=== PATIENT | female | born 1960 | race Caucasian/White ===

== ENCOUNTER → 2018-04-29 07:36 | Outpatient (CLI) | payer OTHER, SELFPAY ==
[2018-04-29 07:58] LABS: Absolute Lymphocyte Count 3.43 X10^3/ul (0.83-4.51); Basophil# 0.04 X10^3/uL; Basophil% 0.4 % (0-1); Eosinophil# 0.15 X10^3/uL; Eosinophils% 1.6 % (0-5); Hematocrit 39.5 % (37-47); Hemoglobin 12.9 g/dl (12.0-15.0); Lymphocyte # 3.43 X10^3/ul (4.0); Lymphocyte % 36.4 % (19-41); Mean Corp Hgb Conc 32.7 g/gl (32-36); Mean Corpuscular Hgb 30.3 pg (27.0-32.0); Mean Corpuscular Volume 92.7 fL (81-99); Mean Platelet Vol. 9.6 fl (6.2-12.0); Monocyte# 0.73 X10^3/uL; Monocyte% 7.7 % (0-10); Neutrophil # 5.04 X10^3/uL (2.7-7.7); Neutrophil % 53.6 % (47-70); Platelet Count 284 K/mm3 (150-450); RBC Distribution Width CV 12.3 % (11.6-14.6); RBC Distribution Width SD 40.8 fl (35.1-43.9); Red Blood Count 4.26 M/mm3 (4.2-5.4); White Blood Count 9.4 K/mm3 (4.4-11.0)
[2018-04-29 07:59] LABS: POSITIVE COUNT NO; POSITIVE DIFFERENTIAL NO; POSITIVE MORPHOLOGY NO
[2018-04-29 08:17] LABS: Hemoglobin A1c 7.4 % (4.2-6.3)
[2018-04-29 08:30] LABS: ALB/GLOB Ratio 0.8 RATIO (0.9-2.4); AST(SGOT) 18 U/L (15-37); Alanine Aminotransfer ALT/SGPT 39 U/L (13-56); Albumin, Serum 3.4 g/dL (3.2-5.0); Alkaline Phosphatase 90 U/L (45-117); Anion Gap 5 (5-15); BUN 17 mg/dL (7-18); BUN/Creat Ratio 14.9 RATIO (10-20); Calcium,Total 8.7 mg/dL (8.5-10.1); Chloride 106 mmol/L (98-107); Cholesterol 201 mg/dL (200); Creatinine, Serum 1.14 mg/dL (0.55-1.02); EST Glomerular Filtration Rate 52 mL/min (>60); Est Glom Filt Rate - Afr Amer 63 mL/min (>60); Estradiol 15.6 pg/mL; Globulin 4.1 g/dL (2.2-4.2); Glucose 159 mg/dL (74-106); High Density Lipoprotein 41 mg/dL; Potassium 4.5 mmol/L (3.5-5.1); Protein, Total 7.5 g/dL (6.4-8.2); Sodium Level 140 mmol/L (136-145); Triglycerides 283 mg/dL; Very Low Density Lipoprotein 57 mg/dL (5-40)
== END ==
PROVIDERS: Visit Provider Family Medicine
DX: I10 Essential (primary) hypertension (principal); E11.9 Type 2 diabetes mellitus without complications; R68.82 Decreased libido
CPT/HCPCS: 36415; 80053; 80061; 82670; 83036; 84443; 85025

== ENCOUNTER 2021-11-08 17:05 | Emergency (ER) | payer BC, SELFPAY ==
[2021-11-08 17:06] VITALS: BP 157/89; PULSE 93; RESP 16; TEMP 35.8; O2SAT 98; BMI 35.4
--- NOTE | 2021-11-08 18:06 | RAD_ITS ---
STUDY: X-RAY - LEFT FOOT CLINICAL: Female, 61 years old. Pain after trauma TECHNIQUE: 3 view(s) of the foot. COMPARISON: None. FINDINGS: Please see the impression. RAD/Foot min 3 Views IMPRESSION: No acute fracture or dislocation the left foot. Advanced osteoarthritis of the first MTP joint. Minimal distal Achilles enthesopathy. No radiopaque foreign body. Electronically Signed: Solo Burks MD at 19:10 EST ,
--- NOTE | 2021-11-08 18:35 | ED.VIS.LOWEX ---
HPI History of Present Illness Chief Complaint: Lower Extremity Injury Informant: patient Occured/Mechanism Mechanism/Context: Yes blunt trauma Onset/Context/Timing Onset: Today Context: Sudden Onset Quality of Pain: Sharp Current Severity: Mild Maximum Severity: Mild Associated Symptoms Associated Symptoms: Negative for Parasthesia, Weakness and Loss of Funtion Narrative Narrative: 61-year-old female was caring for her horse when it stepped on her left foot. Complaining of pain primarily the great toe. Has had prior surgeries to this foot and came in to have it evaluated. Prior similar symptoms: No Recent Illness/Hospitalization: No PFSH PFSH Medical History Depression Diabetes Hypertension Home Medications glimepiride 1 tab PO 0800 11/29/15 [History Last Taken Unknown] glimepiride [Amaryl] 1.5 tab PO DINNER 11/29/15 [History Last Taken Unknown] losartan 50 mg PO DAILY 11/29/15 [History Last Taken Unknown] metformin 1,000 mg PO BIDCM 11/29/15 [History Last Taken Unknown] metoprolol tartrate 25 mg PO BID #90 tablet 12/01/15 [Rx Last Taken Unknown] duloxetine 60 mg PO DAILY 11/08/21 [History Last Taken Unknown] Allergy/AdvReac Type Severity Reaction Status Date / Time levofloxacin [From Levaquin] Allergy Other Verified 11/08/21 17:06 ANTIBIOTICS AdvReac Other Uncoded 11/08/21 17:06 Social History Smoking Status: Never smoker ROS ROS ED ROS Narrative No recent illness. Review of Systems ROS Unobtainable: Denies due to encephalopathy Constitutional Constitutional ED: Denies fever(s) Eyes Eyes: Denies change in vision ENT ENT ED: Denies ear pain Cardiovascular Cardiovascular: Denies chest pain Respiratory/Chest Respiratory/Chest: Denies dyspnea Gastrointestinal Gastrointestinal: Denies abdominal pain Genitourinary Genitourinary ED: Denies dysuria Musculoskeletal Musculoskeletal: Denies myalgias Integumentary Denies rash Neurologic Neurologic: Denies headache(s) Psychiatric Psychiatric: Denies depression Endocrine Endocrinology: Denies polyuria Hematologic/Lymphatic Hematologic/Lymphatic: Denies easy bruising Allergic/Immunologic Allergic/Immunologic ED: Denies urticaria EXAM Physical Exam Narrative Exam Narrative: 61-year-old no acute distress vital signs stable afebrile. Exam normal except left foot is intact fusion to the left great toe. She is able to wiggle her toes. Normal touch sensation. Normal DP pulse. No gross bony deformity. Skins intact. No lacerations. Const Vital Signs: 11/08/21 17:06 Temperature 96.5 F L Temperature Source Temporal Pulse Rate 93 Respiratory Rate 16 Blood Pressure 157/89 H Blood Pressure Mean 111 Pulse Ox 98 Oxygen Delivery Method Room Air Positive well nourished and well developed; Negative for obese, cachectic, contractures or unkempt General Appearance ED: well developed and NAD; Negative for unkempt, cachectic or contractures Nutritional Appearance: Negative for cachectic or obese HEENT Reports moist mucous membranes normocephalic and atraumatic Eyes PERRL Neck full ROM and supple Thyroid: Negative for tender Chest Wall inspection of chest normal and palpation of chest normal Resp normal respiratory effort, no retractions and clear to auscultation bilaterally Auscultation: Negative for rales, rhonchi or wheezes Cardio regular rate, regular rhythm, S1 normal heart sound, S2 normal heart sound and no murmurs GI non-tender, non-distended and no masses Auscultation: normoactive bowel sounds Palpation: soft; Negative for tender or guarding Back/Spine no CVA tenderness General Back: Negative for CVA tenderness Cervical Spine: Negative for cervical spine tenderness Thoracic Spine / Upper Back: Negative for thoracic spinal tenderness Lumbar Spine / Lower Back: Negative for lumbar spinal tenderness or straight leg raise negative bilaterally Extremity normal to inspection and full ROM Extremity Narrative: Left foot tenderness great toe. Contusion. No gross bony deformity. Normal DP pulse. Skin intact. General Extremety ED: Negative for cyanosis or edema General Extremity: Negative for cyanosis or edema Neuro oriented x3 and moves all extremities Sensorium / Orientation: alert, oriented to person, oriented to place and oriented to time; Negative for orientation impaired, confused, lethargic or stuporous Motor Exam: strength 5/5 throughout Psych mental status grossly normal Appearance: Negative for unkempt Skin no wounds Lesions: no lesions Rashes: no rashes Trauma: Negative for laceration MDM MDM MDM Narrative Medical decision making narrative: Left foot versus worse. X-ray unremarkable. Discharged home. Ice and elevate. Radiography Diagnostic Testing: Left x-ray, 3 views, interpreted by myself shows no acute abnormality. No fracture or dislocation. Discussed and went over the films with the patient. Discharge Plan Triage Chief Complaint: Lower Extremity Injury ED Provider: Enrique Olivia Dx/Rx/DC Orders Clinical Impression: Contusion of foot, left, History of diabetes mellitus Instructions: ED Foot Contusion Prescriptions: No Action losartan 50 MG tablet 50 mg PO DAILY RF: 0 glimepiride 1 MG tablet 1 tab PO 0800 RF: 0 glimepiride [Amaryl] 1 MG tablet 1.5 tab PO DINNER RF: 0 metformin 1,000 MG tablet 1,000 mg PO BIDCM RF: 0 metoprolol tartrate 25 MG tablet 25 mg PO BID Qty: 90 RF: 0 duloxetine 60 mg capsule,delayed release(DR/EC) 60 mg PO DAILY RF: 0 Primary Care Provider: Emile Esposito Referrals: Emile Esposito MD [Primary Care Provider] - 1 Week if not improving Activity Restrictions/Additional Instructions: Ice and elevate left foot to decrease pain and swelling. Motrin for pain and swelling and Tylenol for pain. This should progressively improve if not getting better follow-up with your doctor to have her reevaluated. Disposition Disposition: Home, Self Care
--- NOTE | 2021-11-08 19:10 | ED.RN ---
GAVE SOCKS TO PT.
== END 2021-11-08 19:10 | disposition home or self-care (01) ==
PROVIDERS: Emergency Provider Emergency Medicine; PCP Family Medicine; Visit Provider Emergency Medicine
DX: S90.32XA Contusion of left foot, initial encounter (principal); E11.9 Type 2 diabetes mellitus without complications; I10 Essential (primary) hypertension; W55.12XA Struck by horse, initial encounter; Z79.899 Other long term (current) drug therapy; Z79.84 Long term (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 of oral hypoglycemic drugs
CPT/HCPCS: 73630; 99282

== ENCOUNTER 2022-05-17 17:09 | Inpatient (IN) | payer BC, SELFPAY ==
[2022-05-17] VITALS (17 sets, daily range): BP systolic 87–167; BP diastolic 51–140; PULSE 95–162; RESP 19–25; TEMP 36.5–36.9; O2SAT 96–99; BMI 37.2; BMI 35.9
--- NOTE | 2022-05-17 17:41 | EKG12_ITS ---
Test Reason : PALPITATIONS Blood Pressure : / mmHG Vent. Rate : 154 BPM Atrial Rate : 000 BPM P-R Int : 000 ms QRS Dur : 086 ms QT Int : 246 ms P-R-T Axes : 000 -37 087 degrees QTc Int : 394 ms Atrial fibrillation with rapid ventricular response Left axis deviation Moderate voltage criteria for LVH, may be normal variant ( R in aVL , Glouster product ) Possible Anterior infarct , age undetermined Abnormal ECG Confirmed by SANJU MEEHAN, ARIE ([id number]), make up editor GABRIEL DURHAM ([id number]) on 05/18/2022 9:51:07 AM Referred By: SHERRY Confirmed By:ARIE BILLS MD
--- NOTE | 2022-05-17 17:43 | EDS_ITS ---
HPI History of Present Illness Chief Complaint: Palpitations Informant: patient Narrative Narrative: 3-year-old female presenting to the emergency room with chief complaint of tachycardia. Patient states that for the past several days she has been dealing with her allergies. She has been using some Primatene mist. She states that she is noticed that she has had more fatigue and difficulty climbing stairs with shortness of breath. Tonight she checked her pulse and pulse oximeter and her heart rate was variable and very fast. She has no history of atrial fibrillation. She notes a history of hypertension and diabetes. No syncope. She states that she recently had blood work done as part of her physical and everything seemed fine. [facility] Medical History Depression Diabetes Hypertension Home Medications glimepiride 1 mg tablet 1 tab PO BID 11/29/15 [History Last Taken Unknown] losartan 50 mg tablet 100 mg PO DAILY 11/29/15 [History Last Taken Unknown] duloxetine 60 mg capsule,delayed release 120 mg PO DAILY 11/08/21 [History Last Taken Unknown] sitagliptin 50 mg-metformin ER 1,000 mg tablet,extended release 24h mp (Janumet XR) 1 tab PO DAILY 05/17/22 [History Last Taken Unknown] trazodone 100 mg tablet 100 mg PO DAILY 05/17/22 [History Last Taken Unknown] triamterene 37.5 mg-hydrochlorothiazide 25 mg tablet 1 tab PO DAILY 05/17/22 [History Last Taken Unknown] Allergy/AdvReac Type Severity Reaction Status Date / Time levofloxacin [From Levaquin] Allergy Other Verified 05/17/22 17:09 ANTIBIOTICS AdvReac Other Uncoded 05/17/22 17:09 Social History (Updated 05/17/22 @ 17:[address] Angel Melendrez DO) Smoking Status: Never smoker substance use type: does not use ROS ROS ED Constitutional Constitutional ED: Denies chills or weight loss Eyes Eyes: Denies change in vision or diplopia ENT ENT ED: Reports rhinorrhea; Denies ear pain or sore throat Cardiovascular Cardiovascular: Denies chest pain, orthopnea, palpitations or racing heartbeat Respiratory/Chest Respiratory/Chest: Reports cough, dyspnea and dyspnea on exertion; Denies orthopnea Gastrointestinal Gastrointestinal: Denies abdominal pain, diarrhea, nausea or vomiting Genitourinary Genitourinary ED: Denies dysuria, hematuria or urinary frequency Musculoskeletal Musculoskeletal: Denies arthralgias or myalgias Integumentary Denies abscess or rash Neurologic Neurologic: Denies headache(s) or weakness Psychiatric Psychiatric: Denies anxiety, depression, suicidal ideation or suicidal thoughts Endocrine Endocrinology: Denies polydipsia, polyphagia or polyuria Allergic/Immunologic Allergic/Immunologic ED: Denies mouth swelling, tongue swelling or urticaria EXAM Physical Exam Const Vital Signs: 05/17/22 17:09 05/17/22 17:23 05/17/22 18:04 Temperature 98.5 F Temperature Source Temporal Pulse Rate 162 H 114 H Respiratory Rate 25 H 21 H Respiratory Effort Short of Breath Blood Pressure 124/92 H 113/80 Blood Pressure Mean 102 91 Pulse Ox 99 97 Oxygen Delivery Method Room Air Room Air 05/17/22 18:15 Temperature 98.5 F Temperature Source Temporal Pulse Rate 114 H Respiratory Rate 21 H Respiratory Effort Blood Pressure 113/80 Blood Pressure Mean 91 Pulse Ox 97 Oxygen Delivery Method Room Air Positive well nourished, well developed and obese General Appearance ED: well developed Nutritional Appearance: obese HEENT Reports normocephalic, head/scalp atraumatic and moist mucous membranes Eyes PERRL and EOMs intact bilaterally Neck no lymphadenopathy, supple and no JVD Resp normal respiratory effort and clear to auscultation bilaterally Cardio no murmurs Rate: tachycardic Rhythm: abnormal rhythm irregularly irregular GI normal to inspection, nondistended, normoactive bowel sounds and non-tender Palpation: soft Back/Spine no CVA tenderness and normal ROM Extremity normal to inspection General Extremety ED: Negative for edema General Extremity: Negative for edema Neuro oriented x3 and CN's II-XII intact bilaterally Sensorium / Orientation: alert Motor Exam: strength 5/5 throughout Psych mental status grossly normal Mood & Affect: Negative for depressed or tearful Skin no rashes or lesions noted and no wounds MDM MDM MDM Narrative Medical decision making narrative: Patient was placed on Cardizem drip given aspirin and Lovenox. She has been responding well to the Cardizem. My impression of the chest x-ray is cardiomegaly. Otherwise no acute process. Hemoglobin 12.2. Normal coags. TSH 1.15. Troponin is 43. Glucose significantly elevated at 309 with creatinine of 1.6. Plan is admission into hospital for further management. Lab Data Attestation: I reviewed the patient's lab results. Labs: Laboratory Results - last 24 hr 05/17/22 05/17/22 05/17/22 17:22 17:22 17:22 WBC 10.7 RBC 3.94 L Hgb 12.2 Hct 38.1 MCV 96.7 MCH 31.0 MCHC 32.0 RDW Std Deviation 44.8 H RDW Coeff of Patricia 12.9 Plt Count 331 MPV 9.6 Immature Gran % (Auto) 0.200 Neut % (Auto) 67.8 Lymph % (Auto) 22.8 [place] % (Auto) 7.9 Eos % (Auto) 0.7 Baso % (Auto) 0.6 Absolute Neuts (auto) 7.3 Absolute Lymphs (auto) 2.44 Nucleated RBC % 0 PT 14.4 INR 1.2 APTT 34.5 Sodium 136 Potassium 4.4 Chloride 101 Carbon Dioxide 28.0 Anion Gap 7 BUN 25 H Creatinine 1.60 H Estim Creat Clear Calc 30.93 Est GFR (MDRD) Af Amer 42 L Est GFR (MDRD) Non-Af 35 L BUN/Creatinine Ratio 15.6 Glucose 309 H Calcium 8.9 Magnesium 1.8 Total Bilirubin 0.30 AST 21 ALT 40 Alkaline Phosphatase 87 Troponin I High Sens 43 Total Protein 7.3 Albumin 3.4 Globulin 3.9 Albumin/Globulin Ratio 0.9 TSH 1.15 Radiography Diagnostic Testing: Clinical Impression(s) from Imaging Studies Chest X-Ray 05/17/22 17:51 IMPRESSION: Cardiac enlargement. No focal infiltrate or edema. Electronically Signed: Gunner Harmon MD at 18:10 EDT , EKG Initial EKG: Attestation: I personally reviewed and interpreted this EKG as follows: Comments: Atrial fibrillation with rapid ventricular response at a rate of 154 bpm Discharge Plan Dx/Rx/DC Orders Clinical Impression: Hypertension, Type II diabetes mellitus, Atrial fibrillation, new onset Disposition Disposition: Acute Care [facility]
--- NOTE | 2022-05-17 17:51 | RAD_ITS ---
STUDY: X-RAY CHEST REASON FOR EXAM: Female, 61 years old. Chest pain TECHNIQUE: Single AP portable view of the chest. COMPARISON: November 29, 2015 FINDINGS: The lungs are clear and expanded. There is no demonstrated pleural abnormality. There is mild cardiac enlargement. Normal mediastinum and yoel. Normal visualized pulmonary arteries. Normal visualized aortic arch and descending thoracic aorta. Normal visualized thoracic spine. There is degenerative osteoarthritis of the bilateral shoulders. There is no demonstrated abnormality of the visualized soft tissue structures of the upper abdomen. RAD/Chest 1 View (Portable) IMPRESSION: Cardiac enlargement. No focal infiltrate or edema. Electronically Signed: Gunner Harmon MD at 18:10 EDT ,
[2022-05-17 17:52] LABS: Absolute Lymphocyte Count 2.44 X10^3/uL (0.83-4.51); Absolute Neutrophil Count 7.3 X10^3/uL (2.0-7.7); Basophil# 0.06 X10^3/uL; Basophil% 0.6 % (0-1); Eosinophil# 0.08 X10^3/uL; Eosinophils% 0.7 % (0-5); Hematocrit 38.1 % (37-47); Hemoglobin 12.2 g/dL (12.0-15.0); Lymphocyte # 2.44 X10^3/ul (0.83-4.51); Lymphocyte % 22.8 % (19-41); Mean Corpuscular Volume 96.7 fL (81-99); Mean Platelet Vol. 9.6 fl (6.2-12.0); Monocyte# 0.85 X10^3/uL; Monocyte% 7.9 % (0-10); NRBC Flagged by Analyzer 0 % (0-5); Neutrophil # 7.27 X10^3/uL (2.7-7.7); Neutrophil % 67.8 % (47-70); Platelet Count 331 K/mm3 (150-450); RBC Distribution Width CV 12.9 % (11.6-14.6); RBC Distribution Width SD 44.8 fl (35.1-43.9); Red Blood Count 3.94 M/mm3 (4.2-5.4); White Blood Count 10.7 K/mm3 (4.4-11.0)
[2022-05-17] MEDS: dilTIAZem 25 MG/5 ML Vial 10 MG IV BOLUS (17:58)
[2022-05-17] MEDS: Enoxaparin 100 MG/ML Syringe SC (17:58)
[2022-05-17] MEDS: Aspirin 325 MG Tablet PO (17:58)
[2022-05-17 17:59] LABS: International Normalized Ratio 1.2; Prothrombin Time (Protime)PT. 14.4 SECONDS (11.7-14.9)
[2022-05-17 18:00] LABS: Partial Thromboplast Time 34.5 Seconds (24.1-36.2)
--- NOTE | 2022-05-17 18:15 | PCM.HP.STD ---
HPI - General General Date of Admission: 05/17/22 Date of Service: 05/17/22 Chief Complaint: Racing heart/palpitations. HPI Narrative The patient is a 61 y/o F w/ PMHx: CKD stage III, Obesity, Depression and Anxiety, Diabetes mellitus type II, Migraine headaches, Prior episodes sinus tachycardia who presents to the [facility] ED on 05/17/22 with history of racing heart rates with palpitations reportedly over the last several days with significant allergies recently with utilization of Primatene Mist with increased fatigue as well as shortness of breath noted more so when she is trying to exert her self with self pulse ox and oximeter check prior to ED presentation with significantly variable and fast heart rate with prior history as noted above to sinus tachycardia but no prior atrial fibrillation with recent outpatient annual physical with reportedly normal labs and evaluation however given this was not improving and new prompted ED evaluation. Patient denies any dizziness/lightheadedness/presyncopal type symptoms port associated midsternal chest pressure without radiation, describing it as if something was sitting on her chest rated in severity 8 out of 10 when her heart was racing more aggressively, improved now down to 4 out of 10 with no associated diaphoresis, dyspnea, nausea or emesis. She denies any recent fever, chills, headaches, body aches/myalgias, nausea, emesis, diarrhea but does state recent congestion and sinus type issues with her allergies. Work-up in the ED included T98.5, heart rate 162, BP 124/92, respiratory rate 25, 99% on room air, CBC with WC 10.7, hemoglobin 12.2, platelet 331 without marked shift, coags unremarkable, CMP with BUN/creat 25/1.60, glucose 309 otherwise unremarkable, magnesium 1.8, troponin 43, TSH 1.15, chest x-ray with cardiac enlargement with no other acute cardiopulmonary finding, EKG atrial fibrillation with RVR. In the ED patient ministered aspirin 325 mg p.o. x1, Cardizem 10 mg IV bolus eventually followed by initiation of Cardizem drip as well as Lovenox 100 mg subcu x1. [facility] Medical History (Updated 05/17/22 @ 19:[address] Nathaly Muniz MD) Atrial fibrillation, new onset HLD (hyperlipidemia) Hypertension Migraine headache Obesity Type II diabetes mellitus Home Medications glimepiride 1 mg tablet 1 tab PO BID 03/19/16 [History Last Taken Unknown] losartan 50 mg tablet 100 mg PO DAILY 11/29/15 [History Last Taken Unknown] duloxetine 60 mg capsule,delayed release 120 mg PO DAILY 11/08/21 [History Last Taken Unknown] sitagliptin 50 mg-metformin ER 1,000 mg tablet,extended release 24h mp (Janumet XR) 1 tab PO DAILY 05/17/22 [History Last Taken Unknown] trazodone 100 mg tablet 100 mg PO DAILY 05/17/22 [History Last Taken Unknown] triamterene 37.5 mg-hydrochlorothiazide 25 mg tablet 1 tab PO DAILY 05/17/22 [History Last Taken Unknown] Allergy/AdvReac Type Severity Reaction Status Date / Time levofloxacin [From [facility]] Allergy Other Verified 05/17/22 17:09 ANTIBIOTICS AdvReac Other Uncoded 05/17/22 17:09 Family History (Updated 05/17/22 @ 19:[address] Nathaly Muniz MD) Mother Diabetes Psoriatic arthritis Rheumatoid arthritis Father COPD (chronic obstructive pulmonary disease) With concurrent tobacco use history. Myocardial infarction Heart disease Surgical History (Updated 05/17/22 @ 19:[address] Nathaly Muniz MD) History of foot surgery Social History (Updated 05/17/22 @ 19:[address] Nathaly Muniz MD) household members: spouse Smoking Status: Never smoker alcohol intake: never substance use type: does not use ROS ROS Narrative Admission Review of Systems: CONSTITUTIONAL: No weight loss, fever, chills, + weakness or fatigue. HEENT: + Congestion/sneezing/rhinitis issues Eyes: No visual loss, blurred vision, double vision or yellow sclerae. Ears, Nose, Throat: No hearing loss, sore throat. SKIN: No rash or itching, lesions, wounds. CARDIOVASCULAR: + Midsternal chest pressure, racing heart/palpitations, No edema, orthopnea, syncopal events. RESPIRATORY: No shortness of breath, cough or sputum, wheezing, hemoptysis. GASTROINTESTINAL: No anorexia, nausea, vomiting or diarrhea, abdominal pain, melena, BRBPR. GENITOURINARY: No dysuria, frequency, urgency or retention. NEUROLOGICAL: No headache, dizziness, syncope, paralysis, ataxia, numbness or tingling in the extremities, focal weakness, change in bowel or bladder control, seizure. MUSCULOSKELETAL: No muscle, back pain, joint pain or stiffness. HEMATOLOGIC: No anemia, bleeding or bruising. LYMPHATICS: No enlarged nodes. No history of splenectomy. PSYCHIATRIC: + history of depression or anxiety. ENDOCRINOLOGIC: No reports of sweating, cold or heat intolerance. No polyuria or polydipsia. ALLERGIES: No history of asthma, hives, eczema or rhinitis. Vital Signs Vital Signs Vital Signs: 05/17/22 17:09 05/17/22 17:23 05/17/22 18:04 Temperature 98.5 F Temperature Source Temporal Pulse Rate 162 H 114 H Respiratory Rate 25 H 21 H Respiratory Effort Short of Breath Blood Pressure 124/92 H 113/80 Blood Pressure Mean 102 91 Pulse Ox 99 97 Oxygen Delivery Method Room Air Room Air Weight Weight: 210 lb 5.136 oz Body Mass Index (BMI) 37.2 Physical Exam Narrative Physical Examination: General: Awake, alert, oriented x 3 and cooperative, seated upright in ED bed in no apparent distress, notes as heart rate has improved chest pressure has lessened. Skin: Normal color, normal turgor, no icterus, no cyanosis. HEENT: AT/NC, EOMI, PERRLA, MMM, no carotid bruits or JVD noted; however, thickened neck makes evaluation difficult. Lungs: CTA bilaterally, moderate effort, mild decrease BL bases, no rales, ronchi or wheezing. Heart: Irregular irregular; no gallop, rub audible. Abdomen: Soft, obese NTTP, ND, distant normal BS, no obvious HSM; however, habitus makes evaluation difficult. Extremities: No cyanosis, clubbing, or edema. Neurological: Patient awake, alert, oriented as noted, cognitive function intact; pupils equally reactive to light and accommodation, cranial nerves II-XII grossly normal, moving all 4 extremities, no focal deficits, strength mildly to moderately globally decreased secondary to acute presentation. Psychiatric: Affect appears fatigued otherwise normal, no acute evidence of depressive or anxiety feelings. Results Lab / Micro Data Result Diagrams: 05/17/22 17:22 05/17/22 17:22 Labs: Laboratory Results - last 24 hr 05/17/22 17:22: WBC 10.7, RBC 3.94 L, Hgb 12.2, Hct 38.1, MCV 96.7, MCH 31.0, MCHC 32.0, RDW Std Deviation 44.8 H, RDW Coeff of Patricia 12.9, Plt Count 331, MPV 9.6, Immature Gran % (Auto) 0.200, Neut % (Auto) 67.8, Lymph % (Auto) 22.8, [place] % (Auto) 7.9, Eos % (Auto) 0.7, Baso % (Auto) 0.6, Absolute Neuts (auto) 7.3, Absolute Lymphs (auto) 2.44, Nucleated RBC % 0 05/17/22 17:22: PT 14.4, INR 1.2, APTT 34.5 Radiology Impression Chest X-Ray 05/17/22 17:51 IMPRESSION: Cardiac enlargement. No focal infiltrate or edema. Electronically Signed: Gunnre Harmon MD at 18:10 EDT , Assessment & Plan Assessment/Plan (1) Atrial fibrillation with RVR: PLAN: Plan The patient is a 61 y/o F w/ PMHx: CKD stage III, Obesity, Depression and Anxiety, Diabetes mellitus type II, Migraine headaches, Prior episodes sinus tachycardia who presents to the [facility] ED on 05/17/22 with history of racing heart rates with palpitations and chest pressure reportedly over the last several days with significant allergies recently with utilization of Primatene Mist with increased fatigue as well as shortness of breath noted more so when she is trying to exert her self with self pulse ox and oximeter check prior to ED presentation with significantly variable and fast heart rate with prior history as noted above to sinus tachycardia but no prior atrial fibrillation with recent outpatient annual physical with reportedly normal labs and evaluation however given this was not improving and new prompted ED evaluation. #1. New onset, Paroxsymal atrial fibrillation w/ chest pressure: EKG in ED w/ atrial fibrillation w/ RVR. Patient administered Cardizem bolus as well as drip and therapeutic Lovenox in the ED. Will admit to PCU, maintain on telemetry, obtain cardiac enzyme serial set, magnesium level and TSH levels normal in the ED, obtain ECHO, CHADs scoring appropriate for anticoagulation start at this time with dosage already administered in the ED of Lovenox therapeutic regimen which will be continued with investigation in a.m. for oral transition cost with case management consultation, additionally we will continue Cardizem drip with oral transition over the next 24 hours. COVID testing also requested. Evaluation with overnight pulse oximeter/trending ordered in case of JAMAAL. Denies heavy caffeine usage. #2. Acute Renal Insufficiency on CKD stage III unclear subtype versus progressive renal disease: Admission BUN/Cr 25/1.60, prior GFR from previous records primarily in the upper 50s with prior baseline creatinine 1.14 however the most recent testing done was 04/29/2018 1.14 at that time but was similar to it also on the of the year prior, will judiciously hydrate and repeat level in AM. #3. Diabetes mellitus type II w/ Hyperglycemia: Hold oral home regimen, given BS upon presentation will obtain HgbA1c and request nutrition consultation, ADA diet, accu checks w/ ISS. #4. Hypertension: BP in the ED with systolic appropriate however diastolic is mildly elevated, recently initiated on Cardizem drip, continue to monitor and if appropriate will add back patient losartan and could consider overlap with patient's home metoprolol regimen which likely will need to be increased given acute presentation, PRN hydralazine. #5. Anxiety and depression: We will continue patient home duloxetine regimen. #6. Chronic migraines: From review of list patient is not on any chronic migraine regimen, is not on propranolol blood on as noted metoprolol which was started previously for hypertension and noted sinus tachycardia at that time. #7. Possible JAMAAL: Patient significant reports descriptions concerning for JAMAAL, patient denies, will place on trending pulse oximeter as certainly could contribute to #1 presentation. #8. DVT prophylaxis: SCDs, continue therapeutic Lovenox as noted. Charges/Coding Visit Charges Inpatient E&M: 58239 Init Hosp L3
[2022-05-17 18:18] LABS: ALB/GLOB Ratio 0.9 RATIO (0.9-2.4); AST(SGOT) 21 U/L (15-37); Alanine Aminotransfer ALT/SGPT 40 U/L (13-56); Albumin, Serum 3.4 g/dL (3.2-5.0); Alkaline Phosphatase 87 U/L (45-117); Anion Gap 7 (5-15); BUN 25 mg/dL (7-18); BUN/Creat Ratio 15.6 RATIO (10-20); Calcium,Total 8.9 mg/dL (8.5-10.1); Chloride 101 mmol/L (98-107); EST Glomerular Filtration Rate 35 mL/min (>60); Est Glom Filt Rate - Afr Amer 42 mL/min (>60); Estimated Creatinine Clearance 30.93 ml/min; Globulin 3.9 g/dL (2.2-4.2); Glucose 309 mg/dL (74-106); Magnesium 1.8 mg/dL (1.6-2.6); Potassium 4.4 mmol/L (3.5-5.1); Protein, Total 7.3 g/dL (6.4-8.2); Sodium Level 136 mmol/L (136-145); Thyroid Stim Hormone (TSH) 1.15 uIU/mL (0.358-3.74); Troponin-I HS 43 pg/mL (3.0-54.0)
--- NOTE | 2022-05-17 19:19 | ECHOCS_ITS ---
Reason For Study: PAF Procedure This was a 2D Doppler, Color Flow transthoracic echocardiogram. The study was technically difficult. Contrast injection was performed. Exam performed portable in patient room. Left Ventricle Normal LV size. The estimated ejection fraction is 30 %. There is moderate to severe global hypokinesis of the left ventricle. Right Ventricle Normal RV size. Normal systolic function. Atria Normal left atrium. Normal right atrium. Mitral Valve Normal mitral valve. Tricuspid Valve Normal tricuspid valve. Mild (1+) tricuspid valve insufficiency. Pulmonary artery systolic pressure is 34 mmHg. Aortic Valve Trisinus/trileaflet aortic valve. Pulmonic Valve The pulmonic valve is not well visualized. Great Vessels Normal aortic root. The pulmonary artery is normal size. Normal inferior vena cava. Pericardium/Pleural No pericardial effusion. Medication Diluted definity 1ml given slow IV push to enhance endocardial definition. MMode/2D Measurements & Calculations LVIDd: 4.9 cm IVSd: 1.0 cm Ao root diam: 3.4 cm LVIDs: 4.3 cm LVPWd: 1.6 cm RVDd: 3.5 cm FS: 10.5 % LAV(MOD-bp): 61.1 ml LVAd ap4: 36.9 cm2 SV(MOD-sp4): 32.6 ml LAV(MOD-bp) Indexed: 31.1 ml/m2 LVLd ap4: 8.1 cm LAV(MOD-sp2): 58.4 ml EDV(MOD-sp4): 137.8 ml LAV(MOD-sp4): 64.6 ml EDV(sp4-el): 142.9 ml LVAs ap4: 32.1 cm2 LVLs ap4: 8.2 cm ESV(MOD-sp4): 105.2 ml ESV(sp4-el): 106.8 ml EF(MOD-sp4): 23.7 % EF(sp4-el): 25.3 % SV(sp4-el): 36.1 ml LA A4 area: 22.1 cm2 LA dimension(2D): 4.4 cm RA A4 area: 18.8 cm2 Doppler Measurements & Calculations MV E max rayo: 118.4 cm/sec Ao V2 max: 132.5 cm/sec LV V1 max: 94.4 cm/sec Ao max P.1 mmHg LV V1 max P.7 mmHg Ao V2 mean: 99.0 cm/sec LV V1 mean P.1 mmHg Ao mean P.4 mmHg LV V1 mean: 66.8 cm/sec Ao V2 VTI: 23.4 cm LV V1 VTI: 13.8 cm PA V2 max: 89.8 cm/sec TR max rayo: 273.1 cm/sec TR max P.9 mmHg ECHO/Echo Complete W/ Contrast Interpretation Summary Normal LV size. The estimated ejection fraction is 30 %. There is moderate to severe global hypokinesis of the left ventricle. Contrast injection was performed. Ordering Physician: Nathaly Muniz Referring Physician: NANDO RODRIGUEZ Performed By: Beba Benjamin RCS
[2022-05-17 20:22] LABS: Troponin-I HS 40 pg/mL (3.0-54.0)
[2022-05-17] MEDS: 0.9% Normal Saline 1,000 ML 100 ML IV (20:58)
[2022-05-17] MEDS: traZODone 100 MG Tablet PO (20:58)
[2022-05-17] MEDS: DULoxetine Hcl 60 MG Capsule 120 MG PO (20:59)
[2022-05-17] MEDS: Insulin Lispro 100 UNIT/ML INSULN.PEN SC (22:44)
[2022-05-17 22:55] LABS: Bedside Glucose 233 mg/dL (74-106)
[2022-05-18] VITALS (39 sets, daily range): BP systolic 101–159; BP diastolic 62–112; PULSE 78–125; RESP 18–31; TEMP 36.6–37.2; O2SAT 86–100
[2022-05-18 06:10] LABS: Absolute Lymphocyte Count 2.74 X10^3/uL (0.83-4.51); Absolute Neutrophil Count 5.2 X10^3/uL (2.0-7.7); Basophil# 0.07 X10^3/uL; Basophil% 0.8 % (0-1); Eosinophil# 0.14 X10^3/uL; Eosinophils% 1.6 % (0-5); Hematocrit 36.4 % (37-47); Hemoglobin 11.4 g/dL (12.0-15.0); Lymphocyte # 2.74 X10^3/ul (0.83-4.51); Lymphocyte % 30.5 % (19-41); Mean Corp Hgb Conc 31.3 g/dL (32-36); Mean Corpuscular Hgb 29.9 pg (27.0-32.0); Mean Corpuscular Volume 95.5 fL (81-99); Mean Platelet Vol. 9.4 fl (6.2-12.0); Monocyte# 0.82 X10^3/uL; Monocyte% 9.1 % (0-10); NRBC Flagged by Analyzer 0 % (0-5); Neutrophil # 5.18 X10^3/uL (2.7-7.7); Neutrophil % 57.7 % (47-70); Platelet Count 301 K/mm3 (150-450); RBC Distribution Width CV 12.9 % (11.6-14.6); RBC Distribution Width SD 44.9 fl (35.1-43.9); Red Blood Count 3.81 M/mm3 (4.2-5.4)
[2022-05-18 06:48] LABS: ALB/GLOB Ratio 0.8 RATIO (0.9-2.4); AST(SGOT) 16 U/L (15-37); Alanine Aminotransfer ALT/SGPT 36 U/L (13-56); Albumin, Serum 2.9 g/dL (3.2-5.0); Alkaline Phosphatase 71 U/L (45-117); Anion Gap 9 (5-15); BUN 24 mg/dL (7-18); Calcium,Total 8.3 mg/dL (8.5-10.1); Chloride 104 mmol/L (98-107); Cholesterol 136 mg/dL (200); Creatinine, Serum 1.26 mg/dL (0.55-1.02); EST Glomerular Filtration Rate 46 mL/min (>60); Est Glom Filt Rate - Afr Amer 56 mL/min (>60); Globulin 3.6 g/dL (2.2-4.2); Glucose 195 mg/dL (74-106); High Density Lipoprotein 40 mg/dL; Potassium 4.3 mmol/L (3.5-5.1); Protein, Total 6.5 g/dL (6.4-8.2); Sodium Level 138 mmol/L (136-145); Triglycerides 118 mg/dL; Very Low Density Lipoprotein 24 mg/dL (5-40)
[2022-05-18] MEDS: Insulin Lispro 100 UNIT/ML INSULN.PEN SC ×4 (06:49→21:32)
[2022-05-18 07:10] LABS: Bedside Glucose 221 mg/dL (74-106)
[2022-05-18 07:18] LABS: Troponin-I HS 42 pg/mL (3.0-54.0)
--- NOTE | 2022-05-18 07:28 | PN.HOSP_ITS ---
Subjective Subjective Patient is a 61-year-old gentleman presented with shortness of breath fatigue and palpitations. EKG demonstrated new onset A. fib with RVR admitted to a monitored bed for subsequent management Objective Data Objective Data Vital Signs: Vital Signs Temp Pulse Resp BP Pulse Ox O2 Del Method O2 Flow Rate 97.8 F 92 21 H 139/78 H 91 Room Air 2 05/18/22 04:00 05/18/22 06:38 05/18/22 06:00 05/18/22 06:00 05/18/22 06:00 05/18/22 06:00 05/18/22 04:00 Oxygen Flow Rate (L/min) 2 Oxygen Delivery Method Room Air Weight: 94.8 kg Body Mass Index (BMI) 35.9 Intake & Output: Intake and Output for Last 24 Hours 05/16/22 05/17/22 05/18/22 23:59 23:59 23:59 Intake Total 74.67 / 477.17 662.50 / 662.50 Output Total 1000 / 1000 Balance 74.67 / -122.83 -337.50 / -337.50 Lab / Micro Data Result Diagrams: 05/18/22 05:53 05/18/22 05:53 Labs: Laboratory Results - last 24 hr 05/17/22 17:22: WBC 10.7, RBC 3.94 L, Hgb 12.2, Hct 38.1, MCV 96.7, MCH 31.0, MCHC 32.0, RDW Std Deviation 44.8 H, RDW Coeff of Patricia 12.9, Plt Count 331, MPV 9.6, Immature Gran % (Auto) 0.200, Neut % (Auto) 67.8, Lymph % (Auto) 22.8, [place] % (Auto) 7.9, Eos % (Auto) 0.7, Baso % (Auto) 0.6, Absolute Neuts (auto) 7.3, Absolute Lymphs (auto) 2.44, Nucleated RBC % 0 05/17/22 17:22: PT 14.4, INR 1.2, APTT 34.5 05/17/22 17:22: Sodium 136, Potassium 4.4, Chloride 101, Carbon Dioxide 28.0, Anion Gap 7, BUN 25 H, Creatinine 1.60 H, Estim Creat Clear Calc 30.93, Est GFR (MDRD) Af Amer 42 L, Est GFR (MDRD) Non-Af 35 L, BUN/Creatinine Ratio 15.6, Glucose 309 H, Calcium 8.9, Magnesium 1.8, Total Bilirubin 0.30, AST 21, ALT 40, Alkaline Phosphatase 87, Troponin I High Sens 43, Total Protein 7.3, Albumin 3.4, Globulin 3.9, Albumin/Globulin Ratio 0.9, TSH 1.15 05/17/22 19:56: Troponin I High Sens 40 05/17/22 22:30: POC Glucose 233 H 05/18/22 05:53: WBC 9.0, RBC 3.81 L, Hgb 11.4 L, Hct 36.4 L, MCV 95.5, MCH 29.9, MCHC 31.3 L, RDW Std Deviation 44.9 H, RDW Coeff of Patricia 12.9, Plt Count 301, MPV 9.4, Immature Gran % (Auto) 0.300, Neut % (Auto) 57.7, Lymph % (Auto) 30.5, [place] % (Auto) 9.1, Eos % (Auto) 1.6, Baso % (Auto) 0.8, Absolute Neuts (auto) 5.2, Absolute Lymphs (auto) 2.74, Nucleated RBC % 0 05/18/22 05:53: Sodium 138, Potassium 4.3, Chloride 104, Carbon Dioxide 25.0, An ion Gap 9, BUN 24 H, Creatinine 1.26 H, Estim Creat Clear Calc 41.00, Est GFR (MDRD) Af Amer 56 L, Est GFR (MDRD) Non-Af 46 L, BUN/Creatinine Ratio 19.0, Glucose 195 H, Calcium 8.3 L, Total Bilirubin 0.60, AST 16, ALT 36, Alkaline Phosphatase 71, Total Protein 6.5, Albumin 2.9 L, Globulin 3.6, Albumin/Globulin Ratio 0.8 L, Triglycerides 118, Cholesterol 136, LDL Cholesterol 72, VLDL Cholesterol 24, HDL Cholesterol 40 05/18/22 05:53: Troponin I High Sens 42 05/18/22 06:47: POC Glucose 221 H Micro: Microbiology 05/17/22 18:19 Nasal Secretion SARS-CoV-2 Antigen (Rapid) - Final Radiography Diagnostic Testing: Radiology Impression Chest X-Ray 05/17/22 17:51 IMPRESSION: Cardiac enlargement. No focal infiltrate or edema. Electronically Signed: Gunner Harmon MD at 18:10 EDT , Physical Exam Narrative GENERAL: cooperative HEENT: Atraumatic; EYES; Anicteric, Normal Conjunctiva NECK; supple, normal thyroid, RESPIRATORY: Diminished to auscultation CARDIOVASCULAR: Irregular S1-S2 GI: soft, normoactive bowel sounds, : No Renal angle tenderness; EXTREMITIES: No edema, no clubbing, MUSCULOSKELETAL: no muscle wasting NEURO: Awake; no lateralizing signs. SKIN: No Rash PSYCH; Flat affect Assessment & Plan Assessment/Plan (1) Atrial fibrillation with RVR: PLAN: Plan Patient is a 61-year-old gentleman presented with shortness of breath fatigue and palpitations. EKG demonstrated new onset A. fib with RVR admitted to a monitored bed for subsequent management 1. New onset A. fib with RVR ? Admitted to a monitored bed managed with Cardizem drip with plans to transition to oral Cardizem. As part of his management ordered serial cardiac enzymes 2D echo. Patient seen still remains in A. fib with RVR Cardizem drip had to be adjusted. 2. Chest pressure ? Patient to undergo nuclear stress test on 05/19/2022 3. Acute renal insufficiency ? Baseline creatinine 1.14 creatinine on admission was 1.6 managed with IV fluids creatinine down to 1.26 as of 05/18/2022 4. Hypertension - Blood pressure controlled, home medications continued with dose adjustment as needed 5. Diabetes mellitus type II -patient's oral hypoglycemics held. Placed on long acting insulin, Accu-Cheks a.c. and at bedtime and covered with sliding scale insulin 6. Depression with anxiety ? Patient is on duloxetine did continue 7. Chronic migraine ? Currently stable 8. Suspected obstructive sleep apnea ? Patient to undergo sleep study as outpatient 9. Class II obesity with BMI of 36 ? Weight loss advised 10. DVT prophylaxis -on systemic anticoagulation with Lovenox Charges/Coding Visit Charges Inpatient E&M: 62753 Subs Hosp L3
[2022-05-18 07:55] LABS: Hemoglobin A1c 8.7 % (3.8-5.6)
[2022-05-18] MEDS: Enoxaparin 100 MG/ML Syringe SC (09:19)
--- NOTE | 2022-05-18 09:50 | CASEMGMT ---
RN CM Face to Face with patient for initial transition planning/care coordination assessment. RN CM introduced self and role at [facility]. Patient lying in bed, alert and oriented, fiance at bedside. Patient willing to participate in assessment and is able to answer all questions appropriately. Care providers, pharmacy, and demographics verified. Patient wishes to discharge home, denies need for home health at this time. Patient states she has no further needs or concerns at this time. CM to follow for discharge planning needs that may arise. PCP: Francisca Specialists: none Preferred Pharmacy: [facility] Insurance: [employer] Prescription Benefit: yes Living Will/HPOA: yes, fiance Dominic GIOVANNI Gardiner LNOK: Fiance Living Arrangements: Patient lives with eliane in a 2 story home, patient is able to ambulate stairs but also has stair lift. Patient is independent at home. Transportation: self, fiance DME/HHC: Patient states she has walker and grab bars at home. Patient has portable concentrator that was her fathers. No previous HHC or SNF. Disposition Plan: Patient to discharge home with family support and follow-up plans in place. Radha DELACRUZ, RN, CM
[2022-05-18 11:41] LABS: Bedside Glucose 242 mg/dL (74-106)
--- NOTE | 2022-05-18 14:50 | CASEMGMT ---
According to the [place] website, the following are in-network tertiary facilities: [facility], [facility], [facility], [facility], [facility], [facility], [facility], and . Eleazar GUERRERO CM
[2022-05-18 17:01] LABS: Bedside Glucose 248 mg/dL (74-106)
--- NOTE | 2022-05-18 18:21 | PCM.CONS.C ---
Assessment & Plan Assessment/Plan (1) Atrial fibrillation with RVR: PLAN: She presents with atrial fibrillation with rapid ventricular response rate. At this particular time her [id number] score is at least 2 I would recommend anticoagulation and also rate control. She has been started on intravenous diltiazem. Would recommend the addition of carvedilol 6.25 mg twice a day in lieu of the fact that her left ventricular systolic function is low. (2) Hypertension: PLAN: Her blood pressure does not appear to be very well controlled. I would recommend that she continue the losartan Start a beta-kinjal and titrate upwards as appropriate She may need a low-dose diuretic (3) Cardiomyopathy: PLAN: She does have evidence of a cardiomyopathy with an estimated ejection fraction of approximately 30%. The etiology of the above is multifactorial. It could be related to hypertensive cardiomyopathy or atrial fibrillation with a rapid ventricular response rate. She has complained of some chest discomfort and coronary disease would need to be excluded. I would recommend on the basis of the above that we perform a left heart catheterization to assess her coronary anatomy and depending on the findings further recommendations will be made. HPI Consult Data Date of Consult: 05/19/22 HPI Narrative HPI Narrative: MARIA DAWKINS, is a 61 F who presents with palpitations and chest discomfort. She was noted to be in atrial fibrillation with rapid ventricular response rate she was started on intravenous diltiazem. She also has a history of hypertension and obesity. She denies any dizziness or diaphoresis near syncope or syncope she says that she had been compliant with her antihypertensive therapy. She had been doing well. She also complained of mild chest discomfort at rest. Her blood pressure was noted to be elevated and she had an echocardiogram which demonstrated globally reduced left ventricular systolic function. [facility] Medical History Atrial fibrillation, new onset HLD (hyperlipidemia) Hypertension Migraine headache Obesity Type II diabetes mellitus Home Medications glimepiride 1 mg tablet 1 tab PO BID 11/29/15 [History Last Taken Unknown] losartan 50 mg tablet 100 mg PO DAILY 11/29/15 [History Last Taken Unknown] duloxetine 60 mg capsule,delayed release 120 mg PO DAILY 11/08/21 [History Last Taken Unknown] sitagliptin 50 mg-metformin ER 1,000 mg tablet,extended release 24h mp (Janumet XR) 1 tab PO DAILY 05/17/22 [History Last Taken Unknown] trazodone 100 mg tablet 100 mg PO DAILY 05/17/22 [History Last Taken Unknown] triamterene 37.5 mg-hydrochlorothiazide 25 mg tablet 1 tab PO DAILY 05/17/22 [History Last Taken Unknown] Allergy/AdvReac Type Severity Reaction Status Date / Time levofloxacin [From Levaquin] Allergy Other Verified 05/17/22 17:09 ANTIBIOTICS AdvReac Other Uncoded 05/17/22 17:09 Family History Mother Diabetes Psoriatic arthritis Rheumatoid arthritis Father COPD (chronic obstructive pulmonary disease) With concurrent tobacco use history. Myocardial infarction Heart disease Surgical History History of foot surgery Social History adopted: No household members: spouse housing: house Smoking Status: Never smoker alcohol intake: never substance use type: does not use ROS Constitutional Constitutional: Denies fever(s) or weight loss Eyes Eyes: Reports systems reviewed and no addt'l complaints, except as documented ENT HEENT: Reports systems reviewed and no addt'l complaints, except as documented Cardiovascular Cardiovascular: Reports chest pain at rest and palpitations; Denies chest pain with activity, dyspnea at rest, dyspnea on exertion, edema or paroxysmal nocturnal dyspnea Respiratory/Chest Respiratory/Chest: Reports dyspnea on exertion; Denies productive cough, shortness of breath at rest or shortness of breath with exertion Gastrointestinal Gastrointestinal: Denies change in bowel habits, nausea, vomiting or weight changes Genitourinary Genitourinary: Denies difficulty urinating Musculoskeletal Musculoskeletal: Denies joint stiffness or muscle weakness Integumentary Integumentary: Denies lesions Neurologic Neurologic: Denies dizziness or syncope Psychiatric Psychiatric: Denies anxiety Endocrine Endocrinology: Denies excessive sweating or fatigue Hematologic/Lymphatic Hematologic/Lymphatic: Denies anemia Allergic/Immunologic Allergic/Immunologic: Denies seasonal rhinorrhea Physical Exam Const alert, oriented x3 and no apparent distress General Appearance: cooperative HEENT hearing grossly normal bilaterally Head and Scalp: atraumatic Eyes EOMs intact bilaterally Neck General: normal visual inspection Chest inspection of chest normal and palpation of chest normal Resp normal respiratory effort Auscultation: clear to auscultation bilaterally Cardio S1 normal heart sound and S2 normal heart sound Jugular Venous Distention: JVD Rhythm: abnormal rhythm GI normal to inspection, nondistended, normoactive bowel sounds Extremity normal capillary refill and no pedal edema Peripheral Pulses: Yes pulses 2+ throughout and femoral pulses present Skin no rashes or lesions noted Neuro oriented x3 and CN's II-XII intact bilaterally Psych Appearance: grossly normal and appropriate Risk Stratification Risk Stratification Applicable: No Objective Data Vital Signs: Vital Signs Temp Pulse Resp BP Pulse Ox O2 Del Method O2 Flow Rate 98.9 F 95 22 H 137/112 H 95 Room Air 2 05/18/22 17:00 05/18/22 17:00 05/18/22 17:00 05/18/22 17:00 05/18/22 17:00 05/18/22 17:00 05/18/22 04:00 Oxygen Flow Rate (L/min) 2 Oxygen Delivery Method Room Air Weight: 208 lb 15.971 oz Body Mass Index (BMI) 35.9 Intake & Output: Intake and Output for Last 24 Hours 05/16/22 05/17/22 05/18/22 23:59 23:59 23:59 Intake Total 74.67 / 477.17 2717.50 / 2717.50 Output Total 1000 / 1000 Balance 74.67 / -122.83 1717.50 / 1717.50 Lab / Micro Data Result Diagrams: 05/19/22 05:10 05/19/22 05:10 Labs: Laboratory Results - last 24 hr 05/17/22 19:56: Troponin I High Sens 40 05/17/22 22:30: POC Glucose 233 H 05/18/22 05:53: WBC 9.0, RBC 3.81 L, Hgb 11.4 L, Hct 36.4 L, MCV 95.5, MCH 29.9, MCHC 31.3 L, RDW Std Deviation 44.9 H, RDW Coeff of Patricia 12.9, Plt Count 301, MPV 9.4, Immature Gran % (Auto) 0.300, Neut % (Auto) 57.7, Lymph % (Auto) 30.5, [place] % (Auto) 9.1, Eos % (Auto) 1.6, Baso % (Auto) 0.8, Absolute Neuts (auto) 5.2, Absolute Lymphs (auto) 2.74, Nucleated RBC % 0 05/18/22 05:53: Sodium 138, Potassium 4.3, Chloride 104, Carbon Dioxide 25.0, Anion Gap 9, BUN 24 H, Creatinine 1.26 H, Estim Creat Clear Calc 41.00, Est GFR (MDRD) Af Amer 56 L, Est GFR (MDRD) Non-Af 46 L, BUN/Creatinine Ratio 19.0, Glucose 195 H, Calcium 8.3 L, Total Bilirubin 0.60, AST 16, ALT 36, Alkaline Phosphatase 71, Total Protein 6.5, Albumin 2.9 L, Globulin 3.6, Albumin/Globulin Ratio 0.8 L, Triglycerides 118, Cholesterol 136, LDL Cholesterol 72, VLDL Cholesterol 24, HDL Cholesterol 40 05/18/22 05:53: Hemoglobin A1c 8.7 H 05/18/22 05:53: Troponin I High Sens 42 05/18/22 06:47: POC Glucose 221 H 05/18/22 11:18: POC Glucose 242 H 05/18/22 16:39: POC Glucose 248 H Micro: Microbiology 05/17/22 18:19 Nasal Secretion SARS-CoV-2 Antigen (Rapid) - Final Cardiology Labs/Tests 05/18/22 05:53: WBC 9.0, RBC 3.81 L, Hgb 11.4 L, Hct 36.4 L, MCV 95.5, MCH 29.9, MCHC 31.3 L, Plt Count 301, MPV 9.4, Immature Gran % (Auto) 0.300, Neut % (Auto) 57.7, Lymph % (Auto) 30.5, [place] % (Auto) 9.1, Eos % (Auto) 1.6, Baso % (Auto) 0.8, Absolute Neuts (auto) 5.2, Nucleated RBC % 0 05/18/22 05:53: Sodium 138, Potassium 4.3, Chloride 104, Carbon Dioxide 25.0, Anion Gap 9, BUN 24 H, Creatinine 1.26 H, Est GFR (MDRD) Af Amer 56 L, Est GFR (MDRD) Non-Af 46 L, BUN/Creatinine Ratio 19.0, Glucose 195 H, Calcium 8.3 L, Total Bilirubin 0.60, Triglycerides 118, Cholesterol 136, LDL Cholesterol 72, VLDL Cholesterol 24, HDL Cholesterol 40 05/18/22 05:53: Hemoglobin A1c 8.7 H Rhythm: EKG: ECHO: Stress Test: Cardiac Cath: PCI: CT Surgery: Holter monitor: EPS: PPM: CXR: Chest CT Scan: Radiography Diagnostic Testing: Radiology Impression Echocardiogram 05/17/22 19:19 Interpretation Summary Normal LV size. The estimated ejection fraction is 30 %. There is moderate to severe global hypokinesis of the left ventricle. Contrast injection was performed. Ordering Physician: Nathaly Muniz Referring Physician: NANDO RODRIGUEZ Performed By: Beba Benjamin RCS
--- NOTE | 2022-05-18 19:10 | EKG12_ITS ---
Test Reason : rhythm change Blood Pressure : / mmHG Vent. Rate : 097 BPM Atrial Rate : 097 BPM P-R Int : 168 ms QRS Dur : 086 ms QT Int : 348 ms P-R-T Axes : 029 -27 078 degrees QTc Int : 441 ms Normal sinus rhythm Minimal voltage criteria for LVH, may be normal variant ( R in aVL ) Nonspecific T wave abnormality Abnormal ECG When compared with ECG of 17-MAY-2022 17:23, Sinus rhythm has replaced Atrial fibrillation Vent. rate has decreased BY 57 BPM Confirmed by SANJU MEEHAN, ARIE ([id number]), photography editor GABRIEL DURHAM ([id number]) on 05/20/2022 9:40:19 AM Referred By: Confirmed By:ARIE BILLS MD
[2022-05-18] MEDS: traZODone 100 MG Tablet PO (21:32)
[2022-05-18] MEDS: Carvedilol 6.25 MG Tablet PO (21:34)
[2022-05-18] MEDS: 0.9% Saline Lock 10 ML Syringe IV (21:36)
[2022-05-18] MEDS: DULoxetine Hcl 60 MG Capsule 120 MG PO (21:37)
[2022-05-18] MEDS: Albuterol 2.5 MG/3 ML VIAL.NEB. INHALATION (21:46)
[2022-05-18] MEDS: Furosemide 40 MG/4 ML Vial IV (22:37)
[2022-05-18 22:50] LABS: Bedside Glucose 275 mg/dL (74-106)
[2022-05-19] VITALS (21 sets, daily range): BP systolic 109–153; BP diastolic 61–98; PULSE 72–92; RESP 16–25; TEMP 36.6–37.1; O2SAT 91–100; BMI 35.5
[2022-05-19 06:12] LABS: Absolute Lymphocyte Count 1.97 X10^3/uL (0.83-4.51); Absolute Neutrophil Count 5.7 X10^3/uL (2.0-7.7); Basophil# 0.03 X10^3/uL; Basophil% 0.3 % (0-1); Eosinophil# 0.14 X10^3/uL; Eosinophils% 1.6 % (0-5); Hematocrit 35.8 % (37-47); Hemoglobin 11.5 g/dL (12.0-15.0); Lymphocyte # 1.97 X10^3/ul (0.83-4.51); Lymphocyte % 22.6 % (19-41); Mean Corp Hgb Conc 32.1 g/dL (32-36); Mean Corpuscular Hgb 30.4 pg (27.0-32.0); Mean Corpuscular Volume 94.7 fL (81-99); Mean Platelet Vol. 9.5 fl (6.2-12.0); Monocyte# 0.83 X10^3/uL; Monocyte% 9.5 % (0-10); NRBC Flagged by Analyzer 0 % (0-5); Neutrophil % 65.7 % (47-70); Platelet Count 300 K/mm3 (150-450); RBC Distribution Width CV 12.8 % (11.6-14.6); RBC Distribution Width SD 43.9 fl (35.1-43.9); Red Blood Count 3.78 M/mm3 (4.2-5.4); White Blood Count 8.7 K/mm3 (4.4-11.0)
[2022-05-19] MEDS: Carvedilol 6.25 MG Tablet PO (06:14)
[2022-05-19] MEDS: Insulin Lispro 100 UNIT/ML INSULN.PEN SC ×2 (06:14→10:56)
[2022-05-19 06:31] LABS: Bedside Glucose 278 mg/dL (74-106)
[2022-05-19 06:46] LABS: Anion Gap 8 (5-15); BUN 26 mg/dL (7-18); BUN/Creat Ratio 18.3 RATIO (10-20); Chloride 100 mmol/L (98-107); Creatinine, Serum 1.42 mg/dL (0.55-1.02); EST Glomerular Filtration Rate 40 mL/min (>60); Est Glom Filt Rate - Afr Amer 48 mL/min (>60); Estimated Creatinine Clearance 36.38 ml/min; Glucose 283 mg/dL (74-106); Magnesium 1.7 mg/dL (1.6-2.6); Potassium 3.7 mmol/L (3.5-5.1); Sodium Level 136 mmol/L (136-145)
--- NOTE | 2022-05-19 07:31 | NURSING ---
This RN called and gave report to YOLANDA Cavazos at [employer].
--- NOTE | 2022-05-19 07:46 | PCM.PN.HOSP ---
Subjective Subjective Patient underwent a 2D echo the day prior which demonstrated EF of 30%. Consult subsequently placed to cardiology Case discussed with Dr. Morrison plan is for patient to undergo left heart catheterization to evaluate her cardiomyopathy Objective Data Objective Data Vital Signs: Vital Signs Temp Pulse Resp BP Pulse Ox O2 Del Method O2 Flow Rate 97.9 F 89 20 H 153/98 H 96 Room Air 2 05/19/22 06:00 05/19/22 06:30 05/19/22 06:00 05/19/22 06:00 05/19/22 06:00 05/19/22 07:33 05/19/22 04:00 FiO2 21 05/18/22 21:35 Oxygen Flow Rate (L/min) 2 Oxygen Delivery Method Room Air Weight: 94.5 kg Body Mass Index (BMI) 35.5 Intake & Output: Intake and Output for Last 24 Hours 05/17/22 05/18/22 05/19/22 23:59 23:59 23:59 Intake Total 74.67 / 477.17 3058.75 / 3058.75 0 / 0 Output Total 1000 / 1000 Balance 74.67 / -122.83 2058.75 / 2058.75 0 / 0 Lab / Micro Data Result Diagrams: 05/19/22 05:10 05/19/22 05:10 Labs: Laboratory Results - last 24 hr 05/18/22 05:53: Hemoglobin A1c 8.7 H 05/18/22 11:18: POC Glucose 242 H 05/18/22 16:39: POC Glucose 248 H 05/18/22 21:18: POC Glucose 275 H 05/19/22 05:10: WBC 8.7, RBC 3.78 L, Hgb 11.5 L, Hct 35.8 L, MCV 94.7, MCH 30.4, MCHC 32.1, RDW Std Deviation 43.9, RDW Coeff of Patricia 12.8, Plt Count 300, MPV 9.5, Immature Gran % (Auto) 0.300, Neut % (Auto) 65.7, Lymph % (Auto) 22.6, [place] % (Auto) 9.5, Eos % (Auto) 1.6, Baso % (Auto) 0.3, Absolute Neuts (auto) 5.7, Absolute Lymphs (auto) 1.97, Nucleated RBC % 0 05/19/22 05:10: Sodium 136, Potassium 3.7, Chloride 100, Carbon Dioxide 28.0, Anion Gap 8, BUN 26 H, Creatinine 1.42 H, Estim Creat Clear Calc 36.38, Est GFR (MDRD) Af Amer 48 L, Est GFR (MDRD) Non-Af 40 L, BUN/Creatinine Ratio 18.3, Glucose 283 H, Calcium 9.0, Phosphorus 4.0, Magnesium 1.7 05/19/22 06:10: POC Glucose 278 H Micro: Microbiology 05/17/22 18:19 Nasal Secretion SARS-CoV-2 Antigen (Rapid) - Final Radiography Diagnostic Testing: Radiology Impression Echocardiogram 05/17/22 19:19 Interpretation Summary Normal LV size. The estimated ejection fraction is 30 %. There is moderate to severe global hypokinesis of the left ventricle. Contrast injection was performed. Ordering Physician: Nathaly Muniz Referring Physician: NANDO RODRIGUEZ Performed By: Beba Benjamin RCS Physical Exam Narrative GENERAL: cooperative HEENT: Atraumatic; EYES; Anicteric, Normal Conjunctiva NECK; supple, normal thyroid, RESPIRATORY: Diminished to auscultation CARDIOVASCULAR: Irregular S1-S2 GI: soft, normoactive bowel sounds, : No Renal angle tenderness; EXTREMITIES: No edema, no clubbing, MUSCULOSKELETAL: no muscle wasting NEURO: Awake; no lateralizing signs. SKIN: No Rash PSYCH; Flat affect Assessment & Plan Assessment/Plan (1) Atrial fibrillation with RVR: PLAN: Plan Patient is a 61-year-old gentleman presented with shortness of breath fatigue and palpitations. EKG demonstrated new onset A. fib with RVR admitted to a monitored bed for subsequent management 1. New onset A. fib with RVR ? Admitted to a monitored bed managed with Cardizem drip with plans to transition to oral Cardizem. As part of his management ordered serial cardiac enzymes 2D echo. Patient seen still remains in A. fib with RVR Cardizem drip had to be adjusted. -Patient heart rate controlled. Patient will be discharged home on systemic anticoagulation 2. Cardiomyopathy ?Patient underwent a 2D echo the day prior which demonstrated EF of 30%. Consult subsequently placed to cardiology Case discussed with Dr. Morrison plan is for patient to undergo left heart catheterization to evaluate her cardiomyopathy ? Patient left heart catheterization did not demonstrate any obstructive lesions 3. Acute renal insufficiency ? Baseline creatinine 1.14 creatinine on admission was 1.6 managed with IV fluids creatinine down to 1.26 as of 05/18/2022 4. Hypertension - Blood pressure controlled, home medications continued with dose adjustment as needed 5. Diabetes mellitus type II -patient's oral hypoglycemics held. Placed on long acting insulin, Accu-Cheks a.c. and at bedtime and covered with sliding scale insulin 6. Depression with anxiety ? Patient is on duloxetine did continue 7. Chronic migraine ? Currently stable 8. Suspected obstructive sleep apnea ? Patient to undergo sleep study as outpatient 9. Class II obesity with BMI of 36 ? Weight loss advised 10. DVT prophylaxis -on systemic anticoagulation with Lovenox Charges/Coding Visit Charges Inpatient E&M: 89285 Subs Hosp L2
--- NOTE | 2022-05-19 08:14 | PCM.PN.CARD ---
Subjective Subjective Seen and evaluated. Underwent heart catheterization today Objective Data Vital Signs: Vital Signs Temp Pulse Resp BP Pulse Ox O2 Del Method O2 Flow Rate 97.9 F 89 20 H 153/98 H 96 Room Air 2 05/19/22 06:00 05/19/22 06:30 05/19/22 06:00 05/19/22 06:00 05/19/22 06:00 05/19/22 07:33 05/19/22 04:00 FiO2 21 05/18/22 21:35 Oxygen Flow Rate (L/min) 2 Oxygen Delivery Method Room Air Weight: 208 lb 5.389 oz Body Mass Index (BMI) 35.5 Intake & Output: Intake and Output for Last 24 Hours 05/17/22 05/18/22 05/19/22 23:59 23:59 23:59 Intake Total 74.67 / 477.17 3058.75 / 3058.75 0 / 0 Output Total 1000 / 1000 Balance 74.67 / -122.83 2058.75 / 2058.75 0 / 0 Lab / Micro Data Result Diagrams: 05/19/22 05:10 05/19/22 05:10 Labs: Laboratory Results - last 24 hr 05/18/22 11:18: POC Glucose 242 H 05/18/22 16:39: POC Glucose 248 H 05/18/22 21:18: POC Glucose 275 H 05/19/22 05:10: WBC 8.7, RBC 3.78 L, Hgb 11.5 L, Hct 35.8 L, MCV 94.7, MCH 30.4, MCHC 32.1, RDW Std Deviation 43.9, RDW Coeff of Patricia 12.8, Plt Count 300, MPV 9.5, Immature Gran % (Auto) 0.300, Neut % (Auto) 65.7, Lymph % (Auto) 22.6, [place] % (Auto) 9.5, Eos % (Auto) 1.6, Baso % (Auto) 0.3, Absolute Neuts (auto) 5.7, Absolute Lymphs (auto) 1.97, Nucleated RBC % 0 05/19/22 05:10: Sodium 136, Potassium 3.7, Chloride 100, Carbon Dioxide 28.0, Anion Gap 8, BUN 26 H, Creatinine 1.42 H, Estim Creat Clear Calc 36.38, Est GFR (MDRD) Af Amer 48 L, Est GFR (MDRD) Non-Af 40 L, BUN/Creatinine Ratio 18.3, Glucose 283 H, Calcium 9.0, Phosphorus 4.0, Magnesium 1.7 05/19/22 06:10: POC Glucose 278 H Cardiology Labs/Tests 05/19/22 05:10: WBC 8.7, RBC 3.78 L, Hgb 11.5 L, Hct 35.8 L, MCV 94.7, MCH 30.4, MCHC 32.1, Plt Count 300, MPV 9.5, Immature Gran % (Auto) 0.300, Neut % (Auto) 65.7, Lymph % (Auto) 22.6, [place] % (Auto) 9.5, Eos % (Auto) 1.6, Baso % (Auto) 0.3, Absolute Neuts (auto) 5.7, Nucleated RBC % 0 05/19/22 05:10: Sodium 136, Potassium 3.7, Chloride 100, Carbon Dioxide 28.0, Anion Gap 8, BUN 26 H, Creatinine 1.42 H, Est GFR (MDRD) Af Amer 48 L, Est GFR (MDRD) Non-Af 40 L, BUN/Creatinine Ratio 18.3, Glucose 283 H, Calcium 9.0, Phosphorus 4.0, Magnesium 1.7 Rhythm: EKG: ECHO: Stress Test: Cardiac Cath: PCI: CT Surgery: Holter monitor: EPS: PPM: CXR: Chest CT Scan: Radiography Diagnostic Testing: Radiology Impression Echocardiogram 05/17/22 19:19 Interpretation Summary Normal LV size. The estimated ejection fraction is 30 %. There is moderate to severe global hypokinesis of the left ventricle. Contrast injection was performed. Ordering Physician: Nathaly Muniz Referring Physician: NANDO RODRIGUEZ Performed By: Beba Benjamin RCS Physical Exam Const alert, oriented x3 and no apparent distress General Appearance: cooperative HEENT hearing grossly normal bilaterally Head and Scalp: atraumatic Eyes EOMs intact bilaterally Neck General: normal visual inspection Chest inspection of chest normal and palpation of chest normal Resp normal respiratory effort Auscultation: clear to auscultation bilaterally Cardio regular rate, regular rhythm, S1 normal heart sound and S2 normal heart sound Jugular Venous Distention: JVD GI normal to inspection, nondistended, normoactive bowel sounds Extremity normal capillary refill and no pedal edema Peripheral Pulses: Yes pulses 2+ throughout and femoral pulses present Skin no rashes or lesions noted Neuro oriented x3 and CN's II-XII intact bilaterally Psych Appearance: grossly normal and appropriate Assessment & Plan Assessment/Plan (1) Atrial fibrillation with RVR: PLAN: She presents with atrial fibrillation with rapid ventricular response rate. At this particular time her [id number] score is at least 2 I would recommend anticoagulation and also rate control. She has been started on intravenous diltiazem. This was discontinued and oral carvedilol started. Would recommend the continuation of carvedilol 12.5 mg twice a day in lieu of the fact that her left ventricular systolic function is low. (2) Hypertension: PLAN: Her blood pressure does not appear to be very well controlled. I would recommend that she continue the losartan Continue beta-kinjal and titrate upwards as appropriate She may need a low-dose diuretic (3) Cardiomyopathy: PLAN: She does have evidence of a cardiomyopathy with an estimated ejection fraction of approximately 30%. The etiology of the above is multifactorial. She underwent a cardiac catheterization today which demonstrated essentially normal coronary arteries. I would therefore suggest that the above is either due to hypertensive cardiomyopathy or atrial fibrillation. Would recommend beta-kinjal at this time and now that she is in sinus rhythm consider repeating her echocardiogram in 3 months to reassess her ventricular function. Depending on the level further recommendations will be made. Due to her relative renal dysfunction I would hold off on the YOEL inhibitor at this time. I would recommend an SGLT2 inhibitor. She can be discharged for outpatient follow-up.
--- NOTE | 2022-05-19 08:23 | CL.D_ITS ---
Patient Name: MARIA DAWKINS Study Date: 05/19/2022 Performing: Calin Morrison MD Ht: 63 inches 160.02 cm : 1960 Wt: 208.6 lbs 94.5 kg Age: 61 Gender: female BSA: 1.97 PROCEDURE(S) PERFORMED [id number])[facility] CLINICAL PROFILE AND INDICATIONS Indications: Cardiac Arrythmia Heart Failure: NYHA Class: 2, Newly Diagnosed: Yes, Heart Failure Type: Systolic Stress/Imaging Stress/Image Study Performed: No CAD Presentations: Other: SOB CONCLUSIONS Normal coronary arteries Cardiomyopathy: Dilated RECOMMENDATIONS Medical therapy DESCRIPTION OF PROCEDURE The patient arrived to the procedure lab. The risks and benefits of the procedure as well as a full description of our services here and current unavailability of surgical backup were fully explained to the patient and/or their significant other prior to the catheterization. The Timeout was completed, verifying the correct patient and procedure. The patient's procedural site was prepped and draped in the usual fashion. Local anesthetic was given subcutaneously to right radial region with Lidocaine 2%. Using a modified Seldinger technique, arterial access was obtained via the right radial artery, a 6Fr sheath was inserted. Left Coronary Artery selective angiography was performed in multiple views using a 5 Fr. 4.0 [place] catheter. Right Coronary Artery selective angiography was then performed in multiple views using a 5 Fr. 4.0 [place] catheter.The arterial sheath was pulled and a TR Band was applied for hemostasis CORONARY ANGIOGRAPHY DOMINANCE: Right Dominant LEFT HEART ASSESSMENT Left Ventricular Ejection Fraction: by Echo 30 % Global Hypokinesis - Severe Depressed Left Ventricular systolic function LEFT MAIN: Angiographically normal LEFT ANTERIOR DESCENDING ARTERY: Angiographically normal CIRCUMFLEX ARTERY: Angiographically normal RIGHT CORONARY ARTERY: Angiographically normal COMPLICATIONS No Complications PROCEDURE MEDICATIONS Versed 1 mg IV Fentanyl 50 mcg IV Oxygen: 2 L/min via nasal cannula Aspirin (325mg) 1 Tabs PO @ 05/19/2022 07:55:01 Heparin given IA 05/19/2022 08:04:43 Verapamil 2.5mg, Ntg 100mcgs, 3000 units of Heparin given IA 05/19/2022 08:04:43 SUMMARY OF HEMODYNAMIC DATA Time AIR REST ECG 07:43:07 AO 140/90 (111) SA 08:05:57 Signed By aClin Morrison MD On 05/19/2022 08:22:56 Calin Morrison MD
[2022-05-19] MEDS: 0.9% Normal Saline 1,000 ML 40 ML IV (08:39)
--- NOTE | 2022-05-19 09:44 | PCM.DC.SUM ---
Providers Date of Admission: 05/17/22 Date of Discharge: 05/19/22 Primary Care Physician: Dr. Nando Rodriguez MD Consultations 05/18/22 12:53 Consult: Cardiology Routine Consulting Provider: Calin Morrison Reason for Consult: Cardiomyopathy EMERGENT Consult: No MD Notified: Yes Date Notified: 05/18/22 Time Notified: 12:54 Method of Notification: Text Method of Consult:: In-Person Reason For Visit: NEW ONSET AFIB Diagnosis Discharge Diagnosis (1) Atrial fibrillation with RVR: Status: Acute Code(s): I48.91 - Unspecified atrial fibrillation Plan Patient is a 61-year-old gentleman presented with shortness of breath fatigue and palpitations. EKG demonstrated new onset A. fib with RVR admitted to a monitored bed for subsequent management 1. New onset A. fib with RVR ? Admitted to a monitored bed managed with Cardizem drip with plans to transition to oral Cardizem. As part of his management ordered serial cardiac enzymes 2D echo. Patient seen still remains in A. fib with RVR Cardizem drip had to be adjusted. -Patient heart rate controlled. Patient will be discharged home on systemic anticoagulation 2. Cardiomyopathy ?Patient underwent a 2D echo the day prior which demonstrated EF of 30%. Consult subsequently placed to cardiology Case discussed with Dr. Morrison plan is for patient to undergo left heart catheterization to evaluate her cardiomyopathy ? Patient left heart catheterization did not demonstrate any obstructive lesions 3. Acute renal insufficiency ? Baseline creatinine 1.14 creatinine on admission was 1.6 managed with IV fluids creatinine down to 1.26 as of 05/18/2022 4. Hypertension - Blood pressure controlled, home medications continued with dose adjustment as needed 5. Diabetes mellitus type II -patient's oral hypoglycemics held. Placed on long acting insulin, Accu-Cheks a.c. and at bedtime and covered with sliding scale insulin -SGLT2 inhibitor was added to patient therapy given her concomitant cardiomyopathy 6. Depression with anxiety ? Patient is on duloxetine did continue 7. Chronic migraine ? Currently stable 8. Suspected obstructive sleep apnea ? Patient to undergo sleep study as outpatient 9. Class II obesity with BMI of 36 ? Weight loss advised 10. DVT prophylaxis -on systemic anticoagulation with Lovenox Medications at Discharge Home Medications glimepiride 1 mg tablet 1 tab PO BID 11/29/15 losartan 50 mg tablet 100 mg PO DAILY 11/29/15 duloxetine 60 mg capsule,delayed release 120 mg PO DAILY 11/08/21 sitagliptin 50 mg-metformin ER 1,000 mg tablet,extended release 24h mp (Janumet XR) 1 tab PO DAILY 05/17/22 trazodone 100 mg tablet 100 mg PO DAILY 05/17/22 apixaban 5 mg tablet (Eliquis) 5 mg PO BID #60 tabs 05/19/22 carvedilol 12.5 mg tablet 12.5 mg PO BID #120 tabs 05/19/22 dapagliflozin 5 mg tablet 5 mg PO DAILY #60 tabs 05/19/22 furosemide 20 mg tablet (Lasix) 20 mg PO DAILY #60 tabs 05/19/22 Hospital Course Summary of Care Provided Minutes Spent on Discharge: 35 Physical Exam Narrative GENERAL: cooperative HEENT: Atraumatic; EYES; Anicteric, Normal Conjunctiva NECK; supple, normal thyroid, RESPIRATORY: Diminished to auscultation CARDIOVASCULAR: Irregular S1-S2 GI: soft, normoactive bowel sounds, : No Renal angle tenderness; EXTREMITIES: No edema, no clubbing, MUSCULOSKELETAL: no muscle wasting NEURO: Awake; no lateralizing signs. SKIN: No Rash PSYCH; Flat affect Weight / BMI Weight Weight: 94.5 kg Body Mass Index (BMI) 35.5 ABG / Lab / Microbiology Data Result Diagrams: 05/19/22 05:10 05/19/22 05:10 Laboratory: Laboratory Results - last 24 hr 05/18/22 11:18: POC Glucose 242 H 05/18/22 16:39: POC Glucose 248 H 05/18/22 21:18: POC Glucose 275 H 05/19/22 05:10: WBC 8.7, RBC 3.78 L, Hgb 11.5 L, Hct 35.8 L, MCV 94.7, MCH 30.4, MCHC 32.1, RDW Std Deviation 43.9, RDW Coeff of Patricia 12.8, Plt Count 300, MPV 9.5, Immature Gran % (Auto) 0.300, Neut % (Auto) 65.7, Lymph % (Auto) 22.6, [place] % (Auto) 9.5, Eos % (Auto) 1.6, Baso % (Auto) 0.3, Absolute Neuts (auto) 5.7, Absolute Lymphs (auto) 1.97, Nucleated RBC % 0 05/19/22 05:10: Sodium 136, Potassium 3.7, Chloride 100, Carbon Dioxide 28.0, Anion Gap 8, BUN 26 H, Creatinine 1.42 H, Estim Creat Clear Calc 36.38, Est GFR (MDRD) Af Amer 48 L, Est GFR (MDRD) Non-Af 40 L, BUN/Creatinine Ratio 18.3, Glucose 283 H, Calcium 9.0, Phosphorus 4.0, Magnesium 1.7 05/19/22 06:10: POC Glucose 278 H Microbiology: Microbiology 05/17/22 18:19 Nasal Secretion SARS-CoV-2 Antigen (Rapid) - Final Radiography Diagnostic Testing: Radiology Impression Echocardiogram 05/17/22 19:19 Interpretation Summary Normal LV size. The estimated ejection fraction is 30 %. There is moderate to severe global hypokinesis of the left ventricle. Contrast injection was performed. Ordering Physician: Nathaly Muniz Referring Physician: NANDO RODRIGUEZ Performed By: Beba Benjamin RCS D/C Instructions Discharge Diet: 1800 Calorie Control Diet and 2000 mg Sodium Diet Discharge Activity: Return to Normal Activity Call your doctor if you observe: Fever of 101 or Higher, Shortness of breath, Fainting spells and Chest pain Meaningful Use Info Meaningful Use Diagnoses (Choose all that apply): None applicable Discharge Plan Admission Admit Date/Time: 05/17/22 18:59 Attending Provider: Alcon Panda Primary Care Provider: Nando Rodriguez Consulting Providers: Nathaly Muniz ; Calin Morrison Discharge Orders/Prescriptions Prescriptions: New carvedilol 12.5 mg Tablet 12.5 mg PO BID Qty: 120 0RF Eliquis 5 mg tablet 5 mg PO BID Qty: 60 0RF furosemide [Lasix] 20 mg tablet 20 mg PO DAILY Qty: 60 0RF dapagliflozin 5 mg tablet 5 mg PO DAILY Qty: 60 0RF Continued losartan 50 MG tablet 100 mg PO DAILY Label Comments: blood pressure glimepiride 1 MG tablet 1 tab PO BID Label Comments: diabetes duloxetine 60 mg capsule,delayed release(DR/EC) 120 mg PO DAILY trazodone 100 mg Tablet 100 mg PO DAILY Janumet XR 50-1,000 mg Tablet, Er Multiphase 24 Hr 1 tab PO DAILY Discontinued triamterene-hydrochlorothiazid 37.5-25 mg Tablet 1 tab PO DAILY Referrals / Follow Up: Nando Rodriguez MD [Primary Care Provider] - In 1 Week Disposition Disposition (needs filled in before D/C Order can be placed): Home, Self Care Charges/Coding Visit Charges Inpatient E&M: 94981 Disch Hosp
--- NOTE | 2022-05-19 10:12 | CASEMGMT ---
Pt to be sent home on Eliquis at discharge and med e-scribed to [facility] pharmacy. Call to [facility] and per tech, pt's co-pay/deductible is $540.72. Pt/sig other provided with Eliquis 30 day free trial card and co-pay card with instructions, voice understanding. Pt then states 'it's not $500, it's $1500 but then states nevermind that's the [employer].' Pt/sig other provided with info for [employer] website for coupon/assistance and that they will need to complete info, voices understanding. Dr. Panda updated on cost, voices understanding. Pt voices no further questions/concerns/needs. Eleazar GUERRERO CM
[2022-05-19] MEDS: Carvedilol 12.5 MG Tablet PO (10:17)
[2022-05-19] MEDS: Furosemide 40 MG Tablet PO (10:17)
[2022-05-19 11:16] LABS: Bedside Glucose 269 mg/dL (74-106)
--- NOTE | 2022-05-19 11:34 | PHA.DC.MC ---
Pharmacy Service has performed discharge medication reconciliation and counseling for this patient. 1. APIXABAN 5MG PO BID 2. CARVEDILOL 12.5MG PO BID 3. DAPAGLIFLOZIN 5MG PO DAILY 4. FUROSEMIDE 20MG PO DAILY The patient's discharge medication list was reviewed for discrepancies and discrepancies were resolved. Home Medications glimepiride 1 mg tablet 1 tab PO BID diabetes 11/29/15 losartan 50 mg tablet 100 mg PO DAILY blood pressure 11/29/15 duloxetine 60 mg capsule,delayed release 120 mg PO DAILY mental health 11/08/21 sitagliptin 50 mg-metformin ER 1,000 mg tablet,extended release 24h mp (Janumet XR) 1 tab PO DAILY diabetes 05/17/22 trazodone 100 mg tablet 100 mg PO DAILY sleep 05/17/22 apixaban 5 mg tablet (Eliquis) 5 mg PO BID #60 tabs 05/19/22 carvedilol 12.5 mg tablet 12.5 mg PO BID #120 tabs 05/19/22 dapagliflozin 5 mg tablet 5 mg PO DAILY #60 tabs 05/19/22 furosemide 20 mg tablet (Lasix) 20 mg PO DAILY #60 tabs 05/19/22 The patient was counseled on the following discharge medications and changes in medications for homegoing were reviewed. The Reason for Use, instructions for use, and potential side effects were reviewed for all new medications. The patient's questions regarding all of their medications were answered. The patient was able to verbally demonstrate an understanding of their discharge medications.
== END 2022-05-19 12:13 | disposition home or self-care (01) | DRG 287 ==
LOC: ED 17:51 → PCU 19:40
PROVIDERS: Admitting Provider Family Medicine; Emergency Provider Emergency Medicine; PCP Family Medicine; Visit Provider Internal Medicine
DX: I48.91 Unspecified atrial fibrillation (principal); I42.9 Cardiomyopathy, unspecified; E11.9 Type 2 diabetes mellitus without complications; I10 Essential (primary) hypertension; E78.5 Hyperlipidemia, unspecified; G43.709 Chronic migraine without aura, not intractable, without status migrainosus; F41.8 Other specified anxiety disorders; G47.33 Obstructive sleep apnea (adult) (pediatric); Z79.84 Long term (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 of oral hypoglycemic drugs; E66.9 Obesity, unspecified; Z68.36 Body mass index [BMI] 36.0-36.9, adult; N28.9 Disorder of kidney and ureter, unspecified
CPT/HCPCS: 36415; 71045; 80048; 80053; 80061; 82962; 83036; 83735; 84100; 84443; 84484; 85025; 85610; 85730; 87811; 93005; 93306; 93454; 94640; 94762; 97802; 99152; 99153; 99284; J7030; Q9957; Q9967; A4216; C1769; C1894; C8929; J1940

== ENCOUNTER 2022-07-05 19:17 | Inpatient (IN) | payer BC, SELFPAY ==
[2022-07-05 19:18] VITALS: BP 116/91; PULSE 139; RESP 20; TEMP 36.2; O2SAT 97; BMI 36.2
[2022-07-05 19:29] VITALS: PULSE 147; RESP 27; O2SAT 100
--- NOTE | 2022-07-05 19:53 | EKG12_ITS ---
Test Reason : Tachycardia Blood Pressure : / mmHG Vent. Rate : 133 BPM Atrial Rate : 000 BPM P-R Int : 000 ms QRS Dur : 088 ms QT Int : 308 ms P-R-T Axes : 000 -36 146 degrees QTc Int : 458 ms Atrial fibrillation with rapid ventricular response Left axis deviation Inferior infarct , age undetermined Possible Anterior infarct , age undetermined ST & T wave abnormality, consider lateral ischemia Abnormal ECG Confirmed by CASSIDY MEEHAN, NEHEMIAH ([id number]), editor house organ GABRIEL DURHAM ([id number]) on 07/07/2022 11:00:28 AM Referred By: PL Confirmed By:NEHEMIAH BENJAMIN MD
--- NOTE | 2022-07-05 19:54 | EX.ED.DYSGE1 ---
HPI History of Present Illness Chief Complaint: Shortness of Breath Informant: patient and spouse/S.O. Narrative Narrative: Patient presents with overall sense of tiredness, decreased energy, decreased appetite, dyspnea on exertion and tachycardia. It sounds like the symptoms have been going on for at least 2 or 3 weeks if not longer. She was diagnosed originally with A. fib in the beginning of May. She was on carvedilol. She then started feeling decreased hunger. She states she was never nauseated but just did not feel like eating or drinking. They thought this was due to the medicine. She was switched to an unknown dose of what sounds like metoprolol. They do not know for sure the medicine she was switched to or the dosage and do not have it with them. She is on Eliquis and is taking it. She states she is drinking fluids without any problems. She is urinating normally. She has a slight cough but that has been going on for some time. She is only short of breath with activity and that has been going on ever since she was diagnosed with A. fib. What prompted her to come in [facility] is that her just felt that she needs to get this evaluated bits because its been going on for at least a couple weeks and she is not getting better. [facility] Medical History Atrial fibrillation, new onset HLD (hyperlipidemia) Hypertension Migraine headache Obesity Type II diabetes mellitus Home Medications glimepiride 1 mg tablet 1 tab PO BID diabetes 11/29/15 [History Last Taken Unknown] losartan 50 mg tablet 100 mg PO DAILY blood pressure 11/29/15 [History Last Taken Unknown] duloxetine 60 mg capsule,delayed release 120 mg PO DAILY mental health 11/08/21 [History Last Taken Unknown] sitagliptin phos 50 mg-metformin ER 1,000 mg tablet,extend rel 24h mp (Janumet XR) 1 tab PO DAILY diabetes 05/17/22 [History Last Taken Unknown] trazodone 100 mg tablet 100 mg PO DAILY sleep 05/17/22 [History Last Taken Unknown] apixaban 5 mg tablet (Eliquis) 5 mg PO BID #60 tabs 05/19/22 [Rx Last Taken Unknown] carvedilol 12.5 mg tablet 12.5 mg PO BID #120 tabs 05/19/22 [Rx Last Taken Unknown] dapagliflozin 5 mg tablet 5 mg PO DAILY #60 tabs 05/19/22 [Rx Last Taken Unknown] furosemide 20 mg tablet (Lasix) 20 mg PO DAILY #60 tabs 05/19/22 [Rx Last Taken Unknown] Allergy/AdvReac Type Severity Reaction Status Date / Time levofloxacin [From Levaquin] Allergy Other Verified 07/05/22 19:20 ANTIBIOTICS AdvReac Other Uncoded 07/05/22 19:20 Family History Mother Diabetes Psoriatic arthritis Rheumatoid arthritis Father COPD (chronic obstructive pulmonary disease) With concurrent tobacco use history. Myocardial infarction Heart disease Surgical History History of foot surgery Social History adopted: No household members: spouse housing: house Smoking Status: Never smoker alcohol intake: never substance use type: does not use ROS ROS ED Constitutional Constitutional ED: Denies fever(s) or subjective Eyes Eyes: Denies change in vision ENT ENT ED: Denies rhinorrhea Cardiovascular Cardiovascular: Reports palpitations and racing heartbeat; Denies chest pain Respiratory/Chest Respiratory/Chest: Reports cough and dyspnea Gastrointestinal Gastrointestinal: Denies abdominal pain, nausea or vomiting Genitourinary Genitourinary ED: Denies dysuria Musculoskeletal Musculoskeletal: Denies myalgias Integumentary Denies rash Neurologic Neurologic: Denies headache(s) Endocrine Endocrinology: Denies polydipsia or polyuria Hematologic/Lymphatic Hematologic/Lymphatic: Reports easy bleeding and easy bruising Allergic/Immunologic Allergic/Immunologic ED: Denies urticaria EXAM Physical Exam Const Vital Signs: 07/05/22 19:18 07/05/22 19:29 07/05/22 19:29 Temperature 97.1 F L Temperature Source Temporal Pulse Rate 139 H 147 H Respiratory Rate 20 H 27 H Respiratory Effort Normal Respiratory Depth Normal Respiratory Pattern Normal Blood Pressure 116/91 H Blood Pressure Mean 99 Pulse Ox 97 Oxygen Delivery Method Room Air Room Air 07/05/22 20:19 07/05/22 21:50 Temperature Temperature Source Pulse Rate 121 H 148 H Respiratory Rate 20 H 21 H Respiratory Effort Respiratory Depth Respiratory Pattern Blood Pressure 93/69 Blood Pressure Mean 77 Pulse Ox 91 97 Oxygen Delivery Method Room Air Room Air Positive well nourished and well developed General Appearance ED: well developed and NAD HEENT Reports moist mucous membranes Eyes General Eye ED: Negative for pale conjunctiva or scleral icterus Neck no JVD Resp normal respiratory effort and clear to auscultation bilaterally Auscultation: Negative for rales Cardio Negative for regular rate or regular rhythm Rate: tachycardic Rhythm: abnormal rhythm GI normal to inspection, nondistended, normoactive bowel sounds and non-tender Back/Spine General Back: Negative for CVA tenderness Neuro oriented x3 Psych mental status grossly normal Skin no rashes or lesions noted MDM MDM MDM Narrative Medical decision making narrative: Patient's x-ray was clear. No sign of congestive heart failure. Her white count was slightly elevated. She is not anemic. Platelets are normal. Electrolytes show mildly low sodium. She did have acute kidney injury with creatinine at 2.34 when her baseline is closer to 1.2-1.4. There is a component of dehydration with a high BUN to creatinine ratio. Glucose was up a bit at 243. Patient was given metoprolol initially for her increased heart rate with A. fib. She appears to be on metoprolol at this time orally. We really have not gotten any great benefit. She is still running between 1 20-1 50 after 15 mg of metoprolol IV. We also have given her a liter of fluid and 500 cc aliquots. She does have an ejection fraction of 30% on a recent echo so we wanted to give small amounts of fluid recurrently. She is having no dyspnea. At this time I will start Cardizem to see if we get her rate under better control. Her COVID test also came back positive. I think with her continued tachycardia, dyspnea on exertion, acute kidney injury and difficult to manage heart rate, she does warrant to bring into the hospital. Although I think COVID is one of the causes of her not feeling well and may be a cause of her not drinking as much fluids, I do not think COVID is directly causing her symptoms. She had A. fib before COVID. She has no chest x-rays findings and she is not hypoxic. It sounds like she has been having symptoms of overall weakness and decreased appetite for 7 to 10 days. I have hospitalist on page. Lab Data Attestation: I reviewed the patient's lab results. Labs: Laboratory Results - last 24 hr 07/05/22 07/05/22 19:50 19:50 WBC 14.3 H RBC 5.21 Hgb 14.4 Hct 46.4 MCV 89.1 MCH 27.6 MCHC 31.0 L RDW Std Deviation 44.5 H RDW Coeff of Patricia 13.9 Plt Count 341 MPV 10.4 Immature Gran % (Auto) 0.600 Neut % (Auto) 64.0 Lymph % (Auto) 25.0 [place] % (Auto) 10.0 Eos % (Auto) 0.1 Baso % (Auto) 0.3 Absolute Neuts (auto) 9.1 H Absolute Lymphs (auto) 3.57 Nucleated RBC % 0.2 Sodium 128 L Potassium 5.1 Chloride 96 L Carbon Dioxide 21.0 Anion Gap 11 BUN 66 H Creatinine 2.34 H Estim Creat Clear Calc 21.80 Est GFR (MDRD) Af Amer 27 L Est GFR (MDRD) Non-Af 23 L BUN/Creatinine Ratio 28.2 H Glucose 243 H Calcium 9.1 Troponin I High Sens 35 Radiography Diagnostic Testing: Clinical Impression(s) from Imaging Studies Chest X-Ray 07/05/22 20:00 IMPRESSION: There are no acute findings. Electronically Signed: Marc Poon MD at 20:30 EDT , Chest x-ray showed no acute process. EKG Initial EKG: Comments: EKG done for tachycardia read by me shows atrial fibrillation overall ventricular response of 133. No acute ST elevation. QRS duration and QTc are normal. Discharge Plan Dx/Rx/DC Orders Clinical Impression: Atrial fibrillation with RVR, Acute kidney injury, COVID, Hyponatremia, Acute dehydration Disposition Disposition: [facility]
--- NOTE | 2022-07-05 20:00 | RAD_ITS ---
STUDY: X-RAY CHEST REASON FOR EXAM: Female, 62 years old. CHEST PAIN SOb TECHNIQUE: XR Chest 1 View COMPARISON: 05/17/2022 FINDINGS: There is no demonstrated pleural abnormality. There is borderline cardiomegaly. Normal mediastinum and yoel. Normal visualized pulmonary arteries. Normal visualized aortic arch and descending thoracic aorta. Normal visualized thoracic spine. Normal visualized ribs, clavicles, and shoulders. There is no demonstrated abnormality of the visualized soft tissue structures of the upper abdomen. RAD/Chest 1 View (Portable) IMPRESSION: There are no acute findings. Electronically Signed: Marc Poon MD at 20:30 EDT ,
[2022-07-05] MEDS: Metoprolol Tartrate 5 MG/5 ML Vial IV ×3 (20:16→22:46)
[2022-07-05 20:19] VITALS: PULSE 121; RESP 20; O2SAT 91
[2022-07-05 20:22] LABS: Absolute Lymphocyte Count 3.57 X10^3/uL (0.83-4.51); Absolute Neutrophil Count 9.1 X10^3/uL (2.0-7.7); Basophil# 0.05 X10^3/uL; Basophil% 0.3 % (0-1); Eosinophil# 0.02 X10^3/uL; Eosinophils% 0.1 % (0-5); Hematocrit 46.4 % (37-47); Hemoglobin 14.4 g/dL (12.0-15.0); Lymphocyte # 3.57 X10^3/ul (0.83-4.51); Mean Corpuscular Hgb 27.6 pg (27.0-32.0); Mean Corpuscular Volume 89.1 fL (81-99); Mean Platelet Vol. 10.4 fl (6.2-12.0); Monocyte# 1.43 X10^3/uL; NRBC Flagged by Analyzer 0.2 % (0-5); Neutrophil # 9.13 X10^3/uL (2.7-7.7); Platelet Count 341 K/mm3 (150-450); RBC Distribution Width CV 13.9 % (11.6-14.6); RBC Distribution Width SD 44.5 fl (35.1-43.9); Red Blood Count 5.21 M/mm3 (4.2-5.4); White Blood Count 14.3 K/mm3 (4.4-11.0)
[2022-07-05 20:41] LABS: Anion Gap 11 (5-15); BUN 66 mg/dL (7-18); BUN/Creat Ratio 28.2 RATIO (10-20); Calcium,Total 9.1 mg/dL (8.5-10.1); Chloride 96 mmol/L (98-107); Creatinine, Serum 2.34 mg/dL (0.55-1.02); EST Glomerular Filtration Rate 23 mL/min (>60); Est Glom Filt Rate - Afr Amer 27 mL/min (>60); Glucose 243 mg/dL (74-106); Potassium 5.1 mmol/L (3.5-5.1); Sodium Level 128 mmol/L (136-145); Troponin-I HS 35 pg/mL (3.0-54.0)
[2022-07-05 21:50] VITALS: BP 93/69; PULSE 148; RESP 21; O2SAT 97
[2022-07-05 22:50] VITALS: BP 112/87; PULSE 133; RESP 20; O2SAT 92
[2022-07-05 22:58] VITALS: BP 112/87; PULSE 127; RESP 21; O2SAT 92
--- NOTE | 2022-07-05 23:52 | HP.PCM.HOS_ITS ---
HPI - General General Date of Admission: 07/05/22 Date of Service: 07/05/22 Chief Complaint: malaise. HPI Narrative MARIA DAWKINS, is a 62 F who presents with generalized malaise. Patient has not been feeling well for the past 3 weeks. She has not been eating much though she is drinking water. Patient just has not been getting better though her cough, which began about 2 weeks ago, has improved. She was out in [place] for horse show was around others who are sick but no one was ever checked for COVID-19 whether out there. She presented here and was checked for COVID-19 and was positive. Patient was also noted to be in atrial fibrillation with RVR. Patient received metoprolol but heart rate still remained elevated and then has subsequent been ordered a diltiazem drip. Patient been taking carvedilol but was having adverse reaction to that and then was subsequent changed over to metoprolol tartrate. [facility] Medical History (Updated 07/05/22 @ 23:[address] Florencio Marti, DO) Atrial fibrillation, new onset Cardiomyopathy HLD (hyperlipidemia) Hypertension Menopausal and female climacteric states Migraine headache Obesity Type II diabetes mellitus Home Medications glimepiride 1 mg tablet 1 tab PO BID diabetes 11/29/15 [History Last Taken Unknown] losartan 50 mg tablet 100 mg PO DAILY blood pressure 11/29/15 [History Last Taken Unknown] duloxetine 60 mg capsule,delayed release 120 mg PO DAILY mental health 11/08/21 [History Last Taken Unknown] sitagliptin phos 50 mg-metformin ER 1,000 mg tablet,extend rel 24h mp (Janumet XR) 1 tab PO DAILY diabetes 05/17/22 [History Last Taken Unknown] trazodone 100 mg tablet 100 mg PO DAILY sleep 05/17/22 [History Last Taken Unknown] apixaban 5 mg tablet (Eliquis) 5 mg PO BID #60 tabs 05/19/22 [Rx Last Taken Unknown] carvedilol 12.5 mg tablet 12.5 mg PO BID #120 tabs 05/19/22 [Rx Last Taken Unknown] dapagliflozin 5 mg tablet 5 mg PO DAILY #60 tabs 05/19/22 [Rx Last Taken Un known] furosemide 20 mg tablet (Lasix) 20 mg PO DAILY #60 tabs 05/19/22 [Rx Last Taken Unknown] Allergy/AdvReac Type Severity Reaction Status Date / Time levofloxacin [From Levaquin] Allergy Other Verified 07/05/22 19:20 ANTIBIOTICS AdvReac Other Uncoded 07/05/22 19:20 Family History Mother Diabetes Psoriatic arthritis Rheumatoid arthritis Father COPD (chronic obstructive pulmonary disease) With concurrent tobacco use history. Myocardial infarction Heart disease Surgical History History of foot surgery Social History adopted: No household members: spouse housing: house Smoking Status: Never smoker alcohol intake: never substance use type: does not use ROS ROS Narrative No fever chills. No lower extremity edema. No shortness of breath. All review of systems were negative except as mentioned above in the history of present illness and the other review of systems. Vital Signs Vital Signs Vital Signs: 07/05/22 19:18 07/05/22 19:29 07/05/22 19:29 Temperature 36.2 C L Temperature Source Temporal Pulse Rate 139 H 147 H Respiratory Rate 20 H 27 H Respiratory Effort Normal Respiratory Depth Normal Respiratory Pattern Normal Blood Pressure 116/91 H Blood Pressure Mean 99 Pulse Ox 97 Oxygen Delivery Method Room Air Room Air 07/05/22 20:19 07/05/22 21:50 07/05/22 22:50 Temperature Temperature Source Pulse Rate 121 H 148 H 133 H Respiratory Rate 20 H 21 H 20 H Respiratory Effort Respiratory Depth Respiratory Pattern Blood Pressure 93/69 112/87 H Blood Pressure Mean 77 95 Pulse Ox 91 97 92 Oxygen Delivery Method Room Air Room Air Room Air 07/05/22 22:58 Temperature Temperature Source Pulse Rate 127 H Respiratory Rate 21 H Respiratory Effort Respiratory Depth Respiratory Pattern Blood Pressure 112/87 H Blood Pressure Mean 95 Pulse Ox 92 Oxygen Delivery Method Weight Weight: 95.708 kg Body Mass Index (BMI) 36.2 Physical Exam Const alert and no apparent distress HEENT normocephalic, head/scalp atraumatic, hearing grossly normal bilaterally and moist oral mucous membranes Resp normal respiratory effort, no retractions and no use of accessory muscles Cardio Cardio Narrative: Irregularly irregular GI normal to inspection, nondistended, normoactive bowel sounds, soft to palpation, non-tender, non-distended and hepatosplenomegaly Extremity normal to inspection, full ROM and no clubbing, cyanosis or edema Neuro moves all extremities and no focal motor deficits Results Lab / Micro Data Attestation: I reviewed the patient's lab results. Result Diagrams: 07/05/22 19:50 07/05/22 19:50 Labs: Laboratory Results - last 24 hr 07/05/22 19:50: WBC 14.3 H, RBC 5.21, Hgb 14.4, Hct 46.4, MCV 89.1, MCH 27.6, MCHC 31.0 L, RDW Std Deviation 44.5 H, RDW Coeff of Patricia 13.9, Plt Count 341, MPV 10.4, Immature Gran % (Auto) 0.600, Neut % (Auto) 64.0, Lymph % (Auto) 25.0, [place] % (Auto) 10.0, Eos % (Auto) 0.1, Baso % (Auto) 0.3, Absolute Neuts (auto) 9.1 H, Absolute Lymphs (auto) 3.57, Nucleated RBC % 0.2 07/05/22 19:50: Sodium 128 L, Potassium 5.1, Chloride 96 L, Carbon Dioxide 21.0, Anion Gap 11, BUN 66 H, Creatinine 2.34 H, Estim Creat Clear Calc 21.80, Est GFR (MDRD) Af Amer 27 L, Est GFR (MDRD) Non-Af 23 L, BUN/Creatinine Ratio 28.2 H, Glucose 243 H, Calcium 9.1, Troponin I High Sens 35 Micro: Microbiology 07/05/22 19:57 Nasal Secretion SARS-CoV-2 Antigen (Rapid) - Final SARS-CoV-2 (COVID 19) EKG Initial EKG: Attestation: I personally reviewed and interpreted this EKG as follows: Prior EKG tracings: available for review EKG Rhythm Intrepretation: Atrial Fibrillation (with RVR) Radiology Impression Chest X-Ray 07/05/22 20:00 IMPRESSION: There are no acute findings. Electronically Signed: Marc Poon MD at 20:30 EDT , Assessment & Plan Assessment/Plan (1) Atrial fibrillation with RVR: PLAN: Refractory to 15 mg of IV metoprolol in the emergency room. Started on diltiazem drip without bolus Consult cardiology Patient has a known history of nonischemic cardiomyopathy EF of 30% from echocardiogram on 05/18/2022 Patient had a cardiac catheterization on 05/19/2022 that showed nonobstructive coronary artery disease. Anticoagulated on apixaban (2) Acute kidney injury: PLAN: Unclear type at this time. Patient states that she has been drinking copious amounts of water but also does take furosemide, losartan. Patient received IV fluids in the emergency room and will hold off any additional given the patient's known history of cardiomyopathy. Continue to hold furosemide and losartan Check urinalysis and additional urine studies No need for renal replacement therapy at this time but if kidney function continues to worsen may be consideration for consulting nephrology (3) COVID: PLAN: Onset was roughly 2 weeks ago. Patient states that she has overall been improving since then. Do not feel that she warrants treatment nor does she require additional quarantine at this time. Patient asked how she would prevent getting COVID in the future. Told her to wear a mask when she is out and about. Patient seen and other became frustrated saying masks do not work. I told him with the COVID-19 we actually encourage people wearing believes that KN95 or an N95 mask. He did not have any further comments about masks afterwards. (4) Hyponatremia: PLAN: May be due to polydipsia. Monitor PLAN: Plan Chronic conditions * Diabetes mellitus type 2: Hold Janumet given DIVINA and glimepiride. Sliding scale insulin. Patient had an A1c of 8.7 from 05/18/2022. * Nonischemic cardiomyopathy: Currently stable. Previous did not tolerate carvedilol. Losartan and Lasix on hold given DIVINA. VTE prophylaxis: Not indicated as patient is already anticoagulated on apixaban. Charges/Coding Visit Charges Inpatient E&M: 71154 Init Hosp L3
[2022-07-06] VITALS (24 sets, daily range): BP systolic 90–127; BP diastolic 61–94; PULSE 65–124; RESP 18–25; TEMP 36.1–36.6; O2SAT 92–100; BMI 36.4
--- NOTE | 2022-07-06 00:13 | NURSING ---
DR JIMENEZ UPDATED PT WAS TRIGGER SEPSIS AND RECEIVED 1L OF NS. NO NEW ORDERS DUE TO AFIB RVR DIAGNOSIS
[2022-07-06 03:42] LABS: Color, Urine Yellow (Yellow); Glucose, Dipstick 250 mg/dl (Normal); Ketone-Dipstick 5 mg/dl (Negative); Leukocyte Esterase-Dipstick 500 /ul (Negative); Nitrite-Dipstick Negative (Negative); Occult Blood-Urine 10 /ul (Negative); Protein-Dipstick 30 mg/dl (Negative); Urine Bilirubin Dipstick Negative (Negative); Urine Clarity Clear (Clear); Urine Urobilinogen Normal (Normal)
[2022-07-06 03:45] LABS: Absolute Lymphocyte Count 3.72 X10^3/uL (0.83-4.51); Basophil# 0.05 X10^3/uL; Basophil% 0.3 % (0-1); Eosinophil# 0.05 X10^3/uL; Eosinophils% 0.3 % (0-5); Hematocrit 44.5 % (37-47); Lymphocyte # 3.72 X10^3/ul (0.83-4.51); Lymphocyte % 25.4 % (19-41); Mean Corp Hgb Conc 31.5 g/dL (32-36); Mean Corpuscular Hgb 27.8 pg (27.0-32.0); Mean Corpuscular Volume 88.5 fL (81-99); Monocyte# 1.69 X10^3/uL; Monocyte% 11.6 % (0-10); NRBC Flagged by Analyzer 0.3 % (0-5); Neutrophil # 9.02 X10^3/uL (2.7-7.7); Neutrophil % 61.7 % (47-70); POSITIVE DIFFERENTIAL YES; Platelet Count 306 K/mm3 (150-450); RBC Distribution Width CV 13.9 % (11.6-14.6); RBC Distribution Width SD 44.1 fl (35.1-43.9); Red Blood Count 5.03 M/mm3 (4.2-5.4); White Blood Count 14.6 K/mm3 (4.4-11.0)
[2022-07-06 03:52] LABS: Urea Nitrogen, Urine 1023 mg/dL (NO RANGE EST.)
[2022-07-06 03:54] LABS: Differential Indicated SCAN CRITERIA MET
[2022-07-06 03:59] LABS: Bacteria 1+ /hpf (None Seen); Hyaline Cast 0-5 SEEN /lpf (0-5); Red Blood Cells-Urine 0-5 SEEN /hpf (0-5); Squamous Epithelial Cells - UA 0-5 SEEN /hpf (5-10); White Blood Cells 10-25 SEEN /hpf (0-5)
[2022-07-06 04:06] LABS: Polychromasia RARE
[2022-07-06 04:15] LABS: Troponin-I HS 35 pg/mL (3.0-54.0)
[2022-07-06 06:54] LABS: Troponin-I HS 36 pg/mL (3.0-54.0)
[2022-07-06 06:59] LABS: Anion Gap 12 (5-15); BUN 67 mg/dL (7-18); BUN/Creat Ratio 31.6 RATIO (10-20); Calcium,Total 8.5 mg/dL (8.5-10.1); Chloride 98 mmol/L (98-107); Creatinine, Serum 2.12 mg/dL (0.55-1.02); EST Glomerular Filtration Rate 25 mL/min (>60); Est Glom Filt Rate - Afr Amer 31 mL/min (>60); Estimated Creatinine Clearance 24.06 ml/min; Glucose 221 mg/dL (74-106); Potassium 4.5 mmol/L (3.5-5.1); Sodium Level 131 mmol/L (136-145)
[2022-07-06 07:10] LABS: Bedside Glucose 227 mg/dL (74-106)
--- NOTE | 2022-07-06 07:34 | PCM.CONS.C ---
Assessment & Plan Assessment/Plan (1) Atrial fibrillation with RVR: PLAN: Patient presents with atrial fibrillation with a rapid ventricular response rate. This is not a new finding. Her ventricular response rate at this time is controlled. She had been on anticoagulation and I would recommend that we continue the above. With respect to her rate control I would suggest that we increase her metoprolol to 100 mg daily long-acting. We can discontinue the diltiazem at this particular time. She will be followed up as an outpatient. She appears to be stable from the cardiovascular standpoint we will sign off and please reconsult as necessary. (2) Cardiomyopathy: PLAN: She does have a history of nonischemic cardiomyopathy. It is possible that the above is tachycardia mediated. The plan is for her to continue with anticoagulation and rate control and at an interval of dates she will undergo DC cardioversion. She does have some kidney injury at this particular time and her YOEL inhibitor or ARB will be on temporary hold. A beta-kinjal would be continued. (3) COVID: PLAN: She does have the above COVID-19 and will continue with supportive measures as per the hospitalist team. HPI Consult Data Date of Consult: 07/06/22 HPI Narrative HPI Narrative: MARIA DAWKINS, is a 62 F who presents generalized malaise and weakness to the emergency room and was noted to be in atrial fibrillation with rapid ventricular response rate, acute kidney injury and also mild congestive heart failure. She had presented in May of this year with palpitations and was diagnosed with new onset atrial fibrillation. She also was noted to have a cardiomyopathy with an estimated ejection fraction of 30% by echocardiogram. She underwent a cardiac catheterization which demonstrated normal coronary arteries she was started on beta-kinjal, YOEL inhibitor, as well as anticoagulation. She apparently did not tolerate the carvedilol and was recently switched over to metoprolol. She has had a mild cough. She was started on intravenous diltiazem with adequate control of her heart rate. She also contracted COVID-19 prior to this admission. [facility] Medical History Atrial fibrillation, new onset Cardiomyopathy HLD (hyperlipidemia) Hypertension Menopausal and female climacteric states Migraine headache Obesity Type II diabetes mellitus Home Medications glimepiride 1 mg tablet 1 tab PO BID diabetes 11/29/15 [History Last Taken Unknown] duloxetine 60 mg capsule,delayed release 120 mg PO QHS mental health 11/08/21 [History Last Taken Unknown] sitagliptin phos 50 mg-metformin ER 1,000 mg tablet,extend rel 24h mp (Janumet XR) 1 tab PO QPM diabetes 05/17/22 [History Last Taken Unknown] trazodone 100 mg tablet 100 mg PO QHS sleep 05/17/22 [History Last Taken Unknown] apixaban 5 mg tablet (Eliquis) 5 mg PO BID #60 tabs 05/19/22 [Rx Last Taken Unknown] dapagliflozin 5 mg tablet 5 mg PO DAILY #60 tabs 05/19/22 [Rx Last Taken Unknown] furosemide 20 mg tablet (Lasix) 20 mg PO DAILY #60 tabs 05/19/22 [Rx Last Taken Unknown] losartan 100 mg tablet 100 mg PO DAILY Check with primary doctor 07/06/22 [History Last Taken Unknown] metoprolol succinate 50 mg tablet,extended release 24 hr 50 mg PO DAILY Check with primary doctor 07/06/22 [History Last Taken Unknown] Allergy/AdvReac Type Severity Reaction Status Date / Time levofloxacin [From Levaquin] Allergy Other Verified 07/05/22 19:20 ANTIBIOTICS AdvReac Other Uncoded 07/05/22 19:20 Family History Mother Diabetes Psoriatic arthritis Rheumatoid arthritis Father COPD (chronic obstructive pulmonary disease) With concurrent tobacco use history. Myocardial infarction Heart disease Surgical History History of foot surgery Social History adopted: No household members: spouse housing: house number of children: 0 current occupational status: employed current occupation: works at [employer] pets and animals: Yes (kittens, dogs, horses) Smoking Status: Never smoker alcohol intake: never substance use type: does not use ROS Constitutional Constitutional: Denies fever(s) or weight loss Eyes Eyes: Reports systems reviewed and no addt'l complaints, except as documented ENT HEENT: Reports systems reviewed and no addt'l complaints, except as documented Cardiovascular Cardiovascular: Reports dyspnea at rest, dyspnea on exertion and palpitations; Denies chest pain at rest, chest pain with activity, edema or paroxysmal nocturnal dyspnea Respiratory/Chest Respiratory/Chest: Denies dyspnea on exertion, productive cough, shortness of breath at rest or shortness of breath with exertion Gastrointestinal Gastrointestinal: Denies change in bowel habits, nausea, vomiting or weight changes Genitourinary Genitourinary: Denies difficulty urinating Musculoskeletal Musculoskeletal: Denies joint stiffness or muscle weakness Integumentary Integumentary: Denies lesions Neurologic Neurologic: Denies dizziness or syncope Psychiatric Psychiatric: Denies anxiety Endocrine Endocrinology: Denies excessive sweating or fatigue Hematologic/Lymphatic Hematologic/Lymphatic: Denies anemia Allergic/Immunologic Allergic/Immunologic: Denies seasonal rhinorrhea Physical Exam Const alert, oriented x3 and no apparent distress General Appearance: cooperative HEENT hearing grossly normal bilaterally Head and Scalp: atraumatic Eyes EOMs intact bilaterally Neck General: normal visual inspection Chest inspection of chest normal and palpation of chest normal Resp normal respiratory effort Auscultation: clear to auscultation bilaterally Cardio S1 normal heart sound and S2 normal heart sound Jugular Venous Distention: JVD Rhythm: abnormal rhythm GI normal to inspection, nondistended, normoactive bowel sounds Extremity normal capillary refill and no pedal edema Peripheral Pulses: Yes pulses 2+ throughout and femoral pulses present Skin no rashes or lesions noted Neuro oriented x3 and CN's II-XII intact bilaterally Psych Appearance: grossly normal and appropriate Risk Stratification Risk Stratification Applicable: No Objective Data Vital Signs: Vital Signs Temp Pulse Resp BP Pulse Ox O2 Del Method 97.5 F L 97 25 H 127/85 H 100 Room Air 07/06/22 02:34 07/06/22 03:01 07/06/22 03:01 07/06/22 03:01 07/06/22 02:34 07/06/22 02:34 Oxygen Delivery Method Room Air Weight: 212 lb 4.882 oz Body Mass Index (BMI) 36.4 Intake & Output: Intake and Output for Last 24 Hours 07/04/22 07/05/22 07/06/22 23:59 23:59 23:59 Intake Total 1000 / 1000 544.00 / 544.00 Balance 1000 / 1000 544.00 / 544.00 Lab / Micro Data Result Diagrams: 07/06/22 03:40 07/06/22 05:35 Labs: Laboratory Results - last 24 hr 07/05/22 19:50: WBC 14.3 H, RBC 5.21, Hgb 14.4, Hct 46.4, MCV 89.1, MCH 27.6, MCHC 31.0 L, RDW Std Deviation 44.5 H, RDW Coeff of Patricia 13.9, Plt Count 341, MPV 10.4, Immature Gran % (Auto) 0.600, Neut % (Auto) 64.0, Lymph % (Auto) 25.0, [place] % (Auto) 10.0, Eos % (Auto) 0.1, Baso % (Auto) 0.3, Absolute Neuts (auto) 9.1 H, Absolute Lymphs (auto) 3.57, Nucleated RBC % 0.2 07/05/22 19:50: Sodium 128 L, Potassium 5.1, Chloride 96 L, Carbon Dioxide 21.0, Anion Gap 11, BUN 66 H, Creatinine 2.34 H, Estim Creat Clear Calc 21.80, Est GFR (MDRD) Af Amer 27 L, Est GFR (MDRD) Non-Af 23 L, BUN/Creatinine Ratio 28.2 H, Glucose 243 H, Calcium 9.1, Troponin I High Sens 35 07/06/22 03:00: Urine Color Yellow, Urine Clarity Clear, Urine pH 5.0, Ur Specific [place] 1.020, Urine Protein 30 H, Urine Glucose (UA) 250 H, Urine Ketones 5 H, Urine Occult Blood 10 H, Urine Nitrite Negative, Urine Bilirubin Negative, Urine Urobilinogen Normal, Ur Leukocyte Esterase 500 H, Urine RBC 0-5 SEEN, Urine WBC 10-25 SEEN, Ur Squamous Epith Cells 0-5 SEEN, Urine Bacteria 1+, Hyaline Casts 0-5 SEEN, Urine Mucus Not Reportable 07/06/22 03:00: Urine Creatinine 108.00, Urine Urea Nitrogen 1023 07/06/22 03:40: WBC 14.6 H, RBC 5.03, Hgb 14.0, Hct 44.5, MCV 88.5, MCH 27.8, MCHC 31.5 L, RDW Std Deviation 44.1 H, RDW Coeff of Patricia 13.9, Plt Count 306, MPV 10.0, Immature Gran % (Auto) 0.700, Neut % (Auto) 61.7, Lymph % (Auto) 25.4, [place] % (Auto) 11.6 H, Eos % (Auto) 0.3, Baso % (Auto) 0.3, Absolute Neuts (auto) 9.0 H, Absolute Lymphs (auto) 3.72, Nucleated RBC % 0.3, Diff Path Review May foll, Polychromasia RARE 07/06/22 03:40: Troponin I High Sens 35 07/06/22 05:35: Sodium 131 L, Potassium 4.5, Chloride 98, Carbon Dioxide 21.0, Anion Gap 12, BUN 67 H, Creatinine 2.12 H, Estim Creat Clear Calc 24.06, Est GFR (MDRD) Af Amer 31 L, Est GFR (MDRD) Non-Af 25 L, BUN/Creatinine Ratio 31.6 H, Glucose 221 H, Calcium 8.5 07/06/22 05:35: Troponin I High Sens 36 07/06/22 06:46: POC Glucose 227 H Micro: Microbiology 07/05/22 19:57 Nasal Secretion SARS-CoV-2 Antigen (Rapid) - Final SARS-CoV-2 (COVID 19) Cardiology Labs/Tests 07/05/22 19:50: WBC 14.3 H, RBC 5.21, Hgb 14.4, Hct 46.4, MCV 89.1, MCH 27.6, MCHC 31.0 L, Plt Count 341, MPV 10.4, Immature Gran % (Auto) 0.600, Neut % (Auto) 64.0, Lymph % (Auto) 25.0, [place] % (Auto) 10.0, Eos % (Auto) 0.1, Baso % (Auto) 0.3, Absolute Neuts (auto) 9.1 H, Nucleated RBC % 0.2 07/05/22 19:50: Sodium 128 L, Potassium 5.1, Chloride 96 L, Carbon Dioxide 21.0, Anion Gap 11, BUN 66 H, Creatinine 2.34 H, Est GFR (MDRD) Af Amer 27 L, Est GFR (MDRD) Non-Af 23 L, BUN/Creatinine Ratio 28.2 H, Glucose 243 H, Calcium 9.1 07/06/22 03:00: Urine Color Yellow, Urine Clarity Clear, Urine pH 5.0, Ur Specific [place] 1.020, Urine Protein 30 H, Urine Glucose (UA) 250 H, Urine Ketones 5 H, Urine Occult Blood 10 H, Urine Nitrite Negative, Urine Bilirubin Negative, Urine Urobilinogen Normal, Ur Leukocyte Esterase 500 H, Urine RBC 0-5 SEEN, Urine WBC 10-25 SEEN 07/06/22 03:40: WBC 14.6 H, RBC 5.03, Hgb 14.0, Hct 44.5, MCV 88.5, MCH 27.8, MCHC 31.5 L, Plt Count 306, MPV 10.0, Immature Gran % (Auto) 0.700, Neut % (Auto) 61.7, Lymph % (Auto) 25.4, [place] % (Auto) 11.6 H, Eos % (Auto) 0.3, Baso % (Auto) 0.3, Absolute Neuts (auto) 9.0 H, Nucleated RBC % 0.3 07/06/22 05:35: Sodium 131 L, Potassium 4.5, Chloride 98, Carbon Dioxide 21.0, Anion Gap 12, BUN 67 H, Creatinine 2.12 H, Est GFR (MDRD) Af Amer 31 L, Est GFR (MDRD) Non-Af 25 L, BUN/Creatinine Ratio 31.6 H, Glucose 221 H, Calcium 8.5 Rhythm: EKG: ECHO: Stress Test: Cardiac Cath: PCI: CT Surgery: Holter monitor: EPS: PPM: CXR: Chest CT Scan: Radiography Diagnostic Testing: Radiology Impression Chest X-Ray 07/05/22 20:00 IMPRESSION: There are no acute findings. Electronically Signed: Marc Poon MD at 20:30 EDT Reading Location ID and State: [facility] / [place] , Service support ,
[2022-07-06] MEDS: DULoxetine Hcl 60 MG Capsule 120 MG PO (08:30)
[2022-07-06] MEDS: Metoprolol(XL)Succ 100 MG Tablet PO (08:30)
[2022-07-06] MEDS: Glucerna Shake 120 ML LIQUID PO (08:31)
[2022-07-06] MEDS: APIXABAN 5 MG TABLET PO (08:31)
[2022-07-06] MEDS: Insulin Lispro 100 UNIT/ML INSULN.PEN SC (08:49)
--- NOTE | 2022-07-06 10:05 | CASEMGMT ---
RN CM called patient in room for initial transition planning/care coordination assessment. RN CM introduced self and role at [facility]. Patient is alert and oriented. Patient willing to participate in assessment and is able to answer all questions appropriately. Care providers, pharmacy, and demographics verified. Patient wishes to discharge home, denies need for home health at this time. Patient states she has no further needs or concerns at this time. CM to follow for discharge planning needs that may arise. PCP: Vaibhav Specialists: none Preferred Pharmacy: [facility] Insurance: [employer] Prescription Benefit: yes Living Will/HPOA: yes, Dominic Gardiner LNOK: Living Arrangements: Patient lives with in a 2 story home. Patient states she is independent and has stair lift to 2nd level in home. Transportation: self, DME/HHC: Patient states she has shower chair, grab bars, cane, and walker at home. No previous HHC or SNF Disposition Plan: Patient to discharge home with family support and follow-up plans in place. Radha WILSONN, RN, CM
[2022-07-06 10:15] LABS: Troponin-I HS 24 pg/mL (3.0-54.0)
--- NOTE | 2022-07-06 10:26 | DS.PCM_ITS ---
Providers Date of Admission: 07/05/22 Date of Discharge: 07/06/22 Primary Care Physician: Dr. Emile Esposito MD Reason For Visit: AFIB RVR Diagnosis Discharge Diagnosis (1) Atrial fibrillation with RVR: Status: Acute Code(s): I48.91 - Unspecified atrial fibrillation (2) Cardiomyopathy: Status: Acute Code(s): I42.9 - Cardiomyopathy, unspecified (3) COVID: Status: Acute Code(s): U07.1 - COVID-19 Medications at Discharge Home Medications glimepiride 1 mg tablet 1 tab PO BID diabetes 11/29/15 duloxetine 60 mg capsule,delayed release 120 mg PO QHS mental health 11/08/21 sitagliptin phos 50 mg-metformin ER 1,000 mg tablet,extend rel 24h mp (Janumet XR) 1 tab PO QPM diabetes 05/17/22 trazodone 100 mg tablet 100 mg PO QHS sleep 05/17/22 apixaban 5 mg tablet (Eliquis) 5 mg PO BID #60 tabs 05/19/22 dapagliflozin 5 mg tablet 5 mg PO DAILY #60 tabs 05/19/22 furosemide 20 mg tablet (Lasix) 20 mg PO DAILY #60 tabs 05/19/22 losartan 100 mg tablet 100 mg PO DAILY Check with primary doctor 07/06/22 metoprolol succinate 100 mg tablet,extended release 24 hr 100 mg PO DAILY #30 tabs 07/06/22 Hospital Course Operations None Procedures EKG Summary of Care Provided Minutes Spent on Discharge: 33 Hospital Course: Mrs. Sorto is a 62-year-old white female presents the emergency department at [facility] on 07/05/2022 with a chief complaint of general malaise. The patient indicated she not been feeling well for approximately 3 we eks and indicated she not been eating much although she was drinking water. She indicated she was not getting better. She was out in [place] for horse show and was around others who are sick but was never checked for COVID-19 out there. She presented to the emergency department here with the above symptoms and was found to be in A. fib with RVR. COVID-19 test was positive at presentation. Fatimah rubin was given metoprolol in the emergency department but her heart rate remained elevated and she was subsequently placed on a Cardizem drip. She had been on carvedilol previously but had adverse reactions in the but subsequently changed to metoprolol. She had a recent admission here early in May when she was diagnosed with A. fib. An echocardiogram was performed and showed a depressed ejection fraction at which time they felt it was likely mediated from her tachyarrhythmia. Cardiac catheterization was performed and negative for any obstructive lesions contributing to the above. She indicates she is been compliant with her medications. We suspect that her A. fib was exacerbated by her COVID-19 infection she subsequently had episodes of RVR. She was evaluated by cardiology and she was maintained on oral anticoagulation with Eliquis. With respect to her rate control her metoprolol XL was increased from 50 mg to 100 mg daily. Her heart rate was controlled and in the 80s at the time of discharge however she did remain in atrial fibrillation. With respect to her COVID-19 she was on room air throughout her hospital course and was otherwise stable. She did have some acute kidney injury on presentation which was resolving at the time of discharge. I did encourage her to maintain her fluid intake with at least 1500 to 1750 cc of fluid daily and eat small frequent meals to maintain nutrition even if she is not all that hungry. She is to report back to the emergency department if she develops any further shortness of breath or hypoxia is noted. Of note, her did test positive for COVID-19 as well. He evidently took a rapid test while in her room in the hospital and was asked to leave and became irate. He demanded her discharge be done immediately. The p carmen was to likely discharge her anyway and given her above stability I do feel that she is safe to go home however if she develops any further symptoms with regards to her shortness of breath she does need to return to the emergency department and she voiced understanding. Packs of it is contraindicated with her being on Eliquis. She is to follow-up with her primary care physician within the next week. I have instructed her to follow-up with cardiology within the next 2 to 4 weeks if she is not already scheduled from previous admission. It was requested that she quarantine for 5 days from positive test on 07/05/2022 and then mask for 5 days following until 07/15/2022 if in a public setting. She was discharged home in stable condition on 07/06/2022. Discharge diagnoses: Atrial fibrillation with RVR-RVR resolved DIVINA-resolving Acute COVID-19 infection Hyponatremia-resolved DM-2 Nonischemic cardiomyopathy-tachycardia mediated Hypertension Insomnia Obesity Physical Exam Const alert, oriented x3, no apparent distress and well nourished Constitutional Narrative: Obese, upper middle-aged white female, appears older than stated age, lying in bed, appears comfortable, on room air, nontoxic General Appearance: cooperative, comfortable, well kempt and well developed Orientation / Consciousness: awake Exam Limitations: no limitations Nutritional Appearance: obese HEENT normocephalic, head/scalp atraumatic, hearing grossly normal bilaterally and moist oral mucous membranes HEENT Narrative: Mallampati is 3, no thrush Resp normal respiratory effort, no retractions, no use of accessory muscles and clear to auscultation bilaterally Auscultation: Negative for crackles, rales, rhonchi or wheezes Cardio regular rate, regular rhythm, S1 normal heart sound, S2 normal heart sound, no murmurs, no rub, no gallops and no clicks GI normal to inspection, nondistended, normoactive bowel sounds, soft to palpation, non-tender and non-distended Extremity no clubbing, cyanosis or edema Extremity Narrative: 2+ pedal pulses Neuro oriented x3, CN's II-XII intact bilaterally, moves all extremities and no focal motor deficits Neuro Narrative: Mild generalized weakness due to fatigue with COVID-19 infection Sensorium / Orientation: awake, alert, oriented to person, oriented to place and oriented to time Psych affect normal Weight / BMI Weight Weight: 96.3 kg Body Mass Index (BMI) 36.4 ABG / Lab / Microbiology Data Result Diagrams: 07/06/22 03:40 07/06/22 05:35 Laboratory: Laboratory Results - last 24 hr 07/05/22 19:50: WBC 14.3 H, RBC 5.21, Hgb 14.4, Hct 46.4, MCV 89.1, MCH 27.6, MCHC 31.0 L, RDW Std Deviation 44.5 H, RDW Coeff of Patricia 13.9, Plt Count 341, MPV 10.4, Immature Gran % (Auto) 0.600, Neut % (Auto) 64.0, Lymph % (Auto) 25.0, Yell % (Auto) 10.0, Eos % (Auto) 0.1, Baso % (Auto) 0.3, Absolute Neuts (auto) 9.1 H, Absolute Lymphs (auto) 3.57, Nucleated RBC % 0.2 07/05/22 19:50: Sodium 128 L, Potassium 5.1, Chloride 96 L, Carbon Dioxide 21.0, Anion Gap 11, BUN 66 H, Creatinine 2.34 H, Estim Creat Clear Calc 21.80, Est GFR (MDRD) Af Amer 27 L, Est GFR (MDRD) Non-Af 23 L, BUN/Creatinine Ratio 28.2 H, Glucose 243 H, Calcium 9.1, Troponin I High Sens 35 07/06/22 03:00: Urine Color Yellow, Urine Clarity Clear, Urine pH 5.0, Ur Specific [place] 1.020, Urine Protein 30 H, Urine Glucose (UA) 250 H, Urine Ketones 5 H, Urine Occult Blood 10 H, Urine Nitrite Negative, Urine Bilirubin Negative, Urine Urobilinogen Normal, Ur Leukocyte Esterase 500 H, Urine RBC 0-5 SEEN, Urine WBC 10-25 SEEN, Ur Squamous Epith Cells 0-5 SEEN, Urine Bacteria 1+, Hyaline Casts 0-5 SEEN, Urine Mucus Not Reportable 07/06/22 03:00: Urine Creatinine 108.00, Urine Urea Nitrogen 1023 07/06/22 03:40: WBC 14.6 H, RBC 5.03, Hgb 14.0, Hct 44.5, MCV 88.5, MCH 27.8, MCHC 31.5 L, RDW Std Deviation 44.1 H, RDW Coeff of Patricia 13.9, Plt Count 306, MPV 10.0, Immature Gran % (Auto) 0.700, Neut % (Auto) 61.7, Lymph % (Auto) 25.4, Yell % (Auto) 11.6 H, Eos % (Auto) 0.3, Baso % (Auto) 0.3, Absolute Neuts (auto) 9.0 H, Absolute Lymphs (auto) 3.72, Nucleated RBC % 0.3, Diff Path Review May foll, Polychromasia RARE 07/06/22 03:40: Troponin I High Sens 35 07/06/22 05:35: Sodium 131 L, Potassium 4.5, Chloride 98, Carbon Dioxide 21.0, Anion Gap 12, BUN 67 H, Creatinine 2.12 H, Estim Creat Clear Calc 24.06, Est GFR (MDRD) Af Amer 31 L, Est GFR (MDRD) Non-Af 25 L, BUN/Creatinine Ratio 31.6 H, Glucose 221 H, Calcium 8.5 07/06/22 05:35: Troponin I High Sens 36 07/06/22 06:46: POC Glucose 227 H 07/06/22 09:50: Troponin I High Sens 24 Microbiology: Microbiology 07/05/22 19:57 Nasal Secretion SARS-CoV-2 Antigen (Rapid) - Final SARS-CoV-2 (COVID 19) Radiography Diagnostic Testing: Radiology Impression Chest X-Ray 07/05/22 20:00 IMPRESSION: There are no acute findings. Electronically Signed: Marc Poon MD at 20:30 EDT Reading Location ID and State: [facility] / [place] , Service support , D/C Instructions Discharge Diet: Low fat / Low cholesterol and 1800 Calorie Control Diet Return to work on: 07/12/22 (Will need a mask until 07/15/2022) Meaningful Use Info Meaningful Use Diagnoses (Choose all that apply): None applicable Discharge Plan Admission Admit Date/Time: 07/05/22 23:43 Primary Reason for Your Visit: Malaise Attending Provider: Yajaira Bryan Primary Care Provider: Emile Esposito Consulting Providers: Florencio Marti Instructions Additional Instructions / Restrictions: 1. Please quarantine in your home for 5 days from 07/05/2022 then for 5 days following wear a mask in public environments and when around people 2. Please hydrate well and eat small frequent meals if appetite is suppressed--> fluid intake of 1500 to 1750 cc daily 3. Please return to the emergency department if you develop worsening shortness of breath or low oxygen saturations 4. Please have primary care physician get a basic metabolic profile within the next 3 to 5 days to follow-up on your renal function and electrolyte levels Discharge Orders/Prescriptions Prescriptions: New metoprolol succinate 100 mg Tablet Extended Release 24 Hr 100 mg PO DAILY Qty: 30 1RF Continued glimepiride 1 MG tablet 1 tab PO BID Label Comments: diabetes duloxetine 60 mg capsule,delayed release(DR/EC) 120 mg PO QHS trazodone 100 mg Tablet 100 mg PO QHS Janumet XR 50-1,000 mg Tablet, Er Multiphase 24 Hr 1 tab PO QPM Eliquis 5 mg tablet 5 mg PO BID Qty: 60 0RF furosemide [Lasix] 20 mg tablet 20 mg PO DAILY Qty: 60 0RF dapagliflozin 5 mg tablet 5 mg PO DAILY Qty: 60 0RF losartan 100 mg Tablet 100 mg PO DAILY Discontinued metoprolol succinate 50 mg Tablet Extended Release 24 Hr 50 mg PO DAILY Referrals / Follow Up: Emile Esposito MD [Primary Care Provider] - Within 1 Week Calin Morrison MD [Med Staff - Active Staff] - Within 2 Weeks Disposition Disposition (needs filled in before D/C Order can be placed): Home, Self Care Charges/Coding Visit Charges Inpatient E&M: [id number] Disch Hosp
[2022-07-06 15:17] LABS: Pathologist Review Reviewed
== END 2022-07-06 11:35 | disposition home or self-care (01) | DRG 308 ==
LOC: ED 22:54 → PCU 07-06 02:16
PROVIDERS: Emergency Provider Emergency Medicine; PCP Family Medicine; Visit Provider Internal Medicine
DX: I48.91 Unspecified atrial fibrillation (principal); U07.1 COVID-19; E87.1 Hypo-osmolality and hyponatremia; N17.9 Acute kidney failure, unspecified; I42.8 Other cardiomyopathies; E11.69 Type 2 diabetes mellitus with other specified complication; I10 Essential (primary) hypertension; E78.5 Hyperlipidemia, unspecified; E86.0 Dehydration; I25.10 Atherosclerotic heart disease of native coronary artery without angina pectoris; G47.00 Insomnia, unspecified; E66.9 Obesity, unspecified; Z68.36 Body mass index [BMI] 36.0-36.9, adult; Z79.01 Long term (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 of anticoagulants; Z79.84 Long term (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 of oral hypoglycemic drugs; Z79.899 Other long term (current) drug therapy
CPT/HCPCS: 36415; 71045; 80048; 81001; 82570; 82962; 84484; 84540; 85025; 87811; 93005; 99285; J7030; J7050; A4216

== ENCOUNTER 2022-08-09 03:01 | Emergency (ER) | payer BC, SELFPAY ==
[2022-08-09] VITALS (8 sets, daily range): BP systolic 94–135; BP diastolic 68–118; PULSE 99–110; RESP 18–26; TEMP 36.1–36.4; O2SAT 96–100; BMI 36.8
--- NOTE | 2022-08-09 03:06 | RAD_ITS ---
EXAM: XR CHEST, 1 VIEW CLINICAL INDICATION: Neuro deficit, acute, stroke suspected Neuro deficit, acute, stroke suspected TECHNIQUE: Frontal view of the chest. This report was created using [employer] report generation technology. COMPARISON: CTA head and neck done today. Chest x-ray 07/05/2022. FINDINGS: LUNGS AND PLEURAL SPACES: There is apparent elevation of the right hemidiaphragm. A moderately large right pleural effusion was demonstrated on CTA of the neck, and the apparent elevated right hemidiaphragm probably represents a subpulmonic pleural effusion. There is focal infiltration and/or atelectasis in the medial right lower lung field. No pneumothorax. HEART: The heart size is probably normal, taking into account limited depth of inspiration as well as AP portable technique. MEDIASTINUM: Central airways and mediastinal contour are unremarkable. BONES/JOINTS: Unremarkable. SOFT TISSUES: Unremarkable. RAD/Chest 1 View IMPRESSION: Suspect a moderately large subpulmonic right pleural effusion. There is overlying infiltration and/or atelectasis in the right lower lobe. Electronically Signed: Gabino Ruiz MD at 4:30 EST ,
--- NOTE | 2022-08-09 03:06 | CT_ITS ---
EXAM: CT ANGIOGRAPHY HEAD AND NECK WITH INTRAVENOUS CONTRAST CLINICAL INDICATION: Neuro deficit, acute, stroke suspected Neuro deficit, acute, stroke suspected TECHNIQUE: [place]/head and neck CT angiography protocol performed with intravenous contrast. This CT exam was performed using one or more of the following dose reduction techniques: automated exposure control, adjustment of the mA and/or kV according to patient size, and/or use of iterative reconstruction technique. This report was created using [employer] report generation technology. MIP reconstructed images were created and reviewed. CONTRAST: IV 100mL [id number] RADIATION DOSE: CTDIvol = 33.15 mGy, DLP = 757.17 mGy-cm COMPARISON: None. FINDINGS: LIMITATIONS: Evaluation of the neck arteries is limited by motion artifacts. HEAD: RIGHT ANTERIOR CEREBRAL ARTERY: Unremarkable. No significant stenosis at the visualized segments. Anterior communicating artery is present. No aneurysm. RIGHT MIDDLE CEREBRAL ARTERY: There is occlusion of a proximal right M2 branch of the right middle cerebral artery, probably acute.. No aneurysm. RIGHT POSTERIOR CEREBRAL ARTERY: Unremarkable. No occlusion or significant stenosis. No aneurysm. RIGHT INTRACRANIAL INTERNAL CAROTID ARTERY: Mild arthroscopic calcification of the cavernous carotid artery. No significant stenosis. No dissection or occlusion. RIGHT INTRACRANIAL VERTEBRAL ARTERY: Unremarkable. No significant stenosis. No dissection or occlusion. LEFT ANTERIOR CEREBRAL ARTERY: Unremarkable. No significant stenosis at the visualized segments. No aneurysm. LEFT MIDDLE CEREBRAL ARTERY: Unremarkable. No significant stenosis at the visualized segments. No aneurysm. LEFT POSTERIOR CEREBRAL ARTERY: Unremarkable. No occlusion or significant stenosis. No aneurysm. LEFT INTRACRANIAL INTERNAL CAROTID ARTERY: Mild atherosclerotic calcification of the cavernous carotid artery. No significant stenosis. No dissection or occlusion. LEFT INTRACRANIAL VERTEBRAL ARTERY: Unremarkable. No significant stenosis. No dissection or occlusion. BASILAR ARTERY: Unremarkable. No significant stenosis. No aneurysm. OTHER VASCULATURE: No vascular malformation. NECK: RIGHT COMMON CAROTID ARTERY: Unremarkable. No significant stenosis. No dissection or occlusion. RIGHT EXTRACRANIAL INTERNAL CAROTID ARTERY: Unremarkable. No significant stenosis. No dissection or occlusion. RIGHT EXTERNAL CAROTID ARTERY: Unremarkable. No occlusion. RIGHT EXTRACRANIAL VERTEBRAL ARTERY: Unremarkable. No significant stenosis. No dissection or occlusion. LEFT COMMON CAROTID ARTERY: Unremarkable. No significant stenosis. No dissection or occlusion. LEFT EXTRACRANIAL INTERNAL CAROTID ARTERY: Unremarkable. No significant stenosis. No dissection or occlusion. LEFT EXTERNAL CAROTID ARTERY: Unremarkable. No occlusion. LEFT EXTRACRANIAL VERTEBRAL ARTERY: Unremarkable. No significant stenosis. No dissection or occlusion. GREAT VESSELS OF AORTIC ARCH: Unremarkable as visualized. Normal anatomy, patent. LUNG APICES: Unremarkable as visualized. PLEURAL SPACE: There is a moderately large right pleural effusion. HEAD and NECK: BONES/JOINTS: Unremarkable. No discrete lytic or blastic abnormalities. SOFT TISSUES: Unremarkable. CAROTID STENOSIS REFERENCE USING NASCET CRITERIA: % ICA stenosis = (1 - narrowest ICA diameter/diameter of distal cervical ICA) x 100. Mild - <50% stenosis. Moderate - 50-69% stenosis. Severe - 70-94% stenosis. Near occlusion - 95-99% stenosis. Occluded - 100% stenosis. CT/STROKE CTA Head AND Neck W/Con IMPRESSION: 1. Occlusion of a proximal M2 branch of the right middle cerebral artery. 2. No other evidence for hemodynamically significant arterial stenosis or large vessel occlusion. Detailed visualization of neck arteries is limited by patient motion. 3. Incidental finding of a moderately large right pleural effusion. N.B. : The above Results were Read Back by Gabino Ruiz MD to Florencio Bean DO, and understanding confirmed on 08/09/2022 03:42:54 (ET). Electronically Signed: Gabino Ruiz MD at 3:49 EST ,
--- NOTE | 2022-08-09 03:06 | CT_ITS ---
EXAM: CT HEAD WITHOUT INTRAVENOUS CONTRAST CLINICAL INDICATION: Neuro deficit, acute, stroke suspected Neuro deficit, acute, stroke suspected TECHNIQUE: Multiple axial images were obtained of the head without intravenous contrast. This CT exam was performed using one or more of the following dose reduction techniques: automated exposure control, adjustment of the mA and/or kV according to patient size, and/or use of iterative reconstruction technique. This report was created using [employer] report generation technology. COMPARISON: None. FINDINGS: BRAIN AND EXTRA-AXIAL SPACES: Unremarkable. No intra- or extra-axial hemorrhage. No evidence of acute infarct. No intracranial mass or mass effect. There is preservation of the coburn/white matter interface. Posterior fossa structures are unremarkable. Ventricles are appropriate for age. No hydrocephalus. Basal cisterns are patent. BONES/JOINTS: Unremarkable. No discrete lytic or blastic abnormalities. VASCULATURE: There is atherosclerotic calcification of the cavernous carotid arteries. SINUSES: There is minimal mucoperiosteal thickening in the maxillary sinuses. There is no evidence for acute sinusitis. MASTOID AIR CELLS: Unremarkable. Clear. ORBITS: Visualized globes, extraocular muscles, optic nerves and retrobulbar fat appear unremarkable. ASPECTS score: 10. CT/STROKE Brain/Head without Cont IMPRESSION: No demonstrated acute intracranial process. N.B. : The above Results were Read Back by Gabino Ruiz MD to Florencio Bean DO, and understanding confirmed on 08/09/2022 03:18:43 (ET). Electronically Signed: Gabino Ruiz MD at 3:21 EST Reading Location ID and State: [facility] / [place] , Service support ,
--- NOTE | 2022-08-09 03:06 | EKG12_ITS ---
Test Reason : STROKE Blood Pressure : / mmHG Vent. Rate : 111 BPM Atrial Rate : 000 BPM P-R Int : 000 ms QRS Dur : 090 ms QT Int : 344 ms P-R-T Axes : 000 -42 130 degrees QTc Int : 467 ms Atrial fibrillation with rapid ventricular response Left axis deviation Possible Anterior infarct , age undetermined Abnormal ECG Confirmed by SANJU MEEHAN, ARIE ([id number]), online editor GABRIEL DURHAM ([id number]) on 08/09/2022 12:11:20 PM Referred By: Confirmed By:ARIE BILLS MD
--- NOTE | 2022-08-09 03:08 | EDS_ITS ---
HPI History of Present Illness Chief Complaint: Neuro S/Sx Informant: patient and EMS Onset/Context/Timing Onset: Today Context: Sudden Onset Timing: Continuous Quality and Location: Positive for Left Facial Droop, Left Arm Weakness and Left Leg Weakness Worsened by: Nothing Relieved by: Nothing Associated Symptoms Associated Symptoms: Negative for Headache, Nausea, Vomiting or Chest Pain Narrative Narrative: Patient presents with left facial weakness, left arm weakness, and left leg weakness that began when she woke up tonight. Patient states she went to bed around 8 PM last evening. Patient was feeling normal at that time. Patient st ates that when she woke up she had difficulty moving her left arm and left side of her face. Patient had difficulty speaking. Patient denies any headaches. Patient denies any chest pain. Patient denies any nausea or vomiting. Patient denies any visual changes. [facility] Medical History Atrial fibrillation, new onset Cardiomyopathy HLD (hyperlipidemia) Hypertension Menopausal and female climacteric states Migraine headache Obesity Type II diabetes mellitus Home Medications duloxetine 60 mg capsule,delayed release 120 mg PO QHS mental health 11/08/21 [History Last Taken Unknown] trazodone 100 mg tablet 100 mg PO QHS sleep 05/17/22 [History Last Taken Unknown] apixaban 5 mg tablet (Eliquis) 5 mg PO BID #60 tabs 05/19/22 [Rx Last Taken Unknown] furosemide 20 mg tablet (Lasix) 20 mg PO DAILY #60 tabs 05/19/22 [Rx Last Taken Unknown] losartan 100 mg tablet 100 mg PO DAILY Check with primary doctor 07/06/22 [History Last Taken Unknown] metoprolol succinate 100 mg tablet,extended release 24 hr 100 mg PO DAILY #30 tabs 07/06/22 [Rx Last Taken Unknown] atorvastatin 40 mg tablet 40 mg PO QHS 08/09/22 [History Last Taken Unknown] insulin glargine 100 unit/mL (3 mL) subcutaneous pen (Lantus Solostar U-100 Insulin) 20 unit subcut QHS 08/09/22 [History Last Taken Unknown] insulin lispro 100 unit/mL subcutaneous pen 4 unit subcut TID 08/09/22 [History Last Taken Unknown] Allergy/AdvReac Type Severity Reaction Status Date / Time levofloxacin [From Levaquin] Allergy Other Verified 07/05/22 19:20 ANTIBIOTICS AdvReac Other Uncoded 07/05/22 19:20 Family History Mother Diabetes Psoriatic arthritis Rheumatoid arthritis Father COPD (chronic obstructive pulmonary disease) With concurrent tobacco use history. Myocardial infarction Heart disease Surgical History History of foot surgery Social History adopted: No household members: spouse housing: house number of children: 0 current occupational status: employed current occupation: works at [employer] pets and animals: Yes (kittens, dogs, horses) Smoking Status: Never smoker alcohol intake: never substance use type: does not use ROS ROS ED Constitutional Constitutional ED: Denies chills or fever(s) Eyes Eyes: Denies blurry vision or change in vision ENT ENT ED: Denies rhinorrhea or sore throat Cardiovascular Cardiovascular: Denies chest pain or palpitations Respiratory/Chest Respiratory/Chest: Denies cough or dyspnea Gastrointestinal Gastrointestinal: Denies nausea or vomiting Genitourinary Genitourinary ED: Denies dysuria or hematuria Musculoskeletal Musculoskeletal: Denies back pain or neck pain Integumentary Denies abscess or rash Neurologic Neurologic: Reports weakness; Denies headache(s) Allergic/Immunologic Allergic/Immunologic ED: Denies mouth swelling or urticaria EXAM Physical Exam Const Vital Signs: 08/09/22 03:02 08/09/22 03:06 08/09/22 03:48 Temperature 96.9 F L Temperature Source Temporal Pulse Rate 108 H 105 H Respiratory Rate 26 H 24 H Blood Pressure 97/68 120/89 H Blood Pressure Mean 77 99 Pulse Ox 99 96 Oxygen Delivery Method Room Air Nasal Cannula Nasal Cannula Oxygen Flow Rate (L/min) 2 2 08/09/22 03:51 08/09/22 04:02 08/09/22 04:02 Temperature 97.3 F L Temperature Source Temporal Pulse Rate 101 H 105 H 108 H Respiratory Rate 18 22 H 18 Blood Pressure 120/89 H 94/74 94/74 Blood Pressure Mean 99 80 80 Pulse Ox 96 100 98 Oxygen Delivery Method Nasal Cannula Nasal Cannula Nasal Cannula Oxygen Flow Rate (L/min) 2 2 2 Positive well nourished and well developed General Appearance ED: well developed and NAD HEENT Reports moist mucous membranes Eyes EOMs intact bilaterally Neck supple and no JVD Resp normal respiratory effort and clear to auscultation bilaterally Cardio Rate: regular rate Rhythm: abnormal rhythm irregularly irregular GI soft to palpation and non-tender Neuro oriented x3 and no sensory deficits noted Gabby Coma Scale: document GCS findings Spontaneous Obeys Commands Oriented 15 Sensorium / Orientation: alert Motor Exam: strength abnormal other (Strength is 3 out of 5 in the left upper extremity and 4 out of 5 in the left lower extremity. There is a left facial weakness. The eyebrows elevate equally.) Psych mental status grossly normal NIHSS NIHSS Initial: 1a Level of Consciousness: 0 1b LOC Questions (Score 2 if aphasic/stupor): 0 1c LOC Commands (Only score 1st attempt): 0 2 Best Gaze (If aphasic, use reflexive mvmts.): 0 3 Visual: 0 4 Facial Palsy: 2 5 Motor Arm Right (UN = amputation/fusion): 0 5 Motor Arm Left: 3 6 Motor Leg Right: 0 6 Motor Leg Left: 1 7 Limb ataxia (Only + if out of proportion): 1 8 Sensory (Aphasia/stupor=0 or 1, coma=2): 0 9 Best Language: 1 10 Dysarthria (mute, coma=2, intubated=UN): 0 11 Extinction and Inattention (only scored if +): 0 Total Score: 8 MDM MDM MDM Narrative Medical decision making narrative: Prehospital stroke alert was called. CT scan of the brain was obtained. There is no acute intracranial abnormality. This was interpreted by the radiologist and reviewed by myself. CTA of the head neck was obtained. There is an occlusion of the proximal M2 branch of the right middle cerebral artery. This was interpreted by the radiologist and reviewed by myself. CBC shows a mild anemia with a hemoglobin of 11.1 and hematocrit 36.4. PT was 18.1. INR is 1.5. PTT was 33.8. Comprehensive metabolic profile showed a mild hyperkalemia 5.5. There is moderate hemolysis. BUN was 50 and creatinine was 1.73. These are consistent with prior results. High-sensitivity troponin was normal at 18. EKG was obtained. On my interpretation, it shows atrial fibrillation with a rate of 111. There is left axis deviation at -42. QRS interval and QTc intervals are essentially within normal limits. There are no acute ST or T wave changes. Portable 1 view chest x-ray was obtained. On my interpretation, there is a right pleural effusion. There is atelectasis versus infiltrate in the right lower lobe. There is normal cardiac silhouette. Bony thorax is normal. Radiologist also interpreted the x-ray and agrees. Case was discussed with Dr. Bryan, stroke neurologist at [facility]. Patient will be transferred there to the emergency department for an acute LVO stroke team evaluation. Patient and family understood and were agreeable with the plan. All questions were answered. Lab Data Attestation: I reviewed the patient's lab results. Labs: Laboratory Results - last 24 hr 08/09/22 08/09/22 08/09/22 02:50 02:50 02:50 WBC 8.6 RBC 4.10 L Hgb 11.1 L Hct 36.4 L MCV 88.8 MCH 27.1 MCHC 30.5 L RDW Std Deviation 57.3 H RDW Coeff of Patricia 18.0 H Plt Count 478 H MPV 10.0 Immature Gran % (Auto) 0.600 Neut % (Auto) 56.1 Lymph % (Auto) 25.7 [place] % (Auto) 15.4 H Eos % (Auto) 0.9 Baso % (Auto) 1.3 H Absolute Neuts (auto) 4.8 Absolute Lymphs (auto) 2.22 Nucleated RBC % 0 PT 18.1 H INR 1.5 APTT 33.8 Sodium 134 L Potassium 5.5 H Chloride 100 Carbon Dioxide 25.0 Anion Gap 9 BUN 50 H Creatinine 1.73 H Est GFR (MDRD) Af Amer 39 L Est GFR (MDRD) Non-Af 32 L BUN/Creatinine Ratio 28.9 H Glucose 87 Calcium 8.6 Troponin I High Sens 18 Radiography Diagnostic Testing: Clinical Impression(s) from Imaging Studies Brain CT 08/09/22 03:06 IMPRESSION: No demonstrated acute intracranial process. N.B. : The above Results were Read Back by Gabino Ruiz MD to Florencio Bean DO, and understanding confirmed on 08/09/2022 03:18:43 (ET). Electronically Signed: Gabino Ruiz MD at 3:21 EST , ADDENDUM: 08/09/22 0328 IMPRESSION: No demonstrated acute intracranial process. N.B. : The above Results were Read Back by Gabino Ruiz MD to Florencio Bean DO, and understanding confirmed on 08/09/2022 03:18:43 (ET). Electronically Signed: Gabino Ruiz MD at 3:21 EST , Chest X-Ray 08/09/22 03:06 IMPRESSION: Suspect a moderately large subpulmonic right pleural effusion. There is overlying infiltration and/or atelectasis in the right lower lobe. Electronically Signed: Gabino Ruiz MD at 4:30 EST , Head/Neck CTA 08/09/22 03:06 IMPRESSION: 1. Occlusion of a proximal M2 branch of the right middle cerebral artery. 2. No other evidence for hemodynamically significant arterial stenosis or large vessel occlusion. Detailed visualization of neck arteries is limited by patient motion. 3. Incidental finding of a moderately large right pleural effusion. N.B. : The above Results were Read Back by Gabino Ruiz MD to Florencio Bean DO, and understanding confirmed on 08/09/2022 03:42:54 (ET). Electronically Signed: Gabino Ruiz MD at 3:49 EST , ADDENDUM: 08/09/22 0355 IMPRESSION: 1. Occlusion of a proximal M2 branch of the right middle cerebral artery. 2. No other evidence for hemodynamically significant arterial stenosis or large vessel occlusion. Detailed visualization of neck arteries is limited by patient motion. 3. Incidental finding of a moderately large right pleural effusion. N.B. : The above Results were Read Back by Gabino Ruiz MD to Florencio Bean DO, and understanding confirmed on 08/09/2022 03:42:54 (ET). Electronically Signed: Gaibno Ruiz MD at 3:49 EST , EKG Initial EKG: Attestation: I personally reviewed and interpreted this EKG as follows: Interpretation: No Acute Injury Pattern and Atrial Fibrillation (111) Prior EKG tracings: available for review Prior: Unchanged (07/05/2022) Critical Care Time Critical Care Time: Yes Critical care time (excluding procedures): 30-74 minutes (40), Including time spent:, Discussing w/Patient &/or Family/Solution Strategist, Discussing w/Consultants, Arranging Admission or Transfer and Performing Direct Patient Care at Bedside Discharge Plan Triage Chief Complaint: Neuro S/Sx ED Provider: Florencio Bean Dx/Rx/DC Orders Clinical Impression: Stroke, Hypertension, Atrial fibrillation Prescriptions: No Action duloxetine 60 mg capsule,delayed release(DR/EC) 120 mg PO QHS trazodone 100 mg Tablet 100 mg PO QHS Eliquis 5 mg tablet 5 mg PO BID Qty: 60 0RF furosemide [Lasix] 20 mg tablet 20 mg PO DAILY Qty: 60 0RF losartan 100 mg Tablet 100 mg PO DAILY metoprolol succinate 100 mg Tablet Extended Release 24 Hr 100 mg PO DAILY Qty: 30 1RF atorvastatin 40 mg tablet 40 mg PO QHS insulin lispro 100 unit/mL insulin pen 4 unit SUBCUT TID insulin glargine [Lantus Solostar U-100 Insulin] 100 unit/mL (3 mL) insulin pen 20 unit SUBCUT QHS Primary Care Provider: Emile Esposito Referrals: Emile Esposito MD [Primary Care Provider] - Disposition Disposition: Acute Care Hospital Discharge Location: [facility]
[2022-08-09 03:21] LABS: Absolute Lymphocyte Count 2.22 X10^3/uL (0.83-4.51); Absolute Neutrophil Count 4.8 X10^3/uL (2.0-7.7); Basophil# 0.11 X10^3/uL; Basophil% 1.3 % (0-1); Eosinophil# 0.08 X10^3/uL; Eosinophils% 0.9 % (0-5); Hematocrit 36.4 % (37-47); Hemoglobin 11.1 g/dL (12.0-15.0); Lymphocyte # 2.22 X10^3/ul (0.83-4.51); Lymphocyte % 25.7 % (19-41); Mean Corp Hgb Conc 30.5 g/dL (32-36); Mean Corpuscular Hgb 27.1 pg (27.0-32.0); Mean Corpuscular Volume 88.8 fL (81-99); Monocyte# 1.33 X10^3/uL; Monocyte% 15.4 % (0-10); NRBC Flagged by Analyzer 0 % (0-5); Neutrophil # 4.84 X10^3/uL (2.7-7.7); Neutrophil % 56.1 % (47-70); Platelet Count 478 K/mm3 (150-450); RBC Distribution Width SD 57.3 fl (35.1-43.9); White Blood Count 8.6 K/mm3 (4.4-11.0)
[2022-08-09 03:30] LABS: International Normalized Ratio 1.5; Prothrombin Time (Protime)PT. 18.1 SECONDS (11.7-14.9)
[2022-08-09 03:32] LABS: Partial Thromboplast Time 33.8 Seconds (24.1-36.2)
[2022-08-09 03:44] LABS: Anion Gap 9 (5-15); BUN 50 mg/dL (7-18); BUN/Creat Ratio 28.9 RATIO (10-20); Calcium,Total 8.6 mg/dL (8.5-10.1); Chloride 100 mmol/L (98-107); Creatinine, Serum 1.73 mg/dL (0.55-1.02); EST Glomerular Filtration Rate 32 mL/min (>60); Est Glom Filt Rate - Afr Amer 39 mL/min (>60); Glucose 87 mg/dL (74-106); Potassium 5.5 mmol/L (3.5-5.1); Sodium Level 134 mmol/L (136-145); Troponin-I HS 18 pg/mL (3.0-54.0)
--- NOTE | 2022-08-09 04:21 | ED.RN ---
Patient needs transported emergently to [facility] for clot removal. [facility] and life flight are not flying due to weather, they do not have critical care ground available. [facility] called and their ETA would be 0800. [facility] called to see if they can arrange any transport quicker. l
--- NOTE | 2022-08-09 04:31 | ED.RN ---
[facility] [id number]
== END 2022-08-09 05:59 | disposition short-term general hospital (02) ==
PROVIDERS: Emergency Provider Emergency Medicine; PCP Family Medicine; Visit Provider Emergency Medicine
DX: I63.311 Cerebral infarction due to thrombosis of right middle cerebral artery (principal); I42.9 Cardiomyopathy, unspecified; I48.91 Unspecified atrial fibrillation; E11.9 Type 2 diabetes mellitus without complications; Z79.4 Long term (current) use of insulin; I10 Essential (primary) hypertension; E78.5 Hyperlipidemia, unspecified; Z79.899 Other long term (current) drug therapy
CPT/HCPCS: 70450; 70496; 70498; 71045; 80048; 84484; 85025; 85610; 85730; 93005; 99285; Q9967; A4216

== ENCOUNTER 2022-09-08 18:56 | Emergency (ER) | payer BC, SELFPAY ==
[2022-09-08 18:58] VITALS: BP 112/74; PULSE 100; RESP 16; TEMP 36.4; O2SAT 97; BMI 34.9
--- NOTE | 2022-09-08 22:13 | RAD_ITS ---
INDICATION: Left shoulder pain after fall EXAMINATION/TECHNIQUE: X-RAY - LEFT XR Shoulder Min 2 Views 2 VIEWS COMPARISON: None. FINDINGS: SOFT TISSUES: No soft tissue swelling or gas. No radiopaque foreign body. BONES/JOINTS: No acute fracture or subluxation.. Normal alignment. Acromioclavicular DJD. No sclerotic or destructive changes observed. RAD/Shoulder min 2 Views IMPRESSION: No acute abnormal finding in the left shoulder. Acromioclavicular DJD. Electronically Signed: Gera Lincoln MD at 22:40 EST ,
--- NOTE | 2022-09-08 22:20 | RAD_ITS ---
INDICATION: Right hand pain after fall EXAMINATION/TECHNIQUE: X-RAY - RIGHT XR Hand Min 3 Views 3 VIEWS COMPARISON: None. FINDINGS: SOFT TISSUES: No soft tissue swelling or gas. No radiopaque foreign body. BONES/JOINTS: No acute fracture or subluxation.. Normal alignment. Mild interphalangeal DJD. No sclerotic or destructive changes observed. IMPRESSION No acute abnormal finding. Electronically Signed: Gera Lincoln MD at 22:41 EST , RAD/Hand Min 3 Views IMPRESSION: undefined
[2022-09-08] MEDS: HYDROcodone Bitartrate/Apap 5/325 Tablet PO (22:27)
--- NOTE | 2022-09-08 23:49 | ED.VIS.FALL ---
HPI HPI - Fall History of Present Illness Chief Complaint: Fall Informant: patient Occured/Mechanism Occurred: Today Usually ambulates: Cane Pain/Injury Location: Left shoulder, right hand Quality of Pain: Dull and Aching Worsened by: Movement Relieved by: Nothing Associated Symptoms Associated Symptoms: Positive for Weakness (From prior stroke); Negative for Parasthesias, Loss of function, Inability to ambulate, Loss of consciousness or Amnesia Narrative Narrative: Patient presents after a fall that occurred today. Patient actually fell 3 times today. Patient states she slid out of her wheelchair and landed on the floor. Patient complains of pain in her left shoulder and right hand. Patient describes the pain as dull and aching. Patient states the pain is worse with movement. Patient states she has some left-sided weakness from a prior stroke but denies any new paresthesias or weakness. Patient denies any head injury or loss of consciousness. [facility] Medical History Atrial fibrillation, new onset Cardiomyopathy HLD (hyperlipidemia) Hypertension Menopausal and female climacteric states Migraine headache Obesity Type II diabetes mellitus Home Medications duloxetine 60 mg capsule,delayed release 120 mg PO QHS mental health 11/08/21 [History Last Taken Unknown] trazodone 100 mg tablet 100 mg PO QHS sleep 05/17/22 [History Last Taken Unknown] apixaban 5 mg tablet (Eliquis) 5 mg PO BID #60 tabs 05/19/22 [Rx Last Taken Unknown] furosemide 20 mg tablet (Lasix) 20 mg PO DAILY #60 tabs 05/19/22 [Rx Last Taken Unknown] losartan 100 mg tablet 100 mg PO DAILY Check with primary doctor 07/06/22 [History Last Taken Unknown] metoprolol succinate 100 mg tablet,extended release 24 hr 100 mg PO DAILY #30 tabs 07/06/22 [Rx Last Taken Unknown] atorvastatin 40 mg tablet 40 mg PO QHS 08/09/22 [History Last Taken Unknown] insulin glargine 100 unit/mL (3 mL) subcutaneous pen (Lantus Solostar U-100 Insulin) 20 unit subcut QHS 08/09/22 [History Last Taken Unknown] insulin lispro 100 unit/mL subcutaneous pen 4 unit subcut TID 08/09/22 [History Last Taken Unknown] glipizide 10 mg tablet 10 mg PO DAILY 09/08/22 [History Last Taken Unknown] Allergy/AdvReac Type Severity Reaction Status Date / Time levofloxacin [From Levaquin] Allergy Other Verified 09/08/22 19:02 ANTIBIOTICS AdvReac Other Uncoded 09/08/22 19:02 Family History Mother Diabetes Psoriatic arthritis Rheumatoid arthritis Father COPD (chronic obstructive pulmonary disease) With concurrent tobacco use history. Myocardial infarction Heart disease Surgical History History of foot surgery Social History adopted: No household members: spouse housing: house number of children: 0 current occupational status: employed current occupation: works at [employer] pets and animals: Yes (kittens, dogs, horses) Smoking Status: Never smoker alcohol intake: never substance use type: does not use ROS ROS ED Constitutional Constitutional ED: Denies chills or fever(s) Eyes Eyes: Denies blurry vision or change in vision ENT ENT ED: Denies rhinorrhea or sore throat Cardiovascular Cardiovascular: Denies chest pain or palpitations Respiratory/Chest Respiratory/Chest: Denies cough or dyspnea Gastrointestinal Gastrointestinal: Denies nausea or vomiting Genitourinary Genitourinary ED: Denies dysuria or hematuria Musculoskeletal Musculoskeletal: Reports neck pain; Denies back pain Integumentary Denies abscess or rash Neurologic Neurologic: Denies headache(s) or weakness Allergic/Immunologic Allergic/Immunologic ED: Denies mouth swelling or urticaria EXAM Physical Exam Const Vital Signs: 09/08/22 18:58 09/08/22 20:31 Temperature 97.6 F L Temperature Source Temporal Pulse Rate 100 Respiratory Rate 16 Respiratory Effort Normal Non-Labored Respiratory Depth Normal Respiratory Pattern Normal Blood Pressure 112/74 Blood Pressure Mean 86 Pulse Ox 97 Oxygen Delivery Method Room Air Room Air Positive well nourished and well developed General Appearance ED: well developed and NAD HEENT Reports normocephalic atraumatic Neck full ROM and supple Resp normal respiratory effort and clear to auscultation bilaterally Cardio regular rate and regular rhythm GI non-tender Neuro oriented x3, CN's II-XII intact bilaterally, moves all extremities and no sensory deficits noted Gabby Coma Scale: document GCS findings Spontaneous Obeys Commands Oriented 15 Sensorium / Orientation: alert Psych mental status grossly normal MDM MDM MDM Narrative Medical decision making narrative: X-rays of the right hand were obtained. There are 3 views. On my interpretation, there is no acute fracture. There is no dislocation. There is no soft tissue swelling. Radiologist also interpreted the x-rays and agrees. X-rays of the left shoulder were obtained. There are 2 views. On my interpretation, there is no acute fracture. There is no dislocation. There is no soft tissue swelling. Radiologist also interpreted the x-rays and agrees. Patient was given a sling. Patient was instructed to ice and elevate the left shoulder and right hand. Patient was instructed to take Tylenol or ibuprofen as needed for pain. Patient is instructed to follow-up with primary care physician in 5 to 7 days. Patient and spouse understood and were agreeable with the plan. All questions were answered. Radiography Diagnostic Testing: Clinical Impression(s) from Imaging Studies Shoulder X-Ray 09/08/22 22:13 IMPRESSION: No acute abnormal finding in the left shoulder. Acromioclavicular DJD. Electronically Signed: Gera Lincoln MD at 22:40 EST , Hand X-Ray 09/08/22 22:20 IMPRESSION: undefined Discharge Plan Triage Chief Complaint: Fall ED Provider: Florencio Bean Dx/Rx/DC Orders Clinical Impression: Contusion of left shoulder, initial encounter, Contusion of hand, right, Fall Instructions: ED Hand Contusion, ED Shoulder Contusion Prescriptions: No Action duloxetine 60 mg capsule,delayed release(DR/EC) 120 mg PO QHS trazodone 100 mg Tablet 100 mg PO QHS Eliquis 5 mg tablet 5 mg PO BID Qty: 60 0RF furosemide [Lasix] 20 mg tablet 20 mg PO DAILY Qty: 60 0RF losartan 100 mg Tablet 100 mg PO DAILY metoprolol succinate 100 mg Tablet Extended Release 24 Hr 100 mg PO DAILY Qty: 30 1RF atorvastatin 40 mg tablet 40 mg PO QHS insulin lispro 100 unit/mL insulin pen 4 unit SUBCUT TID insulin glargine [Lantus Solostar U-100 Insulin] 100 unit/mL (3 mL) insulin pen 20 unit SUBCUT QHS glipizide 10 mg tablet 10 mg PO DAILY Primary Care Provider: Emile Esposito Referrals: Emile Esposito MD [Primary Care Provider] - 5-7 Days Disposition Disposition: Home, Self Care
== END 2022-09-09 00:08 | disposition home or self-care (01) ==
PROVIDERS: Emergency Provider Emergency Medicine; PCP Family Medicine; Visit Provider Emergency Medicine
DX: S40.012A Contusion of left shoulder, initial encounter (principal); I69.354 Hemiplegia and hemiparesis following cerebral infarction affecting left non-dominant side; E11.9 Type 2 diabetes mellitus without complications; I10 Essential (primary) hypertension; E78.5 Hyperlipidemia, unspecified; S60.221A Contusion of right hand, initial encounter; W19.XXXA Unspecified fall, initial encounter
CPT/HCPCS: 73030; 73130; 99285

== ENCOUNTER 2022-09-09 22:48 | Inpatient (IN) | payer BC, SELFPAY ==
[2022-09-09 22:52] VITALS: BP 122/69; PULSE 126; RESP 22; TEMP 36.2; BMI 38.0
[2022-09-09 22:59] VITALS: O2SAT 95
--- NOTE | 2022-09-09 23:12 | RAD_ITS ---
INDICATION: Shortness of Breath EXAMINATION/TECHNIQUE: X-RAY - XR Chest 1 View AP portable. 11:36 PM COMPARISON: 08/09/2022. 07/05/2022. FINDINGS: LINES/DEVICES: None. LUNGS: Mildly elevated right hemidiaphragm unchanged. There is likely a small right pleural effusion. Minimal opacities in the lung bases. No consolidation. No pneumothorax. MEDIASTINUM: Unremarkable. CARDIAC SILHOUETTE: Not enlarged. BONES AND SOFT TISSUES: No acute abnormalities. RAD/Chest 1 View (Portable) IMPRESSION: Bibasilar atelectasis versus infiltrates. Small right pleural effusion.. Electronically Signed: Leonie Elias MD at 0:01 EST ,
--- NOTE | 2022-09-09 23:12 | EKG12_ITS ---
Test Reason : DYSRHYTHMIA Blood Pressure : / mmHG Vent. Rate : 120 BPM Atrial Rate : 141 BPM P-R Int : 000 ms QRS Dur : 088 ms QT Int : 324 ms P-R-T Axes : 000 -41 158 degrees QTc Int : 457 ms Atrial fibrillation Left axis deviation ST & T wave abnormality, consider lateral ischemia Abnormal ECG Confirmed by CASSIDY MEEHAN, NEHEMIAH ([id number]), features editor GABRIEL DURHAM ([id number]) on 09/15/2022 10:03:04 AM Referred By: NEYMAR Confirmed By:NEHEMIAH BENJAMIN MD
--- NOTE | 2022-09-09 23:14 | EDS_ITS ---
HPI History of Present Illness Chief Complaint: Palpitations Narrative Narrative: 62-year-old female past medical history of atrial fibrillation, CVA with residual left arm weakness, recently got out of rehabilitation at [facility] 2 days ago. She states that this evening as she was laying flat, she had shortness of breath. She also felt she had palpitations. She denies any chest pain or overt leg swelling. She states that she takes a blood thinner and was diagnosed with atrial fibrillation in April of this year. It was later on even though she was on a blood thinner that she had her stroke just before , approximately 1 month ago according to her . She also has past medical history of CHF and is on Lasix, and reportedly has 25% ejection fraction. EMS was called this evening because when she tried to lay flat, she experienced orthopnea and heart palpitations. She is unsure as to what she takes regarding rate control for her atrial fibrillation. [facility] Medical History Atrial fibrillation, new onset Cardiomyopathy HLD (hyperlipidemia) Hypertension Menopausal and female climacteric states Migraine headache Obesity Type II diabetes mellitus Home Medications duloxetine 60 mg capsule,delayed release 120 mg PO QHS mental health 11/08/21 [History Last Taken Unknown] trazodone 100 mg tablet 100 mg PO QHS sleep 05/17/22 [History Last Taken Unknown] apixaban 5 mg tablet (Eliquis) 5 mg PO BID #60 tabs 05/19/22 [Rx Last Taken Unknown] furosemide 20 mg tablet (Lasix) 20 mg PO DAILY #60 tabs 05/19/22 [Rx Last Taken Unknown] losartan 100 mg tablet 100 mg PO DAILY Check with primary doctor 07/06/22 [History Last Taken Unknown] metoprolol succinate 100 mg tablet,extended release 24 hr 100 mg PO DAILY #30 tabs 07/06/22 [Rx Last Taken Unknown] atorvastatin 40 mg tablet 40 mg PO QHS 08/09/22 [History Last Taken Unknown] insulin glargine 100 unit/mL (3 mL) subcutaneous pen (Lantus Solostar U-100 Insulin) 20 unit subcut QHS 08/09/22 [History Last Taken Unknown] insulin lispro 100 unit/mL subcutaneous pen 4 unit subcut TID 08/09/22 [History Last Taken Unknown] glipizide 10 mg tablet 10 mg PO DAILY 09/08/22 [History Last Taken Unknown] Allergy/AdvReac Type Severity Reaction Status Date / Time levofloxacin [From Levaquin] Allergy Other Verified 09/08/22 19:02 Penicillins Allergy Hives Verified 09/09/22 23:00 Family History Mother Diabetes Psoriatic arthritis Rheumatoid arthritis Father COPD (chronic obstructive pulmonary disease) With concurrent tobacco use history. Myocardial infarction Heart disease Surgical History History of foot surgery Social History adopted: No household members: spouse housing: house number of children: 0 current occupational status: employed current occupation: works at [employer] pets and animals: Yes (kittens, dogs, horses) Smoking Status: Never smoker alcohol intake: never substance use type: does not use ROS ROS ED ROS Narrative Constitutional: No fever, no chills. HEENT: No sore throat. No neck pain. No loss of vision. No rhinorrhea. Cardiovascular: No chest pain. Positive palpitations. Denies pedal edema. Respiratory: No cough, positive orthopnea and shortness of breath. Abdominal: No abdominal pain. No nausea. No vomiting. Genitourinary: No dysuria. No hematuria. Musculoskeletal: No myalgias. No arthralgias. Neurologic: No headaches. No dizziness. No lightheadedness. Skin: No rash. No change in color. Psychiatric: No depression. No anxiety. EXAM Physical Exam Narrative Exam Narrative: Afebrile. Vital signs noted. HEENT: Normocephalic. Atraumatic. PERRL, EOMI. Neck soft and supple. No point tenderness or step off. Cardiovascular: Regular. No murmurs, rubs, or gallops appreciated. Respiratory: No tachypnea. Bibasilar rales on occasion. Gastrointestinal: Abdomen soft, nontender, with normoactive bowel sounds. No rebound or guarding. Neurological: Awake. Alert. Left upper extremity weakness, baseline from stroke according to patient and . Skin: No rash. Normal color. No pallor. Musculoskeletal: Bilateral symmetric pedal edema. Left upper extremity weakness.. Const Vital Signs: 09/09/22 22:52 09/09/22 22:57 09/09/22 22:59 Temperature 97.2 F L Temperature Source Temporal Pulse Rate 126 H Respiratory Rate 22 H Respiratory Effort Short of Breath Blood Pressure 122/69 H Blood Pressure Mean 86 Pulse Ox 95 Oxygen Delivery Method Room Air Room Air 09/09/22 23:38 09/10/22 01:00 09/10/22 01:11 Temperature Temperature Source Pulse Rate 122 H 115 H 121 H Respiratory Rate 27 H 25 H 29 H Respiratory Effort Blood Pressure 133/92 H 119/64 129/89 H Blood Pressure Mean 105 82 102 Pulse Ox 95 98 97 Oxygen Delivery Method Room Air Room Air Room Air MDM MDM MDM Narrative Medical decision making narrative: HF work-up was pursued. Prehospital EKG demonstrates atrial fibrillation with rapid ventricular response at 122 bpm and was interpreted by myself. I will obtain an EKG here along with laboratory work and chest x-ray. She was administered Lopressor 5 mg intravenously as it appears that she takes metoprolol succinate 100 mg daily for rate control of her A. fib. EKG obtained in the emergency department interpreted by myself demonstrates atrial fibrillation with rapid ventricular response at [address] changes. No STEMI. CBC shows normal white count of 10.1, hemoglobin stable at 9.3 with hematocrit 32.6. Platelet count normal at 326. Electrolyte panel shows creatinine slightly elevated at 1.84 with a BUN of 42. Glucose elevated at 249 consistent with her diabetes, but she has a normal anion gap of 13. High-sensitivity troponin is 21. BNP is elevated at 1835. Chest x-ray interpreted by myself does show bilateral fluffy infiltrates at the bases consistent with CHF. She was administered Lasix 40 mg intravenously. I will ambulate her with a pulse ox, but her states that she is having her intermittent atypical chest pain again. Additionally, her heart rate is near the 120s so she will be given an additional dose of Lopressor 5 mg for her atrial fibrillation with rapid ventricular response. I will asked the patient with the hospitalist for observation. Patient was discussed with Dr. Muniz. She will be admitted to PCU. Patient is in stable condition. Lab Data Attestation: I reviewed the patient's lab results. Labs: Laboratory Results - last 24 hr 09/09/22 09/09/22 09/09/22 23:33 23:33 23:33 WBC 10.1 RBC 3.83 L Hgb 9.3 L Hct 32.6 L MCV 85.1 MCH 24.3 L MCHC 28.5 L RDW Std Deviation 60.6 H RDW Coeff of Patricia 19.6 H Plt Count 326 MPV 10.8 Immature Gran % (Auto) 0.400 Neut % (Auto) 65.5 Lymph % (Auto) 20.3 [place] % (Auto) 12.7 H Eos % (Auto) 0.4 Baso % (Auto) 0.7 Absolute Neuts (auto) 6.6 Absolute Lymphs (auto) 2.04 Nucleated RBC % 0 Sodium 136 Potassium 4.1 Chloride 100 Carbon Dioxide 23.0 Anion Gap 13 BUN 42 H Creatinine 1.84 H Estim Creat Clear Calc 26.56 Est GFR (MDRD) Af Amer 36 L Est GFR (MDRD) Non-Af 30 L BUN/Creatinine Ratio 22.8 H Glucose 249 H Calcium 9.0 Total Bilirubin 1.20 H AST 35 ALT 43 Alkaline Phosphatase 85 Troponin I High Sens 21 B-Natriuretic Peptide 1835.8 H Total Protein 6.7 Albumin 3.2 Globulin 3.5 Albumin/Globulin Ratio 0.9 Radiography Chest X-Ray - ED: Read by ED Physician Diagnostic Testing: Clinical Impression(s) from Imaging Studies Chest X-Ray 09/09/22 23:12 IMPRESSION: Bibasilar atelectasis versus infiltrates. Small right pleural effusion.. Electronically Signed: Leonie Elias MD at 0:01 EST , Discharge Plan Dx/Rx/DC Orders Clinical Impression: Atrial fibrillation with rapid ventricular response, CHF (congestive heart failure), Chest pain Disposition Disposition: Acute Care Hospital [facility]
[2022-09-09 23:38] VITALS: BP 133/92; PULSE 122; RESP 27; O2SAT 95
[2022-09-09] MEDS: Metoprolol Tartrate 5 MG/5 ML Vial IV (23:43)
[2022-09-09 23:44] LABS: Absolute Lymphocyte Count 2.04 X10^3/uL (0.83-4.51); Absolute Neutrophil Count 6.6 X10^3/uL (2.0-7.7); Basophil# 0.07 X10^3/uL; Basophil% 0.7 % (0-1); Eosinophil# 0.04 X10^3/uL; Eosinophils% 0.4 % (0-5); Hematocrit 32.6 % (37-47); Hemoglobin 9.3 g/dL (12.0-15.0); Lymphocyte # 2.04 X10^3/ul (0.83-4.51); Lymphocyte % 20.3 % (19-41); Mean Corp Hgb Conc 28.5 g/dL (32-36); Mean Corpuscular Hgb 24.3 pg (27.0-32.0); Mean Corpuscular Volume 85.1 fL (81-99); Mean Platelet Vol. 10.8 fl (6.2-12.0); Monocyte# 1.28 X10^3/uL; Monocyte% 12.7 % (0-10); NRBC Flagged by Analyzer 0 % (0-5); Neutrophil % 65.5 % (47-70); Platelet Count 326 K/mm3 (150-450); RBC Distribution Width CV 19.6 % (11.6-14.6); RBC Distribution Width SD 60.6 fl (35.1-43.9); Red Blood Count 3.83 M/mm3 (4.2-5.4); White Blood Count 10.1 K/mm3 (4.4-11.0)
[2022-09-10] VITALS (20 sets, daily range): BP systolic 94–132; BP diastolic 64–106; PULSE 99–126; RESP 20–29; TEMP 36.1–36.4; O2SAT 97–100; BMI 36.3
[2022-09-10 00:09] LABS: ALB/GLOB Ratio 0.9 RATIO (0.9-2.4); AST(SGOT) 35 U/L (15-37); Alanine Aminotransfer ALT/SGPT 43 U/L (13-56); Albumin, Serum 3.2 g/dL (3.2-5.0); Alkaline Phosphatase 85 U/L (45-117); Anion Gap 13 (5-15); BUN 42 mg/dL (7-18); BUN/Creat Ratio 22.8 RATIO (10-20); Chloride 100 mmol/L (98-107); Creatinine, Serum 1.84 mg/dL (0.55-1.02); EST Glomerular Filtration Rate 30 mL/min (>60); Est Glom Filt Rate - Afr Amer 36 mL/min (>60); Estimated Creatinine Clearance 26.56 ml/min; Globulin 3.5 g/dL (2.2-4.2); Glucose 249 mg/dL (74-106); Potassium 4.1 mmol/L (3.5-5.1); Protein, Total 6.7 g/dL (6.4-8.2); Sodium Level 136 mmol/L (136-145); Troponin-I HS 21 pg/mL (3.0-54.0)
[2022-09-10 00:11] LABS: BNP,B-Type NATRIURETIC PEPTIDE 1835.8 pg/mL (0-100)
[2022-09-10] MEDS: Metoprolol Tartrate 5 MG/5 ML Vial IV (01:12)
--- NOTE | 2022-09-10 01:14 | HP.PCM.HOS_ITS ---
HPI - General General Date of Admission: 09/10/22 Date of Service: 09/10/22 Chief Complaint: Dyspnea, orthopnea, palpitations. HPI Narrative The patient is a 61 y/o F w/ PMHx: Hx CVA with residual LUE weakness, CKD stage III, Obesity, Depression and Anxiety, Diabetes mellitus type II, Migraine headaches, admission 05/17/22 with PAF with RVR with Systolic CHF/Nonischemic Cardiomyopathy Tachycardia mediated per prior records who now re-presents to the [facility] ED on 09/10/22 with history of recent discharge from skilled/rehab facility following acute CVA with ongoing residual left upper extremity weakness and upon returning to home she reported laying flat with sudden onset dyspnea as well as palpitations with no specific chest pain or overt edema but given significant sensation of dyspnea prompted ED evaluation. She denies any recent fevers or chills or marked cough or productive sputum. Work-up in the ED included T97.6, heart rate 126, BP 122/69, respiratory rate 22, 95% on room air, CBC with WC 10.1, hemoglobin 9.3, MCV 85.1, platelet 326 without marked shift, CMP with BUN/creatinine 42/1.84, glucose 249, T bili 1.20 otherwise hepatic profile not marked appearing, BNP 1835.8, troponin 21, chest x-ray with bibasilar atelectasi s versus infiltrates with small right pleural effusion concerning for overload, EKG with atrial fibrillation with RVR with rate 120s without any acute evidence of ischemia. In the ED patient ministered Lopressor 5 mg IV x2 as well as Lasix 40 mg IV x1. In the ED patient is laying more flat following Lasix administration and does states she feels mildly improved. [facility] Medical History Atrial fibrillation, new onset Cardiomyopathy HLD (hyperlipidemia) Hypertension Menopausal and female climacteric states Migraine headache Obesity Type II diabetes mellitus Home Medications duloxetine 60 mg capsule,delayed release 120 mg PO QHS mental health 11/08/21 [History Last Taken Unknown] trazodone 100 mg tablet 100 mg PO QHS sleep 05/17/22 [History Last Taken Unknown] apixaban 5 mg tablet (Eliquis) 5 mg PO BID #60 tabs 05/19/22 [Rx Last Taken Unk nown] furosemide 20 mg tablet (Lasix) 20 mg PO DAILY #60 tabs 05/19/22 [Rx Last Taken Unknown] losartan 100 mg tablet 100 mg PO DAILY Check with primary doctor 07/06/22 [History Last Taken Unknown] metoprolol succinate 100 mg tablet,extended release 24 hr 100 mg PO DAILY #30 tabs 07/06/22 [Rx Last Taken Unknown] atorvastatin 40 mg tablet 40 mg PO QHS 08/09/22 [History Last Taken Unknown] insulin glargine 100 unit/mL (3 mL) subcutaneous pen (Lantus Solostar U-100 Insulin) 20 unit subcut QHS 08/09/22 [History Last Taken Unknown] insulin lispro 100 unit/mL subcutaneous pen 4 unit subcut TID 08/09/22 [History Last Taken Unknown] glipizide 10 mg tablet 10 mg PO DAILY 09/08/22 [History Last Taken Unknown] Allergy/AdvReac Type Severity Reaction Status Date / Time levofloxacin [From Levaquin] Allergy Other Verified 09/08/22 19:02 Penicillins Allergy Hives Verified 09/09/22 23:00 Family History Mother Diabetes Psoriatic arthritis Rheumatoid arthritis Father COPD (chronic obstructive pulmonary disease) With concurrent tobacco use history. Myocardial infarction Heart disease Surgical History History of foot surgery Social History adopted: No household members: spouse housing: house number of children: 0 current occupational status: employed current occupation: works at [employer] pets and animals: Yes (kittens, dogs, horses) Smoking Status: Never smoker alcohol intake: never substance use type: does not use ROS ROS Narrative Admission Review of Systems: CONSTITUTIONAL: No weight loss, fever, chills, + weakness or fatigue. HEENT: + Congestion/sneezing/rhinitis issues Eyes: No visual loss, blurred vision, double vision or yellow sclerae. Ears, Nose, Throat: No hearing loss, sore throat. SKIN: No rash or itching, lesions, wounds. CARDIOVASCULAR: + racing heart/palpitations, orthopnea, No chest pain, syncopal events. RESPIRATORY: No shortness of breath, cough or sputum, wheezing, hemoptysis. GASTROINTESTINAL: No anorexia, nausea, vomiting or diarrhea, abdominal pain, melena, BRBPR. GENITOURINARY: No dysuria, frequency, urgency or retention. NEUROLOGICAL: + Recent CVA w/ residual LUE weakness, No headache, dizziness, syncope, paralysis, ataxia, numbness or tingling in the extremities, change in bowel or bladder control, seizure. MUSCULOSKELETAL: + muscle, back pain, joint pain or stiffness. HEMATOLOGIC: No anemia, bleeding or bruising. LYMPHATICS: No enlarged nodes. No history of splenectomy. PSYCHIATRIC: + history of depression or anxiety. ENDOCRINOLOGIC: No reports of sweating, cold or heat intolerance. No polyuria or polydipsia. ALLERGIES: No history of asthma, hives, eczema or rhinitis. Vital Signs Vital Signs Vital Signs: 09/09/22 22:52 09/09/22 22:57 09/09/22 22:59 Temperature 97.2 F L Temperature Source Temporal Pulse Rate 126 H Respiratory Rate 22 H Respiratory Effort Short of Breath Blood Pressure 122/69 H Blood Pressure Mean 86 Pulse Ox 95 Oxygen Delivery Method Room Air Room Air 09/09/22 23:38 09/10/22 01:00 09/10/22 01:11 Temperature Temperature Source Pulse Rate 122 H 115 H 121 H Respiratory Rate 27 H 25 H 29 H Respiratory Effort Blood Pressure 133/92 H 119/64 129/89 H Blood Pressure Mean 105 82 102 Pulse Ox 95 98 97 Oxygen Delivery Method Room Air Room Air Room Air Weight Weight: 214 lb 11.684 oz Body Mass Index (BMI) 38.0 Physical Exam Narrative Physical Examination: General: Awake, alert, oriented x 3 and cooperative, currently laying flat in the ED bed, notes feeling mildly improved, rate still on monitor 110-120s. Skin: Normal color, normal turgor, no icterus, no cyanosis except for occasional staged ecchymoses, suspect likely from recent IV access with recent acute stroke. HEENT: AT/NC, EOMI, PERRLA, dry eye MM, no carotid bruits or JVD noted; however, thickened neck makes evaluation difficult. Lungs: CTA bilaterally, moderate effort, mild decrease BL bases, no rales, ronchi or wheezing. Heart: Irregular irregular; no gallop, rub audible. Abdomen: Soft, obese NTTP, ND, distant normal BS, no obvious HSM; however, habitus makes evaluation difficult. Extremities: No cyanosis, clubbing, or edema. Neurological: Patient awake, alert, oriented as noted, cognitive function intact; pupils equally reactive to light and accommodation, cranial nerves II- XII grossly normal, moving all 4 extremities except significant left upper extremity with 1 out of 5 strength given recent acute CVA, other than left upper extremity no focal deficits, given current presentation strength moderately globally decreased. Psychiatric: Affect appears fatigued otherwise normal, no acute evidence of depr essive or anxiety feelings. Results Lab / Micro Data Result Diagrams: 09/09/22 23:33 09/09/22 23:33 Labs: Laboratory Results - last 24 hr 09/09/22 23:33: WBC 10.1, RBC 3.83 L, Hgb 9.3 L, Hct 32.6 L, MCV 85.1, MCH 24.3 L, MCHC 28.5 L, RDW Std Deviation 60.6 H, RDW Coeff of Patricia 19.6 H, Plt Count 326, MPV 10.8, Immature Gran % (Auto) 0.400, Neut % (Auto) 65.5, Lymph % (Auto) 20.3, [place] % (Auto) 12.7 H, Eos % (Auto) 0.4, Baso % (Auto) 0.7, Absolute Neuts (auto) 6.6, Absolute Lymphs (auto) 2.04, Nucleated RBC % 0 09/09/22 23:33: Sodium 136, Potassium 4.1, Chloride 100, Carbon Dioxide 23.0, Anion Gap 13, BUN 42 H, Creatinine 1.84 H, Estim Creat Clear Calc 26.56, Est GFR (MDRD) Af Amer 36 L, Est GFR (MDRD) Non-Af 30 L, BUN/Creatinine Ratio 22.8 H, Glucose 249 H, Calcium 9.0, Total Bilirubin 1.20 H, AST 35, ALT 43, Alkaline Phosphatase 85, Troponin I High Sens 21, Total Protein 6.7, Albumin 3.2, Globulin 3.5, Albumin/Globulin Ratio 0.9 09/09/22 23:33: B-Natriuretic Peptide 1835.8 H Radiology Impression Chest X-Ray 09/09/22 23:12 IMPRESSION: Bibasilar atelectasis versus infiltrates. Small right pleural effusion.. Electronically Signed: Leonie Elias MD at 0:01 EST , Assessment & Plan Assessment/Plan (1) Atrial fibrillation with rapid ventricular response: (2) CHF (congestive heart failure): PLAN: Plan The patient is a 61 y/o F w/ PMHx: Hx CVA with residual LUE weakness, CKD stage III, Obesity, Depression and Anxiety, Diabetes mellitus type II, Migraine h eadaches, admission 05/17/22 with PAF with RVR with Systolic CHF/Nonischemic Cardiomyopathy Tachycardia mediated per prior records who now re-presents to the [facility] ED on 09/10/22 with history of recent discharge from skilled/rehab facility following acute CVA with ongoing residual left upper extremity weakness and upon returning to home she reported laying flat with sudden onset dyspnea as well as palpitations. #1. Paroxsymal atrial fibrillation w/ chest pressure: EKG in ED w/ atrial fibrillation w/ RVR. Patient administered Lopressor 5 mg IV x2 as well as Lasix 40 mg IV x1. Will admit to the PCU, will maintain on telemetry, obtain cardiac enzyme serial set, will obtain magnesium and TSH level to be cautious, recent echocardiogram obtained 05/17/2022 this point repeat, continue patient home El iquis regimen as well as high-dose metoprolol with dose now and if necessary may transition to Cardizem drip. If patient worsens or requires cardizem drip low threshold to involve Cardiology at that time. #2. Acute Decompensated Systolic CHF/nonischemic cardiomyopathy tachycardia mediated likely secondary to #1: Patient administered IV lasix in the ED, will maintain on cardiac telemetry, obtain cardiac enzyme series, obtain serial EKGs, continue IV lasix diuresis, monitor I/Os, maintain on intake restriction, continue medical, obtain TSH and magnesium level. 05/17/2022 echocardiogram with normal LV size, EF 30%, moderate to severe global hypokinesis LV. 05/19/2022 cardiac catheterization with EF 30% with severe global hypokinesis with depressed LV systolic function with angiographically normal vessels. #3. CKD stage III, unclear subtype: Admission BUN/Cr 42/1.84, baseline more recently over 2021 has primarily been 1.6-1.7, continue to trend. #4. Diabetes mellitus type II w/ Hyperglycemia: Hold oral home regimen, ADA diet, accu checks w/ ISS. #5. Hypertension: We will continue patient IV Lasix as noted #1 in addition to high-dose metoprolol with dose now in addition to losartan chronic regimen however low threshold to also transition to Cardizem drip if atrial fibrillation with RVR not controlled, PRN hydralazine. #6. Anxiety and depression: We will continue patient home duloxetine regimen. #7. Chronic migraines: Not on chronic regimen, if necessary may administer as needed agents. #8. Suspected JAMAAL: We will maintain on trending pulse oximeter. #9. History CVA: Patient status post CVA with residual left upper extremity weakness, recent DC from rehab, continue Eliquis, statin, hypertensive regimen, diabetic regimen with adjustments as noted. #10. Obesity: Weight loss and lifestyle changes encouraged. #11. DVT prophylaxis: SCDs, continue patient home Eliquis regimen. Charges/Coding Visit Charges Inpatient E&M: 56738 Init Hosp L3
[2022-09-10] MEDS: Furosemide 40 MG/4 ML Vial IV ×3 (01:57→17:31)
[2022-09-10 02:28] LABS: Magnesium 2.1 mg/dL (1.6-2.6)
[2022-09-10 06:13] LABS: Absolute Lymphocyte Count 2.99 X10^3/uL (0.83-4.51); Basophil# 0.07 X10^3/uL; Basophil% 0.7 % (0-1); Eosinophil# 0.06 X10^3/uL; Eosinophils% 0.6 % (0-5); Hematocrit 31.5 % (37-47); Hemoglobin 9.1 g/dL (12.0-15.0); Lymphocyte # 2.99 X10^3/ul (0.83-4.51); Lymphocyte % 31.8 % (19-41); Mean Corp Hgb Conc 28.9 g/dL (32-36); Mean Corpuscular Hgb 24.1 pg (27.0-32.0); Mean Corpuscular Volume 83.6 fL (81-99); Mean Platelet Vol. 10.4 fl (6.2-12.0); Monocyte% 12.8 % (0-10); NRBC Flagged by Analyzer 0 % (0-5); Neutrophil # 5.03 X10^3/uL (2.7-7.7); Neutrophil % 53.7 % (47-70); Platelet Count 311 K/mm3 (150-450); RBC Distribution Width CV 19.4 % (11.6-14.6); RBC Distribution Width SD 58.3 fl (35.1-43.9); Red Blood Count 3.77 M/mm3 (4.2-5.4); White Blood Count 9.4 K/mm3 (4.4-11.0)
[2022-09-10 06:36] LABS: ALB/GLOB Ratio 0.9 RATIO (0.9-2.4); AST(SGOT) 41 U/L (15-37); Alanine Aminotransfer ALT/SGPT 51 U/L (13-56); Albumin, Serum 3.1 g/dL (3.2-5.0); Alkaline Phosphatase 79 U/L (45-117); Anion Gap 7 (5-15); BUN 40 mg/dL (7-18); BUN/Creat Ratio 22.5 RATIO (10-20); Calcium,Total 8.7 mg/dL (8.5-10.1); Chloride 99 mmol/L (98-107); Creatinine, Serum 1.78 mg/dL (0.55-1.02); EST Glomerular Filtration Rate 31 mL/min (>60); Est Glom Filt Rate - Afr Amer 37 mL/min (>60); Estimated Creatinine Clearance 27.46 ml/min; Globulin 3.5 g/dL (2.2-4.2); Glucose 172 mg/dL (74-106); Potassium 3.3 mmol/L (3.5-5.1); Protein, Total 6.6 g/dL (6.4-8.2); Sodium Level 136 mmol/L (136-145); Thyroid Stim Hormone (TSH) 3.21 uIU/mL (0.358-3.74)
[2022-09-10] MEDS: Metoprolol(XL)Succ 100 MG Tablet PO ×2 (07:09→10:17)
[2022-09-10] MEDS: Insulin Lispro 100 UNIT/ML INSULN.PEN SC ×7 (07:14→21:27)
[2022-09-10 08:05] LABS: Troponin-I HS 20 pg/mL (3.0-54.0)
[2022-09-10] MEDS: Losartan Potassium 100 MG Tablet PO (10:17)
[2022-09-10] MEDS: Potassium Chloride Oral Tablet 20 MEQ 40 MEQ PO (10:17)
[2022-09-10] MEDS: APIXABAN 5 MG TABLET PO ×2 (10:18→21:21)
--- NOTE | 2022-09-10 12:00 | CHAPLAIN ---
Type of Pastoral Visit _x__ Initial Visit ___ Follow-up Visit ___ On-call Visit ___ General Patient Visit ___ Spiritual Assessment ___ Family Conference ___ Bereavement ___ Rapid Response ___ Code Blue ___ Other (describe below) Pastoral Care Referral From _x__ Patient ___ Family ___ Nurse ___ Physician ___ Picking Tech ___ Weaving Professor ___ Other (describe below) Sacrament/Intervention _x__ Active listening ___ Anointing ___ Sabianism ___ Bereavement ___ Communion ___ Kendra exploration ___ ___ Life review _x__ Prayer ___ Reconciliation ___ Sacrament of Sick _x__ Supportive presence ___ Wedding ___ Other (describe below) Pastoral Comments patient is welcoming; pt states that she has been in hospitals since Jun.12; review of her sources of support and pt identifies spouse and mother along with many people who are praying for her; pt says she has no other concerns at this time but would welcome a prayer
[2022-09-10 12:02] LABS: Troponin-I HS 20 pg/mL (3.0-54.0)
--- NOTE | 2022-09-10 12:29 | CASEMGMT ---
Addendum entered by Adelia Olivera 09/10/22 16:26: YOLANDA JEFFERS spoke colton/Caron @ [facility] earlier today re: possible referral, as pt states if therapy does not recommend for her to go somewhere, and if unable to go to [facility] RU or TCU, then she wants to go home w/[facility]. PT/OT evals have been completed and RU is recommended. Per Caron, she and Shana have reviewed therapy notes and state they are unable to accept pt d/t they feel she is not appropriate for [facility] level of care as she requiring 2 assist for some care needs. YOLANDA JEFFERS to room to speak w/pt and she was made aware. She states she still would like to go to [facility] RU or TCU (if a bed becomes available) and she would like to see if her insurance will approve for one or the other. YOLANDA JEFFERS spoke w/Emy for [facility] RU and TCU re: referral. She states she can submit for pre-cert @ beginning of next week for [facility] RU and then if they do not approve for RU, then she can submit for approval for TCU, if a bed would become available. Pt and sig other made aware. Addendum entered by Adelia Olivera 09/10/22 13:13: Pt made aware [facility] does not have beds and that her insurance most likely will not approve another RU stay. She states if she cannot stay @ [facility], either TCU or RU, that she does not wish to go to any other SNF, that she would go home. Discussed care options/available assistance for her @ home. She states her mother is 86 yrs old and unable to physically help her. She states her husbands sister is retired and she may be able to assist, but she has not talked w/her about it yet. Pt was also provided w/list of local private-duty agencies and medical alert button. She states they also just ordered iphone watches. PT/OT evals pending. YOLANDA JEFFERS to discuss further discharge planning w/pt once eval is done/recommendations received. Addendum entered by Adelia Olivera 09/10/22 13:04: YOLANDA JEFFERS informed [facility] TCU does not have beds available and insurance may not approve RU, since pt was just discharged from [facility]. A list of SNF providers including quality and resource use data and consistent with the patient?s preferred geographic region, medical needs, and insurance network were provided from the [employer] Guide. Original Note: YOLANDA JEFFERS Assessment: YOLANDA JEFFERS to pt's room for initial transition planning/care coordination assessment. YOLANDA JEFFERS introduced self and role at [facility]. Patient sitting up in recliner chair in room, alert and oriented. Patient willing to participate in assessment and is able to answer all questions appropriately. Care providers, pharmacy, and demographics verified. PCP: [facility] Specialists: none that she is established w/yet. She states she is supposed to start going to a supervisor coin machine and a commission clerk, but she has had to cancel appts w/them d/t admissions to hospitals. Preferred Pharmacy: [facility] Insurance: [place]. Pt states she currently has insurance under COBRA and short-term disability. She states has not applied for LIZZ, but that she would like information about it. Prescription Benefit: yes Living Will/HPOA: yes, Dominic Gardiner LNOK: Living Arrangements: Patient lives with and her mother in a 2 story home w/2 steps to enter. There is a stair lift to 2nd level in home. Pt states she just d/c'd from [facility] on Tue, but slid out of her recliner 5 x's since then. She states her works during the day M-F and she is home alone at times. Friends can come to assist/help as needed, but she would need to call them. Pt's mother does all the cooking. Pt manages her own medications. Pt states can sponge bath on days is @ work, and to assist w/showers on the weekend. Transportation: DME: Patient states she has shower chair, grab bars (need installed), cane, walker, W/C, 2 BSC's, chair lift to 2nd floor, and functioning Paulette glucose monitoring system. HHC/SNF: No hx HHC. Was just @ [facility] after CVA and discharged home 2 days ago, on Tue. Pt states she is not sure if she has any skilled days left for SNF, but if she does, and if therapy recommends SNF or RU, she would want to go to [facility] RU or TCU, if they are in network w/her insurance. She states, if she does not have skilled days remaining or if SNF or RU is not recommended, she would want to go home and have [facility] HHC. She declines wanting list of other SNF or HHC options at this time. Plan: TBD, RU/SNF vs HHC. PT/OT evals pending. Enoch DELACRUZ RN CM
--- NOTE | 2022-09-10 13:59 | PCM.HOSP.N ---
Hospitalist Note Breathing improving today, no chest pain. Did not voice any other complaints this morning. Heart rate is improved today, can still consider Cardizem drip if it worsens. Continue Eliquis, continue Lasix. She wants placement on discharge, will likely be here over the holiday weekend pending pre-CERT once medically cleared
[2022-09-10] MEDS: DULoxetine Hcl 60 MG Capsule 120 MG PO (21:21)
[2022-09-10] MEDS: traZODone 100 MG Tablet PO (21:21)
[2022-09-10] MEDS: Atorvastatin Calcium 40 MG Tablet PO (21:22)
[2022-09-10] MEDS: Insulin Glargine-YFGN 100 UNIT/ML Pen 20 UNIT SC (21:28)
[2022-09-11] VITALS (12 sets, daily range): BP systolic 89–125; BP diastolic 64–87; PULSE 68–120; RESP 17–20; TEMP 36.5–36.7; O2SAT 94–100
[2022-09-11 06:31] LABS: Absolute Lymphocyte Count 1.48 X10^3/uL (0.83-4.51); Absolute Neutrophil Count 6.5 X10^3/uL (2.0-7.7); Basophil# 0.07 X10^3/uL; Basophil% 0.8 % (0-1); Eosinophil# 0.11 X10^3/uL; Eosinophils% 1.2 % (0-5); Hematocrit 33.7 % (37-47); Hemoglobin 9.7 g/dL (12.0-15.0); Lymphocyte # 1.48 X10^3/ul (0.83-4.51); Lymphocyte % 16.7 % (19-41); Mean Corp Hgb Conc 28.8 g/dL (32-36); Mean Corpuscular Hgb 24.4 pg (27.0-32.0); Mean Corpuscular Volume 84.7 fL (81-99); Mean Platelet Vol. 9.8 fl (6.2-12.0); Monocyte# 0.64 X10^3/uL; Monocyte% 7.2 % (0-10); NRBC Flagged by Analyzer 0 % (0-5); Neutrophil # 6.53 X10^3/uL (2.7-7.7); Neutrophil % 73.8 % (47-70); Platelet Count 268 K/mm3 (150-450); RBC Distribution Width CV 19.4 % (11.6-14.6); RBC Distribution Width SD 59.5 fl (35.1-43.9); Red Blood Count 3.98 M/mm3 (4.2-5.4); White Blood Count 8.9 K/mm3 (4.4-11.0)
--- NOTE | 2022-09-11 06:41 | PN.HOSP_ITS ---
Subjective Subjective Breathing improving, heart rate also improving. Glucose was 80 this morning she reports symptomatic at that level, will scale back insulin Objective Data Objective Data Vital Signs: Vital Signs Temp Pulse Resp BP Pulse Ox O2 Del Method 97 F L 120 H 22 H 116/88 H 97 Room Air 09/10/22 23:00 09/11/22 03:20 09/10/22 23:00 09/10/22 23:00 09/10/22 23:00 09/11/22 02:00 Oxygen Delivery Method Room Air Weight: 94.2 kg Body Mass Index (BMI) 36.3 Intake & Output: Intake and Output for Last 24 Hours 09/09/22 09/10/22 09/11/22 23:59 23:59 23:59 Intake Total 850 / 850 Output Total 1800 / 2400 600 / 600 Balance -950 / -1550 -600 / -600 Lab / Micro Data Result Diagrams: 09/11/22 06:20 09/11/22 06:20 Labs: Laboratory Results - last 24 hr 09/10/22 06:08: Troponin I High Sens 20 09/10/22 11:35: Troponin I High Sens 20 09/11/22 06:20: WBC 8.9, RBC 3.98 L, Hgb 9.7 L, Hct 33.7 L, MCV 84.7, MCH 24.4 L , MCHC 28.8 L, RDW Std Deviation 59.5 H, RDW Coeff of Patricia 19.4 H, Plt Count 268, MPV 9.8, Immature Gran % (Auto) 0.300, Neut % (Auto) 73.8 H, Lymph % (Auto) 16.7 L, [place] % (Auto) 7.2, Eos % (Auto) 1.2, Baso % (Auto) 0.8, Absolute Neuts (auto) 6.5, Absolute Lymphs (auto) 1.48, Nucleated RBC % 0 Physical Exam Const alert and no apparent distress Constitutional Narrative: Oriented HEENT normocephalic and head/scalp atraumatic Eyes Eyes Narrative: EOM grossly intact, anicteric Neck supple Resp normal respiratory effort Cardio Cardio Narrative: Irregular, slightly tachycardic GI soft to palpation, non-tender and non-distended Extremity Extremity Narrative: 1+ bilateral lower extremity edema Neuro moves all extremities Neuro Narrative: No overt focal deficits appreciated Psych Psych Narrative: Cooperative Assessment & Plan Assessment/Plan (1) Atrial fibrillation with rapid ventricular response: (2) CHF (congestive heart failure): PLAN: Plan #A. fib with RVR Heart rate low 100s, will increase metoprolol dose. At this time does not require Cardizem drip Continue home Eliquis and monitoring on telemetry #AE CHF Likely due to her A. fib with RVR Continue with Lasix diuresis I's and O's #Type 2 diabetes mellitus Oral home regimen held Is on insulin but was symptomatic with a glucose of 80 this morning, will scale back regimen #History of CVA with residual left upper extremity weakness Continue Eliquis and statin Placement on discharge #Normocytic anemia has been stable since admission at 9.3-9.7 but last hemoglobin 11.1 in July Not a significant drop, will monitor. May be secondary to chronic disease/CKD Will obtain iron panel and B12 Has no overt bleeding we will continue Eliquis at this time #CKD stage III unclear subtype Avoid nephrotoxic agents, continue to monitor BMP #DVT ppx: On Eliquis Lashae Bearden MD Charges/Coding Visit Charges Inpatient E&M: 31157 Subs Hosp L2
[2022-09-11 06:49] LABS: Anion Gap 5 (5-15); BUN 42 mg/dL (7-18); BUN/Creat Ratio 27.5 RATIO (10-20); Calcium,Total 8.9 mg/dL (8.5-10.1); Chloride 103 mmol/L (98-107); Cholesterol 60 mg/dL (200); Creatinine, Serum 1.53 mg/dL (0.55-1.02); EST Glomerular Filtration Rate 37 mL/min (>60); Est Glom Filt Rate - Afr Amer 44 mL/min (>60); Estimated Creatinine Clearance 31.94 ml/min; Glucose 63 mg/dL (74-106); High Density Lipoprotein 32 mg/dL; Potassium 3.3 mmol/L (3.5-5.1); Sodium Level 139 mmol/L (136-145); Triglycerides 38 mg/dL; Very Low Density Lipoprotein 8 mg/dL (5-40)
[2022-09-11 07:01] LABS: Bedside Glucose 81 mg/dL (74-106)
[2022-09-11 07:46] LABS: Bedside Glucose 147 mg/dL (74-106)
--- NOTE | 2022-09-11 08:37 | NURSING ---
Patient had called out complaining that she felt like her blood sugar was low. Accucheck showed a BGT of 81. Patient was provided with OJ and crackers at her request. At 0715 she called out to nursing station stating that she felt like it was getting low again. Recheck showed BGT of 147, pt was assisted with ordering her breakfast and no further intervention given. Patient stated that she would not take any insulin this morning because she had just been too low.
[2022-09-11] MEDS: Potassium Chloride Oral Tablet 20 MEQ 40 MEQ PO (09:42)
[2022-09-11] MEDS: Metoprolol(XL)Succ 100 MG Tablet 150 MG PO (09:43)
[2022-09-11] MEDS: Furosemide 40 MG/4 ML Vial IV (09:44)
[2022-09-11] MEDS: APIXABAN 5 MG TABLET PO ×2 (09:44→22:30)
[2022-09-11] MEDS: Losartan Potassium 100 MG Tablet PO (09:44)
--- NOTE | 2022-09-11 12:05 | NURSING ---
Pt refused accu check with hospital glucometer d/t cracked fingers. Pt has home monitoring cindy that she used and glucose was 181.
[2022-09-11] MEDS: Insulin Lispro 100 UNIT/ML INSULN.PEN SC ×3 (12:52→22:31)
--- NOTE | 2022-09-11 22:22 | NURSING ---
pt refused finger tick glucose check, own glucose jose a machine used. BG 202
[2022-09-11] MEDS: DULoxetine Hcl 60 MG Capsule 120 MG PO (22:30)
[2022-09-11] MEDS: Atorvastatin Calcium 40 MG Tablet PO (22:30)
[2022-09-11] MEDS: Insulin Glargine-YFGN 100 UNIT/ML Pen 15 UNIT SC (22:31)
[2022-09-11] MEDS: traZODone 100 MG Tablet PO (22:38)
[2022-09-12] VITALS (13 sets, daily range): BP systolic 94–118; BP diastolic 53–89; PULSE 87–113; RESP 16–18; TEMP 36.5–36.8; O2SAT 96–100
[2022-09-12 06:11] LABS: Absolute Lymphocyte Count 2.76 X10^3/uL (0.83-4.51); Absolute Neutrophil Count 4.6 X10^3/uL (2.0-7.7); Basophil# 0.07 X10^3/uL; Basophil% 0.8 % (0-1); Eosinophil# 0.32 X10^3/uL; Eosinophils% 3.7 % (0-5); Hematocrit 32.1 % (37-47); Hemoglobin 9.2 g/dL (12.0-15.0); Lymphocyte # 2.76 X10^3/ul (0.83-4.51); Lymphocyte % 32.2 % (19-41); Mean Corp Hgb Conc 28.7 g/dL (32-36); Mean Corpuscular Hgb 24.2 pg (27.0-32.0); Mean Corpuscular Volume 84.5 fL (81-99); Mean Platelet Vol. 10.2 fl (6.2-12.0); Monocyte# 0.84 X10^3/uL; Monocyte% 9.8 % (0-10); NRBC Flagged by Analyzer 0 % (0-5); Neutrophil # 4.56 X10^3/uL (2.7-7.7); Neutrophil % 53.2 % (47-70); Platelet Count 277 K/mm3 (150-450); RBC Distribution Width CV 19.4 % (11.6-14.6); RBC Distribution Width SD 59.4 fl (35.1-43.9); White Blood Count 8.6 K/mm3 (4.4-11.0)
--- NOTE | 2022-09-12 06:32 | NURSING ---
BG 147 this AM per pt own jose a machine.
[2022-09-12 06:39] LABS: ALB/GLOB Ratio 0.8 RATIO (0.9-2.4); AST(SGOT) 36 U/L (15-37); Alanine Aminotransfer ALT/SGPT 46 U/L (13-56); Alkaline Phosphatase 87 U/L (45-117); Anion Gap 8 (5-15); BUN 42 mg/dL (7-18); BUN/Creat Ratio 25.5 RATIO (10-20); Calcium,Total 8.5 mg/dL (8.5-10.1); Chloride 99 mmol/L (98-107); Creatinine, Serum 1.65 mg/dL (0.55-1.02); EST Glomerular Filtration Rate 34 mL/min (>60); Est Glom Filt Rate - Afr Amer 41 mL/min (>60); Estimated Creatinine Clearance 29.62 ml/min; Ferritin 37 ng/mL (8-252); Globulin 3.6 g/dL (2.2-4.2); Glucose 144 mg/dL (74-106); Iron 20 ug/dL (50-170); Iron Binding Capacity,Total 506 ug/dL (250-450); Potassium 3.7 mmol/L (3.5-5.1); Protein, Total 6.6 g/dL (6.4-8.2); Sodium Level 135 mmol/L (136-145)
--- NOTE | 2022-09-12 10:16 | PN.HOSP_ITS ---
Subjective Subjective Continues to improve, breathing improving, heart variable but overall improved on current dose of metoprolol Objective Data Objective Data Vital Signs: Vital Signs Temp Pulse Resp BP Pulse Ox O2 Del Method O2 Flow Rate 98.3 F 96 18 105/84 H 98 Room Air 0 09/12/22 05:16 09/12/22 07:00 09/12/22 05:16 09/12/22 05:16 09/12/22 07:33 09/12/22 07:33 09/11/22 22:05 FiO2 21 09/11/22 22:05 Oxygen Flow Rate (L/min) 0 Oxygen Delivery Method Room Air Weight: 94.2 kg Body Mass Index (BMI) 36.3 Intake & Output: Intake and Output for Last 24 Hours 09/10/22 09/11/22 09/12/22 23:59 23:59 23:59 Intake Total 850 / 850 520 / 520 Output Total 1800 / 2400 1600 / 1600 400 / 400 Balance -950 / -1550 -1080 / -1080 -400 / -400 Lab / Micro Data Result Diagrams: 09/12/22 05:49 09/12/22 05:49 Labs: Laboratory Results - last 24 hr 09/12/22 05:49: WBC 8.6, RBC 3.80 L, Hgb 9.2 L, Hct 32.1 L, MCV 84.5, MCH 24.2 L , MCHC 28.7 L, RDW Std Deviation 59.4 H, RDW Coeff of Patricia 19.4 H, Plt Count 277, MPV 10.2, Immature Gran % (Auto) 0.300, Neut % (Auto) 53.2, Lymph % (Auto) 32.2, Harris % (Auto) 9.8, Eos % (Auto) 3.7, Baso % (Auto) 0.8, Absolute Neuts (auto) 4.6, Absolute Lymphs (auto) 2.76, Nucleated RBC % 0 09/12/22 05:49: Sodium 135 L, Potassium 3.7, Chloride 99, Carbon Dioxide 28.0, Anion Gap 8, BUN 42 H, Creatinine 1.65 H, Estim Creat Clear Calc 29.62, Est GFR (MDRD) Af Amer 41 L, Est GFR (MDRD) Non-Af 34 L, BUN/Creatinine Ratio 25.5 H, Glucose 144 H, Calcium 8.5, Iron 20 L, TIBC 506 H, Iron Saturation 4.0 L, Ferritin 37, Total Bilirubin 0.80, AST 36, ALT 46, Alkaline Phosphatase 87, Total Protein 6.6, Albumin 3.0 L, Globulin 3.6, Albumin/Globulin Ratio 0.8 L Physical Exam Const alert and no apparent distress Constitutional Narrative: Oriented HEENT normocephalic and head/scalp atraumatic Eyes Eyes Narrative: EOM grossly intact, anicteric Neck supple Resp normal respiratory effort Cardio Cardio Narrative: Irregular, slightly tachycardic GI soft to palpation, non-tender and non-distended Extremity Extremity Narrative: 1+ bilateral lower extremity edema Neuro moves all extremities Neuro Narrative: No overt focal deficits appreciated Psych Psych Narrative: Cooperative Assessment & Plan Assessment/Plan (1) Atrial fibrillation with rapid ventricular response: (2) CHF (congestive heart failure): PLAN: Plan #A. fib with RVR Heart rate low 100s, will increase metoprolol dose. At this time does not require Cardizem drip Continue home Eliquis and monitoring on telemetry 09/12: On Eliquis, metoprolol dose increased to 150 mg daily #AE CHF Likely due to her A. fib with RVR Continue with Lasix diuresis I's and O's 09/12: Lasix adjusted to p.o. 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 May be secondary to chronic disease/CKD Will obtain iron panel and B12 Has no overt bleeding we will continue Eliquis at this time #CKD stage III unclear subtype Avoid nephrotoxic agents, continue to monitor BMP #DVT ppx: On Eliquis Lashae Bearden MD Charges/Coding Visit Charges Inpatient E&M: 61532 Subs Hosp L2
[2022-09-12] MEDS: APIXABAN 5 MG TABLET PO ×2 (10:39→21:43)
[2022-09-12] MEDS: Insulin Lispro 100 UNIT/ML INSULN.PEN SC ×3 (12:17→21:43)
[2022-09-12] MEDS: Ferrous Sulfate 325 MG Tablet PO (12:17)
--- NOTE | 2022-09-12 12:53 | NURSING ---
Pt refused blood glucose check; pt used freestyle cindy due to cracked fingers. Pt's glucose 196, 2 units given per sliding scale.
[2022-09-12] MEDS: Losartan Potassium 50 MG Tablet PO (13:06)
[2022-09-12] MEDS: Furosemide 40 MG Tablet PO (13:07)
[2022-09-12] MEDS: Metoprolol(XL)Succ 100 MG Tablet 150 MG PO (13:07)
[2022-09-12] MEDS: Senna/Docusate Sodium 1 Tablet 2 TABLET PO (15:35)
[2022-09-12] MEDS: Atorvastatin Calcium 40 MG Tablet PO ×2 (21:42→21:43)
[2022-09-12] MEDS: traZODone 100 MG Tablet PO ×2 (21:42→21:43)
[2022-09-12] MEDS: DULoxetine Hcl 60 MG Capsule 120 MG PO (21:43)
[2022-09-12] MEDS: Insulin Glargine-YFGN 100 UNIT/ML Pen 15 UNIT SC (21:44)
[2022-09-12] MEDS: 0.9% Saline Lock 10 ML Syringe IV (21:49)
--- NOTE | 2022-09-12 22:48 | NURSING ---
Pt refusing blood glucose checks. Used Welocalize cindy on pt's phone to check blood sugar, was 181, given 1 unit of Humalog.
[2022-09-13] VITALS (11 sets, daily range): BP systolic 112–126; BP diastolic 56–94; PULSE 91–109; RESP 16–18; TEMP 36.4–36.9; O2SAT 94–100
--- NOTE | 2022-09-13 06:23 | NURSING ---
Pt refusing blood sugar checks. Used pt freestyle cindy to check, BG was 117. No insulin given per sliding scale.
[2022-09-13 08:35] LABS: Absolute Lymphocyte Count 2.35 X10^3/uL (0.83-4.51); Absolute Neutrophil Count 4.8 X10^3/uL (2.0-7.7); Basophil% 1.2 % (0-1); Eosinophil# 0.24 X10^3/uL; Eosinophils% 2.8 % (0-5); Hemoglobin 10.2 g/dL (12.0-15.0); Lymphocyte # 2.35 X10^3/ul (0.83-4.51); Lymphocyte % 27.1 % (19-41); Mean Corp Hgb Conc 28.3 g/dL (32-36); Mean Corpuscular Hgb 24.3 pg (27.0-32.0); Mean Corpuscular Volume 85.7 fL (81-99); Mean Platelet Vol. 10.3 fl (6.2-12.0); Monocyte# 1.11 X10^3/uL; Monocyte% 12.8 % (0-10); NRBC Flagged by Analyzer 0 % (0-5); Neutrophil # 4.84 X10^3/uL (2.7-7.7); Neutrophil % 55.6 % (47-70); Platelet Count 308 K/mm3 (150-450); RBC Distribution Width CV 19.6 % (11.6-14.6); RBC Distribution Width SD 60.5 fl (35.1-43.9); White Blood Count 8.7 K/mm3 (4.4-11.0)
[2022-09-13 09:06] LABS: ALB/GLOB Ratio 0.9 RATIO (0.9-2.4); AST(SGOT) 26 U/L (15-37); Alanine Aminotransfer ALT/SGPT 40 U/L (13-56); Albumin, Serum 3.4 g/dL (3.2-5.0); Alkaline Phosphatase 93 U/L (45-117); Anion Gap 7 (5-15); BUN 45 mg/dL (7-18); BUN/Creat Ratio 25.6 RATIO (10-20); Chloride 99 mmol/L (98-107); Creatinine, Serum 1.76 mg/dL (0.55-1.02); EST Glomerular Filtration Rate 31 mL/min (>60); Est Glom Filt Rate - Afr Amer 38 mL/min (>60); Estimated Creatinine Clearance 27.77 ml/min; Globulin 3.7 g/dL (2.2-4.2); Glucose 145 mg/dL (74-106); Potassium 3.7 mmol/L (3.5-5.1); Protein, Total 7.1 g/dL (6.4-8.2); Sodium Level 135 mmol/L (136-145)
[2022-09-13] MEDS: APIXABAN 5 MG TABLET PO (09:18)
[2022-09-13] MEDS: Losartan Potassium 50 MG Tablet PO (09:19)
[2022-09-13] MEDS: Metoprolol(XL)Succ 100 MG Tablet 150 MG PO (09:19)
[2022-09-13] MEDS: Furosemide 40 MG Tablet PO (09:19)
--- NOTE | 2022-09-13 09:27 | PCM.PN.HOSP ---
Subjective Subjective Breathing well. Complains of cracks on her fingertips though she does endorse that she does manipulate the cracks. Would like to have wound care see her while she is in the hospital for convenience sake. Objective Data Objective Data Vital Signs: Vital Signs Temp Pulse Resp BP Pulse Ox O2 Del Method O2 Flow Rate 36.7 C 100 17 126/56 H 98 Room Air 0 09/13/22 09:10 09/13/22 09:19 09/13/22 09:10 09/13/22 09:10 09/13/22 09:10 09/13/22 09:10 09/11/22 22:05 FiO2 21 09/11/22 22:05 Oxygen Flow Rate (L/min) 0 Oxygen Delivery Method Room Air Weight: 93.9 kg Body Mass Index (BMI) 36.3 Intake & Output: Intake and Output for Last 24 Hours 09/11/22 09/12/22 09/13/22 23:59 23:59 23:59 Intake Total 520 / 520 500 / 500 Output Total 1600 / 1600 400 / 400 Balance -1080 / -1080 100 / 100 Lab / Micro Data Result Diagrams: 09/13/22 07:53 09/13/22 07:53 Labs: Laboratory Results - last 24 hr 09/13/22 07:53: WBC 8.7, RBC 4.20, Hgb 10.2 L, Hct 36.0 L, MCV 85.7, MCH 24.3 L, MCHC 28.3 L, RDW Std Deviation 60.5 H, RDW Coeff of Patricia 19.6 H, Plt Count 308, MPV 10.3, Immature Gran % (Auto) 0.500, Neut % (Auto) 55.6, Lymph % (Auto) 27.1, [place] % (Auto) 12.8 H, Eos % (Auto) 2.8, Baso % (Auto) 1.2 H, Absolute Neuts (auto) 4.8, Absolute Lymphs (auto) 2.35, Nucleated RBC % 0 09/13/22 07:53: Sodium 135 L, Potassium 3.7, Chloride 99, Carbon Dioxide 29.0, Anion Gap 7, BUN 45 H, Creatinine 1.76 H, Estim Creat Clear Calc 27.77, Est GFR (MDRD) Af Amer 38 L, Est GFR (MDRD) Non-Af 31 L, BUN/Creatinine Ratio 25.6 H, Glucose 145 H, Calcium 9.0, Total Bilirubin 0.80, AST 26, ALT 40, Alkaline Phosphatase 93, Total Protein 7.1, Albumin 3.4, Globulin 3.7, Albumin/Globulin Ratio 0.9 Physical Exam Const alert and no apparent distress HEENT head/scalp atraumatic Resp normal respiratory effort, no retractions and no use of accessory muscles Cardio regular rate, regular rhythm, S1 normal heart sound and S2 normal heart sound GI normal to inspection, nondistended, normoactive bowel sounds, soft to palpation and non-tender Extremity normal to inspection Skin Skin Narrative: Cracks in her fingertips of her right index and middle finger. No open wounds nor any erythema. Does have cyanosis noted of her left fingers. Neuro Neuro Narrative: Left-sided hemiparesis Assessment & Plan Assessment/Plan (1) Atrial fibrillation with rapid ventricular response: PLAN: A. fib with RVR Heart rate low 100s, will increase metoprolol dose. At this time does not require Cardizem drip Continue home Eliquis and monitoring on telemetry 09/12: On Eliquis, metoprolol dose increased to 150 mg daily (2) CHF (congestive heart failure): PLAN: Heart failure with reduced ejection fraction. EF 30% from 2D echocardiogram from 05/17/2022 Likely due to her A. fib with RVR Continue with Lasix diuresis I's and O's 09/12: Lasix adjusted to p.o. to try to transition to being able to discharge to SNF this week, monitor respiratory status (3) Finger lesion: PLAN: Unclear etiology. No evidence of any infection at this time. Patient denies any discoloration when she goes on the cold, however the patient states that she does not really go out in the cold anyway. Cannot rule out component of Raynaud's. Would recommend follow-up with the wound care center. PLAN: Plan Chronic conditions Type 2 diabetes mellitus: Oral home regimen held. 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 Continue Eliquis and statin. Placement on discharge. Follow-up with neurology upon discharge Normocytic anemia: has been stable since admission at 9.3-9.7 but last hemoglobin 11.1 in July. Not a significant drop, will monitor. May be secondary to chronic disease/CKD. Will obtain iron panel and B12. Has no overt bleeding we will continue Eliquis at this time CKD stage III unclear subtype. Avoid nephrotoxic agents, continue to monitor BMP DVT ppx: On Eliquis Disposition: Pending insurance authorization for senior living facility. Charges/Coding Visit Charges Inpatient E&M: 28616 Subs Hosp L2
[2022-09-13] MEDS: Ferrous Sulfate 325 MG Tablet PO (12:58)
--- NOTE | 2022-09-13 16:36 | NURSING ---
Pt refusing glucose check with our glucometer. Pt using home freestyle librae with cellphone scanning. Pt's glucose 177.
[2022-09-13] MEDS: Insulin Lispro 100 UNIT/ML INSULN.PEN SC (17:01)
[2022-09-14] VITALS (11 sets, daily range): BP systolic 113–129; BP diastolic 86–99; PULSE 94–112; RESP 16–20; TEMP 36.4–36.9; O2SAT 93–97
[2022-09-14] MEDS: DULoxetine Hcl 60 MG Capsule 120 MG PO ×2 (00:40→21:32)
[2022-09-14] MEDS: APIXABAN 5 MG TABLET PO ×3 (00:40→21:32)
[2022-09-14] MEDS: Insulin Glargine-YFGN 100 UNIT/ML Pen 15 UNIT SC (00:42)
[2022-09-14] MEDS: Insulin Lispro 100 UNIT/ML INSULN.PEN SC ×4 (00:42→16:49)
--- NOTE | 2022-09-14 01:04 | NURSING ---
Pt refusing blood sugar checks, used freestyle cindy to check, was 188, given 1 unit per sliding scale.
--- NOTE | 2022-09-14 08:30 | CASEMGMT ---
ROLDAN spoke with Emy in Rehab/TCU unit they cannot take patient in TCU due to insurance, but will have Dr Herrera look at patient for the rehab unit. Dr Herrera wanted to find out which [facility] patient was at recently and which hospital she was in prior to that admission. ROLDAN spoke with patient and she went to [facility] and then [facility] in [place]. SW let patient know that TCU cannot take her as they are not taking her insurance right now, but SW is checking into our rehab unit. ROLDAN notified Emy with Rehab above information. Awaiting approval from Dr Herrera. Plan: Inpatient rehab pending physician's approval. Zena Torre [employer]
[2022-09-14] MEDS: Furosemide 40 MG Tablet PO (08:43)
[2022-09-14] MEDS: Metoprolol(XL)Succ 100 MG Tablet 150 MG PO (08:43)
[2022-09-14] MEDS: Losartan Potassium 50 MG Tablet PO (08:44)
[2022-09-14 09:03] LABS: Vitamin B12 303 pg/mL (211-911)
--- NOTE | 2022-09-14 09:05 | CASEMGMT ---
YOLANDA JEFFERS: Call received from Camille Valentin with [facility]. Pt was active with them for SN, PT/OT prior to this admission. Updated Camille Valentin that DC disposition is not yet determined as SNF was being considered. Will continue to monitor for DC LOC and communicate this as needed. Maritza Gardiner RN CM
--- NOTE | 2022-09-14 12:01 | NURSING ---
Pt refuses Accuchecks, uses her own device on her arm to check her BS on her phone
[2022-09-14] MEDS: Ferrous Sulfate 325 MG Tablet PO (12:02)
--- NOTE | 2022-09-14 16:19 | PN.HOSP_ITS ---
Subjective Subjective No new events. Objective Data Objective Data Vital Signs: Vital Signs Temp Pulse Resp BP Pulse Ox O2 Del Method O2 Flow Rate 36.4 C L 94 20 H 115/93 H 97 Room Air 0 09/14/22 15:44 09/14/22 15:44 09/14/22 15:44 09/14/22 15:44 09/14/22 15:44 09/14/22 15:44 09/11/22 22:05 FiO2 21 09/11/22 22:05 Oxygen Flow Rate (L/min) 0 Oxygen Delivery Method Room Air Weight: 93.9 kg Body Mass Index (BMI) 36.3 Intake & Output: Intake and Output for Last 24 Hours 09/12/22 09/13/22 09/14/22 23:59 23:59 23:59 Intake Total 500 / 500 750 / 750 Output Total 400 / 400 Balance 100 / 100 750 / 750 Lab / Micro Data Result Diagrams: 09/13/22 07:53 09/13/22 07:53 Labs: Laboratory Results - last 24 hr 09/12/22 05:49: Vitamin B12 303 Physical Exam Const alert and no apparent distress Constitutional Narrative: up in chair. Resp normal respiratory effort, no retractions, no use of accessory muscles and clear to auscultation bilaterally Cardio regular rate, regular rhythm, S1 normal heart sound and S2 normal heart sound GI normal to inspection, nondistended, normoactive bowel sounds, soft to palpation and non-tender Skin Skin Narrative: crackles on right index and middle finger w/o erythema. calloused. Assessment & Plan Assessment/Plan (1) Atrial fibrillation with rapid ventricular response: PLAN: A. fib with RVR Heart rate low 100s, will increase metoprolol dose. At this time does not require Cardizem drip Continue home Eliquis and monitoring on telemetry 09/12: On Eliquis, metoprolol dose increased to 150 mg daily (2) CHF (congestive heart failure): PLAN: Heart failure with reduced ejection fraction. EF 30% from 2D echocardiogram from 05/17/2022 Likely due to her A. fib with RVR Continue with Lasix diuresis I's and O's 09/12: Lasix adjusted to p.o. to try to transition to being able to discharge to SNF this week, monitor respiratory status (3) Finger lesion: PLAN: Unclear etiology. No evidence of any infection at this time. Patient denies any discoloration when she goes on the cold, however the patient states that she does not really go out in the cold anyway. Cannot rule out component of Raynaud's. Would recommend follow-up with the wound care center. PLAN: Plan Chronic conditions * Type 2 diabetes mellitus: Oral home regimen held. 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 Continue Eliquis and statin. Placement on discharge. Follow-up with neurology upon discharge * Normocytic anemia: has been stable since admission at 9.3-9.7 but last hemoglobin 11.1 in July. Not a significant drop, will monitor. May be secondary to chronic disease/CKD. Will obtain iron panel and B12. Has no overt bleeding we will continue Eliquis at this time * CKD stage III unclear subtype. Avoid nephrotoxic agents, continue to monitor BMP DVT ppx: On Eliquis Disposition: Pending insurance authorization for fdc facility. Charges/Coding Visit Charges Inpatient E&M: 06734 Subs Hosp L2
--- NOTE | 2022-09-14 21:29 | NURSING ---
Pt refuses Accuchecks, uses her own device on her arm to check her BG on her phone
[2022-09-14] MEDS: traZODone 100 MG Tablet PO (21:32)
[2022-09-14] MEDS: 0.9% Saline Lock 10 ML Syringe IV (21:32)
[2022-09-14] MEDS: Atorvastatin Calcium 40 MG Tablet PO (21:33)
[2022-09-15] VITALS (9 sets, daily range): BP systolic 97–121; BP diastolic 66–93; PULSE 59–99; RESP 17–18; TEMP 36.4–36.9; O2SAT 94–99
[2022-09-15 07:52] LABS: Anion Gap 7 (5-15); BUN 36 mg/dL (7-18); BUN/Creat Ratio 25.7 RATIO (10-20); Calcium,Total 8.9 mg/dL (8.5-10.1); Chloride 98 mmol/L (98-107); EST Glomerular Filtration Rate 41 mL/min (>60); Est Glom Filt Rate - Afr Amer 49 mL/min (>60); Estimated Creatinine Clearance 34.91 ml/min; Glucose 130 mg/dL (74-106); Potassium 3.3 mmol/L (3.5-5.1); Sodium Level 133 mmol/L (136-145)
--- NOTE | 2022-09-15 07:54 | CASEMGMT ---
ROLDAN was notified this am physician is declining patient for inpatient rehab due [facility]. ROLDAN will talk with patient about prison options. Zena ERICKSON
--- NOTE | 2022-09-15 09:02 | PN.HOSP_ITS ---
Subjective Subjective No new events. Patient was noted to be somnolent this morning but did wake up later. Objective Data Objective Data Vital Signs: Vital Signs Temp Pulse Resp BP Pulse Ox O2 Del Method O2 Flow Rate 36.4 C L 97 18 109/93 H 95 Room Air 0 09/15/22 03:30 09/15/22 06:40 09/15/22 03:30 09/15/22 03:30 09/15/22 03:30 09/15/22 07:44 09/11/22 22:05 FiO2 21 09/11/22 22:05 Oxygen Flow Rate (L/min) 0 Oxygen Delivery Method Room Air Weight: 94.1 kg Body Mass Index (BMI) 36.3 Intake & Output: Intake and Output for Last 24 Hours 09/13/22 09/14/22 09/15/22 23:59 23:59 23:59 Intake Total 750 / 750 Balance 750 / 750 Lab / Micro Data Result Diagrams: 09/13/22 07:53 09/15/22 06:45 Labs: Laboratory Results - last 24 hr 09/12/22 05:49: Vitamin B12 303 09/15/22 06:45: Sodium 133 L, Potassium 3.3 L, Chloride 98, Carbon Dioxide 28.0, Anion Gap 7, BUN 36 H, Creatinine 1.40 H, Estim Creat Clear Calc 34.91, Est GFR (MDRD) Af Amer 49 L, Est GFR (MDRD) Non-Af 41 L, BUN/Creatinine Ratio 25.7 H, Glucose 130 H, Calcium 8.9 Physical Exam Const alert and no apparent distress Resp normal respiratory effort, no retractions and no use of accessory muscles Cardio regular rate, regular rhythm, S1 normal heart sound and S2 normal heart sound GI normal to inspection, nondistended, normoactive bowel sounds, soft to palpation, non-tender and non-distended Extremity normal to inspection Assessment & Plan Assessment/Plan (1) Atrial fibrillation with rapid ventricular response: PLAN: A. fib with RVR Heart rate low 100s, will increase metoprolol dose. At this time does not require Cardizem drip Continue home Eliquis and monitoring on telemetry 09/12: On Eliquis, metoprolol dose increased to 150 mg daily (2) CHF (congestive heart failure): PLAN: Heart failure with reduced ejection fraction. EF 30% from 2D echocardiogram from 05/17/2022 Likely due to her A. fib with RVR Continue with Lasix diuresis I's and O's 09/12: Lasix adjusted to p.o. to try to transition to being able to discharge to SNF this week, monitor respiratory status (3) Finger lesion: PLAN: Unclear etiology. No evidence of any infection at this time. Patient denies any discoloration when she goes on the cold, however the patient states that she does not really go out in the cold anyway. Cannot rule out component o f Raynaud's. Would recommend follow-up with the wound care center. PLAN: Plan Chronic conditions * Type 2 diabetes mellitus: Oral home regimen held. 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 Continue Eliquis and statin. Placement on discharge. Follow-up with neurology upon discharge * Normocytic anemia: has been stable since admission at 9.3-9.7 but last hemoglobin 11.1 in July. Not a significant drop, will monitor. May be secondary to chronic disease/CKD. Will obtain iron panel and B12. Has no overt bleeding we will continue Eliquis at this time * CKD stage III unclear subtype. Avoid nephrotoxic agents, continue to monitor B MP DVT ppx: On Eliquis Disposition: Pending insurance authorization for correction facility. Charges/Coding Visit Charges Inpatient E&M: 80280 Subs Hosp L2
[2022-09-15 09:41] LABS: Bedside Glucose 200 mg/dL (74-106)
[2022-09-15] MEDS: APIXABAN 5 MG TABLET PO ×2 (10:21→22:55)
[2022-09-15] MEDS: Metoprolol(XL)Succ 100 MG Tablet 150 MG PO (10:21)
[2022-09-15] MEDS: Losartan Potassium 50 MG Tablet PO (10:22)
[2022-09-15] MEDS: Furosemide 40 MG Tablet PO (10:22)
--- NOTE | 2022-09-15 10:32 | CASEMGMT ---
ROLDAN went to patient's room to see what her next option would be. However, patient's nurse said patient is pretty sleepy this am. ROLDAN called patient's , Dominic. ROLDAN introduced self and role at [facility]. ROLDAN told Dominic that TCU and Rehab are not able to accept patient. Dominic was upset and asked why. ROLDAN let him know TCU is not taking patient's insurance. ROLDAN told him that it looks like patient left against medical advice from [facility]. Dominic became upset and said that is not true. [facility] told her she was good to go home. Dominic said he was going to call [facility]. Dominic asked if Rehab could talk with [facility] and then reconsider patient. ROLDAN told him SW can ask. ROLDAN did send Emy a message via [employer]. Zena ERICKSON
[2022-09-15] MEDS: Insulin Lispro 100 UNIT/ML INSULN.PEN SC ×3 (11:16→22:56)
[2022-09-15] MEDS: Ferrous Sulfate 325 MG Tablet PO (11:32)
[2022-09-15] MEDS: Nystatin Powder 15gm Bottle 1 APPLIC TOPICAL ×2 (11:32→22:58)
[2022-09-15 11:50] LABS: Bedside Glucose 189 mg/dL (74-106)
--- NOTE | 2022-09-15 13:30 | CASEMGMT ---
ROLDAN met with patient and her . ROLDAN let them both know [facility] Inpatient Rehab is not able to accept patient. Patient's was unhappy and continuously asked why. ROLDAN eventually let him know that her records from [facility] were reviewed and it appeared there were some issues while she was there. Patient's denied this. ROLDAN told them they will have to pick from the list of jail facilities that was provided to them prior. Patient's was still very unhappy with the answer and asked to talk with someone above ROLDAN. ROLDAN told him SW can have the patient advocate come speak with him. ROLDAN called patient advocate and he will come talk with patient and her . Zena Torre LINEN ROOM SUPERVISOR [place]
--- NOTE | 2022-09-15 16:27 | CASEMGMT ---
SW provided patient with a list of retirement facility providers including quality and resource use data and consistent with patient?s preferred geographic region, medical needs, and insurance network were provided from the [facility] Guide. SW asked that she pick 2 or 3 and SW will call the facilities. Zena ERICKSON
[2022-09-15 17:00] LABS: Bedside Glucose 264 mg/dL (74-106)
[2022-09-15] MEDS: Atorvastatin Calcium 40 MG Tablet PO (22:55)
[2022-09-15] MEDS: traZODone 100 MG Tablet PO (22:55)
[2022-09-15] MEDS: DULoxetine Hcl 60 MG Capsule 120 MG PO (22:55)
[2022-09-15] MEDS: Insulin Glargine-YFGN 100 UNIT/ML Pen 15 UNIT SC (22:57)
[2022-09-15 23:00] LABS: Bedside Glucose 206 mg/dL (74-106)
[2022-09-16] VITALS (10 sets, daily range): BP systolic 103–109; BP diastolic 62–86; PULSE 94–108; RESP 16–18; TEMP 36.6–37.3; O2SAT 94–97
[2022-09-16 07:00] LABS: Bedside Glucose 136 mg/dL (74-106)
[2022-09-16] MEDS: Metoprolol(XL)Succ 100 MG Tablet 150 MG PO (08:04)
[2022-09-16] MEDS: Furosemide 40 MG Tablet PO (08:04)
[2022-09-16] MEDS: 0.9% Saline Lock 10 ML Syringe IV (08:04)
[2022-09-16] MEDS: Losartan Potassium 50 MG Tablet PO (08:04)
[2022-09-16] MEDS: APIXABAN 5 MG TABLET PO (08:04)
[2022-09-16] MEDS: Nystatin Powder 15gm Bottle 1 APPLIC TOPICAL (08:05)
--- NOTE | 2022-09-16 09:14 | PN.HOSP_ITS ---
Subjective Subjective No events. Objective Data Objective Data Vital Signs: Vital Signs Temp Pulse Resp BP Pulse Ox O2 Del Method O2 Flow Rate 36.6 C 94 16 106/76 96 Room Air 0 09/16/22 07:49 09/16/22 08:04 09/16/22 07:49 09/16/22 08:04 09/16/22 07:49 09/16/22 07:55 09/11/22 22:05 FiO2 21 09/11/22 22:05 Oxygen Flow Rate (L/min) 0 Oxygen Delivery Method Room Air Weight: 92.7 kg Body Mass Index (BMI) 36.3 Intake & Output: Intake and Output for Last 24 Hours 09/14/22 09/15/22 09/16/22 23:59 23:59 23:59 Intake Total 480 / 480 Balance 480 / 480 Lab / Micro Data Result Diagrams: 09/13/22 07:53 09/15/22 06:45 Labs: Laboratory Results - last 24 hr 09/15/22 09:19: POC Glucose 200 H 09/15/22 11:15: POC Glucose 189 H 09/15/22 16:27: POC Glucose 264 H 09/15/22 22:38: POC Glucose 206 H 09/16/22 06:39: POC Glucose 136 H Physical Exam Const alert and no apparent distress Constitutional Narrative: Lying in bed. Nontoxic. HEENT head/scalp atraumatic Psych affect normal Assessment & Plan Assessment/Plan (1) Atrial fibrillation with rapid ventricular response: PLAN: A. fib with RVR Heart rate low 100s, will increase metoprolol dose. At this time does not require Cardizem drip Continue home Eliquis and monitoring on telemetry 09/12: On Eliquis, metoprolol dose increased to 150 mg daily (2) CHF (congestive heart failure): PLAN: Heart failure with reduced ejection fraction. EF 30% from 2D echocardiogram from 05/17/2022 Likely due to her A. fib with RVR Continue with Lasix diuresis I's and O's 09/12: Lasix adjusted to p.o. to try to transition to being able to discharge to SNF this week, monitor respiratory status (3) Finger lesion: PLAN: Unclear etiology. No evidence of any infection at this time. Patient denies any discoloration when she goes on the cold, however the patient states that she does not really go out in the cold anyway. Cannot rule out component of Raynaud's. Would recommend follow-up with the wound care center. PLAN: Plan Chronic conditions * Type 2 diabetes mellitus: Oral home regimen held. 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 Continue Eliquis and statin. Placement on discharge. Follow-up with neurology upon discharge * Normocytic anemia: has been stable since admission at 9.3-9.7 but last hemoglobin 11.1 in July. Not a significant drop, will monitor. May be secondary to chronic disease/CKD. Will obtain iron panel and B12. Has no overt bleeding we will continue Eliquis at this time * CKD stage III unclear subtype. Avoid nephrotoxic agents, continue to monitor BMP DVT ppx: On Eliquis Disposition: Pending insurance authorization for retirement facility. Charges/Coding Visit Charges Inpatient E&M: 73410 [facility] Hosp L1
[2022-09-16] MEDS: Insulin Lispro 100 UNIT/ML INSULN.PEN SC ×2 (11:11→17:07)
[2022-09-16] MEDS: Ferrous Sulfate 325 MG Tablet PO (11:11)
--- NOTE | 2022-09-16 11:13 | CASEMGMT ---
ROLDAN spoke with patient this am. Her 2 choices were [facility] and [facility] in [place]. ROLDAN did tell her to think of a 3rd choice in case the other 2 are not able to accept. SW let her know SW will get referrals sent. SW sent referrals to both facilities via [facility]. Await responses. Zena Torre MANAGER OF HOSPITAL [place]
[2022-09-16 11:55] LABS: Bedside Glucose 169 mg/dL (74-106)
--- NOTE | 2022-09-16 12:35 | CASEMGMT ---
ROLDAN received notification from [facility] that they will not have any beds until next week. ROLDAN noted on [facility] that [facility] has not opened referral. ROLDAN called [facility] and left a message for the admissions person. Zena ERICKSON
--- NOTE | 2022-09-16 14:20 | CASEMGMT ---
ROLDAN called [facility] again and let the receptionist doctor's office know SW has not been able to reach anyone in admissions and SW sent a referral at 11:15a. The receptionist doctor's office put SW through to the admissions person for [facility] which is connected to [facility]. ROLDAN received voice mail for Penny who is the admissions person for [facility]. ROLDAN called Penny's cell phone and told her that ROLDAN has not been able to reach admissions at [facility] and a referral was sent at 11:15. Penny said she will try and get a hold of her and tell her to call ROLDAN. Penny said if ROLDAN does not hear from her to call Penny back. Zena Torre SHOE MAKER HEADLINE WRITER
--- NOTE | 2022-09-16 15:15 | CASEMGMT ---
ROLDAN received a call from Penny with [facility]. She said she is having troubles printing off the information from [facility]. ROLDAN faxed referral information to Penny at [phone]. Zena Torre MSW [place]
--- NOTE | 2022-09-16 15:49 | CT_ITS ---
EXAM: CT HEAD WITHOUT INTRAVENOUS CONTRAST CLINICAL INDICATION: left facial droop TECHNIQUE: Multiple axial images were obtained of the head without intravenous contrast. This CT exam was performed using one or more of the following dose reduction techniques: automated exposure control, adjustment of the mA and/or kV according to patient size, and/or use of iterative reconstruction technique. This report was created using [employer] report generation technology. COMPARISON: 08/09/2022 FINDINGS: BRAIN AND EXTRA-AXIAL SPACES: Hypodensity in the superior right basal ganglia and colmenares radiata that was not present on the previous exam compatible with an infarct. This measures 2.0 x 1.7 x 1.6 cm. The ventricular system and cortical sulci appear upper limits of normal in size. No intra- or extra-axial hemorrhage. No intracranial mass or mass effect. Posterior fossa structures are unremarkable. Basal cisterns are patent. BONES/JOINTS: Unremarkable. No discrete lytic or blastic abnormalities. SINUSES: Unremarkable as visualized. Clear. MASTOID AIR CELLS: Unremarkable. Clear. ORBITS: Visualized globes, extraocular muscles, optic nerves and retrobulbar fat appear unremarkable. CT/Brain/Head without Contrast IMPRESSION: Hypodensity in the colmenares radiata of the right frontal lobe compatible with an infarct which is likely chronic. This was not present on the previous exam. No hemorrhage is identified. Electronically Signed: Omari Javier MD at 16:51 EST ,
[2022-09-16 17:05] LABS: Bedside Glucose 167 mg/dL (74-106)
[2022-09-16 17:30] LABS: Bedside Glucose 178 mg/dL (74-106)
[2022-09-17] VITALS (10 sets, daily range): BP systolic 99–127; BP diastolic 58–96; PULSE 93–113; RESP 16–18; TEMP 36.2–37.2; O2SAT 95–97
[2022-09-17] MEDS: Atorvastatin Calcium 40 MG Tablet PO (00:28)
[2022-09-17] MEDS: APIXABAN 5 MG TABLET PO ×2 (00:29→08:51)
[2022-09-17] MEDS: traZODone 100 MG Tablet PO (00:29)
[2022-09-17] MEDS: DULoxetine Hcl 60 MG Capsule 120 MG PO (00:29)
[2022-09-17] MEDS: Insulin Lispro 100 UNIT/ML INSULN.PEN SC ×2 (00:31→16:17)
[2022-09-17] MEDS: Insulin Glargine-YFGN 100 UNIT/ML Pen 15 UNIT SC (00:33)
[2022-09-17] MEDS: Nystatin Powder 15gm Bottle 1 APPLIC TOPICAL ×2 (00:36→08:50)
[2022-09-17 00:56] LABS: Bedside Glucose 175 mg/dL (74-106)
--- NOTE | 2022-09-17 03:47 | NURSING ---
Patient complaining of being SOB Oxygen when awake around 96% when sleeping drops to 87-89% placed on 2L
--- NOTE | 2022-09-17 08:47 | CASEMGMT ---
ROLDAN received a call from Usha at [facility]. They asked about the previous facility patient went to and why she was not returning there. ROLDAN let Usha know it was [facility] in [place] and patient does not want to return to [place]. Usha thanked ROLDAN and that was all of their questions. She is headed to morning meeting and will pass this along. Await response. Zena Torre TONNAGE COMPILATION CLERK [place]
[2022-09-17] MEDS: Furosemide 40 MG Tablet PO (08:51)
[2022-09-17] MEDS: Losartan Potassium 50 MG Tablet PO (08:51)
[2022-09-17] MEDS: Metoprolol(XL)Succ 100 MG Tablet 150 MG PO (08:51)
[2022-09-17] MEDS: 0.9% Saline Lock 10 ML Syringe IV (08:51)
--- NOTE | 2022-09-17 09:08 | PN.HOSP_ITS ---
Objective Data Objective Data Vital Signs: Vital Signs Temp Pulse Resp BP Pulse Ox O2 Del Method O2 Flow Rate 36.2 C L 93 16 105/84 H 95 Room Air 2 09/17/22 08:48 09/17/22 08:51 09/17/22 08:48 09/17/22 08:51 09/17/22 08:48 09/17/22 08:48 09/17/22 04:40 FiO2 21 09/11/22 22:05 Oxygen Flow Rate (L/min) 2 Oxygen Delivery Method Room Air Weight: 92.8 kg Body Mass Index (BMI) 36.3 Intake & Output: Intake and Output for Last 24 Hours 09/15/22 09/16/22 09/17/22 23:59 23:59 23:59 Intake Total 480 / 480 540 / 540 300 / 300 Balance 480 / 480 540 / 540 300 / 300 Lab / Micro Data Result Diagrams: 09/13/22 07:53 09/15/22 06:45 Labs: Laboratory Results - last 24 hr 09/16/22 11:10: POC Glucose 169 H 09/16/22 16:44: POC Glucose 167 H 09/16/22 17:06: POC Glucose 178 H 09/17/22 00:22: POC Glucose 175 H Radiography Diagnostic Testing: Radiology Impression Brain CT 09/16/22 15:49 IMPRESSION: Hypodensity in the colmenares radiata of the right frontal lobe compatible with an infarct which is likely chronic. This was not present on the previous exam. No hemorrhage is identified. Electronically Signed: Omari Javier MD at 16:51 EST , Assessment & Plan Assessment/Plan (1) Atrial fibrillation with rapid ventricular response: PLAN: A. fib with RVR Heart rate low 100s, will increase metoprolol dose. At this time does not require Cardizem drip Continue home Eliquis and monitoring on telemetry 09/12: On Eliquis, metoprolol dose increased to 150 mg daily (2) CHF (congestive heart failure): PLAN: Heart failure with reduced ejection fraction. EF 30% from 2D echocardiogram from 05/17/2022 Likely due to her A. fib with RVR Continue with Lasix diuresis I's and O's 09/12: Lasix adjusted to p.o. to try to transition to being able to discharge to SNF this week, monitor respiratory status (3) Finger lesion: PLAN: Unclear etiology. No evidence of any infection at this time. Patient denies any discoloration when she goes on the cold, however the patient states that she does not really go out in the cold anyway. Cannot rule out component of Raynaud's. Would recommend follow-up with the wound care center. (4) CVA (cerebral vascular accident): PLAN: Pt had a right MCA CVA Concern for worsening left facial droop yesterday by . Head CT showed hypodensity in the colmenares radiate of the right frontal lobe, likely chronic. No addition head imaging in our system from 08/09, when the CVA occurred and she was transferred to [facility], when she had a right MCA CVA. [facility] reports not available in [facility] to review. I could not appreciate any acute issues, nor did the patient acknowledge any changes. The CT images are likely chronic evolution of her CVA from 08/09/2022. Follow up with neurology as outp. Continue Eliquis and statin. PLAN: Plan Chronic conditions * Type 2 diabetes mellitus: Oral home regimen held. Is on insulin but was symptomatic with a glucose of 80 this morning, will scale back regimen * Normocytic anemia: has been stable since admission at 9.3-9.7 but last hemoglobin 11.1 in July. Not a significant drop, will monitor. May be secondary to chronic disease/CKD. Will obtain iron panel and B12. Has no overt bleeding we will continue Eliquis at this time * CKD stage III unclear subtype. Avoid nephrotoxic agents, continue to monitor BMP DVT ppx: On Eliquis Disposition: Pending insurance authorization for nursing home facility.
[2022-09-17 09:36] LABS: Bedside Glucose 120 mg/dL (74-106)
--- NOTE | 2022-09-17 09:50 | CASEMGMT ---
ROLDAN received notification from [facility] that they are checking patient's Medicare benefits and will get back to ROLDAN. Zena Torre BANANA HANDLER [place]
[2022-09-17] MEDS: Ferrous Sulfate 325 MG Tablet PO (11:19)
[2022-09-17 11:40] LABS: Bedside Glucose 133 mg/dL (74-106)
--- NOTE | 2022-09-17 13:25 | CASEMGMT ---
ROLDAN has not heard anything from [facility] so ROLDAN sent a message via [employer]. Zena Torre LANCE CREWMEMBER [place]
--- NOTE | 2022-09-17 14:05 | CASEMGMT ---
Usha from [facility] responded on [facility] stating she is checking with construction scheduler to see if they have a decision on patient. Await response. Zena Torre TRAVELERS' AID WORKER SUCTION OPERATOR
--- NOTE | 2022-09-17 15:03 | CASEMGMT ---
ROLDAN called Usha at [facility]. ROLDAN explained that it is getting late on a Tuesday and if they are not going to take patient ROLDAN needs to start working on making referrals elsewhere. Usha asked ROLDAN to give her 5 minutes. Zena Torre CITY COMPTROLLER [place]
--- NOTE | 2022-09-17 15:25 | CASEMGMT ---
ROLDAN received a call from Usha at [facility]. They can take patient. They are willing to take patient tonight. SW met with patient and let her know this information. Patient said her will transport her. SW will complete [address]. Zena ERICKSON
--- NOTE | 2022-09-17 15:33 | TREXTCAR_ITS ---
Diet Diet Order/Speech Therapy: 09/10/22 05:33 Diet: Cardiac: Calorie-Controlled Food consistency:: Regular Liquid Consistency:: Regular/Thin Fluid restriction:: 1500 mL How many daily calories?: 1800 calorie Wound(s) Right Heel: Wound Type: Open area right thumb: Wound Type: Abrasion fingers r hand: Wound Type: dry cracks left arm: Wound Type: scabbing Therapies Physical Therapy: Eval and Treat Occupational Therapy: Eval and Treat Problem/Diagnosis (1) Atrial fibrillation with rapid ventricular response: Status: Acute Code(s): I48.91 - Unspecified atrial fibrillation Plan: A. fib with RVR Heart rate low 100s, will increase metoprolol dose. At this time does not require Cardizem drip Continue home Eliquis and monitoring on telemetry 09/12: On Eliquis, metoprolol dose increased to 150 mg daily (2) CHF (congestive heart failure): Status: Acute Code(s): I50.9 - Heart failure, unspecified Plan: Heart failure with reduced ejection fraction. EF 30% from 2D echocardiogram from 05/17/2022 Likely due to her A. fib with RVR Continue with Lasix diuresis I's and O's 09/12: Lasix adjusted to p.o. to try to transition to being able to discharge to SNF this week, monitor respiratory status (3) Finger lesion: Status: Acute Code(s): L98.9 - Disorder of the skin and subcutaneous tissue, unspecified Plan: Unclear etiology. No evidence of any infection at this time. Patient denies any discoloration when she goes on the cold, however the patient states that she does not really go out in the cold anyway. Cannot rule out component of Raynaud's. Would recommend follow-up with the wound care center. (4) CVA (cerebral vascular accident): Status: Acute Code(s): I63.9 - Cerebral infarction, unspecified Plan: Pt had a right MCA CVA Concern for worsening left facial droop yesterday by . Head CT showed hypodensity in the colmenares radiate of the right frontal lobe, likely chronic. No addition head imaging in our system from 08/09, when the CVA occurred and she was transferred to [facility], when she had a right MCA CVA. [facility] reports not available in [facility] to review. I could not appreciate any acute issues, nor did the patient acknowledge any changes. The CT images are likely chronic evolution of her CVA from 08/09/2022. Follow up with neurology as outp. Continue Eliquis and statin. Plan Chronic conditions * Type 2 diabetes mellitus: Oral home regimen held. Is on insulin but was symptomatic with a glucose of 80 this morning, will scale back regimen * Normocytic anemia: has been stable since admission at 9.3-9.7 but last hemoglobin 11.1 in July. Not a significant drop, will monitor. May be secondary to chronic disease/CKD. Will obtain iron panel and B12. Has no overt bleeding we will continue Eliquis at this time * CKD stage III unclear subtype. Avoid nephrotoxic agents, continue to monitor BMP DVT ppx: On Eliquis Disposition: Pending insurance authorization for senior care facility. Allergies/Procedures Done in Hospital Allergies levofloxacin [From Levaquin] Allergy (Verified 09/08/22 19:02) Other Penicillins Allergy (Verified 09/09/22 23:00) Hives Procedures: None Type of Care/Length of Stay Estimated LOS: Convalescent Care Less Than 30 days Type of Care Needed: Skilled Rehab Potential: Fair Prognosis: Fair Additional Orders/Day of Discharge Day of Discharge: 09/17/22 Dietary and Speech Recommendations Dietitian Recommendations/Changes: continue cardiac, 1800 calorie controlled diet w/ fluid restriction as indicated. Discharge Plan Admission Admit Date/Time: 09/10/22 02:01 Primary Reason for Your Visit: CHF Attending Provider: Florencio Marti Primary Care Provider: Emile Esposito Consulting Providers: Nathaly Muniz ; Lashae Bearden Discharge Orders/Prescriptions Prescriptions: New acetaminophen [Tylenol] 325 mg Tablet 650 mg PO Q4H PRN PRN (Reason: Fever, pain 1-06/21) Qty: 0 0RF metoprolol succinate 100 mg Tablet Extended Release 24 Hr 150 mg PO DAILY Qty: 0 0RF ferrous sulfate [FeroSul] 325 mg (65 mg iron) Tablet 325 mg PO DAILY@1200 Qty: 0 0RF furosemide 40 mg Tablet 40 mg PO DAILY Qty: 0 0RF melatonin 3 mg Tablet 3 mg PO QHS PRN PRN (Reason: Insomnia) Qty: 0 0RF insulin lispro [Humalog KwikPen Insulin] 100 unit/mL Insulin Pen See Protocol subcut ACHS Qty: 0 0RF Protocol: 3. Sliding Scale Insulin Med Dosing Condition: 150-189 mg/dl = 1 unit Condition: 190-229 mg/dl = 2 units Condition: 230-269 mg/dl = 3 units Condition: 270-309 mg/dl = 4 units Condition: 310-349 mg/dl = 5 units Condition: 350-399 mg/dl = 6 units Condition: 400-449 mg/dl = 7 units Condition: Greater than 449 call physician Protocol Text: - Use for Total Daily Dose of Insulin 37-55 units - Obsese, infected, or steroid patients MEDIUM DOSING ALGORITHIM nystatin [Nyamyc] 100,000 unit/gram Powder 1 applic topical BID Qty: 0 0RF Protocol: *Topical Application Instructions APPLICATION INSTRUCTIONS: apply to affected areas potassium chloride 10 mEq capsule, extended release 10 meq PO DAILY Qty: 30 0RF Continued duloxetine 60 mg capsule,delayed release(DR/EC) 120 mg PO QHS trazodone 100 mg Tablet 100 mg PO QHS Eliquis 5 mg tablet 5 mg PO BID Qty: 60 0RF atorvastatin 40 mg tablet 40 mg PO QHS insulin lispro 100 unit/mL insulin pen 4 unit SUBCUT TID insulin glargine [Lantus Solostar U-100 Insulin] 100 unit/mL (3 mL) insulin pen 20 unit SUBCUT QHS Discontinued furosemide [Lasix] 20 mg tablet 20 mg PO DAILY Qty: 60 0RF losartan 100 mg Tablet 100 mg PO DAILY metoprolol succinate 100 mg Tablet Extended Release 24 Hr 100 mg PO DAILY Qty: 30 1RF glipizide 10 mg tablet 10 mg PO DAILY Referrals / Follow Up: [facility] [Provider Group] - Within 1 Month [facility] [Provider Group] - Within 1 Month Emile Esposito MD [Primary Care Provider] - Within 2 Weeks Disposition Disposition (needs filled in before D/C Order can be placed): [facility] Facility
--- NOTE | 2022-09-17 15:41 | DS.PCM_ITS ---
Providers Date of Admission: 09/10/22 Primary Care Physician: Dr. Emile Esposito MD Reason For Visit: CHF EXAC, PAF W/RVR Diagnosis Discharge Diagnosis (1) Atrial fibrillation with rapid ventricular response: Status: Acute Code(s): I48.91 - Unspecified atrial fibrillation Plan: A. fib with RVR Heart rate low 100s, will increase metoprolol dose. At this time does not require Cardizem drip Continue home Eliquis and monitoring on telemetry 09/12: On Eliquis, metoprolol dose increased to 150 mg daily (2) CHF (congestive heart failure): Status: Acute Code(s): I50.9 - Heart failure, unspecified Plan: Heart failure with reduced ejection fraction. EF 30% from 2D echocardiogram from 05/17/2022 Likely due to her A. fib with RVR Continue with Lasix diuresis I's and O's 09/12: Lasix adjusted to p.o. to try to transition to being able to discharge to SNF this week, monitor respiratory status (3) Finger lesion: Status: Acute Code(s): L98.9 - Disorder of the skin and subcutaneous tissue, unspecified Plan: Unclear etiology. No evidence of any infection at this time. Patient denies any discoloration when she goes on the cold, however the patient states that she does not really go out in the cold anyway. Cannot rule out component of Raynaud's. Would recommend follow-up with the wound care center. (4) CVA (cerebral vascular accident): Status: Acute Code(s): I63.9 - Cerebral infarction, unspecified Plan: Pt had a right MCA CVA Concern for worsening left facial droop yesterday by . Head CT showed hypodensity in the colmenares radiate of the right frontal lobe, likely chronic. No addition head imaging in our system from 08/09, when the CVA occurred and she was transferred to [facility], when she had a right MCA CVA. [facility] reports not available in [facility] to review. I could not appreciate any acute issues, nor did the patient acknowledge any changes. The CT images are likely chronic evolution of her CVA from 08/09/2022. Follow up with neurology as outp. Continue Eliquis and statin. Plan Chronic conditions * Type 2 diabetes mellitus: Oral home regimen held. Is on insulin but was symptomatic with a glucose of 80 this morning, will scale back regimen * Normocytic anemia: has been stable since admission at 9.3-9.7 but last hemoglobin 11.1 in July. Not a significant drop, will monitor. May be secondary to chronic disease/CKD. Will obtain iron panel and B12. Has no overt bleeding we will continue Eliquis at this time * CKD stage III unclear subtype. Avoid nephrotoxic agents, continue to monitor BMP DVT ppx: On Eliquis Disposition: Pending insurance authorization for prison facility. Medications at Discharge Home Medications duloxetine 60 mg capsule,delayed release 120 mg PO QHS mental health 11/08/21 trazodone 100 mg tablet 100 mg PO QHS sleep 05/17/22 apixaban 5 mg tablet (Eliquis) 5 mg PO BID #60 tabs 05/19/22 atorvastatin 40 mg tablet 40 mg PO QHS cholesterol 08/09/22 insulin glargine 100 unit/mL (3 mL) subcutaneous pen (Lantus Solostar U-100 Insulin) 20 unit subcut QHS diabetes 08/09/22 insulin lispro 100 unit/mL subcutaneous pen 4 unit subcut TID diabetes 08/09/22 acetaminophen 325 mg tablet (Tylenol) 650 mg PO Q4H PRN PRN Fever, pain -06/21 #0 tabs 09/17/22 ferrous sulfate 325 mg (65 mg iron) tablet (FeroSul) 325 mg PO DAILY@1200 #0 tabs 09/17/22 furosemide 40 mg tablet 40 mg PO DAILY #0 tabs 09/17/22 insulin lispro 100 unit/mL subcutaneous pen (Humalog KwikPen (U-100) Insulin) See Protocol subcut ACHS #0 mL 09/17/22 melatonin 3 mg tablet 3 mg PO QHS PRN PRN Insomnia #0 tabs 09/17/22 metoprolol succinate 100 mg tablet,extended release 24 hr 150 mg PO DAILY #0 tabs 09/17/22 nystatin 100,000 unit/gram topical powder (Nyamyc) 1 applic topical BID #0 grams 09/17/22 potassium chloride 10 mEq capsule,extended release 10 meq PO DAILY #30 caps 09/17/22 Weight / BMI Weight Weight: 92.8 kg Body Mass Index (BMI) 36.3 ABG / Lab / Microbiology Data Result Diagrams: 09/13/22 07:53 09/15/22 06:45 Laboratory: Laboratory Results - last 24 hr 09/16/22 16:44: POC Glucose 167 H 09/16/22 17:06: POC Glucose 178 H 09/17/22 00:22: POC Glucose 175 H 09/17/22 07:00: POC Glucose 120 H 09/17/22 11:16: POC Glucose 133 H Radiography Diagnostic Testing: Radiology Impression Brain CT 09/16/22 15:49 IMPRESSION: Hypodensity in the colmenares radiata of the right frontal lobe compatible with an infarct which is likely chronic. This was not present on the previous exam. No hemorrhage is identified. Electronically Signed: Omari Javier MD at 16:51 EST , Meaningful Use Info Meaningful Use Diagnoses (Choose all that apply): CHF CHF YOEL/ARB ordered at discharge?: No Reason YOEL/ARB not ordered?: Hypotension Documented LVEF (%): 30 Discharge Plan Admission Admit Date/Time: 09/10/22 02:01 Primary Reason for Your Visit: CHF Attending Provider: Florencio Marti Primary Care Provider: Emile Esposito Consulting Providers: Nathaly Muniz ; Lashae Bearden Discharge Orders/Prescriptions Prescriptions: New acetaminophen [Tylenol] 325 mg Tablet 650 mg PO Q4H PRN PRN (Reason: Fever, pain 1-06/21) Qty: 0 0RF metoprolol succinate 100 mg Tablet Extended Release 24 Hr 150 mg PO DAILY Qty: 0 0RF ferrous sulfate [FeroSul] 325 mg (65 mg iron) Tablet 325 mg PO DAILY@1200 Qty: 0 0RF furosemide 40 mg Tablet 40 mg PO DAILY Qty: 0 0RF melatonin 3 mg Tablet 3 mg PO QHS PRN PRN (Reason: Insomnia) Qty: 0 0RF insulin lispro [Humalog KwikPen Insulin] 100 unit/mL Insulin Pen See Protocol subcut ACHS Qty: 0 0RF Protocol: 3. Sliding Scale Insulin Med Dosing Condition: 150-189 mg/dl = 1 unit Condition: 190-229 mg/dl = 2 units Condition: 230-269 mg/dl = 3 units Condition: 270-309 mg/dl = 4 units Condition: 310-349 mg/dl = 5 units Condition: 350-399 mg/dl = 6 units Condition: 400-449 mg/dl = 7 units Condition: Greater than 449 call physician Protocol Text: - Use for Total Daily Dose of Insulin 37-55 units - Obsese, infected, or steroid patients MEDIUM DOSING ALGORITHIM nystatin [Nyamyc] 100,000 unit/gram Powder 1 applic topical BID Qty: 0 0RF Protocol: *Topical Application Instructions APPLICATION INSTRUCTIONS: apply to affected areas potassium chloride 10 mEq capsule, extended release 10 meq PO DAILY Qty: 30 0RF Continued duloxetine 60 mg capsule,delayed release(DR/EC) 120 mg PO QHS trazodone 100 mg Tablet 100 mg PO QHS Eliquis 5 mg tablet 5 mg PO BID Qty: 60 0RF atorvastatin 40 mg tablet 40 mg PO QHS insulin lispro 100 unit/mL insulin pen 4 unit SUBCUT TID insulin glargine [Lantus Solostar U-100 Insulin] 100 unit/mL (3 mL) insulin pen 20 unit SUBCUT QHS Discontinued furosemide [Lasix] 20 mg tablet 20 mg PO DAILY Qty: 60 0RF losartan 100 mg Tablet 100 mg PO DAILY metoprolol succinate 100 mg Tablet Extended Release 24 Hr 100 mg PO DAILY Qty: 30 1RF glipizide 10 mg tablet 10 mg PO DAILY Referrals / Follow Up: [facility] [Provider Group] - Within 1 Month [facility] [Provider Group] - Within 1 Month Emile Esposito MD [Primary Care Provider] - Within 2 Weeks Disposition Disposition (needs filled in before D/C Order can be placed): Long-Term Facility Charges/Coding Visit Charges Inpatient E&M: 35296 Disch Hosp
--- NOTE | 2022-09-17 16:09 | CASEMGMT ---
SW sent orders and 7000 to [facility] via [employer]. ROLDAN will send COVID test once done. Plan: d/c to [facility] under skilled level of care on a 7000. Patient's will transport via private vehicle. Zena ERICKSON
[2022-09-17] MEDS: Potassium Chloride Oral Tablet 20 MEQ 40 MEQ PO (16:16)
--- NOTE | 2022-09-17 16:38 | CASEMGMT ---
ROLDAN sent negative COVID test to [facility] via [facility]. Zena Torre [employer]
[2022-09-17 16:46] LABS: Bedside Glucose 165 mg/dL (74-106)
--- NOTE | 2022-09-17 17:14 | NURSING ---
This RN called and gave report to YOLANDA Do at [facility].
== END 2022-09-17 18:07 | disposition skilled nursing facility (03) | DRG 308 ==
LOC: ED 09-10 00:59 → ICU 09-10 02:34 → PCU 09-11 11:15
PROVIDERS: Internal Medicine; Admitting Provider Family Medicine; Emergency Provider Emergency Medicine; PCP Family Medicine
DX: I48.0 Paroxysmal atrial fibrillation (principal); I50.23 Acute on chronic systolic (congestive) heart failure; I13.0 Hypertensive heart and chronic kidney disease with heart failure and stage 1 through stage 4 chronic kidney disease, or unspecified chronic kidney disease; I42.8 Other cardiomyopathies; D63.1 Anemia in chronic kidney disease; E11.22 Type 2 diabetes mellitus with diabetic chronic kidney disease; I69.334 Monoplegia of upper limb following cerebral infarction affecting left non-dominant side; E11.65 Type 2 diabetes mellitus with hyperglycemia; N18.30 Chronic kidney disease, stage 3 unspecified; Z79.4 Long term (current) use of insulin; G47.33 Obstructive sleep apnea (adult) (pediatric); E78.5 Hyperlipidemia, unspecified; I73.00 Raynaud's syndrome without gangrene; L98.9 Disorder of the skin and subcutaneous tissue, unspecified; F41.9 Anxiety disorder, unspecified; I69.392 Facial weakness following cerebral infarction; F32.A Depression, unspecified; E66.9 Obesity, unspecified; Z68.38 Body mass index [BMI] 38.0-38.9, adult; Z79.01 Long term (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 of anticoagulants; Z79.899 Other long term (current) drug therapy
CPT/HCPCS: 36415; 70450; 71045; 80048; 80053; 80061; 82607; 82728; 82962; 83540; 83550; 83735; 83880; 84443; 84484; 85025; 87811; 93005; 94762; 97110; 97116; 97162; 97166; 97530; 97535; 97802; 97803; 99251; 99285; J7030; A4216; G0463; J1940

== ENCOUNTER → 2022-11-04 | Outpatient (CLI) | payer BC, SELFPAY ==
[2022-11-04 15:43] LABS: Absolute Lymphocyte Count 1.84 X10^3/uL (0.83-4.51); Basophil# 0.05 X10^3/uL; Basophil% 0.7 % (0-1); Eosinophils% 1.5 % (0-5); Hematocrit 41.9 % (37-47); Hemoglobin 12.5 g/dL (12.0-15.0); Lymphocyte # 1.84 X10^3/ul (0.83-4.51); Lymphocyte % 26.9 % (19-41); Mean Corp Hgb Conc 29.8 g/dL (32-36); Mean Corpuscular Hgb 27.1 pg (27.0-32.0); Mean Corpuscular Volume 90.9 fL (81-99); Mean Platelet Vol. 9.6 fl (6.2-12.0); Monocyte# 0.82 X10^3/uL; NRBC Flagged by Analyzer 0 % (0-5); Neutrophil # 4.03 X10^3/uL (2.7-7.7); Neutrophil % 58.8 % (47-70); POSITIVE MORPHOLOGY YES; Platelet Count 295 K/mm3 (150-450); RBC Distribution Width CV 21.6 % (11.6-14.6); RBC Distribution Width SD 71.6 fl (35.1-43.9); Red Blood Count 4.61 M/mm3 (4.2-5.4); White Blood Count 6.9 K/mm3 (4.4-11.0)
[2022-11-04 15:51] LABS: Differential Indicated SCAN CRITERIA MET
[2022-11-04 16:21] LABS: Anion Gap 5 (5-15); BUN 36 mg/dL (7-18); Calcium,Total 9.7 mg/dL (8.5-10.1); Chloride 97 mmol/L (98-107); EST Glomerular Filtration Rate 38 mL/min (>60); Est Glom Filt Rate - Afr Amer 45 mL/min (>60); Glucose 212 mg/dL (74-106); Potassium 4.2 mmol/L (3.5-5.1); Sodium Level 135 mmol/L (136-145)
[2022-11-04 16:43] LABS: Anisocytosis 1+; Differential Comment SCANNED
== END | disposition home or self-care (01) ==
PROVIDERS: PCP Family Medicine; Visit Provider Nurse Practitioner Gerontology
DX: R53.83 Other fatigue (principal)
CPT/HCPCS: 36415; 80048; 85025

== ENCOUNTER 2022-11-20 11:16 | Emergency (ER) | payer SELFPAY ==
[2022-11-20 11:16] VITALS: BP 123/71; PULSE 59; RESP 18; TEMP 36.8; O2SAT 100; BMI 30.1
--- NOTE | 2022-11-20 11:25 | ED.RN ---
assessed pt, stated would be with them as soon as possible. pt's states it does not look busy.
--- NOTE | 2022-11-20 11:36 | EDS_ITS ---
HPI History of Present Illness Chief Complaint: Nosebleed Informant: patient and spouse/S.O. Narrative Narrative: Presents recurrent nasal bleed an hour prior to arrival. Bleeding yesterday that is controlled. She is blowing her nose with symptoms occurred. She is on Eliquis for the past 6 months for paroxysmal A-fib. She had cardioversion back to sinus rhythm in the past. Prior to that no significant nosebleeds. Confirms has a perforated septum 20 years ago has seen ENT then however declined repair. Heat turned up in house with spouse stating his fireplace running. PFSH [facility] Medical History Atrial fibrillation, new onset Atypical chest pain Cardiomyopathy Chest pain CHF (congestive heart failure) CVA (cerebral vascular accident) Finger lesion HLD (hyperlipidemia) Hypertension Hypertension Hypertensive urgency Menopausal and female climacteric states Migraine headache Obesity Type II diabetes mellitus Home Medications duloxetine 60 mg capsule,delayed release 120 mg PO QHS mental health 11/08/21 [History Last Taken Unknown] trazodone 100 mg tablet 100 mg PO QHS sleep 05/17/22 [History Last Taken Unknown] insulin glargine 100 unit/mL (3 mL) subcutaneous pen (Lantus Solostar U-100 Insulin) 20 unit subcut QHS diabetes 08/09/22 [History Last Taken Unknown] insulin lispro 100 unit/mL subcutaneous pen 4 unit subcut TID diabetes 08/09/22 [History Last Taken Unknown] acetaminophen 325 mg tablet (Tylenol) 650 mg PO Q4H PRN PRN Fever, pain 1-06/21 #0 tabs 09/17/22 [Rx Last Taken Unknown] ferrous sulfate 325 mg (65 mg iron) tablet (FeroSul) 325 mg PO DAILY@1200 #0 tabs 09/17/22 [Rx Last Taken Unknown] insulin lispro 100 unit/mL subcutaneous pen (Humalog KwikPen (U-100) Insulin) See Protocol subcut ACHS #0 mL 09/17/22 [Rx Last Taken Unknown] nystatin 100,000 unit/gram topical powder (Nyamyc) 1 applic topical BID #0 grams 09/17/22 [Rx Last Taken Unknown] potassium chloride 10 mEq capsule,extended release 10 meq PO DAILY #30 caps 09/17/22 [Rx Last Taken Unknown] apixaban 5 mg tablet (Eliquis) 5 mg PO BID #180 tabs 11/04/22 [Rx Last Taken Unknown] atorvastatin 40 mg tablet 40 mg PO QHS cholesterol #90 tabs 11/04/22 [Rx Last Taken Unknown] furosemide 40 mg tablet 40 mg PO DAILY #90 tabs 11/04/22 [Rx Last Taken Unknown] metoprolol succinate 100 mg tablet,extended release 24 hr 100 mg PO DAILY #90 tabs 11/04/22 [Rx Last Taken Unknown] Allergy/AdvReac Type Severity Reaction Status Date / Time levofloxacin [From Levaquin] Allergy Other Verified 11/20/22 11:18 Penicillins Allergy Hives Verified 11/20/22 11:18 Family History Mother Diabetes Psoriatic arthritis Rheumatoid arthritis Father COPD (chronic obstructive pulmonary disease) With concurrent tobacco use history. Myocardial infarction Heart disease Surgical History History of foot surgery Social History adopted: No household members: spouse housing: house number of children: 0 current occupational status: employed current occupation: works at [employer] pets and animals: Yes (kittens, dogs, horses) Smoking Status: Never smoker alcohol intake: never substance use type: does not use caffeine: Yes (occasionally) Type: carbonated beverages and coffee ROS ROS ED Constitutional Constitutional ED: Denies chills, fever(s) or sweats Eyes Eyes: Denies change in vision ENT ENT ED: Reports other Details: Nosebleed ; Denies dysphagia or sore throat Cardiovascular Cardiovascular: Denies chest pain, leg edema, palpitations or racing heartbeat Respiratory/Chest Respiratory/Chest: Denies cough, dyspnea or dyspnea on exertion Gastrointestinal Gastrointestinal: Denies abdominal pain, diarrhea, nausea or vomiting Genitourinary Genitourinary ED: Denies dysuria, hematuria or urinary frequency Musculoskeletal Musculoskeletal: Denies back pain, extremity pain or neck pain Integumentary Denies rash or wounds Neurologic Neurologic: Denies headache(s), paresthesias or weakness EXAM Physical Exam Const Vital Signs: 11/20/22 11:16 11/20/22 12:57 Temperature 98.2 F Temperature Source Temporal Pulse Rate 59 L 54 L Respiratory Rate 18 18 Blood Pressure 123/71 H 130/61 H Blood Pressure Mean 88 84 Pulse Ox 100 Oxygen Delivery Method Room Air Positive well nourished and well developed General Appearance ED: well developed and NAD HEENT Reports moist mucous membranes HEENT Narrative: Nare exam bilateral with blood, appears left greater than right, there is perforated septum. Posterior pharyngeal blood however no active bleeding. normocephalic and atraumatic Eyes PERRL, EOMs intact bilaterally and conjunctivae normal General Eye ED: Yes normal appearance of both eyes Neck no lymphadenopathy and supple General: Negative for tenderness Chest Wall Chest: Negative for tenderness Resp normal respiratory effort and normal air movement Effort and Inspection: symmetric chest movement; Negative for respiratory distress Cardio regular rate, regular rhythm and no murmurs Peripheral Pulses: pulses 2+ throughout GI normal to inspection, nondistended, normoactive bowel sounds and non-tender Palpation: Negative for guarding or rebound tenderness present Back/Spine no CVA tenderness and no thoracic nor lumbar tenderness Extremity normal to inspection General Extremety ED: Negative for edema or tenderness General Extremity: Negative for edema Neuro oriented x3 and no sensory deficits noted Sensorium / Orientation: awake and alert Skin no rashes or lesions noted and no wounds MDM MDM MDM Narrative Medical decision making narrative: Interventions / MDM: Differential diagnosis: Epistaxis, perforated septum Diagnosis considered but do not suspect: N/A My EKG interpretation: N/A Imaging independently reviewed and interpreted by myself: N/A External documents reviewed: N/A Test considered but not ordered:N/A ED course: Patient bleeding bilaterally however perforated septum,. More on the left side. She has nasal clips on, she was monitored, return removed clots, there is rebleeding, Afrin on cotton was placed bilaterally, this will help slowed it down, however with removal there is additional clots more in the left side confirms more likely the area. Upon removal however she started bleeding again on the left side, clots were removed, I placed a 7.5 cm rapid Rhino packing on the left side, continued monitoring. Initial there is bleeding over to the right side briefly however is stopped, she had extensive monitoring in the ED, there is no rebleeding on the right side, I ambulated her myself in the hallway there was no rebleeding. Discussed with patient and spouse risk and benefits of taking her off Eliquis while she has this packing. They understand that she will hold this for 3 days as she will be given follow-up with ENT as an outpatient. Strict return precautions she may need a pack on the right side recently diagnosed due to a perforated septum. She understands this. All questions were answered. Re-evaluation: stable Disposition discussed with patient/family/significant other: Patient and significant other Case discussed with consulting clinician: N/A Discharge Plan Triage Chief Complaint: Nosebleed ED Provider: Idris Seymour Dx/Rx/DC Orders Clinical Impression: Left-sided epistaxis, Perforated nasal septum, Anticoagulant long-term use Instructions: ED Epistaxis (Adult) Prescriptions: No Action metoprolol succinate 100 mg tablet extended release 24 hr 100 mg PO DAILY Qty: 90 3RF Eliquis 5 mg tablet 5 mg PO BID Qty: 180 3RF atorvastatin 40 mg tablet 40 mg PO QHS Qty: 90 3RF furosemide 40 mg tablet 40 mg PO DAILY Qty: 90 3RF duloxetine 60 mg capsule,delayed release(DR/EC) 120 mg PO QHS trazodone 100 mg Tablet 100 mg PO QHS insulin lispro 100 unit/mL insulin pen 4 unit SUBCUT TID insulin glargine [Lantus Solostar U-100 Insulin] 100 unit/mL (3 mL) insulin pen 20 unit SUBCUT QHS acetaminophen [Tylenol] 325 mg Tablet 650 mg PO Q4H PRN PRN (Reason: Fever, pain 1-06/21) Qty: 0 0RF ferrous sulfate [FeroSul] 325 mg (65 mg iron) Tablet 325 mg PO DAILY@1200 Qty: 0 0RF insulin lispro [Humalog KwikPen Insulin] 100 unit/mL Insulin Pen See Protocol subcut ACHS Qty: 0 0RF Protocol: 3. Sliding Scale Insulin Med Dosing Condition: 150-189 mg/dl = 1 unit Condition: 190-229 mg/dl = 2 units Condition: 230-269 mg/dl = 3 units Condition: 270-309 mg/dl = 4 units Condition: 310-349 mg/dl = 5 units Condition: 350-399 mg/dl = 6 units Condition: 400-449 mg/dl = 7 units Condition: Greater than 449 call physician Protocol Text: - Use for Total Daily Dose of Insulin 37-55 units - Obsese, infected, or steroid patients MEDIUM DOSING ALGORITHIM nystatin [Nyamyc] 100,000 unit/gram Powder 1 applic topical BID Qty: 0 0RF Protocol: *Topical Application Instructions APPLICATION INSTRUCTIONS: apply to affected areas potassium chloride 10 mEq capsule, extended release 10 meq PO DAILY Qty: 30 0RF Primary Care Provider: Emile Esposito Referrals: Emile Esposito MD [Primary Care Provider] - Emile Tello MD [Med Staff - Courtesy Staff] - 3-5 Days Activity Restrictions/Additional Instructions: 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 7.5 cm Rhino placed in the left side. Hold your Eliquis for 3 days until you see ENT. Return if worsening symptoms. Disposition Disposition: Home, Self Care Discharge Date/Time: 11/20/22 15:29
[2022-11-20] MEDS: Oxymetazoline 0.05% 1 SPRAY SPRAY.BTL NASAL (12:53)
[2022-11-20 12:57] VITALS: BP 130/61; PULSE 54; RESP 18
== END 2022-11-20 15:29 | disposition home or self-care (01) ==
PROVIDERS: Emergency Provider Emergency Medicine; PCP Family Medicine; Visit Provider Emergency Medicine
DX: R04.0 Epistaxis (principal); I50.9 Heart failure, unspecified; I48.0 Paroxysmal atrial fibrillation; J34.89 Other specified disorders of nose and nasal sinuses; Z86.73 Personal history of transient ischemic attack (TIA), and cerebral infarction without residual deficits; Z79.01 Long term (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 of anticoagulants
CPT/HCPCS: 30901; 99282

== ENCOUNTER → 2023-01-31 | Outpatient (CLI) | payer MEDICAID, SELFPAY ==
--- NOTE | 2023-01-31 13:28 | ECHOLC_ITS ---
Reason For Study: Cardiomyopathy Procedure This was a limited 2D transthoracic echocardiogram. The study was technically difficult. Contrast injection was performed. Exam performed in department. Left Ventricle Normal LV size. The left ventricular ejection fraction is 40 %. Mid-Inferior: Severely Hypokinetic. Infero-Basal: Severely Hypokinetic. There is mild to moderate global hypokinesis of the left ventricle. Right Ventricle Normal RV size. Normal systolic function. Atria The left atrium is mildly enlarged. Normal right atrium. Bubble contrast study negative for right to left interatrial shunt. Mitral Valve Normal mitral valve. Tricuspid Valve Normal tricuspid valve. Mild to moderate (1-2+) tricuspid valve insufficiency. Pulmonary artery systolic pressure is 48 mmHg. Aortic Valve Trisinus/trileaflet aortic valve. Pulmonic Valve Normal pulmonic valve. Great Vessels Normal aortic root. The pulmonary artery is normal size. Normal inferior vena cava. Pericardium/Pleural No pericardial effusion. Medication 22 gauge I.V. with prn adaptor inserted into right arm. Diluted definity 1ml given slow IV push to enhance endocardial definition. Performed a rapid injection of agitated mix of 9 cc saline and 1cc air to assess for atrial septal defect. MMode/2D Measurements & Calculations LVIDd: 5.3 cm IVSd: 1.1 cm Ao root diam: 3.5 cm LVIDs: 3.9 cm LVPWd: 1.0 cm LA dimension: 4.4 cm FS: 26.5 % LAV(MOD-sp4): 65.1 ml LVAd ap4: 37.3 cm2 SV(MOD-sp4): 53.5 ml LVLd ap4: 8.9 cm EDV(MOD-sp4): 126.6 ml EDV(sp4-el): 132.3 ml LVAs ap4: 25.3 cm2 LVLs ap4: 7.3 cm ESV(MOD-sp4): 73.1 ml ESV(sp4-el): 74.5 ml EF(MOD-sp4): 42.3 % EF(sp4-el): 43.7 % SV(sp4-el): 57.8 ml LA A4 area: 21.8 cm2 RA A4 area: 18.4 cm2 Time Measurements MV dec time: 0.20 sec Doppler Measurements & Calculations MV E max lázaro: 91.2 cm/sec Lat Peak E' Lázaro: 11.8 cm/sec Med Peak E' Lázaro: 5.3 cm/sec MV A max lázaro: 34.6 cm/sec E/E' lat: 7.7 E/E' med: 17.1 MV E/A: 2.6 TR max lázaro: 332.5 cm/sec MV dec slope: 463.0 cm/sec2 TR max P.2 mmHg ECHO/Echo Limited w/Contrast Interpretation Summary Normal LV size. The left ventricular ejection fraction is 40 %. The left atrium is mildly enlarged. There is mild to moderate global hypokinesis of the left ventricle. Pulmonary artery systolic pressure is 48 mmHg. Contrast injection was performed. Ordering Physician: Macy Bradshaw Referring Physician: Macy Bradshaw Performed By: Shashank Glover RCS
== END | disposition home or self-care (01) ==
LOC: CVS 13:27
PROVIDERS: PCP Family Medicine; Referring Provider Nurse Practitioner Gerontology; Visit Provider Nurse Practitioner Gerontology
DX: I42.9 Cardiomyopathy, unspecified (principal); I07.1 Rheumatic tricuspid insufficiency
CPT/HCPCS: 93308; Q9957; A4216; C8924

== ENCOUNTER → 2023-06-07 | Outpatient (CLI) | payer MEDICAID, SELFPAY ==
[2023-06-07 15:01] LABS: Absolute Lymphocyte Count 1.91 X10^3/uL (0.83-4.51); Absolute Neutrophil Count 6.8 X10^3/uL (2.0-7.7); Basophil# 0.07 X10^3/uL; Basophil% 0.7 % (0-1); Eosinophil# 0.13 X10^3/uL; Eosinophils% 1.3 % (0-5); Hematocrit 45.6 % (37-47); Hemoglobin 13.8 g/dL (12.0-15.0); Lymphocyte # 1.91 X10^3/ul (0.83-4.51); Lymphocyte % 19.2 % (19-41); Mean Corp Hgb Conc 30.3 g/dL (32-36); Mean Corpuscular Volume 99.1 fL (81-99); Mean Platelet Vol. 9.3 fl (6.2-12.0); Monocyte# 1.07 X10^3/uL; Monocyte% 10.7 % (0-10); NRBC Flagged by Analyzer 0 % (0-5); Neutrophil # 6.75 X10^3/uL (2.7-7.7); Neutrophil % 67.8 % (47-70); Platelet Count 272 K/mm3 (150-450); RBC Distribution Width CV 12.9 % (11.6-14.6); RBC Distribution Width SD 47.7 fl (35.1-43.9)
[2023-06-07 16:37] LABS: ALB/GLOB Ratio 0.7 RATIO (0.9-2.4); AST(SGOT) 35 U/L (15-37); Alanine Aminotransfer ALT/SGPT 35 U/L (13-56); Albumin, Serum 3.5 g/dL (3.2-5.0); Alkaline Phosphatase 132 U/L (45-117); Anion Gap 3 (5-15); BUN 31 mg/dL (7-18); BUN/Creat Ratio 16.8 RATIO (10-20); Chloride 102 mmol/L (98-107); Creatinine, Serum 1.84 mg/dL (0.55-1.02); EST Glomerular Filtration Rate 30 mL/min (>60); Est Glom Filt Rate - Afr Amer 36 mL/min (>60); Free T3 2.2 pg/mL (2.18-3.98); Globulin 4.7 g/dL (2.2-4.2); Glucose 144 mg/dL (74-106); Potassium 4.7 mmol/L (3.5-5.1); Protein, Total 8.2 g/dL (6.4-8.2); Sodium Level 136 mmol/L (136-145); T4 Free Direct 1.03 ng/dL (0.76-1.46); Thyroid Stim Hormone (TSH) 1.05 uIU/mL (0.358-3.74)
== END | disposition home or self-care (01) ==
LOC: LAB 14:44
PROVIDERS: PCP Family Medicine; Referring Provider Physician Assistant Medical; Visit Provider Physician Assistant Medical
DX: I42.9 Cardiomyopathy, unspecified (principal); I48.91 Unspecified atrial fibrillation
CPT/HCPCS: 36415; 80053; 84439; 84443; 84481; 85025

== ENCOUNTER 2023-06-09 08:51 | Emergency (ER) | payer MEDICAID, SELFPAY ==
[2023-06-09 08:53] VITALS: BP 163/75; PULSE 65; RESP 14; TEMP 36.4; O2SAT 98; BMI 36.8
--- NOTE | 2023-06-09 09:04 | EDS_ITS ---
HPI History of Present Illness Chief Complaint: Lower Extremity Injury Informant: patient Onset/Context/Timing Onset: Days Current Severity: Moderate Maximum Severity: Moderate Narrative Narrative: Secondary to left knee pain. She states she was walking 2 days ago when she felt a sudden sharp shooting pain in her left knee. She did not roll her ankle or fall in any way. Since that time she had increasing pain in her knee with some mild swelling. Patient states that she is taking up to 15 tabs of ibuprofen a day to control her pain. [facility] Medical History (Updated 06/09/23 @ 10:[address] Melani Hamilton MD) Atrial fibrillation, new onset Atypical chest pain Cardiomyopathy Chest pain CHF (congestive heart failure) CVA (cerebral vascular accident) Finger lesion HLD (hyperlipidemia) Hypertension Hypertensive urgency Menopausal and female climacteric states Migraine headache Obesity Type II diabetes mellitus Home Medications duloxetine 60 mg capsule,delayed release 120 mg PO QHS mental health 11/08/21 [History Last Taken Unknown] acetaminophen 325 mg tablet (Tylenol) 650 mg (2 x 325 mg) PO Q4H PRN PRN Fever, pain 1-06/21 #0 tabs 09/17/22 [Rx Last Taken Unknown] ferrous sulfate 325 mg (65 mg iron) tablet (FeroSul) 325 mg PO DAILY@1200 #0 tabs 09/17/22 [Rx Last Taken Unknown] nystatin 100,000 unit/gram topical powder (Nyamyc) 1 applic topical BID #0 grams 09/17/22 [Rx Last Taken Unknown] potassium chloride 10 mEq capsule,extended release 10 meq PO DAILY #30 caps 09/17/22 [Rx Last Taken Unknown] apixaban 5 mg tablet (Eliquis) 5 mg PO BID #180 tabs 11/04/22 [Rx Last Taken Unknown] atorvastatin 40 mg tablet 40 mg PO QHS cholesterol #90 tabs 11/04/22 [Rx Last Taken Unknown] dapagliflozin propanediol 10 mg tablet (Farxiga) 10 mg PO DAILY #90 tabs 02/09/23 [Rx Last Taken Unknown] amiodarone 200 mg tablet 200 mg PO DAILY 05/09/23 [History Last Taken Unknown] furosemide 40 mg tablet 40 mg PO DAILY 05/09/23 [History Last Taken Unknown] insulin glargine 100 unit/mL (3 mL) subcutaneous pen (Lantus Solostar U-100 Insulin) 20 unit (0.2 mL) subcut QAM #18 mL 05/09/23 [Rx Last Taken Unknown] insulin lispro 100 unit/mL subcutaneous pen (Humalog KwikPen (U-100) Insulin) 20 unit (0.2 mL) subcut TID #54 mL 05/09/23 [Rx Last Taken Unknown] magnesium 250 mg tablet 500 mg PO DAILY 05/09/23 [History Last Taken Unknown] mecobalamin (vitamin B12) 5,000 mcg disintegrating tablet 5,000 mcg PO DAILY 05/09/23 [History Last Taken Unknown] trazodone 100 mg tablet 100 mg PO DAILY 05/09/23 [History Last Taken Unknown] dulaglutide 0.75 mg/0.5 mL subcutaneous pen injector (Trulicity) 0.75 mg (0.5 mL) subcut QWEEK #2 mL 05/18/23 [Rx Last Taken Unknown] metoprolol succinate 50 mg tablet,extended release 24 hr 50 mg PO DAILY #90 tabs 06/07/23 [Rx Last Taken Unknown] hydrocodone-acetaminophen 5-325mg 5mg-325mg 1 tab PO Q6H PRN PRN Pain 3 days #10 TABLETS 06/09/23 [Rx Last Taken Unknown] Allergy/AdvReac Type Severity Reaction Status Date / Time levofloxacin [From Levaquin] Allergy Other Verified 06/09/23 08:52 Penicillins Allergy Hives Verified 06/09/23 08:52 ampicillin Allergy Intermediate Hives Uncoded 06/07/23 14:05 Family History Mother Diabetes Psoriatic arthritis Rheumatoid arthritis Father COPD (chronic obstructive pulmonary disease) With concurrent tobacco use history. Myocardial infarction Heart disease Surgical History History of foot surgery Social History adopted: No household members: spouse housing: house number of children: 0 current occupational status: employed current occupation: works at [employer] pets and animals: Yes (kittens, dogs, horses) Smoking Status: Never smoker alcohol intake: never substance use type: does not use caffeine: Yes (occasionally) Type: carbonated beverages and coffee ROS ROS ED Constitutional Constitutional ED: Denies chills or fever(s) ENT ENT ED: Denies rhinorrhea Cardiovascular Cardiovascular: Denies chest pain Respiratory/Chest Respiratory/Chest: Denies cough or dyspnea Gastrointestinal Gastrointestinal: Denies abdominal pain, nausea or vomiting Musculoskeletal Musculoskeletal: Reports extremity pain; Denies back pain Integumentary Denies Abrasions or rash Neurologic Neurologic: Denies headache(s) or weakness Psychiatric Psychiatric: Denies anxiety or depression Endocrine Endocrinology: Denies polydipsia or polyuria Allergic/Immunologic Allergic/Immunologic ED: Denies lip swelling or urticaria EXAM Physical Exam Const Vital Signs: 06/09/23 08:53 Temperature 97.6 F L Temperature Source Temporal Pulse Rate 65 Respiratory Rate 14 Blood Pressure 163/75 H Blood Pressure Mean 104 Pulse Ox 98 Oxygen Delivery Method Room Air Positive well nourished and well developed General Appearance ED: well developed HEENT Reports normocephalic and head/scalp atraumatic Eyes PERRL and EOMs intact bilaterally Neck supple Chest Wall inspection of chest normal and palpation of chest normal Resp normal respiratory effort and clear to auscultation bilaterally Cardio regular rate and regular rhythm GI normal to inspection, nondistended, normoactive bowel sounds Palpation: soft Extremity normal to inspection Extremity Narrative: Mild tenderness outpatient over the anterior knee. No significant joint effusion appreciated on exam. Slow purposeful range of motion. Strong distal pulses. Ligaments are tight on testing. Neuro oriented x3 and no sensory deficits noted Sensorium / Orientation: alert Motor Exam: strength 5/5 throughout Psych mental status grossly normal Skin no rashes or lesions noted MDM MDM MDM Narrative Medical decision making narrative: Left knee x-rays obtained to evaluate for fracture or bony abnormality. Radiography Diagnostic Testing: Clinical Impression(s) from Imaging Studies Knee X-Ray 06/09/23 09:08 IMPRESSION: Normal x-ray examination of the knee. Electronically Signed: Willem Archer MD at 10:06 EDT , Treatment and Re-Evaluation Narrative: Left knee x-ray per my interpretation reveals mild medial joint space narrowing. No acute fracture or significant joint effusion. Radiology interpretation is reviewed. Test results discussed with the patient. We discussed not taking ibuprofen as she is on Eliquis and I do not want to give her gastritis or gastric ulcer. I will write her a short course of [place]. I will refer her to orthopedics for follow-up. Return instructions given. Discharge Plan Triage Chief Complaint: Lower Extremity Injury ED Provider: Melani Hamilton Dx/Rx/DC Orders Clinical Impression: Left knee sprain Instructions: ED Knee Sprain Prescriptions: New hydrocodone-acetaminophen 5-325 mg tablet 1 tab PO Q6H PRN PRN (Reason: Pain) 3 Days Qty: 10 0RF No Action Eliquis 5 mg tablet 5 mg PO BID Qty: 180 3RF atorvastatin 40 mg tablet 40 mg PO QHS Qty: 90 3RF Farxiga 10 mg tablet 10 mg PO DAILY Qty: 90 3RF metoprolol succinate 50 mg tablet extended release 24 hr 50 mg PO DAILY Qty: 90 3RF amiodarone 200 mg tablet 200 mg PO DAILY mecobalamin (vitamin B12) 5,000 mcg tablet,disintegrating 5,000 mcg PO DAILY magnesium 250 mg tablet 500 mg PO DAILY furosemide 40 mg tablet 40 mg PO DAILY trazodone 100 mg tablet 100 mg PO DAILY insulin glargine [Lantus Solostar U-100 Insulin] 100 unit/mL (3 mL) insulin pen 20 unit subcut QAM Qty: 18 1RF insulin lispro [Humalog KwikPen Insulin] 100 unit/mL insulin pen 20 unit subcut TID Qty: 54 1RF duloxetine 60 mg capsule,delayed release(DR/EC) 120 mg PO QHS acetaminophen [Tylenol] 325 mg Tablet 650 mg PO Q4H PRN PRN (Reason: Fever, pain 1-06/21) Qty: 0 0RF ferrous sulfate [FeroSul] 325 mg (65 mg iron) Tablet 325 mg PO DAILY@1200 Qty: 0 0RF nystatin [Nyamyc] 100,000 unit/gram Powder 1 applic topical BID Qty: 0 0RF Protocol: *Topical Application Instructions APPLICATION INSTRUCTIONS: apply to affected areas potassium chloride 10 mEq capsule, extended release 10 meq PO DAILY Qty: 30 0RF Trulicity 0.75 mg/0.5 mL pen injector 0.75 mg subcut QWEEK Qty: 2 2RF Primary Care Provider: Emile Esposito Referrals: Emile Esposito MD [Primary Care Provider] - Anatoliy Moreno MD [Med Staff - Active Staff] - 1 Week if not improving Wilton Hilliard PA-C [Med Staff - Adv Practice Prof] - 1 Week if not improving Disposition Disposition: Home, Self Care
--- NOTE | 2023-06-09 09:08 | RAD_ITS ---
STUDY: X-RAY - LEFT KNEE REASON FOR EXAM: Female, 62 years old. Knee pain following injury. TECHNIQUE: 4 view(s) of the knee. COMPARISON: None. FINDINGS: Normal visualized distal femur. Normal visualized proximal tibia and fibula. Normal proximal tibiofibular articulation. Normal medial femorotibial compartment. Normal lateral femorotibial compartment. Normal patellofemoral articulation. The soft tissue structures are unremarkable. RAD/Knee 4 or More Views IMPRESSION: Normal x-ray examination of the knee. Electronically Signed: Willem Archer MD at 10:06 EDT ,
== END 2023-06-09 10:40 | disposition home or self-care (01) ==
PROVIDERS: Emergency Provider Emergency Medicine; PCP Family Medicine; Visit Provider Emergency Medicine
DX: S83.92XA Sprain of unspecified site of left knee, initial encounter (principal); I50.9 Heart failure, unspecified; X58.XXXA Exposure to other specified factors, initial encounter
CPT/HCPCS: 73564; 99282

== ENCOUNTER → 2023-06-14 | Outpatient (CLI) | payer MEDICAID, SELFPAY ==
--- NOTE | 2023-06-14 12:29 | ECHOCS_ITS ---
Reason For Study: DCMP Procedure This was a 2D Doppler, Color Flow transthoracic echocardiogram. The study was technically difficult. Contrast injection was performed. Exam performed in department. Left Ventricle Normal LV size. Mild concentric left ventricular hypertrophy. Moderate global left ventricular systolic dysfunction. The left ventricular ejection fraction is 35 %. There is moderate global hypokinesis of the left ventricle. Right Ventricle Normal RV size. Normal systolic function. Atria The left atrium is mildly enlarged. Normal right atrium. Mitral Valve Normal mitral valve. Tricuspid Valve Normal tricuspid valve. Mild (1+) tricuspid valve insufficiency. Pulmonary artery systolic pressure is 32 mmHg. Aortic Valve The aortic valve is not well visualized. Pulmonic Valve The pulmonic valve is not well visualized. Great Vessels Normal aortic root. The pulmonary artery is normal size. Normal inferior vena cava. Pericardium/Pleural No pericardial effusion. Medication 22 gauge I.V. with prn adaptor inserted into right arm. Diluted definity 2ml given slow IV push to enhance endocardial definition. MMode/2D Measurements & Calculations LVIDd: 5.2 cm IVSd: 1.3 cm Ao root diam: 3.9 cm LVIDs: 4.1 cm LVPWd: 1.2 cm FS: 21.9 % LAV(MOD-bp): 66.9 ml LVAd ap4: 42.1 cm2 SV(MOD-sp4): 70.6 ml LAV(MOD-bp) Indexed: 34.6 ml/m2 LVLd ap4: 8.7 cm LAV(MOD-sp2): 66.0 ml EDV(MOD-sp4): 162.7 ml LAV(MOD-sp4): 61.1 ml EDV(sp4-el): 172.2 ml LVAs ap4: 29.8 cm2 LVLs ap4: 7.7 cm ESV(MOD-sp4): 92.1 ml ESV(sp4-el): 98.2 ml EF(MOD-sp4): 43.4 % EF(sp4-el): 43.0 % SV(sp4-el): 74.0 ml LA A4 area: 20.4 cm2 LA dimension(2D): 4.2 cm RA A4 area: 15.0 cm2 Time Measurements MV dec time: 0.25 sec Doppler Measurements & Calculations MV E max lázaro: 77.6 cm/sec Lat Peak E' Lázaro: 10.8 cm/sec Med Peak E' Lázaro: 5.7 cm/sec MV A max lázaro: 46.0 cm/sec E/E' lat: 7.2 E/E' med: 13.6 MV E/A: 1.7 MV V2 max: 84.2 cm/sec MV dec slope: 314.8 cm/sec2 Ao V2 max: 151.7 cm/sec MV max P.8 mmHg Ao max P.2 mmHg MV V2 mean: 47.5 cm/sec Ao V2 mean: 113.2 cm/sec MV mean P.0 mmHg Ao mean P.7 mmHg MV V2 VTI: 31.9 cm Ao V2 VTI: 37.8 cm AV (velocity ratio): 0.68 LV V1 max: 107.0 cm/sec PA V2 max: 101.1 cm/sec PI dec slope: 233.2 cm/sec2 LV V1 max P.6 mmHg PA V2 mean: 74.0 cm/sec LV V1 mean P.8 mmHg LV V1 mean: 78.3 cm/sec LV V1 VTI: 25.5 cm TR max lázaro: 264.6 cm/sec TR max P.0 mmHg ECHO/Echo Complete W/ Contrast Interpretation Summary Normal LV size. Moderate global left ventricular systolic dysfunction. The left ventricular ejection fraction is 37 %. There is moderate global hypokinesis of the left ventricle. The left atrium is mildly enlarged. Pulmonary artery systolic pressure is 32 mmHg. Mild concentric left ventricular hypertrophy. Ordering Physician: Ashley Dai Referring Physician: Ashley Dai Performed By: Beba Benjamin RCS
== END | disposition home or self-care (01) ==
LOC: CVS 12:28
PROVIDERS: PCP Family Medicine; Referring Provider Physician Assistant Medical; Visit Provider Physician Assistant Medical
DX: I42.9 Cardiomyopathy, unspecified (principal)
CPT/HCPCS: 93306; Q9957; A4216; C8929

== ENCOUNTER 2023-06-20 22:54 | Inpatient (IN) | payer MEDICAID, SELFPAY ==
[2023-06-20 22:55] VITALS: BP 167/90; PULSE 80; RESP 18; TEMP 36.7; O2SAT 99
[2023-06-20 22:57] VITALS: BMI 37.4
[2023-06-20 23:12] LABS: Mucous, Urine 0 SEEN /hpf (<or=2+); Red Blood Cells-Urine 0 SEEN /hpf (0-5)
[2023-06-20 23:17] LABS: Color, Urine Yellow (Yellow); Glucose, Dipstick 1000 mg/dl (Normal); Ketone-Dipstick 5 mg/dl (Negative); Leukocyte Esterase-Dipstick 500 /ul (Negative); Nitrite-Dipstick Negative (Negative); Occult Blood-Urine 25 /ul (Negative); Protein-Dipstick 500 mg/dl (Negative); Urine Bilirubin Dipstick Negative (Negative); Urine Clarity Clear (Clear); Urine Urobilinogen Normal (Normal)
[2023-06-20 23:37] LABS: Bacteria 1+ /hpf (None Seen); Squamous Epithelial Cells - UA 0-5 SEEN /hpf (5-10); White Blood Cells 25-50 SEEN /hpf (0-5)
--- NOTE | 2023-06-20 23:43 | EKG12_ITS ---
Test Reason : Lower extremity Blood Pressure : / mmHG Vent. Rate : 075 BPM Atrial Rate : 075 BPM P-R Int : 172 ms QRS Dur : 100 ms QT Int : 404 ms P-R-T Axes : 042 -46 026 degrees QTc Int : 451 ms Normal sinus rhythm Left axis deviation Left ventricular hypertrophy ( R in aVL , Adam product , Romhilt-Bell ) Abnormal ECG Confirmed by SANJU MEEHAN, ARIE ([id number]), electronic news gathering editor PASQUALE BARRIOS ([id number]) on 06/22/2023 10:55:19 AM Referred By: Tenzin Confirmed By:ARIE BILLS MD
[2023-06-21] VITALS (22 sets, daily range): BP systolic 113–212; BP diastolic 64–125; PULSE 80–97; RESP 12–20; TEMP 35–37.4; O2SAT 91–100; BMI 37.4
[2023-06-21] MEDS: Morphine 4 MG/ML Syringe 6 MG IV (00:07)
[2023-06-21 00:37] LABS: Absolute Lymphocyte Count 1.27 X10^3/uL (0.83-4.51); Absolute Neutrophil Count 15.5 X10^3/uL (2.0-7.7); Basophil# 0.05 X10^3/uL; Basophil% 0.3 % (0-1); Hematocrit 50.2 % (37-47); Hemoglobin 16.1 g/dL (12.0-15.0); Lymphocyte # 1.27 X10^3/ul (0.83-4.51); Lymphocyte % 6.6 % (19-41); Mean Corp Hgb Conc 32.1 g/dL (32-36); Mean Corpuscular Hgb 30.1 pg (27.0-32.0); Mean Corpuscular Volume 93.8 fL (81-99); Mean Platelet Vol. 9.3 fl (6.2-12.0); NRBC Flagged by Analyzer 0 % (0-5); Neutrophil # 15.52 X10^3/uL (2.7-7.7); Neutrophil % 81.3 % (47-70); POSITIVE DIFFERENTIAL YES; Platelet Count 361 K/mm3 (150-450); RBC Distribution Width CV 12.1 % (11.6-14.6); RBC Distribution Width SD 42.1 fl (35.1-43.9); Red Blood Count 5.35 M/mm3 (4.2-5.4); White Blood Count 19.1 K/mm3 (4.4-11.0)
[2023-06-21 00:44] LABS: Differential Indicated SCAN CRITERIA MET
--- NOTE | 2023-06-21 00:44 | RAD_ITS ---
EXAM: XR CHEST, 1 VIEW CLINICAL INDICATION: chest pain TECHNIQUE: Frontal view of the chest. COMPARISON: September 09, 2022. FINDINGS: LUNGS AND PLEURAL SPACES: Unremarkable. No consolidation or edema. No pneumothorax. No effusion. HEART: Unremarkable. Cardiac silhouette not enlarged. MEDIASTINUM: Central airways and mediastinal contour are unremarkable. BONES/JOINTS: Unremarkable. SOFT TISSUES: Unremarkable. RAD/Chest 1 View (Portable) IMPRESSION: No radiographic evidence of acute cardiopulmonary disease. Electronically Signed: Emy Gonsalez MD at 1:20 EDT ,
--- NOTE | 2023-06-21 00:44 | EKG12_ITS ---
Test Reason : CP repeat Blood Pressure : / mmHG Vent. Rate : 078 BPM Atrial Rate : 078 BPM P-R Int : 154 ms QRS Dur : 102 ms QT Int : 394 ms P-R-T Axes : 024 -44 038 degrees QTc Int : 449 ms Normal sinus rhythm Left axis deviation Left ventricular hypertrophy ( R in aVL , [employer]jacket product , Romhilt-Bell ) Nonspecific ST abnormality Abnormal ECG Confirmed by SANJU MEEHAN, ARIE ([id number]), subeditor PASQUALE BARRIOS ([id number]) on 06/22/2023 10:55:44 AM Referred By: Tenzin Confirmed By:ARIE BILLS MD
--- NOTE | 2023-06-21 00:45 | EX.ED.DYSGE1 ---
HPI History of Present Illness Chief Complaint: Lower Extremity Injury Informant: patient Narrative Narrative: 62-year-old female with history of CKD, type 2 diabetes mellitus, hypertension, hyperlipidemia, cardiomyopathy, atrial fibrillation with subsequent stroke about a year ago (currently on Eliquis) presenting for worsening left knee pain as well and has urinary frequency. Patient notes that she has been dealing with this knee discomfort and pain for the past few weeks. Initially seen in our ER on 06/09 and then followed up with orthopedics (Dr. Moreno) on 06/16. At that time she received intra-articular injection of the piperocaine and Kenalog. She followed up 06/20 (earlier today) because she is not having any improvement of her pain. She notes for the first few hours after injection she was feeling better but then afterwards the pain came back. She has had no falls. She has some nausea today which she attributes to the pain and also had an episode of flushing. She has been using K tape and a brace as well. She had increased swelling of her left lower extremity. She states the pain is worse behind her knee. She also states that she has been taking high doses of Tylenol (she states that she will take 5 x 500 mg at a time) with no improvement of her pain. She did take 1 [employer] that she had leftover from her first ER visit with no improvement. In addition she developed urinary frequency last night. She states she is on the toilet every hour. Denies any associated dysuria, hematuria or odor change. Denies any other systemic symptoms. No report of fever or chills. Denies any new trauma. No other complaints or concerns at this time. [facility] Medical History Atrial fibrillation, new onset Atypical chest pain Cardiomyopathy Chest pain CHF (congestive heart failure) CVA (cerebral vascular accident) Finger lesion HLD (hyperlipidemia) Hypertension Hypertensive urgency Menopausal and female climacteric states Migraine headache Obesity Osteoarthritis of left knee Type II diabetes mellitus Home Medications duloxetine 60 mg capsule,delayed release 120 mg PO QHS mental health 11/08/21 [History Last Taken Unknown] acetaminophen 325 mg tablet (Tylenol) 650 mg (2 x 325 mg) PO Q4H PRN PRN Fever, pain 1-06/21 #0 tabs 09/17/22 [Rx Last Taken Unknown] ferrous sulfate 325 mg (65 mg iron) tablet (FeroSul) 325 mg PO DAILY@1200 #0 tabs 09/17/22 [Rx Last Taken Unknown] nystatin 100,000 unit/gram topical powder (Nyamyc) 1 applic topical BID #0 grams 09/17/22 [Rx Last Taken Unknown] potassium chloride 10 mEq capsule,extended release 10 meq PO DAILY #30 caps 09/17/22 [Rx Last Taken Unknown] apixaban 5 mg tablet (Eliquis) 5 mg PO BID #180 tabs 11/04/22 [Rx Last Taken Unknown] atorvastatin 40 mg tablet 40 mg PO QHS cholesterol #90 tabs 11/04/22 [Rx Last Taken Unknown] dapagliflozin propanediol 10 mg tablet (Farxiga) 10 mg PO DAILY #90 tabs 02/09/23 [Rx Last Taken Unknown] amiodarone 200 mg tablet 200 mg PO DAILY 05/09/23 [History Last Taken Unknown] furosemide 40 mg tablet 40 mg PO DAILY 05/09/23 [History Last Taken Unknown] insulin glargine 100 unit/mL (3 mL) subcutaneous pen (Lantus Solostar U-100 Insulin) 20 unit (0.2 mL) subcut QAM #18 mL 05/09/23 [Rx Last Taken Unknown] insulin lispro 100 unit/mL subcutaneous pen (Humalog KwikPen (U-100) Insulin) 20 unit (0.2 mL) subcut TID #54 mL 05/09/23 [Rx Last Taken Unknown] magnesium 250 mg tablet 500 mg PO DAILY 05/09/23 [History Last Taken Unknown] mecobalamin (vitamin B12) 5,000 mcg disintegrating tablet 5,000 mcg PO DAILY 05/09/23 [History Last Taken Unknown] trazodone 100 mg tablet 100 mg PO DAILY 05/09/23 [History Last Taken Unknown] dulaglutide 0.75 mg/0.5 mL subcutaneous pen injector (Trulicity) 0.75 mg (0.5 mL) subcut QWEEK #2 mL 05/18/23 [Rx Last Taken Unknown] metoprolol succinate 50 mg tablet,extended release 24 hr 50 mg PO DAILY #90 tabs 06/07/23 [Rx Last Taken Unknown] hydrocodone-acetaminophen 5-325mg 5mg-325mg 1 tab PO Q6H PRN PRN Pain 3 days #10 TABLETS 06/09/23 [Rx Last Taken Unknown] methylprednisolone 4 mg tablets in a dose pack (Medrol (Bird)) See Rx Instructions PO PER PKG DIR #21 tabs 06/20/23 [Rx Last Taken Unknown] Allergy/AdvReac Type Severity Reaction Status Date / Time ampicillin Allergy Intermediate Hives Verified 06/21/23 04:52 levofloxacin [From Levaquin] Allergy Other Verified 06/20/23 22:57 Penicillins Allergy Hives Verified 06/20/23 22:57 ampicillin Allergy Intermediate Hives Uncoded 06/20/23 13:04 Family History Mother Diabetes Psoriatic arthritis Rheumatoid arthritis Father COPD (chronic obstructive pulmonary disease) With concurrent tobacco use history. Myocardial infarction Heart disease Surgical History History of foot surgery Social History adopted: No household members: spouse housing: house number of children: 0 current occupational status: employed current occupation: works at [employer] pets and animals: Yes (kittens, dogs, horses) Smoking Status: Never smoker alcohol intake: never substance use type: does not use caffeine: Yes (occasionally) Type: carbonated beverages and coffee ROS ROS ED Constitutional Constitutional ED: Reports sweats; Denies chills or fever(s) Cardiovascular Cardiovascular: Denies chest pain or palpitations Respiratory/Chest Respiratory/Chest: Denies cough or dyspnea Gastrointestinal Gastrointestinal: Reports nausea; Denies abdominal pain or vomiting Genitourinary Genitourinary ED: Reports urinary frequency; Denies dysuria or hematuria Musculoskeletal Musculoskeletal: Reports other Details: Left knee pain ; Denies back pain or myalgias Integumentary Denies rash Neurologic Neurologic: Denies headache(s), paresthesias or weakness Psychiatric Psychiatric: Denies anxiety Hematologic/Lymphatic Hematologic/Lymphatic: Reports easy bleeding and easy bruising EXAM Physical Exam Const Vital Signs: 06/20/23 22:55 06/21/23 01:00 06/21/23 01:37 Temperature 98.0 F Temperature Source Temporal Pulse Rate 80 80 84 Respiratory Rate 18 17 16 Blood Pressure 167/90 H 182/99 H 167/99 H Blood Pressure Mean 115 125 121 Pulse Ox 99 92 Oxygen Delivery Method Room Air Room Air 06/21/23 00:45 06/21/23 02:00 Temperature 98.2 F Temperature Source Oral Pulse Rate 80 Respiratory Rate 16 Blood Pressure 168/98 H Blood Pressure Mean 121 Pulse Ox 98 Oxygen Delivery Method Positive well nourished, well developed and obese General Appearance ED: well developed and NAD Nutritional Appearance: obese HEENT Reports moist mucous membranes Eyes PERRL and EOMs intact bilaterally Neck supple Chest Wall inspection of chest normal and palpation of chest normal Resp normal respiratory effort and clear to auscultation bilaterally Cardio regular rate, regular rhythm and no murmurs GI normal to inspection, nondistended, normoactive bowel sounds and non-tender Extremity Extremity Narrative: Left lower extremity?no deformity. No hip pain with range of motion. Slight joint effusion of the left knee. Extensor mechanisms intact however it is quite painful when she tries left upper leg. Not able to perform stress testing on the knee due to pain. No associated warmth or overlying erythema. No pinpoint area of tenderness. She does not have short arc range of motion pain but does have significant pain with any larger movements. Nonpitting edema of the distal calf and ankle however no pedal edema present. 2+ DP pulse. Neuro oriented x3 Sensorium / Orientation: alert Motor Exam: Negative for general weakness Psych mental status grossly normal Skin no rashes or lesions noted and no wounds MDM MDM MDM Narrative Medical decision making narrative: Is evaluated for worsening left knee pain as well as urinary frequency. Patient is given IV morphine for pain control with improvement of her symptoms. Given her recent steroids differential for the urinary frequency includes urinary tract infection, hyperglycemia, metabolic derangement or polydipsia. She is more tender than I would expect of her knee and differential includes knee inflammation, worsening effusion and septic joint. Discussed with patient that if we cannot get her pain under control or if she has mobility issues she might require admission to the hospital. We will start with checking labs. In addition I am concerned because patient is taking such high doses of Tylenol and will check liver labs as well as Tylenol over for that. Counseled that she should take no more than 3 g of Tylenol in 24 hours and that the maximum one-time dose is 1 g. Patient is reevaluated and has improvement of her pain however she is now suddenly complaining of central chest discomfort. She states it feels like a squeezing pressure. We will get a repeat EKG, add on troponins and check a chest x-ray. Low suspicion for pulmonary emboli or VTE given that she is chronically anticoagulated on Eliquis and has been compliant with this. She does not appear fluid overloaded. Patient has a significant leukocytosis of 19.1 however she is also likely hemoconcentrated with a hemoglobin of 16.1. Platelets are normal. Her MP is at baseline. She does not have an acute transaminitis and her Tylenol level is normal. Low suspicion for unintentional Tylenol overdose. She does have baseline CKD with a creatinine of 1.9 but again this is near her baseline. High since he troponin initially is 17. Does have significantly elevated inflammatory markers with a CRP of 126 and an ESR of greater than 130. Her urinalysis is consistent with infection with 25-50 white blood cells and 1+ bacteria however there is some slight contamination. Given her elevated inflammatory markers in the setting of worsening atraumatic knee pain I do not feel like I can adequately rule out a septic joint. She does not have report any history of gout. Patient will be admitted for orthopedic consult and rule out septic joint. In addition her leukocytosis is nonspecific given her recent steroids however suspect it could be more infectious. Since she does not have any systemic symptoms despite having 24 hours of UTI symptoms will defer antibiotics until orthopedic can see her in the morning as I suspect they will likely perform an arthrocentesis and send off sampling. She can start antibiotics after that point. This is discussed with hospitalist. Case is discussed with orthopedic PA who will relay this information to Dr. Moreno in the morning. Urine culture is sent and pending. Patient does have improvement of pain after receiving morphine and is more comfortable. Case is discussed with admitting physician and she is admitted to the PCU given her episode of chest pain as well. Patient's chest pain resolved spontaneously about 15 minutes after it started. She did not receive nitro even though it was ordered her resolution of pain. Lab Data Attestation: I reviewed the patient's lab results. Labs: Laboratory Results - last 24 hr 06/20/23 06/21/23 06/21/23 23:10 00:04 00:50 WBC 19.1 H RBC 5.35 Hgb 16.1 H Hct 50.2 H MCV 93.8 MCH 30.1 MCHC 32.1 RDW Std Deviation 42.1 RDW Coeff of Patricia 12.1 Plt Count 361 MPV 9.3 Immature Gran % (Auto) 0.800 Neut % (Auto) 81.3 H Lymph % (Auto) 6.6 L Gove % (Auto) 11.0 H Eos % (Auto) 0.0 Baso % (Auto) 0.3 Absolute Neuts (auto) 15.5 H Absolute Lymphs (auto) 1.27 Nucleated RBC % 0 Differential Comment SCANNED Diff Path Review May foll ESR > 130 H Sodium 130 L Potassium 4.8 Chloride 94 L Carbon Dioxide 28.0 Anion Gap 8 BUN 44 H Creatinine 1.90 H Est GFR (MDRD) Af Amer 34 L Est GFR (MDRD) Non-Af 29 L BUN/Creatinine Ratio 23.2 H Glucose 190 H Calcium 9.5 Total Bilirubin 0.70 Direct Bilirubin 0.24 AST 15 ALT 39 Alkaline Phosphatase 121 H Troponin I High Sens 17 C-React Prot Ext Range 126.00 H Total Protein 8.8 H Albumin 3.3 Globulin 5.5 H Urine Color Yellow Urine Clarity Clear Urine pH 7.0 Ur Specific [place] 1.010 Urine Protein 500 H Urine Glucose (UA) 1000 H Urine Ketones 5 H Urine Occult Blood 25 H Urine Nitrite Negative Urine Bilirubin Negative Urine Urobilinogen Normal Ur Leukocyte Esterase 500 H Urine RBC 0 SEEN Urine WBC 25-50 SEEN Ur Squamous Epith Cells 0-5 SEEN Urine Bacteria 1+ Urine Mucus 0 SEEN Acetaminophen < 2.0 L Radiography Chest X-Ray - ED: 1 View, Read by ED Physician, Read by Radiologist and No Acute Disease Diagnostic Testing: Clinical Impression(s) from Imaging Studies Chest X-Ray 06/21/23 00:44 IMPRESSION: No radiographic evidence of acute cardiopulmonary disease. Electronically Signed: Emy Gonsalez MD at 1:20 EDT , Rhythm Strip Rhythm Strip: Sinus Rhythm Rate: 75 Ectopy: None EKG Initial EKG: Attestation: I personally reviewed and interpreted this EKG as follows: Interpretation: Sinus Rhythm Comments: Sinus rhythm at a rate of 75 bpm Left axis deviation LVH by criteria Nonspecific T wave changes Compared to prior EKG on 06/07/2023 patient has sniffing and interval changes Prior EKG tracings: available for review Prior: Unchanged Follow-up EKG: Attestation: I personally reviewed and interpreted this EKG as follows: Interpretation: Sinus Rhythm Comments: Normal sinus rhythm rate of 78 bpm Left axis deviation LVH Nonspecific T wave changes No significant change compared to prior EKG Management Discussion w/another healthcare provider: Hospitalist and [employer] Additional Tests and Interventions Diagnositc testing considered but not performed: Arthrocentesis?patient is anticoagulated, will defer for orthopedics Discharge Plan Dx/Rx/DC Orders Clinical Impression: Abnormal urinalysis, Chronic kidney disease, Septic arthritis, Leukocytosis Disposition Disposition: Acute Care Hospital [facility] Discharge Date/Time: 06/21/23 03:03
[2023-06-21 00:51] LABS: AST(SGOT) 15 U/L (15-37); Alanine Aminotransfer ALT/SGPT 39 U/L (13-56); Albumin, Serum 3.3 g/dL (3.2-5.0); Alkaline Phosphatase 121 U/L (45-117); Anion Gap 8 (5-15); BUN 44 mg/dL (7-18); BUN/Creat Ratio 23.2 RATIO (10-20); Bilirubin, Direct 0.24 mg/dL (0.00-0.30); Calcium,Total 9.5 mg/dL (8.5-10.1); Chloride 94 mmol/L (98-107); EST Glomerular Filtration Rate 29 mL/min (>60); Est Glom Filt Rate - Afr Amer 34 mL/min (>60); Globulin 5.5 g/dL (2.2-4.2); Glucose 190 mg/dL (74-106); Potassium 4.8 mmol/L (3.5-5.1); Protein, Total 8.8 g/dL (6.4-8.2); Sodium Level 130 mmol/L (136-145)
[2023-06-21] MEDS: Aspirin 81 MG TAB.CHEW 324 MG PO (00:57)
[2023-06-21 01:00] LABS: Acetaminophen (Tylenol) Level < 2.0 ug/mL (10.0-30.0)
[2023-06-21 01:03] LABS: Erythrocyte Sedimentation Rate > 130 mm/hr (0-30)
[2023-06-21 01:15] LABS: Differential Comment SCANNED
[2023-06-21 01:20] LABS: Troponin-I HS (w/2H Reflex) 17 pg/mL (3.0-54.0)
--- NOTE | 2023-06-21 02:29 | PCM.HP.STD ---
HPI - General General Date of Admission: 06/21/23 Date of Service: 06/21/23 Chief Complaint: Left knee pain HPI Narrative MARIA OTT, is a 62 F with a significant history of CKD; obesity; hypertension; hyperlipidemia; atrial fibrillation cardioversion and heart failure with reduced ejection fraction who presents to the emergency department with progressive worsening left knee pain that started about a week before presentation. Patient went to see Orthopedic on the same day of presentation and she was given Medrol Dosepak which she took 1 dose of it. However, because her symptoms continued to worsen she came to the emergency department. Her left knee pain started about a week ago after she twisted her knee. At that time she came to emergency department. She was treated and discharged and referred to orthopedic surgeon. On 06/16/2023 patient received a Kenalog shot in her left knee at the orthopedics surgery office. On this presentation inflammation markers were high. Emergency department doctor discussed the case with orthopedic surgeon on-call who agreed that patient should stay at the hospital for further evaluation by orthopedic. Also while at the emergency department she complained of chest pain. She reports that her chest pain started after she was given morphine. Patient also complained of urinary frequency and urgency. [facility] Medical History (Updated 06/21/23 @ 07:[address] Hebert Ruiz MD) Atrial fibrillation, new onset Atypical chest pain Cardiomyopathy Chest pain CHF (congestive heart failure) CVA (cerebral vascular accident) Finger lesion HLD (hyperlipidemia) Hypertension Hypertensive urgency Menopausal and female climacteric states Migraine headache Obesity Osteoarthritis of left knee Type II diabetes mellitus Home Medications duloxetine 60 mg capsule,delayed release 120 mg PO QHS mental health 11/08/21 [History Last Taken Unknown] acetaminophen 325 mg tablet (Tylenol) 650 mg (2 x 325 mg) PO Q4H PRN PRN Fever, pain 1-06/21 #0 tabs 09/17/22 [Rx Last Taken Unknown] ferrous sulfate 325 mg (65 mg iron) tablet (FeroSul) 325 mg PO DAILY@1200 #0 tabs 09/17/22 [Rx Last Taken Unknown] potassium chloride 10 mEq capsule,extended release 10 meq PO DAILY supplement #30 caps 09/17/22 [Rx Last Taken Unknown] apixaban 5 mg tablet (Eliquis) 5 mg PO BID #180 tabs 11/04/22 [Rx Last Taken Unknown] atorvastatin 40 mg tablet 40 mg PO QHS cholesterol #90 tabs 11/04/22 [Rx Last Taken Unknown] dapagliflozin propanediol 10 mg tablet (Farxiga) 10 mg PO DAILY #90 tabs 02/09/23 [Rx Last Taken Unknown] amiodarone 200 mg tablet 200 mg PO DAILY 05/09/23 [History Last Taken Unknown] furosemide 40 mg tablet 40 mg PO DAILY 05/09/23 [History Last Taken Unknown] insulin lispro 100 unit/mL subcutaneous pen (Humalog KwikPen (U-100) Insulin) 20 unit (0.2 mL) subcut TID diabetes #54 mL 05/09/23 [Rx Last Taken Unknown] magnesium 250 mg tablet 500 mg PO DAILY supplement 05/09/23 [History Last Taken Unknown] mecobalamin (vitamin B12) 5,000 mcg disintegrating tablet 5,000 mcg PO DAILY supplement 05/09/23 [History Last Taken Unknown] trazodone 100 mg tablet 100 mg PO DAILY insomnia 05/09/23 [History Last Taken Unknown] dulaglutide 0.75 mg/0.5 mL subcutaneous pen injector (Trulicity) 0.75 mg (0.5 mL) subcut QWEEK #2 mL 05/18/23 [Rx Last Taken Unknown] metoprolol succinate 50 mg tablet,extended release 24 hr 50 mg PO DAILY #90 tabs 06/07/23 [Rx Last Taken Unknown] methylprednisolone 4 mg tablets in a dose pack (Medrol (Bird)) See Rx Instructions PO PER PKG DIR steroid for knee #21 tabs 06/20/23 [Rx Last Taken 06/20/23] insulin glargine 100 unit/mL (3 mL) subcutaneous pen (Lantus Solostar U-100 Insulin) 12 unit subcut QHS diabetes 06/21/23 [History Last Taken Unknown] nystatin 100,000 unit/gram topical powder (Nyamyc) 1 applic topical BID PRN redness 06/21/23 [History Last Taken Unknown] Allergy/AdvReac Type Severity Reaction Status Date / Time ampicillin Allergy Intermediate Hives Verified 06/21/23 04:52 levofloxacin [From Levaquin] Allergy Other Verified 06/20/23 22:57 Penicillins Allergy Hives Verified 06/20/23 22:57 ampicillin Allergy Intermediate Hives Uncoded 06/20/23 13:04 Family History Mother Diabetes Psoriatic arthritis Rheumatoid arthritis Father COPD (chronic obstructive pulmonary disease) With concurrent tobacco use history. Myocardial infarction Heart disease Surgical History History of foot surgery Social History adopted: No household members: spouse housing: house number of children: 0 current occupational status: employed current occupation: works at [employer] pets and animals: Yes (kittens, dogs, horses) Smoking Status: Never smoker alcohol intake: never substance use type: does not use caffeine: Yes (occasionally) Type: carbonated beverages and coffee ROS ROS Narrative Pertinent positives and pertinent negatives as noted in HPI. All other systems were reviewed and are negative Vital Signs Vital Signs Vital Signs: 06/20/23 22:55 06/21/23 01:00 06/21/23 01:37 Temperature 98.0 F Temperature Source Temporal Pulse Rate 80 80 84 Respiratory Rate 18 17 16 Blood Pressure 167/90 H 182/99 H 167/99 H Blood Pressure Mean 115 125 121 Pulse Ox 99 92 Oxygen Delivery Method Room Air Room Air 06/21/23 00:45 Temperature 98.2 F Temperature Source Oral Pulse Rate Respiratory Rate Blood Pressure Blood Pressure Mean Pulse Ox Oxygen Delivery Method Physical Exam Narrative Physical exam: General: Well-nourished, well-developed. Head: Normocephalic, atraumatic, no tenderness Eyes: Vision is grossly intact. EOMI ENT, no trauma, moist mucous membranes, no rhinorrhea Neck: Nontender, No thyromegaly. CVS: Irregularly regular rate and rhythm. S1-S2 present. No murmur, gallop or rub. Respiratory : clear to auscultation bilaterally, chest wall nontender Abdomen: Soft, nontender, nondistended, normal bowel sounds, no masses : Deferred Back: Nontender, no CVA tenderness Extremities: Tender left knee. Nontender right knee. Nontender full range of motion, no trauma Skin: Normal color, no trauma, abrasions Neuro: Alert, oriented, cranial nerves II through XII grossly intact. Psychiatry: Normal mood. Normal affect. Not depressed. Not anxious. Results Lab / Micro Data 06/21/23 03:51 06/21/23 03:51 Labs: Laboratory Results - last 24 hr 06/20/23 23:10: Urine Color Yellow, Urine Clarity Clear, Urine pH 7.0, Ur Specific [place] 1.010, Urine Protein 500 H, Urine Glucose (UA) 1000 H, Urine Ketones 5 H, Urine Occult Blood 25 H, Urine Nitrite Negative, Urine Bilirubin Negative, Urine Urobilinogen Normal, Ur Leukocyte Esterase 500 H, Urine RBC 0 SEEN, Urine WBC 25-50 SEEN, Ur Squamous Epith Cells 0-5 SEEN, Urine Bacteria 1+, Urine Mucus 0 SEEN 06/21/23 00:04: WBC 19.1 H, RBC 5.35, Hgb 16.1 H, Hct 50.2 H, MCV 93.8, MCH 30.1, MCHC 32.1, RDW Std Deviation 42.1, RDW Coeff of Patricia 12.1, Plt Count 361, MPV 9.3, Immature Gran % (Auto) 0.800, Neut % (Auto) 81.3 H, Lymph % (Auto) 6.6 L, [place] % (Auto) 11.0 H, Eos % (Auto) 0.0, Baso % (Auto) 0.3, Absolute Neuts (auto) 15.5 H, Absolute Lymphs (auto) 1.27, Nucleated RBC % 0, Differential Comment SCANNED, Diff Path Review January, ESR > 130 H, Sodium 130 L, Potassium 4.8, Chloride 94 L, Carbon Dioxide 28.0, Anion Gap 8, BUN 44 H, Creatinine 1.90 H, Est GFR (MDRD) Af Amer 34 L, Est GFR (MDRD) Non-Af 29 L, BUN/Creatinine Ratio 23.2 H, Glucose 190 H, Calcium 9.5, Total Bilirubin 0.70, Direct Bilirubin 0.24, AST 15, ALT 39, Alkaline Phosphatase 121 H, C-React Prot Ext Range 126.00 H, Total Protein 8.8 H, Albumin 3.3, Globulin 5.5 H, Acetaminophen < 2.0 L 06/21/23 00:50: Troponin I High Sens 17 Rhythm Strip Rhythm Strip: Sinus Rhythm Rate: 75 Ectopy: None Radiology Impression Chest X-Ray 06/21/23 00:44 IMPRESSION: No radiographic evidence of acute cardiopulmonary disease. Electronically Signed: Emy Gonsalez MD at 1:20 EDT , Assessment & Plan Assessment/Plan (1) Septic arthritis: QUALIFIERS: Laterality: left Septic arthritis location: knee Septic arthritis organism: due to other bacteria Qualified Code(s): M00.862 - Arthritis due to other bacteria, left knee (2) UTI (urinary tract infection): QUALIFIERS: Hematuria presence: without hematuria Urinary tract infection type: acute cystitis Qualified Code(s): N30.00 - Acute cystitis without hematuria (3) Type II diabetes mellitus: QUALIFIERS: Diabetes mellitus complication status: with hyperglycemia Diabetes mellitus terminal manager insulin use: with residential use Qualified Code(s): E11.65 - Type 2 diabetes mellitus with hyperglycemia; Z79.4 - terminal system operator (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 of insulin (4) CHF (congestive heart failure): QUALIFIERS: Heart failure type: systolic Heart failure chronicity: chronic Qualified Code(s): I50.22 - Chronic systolic (congestive) heart failure (5) Atrial fibrillation: QUALIFIERS: Atrial fibrillation type: permanent Qualified Code(s): I48.21 - Permanent atrial fibrillation (6) Chest pain: QUALIFIERS: Chest pain type: unspecified Qualified Code(s): R07.9 - Chest pain, unspecified PLAN: Plan Possible septic arthritis White count 19,100 with follow with neutrophilic predominance and lymphopenia as well as with monocytosis. CRP is markedly elevated at 126; ESR is markedly elevated at more than 130. ED doctor discussed case with orthopedic surgeon As needed Tylenol, as needed oxycodone; Dilaudid prn ordered for pain. Hold off patient's Eliquis since patient is a candidate of arthrocentesis. UTI Urinalysis reviewed, abnormal. ED doctor discussed case with orthopedic doctor [employer] fire chief who recommended not starting patient on any form of antibiotics until aspiration of left knee joint. Follow Urine culture. Chest pain Developed after receiving morphine at the ED Received aspirin at emergency department Resolved EKG is unchanged Clinical monitoring on telemetry Troponin negative, trend Type 2 diabetes Patient with high glucose likely secondary to recent Kenalog use and p.o. steroids. Accu-Chek with correction scale insulin ordered. Dapagliflozin ordered. High intensity statin ordered. Atrial fibrillation; rate controlled or mild RVR. Amiodarone continued. Eliquis been held secondary to possible thoracentesis. Patient's family is concerned that patient had a CVA a year ago and is on Eliquis to prevent same. Resume Eliquis or heparin as indicated. If thoracentesis will be delayed recommending starting heparin drip. Chronic Heart failure with reduced ejection fraction Echo on 06/14/23 showed EF of 35%. At 53% was 32 mmHg. Echocardiogram on 01/31/2023 showed EF of 40%. Cardiac cath in 05/19/2022 showed EF of 30%. On 05/18/2022 showed EF of 30%. Does not Look acutely decompensated. Lasix continued. Dapagliflozin continued. DVT prophylaxis SCD ordered. Time spent in the patient's overall evaluation,decision-making process, review of diagnostic data, adjustment of management, discussion with other providers, nursing nursing and ancillary staff involved in patient's care documentation, 70 minutes. Charges/Coding Visit Charges Inpatient E&M: 91452 Init Hosp L3
[2023-06-21 03:00] LABS: Reflex Troponin-HS? (from REC) Y
[2023-06-21 04:27] LABS: Troponin-I HS 19 pg/mL (3.0-54.0)
[2023-06-21 04:36] LABS: Absolute Lymphocyte Count 1.29 X10^3/uL (0.83-4.51); Absolute Neutrophil Count 12.8 X10^3/uL (2.0-7.7); Basophil# 0.03 X10^3/uL; Basophil% 0.2 % (0-1); Hematocrit 49.4 % (37-47); Hemoglobin 15.8 g/dL (12.0-15.0); Lymphocyte # 1.29 X10^3/ul (0.83-4.51); Mean Corpuscular Hgb 30.2 pg (27.0-32.0); Mean Corpuscular Volume 94.5 fL (81-99); Mean Platelet Vol. 9.4 fl (6.2-12.0); Monocyte# 1.91 X10^3/uL; Monocyte% 11.8 % (0-10); NRBC Flagged by Analyzer 0 % (0-5); Neutrophil # 12.83 X10^3/uL (2.7-7.7); Neutrophil % 79.4 % (47-70); POSITIVE DIFFERENTIAL YES; Platelet Count 347 K/mm3 (150-450); RBC Distribution Width CV 12.2 % (11.6-14.6); RBC Distribution Width SD 42.8 fl (35.1-43.9); Red Blood Count 5.23 M/mm3 (4.2-5.4); White Blood Count 16.2 K/mm3 (4.4-11.0)
[2023-06-21 04:44] LABS: Anion Gap 9 (5-15); BUN 44 mg/dL (7-18); BUN/Creat Ratio 25.9 RATIO (10-20); Calcium,Total 8.8 mg/dL (8.5-10.1); Chloride 96 mmol/L (98-107); EST Glomerular Filtration Rate 32 mL/min (>60); Est Glom Filt Rate - Afr Amer 39 mL/min (>60); Estimated Creatinine Clearance 28.75 ml/min; Glucose 232 mg/dL (74-106); Potassium 5.3 mmol/L (3.5-5.1); Sodium Level 132 mmol/L (136-145)
[2023-06-21 05:27] LABS: Differential Indicated SCAN CRITERIA MET
[2023-06-21 05:32] LABS: Differential Comment SCANNED
[2023-06-21] MEDS: Insulin Lispro 100 UNIT/ML INSULN.PEN SC ×3 (06:58→15:54)
[2023-06-21 07:25] LABS: Bedside Glucose 199 mg/dL (74-106)
--- NOTE | 2023-06-21 08:33 | CON.PCM.OR_ITS ---
HPI Consult Data Date of Consult: 06/21/23 HPI Narrative HPI Narrative: MARIA OTT, is a 62 F who presents with recent left knee pain. The patient was originally admitted to hospital over a week ago discharged home and then follow- up with me in clinic 4 days ago on of last week. At that point had some small trace effusion mild amount of warmth no redness drainage or other constitutional symptoms. I did a cortisone injection on they presented to clinic on Tuesday with some more pain. Low suspicion of an infection at that point more so in keeping with an acute flare reaction. Patient has experienced the only other constitutional symptom they are having as increased urinary frequency. As well as some more knee pain now. No fevers or chills or other constitutional symptoms. I was called this morning at 730am by Giovanni with the concern that the patient could have a septic knee so a rushed over to the hospital saw the patient quarter 8. [facility] Medical History (Updated 06/21/23 @ 08:36 by Anatoliy Moreno MD) Atrial fibrillation, new onset Atypical chest pain Cardiomyopathy Chest pain CHF (congestive heart failure) CVA (cerebral vascular accident) Effusion, left knee Finger lesion HLD (hyperlipidemia) Hypertension Hypertensive urgency Menopausal and female climacteric states Migraine headache Obesity Osteoarthritis of left knee Type II diabetes mellitus Home Medications duloxetine 60 mg capsule,delayed release 120 mg PO QHS mental health 11/08/21 [History Last Taken Unknown] acetaminophen 325 mg tablet (Tylenol) 650 mg (2 x 325 mg) PO Q4H PRN PRN Fever, pain 1-06/21 #0 tabs 09/17/22 [Rx Last Taken Unknown] ferrous sulfate 325 mg (65 mg iron) tablet (FeroSul) 325 mg PO DAILY@1200 #0 tabs 09/17/22 [Rx Last Taken Unknown] potassium chloride 10 mEq capsule,extended release 10 meq PO DAILY supplement #30 caps 09/17/22 [Rx Last Taken Unknown] apixaban 5 mg tablet (Eliquis) 5 mg PO BID #180 tabs 11/04/22 [Rx Last Taken Unknown] atorvastatin 40 mg tablet 40 mg PO QHS cholesterol #90 tabs 11/04/22 [Rx Last Ta ubaldo Unknown] dapagliflozin propanediol 10 mg tablet (Farxiga) 10 mg PO DAILY #90 tabs 02/09/23 [Rx Last Taken Unknown] amiodarone 200 mg tablet 200 mg PO DAILY 05/09/23 [History Last Taken Unknown] furosemide 40 mg tablet 40 mg PO DAILY 05/09/23 [History Last Taken Unknown] insulin lispro 100 unit/mL subcutaneous pen (Humalog KwikPen (U-100) Insulin) 20 unit (0.2 mL) subcut TID diabetes #54 mL 05/09/23 [Rx Last Taken Unknown] magnesium 250 mg tablet 500 mg PO DAILY supplement 05/09/23 [History Last Taken Unknown] mecobalamin (vitamin B12) 5,000 mcg disintegrating tablet 5,000 mcg PO DAILY sup plement 05/09/23 [History Last Taken Unknown] trazodone 100 mg tablet 100 mg PO DAILY insomnia 05/09/23 [History Last Taken Unknown] dulaglutide 0.75 mg/0.5 mL subcutaneous pen injector (Trulicity) 0.75 mg (0.5 mL) subcut QWEEK #2 mL 05/18/23 [Rx Last Taken Unknown] metoprolol succinate 50 mg tablet,extended release 24 hr 50 mg PO DAILY #90 tabs 06/07/23 [Rx Last Taken Unknown] methylprednisolone 4 mg tablets in a dose pack (Medrol (Bird)) See Rx Instructions PO PER PKG DIR steroid for knee #21 tabs 06/20/23 [Rx Last Taken 06/20/23] insulin glargine 100 unit/mL (3 mL) subcutaneous pen (Lantus Solostar U-100 Insulin) 12 unit subcut QHS diabetes 06/21/23 [History Last Taken Unknown] nystatin 100,000 unit/gram topical powder (Nyamyc) 1 applic topical BID PRN redness 06/21/23 [History Last Taken Unknown] Allergy/AdvReac Type Severity Reaction Status Date / Time ampicillin Allergy Intermediate Hives Verified 06/21/23 04:52 levofloxacin [From Levaquin] Allergy Other Verified 06/20/23 22:57 Penicillins Allergy Hives Verified 06/20/23 22:57 ampicillin Allergy Intermediate Hives Uncoded 06/20/23 13:04 Family History Mother Diabetes Psoriatic arthritis Rheumatoid arthritis Father COPD (chronic obstructive pulmonary disease) With concurrent tobacco use history. Myocardial infarction Heart disease Surgical History History of foot surgery Social History adopted: No household members: spouse housing: house number of children: 0 current occupational status: employed current occupation: works at [employer] pets and animals: Yes (kittens, dogs, horses) Smoking Status: Never smoker alcohol intake: never substance use type: does not use caffeine: Yes (occasionally) Type: carbonated beverages and coffee Vital Signs Vital Signs Vital Signs: 06/20/23 22:55 06/21/23 01:00 06/21/23 01:37 Temperature 98.0 F Temperature Source Temporal Pulse Rate 80 80 84 Respiratory Rate 18 17 16 Respiratory Effort Respiratory Depth Respiratory Pattern Blood Pressure 167/90 H 182/99 H 167/99 H Blood Pressure Mean 115 125 121 Blood Pressure Source Blood Pressure Position Blood Pressure Location Pulse Ox 99 92 Oxygen Delivery Method Room Air Room Air 06/21/23 00:45 06/21/23 02:00 06/21/23 02:32 Temperature 98.2 F 98.2 F Temperature Source Oral Oral Pulse Rate 80 80 Respiratory Rate 16 16 Respiratory Effort Respiratory Depth Respiratory Pattern Blood Pressure 168/98 H 168/98 H Blood Pressure Mean 121 121 Blood Pressure Source Blood Pressure Position Blood Pressure Location Pulse Ox 98 98 Oxygen Delivery Method Room Air 06/21/23 03:43 06/21/23 03:40 06/21/23 03:43 Temperature 99.4 F H 99.4 F H Temperature Source Oral Temporal Pulse Rate 80 80 Respiratory Rate 17 17 Respiratory Effort Normal Non-Labored Respiratory Depth Normal Respiratory Pattern Normal Blood Pressure 173/68 H 173/68 H Blood Pressure Mean 103 103 Blood Pressure Source Monitor Blood Pressure Position Semi-Fowlers Blood Pressure Location Left Arm Pulse Ox 97 97 Oxygen Delivery Method Room Air Room Air Room Air 06/21/23 07:26 Temperature Temperature Source Pulse Rate Respiratory Rate Respiratory Effort Respiratory Depth Respiratory Pattern Blood Pressure Blood Pressure Mean Blood Pressure Source Blood Pressure Position Blood Pressure Location Pulse Ox 96 Oxygen Delivery Method Room Air Weight Weight: 211 lb 3.245 oz Body Mass Index (BMI) 37.4 Physical Exam Const alert and oriented x3 Extremity Extremity Narrative: Left knee looks the same as it did on Tuesday yesterday. There is a trace effusion. There is no redness or drainage. The injection site looks normal. Range of motion is little bit less today 0 to 30 degrees more painful to move. Strong pedal pulses normal sensation throughout the foot. Medical Records Data Attestation: I reviewed the patient's medical records Lab / Micro Data Attestation: I reviewed the patient's lab results. 06/21/23 03:51 06/21/23 03:51 Labs: Laboratory Results - last 24 hr 06/20/23 23:10: Urine Color Yellow, Urine Clarity Clear, Urine pH 7.0, Ur Specific [place] 1.010, Urine Protein 500 H, Urine Glucose (UA) 1000 H, Urine Ketones 5 H, Urine Occult Blood 25 H, Urine Nitrite Negative, Urine Bilirubin Negative, Urine Urobilinogen Normal, Ur Leukocyte Esterase 500 H, Urine RBC 0 SEEN, Urine WBC 25-50 SEEN, Ur Squamous Epith Cells 0-5 SEEN, Urine Bacteria 1+, Urine Mucus 0 SEEN 06/21/23 00:04: WBC 19.1 H, RBC 5.35, Hgb 16.1 H, Hct 50.2 H, MCV 93.8, MCH 30.1, MCHC 32.1, RDW Std Deviation 42.1, RDW Coeff of [place] 12.1, Plt Count 361, MPV 9.3, Immature Gran % (Auto) 0.800, Neut % (Auto) 81.3 H, Lymph % (Auto) 6.6 L, [place] % (Auto) 11.0 H, Eos % (Auto) 0.0, Baso % (Auto) 0.3, Absolute Neuts (auto) 15.5 H, Absolute Lymphs (auto) 1.27, Nucleated RBC % 0, Differential Comment SCANNED, Diff Path Review January, ESR > 130 H, Sodium 130 L, Potassium 4.8, Chloride 94 L, Carbon Dioxide 28.0, Anion Gap 8, BUN 44 H, Creatinine 1.90 H, Est GFR (MDRD) Af Amer 34 L, Est GFR (MDRD) Non-Af 29 L, BUN/Creatinine Ratio 23.2 H, Glucose 190 H, Calcium 9.5, Total Bilirubin 0.70, Direct Bilirubin 0.24, AST 15, ALT 39, Alkaline Phosphatase 121 H, C-React Prot Ext Range 126.00 H, Total Protein 8.8 H, Albumin 3.3, Globulin 5.5 H, Acetaminophen < 2.0 L 06/21/23 00:50: Troponin I High Sens 17 06/21/23 03:51: WBC 16.2 H, RBC 5.23, Hgb 15.8 H, Hct 49.4 H, MCV 94.5, MCH 30.2, MCHC 32.0, RDW Std Deviation 42.8, RDW Coeff of [place] 12.2, Plt Count 347, MPV 9.4, Immature Gran % (Auto) 0.600, Neut % (Auto) 79.4 H, Lymph % (Auto) 8.0 L, [place] % (Auto) 11.8 H, Eos % (Auto) 0.0, Baso % (Auto) 0.2, Absolute Neuts (auto) 12.8 H, Absolute Lymphs (auto) 1.29, Nucleated RBC % 0, Differential Comment SCANNED, Diff Path Review January, Sodium 132 L, Potassium 5.3 H, Chloride 96 L, Carbon Dioxide 27.0, Anion Gap 9, BUN 44 H, Creatinine 1.70 H, Estim Creat Clear Calc 28.75, Est GFR (MDRD) Af Amer 39 L, Est GFR (MDRD) Non-Af 32 L, BUN/Creatinine Ratio 25.9 H, Glucose 232 H, Calcium 8.8, Troponin I High Sens 19 06/21/23 06:57: POC Glucose 199 H Rhythm Strip Rhythm Strip: Sinus Rhythm Rate: 75 Ectopy: None Radiology Impression Chest X-Ray 06/21/23 00:44 IMPRESSION: No radiographic evidence of acute cardiopulmonary disease. Electronically Signed: Emy Gonsalez MD at 1:20 EDT , Assessment & Plan Assessment/Plan (1) Osteoarthritis of left knee: PLAN: 62-year-old female with increasing left knee pain 5 days following an intra-articular cortisone injection. The concern here was raised for septic arthritis. The patient has an elevated white blood cell count with a neutrophil predominance and increased inflammatory markers. They have been diagnosed with a UTI with increased urinary frequency, I think that can explain the mild temp of 98 and WBC, but I do think it is important to rule out a septic joint here given the concerning features. The physical exam although relatively benign and trace effusion, mild warmth, the patient does have more pain with increased white blood cell count. We discussed the pros cons risk benefits go ahead with left knee aspiration and perform that for the patient this morning. This just showed trace joint fluid with red tinge. No obvious white purulent material no foul smell. We will send this off for culture and sensitivity hopefully cell count as well on a stat basis. At this point I think it is reasonable to start antibiotics even though my clinical suspicion is still quite low of a septic arthritis given the aspiration and progression as well as the clinical exam but we will rule this out nonetheless. Left knee aspiration We discussed the pros and cons risks and benefits of going ahead with left knee aspiration. The risks include but are not limited to infection, pain, acute flare reaction, stiffness, bleedin,g damage to surrounding structures, worsening arthritis or damage to the cartilage. Did a timeout with the RN taking care of the patient. Left knee marked. The patient wished to proceed. The superolateral aspect of the knee was prepped with chlorhexidine in the usual sterile fashion. Sterile no touch technique was employed. 5 cc 1% lidocaine was injected into the soft tissue. 5 mins later, used 18 g needle and 20cc syringe, aspirated trace joint fluid blood tinged about 1-2cc. The patient tolerated procedure well. Bandage placed and martha wrap. There is no complications. Standard post procedure care instructions were given. (2) Effusion, left knee:
[2023-06-21] MEDS: Metoprolol(XL)Succ 50 MG Tablet PO (08:38)
[2023-06-21] MEDS: Furosemide 40 MG Tablet PO (08:38)
[2023-06-21] MEDS: Amiodarone 200 MG Tablet PO (08:39)
[2023-06-21 09:12] LABS: Synovial Fld Mononuclear WBC # 0.824 10^3/ul; Synovial Fld Mononuclear WBC % 10.6 %; Synovial Fld Polynuclear WBC # 6.958 10^3/uL; Synovial Fld Polynuclear WBC % 89.4 %
--- NOTE | 2023-06-21 09:43 | PN.ORTHO_ITS ---
Subjective Subjective FU L knee pain and swelling Objective Data Objective Data Vital Signs: Vital Signs Temp Pulse Resp BP Pulse Ox O2 Del Method 99.0 F 80 15 164/91 H 98 Room Air 06/21/23 08:29 06/21/23 08:38 06/21/23 08:29 06/21/23 08:29 06/21/23 08:29 06/21/23 08:29 Oxygen Delivery Method Room Air Weight: 211 lb 3.245 oz Body Mass Index (BMI) 37.4 Intake & Output: Intake and Output for Last 24 Hours 06/19/23 06/20/23 06/21/23 23:59 23:59 23:59 Intake Total 150 / 150 Output Total 400 / 400 Balance -250 / -250 Lab / Micro Data 06/21/23 03:51 06/21/23 03:51 Labs: Laboratory Results - last 24 hr 06/20/23 23:10: Urine Color Yellow, Urine Clarity Clear, Urine pH 7.0, Ur Specific [place] 1.010, Urine Protein 500 H, Urine Glucose (UA) 1000 H, Urine Ketones 5 H, Urine Occult Blood 25 H, Urine Nitrite Negative, Urine Bilirubin Negative, Urine Urobilinogen Normal, Ur Leukocyte Esterase 500 H, Urine RBC 0 SEEN, Urine WBC 25-50 SEEN, Ur Squamous Epith Cells 0-5 SEEN, Urine Bacteria 1+, Urine Mucus 0 SEEN 06/21/23 00:04: WBC 19.1 H, RBC 5.35, Hgb 16.1 H, Hct 50.2 H, MCV 93.8, MCH 30.1, MCHC 32.1, RDW Std Deviation 42.1, RDW Coeff of Patricia 12.1, Plt Count 361, MPV 9.3, Immature Gran % (Auto) 0.800, Neut % (Auto) 81.3 H, Lymph % (Auto) 6.6 L, [place] % (Auto) 11.0 H, Eos % (Auto) 0.0, Baso % (Auto) 0.3, Absolute Neuts (auto) 15.5 H, Absolute Lymphs (auto) 1.27, Nucleated RBC % 0, Differential Comment SCANNED, Diff Path Review January, ESR > 130 H, Sodium 130 L, Potassium 4.8, Chloride 94 L, Carbon Dioxide 28.0, Anion Gap 8, BUN 44 H, Creatinine 1.90 H, Est GFR (MDRD) Af Amer 34 L, Est GFR (MDRD) Non-Af 29 L, BUN/Creatinine Ratio 23.2 H, Glucose 190 H, Calcium 9.5, Total Bilirubin 0.70, Direct Bilirubin 0.24, AST 15, ALT 39, Alkaline Phosphatase 121 H, C-React Prot Ext Range 126.00 H, Total Protein 8.8 H, Albumin 3.3, Globulin 5.5 H, Acetaminophen < 2.0 L 06/21/23 00:50: Troponin I High Sens 17 06/21/23 03:51: WBC 16.2 H, RBC 5.23, Hgb 15.8 H, Hct 49.4 H, MCV 94.5, MCH 30.2, MCHC 32.0, RDW Std Deviation 42.8, RDW Coeff of Patricia 12.2, Plt Count 347, MPV 9.4, Immature Gran % (Auto) 0.600, Neut % (Auto) 79.4 H, Lymph % (Auto) 8.0 L, [place] % (Auto) 11.8 H, Eos % (Auto) 0.0, Baso % (Auto) 0.2, Absolute Neuts (auto) 12.8 H, Absolute Lymphs (auto) 1.29, Nucleated RBC % 0, Differential Comment SCANNED, Diff Path Review January, Sodium 132 L, Potassium 5.3 H, Chloride 96 L, Carbon Dioxide 27.0, Anion Gap 9, BUN 44 H, Creatinine 1.70 H, Estim Creat Clear Calc 28.75, Est GFR (MDRD) Af Amer 39 L, Est GFR (MDRD) Non-Af 32 L, BUN/Creatinine Ratio 25.9 H, Glucose 232 H, Calcium 8.8, Troponin I High Sens 19 06/21/23 06:57: POC Glucose 199 H 06/21/23 08:20: Synovial WBC 77.8200 H, Synovial RBC 0.310 H, Synovial Tot Cell Ct 77.9100 H, Synov Polynuclear WBCs 6.958, Synov Mononuclear WBCs 0.824, Synovial Polynuclear % 89.4, Synovial Mononuclear % 10.6 Radiography Diagnostic Testing: Radiology Impression Chest X-Ray 06/21/23 00:44 IMPRESSION: No radiographic evidence of acute cardiopulmonary disease. Electronically Signed: Emy Gonsalez MD at 1:20 EDT , Rhythm Strip Rhythm Strip: Sinus Rhythm Rate: 75 Ectopy: None Assessment & Plan Assessment/Plan (1) Effusion, left knee: PLAN: 62 F left knee pain, following along, cell count 77k but not enough fluid to run a crystal so gout / pseudogout still in the differential here. Gram stain should be ready in 15 minutes per the lab. Spoke with hospitalist, will start broad spec antibiotics to cover MRSA in case septic joint. Holding eliquis. Traditionally over 50k would be diagnostic for septic joint but new literature puts that into question. Asked to make patient NPO. Will follow up on stat gram stain before making final decision on whether or not to take to the OR for I and D.
[2023-06-21 10:02] LABS: AUTO B FLUID DILUENT BKGD CT WBC <0.1 RBC <0.01 (W<.1,R<.01); Lymph 1 %; Neutrophil 98 % (0-25); Other Cell /Synovial Fluid 1 %
[2023-06-21 10:03] LABS: Appearance /Synovial Fluid Cloudy (CLEAR); Color / Synovial Fluid Red (Pale Yellow); Viscosity / Synovial Fluid Liquid (HIGH)
[2023-06-21 10:05] LABS: Body Fluid QC Type(s) BF1Q
--- NOTE | 2023-06-21 10:12 | PCM.PN.ORT ---
Objective Data Objective Data Vital Signs: Vital Signs Temp Pulse Resp BP Pulse Ox O2 Del Method 99.0 F 80 15 164/91 H 98 Room Air 06/21/23 08:29 06/21/23 08:38 06/21/23 08:29 06/21/23 08:29 06/21/23 08:29 06/21/23 08:29 Oxygen Delivery Method Room Air Weight: 211 lb 3.245 oz Body Mass Index (BMI) 37.4 Intake & Output: Intake and Output for Last 24 Hours 06/19/23 06/20/23 06/21/23 23:59 23:59 23:59 Intake Total 150 / 150 Output Total 400 / 400 Balance -250 / -250 Lab / Micro Data 06/21/23 03:51 06/21/23 03:51 Labs: Laboratory Results - last 24 hr 06/20/23 23:10: Urine Color Yellow, Urine Clarity Clear, Urine pH 7.0, Ur Specific [place] 1.010, Urine Protein 500 H, Urine Glucose (UA) 1000 H, Urine Ketones 5 H, Urine Occult Blood 25 H, Urine Nitrite Negative, Urine Bilirubin Negative, Urine Urobilinogen Normal, Ur Leukocyte Esterase 500 H, Urine RBC 0 SEEN, Urine WBC 25-50 SEEN, Ur Squamous Epith Cells 0-5 SEEN, Urine Bacteria 1+, Urine Mucus 0 SEEN 06/21/23 00:04: WBC 19.1 H, RBC 5.35, Hgb 16.1 H, Hct 50.2 H, MCV 93.8, MCH 30.1, MCHC 32.1, RDW Std Deviation 42.1, RDW Coeff of Patricia 12.1, Plt Count 361, MPV 9.3, Immature Gran % (Auto) 0.800, Neut % (Auto) 81.3 H, Lymph % (Auto) 6.6 L, [place] % (Auto) 11.0 H, Eos % (Auto) 0.0, Baso % (Auto) 0.3, Absolute Neuts (auto) 15.5 H, Absolute Lymphs (auto) 1.27, Nucleated RBC % 0, Differential Comment SCANNED, Diff Path Review January, ESR > 130 H, Sodium 130 L, Potassium 4.8, Chloride 94 L, Carbon Dioxide 28.0, Anion Gap 8, BUN 44 H, Creatinine 1.90 H, Est GFR (MDRD) Af Amer 34 L, Est GFR (MDRD) Non-Af 29 L, BUN/Creatinine Ratio 23.2 H, Glucose 190 H, Calcium 9.5, Total Bilirubin 0.70, Direct Bilirubin 0.24, AST 15, ALT 39, Alkaline Phosphatase 121 H, C-React Prot Ext Range 126.00 H, Total Protein 8.8 H, Albumin 3.3, Globulin 5.5 H, Acetaminophen < 2.0 L 06/21/23 00:50: Troponin I High Sens 17 06/21/23 03:51: WBC 16.2 H, RBC 5.23, Hgb 15.8 H, Hct 49.4 H, MCV 94.5, MCH 30.2, MCHC 32.0, RDW Std Deviation 42.8, RDW Coeff of Patricia 12.2, Plt Count 347, MPV 9.4, Immature Gran % (Auto) 0.600, Neut % (Auto) 79.4 H, Lymph % (Auto) 8.0 L, [place] % (Auto) 11.8 H, Eos % (Auto) 0.0, Baso % (Auto) 0.2, Absolute Neuts (auto) 12.8 H, Absolute Lymphs (auto) 1.29, Nucleated RBC % 0, Differential Comment SCANNED, Diff Path Review May foll, Sodium 132 L, Potassium 5.3 H, Chloride 96 L, Carbon Dioxide 27.0, Anion Gap 9, BUN 44 H, Creatinine 1.70 H, Estim Creat Clear Calc 28.75, Est GFR (MDRD) Af Amer 39 L, Est GFR (MDRD) Non-Af 32 L, BUN/Creatinine Ratio 25.9 H, Glucose 232 H, Calcium 8.8, Troponin I High Sens 19 06/21/23 06:57: POC Glucose 199 H 06/21/23 08:20: Synovial Source TNP, Synovial Color Red, Synovial Appearance Cloudy, Synovial Viscosity Liquid, Synovial WBC 77.8200 H, Synovial RBC 0.310 H, Synovial Tot Cell Ct 77.9100 H, Synov Polynuclear WBCs 6.958, Synov Mononuclear WBCs 0.824, Synovial Neutrophils 98 H, Synovial Lymphocytes 1, Synovial Other Cells 1, Synovial Polynuclear % 89.4, Synovial Mononuclear % 10.6, Synovial Path Comment May follow Micro: Microbiology 06/21/23 08:20 Fluid - Synovial (joint) Gram Stain - Final Radiography Diagnostic Testing: Radiology Impression Chest X-Ray 06/21/23 00:44 IMPRESSION: No radiographic evidence of acute cardiopulmonary disease. Electronically Signed: Emy Gonsalez MD at 1:20 EDT , Rhythm Strip Rhythm Strip: Sinus Rhythm Rate: 75 Ectopy: None Assessment & Plan Assessment/Plan (1) Effusion, left knee: PLAN: 62 F L knee pain increasing, swelling, warmth, cell count 77k unable to test for crystals,crp over 100 and rare gram positive cocci in clusters on stat gram stain, at this point it would be indicated for emergent I and D. I have let the nurse know to keep the patient NPO, made the OR aware. Next available time is today at noon and I will come over to book the patient for L knee scope I and D, take additional cultures then.
--- NOTE | 2023-06-21 10:31 | CASEMGMT ---
Insurance review for hospitals In-network with?[facility] insurance if transfer is recommended is as follows:. [facility], [place], [facility], [facility], [facility], [facility], [facility]), [facility] and . Delores Villafuerte, Discharge Planning Asst.
--- NOTE | 2023-06-21 10:50 | CASEMGMT ---
RN CM Face to Face with patient for initial transition planning/care coordination assessment. RN CM introduced self and role at [facility]. Patient lying in bed, alert and oriented, at bedside. Patient willing to participate in assessment and is able to answer all questions appropriately. Care providers, pharmacy, and demographics verified. Patient wishes to discharge home. Discussed possibility of IV ATBs and HHC at discharge. CM to provide list to patient for HHC and infusion companies. Patient states she has no further needs or concerns at this time. CM to follow for discharge planning needs that may arise. PCP: Vaibhav Specialists: SCOTTIE, softlines supervisor; , coil finisher Preferred Pharmacy: [facility] Insurance: [employer] Prescription Benefit: yes Living Will/HPOA: yes, Dominic Gardiner LNOK: Living Arrangements: Patient lives with in a 2 story home with stair lift to second floor. Patient states she is independent at home. Transportation: self, DME/HHC: Patient has shower chair, BSC, cane, grab bars, walker, rollator, wheelchair, glucometer. Patient has been to [facility] in the past. Patient has had HHC in the past but could not recall agency. Disposition Plan: Patient to discharge home with family support and follow-up plans in place. Will monitor for HHC and IV ATBs pending course of treatment. Radha DELACRUZ, RN, CM
--- NOTE | 2023-06-21 11:03 | CASEMGMT ---
Discharge Planning A list of HH providers including quality and resource use data and consistent with the patient's preferred geographic region, medical needs, and insurance network was created in [facility] Guide. This list was provided to the RN CM. Delores Villafuerte, Discharge Planning Asst.
[2023-06-21] MEDS: Lactated Ringers 1,000 ML 15 ML IV ×2 (11:15→14:02)
--- NOTE | 2023-06-21 11:48 | HP.PCM_ITS ---
HPI - General General Date of Admission: 06/21/23 Chief Complaint: Left knee pain HPI Narrative MARIA OTT, is a 62 F who presents for possible left septic knee. [facility] Medical History (Updated 06/21/23 @ 08:36 by Anatoliy Moreno MD) Atrial fibrillation, new onset Atypical chest pain Cardiomyopathy Chest pain CHF (congestive heart failure) CVA (cerebral vascular accident) Effusion, left knee Finger lesion HLD (hyperlipidemia) Hypertension Hypertensive urgency Menopausal and female climacteric states Migraine headache Obesity Osteoarthritis of left knee Type II diabetes mellitus Home Medications duloxetine 60 mg capsule,delayed release 120 mg PO QHS mental health 11/08/21 [History Last Taken Unknown] acetaminophen 325 mg tablet (Tylenol) 650 mg (2 x 325 mg) PO Q4H PRN PRN Fever, pain 1-06/21 #0 tabs 09/17/22 [Rx Last Taken Unknown] ferrous sulfate 325 mg (65 mg iron) tablet (FeroSul) 325 mg PO DAILY@1200 #0 tabs 09/17/22 [Rx Last Taken Unknown] potassium chloride 10 mEq capsule,extended release 10 meq PO DAILY supplement #30 caps 09/17/22 [Rx Last Taken Unknown] apixaban 5 mg tablet (Eliquis) 5 mg PO BID #180 tabs 11/04/22 [Rx Last Taken Unknown] atorvastatin 40 mg tablet 40 mg PO QHS cholesterol #90 tabs 11/04/22 [Rx Last Taken Unknown] dapagliflozin propanediol 10 mg tablet (Farxiga) 10 mg PO DAILY #90 tabs 02/09/23 [Rx Last Taken Unknown] amiodarone 200 mg tablet 200 mg PO DAILY 05/09/23 [History Last Taken Unknown] furosemide 40 mg tablet 40 mg PO DAILY 05/09/23 [History Last Taken Unknown] insulin lispro 100 unit/mL subcutaneous pen (Humalog KwikPen (U-100) Insulin) 20 unit (0.2 mL) subcut TID diabetes #54 mL 05/09/23 [Rx Last Taken Unknown] magnesium 250 mg tablet 500 mg PO DAILY supplement 05/09/23 [History Last Taken Unknown] mecobalamin (vitamin B12) 5,000 mcg disintegrating tablet 5,000 mcg PO DAILY supplement 05/09/23 [History Last Taken Unknown] trazodone 100 mg tablet 100 mg PO DAILY insomnia 05/09/23 [History Last Taken Unknown] dulaglutide 0.75 mg/0.5 mL subcutaneous pen injector (Trulicity) 0.75 mg (0.5 mL) subcut QWEEK #2 mL 05/18/23 [Rx Last Taken Unknown] metoprolol succinate 50 mg tablet,extended release 24 hr 50 mg PO DAILY #90 tabs 06/07/23 [Rx Last Taken Unknown] methylprednisolone 4 mg tablets in a dose pack (Medrol (Bird)) See Rx Instructions PO PER PKG DIR steroid for knee #21 tabs 06/20/23 [Rx Last Taken 06/20/23] insulin glargine 100 unit/mL (3 mL) subcutaneous pen (Lantus Solostar U-100 In sulin) 12 unit subcut QHS diabetes 06/21/23 [History Last Taken Unknown] nystatin 100,000 unit/gram topical powder (Nyamyc) 1 applic topical BID PRN redness 06/21/23 [History Last Taken Unknown] Allergy/AdvReac Type Severity Reaction Status Date / Time ampicillin Allergy Intermediate Hives Verified 06/21/23 04:52 levofloxacin [From Levaquin] Allergy Other Verified 06/20/23 22:57 Penicillins Allergy Hives Verified 06/20/23 22:57 ampicillin Allergy Intermediate Hives Uncoded 06/20/23 13:04 Family History Mother Diabetes Psoriatic arthritis Rheumatoid arthritis Father COPD (chronic obstructive pulmonary disease) With concurrent tobacco use history. Myocardial infarction Heart disease Surgical History History of foot surgery Social History adopted: No household members: spouse housing: house number of children: 0 current occupational status: employed current occupation: works at [employer] pets and animals: Yes (kittens, dogs, horses) Smoking Status: Never smoker alcohol intake: never substance use type: does not use caffeine: Yes (occasionally) Type: carbonated beverages and coffee Vital Signs Vital Signs Vital Signs: 06/20/23 22:55 06/21/23 01:00 06/21/23 01:37 Temperature 98.0 F Temperature Source Temporal Pulse Rate 80 80 84 Pulse Strength Respiratory Rate 18 17 16 Respiratory Effort Respiratory Depth Respiratory Pattern Blood Pressure 167/90 H 182/99 H 167/99 H Blood Pressure Mean 115 125 121 Blood Pressure Source Blood Pressure Position Blood Pressure Location Pulse Ox 99 92 Oxygen Delivery Method Room Air Room Air 06/21/23 00:45 06/21/23 02:00 06/21/23 02:32 Temperature 98.2 F 98.2 F Temperature Source Oral Oral Pulse Rate 80 80 Pulse Strength Respiratory Rate 16 16 Respiratory Effort Respiratory Depth Respiratory Pattern Blood Pressure 168/98 H 168/98 H Blood Pressure Mean 121 121 Blood Pressure Source Blood Pressure Position Blood Pressure Location Pulse Ox 98 98 Oxygen Delivery Method Room Air 06/21/23 03:43 06/21/23 03:40 06/21/23 03:43 Temperature 99.4 F H 99.4 F H Temperature Source Oral Temporal Pulse Rate 80 80 Pulse Strength Respiratory Rate 17 17 Respiratory Effort Normal Non-Labored Respiratory Depth Normal Respiratory Pattern Normal Blood Pressure 173/68 H 173/68 H Blood Pressure Mean 103 103 Blood Pressure Source Monitor Blood Pressure Position Semi-Fowlers Blood Pressure Location Left Arm Pulse Ox 97 97 Oxygen Delivery Method Room Air Room Air Room Air 06/21/23 07:26 06/21/23 08:29 06/21/23 08:38 Temperature 99.0 F Temperature Source Oral Pulse Rate 80 80 Pulse Strength Respiratory Rate 15 Respiratory Effort Respiratory Depth Respiratory Pattern Blood Pressure 164/91 H Blood Pressure Mean 115 Blood Pressure Source Blood Pressure Position Blood Pressure Location Pulse Ox 96 98 Oxygen Delivery Method Room Air Room Air 06/21/23 10:00 06/21/23 10:00 Temperature Temperature Source Pulse Rate Pulse Strength Normal (2+) Respiratory Rate Respiratory Effort Normal Respiratory Depth Respiratory Pattern Blood Pressure Blood Pressure Mean Blood Pressure Source Blood Pressure Position Blood Pressure Location Pulse Ox Oxygen Delivery Method Room Air Weight Weight: 211 lb 3.245 oz Body Mass Index (BMI) 37.4 Results Lab / Micro Data 06/21/23 03:51 06/21/23 03:51 Labs: Laboratory Results - last 24 hr 06/20/23 23:10: Urine Color Yellow, Urine Clarity Clear, Urine pH 7.0, Ur Specific [place] 1.010, Urine Protein 500 H, Urine Glucose (UA) 1000 H, Urine Ketones 5 H, Urine Occult Blood 25 H, Urine Nitrite Negative, Urine Bilirubin Negative, Urine Urobilinogen Normal, Ur Leukocyte Esterase 500 H, Urine RBC 0 SEEN, Urine WBC 25-50 SEEN, Ur Squamous Epith Cells 0-5 SEEN, Urine Bacteria 1+, Urine Mucus 0 SEEN 06/21/23 00:04: WBC 19.1 H, RBC 5.35, Hgb 16.1 H, Hct 50.2 H, MCV 93.8, MCH 30.1, MCHC 32.1, RDW Std Deviation 42.1, RDW Coeff of Patricia 12.1, Plt Count 361, MPV 9.3, Immature Gran % (Auto) 0.800, Neut % (Auto) 81.3 H, Lymph % (Auto) 6.6 L, [place] % (Auto) 11.0 H, Eos % (Auto) 0.0, Baso % (Auto) 0.3, Absolute Neuts (auto) 15.5 H, Absolute Lymphs (auto) 1.27, Nucleated RBC % 0, Differential Comment SCANNED, Diff Path Review January, ESR > 130 H, Sodium 130 L, Potassium 4.8, Chloride 94 L, Carbon Dioxide 28.0, Anion Gap 8, BUN 44 H, Creatinine 1.90 H, Est GFR (MDRD) Af Amer 34 L, Est GFR (MDRD) Non-Af 29 L, BUN/Creatinine Ratio 23.2 H, Glucose 190 H, Calcium 9.5, Total Bilirubin 0.70, Direct Bilirubin 0.24, AST 15, ALT 39, Alkaline Phosphatase 121 H, C-React Prot Ext Range 126.00 H, Total Protein 8.8 H, Albumin 3.3, Globulin 5.5 H, Acetaminophen < 2.0 L 06/21/23 00:50: Troponin I High Sens 17 06/21/23 03:51: WBC 16.2 H, RBC 5.23, Hgb 15.8 H, Hct 49.4 H, MCV 94.5, MCH 30.2, MCHC 32.0, RDW Std Deviation 42.8, RDW Coeff of Patricia 12.2, Plt Count 347, MPV 9.4, Immature Gran % (Auto) 0.600, Neut % (Auto) 79.4 H, Lymph % (Auto) 8.0 L, [place] % (Auto) 11.8 H, Eos % (Auto) 0.0, Baso % (Auto) 0.2, Absolute Neuts (auto) 12.8 H, Absolute Lymphs (auto) 1.29, Nucleated RBC % 0, Differential Comment SCANNED, Diff Path Review May foll, Sodium 132 L, Potassium 5.3 H, Chloride 96 L, Carbon Dioxide 27.0, Anion Gap 9, BUN 44 H, Creatinine 1.70 H, Estim Creat Clear Calc 28.75, Est GFR (MDRD) Af Amer 39 L, Est GFR (MDRD) Non-Af 32 L, BUN/Creatinine Ratio 25.9 H, Glucose 232 H, Calcium 8.8, Troponin I High Sens 19 06/21/23 06:57: POC Glucose 199 H 06/21/23 08:20: Synovial Source TNP, Synovial Color Red, Synovial Appearance Cloudy, Synovial Viscosity Liquid, Synovial WBC 77.8200 H, Synovial RBC 0.310 H, Synovial Tot Cell Ct 77.9100 H, Synov Polynuclear WBCs 6.958, Synov Mononuclear WBCs 0.824, Synovial Neutrophils 98 H, Synovial Lymphocytes 1, Synovial Other Cells 1, Synovial Polynuclear % 89.4, Synovial Mononuclear % 10.6, Synovial Path Comment May follow Micro: Microbiology 06/21/23 08:20 Fluid - Synovial (joint) Gram Stain - Final Rhythm Strip Rhythm Strip: Sinus Rhythm Rate: 75 Ectopy: None Radiology Impression Chest X-Ray 06/21/23 00:44 IMPRESSION: No radiographic evidence of acute cardiopulmonary disease. Electronically Signed: Emy Gonsalez MD at 1:20 EDT Reading Location ID and State: [address] [place] [address] Tel , Service support , Assessment & Plan Assessment/Plan (1) Effusion, left knee: PLAN: 62-year-old female with left knee swelling and more pain recently increased plus cell count >50k and positive Gram stain I have gone ahead and discussed with the patient and nursing staff about going ahead with emergent left knee irrigation and debridement arthroscopically. I think given the evidence here that would be the safest course of action to prevent cartilage damage, although surgery does have its own set of unique risks. I have marked the left knee no changes to history and physical exam. Patient wants to go ahead with surgery understands the risks and we will proceed with the case anesthesia also aware of the patient to be at this morning that the case is emergent. I switched the antibiotics to linezolid and discontinue the other anti biotics which were not yet given and asked the nurse to send the back to the pharmacy. Linezolid should offer good broad-spectrum coverage immediate therapeutic levels (plan to give after intra op cultures) and I also spoke with the hospitalist Dr. Olson on the phone and asked them to get infectious disease involved today on the case. They understood no further questions or concerns. Pros and cons risks and benefits were discussed with the patient including but not limited to infection, pain, stiffness, bleeding, damage to surrounding structures, neurovascular injury, recurrence or retear, failure or wear of hardware or fixation, instability, fracture, deep vein thrombosis and pulmonary embolism, anesthetic risks, , patient dissatisfaction, need for further surgery and other risks. Patient understood and wished to proceed with surgery, and signed the informed consent documentation.
--- NOTE | 2023-06-21 11:54 | PN.HOSP_ITS ---
Reason for Visit Reason for Visit: Left knee pain/swelling Subjective Subjective Ms. Gardiner is a 62-year-old female who sustained a knee injury about a week ago af ter she twisted it and she came to the emergency department she was treated and discharged with a referral to orthopedic surgery. She saw orthopedic surgery on 06/16/2023 and received a Kenalog shot in her left knee at the orthopedic surgeons office. She followed up with Dr. Moreno yesterday on the day of presentation due to increased pain reporting she could hardly walk or move her left knee. She was evaluated and denied any fevers, chills, sweats or flulike symptoms and had been using ice. She is on Eliquis at baseline. At that time they felt it was an acute flare reaction and placed her on a methylprednisolone pack. She unfortunately had ongoing pain and came to the emergency department last evening. At presentation she was found to have a significant leukocytosis with a white count of 19.1 and a left shift showing a 81.3% neutrophilia. Her ESR was greater than 130. Her chemistry showed mild hyponatremia with a sodium of 130 and her serum creatinine was mildly elevated from her baseline at 1.90 (baseline 1.4-1.75). Her glucose was 190 and her CRP was 126. She also comp lained of some chest pain after she received a dose of morphine the emergency department and her troponins were cycled and negative and her EKG was unremarkable. Her chest pain has since resolved and she has had no further episodes. She was seen by orthopedic surgery this morning and an arthrocentesis was performed. We started broad-spectrum antibiotics with cefepime due to penicillin allergy and vancomycin after the arthrocentesis was performed. Patient is having ongoing pain in that knee and we are awaiting studies to see if she needs to proceed with surgical intervention or not. Surgery has asked me to make her n.p.o. Objective Data Objective Data Vital Signs: Vital Signs Temp Pulse Resp BP Pulse Ox O2 Del Method 99.0 F 80 15 164/91 H 98 Room Air 06/21/23 08:29 06/21/23 08:38 06/21/23 08:29 06/21/23 08:29 06/21/23 08:29 06/21/23 10:00 Oxygen Delivery Method Room Air Weight: 95.8 kg Body Mass Index (BMI) 37.4 Intake & Output: Intake and Output for Last 24 Hours 06/19/23 06/20/23 06/21/23 23:59 23:59 23:59 Intake Total 150 / 150 Output Total 400 / 400 Balance -250 / -250 Lab / Micro Data 06/21/23 03:51 06/21/23 03:51 Labs: Laboratory Results - last 24 hr 06/20/23 23:10: Urine Color Yellow, Urine Clarity Clear, Urine pH 7.0, Ur Specific [place] 1.010, Urine Protein 500 H, Urine Glucose (UA) 1000 H, Urine Ketones 5 H, Urine Occult Blood 25 H, Urine Nitrite Negative, Urine Bilirubin Negative, Urine Urobilinogen Normal, Ur Leukocyte Esterase 500 H, Urine RBC 0 SEEN, Urine WBC 25-50 SEEN, Ur Squamous Epith Cells 0-5 SEEN, Urine Bacteria 1+, Urine Mucus 0 SEEN 06/21/23 00:04: WBC 19.1 H, RBC 5.35, Hgb 16.1 H, Hct 50.2 H, MCV 93.8, MCH 30.1, MCHC 32.1, RDW Std Deviation 42.1, RDW Coeff of Patricia 12.1, Plt Count 361, MPV 9.3, Immature Gran % (Auto) 0.800, Neut % (Auto) 81.3 H, Lymph % (Auto) 6.6 L, [place] % (Auto) 11.0 H, Eos % (Auto) 0.0, Baso % (Auto) 0.3, Absolute Neuts (auto) 15.5 H, Absolute Lymphs (auto) 1.27, Nucleated RBC % 0, Differential Comment SCANNED, Diff Path Review January, ESR > 130 H, Sodium 130 L, Potassium 4.8, Chloride 94 L, Carbon Dioxide 28.0, Anion Gap 8, BUN 44 H, Creatinine 1.90 H, Est GFR (MDRD) Af Amer 34 L, Est GFR (MDRD) Non-Af 29 L, BUN/Creatinine Ratio 23.2 H, Glucose 190 H, Calcium 9.5, Total Bilirubin 0.70, Direct Bilirubin 0.24, AST 15, ALT 39, Alkaline Phosphatase 121 H, C-React Prot Ext Range 126.00 H, Total Protein 8.8 H, Albumin 3.3, Globulin 5.5 H, Acetaminophen < 2.0 L 06/21/23 00:50: Troponin I High Sens 17 06/21/23 03:51: WBC 16.2 H, RBC 5.23, Hgb 15.8 H, Hct 49.4 H, MCV 94.5, MCH 30.2, MCHC 32.0, RDW Std Deviation 42.8, RDW Coeff of Patricia 12.2, Plt Count 347, MPV 9.4, Immature Gran % (Auto) 0.600, Neut % (Auto) 79.4 H, Lymph % (Auto) 8.0 L, [place] % (Auto) 11.8 H, Eos % (Auto) 0.0, Baso % (Auto) 0.2, Absolute Neuts (auto) 12.8 H, Absolute Lymphs (auto) 1.29, Nucleated RBC % 0, Differential Comment SCANNED, Diff Path Review January foll, Sodium 132 L, Potassium 5.3 H, Chloride 96 L, Carbon Dioxide 27.0, Anion Gap 9, BUN 44 H, Creatinine 1.70 H, Estim Creat Clear Calc 28.75, Est GFR (MDRD) Af Amer 39 L, Est GFR (MDRD) Non-Af 32 L, BUN/Creatinine Ratio 25.9 H, Glucose 232 H, Calcium 8.8, Troponin I High Sens 19 06/21/23 06:57: POC Glucose 199 H 06/21/23 08:20: Synovial Source TNP, Synovial Color Red, Synovial Appearance Alivia udy, Synovial Viscosity Liquid, Synovial WBC 77.8200 H, Synovial RBC 0.310 H, Synovial Tot Cell Ct 77.9100 H, Synov Polynuclear WBCs 6.958, Synov Mononuclear WBCs 0.824, Synovial Neutrophils 98 H, Synovial Lymphocytes 1, Synovial Other Cells 1, Synovial Polynuclear % 89.4, Synovial Mononuclear % 10.6, Synovial Path Comment May follow Micro: Microbiology 06/21/23 08:20 Fluid - Synovial (joint) Gram Stain - Final Radiography Diagnostic Testing: Radiology Impression Chest X-Ray 06/21/23 00:44 IMPRESSION: No radiographic evidence of acute cardiopulmonary disease. Electronically Signed: Emy Gonsalez MD at 1:20 EDT Reading Location ID and State: [facility] / [place] Tel , Service support , Rhythm Strip Rhythm Strip: Sinus Rhythm Rate: 75 Ectopy: None Physical Exam Const alert, oriented x3, no apparent distress and well nourished Constitutional Narrative: Obese, upper middle-aged, white female, sitting up in bed, at bedside, patient appears comfortable currently and nontoxic HEENT head/scalp atraumatic and moist oral mucous membranes HEENT Narrative: Mallampati 3, no thrush Head and Scalp: normocephalic Resp normal respiratory effort, no retractions and no use of accessory muscles Cardio S1 normal heart sound, S2 normal heart sound, no murmurs, no rub, no gallops and no clicks Cardio Narrative: Rate controlled irregular irregular rhythm GI normal to inspection, nondistended, normoactive bowel sounds, soft to palpation and non-tender Extremity Negative for full ROM Extremity Narrative: Left knee with Kishan bandage in place but effusion appears to be present. Tender with active and passive range of motion, no significant increase tissue temperature, no significant edema in lower extremities, no cyanosis or clubbing Neuro oriented x3, moves all extremities and no focal motor deficits Neuro Narrative: Decreased ability to move left knee due to pain Speech: speech normal Psych affect normal Psych Narrative: Very pleasant, interacts appropriately Assessment & Plan Assessment/Plan (1) Septic joint of left knee joint: (2) Chest pain: QUALIFIERS: Chest pain type: unspecified Qualified Code(s): R07.9 - Chest pain, unspecified (3) UTI (urinary tract infection): QUALIFIERS: Urinary tract infection type: acute cystitis Hematuria presence: without hematuria Qualified Code(s): N30.00 - Acute cystitis without hematuria (4) Leukocytosis: (5) Hyperkalemia: PLAN: Plan Septic joint left knee -Arthrocentesis done this morning -Significantly elevated cell count and Gram stain is showing gram-positive cocci in clusters -Continue cefepime and add vancomycin per discussion with infectious disease -Continue to hold Eliquis until okay to restart per orthopedic surgery -Continue as needed pain medication -As needed medication for bowel regimen -Weightbearing and therapy per orthopedic surgery recommendations -Infectious disease consultation pending--> discussed with Dr. Oliveros and he would like her on vancomycin to cover possible Staph aureus as well as Cefepime for now -Blood cultures are pending Leukocytosis -Likely related the above -Antibiotics as no -Await cultures Urinary tract infection -Patient with urinary frequency that was atypical for her but no dysuria -UA is consistent with infection -Cultures pending -Continue IV antibiotics as noted above and await cultures and sensitivities Hyperkalemia -Patient is not on any potassium supplementation currently as her home medication was held and there is no documentation that this is hemolyzed -Renal function is at her baseline -Repeat BMP today at 1300 DM-2 -Patient is on Farxiga at baseline we will substitute Jardiance while hospitalized -Continue home insulin 12 units nightly -Once on p.o. diet after surgery restart home log with meals 20 units -SSI -Accu-Cheks as ordered -Check hemoglobin A1c Persistent atrial fibrillation -Continue home amiodarone -Restart home apixaban when okay per orthopedic surgery -Continue home metoprolol CKD stage IIIb -Baseline serum creatinine appears to be between 1.4 and 1.65 -Current serum creatinine 1.7 -We will continue home diuresis but monitor closely -Suspect baseline renal dysfunction is related to diabetic nephropathy Hyponatremia -Mild and appears to be somewhat chronic -Continue home Lasix -Trending up -Continue to monitor Hyperlipidemia -Continue home atorvastatin Insomnia -Continue home trazodone Obesity -BMI 37.4 -Would benefit from weight loss -Complicates treatment, prognosis, outcomes DVT prophylaxis -SCDs for now -We will restart Eliquis when okay with orthopedic surgery CODE STATUS -Full code
[2023-06-21] MEDS: Linezolid 600 MG 600 MG/300 ML BAG 200 MG IV (12:25)
[2023-06-21] MEDS: Bupivacaine 0.25% 30 ML Vial (12:30)
[2023-06-21] MEDS: Epinephrine (1 mg/ml) 1 MG/ML VIAL (12:30)
--- NOTE | 2023-06-21 12:47 | PCM.OPRPT ---
Problems Associated Problem List Diagnoses (1) Effusion, left knee: (2) Septic joint of left knee joint: Report of Operation Date of Procedure: 06/21/23 Pre-Operative Diagnosis: L knee effusion, possible septic joint Post-Operative Diagnosis: same Surgery/Procedure Performed:: L knee arthroscopic I and D, cultures Surgeon: Anatoliy Moreno Type of Anesthesia: General and Local Anesthesiologist: Rashard Jimenez Estimated Blood Loss (mL): 100 Description of Procedure: Patient brought to the operating room theater. Placed supine on the table. Tourniquet applied to the left thigh appropriately padded. Stress positioner to the patient's left side. General anesthesia induced. All bony prominences padded. SCD on the nonoperative leg. Antibiotics held until after the cultures. Limb prepped and draped in the usual sterile fashion with chlorhexidine-based prep solution allowing over 3 minutes drying time prior to draping. Preoperative timeout performed to confirm the site the patient and the surgery. Limb elevated tourniquet inflated to 250 mmHg. I used a standard anterolateral approach with an 18-gauge needle to do an aspiration of the knee again. I had to move this around multiple times and really milk the knee to get any sort of fluid eventually I did get 15 cc of medium light red-colored fluid with some white small amount of flecks. Sent this for culture and sensitivity Gram stain crystals cell count and glucose in 2 separate tubes as well as sending samples and swabs. I then did a full diagnostic arthroscopy using anterolateral and anteromedial portals. Patellofemoral joint appeared normal there is extensive synovitis especially anteriorly that I debrided to remove that. I thoroughly irrigated the knee with 6 L of normal saline. Remove the ligamentum mucosum. To use the ablator instrument to try to achieve hemostasis patient did have some bleeding from the anterolateral portal though patient is on blood thinners. Again I did quite a bit of synovectomy from the anterior intra articular aspect of the knee as well as the inside the medial and lateral compartments and underneath the meniscus... both meniscus were intact there was inner free age fraying on both sides debrided, as well as grade 1 changes on the medial and lateral side of the tibiofemoral compartments. ACL and PCL appeared normal and intact. PF joint normal, mild type 1 changes though. Gutters entered and irrigated, no loose bodies. Arthroscopy pictures taken and saved in the system throughout the case. Case terminated tourniquet let down. Portals closed with 3-0 Monocryl sutures. Steri-Strips Adaptic 4 x 4 gauze ABD dressings and Kishan wrapped firmly wrapped as there was some bleeding from the anterolateral portal try to cauterize this but was likely from the synovectomy. In addition I used 15 cc of quarter percent plain local anesthetic around the portals. Patient woken up from the general anesthetic transferred off the operating table and taken to postanesthetic care unit in stable condition. All sponge needle instrument counts were correct no complications. Patient was given the linezolid IV dose after the cultures were sent and I also asked the hospitalist to consult infectious disease today for full determination of length and type. cpt [id number] Complications none Admit VTE Documentation VTE Present on Admission: No VTE Mechan Device Prophylaxis: SCD's VTE Pharm Prophylaxis ordered?: No Reason prophylaxis not ordered:: Treatment Not Indicated Procedures Musculoskeletal [id number]: Other Procedure See Report
[2023-06-21 13:21] LABS: Hemoglobin A1c 7.4 % (3.8-5.6)
--- NOTE | 2023-06-21 13:45 | CASEMGMT ---
Discharge Planning A list of HH and Infusion?providers including quality and resource use data and consistent with the patient's preferred geographic region, medical needs, and insurance network were printed and provided from the [employer] Guide. Delores Villafuerte, Discharge Planning Asst.
[2023-06-21 13:50] LABS: Bedside Glucose 310 mg/dL (74-106)
[2023-06-21 14:01] LABS: Pathologist Comment May follow
[2023-06-21 14:02] LABS: AUTO B FLUID DILUENT BKGD CT WBC <0.1 RBC <0.01 (W<.1,R<.01); Appearance /Synovial Fluid Purulent (CLEAR); CRYSTALS, BODY FLUID NO CRYSTALS SEEN; Color / Synovial Fluid Red (Pale Yellow); RBC /Synovial Fluid 0.133 10^6/uL (0); Source- Body Fluid SYNOVIAL; Viscosity / Synovial Fluid Mod. Viscous (HIGH)
[2023-06-21 14:03] LABS: Synovial Fld Mononuclear WBC # 5.037 10^3/ul; Synovial Fld Mononuclear WBC % 8.2 %; Synovial Fld Polynuclear WBC # 5.037 10^3/uL; Synovial Fld Polynuclear WBC % 91.8 %
[2023-06-21 14:07] LABS: CRYSTALS, BODY FLUID NO CRYSTALS SEEN; Source- Body Fluid SYNOVIAL
[2023-06-21 14:08] LABS: Body Fluid QC Type(s) BF2Q
--- NOTE | 2023-06-21 14:19 | PN.HOSP_ITS ---
Reason for Visit Reason for Visit: Diagnoses Elevated white blood cell count, unspecified (06/21/23) Type 2 diabetes mellitus with hyperglycemia (06/21/23) Hyperkalemia (06/21/23) Permanent atrial fibrillation (06/21/23) Chronic systolic (congestive) heart failure (06/21/23) Arthritis due to other bacteria, left knee (06/21/23) Pyogenic arthritis, unspecified (06/21/23) Unilateral primary osteoarthritis, left knee (06/21/23) Effusion, left knee (06/21/23) Acute cystitis without hematuria (06/21/23) Chest pain, unspecified (06/21/23) penitentiary (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 of insulin (06/21/23) Objective Data Objective Data Vital Signs: Vital Signs Temp Pulse Resp BP Pulse Ox O2 Del Method O2 Flow Rate 97.3 F L 97 18 140/81 H 97 Nasal Cannula 2 06/21/23 13:04 06/21/23 14:00 06/21/23 14:00 06/21/23 14:00 06/21/23 14:00 06/21/23 14:00 06/21/23 14:00 Oxygen Flow Rate (L/min) 2 Oxygen Delivery Method Nasal Cannula Weight: 95.8 kg Body Mass Index (BMI) 37.4 Intake & Output: Intake and Output for Last 24 Hours 06/19/23 06/20/23 06/21/23 23:59 23:59 23:59 Intake Total 1450 / 1450 Output Total 400 / 400 Balance 1050 / 1050 Lab / Micro Data 06/21/23 03:51 06/21/23 03:51 Labs: Laboratory Results - last 24 hr 06/20/23 23:10: Urine Color Yellow, Urine Clarity Clear, Urine pH 7.0, Ur Specific [place] 1.010, Urine Protein 500 H, Urine Glucose (UA) 1000 H, Urine Ketones 5 H, Urine Occult Blood 25 H, Urine Nitrite Negative, Urine Bilirubin Negative, Urine Urobilinogen Normal, Ur Leukocyte Esterase 500 H, Urine RBC 0 SEEN, Urine WBC 25-50 SEEN, Ur Squamous Epith Cells 0-5 SEEN, Urine Bacteria 1+, Urine Mucus 0 SEEN 06/21/23 00:04: WBC 19.1 H, RBC 5.35, Hgb 16.1 H, Hct 50.2 H, MCV 93.8, MCH 30.1, MCHC 32.1, RDW Std Deviation 42.1, RDW Coeff of Patricia 12.1, Plt Count 361, MPV 9.3, Immature Gran % (Auto) 0.800, Neut % (Auto) 81.3 H, Lymph % (Auto) 6.6 L, [place] % (Auto) 11.0 H, Eos % (Auto) 0.0, Baso % (Auto) 0.3, Absolute Neuts (auto) 15.5 H, Absolute Lymphs (auto) 1.27, Nucleated RBC % 0, Differential Comment SCANNED, Diff Path Review January foll, ESR > 130 H, Sodium 130 L, Potassium 4.8, Chloride 94 L, Carbon Dioxide 28.0, Anion Gap 8, BUN 44 H, Creatinine 1.90 H, Est GFR (MDRD) Af Amer 34 L, Est GFR (MDRD) Non-Af 29 L, BUN/Creatinine Ratio 23.2 H, Glucose 190 H, Calcium 9.5, Total Bilirubin 0.70, Direct Bilirubin 0.24, AST 15, ALT 39, Alkaline Phosphatase 121 H, C-React Prot Ext Range 126.00 H, Total Protein 8.8 H, Albumin 3.3, Globulin 5.5 H, Acetaminophen < 2.0 L 06/21/23 00:50: Troponin I High Sens 17 06/21/23 03:51: WBC 16.2 H, RBC 5.23, Hgb 15.8 H, Hct 49.4 H, MCV 94.5, MCH 30.2, MCHC 32.0, RDW Std Deviation 42.8, RDW Coeff of Patricia 12.2, Plt Count 347, MPV 9.4, Immature Gran % (Auto) 0.600, Neut % (Auto) 79.4 H, Lymph % (Auto) 8.0 L, [place] % (Auto) 11.8 H, Eos % (Auto) 0.0, Baso % (Auto) 0.2, Absolute Neuts (auto) 12.8 H, Absolute Lymphs (auto) 1.29, Nucleated RBC % 0, Differential Comment SCANNED, Diff Path Review January foll, Sodium 132 L, Potassium 5.3 H, Chloride 96 L, Carbon Dioxide 27.0, Anion Gap 9, BUN 44 H, Creatinine 1.70 H, Estim Creat Clear Calc 28.75, Est GFR (MDRD) Af Amer 39 L, Est GFR (MDRD) Non-Af 32 L, BUN/Creatinine Ratio 25.9 H, Glucose 232 H, Hemoglobin A1c 7.4 H, Calcium 8.8, Troponin I High Sens 19 06/21/23 06:57: POC Glucose 199 H 06/21/23 08:20: Fluid Crystals Cancelled, Fluid Crystal Source Cancelled, Fl Crystal Path Review Cancelled, Synovial Source TNP, Synovial Color Red, Synovial Appearance Cloudy, Synovial Viscosity Liquid, Synovial WBC 77.8200 H, Synovial RBC 0.310 H, Synovial Tot Cell Ct 77.9100 H, Synov Polynuclear WBCs 6.958, Synov Mononuclear WBCs 0.824, Synovial Neutrophils 98 H, Synovial Lymphocytes 1, Synovial Other Cells 1, Synovial Polynuclear % 89.4, Synovial Mononuclear % 10.6, Synovial Path Comment May follow 06/21/23 13:18: Fluid Source Cancelled, Fluid Color Cancelled, Fluid Appearance Cancelled, Fluid WBC Cancelled, Fluid RBC Cancelled, Fluid Tot Cell Count Cancelled, Fld Polynuclear WBCs # Cancelled, Fld Polynuclear WBCs % Cancelled, Fluid Mononuclear WBCs Cancelled, Fld Mononuclear WBCs % Cancelled, Fluid Neutrophils Cancelled, Fluid Lymphocytes Cancelled, Fluid Monocytes Cancelled, Fluid Plasma Cells Cancelled, Fluid Macrophages Cancelled, Fld Mesothelial Cells Cancelled, Fluid Other Cells Cancelled, Fluid Crystals NO CRYSTALS SEEN 06/21/23 13:18: Fluid Crystals NO CRYSTALS SEEN, Fluid Crystal Source SYNOVIAL 06/21/23 13:18: Fluid Crystal Source SYNOVIAL, Fl Crystal Path Review Will follow, Fl Pathologist Comment Cancelled, Fluid Comment 2 Cancelled, Synovial Color Red, Synovial Appearance Purulent, Synovial Viscosity Mod. Viscous, Synovial WBC 219.5600 H, Synovial RBC 0.133 H, Synovial Tot Cell Ct 219.7600 H, Synov Polynuclear WBCs 5.037, Synov Mononuclear WBCs 5.037, Synovial Polynuclear % 91.8, Synovial Mononuclear % 8.2, Synovial Path Comment May follow 06/21/23 13:32: POC Glucose 310 H Micro: Microbiology 06/21/23 08:20 Fluid - Synovial (joint) Gram Stain - Final Radiography Diagnostic Testing: Radiology Impression Chest X-Ray 06/21/23 00:44 IMPRESSION: No radiographic evidence of acute cardiopulmonary disease. Electronically Signed: Emy Gonsalez MD at 1:20 EDT , Rhythm Strip Rhythm Strip: Sinus Rhythm Rate: 75 Ectopy: None Charges/Coding Visit Charges Inpatient E&M: 76349 Subs Hosp L3
[2023-06-21 14:34] LABS: Lymph 2 %; Monocyte /Synovial Fluid 6 %; Neutrophil 92 % (0-25)
[2023-06-21 14:35] LABS: Body Fluid QC Type(s) BF1Q,BF2Q
[2023-06-21] MEDS: oxyCODONE 5 MG Tablet PO ×2 (15:22→21:27)
[2023-06-21] MEDS: Ferrous Sulfate 325 MG Tablet PO (15:53)
[2023-06-21 15:59] LABS: Anion Gap 8 (5-15); BUN 48 mg/dL (7-18); BUN/Creat Ratio 29.6 RATIO (10-20); Calcium,Total 8.9 mg/dL (8.5-10.1); Chloride 99 mmol/L (98-107); Creatinine, Serum 1.62 mg/dL (0.55-1.02); EST Glomerular Filtration Rate 34 mL/min (>60); Est Glom Filt Rate - Afr Amer 41 mL/min (>60); Estimated Creatinine Clearance 30.17 ml/min; Glucose 316 mg/dL (74-106); Potassium 4.5 mmol/L (3.5-5.1); Sodium Level 130 mmol/L (136-145)
[2023-06-21] MEDS: HYDROmorphone 0.5 MG/0.5 ML SYRINGE IV (16:14)
[2023-06-21 17:48] LABS: Bedside Glucose 283 mg/dL (74-106)
[2023-06-21] MEDS: DULoxetine Hcl 60 MG Capsule 120 MG PO (21:26)
[2023-06-21] MEDS: Insulin Glargine-YFGN 100 UNIT/ML Pen 6 UNIT SC (21:26)
[2023-06-21] MEDS: traZODone 100 MG Tablet PO (21:26)
[2023-06-21] MEDS: Atorvastatin Calcium 40 MG Tablet PO (21:27)
[2023-06-21 21:38] LABS: Bedside Glucose 328 mg/dL (74-106)
[2023-06-21] MEDS: Vancomycin HCl 1,500 MG in 0.9% Normal Saline (500mL Bag) 500 ML 250 MG IV (23:30)
[2023-06-22] VITALS (11 sets, daily range): BP systolic 122–148; BP diastolic 53–82; PULSE 74–92; RESP 14–18; TEMP 36.5–37.1; O2SAT 94–99
--- NOTE | 2023-06-22 01:37 | PCM.RX.CS ---
Consult Antibiotic Management Pharmacy has been consulted to manage selected antiobiotic: Vancomycin Type of Intervention Type of Consult: New start Labs Labs: Sodium 130 mmol/L (136-145) L 06/21/23 15:20 Potassium 4.5 mmol/L (3.5-5.1) 06/21/23 15:20 Chloride 99 mmol/L (98-107) 06/21/23 15:20 Carbon Dioxide 23.0 mmol/L (21.0-32.0) 06/21/23 15:20 Anion Gap 8 (5-15) 06/21/23 15:20 BUN 48 mg/dL (7-18) H 06/21/23 15:20 Creatinine 1.62 mg/dL (0.55-1.02) H 06/21/23 15:20 Est GFR (MDRD) Af Amer 41 mL/min (>60) L 06/21/23 15:20 Est GFR (MDRD) Non-Af 34 mL/min (>60) L 06/21/23 15:20 BUN/Creatinine Ratio 29.6 RATIO (10-20) H 06/21/23 15:20 Glucose 316 mg/dL (74-106) H 06/21/23 15:20 Microbiology Microbiology: Microbiology 06/21/23 08:20 Fluid - Synovial (joint) Gram Stain - Final Dosing Weight Weight used for dosin.8 kg Estimated Creatinine Clearance Estimated Creatinine Clearance: 52.7 Pharmacy Plan for Drug Dosing Pharmacy Plan for Drug Dosing: Pharmacy Service will continue to monitor and adjust dosing as required. Follow-Up Labs Follow-Up Labs: [place]: Vancomycin Date/Time Labs Ordered Labs to be done on [date and time ordered]: 06/23 @ 1100
[2023-06-22] MEDS: oxyCODONE 5 MG Tablet PO ×3 (05:21→21:18)
[2023-06-22] MEDS: Insulin Lispro 100 UNIT/ML INSULN.PEN SC ×3 (06:01→16:04)
[2023-06-22 06:38] LABS: Absolute Lymphocyte Count 1.42 X10^3/uL (0.83-4.51); Absolute Neutrophil Count 11.2 X10^3/uL (2.0-7.7); Basophil# 0.02 X10^3/uL; Basophil% 0.1 % (0-1); Eosinophil# 0.01 X10^3/uL; Eosinophils% 0.1 % (0-5); Hematocrit 45.6 % (37-47); Lymphocyte # 1.42 X10^3/ul (0.83-4.51); Lymphocyte % 9.7 % (19-41); Mean Corp Hgb Conc 30.7 g/dL (32-36); Mean Corpuscular Volume 97.6 fL (81-99); Mean Platelet Vol. 9.4 fl (6.2-12.0); NRBC Flagged by Analyzer 0 % (0-5); Neutrophil # 11.22 X10^3/uL (2.7-7.7); Neutrophil % 76.6 % (47-70); POSITIVE DIFFERENTIAL YES; Platelet Count 315 K/mm3 (150-450); RBC Distribution Width CV 12.6 % (11.6-14.6); RBC Distribution Width SD 45.7 fl (35.1-43.9); Red Blood Count 4.67 M/mm3 (4.2-5.4); White Blood Count 14.7 K/mm3 (4.4-11.0)
[2023-06-22 06:42] LABS: Differential Indicated SCAN CRITERIA MET
[2023-06-22 07:09] LABS: Anion Gap 7 (5-15); BUN 49 mg/dL (7-18); BUN/Creat Ratio 26.6 RATIO (10-20); Calcium,Total 9.1 mg/dL (8.5-10.1); Chloride 99 mmol/L (98-107); Creatinine, Serum 1.84 mg/dL (0.55-1.02); EST Glomerular Filtration Rate 30 mL/min (>60); Est Glom Filt Rate - Afr Amer 36 mL/min (>60); Estimated Creatinine Clearance 26.56 ml/min; Glucose 341 mg/dL (74-106); Potassium 4.6 mmol/L (3.5-5.1); Sodium Level 133 mmol/L (136-145)
[2023-06-22 07:14] LABS: Differential Comment SCANNED
[2023-06-22] MEDS: Insulin Lispro 100 UNIT/ML INSULN.PEN 20 UNIT SC ×3 (08:04→16:04)
[2023-06-22] MEDS: Insulin Glargine-YFGN 100 UNIT/ML Pen 6 UNIT SC (08:04)
--- NOTE | 2023-06-22 08:27 | PN.ORTHO_ITS ---
Subjective Subjective POD 1 L knee scope I and D for septic joint. Doing well. Still having some knee pain but just recently had pain medications. Objective Data Objective Data Vital Signs: Vital Signs Temp Pulse Resp BP Pulse Ox O2 Del Method O2 Flow Rate 98.5 F 84 18 148/79 H 98 Room Air 2 06/22/23 06:00 06/22/23 06:00 06/22/23 06:00 06/22/23 06:00 06/22/23 07:12 06/22/23 07:12 06/21/23 14:00 Oxygen Flow Rate (L/min) 2 Oxygen Delivery Method Room Air Weight: 211 lb 3.245 oz Body Mass Index (BMI) 37.4 Intake & Output: Intake and Output for Last 24 Hours 06/20/23 06/21/23 06/22/23 23:59 23:59 23:59 Intake Total 1450 / 1950 1230 / 1230 Output Total 900 / 1700 1800 / 1800 Balance 550 / 250 -570 / -570 Lab / Micro Data Attestation: I reviewed the patient's lab results. 06/22/23 06:04 06/22/23 06:04 Labs: Laboratory Results - last 24 hr 06/21/23 03:51: Hemoglobin A1c 7.4 H 06/21/23 08:20: Fluid Crystals Cancelled, Fluid Crystal Source Cancelled, Fl Crystal Path Review Cancelled, Synovial Source TNP, Synovial Color Red, Synovial Appearance Cloudy, Synovial Viscosity Liquid, Synovial WBC 77.8200 H, Synovial RBC 0.310 H, Synovial Tot Cell Ct 77.9100 H, Synov Polynuclear WBCs 6.958, Synov Mononuclear WBCs 0.824, Synovial Neutrophils 98 H, Synovial Lymphocytes 1, Synovial Other Cells 1, Synovial Polynuclear % 89.4, Synovial Mononuclear % 10.6, Synovial Path Comment May follow 06/21/23 13:18: Fluid Source Cancelled, Fluid Color Cancelled, Fluid Appearance Cancelled, Fluid WBC Cancelled, Fluid RBC Cancelled, Fluid Tot Cell Count Cancelled, Fld Polynuclear WBCs # Cancelled, Fld Polynuclear WBCs % Cancelled, Fluid Mononuclear WBCs Cancelled, Fld Mononuclear WBCs % Cancelled, Fluid Neutrophils Cancelled, Fluid Lymphocytes Cancelled, Fluid Monocytes Cancelled, Fluid Plasma Cells Cancelled, Fluid Macrophages Cancelled, Fld Mesothelial Cells Cancelled, Fluid Other Cells Cancelled, Fluid Crystals NO CRYSTALS SEEN 06/21/23 13:18: Fluid Crystals NO CRYSTALS SEEN, Fluid Crystal Source SYNOVIAL 06/21/23 13:18: Fluid Crystal Source SYNOVIAL, Fl Crystal Path Review Will follow 06/21/23 13:18: Fl Crystal Path Review Will follow, Fl Pathologist Comment Cancelled, Fluid Comment 2 Cancelled, Synovial Source Not Reportable, Synovial Color Red, Synovial Appearance Purulent, Synovial Viscosity Mod. Viscous, Synovial WBC 219.5600 H, Synovial RBC 0.133 H, Synovial Tot Cell Ct 219.7600 H, Synov Polynuclear WBCs 5.037, Synov Mononuclear WBCs 5.037, Synovial Neutrophils 92 H, Synovial Lymphocytes 2, Synovial Monocytes 6, Synovial Polynuclear % 91.8, Synovial Mononuclear % 8.2, Synovial Path Comment May follow 06/21/23 13:32: POC Glucose 310 H 06/21/23 15:19: POC Glucose 283 H 06/21/23 15:20: Sodium 130 L, Potassium 4.5, Chloride 99, Carbon Dioxide 23.0, Anion Gap 8, BUN 48 H, Creatinine 1.62 H, Estim Creat Clear Calc 30.17, Est GFR (MDRD) Af Amer 41 L, Est GFR (MDRD) Non-Af 34 L, BUN/Creatinine Ratio 29.6 H, Glucose 316 H, Calcium 8.9 06/21/23 21:17: POC Glucose 328 H 06/22/23 06:04: WBC 14.7 H, RBC 4.67, Hgb 14.0, Hct 45.6, MCV 97.6, MCH 30.0, MCHC 30.7 L, RDW Std Deviation 45.7 H, RDW Coeff of Patricia 12.6, Plt Count 315, MPV 9.4, Immature Gran % (Auto) 0.500, Neut % (Auto) 76.6 H, Lymph % (Auto) 9.7 L, [place] % (Auto) 13.0 H, Eos % (Auto) 0.1, Baso % (Auto) 0.1, Absolute Neuts (auto) 11.2 H, Absolute Lymphs (auto) 1.42, Nucleated RBC % 0, Differential Comment SCANNED, Diff Path Review May foll, Sodium 133 L, Potassium 4.6, Chloride 99, Carbon Dioxide 27.0, Anion Gap 7, BUN 49 H, Creatinine 1.84 H, Estim Creat Clear Calc 26.56, Est GFR (MDRD) Af Amer 36 L, Est GFR (MDRD) Non-Af 30 L, BUN/Creatinine Ratio 26.6 H, Glucose 341 H, Calcium 9.1 Micro: Microbiology 06/21/23 08:20 Fluid - Synovial (joint) Gram Stain - Final new cultures pending from intra op but cell count over 200k and negative prelim crystals Rhythm Strip Rhythm Strip: Sinus Rhythm Rate: 75 Ectopy: None Physical Exam Const alert, oriented x3 and no apparent distress Resp Effort and Inspection: able to speak in complete sentences Extremity normal capillary refill and no calf tenderness Extremity Narrative: knee a bit more swollen, portals normal, steris in place, NVI normal pulses and sensation to the foot, ok to wiggle toes and df /pf the ankle. ROM 0-45. mild bruising anterior knee Assessment & Plan Assessment/Plan (1) Septic joint of left knee joint: PLAN: 62 F POD 1 L knee I and D, for septic joint, negative crystals. On vancomycin but also received a dose of linezolid. Pending ID consult and culture sensitivities for abx regime. Medicine following - thank you. Will trend WBC and inflammatory markers. OK for WBAT and knee ROM - patient aware - but may need a walker and/or crutches. Asked nurses to ice the knee and change bandage this morning. Can use YOEL wrap for gentle compression. Will follow.
[2023-06-22] MEDS: Metoprolol(XL)Succ 50 MG Tablet PO (08:59)
[2023-06-22] MEDS: Magnesium Chloride 64 MG Delay Rel.Tablet 128 MG PO (08:59)
[2023-06-22] MEDS: Furosemide 40 MG Tablet PO (09:00)
[2023-06-22] MEDS: Empagliflozin 25 MG Tablet PO (09:00)
[2023-06-22] MEDS: Amiodarone 200 MG Tablet PO (09:00)
[2023-06-22] MEDS: HYDROmorphone 0.5 MG/0.5 ML SYRINGE IV (09:06)
[2023-06-22] MEDS: 0.9% Saline Lock 10 ML Syringe IV (09:08)
[2023-06-22 10:50] LABS: M R Staph aureus DNA By PCR Negative (Negative); Probe Check PASS; Specimen Processing Control PASS
--- NOTE | 2023-06-22 11:06 | PN.HOSP_ITS ---
Reason for Visit Reason for Visit: Left knee pain/swelling Subjective Subjective Patient reports she is having some pain in the left knee postoperatively but it is fairly well controlled and managed with the current pain regimen. No significant issues overnight other than pain in her knee. She stated that she was able to sleep a little bit better. Objective Data Objective Data Vital Signs: Vital Signs Temp Pulse Resp BP Pulse Ox O2 Del Method O2 Flow Rate 98.5 F 88 18 136/66 H 98 Room Air 2 06/22/23 06:00 06/22/23 08:59 06/22/23 06:00 06/22/23 08:59 06/22/23 07:12 06/22/23 07:12 06/21/23 14:00 Oxygen Flow Rate (L/min) 2 Oxygen Delivery Method Room Air Weight: 95.8 kg Body Mass Index (BMI) 37.4 Intake & Output: Intake and Output for Last 24 Hours 06/20/23 06/21/23 06/22/23 23:59 23:59 23:59 Intake Total 1450 / 1950 1230 / 1230 Output Total 900 / 1700 1800 / 1800 Balance 550 / 250 -570 / -570 Lab / Micro Data 06/22/23 06:04 06/22/23 06:04 Labs: Laboratory Results - last 24 hr 06/21/23 03:51: Hemoglobin A1c 7.4 H 06/21/23 08:20: Fluid Crystals Cancelled, Fluid Crystal Source Cancelled, Fl Crystal Path Review Cancelled 06/21/23 13:18: Fluid Source Cancelled, Fluid Color Cancelled, Fluid Appearance Cancelled, Fluid WBC Cancelled, Fluid RBC Cancelled, Fluid Tot Cell Count Cancelled, Fld Polynuclear WBCs # Cancelled, Fld Polynuclear WBCs % Cancelled, Fluid Mononuclear WBCs Cancelled, Fld Mononuclear WBCs % Cancelled, Fluid Neutrophils Cancelled, Fluid Lymphocytes Cancelled, Fluid Monocytes Cancelled, Fluid Plasma Cells Cancelled, Fluid Macrophages Cancelled, Fld Mesothelial Cells Cancelled, Fluid Other Cells Cancelled, Fluid Crystals NO CRYSTALS SEEN 06/21/23 13:18: Fluid Crystals NO CRYSTALS SEEN, Fluid Crystal Source SYNOVIAL 06/21/23 13:18: Fluid Crystal Source SYNOVIAL, Fl Crystal Path Review Will f ollow 06/21/23 13:18: Fl Crystal Path Review Will follow, Fl Pathologist Comment Cancelled, Fluid Comment 2 Cancelled, Synovial Source Not Reportable, Synovial Color Red, Synovial Appearance Purulent, Synovial Viscosity Mod. Viscous, Synovial WBC 219.5600 H, Synovial RBC 0.133 H, Synovial Tot Cell Ct 219.7600 H, Synov Polynuclear WBCs 5.037, Synov Mononuclear WBCs 5.037, Synovial Neutrophils 92 H, Synovial Lymphocytes 2, Synovial Monocytes 6, Synovial Polynuclear % 91.8, Synovial Mononuclear % 8.2, Synovial Path Comment May follow 06/21/23 13:32: POC Glucose 310 H 06/21/23 15:19: POC Glucose 283 H 06/21/23 15:20: Sodium 130 L, Potassium 4.5, Chloride 99, Carbon Dioxide 23.0, Anion Gap 8, BUN 48 H, Creatinine 1.62 H, Estim Creat Clear Calc 30.17, Est GFR (MDRD) Af Amer 41 L, Est GFR (MDRD) Non-Af 34 L, BUN/Creatinine Ratio 29.6 H, Glucose 316 H, Calcium 8.9 06/21/23 21:17: POC Glucose 328 H 06/22/23 06:04: WBC 14.7 H, RBC 4.67, Hgb 14.0, Hct 45.6, MCV 97.6, MCH 30.0, MCHC 30.7 L, RDW Std Deviation 45.7 H, RDW Coeff of Patricia 12.6, Plt Count 315, MPV 9.4, Immature Gran % (Auto) 0.500, Neut % (Auto) 76.6 H, Lymph % (Auto) 9.7 L, [place] % (Auto) 13.0 H, Eos % (Auto) 0.1, Baso % (Auto) 0.1, Absolute Neuts (auto) 11.2 H, Absolute Lymphs (auto) 1.42, Nucleated RBC % 0, Differential Comment SCANNED, Diff Path Review January foll, Sodium 133 L, Potassium 4.6, Chloride 99, Carbon Dioxide 27.0, Anion Gap 7, BUN 49 H, Creatinine 1.84 H, Estim Creat Clear Calc 26.56, Est GFR (MDRD) Af Amer 36 L, Est GFR (MDRD) Non-Af 30 L, BUN/Creatinine Ratio 26.6 H, Glucose 341 H, Calcium 9.1 06/22/23 09:20: MRSA (PCR) Negative Micro: Microbiology 06/21/23 08:20 Fluid - Synovial (joint) Gram Stain - Final 06/21/23 08:20 Fluid - Synovial (joint) Body Fluid Culture - Preliminary Gram positive organism 06/20/23 23:10 Urine, Clean Catch Urine Culture - Final Mixed Gram Pos & Gram Neg Org Rhythm Strip Rhythm Strip: Sinus Rhythm Rate: 75 Ectopy: None Physical Exam Const alert, oriented x3, no apparent distress and well nourished Constitutional Narrative: Obese, upper middle-aged, white female, lying in bed resting comfortably, patient appears comfortable currently and nontoxic HEENT head/scalp atraumatic and moist oral mucous membranes HEENT Narrative: Mallampati 2-3, no thrush Head and Scalp: normocephalic Resp normal respiratory effort, no retractions and no use of accessory muscles Cardio S1 normal heart sound, S2 normal heart sound, no murmurs, no rub, no gallops and no clicks Cardio Narrative: Rate controlled irregular irregular rhythm GI normal to inspection, nondistended, normoactive bowel sounds, soft to palpation and non-tender Extremity Negative for full ROM Extremity Narrative: Left knee with postoperative bandages in place and dried blood underneath but no active bleeding, effusion noted due to recent surgery and washout, trace left lower extremity edema likely related to surgical intervention but no cyanosis or clubbing, no significant abnormalities right lower extremity, pedal pulses bilaterally are 2+ Neuro oriented x3, moves all extremities and no focal motor deficits Neuro Narrative: Decreased ability to move left knee due to pain Speech: speech normal Psych affect normal Psych Narrative: Very pleasant, interacts appropriately Assessment & Plan Assessment/Plan (1) Septic joint of left knee joint: (2) Chest pain: QUALIFIERS: Chest pain type: unspecified Qualified Code(s): R07.9 - Chest pain, unspecified (3) UTI (urinary tract infection): QUALIFIERS: Urinary tract infection type: acute cystitis Hematuria presence: without hematuria Qualified Code(s): N30.00 - Acute cystitis without hematuria (4) Leukocytosis: (5) Hyperkalemia: PLAN: Plan Septic joint left knee -Postop day 1 I&D of septic joint left knee -ID consult is pending but they did recommend with my conversation yesterday to continue cefepime and vancomycin -Continue as needed pain medication -We will schedule Tylenol -As needed medication for bowel regimen -Weightbearing as tolerated in knee range of motion -PT/OT consultation is pending -Blood cultures and finalized cultures of the joint are pending Leukocytosis -Likely related the above -Trending down -Antibiotics as ordered -Await cultures Urinary tract infection -This was ruled out -Culture with mixed gram-positive and gram-negative organisms a 80-100,000 indicative of contaminant Hyperkalemia -Resolved DM-2 -Blood sugars are elevated this morning this may be stress response along with infection -Hold on making any aggressive changes with her insulin regimen at this time and monitor closely with possible changes tomorrow depending on trend over time -At baseline patient appears to be well controlled as hemoglobin A1c was 7.4 on 06/21/2023 -Patient is on Farxiga at baseline we will substitute Jardiance while hospitalized -Continue home insulin 12 units nightly -Humalog 20 units with meals was reinitiated -SSI -Accu-Cheks as ordered Persistent atrial fibrillation -Continue home amiodarone -Okay to start apixaban 24 hours postoperatively per discussion with orthopedic surgery so we will therefore start dose tonight -Continue home metoprolol CKD stage IIIb -Baseline serum creatinine appears to be between 1.4 and 1.65 -Current serum creatinine serum creatinine at this time is 1.84 which appears to be slightly above her baseline -We will continue home diuresis but monitor closely and if trends up further tomorrow we will hold -Suspect baseline renal dysfunction is related to diabetic nephropathy Hyponatremia -Mild and appears to be somewhat chronic -Is trending up and 133 this morning -Continue home Lasix -Trending up -Continue to monitor Hyperlipidemia -Continue home atorvastatin Insomnia -Continue home trazodone Obesity -BMI 37.4 -Would benefit from weight loss -Complicates treatment, prognosis, outcomes DVT prophylaxis -SCDs for now -Okay to restart Eliquis tonight CODE STATUS -Full code
[2023-06-22] MEDS: Vancomycin IV 1,000 MG/200 ML BAG 200 MG IV ×2 (11:32→23:59)
[2023-06-22 11:50] LABS: Bedside Glucose 316 mg/dL (74-106)
--- NOTE | 2023-06-22 12:49 | PCM.CONS.GEN ---
Assessment & Plan Assessment/Plan (1) Septic joint of left knee joint: PLAN: Aspiration and then OR 06/21/[address] Moreno. From OR sample, no crystals seen, wbc 219k, 92% neutrophils, cx showing gram pos. Spoke with micro lab, suspected staph aureus. Cont iv vanc. Will follow, thank you HPI Consult Data Date of Consult: 06/22/23 HPI Narrative Reason for Consultation: septic arthritis HPI Narrative: MARIA OTT, is a 62 F with h/o CKD, obesity, CHF, presented with one week progressive L knee pain after twisting her knee. Given kenalog shot 06/16. Some warmth, no redness or drainage. No fever or chills, no recent abx. Admitted 06/21/23, aspiration done by Dr. Moreno. Started on iv vanc, did get dose of linezolid. Feeling better today, knee pain improved. Full ROS performed and neg except as noted above. [facility] Medical History Atrial fibrillation, new onset Atypical chest pain Cardiomyopathy Chest pain CHF (congestive heart failure) CVA (cerebral vascular accident) Effusion, left knee Finger lesion HLD (hyperlipidemia) Hypertension Hypertensive urgency Menopausal and female climacteric states Migraine headache Obesity Osteoarthritis of left knee Stage 3b chronic kidney disease (CKD) Type II diabetes mellitus Home Medications duloxetine 60 mg capsule,delayed release 120 mg PO QHS mental health 11/08/21 [History Last Taken Unknown] acetaminophen 325 mg tablet (Tylenol) 650 mg (2 x 325 mg) PO Q4H PRN PRN Fever, pain 1-06/21 #0 tabs 09/17/22 [Rx Last Taken Unknown] ferrous sulfate 325 mg (65 mg iron) tablet (FeroSul) 325 mg PO DAILY@1200 #0 tabs 09/17/22 [Rx Last Taken Unknown] potassium chloride 10 mEq capsule,extended release 10 meq PO DAILY supplement #30 caps 09/17/22 [Rx Last Taken Unknown] apixaban 5 mg tablet (Eliquis) 5 mg PO BID #180 tabs 11/04/22 [Rx Last Taken Unknown] atorvastatin 40 mg tablet 40 mg PO QHS cholesterol #90 tabs 11/04/22 [Rx Last Taken Unknown] dapagliflozin propanediol 10 mg tablet (Farxiga) 10 mg PO DAILY #90 tabs 02/09/23 [Rx Last Taken Unknown] amiodarone 200 mg tablet 200 mg PO DAILY 05/09/23 [History Last Taken Unknown] furosemide 40 mg tablet 40 mg PO DAILY 05/09/23 [History Last Taken Unknown] insulin lispro 100 unit/mL subcutaneous pen (Humalog KwikPen (U-100) Insulin) 20 unit (0.2 mL) subcut TID diabetes #54 mL 05/09/23 [Rx Last Taken Unknown] magnesium 250 mg tablet 500 mg PO DAILY supplement 05/09/23 [History Last Taken Unknown] mecobalamin (vitamin B12) 5,000 mcg disintegrating tablet 5,000 mcg PO DAILY supplement 05/09/23 [History Last Taken Unknown] trazodone 100 mg tablet 100 mg PO DAILY insomnia 05/09/23 [History Last Taken Unknown] dulaglutide 0.75 mg/0.5 mL subcutaneous pen injector (Trulicity) 0.75 mg (0.5 mL) subcut QWEEK #2 mL 05/18/23 [Rx Last Taken Unknown] metoprolol succinate 50 mg tablet,extended release 24 hr 50 mg PO DAILY #90 tabs 06/07/23 [Rx Last Taken Unknown] methylprednisolone 4 mg tablets in a dose pack (Medrol (Bird)) See Rx Instructions PO PER PKG DIR steroid for knee #21 tabs 06/20/23 [Rx Last Taken 06/20/23] insulin glargine 100 unit/mL (3 mL) subcutaneous pen (Lantus Solostar U-100 Insulin) 12 unit subcut QHS diabetes 06/21/23 [History Last Taken Unknown] nystatin 100,000 unit/gram topical powder (Nyamyc) 1 applic topical BID PRN redness 06/21/23 [History Last Taken Unknown] Allergy/AdvReac Type Severity Reaction Status Date / Time ampicillin Allergy Intermediate Hives Verified 06/21/23 04:52 levofloxacin [From Levaquin] Allergy Other Verified 06/20/23 22:57 Penicillins Allergy Hives Verified 06/20/23 22:57 ampicillin Allergy Intermediate Hives Uncoded 06/20/23 13:04 Family History Mother Diabetes Psoriatic arthritis Rheumatoid arthritis Father COPD (chronic obstructive pulmonary disease) With concurrent tobacco use history. Myocardial infarction Heart disease Surgical History History of foot surgery Social History adopted: No household members: spouse housing: house number of children: 0 current occupational status: employed current occupation: works at [employer] pets and animals: Yes (kittens, dogs, horses) Smoking Status: Never smoker alcohol intake: never substance use type: does not use caffeine: Yes (occasionally) Type: carbonated beverages and coffee Physical Exam Const alert, oriented x3 and no apparent distress General Appearance: cooperative and well developed HEENT normocephalic and head/scalp atraumatic Eyes PERRL and EOMs intact bilaterally Neck supple and No nodes Resp normal air movement and clear to auscultation bilaterally Cardio regular rate and regular rhythm GI soft to palpation, non-tender and non-distended Extremity Extremity Narrative: mild L knee swelling Skin no rashes or lesions noted Neuro CN's II-XII intact bilaterally Lab / Micro Data Attestation: I reviewed the patient's lab results. 06/22/23 06:04 06/22/23 06:04 Labs: Laboratory Results - last 24 hr 06/21/23 03:51: Hemoglobin A1c 7.4 H 06/21/23 13:18: Fluid Source Cancelled, Fluid Color Cancelled, Fluid Appearance Cancelled, Fluid WBC Cancelled, Fluid RBC Cancelled, Fluid Tot Cell Count Cancelled, Fld Polynuclear WBCs # Cancelled, Fld Polynuclear WBCs % Cancelled, Fluid Mononuclear WBCs Cancelled, Fld Mononuclear WBCs % Cancelled, Fluid Neutrophils Cancelled, Fluid Lymphocytes Cancelled, Fluid Monocytes Cancelled, Fluid Plasma Cells Cancelled, Fluid Macrophages Cancelled, Fld Mesothelial Cells Cancelled, Fluid Other Cells Cancelled, Fluid Crystals NO CRYSTALS SEEN 06/21/23 13:18: Fluid Crystals NO CRYSTALS SEEN, Fluid Crystal Source SYNOVIAL 06/21/23 13:18: Fluid Crystal Source SYNOVIAL, Fl Crystal Path Review Will follow 06/21/23 13:18: Fl Crystal Path Review Will follow, Fl Pathologist Comment Cancelled, Fluid Comment 2 Cancelled, Synovial Source Not Reportable, Synovial Color Red, Synovial Appearance Purulent, Synovial Viscosity Mod. Viscous, Synovial WBC 219.5600 H, Synovial RBC 0.133 H, Synovial Tot Cell Ct 219.7600 H, Synov Polynuclear WBCs 5.037, Synov Mononuclear WBCs 5.037, Synovial Neutrophils 92 H, Synovial Lymphocytes 2, Synovial Monocytes 6, Synovial Polynuclear % 91.8, Synovial Mononuclear % 8.2, Synovial Path Comment May follow 06/21/23 13:32: POC Glucose 310 H 06/21/23 15:19: POC Glucose 283 H 06/21/23 15:20: Sodium 130 L, Potassium 4.5, Chloride 99, Carbon Dioxide 23.0, Anion Gap 8, BUN 48 H, Creatinine 1.62 H, Estim Creat Clear Calc 30.17, Est GFR (MDRD) Af Amer 41 L, Est GFR (MDRD) Non-Af 34 L, BUN/Creatinine Ratio 29.6 H, Glucose 316 H, Calcium 8.9 06/21/23 21:17: POC Glucose 328 H 06/22/23 06:04: WBC 14.7 H, RBC 4.67, Hgb 14.0, Hct 45.6, MCV 97.6, MCH 30.0, MCHC 30.7 L, RDW Std Deviation 45.7 H, RDW Coeff of Patricia 12.6, Plt Count 315, MPV 9.4, Immature Gran % (Auto) 0.500, Neut % (Auto) 76.6 H, Lymph % (Auto) 9.7 L, [place] % (Auto) 13.0 H, Eos % (Auto) 0.1, Baso % (Auto) 0.1, Absolute Neuts (auto) 11.2 H, Absolute Lymphs (auto) 1.42, Nucleated RBC % 0, Differential Comment SCANNED, Diff Path Review January, Sodium 133 L, Potassium 4.6, Chloride 99, Carbon Dioxide 27.0, Anion Gap 7, BUN 49 H, Creatinine 1.84 H, Estim Creat Clear Calc 26.56, Est GFR (MDRD) Af Amer 36 L, Est GFR (MDRD) Non-Af 30 L, BUN/Creatinine Ratio 26.6 H, Glucose 341 H, Calcium 9.1 06/22/23 09:20: MRSA (PCR) Negative 06/22/23 11:19: POC Glucose 316 H Micro: Microbiology 06/21/23 13:18 Wound Drainage - Aerobic & Anaerobic Swabs Wound Culture - Preliminary Gram positive organism 06/21/23 08:20 Fluid - Synovial (joint) Gram Stain - Final 06/21/23 08:20 Fluid - Synovial (joint) Body Fluid Culture - Preliminary Gram positive organism 06/20/23 23:10 Urine, Clean Catch Urine Culture - Final Mixed Gram Pos & Gram Neg Org Rhythm Strip Rhythm Strip: Sinus Rhythm Rate: 75 Ectopy: None
[2023-06-22 13:08] LABS: Pathologist Review Reviewed
[2023-06-22 13:29] LABS: Pathologist Review Reviewed
[2023-06-22 13:29] LABS: Pathologist Comment Reviewed
[2023-06-22 13:30] LABS: Pathologist Review Reviewed
[2023-06-22] MEDS: Ferrous Sulfate 325 MG Tablet PO (13:31)
[2023-06-22] MEDS: Acetaminophen 500 MG Tablet 1000 MG PO ×2 (13:31→21:42)
[2023-06-22 13:32] LABS: Pathologist Review Reviewed
[2023-06-22 13:32] LABS: Pathologist Review Reviewed
[2023-06-22 16:26] LABS: Bedside Glucose 222 mg/dL (74-106)
[2023-06-22] MEDS: DULoxetine Hcl 60 MG Capsule 120 MG PO (21:39)
[2023-06-22] MEDS: traZODone 100 MG Tablet PO (21:41)
[2023-06-22] MEDS: APIXABAN 5 MG TABLET PO (21:41)
[2023-06-22] MEDS: Atorvastatin Calcium 40 MG Tablet PO (21:41)
[2023-06-22] MEDS: Insulin Glargine-YFGN 100 UNIT/ML Pen 12 UNIT SC (23:06)
[2023-06-23] VITALS (10 sets, daily range): BP systolic 124–153; BP diastolic 61–88; PULSE 75–100; RESP 14–18; TEMP 36.4–37.2; O2SAT 98–100
[2023-06-23] MEDS: oxyCODONE 5 MG Tablet PO ×4 (03:37→18:15)
[2023-06-23 06:15] LABS: Absolute Lymphocyte Count 1.84 X10^3/uL (0.83-4.51); Absolute Neutrophil Count 9.3 X10^3/uL (2.0-7.7); Basophil# 0.01 X10^3/uL; Basophil% 0.1 % (0-1); Eosinophil# 0.13 X10^3/uL; Hematocrit 38.6 % (37-47); Hemoglobin 12.4 g/dL (12.0-15.0); Lymphocyte # 1.84 X10^3/ul (0.83-4.51); Lymphocyte % 14.3 % (19-41); Mean Corp Hgb Conc 32.1 g/dL (32-36); Mean Corpuscular Hgb 30.7 pg (27.0-32.0); Mean Corpuscular Volume 95.5 fL (81-99); Mean Platelet Vol. 9.4 fl (6.2-12.0); Monocyte# 1.51 X10^3/uL; Monocyte% 11.7 % (0-10); NRBC Flagged by Analyzer 0 % (0-5); Neutrophil # 9.28 X10^3/uL (2.7-7.7); Neutrophil % 72.1 % (47-70); POSITIVE DIFFERENTIAL YES; Platelet Count 275 K/mm3 (150-450); RBC Distribution Width CV 12.5 % (11.6-14.6); Red Blood Count 4.04 M/mm3 (4.2-5.4); White Blood Count 12.9 K/mm3 (4.4-11.0)
[2023-06-23] MEDS: Acetaminophen 500 MG Tablet 1000 MG PO ×3 (06:27→19:39)
[2023-06-23 06:29] LABS: Differential Indicated SCAN CRITERIA MET
[2023-06-23 06:53] LABS: Anion Gap 7 (5-15); BUN 44 mg/dL (7-18); BUN/Creat Ratio 29.5 RATIO (10-20); Calcium,Total 8.8 mg/dL (8.5-10.1); Chloride 101 mmol/L (98-107); Creatinine, Serum 1.49 mg/dL (0.55-1.02); EST Glomerular Filtration Rate 38 mL/min (>60); Est Glom Filt Rate - Afr Amer 46 mL/min (>60); Glucose 174 mg/dL (74-106); Potassium 3.9 mmol/L (3.5-5.1); Sodium Level 133 mmol/L (136-145)
[2023-06-23 07:14] LABS: Differential Comment SCANNED
--- NOTE | 2023-06-23 07:25 | ECHOL_ITS ---
Reason For Study: STAPH AUREUS BACTEREMIA Procedure This was a limited 2D transthoracic echocardiogram. Exam performed portable in patient room. Left Ventricle Normal LV size. Left ventricular systolic function is normal. The estimated ejection fraction is 55 %. No regional wall motion abnormalities noted. Right Ventricle Normal RV size. Normal systolic function. Atria Normal left atrium. Normal right atrium. Aortic Valve Trisinus/trileaflet aortic valve. Mild focal aortic valve calcification. Pulmonic Valve The pulmonic valve is not well visualized. Great Vessels Normal aortic root. The pulmonary artery is normal size. Normal inferior vena cava. Pericardium/Pleural No pericardial effusion. MMode/2D Measurements & Calculations LVIDd: 5.0 cm IVSd: 1.3 cm Ao root diam: 3.2 cm LVIDs: 3.6 cm LVPWd: 1.1 cm FS: 27.5 % LAV(MOD-sp4): 51.5 ml LA dimension(2D): 3.3 cm LA A4 area: 19.5 cm2 RA A4 area: 11.0 cm2 ECHO/Echo, Limited Study Interpretation Summary Normal LV size. Left ventricular systolic function is normal. The estimated ejection fraction is 55 %. Ordering Physician: Yajaira Bryan Referring Physician: NANDO RODRIGUEZ Performed By: Beba Benjamin RCS
[2023-06-23] MEDS: Insulin Lispro 100 UNIT/ML INSULN.PEN 20 UNIT SC ×2 (07:59→11:19)
[2023-06-23] MEDS: Insulin Lispro 100 UNIT/ML INSULN.PEN SC ×2 (08:00→11:20)
[2023-06-23] MEDS: Metoprolol(XL)Succ 50 MG Tablet PO (10:42)
[2023-06-23] MEDS: Empagliflozin 25 MG Tablet PO (10:42)
[2023-06-23] MEDS: Furosemide 40 MG Tablet PO (10:42)
[2023-06-23] MEDS: APIXABAN 5 MG TABLET PO ×2 (10:42→19:40)
[2023-06-23] MEDS: Ferrous Sulfate 325 MG Tablet PO (10:43)
[2023-06-23] MEDS: Magnesium Chloride 64 MG Delay Rel.Tablet 128 MG PO (10:43)
[2023-06-23] MEDS: Amiodarone 200 MG Tablet PO (10:43)
--- NOTE | 2023-06-23 11:02 | PCM.PN.ID ---
Physical Exam Narrative Feeling ok, no new joint pain, knee about the same, no fever Const alert and no apparent distress General Appearance: cooperative Resp normal air movement and clear to auscultation bilaterally Cardio regular rate and regular rhythm GI soft to palpation, non-tender and non-distended Extremity Extremity Narrative: no spine tenderness Skin no rashes or lesions noted ID ID: Route of nutrition/ use of supplements: [] Nutritional Intake: [] IV Site: [] Castaneda Catheter: [] Assessment & Plan Assessment/Plan (1) Septic joint of left knee joint: PLAN: Aspiration and then OR 06/21/[address] Moreno. From OR sample, no crystals seen, wbc 219k, 92% neutrophils, cx showing gram pos. Cx with MSSA, now bcx also with mssa per pcr. Will narrow vanc to cefazolin. TTE and repeat bcx pending. Will follow, d/w Dr. Bryan (2) MSSA bacteremia:
--- NOTE | 2023-06-23 11:06 | CASEMGMT ---
Therapy spoke with SW yesterday regarding the amount of assistance patient needs. At this time they are recommending patient go somewhere for therapy. SW met with patient introduced self and role at [facility]. SW explained therapy recommendations and also that she will now need IV antibiotics at discharge. Patient agreed to take a list of SNF's and consider this option. SW provided patient with a list of nursing home facility providers including quality and resource use data and consistent with patient?s preferred geographic region, medical needs, and insurance network were provided from the [facility] Guide. SW did let patient know that per physician she will likely be here until the beginning of next week. SW told patient she will continue to get therapy that whole time. SW encouraged patient to stay active and she may not need a long-term. ROLDAN and RN CM will continue to follow for appropriate d/c plan. Zena ERICKSON
[2023-06-23 11:09] LABS: GLUCOSE, SYNOVIAL FLUID 119 mg/dL (.)
--- NOTE | 2023-06-23 12:21 | PN.HOSP_ITS ---
Reason for Visit Reason for Visit: Left knee pain and swelling Subjective Subjective No issues overnight. Knee is feeling somewhat better however still painful. Clinically stable. White count is improving. Unfortunately her blood cultures resulted positive this morning for Staph aureus. This is MSSA and consistent with joint cultures. I did discuss the case at the nature of her bacteremia and the fact that she would need IV antibiotics and negative cultures at 48 hours prior to PICC placement that she would likely be here until Tuesday. Patient is frustrated that this is likely result of the joint injection and I did voice with her that is understandable. Objective Data Objective Data Vital Signs: Vital Signs Temp Pulse Resp BP Pulse Ox O2 Del Method O2 Flow Rate 98.2 F 84 16 153/81 H 98 Room Air 2 06/23/23 10:54 06/23/23 10:54 06/23/23 10:54 06/23/23 10:54 06/23/23 10:54 06/23/23 10:54 06/21/23 14:00 Oxygen Flow Rate (L/min) 2 Oxygen Delivery Method Room Air Weight: 95.8 kg Body Mass Index (BMI) 37.4 Intake & Output: Intake and Output for Last 24 Hours 06/21/23 06/22/23 06/23/23 23:59 23:59 23:59 Intake Total 1450 / 1950 2030 / 2030 200 / 200 Output Total 900 / 1700 3400 / 3400 450 / 450 Balance 550 / 250 -1370 / -1370 -250 / -250 Lab / Micro Data 06/23/23 05:30 06/23/23 05:30 Labs: Laboratory Results - last 24 hr 06/21/23 00:04: Diff Path Review Reviewed 06/21/23 03:51: Diff Path Review Reviewed 06/21/23 08:20: Synovial Path Comment Reviewed, Synovial Glucose 119 06/21/23 13:18: Fl Crystal Path Review Reviewed 06/21/23 13:18: Fl Crystal Path Review Reviewed 06/22/23 06:04: Diff Path Review Reviewed 06/22/23 16:03: POC Glucose 222 H 06/23/23 05:30: WBC 12.9 H, RBC 4.04 L, Hgb 12.4, Hct 38.6, MCV 95.5, MCH 30.7, MCHC 32.1, RDW Std Deviation 44.0 H, RDW Coeff of Patricia 12.5, Plt Count 275, MPV 9.4, Immature Gran % (Auto) 0.800, Neut % (Auto) 72.1 H, Lymph % (Auto) 14.3 L, [place] % (Auto) 11.7 H, Eos % (Auto) 1.0, Baso % (Auto) 0.1, Absolute Neuts (auto) 9.3 H, Absolute Lymphs (auto) 1.84, Nucleated RBC % 0, Differential Comment SCANNED, Diff Path Review January, Sodium 133 L, Potassium 3.9, Chloride 101, Carbon Dioxide 25.0, Anion Gap 7, BUN 44 H, Creatinine 1.49 H, Estim Creat Clear Calc 32.80, Est GFR (MDRD) Af Amer 46 L, Est GFR (MDRD) Non-Af 38 L, BUN/Creatinine Ratio 29.5 H, Glucose 174 H, Calcium 8.8 Micro: Microbiology 06/21/23 08:20 Fluid - Synovial (joint) Gram Stain - Final 06/21/23 08:20 Fluid - Synovial (joint) Body Fluid Culture - Preliminary Staphylococcus aureus Alpha hemolytic organism 06/21/23 08:20 Fluid - Synovial (joint) Anaerobic Culture - Preliminary Checking for anaerobes, further studies to follow. 06/21/23 16:30 Blood Culture (Wb) - Right Hand Bacteria Detection (PCR) - Final Staphylococcus aureus 06/21/23 16:30 Blood Culture (Wb) - Right Hand Blood Culture - Preliminary Staphylococcus aureus 06/21/23 13:18 Wound Drainage - Aerobic & Anaerobic Swabs Gram Stain - Final 06/21/23 13:18 Wound Drainage - Aerobic & Anaerobic Swabs Wound Culture - Final Staphylococcus aureus 06/20/23 23:10 Urine, Clean Catch Urine Culture - Final Mixed Gram Pos & Gram Neg Org Radiography Diagnostic Testing: Radiology Impression Echocardiogram 06/23/23 07:25 Interpretation Summary Normal LV size. Left ventricular systolic function is normal. The estimated ejection fraction is 55 %. Ordering Physician: Yajaira Bryan Referring Physician: NANDO RODRIGUEZ Performed By: Beba Benjamin RCS Rhythm Strip Rhythm Strip: Sinus Rhythm Rate: 75 Ectopy: None Physical Exam Const alert, oriented x3, no apparent distress and well nourished Constitutional Narrative: Obese, upper middle-aged, white female, sitting up in a chair at the bedside, patient appears comfortable currently and nontoxic HEENT head/scalp atraumatic and moist oral mucous membranes HEENT Narrative: Mallampati 2-3, no thrush Head and Scalp: normocephalic Resp normal respiratory effort, no retractions, no use of accessory muscles and clear to auscultation bilaterally Auscultation: Negative for rales, rhonchi or wheezes Cardio S1 normal heart sound, S2 normal heart sound, no murmurs, no rub, no gallops and no clicks Cardio Narrative: Rate controlled irregular irregular rhythm GI normal to inspection, nondistended, normoactive bowel sounds, soft to palpation and non-tender Extremity Negative for full ROM Extremity Narrative: Left knee with postoperative bandages in place and dried blood underneath but no active bleeding, effusion noted due to recent surgery and washout, trace left lower extremity edema likely related to surgical intervention but no cyanosis or clubbing, no significant abnormalities right lower extremity, pedal pulses bilaterally are 2+ Neuro oriented x3, moves all extremities and no focal motor deficits Neuro Narrative: Decreased ability to move left knee due to pain Speech: speech normal Psych affect normal Psych Narrative: Very pleasant, interacts appropriately Assessment & Plan Assessment/Plan (1) Septic joint of left knee joint: (2) Chest pain: QUALIFIERS: Chest pain type: unspecified Qualified Code(s): R07.9 - Chest pain, unspecified (3) UTI (urinary tract infection): QUALIFIERS: Urinary tract infection type: acute cystitis Hematuria presence: without hematuria Qualified Code(s): N30.00 - Acute cysti tis without hematuria (4) Leukocytosis: (5) Hyperkalemia: PLAN: Plan Septic joint left knee secondary to MSSA -Postop day 2 I&D of septic joint left knee -Continue as needed pain medication -Continue scheduled Tylenol -As needed medication for bowel regimen -Weightbearing as tolerated in knee range of motion -PT/OT consultation following -Patient may need placement or at least home therapy at discharge we will continue to monitor progress with PT and OT -Blood cultures are positive for Staph aureus as well MSSA bacteremia -Check echocardiogram -Repeat blood cultures for clearance--> once negative for 48 hours and okay with ID will place PICC -Patient does not clear will need ROBERTO -Will need IV antibiotics at discharge Leukocytosis -Continues to trend down -Continue antibiotics DM-2 -Blood sugars are elevated this morning this may be stress response along with infection -Hold on making any aggressive changes with her insulin regimen at this time and monitor closely with possible changes tomorrow depending on trend over time -At baseline patient appears to be well controlled as hemoglobin A1c was 7.4 on 06/21/2023 -Patient is on Farxiga at baseline we will substitute Jardiance while hospitalized -Continue home insulin 12 units nightly -Humalog 20 units with meals was reinitiated -SSI -Accu-Cheks as ordered Persistent atrial fibrillation -Continue home amiodarone -Okay to start apixaban 24 hours postoperatively per discussion with orthopedic surgery so we will therefore start dose tonight -Continue home metoprolol CKD stage IIIb -Baseline serum creatinine appears to be between 1.4 and 1.65 -Current serum creatinine serum creatinine at this time is 1.84 which appears to be slightly above her baseline -We will continue home diuresis but monitor closely and if trends up further tomorrow we will hold -Suspect baseline renal dysfunction is related to diabetic nephropathy Hyponatremia -Mild and appears to be somewhat chronic -Is trending up and 133 this morning -Continue home Lasix -Trending up -Continue to monitor Hyperlipidemia -Continue home atorvastatin Insomnia -Continue home trazodone Obesity -BMI 37.4 -Would benefit from weight loss -Complicates treatment, prognosis, outcomes DVT prophylaxis -SCDs for now -Okay to restart Eliquis tondarrell CODE STATUS -Full code
[2023-06-23] MEDS: Cefazolin 2 GM in 0.9% Normal Saline (100mL Bag) 100 ML IV ×2 (13:41→19:44)
[2023-06-23] MEDS: HYDROmorphone 0.5 MG/0.5 ML SYRINGE IV (19:30)
[2023-06-23] MEDS: traZODone 100 MG Tablet PO (19:38)
[2023-06-23] MEDS: Atorvastatin Calcium 40 MG Tablet PO (19:39)
[2023-06-23] MEDS: DULoxetine Hcl 60 MG Capsule 120 MG PO (19:40)
[2023-06-23] MEDS: Insulin Glargine-YFGN 100 UNIT/ML Pen 12 UNIT SC (19:45)
[2023-06-24] VITALS (8 sets, daily range): BP systolic 129–154; BP diastolic 54–74; PULSE 72–78; RESP 16–18; TEMP 36.5–36.6; O2SAT 97–100
[2023-06-24] MEDS: oxyCODONE 5 MG Tablet PO ×3 (01:27→10:08)
[2023-06-24] MEDS: Cefazolin 2 GM in 0.9% Normal Saline (100mL Bag) 100 ML IV ×3 (05:39→22:05)
[2023-06-24] MEDS: Acetaminophen 500 MG Tablet 1000 MG PO ×3 (05:40→21:52)
[2023-06-24] MEDS: 0.9% Saline Lock 10 ML Syringe IV (05:42)
[2023-06-24 06:52] LABS: Absolute Lymphocyte Count 1.99 X10^3/uL (0.83-4.51); Basophil# 0.02 X10^3/uL; Basophil% 0.2 % (0-1); Eosinophil# 0.17 X10^3/uL; Eosinophils% 1.4 % (0-5); Hematocrit 36.9 % (37-47); Hemoglobin 11.6 g/dL (12.0-15.0); Lymphocyte # 1.99 X10^3/ul (0.83-4.51); Lymphocyte % 16.9 % (19-41); Mean Corp Hgb Conc 31.4 g/dL (32-36); Mean Corpuscular Hgb 30.3 pg (27.0-32.0); Mean Corpuscular Volume 96.3 fL (81-99); Mean Platelet Vol. 9.2 fl (6.2-12.0); Monocyte# 1.53 X10^3/uL; NRBC Flagged by Analyzer 0 % (0-5); Neutrophil # 7.99 X10^3/uL (2.7-7.7); Neutrophil % 67.7 % (47-70); POSITIVE DIFFERENTIAL YES; Platelet Count 290 K/mm3 (150-450); RBC Distribution Width CV 12.4 % (11.6-14.6); RBC Distribution Width SD 44.2 fl (35.1-43.9); Red Blood Count 3.83 M/mm3 (4.2-5.4); White Blood Count 11.8 K/mm3 (4.4-11.0)
[2023-06-24 07:05] LABS: Differential Indicated SCAN CRITERIA MET
[2023-06-24 07:08] LABS: Differential Comment SCANNED
[2023-06-24 07:23] LABS: Anion Gap 9 (5-15); BUN 43 mg/dL (7-18); BUN/Creat Ratio 28.3 RATIO (10-20); Calcium,Total 8.4 mg/dL (8.5-10.1); Chloride 102 mmol/L (98-107); Creatinine, Serum 1.52 mg/dL (0.55-1.02); EST Glomerular Filtration Rate 37 mL/min (>60); Est Glom Filt Rate - Afr Amer 45 mL/min (>60); Estimated Creatinine Clearance 31.74 ml/min; Glucose 199 mg/dL (74-106); Potassium 3.9 mmol/L (3.5-5.1); Sodium Level 138 mmol/L (136-145)
[2023-06-24] MEDS: Insulin Lispro 100 UNIT/ML INSULN.PEN 20 UNIT SC ×3 (08:18→17:28)
[2023-06-24] MEDS: Insulin Lispro 100 UNIT/ML INSULN.PEN SC ×3 (08:18→17:28)
[2023-06-24 09:18] LABS: Pathologist Review Reviewed
[2023-06-24] MEDS: Empagliflozin 25 MG Tablet PO (10:08)
[2023-06-24] MEDS: Magnesium Chloride 64 MG Delay Rel.Tablet 128 MG PO (10:08)
[2023-06-24] MEDS: Amiodarone 200 MG Tablet PO (10:08)
[2023-06-24] MEDS: Furosemide 40 MG Tablet PO (10:08)
[2023-06-24] MEDS: APIXABAN 5 MG TABLET PO ×2 (10:08→21:56)
[2023-06-24] MEDS: Metoprolol(XL)Succ 50 MG Tablet PO (10:09)
[2023-06-24] MEDS: Ferrous Sulfate 325 MG Tablet PO (10:09)
--- NOTE | 2023-06-24 12:06 | PCM.PN.ID ---
Physical Exam Narrative Feeling better, knee still sore, no n/v/d, no fever Const alert and no apparent distress Resp normal air movement and clear to auscultation bilaterally Cardio regular rate and regular rhythm GI soft to palpation, non-tender and non-distended Skin no rashes or lesions noted ID ID: Route of nutrition/ use of supplements: [] Nutritional Intake: [] IV Site: [] Castaneda Catheter: [] Assessment & Plan Assessment/Plan (1) Septic joint of left knee joint: PLAN: Aspiration and then OR 06/21/[address] Moreno. From OR sample, no crystals seen, wbc 219k, 92% neutrophils, cx showing gram pos. Cx with MSSA, now bcx also with mssa per pcr. Cont cefazolin. TTE showed no veg and repeat bcx pending. Will follow (2) MSSA bacteremia:
--- NOTE | 2023-06-24 12:09 | PCM.PN.HOSP ---
Reason for Visit Reason for Visit: Left knee pain and swelling/inability ambulate Subjective Subjective Patient states she is slowly feeling better. Left knee pain is overall improving slowly. We discussed that her echo did not show any valvular abnormalities and that if her blood cultures on repeat are negative no further work-up for endocarditis will need to be performed. I did reiterate that we will need negative blood cultures for 48 hours and then a PICC line can be placed and we can work on discharge planning. She is hopeful to go home and possibly have home health versus outpatient therapy however she does realize that she may need to go to a nursing facility or rehab for physical therapy prior to discharge home. I also discussed with her that her blood sugars are little bit high probably related to infection and acute stress from being hospitalized and they increased her Lantus to help her glycemic control. She voiced understanding. Patient does ask if she can talk to Coco from nursing and I informed the charge nurse for the floor that she wanted to talk to her further. She stated she would pass on the message Objective Data Objective Data Vital Signs: Vital Signs Temp Pulse Resp BP Pulse Ox O2 Del Method O2 Flow Rate 97.7 F L 72 18 130/54 H 98 Room Air 2 06/24/23 10:13 06/24/23 10:13 06/24/23 10:13 06/24/23 10:13 06/24/23 10:13 06/24/23 10:13 06/21/23 14:00 Oxygen Flow Rate (L/min) 2 Oxygen Delivery Method Room Air Weight: 95.8 kg Body Mass Index (BMI) 37.4 Intake & Output: Intake and Output for Last 24 Hours 06/22/23 06/23/23 06/24/23 23:59 23:59 23:59 Intake Total 2029 / 2029 1520 / 1520 1040.75 / 1040.75 Output Total 3400 / 3400 1250 / 2550 1300 / 1300 Balance -1370 / -1370 270 / -1030 -259.25 / -259.25 Lab / Micro Data 06/24/23 06:26 06/24/23 06:26 Labs: Laboratory Results - last 24 hr 06/23/23 05:30: Diff Path Review Reviewed 06/24/23 06:26: WBC 11.8 H, RBC 3.83 L, Hgb 11.6 L, Hct 36.9 L, MCV 96.3, MCH 30.3, MCHC 31.4 L, RDW Std Deviation 44.2 H, RDW Coeff of Patricia 12.4, Plt Count 290, MPV 9.2, Immature Gran % (Auto) 0.800, Neut % (Auto) 67.7, Lymph % (Auto) 16.9 L, [place] % (Auto) 13.0 H, Eos % (Auto) 1.4, Baso % (Auto) 0.2, Absolute Neuts (auto) 8.0 H, Absolute Lymphs (auto) 1.99, Nucleated RBC % 0, Differential Comment SCANNED, Diff Path Review January foll, Sodium 138, Potassium 3.9, Chloride 102, Carbon Dioxide 27.0, Anion Gap 9, BUN 43 H, Creatinine 1.52 H, Estim Creat Clear Calc 31.74, Est GFR (MDRD) Af Amer 45 L, Est GFR (MDRD) Non-Af 37 L, BUN/Creatinine Ratio 28.3 H, Glucose 199 H, Calcium 8.4 L Micro: Microbiology 06/21/23 08:20 Fluid - Synovial (joint) Gram Stain - Final 06/21/23 08:20 Fluid - Synovial (joint) Body Fluid Culture - Preliminary Staphylococcus aureus Alpha hemolytic organism 06/21/23 08:20 Fluid - Synovial (joint) Anaerobic Culture - Final No anaerobic bacteria isolated. 06/21/23 16:30 Blood Culture (Wb) - Right Hand Bacteria Detection (PCR) - Final Staphylococcus aureus 06/21/23 16:30 Blood Culture (Wb) - Right Hand Blood Culture - Final Staphylococcus aureus 06/21/23 15:20 Blood Culture (Wb) - Left Wrist Blood Culture - Preliminary No growth in 48 hours. 06/21/23 13:18 Wound Drainage - Aerobic & Anaerobic Swabs Gram Stain - Final 06/21/23 13:18 Wound Drainage - Aerobic & Anaerobic Swabs Wound Culture - Final Staphylococcus aureus 06/20/23 23:10 Urine, Clean Catch Urine Culture - Final Mixed Gram Pos & Gram Neg Org Rhythm Strip Rhythm Strip: Sinus Rhythm Rate: 75 Ectopy: None Physical Exam Const alert, oriented x3, no apparent distress and well nourished Constitutional Narrative: Obese, upper middle-aged, white female, sitting up in bed watching television patient appears comfortable currently and nontoxic HEENT head/scalp atraumatic and moist oral mucous membranes HEENT Narrative: Mallampati 2-3, no thrush Head and Scalp: normocephalic Resp normal respiratory effort, no retractions, no use of accessory muscles and clear to auscultation bilaterally Auscultation: Negative for rales, rhonchi or wheezes Cardio S1 normal heart sound, S2 normal heart sound, no murmurs, no rub, no gallops and no clicks Cardio Narrative: Rate controlled irregular irregular rhythm GI normal to inspection, nondistended, normoactive bowel sounds, soft to palpation and non-tender Extremity Negative for full ROM Extremity Narrative: Left knee with postoperative Steri-Strips in place, bruising is improving, mild swelling but no erythema or significant pain with palpation Neuro oriented x3, moves all extremities and no focal motor deficits Neuro Narrative: Decreased ability to move left knee due to pain Speech: speech normal Psych affect normal Psych Narrative: Very pleasant, interacts appropriately Assessment & Plan Assessment/Plan (1) Septic joint of left knee joint: (2) Chest pain: QUALIFIERS: Chest pain type: unspecified Qualified Code(s): R07.9 - Chest pain, unspecified (3) Leukocytosis: (4) Hyperkalemia: PLAN: Plan Septic joint left knee secondary to MSSA -Postop day 3 I&D of septic joint left knee -Cefazolin every 8 hours per ID -Continue as needed pain medication -Continue scheduled Tylenol -As needed medication for bowel regimen -Weightbearing as tolerated in knee range of motion -PT/OT following -Patient may need placement or at least home therapy at discharge we will continue to monitor progress with PT and OT if patient needs placed would highly recommend rehab facility as she is highly functional at baseline and also has history of stroke -Blood cultures are positive for Staph aureus as well MSSA bacteremia -Echocardiogram was unremarkable for any valvular vegetations -Repeat blood cultures were drawn yesterday 06/23/2023 and are pending -Once I have negative cultures at 48 hours I will have PICC placed for outpatient antibiotics -If patient does not clear will need ROBERTO -Will need IV antibiotics at discharge Leukocytosis -Continues to trend down--> 11.8 -Continue antibiotics DM-2 -Blood sugars appear to be trending down with improved infection control and now the acute stress from surgery is over -Fasting is 1199 this morning -We will continue to monitor -At baseline patient appears to be well controlled as hemoglobin A1c was 7.4 on 06/21/2023 -Patient is on Farxiga at baseline we will substitute Jardiance while hospitalized -We will continue home insulin but increase from 12 units to 18 units for now with elevated fasting sugars to help improve glycemic control -Humalog 20 units with meals was reinitiated -SSI high-dose -Accu-Cheks as ordered Persistent atrial fibrillation -Continue home amiodarone -Continue home apixaban -Continue home metoprolol CKD stage IIIb -Baseline serum creatinine appears to be between 1.4 and 1.65 -Renal function is stable and at her baseline range and currently 1.5 to -Suspect baseline renal dysfunction is related to diabetic nephropathy Hyponatremia -Resolved Hyperlipidemia -Continue home atorvastatin Insomnia -Continue home trazodone Obesity -BMI 37.4 -Would benefit from weight loss -Complicates treatment, prognosis, outcomes DVT prophylaxis -Continue home Eliquis CODE STATUS -Full code Charges/Coding Visit Charges Inpatient E&M: 89336 Subs Hosp L2
[2023-06-24 13:27] LABS: Pathologist Review Reviewed
--- NOTE | 2023-06-24 21:00 | PCM.PN.ORT ---
Subjective Subjective Doing well, post op left knee I and D for septic joint after cortisone injection. Feeling a bit better. Saw the patient yesterday and today. Objective Data Objective Data Vital Signs: Vital Signs Temp Pulse Resp BP Pulse Ox O2 Del Method O2 Flow Rate 97.8 F 77 16 129/64 H 98 Room Air 2 06/24/23 17:34 06/24/23 17:34 06/24/23 17:34 06/24/23 17:34 06/24/23 17:34 06/24/23 17:34 06/21/23 14:00 Oxygen Flow Rate (L/min) 2 Oxygen Delivery Method Room Air Weight: 211 lb 3.245 oz Body Mass Index (BMI) 37.4 Intake & Output: Intake and Output for Last 24 Hours 06/22/23 06/23/23 06/24/23 23:59 23:59 23:59 Intake Total 2029 / 2029 1520 / 1520 1950.75 / 1950.75 Output Total 3400 / 3400 1250 / 2550 3150 / 3150 Balance -1370 / -1370 270 / -1030 -1199.25 / -1199.25 Lab / Micro Data Attestation: I reviewed the patient's lab results. 06/24/23 06:26 06/24/23 06:26 Labs: Laboratory Results - last 24 hr 06/23/23 05:30: Diff Path Review Reviewed 06/24/23 06:26: WBC 11.8 H, RBC 3.83 L, Hgb 11.6 L, Hct 36.9 L, MCV 96.3, MCH 30.3, MCHC 31.4 L, RDW Std Deviation 44.2 H, RDW Coeff of Patricia 12.4, Plt Count 290, MPV 9.2, Immature Gran % (Auto) 0.800, Neut % (Auto) 67.7, Lymph % (Auto) 16.9 L, [place] % (Auto) 13.0 H, Eos % (Auto) 1.4, Baso % (Auto) 0.2, Absolute Neuts (auto) 8.0 H, Absolute Lymphs (auto) 1.99, Nucleated RBC % 0, Differential Comment SCANNED, Diff Path Review Reviewed, Sodium 138, Potassium 3.9, Chloride 102, Carbon Dioxide 27.0, Anion Gap 9, BUN 43 H, Creatinine 1.52 H, Estim Creat Clear Calc 31.74, Est GFR (MDRD) Af Amer 45 L, Est GFR (MDRD) Non-Af 37 L, BUN/Creatinine Ratio 28.3 H, Glucose 199 H, Calcium 8.4 L Micro: Microbiology 06/21/23 08:20 Fluid - Synovial (joint) Gram Stain - Final 06/21/23 08:20 Fluid - Synovial (joint) Body Fluid Culture - Preliminary Staphylococcus aureus Alpha Hemolytic Streptococcus 06/21/23 08:20 Fluid - Synovial (joint) Anaerobic Culture - Final No anaerobic bacteria isolated. 06/21/23 16:30 Blood Culture (Wb) - Right Hand Bacteria Detection (PCR) - Final Staphylococcus aureus 06/21/23 16:30 Blood Culture (Wb) - Right Hand Blood Culture - Final Staphylococcus aureus 06/21/23 15:20 Blood Culture (Wb) - Left Wrist Blood Culture - Preliminary No growth in 48 hours. 06/21/23 13:18 Wound Drainage - Aerobic & Anaerobic Swabs Gram Stain - Final 06/21/23 13:18 Wound Drainage - Aerobic & Anaerobic Swabs Wound Culture - Final Staphylococcus aureus 06/20/23 23:10 Urine, Clean Catch Urine Culture - Final Mixed Gram Pos & Gram Neg Org Rhythm Strip Rhythm Strip: Sinus Rhythm Rate: 75 Ectopy: None Physical Exam Extremity Extremity Narrative: no change to physical exam, portals ok, NVI, ROM 10-80. Assessment & Plan Assessment/Plan (1) Septic joint of left knee joint: PLAN: 63 F L septic knee, will continue to follow. Agree with ancef given MSSA. (2) MSSA bacteremia:
[2023-06-24] MEDS: traZODone 100 MG Tablet PO (21:55)
[2023-06-24] MEDS: DULoxetine Hcl 60 MG Capsule 120 MG PO (21:55)
[2023-06-24] MEDS: Atorvastatin Calcium 40 MG Tablet PO (21:55)
[2023-06-24] MEDS: Insulin Glargine-YFGN 100 UNIT/ML Pen 18 UNIT SC (22:02)
[2023-06-25 02:59] VITALS: BP 141/60; PULSE 70; RESP 18; TEMP 36.6; O2SAT 100
[2023-06-25] MEDS: Acetaminophen 500 MG Tablet 1000 MG PO ×3 (05:16→21:24)
[2023-06-25] MEDS: Senna/Docusate Sodium 1 Tablet 2 TABLET PO ×2 (05:17→14:32)
[2023-06-25] MEDS: Cefazolin 2 GM in 0.9% Normal Saline (100mL Bag) 100 ML IV ×3 (05:18→21:21)
[2023-06-25] MEDS: Insulin Lispro 100 UNIT/ML INSULN.PEN SC ×3 (08:13→17:01)
[2023-06-25 08:38] LABS: Absolute Lymphocyte Count 1.96 X10^3/uL (0.83-4.51); Absolute Neutrophil Count 7.4 X10^3/uL (2.0-7.7); Basophil# 0.03 X10^3/uL; Basophil% 0.3 % (0-1); Eosinophil# 0.25 X10^3/uL; Eosinophils% 2.3 % (0-5); Hematocrit 37.4 % (37-47); Hemoglobin 11.4 g/dL (12.0-15.0); Lymphocyte # 1.96 X10^3/ul (0.83-4.51); Lymphocyte % 17.7 % (19-41); Mean Corp Hgb Conc 30.5 g/dL (32-36); Mean Corpuscular Hgb 29.8 pg (27.0-32.0); Mean Corpuscular Volume 97.9 fL (81-99); Mean Platelet Vol. 9.3 fl (6.2-12.0); Monocyte# 1.35 X10^3/uL; Monocyte% 12.2 % (0-10); NRBC Flagged by Analyzer 0 % (0-5); Neutrophil % 66.6 % (47-70); Platelet Count 314 K/mm3 (150-450); RBC Distribution Width CV 12.4 % (11.6-14.6); RBC Distribution Width SD 44.3 fl (35.1-43.9); Red Blood Count 3.82 M/mm3 (4.2-5.4); White Blood Count 11.1 K/mm3 (4.4-11.0)
[2023-06-25 08:58] LABS: Anion Gap 6 (5-15); BUN 35 mg/dL (7-18); BUN/Creat Ratio 27.1 RATIO (10-20); Calcium,Total 8.6 mg/dL (8.5-10.1); Chloride 103 mmol/L (98-107); Creatinine, Serum 1.29 mg/dL (0.55-1.02); EST Glomerular Filtration Rate 45 mL/min (>60); Est Glom Filt Rate - Afr Amer 54 mL/min (>60); Glucose 153 mg/dL (74-106); Potassium 3.7 mmol/L (3.5-5.1); Sodium Level 137 mmol/L (136-145)
[2023-06-25 10:30] VITALS: BP 155/68; PULSE 74; RESP 16; TEMP 36.5; O2SAT 98
[2023-06-25] MEDS: oxyCODONE 5 MG Tablet PO ×2 (10:35→14:33)
[2023-06-25] MEDS: APIXABAN 5 MG TABLET PO ×2 (10:38→21:23)
[2023-06-25] MEDS: Magnesium Chloride 64 MG Delay Rel.Tablet 128 MG PO (10:38)
[2023-06-25] MEDS: Amiodarone 200 MG Tablet PO (10:38)
[2023-06-25] MEDS: Furosemide 40 MG Tablet PO (10:38)
[2023-06-25] MEDS: Empagliflozin 25 MG Tablet PO (10:38)
[2023-06-25 10:39] VITALS: BP 155/68; PULSE 74
[2023-06-25] MEDS: Metoprolol(XL)Succ 50 MG Tablet PO (10:39)
--- NOTE | 2023-06-25 11:15 | PCM.PN.HOSP ---
Reason for Visit Reason for Visit: Left knee pain, swelling, inability ambulate Subjective Subjective Patient reports she had a good night overall. States that she feels like she is slowly doing more with therapy. No significant issues or complaints. Objective Data Objective Data Vital Signs: Vital Signs Temp Pulse Resp BP Pulse Ox O2 Del Method O2 Flow Rate 97.7 F L 74 16 155/68 H 98 Room Air 2 06/25/23 10:30 06/25/23 10:39 06/25/23 10:30 06/25/23 10:39 06/25/23 10:30 06/25/23 10:30 06/21/23 14:00 Oxygen Flow Rate (L/min) 2 Oxygen Delivery Method Room Air Weight: 95.8 kg Body Mass Index (BMI) 37.4 Intake & Output: Intake and Output for Last 24 Hours 06/23/23 06/24/23 06/25/23 23:59 23:59 23:59 Intake Total 1520 / 1520 2060.75 / 2060.75 110 / 110 Output Total 1250 / 2550 3850 / 3850 1100 / 1100 Balance 270 / -1030 -1789.25 / -1789.25 -990 / -990 Lab / Micro Data 06/25/23 08:28 06/25/23 08:28 Labs: Laboratory Results - last 24 hr 06/24/23 06:26: Diff Path Review Reviewed 06/25/23 08:28: WBC 11.1 H, RBC 3.82 L, Hgb 11.4 L, Hct 37.4, MCV 97.9, MCH 29.8, MCHC 30.5 L, RDW Std Deviation 44.3 H, RDW Coeff of Patricia 12.4, Plt Count 314, MPV 9.3, Immature Gran % (Auto) 0.900, Neut % (Auto) 66.6, Lymph % (Auto) 17.7 L, Mcdowell % (Auto) 12.2 H, Eos % (Auto) 2.3, Baso % (Auto) 0.3, Absolute Neuts (auto) 7.4, Absolute Lymphs (auto) 1.96, Nucleated RBC % 0, Sodium 137, Potassium 3.7, Chloride 103, Carbon Dioxide 28.0, Anion Gap 6, BUN 35 H, Creatinine 1.29 H, Estim Creat Clear Calc 37.40, Est GFR (MDRD) Af Amer 54 L, Est GFR (MDRD) Non-Af 45 L, BUN/Creatinine Ratio 27.1 H, Glucose 153 H, Calcium 8.6 Micro: Microbiology 06/21/23 13:18 Wound Drainage - Aerobic & Anaerobic Swabs Gram Stain - Final 06/21/23 13:18 Wound Drainage - Aerobic & Anaerobic Swabs Wound Culture - Final Staphylococcus aureus 06/21/23 13:18 Wound Drainage - Aerobic & Anaerobic Swabs Anaerobic Culture - Preliminary 06/21/23 08:20 Fluid - Synovial (joint) Gram Stain - Final 06/21/23 08:20 Fluid - Synovial (joint) Body Fluid Culture - Preliminary Staphylococcus aureus Alpha Hemolytic Streptococcus 06/21/23 08:20 Fluid - Synovial (joint) Anaerobic Culture - Final No anaerobic bacteria isolated. 06/21/23 16:30 Blood Culture (Wb) - Right Hand Bacteria Detection (PCR) - Final Staphylococcus aureus 06/21/23 16:30 Blood Culture (Wb) - Right Hand Blood Culture - Final Staphylococcus aureus 06/21/23 15:20 Blood Culture (Wb) - Left Wrist Blood Culture - Preliminary No growth in 48 hours. 06/20/23 23:10 Urine, Clean Catch Urine Culture - Final Mixed Gram Pos & Gram Neg Org Rhythm Strip Rhythm Strip: Sinus Rhythm Rate: 75 Ectopy: None Physical Exam Const alert, oriented x3, no apparent distress and well nourished Constitutional Narrative: Obese, upper middle-aged, white female, sitting up in bed watching television patient, appears comfortable currently and nontoxic HEENT head/scalp atraumatic and moist oral mucous membranes HEENT Narrative: Mallampati 2-3, no thrush Head and Scalp: normocephalic Resp normal respiratory effort, no retractions, no use of accessory muscles and clear to auscultation bilaterally Auscultation: Negative for rales, rhonchi or wheezes Cardio S1 normal heart sound, S2 normal heart sound, no murmurs, no rub, no gallops and no clicks Cardio Narrative: Rate controlled irregular irregular rhythm GI normal to inspection, nondistended, normoactive bowel sounds, soft to palpation and non-tender Extremity no clubbing, cyanosis or edema; Negative for full ROM Extremity Narrative: Left knee with mild swelling, movement seems to be better but still painful Neuro oriented x3, moves all extremities and no focal motor deficits Speech: speech normal Psych affect normal Psych Narrative: Very pleasant, interacts appropriately Assessment & Plan Assessment/Plan (1) Septic joint of left knee joint: (2) Chest pain: QUALIFIERS: Chest pain type: unspecified Qualified Code(s): R07.9 - Chest pain, unspecified (3) Leukocytosis: (4) Hyperkalemia: PLAN: Plan Septic joint left knee secondary to MSSA -Postop day 4 I&D of septic joint left knee -Cefazolin every 8 hours per ID -Continue as needed pain medication -Continue scheduled Tylenol -As needed medication for bowel regimen -Weightbearing as tolerated in knee range of motion -PT/OT following -Patient may need placement or at least home therapy at discharge we will continue to monitor progress with PT and OT if patient needs placed would highly recommend rehab facility as she is highly functional at baseline and also has history of stroke MSSA bacteremia -Echocardiogram was unremarkable for any valvular vegetations -Repeat blood cultures were drawn 06/23/2023 and are pending -Once I have negative cultures at 48 hours I will have PICC placed for outpatient antibiotics -If patient does not clear will need ROBERTO -Will need IV antibiotics at discharge Leukocytosis -Continues to trend down--> 11.1 -Continue antibiotics DM-2 -Blood sugars appear to be trending down with improved infection control and now the acute stress from surgery is over -Fasting is 153 this morning -We will continue to monitor -At baseline patient appears to be well controlled as hemoglobin A1c was 7.4 on 06/21/2023 -Patient is on Farxiga at baseline we will substitute Jardiance while hospitalized -Continue Lantus 18 units -Humalog 20 units with meals was reinitiated -SSI high-dose -Accu-Cheks as ordered Persistent atrial fibrillation -Continue home amiodarone -Continue home apixaban -Continue home metoprolol CKD stage IIIb -Baseline serum creatinine appears to be between 1.4 and 1.65 -Renal function is stable and at her baseline range and currently 1.29 -Suspect baseline renal dysfunction is related to diabetic nephropathy Hypertension -Can toe wall -Blood pressures have consistently been elevated and patient is not on an YOEL inhibitor at baseline -We will add low-dose lisinopril 10 mg and continue to monitor -Lisinopril will be beneficial for her for blood pressure as well as for renal protection with her diabetes history -No documented allergy Hyperlipidemia -Continue home atorvastatin Insomnia -Continue home trazodone Obesity -BMI 37.4 -Would benefit from weight loss -Complicates treatment, prognosis, outcomes DVT prophylaxis -Continue home Eliquis CODE STATUS -Full code Charges/Coding Visit Charges Inpatient E&M: 58085 Subs Hosp L2
[2023-06-25] MEDS: Insulin Lispro 100 UNIT/ML INSULN.PEN 20 UNIT SC ×2 (11:33→17:02)
[2023-06-25 14:23] VITALS: BP 169/87; PULSE 88; RESP 16; TEMP 37.4; O2SAT 100
[2023-06-25] MEDS: Ferrous Sulfate 325 MG Tablet PO (14:32)
[2023-06-25] MEDS: 0.9% Saline Lock 10 ML Syringe IV ×3 (14:39→21:22)
[2023-06-25] MEDS: Ondansetron 4 MG/2 ML Vial IV (15:20)
[2023-06-25 21:09] VITALS: BP 135/74; PULSE 80; RESP 16; TEMP 36.4; O2SAT 98
[2023-06-25] MEDS: DULoxetine Hcl 60 MG Capsule 120 MG PO (21:22)
[2023-06-25] MEDS: Insulin Glargine-YFGN 100 UNIT/ML Pen 18 UNIT SC (21:23)
[2023-06-25] MEDS: traZODone 100 MG Tablet PO (21:23)
[2023-06-25] MEDS: Atorvastatin Calcium 40 MG Tablet PO (21:24)
[2023-06-25 21:34] VITALS: BP 135/74; PULSE 80; RESP 16; TEMP 36.4; O2SAT 98
[2023-06-26 04:29] VITALS: BP 130/69; PULSE 75; PULSE 79; RESP 16; TEMP 36.7; O2SAT 98
[2023-06-26] MEDS: Cefazolin 2 GM in 0.9% Normal Saline (100mL Bag) 100 ML IV ×3 (06:06→22:06)
[2023-06-26] MEDS: Acetaminophen 500 MG Tablet 1000 MG PO ×3 (06:07→22:07)
[2023-06-26 06:22] LABS: Absolute Lymphocyte Count 2.05 X10^3/uL (0.83-4.51); Absolute Neutrophil Count 8.7 X10^3/uL (2.0-7.7); Basophil# 0.03 X10^3/uL; Basophil% 0.2 % (0-1); Eosinophils% 1.6 % (0-5); Hematocrit 38.3 % (37-47); Hemoglobin 12.2 g/dL (12.0-15.0); Lymphocyte # 2.05 X10^3/ul (0.83-4.51); Mean Corp Hgb Conc 31.9 g/dL (32-36); Mean Corpuscular Hgb 30.8 pg (27.0-32.0); Mean Corpuscular Volume 96.7 fL (81-99); Mean Platelet Vol. 9.1 fl (6.2-12.0); Monocyte# 1.73 X10^3/uL; Monocyte% 13.5 % (0-10); NRBC Flagged by Analyzer 0 % (0-5); Neutrophil # 8.68 X10^3/uL (2.7-7.7); Neutrophil % 67.6 % (47-70); POSITIVE DIFFERENTIAL YES; Platelet Count 318 K/mm3 (150-450); RBC Distribution Width CV 12.2 % (11.6-14.6); RBC Distribution Width SD 43.5 fl (35.1-43.9); Red Blood Count 3.96 M/mm3 (4.2-5.4); White Blood Count 12.8 K/mm3 (4.4-11.0)
[2023-06-26 06:24] LABS: Differential Indicated SCAN CRITERIA MET
[2023-06-26 07:11] LABS: Anion Gap 9 (5-15); BUN 32 mg/dL (7-18); BUN/Creat Ratio 24.6 RATIO (10-20); Chloride 102 mmol/L (98-107); EST Glomerular Filtration Rate 44 mL/min (>60); Est Glom Filt Rate - Afr Amer 53 mL/min (>60); Estimated Creatinine Clearance 37.12 ml/min; Glucose 200 mg/dL (74-106); Sodium Level 137 mmol/L (136-145)
[2023-06-26] MEDS: Insulin Lispro 100 UNIT/ML INSULN.PEN SC ×2 (08:09→11:37)
[2023-06-26] MEDS: oxyCODONE 5 MG Tablet PO ×2 (08:10→14:05)
[2023-06-26] MEDS: Insulin Lispro 100 UNIT/ML INSULN.PEN 20 UNIT SC ×2 (08:10→11:37)
[2023-06-26 09:59] LABS: Differential Comment SCANNED
[2023-06-26 10:06] VITALS: BP 139/63; PULSE 82; RESP 16; TEMP 36.3; O2SAT 99
[2023-06-26] MEDS: Amiodarone 200 MG Tablet PO (10:15)
[2023-06-26] MEDS: Empagliflozin 25 MG Tablet PO (10:15)
[2023-06-26] MEDS: Losartan Potassium 25 MG Tablet PO (10:15)
[2023-06-26] MEDS: APIXABAN 5 MG TABLET PO ×2 (10:15→22:07)
[2023-06-26] MEDS: Furosemide 40 MG Tablet PO (10:15)
[2023-06-26 10:16] VITALS: BP 139/63; PULSE 82
[2023-06-26] MEDS: Metoprolol(XL)Succ 50 MG Tablet PO (10:16)
[2023-06-26] MEDS: Magnesium Chloride 64 MG Delay Rel.Tablet 128 MG PO (10:16)
--- NOTE | 2023-06-26 11:21 | PN.HOSP_ITS ---
Reason for Visit Reason for Visit: Left knee pain and swelling/inability to ambulate Subjective Subjective Patient states no issues overnight. She did stated she try to push herself a little yesterday and was sore. The ice seems to help considerably. She feels she will probably need to go for some rehab prior to going home. I did discuss the case management would be in tomorrow and we can start that process if that needs to happen. Blood cultures are negative at 48 hours so I did discuss with her also that we will have her PICC line placed either today or tomorrow. She voiced understanding. Objective Data Objective Data Vital Signs: Vital Signs Temp Pulse Resp BP Pulse Ox O2 Del Method O2 Flow Rate 97.4 F L 82 16 139/63 H 99 Room Air 2 06/26/23 10:06 06/26/23 10:16 06/26/23 10:06 06/26/23 10:16 06/26/23 10:06 06/26/23 10:06 06/21/23 14:00 Oxygen Flow Rate (L/min) 2 Oxygen Delivery Method Room Air Weight: 95.8 kg Body Mass Index (BMI) 37.4 Intake & Output: Intake and Output for Last 24 Hours 06/24/23 06/25/23 06/26/23 23:59 23:59 23:59 Intake Total 2060.75 / 2060.75 810 / 810 110 / 110 Output Total 3850 / 3850 4500 / 4500 1200 / 1200 Balance -1789.25 / -1789.25 -3690 / -3690 -1090 / -1090 Lab / Micro Data 06/26/23 05:54 06/26/23 05:54 Labs: Laboratory Results - last 24 hr 06/26/23 05:54: WBC 12.8 H, RBC 3.96 L, Hgb 12.2, Hct 38.3, MCV 96.7, MCH 30.8, MCHC 31.9 L, RDW Std Deviation 43.5, RDW Coeff of Patricia 12.2, Plt Count 318, MPV 9.1, Immature Gran % (Auto) 1.100 H, Neut % (Auto) 67.6, Lymph % (Auto) 16.0 L, Medina % (Auto) 13.5 H, Eos % (Auto) 1.6, Baso % (Auto) 0.2, Absolute Neuts (auto) 8.7 H, Absolute Lymphs (auto) 2.05, Nucleated RBC % 0, Differential Comment SCANNED, Sodium 137, Potassium 4.0, Chloride 102, Carbon Dioxide 26.0, Anion Gap 9, BUN 32 H, Creatinine 1.30 H, Estim Creat Clear Calc 37.12, Est GFR (MDRD) Af Amer 53 L, Est GFR (MDRD) Non-Af 44 L, BUN/Creatinine Ratio 24.6 H, Glucose 200 H, Calcium 9.0 Micro: Microbiology 06/24/23 12:15 Blood Culture (Wb) - Anticubital Left Blood Culture - Preliminary No growth in 48 hours. 06/21/23 13:18 Wound Drainage - Aerobic & Anaerobic Swabs Gram Stain - Final 06/21/23 13:18 Wound Drainage - Aerobic & Anaerobic Swabs Wound Culture - Final Staphylococcus aureus 06/21/23 13:18 Wound Drainage - Aerobic & Anaerobic Swabs Anaerobic Culture - Final No anaerobic bacteria isolated. 06/21/23 08:20 Fluid - Synovial (joint) Gram Stain - Final 06/21/23 08:20 Fluid - Synovial (joint) Body Fluid Culture - Final Staphylococcus aureus Streptococcus mitis 06/21/23 08:20 Fluid - Synovial (joint) Anaerobic Culture - Final No anaerobic bacteria isolated. 06/23/23 08:35 Blood Culture (Wb) - Anticubital Left Blood Culture - Preliminary No growth in 48 hours. 06/23/23 07:57 Blood Culture (Wb) - Anticubital Left Blood Culture - Preliminary No growth in 48 hours. 06/21/23 16:30 Blood Culture (Wb) - Right Hand Bacteria Detection (PCR) - Fi nal Staphylococcus aureus 06/21/23 16:30 Blood Culture (Wb) - Right Hand Blood Culture - Final Staphylococcus aureus 06/21/23 15:20 Blood Culture (Wb) - Left Wrist Blood Culture - Preliminary No growth in 48 hours. 06/20/23 23:10 Urine, Clean Catch Urine Culture - Final Mixed Gram Pos & Gram Neg Org Rhythm Strip Rhythm Strip: Sinus Rhythm Rate: 75 Ectopy: None Physical Exam Const alert, oriented x3, no apparent distress and well nourished Constitutional Narrative: Obese, upper middle-aged, white female, working with physical therapy, appears comfortable currently and nontoxic, ambulates gingerly with a walker HEENT head/scalp atraumatic and moist oral mucous membranes HEENT Narrative: Mallampati 2-3, no thrush Head and Scalp: normocephalic Resp normal respiratory effort, no retractions, no use of accessory muscles and clear to auscultation bilaterally Auscultation: Negative for rales, rhonchi or wheezes Cardio S1 normal heart sound, S2 normal heart sound, no murmurs, no rub, no gallops and no clicks Cardio Narrative: Rate controlled irregular irregular rhythm GI normal to inspection, nondistended, normoactive bowel sounds, soft to palpation and non-tender Extremity no clubbing, cyanosis or edema; Negative for full ROM Extremity Narrative: Left knee with mild swelling, movement seems to be better but still painful- patient tends to guard, ambulates with min assist to contact-guard assist with [employer] today Neuro oriented x3, moves all extremities and no focal motor deficits Neuro Narrative: Decreased ability to move left knee due to pain Speech: speech normal Psych affect normal Psych Narrative: Very pleasant, interacts appropriately Assessment & Plan Assessment/Plan (1) Septic joint of left knee joint: (2) Chest pain: QUALIFIERS: Chest pain type: unspecified Qualified Code(s): R07.9 - Chest pain, unspecified (3) Leukocytosis: (4) Hyperkalemia: PLAN: Plan Septic joint left knee secondary to MSSA -Postop day 5 I&D of septic joint left knee -Cefazolin every 8 hours per ID -Continue as needed pain medication -Continue scheduled Tylenol -As needed medication for bowel regimen -Weightbearing as tolerated in knee range of motion -PT/OT following -After observing therapy services today with the patient I do anticipate the patient would benefit from a rehab stay after discharge to push range of motion and to help her with mobility/ADLs/IADLs MSSA bacteremia -Echocardiogram was unremarkable for any valvular vegetations -Repeat blood cultures were drawn 06/23/2023 and are negative at 48 hours -PICC line ordered -Will need IV antibiotics at discharge Leukocytosis -Continues to trend down--> still slightly elevated but overall stable -Continue antibiotics DM-2 -Blood sugars appear to be trending down with improved infection control and now the acute stress from surgery is over -Fasting is 200 this morning -We will continue to monitor -At baseline patient appears to be well controlled as hemoglobin A1c was 7.4 on 06/21/2023 -Patient is on Farxiga at baseline we will substitute Jardiance while hospitalized -Continue Lantus but will increase to 22 units a day for improved glycemic control -Humalog 20 units with meals -SSI high-dose -Accu-Cheks as ordered Persistent atrial fibrillation -Continue home amiodarone -Continue home apixaban -Continue home metoprolol CKD stage IIIb -Baseline serum creatinine appears to be between 1.4 and 1.65 -Renal function is stable and at her baseline range and currently 1.30 -Suspect baseline renal dysfunction is related to diabetic nephropathy Hypertension -Continue home metoprolol -I added lisinopril yesterday as it was not documented as an allergy however when we went to give it to the patient she reported this was discontinued previo usly for cough -Start losartan 25 mg daily yesterday and blood pressures do appear to be improved -Continue to trend Hyperlipidemia -Continue home atorvastatin Insomnia -Continue home trazodone Obesity -BMI 37.4 -Would benefit from weight loss -Complicates treatment, prognosis, outcomes DVT prophylaxis -Continue home Eliquis CODE STATUS -Full code Charges/Coding Visit Charges Inpatient E&M: 47294 Subs Hosp L2
[2023-06-26] MEDS: Ferrous Sulfate 325 MG Tablet PO (11:37)
[2023-06-26] MEDS: 0.9% Saline Lock 10 ML Syringe IV (14:05)
[2023-06-26 16:03] VITALS: BP 143/74; PULSE 83; RESP 16; TEMP 36.6; O2SAT 100
[2023-06-26 22:03] VITALS: BP 141/72; PULSE 79; RESP 16; TEMP 36.6; O2SAT 100
[2023-06-26] MEDS: traZODone 100 MG Tablet PO (22:06)
[2023-06-26] MEDS: DULoxetine Hcl 60 MG Capsule 120 MG PO (22:06)
[2023-06-26] MEDS: Atorvastatin Calcium 40 MG Tablet PO (22:07)
[2023-06-26] MEDS: Insulin Glargine-YFGN 100 UNIT/ML Pen 22 UNIT SC (22:07)
[2023-06-27] VITALS: BP 151/74; PULSE 79; RESP 16; TEMP 36.5; O2SAT 99
[2023-06-27 06:00] VITALS: BP 104/56; PULSE 79; RESP 16; TEMP 37.1; O2SAT 100
[2023-06-27 06:00] LABS: Absolute Neutrophil Count 10.8 X10^3/uL (2.0-7.7); Basophil# 0.04 X10^3/uL; Basophil% 0.3 % (0-1); Eosinophil# 0.12 X10^3/uL; Eosinophils% 0.8 % (0-5); Hematocrit 36.9 % (37-47); Hemoglobin 11.5 g/dL (12.0-15.0); Lymphocyte % 14.7 % (19-41); Mean Corp Hgb Conc 31.2 g/dL (32-36); Mean Corpuscular Hgb 30.2 pg (27.0-32.0); Mean Corpuscular Volume 96.9 fL (81-99); Monocyte# 1.64 X10^3/uL; NRBC Flagged by Analyzer 0 % (0-5); Neutrophil # 10.76 X10^3/uL (2.7-7.7); Neutrophil % 72.1 % (47-70); POSITIVE DIFFERENTIAL YES; Platelet Count 337 K/mm3 (150-450); RBC Distribution Width CV 12.4 % (11.6-14.6); RBC Distribution Width SD 44.2 fl (35.1-43.9); Red Blood Count 3.81 M/mm3 (4.2-5.4); White Blood Count 14.9 K/mm3 (4.4-11.0)
[2023-06-27 06:04] LABS: Differential Indicated SCAN CRITERIA MET
[2023-06-27] MEDS: Cefazolin 2 GM in 0.9% Normal Saline (100mL Bag) 100 ML IV ×3 (06:08→22:00)
[2023-06-27] MEDS: Acetaminophen 500 MG Tablet 1000 MG PO ×3 (06:11→22:02)
[2023-06-27 06:30] LABS: Anion Gap 7 (5-15); BUN 32 mg/dL (7-18); BUN/Creat Ratio 25.4 RATIO (10-20); Calcium,Total 8.8 mg/dL (8.5-10.1); Chloride 101 mmol/L (98-107); Creatinine, Serum 1.26 mg/dL (0.55-1.02); EST Glomerular Filtration Rate 46 mL/min (>60); Est Glom Filt Rate - Afr Amer 55 mL/min (>60); Estimated Creatinine Clearance 38.29 ml/min; Glucose 195 mg/dL (74-106); Potassium 3.7 mmol/L (3.5-5.1); Sodium Level 135 mmol/L (136-145)
[2023-06-27 08:01] VITALS: BP 127/61; PULSE 76; RESP 18; TEMP 36.3; O2SAT 98
[2023-06-27] MEDS: Insulin Lispro 100 UNIT/ML INSULN.PEN SC ×3 (08:04→16:19)
[2023-06-27] MEDS: Insulin Lispro 100 UNIT/ML INSULN.PEN 20 UNIT SC ×3 (08:04→16:18)
[2023-06-27] MEDS: APIXABAN 5 MG TABLET PO ×2 (08:05→22:01)
[2023-06-27] MEDS: Amiodarone 200 MG Tablet PO (08:05)
[2023-06-27] MEDS: Magnesium Chloride 64 MG Delay Rel.Tablet 128 MG PO (08:05)
[2023-06-27] MEDS: Furosemide 40 MG Tablet PO (08:05)
[2023-06-27] MEDS: Losartan Potassium 25 MG Tablet PO (08:05)
[2023-06-27 08:06] VITALS: BP 127/61; PULSE 76
[2023-06-27] MEDS: Metoprolol(XL)Succ 50 MG Tablet PO (08:06)
[2023-06-27] MEDS: Ferrous Sulfate 325 MG Tablet PO (08:06)
[2023-06-27] MEDS: Empagliflozin 25 MG Tablet PO (08:06)
[2023-06-27] MEDS: oxyCODONE 5 MG Tablet PO ×2 (08:09→12:11)
--- NOTE | 2023-06-27 09:29 | CASEMGMT ---
SW reviewed patient's therapy notes. Patient told therapy she does not feel she can do 3 hours of therapy. SW met with patient. SW explained to patient that [facility] has 2 units. TCU does not take Medicaid. The other unit is [facility] Rehab Unit and she would have to do 3 hrs of therapy per day. Patient said she cannot do that right away. SW told patient she would need to pick a different facility on the list SW provided to her. Patient was not sure so she was going to try and call her at work. SW will check back with patient. Zena Torre [employer] [place]ORGINA
--- NOTE | 2023-06-27 10:05 | CASEMGMT ---
SW went back to patient's room and patient's first choice for SNF is [facility] and second would be [place]. ROLDAN asked Delores hand/c business continuity planning director to please send referrals. Zena ERICKSON
--- NOTE | 2023-06-27 10:20 | CASEMGMT ---
Discharge Planning Referral sent to [facility]. Delores Villafuerte, Discharge Planning Asst.
--- NOTE | 2023-06-27 11:24 | CASEMGMT ---
Discharge Planning Patient has been accepted by [facility]. Asked that precert be started. SW updated. Delores Villafuerte, Discharge Planning Asst.
--- NOTE | 2023-06-27 11:25 | CASEMGMT ---
SW spoke w/pt, she confirmed her is POA, SW asked her to have him bring in the documents as able. Pt states understanding. HAILEY Erazo
--- NOTE | 2023-06-27 11:42 | CASEMGMT ---
ROLDAN let patient know that [facility] is able to take her at discharge. ROLDAN explained to patient that she will stay at [facility] until her insurance approves her. Zena ERICKSON
[2023-06-27] MEDS: Polyethylene Glycol 3350 17 GM PACKET PO (12:01)
[2023-06-27] MEDS: Senna/Docusate Sodium 1 Tablet 2 TABLET PO (12:01)
[2023-06-27 15:23] VITALS: BP 135/59; PULSE 74; RESP 16; TEMP 36.7; O2SAT 100
--- NOTE | 2023-06-27 15:24 | CASEMGMT ---
Discharge Planning IV order sent to [facility] via [facility]. Delores Villafuerte, Discharge Planning Asst.
--- NOTE | 2023-06-27 15:32 | PN_ITS ---
Subjective Subjective Patient seen and examined. She had no active complaints. Pain in her knee was fairly well controlled. Review of systems was otherwise negative. She is awaiting placement Objective Data Objective Data Vital Signs: Vital Signs Temp Pulse Resp BP Pulse Ox O2 Del Method O2 Flow Rate 98.1 F 74 16 135/59 H 100 Room Air 2 06/27/23 15:23 06/27/23 15:23 06/27/23 15:23 06/27/23 15:23 06/27/23 15:23 06/27/23 15:23 06/21/23 14:00 Oxygen Flow Rate (L/min) 2 Oxygen Delivery Method Room Air Weight: 211 lb 3.245 oz Body Mass Index (BMI) 37.4 Intake & Output: Intake and Output for Last 24 Hours 06/25/23 06/26/23 06/27/23 23:59 23:59 23:59 Intake Total 810 / 810 330 / 330 350 / 350 Output Total 4500 / 4500 2800 / 2800 800 / 800 Balance -3690 / -3690 -2470 / -2470 -450 / -450 Lab / Micro Data 06/27/23 05:15 06/27/23 05:15 Labs: Laboratory Results - last 24 hr 06/26/23 05:54: Diff Path Review January foll 06/27/23 05:15: WBC 14.9 H, RBC 3.81 L, Hgb 11.5 L, Hct 36.9 L, MCV 96.9, MCH 30.2, MCHC 31.2 L, RDW Std Deviation 44.2 H, RDW Coeff of Patricia 12.4, Plt Count 337, MPV 9.0, Immature Gran % (Auto) 1.100 H, Neut % (Auto) 72.1 H, Lymph % (Auto) 14.7 L, Baxter % (Auto) 11.0 H, Eos % (Auto) 0.8, Baso % (Auto) 0.3, Absolute Neuts (auto) 10.8 H, Absolute Lymphs (auto) 2.20, Nucleated RBC % 0, Diff Path Review January, Sodium 135 L, Potassium 3.7, Chloride 101, Carbon Dioxide 27.0, Anion Gap 7, BUN 32 H, Creatinine 1.26 H, Estim Creat Clear Calc 38.29, Est GFR (MDRD) Af Amer 55 L, Est GFR (MDRD) Non-Af 46 L, BUN/Creatinine Ratio 25.4 H, Glucose 195 H, Calcium 8.8 Micro: Microbiology 06/21/23 15:20 Blood Culture (Wb) - Left Wrist Blood Culture - Final No growth in 5 days. 06/24/23 12:15 Blood Culture (Wb) - Anticubital Left Blood Culture - Preliminary No growth in 48 hours. 06/21/23 13:18 Wound Drainage - Aerobic & Anaerobic Swabs Gram Stain - Final 06/21/23 13:18 Wound Drainage - Aerobic & Anaerobic Swabs Wound Culture - Final Staphylococcus aureus 06/21/23 13:18 Wound Drainage - Aerobic & Anaerobic Swabs Anaerobic Culture - Final No anaerobic bacteria isolated. 06/21/23 08:20 Fluid - Synovial (joint) Gram Stain - Final 06/21/23 08:20 Fluid - Synovial (joint) Body Fluid Culture - Final Staphylococcus aureus Streptococcus mitis 06/21/23 08:20 Fluid - Synovial (joint) Anaerobic Culture - Final No anaerobic bacteria isolated. 06/23/23 08:35 Blood Culture (Wb) - Anticubital Left Blood Culture - Preliminary No growth in 48 hours. 06/23/23 07:57 Blood Culture (Wb) - Anticubital Left Blood Culture - Preliminary No growth in 48 hours. 06/21/23 16:30 Blood Culture (Wb) - Right Hand Bacteria Detection (PCR) - Final Staphylococcus aureus 06/21/23 16:30 Blood Culture (Wb) - Right Hand Blood Culture - Final Staphylococcus aureus 06/20/23 23:10 Urine, Clean Catch Urine Culture - Final Mixed Gram Pos & Gram Neg Org Rhythm Strip Rhythm Strip: Sinus Rhythm Rate: 75 Ectopy: None Physical Exam Const alert, oriented x3 and no apparent distress General Appearance: cooperative HEENT normocephalic, head/scalp atraumatic, moist oral mucous membranes and oropharynx normal Eyes PERRL and EOMs intact bilaterally Neck no lymphadenopathy and supple Lymph Lymphatic: no lymphadenopathy noted Resp normal respiratory effort, normal air movement and clear to auscultation bilaterally Cardio regular rate, regular rhythm, S1 normal heart sound, S2 normal heart sound and no murmurs GI normal to inspection, nondistended, normoactive bowel sounds, soft to palpation, non-tender and non-distended Extremity normal capillary refill and no clubbing, cyanosis or edema Extremity Narrative: intact dressing over the left knee at I&D site General Extremity: no tenderness to palpation of joints or extremities Skin General Skin Exam: no breakdown Neuro CN's II-XII intact bilaterally, no focal motor deficits and no sensory deficits noted Motor Exam: strength 5/5 throughout and general weakness Psych thought process normal, cooperative and affect normal Appearance: appropriate Assessment & Plan Assessment/Plan (1) MSSA bacteremia: (2) Septic joint of left knee joint: PLAN: Plan #Septic arthritis of left knee due to MSSA * today is POD 5 of I7D * on IV cefazolin * ID and orthopedics on board * PT/OT on board * fall precautions * on PO tylenol and PO oxycodone prn * #MSSA bacteremia * blood cultures grew MSSA * repeat blood cultures negative * on IV cefazolin * ID on board. 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 Last A1c on 06/21/2023 was 7.4. Insulin sliding scale. Accu- Cheks ACHS. * On Lantus 18 units daily. * #Persistent A-fib: On amiodarone and metoprolol. On Eliquis. #CKD stage IIIb: Creatinine at baseline. Will monitor. #Hypertension: On lisinopril. IV hydralazine as needed. #Hyperlipidemia: On statin #DVT prophylaxis: On Eliquis. Disposition: Awaiting placement. Charges/Coding Visit Charges Inpatient E&M: 60185 Subs Hosp L2
--- NOTE | 2023-06-27 17:00 | PCM.PN.ID ---
Physical Exam Narrative Feeling ok, leg sore, no fever, no n/v/d. Const alert and no apparent distress General Appearance: cooperative Resp normal air movement and clear to auscultation bilaterally Cardio regular rate and regular rhythm GI soft to palpation, non-tender and non-distended Skin Skin Narrative: LLE wrapped ID ID: Route of nutrition/ use of supplements: [] Nutritional Intake: [] IV Site: [] Castaneda Catheter: [] Assessment & Plan Assessment/Plan (1) Septic joint of left knee joint: PLAN: Aspiration and then OR 06/21/[address] Moreno. From OR sample, no crystals seen, wbc 219k, 92% neutrophils, cx showing gram pos. Cx with MSSA, now bcx also with mssa per pcr. Cont cefazolin. TTE showed no veg and repeat bcx cleared 06/23/23. Will order picc, 4 weeks iv cefazolin, stop date 07/21/23 with weekly labs, ID followup in 2 weeks. Will follow (2) MSSA bacteremia:
[2023-06-27] MEDS: 0.9% Saline Lock 10 ML Syringe IV (22:00)
[2023-06-27] MEDS: Insulin Glargine-YFGN 100 UNIT/ML Pen 22 UNIT SC (22:01)
[2023-06-27] MEDS: DULoxetine Hcl 60 MG Capsule 120 MG PO (22:01)
[2023-06-27] MEDS: traZODone 100 MG Tablet PO (22:01)
[2023-06-27] MEDS: Atorvastatin Calcium 40 MG Tablet PO (22:02)
[2023-06-27 22:07] VITALS: BP 123/57; PULSE 74; RESP 16; TEMP 36.9; O2SAT 100
[2023-06-28 04:09] VITALS: BP 133/68; PULSE 66; RESP 16; TEMP 36.6; O2SAT 96
[2023-06-28 05:55] LABS: Absolute Lymphocyte Count 2.67 X10^3/uL (0.83-4.51); Absolute Neutrophil Count 8.2 X10^3/uL (2.0-7.7); Basophil# 0.07 X10^3/uL; Basophil% 0.5 % (0-1); Eosinophils% 2.3 % (0-5); Hematocrit 36.5 % (37-47); Hemoglobin 11.3 g/dL (12.0-15.0); Lymphocyte # 2.67 X10^3/ul (0.83-4.51); Lymphocyte % 20.4 % (19-41); Mean Corpuscular Hgb 30.1 pg (27.0-32.0); Mean Corpuscular Volume 97.3 fL (81-99); Monocyte# 1.61 X10^3/uL; Monocyte% 12.3 % (0-10); NRBC Flagged by Analyzer 0 % (0-5); Neutrophil # 8.22 X10^3/uL (2.7-7.7); POSITIVE DIFFERENTIAL YES; Platelet Count 345 K/mm3 (150-450); RBC Distribution Width CV 12.2 % (11.6-14.6); RBC Distribution Width SD 43.3 fl (35.1-43.9); Red Blood Count 3.75 M/mm3 (4.2-5.4); White Blood Count 13.1 K/mm3 (4.4-11.0)
[2023-06-28] MEDS: Acetaminophen 500 MG Tablet 1000 MG PO ×3 (05:55→21:52)
[2023-06-28] MEDS: Cefazolin 2 GM in 0.9% Normal Saline (100mL Bag) 100 ML IV ×3 (05:55→21:44)
[2023-06-28 05:57] LABS: Differential Indicated SCAN CRITERIA MET
[2023-06-28] MEDS: 0.9% Saline Lock 10 ML Syringe IV ×2 (05:57→21:45)
[2023-06-28 06:20] LABS: Anion Gap 6 (5-15); BUN 38 mg/dL (7-18); BUN/Creat Ratio 27.3 RATIO (10-20); Calcium,Total 8.8 mg/dL (8.5-10.1); Chloride 103 mmol/L (98-107); Creatinine, Serum 1.39 mg/dL (0.55-1.02); EST Glomerular Filtration Rate 41 mL/min (>60); Est Glom Filt Rate - Afr Amer 49 mL/min (>60); Estimated Creatinine Clearance 34.71 ml/min; Glucose 150 mg/dL (74-106); Potassium 3.8 mmol/L (3.5-5.1); Sodium Level 136 mmol/L (136-145)
--- NOTE | 2023-06-28 08:04 | PN.ORTHO_ITS ---
Subjective Subjective POD many L knee I and D for septic joint. Doing a bit better, but feels like will need rehab services. (seen yesterday) Objective Data Objective Data Vital Signs: Vital Signs Temp Pulse Resp BP Pulse Ox O2 Del Method O2 Flow Rate 97.8 F 66 16 133/68 H 96 Room Air 2 06/28/23 04:09 06/28/23 04:09 06/28/23 04:09 06/28/23 04:09 06/28/23 04:09 06/28/23 04:10 06/21/23 14:00 Oxygen Flow Rate (L/min) 2 Oxygen Delivery Method Room Air Weight: 211 lb 3.245 oz Body Mass Index (BMI) 37.4 Intake & Output: Intake and Output for Last 24 Hours 06/26/23 06/27/23 06/28/23 23:59 23:59 23:59 Intake Total 330 / 330 570 / 870 610 / 610 Output Total 2800 / 2800 1150 / 1650 1200 / 1200 Balance -2470 / -2470 -580 / -780 -590 / -590 Lab / Micro Data Attestation: I reviewed the patient's lab results. 06/28/23 05:47 06/28/23 05:47 Labs: Laboratory Results - last 24 hr 06/28/23 05:47: WBC 13.1 H, RBC 3.75 L, Hgb 11.3 L, Hct 36.5 L, MCV 97.3, MCH 30.1, MCHC 31.0 L, RDW Std Deviation 43.3, RDW Coeff of Patricia 12.2, Plt Count 345, MPV 9.0, Immature Gran % (Auto) 1.500 H, Neut % (Auto) 63.0, Lymph % (Auto) 20.4, [place] % (Auto) 12.3 H, Eos % (Auto) 2.3, Baso % (Auto) 0.5, Absolute Neuts (auto) 8.2 H, Absolute Lymphs (auto) 2.67, Nucleated RBC % 0, Diff Path Review May , Sodium 136, Potassium 3.8, Chloride 103, Carbon Dioxide 27.0, Anion Gap 6, BUN 38 H, Creatinine 1.39 H, Estim Creat Clear Calc 34.71, Est GFR (MDRD) Af Amer 49 L, Est GFR (MDRD) Non-Af 41 L, BUN/Creatinine Ratio 27.3 H, Glucose 150 H, Calcium 8.8 Micro: Microbiology 06/21/23 15:20 Blood Culture (Wb) - Left Wrist Blood Culture - Final No growth in 5 days. 06/24/23 12:15 Blood Culture (Wb) - Anticubital Left Blood Culture - Preliminary No growth in 48 hours. 06/21/23 13:18 Wound Drainage - Aerobic & Anaerobic Swabs Gram Stain - Final 06/21/23 13:18 Wound Drainage - Aerobic & Anaerobic Swabs Wound Culture - Final Staphylococcus aureus 06/21/23 13:18 Wound Drainage - Aerobic & Anaerobic Swabs Anaerobic Culture - Final No anaerobic bacteria isolated. 06/21/23 08:20 Fluid - Synovial (joint) Gram Stain - Final 06/21/23 08:20 Fluid - Synovial (joint) Body Fluid Culture - Final Staphylococcus aureus Streptococcus mitis 06/21/23 08:20 Fluid - Synovial (joint) Anaerobic Culture - Final No anaerobic bacteria isolated. 06/23/23 08:35 Blood Culture (Wb) - Anticubital Left Blood Culture - Preliminary No growth in 48 hours. 06/23/23 07:57 Blood Culture (Wb) - Anticubital Left Blood Culture - Preliminary No growth in 48 hours. 06/21/23 16:30 Blood Culture (Wb) - Right Hand Bacteria Detection (PCR) - Final Staphylococcus aureus 06/21/23 16:30 Blood Culture (Wb) - Right Hand Blood Culture - Final Staphylococcus aureus 06/20/23 23:10 Urine, Clean Catch Urine Culture - Final Mixed Gram Pos & Gram Neg Org Rhythm Strip Rhythm Strip: Sinus Rhythm Rate: 75 Ectopy: None Physical Exam Const alert and no apparent distress General Appearance: cooperative and well developed Extremity normal capillary refill Extremity Narrative: knee appears less swollen, portals normal, rom 0-90, nvi General Extremity: Negative for atrophy or calf tenderness Assessment & Plan Assessment/Plan (1) Septic joint of left knee joint: PLAN: CCM, will follow, abx per ID (pending PICC line).
[2023-06-28 08:34] VITALS: BP 123/66; PULSE 77; RESP 16; TEMP 36.8; O2SAT 98
[2023-06-28] MEDS: Insulin Lispro 100 UNIT/ML INSULN.PEN 20 UNIT SC ×3 (08:47→16:32)
[2023-06-28] MEDS: Insulin Lispro 100 UNIT/ML INSULN.PEN SC ×2 (08:48→11:14)
[2023-06-28] MEDS: Losartan Potassium 25 MG Tablet PO (08:49)
[2023-06-28] MEDS: Amiodarone 200 MG Tablet PO (08:49)
[2023-06-28] MEDS: Empagliflozin 25 MG Tablet PO (08:49)
[2023-06-28] MEDS: Furosemide 40 MG Tablet PO (08:49)
[2023-06-28] MEDS: APIXABAN 5 MG TABLET PO ×2 (08:49→21:52)
[2023-06-28 08:50] VITALS: BP 123/66; PULSE 77
[2023-06-28] MEDS: Magnesium Chloride 64 MG Delay Rel.Tablet 128 MG PO (08:50)
[2023-06-28] MEDS: Metoprolol(XL)Succ 50 MG Tablet PO (08:50)
[2023-06-28] MEDS: Polyethylene Glycol 3350 17 GM PACKET PO (08:50)
[2023-06-28 09:54] LABS: Pathologist Review Reviewed
[2023-06-28 09:57] LABS: Pathologist Review Reviewed
[2023-06-28] MEDS: Ferrous Sulfate 325 MG Tablet PO (11:13)
[2023-06-28] MEDS: Senna/Docusate Sodium 1 Tablet 2 TABLET PO (11:14)
--- NOTE | 2023-06-28 12:49 | CHAPLAIN ---
Type of Pastoral Visit _x__ Initial Visit ___ Follow-up Visit ___ On-call Visit ___ General Patient Visit ___ Spiritual Assessment ___ Family Conference ___ Bereavement ___ Rapid Response ___ Code Blue ___ Other (describe below) Pastoral Care Referral From _x__ Patient ___ Family ___ Nurse ___ Physician ___ Scow Derrick Operator ___ Machine Setter Supervisor ___ Other (describe below) Sacrament/Intervention _x__ Active listening ___ Anointing ___ Latter-Day ___ Bereavement ___ Communion ___ Kendra exploration ___ ___ Life review _x__ Prayer ___ Reconciliation ___ Sacrament of Sick _x__ Supportive presence ___ Wedding ___ Other (describe below) Pastoral Comments patient gives review of her current health concern and then explains that in the previous year she spent six months in the hospital recovering from a stroke; pt recounts the trauma that she felt after that long of a stay in hospital/rehab and how difficult it was to endure that emotionally at the end; pt admits to some anxiety or fears about staying in the hospital and her recovery time; pt states that her animals are her therapy and she wants to go back to her [place]; pt also is able to identify another source of strength which comes knowing that people are praying for me; pt is offered support and more prayer
[2023-06-28 14:30] VITALS: BP 133/71; PULSE 80; RESP 16; TEMP 36.3; O2SAT 100
--- NOTE | 2023-06-28 14:50 | PCM.PN.ORT ---
Subjective Subjective Up to washroom today more independent Objective Data Objective Data Vital Signs: Vital Signs Temp Pulse Resp BP Pulse Ox O2 Del Method O2 Flow Rate 98.2 F 77 16 123/66 H 98 Room Air 2 06/28/23 08:34 06/28/23 08:50 06/28/23 08:34 06/28/23 08:50 06/28/23 08:34 06/28/23 08:37 06/21/23 14:00 Oxygen Flow Rate (L/min) 2 Oxygen Delivery Method Room Air Weight: 211 lb 3.245 oz Body Mass Index (BMI) 37.4 Intake & Output: Intake and Output for Last 24 Hours 06/26/23 06/27/23 06/28/23 23:59 23:59 23:59 Intake Total 330 / 330 570 / 870 1090 / 1090 Output Total 2800 / 2800 1150 / 1650 1500 / 1500 Balance -2470 / -2470 -580 / -780 -410 / -410 Lab / Micro Data Attestation: I reviewed the patient's lab results. 06/28/23 05:47 06/28/23 05:47 Labs: Laboratory Results - last 24 hr 06/26/23 05:54: Diff Path Review Reviewed 06/27/23 05:15: Diff Path Review Reviewed 06/28/23 05:47: WBC 13.1 H, RBC 3.75 L, Hgb 11.3 L, Hct 36.5 L, MCV 97.3, MCH 30.1, MCHC 31.0 L, RDW Std Deviation 43.3, RDW Coeff of Patricia 12.2, Plt Count 345, MPV 9.0, Immature Gran % (Auto) 1.500 H, Neut % (Auto) 63.0, Lymph % (Auto) 20.4, [place] % (Auto) 12.3 H, Eos % (Auto) 2.3, Baso % (Auto) 0.5, Absolute Neuts (auto) 8.2 H, Absolute Lymphs (auto) 2.67, Nucleated RBC % 0, Diff Path Review May , Sodium 136, Potassium 3.8, Chloride 103, Carbon Dioxide 27.0, Anion Gap 6, BUN 38 H, Creatinine 1.39 H, Estim Creat Clear Calc 34.71, Est GFR (MDRD) Af Amer 49 L, Est GFR (MDRD) Non-Af 41 L, BUN/Creatinine Ratio 27.3 H, Glucose 150 H, Calcium 8.8 Micro: Microbiology 06/23/23 08:35 Blood Culture (Wb) - Anticubital Left Blood Culture - Final No growth in 5 days. 06/23/23 07:57 Blood Culture (Wb) - Anticubital Left Blood Culture - Final No growth in 5 days. 06/21/23 15:20 Blood Culture (Wb) - Left Wrist Blood Culture - Final No growth in 5 days. 06/24/23 12:15 Blood Culture (Wb) - Anticubital Left Blood Culture - Preliminary No growth in 48 hours. 06/21/23 13:18 Wound Drainage - Aerobic & Anaerobic Swabs Gram Stain - Final 06/21/23 13:18 Wound Drainage - Aerobic & Anaerobic Swabs Wound Culture - Final Staphylococcus aureus 06/21/23 13:18 Wound Drainage - Aerobic & Anaerobic Swabs Anaerobic Culture - Final No anaerobic bacteria isolated. 06/21/23 08:20 Fluid - Synovial (joint) Gram Stain - Final 06/21/23 08:20 Fluid - Synovial (joint) Body Fluid Culture - Final Staphylococcus aureus Streptococcus mitis 06/21/23 08:20 Fluid - Synovial (joint) Anaerobic Culture - Final No anaerobic bacteria isolated. 06/21/23 16:30 Blood Culture (Wb) - Right Hand Bacteria Detection (PCR) - Final Staphylococcus aureus 06/21/23 16:30 Blood Culture (Wb) - Right Hand Blood Culture - Final Staphylococcus aureus 06/20/23 23:10 Urine, Clean Catch Urine Culture - Final Mixed Gram Pos & Gram Neg Org Rhythm Strip Rhythm Strip: Sinus Rhythm Rate: 75 Ectopy: None Physical Exam Extremity Extremity Narrative: no change to exam Assessment & Plan Assessment/Plan (1) MSSA bacteremia: PLAN: CCM. Pending picc line. FU 2 weeks in office. (2) Septic joint of left knee joint:
--- NOTE | 2023-06-28 15:09 | PN_ITS ---
Subjective Subjective Patient seen and examined. She complains of constipation but otherwise had no other complaints. Review of systems otherwise negative. He has remained hemodynamically stable. Objective Data Objective Data Vital Signs: Vital Signs Temp Pulse Resp BP Pulse Ox O2 Del Method O2 Flow Rate 98.2 F 77 16 123/66 H 98 Room Air 2 06/28/23 08:34 06/28/23 08:50 06/28/23 08:34 06/28/23 08:50 06/28/23 08:34 06/28/23 08:37 06/21/23 14:00 Oxygen Flow Rate (L/min) 2 Oxygen Delivery Method Room Air Weight: 211 lb 3.245 oz Body Mass Index (BMI) 37.4 Intake & Output: Intake and Output for Last 24 Hours 06/26/23 06/27/23 06/28/23 23:59 23:59 23:59 Intake Total 330 / 330 570 / 870 1200 / 1200 Output Total 2800 / 2800 1150 / 1650 1500 / 1500 Balance -2470 / -2470 -580 / -780 -300 / -300 Lab / Micro Data 06/28/23 05:47 06/28/23 05:47 Labs: Laboratory Results - last 24 hr 06/26/23 05:54: Diff Path Review Reviewed 06/27/23 05:15: Diff Path Review Reviewed 06/28/23 05:47: WBC 13.1 H, RBC 3.75 L, Hgb 11.3 L, Hct 36.5 L, MCV 97.3, MCH 30.1, MCHC 31.0 L, RDW Std Deviation 43.3, RDW Coeff of Patricia 12.2, Plt Count 345, MPV 9.0, Immature Gran % (Auto) 1.500 H, Neut % (Auto) 63.0, Lymph % (Auto) 20.4, [place] % (Auto) 12.3 H, Eos % (Auto) 2.3, Baso % (Auto) 0.5, Absolute Neuts (auto) 8.2 H, Absolute Lymphs (auto) 2.67, Nucleated RBC % 0, Diff Path Review May foll, Sodium 136, Potassium 3.8, Chloride 103, Carbon Dioxide 27.0, Anion Gap 6, BUN 38 H, Creatinine 1.39 H, Estim Creat Clear Calc 34.71, Est GFR (MDRD) Af Amer 49 L, Est GFR (MDRD) Non-Af 41 L, BUN/Creatinine Ratio 27.3 H, Glucose 150 H, Calcium 8.8 Micro: Microbiology 06/23/23 08:35 Blood Culture (Wb) - Anticubital Left Blood Culture - Final No growth in 5 days. 06/23/23 07:57 Blood Culture (Wb) - Anticubital Left Blood Culture - Final No growth in 5 days. 06/21/23 15:20 Blood Culture (Wb) - Left Wrist Blood Culture - Final No growth in 5 days. 06/24/23 12:15 Blood Culture (Wb) - Anticubital Left Blood Culture - Preliminary No growth in 48 hours. 06/21/23 13:18 Wound Drainage - Aerobic & Anaerobic Swabs Gram Stain - Final 06/21/23 13:18 Wound Drainage - Aerobic & Anaerobic Swabs Wound Culture - Final Staphylococcus aureus 06/21/23 13:18 Wound Drainage - Aerobic & Anaerobic Swabs Anaerobic Culture - Final No anaerobic bacteria isolated. 06/21/23 08:20 Fluid - Synovial (joint) Gram Stain - Final 06/21/23 08:20 Fluid - Synovial (joint) Body Fluid Culture - Final Staphylococcus aureus Streptococcus mitis 06/21/23 08:20 Fluid - Synovial (joint) Anaerobic Culture - Final No anaerobic bacteria isolated. 06/21/23 16:30 Blood Culture (Wb) - Right Hand Bacteria Detection (PCR) - Final Staphylococcus aureus 06/21/23 16:30 Blood Culture (Wb) - Right Hand Blood Culture - Final Staphylococcus aureus 06/20/23 23:10 Urine, Clean Catch Urine Culture - Final Mixed Gram Pos & Gram Neg Org Rhythm Strip Rhythm Strip: Sinus Rhythm Rate: 75 Ectopy: None Physical Exam Const alert, oriented x3, no apparent distress and well nourished General Appearance: cooperative HEENT normocephalic, head/scalp atraumatic, moist oral mucous membranes and oropharynx normal Eyes PERRL and EOMs intact bilaterally Neck no lymphadenopathy and supple Lymph Lymphatic: no lymphadenopathy noted Resp normal respiratory effort, normal air movement, no retractions, no use of accessory muscles and clear to auscultation bilaterally Auscultation: Negative for rales, rhonchi or wheezes Cardio regular rate, regular rhythm, S1 normal heart sound, S2 normal heart sound, no murmurs, no rub, no gallops and no clicks GI normal to inspection, nondistended, normoactive bowel sounds, soft to palpation, non-tender and non-distended Extremity normal capillary refill and no clubbing, cyanosis or edema; Negative for full ROM Extremity Narrative: intact dressing over the left knee at I&D site General Extremity: no tenderness to palpation of joints or extremities Skin General Skin Exam: no breakdown Neuro oriented x3, CN's II-XII intact bilaterally, moves all extremities, no focal m otor deficits and no sensory deficits noted Neuro Narrative: Decreased ability to move left knee due to pain Speech: speech normal Motor Exam: general weakness Psych thought process normal, cooperative and affect normal Appearance: appropriate Assessment & Plan Assessment/Plan (1) MSSA bacteremia: (2) Septic joint of left knee joint: PLAN: Plan #Septic arthritis of left knee due to MSSA * today is POD 6 of I&D * on IV cefazolin * ID and orthopedics on board * PT/OT on board * fall precautions * on PO tylenol and PO oxycodone prn * #MSSA bacteremia * blood cultures grew MSSA * repeat blood cultures negative * on IV cefazolin * ID on board. * needs PICC line for halfway IV antibiotics * #Type 2 diabetes mellitus: * On Farxiga. Last A1c on 06/21/2023 was 7.4. Insulin sliding scale. Accu- Cheks ACHS. * On Lantus 18 units daily. * #Persistent A-fib: On amiodarone and metoprolol. On Eliquis. #CKD stage IIIb: Creatinine at baseline. Will monitor. #Hypertension: On lisinopril. IV hydralazine as needed. #Hyperlipidemia: On statin #DVT prophylaxis: On Eliquis. Disposition: Awaiting placement. Charges/Coding Visit Charges Inpatient E&M: 43909 Subs Hosp L2
[2023-06-28] MEDS: Fleet Enema 1 ML RC (16:30)
[2023-06-28 20:09] VITALS: BP 140/73; PULSE 77; RESP 16; TEMP 36.9
[2023-06-28] MEDS: DULoxetine Hcl 60 MG Capsule 120 MG PO (21:51)
[2023-06-28] MEDS: traZODone 100 MG Tablet PO (21:52)
[2023-06-28] MEDS: Atorvastatin Calcium 40 MG Tablet PO (21:52)
[2023-06-28] MEDS: Insulin Glargine-YFGN 100 UNIT/ML Pen 22 UNIT SC (21:54)
[2023-06-28 22:40] LABS: Bedside Glucose 154 mg/dL (74-106)
[2023-06-29 04:22] VITALS: BP 144/65; PULSE 72; RESP 18; TEMP 36.5
[2023-06-29] MEDS: Cefazolin 2 GM in 0.9% Normal Saline (100mL Bag) 100 ML IV ×3 (06:23→20:39)
[2023-06-29] MEDS: Acetaminophen 500 MG Tablet 1000 MG PO ×3 (06:23→20:45)
[2023-06-29] MEDS: 0.9% Saline Lock 10 ML Syringe IV ×3 (06:28→20:40)
[2023-06-29 06:42] LABS: Absolute Lymphocyte Count 1.99 X10^3/uL (0.83-4.51); Absolute Neutrophil Count 12.1 X10^3/uL (2.0-7.7); Basophil# 0.07 X10^3/uL; Basophil% 0.4 % (0-1); Eosinophils% 1.2 % (0-5); Hematocrit 34.5 % (37-47); Hemoglobin 10.7 g/dL (12.0-15.0); Lymphocyte # 1.99 X10^3/ul (0.83-4.51); Lymphocyte % 12.3 % (19-41); Mean Corpuscular Hgb 30.4 pg (27.0-32.0); Monocyte# 1.57 X10^3/uL; Monocyte% 9.7 % (0-10); NRBC Flagged by Analyzer 0 % (0-5); Neutrophil # 12.14 X10^3/uL (2.7-7.7); Neutrophil % 75.4 % (47-70); POSITIVE DIFFERENTIAL YES; Platelet Count 348 K/mm3 (150-450); RBC Distribution Width CV 12.4 % (11.6-14.6); RBC Distribution Width SD 43.8 fl (35.1-43.9); Red Blood Count 3.52 M/mm3 (4.2-5.4); White Blood Count 16.1 K/mm3 (4.4-11.0)
[2023-06-29 06:44] LABS: Differential Indicated SCAN CRITERIA MET
[2023-06-29 07:10] LABS: Anion Gap 6 (5-15); BUN 34 mg/dL (7-18); BUN/Creat Ratio 25.6 RATIO (10-20); Calcium,Total 8.9 mg/dL (8.5-10.1); Chloride 104 mmol/L (98-107); Creatinine, Serum 1.33 mg/dL (0.55-1.02); EST Glomerular Filtration Rate 43 mL/min (>60); Est Glom Filt Rate - Afr Amer 52 mL/min (>60); Estimated Creatinine Clearance 36.28 ml/min; Glucose 175 mg/dL (74-106); Potassium 4.1 mmol/L (3.5-5.1); Sodium Level 137 mmol/L (136-145)
[2023-06-29] MEDS: Insulin Lispro 100 UNIT/ML INSULN.PEN 20 UNIT SC ×2 (07:57→11:49)
[2023-06-29 08:18] LABS: Bedside Glucose 166 mg/dL (74-106)
[2023-06-29 09:20] VITALS: BP 123/54; PULSE 82; RESP 18; TEMP 36.5; O2SAT 97
[2023-06-29 09:29] VITALS: PULSE 82
[2023-06-29] MEDS: Amiodarone 200 MG Tablet PO (09:29)
[2023-06-29] MEDS: Furosemide 40 MG Tablet PO (09:29)
[2023-06-29] MEDS: Metoprolol(XL)Succ 50 MG Tablet PO (09:29)
[2023-06-29] MEDS: APIXABAN 5 MG TABLET PO ×2 (09:29→20:43)
[2023-06-29] MEDS: Magnesium Chloride 64 MG Delay Rel.Tablet 128 MG PO (09:29)
[2023-06-29] MEDS: Empagliflozin 25 MG Tablet PO (09:29)
[2023-06-29] MEDS: Polyethylene Glycol 3350 17 GM PACKET PO (09:30)
[2023-06-29] MEDS: Losartan Potassium 25 MG Tablet PO (09:30)
--- NOTE | 2023-06-29 11:48 | NURSING ---
pt jose a continuous glucose 169
[2023-06-29] MEDS: Ferrous Sulfate 325 MG Tablet PO (11:49)
[2023-06-29] MEDS: Insulin Lispro 100 UNIT/ML INSULN.PEN SC (11:49)
[2023-06-29 12:59] LABS: Pathologist Review Reviewed
--- NOTE | 2023-06-29 14:21 | PN_ITS ---
Subjective Subjective Patient seen and examined. She had no active complaints and had an uneventful night. She did have constipation yesterday and says she still feels constipated. Review of systems otherwise negative. Objective Data Objective Data Vital Signs: Vital Signs Temp Pulse Resp BP Pulse Ox O2 Del Method O2 Flow Rate 97.7 F L 82 18 123/54 H 97 Room Air 2 06/29/23 09:20 06/29/23 09:29 06/29/23 09:20 06/29/23 09:20 06/29/23 09:20 06/29/23 09:20 06/21/23 14:00 Oxygen Flow Rate (L/min) 2 Oxygen Delivery Method Room Air Weight: 211 lb 3.245 oz Body Mass Index (BMI) 37.4 Intake & Output: Intake and Output for Last 24 Hours 06/27/23 06/28/23 06/29/23 23:59 23:59 23:59 Intake Total 570 / 870 1900 / 1900 830 / 830 Output Total 1150 / 1650 2150 / 2150 350 / 350 Balance -580 / -780 -250 / -250 480 / 480 Lab / Micro Data 06/29/23 06:30 06/29/23 06:30 Labs: Laboratory Results - last 24 hr 06/28/23 05:47: Diff Path Review Reviewed 06/28/23 21:44: POC Glucose 154 H 06/29/23 06:30: WBC 16.1 H, RBC 3.52 L, Hgb 10.7 L, Hct 34.5 L, MCV 98.0, MCH 30.4, MCHC 31.0 L, RDW Std Deviation 43.8, RDW Coeff of Patricia 12.4, Plt Count 348, MPV 9.0, Immature Gran % (Auto) 1.000 H, Neut % (Auto) 75.4 H, Lymph % (Auto) 12.3 L, [place] % (Auto) 9.7, Eos % (Auto) 1.2, Baso % (Auto) 0.4, Absolute Neuts (auto) 12.1 H, Absolute Lymphs (auto) 1.99, Nucleated RBC % 0, Diff Path Review May , Sodium 137, Potassium 4.1, Chloride 104, Carbon Dioxide 27.0, Anion Gap 6, BUN 34 H, Creatinine 1.33 H, Estim Creat Clear Calc 36.28, Est GFR (MDRD) Af Amer 52 L, Est GFR (MDRD) Non-Af 43 L, BUN/Creatinine Ratio 25.6 H, Glucose 175 H, Calcium 8.9 06/29/23 07:54: POC Glucose 166 H Micro: Microbiology 06/24/23 12:15 Blood Culture (Wb) - Anticubital Left Blood Culture - Final No growth in 5 days. 06/23/23 08:35 Blood Culture (Wb) - Anticubital Left Blood Culture - Final No growth in 5 days. 06/23/23 07:57 Blood Culture (Wb) - Anticubital Left Blood Culture - Final No growth in 5 days. 06/21/23 15:20 Blood Culture (Wb) - Left Wrist Blood Culture - Final No growth in 5 days. 06/21/23 13:18 Wound Drainage - Aerobic & Anaerobic Swabs Gram Stain - Final 06/21/23 13:18 Wound Drainage - Aerobic & Anaerobic Swabs Wound Culture - Final Staphylococcus aureus 06/21/23 13:18 Wound Drainage - Aerobic & Anaerobic Swabs Anaerobic Culture - Final No anaerobic bacteria isolated. 06/21/23 08:20 Fluid - Synovial (joint) Gram Stain - Final 06/21/23 08:20 Fluid - Synovial (joint) Body Fluid Culture - Final Staphylococcus aureus Streptococcus mitis 06/21/23 08:20 Fluid - Synovial (joint) Anaerobic Culture - Final No anaerobic bacteria isolated. 06/21/23 16:30 Blood Culture (Wb) - Right Hand Bacteria Detection (PCR) - Final Staphylococcus aureus 06/21/23 16:30 Blood Culture (Wb) - Right Hand Blood Culture - Final Staphylococcus aureus 06/20/23 23:10 Urine, Clean Catch Urine Culture - Final Mixed Gram Pos & Gram Neg Org Rhythm Strip Rhythm Strip: Sinus Rhythm Rate: 75 Ectopy: None Physical Exam Const alert, oriented x3, no apparent distress and well nourished General Appearance: cooperative HEENT normocephalic, head/scalp atraumatic, moist oral mucous membranes and oropharynx normal Eyes PERRL and EOMs intact bilaterally Neck no lymphadenopathy and supple Lymph Lymphatic: no lymphadenopathy noted Resp normal respiratory effort, normal air movement, no retractions, no use of accessory muscles and clear to auscultation bilaterally Auscultation: Negative for rales, rhonchi or wheezes Cardio regular rate, regular rhythm, S1 normal heart sound, S2 normal heart sound, no murmurs, no rub, no gallops and no clicks GI normal to inspection, nondistended, normoactive bowel sounds, soft to palpation, non-tender and non-distended Extremity normal capillary refill and no clubbing, cyanosis or edema; Negative for full ROM Extremity Narrative: intact dressing over the left knee at I&D site General Extremity: no tenderness to palpation of joints or extremities Skin General Skin Exam: no breakdown Neuro oriented x3, CN's II-XII intact bilaterally, moves all extremities, no focal motor deficits and no sensory deficits noted Neuro Narrative: Decreased ability to move left knee due to pain Speech: speech normal Motor Exam: general weakness Psych thought process normal, cooperative and affect normal Appearance: appropriate Assessment & Plan Assessment/Plan (1) MSSA bacteremia: (2) Septic joint of left knee joint: PLAN: Plan #Septic arthritis of left knee due to MSSA * today is POD 7 of I&D * on IV cefazolin * ID and orthopedics on board * PT/OT on board * fall precautions * on PO tylenol and PO oxycodone prn * #MSSA bacteremia * blood cultures grew MSSA * repeat blood cultures negative * on IV cefazolin * ID on board. 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 Last A1c on 06/21/2023 was 7.4. Insulin sliding scale. Accu- Cheks ACHS. * On Lantus 18 units daily. * #Persistent A-fib: On amiodarone and metoprolol. On Eliquis. #CKD stage IIIb: Creatinine at baseline. Will monitor. #Hypertension: On lisinopril. IV hydralazine as needed. #Hyperlipidemia: On statin #DVT prophylaxis: On Eliquis. Disposition: Awaiting placement. Charges/Coding Visit Charges Inpatient E&M: 82442 Subs Hosp L2
[2023-06-29 15:21] LABS: Pathologist Review Reviewed
[2023-06-29 15:35] VITALS: BP 142/68; PULSE 71; RESP 18; TEMP 36.8; O2SAT 100
[2023-06-29 20:34] VITALS: BP 136/69; PULSE 77; RESP 16; TEMP 36.1; O2SAT 98
[2023-06-29] MEDS: DULoxetine Hcl 60 MG Capsule 120 MG PO (20:44)
[2023-06-29] MEDS: traZODone 100 MG Tablet PO (20:44)
[2023-06-29] MEDS: Atorvastatin Calcium 40 MG Tablet PO (20:45)
[2023-06-29] MEDS: Insulin Glargine-YFGN 100 UNIT/ML Pen 22 UNIT SC (20:46)
[2023-06-30 04:00] VITALS: BP 130/64; PULSE 70; RESP 18; TEMP 36.2; O2SAT 97
[2023-06-30] MEDS: Cefazolin 2 GM in 0.9% Normal Saline (100mL Bag) 100 ML IV ×3 (05:03→21:43)
[2023-06-30] MEDS: Acetaminophen 500 MG Tablet 1000 MG PO ×3 (05:03→21:42)
[2023-06-30] MEDS: 0.9% Saline Lock 10 ML Syringe IV ×3 (05:05→14:23)
[2023-06-30 06:08] LABS: Absolute Lymphocyte Count 1.98 X10^3/uL (0.83-4.51); Absolute Neutrophil Count 9.3 X10^3/uL (2.0-7.7); Basophil# 0.06 X10^3/uL; Basophil% 0.5 % (0-1); Eosinophil# 0.15 X10^3/uL; Eosinophils% 1.2 % (0-5); Hematocrit 36.7 % (37-47); Hemoglobin 11.6 g/dL (12.0-15.0); Lymphocyte # 1.98 X10^3/ul (0.83-4.51); Lymphocyte % 15.6 % (19-41); Mean Corp Hgb Conc 31.6 g/dL (32-36); Mean Corpuscular Hgb 30.7 pg (27.0-32.0); Mean Corpuscular Volume 97.1 fL (81-99); Mean Platelet Vol. 9.1 fl (6.2-12.0); Monocyte# 1.07 X10^3/uL; Monocyte% 8.4 % (0-10); NRBC Flagged by Analyzer 0 % (0-5); Neutrophil # 9.32 X10^3/uL (2.7-7.7); Neutrophil % 73.2 % (47-70); Platelet Count 353 K/mm3 (150-450); RBC Distribution Width CV 12.4 % (11.6-14.6); RBC Distribution Width SD 44.2 fl (35.1-43.9); Red Blood Count 3.78 M/mm3 (4.2-5.4); White Blood Count 12.7 K/mm3 (4.4-11.0)
[2023-06-30 06:43] LABS: Anion Gap 7 (5-15); BUN 34 mg/dL (7-18); Calcium,Total 9.1 mg/dL (8.5-10.1); Chloride 105 mmol/L (98-107); Creatinine, Serum 1.48 mg/dL (0.55-1.02); EST Glomerular Filtration Rate 38 mL/min (>60); Est Glom Filt Rate - Afr Amer 46 mL/min (>60); Glucose 201 mg/dL (74-106); Potassium 4.3 mmol/L (3.5-5.1); Sodium Level 137 mmol/L (136-145)
--- NOTE | 2023-06-30 07:35 | NURSING ---
pt jose a continuous monitor glucose level 236
[2023-06-30] MEDS: Insulin Lispro 100 UNIT/ML INSULN.PEN 20 UNIT SC ×2 (07:36→11:30)
[2023-06-30] MEDS: Insulin Lispro 100 UNIT/ML INSULN.PEN SC ×2 (07:36→11:30)
[2023-06-30 09:38] VITALS: BP 131/72; PULSE 82; RESP 18; TEMP 36.4; O2SAT 100
[2023-06-30] MEDS: APIXABAN 5 MG TABLET PO ×2 (09:40→21:41)
[2023-06-30] MEDS: Magnesium Chloride 64 MG Delay Rel.Tablet 128 MG PO (09:40)
[2023-06-30] MEDS: Losartan Potassium 25 MG Tablet PO (09:40)
[2023-06-30 09:41] VITALS: PULSE 82
[2023-06-30] MEDS: Furosemide 40 MG Tablet PO (09:41)
[2023-06-30] MEDS: Metoprolol(XL)Succ 50 MG Tablet PO (09:41)
[2023-06-30] MEDS: Polyethylene Glycol 3350 17 GM PACKET PO (09:41)
[2023-06-30] MEDS: Amiodarone 200 MG Tablet PO (09:41)
[2023-06-30] MEDS: Empagliflozin 25 MG Tablet PO (09:41)
--- NOTE | 2023-06-30 11:05 | CASEMGMT ---
Discharge Planning Updates sent to [facility] via [employer]. Delores Villafuerte, Discharge Planning Asst.
[2023-06-30] MEDS: Ferrous Sulfate 325 MG Tablet PO (11:31)
--- NOTE | 2023-06-30 11:34 | NURSING ---
pt continuous glucose monitor 309
--- NOTE | 2023-06-30 11:45 | PN_ITS ---
Subjective Subjective Patient seen and examined. Still complains of constipation. She has no other complaints today on review of systems otherwise negative. Objective Data Objective Data Vital Signs: Vital Signs Temp Pulse Resp BP Pulse Ox O2 Del Method O2 Flow Rate 97.6 F L 82 18 131/72 H 100 Room Air 2 06/30/23 09:38 06/30/23 09:41 06/30/23 09:38 06/30/23 09:38 06/30/23 09:38 06/30/23 09:38 06/21/23 14:00 Oxygen Flow Rate (L/min) 2 Oxygen Delivery Method Room Air Weight: 211 lb 3.245 oz Body Mass Index (BMI) 37.4 Intake & Output: Intake and Output for Last 24 Hours 06/28/23 06/29/23 06/30/23 23:59 23:59 23:59 Intake Total 1900 / 1900 2270 / 2270 230 / 230 Output Total 2150 / 2150 2200 / 2200 1000 / 1000 Balance -250 / -250 70 / 70 -770 / -770 Lab / Micro Data 06/30/23 05:35 06/30/23 05:35 Labs: Laboratory Results - last 24 hr 06/28/23 05:47: Diff Path Review Reviewed 06/29/23 06:30: Diff Path Review Reviewed 06/30/23 05:35: WBC 12.7 H, RBC 3.78 L, Hgb 11.6 L, Hct 36.7 L, MCV 97.1, MCH 30.7, MCHC 31.6 L, RDW Std Deviation 44.2 H, RDW Coeff of Patricia 12.4, Plt Count 353, MPV 9.1, Immature Gran % (Auto) 1.100 H, Neut % (Auto) 73.2 H, Lymph % (Auto) 15.6 L, [place] % (Auto) 8.4, Eos % (Auto) 1.2, Baso % (Auto) 0.5, Absolute Neuts (auto) 9.3 H, Absolute Lymphs (auto) 1.98, Nucleated RBC % 0, Sodium 137, Potassium 4.3, Chloride 105, Carbon Dioxide 25.0, Anion Gap 7, BUN 34 H, Creatinine 1.48 H, Estim Creat Clear Calc 32.60, Est GFR (MDRD) Af Amer 46 L, Est GFR (MDRD) Non-Af 38 L, BUN/Creatinine Ratio 23.0 H, Glucose 201 H, Calcium 9.1 Micro: Microbiology 06/24/23 12:15 Blood Culture (Wb) - Anticubital Left Blood Culture - Final No growth in 5 days. 06/23/23 08:35 Blood Culture (Wb) - Anticubital Left Blood Culture - Final No growth in 5 days. 06/23/23 07:57 Blood Culture (Wb) - Anticubital Left Blood Culture - Final No growth in 5 days. 06/21/23 15:20 Blood Culture (Wb) - Left Wrist Blood Culture - Final No growth in 5 days. 06/21/23 13:18 Wound Drainage - Aerobic & Anaerobic Swabs Gram Stain - Final 06/21/23 13:18 Wound Drainage - Aerobic & Anaerobic Swabs Wound Culture - Final Staphylococcus aureus 06/21/23 13:18 Wound Drainage - Aerobic & Anaerobic Swabs Anaerobic Culture - Final No anaerobic bacteria isolated. 06/21/23 08:20 Fluid - Synovial (joint) Gram Stain - Final 06/21/23 08:20 Fluid - Synovial (joint) Body Fluid Culture - Final Staphylococcus aureus Streptococcus mitis 06/21/23 08:20 Fluid - Synovial (joint) Anaerobic Culture - Final No anaerobic bacteria isolated. 06/21/23 16:30 Blood Culture (Wb) - Right Hand Bacteria Detection (PCR) - Final Staphylococcus aureus 06/21/23 16:30 Blood Culture (Wb) - Right Hand Blood Culture - Final Staphylococcus aureus 06/20/23 23:10 Urine, Clean Catch Urine Culture - Final Mixed Gram Pos & Gram Neg Org Rhythm Strip Rhythm Strip: Sinus Rhythm Rate: 75 Ectopy: None Physical Exam Const alert, oriented x3, no apparent distress and well nourished General Appearance: cooperative HEENT normocephalic, head/scalp atraumatic, moist oral mucous membranes and oropharynx normal Eyes PERRL and EOMs intact bilaterally Neck no lymphadenopathy and supple Lymph Lymphatic: no lymphadenopathy noted Resp normal respiratory effort, normal air movement, no retractions, no use of accessory muscles and clear to auscultation bilaterally Auscultation: Negative for rales, rhonchi or wheezes Cardio regular rate, regular rhythm, S1 normal heart sound, S2 normal heart sound, no murmurs, no rub, no gallops and no clicks GI normal to inspection, nondistended, normoactive bowel sounds, soft to palpation, non-tender and non-distended Extremity normal capillary refill and no clubbing, cyanosis or edema; Negative for full ROM Extremity Narrative: site of I&D well healed General Extremity: no tenderness to palpation of joints or extremities Skin General Skin Exam: no breakdown Neuro oriented x3, CN's II-XII intact bilaterally, moves all extremities, no focal motor deficits and no sensory deficits noted Speech: speech normal Motor Exam: strength 5/5 throughout and general weakness Psych thought process normal, cooperative and affect normal Appearance: appropriate Assessment & Plan Assessment/Plan (1) MSSA bacteremia: (2) Septic joint of left knee joint: PLAN: Plan #Septic arthritis of left knee due to MSSA * today is POD 8 of I&D * on IV cefazolin * ID and orthopedics on board * PT/OT on board * fall precautions * on PO tylenol and PO oxycodone prn * #MSSA bacteremia * blood cultures grew MSSA * repeat blood cultures negative * on IV cefazolin * ID on board. * PICC line inserted for meterman IV antibiotics * #Constipation: Patient given an enema yesterday which did not help. We will give another enema today and start on lactulose to help with constipation. DC lactulose once constipation is resolved. #Type 2 diabetes mellitus: * On Farxiga. Last A1c on 06/21/2023 was 7.4. Insulin sliding scale. Accu- Cheks ACHS. * On Lantus 18 units daily. * #Persistent A-fib: On amiodarone and metoprolol. On Eliquis. #CKD stage IIIb: Creatinine at baseline. Will monitor. #Hypertension: On lisinopril. IV hydralazine as needed. #Hyperlipidemia: On statin #DVT prophylaxis: On Eliquis. Disposition: Awaiting placement. Charges/Coding Visit Charges Inpatient E&M: 37563 Subs Hosp L2
--- NOTE | 2023-06-30 12:13 | CASEMGMT ---
SW spoke with patient per her request. SW let her know that we are still waiting on insurance. SW did tell patient that [facility] called insurance to ask about the status. Insurance told CC that they have up to a week to make a decision. Plan: d/c to [facility] pending insurance approval. Zena ERICKSON
[2023-06-30] MEDS: Lactulose 20 GM/30 ML UDC PO ×2 (12:53→21:42)
[2023-06-30 16:15] VITALS: BP 135/64; PULSE 69; RESP 18; TEMP 36.5; O2SAT 100
--- NOTE | 2023-06-30 18:25 | CT_ITS ---
STUDY: CT ABDOMEN AND PELVIS WITH CONTRAST REASON FOR EXAM: Female, 63 years old. abdominal pain, rectal bleeding RADIATION DOSAGE (If Supplied By Facility): CTDIvol = ( 16.88 ) mGy, DLP = ( 1393.22 ) mGycm TECHNIQUE: Transaxial images were obtained from the dome of the diaphragm to the symphysis pubis without oral contrast. Oral and amp; IV Gastrografin and amp; 100mL Isovue-300 was administered. Sagittal and coronal images were reconstructed. Individualized dose optimization techniques were used for this CT. COMPARISON: None. FINDINGS: The visualized lung bases are unremarkable. The visualized portions of the heart are within normal limits. Normal liver. Contracted thick-walled gallbladder without calcified stones or pericholecystic edema.. Normal spleen. Normal pancreas. Normal bilateral adrenal glands. Normal right kidney. Normal left kidney. Normal visualized stomach. Normal small intestine. Diffusely distended fecal filled colon with mild rectal impaction. No evidence for acute appendicitis Normal abdominal aorta. Normal inferior vena cava. Normal retroperitoneum. Normal urinary bladder. Uterus not visualized consistent with hysterectomy Tiny bilateral subcentimeter inguinal nodes likely benign. Lumbar spine demonstrates degenerative changes CT/Abdomen/Pelvis WITH Contrast IMPRESSION: Mildly diffusely distended fecal filled colon with rectal impaction.. No evidence for small bowel obstruction or other acute abnormality Electronically Signed: Beck Franco MD at 18:58 EDT ,
[2023-06-30] MEDS: DULoxetine Hcl 60 MG Capsule 120 MG PO (21:41)
[2023-06-30] MEDS: Atorvastatin Calcium 40 MG Tablet PO (21:42)
[2023-06-30] MEDS: traZODone 100 MG Tablet PO (21:42)
[2023-06-30] MEDS: Insulin Glargine-YFGN 100 UNIT/ML Pen 22 UNIT SC (21:43)
[2023-06-30 21:45] VITALS: BP 169/99; PULSE 76; RESP 14; TEMP 36.8; O2SAT 100
[2023-07-01 03:45] VITALS: BP 121/67; PULSE 80; RESP 16; TEMP 36.6; O2SAT 100
[2023-07-01] MEDS: Cefazolin 2 GM in 0.9% Normal Saline (100mL Bag) 100 ML IV ×3 (05:12→23:12)
[2023-07-01] MEDS: Acetaminophen 500 MG Tablet 1000 MG PO ×3 (05:12→23:03)
[2023-07-01] MEDS: Senna/Docusate Sodium 1 Tablet 2 TABLET PO (05:18)
[2023-07-01 05:20] LABS: Absolute Neutrophil Count 9.4 X10^3/uL (2.0-7.7); Basophil% 0.8 % (0-1); Eosinophil# 0.12 X10^3/uL; Eosinophils% 0.9 % (0-5); Hematocrit 36.4 % (37-47); Hemoglobin 11.4 g/dL (12.0-15.0); Lymphocyte % 16.3 % (19-41); Mean Corp Hgb Conc 31.3 g/dL (32-36); Mean Corpuscular Hgb 30.1 pg (27.0-32.0); Monocyte# 1.01 X10^3/uL; Monocyte% 7.8 % (0-10); NRBC Flagged by Analyzer 0 % (0-5); Neutrophil # 9.38 X10^3/uL (2.7-7.7); Platelet Count 367 K/mm3 (150-450); RBC Distribution Width CV 12.5 % (11.6-14.6); RBC Distribution Width SD 43.3 fl (35.1-43.9); Red Blood Count 3.79 M/mm3 (4.2-5.4); White Blood Count 12.9 K/mm3 (4.4-11.0)
[2023-07-01 05:43] LABS: Anion Gap 5 (5-15); BUN 26 mg/dL (7-18); BUN/Creat Ratio 20.3 RATIO (10-20); Calcium,Total 9.2 mg/dL (8.5-10.1); Chloride 103 mmol/L (98-107); Creatinine, Serum 1.28 mg/dL (0.55-1.02); EST Glomerular Filtration Rate 45 mL/min (>60); Est Glom Filt Rate - Afr Amer 54 mL/min (>60); Glucose 196 mg/dL (74-106); Potassium 4.1 mmol/L (3.5-5.1); Sodium Level 137 mmol/L (136-145)
[2023-07-01] MEDS: Insulin Lispro 100 UNIT/ML INSULN.PEN SC ×2 (08:11→11:56)
[2023-07-01] MEDS: Insulin Lispro 100 UNIT/ML INSULN.PEN 20 UNIT SC ×2 (08:12→11:56)
[2023-07-01] MEDS: Amiodarone 200 MG Tablet PO (08:16)
[2023-07-01 08:17] VITALS: BP 162/63; PULSE 82; RESP 18; TEMP 36.5; O2SAT 100
[2023-07-01] MEDS: Losartan Potassium 25 MG Tablet PO (08:20)
[2023-07-01] MEDS: Magnesium Chloride 64 MG Delay Rel.Tablet 128 MG PO (08:21)
[2023-07-01] MEDS: APIXABAN 5 MG TABLET PO ×2 (08:21→23:02)
[2023-07-01] MEDS: Furosemide 40 MG Tablet PO (08:21)
[2023-07-01] MEDS: Empagliflozin 25 MG Tablet PO (08:21)
[2023-07-01 08:22] VITALS: BP 162/63; PULSE 82
[2023-07-01] MEDS: Metoprolol(XL)Succ 50 MG Tablet PO (08:22)
--- NOTE | 2023-07-01 10:17 | CASEMGMT ---
ROLDAN received a voice mail from [facility] ([facility]) regarding medication. SW called back and left a voice mail requesting a return call. Zena ERICKSON
--- NOTE | 2023-07-01 10:35 | NURSING ---
rectum disempacted for lg amt hard stool following instillation urojet. dulcolax then inserted. pt to BR w/1 assist and walker.
[2023-07-01] MEDS: Bisacodyl 10 MG Suppository RC (10:39)
[2023-07-01] MEDS: Lidocaine Jelly 2% 20 ML Syringe (URO-JET) 1 APPLIC TOPICAL (10:39)
--- NOTE | 2023-07-01 11:00 | PCM.PROGNOTE ---
Subjective Subjective Patient seen and examined. She still complains of constipation. She had no other complaints. She had CT abdomen and pelvis which confirmed significant stool retention. Objective Data Objective Data Vital Signs: Vital Signs Temp Pulse Resp BP Pulse Ox O2 Del Method O2 Flow Rate 97.7 F L 82 18 162/63 H 100 Room Air 2 07/01/23 08:17 07/01/23 08:22 07/01/23 08:17 07/01/23 08:22 07/01/23 08:17 07/01/23 08:17 06/21/23 14:00 Oxygen Flow Rate (L/min) 2 Oxygen Delivery Method Room Air Weight: 211 lb 3.245 oz Body Mass Index (BMI) 37.4 Intake & Output: Intake and Output for Last 24 Hours 06/29/23 06/30/23 07/01/23 23:59 23:59 23:59 Intake Total 2270 / 2270 3850 / 3850 110 / 110 Output Total 2200 / 2200 2950 / 3600 1550 / 1550 Balance 70 / 70 900 / 250 -1440 / -1440 Lab / Micro Data 07/01/23 05:05 07/01/23 05:05 Labs: Laboratory Results - last 24 hr 07/01/23 05:05: WBC 12.9 H, RBC 3.79 L, Hgb 11.4 L, Hct 36.4 L, MCV 96.0, MCH 30.1, MCHC 31.3 L, RDW Std Deviation 43.3, RDW Coeff of Patricia 12.5, Plt Count 367, MPV 9.0, Immature Gran % (Auto) 1.200 H, Neut % (Auto) 73.0 H, Lymph % (Auto) 16.3 L, [place] % (Auto) 7.8, Eos % (Auto) 0.9, Baso % (Auto) 0.8, Absolute Neuts (auto) 9.4 H, Absolute Lymphs (auto) 2.10, Nucleated RBC % 0, Sodium 137, Potassium 4.1, Chloride 103, Carbon Dioxide 29.0, Anion Gap 5, BUN 26 H, Creatinine 1.28 H, Estim Creat Clear Calc 37.70, Est GFR (MDRD) Af Amer 54 L, Est GFR (MDRD) Non-Af 45 L, BUN/Creatinine Ratio 20.3 H, Glucose 196 H, Calcium 9.2 Micro: Microbiology 06/24/23 12:15 Blood Culture (Wb) - Anticubital Left Blood Culture - Final No growth in 5 days. 06/23/23 08:35 Blood Culture (Wb) - Anticubital Left Blood Culture - Final No growth in 5 days. 06/23/23 07:57 Blood Culture (Wb) - Anticubital Left Blood Culture - Final No growth in 5 days. 06/21/23 15:20 Blood Culture (Wb) - Left Wrist Blood Culture - Final No growth in 5 days. 06/21/23 13:18 Wound Drainage - Aerobic & Anaerobic Swabs Gram Stain - Final 06/21/23 13:18 Wound Drainage - Aerobic & Anaerobic Swabs Wound Culture - Final Staphylococcus aureus 06/21/23 13:18 Wound Drainage - Aerobic & Anaerobic Swabs Anaerobic Culture - Final No anaerobic bacteria isolated. 06/21/23 08:20 Fluid - Synovial (joint) Gram Stain - Final 06/21/23 08:20 Fluid - Synovial (joint) Body Fluid Culture - Final Staphylococcus aureus Streptococcus mitis 06/21/23 08:20 Fluid - Synovial (joint) Anaerobic Culture - Final No anaerobic bacteria isolated. 06/21/23 16:30 Blood Culture (Wb) - Right Hand Bacteria Detection (PCR) - Final Staphylococcus aureus 06/21/23 16:30 Blood Culture (Wb) - Right Hand Blood Culture - Final Staphylococcus aureus 06/20/23 23:10 Urine, Clean Catch Urine Culture - Final Mixed Gram Pos & Gram Neg Org Radiography Diagnostic Testing: Radiology Impression Abdomen/Pelvis CT 06/30/23 18:25 IMPRESSION: Mildly diffusely distended fecal filled colon with rectal impaction.. No evidence for small bowel obstruction or other acute abnormality Electronically Signed: Beck Franco MD at 18:58 EDT , Rhythm Strip Rhythm Strip: Sinus Rhythm Rate: 75 Ectopy: None Physical Exam Const alert, oriented x3, no apparent distress and well nourished General Appearance: cooperative HEENT normocephalic, head/scalp atraumatic, moist oral mucous membranes and oropharynx normal Eyes PERRL and EOMs intact bilaterally Neck no lymphadenopathy and supple Lymph Lymphatic: no lymphadenopathy noted Resp normal respiratory effort, normal air movement, no retractions, no use of accessory muscles and clear to auscultation bilaterally Auscultation: Negative for rales, rhonchi or wheezes Cardio regular rate, regular rhythm, S1 normal heart sound, S2 normal heart sound, no murmurs, no rub, no gallops and no clicks GI normal to inspection, nondistended, normoactive bowel sounds, soft to palpation, non-tender and non-distended Extremity normal capillary refill and no clubbing, cyanosis or edema; Negative for full ROM Extremity Narrative: site of I&D well healed General Extremity: no tenderness to palpation of joints or extremities Skin General Skin Exam: no breakdown Neuro oriented x3, CN's II-XII intact bilaterally, moves all extremities, no focal motor deficits and no sensory deficits noted Speech: speech normal Motor Exam: strength 5/5 throughout and general weakness Psych thought process normal, cooperative and affect normal Appearance: appropriate Assessment & Plan Assessment/Plan (1) MSSA bacteremia: (2) Septic joint of left knee joint: PLAN: Plan #Septic arthritis of left knee due to MSSA today is POD 8 of I&D on IV cefazolin ID and orthopedics on board PT/OT on board fall precautions on PO tylenol and PO oxycodone prn #MSSA bacteremia blood cultures grew MSSA repeat blood cultures negative on IV cefazolin ID on board. PICC line inserted for penitentiary IV antibiotics #Constipation: Has had multiple enemas and is on lactulose as well as Senokot. She still has not had a bowel movement. CT of the abdomen and pelvis done yesterday showed mildly diffusely distended fecal filled colon with rectal impaction. Discussed with her nurse today. To give suppository Dulcolax with rectal stimulation to hopefully stimulate a bowel movement. If this is unsuccessful, will consult general surgery for manual disimpaction. #Type 2 diabetes mellitus: On Farxiga. Last A1c on 06/21/2023 was 7.4. Insulin sliding scale. Accu-Cheks ACHS. On Lantus 18 units daily. #Persistent A-fib: On amiodarone and metoprolol. On Eliquis. #CKD stage IIIb: Creatinine at baseline. Will monitor. #Hypertension: On lisinopril. IV hydralazine as needed. #Hyperlipidemia: On statin #DVT prophylaxis: On Eliquis. Disposition: still awaiting placement Charges/Coding Visit Charges Inpatient E&M: 51512 Subs Hosp L2
[2023-07-01] MEDS: Polyethylene Glycol 3350 17 GM PACKET PO (11:55)
[2023-07-01] MEDS: Lactulose 20 GM/30 ML UDC PO (11:55)
[2023-07-01] MEDS: Ferrous Sulfate 325 MG Tablet PO (11:57)
--- NOTE | 2023-07-01 12:43 | CASEMGMT ---
SW called [facility] and they are not willing to take patient now due to the cost of the IV antibiotic. SW will have to talk with patient and another referral will be sent out to another facility. Zena ERICKSON
--- NOTE | 2023-07-01 13:16 | CASEMGMT ---
SW met with patient and let her know [facility] is now not willing to take her due to cost of IV medication. SW told patient that SW can send a referral to [facility] as this was her second choice. SW also talked about [facility] with patient. Patient is open to either of those facilities. ROLDAN asked Delores d/c planning manager to please send a referral to [facility]. SW then made a referral to [facility]. Zena ERICKSON
--- NOTE | 2023-07-01 13:33 | CASEMGMT ---
Discharge Planning Referral sent to [facility] via [facility]. Delores Villafuerte, Discharge Planning Asst.
[2023-07-01 14:00] VITALS: BP 147/40; PULSE 81; RESP 18; TEMP 36.8; O2SAT 100
[2023-07-01] MEDS: 0.9% Saline Lock 10 ML Syringe IV ×2 (14:18→23:14)
--- NOTE | 2023-07-01 16:24 | CASEMGMT ---
Discharge Planning [facility] has accepted patient. SW updated. Delores Villafuerte, Discharge Planning Asst.
--- NOTE | 2023-07-01 17:11 | CASEMGMT ---
SW spoke with patient and her . SW let them know [facility] accepted patient. SW also explained SW is still waiting to see if [facility] can accept her. After much discussion patient would like to wait and see if [facility] can take her. Patient will need insurance authorization. Plan: [facility] vs [facility] vs home. Zena Torre MSW [place]
[2023-07-01 19:55] VITALS: BP 122/57; PULSE 84; RESP 15; TEMP 36.8; O2SAT 100
[2023-07-01 22:52] VITALS: BP 142/56; PULSE 75; RESP 15; TEMP 36.9; O2SAT 96
[2023-07-01] MEDS: DULoxetine Hcl 60 MG Capsule 120 MG PO (23:01)
[2023-07-01] MEDS: traZODone 100 MG Tablet PO (23:02)
[2023-07-01] MEDS: Atorvastatin Calcium 40 MG Tablet PO (23:03)
[2023-07-01] MEDS: Insulin Glargine-YFGN 100 UNIT/ML Pen 22 UNIT SC (23:09)
[2023-07-02 04:52] VITALS: BP 150/71; PULSE 72; RESP 15; TEMP 36.6; O2SAT 96
[2023-07-02] MEDS: Acetaminophen 500 MG Tablet 1000 MG PO ×3 (05:00→21:06)
[2023-07-02] MEDS: 0.9% Saline Lock 10 ML Syringe IV (05:01)
[2023-07-02] MEDS: Cefazolin 2 GM in 0.9% Normal Saline (100mL Bag) 100 ML IV ×3 (05:01→21:35)
[2023-07-02 08:10] LABS: Absolute Lymphocyte Count 1.92 X10^3/uL (0.83-4.51); Absolute Neutrophil Count 6.9 X10^3/uL (2.0-7.7); Basophil# 0.09 X10^3/uL; Basophil% 0.9 % (0-1); Eosinophil# 0.15 X10^3/uL; Eosinophils% 1.4 % (0-5); Hematocrit 34.6 % (37-47); Hemoglobin 10.9 g/dL (12.0-15.0); Lymphocyte # 1.92 X10^3/ul (0.83-4.51); Lymphocyte % 18.5 % (19-41); Mean Corp Hgb Conc 31.5 g/dL (32-36); Mean Corpuscular Hgb 30.4 pg (27.0-32.0); Mean Corpuscular Volume 96.6 fL (81-99); Mean Platelet Vol. 9.3 fl (6.2-12.0); Monocyte% 11.5 % (0-10); NRBC Flagged by Analyzer 0 % (0-5); Neutrophil # 6.92 X10^3/uL (2.7-7.7); Neutrophil % 66.6 % (47-70); Platelet Count 329 K/mm3 (150-450); RBC Distribution Width CV 12.5 % (11.6-14.6); RBC Distribution Width SD 43.9 fl (35.1-43.9); Red Blood Count 3.58 M/mm3 (4.2-5.4); White Blood Count 10.4 K/mm3 (4.4-11.0)
[2023-07-02 08:18] LABS: Anion Gap 7 (5-15); BUN 26 mg/dL (7-18); BUN/Creat Ratio 18.6 RATIO (10-20); Chloride 104 mmol/L (98-107); EST Glomerular Filtration Rate 41 mL/min (>60); Est Glom Filt Rate - Afr Amer 49 mL/min (>60); Estimated Creatinine Clearance 34.47 ml/min; Glucose 219 mg/dL (74-106); Potassium 3.9 mmol/L (3.5-5.1); Sodium Level 137 mmol/L (136-145)
[2023-07-02] MEDS: Insulin Lispro 100 UNIT/ML INSULN.PEN 20 UNIT SC ×2 (09:10→12:13)
[2023-07-02] MEDS: Insulin Lispro 100 UNIT/ML INSULN.PEN SC ×2 (09:10→12:13)
[2023-07-02 09:31] VITALS: BP 142/68; PULSE 81; RESP 16; TEMP 36.7; O2SAT 100
[2023-07-02] MEDS: Polyethylene Glycol 3350 17 GM PACKET PO (09:43)
[2023-07-02] MEDS: Lactulose 20 GM/30 ML UDC PO (09:43)
[2023-07-02 09:44] VITALS: BP 142/68; PULSE 81
[2023-07-02] MEDS: Metoprolol(XL)Succ 50 MG Tablet PO (09:44)
[2023-07-02] MEDS: Amiodarone 200 MG Tablet PO (09:44)
[2023-07-02] MEDS: APIXABAN 5 MG TABLET PO ×2 (09:44→21:06)
[2023-07-02] MEDS: Losartan Potassium 25 MG Tablet PO (09:44)
[2023-07-02] MEDS: Furosemide 40 MG Tablet PO (09:44)
[2023-07-02] MEDS: Magnesium Chloride 64 MG Delay Rel.Tablet 128 MG PO (09:44)
[2023-07-02] MEDS: Empagliflozin 25 MG Tablet PO (09:46)
[2023-07-02] MEDS: Ferrous Sulfate 325 MG Tablet PO (12:12)
--- NOTE | 2023-07-02 12:50 | CASEMGMT ---
Spoke with therapist who states pt could tolerate inpatient rehab.
--- NOTE | 2023-07-02 13:32 | PN_ITS ---
Subjective Subjective Patient seen and examined. She had 3 bowel movements yesterday. She had no other complaints today. Review of systems is otherwise negative. She has remained hemodynamically stable. Objective Data Objective Data Vital Signs: Vital Signs Temp Pulse Resp BP Pulse Ox O2 Del Method O2 Flow Rate 98.1 F 81 16 142/68 H 100 Room Air 2 07/02/23 09:31 07/02/23 09:44 07/02/23 09:31 07/02/23 09:44 07/02/23 09:31 07/02/23 09:31 06/21/23 14:00 Oxygen Flow Rate (L/min) 2 Oxygen Delivery Method Room Air Weight: 211 lb 3.245 oz Body Mass Index (BMI) 37.4 Intake & Output: Intake and Output for Last 24 Hours 06/30/23 07/01/23 07/02/23 23:59 23:59 23:59 Intake Total 3850 / 3850 630 / 1030 560 / 560 Output Total 2950 / 3600 2050 / 2050 500 / 500 Balance 900 / 250 -1420 / -1020 60 / 60 Lab / Micro Data 07/02/23 07:35 07/02/23 07:35 Labs: Laboratory Results - last 24 hr 07/02/23 07:35: WBC 10.4, RBC 3.58 L, Hgb 10.9 L, Hct 34.6 L, MCV 96.6, MCH 30.4, MCHC 31.5 L, RDW Std Deviation 43.9, RDW Coeff of Patricia 12.5, Plt Count 329, MPV 9.3, Immature Gran % (Auto) 1.100 H, Neut % (Auto) 66.6, Lymph % (Auto) 18.5 L, [place] % (Auto) 11.5 H, Eos % (Auto) 1.4, Baso % (Auto) 0.9, Absolute Neuts (auto) 6.9, Absolute Lymphs (auto) 1.92, Nucleated RBC % 0, Sodium 137, Po tassium 3.9, Chloride 104, Carbon Dioxide 26.0, Anion Gap 7, BUN 26 H, Creatinine 1.40 H, Estim Creat Clear Calc 34.47, Est GFR (MDRD) Af Amer 49 L, Est GFR (MDRD) Non-Af 41 L, BUN/Creatinine Ratio 18.6, Glucose 219 H, Calcium 9.0 Micro: Microbiology 06/24/23 12:15 Blood Culture (Wb) - Anticubital Left Blood Culture - Final No growth in 5 days. 06/23/23 08:35 Blood Culture (Wb) - Anticubital Left Blood Culture - Final No growth in 5 days. 06/23/23 07:57 Blood Culture (Wb) - Anticubital Left Blood Culture - Final No growth in 5 days. 06/21/23 15:20 Blood Culture (Wb) - Left Wrist Blood Culture - Final No growth in 5 days. 06/21/23 13:18 Wound Drainage - Aerobic & Anaerobic Swabs Gram Stain - Final 06/21/23 13:18 Wound Drainage - Aerobic & Anaerobic Swabs Wound Culture - Final Staphylococcus aureus 06/21/23 13:18 Wound Drainage - Aerobic & Anaerobic Swabs Anaerobic Culture - Final No anaerobic bacteria isolated. 06/21/23 08:20 Fluid - Synovial (joint) Gram Stain - Final 06/21/23 08:20 Fluid - Synovial (joint) Body Fluid Culture - Final Staphylococcus aureus Streptococcus mitis 06/21/23 08:20 Fluid - Synovial (joint) Anaerobic Culture - Final No anaerobic bacteria isolated. 06/21/23 16:30 Blood Culture (Wb) - Right Hand Bacteria Detection (PCR) - Final Staphylococcus aureus 06/21/23 16:30 Blood Culture (Wb) - Right Hand Blood Culture - Final Staphylococcus aureus 06/20/23 23:10 Urine, Clean Catch Urine Culture - Final Mixed Gram Pos & Gram Neg Org Rhythm Strip Rhythm Strip: Sinus Rhythm Rate: 75 Ectopy: None Physical Exam Const alert, oriented x3, no apparent distress and well nourished General Appearance: cooperative HEENT normocephalic, head/scalp atraumatic, moist oral mucous membranes and oropharynx normal Eyes PERRL and EOMs intact bilaterally Neck no lymphadenopathy and supple Lymph Lymphatic: no lymphadenopathy noted Resp normal respiratory effort, normal air movement, no retractions, no use of accessory muscles and clear to auscultation bilaterally Auscultation: Negative for rales, rhonchi or wheezes Cardio regular rate, regular rhythm, S1 normal heart sound, S2 normal heart sound, no murmurs, no rub, no gallops and no clicks GI normal to inspection, nondistended, normoactive bowel sounds, soft to palpation, non-tender and non-distended Extremity normal capillary refill and no clubbing, cyanosis or edema; Negative for full ROM Extremity Narrative: site of I&D well healed General Extremity: no tenderness to palpation of joints or extremities Skin General Skin Exam: no breakdown Neuro oriented x3, CN's II-XII intact bilaterally, moves all extremities, no focal motor deficits and no sensory deficits noted Speech: speech normal Motor Exam: strength 5/5 throughout and general weakness Psych thought process normal, cooperative and affect normal Appearance: appropriate Assessment & Plan Assessment/Plan (1) MSSA bacteremia: (2) Septic joint of left knee joint: PLAN: Plan #Septic arthritis of left knee due to MSSA * today is POD 8 of I&D * on IV cefazolin * ID and orthopedics on board * PT/OT on board * fall precautions * on PO tylenol and PO oxycodone prn * #MSSA bacteremia * blood cultures grew MSSA * repeat blood cultures negative * on IV cefazolin * ID on board. * PICC line inserted for extermination inspector IV antibiotics * #Constipation: * resolved. Had 3 bowel movements yesterday and feels much better. #Type 2 diabetes mellitus: * On Farxiga. Last A1c on 06/21/2023 was 7.4. Insulin sliding scale. Accu- Cheks ACHS. * On Lantus 18 units daily. * #Persistent A-fib: On amiodarone and metoprolol. On Eliquis. #CKD stage IIIb: Creatinine at baseline. Will monitor. #Hypertension: On lisinopril. IV hydralazine as needed. #Hyperlipidemia: On statin #DVT prophylaxis: On Eliquis. Disposition: still awaiting placement Charges/Coding Visit Charges Inpatient E&M: 39457 Subs Hosp L2
[2023-07-02 15:06] VITALS: BP 131/58; PULSE 78; RESP 16; TEMP 36.8; O2SAT 98
[2023-07-02 20:59] VITALS: BP 133/62; PULSE 75; RESP 15; TEMP 37.3; O2SAT 95
[2023-07-02] MEDS: DULoxetine Hcl 60 MG Capsule 120 MG PO (21:05)
[2023-07-02] MEDS: Atorvastatin Calcium 40 MG Tablet PO (21:06)
[2023-07-02] MEDS: traZODone 100 MG Tablet PO (21:06)
[2023-07-02] MEDS: Insulin Glargine-YFGN 100 UNIT/ML Pen 22 UNIT SC (21:11)
[2023-07-03 02:51] VITALS: BP 146/65; PULSE 67; RESP 16; TEMP 37.1; O2SAT 100
[2023-07-03] MEDS: Acetaminophen 500 MG Tablet 1000 MG PO ×3 (05:16→22:09)
[2023-07-03] MEDS: 0.9% Saline Lock 10 ML Syringe IV ×2 (05:19→22:15)
[2023-07-03] MEDS: Cefazolin 2 GM in 0.9% Normal Saline (100mL Bag) 100 ML IV ×3 (05:22→22:14)
[2023-07-03 07:44] LABS: Absolute Lymphocyte Count 1.95 X10^3/uL (0.83-4.51); Absolute Neutrophil Count 8.1 X10^3/uL (2.0-7.7); Basophil# 0.12 X10^3/uL; Eosinophil# 0.17 X10^3/uL; Eosinophils% 1.5 % (0-5); Hematocrit 33.7 % (37-47); Hemoglobin 10.6 g/dL (12.0-15.0); Lymphocyte # 1.95 X10^3/ul (0.83-4.51); Lymphocyte % 16.8 % (19-41); Mean Corp Hgb Conc 31.5 g/dL (32-36); Mean Corpuscular Hgb 30.3 pg (27.0-32.0); Mean Corpuscular Volume 96.3 fL (81-99); Mean Platelet Vol. 9.2 fl (6.2-12.0); Monocyte# 1.22 X10^3/uL; Monocyte% 10.5 % (0-10); NRBC Flagged by Analyzer 0 % (0-5); Neutrophil # 8.05 X10^3/uL (2.7-7.7); Neutrophil % 69.1 % (47-70); Platelet Count 323 K/mm3 (150-450); RBC Distribution Width CV 12.5 % (11.6-14.6); RBC Distribution Width SD 44.1 fl (35.1-43.9); White Blood Count 11.6 K/mm3 (4.4-11.0)
[2023-07-03 08:02] LABS: Anion Gap 8 (5-15); BUN 25 mg/dL (7-18); Calcium,Total 8.9 mg/dL (8.5-10.1); Chloride 103 mmol/L (98-107); Creatinine, Serum 1.39 mg/dL (0.55-1.02); EST Glomerular Filtration Rate 41 mL/min (>60); Est Glom Filt Rate - Afr Amer 49 mL/min (>60); Estimated Creatinine Clearance 34.71 ml/min; Glucose 191 mg/dL (74-106); Potassium 3.6 mmol/L (3.5-5.1); Sodium Level 135 mmol/L (136-145)
[2023-07-03 08:27] VITALS: BP 145/73; PULSE 82; RESP 16; TEMP 36.6; O2SAT 98
[2023-07-03] MEDS: Insulin Lispro 100 UNIT/ML INSULN.PEN 20 UNIT SC ×3 (08:28→16:41)
[2023-07-03] MEDS: Insulin Lispro 100 UNIT/ML INSULN.PEN SC ×3 (08:28→16:42)
[2023-07-03] MEDS: Amiodarone 200 MG Tablet PO (08:30)
[2023-07-03] MEDS: Magnesium Chloride 64 MG Delay Rel.Tablet 128 MG PO (08:30)
[2023-07-03] MEDS: APIXABAN 5 MG TABLET PO ×2 (08:30→22:09)
[2023-07-03 08:31] VITALS: PULSE 82
[2023-07-03] MEDS: Metoprolol(XL)Succ 50 MG Tablet PO (08:31)
[2023-07-03] MEDS: Losartan Potassium 25 MG Tablet PO (08:32)
[2023-07-03] MEDS: Furosemide 40 MG Tablet PO (08:32)
[2023-07-03] MEDS: Empagliflozin 25 MG Tablet PO (08:33)
--- NOTE | 2023-07-03 10:26 | PN_ITS ---
Subjective Subjective Patient seen and examined. She has no complaints today. States she had bowel movements yesterday and is now watery. Review of systems otherwise negative. Objective Data Objective Data Vital Signs: Vital Signs Temp Pulse Resp BP Pulse Ox O2 Del Method O2 Flow Rate 97.9 F 82 16 145/73 H 98 Room Air 2 07/03/23 08:27 07/03/23 08:31 07/03/23 08:27 07/03/23 08:27 07/03/23 08:27 07/03/23 08:27 06/21/23 14:00 Oxygen Flow Rate (L/min) 2 Oxygen Delivery Method Room Air Weight: 211 lb 3.245 oz Body Mass Index (BMI) 37.4 Intake & Output: Intake and Output for Last 24 Hours 07/01/23 07/02/23 07/03/23 23:59 23:59 23:59 Intake Total 630 / 1030 1880 / 2680 1280 / 1280 Output Total 0 / 2050 500 / 1007 1007 / 1007 Balance -1420 / -1020 1380 / 1673 273 / 273 Lab / Micro Data 07/03/23 07:08 07/03/23 07:08 Labs: Laboratory Results - last 24 hr 07/03/23 07:08: WBC 11.6 H, RBC 3.50 L, Hgb 10.6 L, Hct 33.7 L, MCV 96.3, MCH 30.3, MCHC 31.5 L, RDW Std Deviation 44.1 H, RDW Coeff of Patricia 12.5, Plt Count 323, MPV 9.2, Immature Gran % (Auto) 1.100 H, Neut % (Auto) 69.1, Lymph % (Auto) 16.8 L, [place] % (Auto) 10.5 H, Eos % (Auto) 1.5, Baso % (Auto) 1.0, Absolute Neuts (auto) 8.1 H, Absolute Lymphs (auto) 1.95, Nucleated RBC % 0, Sodium 135 L , Potassium 3.6, Chloride 103, Carbon Dioxide 24.0, Anion Gap 8, BUN 25 H, Creatinine 1.39 H, Estim Creat Clear Calc 34.71, Est GFR (MDRD) Af Amer 49 L, Est GFR (MDRD) Non-Af 41 L, BUN/Creatinine Ratio 18.0, Glucose 191 H, Calcium 8.9 Micro: Microbiology 06/24/23 12:15 Blood Culture (Wb) - Anticubital Left Blood Culture - Final No growth in 5 days. 06/23/23 08:35 Blood Culture (Wb) - Anticubital Left Blood Culture - Final No growth in 5 days. 06/23/23 07:57 Blood Culture (Wb) - Anticubital Left Blood Culture - Final No growth in 5 days. 06/21/23 15:20 Blood Culture (Wb) - Left Wrist Blood Culture - Final No growth in 5 days. 06/21/23 13:18 Wound Drainage - Aerobic & Anaerobic Swabs Gram Stain - Final 06/21/23 13:18 Wound Drainage - Aerobic & Anaerobic Swabs Wound Culture - Final Staphylococcus aureus 06/21/23 13:18 Wound Drainage - Aerobic & Anaerobic Swabs Anaerobic Culture - Final No anaerobic bacteria isolated. 06/21/23 08:20 Fluid - Synovial (joint) Gram Stain - Final 06/21/23 08:20 Fluid - Synovial (joint) Body Fluid Culture - Final Staphylococcus aureus Streptococcus mitis 06/21/23 08:20 Fluid - Synovial (joint) Anaerobic Culture - Final No anaerobic bacteria isolated. 06/21/23 16:30 Blood Culture (Wb) - Right Hand Bacteria Detection (PCR) - Final Staphylococcus aureus 06/21/23 16:30 Blood Culture (Wb) - Right Hand Blood Culture - Final Staphylococcus aureus 06/20/23 23:10 Urine, Clean Catch Urine Culture - Final Mixed Gram Pos & Gram Neg Org Rhythm Strip Rhythm Strip: Sinus Rhythm Rate: 75 Ectopy: None Physical Exam Const alert, oriented x3, no apparent distress and well nourished General Appearance: cooperative HEENT normocephalic, head/scalp atraumatic, moist oral mucous membranes and oropharynx normal Eyes PERRL and EOMs intact bilaterally Neck no lymphadenopathy and supple Lymph Lymphatic: no lymphadenopathy noted Resp normal respiratory effort, normal air movement, no retractions, no use of accessory muscles and clear to auscultation bilaterally Auscultation: Negative for rales, rhonchi or wheezes Cardio regular rate, regular rhythm, S1 normal heart sound, S2 normal heart sound, no murmurs, no rub, no gallops and no clicks GI normal to inspection, nondistended, normoactive bowel sounds, soft to palpation, non-tender and non-distended Extremity normal capillary refill and no clubbing, cyanosis or edema; Negative for full ROM Extremity Narrative: site of I&D well healed General Extremity: no tenderness to palpation of joints or extremities Skin General Skin Exam: no breakdown Neuro oriented x3, CN's II-XII intact bilaterally, moves all extremities, no focal motor deficits and no sensory deficits noted Speech: speech normal Motor Exam: strength 5/5 throughout and general weakness Psych thought process normal, cooperative and affect normal Appearance: appropriate Assessment & Plan Assessment/Plan (1) MSSA bacteremia: (2) Septic joint of left knee joint: PLAN: Plan #Septic arthritis of left knee due to MSSA * s/p I&D * on IV cefazolin * ID and orthopedics on board * PT/OT on board * fall precautions * on PO tylenol and PO oxycodone prn * #MSSA bacteremia * blood cultures grew MSSA * repeat blood cultures negative * on IV cefazolin * ID on board. * PICC line inserted for terminal worker IV antibiotics * #Constipation: * resolved. now having bowel movements #Type 2 diabetes mellitus: * On Farxiga. Last A1c on 06/21/2023 was 7.4. Insulin sliding scale. Accu- Cheks ACHS. * On Lantus 18 units daily. * #Persistent A-fib: On amiodarone and metoprolol. On Eliquis. #CKD stage IIIb: Creatinine at baseline. Will monitor. #Hypertension: On lisinopril. IV hydralazine as needed. #Hyperlipidemia: On statin #DVT prophylaxis: On Eliquis. Disposition: still awaiting placement Charges/Coding Visit Charges Inpatient E&M: 50761 Subs Hosp L2
[2023-07-03] MEDS: Ferrous Sulfate 325 MG Tablet PO (11:20)
[2023-07-03 15:10] VITALS: BP 152/70; PULSE 80; RESP 18; TEMP 36.6; O2SAT 97
[2023-07-03 21:59] VITALS: BP 183/67; PULSE 75; RESP 15; TEMP 36.9; O2SAT 98
[2023-07-03] MEDS: DULoxetine Hcl 60 MG Capsule 120 MG PO (22:07)
[2023-07-03] MEDS: traZODone 100 MG Tablet PO (22:08)
[2023-07-03] MEDS: Atorvastatin Calcium 40 MG Tablet PO (22:09)
[2023-07-03] MEDS: Insulin Glargine-YFGN 100 UNIT/ML Pen 22 UNIT SC (22:11)
[2023-07-03] MEDS: Polyethylene Glycol 3350 17 GM PACKET PO (22:29)
[2023-07-04 03:22] VITALS: BP 150/66; PULSE 65; RESP 15; TEMP 36.5; O2SAT 96
[2023-07-04] MEDS: 0.9% Saline Lock 10 ML Syringe IV ×2 (05:26→12:25)
[2023-07-04] MEDS: Cefazolin 2 GM in 0.9% Normal Saline (100mL Bag) 100 ML IV ×3 (05:27→21:12)
[2023-07-04] MEDS: Acetaminophen 500 MG Tablet 1000 MG PO ×3 (05:32→21:06)
[2023-07-04 07:03] LABS: Absolute Lymphocyte Count 2.01 X10^3/uL (0.83-4.51); Absolute Neutrophil Count 5.5 X10^3/uL (2.0-7.7); Basophil# 0.12 X10^3/uL; Basophil% 1.4 % (0-1); Eosinophil# 0.17 X10^3/uL; Eosinophils% 1.9 % (0-5); Hematocrit 35.1 % (37-47); Hemoglobin 10.7 g/dL (12.0-15.0); Lymphocyte # 2.01 X10^3/ul (0.83-4.51); Lymphocyte % 22.6 % (19-41); Mean Corp Hgb Conc 30.5 g/dL (32-36); Mean Corpuscular Hgb 29.9 pg (27.0-32.0); Mean Platelet Vol. 9.1 fl (6.2-12.0); Monocyte# 0.97 X10^3/uL; Monocyte% 10.9 % (0-10); NRBC Flagged by Analyzer 0 % (0-5); Neutrophil # 5.53 X10^3/uL (2.7-7.7); Neutrophil % 62.3 % (47-70); Platelet Count 329 K/mm3 (150-450); RBC Distribution Width CV 12.4 % (11.6-14.6); RBC Distribution Width SD 44.5 fl (35.1-43.9); Red Blood Count 3.58 M/mm3 (4.2-5.4); White Blood Count 8.9 K/mm3 (4.4-11.0)
[2023-07-04 07:27] LABS: Anion Gap 6 (5-15); BUN 28 mg/dL (7-18); BUN/Creat Ratio 19.9 RATIO (10-20); Chloride 106 mmol/L (98-107); Creatinine, Serum 1.41 mg/dL (0.55-1.02); EST Glomerular Filtration Rate 40 mL/min (>60); Est Glom Filt Rate - Afr Amer 49 mL/min (>60); Estimated Creatinine Clearance 34.22 ml/min; Glucose 190 mg/dL (74-106); Sodium Level 137 mmol/L (136-145)
[2023-07-04 08:50] VITALS: BP 138/67; PULSE 73; RESP 16; TEMP 36.4; O2SAT 98
[2023-07-04] MEDS: Insulin Lispro 100 UNIT/ML INSULN.PEN 20 UNIT SC ×2 (08:56→12:26)
[2023-07-04] MEDS: Polyethylene Glycol 3350 17 GM PACKET PO (08:56)
[2023-07-04] MEDS: Insulin Lispro 100 UNIT/ML INSULN.PEN SC ×2 (08:57→12:26)
[2023-07-04] MEDS: Amiodarone 200 MG Tablet PO (08:58)
[2023-07-04] MEDS: Empagliflozin 25 MG Tablet PO (08:58)
[2023-07-04] MEDS: Losartan Potassium 25 MG Tablet PO (08:58)
[2023-07-04] MEDS: APIXABAN 5 MG TABLET PO ×2 (08:58→21:06)
[2023-07-04] MEDS: Magnesium Chloride 64 MG Delay Rel.Tablet 128 MG PO (08:58)
[2023-07-04 08:59] VITALS: BP 138/67; PULSE 73
[2023-07-04] MEDS: Furosemide 40 MG Tablet PO (08:59)
[2023-07-04] MEDS: Metoprolol(XL)Succ 50 MG Tablet PO (08:59)
--- NOTE | 2023-07-04 09:51 | CASEMGMT ---
SW spoke with patient and she said she would like to go to [facility] Acute Rehab. A referral has been made, just waiting to see if Acute Rehab physician will take patient. Patient will then need insurance authorization. Zena ERICKSON
--- NOTE | 2023-07-04 12:00 | CASEMGMT ---
Addendum entered by Zena Torre 07/04/23 12:06: ROLDAN notified patient and her that Acute Rehab can take patient. ROLDAN explained we will need to wait on insurance to approve. Zena ERICKSON Original Note: Acute Rehab accepted patient. Emy will start the process to obtain insurance authorization. Zena ERICKSON
[2023-07-04] MEDS: Ferrous Sulfate 325 MG Tablet PO (12:24)
[2023-07-04 13:36] VITALS: BP 118/53; PULSE 71; RESP 16; TEMP 36.3; O2SAT 100
--- NOTE | 2023-07-04 15:53 | PCM.PN.HOSP ---
Reason for Visit Reason for Visit: Diagnoses Methicillin susceptible Staphylococcus aureus infection as the cause of diseases classified elsewhere (06/21/23) Elevated white blood cell count, unspecified (06/21/23) Type 2 diabetes mellitus with hyperglycemia (06/21/23) Hyperkalemia (06/21/23) Permanent atrial fibrillation (06/21/23) Chronic systolic (congestive) heart failure (06/21/23) Arthritis due to other bacteria, left knee (06/21/23) Pyogenic arthritis, unspecified (06/21/23) Unilateral primary osteoarthritis, left knee (06/21/23) Effusion, left knee (06/21/23) Acute cystitis without hematuria (06/21/23) Chest pain, unspecified (06/21/23) Bacteremia (06/21/23) FDC (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 of insulin (06/21/23) Subjective Subjective Some soreness in patient's leg still, is having bowel movements now. Working with therapy. Awaiting placement Objective Data Objective Data Vital Signs: Vital Signs Temp Pulse Resp BP Pulse Ox O2 Del Method O2 Flow Rate 97.4 F L 71 16 118/53 L 100 Room Air 2 07/04/23 13:36 07/04/23 13:36 07/04/23 13:36 07/04/23 13:36 07/04/23 13:36 07/04/23 13:36 06/21/23 14:00 Oxygen Flow Rate (L/min) 2 Oxygen Delivery Method Room Air Weight: 95.8 kg Body Mass Index (BMI) 37.4 Intake & Output: Intake and Output for Last 24 Hours 07/02/23 07/03/23 07/04/23 23:59 23:59 23:59 Intake Total 1880 / 2680 2300 / 2772 1882 / 1882 Output Total 500 / 1007 1007 / 1667 1710 / 1710 Balance 1380 / 1673 1293 / 1105 172 / 172 Lab / Micro Data 07/04/23 06:30 07/04/23 06:30 Labs: Laboratory Results - last 24 hr 07/04/23 06:30: WBC 8.9, RBC 3.58 L, Hgb 10.7 L, Hct 35.1 L, MCV 98.0, MCH 29.9, MCHC 30.5 L, RDW Std Deviation 44.5 H, RDW Coeff of Patricia 12.4, Plt Count 329, MPV 9.1, Immature Gran % (Auto) 0.900, Neut % (Auto) 62.3, Lymph % (Auto) 22.6, [place] % (Auto) 10.9 H, Eos % (Auto) 1.9, Baso % (Auto) 1.4 H, Absolute Neuts (auto) 5.5, Absolute Lymphs (auto) 2.01, Nucleated RBC % 0, Sodium 137, Potassium 4.0, Chloride 106, Carbon Dioxide 25.0, Anion Gap 6, BUN 28 H, Creatinine 1.41 H, Estim Creat Clear Calc 34.22, Est GFR (MDRD) Af Amer 49 L, Est GFR (MDRD) Non-Af 40 L, BUN/Creatinine Ratio 19.9, Glucose 190 H, Calcium 9.0 Micro: Microbiology 06/24/23 12:15 Blood Culture (Wb) - Anticubital Left Blood Culture - Final No growth in 5 days. 06/23/23 08:35 Blood Culture (Wb) - Anticubital Left Blood Culture - Final No growth in 5 days. 06/23/23 07:57 Blood Culture (Wb) - Anticubital Left Blood Culture - Final No growth in 5 days. 06/21/23 15:20 Blood Culture (Wb) - Left Wrist Blood Culture - Final No growth in 5 days. 06/21/23 13:18 Wound Drainage - Aerobic & Anaerobic Swabs Gram Stain - Final 06/21/23 13:18 Wound Drainage - Aerobic & Anaerobic Swabs Wound Culture - Final Staphylococcus aureus 06/21/23 13:18 Wound Drainage - Aerobic & Anaerobic Swabs Anaerobic Culture - Final No anaerobic bacteria isolated. 06/21/23 08:20 Fluid - Synovial (joint) Gram Stain - Final 06/21/23 08:20 Fluid - Synovial (joint) Body Fluid Culture - Final Staphylococcus aureus Streptococcus mitis 06/21/23 08:20 Fluid - Synovial (joint) Anaerobic Culture - Final No anaerobic bacteria isolated. 06/21/23 16:30 Blood Culture (Wb) - Right Hand Bacteria Detection (PCR) - Final Staphylococcus aureus 06/21/23 16:30 Blood Culture (Wb) - Right Hand Blood Culture - Final Staphylococcus aureus 06/20/23 23:10 Urine, Clean Catch Urine Culture - Final Mixed Gram Pos & Gram Neg Org Rhythm Strip Rhythm Strip: Sinus Rhythm Rate: 75 Ectopy: None Physical Exam Narrative General: Alert, oriented, no apparent distress HEENT: Atraumatic, normocephalic Eyes: extraocular movements grossly intact Neck: Supple Respiratory: normal respiratory effort Cardiovascular: no edema appreciated GI: nondistended Extremities: Moving all extremities Neuro: No overt focal neurological deficits Psych: Cooperative Assessment & Plan Assessment/Plan (1) MSSA bacteremia: (2) Septic joint of left knee joint: PLAN: Plan #Septic arthritis of left knee due to MSSA s/p I&D on IV cefazolin ID and orthopedics on board PT/OT on board fall precautions on PO tylenol and PO oxycodone prn -07/04: PICC line placed, patient to be on cefazolin IV for 4 weeks with stop date 07/21/2023 and weekly labs and ID follow-up in 2 weeks. Accepted to [facility] rehab and now awaiting insurance approval. PT/OT #MSSA bacteremia blood cultures grew MSSA repeat blood cultures negative on IV cefazolin ID on board. PICC line inserted for custodial IV antibiotics -07/04: Repeat cultures cleared, antibiotic plan as above #Constipation: resolved. now having bowel movements #Type 2 diabetes mellitus: On Farxiga. Last A1c on 06/21/2023 was 7.4. Insulin sliding scale. Accu-Cheks ACHS. On Lantus 18 units daily. -07/04: On glargine 22 units nightly #Persistent A-fib: On amiodarone and metoprolol. On Eliquis. #CKD stage IIIb: Creatinine at baseline. Will monitor. #Hypertension: On lisinopril. IV hydralazine as needed. #Hyperlipidemia: On statin #DVT prophylaxis: On Eliquis. Disposition: still awaiting placement Charges/Coding Visit Charges Inpatient E&M: 70150 [facility] Hosp L1
[2023-07-04 18:30] VITALS: BP 120/83; PULSE 70; RESP 16; TEMP 36.8; O2SAT 99
[2023-07-04] MEDS: Insulin Glargine-YFGN 100 UNIT/ML Pen 22 UNIT SC (21:07)
[2023-07-04] MEDS: traZODone 100 MG Tablet PO (21:08)
[2023-07-04] MEDS: DULoxetine Hcl 60 MG Capsule 120 MG PO (21:08)
[2023-07-04] MEDS: Atorvastatin Calcium 40 MG Tablet PO (21:09)
[2023-07-05 00:30] VITALS: BP 127/71; PULSE 75; RESP 16; TEMP 36.8; O2SAT 98
[2023-07-05] MEDS: Cefazolin 2 GM in 0.9% Normal Saline (100mL Bag) 100 ML IV ×2 (05:23→13:35)
[2023-07-05] MEDS: Acetaminophen 500 MG Tablet 1000 MG PO ×2 (05:23→13:36)
[2023-07-05 06:00] VITALS: BP 119/59; PULSE 76; RESP 16; TEMP 36.7; O2SAT 97
[2023-07-05] MEDS: Insulin Lispro 100 UNIT/ML INSULN.PEN SC ×2 (06:48→11:28)
[2023-07-05 07:01] LABS: Absolute Lymphocyte Count 1.84 X10^3/uL (0.83-4.51); Absolute Neutrophil Count 6.1 X10^3/uL (2.0-7.7); Basophil# 0.11 X10^3/uL; Basophil% 1.2 % (0-1); Eosinophil# 0.18 X10^3/uL; Hematocrit 33.5 % (37-47); Hemoglobin 10.3 g/dL (12.0-15.0); Lymphocyte # 1.84 X10^3/ul (0.83-4.51); Mean Corp Hgb Conc 30.7 g/dL (32-36); Mean Corpuscular Hgb 30.1 pg (27.0-32.0); Mean Platelet Vol. 9.2 fl (6.2-12.0); Monocyte# 0.94 X10^3/uL; Monocyte% 10.2 % (0-10); NRBC Flagged by Analyzer 0 % (0-5); Neutrophil # 6.08 X10^3/uL (2.7-7.7); Neutrophil % 65.8 % (47-70); Platelet Count 340 K/mm3 (150-450); RBC Distribution Width CV 12.4 % (11.6-14.6); RBC Distribution Width SD 44.5 fl (35.1-43.9); Red Blood Count 3.42 M/mm3 (4.2-5.4); White Blood Count 9.2 K/mm3 (4.4-11.0)
[2023-07-05 07:29] LABS: Anion Gap 6 (5-15); BUN 29 mg/dL (7-18); BUN/Creat Ratio 21.5 RATIO (10-20); Chloride 105 mmol/L (98-107); Creatinine, Serum 1.35 mg/dL (0.55-1.02); EST Glomerular Filtration Rate 42 mL/min (>60); Est Glom Filt Rate - Afr Amer 51 mL/min (>60); Estimated Creatinine Clearance 35.74 ml/min; Glucose 196 mg/dL (74-106); Potassium 3.9 mmol/L (3.5-5.1); Sodium Level 137 mmol/L (136-145)
[2023-07-05] MEDS: Insulin Lispro 100 UNIT/ML INSULN.PEN 20 UNIT SC ×2 (08:16→11:28)
[2023-07-05] MEDS: Amiodarone 200 MG Tablet PO (09:17)
[2023-07-05] MEDS: Magnesium Chloride 64 MG Delay Rel.Tablet 128 MG PO (09:17)
[2023-07-05] MEDS: Furosemide 40 MG Tablet PO (09:17)
[2023-07-05] MEDS: Losartan Potassium 25 MG Tablet PO (09:17)
[2023-07-05 09:18] VITALS: BP 119/59; PULSE 76
[2023-07-05] MEDS: Polyethylene Glycol 3350 17 GM PACKET PO (09:18)
[2023-07-05] MEDS: Empagliflozin 25 MG Tablet PO (09:18)
[2023-07-05] MEDS: Metoprolol(XL)Succ 50 MG Tablet PO (09:18)
[2023-07-05] MEDS: APIXABAN 5 MG TABLET PO (09:18)
[2023-07-05] MEDS: Senna/Docusate Sodium 1 Tablet 2 TABLET PO (09:22)
[2023-07-05] MEDS: Ferrous Sulfate 325 MG Tablet PO (11:57)
[2023-07-05 12:00] VITALS: BP 146/78; PULSE 77; RESP 16; TEMP 36.7; O2SAT 100
--- NOTE | 2023-07-05 12:58 | CASEMGMT ---
Addendum entered by Zena Torre 07/05/23 13:41: SW notified patient her insurance approved her for the Acute Rehab Unit. Patient said she will notify her . Plan: d/c to [facility] Acute Rehab Unit. Zena ERICKSON Original Note: Patient was approved for [facility] Acute Rehab Unit. ROLDAN notified physician. ROLDAN will notify patient. Zena ERICKSON
--- NOTE | 2023-07-05 13:18 | DCINST_ITS ---
Discharge Instructions Diet Discharge Diet: Carb Control Diet Activity Discharge Activity: - (Admitting to med rehab) Follow Up Care Test Results: Test results from this visit will be discussed in further detail at your follow- up appointment, if applicable. Discharge Plan Admission Admit Date/Time: 06/21/23 02:07 Primary Reason for Your Visit: Knee pain Attending Provider: Lashae Bearden Primary Care Provider: Emile Esposito Consulting Providers: Hebert Ruiz; Anatoliy Moreno; Jaya Cheung; Yajaira Bryan; Shayla Kennedy Instructions Patient Instructions: ED Fall Prevention Additional Instructions / Restrictions: DISCHARGE INSTRUCTIONS PLEASE READ *Please take this with you to your next doctors appointment* -You will need to remain on IV cefazolin with a stop date of 07/21/2023 and weekly BMP, CBC, and ESR will need to be drawn and faxed to [phone] -Please follow-up with infectious disease in 2 weeks upon discharge. Please call their office to schedule hospital follow-up appointment upon discharge. -Please follow-up with orthopedic in 1 week upon discharge. Please call their office to schedule hospital follow-up appointment upon discharge. -Please call your primary care provider's office upon discharge to schedule a hospital follow up within 1 week. -For any concerning signs or symptoms please call 911 or proceed to the nearest emergency department Discharge Orders/Prescriptions Prescriptions: New cefazolin 2 gram recon soln 2 g IV Q8H 24 Days Rx Instructions: dx: MSSA bacteremia stop date 07/21/23 weekly bmp, cbc, and esr; fax to [phone] polyethylene glycol 3350 17 gram Powder In Packet 17 g PO DAILY Qty: 0 0RF losartan 25 mg Tablet 25 mg PO DAILY Qty: 0 0RF acetaminophen 500 mg Tablet 1,000 mg PO Q8 Qty: 0 0RF Continued Eliquis 5 mg tablet 5 mg PO BID Qty: 180 3RF atorvastatin 40 mg tablet 40 mg PO QHS Qty: 90 3RF Farxiga 10 mg tablet 10 mg PO DAILY Qty: 90 3RF metoprolol succinate 50 mg tablet extended release 24 hr 50 mg PO DAILY Qty: 90 3RF amiodarone 200 mg tablet 200 mg PO DAILY mecobalamin (vitamin B12) 5,000 mcg tablet,disintegrating 5,000 mcg PO DAILY magnesium 250 mg tablet 500 mg PO DAILY furosemide 40 mg tablet 40 mg PO DAILY trazodone 100 mg tablet 100 mg PO DAILY insulin lispro [Humalog KwikPen Insulin] 100 unit/mL insulin pen 20 unit subcut TID Qty: 54 1RF duloxetine 60 mg capsule,delayed release(DR/EC) 120 mg PO QHS ferrous sulfate [FeroSul] 325 mg (65 mg iron) Tablet 325 mg PO DAILY@1200 Qty: 0 0RF nystatin [Nyamyc] 100,000 unit/gram Powder 1 applic topical BID PRN (Reason: redness) Protocol: *Topical Application Instructions APPLICATION INSTRUCTIONS: apply to affected areas Trulicity 0.75 mg/0.5 mL pen injector 0.75 mg subcut QWEEK Qty: 2 2RF Changed insulin glargine [Lantus Solostar U-100 Insulin] 100 unit/mL (3 mL) insulin pen 12 unit subcut QHS Qty: 15 0RF Discontinued methylprednisolone [Medrol (Bird)] 4 mg tablets,dose pack See Rx Instructions PO PER PKG DIR Qty: 21 0RF Rx Instructions: PO PER PKG DIR acetaminophen [Tylenol] 325 mg Tablet 650 mg PO Q4H PRN PRN (Reason: Fever, pain 1-06/21) Qty: 0 0RF potassium chloride 10 mEq capsule, extended release 10 meq PO DAILY Qty: 30 0RF Referrals / Follow Up: Emile Esposito MD [Primary Care Provider] - Within 1 Week Jaya Cheung MD [Med Staff - Active Staff] - Within 2 Weeks Anatoliy Moreno MD [Med Staff - Active Staff] - Within 1 Week Disposition Discharge Orders: Discharge Patient (Routine); Ordered 07/05/23 Ordered By: Dr. Lashae Bearden
--- NOTE | 2023-07-05 13:21 | DS.PCM_ITS ---
Providers Date of Admission: 06/21/23 Date of Discharge: 07/05/23 Primary Care Physician: Dr. Emile Esposito MD Consultations 06/21/23 07:13 Consult: Orthopedics Routine Consulting Provider: Anatoliy Moreno Reason for Consult: L Knee Pain EMERGENT Consult: No Notified: Yes Date Notified: 06/21/23 Time Notified: 07:13 Method of Notification: ED Physician Initiated 06/21/23 11:47 Consult: Infectious Disease Routine Consulting Provider: Jaya Cheung Reason for Consult: Septic L Knee EMERGENT Consult: No Notified: Yes Date Notified: 06/21/23 Time Notified: 11:47 Method of Notification: Text Reason For Visit: SEPTIC ARTHRITIS Diagnosis Discharge Diagnosis (1) MSSA bacteremia: Status: Acute Code(s): R78.81 - Bacteremia; B95.61 - Methicillin susceptible Staphylococcus aureus infection as the cause of diseases classified elsewhere (2) Septic joint of left knee joint: Status: Acute Code(s): M00.9 - Pyogenic arthritis, unspecified Plan #Septic arthritis of left knee due to MSSA #MSSA bacteremia- resolved #Constipation: #Type 2 diabetes mellitus: #Persistent A-fib #CKD stage IIIb: #Hypertension: #Hyperlipidemia: Medications at Discharge Home Medications duloxetine 60 mg capsule,delayed release 120 mg PO QHS mental health 11/08/21 ferrous sulfate 325 mg (65 mg iron) tablet (FeroSul) 325 mg PO DAILY@1200 #0 tabs 09/17/22 apixaban 5 mg tablet (Eliquis) 5 mg PO BID #180 tabs 11/04/22 atorvastatin 40 mg tablet 40 mg PO QHS cholesterol #90 tabs 11/04/22 dapagliflozin propanediol 10 mg tablet (Farxiga) 10 mg PO DAILY #90 tabs 02/09/23 amiodarone 200 mg tablet 200 mg PO DAILY 05/09/23 furosemide 40 mg tablet 40 mg PO DAILY 05/09/23 insulin lispro 100 unit/mL subcutaneous pen (Humalog KwikPen (U-100) Insulin) 20 unit (0.2 mL) subcut TID diabetes #54 mL 05/09/23 magnesium 250 mg tablet 500 mg PO DAILY supplement 05/09/23 mecobalamin (vitamin B12) 5,000 mcg disintegrating tablet 5,000 mcg PO DAILY supplement 05/09/23 trazodone 100 mg tablet 100 mg PO DAILY insomnia 05/09/23 dulaglutide 0.75 mg/0.5 mL subcutaneous pen injector (Trulicity) 0.75 mg (0.5 mL) subcut QWEEK #2 mL 05/18/23 metoprolol succinate 50 mg tablet,extended release 24 hr 50 mg PO DAILY #90 tabs 06/07/23 nystatin 100,000 unit/gram topical powder (Nyamyc) 1 applic topical BID PRN red ness 06/21/23 cefazolin 2 gram intravenous solution 2 g IV Q8H 24 days 06/27/23 acetaminophen 500 mg tablet 1,000 mg (2 x 500 mg) PO Q8 #0 tabs 07/05/23 insulin glargine 100 unit/mL (3 mL) subcutaneous pen (Lantus Solostar U-100 Insulin) 12 unit (0.12 mL) subcut QHS diabetes #15 mL 07/05/23 losartan 25 mg tablet 25 mg PO DAILY #0 tabs 07/05/23 polyethylene glycol 3350 17 gram oral powder packet 17 g PO DAILY #0 ea 07/05/23 Hospital Course Procedures - (Arthrocentesis of knee and washout) Summary of Care Provided Minutes Spent on Discharge: 40 Hospital Course: MARIA OTT, is a 62 F with a significant history of CKD; obesity; hypertension; hyperlipidemia; atrial fibrillation cardioversion and heart failure with reduced ejection fraction who presented to the emergency department 06/21 with progressive worsening left knee pain that started about a week before presentation. Patient went to see Orthopedic on the same day of presentation and she was given Medrol Dosepak which she took 1 dose of and had a cortisone injection the previous . When she Re-presented there was concern for septic joint given some swelling and effusion and orthopedic surgery saw and performed arthrocentesis and she was placed on broad-spectrum antibiotics and infectious disease was consulted. Patient grew MSSA inknee joint and in blood, blood cultures subsequently cleared on repeat with antibiotics and ID recommended cefazolin for 6 weeks, PICC placed and patient worked with therapy. Initially patient was going to go to SNF however after insurance approval obtained SNF no longer able to take patient so plan was med rehab. Patient did well and was approved for med rehab. Discharge to med rehab in stable condition. Physical Exam Narrative General: Alert, oriented, no apparent distress HEENT: Atraumatic, normocephalic Eyes: Anicteric, normal conjunctiva, extraocular movements grossly intact Neck: Supple Respiratory: Clear to auscultation bilaterally, normal respiratory effort Cardiovascular: Regular rate and rhythm GI: Soft, nontender, nondistended Extremities: No significant pitting edema Musculoskeletal: Moving all extremities Neuro: No overt focal neurological deficits Skin: No rashes appreciated Psych: Cooperative Weight / BMI Weight Weight: 95.8 kg Body Mass Index (BMI) 37.4 ABG / Lab / Microbiology Data 07/05/23 06:00 07/05/23 06:00 Laboratory: Laboratory Results - last 24 hr 07/05/23 06:00: WBC 9.2, RBC 3.42 L, Hgb 10.3 L, Hct 33.5 L, MCV 98.0, MCH 30.1, MCHC 30.7 L, RDW Std Deviation 44.5 H, RDW Coeff of Patricia 12.4, Plt Count 340, MPV 9.2, Immature Gran % (Auto) 0.800, Neut % (Auto) 65.8, Lymph % (Auto) 20.0, [place] % (Auto) 10.2 H, Eos % (Auto) 2.0, Baso % (Auto) 1.2 H, Absolute Neuts (auto) 6.1, Absolute Lymphs (auto) 1.84, Nucleated RBC % 0, Sodium 137, Potassium 3.9, Chloride 105, Carbon Dioxide 26.0, Anion Gap 6, BUN 29 H, Creatinine 1.35 H, Estim Creat Clear Calc 35.74, Est GFR (MDRD) Af Amer 51 L, Est GFR (MDRD) Non-Af 42 L, BUN/Creatinine Ratio 21.5 H, Glucose 196 H, Calcium 9.0 Microbiology: Microbiology 06/24/23 12:15 Blood Culture (Wb) - Anticubital Left Blood Culture - Final No growth in 5 days. 06/23/23 08:35 Blood Culture (Wb) - Anticubital Left Blood Culture - Final No growth in 5 days. 06/23/23 07:57 Blood Culture (Wb) - Anticubital Left Blood Culture - Final No growth in 5 days. 06/21/23 15:20 Blood Culture (Wb) - Left Wrist Blood Culture - Final No growth in 5 days. 06/21/23 13:18 Wound Drainage - Aerobic & Anaerobic Swabs Gram Stain - Final 06/21/23 13:18 Wound Drainage - Aerobic & Anaerobic Swabs Wound Culture - Final Staphylococcus aureus 06/21/23 13:18 Wound Drainage - Aerobic & Anaerobic Swabs Anaerobic Culture - Final No anaerobic bacteria isolated. 06/21/23 08:20 Fluid - Synovial (joint) Gram Stain - Final 06/21/23 08:20 Fluid - Synovial (joint) Body Fluid Culture - Final Staphylococcus aureus Streptococcus mitis 06/21/23 08:20 Fluid - Synovial (joint) Anaerobic Culture - Final No anaerobic bacteria isolated. 06/21/23 16:30 Blood Culture (Wb) - Right Hand Bacteria Detection (PCR) - Final Staphylococcus aureus 06/21/23 16:30 Blood Culture (Wb) - Right Hand Blood Culture - Final Staphylococcus aureus 06/20/23 23:10 Urine, Clean Catch Urine Culture - Final Mixed Gram Pos & Gram Neg Org D/C Instructions Discharge Diet: Carb Control Diet Meaningful Use Info Meaningful Use Diagnoses (Choose all that apply): None applicable Discharge Plan Admission Admit Date/Time: 06/21/23 02:07 Primary Reason for Your Visit: Knee pain Attending Provider: Lashae Bearden Primary Care Provider: Emile Esposito Consulting Providers: Hebert Ruiz; Anatoliy Moreno; Jaya Cheung; Sarina Bryan; Shayla Kennedy Instructions Patient Instructions: ED Fall Prevention Additional Instructions / Restrictions: DISCHARGE INSTRUCTIONS PLEASE READ *Please take this with you to your next doctors appointment* -You will need to remain on IV cefazolin with a stop date of 07/21/2023 and weekly BMP, CBC, and ESR will need to be drawn and faxed to [phone] -Please follow-up with infectious disease in 2 weeks upon discharge. Please call their office to schedule hospital follow-up appointment upon discharge. -Please follow-up with orthopedic in 1 week upon discharge. Please call their office to schedule hospital follow-up appointment upon discharge. -Please call your primary care provider's office upon discharge to schedule a hospital follow up within 1 week. -For any concerning signs or symptoms please call 911 or proceed to the nearest emergency department Discharge Orders/Prescriptions Prescriptions: New cefazolin 2 gram recon soln 2 g IV Q8H 24 Days Rx Instructions: dx: MSSA bacteremia stop date 07/21/23 weekly bmp, cbc, and esr; fax to [phone] polyethylene glycol 3350 17 gram Powder In Packet 17 g PO DAILY Qty: 0 0RF losartan 25 mg Tablet 25 mg PO DAILY Qty: 0 0RF acetaminophen 500 mg Tablet 1,000 mg PO Q8 Qty: 0 0RF Continued Eliquis 5 mg tablet 5 mg PO BID Qty: 180 3RF atorvastatin 40 mg tablet 40 mg PO QHS Qty: 90 3RF Farxiga 10 mg tablet 10 mg PO DAILY Qty: 90 3RF metoprolol succinate 50 mg tablet extended release 24 hr 50 mg PO DAILY Qty: 90 3RF amiodarone 200 mg tablet 200 mg PO DAILY mecobalamin (vitamin B12) 5,000 mcg tablet,disintegrating 5,000 mcg PO DAILY magnesium 250 mg tablet 500 mg PO DAILY furosemide 40 mg tablet 40 mg PO DAILY trazodone 100 mg tablet 100 mg PO DAILY insulin lispro [Humalog KwikPen Insulin] 100 unit/mL insulin pen 20 unit subcut TID Qty: 54 1RF duloxetine 60 mg capsule,delayed release(DR/EC) 120 mg PO QHS ferrous sulfate [FeroSul] 325 mg (65 mg iron) Tablet 325 mg PO DAILY@1200 Qty: 0 0RF nystatin [Nyamyc] 100,000 unit/gram Powder 1 applic topical BID PRN (Reason: redness) Protocol: *Topical Application Instructions APPLICATION INSTRUCTIONS: apply to affected areas Trulicity 0.75 mg/0.5 mL pen injector 0.75 mg subcut QWEEK Qty: 2 2RF Changed insulin glargine [Lantus Solostar U-100 Insulin] 100 unit/mL (3 mL) insulin pen 12 unit subcut QHS Qty: 15 0RF Discontinued methylprednisolone [Medrol (Bird)] 4 mg tablets,dose pack See Rx Instructions PO PER PKG DIR Qty: 21 0RF Rx Instructions: PO PER PKG DIR acetaminophen [Tylenol] 325 mg Tablet 650 mg PO Q4H PRN PRN (Reason: Fever, pain 1-06/21) Qty: 0 0RF potassium chloride 10 mEq capsule, extended release 10 meq PO DAILY Qty: 30 0RF Referrals / Follow Up: Emile Esposito MD [Primary Care Provider] - Within 1 Week Jaya Cheung MD [Med Staff - Active Staff] - Within 2 Weeks Anatoliy Moreno MD [Med Staff - Active Staff] - Within 1 Week Disposition Disposition (needs filled in before D/C Order can be placed): Inpatient Rehab Unit/Facility Charges/Coding Visit Charges Inpatient E&M: 59684 Disch Hosp >30min
[2023-07-05] MEDS: 0.9% Saline Lock 10 ML Syringe IV (13:36)
--- NOTE | 2023-07-05 13:46 | PHA.DC.MC.R ---
Pharmacy [facility] has performed discharge medication reconciliation and counseling for this patient. The patient's discharge medication list was reviewed for discrepancies and discrepancies were resolved. The patient was counseled on the following discharge medications and changes in medications for homegoing were reviewed. The Reason for Use, instructions for use, and potential side effects were reviewed for all new medications. The patient's questions regarding all of their medications were answered. 1. Cefazolin 2 grams Q8H 2. Losartan 25 mg daily 3. Acetaminophen 1000 mg PO Q8H 4. Polyethylene glycol 17 grams PO daily The patient was able to verbally demonstrate an understanding of their discharge medications. Medications at Discharge Home Medications duloxetine 60 mg capsule,delayed release 120 mg PO QHS mental health 11/08/21 ferrous sulfate 325 mg (65 mg iron) tablet (FeroSul) 325 mg PO DAILY@1200 #0 tabs 09/17/22 apixaban 5 mg tablet (Eliquis) 5 mg PO BID #180 tabs 11/04/22 atorvastatin 40 mg tablet 40 mg PO QHS cholesterol #90 tabs 11/04/22 dapagliflozin propanediol 10 mg tablet (Farxiga) 10 mg PO DAILY #90 tabs 02/09/23 amiodarone 200 mg tablet 200 mg PO DAILY 05/09/23 furosemide 40 mg tablet 40 mg PO DAILY 05/09/23 insulin lispro 100 unit/mL subcutaneous pen (Humalog KwikPen (U-100) Insulin) 20 unit (0.2 mL) subcut TID diabetes #54 mL 05/09/23 magnesium 250 mg tablet 500 mg PO DAILY supplement 05/09/23 mecobalamin (vitamin B12) 5,000 mcg disintegrating tablet 5,000 mcg PO DAILY supplement 05/09/23 trazodone 100 mg tablet 100 mg PO DAILY insomnia 05/09/23 dulaglutide 0.75 mg/0.5 mL subcutaneous pen injector (Trulicity) 0.75 mg (0.5 mL) subcut QWEEK #2 mL 05/18/23 metoprolol succinate 50 mg tablet,extended release 24 hr 50 mg PO DAILY #90 tabs 06/07/23 nystatin 100,000 unit/gram topical powder (Nyamyc) 1 applic topical BID PRN redness 06/21/23 cefazolin 2 gram intravenous solution 2 g IV Q8H 24 days 06/27/23 acetaminophen 500 mg tablet 1,000 mg (2 x 500 mg) PO Q8 #0 tabs 07/05/23 insulin glargine 100 unit/mL (3 mL) subcutaneous pen (Lantus Solostar U-100 Insulin) 12 unit (0.12 mL) subcut QHS diabetes #15 mL 07/05/23 losartan 25 mg tablet 25 mg PO DAILY #0 tabs 07/05/23 polyethylene glycol 3350 17 gram oral powder packet 17 g PO DAILY #0 ea 07/05/23
--- NOTE | 2023-07-05 14:31 | NURSING ---
ptcalled out and wanting a snack for bs of 69 per jose a device. peanut butter given and crawler dragline operator to go get orange juice for pt. will monitor in 15min for recheck
--- NOTE | 2023-07-05 14:57 | NURSING ---
crackers and pb with juice given. dr. quesada on floor and notified and will adjust insulin orders accordingly
--- NOTE | 2023-07-05 15:46 | NURSING ---
pt bs now up to [address] quesada aware. ok for dc to rehab. report called to karley with no questions voiced
== END 2023-07-05 16:11 | DRG 313 ==
LOC: ED 23:29 → PCU 06-21 02:38
PROVIDERS: Internal Medicine; Orthopaedic Surgery Sports Medicine; Student in an Organized Health Care Education/Training Program; Admitting Provider Hospitalist; Emergency Provider Emergency Medicine; PCP Family Medicine; Visit Provider Internal Medicine
PROC: 0S9D3ZX Drainage of Left Knee Joint, Percutaneous Approach, Diagnostic (ICD-10-PCS; CPT 29870; principal; 2023-06-21 11:40)
DX: M00.062 Staphylococcal arthritis, left knee (principal); R78.81 Bacteremia; E87.0 Hyperosmolality and hypernatremia; I13.0 Hypertensive heart and chronic kidney disease with heart failure and stage 1 through stage 4 chronic kidney disease, or unspecified chronic kidney disease; I48.19 Other persistent atrial fibrillation; K56.49 Other impaction of intestine; E11.21 Type 2 diabetes mellitus with diabetic nephropathy; I50.22 Chronic systolic (congestive) heart failure; N18.32 Chronic kidney disease, stage 3b; E11.22 Type 2 diabetes mellitus with diabetic chronic kidney disease; E11.65 Type 2 diabetes mellitus with hyperglycemia; Z79.4 Long term (current) use of insulin; E78.5 Hyperlipidemia, unspecified; E87.5 Hyperkalemia; E66.9 Obesity, unspecified; B95.61 Methicillin susceptible Staphylococcus aureus infection as the cause of diseases classified elsewhere; N30.00 Acute cystitis without hematuria; G47.00 Insomnia, unspecified; Z68.37 Body mass index [BMI] 37.0-37.9, adult; Z79.01 Long term (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 of anticoagulants; Z79.52 Long term (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 of systemic steroids; Z79.899 Other long term (current) drug therapy; Z86.73 Personal history of transient ischemic attack (TIA), and cerebral infarction without residual deficits
CPT/HCPCS: 36415; 36569; 71045; 74177; 80048; 80076; 80329; 81001; 82945; 82962; 83036; 84484; 85025; 85652; 86140; 87015; 87040; 87070; 87075; 87077; 87086; 87088; 87102; 87116; 87149; 87186; 87205; 87206; 87641; 89050; 89051; 89060; 93005; 93308; 97110; 97116; 97162; 97166; 97530; 97535; 99284; J2020; J7040; J7120; Q9967; A4216; G0480; J2405

== ENCOUNTER 2023-07-05 16:25 | Inpatient (IN) | payer MEDICAID, SELFPAY ==
[2023-07-05 17:05] VITALS: BP 132/54; PULSE 75; RESP 18; TEMP 36.5; O2SAT 98; BMI 36.7
[2023-07-05] MEDS: Insulin Lispro 100 UNIT/ML INSULN.PEN 12 UNIT SC (17:45)
[2023-07-05] MEDS: CLARIFY ORDER NOTE (17:45)
[2023-07-05 17:55] LABS: Bedside Glucose 117 mg/dL (74-106)
[2023-07-05] MEDS: Cefazolin 2 GM in 0.9% Normal Saline (100mL Bag) 100 ML IV (21:17)
[2023-07-05] MEDS: 0.9% Saline Lock 10 ML Syringe IV (21:20)
[2023-07-05] MEDS: APIXABAN 5 MG TABLET PO (21:26)
[2023-07-05] MEDS: Acetaminophen 500 MG Tablet 1000 MG PO (21:26)
[2023-07-05] MEDS: DULoxetine Hcl 60 MG Capsule 120 MG PO (21:27)
[2023-07-05] MEDS: Atorvastatin Calcium 40 MG Tablet PO (21:28)
[2023-07-05] MEDS: traZODone 100 MG Tablet PO (21:28)
[2023-07-05] MEDS: Insulin Glargine-YFGN 100 UNIT/ML Pen 10 UNIT SC (21:33)
[2023-07-05 22:45] LABS: Bedside Glucose 144 mg/dL (74-106)
[2023-07-05 23:45] VITALS: BP 155/78; PULSE 72; RESP 17; TEMP 36.4; O2SAT 97
[2023-07-06] MEDS: Cefazolin 2 GM in 0.9% Normal Saline (100mL Bag) 100 ML IV ×3 (05:11→22:09)
[2023-07-06] MEDS: Acetaminophen 500 MG Tablet 1000 MG PO ×3 (05:11→21:56)
[2023-07-06] MEDS: 0.9% Saline Lock 10 ML Syringe IV ×3 (05:13→22:09)
[2023-07-06 05:42] LABS: Bedside Glucose 191 mg/dL (74-106)
[2023-07-06 06:28] LABS: ALB/GLOB Ratio 0.4 RATIO (0.9-2.4); AST(SGOT) 18 U/L (15-37); Alanine Aminotransfer ALT/SGPT 10 U/L (13-56); Albumin, Serum 2.4 g/dL (3.2-5.0); Alkaline Phosphatase 141 U/L (45-117); Anion Gap 6 (5-15); BUN 34 mg/dL (7-18); BUN/Creat Ratio 22.1 RATIO (10-20); Calcium,Total 9.5 mg/dL (8.5-10.1); Chloride 103 mmol/L (98-107); Creatinine, Serum 1.54 mg/dL (0.55-1.02); EST Glomerular Filtration Rate 36 mL/min (>60); Est Glom Filt Rate - Afr Amer 44 mL/min (>60); Estimated Creatinine Clearance 29.96 ml/min; Globulin 5.7 g/dL (2.2-4.2); Glucose 207 mg/dL (74-106); Magnesium 2.4 mg/dL (1.6-2.6); Phosphorus 4.2 mg/dL (2.5-4.9); Potassium 4.3 mmol/L (3.5-5.1); Protein, Total 8.1 g/dL (6.4-8.2); Sodium Level 134 mmol/L (136-145)
[2023-07-06 07:29] VITALS: O2SAT 99
[2023-07-06 07:35] VITALS: BP 139/80; PULSE 73; RESP 16; TEMP 36.3; O2SAT 97
[2023-07-06] MEDS: Insulin Lispro 100 UNIT/ML INSULN.PEN 12 UNIT SC ×3 (08:13→17:09)
[2023-07-06 08:16] VITALS: BP 139/80; PULSE 73
[2023-07-06] MEDS: Amiodarone 200 MG Tablet PO (08:16)
[2023-07-06] MEDS: Furosemide 40 MG Tablet PO (08:16)
[2023-07-06] MEDS: Metoprolol(XL)Succ 50 MG Tablet PO (08:16)
[2023-07-06] MEDS: Empagliflozin 25 MG Tablet PO (08:17)
[2023-07-06] MEDS: Magnesium Chloride 64 MG Delay Rel.Tablet 128 MG PO (08:17)
[2023-07-06] MEDS: APIXABAN 5 MG TABLET PO ×2 (08:17→21:56)
[2023-07-06] MEDS: Polyethylene Glycol 3350 17 GM PACKET PO (08:17)
[2023-07-06] MEDS: Losartan Potassium 25 MG Tablet PO (08:17)
[2023-07-06 11:56] LABS: Bedside Glucose 143 mg/dL (74-106)
[2023-07-06] MEDS: Ferrous Sulfate 325 MG Tablet PO (12:34)
[2023-07-06] MEDS: 0.9% Normal Saline (250mL Bag) 250 ML 15 ML IV (14:20)
[2023-07-06 14:22] LABS: Hematocrit 38.3 % (37-47); Hemoglobin 11.6 g/dL (12.0-15.0); Mean Corp Hgb Conc 30.3 g/dL (32-36); Mean Platelet Vol. 9.6 fl (6.2-12.0); Platelet Count 439 K/mm3 (150-450); RBC Distribution Width CV 12.5 % (11.6-14.6); RBC Distribution Width SD 44.7 fl (35.1-43.9); Red Blood Count 3.87 M/mm3 (4.2-5.4); White Blood Count 11.6 K/mm3 (4.4-11.0)
[2023-07-06 17:24] LABS: Bedside Glucose 144 mg/dL (74-106)
--- NOTE | 2023-07-06 19:08 | PCM.PN.ID ---
Physical Exam Narrative Feeling better, leg improving. No fever, no n/v/d. Const alert and no apparent distress General Appearance: cooperative Resp normal air movement and clear to auscultation bilaterally Cardio regular rate and regular rhythm GI soft to palpation, non-tender and non-distended Skin no rashes or lesions noted ID ID: Route of nutrition/ use of supplements: [] Nutritional Intake: [] IV Site: [] Castaneda Catheter: [] Assessment & Plan Assessment/Plan (1) MSSA bacteremia: PLAN: MSSA bacteremia with L knee septic arthritis. Aspiration and then OR 06/21/[address] Moreno. From OR sample, no crystals seen, wbc 219k, 92% neutrophils, cx showing gram pos. Cx with MSSA, now bcx also with mssa per pcr. Cont cefazolin. TTE showed no veg and repeat bcx cleared 06/23/23. Will order picc, 4 weeks iv cefazolin, stop date 07/21/23 with weekly labs. Improving. Will follow (2) Septic joint of left knee joint:
[2023-07-06 20:30] VITALS: BP 165/82; PULSE 66; RESP 17; TEMP 36.6; O2SAT 98; BMI 36.7
[2023-07-06] MEDS: DULoxetine Hcl 60 MG Capsule 120 MG PO (21:55)
[2023-07-06] MEDS: Atorvastatin Calcium 40 MG Tablet PO (21:56)
[2023-07-06] MEDS: traZODone 100 MG Tablet PO (21:56)
[2023-07-06 22:00] VITALS: PULSE 69; RESP 17; O2SAT 98
[2023-07-06] MEDS: Insulin Glargine-YFGN 100 UNIT/ML Pen 10 UNIT SC (22:04)
[2023-07-06 22:39] LABS: Bedside Glucose 219 mg/dL (74-106)
[2023-07-07] MEDS: Acetaminophen 500 MG Tablet 1000 MG PO ×3 (06:32→21:38)
[2023-07-07] MEDS: Cefazolin 2 GM in 0.9% Normal Saline (100mL Bag) 100 ML IV ×3 (06:35→21:45)
[2023-07-07] MEDS: 0.9% Saline Lock 10 ML Syringe IV ×4 (06:35→21:41)
[2023-07-07 07:14] LABS: Bedside Glucose 186 mg/dL (74-106)
[2023-07-07 07:30] VITALS: BP 131/56; PULSE 75; RESP 14; TEMP 37.1; O2SAT 99
--- NOTE | 2023-07-07 08:55 | HP.PCM_ITS ---
[facility] - General General Date of Admission: 07/05/23 Date of Service: 07/07/23 Chief Complaint: L knee septic arthritis and bacteremia. HPI Narrative CAMILLE OTT, is a 63 YO F with a PMH of DM II, morbid obesity, hyperlipidemia, hypertension, migraine cephalgia, osteoarthritis, anxiety/depression, atrial fibrillation, cardiomyopathy, cerebrovascular disease, chronic anticoagulation with apixaban, stage III chronic renal failure and ischemic CVA in 2021 who presented to the ED at [facility] on 06/20/23 with a complaint of increasing L knee pain. She was seen by orthopedics on 06/16/23 for L knee pain following a twisting injury and received a Kenalog injection in her L knee. She returned to Dr. Moreno's office on 06/21/23 complaining her Left knee was more painful and she could hardly ambulate secondary to the pain. Dr. Moreno felt she had a acute flare reaction and prescribed a Medrol Dosepak. The pain became unbearable and she presented to the ED just after [place] on the . Labs showed an increased white blood cell count of 19.1 with a left shift. The ESR was greater than 130 and the CRP was 126. Sodium was low at 130 and the creatinine was mildly elevated at 1.9 with her baseline ranging from 1.4-1.75. She was admitted to the hospitalist service and seen by Dr. Moreno in the AM . An arthrocentesis was done and she was started on Cefepime and Vancomycin however, the antibiotic administration was held until after I&D and cultures were done that day. The synovial fluid had a white blood cell count of 77,820 with 310 RBCs. There were 98% synovial neutrophils. Eliquis was placed on hold at admission. She was taken to the OR on 06/21/23 for I&D/arthroscopy/irrigation. Synovial fluid culture was + for MSSA and Streptococcus Mitis. BC was + for MSSA. She was seen in consult by Dr. Cheung from [place] on 06/22/23 and Vancomycin was continued until the sensitivities were available and then she was transitioned to Cefazolin. Because of the bacteremia a transthoracic ECHO was obtained and it showed a normal EF of 55% with no vegetations. Camille was transferred to the acute inpt rehab unit at [facility] on 07/05/23 for 3 hours of therapy daily to restore function/independence at or near her level prior to the knee injury. Prior to transfer a PICC line was placed for 6 weeks of IV Cefazolin. Afebrile since arrival on rehab. VSS-blood pressure since arrival on rehab have ranged from 132/54 to 165/82. Heart rate is within normal limits. Maintaining appropriate oxygen saturation on RA-97 to 98% on room air Oral intake is good PVR's 0 X 3. The blood sugar record was reviewed. Blood sugar ranged from 143-21 since she arrived on rehab. Hemoglobin A1c on 06/21/2023 was 7.4. Discussed with nursing - no problems that need addressed Reviewed the PT/OT/ST notes Medication list reviewed. Not currently taking anything for pain except scheduled Tylenol. All lab from yesterday was personally reviewed. Hemoglobin is stable at 11.6. White blood cell count is 11.6 which is up from 9.2 on 07/05/2023. Platelets are normal. Sodium is 134 and the potassium is 4.3. The BUN is 34 with a creatinine of 1.54 which is within her baseline. Fasting glucose yesterday was 207. Mag and Phos are normal. Camille is requesting that we use her Paulette for BS checks and not finger sticks. She is also requesting to have lab work drawn from the PICC. She asked about something stronger for breakthrough pain. She refused to take any more narcotics because she got severely constipated. We discussed trying Tramadol and we are going to add a second stool softener to the MiraLax. [facility] Medical History (Updated 07/11/23 @ 15:[address] Lisbet Herrera DO) Atrial fibrillation, new onset Atypical chest pain Cardiomyopathy Chest pain CHF (congestive heart failure) Chronic renal failure, stage 3b CVA (cerebral vascular accident) Diabetes mellitus type 2 in obese Effusion, left knee Finger lesion HLD (hyperlipidemia) Hypertension Hypertensive urgency Menopausal and female climacteric states Migraine headache Obesity Osteoarthritis of left knee Stage 3b chronic kidney disease (CKD) Type II diabetes mellitus Home Medications duloxetine 60 mg capsule,delayed release 120 mg PO [facility] mental health 11/08/21 [History Last Taken Unknown] ferrous sulfate 325 mg (65 mg iron) tablet (FeroSul) 325 mg PO DAILY@1200 Supplement #0 tabs 09/17/22 [Rx Last Taken Unknown] apixaban 5 mg tablet (Eliquis) 5 mg PO BID Blood thinner #180 tabs 11/04/22 [Rx Last Taken Unknown] atorvastatin 40 mg tablet 40 mg PO QHS cholesterol #90 tabs 11/04/22 [Rx Last Taken Unknown] dapagliflozin propanediol 10 mg tablet (Farxiga) 10 mg PO DAILY Diabetes #90 tabs 02/09/23 [Rx Last Taken Unknown] amiodarone 200 mg tablet 200 mg PO DAILY BP 05/09/23 [History Last Taken Unknown] furosemide 40 mg tablet 40 mg PO DAILY Fluid retention 05/09/23 [History Last Taken Unknown] magnesium 250 mg tablet 500 mg PO DAILY supplement 05/09/23 [History Last Taken Unknown] mecobalamin (vitamin B12) 5,000 mcg disintegrating tablet 5,000 mcg PO DAILY supplement 05/09/23 [History Last Taken Unknown] trazodone 100 mg tablet 100 mg PO DAILY insomnia 05/09/23 [History Last Taken Unknown] dulaglutide 0.75 mg/0.5 mL subcutaneous pen injector (GalleonulicFanBoom) 0.75 mg (0.5 mL) subcut QWEEK Diabetes #2 mL 05/18/23 [Rx Last Taken Unknown] metoprolol succinate 50 mg tablet,extended release 24 hr 50 mg PO DAILY BP #90 tabs 06/07/23 [Rx Last Taken Unknown] nystatin 100,000 unit/gram topical powder (Nyamyc) 1 applic topical BID PRN redness 06/21/23 [History Last Taken Unknown] cefazolin 2 gram intravenous solution 2 g IV Q8H Antibiotic 24 days 06/27/23 [Rx Last Taken Unknown] acetaminophen 500 mg tablet 1,000 mg (2 x 500 mg) PO Q8 Pain #0 tabs 07/05/23 [Rx Last Taken Unknown] insulin glargine 100 unit/mL (3 mL) subcutaneous pen (Lantus Solostar U-100 Insulin) 10 unit subcut QHS diabetes 07/05/23 [History Last Taken Unknown] insulin lispro 100 unit/mL subcutaneous pen (Humalog KwikPen (U-100) Insulin) 12 unit (0.12 mL) subcut TID diabetes #54 mL 07/05/23 [Rx Last Taken Unknown] losartan 25 mg tablet 25 mg PO DAILY BP #0 tabs 07/05/23 [Rx Last Taken Unknown] polyethylene glycol 3350 17 gram oral powder packet 17 g PO DAILY Stool softner #0 ea 07/05/23 [Rx Last Taken Unknown] Allergy/AdvReac Type Severity Reaction Status Date / Time ampicillin Allergy Intermediate Hives Verified 06/21/23 04:52 levofloxacin [From Levaquin] Allergy Other Verified 06/20/23 22:57 Penicillins Allergy Hives Verified 06/20/23 22:57 lisinopril AdvReac Unknown Cough Verified 06/25/23 17:57 Family History Mother Diabetes Psoriatic arthritis Rheumatoid arthritis Father COPD (chronic obstructive pulmonary disease) With concurrent tobacco use history. Myocardial infarction Heart disease Surgical History History of foot surgery Social History adopted: No household members: spouse housing: house number of children: 0 current occupational status: employed current occupation: works at [employer] pets and animals: Yes (kittens, dogs, horses) Smoking Status: Never smoker alcohol intake: never substance use type: does not use caffeine: Yes (occasionally) Type: carbonated beverages and coffee ROS Constitutional Constitutional: Reports fatigue and weakness; Denies anorexia, change in weight, chills, fever(s) or night sweats Eyes Eyes: Denies blurry vision, change in vision, eye pain or loss of vision ENT HEENT: Denies abnormal hearing, dysphagia, headache(s), hearing loss, nasal congestion or sore throat Cardiovascular Cardiovascular: Denies chest pain, dyspnea on exertion, edema, lightheadedness, orthopnea, palpitations, paroxysmal nocturnal dyspnea or syncope Respiratory/Chest Respiratory/Chest: Denies cough, dyspnea, shortness of breath at rest, shortness of breath with exertion or wheezing Gastrointestinal Gastrointestinal: Reports constipation; Denies abdominal pain, diarrhea, dyspepsia, hematemesis, hematochezia, nausea or vomiting Genitourinary Genitourinary: Denies dysuria, hematuria, nocturia, urinary frequency, urinary hesitancy, urinary incontinence or urinary urgency Musculoskeletal Musculoskeletal: Reports back pain and joint pain; Denies joint swelling or neck pain Neurologic Neurologic: Denies confusion, disequilibrium, dizziness, focal weakness, headache(s), paresthesias, seizures or tremor(s) Psychiatric Psychiatric: Denies anxiety, depression, homicidal ideation or suicidal ideation Endocrine Endocrinology: Denies change in body appearance, polydipsia or polyuria Hematologic/Lymphatic Hematologic/Lymphatic: Denies easy bleeding, easy bruising or lymphadenopathy Allergic/Immunologic Allergic/Immunologic: Denies rhinitis, eczemia or asthma Vital Signs Vital Signs Vital Signs: 07/06/23 20:30 07/06/23 22:00 Temperature 97.8 F Temperature Source Temporal Pulse Rate 66 69 Respiratory Rate 17 17 Respiratory Effort Normal Non-Labored Respiratory Depth Normal Respiratory Pattern Normal Blood Pressure 165/82 H Blood Pressure Mean 109 Blood Pressure Source Monitor Blood Pressure Position Semi-Fowlers Blood Pressure Location Right Arm Pulse Ox 98 98 Oxygen Delivery Method Room Air Room Air Weight Weight: 207 lb 7 oz Body Mass Index (BMI) 36.7 Physical Exam Const alert, oriented x3 and no apparent distress Constitutional Narrative: Making good eye contact, appropriate General Appearance: cooperative and comfortable HEENT moist oral mucous membranes HEENT Narrative: No evidence of thrush. Head and Scalp: normocephalic and atraumatic Face and Sinus: face symmetric; Negative for sinus tenderness Nose: external nose normal External Ear: external ears normal Eyes PERRL, EOMs intact bilaterally, conjunctivae normal, no scleral icterus and normal visual rankin by confrontation General Eye: normal appearance of both eyes Neck no lymphadenopathy, supple, no JVD and no carotid bruits Chest Chest: symmetrical chest wall rise Resp normal respiratory effort, no use of accessory muscles and clear to auscultation bilaterally Resp Narrative: Not tachypneic and no conversational dyspnea. Effort and Inspection: able to speak in complete sentences Cardio regular rate, regular rhythm, S1 normal heart sound, S2 normal heart sound, no murmurs, no rub and no gallops Cardio Narrative: Heart sounds are somewhat distant and this is likely secondary to body habitus. No ectopy. GI normal to inspection, nondistended, normoactive bowel sounds and non-tender GI Narrative: No guarding with palpation. Obese. Extremity normal capillary refill and no clubbing, cyanosis or edema Extremity Narrative: Negative Tone's and Tonja's signs Peripheral Pulses: Yes pulses 2+ throughout Skin Skin Narrative: No rashes, no skin breakdown. She has large areas of depigmentation over several areas of her body. Has never seen a brim blocker. Neuro oriented x3, CN's II-XII intact bilaterally and no focal motor deficits Neuro Narrative: She has defects in attention and cognition. She is not as sharp as she was prior to the stroke. Motor Exam: strength 5/5 throughout Psych affect normal Psych Narrative: Appropriate, making good eye contact. Able to stay on topic and focus. No flight of ideas. Does not appear anxious or depressed. Conversant and relating well to staff. Appearance: grossly normal Attitude: calm Activity / Motor Behavior: appropriate eye contact Speech: normal speech Mood & Affect: euthymic mood Thought Process: normal thought process Attention / Concentration: attention grossly intact Insight: insight good Results Lab / Micro Data 07/06/23 05:13 07/06/23 05:13 Labs: Laboratory Results - last 24 hr 07/06/23 05:13: WBC 11.6 H, RBC 3.87 L, Hgb 11.6 L, Hct 38.3, MCV 99.0, MCH 30.0, MCHC 30.3 L, RDW Std Deviation 44.7 H, RDW Coeff of Patricia 12.5, Plt Count 439, MPV 9.6 07/06/23 11:37: POC Glucose 143 H 07/06/23 17:06: POC Glucose 144 H 07/06/23 22:03: POC Glucose 219 H 07/07/23 06:51: POC Glucose 186 H Assessment & Plan Assessment/Plan (1) Debility: (2) Septic joint of left knee joint: QUALIFIERS: Septic arthritis organism: staphylococcal Qualified Code(s): M00.062 - Staphylococcal arthritis, left knee (3) MSSA bacteremia: (4) Effusion, left knee: (5) Diabetes mellitus type 2 in obese: (6) Chronic renal failure, stage 3b: (7) Type II diabetes mellitus: QUALIFIERS: Diabetes mellitus complication status: with hyperglycemia Diabetes mellitus mcfp insulin use: with termite control representative use Qualified Code(s): E11.65 - Type 2 diabetes mellitus with hyperglycemia; Z79.4 - shelter (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 of insulin (8) Obesity: QUALIFIERS: Obesity type: due to excess calories Obesity classification: adult class 2 (BMI 35 - 39.9) Serious obesity comorbidity presence: with serious comorbidity Body mass index: BMI 39.0-39.9 Qualified Code(s): E66.01 - Morbid (severe) obesity due to excess calories; Z68.39 - Body mass index [BMI] 39.0-39.9, adult (9) Osteoarthritis of left knee: QUALIFIERS: Osteoarthritis type: primary Qualified Code(s): M17.12 - Unilateral primary osteoarthritis, left knee (10) Hypertension: QUALIFIERS: Hypertension type: primary hypertension Qualified Code(s): I10 - Essential (primary) hypertension (11) HLD (hyperlipidemia): QUALIFIERS: Hyperlipidemia type: unspecified Qualified Code(s): E78.5 - Hyperlipidemia, unspecified (12) Cardiomyopathy: QUALIFIERS: Cardiomyopathy type: other Qualified Code(s): I42.8 - Other cardiomyopathies PLAN: More likely than not due to AF with RVR (13) Atrial fibrillation: QUALIFIERS: Atrial fibrillation type: permanent Qualified Code(s): I48.21 - Permanent atrial fibrillation (14) CVA (cerebral vascular accident): QUALIFIERS: CVA mechanism: embolism Precerebral and cerebral artery: unspecified cerebral artery Qualified Code(s): I63.40 - Cerebral infarction due to embolism of unspecified cerebral artery PLAN: Plan PLAN PT for gait stability OT for ADL's ST for evaluation Analgesics as needed Bowel protocol Fall precautions Assess for Anxiety/Depression GI prophylaxis - not necessary at this time. SHe denies epigastric pain and also denies nausea and reflux DVT prophylaxis - She is on Apixaban Follow up with PCP, Dr. Cheung and Dr. Moreno following DC from IP Rehab AM lab including CMP, CBC, Mag and Phos Tramadol and scheduled Tylenol for pain. Accucheks AC and HS Charges/Coding Visit Charges Inpatient E&M: 44530 Init Hosp L2
[2023-07-07] MEDS: Losartan Potassium 25 MG Tablet PO (09:39)
[2023-07-07] MEDS: Insulin Lispro 100 UNIT/ML INSULN.PEN 12 UNIT SC ×3 (09:39→17:17)
[2023-07-07] MEDS: Amiodarone 200 MG Tablet PO (09:39)
[2023-07-07] MEDS: Furosemide 40 MG Tablet PO (09:40)
[2023-07-07] MEDS: Magnesium Chloride 64 MG Delay Rel.Tablet 128 MG PO (09:40)
[2023-07-07] MEDS: Empagliflozin 25 MG Tablet PO (09:40)
[2023-07-07] MEDS: APIXABAN 5 MG TABLET PO ×2 (09:40→21:37)
[2023-07-07] MEDS: Polyethylene Glycol 3350 17 GM PACKET PO (09:41)
[2023-07-07 09:44] VITALS: BP 165/88; PULSE 78
[2023-07-07] MEDS: Metoprolol(XL)Succ 50 MG Tablet PO (09:44)
--- NOTE | 2023-07-07 10:21 | PCM.RU.PYE ---
Admission Information Primary Diagnosis:: Debility to to septic L knee joint. Status Changes from Prescreening?: No changes Identified Actual Problem List:: Infection, Skin Intergrity, Pain, ALteration in Cmfrt, Depression, Bowel, Constipation, Alteration in Sleep, Mobility Impaired, Self Care Deficit, Diabetes, Hyperglycemia, BP, Hypertension and Alteration-Leisure Activ. Potential Problem List:: DVT, Bleeding, Infection, UTI, Aspiration, Falls, Skin Integrity and Depression Risk of Complications DVT: RICHI Hose and - (Apixaban) Bleeding: Monitor Lab Values, Nursing to Teach Precautions for anti-coagulation therapy., Wound, if applicable, to be assessed every shift. and Stroke patients assessed for lethargy or change in status. Infection: Clinical Staff to Monitor for S/S of infection: and S/S of infection include fever, redness, warmth, etc. Urinary Tract Infection: Monitor for frequency, burning, discomfort, or incontinence. and Nursing will obtain urine sample for urinalysis and C&S when ordered. Aspiration: Clinical staff will monitor for coughing, drooling, congestion., Speech will evaluate swallowing and dsyphasia. and Nursing will monitor patient swallowing during meals. Falls: Patient will be evaluated for Fall Precautions and Patient will be placed on Fall Precautions as indicated per protocol. Skin Breakdown: Nursing will assess skin daily using assessment tool. and Nursing will place on Skin Breakdown Precautions as indicated. Pain: Clinical staff will assess patient's pain level per protocol., Medications will be given, if needed, and the pain level reassessed. and Other methods: Massage, distraction, decrease stimulus, etc. used PRN. Plan of Care Patient requires physician specializing in physical medicine and rehab oversight to provide close medical supervision of rehab issues including: Pain Management, Sleep Problems, Bowel and Bladder, Medical and co-morbidity Management, DVT prophylaxis, Rehabilitation Leadership and Coordination of treatment team Patient needs Physical Therapy: For a minimum of 1 hour and At least 5 out of 7 days Patient needs Physical Therapy to improve:: Mobility, Strengthening, Transfers, Stretching, ROM, Endurance, Stairs, Gait and Balance Patient needs Occupational Therapy: For a minimum of 1 hour and At least 5 out of 7 days Patient needs Occupational Therapy to improve ADL's incl.: Eating, Grooming, Bathing, Dressing, Toileting, Toilet transfers, Community Reintegration, Higher functioning activities, Household tasks, Adaptive Equipment, Splinting and Other activities as determined Patient requires speech therapy: For a minimum of 1 hour and At least 5 out of 7 days Patient requires speech therapy for: Swallowing, Cognition, Language Skills and Compensatory Strategies Patient requires 24/7 Rehabilitation Nursing for: Pain Issues, Identifying and preventing risk factors, Monitoring and reporting current medical conditions, Assisting with ambulation, transfer, and all ADL's, Teaching patients about disease process and medications, Family teaching, Providing safe environment, Bowel and Bladder Issues, Skin integrity and Medication Management Patient needs Device Test Engineer/ Case Management for: Discharge Planning, Arranging Home Equipment or Services and Family Interventions Patient needs Dietary and Nutrition Services for: Adequate Nutrition, Nutritional Supplements and Nutritional Education Goals Patient will remain: free from falls Patient will perform bed mobility at: MOD I level of assist. Patient will complete transfers from bed to chair at: MOD I level of assist. Patient will ambulate: - (250 feet with least restrictive device at mod I on various surfaces to allow patient to return to home/community) Patient will complete upper body dressing at: MOD I level of assist. Patient will complete lower body dressing at: MOD I level of assist. (with AE as needed) Patient will complete toileting at: MOD I level of assist. Patient will perform bathing at: MOD I level of assist. Patient will complete grooming at: MOD I level of assist. Patient will complete home management skills at: MOD I level of assist. Patient will achieve: - (2 steps with 2 handrails at contact-guard assist to allow access to home entrance) Patient will have pain level of: of 3 or less Patient's skin will: remain intact Patient will receive: adequate nutrition. Discharge Planning Pt Prognosis for Sig. Practical Improv. w/in Reasonable Time: Good Estimated Length of stay (days): 28 Anticipated D/C Destination: Home with Outpt Therapy Was Preadmission Assessment Accurate?: Yes
[2023-07-07] MEDS: traMADol 50 MG Tablet PO ×2 (10:49→19:11)
[2023-07-07] MEDS: Ferrous Sulfate 325 MG Tablet PO (12:02)
[2023-07-07 12:47] VITALS: BMI 36.7
--- NOTE | 2023-07-07 13:04 | CASEMGMT ---
Social Work IDT met with patient for Team meeting. Discussed patient's progress in PT/OT/ST/SN. Educated to [employer] with [employer] 07/11 and continued stay is not guaranteed with each review. Pt is on IV ATB through 07/21. Pt's goal is to return to PLOF prior to returning home. Pt mentioned needing a new sleep study and nurse to schedule with [facility] in coordination with pt's DC. SW will continue to follow to assist with DC planning. Will ReTeam next week. Josee Bermudez MSW BOOTH OPERATOR
--- NOTE | 2023-07-07 13:14 | NURSING ---
Pt's jose a monitor results 181 used for insulin dose
[2023-07-07 19:16] VITALS: BP 151/60; PULSE 65; RESP 17; TEMP 36.8; O2SAT 98
[2023-07-07] MEDS: traZODone 100 MG Tablet PO (21:37)
[2023-07-07] MEDS: DULoxetine Hcl 60 MG Capsule 120 MG PO (21:37)
[2023-07-07] MEDS: Atorvastatin Calcium 40 MG Tablet PO (21:38)
[2023-07-07] MEDS: Arthritis Pain Compound 60 CLICK TUBE TOPICAL (21:38)
[2023-07-07] MEDS: Senna/Docusate Sodium 1 Tablet 2 TABLET PO (21:38)
[2023-07-07] MEDS: Insulin Glargine-YFGN 100 UNIT/ML Pen 10 UNIT SC (21:43)
--- NOTE | 2023-07-07 21:52 | NURSING ---
VELIA monitor used for BS reading this hs in lieu of using glucometer and per Dr. Herrera's approval. VELIA monitor was 257 this hs.
[2023-07-07 21:57] VITALS: BMI 36.7
[2023-07-07 22:00] VITALS: PULSE 72; RESP 16; O2SAT 96
[2023-07-08] MEDS: Acetaminophen 500 MG Tablet 1000 MG PO ×3 (06:38→21:55)
[2023-07-08] MEDS: Arthritis Pain Compound 60 CLICK TUBE TOPICAL ×2 (06:38→21:55)
[2023-07-08] MEDS: Cefazolin 2 GM in 0.9% Normal Saline (100mL Bag) 100 ML IV ×3 (06:44→21:52)
[2023-07-08] MEDS: 0.9% Saline Lock 10 ML Syringe IV ×3 (06:44→21:51)
[2023-07-08 08:55] VITALS: BP 151/78; PULSE 75
[2023-07-08] MEDS: Magnesium Chloride 64 MG Delay Rel.Tablet 128 MG PO (08:55)
[2023-07-08] MEDS: Amiodarone 200 MG Tablet PO (08:55)
[2023-07-08] MEDS: Furosemide 40 MG Tablet PO (08:55)
[2023-07-08] MEDS: Metoprolol(XL)Succ 50 MG Tablet PO (08:55)
[2023-07-08] MEDS: Empagliflozin 25 MG Tablet PO (08:55)
[2023-07-08] MEDS: Senna/Docusate Sodium 1 Tablet 2 TABLET PO ×2 (08:56→21:55)
[2023-07-08] MEDS: Losartan Potassium 25 MG Tablet PO (08:56)
[2023-07-08] MEDS: Polyethylene Glycol 3350 17 GM PACKET PO (08:56)
[2023-07-08] MEDS: APIXABAN 5 MG TABLET PO ×2 (08:56→21:55)
[2023-07-08] MEDS: Insulin Lispro 100 UNIT/ML INSULN.PEN 12 UNIT SC ×3 (08:56→17:25)
[2023-07-08] MEDS: 0.9 % NaCl (Sterile) Posiflush 10 mL IV (08:57)
[2023-07-08] MEDS: traMADol 50 MG Tablet PO ×2 (09:04→17:24)
[2023-07-08 09:25] VITALS: BP 151/78; PULSE 75; RESP 16; TEMP 36.4; O2SAT 98
[2023-07-08 09:32] VITALS: BMI 36.7
[2023-07-08] MEDS: Ferrous Sulfate 325 MG Tablet PO (12:31)
--- NOTE | 2023-07-08 18:32 | NURSING ---
1530-pt made aware by phone saying bs low and bs only 69. pt given juice and will recheck in 15min per protocol. resting in bed with no other symptoms
--- NOTE | 2023-07-08 18:33 | NURSING ---
1520-pt bs still only 65 despite juice. crackers and peanut butter given. pt had been 126 at lunch but had eaten everything on tray and thought that would be enough will monitor again in 15min
--- NOTE | 2023-07-08 18:34 | NURSING ---
1540-bs up to [address] beltran aware and new order to only give 10units sched now. pt aware
[2023-07-08 21:00] VITALS: BMI 36.7
[2023-07-08] MEDS: traZODone 100 MG Tablet PO (21:55)
[2023-07-08] MEDS: Atorvastatin Calcium 40 MG Tablet PO (21:55)
[2023-07-08] MEDS: DULoxetine Hcl 60 MG Capsule 120 MG PO (21:55)
[2023-07-08] MEDS: Insulin Glargine-YFGN 100 UNIT/ML Pen 10 UNIT SC (21:56)
[2023-07-08 22:00] VITALS: BP 121/58; PULSE 70; RESP 15; RESP 16; TEMP 36.5; O2SAT 94; O2SAT 95
[2023-07-09] MEDS: traMADol 50 MG Tablet PO ×2 (00:15→11:59)
--- NOTE | 2023-07-09 00:32 | NURSING ---
Pt BS dropped to 65 @ 2004. VELIA monitor alerted pt of low BS level. Pt denied symptoms, which pt stated was unusual when low BS levels happen. Intervention of peanut butter and deya doon provided as 1st intervention and BS elevated upon recheck to 152. BS check for Glargine admin was 153 1 hour later.
[2023-07-09] MEDS: Arthritis Pain Compound 60 CLICK TUBE TOPICAL ×2 (05:22→21:56)
[2023-07-09] MEDS: Acetaminophen 500 MG Tablet 1000 MG PO ×3 (05:22→21:56)
[2023-07-09] MEDS: Cefazolin 2 GM in 0.9% Normal Saline (100mL Bag) 100 ML IV ×3 (05:35→22:03)
[2023-07-09] MEDS: 0.9% Saline Lock 10 ML Syringe IV ×3 (05:38→22:03)
[2023-07-09 08:00] VITALS: BP 141/69; PULSE 67; RESP 15; TEMP 36.5; O2SAT 96
[2023-07-09] MEDS: APIXABAN 5 MG TABLET PO ×2 (08:45→21:57)
[2023-07-09] MEDS: Losartan Potassium 25 MG Tablet PO (08:45)
[2023-07-09 08:46] VITALS: BP 141/69; PULSE 67
[2023-07-09] MEDS: Senna/Docusate Sodium 1 Tablet 2 TABLET PO ×2 (08:46→21:57)
[2023-07-09] MEDS: Metoprolol(XL)Succ 50 MG Tablet PO (08:46)
[2023-07-09] MEDS: Empagliflozin 25 MG Tablet PO (08:47)
[2023-07-09] MEDS: Furosemide 40 MG Tablet PO (08:47)
[2023-07-09] MEDS: Polyethylene Glycol 3350 17 GM PACKET PO (08:47)
[2023-07-09] MEDS: Magnesium Chloride 64 MG Delay Rel.Tablet 128 MG PO (08:47)
[2023-07-09] MEDS: Amiodarone 200 MG Tablet PO (08:48)
[2023-07-09] MEDS: Insulin Lispro 100 UNIT/ML INSULN.PEN 10 UNIT SC ×3 (08:49→18:10)
[2023-07-09] MEDS: Ferrous Sulfate 325 MG Tablet PO (11:53)
--- NOTE | 2023-07-09 14:30 | NURSING ---
Blood sugar per patient's Paulette monitor reported BS 77. Patient currently eating a snack.
[2023-07-09 17:00] VITALS: BMI 36.7
[2023-07-09 20:18] VITALS: BP 141/63; PULSE 70; RESP 16; TEMP 36.6; O2SAT 97
[2023-07-09] MEDS: DULoxetine Hcl 60 MG Capsule 120 MG PO (21:56)
[2023-07-09] MEDS: Atorvastatin Calcium 40 MG Tablet PO (21:57)
[2023-07-09] MEDS: Insulin Glargine-YFGN 100 UNIT/ML Pen 10 UNIT SC (21:57)
[2023-07-09] MEDS: traZODone 100 MG Tablet PO (21:57)
[2023-07-09 22:34] VITALS: BMI 36.7
[2023-07-10] MEDS: Acetaminophen 500 MG Tablet 1000 MG PO ×3 (05:33→21:15)
[2023-07-10] MEDS: Arthritis Pain Compound 60 CLICK TUBE TOPICAL ×2 (05:33→21:15)
[2023-07-10] MEDS: 0.9% Saline Lock 10 ML Syringe IV ×3 (05:34→21:14)
[2023-07-10] MEDS: Cefazolin 2 GM in 0.9% Normal Saline (100mL Bag) 100 ML IV ×3 (05:34→21:14)
[2023-07-10 07:19] VITALS: BP 118/50; PULSE 66; RESP 16; TEMP 36.3; O2SAT 97
[2023-07-10] MEDS: Magnesium Chloride 64 MG Delay Rel.Tablet 128 MG PO (08:31)
[2023-07-10] MEDS: Furosemide 40 MG Tablet PO (08:31)
[2023-07-10] MEDS: Insulin Lispro 100 UNIT/ML INSULN.PEN 10 UNIT SC ×3 (08:31→17:13)
[2023-07-10] MEDS: Amiodarone 200 MG Tablet PO (08:31)
[2023-07-10 08:32] VITALS: PULSE 66
[2023-07-10] MEDS: APIXABAN 5 MG TABLET PO ×2 (08:32→21:15)
[2023-07-10] MEDS: Losartan Potassium 25 MG Tablet PO (08:32)
[2023-07-10] MEDS: Senna/Docusate Sodium 1 Tablet 2 TABLET PO ×2 (08:32→21:15)
[2023-07-10] MEDS: Metoprolol(XL)Succ 50 MG Tablet PO (08:32)
[2023-07-10] MEDS: Empagliflozin 25 MG Tablet PO (08:33)
[2023-07-10] MEDS: Polyethylene Glycol 3350 17 GM PACKET PO (08:37)
[2023-07-10] MEDS: traMADol 50 MG Tablet PO (08:37)
[2023-07-10] MEDS: Ferrous Sulfate 325 MG Tablet PO (11:34)
[2023-07-10 17:00] VITALS: BMI 36.7
[2023-07-10] MEDS: Insulin Glargine-YFGN 100 UNIT/ML Pen 10 UNIT SC (21:14)
[2023-07-10] MEDS: Atorvastatin Calcium 40 MG Tablet PO (21:15)
[2023-07-10] MEDS: DULoxetine Hcl 60 MG Capsule 120 MG PO (21:15)
[2023-07-10] MEDS: traZODone 100 MG Tablet PO (21:15)
[2023-07-10 22:00] VITALS: BP 141/72; PULSE 68; RESP 16; TEMP 36.4; O2SAT 97
[2023-07-11 01:30] VITALS: BMI 36.7
[2023-07-11] MEDS: Arthritis Pain Compound 60 CLICK TUBE TOPICAL ×2 (06:21→22:54)
[2023-07-11] MEDS: 0.9% Saline Lock 10 ML Syringe IV ×4 (06:21→22:52)
[2023-07-11] MEDS: Cefazolin 2 GM in 0.9% Normal Saline (100mL Bag) 100 ML IV ×3 (06:21→22:09)
[2023-07-11] MEDS: Acetaminophen 500 MG Tablet 1000 MG PO ×3 (06:22→22:04)
[2023-07-11 08:01] VITALS: BP 125/49; PULSE 69; RESP 16; TEMP 36.8; O2SAT 96
[2023-07-11] MEDS: Insulin Lispro 100 UNIT/ML INSULN.PEN 10 UNIT SC ×3 (08:15→17:25)
[2023-07-11] MEDS: traMADol 50 MG Tablet PO ×3 (10:14→22:32)
[2023-07-11] MEDS: Empagliflozin 25 MG Tablet PO (11:18)
[2023-07-11] MEDS: Furosemide 40 MG Tablet PO (11:18)
[2023-07-11] MEDS: Amiodarone 200 MG Tablet PO (11:18)
[2023-07-11] MEDS: Losartan Potassium 25 MG Tablet PO (11:18)
[2023-07-11] MEDS: Senna/Docusate Sodium 1 Tablet 2 TABLET PO ×2 (11:18→22:03)
[2023-07-11] MEDS: APIXABAN 5 MG TABLET PO ×2 (11:18→22:03)
[2023-07-11] MEDS: Magnesium Chloride 64 MG Delay Rel.Tablet 128 MG PO (11:18)
[2023-07-11 11:19] VITALS: PULSE 69
[2023-07-11] MEDS: Ferrous Sulfate 325 MG Tablet PO (11:19)
[2023-07-11] MEDS: Polyethylene Glycol 3350 17 GM PACKET PO (11:19)
[2023-07-11] MEDS: Metoprolol(XL)Succ 50 MG Tablet PO (11:19)
--- NOTE | 2023-07-11 12:17 | PCM.PROGNOTE ---
Subjective Subjective Afebrile VSS Maintaining appropriate oxygen saturation on RA Oral intake is good The blood sugar record was reviewed. BS on Tuesday was low and the Lantus was decreased to 10 units. The last few FBS's have been in the 200's. I suspect she is getting low while sleeping and this is why the AM sugars are high. Discussed with nursing - no problems that need addressed Reviewed the PT/OT notes Medication list reviewed. Camille denies lightheadedness, vertigo, CP, SOB at rest, SOB with exertion, cough, nausea, vomiting, abd pain, diarrhea, constipation, dysuria, calf pain and ankle swelling. She also denies painful mouth and painful swallowing. Denies Vaginal DC or itching. She tells me that the pain is getting less and less every day. She is happy with the pain regimen. She only takes 1-2 Tramadol daily. Objective Data Objective Data Vital Signs: Vital Signs Temp Pulse Resp BP Pulse Ox O2 Del Method 98.2 F 69 16 125/49 H 96 Room Air 07/11/23 08:01 07/11/23 11:19 07/11/23 08:01 07/11/23 08:01 07/11/23 08:01 07/11/23 08:01 Oxygen Delivery Method Room Air Weight: 207 lb 4.105 oz Body Mass Index (BMI) 36.7 Intake & Output: Intake and Output for Last 24 Hours 07/09/23 07/10/23 07/11/23 23:59 23:59 23:59 Intake Total 910 / 910 330 / 330 110 / 110 Output Total 350 / 350 Balance 560 / 560 330 / 330 110 / 110 Lab / Micro Data 07/06/23 05:13 07/06/23 05:13 Physical Exam Const alert, oriented x3 and no apparent distress Constitutional Narrative: Making good eye contact, appropriate General Appearance: cooperative HEENT moist oral mucous membranes HEENT Narrative: No evidence thrush Resp normal respiratory effort, no use of accessory muscles and clear to auscultation bilaterally Resp Narrative: Not tachypneic and no conversational dyspnea. Effort and Inspection: able to speak in complete sentences Cardio regular rate, regular rhythm, no murmurs, no rub and no gallops Cardio Narrative: Heart sounds are somewhat distant and this is likely secondary to body habitus. No ectopy. GI normal to inspection, nondistended, normoactive bowel sounds and non-tender GI Narrative: No guarding with palpation. Obese. Skin Skin Narrative: No rashes, no skin breakdown. She has large areas of depigmentation over several areas of her body. Has never seen a wire coiner. Psych affect normal Psych Narrative: Appropriate, making good eye contact. Able to stay on topic and focus. No flight of ideas. Does not appear anxious or depressed. Conversant and relating well to staff. Assessment & Plan Assessment/Plan (1) Debility: (2) Septic joint of left knee joint: QUALIFIERS: Septic arthritis organism: staphylococcal Qualified Code(s): M00.062 - Staphylococcal arthritis, left knee (3) MSSA bacteremia: (4) Effusion, left knee: (5) Diabetes mellitus type 2 in obese: (6) Chronic renal failure, stage 3b: (7) Type II diabetes mellitus: QUALIFIERS: Diabetes mellitus complication status: with hyperglycemia Diabetes mellitus alf insulin use: with truck terminal manager use Qualified Code(s): E11.65 - Type 2 diabetes mellitus with hyperglycemia; Z79.4 - senior living (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 of insulin (8) Obesity: QUALIFIERS: Obesity type: due to excess calories Obesity classification: adult class 2 (BMI 35 - 39.9) Serious obesity comorbidity presence: with serious comorbidity Body mass index: BMI 39.0-39.9 Qualified Code(s): E66.01 - Morbid (severe) obesity due to excess calories; Z68.39 - Body mass index [BMI] 39.0-39.9, adult (9) Osteoarthritis of left knee: QUALIFIERS: Osteoarthritis type: primary Qualified Code(s): M17.12 - Unilateral primary osteoarthritis, left knee (10) Hypertension: QUALIFIERS: Hypertension type: primary hypertension Qualified Code(s): I10 - Essential (primary) hypertension (11) HLD (hyperlipidemia): QUALIFIERS: Hyperlipidemia type: unspecified Qualified Code(s): E78.5 - Hyperlipidemia, unspecified (12) Cardiomyopathy: QUALIFIERS: Cardiomyopathy type: other Qualified Code(s): I42.8 - Other cardiomyopathies PLAN: More likely than not due to AF with RVR (13) Atrial fibrillation: QUALIFIERS: Atrial fibrillation type: permanent Qualified Code(s): I48.21 - Permanent atrial fibrillation (14) CVA (cerebral vascular accident): QUALIFIERS: CVA mechanism: embolism Precerebral and cerebral artery: unspecified cerebral artery Qualified Code(s): I63.40 - Cerebral infarction due to embolism of unspecified cerebral artery (15) Hypoglycemia: PLAN: Plan 1. Continue therapy 2. Add a 3 AM blood sugar to the current Accu-Chek regimen 3. Asked nursing to keep a record of the blood sugars from the Paulette at the bedside so all the BS's are in the same place 4. Add a SSI regimen with meals 5. Recheck Lab on Tuesday/weekly while in rehab. Charges/Coding Visit Charges Inpatient E&M: 56163 Subs Hosp L2
[2023-07-11 16:30] VITALS: BMI 36.7
[2023-07-11 19:03] VITALS: BP 141/68; PULSE 66; RESP 17; TEMP 36.1; O2SAT 96
[2023-07-11] MEDS: traZODone 100 MG Tablet PO (22:02)
[2023-07-11] MEDS: DULoxetine Hcl 60 MG Capsule 120 MG PO (22:02)
[2023-07-11] MEDS: Atorvastatin Calcium 40 MG Tablet PO (22:04)
[2023-07-11] MEDS: Insulin Glargine-YFGN 100 UNIT/ML Pen 10 UNIT SC (22:18)
[2023-07-11 23:28] VITALS: BMI 36.7
--- NOTE | 2023-07-12 02:08 | NURSING ---
Using the [employer] monitor, BS check was 179 @ 02:08.
[2023-07-12] MEDS: Cefazolin 2 GM in 0.9% Normal Saline (100mL Bag) 100 ML IV ×3 (06:25→22:50)
[2023-07-12] MEDS: Acetaminophen 500 MG Tablet 1000 MG PO ×3 (06:25→21:50)
[2023-07-12] MEDS: traMADol 50 MG Tablet PO (06:25)
[2023-07-12] MEDS: Arthritis Pain Compound 60 CLICK TUBE TOPICAL ×2 (06:26→21:47)
[2023-07-12 07:32] VITALS: O2SAT 93
[2023-07-12 07:51] VITALS: BP 171/63; PULSE 69; RESP 16; TEMP 36.2; O2SAT 97
[2023-07-12] MEDS: Insulin Lispro 100 UNIT/ML INSULN.PEN SC ×2 (08:13→11:57)
[2023-07-12] MEDS: Insulin Lispro 100 UNIT/ML INSULN.PEN 10 UNIT SC ×2 (08:13→11:56)
[2023-07-12 08:14] VITALS: PULSE 69
[2023-07-12] MEDS: Furosemide 40 MG Tablet PO (08:14)
[2023-07-12] MEDS: Senna/Docusate Sodium 1 Tablet 2 TABLET PO ×2 (08:14→21:50)
[2023-07-12] MEDS: Metoprolol(XL)Succ 50 MG Tablet PO (08:14)
[2023-07-12] MEDS: Magnesium Chloride 64 MG Delay Rel.Tablet 128 MG PO (08:15)
[2023-07-12] MEDS: APIXABAN 5 MG TABLET PO ×2 (08:15→21:48)
[2023-07-12] MEDS: Losartan Potassium 25 MG Tablet PO (08:15)
[2023-07-12] MEDS: Polyethylene Glycol 3350 17 GM PACKET PO (08:16)
[2023-07-12] MEDS: Amiodarone 200 MG Tablet PO (08:16)
[2023-07-12 09:50] VITALS: BMI 36.7
[2023-07-12] MEDS: Empagliflozin 25 MG Tablet PO (10:30)
[2023-07-12 11:55] LABS: Bedside Glucose 207 mg/dL (74-106)
[2023-07-12] MEDS: Ferrous Sulfate 325 MG Tablet PO (11:58)
[2023-07-12] MEDS: 0.9% Saline Lock 10 ML Syringe IV ×2 (12:12→22:51)
[2023-07-12] MEDS: 0.9% Normal Saline (250mL Bag) 250 ML 15 ML IV (14:12)
--- NOTE | 2023-07-12 16:27 | PN_ITS ---
Subjective Subjective Afebrile VSS-blood pressures are erratic, more often than not the systolic is greater than 130. Maintaining appropriate oxygen saturation on RA Oral intake is good The blood sugar record was reviewed. She was 142 at HS, 176 at 0219 and 210 this AM. At5 lunch she was 207 and at 4:30 she was 78. She did not skip any meals today. She is getting a bedtime snack. She got 2 units of SSI at lunch + the scheduled Humalog. At home she is on 7 units short acting with each meal and a sliding scale. She does not take any Lantus. Discussed with nursing - no problems that need addressed Reviewed the PT/OT/ST notes Medication list reviewed. She is c/o muscle spasms in the left thigh and calf. Camille denies lightheadedness, vertigo, CP, SOB at rest, SOB with exertion, cough, nausea, vomiting, abd pain, diarrhea, constipation, dysuria and ankle swelling. Objective Data Objective Data Vital Signs: Vital Signs Temp Pulse Resp BP Pulse Ox O2 Del Method 97.2 F L 69 16 171/63 H 97 Room Air 07/12/23 07:51 07/12/23 08:14 07/12/23 07:51 07/12/23 07:51 07/12/23 07:51 07/12/23 07:51 Oxygen Delivery Method Room Air Weight: 207 lb 4.105 oz Body Mass Index (BMI) 36.7 Intake & Output: Intake and Output for Last 24 Hours 07/10/23 07/11/23 07/12/23 23:59 23:59 23:59 Intake Total 330 / 330 570 / 570 310 / 310 Output Total 350 / 350 400 / 400 Balance 330 / 330 220 / 220 -90 / -90 Lab / Micro Data 07/06/23 05:13 07/06/23 05:13 Labs: Laboratory Results - last 24 hr 07/12/23 11:37: POC Glucose 207 H Physical Exam Const alert, oriented x3 and no apparent distress Constitutional Narrative: Making good eye contact, appropriate General Appearance: cooperative HEENT moist oral mucous membranes HEENT Narrative: No evidence thrush Resp normal respiratory effort, no use of accessory muscles and clear to auscultation bilaterally Resp Narrative: Not tachypneic and no conversational dyspnea. Effort and Inspection: able to speak in complete sentences Cardio regular rate, regular rhythm, no murmurs, no rub and no gallops Cardio Narrative: Heart sounds are somewhat distant and this is likely secondary to body habitus. No ectopy. GI normal to inspection, nondistended, normoactive bowel sounds and non-tender GI Narrative: No guarding with palpation. Obese. Skin Skin Narrative: No rashes, no skin breakdown. She has large areas of depigmentation over several areas of her body. Has never seen a hand silvering supervisor. Psych affect normal Psych Narrative: Appropriate, making good eye contact. Able to stay on topic and focus. No flight of ideas. Does not appear anxious or depressed. Conversant and relating well to staff. Assessment & Plan Assessment/Plan (1) Debility: (2) Septic joint of left knee joint: QUALIFIERS: Septic arthritis organism: staphylococcal Qualified Code(s): M00.062 - Staphylococcal arthritis, left knee (3) MSSA bacteremia: (4) Effusion, left knee: (5) Diabetes mellitus type 2 in obese: (6) Chronic renal failure, stage 3b: (7) Type II diabetes mellitus: QUALIFIERS: Diabetes mellitus complication status: with hyperglycemia Diabetes mellitus care home insulin use: with lobsterman use Qualified Code(s): E11.65 - Type 2 diabetes mellitus with hyperglycemia; Z79.4 - senior care (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 of insulin (8) Obesity: QUALIFIERS: Obesity type: due to excess calories Obesity classification: adult class 2 (BMI 35 - 39.9) Serious obesity comorbidity presence: with serious comorbidity Body mass index: BMI 39.0-39.9 Qualified Code(s): E66.01 - Morbid (severe) obesity due to excess calories; Z68.39 - Body mass index [BMI] 39.0-39.9, adult (9) Osteoarthritis of left knee: QUALIFIERS: Osteoarthritis type: primary Qualified Code(s): M17.12 - Unilateral primary osteoarthritis, left knee (10) Hypertension: QUALIFIERS: Hypertension type: primary hypertension Qualified Code(s): I10 - Essential (primary) hypertension (11) HLD (hyperlipidemia): QUALIFIERS: Hyperlipidemia type: unspecified Qualified Code(s): E78.5 - Hyperlipidemia, unspecified (12) Cardiomyopathy: QUALIFIERS: Cardiomyopathy type: other Qualified Code(s): I42.8 - Other cardiomyopathies (13) Atrial fibrillation: QUALIFIERS: Atrial fibrillation type: permanent Qualified Code(s): I48.21 - Permanent atrial fibrillation (14) CVA (cerebral vascular accident): QUALIFIERS: CVA mechanism: embolism Precerebral and cerebral artery: unspecified cerebral artery Qualified Code(s): I63.40 - Cerebral infarction due to embolism of unspecified cerebral artery (15) Hypoglycemia: PLAN: Plan 1. Continue therapy 2. CBC and BMP are ordered for the a.m. 3. Start baclofen 5 mg p.o. 3 times daily as needed muscle spasms 4. Discontinue Lantus 5. Decrease the mealtime Lispro to 7 units (what she takes at home) and continue SSI with meals. Charges/Coding Visit Charges Inpatient E&M: 04710 Subs Hosp L2
[2023-07-12 16:52] LABS: Bedside Glucose 78 mg/dL (74-106)
[2023-07-12] MEDS: Insulin Lispro 100 UNIT/ML INSULN.PEN 7 UNIT SC (17:18)
[2023-07-12 19:36] VITALS: BP 116/56; PULSE 64; RESP 18; TEMP 36.4; O2SAT 97
--- NOTE | 2023-07-12 20:54 | NURSING ---
Spouse brought in TRULICITY and pharmacy picked up TRULICITY for [facility] mad verification and labeling. Broderick, from PHARMACY, called with concern that name and address did not match name and address on record. PHARMACIST attempted to call [facility] for verification but no answer. PHARMACIST brought med back and med was returned to pt. Pt claims that the name on packaging is pt's maiden name and pt didn't understand why old info was listed. PHARMACIST called and informed. PHARMACIST asked if pt could return med and get clarification before med could be labeled correctly. SULMAULICITY was placed in med room fridge and pt aware.
--- NOTE | 2023-07-12 21:00 | NURSING ---
Spouse brought in trulicity and RN alerted PHARMACY. PHARMACIST, Broderick, called RN to state wrong name and address was on med. PHARMACIST called [facility] for clarification but got no answer. PHARMACIST RETURNED med to floor and asked if pt could return med to [facility] and get matter striaghtened out. When nurse returned med, pt stated that the label had her maiden name, MARIZA not OTT and the address was her previous address. Med was placed in med room fridge and pt is aware that PHARMACY needs corrected information on TRULICITY in order to provide and label for admin while here.
--- NOTE | 2023-07-12 21:45 | NURSING ---
Checked Pt's blood glucose via Paulette' device at this time, reading 214. Documented on paper in room
[2023-07-12] MEDS: DULoxetine Hcl 60 MG Capsule 120 MG PO (21:49)
[2023-07-12] MEDS: traZODone 100 MG Tablet PO (21:50)
[2023-07-12] MEDS: Atorvastatin Calcium 40 MG Tablet PO (21:51)
[2023-07-13] MEDS: traMADol 50 MG Tablet PO ×2 (01:06→11:18)
--- NOTE | 2023-07-13 01:21 | NURSING ---
Discussion with pt regarding insulin regiment at this time, she report getting long acting insulin at night. Reviewed blood sugars with pt at this time, and reviewed ordered insulins-needs reinforcement with teaching.
--- NOTE | 2023-07-13 03:25 | NURSING ---
Pt awakens easily at this time, blood glucose check via Paulette' 127, documented on paper in room. Assisted Pt up to BR to void and back to bed and positioned for comfort. No other needs voiced with call light in reach.
[2023-07-13] MEDS: Acetaminophen 500 MG Tablet 1000 MG PO ×3 (05:19→21:10)
[2023-07-13] MEDS: Arthritis Pain Compound 60 CLICK TUBE TOPICAL ×2 (05:19→21:07)
[2023-07-13] MEDS: 0.9% Saline Lock 10 ML Syringe IV ×3 (05:22→21:10)
[2023-07-13] MEDS: Cefazolin 2 GM in 0.9% Normal Saline (100mL Bag) 100 ML IV ×3 (05:30→21:10)
[2023-07-13 05:44] LABS: Absolute Lymphocyte Count 1.64 X10^3/uL (0.83-4.51); Absolute Neutrophil Count 6.3 X10^3/uL (2.0-7.7); Basophil# 0.06 X10^3/uL; Basophil% 0.6 % (0-1); Eosinophil# 0.19 X10^3/uL; Hematocrit 31.3 % (37-47); Hemoglobin 9.8 g/dL (12.0-15.0); Lymphocyte # 1.64 X10^3/ul (0.83-4.51); Lymphocyte % 17.5 % (19-41); Mean Corp Hgb Conc 31.3 g/dL (32-36); Mean Corpuscular Hgb 30.1 pg (27.0-32.0); Mean Platelet Vol. 8.9 fl (6.2-12.0); Monocyte# 1.16 X10^3/uL; Monocyte% 12.4 % (0-10); NRBC Flagged by Analyzer 0 % (0-5); Neutrophil # 6.25 X10^3/uL (2.7-7.7); Platelet Count 384 K/mm3 (150-450); RBC Distribution Width CV 12.3 % (11.6-14.6); RBC Distribution Width SD 42.9 fl (35.1-43.9); Red Blood Count 3.26 M/mm3 (4.2-5.4); White Blood Count 9.4 K/mm3 (4.4-11.0)
[2023-07-13 06:01] LABS: Erythrocyte Sedimentation Rate 58 mm/hr (0-30)
--- NOTE | 2023-07-13 06:15 | NURSING ---
Bloods glucose obtained via Paulette this morning.
[2023-07-13 06:19] LABS: Anion Gap 6 (5-15); BUN 31 mg/dL (7-18); BUN/Creat Ratio 24.2 RATIO (10-20); Calcium,Total 9.1 mg/dL (8.5-10.1); Chloride 103 mmol/L (98-107); Creatinine, Serum 1.28 mg/dL (0.55-1.02); EST Glomerular Filtration Rate 45 mL/min (>60); Est Glom Filt Rate - Afr Amer 54 mL/min (>60); Estimated Creatinine Clearance 36.04 ml/min; Glucose 195 mg/dL (74-106); Potassium 4.1 mmol/L (3.5-5.1); Sodium Level 136 mmol/L (136-145)
--- NOTE | 2023-07-13 06:41 | NURSING ---
06:40 VELIA reading was 193.
[2023-07-13 06:44] VITALS: O2SAT 94
[2023-07-13] MEDS: Insulin Lispro 100 UNIT/ML INSULN.PEN 7 UNIT SC ×3 (08:35→17:49)
[2023-07-13] MEDS: Insulin Lispro 100 UNIT/ML INSULN.PEN SC ×2 (08:36→17:50)
[2023-07-13 09:15] VITALS: BP 150/53; PULSE 68; RESP 16; TEMP 36.2; O2SAT 96
[2023-07-13 10:40] VITALS: BMI 36.7
[2023-07-13] MEDS: APIXABAN 5 MG TABLET PO ×2 (10:57→21:11)
[2023-07-13] MEDS: Empagliflozin 25 MG Tablet PO (10:57)
[2023-07-13] MEDS: Polyethylene Glycol 3350 17 GM PACKET PO (10:57)
[2023-07-13] MEDS: Furosemide 40 MG Tablet PO (10:57)
[2023-07-13] MEDS: Magnesium Chloride 64 MG Delay Rel.Tablet 128 MG PO (10:57)
[2023-07-13] MEDS: Amiodarone 200 MG Tablet PO (10:57)
[2023-07-13] MEDS: Losartan Potassium 25 MG Tablet PO (10:57)
[2023-07-13 10:58] VITALS: PULSE 70
[2023-07-13] MEDS: DULAGLUTIDE 0.75 MG/0.5 ML PEN.INJCTR SC (10:58)
[2023-07-13] MEDS: Senna/Docusate Sodium 1 Tablet 2 TABLET PO ×2 (10:58→21:11)
[2023-07-13] MEDS: Metoprolol(XL)Succ 50 MG Tablet PO (10:58)
[2023-07-13] MEDS: Ferrous Sulfate 325 MG Tablet PO (12:06)
[2023-07-13] MEDS: Baclofen 10 MG Tablet 5 MG PO ×2 (16:00→22:33)
[2023-07-13 19:11] VITALS: BP 164/80; PULSE 77; RESP 16; TEMP 36.8; O2SAT 100
[2023-07-13] MEDS: DULoxetine Hcl 60 MG Capsule 120 MG PO (21:10)
[2023-07-13] MEDS: traZODone 100 MG Tablet PO (21:11)
[2023-07-13] MEDS: Atorvastatin Calcium 40 MG Tablet PO (21:11)
[2023-07-13 23:07] VITALS: BMI 36.7
--- NOTE | 2023-07-14 03:00 | NURSING ---
pt blood sugar 111
[2023-07-14] MEDS: 0.9% Saline Lock 10 ML Syringe IV ×3 (06:09→21:00)
[2023-07-14] MEDS: Cefazolin 2 GM in 0.9% Normal Saline (100mL Bag) 100 ML IV ×3 (06:09→21:00)
[2023-07-14] MEDS: Acetaminophen 500 MG Tablet 1000 MG PO ×3 (06:09→21:23)
[2023-07-14] MEDS: Arthritis Pain Compound 60 CLICK TUBE TOPICAL ×2 (06:10→21:26)
[2023-07-14 07:27] VITALS: BP 124/80; PULSE 68; RESP 16; TEMP 36.6; O2SAT 92
[2023-07-14] MEDS: Polyethylene Glycol 3350 17 GM PACKET PO (07:50)
[2023-07-14 07:51] VITALS: BP 124/80; PULSE 68
[2023-07-14] MEDS: APIXABAN 5 MG TABLET PO ×2 (07:51→21:24)
[2023-07-14] MEDS: Magnesium Chloride 64 MG Delay Rel.Tablet 128 MG PO (07:51)
[2023-07-14] MEDS: Insulin Lispro 100 UNIT/ML INSULN.PEN 7 UNIT SC ×3 (07:51→17:52)
[2023-07-14] MEDS: Empagliflozin 25 MG Tablet PO (07:51)
[2023-07-14] MEDS: Amiodarone 200 MG Tablet PO (07:51)
[2023-07-14] MEDS: Losartan Potassium 25 MG Tablet PO (07:51)
[2023-07-14] MEDS: Metoprolol(XL)Succ 50 MG Tablet PO (07:51)
[2023-07-14] MEDS: Furosemide 40 MG Tablet PO (07:51)
[2023-07-14] MEDS: Senna/Docusate Sodium 1 Tablet 2 TABLET PO ×2 (07:52→21:24)
[2023-07-14] MEDS: Baclofen 10 MG Tablet 5 MG PO ×3 (07:58→21:44)
[2023-07-14 10:36] VITALS: BMI 36.7
--- NOTE | 2023-07-14 11:48 | PCM.PROGNOTE ---
Subjective Subjective Camille was seen on team rounds today. No family was available to participate by phone. Afebrile VSS Maintaining appropriate oxygen saturation on RA Oral intake is good She has lost about 8 lbs since admission to the hospital The BS record was reviewed. The BS's are fairly well controlled. Occasional BS>200. No hypoglycemia in the past 36 hours. She tells me that she was taking Lantus at home but, she was taking only 7 units. Since we have had hypoglycemia in the AM a few times I am going to continue to hold the Lantus since the BS control looks better. Discussed with nursing - no problems that need addressed Reviewed the PT/OT/ST notes - she did not do as well on the weekly testing this week. SIT to stand and TUG scores both higher than last week. she attributes this to pain. Medication list reviewed. Camille tells me that the Baclofen worked very well for the pain in the Left thigh. She c/o her knee feeling warm to the touch. She denies fevers/chills, night sweats, CP, SOB, N/V/abd pain, vaginitis, painful mouth and painful swallowing, dysuria and calf pain. all lab drawn yesterday was personally reviewed. The white blood cell count is normal at 9.4 with 67% neutrophils. The ESR is 58, down from greater than 130 at admission to the hospital. Sodium is now normal at 136 and the potassium is 4.1. BUN is 31 and the creatinine is 1.28 which is down from 1.54 on 07/06/2023. Objective Data Objective Data Vital Signs: Vital Signs Temp Pulse Resp BP Pulse Ox O2 Del Method 97.8 F 68 16 124/80 H 92 Room Air 07/14/23 07:27 07/14/23 07:51 07/14/23 07:27 07/14/23 07:51 07/14/23 07:27 07/14/23 07:27 Oxygen Delivery Method Room Air Weight: 207 lb 4.105 oz Body Mass Index (BMI) 36.7 Intake & Output: Intake and Output for Last 24 Hours 07/12/23 07/13/23 07/14/23 23:59 23:59 23:59 Intake Total 1030 / 1030 780 / 780 110 / 110 Output Total 850 / 850 350 / 350 Balance 180 / 180 430 / 430 110 / 110 Lab / Micro Data 07/13/23 05:33 07/13/23 05:33 Physical Exam Const alert, oriented x3 and no apparent distress Constitutional Narrative: Making good eye contact, appropriate General Appearance: cooperative HEENT moist oral mucous membranes HEENT Narrative: No evidence thrush Resp normal respiratory effort, no use of accessory muscles and clear to auscultation bilaterally Resp Narrative: Not tachypneic and no conversational dyspnea. Effort and Inspection: able to speak in complete sentences Cardio regular rate, regular rhythm, no murmurs, no rub and no gallops Cardio Narrative: Heart sounds are somewhat distant and this is likely secondary to body habitus. No ectopy. GI normal to inspection, nondistended, normoactive bowel sounds and non-tender GI Narrative: No guarding with palpation. Obese. Skin Skin Narrative: No rashes, no skin breakdown. She has large areas of depigmentation over several areas of her body. Has never seen a certified massage therapist. Psych affect normal Psych Narrative: Appropriate, making good eye contact. Able to stay on topic and focus. No flight of ideas. Does not appear anxious or depressed. Conversant and relating well to staff. Assessment & Plan Assessment/Plan (1) Debility: (2) Septic joint of left knee joint: QUALIFIERS: Septic arthritis organism: staphylococcal Qualified Code(s): M00.062 - Staphylococcal arthritis, left knee (3) MSSA bacteremia: (4) Effusion, left knee: (5) Diabetes mellitus type 2 in obese: (6) Chronic renal failure, stage 3b: (7) Type II diabetes mellitus: QUALIFIERS: Diabetes mellitus complication status: with hyperglycemia Diabetes mellitus skilled nursing insulin use: with skilled nursing use Qualified Code(s): E11.65 - Type 2 diabetes mellitus with hyperglycemia; Z79.4 - superintendent terminal (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 of insulin (8) Obesity: QUALIFIERS: Obesity type: due to excess calories Obesity classification: adult class 2 (BMI 35 - 39.9) Serious obesity comorbidity presence: with serious comorbidity Body mass index: BMI 39.0-39.9 Qualified Code(s): E66.01 - Morbid (severe) obesity due to excess calories; Z68.39 - Body mass index [BMI] 39.0-39.9, adult (9) Osteoarthritis of left knee: QUALIFIERS: Osteoarthritis type: primary Qualified Code(s): M17.12 - Unilateral primary osteoarthritis, left knee (10) Hypertension: QUALIFIERS: Hypertension type: primary hypertension Qualified Code(s): I10 - Essential (primary) hypertension (11) HLD (hyperlipidemia): QUALIFIERS: Hyperlipidemia type: unspecified Qualified Code(s): E78.5 - Hyperlipidemia, unspecified (12) Cardiomyopathy: QUALIFIERS: Cardiomyopathy type: other Qualified Code(s): I42.8 - Other cardiomyopathies (13) Atrial fibrillation: QUALIFIERS: Atrial fibrillation type: permanent Qualified Code(s): I48.21 - Permanent atrial fibrillation (14) CVA (cerebral vascular accident): QUALIFIERS: CVA mechanism: embolism Precerebral and cerebral artery: unspecified cerebral artery Qualified Code(s): I63.40 - Cerebral infarction due to embolism of unspecified cerebral artery (15) Hypoglycemia: (16) JAMAAL (obstructive sleep apnea): PLAN: Plan 1. Continue therapy 2. Continue the current insulin regimen as the blood sugars are well controlled with no hypoglycemia. 3. Schedule her for an overnight sleep study, split study, on the night of discharge. Discussed with the sleep lab. 4. Continue scheduled insulin 7 units with each meal and sliding scale insulin before meals and at bedtime. Continue to hold Lantus. Stop bang score is positive for snoring, age greater than 50, BMI greater than 35, history of hypertension and daytime fatigue. She has been scheduled in the past for a sleep study by her primary care doctor for daytime somnolence but unfortunately had to cancel 2 appointments. She can fall asleep reading and watching TV. She has a history of congestive heart failure and atrial fibrillation. She had an ischemic stroke in 2021 and has problems with memory. She has daytime sleepiness and has restless legs. She gets up to use the restroom at night a few times. Charges/Coding Visit Charges Inpatient E&M: 69725 Subs Hosp L2
[2023-07-14] MEDS: Ferrous Sulfate 325 MG Tablet PO (11:57)
--- NOTE | 2023-07-14 13:34 | CASEMGMT ---
Social Work IDT met with patient for Team meeting. Discussed patient's progress in PT/OT/ST/SN. Educated to [employer] with NRD 07/18 and continued stay is not guaranteed with each review. Pt is scheduled for a sleep study on 07/25 (no sooner appointments were available). Pt and IDT requesting pt remain in [facility] for continued care, with DC 07/25 to sleep study and DC home 07/26. Pt has IV ATB through 07/21. SW discussed DC needs. No DME needs. IDT recommending OP therapy. Pt agreeable to OP therapy but will need transport until cleared to drive. SW offered [facility] for therapy and to utilize [facility]. Pt agreeable. Pt requesting transport home from sleep study. SW to contact [facility] for that date as well. Pt appreciative. SW phoned marketing for [facility] and confirmed pt can utilize for OP appts with ample notice. Also scheduled transport home from sleep study at 0600 on 07/26. ROLDAN updated pt and Ana M, Creative Manager of Sleep Lab. Faxed referral to [facility] for PT/OT. Plan: pending insurance approval, DC home from sleep study 07/26 ALTAF Nino EMT/DISPATCHER
[2023-07-14 19:36] VITALS: BP 146/66; PULSE 98; RESP 17; TEMP 36.4; O2SAT 98
[2023-07-14] MEDS: traZODone 100 MG Tablet PO (21:23)
[2023-07-14] MEDS: Atorvastatin Calcium 40 MG Tablet PO (21:23)
[2023-07-14] MEDS: DULoxetine Hcl 60 MG Capsule 120 MG PO (21:24)
[2023-07-15] MEDS: 0.9% Saline Lock 10 ML Syringe IV (05:09)
[2023-07-15] MEDS: Cefazolin 2 GM in 0.9% Normal Saline (100mL Bag) 100 ML IV ×3 (05:09→21:43)
[2023-07-15] MEDS: Acetaminophen 500 MG Tablet 1000 MG PO ×3 (05:19→21:46)
[2023-07-15] MEDS: Baclofen 10 MG Tablet 5 MG PO ×3 (07:54→21:50)
[2023-07-15] MEDS: Furosemide 40 MG Tablet PO (07:56)
[2023-07-15] MEDS: Magnesium Chloride 64 MG Delay Rel.Tablet 128 MG PO (07:56)
[2023-07-15] MEDS: Losartan Potassium 25 MG Tablet PO (07:56)
[2023-07-15 07:57] VITALS: PULSE 78
[2023-07-15] MEDS: Empagliflozin 25 MG Tablet PO (07:57)
[2023-07-15] MEDS: Metoprolol(XL)Succ 50 MG Tablet PO (07:57)
[2023-07-15] MEDS: Polyethylene Glycol 3350 17 GM PACKET PO (07:57)
[2023-07-15] MEDS: Amiodarone 200 MG Tablet PO (07:57)
[2023-07-15] MEDS: Senna/Docusate Sodium 1 Tablet 2 TABLET PO ×2 (07:58→21:44)
[2023-07-15] MEDS: APIXABAN 5 MG TABLET PO ×2 (07:58→21:46)
[2023-07-15] MEDS: Insulin Lispro 100 UNIT/ML INSULN.PEN SC (08:04)
[2023-07-15] MEDS: Insulin Lispro 100 UNIT/ML INSULN.PEN 7 UNIT SC ×3 (08:04→17:35)
[2023-07-15] MEDS: Arthritis Pain Compound 60 CLICK TUBE TOPICAL ×2 (08:05→21:59)
[2023-07-15 08:32] VITALS: BP 142/67; PULSE 78; RESP 16; TEMP 36.3; O2SAT 98
[2023-07-15 09:00] VITALS: BMI 36.5
[2023-07-15 10:00] VITALS: PULSE 78
[2023-07-15] MEDS: Ferrous Sulfate 325 MG Tablet PO (12:00)
--- NOTE | 2023-07-15 12:36 | NURSING ---
Patient blood sugar this lunch was 123. Sliding scale held but 7 units of Humalog given.
--- NOTE | 2023-07-15 14:07 | PCM.PROGNOTE ---
Subjective Subjective Afebrile VSS Maintaining appropriate oxygen saturation on RA Oral intake is good Blood sugars are under good control at the present time with no hypoglycemia. Discussed with nursing - no problems that need addressed Reviewed the PT/OT/ST notes Medication list reviewed. Paddy was on the phone when I entered the room and she is quite upset and tearful. There is a problem with her Medicaid/disability and she tells me her income is to be cut. She requested to talk to the social service worker and I relayed the message to Dana. She will be seen this afternoon. Pain is adequately controlled. She denies chest pain, shortness of breath at rest, palpitations, lightheadedness, dysuria and calf pain. Objective Data Objective Data Vital Signs: Vital Signs Temp Pulse Resp BP Pulse Ox O2 Del Method 97.4 F L 78 16 142/67 H 98 Room Air 07/15/23 08:32 07/15/23 10:00 07/15/23 08:32 07/15/23 08:32 07/15/23 08:32 07/15/23 08:32 Oxygen Delivery Method Room Air Weight: 206 lb 2.115 oz Body Mass Index (BMI) 36.5 Intake & Output: Intake and Output for Last 24 Hours 07/13/23 07/14/23 07/15/23 23:59 23:59 23:59 Intake Total 780 / 780 690 / 690 2049 Output Total 350 / 350 450 / 450 Balance 430 / 430 690 / 690 1600 / 1600 Lab / Micro Data 07/13/23 05:33 07/13/23 05:33 Physical Exam Const alert Constitutional Narrative: Tearful and upset today Resp clear to auscultation bilaterally Effort and Inspection: Negative for tachypneic Cardio regular rate, regular rhythm and no gallops GI normal to inspection, nondistended, normoactive bowel sounds, soft to palpation and non-tender Skin General Skin Exam: no breakdown Rashes: no rashes Psych Mood & Affect: anxious Assessment & Plan Assessment/Plan (1) Debility: (2) Septic joint of left knee joint: QUALIFIERS: Septic arthritis organism: staphylococcal Qualified Code(s): M00.062 - Staphylococcal arthritis, left knee (3) MSSA bacteremia: (4) Effusion, left knee: (5) Diabetes mellitus type 2 in obese: (6) Chronic renal failure, stage 3b: (7) Type II diabetes mellitus: QUALIFIERS: Diabetes mellitus complication status: with hyperglycemia Diabetes mellitus shelter insulin use: with requirements analyst use Qualified Code(s): E11.65 - Type 2 diabetes mellitus with hyperglycemia; Z79.4 - residential (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 of insulin (8) Obesity: QUALIFIERS: Obesity type: due to excess calories Obesity classification: adult class 2 (BMI 35 - 39.9) Serious obesity comorbidity presence: with serious comorbidity Body mass index: BMI 39.0-39.9 Qualified Code(s): E66.01 - Morbid (severe) obesity due to excess calories; Z68.39 - Body mass index [BMI] 39.0-39.9, adult (9) Osteoarthritis of left knee: QUALIFIERS: Osteoarthritis type: primary Qualified Code(s): M17.12 - Unilateral primary osteoarthritis, left knee (10) Hypertension: QUALIFIERS: Hypertension type: primary hypertension Qualified Code(s): I10 - Essential (primary) hypertension (11) HLD (hyperlipidemia): QUALIFIERS: Hyperlipidemia type: unspecified Qualified Code(s): E78.5 - Hyperlipidemia, unspecified (12) Cardiomyopathy: QUALIFIERS: Cardiomyopathy type: other Qualified Code(s): I42.8 - Other cardiomyopathies (13) Atrial fibrillation: QUALIFIERS: Atrial fibrillation type: permanent Qualified Code(s): I48.21 - Permanent atrial fibrillation (14) CVA (cerebral vascular accident): QUALIFIERS: CVA mechanism: embolism Precerebral and cerebral artery: unspecified cerebral artery Qualified Code(s): I63.40 - Cerebral infarction due to embolism of unspecified cerebral artery (15) Hypoglycemia: (16) JAMAAL (obstructive sleep apnea): PLAN: Plan 1. Continue therapy 2. I spoke to Ophelia MONTILLA and she will meet with the patient to discuss difficulties with Medicaid/disability. 3. Recheck lab next Tuesday 4. Antibiotics will complete after the last dose on 07/21/2023 and she will discharge on 07/22. I spoke to the sleep lab and they are trying to get her scheduled for the night of the for her sleep study. Charges/Coding Visit Charges Inpatient E&M: 24459 Subs Hosp L2
[2023-07-15] MEDS: 0.9% Normal Saline (250mL Bag) 250 ML 15 ML IV (15:29)
--- NOTE | 2023-07-15 16:48 | CASEMGMT ---
Social Work SW spoke with pt to update on [facility] Van transport for sleept study and OP appts. Pt also shared that she spoke with the social security office and unsure when pt will receive SSI checks, and unsure they will be back dated to approval date of Oct 2022. Pt explained she was promising the back dated checks to her landlord and now she unsure if those will be given. Pt is concerned about losing house d/t to being behind 6 months rent waiting for SSI check. SW educated and provided resources to several programs that will assist with providing temporary funding to keep housing until checks start. SW also provided resources for transportation for appts, etc. Pt appreciative. Josee Bermudez, [employer] AND PROMOTIONS MANAGER
[2023-07-15 17:00] VITALS: BMI 36.5
--- NOTE | 2023-07-15 18:08 | NURSING ---
patient blood sugar was 113 at dinner, withheld the sliding scale. Scheduled 7 units of Humalog administered.
[2023-07-15] MEDS: Atorvastatin Calcium 40 MG Tablet PO (21:44)
[2023-07-15] MEDS: traZODone 100 MG Tablet PO (21:45)
[2023-07-15] MEDS: DULoxetine Hcl 60 MG Capsule 120 MG PO (21:47)
[2023-07-15 22:00] VITALS: BP 127/58; PULSE 65; RESP 14; TEMP 36.3; O2SAT 100
[2023-07-16 05:00] VITALS: BMI 36.5
[2023-07-16] MEDS: Cefazolin 2 GM in 0.9% Normal Saline (100mL Bag) 100 ML IV ×3 (05:37→21:41)
[2023-07-16] MEDS: Arthritis Pain Compound 60 CLICK TUBE TOPICAL ×2 (05:38→21:41)
[2023-07-16] MEDS: Acetaminophen 500 MG Tablet 1000 MG PO ×3 (05:40→21:24)
[2023-07-16] MEDS: Insulin Lispro 100 UNIT/ML INSULN.PEN 7 UNIT SC ×3 (08:24→17:20)
[2023-07-16] MEDS: Insulin Lispro 100 UNIT/ML INSULN.PEN SC (08:24)
[2023-07-16 08:27] VITALS: BP 164/64; PULSE 74; RESP 19; TEMP 36.4; O2SAT 96
[2023-07-16] MEDS: Furosemide 40 MG Tablet PO (08:29)
[2023-07-16] MEDS: Polyethylene Glycol 3350 17 GM PACKET PO (08:29)
[2023-07-16] MEDS: Amiodarone 200 MG Tablet PO (08:29)
[2023-07-16] MEDS: Senna/Docusate Sodium 1 Tablet 2 TABLET PO ×2 (08:29→21:26)
[2023-07-16] MEDS: Empagliflozin 25 MG Tablet PO (08:29)
[2023-07-16 08:30] VITALS: BP 164/64; PULSE 74
[2023-07-16] MEDS: APIXABAN 5 MG TABLET PO ×2 (08:30→21:26)
[2023-07-16] MEDS: Losartan Potassium 25 MG Tablet PO (08:30)
[2023-07-16] MEDS: Magnesium Chloride 64 MG Delay Rel.Tablet 128 MG PO (08:30)
[2023-07-16] MEDS: Metoprolol(XL)Succ 50 MG Tablet PO (08:30)
[2023-07-16] MEDS: Baclofen 10 MG Tablet 5 MG PO ×2 (08:54→21:35)
[2023-07-16] MEDS: Ferrous Sulfate 325 MG Tablet PO (12:01)
--- NOTE | 2023-07-16 12:50 | PN_ITS ---
Subjective Subjective SetAfebrile VSS- Systolic BP is more often than not > 130 and sometimes into the 160's. She has a hx of CVA in the past. Maintaining appropriate oxygen saturation on RA Oral intake is good I reviewed the blood sugar record and the blood sugars are under excellent control with no hypoglycemia with the current regimen. Discussed with nursing - no problems that need addressed Reviewed the PT/OT/ST notes Medication list reviewed. She has not taken any tramadol since 13 July. She took the baclofen 3 times yesterday and has had it 1 time so far today. Camille tells me that she is feeling better today. She is less anxious and less upset. She has decided to go home on 07/22/2023 and the sleep lab is trying to get her sleep study scheduled for that night rather than 07/25/2023. I think she will be less anxious and more in control when she gets home. She is quite worried about her horses and her financial affairs. She tells me her pain is adequately controlled. She denies any mouth pain, painful swallowing and vaginal itching or discharge. She has no diarrhea. She denies chest pain, shortness of breath at rest, palpitations, nausea/vomiting, dysuria and calf pain. Objective Data Objective Data Vital Signs: Vital Signs Temp Pulse Resp BP Pulse Ox O2 Del Method 97.6 F L 74 19 H 164/64 H 96 Room Air 07/16/23 08:27 07/16/23 08:30 07/16/23 08:27 07/16/23 08:30 07/16/23 08:27 07/16/23 08:27 Oxygen Delivery Method Room Air Weight: 206 lb 2.115 oz Body Mass Index (BMI) 36.5 Intake & Output: Intake and Output for Last 24 Hours 07/14/23 07/15/23 07/16/23 23:59 23:59 23:59 Intake Total 690 / 690 2789.5 / 2789.5 610 / 610 Output Total 450 / 450 Balance 690 / 690 2339.5 / 2339.5 610 / 610 Lab / Micro Data 07/13/23 05:33 07/13/23 05:33 Physical Exam Const alert, oriented x3 and no apparent distress Constitutional Narrative: Making good eye contact, appropriate General Appearance: cooperative HEENT moist oral mucous membranes HEENT Narrative: No evidence thrush Resp normal respiratory effort, no use of accessory muscles and clear to auscultation bilaterally Resp Narrative: Not tachypneic and no conversational dyspnea. Effort and Inspection: able to speak in complete sentences Cardio regular rate, regular rhythm, no murmurs, no rub and no gallops Cardio Narrative: Heart sounds are somewhat distant and this is likely secondary to body habitus. No ectopy. GI normal to inspection, nondistended, normoactive bowel sounds and non-tender GI Narrative: No guarding with palpation. Obese. Skin Skin Narrative: No rashes, no skin breakdown. She has large areas of depigmentation over several areas of her body. Has never seen a hand folder. Psych affect normal Psych Narrative: Appropriate, making good eye contact. Able to stay on topic and focus. No flight of ideas. Does not appear anxious or depressed. Conversant and relating well to staff. Assessment & Plan Assessment/Plan (1) Debility: (2) Septic joint of left knee joint: QUALIFIERS: Septic arthritis organism: staphylococcal Qualified Code(s): M00.062 - Staphylococcal arthritis, left knee (3) MSSA bacteremia: (4) Effusion, left knee: (5) Diabetes mellitus type 2 in obese: (6) Chronic renal failure, stage 3b: (7) Type II diabetes mellitus: QUALIFIERS: Diabetes mellitus complication status: with hyperglycemia Diabetes mellitus care home insulin use: with care home use Qualified Code(s): E11.65 - Type 2 diabetes mellitus with hyperglycemia; Z79.4 - prison (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 of insulin (8) Obesity: QUALIFIERS: Obesity type: due to excess calories Obesity classification: adult class 2 (BMI 35 - 39.9) Serious obesity comorbidity presence: with serious comorbidity Body mass index: BMI 39.0-39.9 Qualified Code(s): E66.01 - Morbid (severe) obesity due to excess calories; Z68.39 - Body mass index [BMI] 39.0-39.9, adult (9) Osteoarthritis of left knee: QUALIFIERS: Osteoarthritis type: primary Qualified Code(s): M17.12 - Unilateral primary osteoarthritis, left knee (10) Hypertension: QUALIFIERS: Hypertension type: primary hypertension Qualified Code(s): I10 - Essential (primary) hypertension (11) HLD (hyperlipidemia): QUALIFIERS: Hyperlipidemia type: unspecified Qualified Code(s): E78.5 - Hyperlipidemia, unspecified (12) Cardiomyopathy: QUALIFIERS: Cardiomyopathy type: other Qualified Code(s): I42.8 - Other cardiomyopathies (13) Atrial fibrillation: QUALIFIERS: Atrial fibrillation type: permanent Qualified Code(s): I48.21 - Permanent atrial fibrillation (14) CVA (cerebral vascular accident): QUALIFIERS: CVA mechanism: embolism Precerebral and cerebral artery: unspecified cerebral artery Qualified Code(s): I63.40 - Cerebral infarction due to embolism of unspecified cerebral artery (15) Hypoglycemia: (16) JAMAAL (obstructive sleep apnea): PLAN: Plan 1. Continue therapy 2. Plan discharge for 07/22/2023. She will conclude her antibiotic treatment on 07/21/2023. 3. We will let Dr. Cadet and Kait GUERRERO know about the high blood sugars in the morning that resolved with discontinuing Lantus and using sliding scale insulin at bedtime. 4. Blood pressures are on the high side frequently and I think this is related to pain and agitation. We will add a as needed antihypertensive for blood pressure greater than 150/85. She can follow-up with her primary care physician postdischarge and hopefully her blood pressure will decrease when she is out of the hospital and at home taking care of her horses. Charges/Coding Visit Charges Inpatient E&M: 69545 Subs Hosp L2
[2023-07-16 13:06] VITALS: BMI 36.5
[2023-07-16] MEDS: 0.9% Saline Lock 10 ML Syringe IV ×3 (13:51→21:32)
[2023-07-16 20:22] VITALS: BP 145/59; PULSE 69; RESP 18; TEMP 36.8; O2SAT 97
[2023-07-16] MEDS: DULoxetine Hcl 60 MG Capsule 120 MG PO (21:24)
[2023-07-16 21:25] VITALS: PULSE 86
[2023-07-16] MEDS: Metoprolol(XL)Succ 25 MG Tablet PO (21:25)
[2023-07-16] MEDS: traZODone 100 MG Tablet PO (21:26)
[2023-07-16] MEDS: Atorvastatin Calcium 40 MG Tablet PO (21:26)
--- NOTE | 2023-07-16 21:40 | NURSING ---
hs VELIA reading was 134 this hs for blood sugar level.
[2023-07-16 22:00] VITALS: PULSE 69; RESP 17; O2SAT 97
[2023-07-16 22:28] VITALS: BMI 36.5
[2023-07-17] VITALS (7 sets, daily range): BP systolic 104–168; BP diastolic 47–86; PULSE 77–96; RESP 18–24; TEMP 36.2–37.3; O2SAT 95–100; BMI 36.5
[2023-07-17] MEDS: traMADol 50 MG Tablet PO (03:19)
[2023-07-17] MEDS: Baclofen 10 MG Tablet 5 MG PO ×4 (03:27→20:56)
--- NOTE | 2023-07-17 04:18 | NURSING ---
Pt awakened in pain and called for pain meds. Pt claims her POLAR care fell off while sleeping at some point and she felt the pain escalating. Pt leg repositioned, per pt request, but pt tearful and crying out loudly.
--- NOTE | 2023-07-17 05:22 | NURSING ---
Ultram prn and baclofen prn given. Polar care refreshed. Pt yelled out with repositioning that pt requested. Pain meds provided were uneventful for pt and pt rates pain out of control. Pt can be heard crying. Hospitalist, Dr Marixa Muniz, called re: elevated pain as pt stated she needs something else for pain. This RN asked hospitalist to consider x1 dose of Oxyir which pt had refused up to now but pt willing to try. Dr stated she would put in the order. put in PRN instead of x1 dose. RN will address will bring to S attention in the a.m. in order to d/c order once this dose is given.
[2023-07-17] MEDS: oxyCODONE 5 MG Tablet PO (05:35)
[2023-07-17] MEDS: Cefazolin 2 GM in 0.9% Normal Saline (100mL Bag) 100 ML IV ×3 (05:37→20:55)
[2023-07-17] MEDS: 0.9% Saline Lock 10 ML Syringe IV ×2 (05:37→11:17)
[2023-07-17] MEDS: Arthritis Pain Compound 60 CLICK TUBE TOPICAL ×2 (05:46→20:59)
[2023-07-17] MEDS: Acetaminophen 500 MG Tablet 1000 MG PO ×3 (05:47→20:58)
[2023-07-17] MEDS: Labetalol 100 MG Tablet PO (06:11)
--- NOTE | 2023-07-17 06:45 | NURSING ---
Paulette reading for a.m. was 184.
--- NOTE | 2023-07-17 08:00 | NURSING ---
Patient had been screaming, crying, yelling out due to increased pain to left knee. Patient reported when her polar care was removed, her knee hyperextended and extreme pain shot up to her left buttock. ELYSIA Fields did assessment and this nurse assessed her knee. Cidra skin tone noted around left knee with some swelling but this is per her normal assessment. Dr. Herrera provided new orders and patient aware. Patient agreed she was anxious and she would take her Ativan as ordered x 1. Patient reported she would call her and tell him she was ok. had called this nurse to inquire about what happened to his . This nurse reported she had increased pain but no fall noted and we would provide pain management today and monitoring.
[2023-07-17] MEDS: LORazepam 1 MG Tablet PO (08:07)
[2023-07-17 10:08] LABS: Anion Gap 10 (5-15); BUN 28 mg/dL (7-18); BUN/Creat Ratio 18.2 RATIO (10-20); Calcium,Total 9.5 mg/dL (8.5-10.1); Chloride 101 mmol/L (98-107); Creatinine, Serum 1.54 mg/dL (0.55-1.02); EST Glomerular Filtration Rate 36 mL/min (>60); Est Glom Filt Rate - Afr Amer 44 mL/min (>60); Estimated Creatinine Clearance 29.96 ml/min; Glucose 212 mg/dL (74-106); Potassium 3.6 mmol/L (3.5-5.1); Sodium Level 136 mmol/L (136-145)
[2023-07-17 10:28] LABS: Erythrocyte Sedimentation Rate 62 mm/hr (0-30)
[2023-07-17 10:31] LABS: Absolute Lymphocyte Count 1.85 X10^3/uL (0.83-4.51); Absolute Neutrophil Count 8.6 X10^3/uL (2.0-7.7); Basophil# 0.06 X10^3/uL; Basophil% 0.5 % (0-1); Eosinophil# 0.02 X10^3/uL; Eosinophils% 0.2 % (0-5); Hemoglobin 11.3 g/dL (12.0-15.0); Lymphocyte # 1.85 X10^3/ul (0.83-4.51); Lymphocyte % 15.4 % (19-41); Mean Corp Hgb Conc 31.4 g/dL (32-36); Mean Corpuscular Hgb 30.1 pg (27.0-32.0); Mean Platelet Vol. 9.3 fl (6.2-12.0); Monocyte# 1.36 X10^3/uL; Monocyte% 11.4 % (0-10); NRBC Flagged by Analyzer 0 % (0-5); Neutrophil # 8.61 X10^3/uL (2.7-7.7); Neutrophil % 71.8 % (47-70); Platelet Count 398 K/mm3 (150-450); RBC Distribution Width CV 12.2 % (11.6-14.6); RBC Distribution Width SD 42.6 fl (35.1-43.9); Red Blood Count 3.75 M/mm3 (4.2-5.4)
[2023-07-17] MEDS: Amiodarone 200 MG Tablet PO (11:16)
[2023-07-17] MEDS: Losartan Potassium 25 MG Tablet PO (11:16)
[2023-07-17] MEDS: APIXABAN 5 MG TABLET PO ×2 (11:17→20:58)
[2023-07-17] MEDS: Empagliflozin 25 MG Tablet PO (11:18)
[2023-07-17] MEDS: Metoprolol(XL)Succ 50 MG Tablet PO (11:19)
[2023-07-17] MEDS: Senna/Docusate Sodium 1 Tablet 2 TABLET PO ×2 (11:19→20:57)
[2023-07-17] MEDS: Magnesium Chloride 64 MG Delay Rel.Tablet 128 MG PO (11:20)
[2023-07-17] MEDS: Furosemide 40 MG Tablet PO (11:21)
[2023-07-17] MEDS: Insulin Lispro 100 UNIT/ML INSULN.PEN 7 UNIT SC ×2 (11:24→17:18)
[2023-07-17] MEDS: Insulin Lispro 100 UNIT/ML INSULN.PEN SC ×2 (11:24→17:18)
[2023-07-17] MEDS: Polyethylene Glycol 3350 17 GM PACKET PO (11:25)
[2023-07-17] MEDS: Ferrous Sulfate 325 MG Tablet PO (11:26)
--- NOTE | 2023-07-17 20:28 | NURSING ---
Blood sugar 105 per pt's Paulette 2.
[2023-07-17] MEDS: DULoxetine Hcl 60 MG Capsule 120 MG PO (20:56)
[2023-07-17] MEDS: Metoprolol(XL)Succ 25 MG Tablet PO (20:57)
[2023-07-17] MEDS: Atorvastatin Calcium 40 MG Tablet PO (20:58)
[2023-07-17] MEDS: traZODone 100 MG Tablet PO ×2 (20:58)
[2023-07-18] MEDS: Baclofen 10 MG Tablet 5 MG PO ×3 (05:32→21:33)
[2023-07-18] MEDS: Arthritis Pain Compound 60 CLICK TUBE TOPICAL ×2 (05:32→21:29)
[2023-07-18] MEDS: Acetaminophen 500 MG Tablet 1000 MG PO ×3 (05:32→21:36)
[2023-07-18] MEDS: Polyethylene Glycol 3350 17 GM PACKET PO (05:34)
[2023-07-18] MEDS: Senna/Docusate Sodium 1 Tablet 2 TABLET PO ×2 (05:34→21:35)
[2023-07-18] MEDS: Cefazolin 2 GM in 0.9% Normal Saline (100mL Bag) 100 ML IV ×3 (05:39→21:29)
[2023-07-18 05:44] VITALS: BMI 36.5
[2023-07-18] MEDS: Amiodarone 200 MG Tablet PO (08:07)
[2023-07-18] MEDS: Magnesium Chloride 64 MG Delay Rel.Tablet 128 MG PO (08:10)
[2023-07-18 08:11] VITALS: PULSE 70
[2023-07-18] MEDS: Furosemide 40 MG Tablet PO (08:11)
[2023-07-18] MEDS: Losartan Potassium 25 MG Tablet PO (08:11)
[2023-07-18] MEDS: Metoprolol(XL)Succ 50 MG Tablet PO (08:11)
[2023-07-18] MEDS: APIXABAN 5 MG TABLET PO ×2 (08:11→21:34)
[2023-07-18] MEDS: Insulin Lispro 100 UNIT/ML INSULN.PEN SC (08:11)
[2023-07-18] MEDS: Empagliflozin 25 MG Tablet PO (08:11)
[2023-07-18] MEDS: Insulin Lispro 100 UNIT/ML INSULN.PEN 7 UNIT SC ×3 (08:12→17:26)
[2023-07-18 09:50] VITALS: BP 100/47; PULSE 70; RESP 18; TEMP 35.9; O2SAT 98
[2023-07-18 09:51] VITALS: BMI 36.5
[2023-07-18] MEDS: Magnesium Hydroxide 30 ML UDC PO (11:33)
--- NOTE | 2023-07-18 11:40 | NURSING ---
B.S. check at 0535 was 173 and at 1138 130
--- NOTE | 2023-07-18 11:53 | PN_ITS ---
Subjective Subjective Afebrile VSS Maintaining appropriate oxygen saturation on RA Oral intake is good Discussed with nursing - no problems that need addressed Reviewed the PT/OT/ST notes Medication list reviewed. There was a lot of hysteria with screaming and crying and elevated BP yesterday morning because of L knee and hip pain. She did not have a fall. She says that nursing hyperextended her LLE when trying to assist her. She has been afebrile. Lab done yesterday showed a white blood cell count of 12 with 71.8% neutrophils and normal immature granulocytes. The ESR was 62 which is stable and certainly down from admission to the hospital when it was over the 130. The CRP was 65.6 which is down from 126 at admission to the hospital. BMP showed a sodium of 136, potassium of 3.6, bicarb of 25 and a BUN of 28 with a creatinine of 1.54 which is up from 1.28 on 07/13/2023. We did not order an XRAY because she did not fall. She has been emotionally labile during her stay on rehab and she has had outbursts more than once with crying and c/o pain. She is prescribed Tramadol 50 mg Q 6H but she had not taken any Tramadol since 07/13 until yesterday and she only took 1 dose yesterday. She refuses to take pain medicat ion because it makes me constipated. Dr. Muniz ordered Oxycodone PRN. According to the nurses notes from Tuesday night she awake around 3 AM c/o severe pain in the left knee. She stated that her polar care pads fell off while she was sleeping and the pain got worse. She was calling out loudly. This morning she told me that nursing dropped her........she did not have a fall and there is nothing in the nurses notes saying she was dropped The pain and hysteria was not relieved with the pain medication or Baclofen but, the pain resolved after 1 mg of Ativan PO. This evening she is telling me that she has numbness in both legs and pain radiating into her legs, L>R. She tells me that the L hip is painful and that she has a hx of back problems. I observed her walking and she has an antalgic gait today. The Left leg is externally rotated when she is ambulating. She has a lip. She wanted to use a bedside commode but, she was encouraged to ambulate to the BR with the FWW and she did OK although she c.o pain. She has not had any W/U for back pain at this institution. She initially made progress with therapy but, for the past 4-5 days or more she has been regressing and not performing as well on testing. I think there is a great deal of emotional overlay with this patient. She has a hx of anxiety/depression and she gets herself so worked up about many different things that she has tachycardia, elevated BP, increased pain and screaming. The pain finally resolved Tuesday after 1 mg of Ativan. She is much calmer today and we have had no drama. She was not dropped and she did not have a fall. She denies chest pain, shortness of breath, lightheadedness, palpitations, nausea/vomiting/abdominal pain, dysuria and calf pain. She has not taken any Oxycodone or any Tramadol today. She has had Tylenol and Baclofen (for muscle spasms in the L thigh anteriorly Objective Data Objective Data Vital Signs: Vital Signs Temp Pulse Resp BP Pulse Ox O2 Del Method 96.7 F L 70 18 100/47 L 98 Room Air 07/18/23 09:50 07/18/23 09:50 07/18/23 09:50 07/18/23 09:50 07/18/23 09:50 07/18/23 09:50 Oxygen Delivery Method Room Air Weight: 206 lb 2.115 oz Body Mass Index (BMI) 36.5 Intake & Output: Intake and Output for Last 24 Hours 07/17/23 07/17/23 07/18/23 00:59 23:59 23:59 Intake Total 930 / 930 Output Total 120 / 120 Balance 810 / 810 Lab / Micro Data 07/17/23 09:20 07/17/23 09:20 Physical Exam Const alert, oriented x3 and no apparent distress Constitutional Narrative: Making good eye contact, appropriate General Appearance: cooperative HEENT moist oral mucous membranes HEENT Narrative: No evidence thrush Resp normal respiratory effort, no use of accessory muscles and clear to auscultation bilaterally Resp Narrative: Not tachypneic and no conversational dyspnea. Effort and Inspection: able to speak in complete sentences Cardio regular rate, regular rhythm, no murmurs, no rub and no gallops Cardio Narrative: Heart sounds are somewhat distant and this is likely secondary to body habitus. No ectopy. GI normal to inspection, nondistended, normoactive bowel sounds and non-tender GI Narrative: No guarding with palpation. Obese. Extremity no calf tenderness Extremity Narrative: The L knee is not erythematous. There is no significant increase in warmth to touch when compared to the R. The swelling has gone down since admission to [facility] and the thigh anteriorly is soft with no cramping. She has subjective numbness in both legs. General Extremity: Negative for cyanosis Skin Skin Narrative: No rashes, no skin breakdown. She has large areas of depigmentation over several areas of her body. Has never seen a plate furnace operator. Psych affect normal Psych Narrative: Appropriate, making good eye contact. Able to stay on topic and focus. No flight of ideas. Does not appear anxious or depressed. Conversant and relating well to staff. Assessment & Plan Assessment/Plan (1) Debility: (2) Septic joint of left knee joint: QUALIFIERS: Septic arthritis organism: staphylococcal Qualified Code(s): M00.062 - Staphylococcal arthritis, left knee (3) MSSA bacteremia: (4) Effusion, left knee: (5) Diabetes mellitus type 2 in obese: (6) Chronic renal failure, stage 3b: (7) Type II diabetes mellitus: QUALIFIERS: Diabetes mellitus complication status: with hyperglycemia Diabetes mellitus intermediate project manager insulin use: with correction use Qualified Code(s): E11.65 - Type 2 diabetes mellitus with hyperglycemia; Z79.4 - tank terminal gauger (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 of insulin (8) Obesity: QUALIFIERS: Obesity type: due to excess calories Obesity classification: adult class 2 (BMI 35 - 39.9) Serious obesity comorbidity presence: with serious comorbidity Body mass index: BMI 39.0-39.9 Qualified Code(s): E66.01 - Morbid (severe) obesity due to excess calories; Z68.39 - Body mass index [BMI] 39.0-39.9, adult (9) Osteoarthritis of left knee: QUALIFIERS: Osteoarthritis type: primary Qualified Code(s): M17.12 - Unilateral primary osteoarthritis, left knee (10) Hypertension: QUALIFIERS: Hypertension type: primary hypertension Qualified Code(s): I10 - Essential (primary) hypertension (11) HLD (hyperlipidemia): QUALIFIERS: Hyperlipidemia type: unspecified Qualified Code(s): E78.5 - Hyperlipidemia, unspecified (12) Cardiomyopathy: QUALIFIERS: Cardiomyopathy type: other Qualified Code(s): I42.8 - Other cardiomyopathies (13) Atrial fibrillation: QUALIFIERS: Atrial fibrillation type: permanent Qualified Code(s): I48.21 - Permanent atrial fibrillation (14) CVA (cerebral vascular accident): QUALIFIERS: CVA mechanism: embolism Precerebral and cerebral artery: unspecified cerebral artery Qualified Code(s): I63.40 - Cerebral infarction due to embolism of unspecified cerebral artery (15) Hypoglycemia: (16) JAMAAL (obstructive sleep apnea): PLAN: Plan 1. Continue therapy 2. I tend to think there is less participation as we progress in therapy and more complaints. She is c/o terrible pain but, she has not taken any PRN pain medication today? She changes the story about why she has increased pain early Tuesday morning and now says she was dropped. This is not true. She is very upset about her horses and not being able to see them and about possibly having a decrease in her Medicaid/disability because she has also been receiving her ex-'s benefit in addition to disability and she now says she can not live on this and will have to go back to work. We will finish the prescribed course of antibiotics and DC on July 22 to home with her current . 3. Will have her follow up with pain management at [facility] and she requested a new PCP so I recommended Dr. Marie Henning or Dr. Pace to her. 4. I think she needs psychotherapy after leaving here. Charges/Coding Visit Charges Inpatient E&M: 50131 Subs Hosp L2
[2023-07-18] MEDS: Ferrous Sulfate 325 MG Tablet PO (13:38)
[2023-07-18] MEDS: 0.9% Saline Lock 10 ML Syringe IV ×2 (14:19→21:30)
[2023-07-18] MEDS: 0.9% Normal Saline (250mL Bag) 250 ML 15 ML IV (14:20)
[2023-07-18 19:35] VITALS: BP 113/50; PULSE 71; RESP 18; TEMP 36.3; O2SAT 94
--- NOTE | 2023-07-18 21:30 | NURSING ---
HS Blood sugar 130
[2023-07-18 21:35] VITALS: BP 131/57; PULSE 65
[2023-07-18] MEDS: Metoprolol(XL)Succ 25 MG Tablet PO (21:35)
[2023-07-18] MEDS: Atorvastatin Calcium 40 MG Tablet PO (21:35)
[2023-07-18] MEDS: DULoxetine Hcl 60 MG Capsule 120 MG PO (21:36)
[2023-07-18 21:59] VITALS: BMI 36.5
--- NOTE | 2023-07-19 06:00 | NURSING ---
AM blood sugar 154
[2023-07-19] MEDS: Cefazolin 2 GM in 0.9% Normal Saline (100mL Bag) 100 ML IV ×3 (06:09→21:40)
[2023-07-19] MEDS: Arthritis Pain Compound 60 CLICK TUBE TOPICAL ×2 (06:09→21:39)
[2023-07-19] MEDS: 0.9% Saline Lock 10 ML Syringe IV ×2 (06:10→12:51)
[2023-07-19] MEDS: Baclofen 10 MG Tablet 5 MG PO ×3 (06:10→21:40)
[2023-07-19] MEDS: Acetaminophen 500 MG Tablet 1000 MG PO ×3 (06:10→21:41)
[2023-07-19 07:46] VITALS: BP 120/72; PULSE 65; RESP 16; TEMP 37.2; O2SAT 99
[2023-07-19] MEDS: Insulin Lispro 100 UNIT/ML INSULN.PEN SC (08:20)
[2023-07-19] MEDS: Insulin Lispro 100 UNIT/ML INSULN.PEN 7 UNIT SC ×3 (08:20→18:25)
[2023-07-19] MEDS: APIXABAN 5 MG TABLET PO ×2 (08:20→21:40)
[2023-07-19 08:21] VITALS: BP 120/72; PULSE 65
[2023-07-19] MEDS: Metoprolol(XL)Succ 50 MG Tablet PO (08:21)
[2023-07-19] MEDS: Furosemide 40 MG Tablet PO (08:21)
[2023-07-19] MEDS: Amiodarone 200 MG Tablet PO (08:21)
[2023-07-19] MEDS: Losartan Potassium 25 MG Tablet PO (08:21)
[2023-07-19] MEDS: Magnesium Chloride 64 MG Delay Rel.Tablet 128 MG PO (08:21)
[2023-07-19] MEDS: Empagliflozin 25 MG Tablet PO (08:21)
[2023-07-19] MEDS: Senna/Docusate Sodium 1 Tablet 2 TABLET PO ×2 (08:22→21:41)
[2023-07-19] MEDS: Polyethylene Glycol 3350 17 GM PACKET PO (08:23)
--- NOTE | 2023-07-19 10:53 | NURSING ---
AM blood Sugar check done this AM w/ Paulette Continuous Glucose monitoring system- Glucose value of 194
--- NOTE | 2023-07-19 11:20 | NURSING ---
PICC line dressing change completed w/ Filter replacement. Patient tolerated well. PICC Flushing well.
--- NOTE | 2023-07-19 11:22 | NURSING ---
PICC line dressing change complete w/ Needless adapter changes and Curos Tips. Patient tolerated well. Returned to normal position and denies any needs.
--- NOTE | 2023-07-19 11:22 | NURSING ---
Lunch BS Check completed via [place] monitor; BS was 113
[2023-07-19] MEDS: Ferrous Sulfate 325 MG Tablet PO (12:50)
[2023-07-19] MEDS: Magnesium Hydroxide 30 ML UDC PO (13:07)
--- NOTE | 2023-07-19 13:45 | PN_ITS ---
Subjective Subjective Patient seen, examined. She has no new problems, concerns, issues, complaints. Objective Data Objective Data Vital Signs: Vital Signs Temp Pulse Resp BP Pulse Ox O2 Del Method 98.9 F 65 16 120/72 99 Room Air 07/19/23 07:46 07/19/23 08:21 07/19/23 07:46 07/19/23 08:21 07/19/23 07:46 07/19/23 07:46 Oxygen Delivery Method Room Air Weight: 93.5 kg Body Mass Index (BMI) 36.5 Intake & Output: Intake and Output for Last 24 Hours 07/17/23 07/18/23 07/19/23 23:59 23:59 23:59 Intake Total 1740 / 1740 2060 / 2060 Output Total 420 / 870 800 / 800 Balance 1320 / 870 1260 / 1260 Lab / Micro Data Attestation: I reviewed the patient's lab results. 07/17/23 09:20 07/17/23 09:20 Physical Exam Const alert General Appearance: cooperative HEENT normocephalic Eyes PERRL and EOMs intact bilaterally Neck supple, no JVD and no carotid bruits Resp normal respiratory effort, normal air movement and clear to auscultation bilaterally Cardio regular rate and regular rhythm GI normal to inspection, nondistended, normoactive bowel sounds, non-tender and non-distended Extremity normal capillary refill General Extremity: Negative for edema Skin no rashes or lesions noted General Skin Exam: no breakdown Psych affect normal Appearance: appropriate Assessment & Plan Assessment/Plan (1) Debility: (2) Septic joint of left knee joint: (3) JMAAAL (obstructive sleep apnea): (4) CVA (cerebral vascular accident): QUALIFIERS: CVA mechanism: embolism Precerebral and cerebral artery: unspecified cerebral artery Qualified Code(s): I63.40 - Cerebral inf arction due to embolism of unspecified cerebral artery (5) Diabetes mellitus type 2 in obese: (6) Type II diabetes mellitus: QUALIFIERS: Diabetes mellitus complication status: with hyperglycemia Diabetes mellitus jail insulin use: with jail use Qualified Code(s): E11.65 - Type 2 diabetes mellitus with hyperglycemia; Z79.4 - jail (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 of insulin (7) Hypertension: QUALIFIERS: Hypertension type: primary hypertension Qualified Code(s): I10 - Essential (primary) hypertension (8) HLD (hyperlipidemia): QUALIFIERS: Hyperlipidemia type: unspecified Qualified Code(s): E78.5 - Hyperlipidemia, unspecified (9) Atrial fibrillation: QUALIFIERS: Atrial fibrillation type: permanent Qualified Code(s): I48.21 - Permanent atrial fibrillation (10) CHF (congestive heart failure): QUALIFIERS: Heart failure type: systolic Heart failure chronicity: chronic Qualified Code(s): I50.22 - Chronic systolic (congestive) heart failure PLAN: Plan 63 year old female with below past medical history hospitalized for left septic knee, S. Aureus bacteremia, admitted to for 3 hours daily rehabilitation, strengthening, intravenous antibiotics, prior to discharge home with . * Debility - PT/OT/ST. * Pain - Tylenol 1000mg q8, Tramadol 50mg q6h prn, 100mg qhs, Oxycodone 5mg q4h prn, Arthritis compound 2 clicks topical bid. * Bowel - Miralax 17gm daily, senna/colace 2 tablets bid, Dulcolax 10mg pr x 1 prn, MOM 30ml po x 1 prn. * DVT prophylaxis - on Eliquis. * Atrial fibrillation - Metoprolol succinate 50mg qam, 25mg qhs, Amiodarone 200mg daily, Eliquis 5mg bid. * Hyperlipidemia - Atorvastatin 40mg qhs. * Muscle spasm - Baclofen 5mg tid. * Left septic knee/Staph bacteremia - Cefazolin 2gm iv q8 thru 07/21/2023. * Diabetes Mellitus II - Trulicity 0.75mg per week, Jardiance 25mg daily, Humalog 7 units tidcm, SSI. * Depression - Duloxetine 120mg qhs. * Iron deficiency anemia - Ferrous sulfate 325mg daily. * Heart failure preserved ejection fraction - Metoprolol succinate 50mg qam, 25mg qhs, Losartan 25mg daily, Lasix 40mg daily. * Hypertension - Metoprolol succinate 50mg qam, 25mg qhs, Losartan 25mg daily, Labetalol 100mg q6h prn HTN. * Hypomagnesemia - Magnesium Chloride 128mg daily. * Tinea Corporis - Miconazole topical bid. Capacity Capacity Assessment Tool Can the patient make a choice & communicate that choice?: Yes Can the patient understand benefits, risks and alternatives?: Yes Can the patient make a logical, rational choice?: Yes Is the choice the patient makes consistent w/ their values?: Yes Is there an impending, emergent risk to the patient?: No Does the patient have an Advance Directive?: No Is there a Surrogate Available?: Yes i.e. HCPOA: Yes i.e. close relative (spouse, child, parent, sibling)?: Yes
[2023-07-19 14:27] VITALS: BMI 36.5
--- NOTE | 2023-07-19 18:15 | NURSING ---
Patient noted to have a blood glucose reading of 97 this evening around dinner time. Pt requested orange juice- OJ given. Will recheck bs Before giving insulin administration d/t patient receiving late lunch.
--- NOTE | 2023-07-19 18:27 | NURSING ---
Recheck of blood glucose monitor- reading 158 after OJ and Dinner. Patient requested only scheduled 7 units to be given vs 7 units and sliding scale.
[2023-07-19] MEDS: traZODone 100 MG Tablet PO (21:40)
[2023-07-19] MEDS: DULoxetine Hcl 60 MG Capsule 120 MG PO (21:40)
[2023-07-19] MEDS: Atorvastatin Calcium 40 MG Tablet PO (21:41)
[2023-07-19 21:46] VITALS: BP 142/60; PULSE 63
[2023-07-19] MEDS: Metoprolol(XL)Succ 25 MG Tablet PO (21:46)
[2023-07-19 22:00] VITALS: BP 142/60; PULSE 63; RESP 14; TEMP 36.8; O2SAT 99
[2023-07-20 00:19] VITALS: BMI 36.5
[2023-07-20] MEDS: Cefazolin 2 GM in 0.9% Normal Saline (100mL Bag) 100 ML IV ×3 (06:21→22:13)
[2023-07-20] MEDS: Arthritis Pain Compound 60 CLICK TUBE TOPICAL ×2 (06:23→22:17)
[2023-07-20] MEDS: Baclofen 10 MG Tablet 5 MG PO ×2 (06:25→14:25)
[2023-07-20] MEDS: Acetaminophen 500 MG Tablet 1000 MG PO ×3 (06:27→22:04)
[2023-07-20 07:22] LABS: Absolute Lymphocyte Count 1.42 X10^3/uL (0.83-4.51); Basophil# 0.05 X10^3/uL; Basophil% 0.6 % (0-1); Eosinophil# 0.13 X10^3/uL; Eosinophils% 1.5 % (0-5); Lymphocyte # 1.42 X10^3/ul (0.83-4.51); Lymphocyte % 16.8 % (19-41); Mean Corp Hgb Conc 31.4 g/dL (32-36); Mean Corpuscular Hgb 30.6 pg (27.0-32.0); Mean Corpuscular Volume 97.2 fL (81-99); Mean Platelet Vol. 9.4 fl (6.2-12.0); Monocyte# 0.76 X10^3/uL; NRBC Flagged by Analyzer 0 % (0-5); Neutrophil # 6.04 X10^3/uL (2.7-7.7); Neutrophil % 71.6 % (47-70); Platelet Count 331 K/mm3 (150-450); RBC Distribution Width CV 12.3 % (11.6-14.6); RBC Distribution Width SD 44.3 fl (35.1-43.9); White Blood Count 8.4 K/mm3 (4.4-11.0)
[2023-07-20 07:39] LABS: Anion Gap 4 (5-15); BUN 28 mg/dL (7-18); BUN/Creat Ratio 20.4 RATIO (10-20); Calcium,Total 9.1 mg/dL (8.5-10.1); Chloride 102 mmol/L (98-107); Creatinine, Serum 1.37 mg/dL (0.55-1.02); EST Glomerular Filtration Rate 42 mL/min (>60); Est Glom Filt Rate - Afr Amer 50 mL/min (>60); Estimated Creatinine Clearance 33.67 ml/min; Glucose 211 mg/dL (74-106); Potassium 4.3 mmol/L (3.5-5.1); Sodium Level 134 mmol/L (136-145)
[2023-07-20 07:48] LABS: Erythrocyte Sedimentation Rate 79 mm/hr (0-30)
[2023-07-20 08:11] VITALS: BP 143/53; PULSE 64; RESP 18; TEMP 36.9; O2SAT 98
[2023-07-20] MEDS: Insulin Lispro 100 UNIT/ML INSULN.PEN SC ×2 (09:12→17:23)
[2023-07-20] MEDS: Furosemide 40 MG Tablet PO (09:12)
[2023-07-20] MEDS: Insulin Lispro 100 UNIT/ML INSULN.PEN 7 UNIT SC ×3 (09:12→17:23)
[2023-07-20 09:14] VITALS: PULSE 64
[2023-07-20] MEDS: Magnesium Chloride 64 MG Delay Rel.Tablet 128 MG PO (09:14)
[2023-07-20] MEDS: Amiodarone 200 MG Tablet PO (09:14)
[2023-07-20] MEDS: Senna/Docusate Sodium 1 Tablet 2 TABLET PO (09:14)
[2023-07-20] MEDS: Losartan Potassium 25 MG Tablet PO (09:14)
[2023-07-20] MEDS: APIXABAN 5 MG TABLET PO ×2 (09:14→22:15)
[2023-07-20] MEDS: Metoprolol(XL)Succ 50 MG Tablet PO (09:14)
[2023-07-20] MEDS: Empagliflozin 25 MG Tablet PO (09:15)
[2023-07-20 10:39] VITALS: BMI 36.5
[2023-07-20] MEDS: DULAGLUTIDE 0.75 MG/0.5 ML PEN.INJCTR SC (11:17)
[2023-07-20] MEDS: Ferrous Sulfate 325 MG Tablet PO (11:17)
--- NOTE | 2023-07-20 12:14 | NURSING ---
Pt's blood sugar at 1116 was 122 according to her own blood glucose monitor. This RN administered pt's scheduled 7 units of insulin. No sliding scale insulin coverage needed
--- NOTE | 2023-07-20 12:18 | CASEMGMT ---
Social Work SW updated pt that insurance approved stay until [place] 07/25 to sleep study. Pt appreciative. Josee Bermudez, VB NET PROGRAMMER HEAVY LINE TECHNICIAN
[2023-07-20] MEDS: 0.9% Saline Lock 10 ML Syringe IV (14:26)
--- NOTE | 2023-07-20 20:05 | PN_ITS ---
Subjective Subjective Patient seen, examined. Sitting up in chair, eating breakfast. She is looking forward to going home to care for her horses. Objective Data Objective Data Vital Signs: Vital Signs Temp Pulse Resp BP Pulse Ox O2 Del Method 98.4 F 64 18 143/53 H 98 Room Air 07/20/23 08:11 07/20/23 09:14 07/20/23 08:11 07/20/23 08:11 07/20/23 08:11 07/20/23 09:23 Oxygen Delivery Method Room Air Weight: 93.5 kg Body Mass Index (BMI) 36.5 Intake & Output: Intake and Output for Last 24 Hours 07/18/23 07/19/23 07/20/23 23:59 23:59 23:59 Intake Total 1740 / 1740 2872 / 2872 1410 / 1410 Output Total 420 / 870 801 / 801 500 / 500 Balance 1320 / 870 2071 / 2071 910 / 910 Lab / Micro Data Attestation: I reviewed the patient's lab results. 07/20/23 07:00 07/20/23 07:00 Labs: Laboratory Results - last 24 hr 07/20/23 07:00: WBC 8.4, RBC 3.60 L, Hgb 11.0 L, Hct 35.0 L, MCV 97.2, MCH 30.6, MCHC 31.4 L, RDW Std Deviation 44.3 H, RDW Coeff of Patricia 12.3, Plt Count 331, MPV 9.4, Immature Gran % (Auto) 0.500, Neut % (Auto) 71.6 H, Lymph % (Auto) 16.8 L, [place] % (Auto) 9.0, Eos % (Auto) 1.5, Baso % (Auto) 0.6, Absolute Neuts (auto) 6.0, Absolute Lymphs (auto) 1.42, Nucleated RBC % 0, ESR 79 H, Sodium 134 L, Potassium 4.3, Chloride 102, Carbon Dioxide 28.0, Anion Gap 4 L, BUN 28 H, Creatinine 1.37 H, Estim Creat Clear Calc 33.67, Est GFR (MDRD) Af Amer 50 L, Est GFR (MDRD) Non-Af 42 L, BUN/Creatinine Ratio 20.4 H, Glucose 211 H, Calcium 9.1 Physical Exam Const alert General Appearance: cooperative HEENT normocephalic Eyes PERRL and EOMs intact bilaterally Neck supple, no JVD and no carotid bruits Resp normal respiratory effort, normal air movement and clear to auscultation bilaterally Cardio regular rate and regular rhythm GI normal to inspection, nondistended, normoactive bowel sounds, non-tender and non-distended Extremity normal capillary refill Extremity Narrative: Left upper extremity PICC line. General Extremity: Negative for edema Skin no rashes or lesions noted General Skin Exam: no breakdown Psych affect normal Appearance: appropriate Assessment & Plan Assessment/Plan (1) Debility: (2) Septic joint of left knee joint: (3) JAMAAL (obstructive sleep apnea): (4) CVA (cerebral vascular accident): QUALIFIERS: CVA mechanism: embolism Precerebral and cerebral artery: unspecified cerebral artery Qualified Code(s): I63.40 - Cerebral infarction due to embolism of unspecified cerebral artery (5) Diabetes mellitus type 2 in obese: (6) Type II diabetes mellitus: QUALIFIERS: Diabetes mellitus complication status: with hyperglycemia 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 use Qualified Code(s): E11.65 - Type 2 diabetes mellitus with hyperglycemia; Z79.4 - manager intermediate (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 of insulin (7) Hypertension: QUALIFIERS: Hypertension type: primary hypertension Qualified Code(s): I10 - Essential (primary) hypertension (8) HLD (hyperlipidemia): QUALIFIERS: Hyperlipidemia type: unspecified Qualified Code(s): E78.5 - Hyperlipidemia, unspecified (9) Atrial fibrillation: QUALIFIERS: Atrial fibrillation type: permanent Qualified Code(s): I48.21 - Permanent atrial fibrillation (10) CHF (congestive heart failure): QUALIFIERS: Heart failure type: systolic Heart failure chronicity: chronic Qualified Code(s): I50.22 - Chronic systolic (congestive) heart failure PLAN: Plan 63 year old female with below past medical history hospitalized for left septic knee, S. Aureus bacteremia, admitted to for 3 hours daily rehabilitation, strengthening, intravenous antibiotics, prior to discharge home with . * Debility - PT/OT/ST. * Pain - Tylenol 1000mg q8, Tramadol 50mg q6h prn, 100mg qhs, Oxycodone 5mg q4h prn, Arthritis compound 2 clicks topical bid. * Bowel - Miralax 17gm daily, senna/colace 2 tablets bid, Dulcolax 10mg pr x 1 prn, MOM 30ml po x 1 prn. * DVT prophylaxis - on Eliquis. * Atrial fibrillation - Metoprolol succinate 50mg qam, 25mg qhs, Amiodarone 200mg daily, Eliquis 5mg bid. * Hyperlipidemia - Atorvastatin 40mg qhs. * Muscle spasm - Baclofen 5mg tid. * Left septic knee/Staph bacteremia - Cefazolin 2gm iv q8 thru 07/21/2023. * Diabetes Mellitus II - Trulicity 0.75mg per week, Jardiance 25mg daily, Humalog 7 units tidcm, SSI. * Depression - Duloxetine 120mg qhs. * Iron deficiency anemia - Ferrous sulfate 325mg daily. * Heart failure preserved ejection fraction - Metoprolol succinate 50mg qam, 25mg qhs, Losartan 25mg daily, Lasix 40mg daily. * Hypertension - Metoprolol succinate 50mg qam, 25mg qhs, Losartan 25mg daily, Labetalol 100mg q6h prn HTN. * Hypomagnesemia - Magnesium Chloride 128mg daily. * Tinea Corporis - Miconazole topical bid. Capacity Capacity Assessment Tool Can the patient make a choice & communicate that choice?: Yes Can the patient understand benefits, risks and alternatives?: Yes Can the patient make a logical, rational choice?: Yes Is the choice the patient makes consistent w/ their values?: Yes Is there an impending, emergent risk to the patient?: No Does the patient have an Advance Directive?: No Is there a Surrogate Available?: Yes i.e. HCPOA: Yes i.e. close relative (spouse, child, parent, sibling)?: Yes
[2023-07-20 22:00] VITALS: BP 110/41; PULSE 70; RESP 16; TEMP 36.2; O2SAT 98
[2023-07-20 22:13] VITALS: BP 110/41; PULSE 70
[2023-07-20] MEDS: DULoxetine Hcl 60 MG Capsule 120 MG PO (22:13)
[2023-07-20] MEDS: Metoprolol(XL)Succ 25 MG Tablet PO (22:13)
[2023-07-20] MEDS: Atorvastatin Calcium 40 MG Tablet PO (22:15)
[2023-07-20] MEDS: traZODone 100 MG Tablet PO (22:16)
[2023-07-21 02:35] VITALS: BMI 36.5
[2023-07-21] MEDS: Arthritis Pain Compound 60 CLICK TUBE TOPICAL ×2 (05:52→21:26)
[2023-07-21] MEDS: Baclofen 10 MG Tablet 5 MG PO ×3 (05:53→21:23)
[2023-07-21] MEDS: Acetaminophen 500 MG Tablet 1000 MG PO ×3 (05:54→21:22)
[2023-07-21] MEDS: traMADol 50 MG Tablet PO (06:01)
[2023-07-21] MEDS: Cefazolin 2 GM in 0.9% Normal Saline (100mL Bag) 100 ML IV ×3 (06:01→21:22)
[2023-07-21 07:43] VITALS: BP 125/55; PULSE 65; RESP 16; TEMP 36.6; O2SAT 98
[2023-07-21] MEDS: Insulin Lispro 100 UNIT/ML INSULN.PEN 7 UNIT SC ×2 (08:18→17:27)
[2023-07-21] MEDS: Insulin Lispro 100 UNIT/ML INSULN.PEN SC (08:19)
[2023-07-21 08:23] VITALS: PULSE 65
[2023-07-21] MEDS: Empagliflozin 25 MG Tablet PO (08:23)
[2023-07-21] MEDS: Metoprolol(XL)Succ 50 MG Tablet PO (08:23)
[2023-07-21] MEDS: Losartan Potassium 25 MG Tablet PO (08:24)
[2023-07-21] MEDS: Amiodarone 200 MG Tablet PO (08:24)
[2023-07-21] MEDS: Furosemide 40 MG Tablet PO (08:24)
[2023-07-21] MEDS: APIXABAN 5 MG TABLET PO ×2 (08:24→21:21)
[2023-07-21] MEDS: Magnesium Chloride 64 MG Delay Rel.Tablet 128 MG PO (08:24)
[2023-07-21] MEDS: Senna/Docusate Sodium 1 Tablet 2 TABLET PO ×2 (08:24→21:22)
--- NOTE | 2023-07-21 08:27 | CASEMGMT ---
Social Work IDT met with patient for Team meeting. Discussed patient's progress in PT/OT/ST/SN. Confirmed [facility] Medicaid approved with DC 07/25 to sleep study then home 07/26. SW coordinated [facility] PT/OT. No DME needs. [facility] Van to transport home. No other needs noted. Josee Bermudez, TIRE MOLD TESTER GROUNDS MAINTENANCE SUPERVISOR
[2023-07-21] MEDS: 0.9% Saline Lock 10 ML Syringe IV ×4 (08:31→21:21)
[2023-07-21] MEDS: Gabapentin 100 MG Capsule PO ×2 (11:57→17:27)
[2023-07-21] MEDS: Ferrous Sulfate 325 MG Tablet PO (11:57)
[2023-07-21 12:06] VITALS: BMI 36.5
[2023-07-21] MEDS: 0.9% Normal Saline (250mL Bag) 250 ML 15 ML IV (14:35)
[2023-07-21 20:23] VITALS: BP 122/50; PULSE 64; RESP 14; TEMP 36.1; O2SAT 96
[2023-07-21] MEDS: DULoxetine Hcl 60 MG Capsule 120 MG PO (21:21)
[2023-07-21] MEDS: traZODone 100 MG Tablet PO (21:21)
[2023-07-21] MEDS: Atorvastatin Calcium 40 MG Tablet PO (21:22)
[2023-07-21 21:25] VITALS: BP 111/45; PULSE 62
[2023-07-21] MEDS: Metoprolol(XL)Succ 25 MG Tablet PO (21:25)
--- NOTE | 2023-07-21 21:52 | NURSING ---
pt HS blood sugar 97
[2023-07-21 23:05] VITALS: BMI 36.5
[2023-07-22] MEDS: Baclofen 10 MG Tablet 5 MG PO ×3 (06:01→20:03)
[2023-07-22] MEDS: Acetaminophen 500 MG Tablet 1000 MG PO ×3 (06:01→20:03)
[2023-07-22] MEDS: Arthritis Pain Compound 60 CLICK TUBE TOPICAL ×2 (06:03→20:08)
[2023-07-22] MEDS: Gabapentin 100 MG Capsule PO ×3 (08:21→17:29)
[2023-07-22] MEDS: Insulin Lispro 100 UNIT/ML INSULN.PEN SC (08:21)
[2023-07-22] MEDS: Insulin Lispro 100 UNIT/ML INSULN.PEN 7 UNIT SC ×3 (08:21→20:15)
[2023-07-22] MEDS: APIXABAN 5 MG TABLET PO ×2 (08:22→20:04)
[2023-07-22] MEDS: Empagliflozin 25 MG Tablet PO (08:22)
[2023-07-22] MEDS: Losartan Potassium 25 MG Tablet PO (08:22)
[2023-07-22] MEDS: Amiodarone 200 MG Tablet PO (08:22)
[2023-07-22] MEDS: Senna/Docusate Sodium 1 Tablet 2 TABLET PO ×2 (08:23→20:08)
[2023-07-22] MEDS: Furosemide 20 MG Tablet PO (08:23)
[2023-07-22] MEDS: Magnesium Chloride 64 MG Delay Rel.Tablet 128 MG PO (08:23)
[2023-07-22 08:24] VITALS: PULSE 64
[2023-07-22] MEDS: Metoprolol(XL)Succ 50 MG Tablet PO (08:24)
[2023-07-22 08:39] VITALS: BP 133/55; PULSE 64; RESP 18; TEMP 36.6; O2SAT 93
[2023-07-22 09:00] VITALS: BMI 36.1
[2023-07-22 10:31] VITALS: BMI 36.1
[2023-07-22] MEDS: Ferrous Sulfate 325 MG Tablet PO (11:59)
--- NOTE | 2023-07-22 14:11 | DS.PCM_ITS ---
Providers Date of Admission: 07/05/23 Primary Care Physician: Dr. Emile Esposito MD Consultations 07/05/23 17:16 Consult: Infectious Disease Routine Consulting Provider: Jaya Cheung Reason for Consult: Septic knee EMERGENT Consult: No MD Notified: Yes Date Notified: 07/05/23 Time Notified: 17:16 Method of Notification: Verbal Reason For Visit: L SEPTIC KNEE Diagnosis Discharge Diagnosis (1) Debility: Status: Acute Code(s): R53.81 - Other malaise (2) Septic joint of left knee joint: Status: Acute Code(s): M00.9 - Pyogenic arthritis, unspecified (3) JAMAAL (obstructive sleep apnea): Status: Suspected Code(s): G47.33 - Obstructive sleep apnea (adult) (pediatric) (4) CVA (cerebral vascular accident): Status: Acute Code(s): I63.9 - Cerebral infarction, unspecified Qualifiers: CVA mechanism: embolism Precerebral and cerebral artery: unspecified cerebral artery Qualified Code(s): I63.40 - Cerebral infarction due to embolism of unspecified cerebral artery (5) Diabetes mellitus type 2 in obese: Status: Acute Code(s): E11.69 - Type 2 diabetes mellitus with other specified complication; E66.9 - Obesity, unspecified (6) Type II diabetes mellitus: Status: Chronic Code(s): E11.9 - Type 2 diabetes mellitus without complications Qualifiers: Diabetes mellitus complication status: with hyperglycemia 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 insulin 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: with group home use Qualified Code(s): E11.65 - Type 2 diabetes mellitus with hyperglycemia; Z79.4 - ferry terminal 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 of insulin (7) Hypertension: Status: Chronic Code(s): I10 - Essential (primary) hypertension Qualifiers: Hypertension type: primary hypertension Qualified Code(s): I10 - Essential (primary) hypertension (8) HLD (hyperlipidemia): Status: Acute Code(s): E78.5 - Hyperlipidemia, unspecified Qualifiers: Hyperlipidemia type: unspecified Qualified Code(s): E78.5 - Hyperlipidemia, unspecified (9) Atrial fibrillation: Status: Acute Code(s): I48.91 - Unspecified atrial fibrillation Qualifiers: Atrial fibrillation type: permanent Qualified Code(s): I48.21 - Permanent atrial fibrillation (10) CHF (congestive heart failure): Status: Acute Code(s): I50.9 - Heart failure, unspecified Qualifiers: Heart failure type: systolic Heart failure chronicity: chronic Qualified Code(s): I50.22 - Chronic systolic (congestive) heart failure Plan 63 year old female with below past medical history hospitalized for left septic knee, S. Aureus bacteremia, admitted to for 3 hours daily rehabilitation, strengthening, intravenous antibiotics, prior to discharge home with . * Debility - PT/OT/ST. * Pain - Tylenol 1000mg q8, Tramadol 50mg q6h prn, 100mg qhs, Oxycodone 5mg q4h prn, Arthritis compound 2 clicks topical bid. * Bowel - Miralax 17gm daily, senna/colace 2 tablets bid, Dulcolax 10mg pr x 1 prn, MOM 30ml po x 1 prn. * DVT prophylaxis - on Eliquis. * Atrial fibrillation - Metoprolol succinate 50mg qam, 25mg qhs, Amiodarone 200mg daily, Eliquis 5mg bid. * Hyperlipidemia - Atorvastatin 40mg qhs. * Muscle spasm - Baclofen 5mg tid. * Left septic knee/Staph bacteremia - Cefazolin 2gm iv q8 thru 07/21/2023. * Diabetes Mellitus II - Trulicity 0.75mg per week, Jardiance 25mg daily, Hum alog 7 units tidcm, SSI. * Depression - Duloxetine 120mg qhs. * Iron deficiency anemia - Ferrous sulfate 325mg daily. * Heart failure preserved ejection fraction - Metoprolol succinate 50mg qam, 25mg qhs, Losartan 25mg daily, Lasix 40mg daily. * Hypertension - Metoprolol succinate 50mg qam, 25mg qhs, Losartan 25mg daily, Labetalol 100mg q6h prn HTN. * Hypomagnesemia - Magnesium Chloride 128mg daily. * Tinea Corporis - Miconazole topical bid. Medications at Discharge Home Medications duloxetine 60 mg capsule,delayed release 120 mg PO QHS mental health 11/08/21 ferrous sulfate 325 mg (65 mg iron) tablet (FeroSul) 325 mg PO DAILY@1200 Supplement #0 tabs 09/17/22 apixaban 5 mg tablet (Eliquis) 5 mg PO BID Blood thinner #180 tabs 11/04/22 atorvastatin 40 mg tablet 40 mg PO QHS cholesterol #90 tabs 11/04/22 dapagliflozin propanediol 10 mg tablet (Farxiga) 10 mg PO DAILY Diabetes #90 tabs 02/09/23 amiodarone 200 mg tablet 200 mg PO DAILY BP 05/09/23 furosemide 40 mg tablet 40 mg PO DAILY Fluid retention 05/09/23 magnesium 250 mg tablet 500 mg PO DAILY supplement 05/09/23 trazodone 100 mg tablet 100 mg PO DAILY insomnia 05/09/23 dulaglutide 0.75 mg/0.5 mL subcutaneous pen injector (Trulicity) 0.75 mg (0.5 mL) subcut QWEEK Diabetes #2 mL 05/18/23 acetaminophen 500 mg tablet 1,000 mg (2 x 500 mg) PO Q8 Pain #0 tabs 07/05/23 insulin glargine 100 unit/mL (3 mL) subcutaneous pen (Lantus Solostar U-100 Insulin) 10 unit subcut QHS diabetes 07/05/23 insulin lispro 100 unit/mL subcutaneous pen (Humalog KwikPen (U-100) Insulin) 12 unit (0.12 mL) subcut TID diabetes #54 mL 07/05/23 baclofen 10 mg tablet 5 mg (1/2 x 10 mg) PO TID 30 days #45 tabs 07/22/23 gabapentin 100 mg capsule 100 mg PO TIDCM 30 days #90 caps 07/22/23 losartan 25 mg tablet 25 mg PO DAILY BP 30 days #30 tabs 07/22/23 metoprolol succinate 25 mg tablet,extended release 24 hr 25 mg PO QHS 30 days #30 tabs 07/22/23 tramadol 50 mg tablet 50 mg PO Q6H PRN Pain Score 1-10 7 days #28 tabs 07/22/23 Hospital Course Operations None Procedures None Summary of Care Provided Minutes Spent on Discharge: 35 Hospital Course: 63 year old female with below past medical history hospitalized for left septic knee, S. Aureus bacteremia, admitted to for 3 hours daily rehabilitation, [facility], intravenous antibiotics, prior to discharge home with . Discharge to sleep study 07/25/2023, the home with 07/16/2023, [facility] PT/OT, no DME. Physical Exam Const alert General Appearance: cooperative HEENT normocephalic Eyes PERRL and EOMs intact bilaterally Neck supple, no JVD and no carotid bruits Resp normal respiratory effort, normal air movement and clear to auscultation bi laterally Cardio regular rate and regular rhythm GI normal to inspection, nondistended, normoactive bowel sounds, non-tender and non-distended Extremity normal capillary refill General Extremity: Negative for edema Skin no rashes or lesions noted General Skin Exam: no breakdown Psych affect normal Appearance: appropriate Weight / BMI Weight Weight: 92.4 kg Body Mass Index (BMI) 36.1 ABG / Lab / Microbiology Data 07/20/23 07:00 07/20/23 07:00 Indicators for Scoring Admitted with or Primary Diagnosis of CVA/Stroke: No Hx of CVA/Stroke: Yes Modified Esteban Score MRS Score at time of Evaluation: 2-Slight disability D/C Instructions Discharge Diet: No restrictions Discharge Activity: Return to Normal Activity, May Shower and Use Walker Weight Bearing Status: Weight bearing as tolerated Call your doctor if you observe: Fever of 101 or Higher, Inability to urinate, Inability to have a bowel movement, Shortness of breath, Dizziness, Fainting spells, Swelling in the ankles, Chest pain and Uncontrolled pain Additional Instructions: Discharge to sleep study 07/25/2023, the home with 07/16/2023, [facility] PT/OT, no DME. Meaningful Use Info Meaningful Use Diagnoses (Choose all that apply): None applicable Discharge Plan Admission Admit Date/Time: 07/05/23 16:25 Primary Reason for Your Visit: Debility. Attending Provider: Lisbet Herrera Primary Care Provider: Emile Esposito Consulting Providers: Jaya Cheung Instructions Additional Instructions / Restrictions: Discharge to sleep study 07/25/2023, the home with 07/16/2023, [facility] PT/OT, no DME. Discharge Orders/Prescriptions Prescriptions: New tramadol 50 mg Tablet 50 mg PO Q6H PRN (Reason: Pain Score 1-10) 7 Days Qty: 28 0RF baclofen 10 mg Tablet 5 mg PO TID 30 Days Qty: 45 0RF gabapentin 100 mg Capsule 100 mg PO TIDCM 30 Days Qty: 90 0RF metoprolol succinate 25 mg Tablet Extended Release 24 Hr 25 mg PO QHS 30 Days Qty: 30 0RF Continued Eliquis 5 mg tablet 5 mg PO BID Qty: 180 3RF atorvastatin 40 mg tablet 40 mg PO QHS Qty: 90 3RF Farxiga 10 mg tablet 10 mg PO DAILY Qty: 90 3RF amiodarone 200 mg tablet 200 mg PO DAILY magnesium 250 mg tablet 500 mg PO DAILY furosemide 40 mg tablet 40 mg PO DAILY trazodone 100 mg tablet 100 mg PO DAILY duloxetine 60 mg capsule,delayed release(DR/EC) 120 mg PO QHS ferrous sulfate [FeroSul] 325 mg (65 mg iron) Tablet 325 mg PO DAILY@1200 Qty: 0 0RF insulin glargine [Lantus Solostar U-100 Insulin] 100 unit/mL (3 mL) insulin pen 10 unit subcut QHS losartan 25 mg Tablet 25 mg PO DAILY 30 Days Qty: 30 0RF acetaminophen 500 mg Tablet 1,000 mg PO Q8 Qty: 0 0RF insulin lispro [Humalog KwikPen Insulin] 100 unit/mL insulin pen 12 unit subcut TID Qty: 54 1RF Trulicity 0.75 mg/0.5 mL pen injector 0.75 mg subcut QWEEK Qty: 2 2RF Discontinued metoprolol succinate 50 mg tablet extended release 24 hr 50 mg PO DAILY Qty: 90 3RF mecobalamin (vitamin B12) 5,000 mcg tablet,disintegrating 5,000 mcg PO DAILY nystatin [Nyamyc] 100,000 unit/gram Powder 1 applic topical BID PRN (Reason: redness) Protocol: *Topical Application Instructions APPLICATION INSTRUCTIONS: apply to affected areas cefazolin 2 gram recon soln 2 g IV Q8H 24 Days Rx Instructions: dx: MSSA bacteremia stop date 07/21/23 weekly bmp, cbc, and esr; fax to [phone] polyethylene glycol 3350 17 gram Powder In Packet 17 g PO DAILY Qty: 0 0RF Referrals / Follow Up: Sleep, Study [Other] - 07/25/23 8:00 pm Samara Clinton MD [Med Staff - Active Staff] - Jaya Cheung MD [Med Staff - Active Staff] - Anatoliy Moreno MD [Med Staff - Active Staff] - 07/28/23 11:30 am Carlos Pace Chi, MD [Med Staff - Active Staff] - Within 1 Week (New PCP appointment.) Disposition Disposition (needs filled in before D/C Order can be placed): Home, Self Care
[2023-07-22 19:20] VITALS: BP 121/45; PULSE 64; RESP 16; TEMP 36.6; O2SAT 96
[2023-07-22] MEDS: DULoxetine Hcl 60 MG Capsule 120 MG PO (20:02)
[2023-07-22] MEDS: traZODone 100 MG Tablet PO (20:03)
[2023-07-22 20:04] VITALS: PULSE 64
[2023-07-22] MEDS: Atorvastatin Calcium 40 MG Tablet PO (20:04)
[2023-07-22] MEDS: Metoprolol(XL)Succ 25 MG Tablet PO (20:04)
[2023-07-22 22:01] VITALS: BMI 36.1
[2023-07-23] MEDS: Arthritis Pain Compound 60 CLICK TUBE TOPICAL ×2 (06:16→20:48)
[2023-07-23] MEDS: Acetaminophen 500 MG Tablet 1000 MG PO ×3 (06:16→20:46)
[2023-07-23] MEDS: Baclofen 10 MG Tablet 5 MG PO ×3 (06:17→20:50)
[2023-07-23 07:45] VITALS: BP 125/55; PULSE 65; RESP 16; TEMP 36.7; O2SAT 98
[2023-07-23] MEDS: Insulin Lispro 100 UNIT/ML INSULN.PEN 7 UNIT SC ×3 (08:36→17:24)
[2023-07-23] MEDS: Insulin Lispro 100 UNIT/ML INSULN.PEN SC ×3 (08:36→20:57)
[2023-07-23] MEDS: Empagliflozin 25 MG Tablet PO (08:37)
[2023-07-23] MEDS: Senna/Docusate Sodium 1 Tablet 2 TABLET PO ×2 (08:37→20:49)
[2023-07-23] MEDS: Amiodarone 200 MG Tablet PO (08:38)
[2023-07-23] MEDS: Furosemide 20 MG Tablet PO (08:39)
[2023-07-23] MEDS: Magnesium Chloride 64 MG Delay Rel.Tablet 128 MG PO (08:39)
[2023-07-23] MEDS: APIXABAN 5 MG TABLET PO ×2 (08:39→20:50)
[2023-07-23 08:40] VITALS: PULSE 65
[2023-07-23] MEDS: Losartan Potassium 25 MG Tablet PO (08:40)
[2023-07-23] MEDS: Metoprolol(XL)Succ 50 MG Tablet PO (08:40)
[2023-07-23] MEDS: Gabapentin 100 MG Capsule PO ×3 (08:44→17:24)
--- NOTE | 2023-07-23 09:55 | NURSING ---
Patient noted that AM glucose check via jose a was 191, Patient given scheduled 7 units w/ 1 unit (Sliding Scale).
[2023-07-23] MEDS: Ferrous Sulfate 325 MG Tablet PO (12:23)
[2023-07-23 14:41] VITALS: BMI 36.1
--- NOTE | 2023-07-23 17:45 | NURSING ---
Patient lunch bs was 115 via jose a- scheduled 7 units given.
--- NOTE | 2023-07-23 17:45 | NURSING ---
Patient blood sugar reported to be 86 at 1330- patient requested snack/juice. Given both
--- NOTE | 2023-07-23 17:46 | NURSING ---
Blood sugar reported to be 190 at dinner time. 7 units scheduled given and 1 additional unit per sliding scale given.
[2023-07-23 20:47] VITALS: BP 128/40; PULSE 61
[2023-07-23] MEDS: Metoprolol(XL)Succ 25 MG Tablet PO (20:47)
[2023-07-23] MEDS: Atorvastatin Calcium 40 MG Tablet PO (20:50)
[2023-07-23] MEDS: traZODone 100 MG Tablet PO (20:51)
[2023-07-23] MEDS: DULoxetine Hcl 60 MG Capsule 120 MG PO (20:51)
[2023-07-23 22:00] VITALS: BP 124/52; PULSE 60; RESP 16; TEMP 36.6; O2SAT 98
--- NOTE | 2023-07-23 22:00 | NURSING ---
Blood sugar 174 this night. Coverage given and pt eating cerial.
[2023-07-24 05:00] VITALS: BMI 36.1
[2023-07-24] MEDS: Arthritis Pain Compound 60 CLICK TUBE TOPICAL ×2 (06:31→22:13)
[2023-07-24] MEDS: Acetaminophen 500 MG Tablet 1000 MG PO ×3 (06:31→22:11)
[2023-07-24] MEDS: Baclofen 10 MG Tablet 5 MG PO ×3 (06:32→22:13)
[2023-07-24] MEDS: Insulin Lispro 100 UNIT/ML INSULN.PEN 7 UNIT SC ×3 (06:40→17:38)
--- NOTE | 2023-07-24 06:49 | NURSING ---
Blood sugar 195 this am patient asking for 7units am humalog to be given now.
[2023-07-24 07:59] VITALS: BP 135/60; PULSE 62; RESP 18; TEMP 36.2; O2SAT 96
[2023-07-24] MEDS: Senna/Docusate Sodium 1 Tablet 2 TABLET PO ×2 (08:53→22:11)
[2023-07-24] MEDS: Magnesium Chloride 64 MG Delay Rel.Tablet 128 MG PO (08:54)
[2023-07-24] MEDS: Furosemide 20 MG Tablet PO (08:55)
[2023-07-24 08:56] VITALS: PULSE 62
[2023-07-24] MEDS: Gabapentin 100 MG Capsule PO ×3 (08:56→17:38)
[2023-07-24] MEDS: Losartan Potassium 25 MG Tablet PO (08:56)
[2023-07-24] MEDS: Amiodarone 200 MG Tablet PO (08:56)
[2023-07-24] MEDS: Metoprolol(XL)Succ 50 MG Tablet PO ×2 (08:56→22:10)
[2023-07-24] MEDS: APIXABAN 5 MG TABLET PO ×2 (08:57→22:12)
[2023-07-24] MEDS: Empagliflozin 25 MG Tablet PO (08:57)
[2023-07-24 09:46] VITALS: BMI 36.1
[2023-07-24] MEDS: Ferrous Sulfate 325 MG Tablet PO (13:18)
[2023-07-24] MEDS: Insulin Lispro 100 UNIT/ML INSULN.PEN SC (17:38)
[2023-07-24 22:00] VITALS: BP 117/51; PULSE 70; RESP 15; TEMP 36.2; O2SAT 98; BMI 36.1
[2023-07-24] MEDS: DULoxetine Hcl 60 MG Capsule 120 MG PO (22:09)
[2023-07-24 22:10] VITALS: BP 117/51; PULSE 70
[2023-07-24] MEDS: traMADol 50 MG Tablet PO (22:11)
[2023-07-24] MEDS: traZODone 100 MG Tablet PO (22:12)
[2023-07-24] MEDS: Atorvastatin Calcium 40 MG Tablet PO (22:13)
[2023-07-24 22:14] VITALS: BP 117/51; PULSE 70
[2023-07-24] MEDS: Metoprolol(XL)Succ 25 MG Tablet PO (22:14)
[2023-07-25] MEDS: Acetaminophen 500 MG Tablet 1000 MG PO ×3 (06:32→20:00)
[2023-07-25] MEDS: Arthritis Pain Compound 60 CLICK TUBE TOPICAL ×2 (06:33→19:57)
[2023-07-25] MEDS: Baclofen 10 MG Tablet 5 MG PO ×3 (06:33→19:59)
[2023-07-25 07:23] VITALS: BP 114/61; PULSE 61; RESP 16; TEMP 36.4; O2SAT 96
[2023-07-25] MEDS: Empagliflozin 25 MG Tablet PO (08:40)
[2023-07-25] MEDS: Furosemide 20 MG Tablet PO (08:40)
[2023-07-25] MEDS: Losartan Potassium 25 MG Tablet PO (08:40)
[2023-07-25] MEDS: Senna/Docusate Sodium 1 Tablet 2 TABLET PO ×2 (08:41→19:59)
[2023-07-25] MEDS: Amiodarone 200 MG Tablet PO (08:41)
[2023-07-25] MEDS: APIXABAN 5 MG TABLET PO ×2 (08:41→19:58)
[2023-07-25] MEDS: Magnesium Chloride 64 MG Delay Rel.Tablet 128 MG PO (08:41)
[2023-07-25] MEDS: Insulin Lispro 100 UNIT/ML INSULN.PEN 7 UNIT SC ×3 (08:42→16:27)
[2023-07-25] MEDS: Gabapentin 100 MG Capsule PO ×3 (08:51→16:27)
[2023-07-25 11:30] VITALS: BMI 36.1
[2023-07-25] MEDS: Ferrous Sulfate 325 MG Tablet PO (11:36)
--- NOTE | 2023-07-25 11:59 | NURSING ---
Pt blood sugar 167 refused sliding scale insulin this am
[2023-07-25] MEDS: Insulin Lispro 100 UNIT/ML INSULN.PEN SC (16:33)
[2023-07-25 19:39] VITALS: BP 121/55; PULSE 59; RESP 18; TEMP 36.4; O2SAT 100
[2023-07-25 19:41] VITALS: BMI 36.1
[2023-07-25 19:50] VITALS: PULSE 74; RESP 16
[2023-07-25] MEDS: traZODone 100 MG Tablet PO (19:58)
[2023-07-25] MEDS: DULoxetine Hcl 60 MG Capsule 120 MG PO (19:58)
[2023-07-25] MEDS: Atorvastatin Calcium 40 MG Tablet PO (19:58)
[2023-07-25] MEDS: traMADol 50 MG Tablet PO (20:00)
[2023-07-25 20:01] VITALS: PULSE 77
[2023-07-25] MEDS: Metoprolol(XL)Succ 25 MG Tablet PO (20:01)
== END 2023-07-25 20:23 | disposition home or self-care (01) | DRG 344 ==
PROVIDERS: Admitting Provider Internal Medicine; PCP Family Medicine; Visit Provider Internal Medicine
DX: M00.062 Staphylococcal arthritis, left knee (principal); R78.81 Bacteremia; I42.9 Cardiomyopathy, unspecified; I13.0 Hypertensive heart and chronic kidney disease with heart failure and stage 1 through stage 4 chronic kidney disease, or unspecified chronic kidney disease; I48.21 Permanent atrial fibrillation; E11.649 Type 2 diabetes mellitus with hypoglycemia without coma; E11.22 Type 2 diabetes mellitus with diabetic chronic kidney disease; B95.61 Methicillin susceptible Staphylococcus aureus infection as the cause of diseases classified elsewhere; I50.42 Chronic combined systolic (congestive) and diastolic (congestive) heart failure; N18.32 Chronic kidney disease, stage 3b; E66.01 Morbid (severe) obesity due to excess calories; E11.65 Type 2 diabetes mellitus with hyperglycemia; Z79.4 Long term (current) use of insulin; D50.9 Iron deficiency anemia, unspecified; E78.5 Hyperlipidemia, unspecified; M17.12 Unilateral primary osteoarthritis, left knee; G47.33 Obstructive sleep apnea (adult) (pediatric); Z79.01 Long term (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 of anticoagulants; Z79.899 Other long term (current) drug therapy; Z86.73 Personal history of transient ischemic attack (TIA), and cerebral infarction without residual deficits
CPT/HCPCS: 36415; 80048; 80053; 82962; 83735; 84100; 85025; 85027; 85652; 86140; 92507; 96125; 97110; 97112; 97116; 97129; 97130; 97162; 97166; 97530; 97535; 97803; J7050; A4216

== ENCOUNTER → 2023-07-25 | Outpatient (CLI) | payer MEDICAID, SELFPAY | END | disposition home or self-care (01) | LOC: SL 20:33 | PROVIDERS: PCP Family Medicine; Visit Provider Family Medicine Geriatric Medicine | DX: G47.10 Hypersomnia, unspecified (principal) | CPT/HCPCS: 95811 ==

== ENCOUNTER 2023-08-01 02:19 | Emergency (ER) | payer MEDICAID, SELFPAY ==
[2023-08-01 02:20] VITALS: BP 165/83; PULSE 66; RESP 16; TEMP 36.2; O2SAT 96; BMI 36.9
--- NOTE | 2023-08-01 02:33 | CT_ITS ---
EXAM: CT HEAD WITHOUT INTRAVENOUS CONTRAST CLINICAL INDICATION: headache, confusion TECHNIQUE: Multiple axial images were obtained of the head without intravenous contrast. This CT exam was performed using one or more of the following dose reduction techniques: automated exposure control, adjustment of the mA and/or kV according to patient size, and/or use of iterative reconstruction technique. RADIATION DOSE: CTDIvol = 44.99 mGy, DLP = 796.11 mGy-cm COMPARISON: 09/16/2022. FINDINGS: BRAIN AND EXTRA-AXIAL SPACES: Small old right capsuloganglionic infarct. No intra- or extra-axial hemorrhage. No intracranial mass or mass effect. Posterior fossa structures are unremarkable. Ventricles are appropriate for age. No hydrocephalus. Basal cisterns are patent. BONES/JOINTS: Unremarkable. No discrete lytic or blastic abnormalities. SINUSES: Unremarkable as visualized. Clear. MASTOID AIR CELLS: Unremarkable. Clear. ORBITS: Visualized globes, extraocular muscles, optic nerves and retrobulbar fat appear unremarkable. 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 No acute intracranial abnormality. Electronically Signed: Benson Mejia MD at 4:25 EST ,
--- NOTE | 2023-08-01 02:34 | EKG12_ITS ---
Test Reason : DYSRHYTHMIA Blood Pressure : / mmHG Vent. Rate : 062 BPM Atrial Rate : 062 BPM P-R Int : 194 ms QRS Dur : 096 ms QT Int : 438 ms P-R-T Axes : 039 -40 005 degrees QTc Int : 444 ms Normal sinus rhythm Left axis deviation Left ventricular hypertrophy ( R in aVL , [place] product , Romhilt-Bell ) Abnormal ECG Confirmed by SANJU MEEHAN, ARIE ([id number]), proposal editor GABRIEL DURHAM ([id number]) on 08/03/2023 12:42:48 PM Referred By: Confirmed By:ARIE BILLS MD
--- NOTE | 2023-08-01 02:35 | EX.ED.DYSGE1 ---
HPI History of Present Illness Chief Complaint: Anxiety Detail of Chief Complaint: Shaky and confusion Informant: patient and spouse/S.O. Narrative Narrative: Patient presents to the emergency department via EMS from home. Patient states that she woke up from a sleep around 1:30 AM and kept telling her she was okay and Repeating herself. She had a similar episode last evening at the exact same time. She feels shaky currently. Patient has history of prior stroke and is on Eliquis. She does describe a headache. She denies chest pain or abdominal pain. She had no fever or recent illness. She was admitted recently to the hospital for an infection in her left knee which was treated. [facility] Medical History Atrial fibrillation, new onset Atypical chest pain Cardiomyopathy Chest pain CHF (congestive heart failure) Chronic renal failure, stage 3b CVA (cerebral vascular accident) Diabetes mellitus type 2 in obese Effusion, left knee Finger lesion HLD (hyperlipidemia) Hypertension Hypertensive urgency Menopausal and female climacteric states Migraine headache Obesity Osteoarthritis of left knee Stage 3b chronic kidney disease (CKD) Type II diabetes mellitus Home Medications duloxetine 60 mg capsule,delayed release 120 mg PO QHS mental health 11/08/21 [History Last Taken Unknown] ferrous sulfate 325 mg (65 mg iron) tablet (FeroSul) 325 mg PO DAILY@1200 Supplement #0 tabs 09/17/22 [Rx Last Taken Unknown] apixaban 5 mg tablet (Eliquis) 5 mg PO BID Blood thinner #180 tabs 11/04/22 [Rx Last Taken Unknown] atorvastatin 40 mg tablet 40 mg PO QHS cholesterol #90 tabs 11/04/22 [Rx Last Taken Unknown] dapagliflozin propanediol 10 mg tablet (Farxiga) 10 mg PO DAILY Diabetes #90 tabs 02/09/23 [Rx Last Taken Unknown] amiodarone 200 mg tablet 200 mg PO DAILY BP 05/09/23 [History Last Taken Unknown] furosemide 40 mg tablet 40 mg PO DAILY Fluid retention 05/09/23 [History Last Taken Unknown] magnesium 250 mg tablet 500 mg PO DAILY supplement 05/09/23 [History Last Taken Unknown] trazodone 100 mg tablet 100 mg PO DAILY insomnia 05/09/23 [History Last Taken Unknown] dulaglutide 0.75 mg/0.5 mL subcutaneous pen injector (Trulicity) 0.75 mg (0.5 mL) subcut QWEEK Diabetes #2 mL 05/18/23 [Rx Last Taken Unknown] acetaminophen 500 mg tablet 1,000 mg (2 x 500 mg) PO Q8 Pain #0 tabs 07/05/23 [Rx Last Taken Unknown] insulin glargine 100 unit/mL (3 mL) subcutaneous pen (Lantus Solostar U-100 Insulin) 10 unit subcut QHS diabetes 07/05/23 [History Last Taken Unknown] insulin lispro 100 unit/mL subcutaneous pen (Humalog KwikPen (U-100) Insulin) 12 unit (0.12 mL) subcut TID diabetes #54 mL 07/05/23 [Rx Last Taken Unknown] baclofen 10 mg tablet 5 mg (1/2 x 10 mg) PO TID 30 days #45 tabs 07/22/23 [Rx Last Taken Unknown] gabapentin 100 mg capsule 100 mg PO TIDCM 30 days #90 caps 07/22/23 [Rx Last Taken Unknown] losartan 25 mg tablet 25 mg PO DAILY BP 30 days #30 tabs 07/22/23 [Rx Last Taken Unknown] metoprolol succinate 25 mg tablet,extended release 24 hr 25 mg PO QHS 30 days #30 tabs 07/22/23 [Rx Last Taken Unknown] tramadol 50 mg tablet 50 mg PO Q6H PRN Pain Score 1-10 7 days #28 tabs 07/22/23 [Rx Last Taken Unknown] Allergy/AdvReac Type Severity Reaction Status Date / Time ampicillin Allergy Intermediate Hives Verified 08/01/23 02:25 levofloxacin [From Levaquin] Allergy Other Verified 08/01/23 02:25 Penicillins Allergy Hives Verified 08/01/23 02:25 lisinopril AdvReac Unknown Cough Verified 08/01/23 02:25 Family History Mother Diabetes Psoriatic arthritis Rheumatoid arthritis Father COPD (chronic obstructive pulmonary disease) With concurrent tobacco use history. Myocardial infarction Heart disease Surgical History History of foot surgery Social History adopted: No household members: spouse housing: house number of children: 0 current occupational status: employed current occupation: works at [employer] pets and animals: Yes (kittens, dogs, horses) Smoking Status: Never smoker alcohol intake: never substance use type: does not use caffeine: Yes (occasionally) Type: carbonated beverages and coffee ROS ROS ED Review of Systems ROS Unobtainable: other Constitutional Constitutional ED: Reports lethargy; Denies chills, fever(s), sweats or weight loss Eyes Eyes: Denies blurry vision, change in vision or diplopia ENT ENT ED: Denies rhinorrhea or sore throat Cardiovascular Cardiovascular: Denies chest pain, orthopnea or racing heartbeat Respiratory/Chest Respiratory/Chest: Denies cough, dyspnea, dyspnea on exertion, orthopnea or sputum Gastrointestinal Gastrointestinal: Denies abdominal pain, diarrhea, nausea or vomiting Genitourinary Genitourinary ED: Denies dysuria, hematuria or urinary frequency Musculoskeletal Musculoskeletal: Denies arthralgias, back pain, myalgias or neck pain Integumentary Denies abscess, Abrasions or rash Neurologic Neurologic: Reports headache(s) and other Details: Confusion, shaky ; Denies weakness Psychiatric Psychiatric: Denies anxiety, depression or suicidal thoughts Endocrine Endocrinology: Denies polydipsia, polyphagia or polyuria Hematologic/Lymphatic Hematologic/Lymphatic: Denies easy bleeding, easy bruising or lymphadenopathy Allergic/Immunologic Allergic/Immunologic ED: Denies mouth swelling, tongue swelling or urticaria EXAM Physical Exam Const Vital Signs: 08/01/23 02:20 08/01/23 04:46 08/01/23 06:56 Temperature 97.2 F L Temperature Source Temporal Pulse Rate 66 66 62 Respiratory Rate 16 18 16 Blood Pressure 165/83 H 161/72 H 150/72 H Blood Pressure Mean 110 101 98 Pulse Ox 96 94 92 Oxygen Delivery Method Room Air Room Air Positive well nourished and well developed General Appearance ED: well developed and NAD HEENT Reports TM's clear and moist mucous membranes normocephalic and atraumatic; Negative for trauma or tenderness Tympanic Membrane ED: Yes TM's clear Eyes PERRL and EOMs intact bilaterally General Eye ED: Negative for pale conjunctiva or scleral icterus Neck no lymphadenopathy, supple and no JVD General: Negative for tenderness Chest Wall inspection of chest normal and palpation of chest normal Chest: Negative for tenderness Resp normal respiratory effort and clear to auscultation bilaterally Effort and Inspection: Negative for respiratory distress or pain with movement Auscultation: Negative for rhonchi, wheezes or diminished lung sounds Cardio regular rate, regular rhythm, S1 normal heart sound, S2 normal heart sound and no murmurs Peripheral Pulses: pulses 2+ throughout GI normal to inspection, nondistended, normoactive bowel sounds, soft to palpation, non-tender, non-distended and no masses Back/Spine no CVA tenderness and no thoracic nor lumbar tenderness Extremity normal to inspection General Extremety ED: Negative for edema General Extremity: Negative for edema Neuro oriented x3, CN's II-XII intact bilaterally, no sensory deficits noted and gait normal Neuro Narrative: NIH stroke scale is 0. No focal deficits, no slurred speech Sensorium / Orientation: awake, alert, oriented to person, oriented to place and oriented to time Motor Exam: strength 5/5 throughout and strength abnormal Psych mental status grossly normal Skin no rashes or lesions noted and no wounds MDM MDM MDM Narrative Medical decision making narrative: Patient presents to the emergency department with complaint of some confusion and feeling shaky and having a dry mouth and feeling like her tongue swollen. On exam there is no tongue edema however her mouth is quite dry. No focal deficits and no evidence for stroke. IV line established. CBC with differential white count 10.2 with hemoglobin of 11.3 and platelet count of 334. Chemistries unremarkable other than potassium of 5.4 however there was noted moderate hemolysis and therefore I feel this is artificially inflated. BUN was 31 and creatinine 1.59. Troponin normal at 11. EKG obtained arrival showed a sinus rhythm with a rate of 62 bpm with LVH. Urinalysis was unremarkable. CT scan of the brain without contrast was unremarkable. Patient did receive a milligram of Ativan. She intermittently complains of a dry mouth. At this point I feel she can be safely discharged home. She has an appointment with her primary care physician today. Etiology of symptoms to over the last 2 nights unclear but I suspect possibility for some anxiety. Some of her symptoms were related to dry mouth and etiology for this unclear if possibly medication related. Lab Data Attestation: I reviewed the patient's lab results. Labs: Laboratory Results - last 24 hr 08/01/23 08/01/23 02:55 05:45 WBC 10.2 RBC 3.82 L Hgb 11.3 L Hct 37.2 MCV 97.4 MCH 29.6 MCHC 30.4 L RDW Std Deviation 45.0 H RDW Coeff of Patricia 12.7 Plt Count 334 MPV 9.8 Immature Gran % (Auto) 0.500 Neut % (Auto) 67.2 Lymph % (Auto) 19.2 [place] % (Auto) 10.3 H Eos % (Auto) 2.0 Baso % (Auto) 0.8 Absolute Neuts (auto) 6.9 Absolute Lymphs (auto) 1.96 Nucleated RBC % 0 Sodium 137 Potassium 5.4 H Chloride 100 Carbon Dioxide 30.0 Anion Gap 7 BUN 31 H Creatinine 1.59 H Estim Creat Clear Calc 30.35 Est GFR (MDRD) Af Amer 42 L Est GFR (MDRD) Non-Af 35 L BUN/Creatinine Ratio 19.5 Glucose 203 H Calcium 9.0 Troponin I High Sens 11 Urine Color Yellow Urine Clarity Clear Urine pH 7.0 Ur Specific [place] 1.010 Urine Protein 30 H Urine Glucose (UA) 1000 H Urine Ketones Negative Urine Occult Blood 25 H Urine Nitrite Negative Urine Bilirubin Negative Urine Urobilinogen Normal Ur Leukocyte Esterase 100 H Urine RBC 0 SEEN Urine WBC 0-5 SEEN Ur Squamous Epith Cells 0 SEEN Urine Bacteria 0 SEEN Urine Mucus 0 SEEN Radiography Diagnostic Testing: Clinical Impression(s) from Imaging Studies Brain CT 08/01/23 02:33 IMPRESSION: Small old right capsuloganglionic infarct. No acute intracranial abnormality. Electronically Signed: Benson Mejia MD at 4:25 EST , EKG Initial EKG: Comments: Sinus rhythm with a rate of 62 bpm with LVH Discharge Plan Triage Chief Complaint: Anxiety ED Provider: Nicolasa Izquierdo Dx/Rx/DC Orders Clinical Impression: Anxiety, Dry mouth Instructions: ED Anxiety Reaction Prescriptions: No Action Eliquis 5 mg tablet 5 mg PO BID Qty: 180 3RF atorvastatin 40 mg tablet 40 mg PO QHS Qty: 90 3RF Farxiga 10 mg tablet 10 mg PO DAILY Qty: 90 3RF amiodarone 200 mg tablet 200 mg PO DAILY magnesium 250 mg tablet 500 mg PO DAILY furosemide 40 mg tablet 40 mg PO DAILY trazodone 100 mg tablet 100 mg PO DAILY duloxetine 60 mg capsule,delayed release(DR/EC) 120 mg PO QHS ferrous sulfate [FeroSul] 325 mg (65 mg iron) Tablet 325 mg PO DAILY@1200 Qty: 0 0RF insulin glargine [Lantus Solostar U-100 Insulin] 100 unit/mL (3 mL) insulin pen 10 unit subcut QHS tramadol 50 mg Tablet 50 mg PO Q6H PRN (Reason: Pain Score 1-10) 7 Days Qty: 28 0RF baclofen 10 mg Tablet 5 mg PO TID 30 Days Qty: 45 0RF gabapentin 100 mg Capsule 100 mg PO TIDCM 30 Days Qty: 90 0RF metoprolol succinate 25 mg Tablet Extended Release 24 Hr 25 mg PO QHS 30 Days Qty: 30 0RF losartan 25 mg Tablet 25 mg PO DAILY 30 Days Qty: 30 0RF acetaminophen 500 mg Tablet 1,000 mg PO Q8 Qty: 0 0RF insulin lispro [Humalog KwikPen Insulin] 100 unit/mL insulin pen 12 unit subcut TID Qty: 54 1RF Trulicity 0.75 mg/0.5 mL pen injector 0.75 mg subcut QWEEK Qty: 2 2RF Primary Care Provider: Carlos Pace Chi Referrals: Emile Esposito MD [Non-Staff] - Activity Restrictions/Additional Instructions: Keep your appointment with your family doctor today. Reason for your dry mouth unclear. Disposition Disposition: Home, Self Care
[2023-08-01 03:03] LABS: Absolute Lymphocyte Count 1.96 X10^3/uL (0.83-4.51); Absolute Neutrophil Count 6.9 X10^3/uL (2.0-7.7); Basophil# 0.08 X10^3/uL; Basophil% 0.8 % (0-1); Hematocrit 37.2 % (37-47); Hemoglobin 11.3 g/dL (12.0-15.0); Lymphocyte # 1.96 X10^3/ul (0.83-4.51); Lymphocyte % 19.2 % (19-41); Mean Corp Hgb Conc 30.4 g/dL (32-36); Mean Corpuscular Hgb 29.6 pg (27.0-32.0); Mean Corpuscular Volume 97.4 fL (81-99); Mean Platelet Vol. 9.8 fl (6.2-12.0); Monocyte# 1.05 X10^3/uL; Monocyte% 10.3 % (0-10); NRBC Flagged by Analyzer 0 % (0-5); Neutrophil # 6.89 X10^3/uL (2.7-7.7); Neutrophil % 67.2 % (47-70); Platelet Count 334 K/mm3 (150-450); RBC Distribution Width CV 12.7 % (11.6-14.6); Red Blood Count 3.82 M/mm3 (4.2-5.4); White Blood Count 10.2 K/mm3 (4.4-11.0)
[2023-08-01 04:28] LABS: Anion Gap 7 (5-15); BUN 31 mg/dL (7-18); BUN/Creat Ratio 19.5 RATIO (10-20); Chloride 100 mmol/L (98-107); Creatinine, Serum 1.59 mg/dL (0.55-1.02); EST Glomerular Filtration Rate 35 mL/min (>60); Est Glom Filt Rate - Afr Amer 42 mL/min (>60); Estimated Creatinine Clearance 30.35 ml/min; Glucose 203 mg/dL (74-106); Potassium 5.4 mmol/L (3.5-5.1); Sodium Level 137 mmol/L (136-145); Troponin-I HS 11 pg/mL (3.0-54.0)
[2023-08-01] MEDS: LORazepam 2 MG/ML Syringe 1 MG IV (04:42)
[2023-08-01] MEDS: 0.9% Normal Saline (1000mL) 1,000 ML 150 ML IV (04:42)
[2023-08-01 04:46] VITALS: BP 161/72; PULSE 66; RESP 18; O2SAT 94
[2023-08-01 05:52] LABS: Bacteria 0 SEEN /hpf (None Seen); Mucous, Urine 0 SEEN /hpf (<or=2+); Red Blood Cells-Urine 0 SEEN /hpf (0-5); Squamous Epithelial Cells - UA 0 SEEN /hpf (5-10)
[2023-08-01 05:53] LABS: Color, Urine Yellow (Yellow); Glucose, Dipstick 1000 mg/dl (Normal); Ketone-Dipstick Negative (Negative); Leukocyte Esterase-Dipstick 100 /ul (Negative); Nitrite-Dipstick Negative (Negative); Occult Blood-Urine 25 /ul (Negative); Protein-Dipstick 30 mg/dl (Negative); Urine Bilirubin Dipstick Negative (Negative); Urine Clarity Clear (Clear); Urine Urobilinogen Normal (Normal)
[2023-08-01 06:56] VITALS: BP 150/72; PULSE 62; RESP 16; O2SAT 92
[2023-08-01 06:58] LABS: White Blood Cells 0-5 SEEN /hpf (0-5)
[2023-08-01 07:07] VITALS: BP 151/73; PULSE 61; RESP 15; O2SAT 97
[2023-08-01 07:19] VITALS: BP 136/66; PULSE 63; RESP 14; O2SAT 99
== END 2023-08-01 07:20 | disposition home or self-care (01) ==
PROVIDERS: Emergency Provider Emergency Medicine; PCP Family Medicine Geriatric Medicine; Visit Provider Emergency Medicine
DX: F41.9 Anxiety disorder, unspecified (principal); I50.9 Heart failure, unspecified; I42.9 Cardiomyopathy, unspecified; E11.22 Type 2 diabetes mellitus with diabetic chronic kidney disease; N18.32 Chronic kidney disease, stage 3b; R68.2 Dry mouth, unspecified; Z79.01 Long term (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 of anticoagulants; Z86.73 Personal history of transient ischemic attack (TIA), and cerebral infarction without residual deficits
CPT/HCPCS: 70450; 80048; 81001; 84484; 85025; 93005; 96374; 99285; J7030; A4216

== ENCOUNTER → 2023-09-02 | Outpatient (CLI) | payer MEDICAID, SELFPAY | END | disposition home or self-care (01) | LOC: SL 13:04 | PROVIDERS: PCP Family Medicine Geriatric Medicine; Visit Provider Nurse Practitioner Acute Care | DX: Z46.89 Encounter for fitting and adjustment of other specified devices (principal) ==

== ENCOUNTER → 2023-09-13 | Outpatient (CLI) | payer MEDICAID, SELFPAY ==
--- NOTE | 2023-09-13 13:43 | ART_ITS ---
Reason For Study: PVD Procedure A bilateral lower extremity continuous wave Doppler with analog waveform analysis,segmental pressures,and ankle brachial indexes with exercise. Left Segmental Pressures Left brachial= 154mmHg. Left posterior tibial artery = 185mmHg. Left dorsalis pedis artery = 178mmHg. Left digit = 121 mmHg. The left dorsalis pedis waveforms are triphasic. The left posterior tibial artery waveforms are triphasic. Right Segmental Pressures Right brachial= 148mmHg. Right posterior tibial artery = 186mmHg. Right dorsalis pedis artery = 171mmHg. Right digit = 137 mmHg. The right dorsalis pedis waveforms are triphasic. The right posterior tibial artery waveforms are triphasic. Indices The right ankle brachial index by the dorsalis pedis is 1.11. The right ankle brachial index by the posterior tibial artery is 1.21. The right digital-brachial index is .89. The right post exercise ankle brachial index is 1.35. The left ankle brachial index by the posterior tibial artery is 1.2. The left ankle brachial index by the dorsalis pedis is 1.16. The left digital-brachial index is .79. The left post exercise ankle brachial index is 1.17. VL/Lower Ext Art Exam w/ Exercise Interpretation Summary Triphasic Doppler waveforms are noted at ankle level bilaterally. Pulse-volume recordings appear satisfactory at all levels bilaterally. Resting ankle-brachial indices are norm al bilaterally. Digital-brachial indices are normal bilaterally. The patient was ambulated on a treadmill for 2 minutes at 0.6 MPH and a 5% grade (limited by low back pain), following which a nkle pressures augmented bilaterally, a normal physiological response. There is no evidence of significant arterial occlusive disease in the lower ext remities bilaterally. Ordering Physician: Angel Jimenez Performed By: Ceasar Whitaker [id number]
== END | disposition home or self-care (01) ==
LOC: CVS 13:30
PROVIDERS: Referring Provider Podiatrist; Visit Provider Podiatrist
DX: I73.9 Peripheral vascular disease, unspecified (principal)
CPT/HCPCS: 93924

== ENCOUNTER 2023-10-20 12:00 | Outpatient (RCR) | payer MEDICAID, SELFPAY ==
--- NOTE | 2023-08-02 16:05 | HP.PTEVAL_ITS ---
Patient's Visit Information Visit Information Visit Information: MARIA OTT is a 63 year old F referred to Physical Therapy by Dr. Lisbet Herrera DO with a diagnosis of L knee pain. Date of Evaluation: 08/02/23 Physical Therapist: Marc Walters, PT, ATC Visit Plan Frequency: 2-3x /Week Duration: 4-6 Weeks Plan: Focus on L knee stretching and strengthening. Incorporate balance and proprio, core stab ex's, nustep, and HEP Subjective Subjective: Pt reports she received a cortisone injection one month ago. Pt reports she got a staff infection from the injection. Pt reports she was hospitalized for the last month on the rehab unit at the hospital as a result. Pt notes she had therapy for 3 hours per day which was very helpful for her. Pt notes she had a CVA one year ago and notes she didn't have good therapy afterwards and still feels weak as a result of that. Pt reports she continues to have difficulty with stair negotiation and with ambulation at this time secondary to weakness. Pt reports her toes on both feet are numb, but notes no other b Le tingling or numbness. 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 Pt reports her L knee is still sore even after getting her injection. Pt reports her L knee pain is a constant 8/10 Pain L knee: Pain Intensity (Out of 10): 8 Pain Intensity Range: 8 Objective Objective: Neuro: B LE sensation is WNL to light touch. Girth at joint line: L knee 40 cm, R knee 34 cm ROM: R knee 0-130 ;L knee 0-20-70 degrees MMT: R knee flex= 37, ext= 52 #F; L knee flex= 17, ext= 17 #F Gait: Pt is able to ambulate approximately 120 feet until needing to rest secondary to L knee pain Balance/Special Test Scores Lower Extremity Functional Score: 28 Goals Goal 1:: Decrease L knee pain x 50% to aid with sleep Goal Time Frame: 4-6 Weeks Goal 2:: Increase L knee strength x 10#F to aid with stair negotiation Goal Time Frame: 4-6 Weeks Goal 3:: Increase L knee ROM x 30 degrees to aid with restoring a more normalized gait pattern Goal Time Frame: 4-6 Weeks Goal 4:: Pt will be able to ambulate greater than 300 feet to aid with community ambulation Goal Time Frame: 4-6 Weeks Goal 5:: I with HEP Goal Time Frame: 4-6 Weeks Rehabilitation Potential Physical Therapy Diagnosis: Pt has L knee pain, weakness, and limited ROM secondary to L knee sepsis Rehabilitation Potential: Good Anticipated Interventions Patient/Client Instruction: Educate patient on: Condition and Plan of Care For the Purpose of:: To improve self management Therapeutic Exercise to Include: Strength training, Balance training, Flexibilty training, Gait and locomotor training, Active ROM and Dynamic Lumbar Stabilization For the Purpose of:: To decrease pain, To increase ROM and To improve muscle performance and motor function Cryotherapy (ice pack, ice massage): Yes For the Purpose of:: To decrease pain Text: Thank you for the opportunity to evaluate your patient. For Medicare and Medicare HMO plans, please review the plan of care and approve it. It will need to be FAXED BACK to us at [phone] for Medicare purposes. For Medicare only, by signing this I certify the plan of care. Please let me know if there are questions or concerns regarding this plan of care. Physician Signature: Dat e:
--- NOTE | 2023-10-20 13:06 | HP.PTDCSUM ---
Discharge Summary D/C summary: It has been my pleasure to treat MARIA OTT referred by Dr. Lisbet Herrera DO, with the diagnosis of L knee pain for a total of 19 visit(s). Discharge Date: Please see the following information for a summary of their discharge status. Subjective Subjective: I could use more PT, but I also think I can do it on my own Pain L knee: Pain Intensity (Out of 10): 1 R hip: Pain Intensity (Out of 10): 1 Overall Improvement % Improvement: 95 Objective Objective/Function: L knee pain ranges from 1-5/10 Pt is I with HEP L knee MMT: flex= 27, ext= 44 #F L knee ROM: 0-3-115 degrees Pt is able to ambulate greater than 340 feet I without difficulty Rx goals achieved Goals Goal 1:: Decrease L knee pain x 50% to aid with sleep Goal Progress: Goal Met Goal 2:: Increase L knee strength x 10#F to aid with stair negotiation Goal Progress: Goal Met Goal 3:: Increase L knee ROM x 30 degrees to aid with restoring a more normalized gait pattern Goal Progress: Goal Met Goal 4:: Pt will be able to ambulate greater than 300 feet to aid with community ambulation Goal Progress: Goal Met Goal 5:: I with HEP Goal Progress: Goal Met Plan Plan: Discharge to [facility] D/C Information d/c sentence: If there are questions or concerns regarding this patient's physical therapy, please feel free to call me at [phone]. Thank you for the referral of this patient. Sincerely, Marc Walters, PT, ATC Balance/Gait/Functional tests Balance/Special Test Scores Lower Extremity Functional Score: 76 Improvement % Improvement: 95
== END 2023-10-20 19:00 | disposition home or self-care (01) ==
LOC: PT 12:00
PROVIDERS: PCP Family Medicine Geriatric Medicine; Referring Provider Internal Medicine; Visit Provider Internal Medicine
DX: M00.9 Pyogenic arthritis, unspecified (principal); M17.12 Unilateral primary osteoarthritis, left knee; R53.81 Other malaise
CPT/HCPCS: 97110; 97161; 97164

== ENCOUNTER → 2023-10-21 | Outpatient (CLI) | payer MEDICAID, SELFPAY ==
[2023-10-21 17:15] LABS: Absolute Lymphocyte Count 1.93 X10^3/uL (0.83-4.51); Absolute Neutrophil Count 4.9 X10^3/uL (2.0-7.7); Basophil# 0.05 X10^3/uL; Basophil% 0.6 % (0-1); Eosinophil# 0.34 X10^3/uL; Eosinophils% 4.2 % (0-5); Hematocrit 42.4 % (37-47); Hemoglobin 13.1 g/dL (12.0-15.0); Lymphocyte # 1.93 X10^3/ul (0.83-4.51); Lymphocyte % 23.7 % (19-41); Mean Corp Hgb Conc 30.9 g/dL (32-36); Mean Corpuscular Hgb 30.1 pg (27.0-32.0); Mean Corpuscular Volume 97.5 fL (81-99); Mean Platelet Vol. 10.3 fl (6.2-12.0); Monocyte% 11.1 % (0-10); NRBC Flagged by Analyzer 0 % (0-5); Neutrophil % 60.2 % (47-70); Platelet Count 236 K/mm3 (150-450); RBC Distribution Width CV 12.9 % (11.6-14.6); RBC Distribution Width SD 45.9 fl (35.1-43.9); Red Blood Count 4.35 M/mm3 (4.2-5.4); White Blood Count 8.1 K/mm3 (4.4-11.0)
[2023-10-21 17:40] LABS: Hemoglobin A1c 7.6 % (3.8-5.6)
[2023-10-21 17:47] LABS: ALB/GLOB Ratio 0.9 RATIO (0.9-2.4); AST(SGOT) 21 U/L (15-37); Alanine Aminotransfer ALT/SGPT 28 U/L (13-56); Albumin, Serum 3.5 g/dL (3.2-5.0); Alkaline Phosphatase 135 U/L (45-117); Anion Gap 6 (5-15); BUN 28 mg/dL (7-18); Chloride 101 mmol/L (98-107); Cholesterol 157 mg/dL (200); Creatinine, Serum 1.47 mg/dL (0.55-1.02); EST Glomerular Filtration Rate 38 mL/min (>60); Est Glom Filt Rate - Afr Amer 46 mL/min (>60); Globulin 3.9 g/dL (2.2-4.2); Glucose 162 mg/dL (74-106); High Density Lipoprotein 62 mg/dL; Potassium 4.5 mmol/L (3.5-5.1); Protein, Total 7.4 g/dL (6.4-8.2); Sodium Level 136 mmol/L (136-145); T4 Free Direct 0.96 ng/dL (0.76-1.46); Thyroid Stim Hormone (TSH) 1.67 uIU/mL (0.358-3.74); Triglycerides 190 mg/dL; Very Low Density Lipoprotein 38 mg/dL (5-40)
== END | disposition home or self-care (01) ==
LOC: BIMLAB 14:43
PROVIDERS: PCP Internal Medicine; Visit Provider Internal Medicine
DX: G47.33 Obstructive sleep apnea (adult) (pediatric) (principal); E11.9 Type 2 diabetes mellitus without complications; I10 Essential (primary) hypertension
CPT/HCPCS: 36415; 80053; 80061; 83036; 84439; 84443; 85025

== ENCOUNTER → 2024-02-23 | Outpatient (CLI) | payer MEDICAID, SELFPAY ==
[2024-02-23 15:20] LABS: Anion Gap 7 (5-15); BUN 29 mg/dL (7-18); Calcium,Total 9.8 mg/dL (8.5-10.1); Chloride 99 mmol/L (98-107); Creatinine, Serum 1.93 mg/dL (0.55-1.02); EST Glomerular Filtration Rate 28 mL/min (>60); Est Glom Filt Rate - Afr Amer 34 mL/min (>60); Glucose 194 mg/dL (74-106); Potassium 5.1 mmol/L (3.5-5.1); Sodium Level 138 mmol/L (136-145)
== END | disposition home or self-care (01) ==
LOC: BIMLAB 13:54
PROVIDERS: PCP Internal Medicine; Visit Provider Internal Medicine
DX: I12.9 Hypertensive chronic kidney disease with stage 1 through stage 4 chronic kidney disease, or unspecified chronic kidney disease (principal); N18.32 Chronic kidney disease, stage 3b
CPT/HCPCS: 36415; 80048

== ENCOUNTER → 2024-08-03 | Outpatient (CLI) | payer MEDICAID, SELFPAY ==
[2024-08-03 12:34] LABS: AST(SGOT) 16 U/L (15-37); Alanine Aminotransfer ALT/SGPT 22 U/L (13-56); Albumin, Serum 3.5 g/dL (3.2-5.0); Alkaline Phosphatase 114 U/L (45-117); Anion Gap 3 (5-15); BUN 28 mg/dL (7-18); Calcium,Total 8.8 mg/dL (8.5-10.1); Chloride 103 mmol/L (98-107); Creatinine, Serum 1.65 mg/dL (0.55-1.02); EST Glomerular Filtration Rate 33 mL/min (>60); Est Glom Filt Rate - Afr Amer 40 mL/min (>60); Globulin 3.5 g/dL (2.2-4.2); Glucose 245 mg/dL (74-106); Potassium 4.8 mmol/L (3.5-5.1); Sodium Level 137 mmol/L (136-145)
== END | disposition home or self-care (01) ==
LOC: BIMLAB 09:44
PROVIDERS: PCP Internal Medicine; Referring Provider Nurse Practitioner Family; Visit Provider Nurse Practitioner Family
DX: E11.69 Type 2 diabetes mellitus with other specified complication (principal); E66.9 Obesity, unspecified
CPT/HCPCS: 36415; 80053

== ENCOUNTER → 2024-10-24 | Outpatient (CLI) | payer MEDICAID, SELFPAY ==
[2024-10-24 12:39] LABS: Absolute Neutrophil Count 5.2 X10^3/uL (2.0-7.7); Basophil# 0.05 X10^3/uL; Basophil% 0.6 % (0-1); Eosinophil# 0.14 X10^3/uL; Eosinophils% 1.8 % (0-5); Hematocrit 42.2 % (37-47); Hemoglobin 13.1 g/dL (12.0-15.0); Lymphocyte % 22.8 % (19-41); Mean Corpuscular Hgb 29.8 pg (27.0-32.0); Mean Corpuscular Volume 96.1 fL (81-99); Mean Platelet Vol. 10.1 fl (6.2-12.0); Monocyte# 0.68 X10^3/uL; Monocyte% 8.6 % (0-10); NRBC Flagged by Analyzer 0 % (0-5); Neutrophil # 5.17 X10^3/uL (2.7-7.7); Neutrophil % 65.7 % (47-70); Platelet Count 249 K/mm3 (150-450); RBC Distribution Width CV 12.5 % (11.6-14.6); RBC Distribution Width SD 44.2 fl (35.1-43.9); Red Blood Count 4.39 M/mm3 (4.2-5.4); White Blood Count 7.9 K/mm3 (4.4-11.0)
[2024-10-24 13:34] LABS: ALB/GLOB Ratio 0.9 RATIO (0.9-2.4); AST(SGOT) 22 U/L (15-37); Alanine Aminotransfer ALT/SGPT 29 U/L (13-56); Albumin, Serum 3.5 g/dL (3.2-5.0); Alkaline Phosphatase 111 U/L (45-117); Anion Gap 7 (5-15); BUN 28 mg/dL (7-18); BUN/Creat Ratio 17.4 RATIO (10-20); Calcium,Total 9.2 mg/dL (8.5-10.1); Chloride 102 mmol/L (98-107); Cholesterol 153 mg/dL (200); Creatinine, Serum 1.61 mg/dL (0.55-1.02); EST Glomerular Filtration Rate 34 mL/min (>60); Est Glom Filt Rate - Afr Amer 42 mL/min (>60); Globulin 4.1 g/dL (2.2-4.2); Glucose 202 mg/dL (74-106); High Density Lipoprotein 72 mg/dL; Potassium 4.6 mmol/L (3.5-5.1); Protein, Total 7.6 g/dL (6.4-8.2); Sodium Level 136 mmol/L (136-145); Triglycerides 102 mg/dL; Very Low Density Lipoprotein 20 mg/dL (5-40)
[2024-10-24 14:29] LABS: Microalbumin:Creatinine Ratio 1040.3 mg/g CRE (<30 mg/g CRE)
== END | disposition home or self-care (01) ==
PROVIDERS: PCP Internal Medicine; Referring Provider Internal Medicine; Visit Provider Internal Medicine
DX: E11.65 Type 2 diabetes mellitus with hyperglycemia (principal); Z79.4 Long term (current) use of insulin; I10 Essential (primary) hypertension
CPT/HCPCS: 36415; 80053; 80061; 82043; 82570; 85025

== ENCOUNTER 2025-03-02 13:46 | Emergency (ER) | payer MEDICARE, SELFPAY ==
[2025-03-02] VITALS (8 sets, daily range): BP systolic 143–179; BP diastolic 50–99; PULSE 56–92; RESP 16–18; TEMP 36.9–37.1; O2SAT 95–100; BMI 39.7
--- NOTE | 2025-03-02 13:56 | CT_ITS ---
PROCEDURE: STROKE BRAIN/HEAD WITHOUT CONT 03/02/2025 REASON FOR EXAM: NEURO DEFICIT, ACUTE, STROKE SUSPECTED TECHNIQUE: STROKE BRAIN/HEAD WITHOUT CONT Coronal and Sagittal reconstruction series were provided. One or more dose reduction techniques were used (e.g., Automated exposure control, adjustment of the mA and/or kV according to patient size, use of iterative reconstruction technique. RADIATION DOSE SUMMARY: DLP: 796 mGycm COMPARISON: 08/01/23 FINDINGS: There is no acute infarct, intracranial hemorrhage, or mass effect. There is no hydrocephalus or significant midline shift. Redemonstrated chronic right capsuloganglionic infarct. No acute, depressed calvarial fractures. No large scalp hematomas. CT/STROKE Brain/Head without Cont IMPRESSION: No acute large territorial infarction. Dr. Seymour was notified by Onel Roth at 2:29pm EST on 03/02/25 Reading Location: [id number]
--- NOTE | 2025-03-02 13:56 | EKG12_ITS ---
Test Reason : poss stroke Blood Pressure : */* mmHG Vent. Rate : 55 BPM Atrial Rate : 55 BPM P-R Int : 216 ms QRS Dur : 104 ms QT Int : 454 ms P-R-T Axes : 62 -38 19 degrees QTcB Int : 434 ms Sinus bradycardia with 1st degree A-V block Left axis deviation Left ventricular hypertrophy ( R in aVL , Galvin product , Romhilt-Bell ) Abnormal ECG Confirmed by Benson Keys ([id number]), editor at large GABRIEL DURHAM ([id number]) on 03/05/2025 11:45:55 AM Referred By: Confirmed By: Benson Keys
--- NOTE | 2025-03-02 13:57 | CT_ITS ---
PROCEDURE: STROKE CTA HEAD AND NECK W/CON 03/02/2025 REASON FOR EXAM: NEURO DEFICIT, ACUTE, STROKE SUSPECTED TECHNIQUE: STROKE CTA HEAD AND NECK W/CON Multiplanar Sagittal and Coronal images were obtained. CONTRAST: 100 mL of Isovue 370 One or more dose reduction techniques were used (e.g., Automated exposure control, adjustment of the mA and/or kV according to patient size, use of iterative reconstruction technique). RADIATION DOSE SUMMARY: DLP: 823 mGycm COMPARISON: None FINDINGS: The aortic arch demonstrates a type I configuration. The ostia of the great vessels are patent. There is conventional branching. The right CCA is tortuous but patent. There is no significant stenosis of the right carotid bifurcation by NASCET criteria. The cervical right ICA is tortuous but patent. The right MCA and right EMERY appear patent. There is no large vessel occlusion. The left CCA is tortuous but patent. There is no significant stenoses at the left carotid bifurcation by NASCET criteria. The cervical left ICA is tortuous but patent. The left MCA and left EMERY appear patent. There is no large vessel occlusion. The right vertebral artery arises from the right subclavian artery. The left vertebral artery arises from the left subclavian artery. Both vertebral arteries are tortuous but patent. Both vertebral arteries join to form the patent basilar artery. Both posterior cerebral arteries arise from the tip of the basilar. Both proximal SIGN LETTERER segments are patent. There is no large vessel occlusion. There is no enhancing intracranial mass. Shotty cervical lymph nodes are identified. 1.7 x 1.4 cm hypodense lesion within the right thyroid. 0.5 x 0.3 cm lesion within the left thyroid gland. Bilateral thyromegaly. The lung apices demonstrate no pneumothorax. Pneumatocele within the right apex. Moderate multilevel degenerative changes of the cervical spine. No acute fractures or dislocations. CT/STROKE CTA Head AND Neck W/Con IMPRESSION: No acute large vessel occlusion or high-grade stenosis. Dr. Seymour was notified by Onel Roth at 2:29pm EST on 03/02/25 1.7 x 1.4 cm hypodense lesion within the right thyroid. 0.5 x 0.3 cm lesion wi thin the left thyroid gland. Bilateral thyromegaly. Consider dedicated follow-up thyroid ultrasound under nonemergent outpatient basis. Reading Location: [id number]
--- NOTE | 2025-03-02 13:57 | EDS_ITS ---
HPI History of Present Illness Chief Complaint: Neuro S/Sx Informant: patient and spouse/S.O. Narrative Narrative: Presented neurosymptoms by EMS. History of CVA 2 years ago with similar presentation. States went to bed at 10:30 PM was normal waking at 6 AM felt fatigue. She did her morning activities for her spouse feeding the horses. She went to take a nap she waking 11 AM less than 3 hours ago her then noted left lip droop. There was none noted earlier this morning. No headache. No cough. No vomiting or diarrhea. She diabetic blood glucose was 230s by EMS. Similar presentation and 2 years ago with her fatigue leading to a stroke with f indings of A-fib for which she is currently on Eliquis took it this morning. She had incidental COVID at that time and findings of cardiomyopathy also. No chest pains. Prior similar symptoms: Yes [facility] Medical History Insomnia Right forearm pain Right wrist pain Health care maintenance Cellulitis of groin, left Intertriginous dermatitis associated with moisture Anxiety and depression Tremor Chronic renal failure, stage 3b Diabetes mellitus type 2 in obese Stage 3b chronic kidney disease (CKD) Effusion, left knee Osteoarthritis of left knee CVA (cerebral vascular accident) Finger lesion Chest pain CHF (congestive heart failure) Cardiomyopathy Obesity HLD (hyperlipidemia) Atrial fibrillation, new onset Menopausal and female climacteric states Migraine headache Atypical chest pain Hypertensive urgency Hypertension Type II diabetes mellitus Home Medications ?Medication ?Instructions ?Recorded ?Last Taken ?Type magnesium 250 mg tablet 250 mg PO BID supplement Unknown History Handicap Placard #1 ea 10/21/23 Unknown Rx Oral Appliance #1 ea 11/21/23 Unknown Rx atorvastatin 40 mg tablet 40 mg PO QHS cholesterol #90 tabs 12/09/23 Unknown Rx pen needle, diabetic 32 gauge x #100 ea 06/04/24 Unkno wn Rx (BD Ultra-Fine Tanja Pen Needle) acetaminophen 500 mg tablet 1,000 mg PO Q8 PRN Pain Unknown History metoprolol succinate 50 mg 50 mg PO DAILY #90 TABLETS 06/11/24 Unknown Rx tablet,extended release 24 hr duloxetine 60 mg capsule,delayed 60 mg PO QHS mental h ealt #90 caps 09/10/24 Unknown Rx release losartan 50 mg tablet 50 mg PO QDAY #90 tabs 10/24 Unknown Rx apixaban 5 mg tablet (Eliquis) 5 mg PO .COMPLEX Blood thinner 11/27/24 Unknown Rx #180 tabs flash glucose sensor (FreeStyle #6 ea 11/29/24 Unknown Rx Paulette 2 Sensor kit) cholecalciferol (vitamin D3) 50 50 mcg PO DAILY #90 ca ps 12/07/24 Unknown Rx mcg (2,000 unit) capsule amiodarone 200 mg tablet 200 mg PO DAILY #40 tabs 02/03 Unknown Rx insulin glargine 100 unit/mL (3 20 unit (0.2 mL) subcu t QAM #6 mL 01/31/25 Unknown Rx mL) subcutaneous pen (Basaglar KwikPen U-100 Insulin) insulin lispro 100 unit/mL 12 unit (0.12 mL) subcut TI D 01/31/25 Unknown Rx subcutaneous pen (Humalog KwikPen diabetes #15 mL (U-100) Insulin) trazodone 50 mg tablet 50 mg PO QHS PRN insomnia #6 0 tabs 01/31/25 Unknown Rx ferrous sulfate 325 mg (65 mg 325 mg PO DAILY@1200 Sup plement 02/18/25 Unknown Rx iron) tablet (FeroSul) #90 tabs tirzepatide 2.5 mg/0.5 mL 2.5 mg subcut DAILY 03/02/25 Unknown History subcutaneous pen injector (Mounjaro) Allergy/AdvReac Type Severity Reaction Status Date / Time ampicillin Allergy Intermediate Hives Verified 03/02/25 13:47 levofloxacin (From Levaquin) Allergy Other Verified 03/02/25 13:47 Penicillins Allergy Hives Verified 03/02/25 13:47 lisinopril AdvReac Unknown Cough Verified 03/02/25 13:47 Family History Mother Diabetes Psoriatic arthritis Rheumatoid arthritis Father COPD (chronic obstructive pulmonary disease) With concurrent tobacco use history. Myocardial infarction Heart disease Hypertension Surgical History History of knee surgery History of foot surgery Social History adopted: No household members: spouse housing: house number of children: 0 current occupational status: employed current occupation: works at [employer] pets and animals: Yes (kittens, dogs, horses) Smoking Status: Never smoker alcohol intake: never substance use type: does not use caffeine: Yes (occasionally) Type: carbonated beverages and coffee ROS ROS ED Constitutional Constitutional ED: Reports other Details: Fatigue ; Denies chills, fever(s) or sweats ENT ENT ED: Denies sore throat Cardiovascular Cardiovascular: Denies chest pain, leg edema, palpitations or racing heartbeat Respiratory/Chest Respiratory/Chest: Denies cough, dyspnea or dyspnea on exertion Gastrointestinal Gastrointestinal: Denies abdominal pain, diarrhea, nausea or vomiting Genitourinary Genitourinary ED: Denies dysuria, hematuria or urinary frequency Musculoskeletal Musculoskeletal: Denies back pain, extremity pain or neck pain Integumentary Denies rash or wounds Neurologic Neurologic: Reports other Details: Dysarthria, left facial droop ; Denies headache(s), paresthesias or weakness EXAM Physical Exam Const Vital Signs: 03/02/25 13:52 03/02/25 13:55 03/02/25 13:56 Temperature 98.7 F Temperature Source Oral Pulse Rate 58 L 92 61 Respiratory Rate 18 18 16 Blood Pressure 161/76 H 161/76 H 160/69 H Blood Pressure Mean 104 104 99 Pulse Ox 95 96 98 Oxygen Delivery Method Room Air Room Air Room Air 03/02/25 14:01 03/02/25 14:26 03/02/25 14:30 Temperature Temperature Source Pulse Rate 59 L 59 L Respiratory Rate 18 17 Blood Pressure 155/64 H 143/50 H Blood Pressure Mean 94 81 Pulse Ox 96 100 Oxygen Delivery Method Room Air Room Air Room Air 03/02/25 15:00 03/02/25 15:17 03/02/25 15:30 Temperature 98.5 F 98.5 F Temperature Source Oral Pulse Rate 56 L 64 59 L Respiratory Rate 17 18 18 Blood Pressure 179/75 H 144/99 H 175/78 H Blood Pressure Mean 109 114 110 Pulse Ox 95 100 99 Oxygen Delivery Method Room Air Room Air Positive well nourished and well developed General Appearance ED: well developed and NAD HEENT Reports moist mucous membranes normocephalic and atraumatic Nose: other Eyes General Eye ED: Yes normal appearance of both eyes Neck full ROM Chest Wall Chest: Negative for tenderness Resp normal respiratory effort and normal air movement Effort and Inspection: symmetric chest movement; Negative for respiratory distress Cardio regular rate, regular rhythm and no murmurs Peripheral Pulses: pulses 2+ throughout GI normal to inspection, nondistended, normoactive bowel sounds and non-tender Palpation: Negative for guarding or rebound tenderness present Extremity normal to inspection General Extremety ED: Negative for edema or tenderness General Extremity: Negative for edema Neuro oriented x3 and no sensory deficits noted Neuro Narrative: NIH of 2 for slight left lip droop and slight dysarthria. Sensorium / Orientation: awake and alert Skin no rashes or lesions noted and no wounds MDM MDM MDM Narrative Medical decision making narrative: Interventions / MDM: Differential diagnosis: CVA, left lip droop, dysarthria Diagnosis considered but do not suspect: Intracranial hemorrhage however CT negative. My EKG interpretation: Sinus rate of 55, no ST changes. T wave version leads III nonspecific. Imaging independently reviewed and interpreted by myself: CT brain: No acute process. CT angiogram head and neck: No LVO in discussion with radiology. External documents reviewed: N/A Test considered but not ordered:N/A ED course: Patient NIH of 2 for slight left lip droop slight dysarthria per patient.she is on Eliquis therefore not a TNK candidate. She went to bed normal at 1030 she awakened at 6 AM with just fatigue her did not note any droop of lip when they are doing activities. She awakened at 11 AM with symptoms. Symptoms within 24 hours therefore stroke protocol initiated with CT angiogram of head and neck. 1437: I spoke with stroke neurologist Dr. Carr, with her being on Eliquis not a TNK candidate. He is unable to review the images at this time however reports if radiology concerns for any bleeds or LVO to call him back. 1438: Discussed with radiologist Dr. Mcclain, negative intra hemorrhage no LVO. 1445: Patient updated on image findings. NIH still 2. Labs stable creatinine 1.54 similar to previous. Will discuss with hospitalist service for admission. I spoke with Dr. Cole for plan admission to PCU. 1540: Patient evaluated by hospitalist Dr. Cole, came out discussed with me, patient on optimal medications at this time along with Eliquis along with statin medication. He still offered admission for MRI however treatment would be the same there for patient spouse would prefer to go home and follow-up with her PCP. We discussed strict return precautions. All questions were answered. Re-evaluation: stable Disposition discussed with patient/family/significant other: Patient and family Case discussed with consulting clinician: Radiology, telemetry neurology, hospitalist This note was generated with [employer] dictation software. It may contain incorrect words, spelling, and punctuation that were not noted in checking the note before signing. Lab Data Attestation: I reviewed the patient's lab results. Labs: Laboratory Results - last 24 hr 03/02/25 14:07 WBC 8.4 RBC 4.38 Hgb 13.9 Hct 42.0 MCV 95.9 MCH 31.7 MCHC 33.1 RDW Std Deviation 44.8 H RDW Coeff of Patricia 12.7 Plt Count 248 MPV 9.8 Immature Gran % (Auto) 0.400 Neut % (Auto) 66.2 Lymph % (Auto) 21.4 [place] % (Auto) 10.0 Eos % (Auto) 1.5 Baso % (Auto) 0.5 Absolute Neuts (auto) 5.6 Absolute Lymphs (auto) 1.80 Nucleated RBC % 0 PT 13.8 INR 1.0 APTT 33.0 Sodium 139 Potassium 4.5 Chloride 101 Carbon Dioxide 26.9 Anion Gap 11 BUN 26 H Creatinine 1.54 H Estim Creat Clear Calc 42.59 L Est GFR (MDRD) Non-Af 38 L BUN/Creatinine Ratio 16.9 Glucose 149 H Hemoglobin A1c 6.9 H Calcium 9.1 Troponin T High Sens 12 TSH 0.992 Radiography Diagnostic Testing: Clinical Impression(s) from Imaging Studies Brain CT 03/02/25 13:56 IMPRESSION: No acute large territorial infarction. Dr. Seymour was notified by Onel Roth at 2:29pm EST on 03/02/25 Reading Location: [facility] Head/Neck CTA 03/02/25 13:57 IMPRESSION: No acute large vessel occlusion or high-grade stenosis. Dr. Seymour was notified by Onel Roth at 2:29pm EST on 03/02/25 1.7 x 1.4 cm hypodense lesion within the right thyroid. 0.5 x 0.3 cm lesion within the left thyroid gland. Bilateral thyromegaly. Consider dedicated follow-up thyroid ultrasound under nonemergent outpatient basis. Reading Location: [facility] Discharge Plan Triage Chief Complaint: Neuro S/Sx ED Provider: Idris Seymour Dx/Rx/DC Orders Clinical Impression: Chronic anticoagulation, Facial droop, Dysarthria, Brain TIA Instructions: ED TIA: Transient Ischemic Attack Prescriptions: No Action magnesium 250 mg tablet 250 mg PO BID (DME) Oral Appliance See Rx Instructions .ROUTE .MEDSUPPLY Qty: 1 0RF Rx Instructions: As directed (DME) Handicap Placard See Rx Instructions .ROUTE .MEDSUPPLY Qty: 1 0RF Rx Instructions: As directed, length of time 3 years acetaminophen 500 mg tablet 1,000 mg PO Q8 PRN (Reason: Pain) trazodone 50 mg tablet 50 mg PO QHS PRN (Reason: insomnia) Qty: 60 4RF Mounjaro 2.5 mg/0.5 mL pen injector 2.5 mg subcut DAILY Rx Instructions: for 4 weeks atorvastatin 40 mg tablet 40 mg PO QHS Qty: 90 3RF (DME) pen needle, diabetic [BD Ultra-Fine Tanja Pen Needle] 32 gauge x 5/32 needle See Rx Instructions .Route Qty: 100 5RF Rx Instructions: 4x/day metoprolol succinate 50 mg tablet extended release 24 hr 50 mg PO DAILY Qty: 90 3RF duloxetine 60 mg capsule,delayed release(DR/EC) 60 mg PO QHS Qty: 90 1RF losartan 50 mg tablet 50 mg PO QDAY Qty: 90 1RF Eliquis 5 mg tablet 5 mg PO .COMPLEX Qty: 180 3RF Rx Instructions: 5 mg orally twice daily: Fax to [facility] @ ; (DME) FreeStyle Paulette 2 Sensor Kit See Rx Instructions .Route Qty: 6 1RF Rx Instructions: 1 sensor q 14 days cholecalciferol (vitamin D3) 50 mcg (2,000 unit) capsule 50 mcg PO DAILY Qty: 90 1RF amiodarone 200 mg tablet 200 mg PO DAILY Qty: 40 0RF insulin glargine [Basaglar KwikPen U-100 Insulin] 100 unit/mL (3 mL) insulin pen 20 unit subcut QAM Qty: 6 0RF insulin lispro [Humalog KwikPen Insulin] 100 unit/mL insulin pen 12 unit subcut TID Qty: 15 1RF ferrous sulfate [FeroSul] 325 mg (65 mg iron) tablet 325 mg PO DAILY@1200 Qty: 90 1RF Primary Care Provider: Tiara Jaimes Referrals: Tiara Jaimes MD [Primary Care Provider] - 3-5 Days Activity Restrictions/Additional Instructions: Your CT head CT angiogram head and neck were negative. He is in sinus rhythm on EKG. You are currently on a statin and on Eliquis. You had strokelike symptoms stable at this time. You were evaluated by hospitalist service in the ED, you prefer to follow-up with your PCP for further workup. If you develop any worsening symptoms, return to the ED for reevaluation. Print Language: Uzbek Disposition Disposition: Home, Self Care Discharge Date/Time: 03/02/25 15:55 NIHSS NIHSS 1a. Level of Consciousness: 0 - Alert; keenly responsive 1b. LOC Questions: 0 - Answers BOTH questions correctly 1c. LOC Commands: 0 - Performs BOTH tasks correctly 2. Best Gaze: 0 - Normal 3. Visual: 0 - No visual loss 4. Facial Palsy: 1 - Minor paralysis (flattened nasolabial fold, asymmetry on smiling) 5a. Left Arm: 0 - No drift; arm holds 90 (or 45) degrees for full 10 seconds 5b. Right Arm: 0 - No drift; arm holds 90 (or 45) degrees for full 10 seconds 6a. Left Le - No drift; leg holds 30-degree position for full 5 seconds 6b. Right Le - No drift; leg holds 30-degree position for full 5 seconds 7. Limb Ataxia: 0 - Absent 8. Sensory: 0 - Normal; no sensory loss 9. Best Language: 0 - No aphasia; normal 10. Dysarthria: 1 = [id number] dysarthria; 11. Extinction and Inattention: 0 - No abnormality Total: 2 Stroke Questions Stroke Team Activated: Yes Reviewed Inclusion/Exclusion criteria: Yes
--- NOTE | 2025-03-02 14:00 | CM.ED ---
Social Work Date of referral: 03/02/25 Reason for referral: Stroke Alert Sales Apprentice responded to a stroke alert. Patient in the process of being taken out of her room for medical treatment. Patient's immediately declined Social Work visit upon entry, stating he and his do not need a manager social responsibility. Melani Wilkins, TITLE EXAMINER, DAYCARE DIRECTOR
--- OUTSIDE RECORDS SUMMARY | 2025-03-02 14:06 | XMS RPT_ITS | CCD ---
Author Organization [facility] Care Team Providers Care Correctional Therapy Teacher Name Role Phone Vore, Wilian W Unavailable Unavailable Vore, Wilian W Unavailable Unavailable Tourlas, Jimi Unavailable Unavailabl e Tourlas, Jimi Unavailable Unavailabl e Tourlas, Jimi Unavailable Unavailabl e Tourlas, Jimi Unavailable Unavailabl e Tourlas, Jimi Unavailable Unavailabl e Mallapareddi, Nando Nag Unavailable Unavailab le Tourlas, Jimi Unavailable Unavailabl e Vore, Wilian W Unavailable Unavailable Mallapareddi, Nando Nag S Unavailable Unavail able Tourlas, Jimi Unavailable Unavailabl e Mallapareddi, Nando Nag S Unavailable [phone] Nando Esposito Primary Care Provider Dr. Angel Melendrez Emergency Provider Dr. Nathaly Muniz Admit Provider Dr. Nathaly Muniz Attending Provider Dr. Nathaly Muniz Other Provider Dr. Alcon Panda Attending Provider Unavailable Dr. Alcon Panda Other Provider Unavailable Dr. Calin Morrison Attending Provider Dr. Calin Morrison Other Provider Dr. Calin Morrison Attending Provider Dr. Alcon Panda Referring Provider Unavailable Dr. Iker Grey Emergency Provider Dr. Florencio Marti Admit Provider Dr. Florencio Marti Attending Provider Dr. Florencio Marti Other Provider Dr. Yajaira Bryan Other Provider Dr. Yajaira Bryan Attending Provider Nando Esposito Unavailable Unavail able Adi Leone Unavailable Hamad, Derrick Unavailable Unavailable Weston, Mitchell Unavailable Unavailable Lalito Mendezfiz Unavailable Unavailable Psych Consult Unavailable Unavailable Augie Delgado Unavailable Tracy Nur, Revital Unavailable Unavai lable Omoregie, Dana Unavailable Unavailable ALYCE MARQUEZ Attending Unavailable ALYCE MARQUEZ Admitting Unavailable Nando Esposito MD [facility] Primary Care Provider Dr. Nando Esposito Primary Care Provider Dr. Angel Melendrez Emergency Provider Dr. Nathaly Muniz Admit Provider Dr. Nathaly Muniz Attending Provider Dr. Nathaly Muniz Other Provider Dr. Calin Morrison Attending Provider Dr. Alcon Panda Referring Provider Unavailable Dr. Alcon Panda Attending Provider Unavailable Dr. Alcon Panda Other Provider Unavailable Dr. Calin Morrison Other Provider Dr. Iker Grey Emergency Provider Dr. Florencio Marti Admit Provider Dr. Florencio Marti Attending Provider Dr. Florencio Marti Other Provider Dr. Yajaira Bryan Other Provider Dr. Yajaira Bryan Attending Provider Pcp, No Primary Care Provider UnavailDr. Nando Kerr Primary Care Provider [phone] Dr. Calin Morrison Attending Provider MD Juan Lujan Emergency Provider Dr. Nathaly Muniz Admit Provider Dr. Nathaly Muniz Other Provider Dr. Lashae Bearden Attending Provider Dr. Lashae Bearden Other Provider PHYSICIAN, NOT RECORDED Primary Care Unavaila atilio ESPOSITO MD, NANDO ESPINOZA Attending MARKELL Marie MD Consulting Unavailable LATOUF, MARKELL MEEHAN Admitting Unavailable LATOUF, MARKELL MEEHAN Attending Unavailable LATOUF, MARKELL MEEHNA Primary Care Unavailable VIVIAN BEE MD Referring Unavailabl e PROVIDER, UNKNOWN Consulting Unavailable PROVIDER, UNKNOWN Consulting Unavailable PROVIDER, UNKNOWN Consulting Unavailable LATOUValeria, MARKELL MEEHAN Admitting Unavailable LATOUF, MARKELL MEEHAN Attending Unavailable LATOUF, MARKELL MEEHAN Primary Care Unavailable LATOUF, MARKELL MEEHAN Consulting Unavailable PROVIDER, UNKNOWN Consulting Unavailable PROVIDER, UNKNOWN Consulting Unavailable PROVIDER, UNKNOWN Consulting Unavailable MALLAPAREDDI, NANDO NAG ELIZABETH Primary Care Unavailable Omoregie, Ms. Dana Sanders Referring Un available Omoregie, Ms. Dana Sanders Attending Un available MALLAPAREDDI, NANDO NAG ELIZABETH Referring Unavailable MALLAPAREDDI, NANDO PÉREZHOSH Attending Unavailable MALLAPAREDDI, NANDO NAG ELIZABETH Primary Care Unavailable MALLAPAREDDI, NANDO NAG ELIZABETH Referring Unavailable MALLAPAREDDI, NANDO NAG ELIZABETH Primary Care Unavailable MALLAPAREDDI, NANDO ESPINOZA ELIZABETH Attending Unavailable MALLAPAREDDI, NANDO NAG ELIZABETH Referring Unavailable MALLAPAREDDI, NANDO NAG ELIZABETH Attending Unavailable MALLAPAREDDI, NANDO NAG ELIZABETH Primary Care Unavailable MALLAPAREDDI, NANDO NAG ELIZABETH Referring Unavailable MALLAPAREDDI, NANDO NAG ELIZABETH Attending Unavailable MALLAPAREDDI, NANDO NAG ELIZABETH Primary Care Unavailable MALLAPAREDDI, NANDO NAG ELIZABETH Primary Care Unavailable MALLAPAREDDI, NANDO NAG ELIZABETH Referring Unavailable MALLAPAREDDI, NANDO NAG ELIZABETH Attending Unavailable MALLAPAREDDI, NANDO NAG ELIZABETH Primary Care Unavailable MALLAPAREDDI, NANDO NAG ELIZABETH Referring Unavailable MALLAPAREDDI, NANDO NAG ELIZABETH Attending Unavailable MALLEZEQUIEL, NANDO [facility] Referring Unavailable MALLAPAREDJEAN CARLOS, [facility] Attending Unavailable MALLRUDYREDJEAN CARLOS, NANDO [facility] Primary Care Unavailable Mitchell Ontiveros Attending Unavailable MALLAPAREDJEAN CARLOS, NANDO [facility] Primary Care Unavailable Al-Patricio Phillipseer Referring Unavailable MALLEZEQUIEL, NANDO [facility] Primary Care Unavailable Dr. Jeffy Brown Referring Unavailable Dr. Jeffy Brown Admitting Unavailable Patricio Delgadoeer Attending Unavailable Dr. Nando Esposito Primary Care Provider Dr. Florencio Marti Attending Provider Dr. Florencio Marti Other Provider Dr. Nanod Esposito Referring Provider Augustine MARKETING PROGRAM COORDINATOR, YOLANDA-C Macy Attending Provider FLORENCIO ERNST Referring Unavailable MALLEZEQUIEL, NANDO [facility] Primary Care Unavailable CONSULT, SURGERY - NEURO Consulting Unavail able SERA SALDIVAR Admitting Unavailable AWA DA SILVA Attending Unavailable Dr. Nando Esposito Primary Care Provider Dr. Nando Esposito Referring Provider Augustine MARKETING PROGRAM COORDINATOR, MARKETING PROGRAM COORDINATOR-C Macy Attending Provider Dr. Calin Morrison Attending Provider Suhas ROSS, CODY Salmeron Attending Provider Vaibhav MEEHAN MPH, Nando Louis Primary Care Pro vider Vaibhav MEEHAN MPH, Nando Louis Unavailable Unavailable Primary Care Provider Unavailabl e VAIBHAV, NANDO ESPINOZA S Attending Unavail able VAIBHAV, NANDO ESPINOZA S Primary Care Unavail able VAIBHAV, NANDO ESPINOZA S Attending Unavail able VAIBHAV, NANDO ESPINOZA S Primary Care Unavail able NANDO ESPOSITO Primary Care Unavail able Dr. Nando Esposito Primary Care Provider [phone] Dr. Nando Esposito Referring Provider VIRA Finn Attending Provider CODY Jean Baptiste Attending Provider NASIR MENDEZ Referring Unavailable Mallezequiel, Dr. Nando Mcgregor Primary Care Unavailable NASIR MENDEZ Admitting Unavailable NASIR MENDEZ Attending Unavailable Mallezequiel, Dr. Nando Mcgregor Primary Care Unavailable Mallapareddi, Dr. Nando Mcgregor Attending Unavailable Mallezequiel, Dr. Nando Mcgregor Referring Unavailable Dr. Calin Morrison Attending Provider CODY Jean Baptiste Referring Provider MD Anatoliy Moreno Attending Provider Dr. Bree Dave Emergency Provider Dr. Hebert Ruiz Admit Provider Dr. Hebert Ruiz Attending Provider Dr. Hebert Ruiz Other Provider Dr. Yajaira Bryan Other Provider MD Anatoliy Moreno Other Provider Dr. Comfort Cheung Other Provider Dr. Yajaira Bryan Attending Provider Dr. Shayla Kennedy Attending Provider [phone] Shayla Kennedy Other Provider Dr. Lashae Bearden Attending Provider Dr. Lashae Bearden Other Provider Dr. Nando Esposito Primary Care Provider [phone] Dr. Nando Esposito Referring Provider VIRA Finn Attending Provider CODY Jean Baptiste Attending Provider Dr. Calin Morrison Attending Provider Suhas ROSS, PA Ashley Salmeron Referring Provider MD Anatoliy Moreno Attending Provider Dr. Bree Dave Emergency Provider Dr. Hebert Ruiz Admit Provider Dr. Hebert Ruiz Attending Provider Dr. Hebert Ruiz Other Provider Dr. Yajaira Bryan Other Provider MD Anatoliy Moreno Other Provider Dr. Comfort Cheung Other Provider Dr. Yajaira Bryan Attending Provider Dr. Calin Morrison Referring Provider Dr. Shayla Kennedy Attending Provider Dr. Shayla Kennedy Other Provider Dr. Lashae Bearden Attending Provider Dr. Lashae Bearden Other Provider Semen[place], Dr. Lisbet Rodriguez Admit Provider Semenjack, Dr. Lisbet Rodriguez Attending Provider Semen[place], Dr. Lisbet Rodriguez Other Provider Dr. Nando Esposito Primary Care Provider [phone] Dr. Nando Esposito Referring Provider Bull MARKETING PROGRAM COORDINATOR, MARKETING PROGRAM COORDINATOR-C Gabi Attending Provider Dr. Carlos Pace Chi Primary Care Provider VIRA Finn Attending Provider Dr. Nando Esposito Primary Care Provider [phone] Dr. Bree Dave Emergency Provider Dr. Hebert Ruiz Admit Provider Dr. Hebert Ruiz Other Provider Dr. Yajaira Bryan Attending Provider Dr. Yajaira Bryan Other Provider MD Anatoliy Moreno Other Provider Dr. Comfort Cheung Other Provider MD Anatoliy Moreno Attending Provider Dr. Nando Esposito Referring Provider Dr. Carlos Pace Chi Referring Provider [phone] Dr. Tiara Jaimes Attending Provider [phone] Care Physician, No Primary Primary Care Provider Unavailable Dr. Nando Esposito Primary Care Provider Dr. Bree Dave Emergency Provider [phone] Dr. Hebert Ruiz Admit Provider Dr. Hebert Ruiz Other Provider MD Anatoliy Moreno Other Provider Dr. Comfort Cheung Other Provider Dr. Shayla Kennedy Other Provider Dr. Yajaira Bryan Other Provider Dr. Shayla Kennedy Attending Provider Unavailable Primary Care Provider Unavailabl e MARAH BAPTISTE Attending Unavailable MARAH BAPTISTE Attending Unavailable MARAH BAPTISTE Attending Unavailable MARAH BAPTISTE Attending Unavailable Oleghe, Efewongbe Primary Care Unavailable Oleghe, Efewongbe Referring Unavailable Oleghe, Efewongbe Attending Unavailable Kait Finn Attending Unavailable Oleghe, Efewongbe Primary Care Unavailable Oleghe, Efewongbe Referring Unavailable Kait Finn Attending Unavailable Oleghe, Efewongbe Referring Unavailable Oleghe, Efewongbe Primary Care Unavailable Oleghe, Efewongbe Primary Care Unavailable Oleghe, Efewongbe Attending Unavailable Oleghe, Efewongbe Primary Care Unavailable Kait Finn Referring Unavailable Kait Finn Attending Unavailable Oleghe, Efewongbe Primary Care Unavailable Oleghe, Efewongbe Referring Unavailable Oleghe, Efewongbe Attending Unavailable Kait Finn Attending Unavailable Oleghe, Efewongbe Primary Care Unavailable Oleghe, Efewongbe Referring Unavailable Kait Finn Attending Unavailable Oleghe, Efewongbe Primary Care Unavailable Oleghe, Efewongbe Primary Care Unavailable Oleghe, Efewongbe Referring Unavailable Oleghe, Efewongbe Attending Unavailable Oleghe, Efewongbe Primary Care Unavailable Oleghe, Efewongbe Referring Unavailable Oleghe, Efewongbe Attending Unavailable Kait Finn Attending Unavailable Oleghe, Efewongbe Referring Unavailable Oleghe, Efewongbe Primary Care Unavailable Oleghe, Efewongbe Primary Care Unavailable Oleghe, Efewongbe Referring Unavailable Oleghe, Efewongbe Attending Unavailable Kait Finn Attending Unavailable Oleghe, Efewongbe Referring Unavailable Oleghe, Efewongbe Primary Care Unavailable Oleghe, Efewongbe Referring Unavailable Oleghe, Efewongbe Primary Care Unavailable Oleghe, Efewongbe Attending Unavailable Oleghe, Efewongbe Primary Care Unavailable Oleghe, Efewongbe Referring Unavailable Kait Finn Attending Unavailable Allergies Allergy Classification Reported Allergen(s) Allergy Type Date of Onset Reaction(s) Facility Adrenergic Agonists (1 source) Pseudoephedrine; Translations: [PSEUDOEPHEDRINE] Drug Allergy 03-17-20 [facility] Repository Angiotensin Converting Enzyme (YOEL) Inhibitors (1 source) Lisinopril; Translations: [LISINOPRIL] Drug Allergy 02-15-20 [facility] Repository Cromolyn (1 source) Cromolyn; Translations: [CROMOLYN] Drug Allergy 02-15-20 [facility] Repository Macrolides (antibiotic) (1 source) Erythromycin; Translations: [ERYTHROMYCIN] Drug Allergy 02-15-20 [facility] Repository Opioid Agonists (1 source) oxyCODONE; Translations: [OXYCODONE] Drug Allergy 02-15-20 [facility] Repository Penicillins (antibiotic) (2 sources) Ampicillin; Translations: [AMPICILLIN] Drug Allergy 08-09-20 [facility] Repository Quinolones (antibiotic) (1 source) levoFLOXacin; Translations: [LEVOFLOXACIN] Drug Allergy 08-09-20 [facility] Repository Sulfamethoxazole / Trimethoprim (1 source) Sulfamethoxazole / Trimethoprim; Translations: [SULFAMETHOXAZOLE-T RIMETHOPRIM] Drug Allergy 02-15-20 [facility] Repository Tetracyclines (antibiotic) (1 source) Tetracyclines; Translations: [TETRACYCLINES] Drug Allergy 08-09-20 [facility] Repository Unclassified (1 source) OTHER; Translations: [OTHER] Propensity to adverse reactions (disorder) 08-09-20 [facility] Repository (20 sources) ampicillin; Translations: [ampicillin] Drug Allergy 08-09-20 Hives [facility] Repository (20 sources) cromolyn; Translations: [Opticrom] Drug Allergy [facility] Repository (20 sources) erythromycin; Translations: [erythromycin] Drug Allergy 02-15-20 Other, Other: See Comments [facility] Repository (20 sources) levoFLOXacin; Translations: [Levaquin] Drug Allergy [facility], Unknown [facility] Repository (20 sources) lisinopril; Translations: [lisinopril] Drug Allergy 02-15-20 Cough [facility] Repository (20 sources) oxyCODONE; Translations: [oxyCODONE] Drug Allergy 02-15-20 Other, Unknown, Other: See Comments [facility] Repository (20 sources) Penicillins; Translations: [penicillins] Propensity to adverse reactions to drug (disorder) 08-09-20 Diarrhea, Hives, Itching, Rash [facility] Repository Comment on above: any cillins (1 source) pseudoephedrine; Translations: [Entex LA] Drug Allergy [facility] Repository (20 sources) sulfamethoxazole / trimethoprim; Translations: [Bactrim] Drug Allergy [facility] Rep[facility] (20 sources) levoFLOXacin; Translations: [LEVOFLOXACIN] Drug Allergy 08-09-20 08 Other [facility] Work Phone: (5 sources) ANTIBIOTICS Propensity to adverse reactions 05-17-20 Other [facility] Work Phone: (6 sources) Tetracycline (class of antibiotic) Propensity to adverse reactions 08-09-20 [facility] Work Phone: (6 sources) diomax [Other] Propensity to adverse reactions 08-09-20 [facility] Work Phone: (1 source) levoFLOXacin Drug Allergy [facility] Repository (1 source) Penicillin Drug Allergy [facility] Repository (8 sources) Cromolyn; Translations: [CROMOLYN] Drug Allergy 02-15-20 23 Other, Unknown, Other: See Comments [facility] (8 sources) Sulfamethoxazole / Trimethoprim; Translations: [SULFAMETHOXAZOLE-T RIMETHOPRIM] Drug Allergy 02-15-20 23 Other, Other: See Comments [facility] Work Phone: (4 sources) Pseudoephedrine Drug Allergy 03-17-20 23 Unknown [facility] (1 source) levoFLOXacin Drug Allergy 02-01-20 25 [facility] Repository Medications Current Medications Medication Drug Class(es) Dates Sig (Normalized) Sig (Original) acetaminophen 500 mg oral tablet (20 sources) Start: 07-05-2023 take 1000 mg by mouth every eight hours Acetaminophen Active 1000 MG PO EVERY 8 HOURS 0 July 04, 2023 11:00pm Start: 09-17-2022 End: 07-05-2023 take 2 tablets by mouth every four hours as needed Acetaminophen (Tylenol) 325 mg Tablet Discontinued 650 MG PO EVERY 4 HOURS NEEDED 0 September 17, 2022 12:00am July 05, 2023 7:48am Start: 08-03-2022 take 2 tablets by mo uth every four hours as needed acetaminophen 325 mg oral tablet ; 2 tab(s) orally every 4 hours, As needed, Pain - Mild (1-3) Quantity: 0 Refills: 0 Ordered: 03-Aug-2022 Natividad Martini Start: 03-Aug-2022 Generic Substitution Allowed Acetaminophen 32 5 MG Oral Tablet Quantity: 0 Refills: 0 Ordered: 20-Oct-2022 DO Active alcohol prep pads (1 source) Start: 08-03-2022 End: 09-01-2022 alcohol prep pads ; Apply topically to affected area 8 times a day to clearn skin before injection and fingersitck ADOD 08/03/22 M2B [id number] Quantity: 250 Refills: 0 Ordered: 03-Aug-2022 Dana Alexander Start: 03-Aug-2022 End: 01-Sep-2022 Generic Substitution Allowed amiodarone hydrochloride 200 mg oral tablet (20 sources) Antiarrhythmic Start: 11-01-2022 take 1 tablet by mouth once daily amiodarone (PACERONE) 200 mg tablet Take 200 mg by mouth once daily. 0 03/06/2023 Active Amiodarone HCl - 200 MG Oral Tablet Quantity: 0 Refills: 0 Ordered: 20-Oct-2022 DO Active Comment on above: Take 200 mg by mouth once daily. apixaban 5 mg oral tablet (20 sources) Factor Xa Inhibitor Start: 03-14-2023 take 1 tablet by mouth twice daily ELIQUIS 5 mg tab(s) Take 5 mg by mouth twice daily. 0 03/14/2023 Active Start: 08-14-2022 End: 08-20-2022 take 5 mg by mouth every twelve hours 5 mg, Oral, EVERY 12 HOURS, First dose on 08/14/22 at 2100, Until Discontinued Due to the rapid onset of action of apixaban, no overlap is needed with other anticoagulants (e.g. enoxaparin, heparin). Indications: Atrial Fibrillation Start: 05-19-2022 End: 11-04-2022 take 1 tablet by mouth twice daily Apixaban (Eliquis) 5 mg tablet Active 5 MG PO TWICE A DAY 180 November 04, 2022 2:47pm Comment on above: Take 5 mg by mouth t wice daily. atorvastatin 40 mg oral tablet (20 sources) HMG-CoA Reductase Inhibitor Start: take 1 tablet by mouth once daily at bedtime atorvastatin (LIPITOR) 40 mg tablet Take 40 mg by mouth daily at bedtime. 0 03/14/2023 Active Start: 08-03-2022 End: 01-29-2023 take 40 mg by mouth at bedtime Atorvastatin Discontinu ed 40 MG PO AT BEDTIME August 09, 2022 12:00am November 04, 2022 2:49pm Comment on above: Take 40 mg by mouth daily at bedtime. baclofen 10 mg oral tablet (11 sources) gamma-Aminobutyric Acid-ergic Agonist Start: 07-22-20 End: 09-07-20 take 5 mg by mouth three times daily Baclofen Active 5 MG PO THREE TIMES A DAY 45 September 07, 2023 7:10am benoxinate hydrochloride 4 mg/ml / fluorescein sodium 2.5 mg/ml ophthalmic solution (1 source) Diagnostic Dye Start: 04-28-20 End: 04-29-20 fluorescein-benoxinat e 0.25-0.4 % 1 Drop (FLURESS) bisacodyl 10 mg rectal suppository (2 sources) Stimulant Laxative Start: 09-07-20 take 10 mg rectal route every twenty-four hours as needed bisacodyl (Dulcolax) 10 mg suppository Insert 1 suppository (10 mg) into the rectum once daily as needed for constipation. 0 09/07/2022 Active Ca carb-Ca gluc-Mg ox-Mg gluco (CALCIUM MAGNESIUM) 500 mg calcium -250 mg tab (4 sources) Ca carb-Ca gluc- Mg ox-Mg gluco (CALCIUM MAGNESIUM) 500 mg calcium -250 mg tab Take by mouth. 0 Active Comment on above: Take by mouth. camphor 5 mg/ml / menthol 5 mg/ml topical lotion (1 source) Start: 08-03-20 Sarna 0.5%-0.5% topical lotion ; 1 application topically 4 times a day, As needed, Dry Skin - to Arm Quantity: 0 Refills: 0 Ordered: 03-Aug-2022 Natividad Martini Start: 03-Aug-2022 Generic Substitution Allowed carvedilol 12.5 mg oral tablet (7 sources) alpha-Adrenergic Kinjal, beta-Adrenergic Kinjal Start: 05-19-20 End: 08-11-20 take 12.5 mg by mouth twice daily Carvedilol Active 12.5 MG PO TWICE A DAY May 19, 2022 12:00am cobamamide 0.1 mg / vitamin b12 5 mg sublingual tablet (4 sources) Vitamin B12 Cyanocobalamin-C obama mide (B12) 5,000-100 mcg lozg Take 5,000 mcg by mouth. 0 Active Comment on above: Take 5,000 mcg by [place]. dapagliflozin 10 mg oral tablet (20 sources) Sodium-Glucose Cotransporter 2 Inhibitor Start: 02-10-20 take 1 tablet by mouth once daily Dapagliflozin Propanediol (Farxiga) 10 mg tablet Active 10 MG PO DAILY February 08, 2023 11:00pm Start: 08-03-2022 End: 01-29-2023 take 10 mg by mouth once daily 10 mg, Oral, DAILY, [facility]ir [facility] dose on Tue08/18/22 at 1300, Until Discontinued Do not administer if NPO Start: 05-19-2022 take 5 mg by mouth once daily Dapagliflozin Active 5 MG PO DAILY 60 May 19, 2022 12:00am Comment on above: Take 10 mg by mouth. docusate sodium 50 mg / sennosides, long-term 8.6 mg oral capsule (2 sources) Start: 10-21-2023 take 1 tablet by mouth twice daily Sennosides-Docusate Sodium (Senna Plus) 8.6-50 mg capsule Active 1 TAB-CAP PO TWICE A DAY October 21, 2023 12:00am Dulaglutide (19 sources) GLP-1 Receptor Agonist Start: 10-24-2023 Dulaglutide (Trulicity) 3 mg/0.5 mL pen injector Active 3 MG SC EVERY WEEK 2 October 24, 2023 12:00am Start: 09-01-2023 End: 10-24-2023 inject 1.5 mg by subcutaneous injection every week TRULICITY 1.5 mg/0.5 mL pen injector INJECT 1.5MG (0.5ML) UNDER THE SKIN EVERY WEEK 0 09/19/2023 Active Start: 07-28-2023 inject 0.5 mL by sub cutaneous injection every week TRULICITY 0.75 mg/0.5 mL pen injector INJECT 0.5 ML UNDER THE SKIN EVERY WEEK 0 07/28/2023 Active Start: 05-18-2023 inject 0.5 mL by sub cutaneous injection every week Trulicity 0.75 mg/0.5 mL pen injector INJECT 0.5 ML UNDER THE SKIN EVERY WEEK 0 05/18/2023 Active Start: 05-18-2023 End: 09-01-2023 Dulaglutide (Trulicity) 0.75 mg/0.5 mL pen injector Discontinued 0.75 MG SC EVERY WEEK 2 May 17, 2023 11:00pm September 01, 2023 4:28pm Comment on above: INJECT 0.5 ML UNDER THE SKIN EVERY WEEK INJECT 1.5MG (0.5ML) UNDER THE SKIN EVERY WEEK DULoxetine 60 mg delayed release oral capsule (20 sources) Serotonin and Norepinephrine Reuptake Inhibitor Start: 08-12-20 End: 08-20-20 take 1 capsule by mouth once daily at bedtime 30 mg, Oral, DAILY AT BEDTIME, First dose (after last modification) on Judy 08/19/22 at 2100, Until Discontinued Swallow capsule whole; do not crush or chew. May add contents of capsule to apple juice or applesauce (but NOT chocolate) taking care not to crush the pellets and damage the enteric coating. Start: 08-03-2022 End: 11-30-2022 take 1 capsule by mouth once at bedtime Cymbalta 30 mg oral delayed release capsule ; 1 cap(s) orally once (at bedtime) -.Meds to Beds Quantity: 30 Refills: 3 Ordered: 03-Aug-2022 Natividad Martini Start: 03-Aug-2022 End: 30-Nov-2022 Generic Substitution Allowed Start: 11-08-2021 End: 10-21-2023 take 120 mg by mouth at bedtime Duloxetine Discontinue d 120 MG PO AT BEDTIME November 08, 2021 12:00am October 21, 2023 2:27pm Start: 09-02-2020 End: 02-14-2024 take 1 capsule by mouth twice daily DULoxetine (CYMBALTA) 60 mg capsule Take 60 mg by mouth twice daily. 0 03/14/2023 Active Start: 09-02-2020 take 2 capsules by m outh at bedtime DULoxetine HCl - 60 MG Oral Capsule Delayed Release Particles TAKE 2 CAPSULES AT BEDTIME. Quantity: 180 Refills: 3 Ordered: 29-Jun-2022 Vaibhav MEEHAN, MPH, Nando Espinoza Start : 02-Sep-2020 Active Comment on above: Take 60 mg by mouth twice daily. ferrous sulfate 325 mg oral tablet (20 sources) Start: 11-01-2022 take 1 tablet by mouth once daily FEROSUL 325 mg (65 mg iron) tablet Take 1 tablet by mouth once daily. 0 03/14/2023 Active Start: 09-17-2022 take 1 tablet by lu once daily Ferrous Sulfate (Ferosul) 325 mg (65 mg iron) Tablet Active 325 MG PO DAILY@1200 0 September 17, 2022 12:00am take 1 tablet by lu th once daily Ferrous Sulfate 324 (65 Fe) MG Oral Tablet Delayed Release Take 1 tablet daily Quantity: 0 Refills: 11 Ordered: 22-Oct-2022 DO Active Comment on above: Take 1 tablet by lu th once daily. Flash Glucose Sensor (Freestyle Paulette 2 Sensor) kit (4 sources) Start: 3 Flash Glucose Sensor (Freestyle Paulette 2 Sensor) kit Active 0 .Route August 19, 2023 12:00am As directed freestyle paulette 2 sensor (1 source) Start: 2 End: 2 freestyle paueltte 2 sensor ; 1 each transdermally every 2 weeks ADOD 08/03/22 M2B [id number] Quantity: 2 Refills: 0 Ordered: 03-Aug-2022 Dana Alexander Start: 03-Aug-2022 End: 01-Sep-2022 Generic Substitution Allowed FREESTYLE PAULETTE 2 SENSOR kit (3 sources) Start: 3 FREESTYLE PAULETTE 2 SENSOR kit APPLY 1 PATCH TO UPPER ARM EVERY 2 WEEKS. ALTERNATE APPLICATION SITE AND REMOVE OLD SENSOR. CHECK BLOOD SUGAR UP TO 4 TIMES A DAY 0 04/03/2023 Active Comment on above: APPLY 1 PATCH TO UPP ER ARM EVERY 2 WEEKS. ALTERNATE APPLICATION SITE AND REMOVE OLD SENSOR. CHECK BLOOD SUGAR UP TO 4 TIMES A DAY furosemide 40 mg oral tablet (20 sources) Loop Diuretic Start: 3 take 40 mg by mouth every other day Furosemide Active 40 MG PO every other day August 18, 2023 1:30pm Start: 03-06-2023 End: 08-18-2023 take 1 tablet by mouth once daily furosemide (LASIX) 40 mg tablet Take 40 mg by mouth once daily. 0 03/06/2023 Active Start: 02-09-2023 End: 05-09-2023 take 20 mg by mouth once daily Furosemide Discontinued 20 MG PO DAILY February 09, 2023 12:37pm May 09, 2023 9:22am Start: 09-17-2022 End: 02-09-2023 take 40 mg by mouth once daily Furosemide Discontinued 40 MG PO DAILY November 04, 2022 2:47pm February 09, 2023 12:38pm Start: 08-20-2022 End: 08-20-2022 take 40 mg by mouth once daily 40 mg, Oral, DAILY, Fir st dose on Tue08/20/22 at 0900, Until Discontinued Start: 08-19-2022 End: 08-19-2022 40 mg, Intravenous, ONCE, 1 dose, On Judy 08/19/22 at 0715 Administer by slow IV push at a rate not exceeding 40mg/min Start: 08-18-2022 End: 08-18-2022 40 mg, Intravenous, ONCE, 1 dose, On Tue08/18/22 at 1345 Administer by slow IV push at a rate not exceeding 40mg/min Start: 05-19-2022 End: 01-29-2023 take 1 tablet by mouth once daily Furosemide (Lasix) 20 mg tablet Discontinued 20 MG PO DAILY 60 May 18, 2022 11:00pm September 17, 2022 3:34pm Comment on above: Take 40 mg by mouth once daily. gabapentin 100 mg oral capsule (11 sources) Anti-epileptic Agent Start: 07-22-2023 End: 09-07-2023 take 100 mg by mouth three times daily at mealtime Gabapentin Active 100 MG PO 3 TIMES DAILY WITH MEALS September 07, 2023 7:10am glucometer (1 source) Start: 08-03-2022 End: 08-02-2023 glucometer ; 1 each transdermally 4 times a day to measure glucose ADOD 08/03/22 M2B [id number] Quantity: 1 Refills: 0 Ordered: 03-Aug-2022 OmDana stanford Start: 03-Aug-2022 End: 02-Aug-2023 Generic Substitution Allowed Handicap Placard (4 sources) Start: 10-21-2023 Handicap Placard Active 0 .ROUTE .MEDSUPPLY October 21, 2023 2:35pm As directed, length of time 3 years Start: 10-21-2023 End: 10-21-2023 Handicap Placard Discontinue d 0 .ROUTE .MEDSUPPLY October 21, 2023 12:00am October 21, 2023 2:36pm As directed, length of time 3 years 3 ml insulin isophane, human 100 unt/ml pen injector (6 sources) Start: 09-16-2023 HUMULIN N NPH INSULIN KWIKPEN 100 unit/mL (3 mL) injection pen INJECT 20 UNITS UNDER THE SKIN EVERY MORNING 0 09/16/2023 Active Start: 09-01-2023 End: 10-21-2023 Insulin Nph Isoph U-100 Peyton n (Humulin N Nph Insulin Kwikpen) 100 unit/mL (3 mL) insulin pen Discontinued 20 UNIT SC EVERY MORNING 6 September 01, 2023 12:00am October 21, 2023 1:56pm Comment on above: INJECT 20 UNITS UNDE R THE SKIN EVERY MORNING 3 ml insulin lispro 100 unt/ml pen injector (20 sources) Insulin Analog Start: 10-21-2023 Insulin Lispro (Humalog Kwikpen Insulin) 100 unit/mL insulin pen Active 12 UNIT SC DAILY October 21, 2023 1:56pm Start: 07-05-2023 End: 10-21-2023 Insulin Lispro (Humalog Kwik pen Insulin) 100 unit/mL insulin pen Discontinued 12 UNIT SC THREE TIMES A DAY 54 July 05, 2023 2:59pm October 21, 2023 1:56pm Start: 05-09-2023 End: 07-05-2023 Insulin Lispro (Humalog Kwik pen Insulin) 100 unit/mL insulin pen Discontinued 20 UNIT SC THREE TIMES A DAY 54 May 08, 2023 11:00pm July 05, 2023 2:59pm Start: 03-14-2023 HUMALOG KWIKPE N INSULIN 100 unit/mL INJECT 2 UNITS SUBCUTANEOUSLY WITH EACH MEAL. ADD 1 UNIT FOR EVERY 50 UNITS GREATER THAN 150 MG/DL. CALL PCP IF BLOOD GLUCOSE IS GREATER CHAMP 0 03/14/2023 Active Start: 11-02-2022 inject 1 [IU] by sub cutaneous injection once Insulin Lispro (1 Unit Dial) 100 UNIT/ML Subcutaneous Solution Pen-injector Inj 2 units sq with each meal; add 1 units for every 50 units >150 mgdl; call PCP if BG>449 Quantity: 3 Refills: 3 Ordered: 02-Nov-2022 Vaibhav MEEAHN, MPH, Nando Espinoza Start : 02-Nov-2022 Active Start: 09-17-2022 End: 05-09-2023 Insulin Lispro (Humalog Kwik pen Insulin) 100 unit/mL Insulin Pen Discontinued 0 UNIT SC BEFORE MEALS AND AT BEDTIME 0 September 17, 2022 12:00am May 09, 2023 9:21am Start: 08-09-2022 End: 05-09-2023 Insulin Lispro Discontinued 4 UNIT SC THREE TIMES A DAY August 09, 2022 12:00am May 09, 2023 9:21am Start: 08-03-2022 End: 01-29-2023 Insulin Lispro KwikPen 100 units/mL injectable solution ; 4 unit(s) injectable 3 times a day -.Meds to Beds Quantity: 1 Refills: 1 Ordered: 03-Aug-2022 Natividad Martini Start: 03-Aug-2022 End: 29-Jan-2023 Generic Substitution Allowed HumaLOG KwikPen Insulin 100 unit/mL injection INJECT 20 UNITS UNDER THE SKIN THREE TIMES DAILY 0 Active Comment on above: INJECT 2 UNITS SUBCU TANEOUSLY WITH EACH MEAL. ADD 1 UNIT FOR EVERY 50 UNITS GREATER THAN 150 MG/DL. CALL PCP IF BLOOD GLUCOSE IS GREATER CHAMP 3 ml liraglutide 6 mg/ml pen injector (10 sources) GLP-1 Receptor Agonist Start: liraglutide (VICTOZA) 0.6 mg/ 0.1 ml subcutaneous pen injector Inject subcutaneously. 0 06/15/2021 Active Comment on above: Inject subcutaneousl y. Magnesium (9 sources) Start: take 500 mg by mouth once daily Magnesium Active 500 MG PO DAILY May 08, 2023 11:00pm Start: 05-09-2023 take 500 mg by mouth once rona y Magnesium Active 500 MG PO DAILY May 09, 2023 12:00am 24 hr metoprolol succinate 50 mg extended release oral tablet (20 sources) beta-Adrenergic Kinjal Start: 10-21-2023 take 50 mg by mouth once daily Metoprolol Succinate Active 50 MG PO DAILY October 21, 2023 12:00am Start: 07-22-2023 End: 10-21-2023 take 25 mg by mouth at bedtime Metoprolol Succinate Di scontinued 25 MG PO AT BEDTIME July 22, 2023 12:00am October 21, 2023 1:48pm Start: 06-07-2023 End: 07-22-2023 take 50 mg by mouth once daily Metoprolol Succinate Di scontinued 50 MG PO DAILY June 07, 2023 1:23pm July 22, 2023 2:16pm Start: 03-14-2023 take 50 mg by mouth once daily metoprolol succinate ER (TOPROL XL) 100 mg Take 50 mg by mouth once daily. 0 03/14/2023 Active Start: 10-22-2022 take 1.5 tablets by mouth twice daily Metoprolol Succinate ER 50 MG Oral Tablet Extended Release 24 Hour TAKE 1.5 TABLET Twice daily Quantity: 270 Refills: 0 Ordered: 22-Oct-2022 Trenton Devine MD Start : 22-Oct-2022 Active Start: 09-17-2022 End: 11-04-2022 take 150 mg by mouth once daily Metoprolol Succinate Discontinued 150 MG PO DAILY September 17, 2022 12:00am November 04, 2022 2:49pm Start: 08-20-2022 End: 11-18-2022 Start: 08-17-2022 End: 08-20-2022 100 mg, Oral, DAILY, First d ose on Tue08/17/22 at 1300, Until Discontinued Slow release product. Do not crush. Extended release can be cut in half. Start: 08-11-2022 End: 08-12-2022 5 mg, Intravenous, ONCE, 1 d ose, On Tue08/12/22 at 0345 Start: 08-11-2022 End: 08-11-2022 take 50 mg by mouth every twelve hours 50 mg, Oral, EVERY 12 HOURS, First dose (after last modification) on Tue08/11/22 at 2100, Until Discontinued Start: 08-11-2022 End: 08-12-2022 25 mg, Per NG tube, ONCE, 1 dose, On Tue08/12/22 at 0545 Start: 08-11-2022 End: 08-11-2022 25 mg, Per NG tube, EVERY 12 HOURS, First dose on Tue08/11/22 at 0800, Until Discontinued Start: 07-06-2022 End: 06-07-2023 take 100 mg by mouth once daily Metoprolol Succinate Discontinued 100 MG PO DAILY November 04, 2022 2:46pm June 07, 2023 1:25pm Start: 06-29-2022 End: 07-06-2022 take 50 mg by mouth once daily Metoprolol Succinate Di scontinued 50 MG PO DAILY July 05, 2022 11:00pm July 06, 2022 9:30am take 1 tablet by lu th twice daily metoprolol tartrate, short acting, (LOPRESSOR) 25 mg tablet Take 25 mg by mouth twice daily. 0 Active Comment on above: Take 25 mg by mouth twice daily. Take 50 mg by mouth once daily. nystatin 100 unt/mg topical powder (20 sources) Polyene Antifungal Start: 10-16-2022 nystatin (Mycostatin) 100,000 unit/gram powder Start: 09-17-2022 End: 07-22-2023 nystatin (MYCOSTATIN) powder APPLY POWDER TOPICALLY 2 TIMES A DAY TO AFFECTED AREA 0 04/06/2023 Active Start: 08-03-2022 nystatin ; Felice ly topically to affected area 3 times a day, As Needed - to Groin Quantity: 0 Refills: 0 Ordered: 03-Aug-2022 Natividad Martini Start: 03-Aug-2022 Generic Substitution Allowed Comment on above: APPLY POWDER TOPICAL LY 2 TIMES A DAY TO AFFECTED AREA pantoprazole 40 mg delayed release oral tablet (2 sources) Proton Pump Inhibitor Start: 08-03-20 End: 09-01-20 take 1 tablet by mouth twice daily Protonix 40 mg oral delayed release tablet ; 1 tab(s) orally 2 times a day -.Meds to Beds Quantity: 60 Refills: 0 Ordered: 03-Aug-2022 Natividad Martini Start: 03-Aug-2022 End: 01-Sep-2022 Generic Substitution Allowed phenylephrine hydrochloride 25 mg/ml ophthalmic solution (1 source) alpha-1 Adrenergic Agonist Start: 03-17-20 End: 03-18-20 PHENYLephrine 2.5 % 1 Drop (AK-DILATE, JAMILA-SYNEPHRINE) proparacaine hydrochloride 5 mg/ml ophthalmic solution (1 source) Local Anesthetic Start: 03-17-20 End: 03-18-20 proparacaine 0.5 % 1 Drop (ALCAINE) spironolactone 25 mg oral tablet (2 sources) Aldosterone Antagonist Start: 08-03-20 End: 01-30-20 take 0.5 tablet by mouth once daily Aldactone 25 mg oral tablet ; 0.5 tab(s) orally once a day -.Meds to Beds Quantity: 45 Refills: 1 Ordered: 03-Aug-2022 Natividad Martini Start: 03-Aug-2022 End: 29-Jan-2023 Generic Substitution Allowed tetracycline hydrochloride 500 mg oral capsule (2 sources) Tetracycline-class Antimicrobial Start: 08-03-20 End: 08-16-20 take 1 capsule by mouth every six hours tetracycline 500 mg oral capsule ; 1 cap(s) orally every 6 hours -.Meds to Beds Quantity: 32 Refills: 0 Ordered: 03-Aug-2022 Natividad Martini Start: 03-Aug-2022 End: 10-Aug-2022 Generic Substitution Allowed torsemide 20 mg oral tablet (10 sources) Loop Diuretic Start: 03-14-20 take 1 tablet by mouth once daily torsemide (DEMADEX) 20 mg tablet Take 20 mg by mouth once daily. 0 03/14/2023 Active Torsemide 20 MG Oral Tablet Quantity: 0 Refills: 0 Ordered: 20-Oct-2022 DO Active Comment on above: Take 20 mg by mouth once daily. traMADol hydrochloride 50 mg oral tablet (9 sources) Opioid Agonist Start: 08-08-2023 take 1 tablet by mouth every twelve hours traMADol (ULTRAM) 50 mg tablet Take 1 tablet by mouth every 12 hours. 0 08/08/2023 Active Start: 07-22-2023 take 50 mg by mouth every six hours Tramadol Active 50 MG PO EVERY 6 HOURS 28 July 22, 2023 12:00am Comment on above: Take 1 tablet by lu th every 12 hours. traZODone hydrochloride 100 mg oral tablet (20 sources) Serotonin Reuptake Inhibitor Start: 09-19-2023 take 1 tablet by mouth every twenty-four hours as needed traZODone (DESYREL) 100 mg tablet Take 100 mg by mouth at bedtime as needed. 0 09/19/2023 Active Start: 05-30-2023 traZODone (Anand yrel) 100 mg tablet Indications: Insomnia, unspecified type Take 1 tablet (100 mg) by mouth as needed at bedtime for sleep. 30 tablet 0 05/30/2023 Active Start: 02-14-2023 End: 02-14-2024 take 100 mg by mouth once daily Trazodone Active 100 M G PO DAILY May 08, 2023 11:00pm Start: 08-13-2022 End: 08-20-2022 take 50 mg by mouth once daily at bedtime as needed for sleep 50 mg, Oral, DAILY AT BEDTIME NEEDED, Starting on Tue08/13/22 at 0000, Until Tue08/20/22 at 1544, Sleep Start: 08-15-2020 End: 02-09-2023 take 100 mg by mouth at bedtime Trazodone Discontinued 100 MG PO AT BEDTIME May 16, 2022 11:00pm February 09, 2023 12:25pm Comment on above: Take 100 mg by mouth at bedtime as needed. tropicamide 10 mg/ml ophthalmic solution (2 sources) Anticholinergic Start: 04-28-2023 End: 04-29-2023 tropicamide 1 % 1 Drop (MYDRIACYL) Start: 03-17-2023 End: 03-18-2023 tropicamide 1 % 1 Drop (MYDR IACYL) vitamin b12 1 mg oral capsule (2 sources) Vitamin B12 Start: 10-21-2023 take 1000 ug by mouth once daily Cyanocobalamin (Vitamin B-12) Active 1000 MCG PO DAILY October 21, 2023 12:00am Completed/Discontinued Medications Medication Drug Class(es) Dates Sig (Normalized) Sig (Original) acetaminophen 325 mg / HYDROcodone bitartrate 5 mg oral tablet (9 sources) Opioid Agonist Start: 06-09-2023 End: 06-21-2023 take 1 tablet by mouth every six hours as needed Hydrocodone-Acetam inophen Discontinued 1 TABLET PO EVERY 6 HOURS NEEDED 06 14June 09, 2023 June 21, 2023 5:14am albuterol 0.83 mg/ml inhalation solution (2 sources) beta2-Adrenergic Agonist Start: 08-09-2022 End: 08-20-2022 take 2.5 mg by inhalation every six hours as needed 2.5 mg, Nebulization, EVERY 6 HOURS NEEDED, Starting on Tue08/18/22 at 1300, Until Tue08/20/22 at 1544, Wheezing, Shortness of Breath alogliptin 6.25 mg oral tablet (5 sources) Start: 04-05-2022 take 1 tablet by mouth once daily Alogliptin Benzoate 6.25 MG Oral Tablet TAKE 1 TABLET BY MOUTH ONCE DAILY Quantity: 1 Refills: 2 Ordered: 05-Apr-2022 Vaibhav MEEHAN, MPH, Nando Espinoza Start : 05-Apr-2022 Active bismuth subsalicylate 17.5 mg/ml oral suspension (4 sources) Bismuth Start: 08-10-2022 End: 08-10-2022 30 mL, Per NG tube, 4 TIMES DAILY, 2 doses, First dose (after last modification) on Tue08/10/22 at 1700, Last dose on Tue08/10/22 at 2100 Start: 08-09-2022 End: 08-11-2022 take 15 mL by mouth every six hours as needed 15 mL, Oral, EVERY 6 HOURS NEEDED, Starting on Tue08/09/22 at 1037, Until Tue08/11/22 at 1036, Other, pylori tx Start: 08-03-2022 End: 08-10-2022 take 2 tablets by mouth four times daily Pepto-Bismol 262 mg oral tablet ; 2 tab(s) orally 4 times a day -.Meds to Beds Quantity: 64 Refills: 0 Ordered: 03-Aug-2022 Natividad Martini Start: 03-Aug-2022 End: 10-Aug-2022 Generic Substitution Allowed Start: 08-03-2022 End: 08-16-2022 Blood Glucose Monitor System w/Device Kit (2 sources) Start: 07-18-2019 Blood Glucose Monitor System w/Device Kit check blood sugar once a day Quantity: 1 Refills: 0 Vaibhav MEEHAN, MPH, Nando Espinoza Start : 18-Jul-2019 Active ceFAZolin (8 sources) Cephalosporin Antibacterial Start: 06-27-2023 End: 07-22-2023 Cefazolin Discontinued 2 GM IV Q8H June 26, 2023 11:00pm July 22, 2023 2:14pm dx: MSSA bacteremia stop date 07/21/23 weekly bmp, cbc, and esr; fax to [phone] Start: 06-27-2023 Cefazolin Acti ve 2 GM IV Q8H June 27, 2023 12:00am dx: MSSA bacteremia stop date 07/21/23 weekly bmp, cbc, and esr; fax to [phone] codeine phosphate 2 mg/ml / guaiFENesin 20 mg/ml oral solution (3 sources) Opioid Agonist Start: 10-18-2015 End: 03-17-2023 take 5-10 mL by mouth every six hours as needed codeine-guaiFENesin (ROBITUSSIN AC) 10-100 mg/5 mL syrup Take 5-10 mL by mouth four times daily as needed for Cough. May cause drowsiness. 120 mL 0 10/18/2015 03/17/2023 Discontinued (Other) Comment on above: Take 5-10 mL by mout h four times daily as needed for Cough. May cause drowsiness. cyclobenzaprine hydrochloride 10 mg oral tablet (1 source) Muscle Relaxant Start: 08-20-2022 End: 08-20-2022 take 5 mg by mouth three times daily as needed for pain 5 mg, Oral, 3 TIMES DAILY NEEDED, Starting on Tue08/20/22 at 0820, Until Tue08/20/22 at 1544, Muscle spasms, Moderate Pain 5 ml dilTIAZem hydrochloride 5 mg/ml injection (1 source) Calcium Channel Kinjal Start: 08-12-2022 End: 08-12-2022 23 mg (rounded from 23.025 mg = 0.25 mg/kg 92.1 kg), Intravenous, Administer over 2 Minutes, ONCE, 1 dose, On Judy 08/12/22 at 0945 doxycycline monohydrate 5 mg/ml oral suspension (3 sources) Tetracycline-c lass Drug Start: 08-10-2022 End: 08-11-2022 100 mg, Per NG tube, EVERY 12 HOURS, 2 doses, First dose (after last modification) on Tue08/10/22 at 2100, Last dose on Tue08/11/22 at 0900 Avoid antacid, iron, and sucralfate administration for 1 hour before and 2 hours after dose. Shake well. Start: 08-09-2022 End: 08-10-2022 100 mg, Oral, EVERY 12 HOURS , 4 doses, First dose on Tue08/09/22 at 1045, Last dose on Tue08/10/22 at 2100 Avoid antacid, iron, and sucralfate administration for 1 hour before and 2 hours after dose Start: 07-16-2022 doxycycline ; 100 milligram(s) every 12 hours - to Quantity: 0 Refills: 0 Ordered: 16-Jul-2022 Nasir Mendez Start: 16-Jul-2022 Generic Substitution Allowed esomeprazole 40 mg granules for oral suspension (2 sources) Proton Pump Inhibitor Start: 08-11-2022 End: 08-20-2022 40 mg, Oral, EVERY 12 HOURS, First dose (after last modification) on Tue08/11/22 at 2100, Until Discontinued Mix packet contents with at least 15 mL of water to completely dissolve the powder. Let stand 2 min to thicken. Stir or mix again, then administer within 30 min. For oral use, have patient drink entire contents of mixed packet. For enteral tubes: draw mixture into catheter-tipped (Emilio) syringe and administer through enteral tube (size Fr 6 or larger); refill syringe with 15 mL of water and flush. Indications: Continuation of Home Therapy Start: 08-10-2022 End: 08-11-2022 40 mg, Per NG tube, EVERY 12 HOURS, First dose on Tue08/10/22 at 2100, Until Discontinued Mix packet contents with at least 15 mL of water to completely dissolve the powder. Let stand 2 min to thicken. Stir or mix again, then administer within 30 min. For oral use, have patient drink entire contents of mixed packet. For enteral tubes: draw mixture into catheter-tipped (Emilio) syringe and administer through enteral tube (size Fr 6 or larger); refill syringe with 15 mL of water and flush. Indications: Continuation of Home Therapy Ethinyl Estradiol / Levonorgestrel (3 sources) Progestin, Estrogen, Progestin-containing Intrauterine Device Start: 07-01-2014 End: 03-17-2023 Levonorgestrel-Ethinyl Estrad (LEVORA-28) 0.15-30 mg-mcg per tablet Daily as instructed,Continuous Active pills new pack needed every 3 weeks 4 Package 3 07/01/2014 03/17/2023 Discontinued (Other) Start: 07-01-2014 Levonorgestrel -Ethinyl Estrad (LEVORA-28) 0.15-30 mg-mcg per tablet Daily as instructed,Continuous Active pills new pack needed every 3 weeks 4 Package 3 07/01/2014 Active Comment on above: Daily as instructed, Continuous Active pills new pack needed every 3 weeks glimepiride 4 mg oral tablet (20 sources) Sulfonylurea Start: 020 take 1 tablet by mouth twice daily at dinner Glimepiride 4 MG Oral Tablet Take 1 tablet twice daily with breakfast and dinner. Quantity: 180 Refills: 3 Ordered: 29-Jun-2022 Vaibhav MEEHAN, MPH, Nando Espinoza Start : 03-Sep-2020 Active Start: 07-18-2019 take 1 tablet by lu th twice daily at mealtime Glimepiride 2 MG Oral Tablet Take 1 tablet twice daily with meals Quantity: 180 Refills: 3 Vaibhav MEEHAN, MPH, Nando Espinoza Start : 18-Jul-2019 Active Start: 11-29-2015 take 1 tablet by lu th twice daily Glimepiride Active 1 TABLET PO TWICE A DAY November 29, 2015 12:00am glipiZIDE 10 mg oral tablet (15 sources) Sulfonylurea Start: 09-08-2022 End: 09-17-2022 take 10 mg by mouth once daily Glipizide Discontinued 10 MG PO DAILY September 08, 2022 12:00am September 17, 2022 3:34pm 1000 ml glucose 500 mg/ml injection (1 source) Start: 08-09-2022 End: 08-09-2022 1 dose, Starting on Tue08/09/22 at 0934, Until Tue08/09/22 at 0945 Created by cabinet override ++ If additional dextrose 50% needed, contact pharmacy or obtain from [facility] ++ glyBURIDE 2.5 mg oral tablet (3 sources) Sulfonylurea Start: 03-29-2011 End: 03-17-2023 take 1 tablet by mouth once daily at breakfast glyBURIDE 2.5 mg ORAL tablet Take 1 tablet by mouth daily with breakfast. 0 03/29/2011 03/17/2023 Discontinued (Other) Comment on above: Take 1 tablet by lu th daily with breakfast. hydroCHLOROthiazide 25 mg / triamterene 37.5 mg oral tablet (20 sources) Potassium-sparing Diuretic, Thiazide Diuretic Start: 05-17-2022 End: 05-19-2022 take 1 tablet by mouth once daily Triamterene-Hydr ochlorothiazid Discontinued 1 TABLET PO DAILY May 16, 2022 11:00pm May 19, 2022 8:48am Start: 07-18-2019 take 1 tablet by lu th once daily Triamterene-HCTZ 37.5-25 MG Oral Tablet Take 1 tablet daily Quantity: 90 Refills: 0 Ordered: 02-Apr-2022 Vaibhav MEEHAN, MPH, Nando Espinoza Start : 18-Jul-2019 Active Start: 08-18-2009 TRIAMTERENE-HY DROCHLOROTHIAZIDE 37.5 MG-25 MG CAP Takes 1/2 tablet daily 0 08/18/2009 Active Comment on above: Takes 1/2 tablet milagros ly 3 ml insulin glargine 100 unt/ml pen injector (20 sources) Insulin Analog Start: 07-05-2023 End: 07-05-2023 Insulin Glargine (Lantus Solostar U-100 Insulin) 100 unit/mL (3 mL) insulin pen Discontinued 22 UNIT SC AT BEDTIME July 05, 2023 7:46am July 05, 2023 7:49am Start: 07-05-2023 Insulin Glargi ne (Lantus Solostar U-100 Insulin) 100 unit/mL (3 mL) insulin pen Active 10 UNIT SC AT BEDTIME July 04, 2023 11:00pm Start: 06-21-2023 End: 07-05-2023 Insulin Glargine (Lantus Nichole ostar U-100 Insulin) 100 unit/mL (3 mL) insulin pen Discontinued 12 UNIT SC AT BEDTIME July 05, 2023 7:49am July 05, 2023 3:56pm Start: 05-09-2023 End: 06-21-2023 Insulin Glargine (Lantus Nichole ostar U-100 Insulin) 100 unit/mL (3 mL) insulin pen Discontinued 20 UNIT SC EVERY MORNING May 08, 2023 11:00pm June 21, 2023 5:19am Start: 10-16-2022 Lantus Solosta r U-100 Insulin 100 unit/mL (3 mL) pen Start: 09-07-2022 insulin glargi ne (LANTUS) 100 unit/mL injection 5 Units by SUBDERMAL route. 0 09/07/2022 Active Start: 09-07-2022 inject 5 [IU] by sub cutaneous injection once daily insulin glargine (Lantus) 100 unit/mL injection Inject 5 Units under the skin once daily. 0 09/07/2022 Active Start: 08-09-2022 End: 05-09-2023 Insulin Glargine (Lantus Nichole ostar U-100 Insulin) 100 unit/mL (3 mL) insulin pen Discontinued 20 UNIT SC AT BEDTIME August 09, 2022 12:00am May 09, 2023 9:21am Start: 08-03-2022 End: 01-29-2023 Lantus Solostar Pen 100 unit s/mL subcutaneous solution ; 20 unit(s) subcutaneous once a day -.Meds to Beds - Daily Before First Meal Quantity: 1 Refills: 1 Ordered: 03-Aug-2022 Natividad Martini Start: 03-Aug-2022 End: 29-Jan-2023 Generic Substitution Allowed Start: 07-16-2022 inject 15 [IU] by díaz bcutaneous injection every twenty-four hours insulin glargine 100 units/mL subcutaneous solution ; 15 unit(s) subcutaneous every 24 hours Quantity: 0 Refills: 0 Ordered: 16-Jul-2022 Nsair Mendez Start: 16-Jul-2022 Generic Substitution Allowed inject 10 [IU] by díaz bcutaneous injection once daily Lantus SoloStar 100 UNIT/ML Subcutaneous Solution Pen-injector INJECT 10 UNIT Daily Quantity: 3 Refills: 3 Ordered: 02-Nov-2022 Vaibhav MEEHAN, MPH, Nando Espinoza Active Comment on above: 5 Units by SUBDERMAL route. isopropyl alcohol 0.7 ml/ml medicated pad (2 sources) Start: Alcohol Pads 70 % Pad Use prior to checking blood sugar daily Quantity: 100 Refills: 3 Vaibhav MEEHAN, MPH, Nando Espinoza Start : 18-Jul-2019 Active labetalol hydrochloride 5 mg/ml injectable solution (1 source) beta-Adrenergic Kinjal Start: End: take 10 mg intravenously every six hours as needed 10 mg, Intravenous, EVERY 6 HOURS NEEDED, Starting on Tue08/09/22 at 0925, Until Tue08/20/22 at 1544, SBP > 160 mmHg with HR >60 bpm For vials: labetalol should be treated as a SINGLE USE VIAL. Discard remaining contents after one use. Post-op/Post-Proc lidocaine 0.04 mg/mg medicated patch (1 source) Antiarrhythmic, Amide Local Anesthetic Start: End: apply 1 dose transdermal route every twenty-four hours 1 patch, Transdermal, Administer over 12 Hours, EVERY 24 HOURS, First dose on Tue08/20/22 at 0900, Until Discontinued Apply to LINDEN . losartan potassium 25 mg oral tablet (20 sources) Angiotensin 2 Receptor Kinjal Start: End: take 25 mg by mouth once daily Losartan Discontinued 25 MG PO DAILY 30 July 22, 2023 2:17pm August 15, 2023 8:04am Start: 08-18-2022 End: 08-20-2022 take 12.5 mg by mouth once daily 12.5 mg, Oral, DAILY, First dose on Tue08/18/22 at 1130, Until Discontinued Start: 08-03-2022 End: 01-29-2023 Start: 07-18-2019 End: 09-17-2022 take 100 mg by mouth once daily Losartan Discontinued 100 MG PO DAILY July 05, 2022 11:00pm September 17, 2022 3:34pm Start: 11-29-2015 take 100 mg by mouth once daily Losartan Active 100 MG PO DAILY November 29, 2015 12:00am LOSARTAN POTASSI UM (LOSARTAN ORAL) Take by mouth. 0 Active Comment on above: Take by mouth. magnesium oxide 400 mg oral tablet (9 sources) Start: 08-20-2022 End: 08-20-2022 take 1 dose by mouth once 800 mg, Oral, ONCE, 1 dose, On Tue08/20/22 at 0800 Start: 08-19-2022 End: 08-19-2022 take 1 dose by mouth once 800 mg, Oral, ONCE, 1 dose, On Judy 08/19/22 at 0715 Start: 08-16-2022 End: 08-16-2022 take 1 dose by mouth once 800 mg, Oral, ONCE, 1 dose, On 08/16/22 at 1215 take 2 tablets by mo uth twice daily Magnesium Oxide 400 MG Oral Tablet TAKE 2 TABLET TWICE DAILY. Quantity: 60 Refills: 11 Ordered: 22-Oct-2022 Trenton Devine MD Active 50 ml magnesium sulfate 80 mg/ml injection (2 sources) Start: 08-19-2022 End: 08-19-2022 1 g, Intravenous, Administer over 60 Minutes, ONCE, 1 dose, On Judy 08/19/22 at 1645 Start: 08-09-2022 End: 08-10-2022 4 g, Intravenous, Administer over 4 Hours, ADMINISTER DIRECTED, Starting on 08/09/22 at 0936, Until Tu08/10/22 at 1702, Other, ICU Magnesium Replacement Parameters Administer 4 grams once if magnesium level is less than or equal to 2.0 mg/dL. If replacing potassium also, replete magnesium prior to KCl administration. EXCLUDE less than 45 kg, SCr greater than or equal to 2 mg/dL, CrCl less than 30 ml/min, ESRD, and renal replacement therapy mecobalamin 5 mg disintegrating oral tablet (9 sources) Start: 05-09-2023 End: 07-22-2023 take 5000 ug by mouth once daily Mecobalamin (Vitamin B12) Discontinued 5000 MCG PO DAILY May 08, 2023 11:00pm July 22, 2023 2:15pm melatonin 3 mg oral tablet (13 sources) Start: 09-17-2022 End: 11-04-2022 take 3 mg by mouth at bedtime as needed Melatonin Discontinued 3 MG PO AT BEDTIME NEEDED 0 September 17, 2022 12:00am November 04, 2022 2:15pm metFORMIN hydrochloride 1000 mg oral tablet (18 sources) Biguanide Start: 07-18-2019 take 1 tablet by mouth twice daily metFORMIN HCl - 1000 MG Oral Tablet TAKE 1 TABLET TWICE DAILY. Quantity: 180 Refills: 0 Ordered: 02-Apr-2022 Vaibhav MEEHAN, MPH, Nando Espinoza Start : 18-Jul-2019 Active Start: 08-18-2009 End: 03-17-2023 metformin hcl(GLUCOPHAGE 500 MG TAB) Take one(1) tablet twice daily. 0 08/18/2009 03/17/2023 Discontinued (Changing Therapy/Dosage Form) Comment on above: Take one(1) tablet t wice daily. 24 hr metFORMIN hydrochloride 1000 mg / SITagliptin 50 mg extended release oral tablet (12 sources) Biguanide, Dipeptidyl Peptidase 4 Inhibitor Start: 2021 take 1 tablet by mouth once daily at dinner Janumet XR 50-1000 MG Oral Tablet Extended Release 24 Hour TAKE 1 TABLET BY MOUTH ONCE DAILY WITH DINNER Quantity: 90 Refills: 3 Ordered: 29-Jun-2022 Vaibhav MEEHAN, MPH, Nando Espinoza Start : 23-Apr-2022 Active methylPREDNISolone 4 mg oral tablet (8 sources) Corticosteroid Start: 2022 End: 2022 take 1 tablet by mouth once Methylprednisolone (Medrol (Bird)) 4 mg tablets,dose pack Discontinued 0 PO per package directions June 19, 2023 11:00pm July 05, 2023 7:44am PO PER PKG DIR metroNIDAZOLE 500 mg oral tablet (4 sources) Nitroimidazole Antimicrobial Start: 2021 End: 2021 500 mg, Per NG tube, EVERY 8 HOURS, 2 doses, First dose (after last modification) on Tue08/10/22 at 2200, Last dose on Tue08/11/22 at 0600 Start: 08-03-2022 End: 08-16-2022 500 mg, Oral, EVERY 8 HOURS, 6 doses, First dose on Tue08/09/22 at 1400, Last dose on Tue08/11/22 at 0600 mirtazapine 15 mg oral tablet (3 sources) Start: 08-03-2022 End: 11-30-2022 take 15 mg by mouth once daily at bedtime 15 mg, Oral, DAILY AT BEDTIME, First dose on Tue08/16/22 at 2100, Until Discontinued polyethylene glycol 3350 85483 mg powder for oral solution (8 sources) Osmotic Laxative Start: 07-05-2023 End: 07-22-2023 take 17 g by mouth once daily Polyethylene Glycol 3350 Discontinued 17 GM PO DAILY 0 July 04, 2023 11:00pm July 22, 2023 2:15pm microencapsulated potassium chloride 10 meq extended release oral tablet (20 sources) Start: 05-09-2023 take 1 tablet by mouth once daily potassium chloride CR 10 mEq ER tablet Indications: Routine general medical examination at a health care facility Take 1 tablet (10 mEq) by mouth once daily. 90 tablet 2 05/09/2023 Active Start: 04-18-2023 End: 08-18-2023 take 1 tablet by mouth once daily potassium chloride ER (KLOR-CON M10) 10 mEq tablet Take 1 tablet by mouth once daily. 0 04/18/2023 Active Start: 09-17-2022 End: 07-05-2023 take 10 mEq by mouth once daily Potassium Chloride Discontinued 10 MEQ PO DAILY September 17, 2022 12:00am July 05, 2023 7:44am Start: 08-20-2022 End: 08-20-2022 20 mEq, Oral, ONCE, 1 dose, On 08/20/22 at 0800 Swallow tablets whole; do not crush, chew, or suck on tablet. Tablet may also be broken in half and each half swallowed separately. Start: 08-19-2022 End: 08-19-2022 20 mEq, Oral, ONCE, 1 dose, On Judy 08/19/22 at 0715 Swallow tablets whole; do not crush, chew, or suck on tablet. Tablet may also be broken in half and each half swallowed separately. potassium chlori de in water 10 mEq/100 mL Inject 10 mEq intravenously one time only. 0 Active take 1 tablet by lu th once daily Klor-Con M10 10 MEQ Oral Tablet Extended Release TAKE 1 TABLET DAILY. Quantity: 90 Refills: 1 Ordered: 01-Nov-2022 Vaibhav MEEHAN, MPH, Nando Espinoza Active Comment on above: Inject 10 mEq intrav enously one time only. Take 1 tablet by lu th once daily. Semaglutide (9 sources) Start: 05-09-2023 End: 05-18-2023 Semaglutide (Ozempic) 0.25 mg or 0.5 mg (2 mg/3 mL) pen injector Discontinued 0.5 MG SC EVERY WEEK May 08, 2023 11:00pm May 18, 2023 12:12pm Start: 05-09-2023 End: 05-18-2023 Semaglutide (Ozempic) 0.25 m g or 0.5 mg (2 mg/3 mL) pen injector Discontinued 0.5 MG SC EVERY WEEK May 09, 2023 12:00am May 18, 2023 1:12pm sennosides, long-term 8.6 mg oral tablet (3 sources) Start: 08-09-2022 End: 08-20-2022 take 8.6 mg by mouth once daily in the morning 8.6 mg, Oral, DAILY EVERY MORNING, First dose (after last modification) on Judy 08/12/22 at 0900, Until Discontinued Hold if BM in last 2 hours. sildenafil 50 mg oral tablet (7 sources) Phosphodiesterase 5 Inhibitor Start: 05-03-2022 take 1 tablet by mouth once daily Sildenafil Citrate 50 MG Oral Tablet TAKE 1 TABLET DAILY 1 HOUR BEFORE NEEDED Quantity: 30 Refills: 2 Ordered: 03-May-2022 Vaibhav MEEHAN, MPH, Nando Espinoza Start : 03-May-2022 Active SITagliptin 50 mg oral tablet (8 sources) Dipeptidyl Peptidase 4 Inhibitor Start: 05-11-2021 take 1 tablet by mouth once daily Januvia 50 MG Oral Tablet TAKE 1 TABLET DAILY. Quantity: 30 Refills: 2 Ordered: 02-Apr-2022 Vaibhav MEEHAN, MPH, Nando Espinoza Start : 11-May-2021 Active 250 ml sodium chloride 9 mg/ml injection (3 sources) Start: 08-14-2022 End: 08-14-2022 250 mL, Intravenous, ONCE, 1 dose, On 08/14/22 at 0300 Fluid Bolus Start: 08-10-2022 End: 08-10-2022 500 mL, Intravenous, ONCE, 1 dose, On 08/10/22 at 1600 Fluid Bolus Start: 08-09-2022 End: 08-09-2022 1-100 mL, Intravenous, ONCE NEEDED, 1 dose, Starting on Tue08/09/22 at 0828, Until Tue08/09/22 at 0828, Flush, CT Procedure SUMAtriptan 50 mg oral tablet (20 sources) Serotonin-1b and Serotonin-1d Receptor Agonist Start: 08-15-2020 take 1 tablet by mouth every two hours SUMAtriptan Succinate 50 MG Oral Tablet TAKE 1 TABLET FOR MIGRAINE RELIEF. MAY REPEAT EVERY 2 HOURS. MAX 200MG/DAY. Quantity: 30 Refills: 0 Ordered: 02-Apr-2022 Vaibhav MEEHAN, MPH, Nando Espinoza Start : 15-Aug-2020 Active Start: 11-29-2015 End: 12-01-2015 Sumatriptan Succinate Discon tinued 50 MG PO NEEDED November 28, 2015 11:00pm December 01, 2015 10:18am terbinafine hydrochloride 10 mg/ml topical cream (10 sources) Allylamine Antifungal Start: 04-05-2022 LamISIL AT [place] 1 % External Cream APPLY 2-3 TIMES DAILY TO AFFECTED AREA UNTIL THE LESION RESOLVES Quantity: 1 Refills: 4 Ordered: 05-Apr-2022 Vaibhav MEEHAN, MPH, Nando Espinoza Start : 05-Apr-2022 Active LamISIL AT [employer] 1% topical cream ; Apply topically to affected area 2-3 times a day Quantity: 0 Refills: 0 Ordered: 09-Jul-2022 Pramod Araceli Generic Substitution Allowed (8 sources) Start: 08-20-2022 End: 08-20-2022 75 mg, Oral, EVERY 12 HOURS, First dose (after last modification) on Tue08/20/22 at 0900, Until Discontinued Slow release product. Do not crush. Extended release can be cut in half. Start: 08-17-2022 End: 08-17-2022 10 mL, Intravenous, ONCE, 1 dose, On Tue08/17/22 at 1430 FOR ECHO PROCEDURE ONLY Dilute 1.5 mL of Definity with 8.5 mL of 0.9% sodium chloride and draw up in a 10 mL syringe. Administration during procedure as directed by physician. Recorded MAR dose is cumulative amount given during procedure. Echo Procedure Start: 08-14-2022 End: 08-20-2022 inject 5 [IU] by subcutaneous injection every twenty-four hours [Order 1 Start] Name: insulin glargine-yfgn (SEMGLEE) injection 5 Units Signed Summary: 5 Units, Subcutaneous, EVERY 24 HOURS, First dose (after last modification) on 08/14/22 at 2100, Until Discontinued Do not mix in syringe with other insulins. [Order 1 End] [Order 2 Start] Name: NOTIFY PHYSICIAN, OTHER Signed Summary: Routine, CONTINUOUS, Starting on 08/14/22 at 0901, Until Specified Who to Notify: Pattern Gater Call Pattern Gater if a.m. Glucose is less than 80 and dose reduction not already ordered. [Order 2 End] [Order 3 Start] Name: BLOOD GLUCOSE (POC DEVICE) Signed Summary: Routine, 4 TIMES DAILY BEFORE MEALS & AT BEDTIME, First occurrence on 08/14/22 at 1030 If any blood glucose is greater than 300mg/dl, then repeat BLOOD GLUCOSE (POC DEVICE) in 2 hours. If the initial blood glucose was greater than 300mg/dl and if second blood glucose is greater than 200mg/dl, then notify warehouse analyst. [Order 3 End] [Order 4 Start] Name: BLOOD GLUCOSE (POC DEVICE) Signed Summary: Routine, DIRECTED, Starting on 08/14/22 at 0900, Until Specified Symptoms of Hypoglycemia: sweating, shaking, fatigue, rapid pulse, slow thinking & dizziness. Notify physician w/results. Symptoms of Hyperglycemia: excessive thirst, blurred vision, excessive urination & tiredness. Notify physician w/results. If patient NPO, obtain Blood Glucose (POC) prior to administration of all insulin products. [Order 4 End] Start: 08-13-2022 End: 08-14-2022 inject 10 [IU] by subcutaneous injection every twenty-four hours Start: 08-12-2022 End: 08-13-2022 0-15 mg/hr (0-15 mL/hr), Int ravenous, CONTINUOUS, Starting on Judy 08/12/22 at 0930, Until Tue08/13/22 at 1034 Initiate at 5 mg/hr. Titrate by 2.5 mg/hr every 15 minutes to maintain HR between 80 and 110 BPM. Titrate to the lowest rate to achieve target goal. Notify prescriber for inability to achieve goals at maximum dose of ordered range, SBP<100mmHg or MAP<65mmHg, or change in clinical condition. Start: 08-12-2022 End: 08-17-2022 take 75 mg by mouth every eight hours 75 mg, Oral, EVERY 8 HOURS, First dose (after last modification) on Judy 08/12/22 at 0730, Until Discontinued Start: 08-09-2022 End: 08-20-2022 take 325 mg by mouth every four hours as needed [Order 1 Start] Name: acetaminophen (TYLENOL) tablet 325 mg Signed Summary: 325 mg, Oral, EVERY 4 HOURS NEEDED, Starting on Tue08/09/22 at 0925, Until Tue08/20/22 at 1544, Mild Pain, Moderate Pain Maximum dose of acetaminophen is 4000 mg from all sources in 24 hours. [Order 1 End] [Order 2 Start] Name: acetaminophen (TYLENOL) tablet 325 mg Signed Summary: 325 mg, Per NG tube, EVERY 4 HOURS NEEDED, Starting on Tue08/09/22 at 0925, Until Tue08/20/22 at 1544, Mild Pain, Moderate Pain Maximum dose of acetaminophen is 4000 mg from all sources in 24 hours. [Order 2 End] [Order 3 Start] Name: acetaminophen (TYLENOL) tablet 650 mg Signed Summary: 650 mg, Oral, EVERY 4 HOURS NEEDED, Starting on Tue08/09/22 at 0925, Until Tue08/20/22 at 1544, Severe Pain, Oral temp > 99.5 Maximum dose of acetaminophen is 4000 mg from all sources in 24 hours. [Order 3 End] [Order 4 Start] Name: acetaminophen (TYLENOL) tablet 650 mg Signed Summary: 650 mg, Per NG tube, EVERY 4 HOURS NEEDED, Starting on Tue08/09/22 at 0925, Until Tue08/20/22 at 1544, Severe Pain, Oral temp > 99.5 Maximum dose of acetaminophen is 4000 mg from all sources in 24 hours. [Order 4 End] Start: 08-09-2022 End: 08-20-2022 [Order 1 Start] Name: polyet hylene glycol (MIRALAX) packet 17 g Signed Summary: 17 g, Oral, DAILY NEEDED, Starting on Tue08/09/22 at 0925, Until Tue08/20/22 at 1544, Constipation If No Bowel Movement in 48 Hours [Order 1 End] [Order 2 Start] Name: polyethylene glycol (MIRALAX) packet 17 g Signed Summary: 17 g, Per NG tube, DAILY NEEDED, Starting on Tue08/09/22 at 0925, Until Tue08/20/22 at 1544, Constipation If No Bowel Movement in 48 Hours [Order 2 End] (1 source) Start: 08-17-2022 End: 08-17-2022 take 1 dose by mouth once 50 mL, Oral, ONCE, 1 dose, On Tue08/17/22 at 1015, Radiology Procedure (1 source) Start: 08-09-2022 End: 08-09-2022 1-171 mL, Intravenous, ONCE, 1 dose, On 08/09/22 [address] Procedure Problems Active Problems Problem Classification Problem Date Documented Da te Episodic/Chronic Acute and unspecified renal failure (20 sources) Injury of kidney; Translations: [Acute kidney failure, unspecified] Onset: 2 Episodic Acute cerebrovascular disease (20 sources) Cerebrovascular accident; Translations: [Cerebral infarction, unspecified] Onset: 2 Chronic Acute posthemorrhagic anemia (1 source) Acute posthemorrhagic anemia; Translations: [Acute posthemorrhagic anemia] Onset: 2 Episodic Anxiety disorders (17 sources) Anxiety; Translations: [Anxiety state, unspecified] Onset: 2 07-14-2022 Chronic Bacterial infection; unspecified site (20 sources) Bacteremia due to Staphylococcus aureus; Translations: [Bacteremia] 06-23-2023 Episodic Blindness and vision defects (2 sources) Bilateral myopia of eyes; Translations: [Myopia, bilateral] 11-10-2023 Episodic Cardiac dysrhythmias (20 sources) Atrial fibrillation; Translations: [Unspecified atrial fibrillation] Onset: 2 Chronic Cardiac dysrhythmias (2 sources) Cardiac dysrhythmias 07-05-2022 Comment on above: [facility]/ [facility] F/U- HEART FAILURE, AFIB Chronic kidney disease (20 sources) Chronic kidney disease stage 3A ; Translations: [Chronic kidney disease, Stage III (moderate)] Onset: 2 05-30-2023 Chronic Chronic kidney disease (2 sources) Chronic kidney disease; Translations: [Chronic kidney disease, stage 3a] Onset: 3 Coagulation and hemorrhagic disorders (3 sources) Hematopoietic system finding; 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] Onset: 2 07-17-2022 Chronic Congestive heart failure; nonhypertensive (20 sources) Congestive heart failure; Translations: [Congestive heart failure, unspecified] Onset: 2 07-09-2022 Chronic Comment on above: CHF Congestive heart failure; nonhypertensive (3 sources) Congestive heart failure; nonhypertensive 07-17-2022 Coronary atherosclerosis and other heart disease (1 source) Atherosclerotic heart disease of [place] coronary artery without angina pectoris; Translations: [Atherosclerotic heart disease of [place] coronary artery without angina pectoris] Onset: 3 Chronic Deficiency and other anemia (2 sources) Anemia in chronic kidney disease; Translations: [Anemia in chronic kidney disease] Onset: 2 Chronic Deficiency and other anemia (3 sources) Deficiency and other anemia 07-21-2022 Diabetes mellitus with complications (20 sources) Diabetes mellitus; Translations: [Type 2 diabetes mellitus with hyperglycemia] Onset: 2 Chronic Diabetes mellitus with complications (1 source) Diabetes mellitus with complications 07-19-2022 Diabetes mellitus without complication (20 sources) Type 2 diabetes mellitus; Translations: [Diabetes mellitus without mention of complication, type II or unspecified type, not stated as uncontrolled] Onset: 3 Chronic Diabetes mellitus without complication (1 source) Diabetes mellitus without complication 07-21-2022 Diseases of mouth; excluding dental (5 sources) Xerostomia; Translations: [Dry mouth, unspecified] 08-01-2023 Episodic Diseases of white blood cells (20 sources) Leukocytosis; Translations: [Leukocytosis, unspecified] Onset: 3 05-30-2023 Chronic Disorders of lipid metabolism (20 sources) Hyperlipidemia, unspecified; Translations: [Hyperlipidemia] Onset: 3 11-04-2022 Chronic E Codes: Fall (15 sources) Fall; Translations: [Unspecified fall, initial encounter] 09-17-2022 Episodic Essential hypertension (20 sources) Hypertensive disorder; Translations: [Unspecified essential hypertension] Onset: 3 Chronic Fluid and electrolyte disorders (20 sources) Dehydration; Translations: [Dehydration] Onset: 2 Episodic Gastritis and duodenitis (10 sources) Helicobacter pylori-associated gastritis; Translations: [Atrophic gastritis, without mention of hemorrhage] Onset: 2 05-30-2023 Episodic Gastrointestinal hemorrhage (4 sources) Gastrointestinal hemorrhage; Translations: [Hemorrhage of gastrointestinal tract, unspecified] 07-23-2022 Episodic Genitourinary symptoms and ill-defined conditions (16 sources) Abnormal urinalysis; Translations: [Unspecified abnormal findings in urine] 06-21-2023 Episodic Gout and other crystal arthropathies (6 sources) Podagra; Translations: [Gout, unspecified] Onset: 3 02-14-2023 Chronic Headache; including migraine (20 sources) Migraine; Translations: [Migraine, unspecified, without mention of intractable migraine without mention of status migrainosus] Onset: 2 05-17-2022 Chronic Heart valve disorders (1 source) Nonrheumatic aortic (valve) stenosis; Translations: [Nonrheumatic aortic (valve) stenosis] Onset: 3 Chronic Hypertension with complications and secondary hypertension (20 sources) Hypertensive urgency ; Translations: [Hypertensive urgency] Onset: 2 07-17-2022 Chronic Infective arthritis and osteomyelitis (except that caused by tuberculosis or sexually transmitted disease) (20 sources) Infective arthritis; Translations: [Pyogenic arthritis, unspecified] 06-21-2023 Episodic Intestinal infection (1 source) Other specified bacterial intestinal infections; Translations: [Other specified bacterial intestinal infections] Onset: 2 Episodic Malaise and fatigue (20 sources) Fatigue; Translations: [Other fatigue] 11-04-2022 Episodic Menopausal disorders (20 sources) Menopausal symptom; Translations: [Symptomatic menopausal or female climacteric states] Onset: 2 06-02-2012 Chronic Mood disorders (20 sources) Mood disorder; 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] Onset: 3 02-14-2023 Chronic Mood disorders (3 sources) Mood disorders; Translations: [Depression, unspecified] Onset: 2 Mycoses (20 sources) Pityriasis versicolor; Translations: [Pityriasis versicolor] Onset: 2 07-18-2022 Episodic Nonspecific chest pain (20 sources) Atypical chest pain; Translations: [Other chest pain] 07-14-2022 Episodic Osteoarthritis (20 sources) Osteoarthritis of left knee joint; Translations: [Unilateral primary osteoarthritis, left knee] 06-16-2023 Chronic Other aftercare (1 source) Long-term current use of insulin; Translations: [Long-term (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 of insulin] 07-25-2022 Episodic Other aftercare (5 sources) USP (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 of insulin; Translations: [USP (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 of insulin] Onset: 3 Episodic Other aftercare (11 sources) Long-term current use of anticoagulant; Translations: [USP (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 of anticoagulants] 11-20-2022 Episodic Other and ill-defined heart disease (1 source) Combined systolic and diastolic dysfunction; Translations: [Other ill-defined heart diseases] Chronic Other and ill-defined heart disease (2 sources) Other ill-defined heart diseases; Translations: [Other ill-defined heart diseases] Onset: 2 Chronic Other and unspecified benign neoplasm (1 source) Polyp of colon; Translations: [Polyp of colon] Onset: 2 Episodic Other circulatory disease (1 source) Personal history of transient ischemic attack (TIA), and cerebral infarction without residual deficits; Translations: [Personal history of transient ischemic attack (TIA), and cerebral infarction without residual deficits] Onset: 3 Episodic Other disorders of stomach and duodenum (1 source) Disease of stomach and duodenum, unspecified; Translations: [Disease of stomach and duodenum, unspecified] Onset: 2 Episodic Other ear and sense organ disorders (20 sources) Bilateral tinnitus; Translations: [Tinnitus, unspecified] Onset: 3 05-30-2023 Episodic Other endocrine disorders (7 sources) Hypoglycemia; Translations: [Hypoglycemia, unspecified] 07-11-2023 Chronic Other endocrine disorders (7 sources) Hypoglycemia, unspecified; Translations: [Hypoglycemia, unspecified] 07-25-2023 Chronic Other eye disorders (2 sources) Vitreous floaters of left eye; Translations: [Other vitreous opacities, left eye] Chronic Other eye disorders (1 source) Other vitreous opacities, unspecified eye; Translations: [Floaters in visual field, unspecified laterality] Onset: 3 Chronic Other eye disorders (2 sources) Vortex keratopathy of bilateral eyes; Translations: [Unspecified corneal deposit, bilateral] Episodic Other eye disorders (1 source) Ptosis of eyelid; Translations: [Unspecified ptosis of bilateral eyelids] 04-28-2023 Episodic Other lower respiratory disease (10 sources) Snoring; Translations: [Other respiratory abnormalities] Episodic Other lower respiratory disease (2 sources) Shortness of breath; Translations: [Shortness of breath] Onset: 3 Episodic Other lower respiratory disease (1 source) Cough; Translations: [Acute cough] 05-30-2023 Episodic Other nervous system disorders (2 sources) Metabolic encephalopathy; Translations: [Metabolic encephalopathy] Onset: 2 Chronic Other nervous system disorders (2 sources) Other chronic pain; Translations: [Other chronic pain] Onset: 3 Chronic Other nervous system disorders (4 sources) Neuropathy; Translations: [Polyneuropathy, unspecified] 08-18-2023 Chronic Other nervous system disorders (4 sources) Polyneuropathy, unspecified; Translations: [Mononeuritis of unspecified site] 08-18-2023 Chronic Other nervous system disorders (4 sources) Impairment of balance; Translations: [Other abnormalities of gait and mobility] 08-18-2023 Episodic Other nervous system disorders (4 sources) Other abnormalities of gait and mobility; Translations: [Other symptoms involving nervous and musculoskeletal systems] 08-18-2023 Episodic Other nervous system disorders (2 sources) Tremor; Translations: [Tremor, unspecified] 10-21-2023 Episodic Other nervous system disorders (2 sources) Tremor, unspecified; Translations: [Abnormal involuntary movements] 10-21-2023 Episodic Other non-traumatic joint disorders (16 sources) Shoulder pain; Translations: [Pain in joint, shoulder region] Onset: 3 02-14-2023 Episodic Other non-traumatic joint disorders (8 sources) Effusion of joint of left knee; Translations: [Effusion, left knee] 06-21-2023 Episodic Other non-traumatic joint disorders (15 sources) Effusion, left knee; Translations: [Effusion of joint, lower leg] 07-05-2023 Episodic Other nutritional; endocrine; and metabolic disorders (20 sources) Body mass index 30+ - obesity; Translations: [Obesity, unspecified] Onset: 3 05-30-2023 Chronic Other nutritional; endocrine; and metabolic disorders (1 source) Hypomagnesemia; Translations: [Hypomagnesemia] Onset: 3 Chronic Other nutritional; endocrine; and metabolic disorders (1 source) Other disorders of plasma-protein metabolism, not elsewhere classified; Translations: [Other disorders of plasma-protein metabolism, not elsewhere classified] Onset: 3 Chronic Other nutritional; endocrine; and metabolic disorders (20 sources) Obesity, unspecified; Translations: [Obesity, unspecified] Onset: 2 05-09-2023 Chronic Other nutritional; endocrine; and metabolic disorders (2 sources) Body mass index (BMI) 35.0-35.9, adult; Translations: [Body mass index [BMI] 35.0-35.9, adult] Onset: 2 Chronic Other nutritional; endocrine; and metabolic disorders (6 sources) Hypomagnesemia; Translations: [Disorders of magnesium metabolism] Chronic Other nutritional; endocrine; and metabolic disorders (9 sources) Obesity; Translations: [Obesity, unspecified] 05-09-2023 Chronic Other nutritional; endocrine; and metabolic disorders (1 source) Body mass index (BMI) 37.0-37.9, adult; Translations: [Body mass index [BMI] 37.0-37.9, adult] Onset: 2 Chronic Other nutritional; endocrine; and metabolic disorders (19 sources) H/O: diabetes mellitus; Translations: [Personal history of other endocrine, nutritional and metabolic disease] 11-16-2021 Episodic Other screening for suspected conditions (not mental disorders or infectious disease) (20 sources) Patient encounter status; Translations: [Other screening mammogram] Onset: 3 07-25-2022 Episodic Other skin disorders (13 sources) Finding of finger; Translations: [Disorder of the skin and subcutaneous tissue, unspecified] 09-25-2022 Episodic Other skin disorders (1 source) Disorder of the skin and subcutaneous tissue, unspecified; Translations: [Unspecified disorder of skin and subcutaneous tissue] Episodic Other skin disorders (1 source) Skin hypopigmented; Translations: [Disorder of pigmentation, unspecified] 05-30-2023 Episodic Other skin disorders (2 sources) Disorder of pigmentation, unspecified; Translations: [Disorder of pigmentation, unspecified] Onset: 3 Episodic Other upper respiratory disease (11 sources) Bleeding from nose; Translations: [Epistaxis] 11-20-2022 Episodic Other upper respiratory disease (11 sources) Perforation of nasal septum; Translations: [Other specified disorders of nose and nasal sinuses] 11-20-2022 Episodic Shelia-; endo-; and myocarditis; cardiomyopathy (except that caused by tuberculosis or sexually transmitted disease) (20 sources) Cardiomyopathy; Translations: [Cardiomyopathy, unspecified] Onset: 2 Chronic Phlebitis; thrombophlebitis and thromboembolism (1 source) Personal history of other venous thrombosis and embolism; Translations: [Personal history of other venous thrombosis and embolism] Onset: 3 Episodic Pneumonia (except that caused by tuberculosis or sexually transmitted disease) (4 sources) Pneumonia (except that caused by tuberculosis or sexually transmitted disease); Translations: [Pneumonia due to coronavirus disease 2018] Onset: 2 07-09-2022 Comment on above: HEALTHCARE-ASSOCIATE D PNEUMONIA J18.9 Residual codes; unclassified (11 sources) Sleep apnea; Translations: [Unspecified sleep apnea] 02-14-2023 Chronic Residual codes; unclassified (1 source) Hypersomnia, unspecified; Translations: [Hypersomnia, unspecified] Onset: 3 Chronic Residual codes; unclassified (12 sources) Obstructive sleep apnea (adult) (pediatric); Translations: [Obstructive sleep apnea (adult)(pediatric)] Onset: 2 07-25-2023 Chronic Residual codes; unclassified (5 sources) Obstructive sleep apnea syndrome; Translations: [Obstructive sleep apnea (adult) (pediatric)] Onset: 3 05-30-2023 Chronic Residual codes; unclassified (4 sources) Sleep apnea, unspecified; Translations: [Sleep apnea, unspecified] Onset: 3 Chronic Residual codes; unclassified (20 sources) Insomnia; Translations: [Insomnia, unspecified] Onset: 3 02-14-2023 Episodic Residual codes; unclassified (16 sources) Reduced libido; Translations: [Decreased libido] Onset: 3 05-30-2023 Episodic Residual codes; unclassified (2 sources) Insomnia, unspecified; Translations: [Insomnia, unspecified] Onset: 3 Episodic Respiratory failure; insufficiency; arrest (adult) (1 source) Respiratory failure; insufficiency; arrest (adult) 07-17-2022 Septicemia (except in labor) (2 sources) Sepsis, unspecified organism; Translations: [Sepsis, unspecified organism] Onset: 2 Episodic Sprains and strains (9 sources) Sprain of knee; Translations: [Sprain of unspecified site of left knee, initial encounter] 06-09-2023 Episodic Superficial injury; contusion (20 sources) Contusion of foot; Translations: [Contusion of left foot, initial encounter] 11-16-2021 Episodic Unclassified (2 sources) Primary hypertension 07-10-2022 Unclassified (2 sources) Type 2 myocardial infarction 07-16-2022 Unclassified (2 sources) 3 MONTHS 05-03-2022 Comment on above: 3 MONTHS Unclassified (1 source) Other back symptoms 07-09-2022 Unclassified (2 sources) DIVINA (acute kidney injury) 07-09-2022 Unclassified (1 source) Chest pressure 07-14-2022 Unclassified (2 sources) Body mass index (BMI) of 35.0 to 35.9 in adult 07-29-2022 Unclassified (2 sources) Body mass index [BMI] 36.0-36.9, adult 07-30-2022 Unclassified (2 sources) Body mass index (BMI) of 38.0 to 38.9 in adult 08-01-2022 Unclassified (1 source) [facility] 08-02-2022 Comment on above: [facility] Unclassified (1 source) Coagulation disorder 07-17-2022 Unclassified (1 source) Yeast infection 07-18-2022 Unclassified (1 source) PNA (pneumonia) 07-22-2022 Unclassified (1 source) GI bleeding 07-23-2022 Unclassified (1 source) USP current use of insulin 07-25-2022 Unclassified (1 source) Antiplatelet or antithrombotic long-term use 07-25-2022 Unclassified (1 source) PERSONAL HISTORY OF COVID-19; Translations: [PERSONAL HISTORY OF COVID-19] Onset: 3 Unclassified (2 sources) Acidosis, unspecified; Translations: [Acidosis, unspecified] Onset: 2 Unclassified (2 sources) Elevation of levels of liver transaminase levels; Translations: [Elevation of levels of liver transaminase levels] Onset: 2 Unclassified (1 source) Acute cough; Translations: [Acute cough] Onset: 3 Unclassified (1 source) Non-ischemic myocardial injury (non-traumatic); Translations: [Non-ischemic myocardial injury (non-traumatic)] Onset: 2 Urinary tract infections (14 sources) Urinary tract infectious disease; Translations: [Urinary tract infection, site not specified] 07-13-2023 Episodic Viral infection (20 sources) Disease caused by 2019-nCoV; Translations: [COVID-19] Episodic Viral infection (4 sources) Disease caused by 2019-nCoV; Translations: [COVID-19] Onset: 2 07-17-2022 Past or Other Problems Problem Classification Problem Date Documented Da te Episodic/Chronic Allergic reactions (3 sources) Allergy status to penicillin; Translations: [Allergy status to other antibiotic agents status] Onset: 2 Episodic Deficiency and other anemia (10 sources) Anemia; Translations: [Anemia, unspecified] Onset: 2 07-25-2022 Episodic Diabetes mellitus without complication (6 sources) Impaired glucose tolerance; Translations: [Impaired glucose tolerance (oral)] Onset: 2 06-02-2012 Episodic E Codes: Unspecified (2 sources) Nosocomial condition; Translations: [Nosocomial condition] Onset: 2 Episodic Other aftercare (3 sources) 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; Translations: [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] Onset: 2 Episodic Other aftercare (1 source) termite treater (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 of oral hypoglycemic drugs; Translations: [termite treater (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 of oral hypoglycemic drugs] Onset: 2 Episodic Other connective tissue disease (2 sources) Rhabdomyolysis; Translations: [Rhabdomyolysis] Onset: 2 Episodic Other connective tissue disease (1 source) Pain in right forearm; Translations: [Pain in right forearm] Onset: 5 Episodic Other diseases of kidney and ureters (3 sources) Kidney disease; Translations: [Disorder of kidney and ureter, unspecified] Onset: 2 Episodic Other gastrointestinal disorders (1 source) Constipation, unspecified; Translations: [Constipation, unspecified] Onset: 2 Episodic Other injuries and conditions due to external causes (1 source) History of falling; Translations: [History of falling] Onset: 2 Episodic Other non-traumatic joint disorders (3 sources) Pain in right shoulder; Translations: [Right shoulder pain] Onset: 3 Episodic Other non-traumatic joint disorders (2 sources) Pain in left shoulder; Translations: [Pain in left shoulder] Onset: 3 Episodic Other non-traumatic joint disorders (1 source) Pain in right wrist; Translations: [Pain in right wrist] Onset: 5 Episodic Pneumonia (except that caused by tuberculosis or sexually transmitted disease) (2 sources) Infective pneumonia; Translations: [Pneumonia, organism unspecified] Onset: 2 07-09-2022 Episodic Residual codes; unclassified (1 source) Hypothermia, not associated with low environmental temperature; Translations: [Hypothermia, not associated w low environmental temperature] Onset: 2 Episodic Residual codes; unclassified (2 sources) Asymptomatic menopausal state; Translations: [Asymptomatic menopausal state] Onset: 4 Episodic Sexually transmitted infections (not HIV or hepatitis) (7 sources) Human papillomavirus deoxyribonucleic acid test positive, high risk on cervical specimen; Translations: [Cervical high risk human papillomavirus (HPV) DNA test positive] Onset: 2 06-28-2012 Episodic Shock (2 sources) Cardiogenic shock; Translations: [Cardiogenic shock] Onset: 2 Episodic Unclassified (2 sources) Patient encounter status; Translations: [Breast cancer screening by mammogram] Unclassified (1 source) SOB, CHEST PAIN 07-09-2022 Comment on above: SOB, CHEST PAIN Unclassified (15 sources) Contusion of left shoulder, initial encounter 09-17-2022 Unclassified (2 sources) Onset: 3 02-14-2023 Unclassified (1 source) Acute cough; Translations: [Acute cough] Onset: 3 NEGATED: Highlighted row has not occurred!Residual codes; unclassified (5 sources) Disease Episodic Results Test Name Value Interpretation Reference Range Facility Internal Medicine Office Vis [facility] 01-31-2025 Internal Medicine Office Visit [facility] [address] [place] [address] [place] [address] OFFICE VISIT Date of Service: 01/31/25 MR#: [id number] Acct: [id number] Name: CAMILLE GARDINER Rep #: [id number] : 1960 Provider: Dr. 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 Accompanied by: Self Is patient in pain?: No Allergies ampicillin Allergy (Intermediate, Verified 01/31/25 15:20) Hives levofloxacin (From Levaquin) Allergy (Verified 01/31/25 15:20) Other Penicillins Allergy (Verified 01/31/25 15:20) Hives lisinopril Adverse Reaction (Unknown, Verified 01/31/25 15:20) Cough Medications ???Medication ???Instructions ???Recorded ???Confirmed ???Type magnesium 250 mg tablet 500 mg PO DAILY supplement 3 01/31/25 History Handicap Placard #1 ea 10/21/23 01/31/25 Rx cyanocobalamin (vitamin B-12) 1,000 mcg PO DAILY 10/21/23 History 1,000 mcg capsule Oral Appliance #1 ea 11/21/23 01/31/25 Rx atorvastatin 40 mg tablet 40 mg PO QHS cholesterol #90 tabs 12/09/23 01/31/25 Rx bupropion HCl 150 mg 24 hr tablet, 150 mg PO QAM #30 tabs 05/18/24 01/31/25 Rx extended release ferrous sulfate 325 mg (65 mg 325 mg PO DAILY@1200 Supplement 01/31/25 Rx iron) tablet (FeroSul) #90 tabs pen needle, diabetic 32 gauge x #100 ea 06/04/24 01/31/25 Rx /32 (BD Ultra-Fine Tanja Pen Needle) acetaminophen 500 mg tablet 1,000 mg PO Q8 PRN Pain 06/11/24 0 01/31/25 History metoprolol succinate 50 mg 50 mg PO DAILY #90 TABLETS 4 01/31/25 Rx tablet,extended release 24 hr nystatin 100,000 unit/gram topical 1 applic topical TID #60 grams 1 10/03/23 01/31/25 Rx powder duloxetine 60 mg capsule,delayed 60 mg PO QHS mental health #90 cap s 09/10/24 01/31/25 Rx release losartan 50 mg tablet 50 mg PO QDAY #90 tabs 10/24/24 Rx apixaban 5 mg tablet (Eliquis) 5 mg PO .COMPLEX Blood thinner 01/31/25 Rx #180 tabs flash glucose sensor (FreeStyle #6 ea 11/29/24 01/31/25 Rx Paulette 2 Sensor kit) cholecalciferol (vitamin D3) 50 50 mcg PO DAILY #90 caps 12/07/24 01/31/25 Rx mcg (2,000 unit) capsule liraglutide 0.6 mg/0.1 mL (18 mg/3 0.6 mg (0.1 mL) subcut QDAY #6 m L 12/11/24 01/31/25 Rx mL) subcutaneous pen injector (Victoza 2-Bird) amiodarone 200 mg tablet 200 mg PO DAILY #40 tabs 01/14/25 01/31/25 Rx insulin glargine 100 unit/mL (3 20 unit (0.2 mL) subcut QAM #6 mL 01/31/25 Rx mL) subcutaneous pen (Basaglar KwikPen U-100 Insulin) insulin lispro 100 unit/mL 12 unit (0.12 mL) subcut TID 01/31 Rx subcutaneous pen (Humalog KwikPen diabetes #15 mL (U-100) Insulin) trazodone 50 mg tablet 50 mg PO QHS PRN insomnia #60 tabs 01/31/25 01/31/25 Rx Have you fallen in the past year?: No [facility] Medical History (Updated 01/31/25 @ 21:[address] Tiara Jaimes MD) Insomnia Right forearm pain Right wrist pain Health care maintenance Cellulitis of groin, left Intertriginous dermatitis associated with moisture Anxiety and depression Tremor Chronic renal failure, stage 3b Diabetes mellitus type 2 in obese Stage 3b chronic kidney disease (CKD) Effusion, left knee Osteoarthritis of left knee CVA (cerebral vascular accident) Finger lesion Chest pain CHF (congestive heart failure) Cardiomyopathy Obesity HLD (hyperlipidemia) Atrial fibrillation, new onset Menopausal and female climacteric states Migraine headache Atypical chest pain Hypertensive urgency Hypertension Type II diabetes mellitus Surgical History History of knee surgery History of foot surgery Family History Mother Diabetes Psoriatic arthritis Rheumatoid arthritis Father COPD (chronic obstructive pulmonary disease) With concurrent tobacco use history. Myocardial infarction Heart disease Hypertension Social History adopted: No household members: spouse housing: house number of children: 0 current occupational status: employed current occupation: works at [employer] pets and animals: Yes (kittens, dogs, horses) Smoking Status: Never smoker alcohol intake: never substance use type: does not use caffeine: Yes (occasionally) Type: carbonated beverages and coffee HPI HPI Chief Complaint: f/u chronic conditions Details: CAMILLE GARDINER, is a 64 F who presents to the office today for follow-up of her chronic medical conditions. No acute concerns at this time. History of hypertension, blood pressure today at (more content not included)... Normal [facility] Endocrinology Visit Reporton 11-19-2024 Endocrinology Visit Report [facility] [address] [place] [address] OFFICE VISIT Date of Service: 11/19/24 MR#: [id number] Acct: [id number] Name: CAMILLE GARDINER Rep #: [id number] : 1960 Provider: VIRA wisdom Age/Sex: 64/F [place] [facility] [place]: Signed Intake Vital Signs 08/03/24 09:26 10/24/24 09:33 11/19/24 10:24 Height 5 ft 3 in 5 ft 3 in 5 ft 3 in Weight: 229 lb 231 lb BMI 40.5 40.9 BP 166/84 H 193/83 H Blood Pressure Location Rt brachial Rt brachial Position Sitting Sitting Respiration 16 Pulse 55 L 56 L Pulse Source Monitor Monitor Temp 96.3 F L Temp Source Temporal Pulse Oximetry (%) 97 96 Oxygen Delivery Method room air room air Intake Visit Reasons: 6 M FU R/S 10/25 Chief Complaint: f/u diabetes Is patient in pain?: Yes (Right Arm Pain from fall) Pain scale (1-10): 6 Allergies ampicillin Allergy (Intermediate, Verified 11/19/24 10:27) Hives levofloxacin (From Levaquin) Allergy (Verified 11/19/24 10:27) Other Penicillins Allergy (Verified 11/19/24 10:27) Hives lisinopril Adverse Reaction (Unknown, Verified 11/19/24 10:27) Cough Medications ???Medication ???Instructions ???Recorded ???Confirmed ???Type magnesium 250 mg tablet 500 mg PO DAILY supplement 3 11/19/24 History Handicap Placard #1 ea 10/21/23 10/24/24 Rx cyanocobalamin (vitamin B-12) 1,000 mcg PO DAILY 10/21/23 History 1,000 mcg capsule Oral Appliance #1 ea 11/21/23 10/24/24 Rx atorvastatin 40 mg tablet 40 mg PO QHS cholesterol #90 tabs 12/09/23 11/19/24 Rx cholecalciferol (vitamin D3) 50 50 mcg PO DAILY #90 caps 05/17/24 11/19/24 Rx mcg (2,000 unit) capsule bupropion HCl 150 mg 24 hr tablet, 150 mg PO QAM #30 tabs 05/18/24 11/19/24 Rx extended release ferrous sulfate 325 mg (65 mg 325 mg PO DAILY@1200 Supplement 11/19/24 Rx iron) tablet (FeroSul) #90 tabs flash glucose sensor (FreeStyle #6 ea 06/04/24 10/24/24 Rx Paulette 2 Sensor kit) pen needle, diabetic 32 gauge x #100 ea 06/04/24 10/24/24 Rx 5/32 (BD Ultra-Fine Tanja Pen Needle) acetaminophen 500 mg tablet 1,000 mg PO Q8 PRN Pain 06/11/24 0 11/19/24 History metoprolol succinate 50 mg 50 mg PO DAILY #90 TABLETS 4 11/19/24 Rx tablet,extended release 24 hr nystatin 100,000 unit/gram topical 1 applic topical TID #60 grams 1 10/03/23 11/19/24 Rx powder duloxetine 60 mg capsule,delayed 60 mg PO QHS mental health #90 cap s 09/10/24 11/19/24 Rx release losartan 50 mg tablet 50 mg PO QDAY #90 tabs 10/24/24 Rx insulin lispro 100 unit/mL 12 unit (0.12 mL) subcut TID 10/3011/19/24 Rx subcutaneous pen (Humalog KwikPen diabetes #15 mL (U-100) Insulin) insulin glargine 100 unit/mL (3 20 unit (0.2 mL) subcut QAM #6 mL 10/31/24 11/19/24 Rx mL) subcutaneous pen (Basaglar KwikPen U-100 Insulin) amiodarone 200 mg tablet 200 mg PO DAILY BP #40 tabs 11/19/24 Rx apixaban 5 mg tablet (Eliquis) 5 mg PO BID Blood thinner #180 tab s 11/13/24 11/19/24 Rx tirzepatide 2.5 mg/0.5 mL 2.5 mg (0.5 mL) subcut QWEEK #2 mL 11/19/24 11/19/24 Rx subcutaneous pen injector (Mounjaro) Have you fallen in the past year?: Yes [facility] Medical History (Updated 11/19/24 @ 14:47 by Kait Finn, YOLANDA-C) Right forearm pain Right wrist pain Health care maintenance Cellulitis of groin, left Intertriginous dermatitis associated with moisture Anxiety and depression Tremor Chronic renal failure, stage 3b Diabetes mellitus type 2 in obese Stage 3b chronic kidney disease (CKD) Effusion, left knee Osteoarthritis of left knee CVA (cerebral vascular accident) Finger lesion Chest pain CHF (congestive heart failure) Cardiomyopathy Obesity HLD (hyperlipidemia) Atrial fibrillation, new onset Menopausal and female climacteric states Migraine headache Atypical chest pain Hypertensive urgency Hypertension Type II diabetes mellitus Surgical History History of knee surgery History of foot surgery Family History Mother Diabetes Psoriatic arthritis Rheumatoid arthritis Father COPD (chronic obstructive pulmonary disease) With concurrent tobacco use history. Myocardial infarction Heart disease Hypertension Social History adopted: No household members: spouse housing: house number of children: 0 current occupational status: employed current occupation: works at [employer] pets and animals: Yes (kittens, dogs, horses) Smoking Status: Never smoker alcohol intake: never substance use type: does not use caffeine: Yes (occasionally) Type: ca (more content not included)... Normal [facility] CBC W/Diff, Automatedon 10-13-2024 Absolute Lymph 1.80 X10 3/uL Normal 0.83-4.51 [facility] Comment on above: Performed By: #### L 100.0100, L500.4050, L500.4100, L502.0250 #### [facility] [address] [place], [address] Absolute Neut 5.2 X10 3/uL Normal 2.0-7.7 [facility] Comment on above: Performed By: #### L 100.0100, L500.4050, L500.4100, L502.0250 #### [facility] [address] [place], [address] Basophils/100 WBC (Bld) 0.6 % Normal 0-1 [facility] Comment on above: Performed By: #### L 100.0100, L500.4050, L500.4100, L502.0250 #### [facility] [address] [place], [address] Eosinophils/100 WBC (Bld) 1.8 % Normal 0-5 [facility] Comment on above: Performed By: #### L 100.0100, L500.4050, L500.4100, L502.0250 #### [facility] [address] [place], [address] Erythrocyte distribution width (RBC) [Ratio] 12.5 % Normal 11.6-14.6 [facility] Comment on above: Performed By: #### L 100.0100, L500.4050, L500.4100, L502.0250 #### [facility] [address] [place], [address] Hematocrit (Bld) [Volume fraction] 42.2 % Normal 37-47 [facility] Comment on above: Performed By: #### L 100.0100, L500.4050, L500.4100, L502.0250 #### [facility] [address] [place], [address] Hemoglobin (Bld) [Mass/Vol] 13.1 g/dL Normal 12.0-15.0 [facility] Comment on above: Performed By: #### L 100.0100, L500.4050, L500.4100, L502.0250 #### [facility] [address] [place], [address] IG% 0.500 Normal 0.0-0.9 [facility] Comment on above: Result Comment: IG% - Immature Granulocytes (promyelocytes, myelocytes and metamyelocytes) > 1% indicates that a LEFT SHIFT is Present. Performed By: #### L 100.0100, L500.4050, L500.4100, L502.0250 #### [facility] [address] [place], [address] Lymphocytes/100 WBC (Bld) 22.8 % Normal 19-41 [facility] Comment on above: Performed By: #### L 100.0100, L500.4050, L500.4100, L502.0250 #### [facility] [address] [place], [address] MCH (RBC) [Entitic mass] 29.8 pg Normal 27.0-32.0 [facility] Comment on above: Performed By: #### L 100.0100, L500.4050, L500.4100, L502.0250 #### [facility] [address] [place], [address] MCHC (RBC) [Mass/Vol] 31.0 g/dL Low 32-36 [facility] Comment on above: Performed By: #### L 100.0100, L500.4050, L500.4100, L502.0250 #### [facility] [address] [place], [address] MCV (RBC) [Entitic vol] 96.1 fL Normal 81-99 [facility] Comment on above: Performed By: #### L 100.0100, L500.4050, L500.4100, L502.0250 #### [facility] [address] [place], [address] Monocytes/100 WBC (Bld) 8.6 % Normal 0-10 [facility] Comment on above: Performed By: #### L 100.0100, L500.4050, L500.4100, L502.0250 #### [facility] [address] [place], [address] Neutrophils/100 WBC (Bld) 65.7 % Normal 47-70 [facility] Comment on above: Performed By: #### L 100.0100, L500.4050, L500.4100, L502.0250 #### [facility] [address] [place], [address] Nucleated RBC (Bld) [#/Vol] 0 10*3/uL Normal 0-5 [facility] Comment on above: Performed By: #### L 100.0100, L500.4050, L500.4100, L502.0250 #### [facility] [address] [place], [address] Platelet mean volume (Bld) [Entitic vol] 10.1 fL Normal 6.2-12.0 [facility] Comment on above: Performed By: #### L 100.0100, L500.4050, L500.4100, L502.0250 #### [facility] [address] [place], [address] Platelets (Bld) [#/Vol] 249 10*3/uL Normal 150-450 [facility] Comment on above: Performed By: #### L 100.0100, L500.4050, L500.4100, L502.0250 #### [facility] [address] [place], [address] RBC (Bld) [#/Vol] 4.39 10*6/uL Normal 4.2-5.4 [facility] Comment on above: Performed By: #### L 100.0100, L500.4050, L500.4100, L502.0250 #### [facility] [address] [place], [address] RDW SD 44.2 fl High 35.1-43.9 [facility] Comment on above: Performed By: #### L 100.0100, L500.4050, L500.4100, L502.0250 #### [facility] [address] [place], [address] WBC (Bld) [#/Vol] 7.9 10*3/uL Normal 4.4-11.0 [facility] Comment on above: Performed By: #### L 100.0100, L500.4050, L500.4100, L502.0250 #### [facility] [address] [place], [address] Comprehensive Metabolic Prof [facility] 10-24-2024 Albumin [Mass/Vol] 3.5 g/dL Normal 3.2-5.0 [facility] Comment on above: Performed By: #### L 100.0100, L500.4050, L500.4100, L502.0250 #### [facility] [address] [place], [address] Albumin/Globulin [Mass ratio] 0.9 {ratio} Normal 0.9-2.4 [facility] Comment on above: Performed By: #### L 100.0100, L500.4050, L500.4100, L502.0250 #### [facility] [address] [place], [address] ALK P 111 U/L Normal 45-117 [facility] Comment on above: Performed By: #### L 100.0100, L500.4050, L500.4100, L502.0250 #### [facility] [address] [place], [address] ALT [Catalytic activity/Vol] 29 U/L Normal 13-56 [facility] Comment on above: Performed By: #### L 100.0100, L500.4050, L500.4100, L502.0250 #### [facility] [address] [place], [address] AST [Catalytic activity/Vol] 22 U/L Normal 15-37 [facility] Comment on above: Performed By: #### L 100.0100, L500.4050, L500.4100, L502.0250 #### [facility] [address] [place], [address] Bilirubin [Mass/Vol] 0.50 mg/dL Normal 0.20-1.00 [facility] Comment on above: Result Comment: For patients on eltrombopag therapy, use of Dimension [place] TBIL is not recommended. Performed By: #### L 100.0100, L500.4050, L500.4100, L502.0250 #### [facility] [address] [place], [address] BUN/CRE 17.4 RATIO Normal 10-20 [facility] Comment on above: Performed By: #### L 100.0100, L500.4050, L500.4100, L502.0250 #### [facility] [address] [place], [address] CA,Total 9.2 mg/dL Normal 8.5-10.1 [facility] Comment on above: Performed By: #### L 100.0100, L500.4050, L500.4100, L502.0250 #### [facility] [address] [place], [address] Chloride [Moles/Vol] 102 mmol/L Normal 98-107 [facility] Comment on above: Performed By: #### L 100.0100, L500.4050, L500.4100, L502.0250 #### [facility] [address] [place], [address] CO2 [Moles/Vol] 27.0 mmol/L Normal 21.0-32.0 [facility] Comment on above: Performed By: #### L 100.0100, L500.4050, L500.4100, L502.0250 #### [facility] [address] [place], [address] Creatinine [Mass/Vol] 1.61 mg/dL High 0.55-1.02 [facility] Comment on above: Result Comment: The validity of the calculated GFR GFRAA in patients over 70 years has not been determined. Clinical correlation is essential. Performed By: #### L 100.0100, L500.4050, L500.4100, L502.0250 #### [facility] [address] [place], [address] EST GFR - AA 42 mL/min Low >60 [facility] Comment on above: Result Comment: Afri can Haitian GFR Calc Performed By: #### L 100.0100, L500.4050, L500.4100, L502.0250 #### [facility] [address] [place], [address] GAP 7 Normal 5-15 [facility] Comment on above: Performed By: #### L 100.0100, L500.4050, L500.4100, L502.0250 #### [facility] [address] [place], [address] GFR/1.73 sq M.predicted among non-blacks MDRD (S/P/Bld) [Vol rate/Area] 34 mL/min/{1.73_m2} Low >60 [facility] Comment on above: Result Comment: Non- GFR Calc Performed By: #### L 100.0100, L500.4050, L500.4100, L502.0250 #### [facility] [address] [place], [address] Globulin (S) [Mass/Vol] 4.1 g/dL Normal 2.2-4.2 [facility] Comment on above: Performed By: #### L 100.0100, L500.4050, L500.4100, L502.0250 #### [facility] [address] [place], [address] Glucose [Mass/Vol] 202 mg/dL High 74-106 [facility] Comment on above: Result Comment: Gluc ose result greater than or equal to 200 mg/dL suggests DIABETES MELLITUS per A.D.A. criteria. Performed By: #### L 100.0100, L500.4050, L500.4100, L502.0250 #### [facility] [address] [place], [address] Potassium [Moles/Vol] 4.6 mmol/L Normal 3.5-5.1 [facility] Comment on above: Performed By: #### L 100.0100, L500.4050, L500.4100, L502.0250 #### [facility] [address] [place], [address] Sodium [Moles/Vol] 136 mmol/L Normal 136-145 [facility] Comment on above: Performed By: #### L 100.0100, L500.4050, L500.4100, L502.0250 #### [facility] [address] [place], [address] T PROT 7.6 g/dL Normal 6.4-8.2 [facility] Comment on above: Performed By: #### L 100.0100, L500.4050, L500.4100, L502.0250 #### [facility] [address] [place], [address] Urea nitrogen [Mass/Vol] 28 mg/dL High 7-18 [facility] Comment on above: Performed By: #### L 100.0100, L500.4050, L500.4100, L502.0250 #### [facility] [address] [place], [address] Internal Medicine Office Vis itofunmi 10-24-2024 Internal Medicine Office Visit [facility] [address] [place], [place] [address] OFFICE VISIT Date of Service: 10/24/24 MR#: [id number] Acct: [id number] Name: CAMILLE GARDINER Rep #: [id number] : 1960 Provider: Dr. Tiara thomas MD Age/Sex: 64/F Location: [facility] [facility] Status: Signed Intake Vital Signs 08/03/24 09:26 10/24/24 09:33 Height 5 ft 3 in 5 ft 3 in Weight: 229 lb BMI 40.5 BP 166/84 H Blood Pressure Location Rt brachial Position Sitting Respiration 16 Pulse 55 L Pulse Source Monitor Temp 96.3 F L Temp Source Temporal Pulse Oximetry (%) 97 Oxygen Delivery Method room air Intake Visit Reasons: MED FU Chief Complaint: Follow-up chronic conditions Is patient in pain?: Yes (RIGHT WRIST; FALL ON TUESDAY) Pain scale (1-10): 7 Allergies ampicillin Allergy (Intermediate, Verified 10/24/24 09:29) Hives levofloxacin (From Levaquin) Allergy (Verified 10/24/24 09:29) Other Penicillins Allergy (Verified 10/24/24 09:29) Hives lisinopril Adverse Reaction (Unknown, Verified 10/24/24 09:29) Cough Medications ???Medication ???Instructions ???Recorded ???Confirmed ???Type amiodarone 200 mg tablet 200 mg PO DAILY BP 05/09/23 History magnesium 250 mg tablet 500 mg PO DAILY supplement 3 10/24/24 History Handicap Placard #1 ea 10/21/23 10/24/24 Rx cyanocobalamin (vitamin B-12) 1,000 mcg PO DAILY 10/21/23 History 1,000 mcg capsule Oral Appliance #1 ea 11/21/23 10/24/24 Rx apixaban 5 mg tablet (Eliquis) 5 mg PO BID Blood thinner #180 tab s 11/21/23 10/24/24 Rx atorvastatin 40 mg tablet 40 mg PO QHS cholesterol #90 tabs 12/09/23 10/24/24 Rx cholecalciferol (vitamin D3) 50 50 mcg PO DAILY #90 caps 05/17/24 10/24/24 Rx mcg (2,000 unit) capsule bupropion HCl 150 mg 24 hr tablet, 150 mg PO QAM #30 tabs 05/18/24 10/24/24 Rx extended release ferrous sulfate 325 mg (65 mg 325 mg PO DAILY@1200 Supplement 10/24/24 Rx iron) tablet (FeroSul) #90 tabs flash glucose sensor (FreeStyle #6 ea 06/04/24 10/24/24 Rx Paulette 2 Sensor kit) pen needle, diabetic 32 gauge x #100 ea 06/04/24 10/24/24 Rx 5/32 (BD Ultra-Fine Tanja Pen Needle) trazodone 50 mg tablet 50 mg PO QHS PRN insomnia #60 tabs 06/05/24 10/24/24 Rx acetaminophen 500 mg tablet 1,000 mg PO Q8 PRN Pain 06/11/24 0 10/24/24 History metoprolol succinate 50 mg 50 mg PO DAILY #90 TABLETS 4 10/24/24 Rx tablet,extended release 24 hr nystatin 100,000 unit/gram topical 1 applic topical TID #60 grams 1 10/03/23 10/24/24 Rx powder duloxetine 60 mg capsule,delayed 60 mg PO QHS mental health #90 cap s 09/10/24 10/24/24 Rx release insulin lispro 100 unit/mL 12 unit (0.12 mL) subcut TID 09/2010/24/24 Rx subcutaneous pen (Humalog [employer] diabetes #10.8 mL (U-100) Insulin) losartan 25 mg tablet 25 mg PO QDAY #90 tabs 10/24/24 Rx Have you fallen in the past year?: Yes (FELL LAST SUN ON ICE; R WRIST PAIN) [facility] Medical History (Updated 10/24/24 @ 12:[address] Tiara Jaimes MD) Right forearm pain Right wrist pain Health care maintenance Cellulitis of groin, left Intertriginous dermatitis associated with moisture Anxiety and depression Tremor Chronic renal failure, stage 3b Diabetes mellitus type 2 in obese Stage 3b chronic kidney disease (CKD) Effusion, left knee Osteoarthritis of left knee CVA (cerebral vascular accident) Finger lesion Chest pain CHF (congestive heart failure) Cardiomyopathy Obesity HLD (hyperlipidemia) Atrial fibrillation, new onset Menopausal and female climacteric states Migraine headache Atypical chest pain Hypertensive urgency Hypertension Type II diabetes mellitus Surgical History History of knee surgery History of foot surgery Family History Mother Diabetes Psoriatic arthritis Rheumatoid arthritis Father COPD (chronic obstructive pulmonary disease) With concurrent tobacco use history. Myocardial infarction Heart disease Hypertension Social History adopted: No household members: spouse housing: house number of children: 0 current occupational status: employed current occupation: works at [employer] pets and animals: Yes (kittens, dogs, horses) Smoking Status: Never smoker alcohol intake: never substance use type: does not use caffeine: Yes (occasionally) Type: carbonated beverages and coffee HPI HPI Chief Complaint: Follow-up chronic conditions Details: CAMILLE GARDINER, is a 64 F who presents to the office today for follow-up of her chronic conditions. Also has some concerns. She reports right upper extremity pain. Fell, slipped on i (more content not included)... Normal [facility] Lipid Profileon 10-24-2024 Cholesterol [Mass/Vol] 153 mg/dL Normal 200 [facility] Comment on above: Result Comment: <200 mg/dL Desirable 200-240 mg/dL Borderline >240 mg/dL High Risk Performed By: #### L 100.0100, L500.4050, L500.4100, L502.0250 #### [facility] [address] [place], [address] Cholesterol in HDL [Mass/Vol] 72 mg/dL Normal [facility] Comment on above: Result Comment: The drugs N-Acetylcysteine and Metamizole may falsely depress this assay. Reference Range HDL <40 mg/dL Low HDL Cholesterol HDL >or= 60 mg/dL High HDL Cholesterol Performed By: #### L 100.0100, L500.4050, L500.4100, L502.0250 #### [facility] [address] [place], [address] Cholesterol in LDL [Mass/Vol] 61 mg/dL Normal 0-130 [facility] Comment on above: Performed By: #### L 100.0100, L500.4050, L500.4100, L502.0250 #### [facility] [address] [place], [address] Cholesterol in VLDL [Mass/Vol] 20 mg/dL Normal 5-40 [facility] Comment on above: Performed By: #### L 100.0100, L500.4050, L500.4100, L502.0250 #### [facility] [address] [place], [address] Triglyceride [Mass/Vol] 102 mg/dL Normal [facility] Comment on above: Result Comment: The drugs N-Acetylcysteine and Metamizole may falsely depress this assay. Serum Triglycerides Reference Interval Normal <150 mg/dL Borderline high 150 - 199 mg/dL High 200 - 499 mg/dL Very High > or = 500 mg/dL Performed By: #### L 100.0100, L500.4050, L500.4100, L502.0250 #### [facility] [address] [place], [address] Microalb:Creat Ratio,Random URon 10-24-2024 Creatinine [Mass/Vol] 77.00 mg/dL Normal NO RAN GE EST. [facility] Comment on above: Performed By: #### L 100.0100, L500.4050, L500.4100, L502.0250 #### [facility] [address] [place], [address] MALB:CRE 1040.3 mg/g CRE High <30 mg/g CRE [facility] Comment on above: Performed By: #### L 100.0100, L500.4050, L500.4100, L502.0250 #### [facility] [address] [place], [address] MICROALBUMIN,UR 801.0 mg/L Normal NO RANGE EST. [facility] Comment on above: Performed By: #### L 100.0100, L500.4050, L500.4100, L502.0250 #### [facility] [address] [place], [address] Comprehensive Metabolic Prof ilon 08-03-2024 Albumin [Mass/Vol] 3.5 g/dL Normal 3.2-5.0 [facility] Comment on above: Performed By: #### L 500.4050 #### [facility] [address] [place], [address] Albumin/Globulin [Mass ratio] 1.0 {ratio} Normal 0.9-2.4 [facility] Comment on above: Performed By: #### L 500.4050 #### [facility] [address] [place], [address] ALK P 114 U/L Normal 45-117 [facility] Comment on above: Performed By: #### L 500.4050 #### [facility] [address] [place], [address] ALT [Catalytic activity/Vol] 22 U/L Normal 13-56 [facility] Comment on above: Performed By: #### L 500.4050 #### [facility] [address] [place], [address] AST [Catalytic activity/Vol] 16 U/L Normal 15-37 [facility] Comment on above: Performed By: #### L 500.4050 #### [facility] [address] [place], [address] Bilirubin [Mass/Vol] 0.50 mg/dL Normal 0.20-1.00 [facility] Comment on above: Result Comment: For patients on eltrombopag therapy, use of Dimension [place] TBIL is not recommended. Performed By: #### L 500.4050 #### [facility] [address] [place], [address] BUN/CRE 17.0 RATIO Normal 10-20 [facility] Comment on above: Performed By: #### L 500.4050 #### [facility] [address] [place], [address] CA,Total 8.8 mg/dL Normal 8.5-10.1 [facility] Comment on above: Performed By: #### L 500.4050 #### [facility] [address] [place], [address] Chloride [Moles/Vol] 103 mmol/L Normal 98-107 [facility] Comment on above: Performed By: #### L 500.4050 #### [facility] [address] [place], [address] CO2 [Moles/Vol] 31.0 mmol/L Normal 21.0-32.0 [facility] Comment on above: Performed By: #### L 500.4050 #### [facility] [address] [place], [address] Creatinine [Mass/Vol] 1.65 mg/dL High 0.55-1.02 [facility] Comment on above: Result Comment: The validity of the calculated GFR GFRAA in patients over 70 years has not been determined. Clinical correlation is essential. Performed By: #### L 500.4050 #### [facility] [address] [place], [address] EST GFR - AA 40 mL/min Low >60 [facility] Comment on above: Result Comment: Afri can Haitian GFR Calc Performed By: #### L 500.4050 #### [facility] [address] [place], [address] GAP 3 Low 5-15 [facility] Comment on above: Performed By: #### L 500.4050 #### [facility] [address] [place], [address] GFR/1.73 sq M.predicted among non-blacks MDRD (S/P/Bld) [Vol rate/Area] 33 mL/min/{1.73_m2} Low >60 [facility] Comment on above: Result Comment: Non- GFR Calc Performed By: #### L 500.4050 #### [facility] [address] [place], [address] Globulin (S) [Mass/Vol] 3.5 g/dL Normal 2.2-4.2 [facility] Comment on above: Performed By: #### L 500.4050 #### [facility] [address] [place], [address] Glucose [Mass/Vol] 245 mg/dL High 74-106 [facility] Comment on above: Result Comment: Gluc ose result greater than or equal to 200 mg/dL suggests DIABETES MELLITUS per A.D.A. criteria. Performed By: #### L 500.4050 #### [facility] [address] [place], [address] Potassium [Moles/Vol] 4.8 mmol/L Normal 3.5-5.1 [facility] Comment on above: Performed By: #### L 500.4050 #### [facility] [address] [place], [address] Sodium [Moles/Vol] 137 mmol/L Normal 136-145 [facility] Comment on above: Performed By: #### L 500.4050 #### [facility] [address] [place], [place], [address] T PROT 7.0 g/dL Normal 6.4-8.2 [facility] Comment on above: Performed By: #### L 500.4050 #### [facility] [address] [place], [place], [address] Urea nitrogen [Mass/Vol] 28 mg/dL High 7-18 [facility] Comment on above: Performed By: #### L 500.4050 #### [facility] [address] [place], [address] Internal Medicine Office Vis itofunmi 08-03-2024 Internal Medicine Office Visit [facility] [address] [place] [address] [place] [address] OFFICE VISIT Date of Service: 08/03/24 MR#: [id number] Acct: [id number] Name: CAMILLE GARDINER Rep #: [id number] : 1960 Provider: Dr. 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 Accompanied by: Self Is patient in pain?: No Allergies ampicillin Allergy (Intermediate, Verified 08/03/24 09:22) Hives levofloxacin (From Levaquin) Allergy (Verified 08/03/24 09:22) Other Penicillins Allergy (Verified 08/03/24 09:22) Hives lisinopril Adverse Reaction (Unknown, Verified 08/03/24 09:22) Cough Medications ???Medication ???Instructions ???Recorded ???Confirmed ???Type amiodarone 200 mg tablet 200 mg PO DAILY BP 05/09/23 08/03/24 History magnesium 250 mg tablet 500 mg PO DAILY supplement 05/09/23 08/03/24 History baclofen 10 mg tablet 5 mg (1/2 x 10 mg) PO TID 30 days 09/07/23 08/03/24 Rx #45 tabs Handicap Placard #1 ea 10/21/23 08/03/24 Rx cyanocobalamin (vitamin B-12) 1,000 mcg PO DAILY 10/21/23 08/03/24 History 1,000 mcg capsule duloxetine 60 mg capsule,delayed 60 mg PO QHS mental health #90 caps 10/21/23 08/03/24 Rx release insulin lispro 100 unit/mL 12 unit subcut DAILY diabetes 10/21/23 08/03/24 History subcutaneous pen (Humalog KwikPen (U-100) Insulin) Oral Appliance #1 ea 11/21/23 08/03/24 Rx apixaban 5 mg tablet (Eliquis) 5 mg PO BID Blood thinner #180 tabs 11/21/23 08/03/24 Rx atorvastatin 40 mg tablet 40 mg PO QHS cholesterol #90 tabs 12/09/23 08/03/24 Rx cephalexin 500 mg tablet 500 mg PO TID #21 tabs 02/23/24 08/03/24 Rx cholecalciferol (vitamin D3) 50 50 mcg PO DAILY #90 caps 05/17/24 08/03/24 Rx mcg (2,000 unit) capsule bupropion HCl 150 mg 24 hr tablet, 150 mg PO QAM #30 tabs 05/18/24 08/03/24 Rx extended release ferrous sulfate 325 mg (65 mg 325 mg PO DAILY@1200 Supplement 05/18/24 08/03/24 Rx iron) tablet (FeroSul) #90 tabs insulin glargine 100 unit/mL (3 20 unit (0.2 mL) subcut QAM #18 mL 05/29/24 08/03/24 Rx mL) subcutaneous pen (Basaglar KwikPen U-100 Insulin) dapagliflozin propanediol 10 mg 10 mg PO DAILY #90 TABLETS 06/04/24 08/03/24 Rx tablet (Farxiga) flash glucose sensor (FreeStyle #6 ea 06/04/24 08/03/24 Rx Paulette 2 Sensor kit) pen needle, diabetic 32 gauge x #100 ea 06/04/24 08/03/24 Rx 5/32 (BD Ultra-Fine Tanja Pen Needle) trazodone 50 mg tablet 50 mg PO QHS PRN insomnia #60 tabs 06/05/24 08/03/24 Rx acetaminophen 500 mg tablet 1,000 mg PO Q8 PRN Pain 06/11/24 08/03/24 History losartan 25 mg tablet 25 mg PO QDAY #30 tabs 06/11/24 08/03/24 Rx metoprolol succinate 50 mg 50 mg PO DAILY #90 TABLETS 06/11/24 08/03/24 Rx tablet,extended release 24 hr semaglutide 0.25 mg or 0.5 mg (2 0.5 mg (0.736 mL) subcut QWEEK #3 06/11/24 08/03/24 Rx mg/3 mL) subcutaneous pen injector mL (Ozempic) nystatin 100,000 unit/gram topical 1 applic topical TID #60 grams 08/03/24 08/03/24 Rx powder [facility] Medical History (Updated 08/03/24 @ 09:[address] Tiara Jaimes MD) Health care maintenance Cellulitis of groin, left Intertriginous dermatitis associated with moisture Anxiety and depression Tremor Chronic renal failure, stage 3b Diabetes mellitus type 2 in obese Stage 3b chronic kidney disease (CKD) Effusion, left knee Osteoarthritis of left knee CVA (cerebral vascular accident) Finger lesion Chest pain CHF (congestive heart failure) Cardiomyopathy Obesity HLD (hyperlipidemia) Atrial fibrillation, new onset Menopausal and female climacteric states Migraine headache Atypical chest pain Hypertensive urgency Hypertension Type II diabetes mellitus Surgical History History of knee surgery History of foot surgery Family History Mother Diabetes Psoriatic arthritis Rheumatoid arthritis Father COPD (chronic obstructive pulmonary disease) With concurrent tobacco use history. 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 Normal [facility] Endocrinology Visit Reporton 06-11-2024 Endocrinology Visit Report [facility] [address] [place] [address] OFFICE VISIT Date of Service: 06/11/24 MR#: [id number] Acct: [id number] Name: CAMILLE GARDINER Rep #: [id number] : 1960 Provider: VIRA wisdom Age/Sex: 63/F [facility] Status: Signed Intake Vital Signs 02/20/24 13:07 02/23/24 13:17 06/11/24 14:09 Height 5 ft 3 in 5 ft 3 in 5 ft 3 in Weight: 218 lb 212 lb 213 lb 6 oz BMI 38.6 37.5 37.8 BP 145/84 H 124/84 H 135/61 H Blood Pressure Location Rt brachial Lt brachial Lt brachial Position Sitting Sitting Sitting Respiration 14 Pulse 55 L 66 57 L Pulse Source Monitor Monitor Temp 96.3 F L 98.4 F Temp Source Temporal Temporal Pulse Oximetry (%) 98 97 94 Oxygen Delivery Method room air room air Intake Visit Reasons: 3 M FU Chief Complaint: f/u diabetes Is patient in pain?: Yes (lower back) Pain scale (1-10): 8 Allergies ampicillin Allergy (Intermediate, Verified 02/23/24 13:11) Hives levofloxacin (From Levaquin) Allergy (Verified 02/23/24 13:11) Other Penicillins Allergy (Verified 02/23/24 13:11) Hives lisinopril Adverse Reaction (Unknown, Verified 02/23/24 13:11) Cough Medications ???Medication ???Instructions ???Recorded ???Confirmed ???Type amiodarone 200 mg tablet 200 mg PO DAILY BP 05/09/23 06/11/24 History magnesium 250 mg tablet 500 mg PO DAILY supplement 05/09/23 06/11/24 History baclofen 10 mg tablet 5 mg (1/2 x 10 mg) PO TID 30 days 09/07/23 06/11/24 Rx #45 tabs Handicap Placard #1 ea 10/21/23 02/23/24 Rx cyanocobalamin (vitamin B-12) 1,000 mcg PO DAILY 10/21/23 06/11/24 History 1,000 mcg capsule duloxetine 60 mg capsule,delayed 60 mg PO QHS mental health #90 caps 10/21/23 06/11/24 Rx release insulin lispro 100 unit/mL 12 unit subcut DAILY diabetes 10/21/23 02/23/24 History subcutaneous pen (Humalog KwikPen (U-100) Insulin) Oral Appliance #1 ea 11/21/23 02/23/24 Rx apixaban 5 mg tablet (Eliquis) 5 mg PO BID Blood thinner #180 tabs 11/21/23 06/11/24 Rx atorvastatin 40 mg tablet 40 mg PO QHS cholesterol #90 tabs 12/09/23 06/11/24 Rx cephalexin 500 mg tablet 500 mg PO TID #21 tabs 02/23/24 06/11/24 Rx fluconazole 150 mg tablet 150 mg PO DAILY #5 tabs 02/23/24 02/23/24 Rx cholecalciferol (vitamin D3) 50 50 mcg PO DAILY #90 caps 05/17/24 06/11/24 Rx mcg (2,000 unit) capsule bupropion HCl 150 mg 24 hr tablet, 150 mg PO QAM #30 tabs 05/18/24 06/11/24 Rx extended release ferrous sulfate 325 mg (65 mg 325 mg PO DAILY@1200 Supplement 05/18/24 06/11/24 Rx iron) tablet (FeroSul) #90 tabs insulin glargine 100 unit/mL (3 20 unit (0.2 mL) subcut QAM #18 mL 05/29/24 06/11/24 Rx mL) subcutaneous pen (Basaglar KwikPen U-100 Insulin) dapagliflozin propanediol 10 mg 10 mg PO DAILY #90 TABLETS 06/04/24 06/11/24 Rx tablet (Farxiga) flash glucose sensor (FreeStyle #6 ea 06/04/24 06/11/24 Rx Paulette 2 Sensor kit) pen needle, diabetic 32 gauge x #100 ea 06/04/24 Rx 5/32 (BD Ultra-Fine Tanja Pen Needle) trazodone 50 mg tablet 50 mg PO QHS PRN insomnia #60 tabs 06/05/24 06/11/24 Rx acetaminophen 500 mg tablet 1,000 mg PO Q8 PRN Pain 06/11/24 History losartan 25 mg tablet 25 mg PO QDAY #30 tabs 06/11/24 06/11/24 Rx metoprolol succinate 50 mg 50 mg PO DAILY #90 TABLETS 06/11/24 06/11/24 Rx tablet,extended release 24 hr semaglutide 0.25 mg or 0.5 mg (2 0.5 mg (0.736 mL) subcut QWEEK #3 06/11/24 06/11/24 Rx mg/3 mL) subcutaneous pen injector mL (Ozempic) [facility] Medical History (Updated 06/11/24 @ 16:05 by Kait Finn, YOLANDA-C) Cellulitis of groin, left Intertriginous dermatitis associated with moisture Anxiety and depression Tremor Chronic renal failure, stage 3b Diabetes mellitus type 2 in obese Stage 3b chronic kidney disease (CKD) Effusion, left knee Osteoarthritis of left knee CVA (cerebral vascular accident) Finger lesion Chest pain CHF (congestive heart failure) Cardiomyopathy Obesity HLD (hyperlipidemia) Atrial fibrillation, new onset Menopausal and female climacteric states Migraine headache Atypical chest pain Hypertensive urgency Hypertension Type II diabetes mellitus Surgical History History of knee surgery History of foot surgery Family History Mother Diabetes Psoriatic arthritis Rheumatoid arthritis Father COPD (chronic obstructive pulmonary disease) With concurrent tobacco use history. Myocardial infarction Heart disease Hypertension Social History adopted: No household members: spouse housing: house number of children: 0 current o (more content not included)... Normal [facility] Basic Metabolic Profile (BMP )on 02-23-2024 BUN/CRE 15.0 RATIO Normal 10-20 [facility] Comment on above: Performed By: #### L 500.2500 #### [facility] [address] [place], [address] CA,Total 9.8 mg/dL Normal 8.5-10.1 [facility] Comment on above: Performed By: #### L 500.2500 #### [facility] [address] [place], [address] Chloride [Moles/Vol] 99 mmol/L Normal 98-107 [facility] Comment on above: Performed By: #### L 500.2500 #### [facility] [address] [place], [address] CO2 [Moles/Vol] 32.0 mmol/L Normal 21.0-32.0 [facility] Comment on above: Performed By: #### L 500.2500 #### [facility] [address] [place], [address] Creatinine [Mass/Vol] 1.93 mg/dL High 0.55-1.02 [facility] Comment on above: Result Comment: The validity of the calculated GFR GFRAA in patients over 70 years has not been determined. Clinical correlation is essential. Performed By: #### L 500.2500 #### [facility] [address] [place], [address] EST GFR - AA 34 mL/min Low >60 [facility] Comment on above: Result Comment: Afri can Haitian GFR Calc Performed By: #### L 500.2500 #### [facility] [address] [place], [address] GAP 7 Normal 5-15 [facility] Comment on above: Performed By: #### L 500.2500 #### [facility] [address] [place], [address] GFR/1.73 sq M.predicted among non-blacks MDRD (S/P/Bld) [Vol rate/Area] 28 mL/min/{1.73_m2} Low >60 [facility] Comment on above: Result Comment: Non- GFR Calc Performed By: #### L 500.2500 #### [facility] [address] [place], [address] Glucose [Mass/Vol] 194 mg/dL High 74-106 [facility] Comment on above: Result Comment: Fast ing Glucose result greater than or equal to 126 mg/dL suggests DIABETES MELLITUS per A.D.A. criteria. Performed By: #### L 500.2500 #### [facility] [address] [place], [address] Potassium [Moles/Vol] 5.1 mmol/L Normal 3.5-5.1 [facility] Comment on above: Performed By: #### L 500.2500 #### [facility] [address] [place], [address] Sodium [Moles/Vol] 138 mmol/L Normal 136-145 [facility] Comment on above: Performed By: #### L 500.2500 #### [facility] [address] [place], [address] Urea nitrogen [Mass/Vol] 29 mg/dL High 7-18 [facility] Comment on above: Performed By: #### L 500.2500 #### [facility] [address] [place], [address] Internal Medicine Office Vis iton 02-23-2024 Internal Medicine Office Visit [facility] [address] [place], [place] [address] OFFICE VISIT Date of Service: 02/23/24 MR#: [id number] Acct: [id number] Name: CAMILLE GARDINER Rep #: [id number] : 1960 Provider: Dr. Tiara thomas MD Age/Sex: 63/F Location: [facility] [place] Status: Signed Intake Vital Signs 01/19/24 12:44 06/10/24 13:07 02/23/24 13:17 Height 5 ft 3 in 5 ft 3 in 5 ft 3 in Weight: 218 lb 212 lb BMI 38.6 37.5 BP 145/84 H 124/84 H Blood Pressure Location Rt brachial Lt brachial Position Sitting Sitting Respiration 14 Pulse 55 L 66 Pulse Source Monitor Monitor Temp 96.3 F L 98.4 F Temp Source Temporal Temporal Pulse Oximetry (%) 98 97 Oxygen Delivery Method room air room air Intake Visit Reasons: 3 MONTH FOLLOW UP Chief Complaint: Follow-up chronic conditions. 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 Is patient in pain?: No Allergies ampicillin Allergy (Intermediate, Verified 02/23/24 13:11) Hives levofloxacin (From Levaquin) Allergy (Verified 02/23/24 13:11) Other Penicillins Allergy (Verified 02/23/24 13:11) Hives lisinopril Adverse Reaction (Unknown, Verified 02/23/24 13:11) Cough Medications ???Medication ???Instructions ???Recorded ???Confirmed ???Type dapagliflozin propanediol 10 mg 10 mg PO DAILY Diabetes #90 tabs 02/09/23 02/23/24 Rx tablet (Farxiga) amiodarone 200 mg tablet 200 mg PO DAILY BP 05/09/23 02/23/24 History magnesium 250 mg tablet 500 mg PO DAILY supplement 05/09/23 02/23/24 History acetaminophen 500 mg tablet 1,000 mg (2 x 500 mg) PO Q8 Pain 07/05/23 02/23/24 Rx #0 tabs tramadol 50 mg tablet 50 mg PO Q6H PRN Pain Score 1-10 7 07/22/23 02/23/24 Rx days #28 tabs furosemide 40 mg tablet 40 mg PO Q OTHER DAY Fluid 08/18/23 02/23/24 History retention FreeStyle Paulette 2 Sensor (flash #6 ea 08/19/23 02/23/24 Rx glucose sensor) baclofen 10 mg tablet 5 mg (1/2 x 10 mg) PO TID 30 days 09/07/23 02/23/24 Rx #45 tabs gabapentin 100 mg capsule 100 mg PO TIDCM 30 days #90 caps 09/07/23 02/23/24 Rx Handicap Placard #1 ea 10/21/23 02/23/24 Rx cyanocobalamin (vitamin B-12) 1,000 mcg PO DAILY 10/21/23 02/23/24 History 1,000 mcg capsule duloxetine 60 mg capsule,delayed 60 mg PO QHS mental health #90 caps 10/21/23 02/23/24 Rx release insulin lispro 100 unit/mL 12 unit subcut DAILY diabetes 10/21/23 02/23/24 History subcutaneous pen (Humalog KwikPen (U-100) Insulin) metoprolol succinate 50 mg 50 mg PO DAILY 10/21/23 02/23/24 History tablet,extended release 24 hr sennosides 8.6 mg-docusate sodium 1 tab-cap PO BID PRN 10/21/23 02/23/24 History 50 mg capsule (Senna Plus) dulaglutide 3 mg/0.5 mL 3 mg (0.5 mL) subcut QWEEK #2 mL 10/24/23 02/23/24 Rx subcutaneous pen injector (Trulicity) cholecalciferol (vitamin D3) 50 50 mcg PO DAILY #90 caps 11/14/23 02/23/24 Rx mcg (2,000 unit) capsule Oral Appliance #1 ea 11/21/23 02/23/24 Rx apixaban 5 mg tablet (Eliquis) 5 mg PO BID Blood thinner #180 tabs 11/21/23 02/23/24 Rx atorvastatin 40 mg tablet 40 mg PO QHS cholesterol #90 tabs 12/09/23 02/23/24 Rx trazodone 50 mg tablet 50 mg PO QHS PRN insomnia #60 tabs 12/26/23 02/23/24 Rx ferrous sulfate 325 mg (65 mg 325 mg PO DAILY@1200 Supplement 01/23/24 02/23/24 Rx iron) tablet (FeroSul) #90 tabs insulin glargine 100 unit/mL (3 20 unit (0.2 mL) subcut QHS 01/30/24 02/23/24 Rx mL) subcutaneous pen (Lantus diabetes #18 mL Solostar U-100 Insulin) pen needle, diabetic 32 gauge x #100 ea 02/20/24 02/23/24 Rx 5/32 (BD Ultra-Fine Tanja Pen Needle) bupropion HCl 150 mg 24 hr tablet, 150 mg PO QAM #30 tabs 02/23/24 02/23/24 Rx extended release cephalexin 500 mg tablet 500 mg PO TID #21 tabs 02/23/24 02/23/24 Rx doxycycline monohydrate 100 mg 100 mg PO BID #14 tabs 02/23/24 02/23/24 Rx tablet fluconazole 150 mg tablet 150 mg PO DAILY #5 tabs 02/23/24 02/23/24 Rx PFSH Medical History (Updated 02/23/24 @ 14:[address] Tiara Jaimes MD) Cellulitis of groin, left Intertriginous dermatitis associated with moisture Anxiety and depression Tremor Chronic renal failure, stage 3b Diabetes mellitus type 2 in obese Stage 3b chronic kidney disease (CKD) Effusion, left knee Osteoarthritis of left knee CVA (cerebral vascular accident) Finger lesion Chest pain CHF (congestive heart failure) Cardiomyopathy Obesity HLD (hyperlipidemia) Atrial fibrillation, new onset Menopausal and female climacteric states Migraine headache Atypical chest pain Hypertensive urgency Hypertension Type II diabetes mellitus Surgical History History of knee surgery History of foot surgery Family History (more content not included)... Normal [facility] Endocrinology Visit Reporton 02-20-2024 Endocrinology Visit Report [facility] 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 Accompanied by: Self Is patient in pain?: No Allergies ampicillin Allergy (Intermediate, Verified 02/20/24 13:11) Hives levofloxacin (From Levaquin) Allergy (Verified 02/20/24 13:11) Other Penicillins Allergy (Verified 02/20/24 13:11) Hives lisinopril Adverse Reaction (Unknown, Verified 02/20/24 13:11) Cough PFSH Medical History Anxiety and depression Tremor Chronic renal failure, stage 3b Diabetes mellitus type 2 in obese Stage 3b chronic kidney disease (CKD) Effusion, left knee Osteoarthritis of left knee CVA (cerebral vascular accident) Finger lesion Chest pain CHF (congestive heart failure) Cardiomyopathy Obesity HLD (hyperlipidemia) Atrial fibrillation, new onset Menopausal and female climacteric states Migraine headache Atypical chest pain Hypertensive urgency Hypertension Type II diabetes mellitus Surgical History History of knee surgery History of foot surgery Family History Mother Diabetes Psoriatic arthritis Rheumatoid arthritis Father COPD (chronic obstructive pulmonary disease) With concurrent tobacco use history. Myocardial infarction Heart disease Hypertension Social History adopted: No household members: spouse housing: house number of children: 0 current occupational status: employed current occupation: works at [employer] pets and animals: Yes (kittens, dogs, horses) Smoking Status: Never smoker alcohol intake: never substance use type: does not use caffeine: Yes (occasionally) Type: carbonated beverages and coffee HPI HPI Chief Complaint: f/u diabetes Details: CAMILLE GARDINER, is a 63 F who presents to the office today for evaluation and management of diabetes. A1C today is 7.8%, increased from 11/14/23 at 7.6%. GMI is 9.2%. She has gained 7 lbs. She admits that she is off track with her diet. Currently taking Trulicity 3 mg qweek- tolerating well, Farxiga 10 mg once daily, Lantus 14 u once daily, N 10 u at bedtime, and Novolog prn. Historically, she has taken her insulins incorrectly. CGM tracings reviewed- she is having significant elevation nearly every morning at 10 AM, she denies eating/drinking at this time. She is having post meal elevations. She is interested in insulin pump therapy. Labs are up to date and unremarkable. Discussed at previous appointment that she should have screening bone density test. She has not had so yet. Denies any acute concerns. Exam Const General: cooperative, healthy appearing, comfortable and no acute distress Nutritional Appearance: obese Orientation: alert, awake and oriented x3 HENMT Head: normal to inspection Ears: hearing grossly normal bilaterally Nose: external nose normal Face and sinus: normal facial exam Eyes General: appearance normal, both eyes and all related structures Alignment and Position: alignment normal Sclera: sclerae normal Neck Neck: normal visual inspection Carotids: normal carotid upstroke Chest Chest palpation inspection: normal inspection of the chest Resp Effort Inspection: normal respiratory effort, able to speak in complete sentences, symmetric chest movement, normal respiratory pattern, no audible wheezes and no cough Auscultation: Bilateral: Clear to Auscultation Cardio Rate: regular rate Rhythm: regular rhythm Heart Sounds: S1 normal and S2 normal Bruits: no carotid bruits GI Inspection: normal to inspection and obesity Musc Cervical Spine: normal cervical lordosis Thoracic/Lumbar Spine: thoracic and lumbar spine normal to inspection Skin General: no rashes or lesions noted Lesions: no lesions Rashes: no rashes Trauma: no lacerations or abrasions Wounds: no wounds Neuro General: patient alert, patient awake and patient oriented x3 Cognition: normal cognition Speech: speech normal Gait: normal gait Extrem General: (more content not included)... Normal [facility] 10-31-2023 [facility] Telephone (OPHWOO) ----- CAMILLE GARDINER ([id number]) 1960 F [facility] Date Time Provider Department 10/31/23 MARAH BAPTISTE OPHWOO During your visit today, we recorded the following information about you: Allergies As of Date: 10/31/2023 Noted Allergy Reaction AMPICILLIN 08/09/2008 CROMOLYN 02/14/2023 16 - Unknown 14 - Other: See Comments diomax [Other] 08/09/2008 ERYTHROMYCIN 02/14/2023 14 - Other: See Comments LEVAQUIN (LEVOFLOXACIN) 08/09/2008 LISINOPRIL 02/14/2023 3 - Cough OXYCODONE 02/14/2023 16 - Unknown 14 - Other: See Comments PENICILLINS 08/09/2008 PSEUDOEPHEDRINE 03/17/2023 16 - Unknown SULFAMETHOXAZOLE-TRIMETHO PRIM 02/14/2023 14 - Other: See Comments TCN (TETRACYCLINES) 08/09/2008 Date Reviewed: 10/07/2023 Reviewed by: Marah Baptiste OD - Fully Assessed Prescriptions as of 03/02/2024 - TRULICITY 0.75 mg/0.5 mL pen injector INJECT 0.5 ML UNDER THE SKIN EVERY WEEK - TRULICITY 1.5 mg/0.5 mL pen injector INJECT 1.5MG (0.5ML) UNDER THE SKIN EVERY WEEK - insulin glargine (LANTUS) 100 unit/mL injection 5 Units by SUBDERMAL route. - HUMULIN N NPH INSULIN KWIKPEN 100 unit/mL (3 mL) injection pen INJECT 20 UNITS UNDER THE SKIN EVERY MORNING - traMADol (ULTRAM) 50 mg tablet Take 1 tablet by mouth every 12 hours. - traZODone (DESYREL) 100 mg tablet Take 100 mg by mouth at bedtime as needed. - potassium chloride ER (KLOR-CON M10) 10 mEq tablet Take 1 tablet by mouth once daily. - BD INSULIN PEN NEEDLE UF 31 gauge x 5/16 use to inject 1-4 times a day as directed - nystatin (MYCOSTATIN) powder APPLY POWDER TOPICALLY 2 TIMES A DAY TO AFFECTED AREA - FREESTYLE PAULETTE 2 SENSOR kit APPLY 1 PATCH TO UPPER ARM EVERY 2 WEEKS. ALTERNATE APPLICATION SITE AND REMOVE OLD SENSOR. CHECK BLOOD SUGAR UP TO 4 TIMES A DAY - metoprolol succinate ER (TOPROL XL) 100 mg Take 50 mg by mouth once daily. - DULoxetine (CYMBALTA) 60 mg capsule Take 60 mg by mouth twice daily. - dapagliflozin propanediol (FARXIGA) 10 mg tablet Take 10 mg by mouth. - furosemide (LASIX) 40 mg tablet Take 40 mg by mouth once daily. - amiodarone (PACERONE) 200 mg tablet Take 200 mg by mouth once daily. - FEROSUL 325 mg (65 mg iron) tablet Take 1 tablet by mouth once daily. - atorvastatin (LIPITOR) 40 mg tablet Take 40 mg by mouth daily at bedtime. - HUMALOG KWIKPEN INSULIN 100 unit/mL INJECT 2 UNITS SUBCUTANEOUSLY WITH EACH MEAL. ADD 1 UNIT FOR EVERY 50 UNITS GREATER THAN 150 MG/DL. CALL PCP IF BLOOD GLUCOSE IS GREATER CHAMP - liraglutide (VICTOZA) 0.6 mg/ 0.1 ml subcutaneous pen injector Inject subcutaneously. - ELIQUIS 5 mg tab(s) Take 5 mg by mouth twice daily. - torsemide (DEMADEX) 20 mg tablet Take 20 mg by mouth once daily. - potassium chloride in water 10 mEq/100 mL Inject 10 mEq intravenously one time only. - Ca carb-Ca gluc-Mg ox-Mg gluco (CALCIUM MAGNESIUM) 500 mg calcium -250 mg tab Take by mouth. - Cyanocobalamin-Cobamamide (B12) 5,000-100 mcg lozg Take 5,000 mcg by mouth. - metoprolol tartrate, short acting, (LOPRESSOR) 25 mg tablet Take 25 mg by mouth twice daily. - LOSARTAN POTASSIUM (LOSARTAN ORAL) Take by mouth. - TRIAMTERENE-HYDROCHLOROTH IAZIDE 37.5 MG-25 MG CAP Takes 1/2 tablet daily Problem List As Of Date 10/31/2023 Noted Resolved Glucose intolerance (impaired glucose tolerance*06/02/2012 Premenopausal menorrhagia [N92.4] 06/02/2012 Cervical high risk human papillomavirus (HPV) D*06/28/2012 Unspecified essential hypertension [I10] 06/13/2013 Encounter Status:Closed by PATRICIA HAM on 03/02/24 Normal [facility] Absolute lymphocyte countOrd ered By: Tiara Jaimes on 10-21-2023 Lymphocytes Auto (Unsp spec) [#/Vol] 1.93 10*3/uL 0.83-4.51 [facility] Automated lymphocyte count a s percentage of total leukocytesOrdered By: Tiara Jaimes on 10-21-2023 Lymphocytes/100 WBC Auto (Unsp spec) 23.7 % 19-41 [facility] Basophil percentageOrdered B y: Tiara Jaimes on 10-21-2023 Basophils/100 WBC (Bld) 0.6 % 0-1 [facility] Bilirubin [Mass/Vol] 0.30 mg/dL 0.20-1.00 [facility] Comment on above: For patients on eltr ombopag therapy, use of Dimension [place] TBIL is not recommended. Chloride [Moles/Vol] 101 mmol/L 98-107 [facility] Cholesterol [Mass/Vol] 157 mg/dL <200 [facility] Comment on above: <200 mg/dL Desirable 200-240 mg/dL Borderline >240 mg/dL High Risk Eosinophils/100 WBC (Bld) 4.2 % 0-5 [facility] Glucose [Mass/Vol] 162 mg/dL 74-106 [facility] Comment on above: Fasting Glucose resu lt greater than or equal to 126 mg/dL suggests DIABETES MELLITUS per A.D.A. criteria. Hemoglobin (Bld) [Mass/Vol] 13.1 g/dL 12.0-15.0 [facility] Monocytes/100 WBC (Bld) 11.1 % 0-10 [facility] Neutrophils (Bld) [#/Vol] 4.9 10*3/uL 2.0-7.7 [facility] Neutrophils/100 WBC (Bld) 60.2 % 47-70 [facility] Potassium [Moles/Vol] 4.5 mmol/L 3.5-5.1 [facility] Protein [Mass/Vol] 7.4 g/dL 6.4-8.2 [facility] Sodium [Moles/Vol] 136 mmol/L 136-145 [facility] Triglyceride [Mass/Vol] 190 mg/dL <199 [facility] Comment on above: The drugs N-Acetylcy steine and Metamizole may falsely depress this assay.Serum Triglycerides Reference Interval Normal <150 mg/dL Borderline high 150 - 199 mg/dL High 200 - 499 mg/dL Very High > or = 500 mg/dL WBC (Bld) [#/Vol] 8.1 10*3/uL 4.4-11.0 [facility] Determination of erythrocyte mean corpuscular volume (MCV)Ordered By: miroslava Jaimes on 10-21-2023 MCV (RBC) [Entitic vol] 97.5 fL 81-99 [facility] Erythrocyte distribution wid th ratioOrdered By: [facility] on 10-21-2023 Erythrocyte distribution width (RBC) [Ratio] 12.9 % 11.6-14.6 [facility] Erythrocyte distribution wid th standard deviationOrdered By: [facility] on 10-21-2023 Erythrocyte distribution width (RBC) [Entitic vol] 45.9 fL 35.1-43.9 [facility] Hematocrit Auto (Bld) [Volum e fraction]Ordered By: [facility] [place] on 10-21-2023 Hematocrit (Bld) [Volume fraction] 42.4 % 37-47 [facility] Immature granulocytes/100 WB C Auto (Bld)Ordered By: [facility] on 10-21-2023 Immature granulocytes/100 WBC (Bld) 0.200 % 0.0-0.9 [facility] Comment on above: IG% - Immature Granu locytes (promyelocytes, myelocytes and metamyelocytes) > 1% indicates that a LEFT SHIFT is Present. Laboratory - Chemistry and C hemistry - challengeOrdered By: [facility] on 10-21-2023 Albumin/Globulin [Mass ratio] 0.9 {ratio} 0.9-2.4 [facility] ALP [Catalytic activity/Vol] 135 U/L 45-117 [facility] ALT [Catalytic activity/Vol] 28 U/L 13-56 [facility] Cholesterol in HDL [Mass/Vol] 62 mg/dL >40 [facility] Comment on above: The drugs N-Acetylcy steine and Metamizole may falsely depress this assay. Reference Range HDL <40 mg/dL Low HDL Cholesterol HDL >or= 60 mg/dL High HDL Cholesterol Cholesterol in LDL [Mass/Vol] 57 mg/dL 0-130 [facility] CO2 [Moles/Vol] 29.0 mmol/L 21.0-32.0 [facility] Globulin (S) [Mass/Vol] 3.9 g/dL 2.2-4.2 [facility] Urea nitrogen/Creatinine [Mass ratio] 19.0 mg/mg 10-20 [facility] - Hematology and Cell countsOrdered By: Tiara Jaimes on 10-21-2023 MCH (RBC) [Entitic mass] 30.1 pg 27.0-32.0 [facility] MCHC (RBC) [Mass/Vol] 30.9 g/dL 32-36 [facility] Nucleated RBC/100 WBC (Bld) [Ratio] 0 % 0-5 [facility] Platelet mean volume (Bld) [Entitic vol] 10.3 fL 6.2-12.0 [facility] Platelets (Bld) [#/Vol] 236 10*3/uL 150-450 [facility] No Panel InformationOrdered By: Tiara Jaimes on 10-21-2023 Estimated GFR (MDRD) Amer 46 mL/min >60 [facility] Comment on above: GFR Calc Estimated GFR (MDRD) Non-Af Amer 38 mL/min >60 [facility] Comment on above: Non- GFR Calc VLDL Cholesterol 38 mg/dL 5-40 [facility] RBC Auto (Bld) [#/Vol]Ordere d By: Tiara Jaimes on 10-21-2023 RBC (Bld) [#/Vol] 4.35 10*6/uL 4.2-5.4 [facility] Serum or plasma calcium paul urement (mass/volume)Ordered By: Tiara Jaimes on 10-21-2023 Calcium [Mass/Vol] 9.0 mg/dL 8.5-10.1 [facility] Serum or plasma creatinine m easurement (mass/volume)Ordered By: Tiara Jaimes on 10-21-2023 Creatinine [Mass/Vol] 1.47 mg/dL 0.55-1.02 [facility] Comment on above: The validity of the calculated GFR & GFRAA in patients over 70 years has not been determined. Clinical correlation is essential. Serum or plasma thyroid stim ulating hormone (TSH) measurement (units/volume)Ordered By: Tiara Jaimes on 02-09-2024 TSH Qn 1.67 uIU/mL 0.358-3.74 [facility] Serum or plasma urea nitroge n measurement (mass/volume)Ordered By: Tiara Jaimes on 10-21-2023 Urea nitrogen [Mass/Vol] 28 mg/dL 7-18 [facility] Thin prep Papanicolaou smear with manual screeningOrdered By: Tiara Jaimes on 10-21-2023 Thin prep Papanicolaou smear with manual screening 3.5 g/dL 3.2-5.0 [facility] Thin prep Papanicolaou smear with manual screening 21 U/L 15-37 [facility] Thin prep Papanicolaou smear with manual screening 6 5-15 [facility] Thin prep Papanicolaou smear with manual screening 0.96 ng/dL 0.76-1.46 [facility] Whole blood hemoglobin A1c/t otal hemoglobin ratio (mass fraction)Ordered By: Tiara Jaimes on 10-21-2023 HbA1c (Bld) [Mass fraction] 7.6 % 3.8-5.6 [facility] Comment on above: Normal < 5.7 % Predi abetic 5.7 - 6.4 % Diabetic >or= 6.5 % Please note range changes. Absolute lymphocyte countOrd ered By: Nicolasa Izquierdo on 08-01-2023 Lymphocytes Auto (Unsp spec) [#/Vol] 1.96 10*3/uL 0.83-4.51 [facility] Basophil percentageOrdered B y: Nicolasa Izquierdo on 08-01-2023 Basophil percentage 0-5 SEEN /hpf 0-[address] [facility] Basophils/100 WBC (Bld) 0.8 % 0-1 [facility] Chloride [Moles/Vol] 100 mmol/L 98-107 [facility] Eosinophils/100 WBC (Bld) 2.0 % 0-5 [facility] Glucose [Mass/Vol] 203 mg/dL 74-106 [facility] Comment on above: Glucose result great er than or equal to 200 mg/dLsuggests DIABETES MELLITUS per A.D.A. criteria. Neutrophils (Bld) [#/Vol] 6.9 10*3/uL 2.0-7.7 [facility] Neutrophils/100 WBC (Bld) 67.2 % 47-70 [facility] Potassium [Moles/Vol] 5.4 mmol/L 3.5-5.1 [facility] Comment on above: Moderate Hemolysis, Result may be falsely increased. Sodium [Moles/Vol] 137 mmol/L 136-145 [facility] WBC (Bld) [#/Vol] 10.2 10*3/uL 4.4-11.0 [facility] Bilirubin Test strip Ql (U)O rdered By: Nicolasa Izquierdo on 08-01-2023 Bilirubin Ql (U) Negative Negative [facility] Blood erythrocytes count (nu mber/volume)Ordered By: Nicolasa Izquierdo on 08-01-2023 RBC (Bld) [#/Vol] 3.82 10*6/uL 4.2-5.4 [facility] Blood hemoglobin measurement (mass/volume)Ordered By: Nicolasa Izquierdo on 08-01-2023 Hemoglobin (Bld) [Mass/Vol] 11.3 g/dL 12.0-15.0 [facility] Blood lymphocytes/100 leukoc ytesOrdered By: Nicolasa Izquierdo on 08-01-2023 Lymphocytes/100 WBC (Bld) 19.2 % 19-41 [facility] Blood monocytes/100 leukocyt esOrdered By: Nicolasa Izquierdo on 08-01-2023 Monocytes/100 WBC (Bld) 10.3 % 0-10 [facility] Blood platelet mean volumeOr dered By: Nicolasa Izquierdo on 08-01-2023 Platelet mean volume (Bld) [Entitic vol] 9.8 fL 6.2-12.0 [facility] Determination of erythrocyte mean corpuscular volume (MCV)Ordered By: Nicolasa Izquierdo on 08-01-2023 MCV (RBC) [Entitic vol] 97.4 fL 81-99 [facility] Hematocrit Auto (Bld) [Volum e fraction]Ordered By: Nicolasa Izquierdo on 08-01-2023 Hematocrit (Bld) [Volume fraction] 37.2 % 37-47 [facility] Ketones Test strip Ql (U)Ord ered By: Nicolasa Izquierdo on 08-01-2023 Ketones Ql (U) Negative Negative [facility] - Chemistry and C hemistry - challengeOrdered By: Nicolasa Izquierdo on 08-01-2023 CO2 [Moles/Vol] 30.0 mmol/L 21.0-32.0 [facility] Urea nitrogen/Creatinine [Mass ratio] 19.5 mg/mg 10- [facility] - Hematology and Cell countsOrdered By: Nicolasa Izquierdo on 08-01-2023 Erythrocyte distribution width (RBC) [Entitic vol] 45.0 fL 35.1-43.9 [facility] Erythrocyte distribution width (RBC) [Ratio] 12.7 % 11.6-14.6 [facility] Immature granulocytes/100 WBC (Bld) 0.500 % 0.0-0.9 [facility] Comment on above: IG% - Immature Granu locytes (promyelocytes, myelocytes and metamyelocytes) > 1% indicates that a LEFT SHIFT is Present. MCH (RBC) [Entitic mass] 29.6 pg 27.0-32.0 [facility] Nucleated RBC/100 WBC (Bld) [Ratio] 0 % 0-5 [facility] MCHC Auto (RBC) [Mass/Vol]Or dered By: Nicolasa Izquierdo on 08-01-2023 MCHC (RBC) [Mass/Vol] 30.4 g/dL 32-36 [facility] Mucus LM Ql (Urine sed)Order ed By: Nicolasa Izquierdo on 08-01-2023 Mucus Ql (Urine sed) 0 SEEN /hpf [facility] Nitrite Test strip Ql (U)Ord ered By: Nicolasa Izquierdo on 08-01-2023 Nitrite Ql (U) Negative Negative [facility] No Panel InformationOrdered By: Nicolasa Izquierdo on 08-01-2023 Estimated Creatinine Clearance Calc 30.35 ml/min [facility] Estimated GFR (MDRD) Amer 42 mL/min >60 [facility] Comment on above: GFR Calc Estimated GFR (MDRD) Non-Af Amer 35 mL/min >60 [facility] Comment on above: Non- GFR Calc Troponin I High Sensitivity 11 pg/mL 3.0-54.0 [facility] Comment on above: Please Note: New Riya t Units and Gender Specific Reference Ranges. For more information see Policy Stat Procedure [place] High Sensitivity Troponin (TNIH) and attachments. Platelets bldOrdered By: Rem us Felecia on 08-01-2023 Platelets (Bld) [#/Vol] 334 10*3/uL 150-450 [facility] Protein Test strip Ql (U)Ord ered By: Remus Ungsamia on 08-01-2023 Protein Ql (U) 30 mg/dl Negative [facility] Serum or plasma calcium paul urement (mass/volume)Ordered By: Remus Ungsamia on 08-01-2023 Calcium [Mass/Vol] 9.0 mg/dL 8.5-10.1 [facility] Serum or plasma creatinine m easurement (mass/volume)Ordered By: Remus Ungsamia on 08-01-2023 Creatinine [Mass/Vol] 1.59 mg/dL 0.55-1.02 [facility] Comment on above: The validity of the calculated GFR & GFRAA in patients over 70 years has not been determined. Clinical correlation is essential. Serum or plasma urea nitroge n measurement (mass/volume)Ordered By: Remus Felecia on 08-01-2023 Urea nitrogen [Mass/Vol] 31 mg/dL 7-18 [facility] Squamous epithelial cells de tection in urine sediment by light microscopyOrdered By: Remus Ungsamia on 08-01-2023 Epithelial cells.squamous LM Ql (Urine sed) 0 SEEN /hpf 5-10 [facility] Thin prep Papanicolaou smear with manual screeningOrdered By: Remus Felecia on 08-01-2023 Thin prep Papanicolaou smear with manual screening 7 5-15 [facility] Urine blood detectionOrdered By: Remus Ungsamia on 08-01-2023 RBC Ql (U) 25 /ul Negative [facility] RBC Ql (U) 0 SEEN /hpf 0-5 [facility] Urine clarityOrdered By: Rem us Ungsamia on 08-01-2023 Clarity (U) Clear Clear [facility] Urine color determinationOrd ered By: Remus Ungsamia on 08-01-2023 Color (U) Yellow Yellow [facility] Urine glucose detectionOrder ed By: Remus Felecia on 08-01-2023 Glucose Ql (U) 1000 mg/dl Normal [facility] Urine leukocyte esterase det ection by dipstickOrdered By: Remus Ungsamia on 08-01-2023 Leukocyte esterase Test strip Ql (U) 100 /ul Negative [facility] Urine pHOrdered By: Ellenus Benavidez gur on 08-01-2023 pH (U) 7.0 [pH] 5.0 - 8.0 [facility] Urine sediment bacteria coun t by microscopy (number/high power field)Ordered By: Nicolasa Izquierdo on 08-01-2023 Bacteria LM.HPF (Urine sed) [#/Area] 0 /[HPF] None Seen [facility] Urine specific gravity measu rementOrdered By: [facility]23 Specific gravity (U) [Rel density] 1.010 1.002-1.03 0 [facility] Urobilinogen Auto test strip Ql (U)Ordered By: Nicolasa Izquierdo on 08-01-2023 Urobilinogen Ql (U) Normal mg/dl Normal [facility] Absolute lymphocyte countOrd ered By: Lisbet Herrera on 07-20-2023 Lymphocytes Auto (Unsp spec) [#/Vol] 1.42 10*3/uL 0.83-4.51 [facility] Basophil percentageOrdered B y: Lisbet Herrera on 07-20-2023 Basophils/100 WBC (Bld) 0.6 % 0-1 [facility] Chloride [Moles/Vol] 102 mmol/L 98-107 [facility] Eosinophils/100 WBC (Bld) 1.5 % 0-5 [facility] Glucose [Mass/Vol] 211 mg/dL 74-106 [facility] Comment on above: Glucose result great er than or equal to 200 mg/dLsuggests DIABETES MELLITUS per A.D.A. criteria. Neutrophils (Bld) [#/Vol] 6.0 10*3/uL 2.0-7.7 [facility] Neutrophils/100 WBC (Bld) 71.6 % 47-70 [facility] Potassium [Moles/Vol] 4.3 mmol/L 3.5-5.1 [facility] Sodium [Moles/Vol] 134 mmol/L 136-145 [facility] WBC (Bld) [#/Vol] 8.4 10*3/uL 4.4-11.0 [facility] Blood erythrocytes count (nu mber/volume)Ordered By: Lisbet Herrera on 07-20-2023 RBC (Bld) [#/Vol] 3.60 10*6/uL 4.2-5.4 [facility] Blood hemoglobin measurement (mass/volume)Ordered By: Lisbet Herrera on 07-20-2023 Hemoglobin (Bld) [Mass/Vol] 11.0 g/dL 12.0-15.0 [facility] Blood lymphocytes/100 leukoc ytesOrdered By: Lisbet Herrera on 07-20-2023 Lymphocytes/100 WBC (Bld) 16.8 % 19-41 [facility] Blood monocytes/100 leukocyt esOrdered By: Lisbet Herrera on 07-20-2023 Monocytes/100 WBC (Bld) 9.0 % 0-10 [facility] Blood platelet mean volumeOr dered By: Lisbet Herrera on 07-20-2023 Platelet mean volume (Bld) [Entitic vol] 9.4 fL 6.2-12.0 [facility] Determination of erythrocyte mean corpuscular volume (MCV)Ordered By: Lisbet Herrera on 07-20-2023 MCV (RBC) [Entitic vol] 97.2 fL 81-99 [facility] Erythrocyte sedimentation ra teOrdered By: Lisbet Herrera on 07-20-2023 ESR (Bld) [Velocity] 79 mm/h 0-30 [facility] Hematocrit Auto (Bld) [Volum e fraction]Ordered By: Lisbet Herrera on 07-20-2023 Hematocrit (Bld) [Volume fraction] 35.0 % 37-47 [facility] - Chemistry and C hemistry - challengeOrdered By: Lisbet Herrera on 07-20-2023 CO2 [Moles/Vol] 28.0 mmol/L 21.0-32.0 [facility] Urea nitrogen/Creatinine [Mass ratio] 20.4 mg/mg 10-20 [facility] - Hematology and Cell countsOrdered By: Lisbet Herrera on 07-20-2023 Erythrocyte distribution width (RBC) [Entitic vol] 44.3 fL 35.1-43.9 [facility] Erythrocyte distribution width (RBC) [Ratio] 12.3 % 11.6-14.6 [facility] Immature granulocytes/100 WBC (Bld) 0.500 % 0.0-0.9 [facility] Comment on above: IG% - Immature Granu locytes (promyelocytes, myelocytes and metamyelocytes) > 1% indicates that a LEFT SHIFT is Present. MCH (RBC) [Entitic mass] 30.6 pg 27.0-32.0 [facility] Nucleated RBC/100 WBC (Bld) [Ratio] 0 % 0-5 [facility] MCHC Auto (RBC) [Mass/Vol]Or dered By: Lisbet Herrera on 07-20-2023 MCHC (RBC) [Mass/Vol] 31.4 g/dL 32-36 [facility] No Panel InformationOrdered By: Lisbet Herrera on 07-20-2023 Estimated Creatinine Clearance Calc 33.67 ml/min [facility] Estimated GFR (MDRD) Amer 50 mL/min >60 [facility] Comment on above: GFR Calc Estimated GFR (MDRD) Non-Af Amer 42 mL/min >60 [facility] Comment on above: Non- GFR Calc Platelets bldOrdered By: Cori Herrera on 07-20-2023 Platelets (Bld) [#/Vol] 331 10*3/uL 150-450 [facility] Serum or plasma calcium paul urement (mass/volume)Ordered By: Lisbet Herrera on 07-20-2023 Calcium [Mass/Vol] 9.1 mg/dL 8.5-10.1 [facility] Serum or plasma creatinine m easurement (mass/volume)Ordered By: Lisbet Herrera on 07-20-2023 Creatinine [Mass/Vol] 1.37 mg/dL 0.55-1.02 [facility] Comment on above: The validity of the calculated GFR & GFRAA in patients over 70 years has not been determined. Clinical correlation is essential. Serum or plasma urea nitroge n measurement (mass/volume)Ordered By: Lisbet Herrera on 07-20-2023 Urea nitrogen [Mass/Vol] 28 mg/dL 7-18 [facility] Thin prep Papanicolaou smear with manual screeningOrdered By: Lisbet Herrera on 07-20-2023 Thin prep Papanicolaou smear with manual screening 4 5-15 [facility] Serum or plasma C reactive p rotein measurement (mass/volume)Ordered By: Lisbet Sharon on 07-17-2023 CRP [Mass/Vol] 65.60 mg/L 0.0-3.0 [facility] Comment on above: C-Reactive Protein ( CRP) provides useful information for thediagnosis, therapy and monitoring of inflammatory processesand associated diseases. For the evaluation of Relative Riskfor Cardiovascular Disease, a High Sensitivity CRP (HSCRP)should be ordered. Glucose Glucometer (BldC) [M ass/Vol]Ordered By: Lisbet Sharon on 07-12-2023 Glucose [Mass/Vol] 78 mg/dL 74-106 [facility] Comment on above: MANAGEMENT OF PATIEN T CARE PER NURSING PROTOCOL Basophil percentageOrdered B y: Lisbet Sharon on 07-06-2023 Basophil percentage 4.2 mg/dL 2.5-4.9 [facility] Bilirubin [Mass/Vol] 0.30 mg/dL 0.20-1.00 [facility] Comment on above: For patients on eltr ombopag therapy, use of Dimension [place] TBIL is not recommended. Protein [Mass/Vol] 8.1 g/dL 6.4-8.2 [facility] - Chemistry and C hemistry - challengeOrdered By: Lisbet Sharon on 07-06-2023 ALP [Catalytic activity/Vol] 141 U/L 45-117 [facility] ALT [Catalytic activity/Vol] 10 U/L 13-56 [facility] Globulin (S) [Mass/Vol] 5.7 g/dL 2.2-4.2 [facility] Magnesium [Mass/Vol] 2.4 mg/dL 1.6-2.6 [facility] Serum or plasma albumin paul urement (mass/volume)Ordered By: Lisbet Herrera on 07-06-2023 Albumin [Mass/Vol] 2.4 g/dL 3.2-5.0 [facility] Serum or plasma albumin/glob ulin mass ratioOrdered By: Lisbet Herrera on 07-06-2023 Albumin/Globulin [Mass ratio] 0.4 {ratio} 0.9-2.4 [facility] Thin prep Papanicolaou smear with manual screeningOrdered By: Lisbet Herrera on 07-06-2023 Thin prep Papanicolaou smear with manual screening 18 U/L 15-37 [facility] Absolute lymphocyte countOrd ered By: Shayla Kennedy on 07-05-2023 Lymphocytes Auto (Unsp spec) [#/Vol] 1.84 10*3/uL 0.83-4.51 [facility] Basophil percentageOrdered B y: Shayla Kennedy on 07-05-2023 Basophils/100 WBC (Bld) 1.2 % 0-1 [facility] Chloride [Moles/Vol] 105 mmol/L 98-107 [facility] Eosinophils/100 WBC (Bld) 2.0 % 0-5 [facility] Glucose [Mass/Vol] 196 mg/dL 74-106 [facility] Comment on above: Fasting Glucose resu lt greater than or equal to 126 mg/dL suggests DIABETES MELLITUS per A.D.A. criteria. Neutrophils (Bld) [#/Vol] 6.1 10*3/uL 2.0-7.7 [facility] Neutrophils/100 WBC (Bld) 65.8 % 47-70 [facility] Potassium [Moles/Vol] 3.9 mmol/L 3.5-5.1 [facility] Sodium [Moles/Vol] 137 mmol/L 136-145 [facility] WBC (Bld) [#/Vol] 9.2 10*3/uL 4.4-11.0 [facility] Blood erythrocytes count (nu mber/volume)Ordered By: Shayla Kennedy on 07-05-2023 RBC (Bld) [#/Vol] 3.42 10*6/uL 4.2-5.4 [facility] Blood hemoglobin measurement (mass/volume)Ordered By: Shayla Kennedy on 07-05-2023 Hemoglobin (Bld) [Mass/Vol] 10.3 g/dL 12.0-15.0 [facility] Blood lymphocytes/100 leukoc ytesOrdered By: Shayla Kennedy on 07-05-2023 Lymphocytes/100 WBC (Bld) 20.0 % 19-41 [facility] Blood monocytes/100 leukocyt esOrdered By: Shayla Kennedy on 07-05-2023 Monocytes/100 WBC (Bld) 10.2 % 0-10 [facility] Blood platelet mean volumeOr dered By: Shayla Kennedy on 07-05-2023 Platelet mean volume (Bld) [Entitic vol] 9.2 fL 6.2-12.0 [facility] Determination of erythrocyte mean corpuscular volume (MCV)Ordered By: Shayla Kennedy on 07-05-2023 MCV (RBC) [Entitic vol] 98.0 fL 81-99 [facility] Hematocrit Auto (Bld) [Volum e fraction]Ordered By: Shayla Kennedy on 07-05-2023 Hematocrit (Bld) [Volume fraction] 33.5 % 37-47 [facility] - Chemistry and C hemistry - challengeOrdered By: Shayla Kennedy on 07-05-2023 CO2 [Moles/Vol] 26.0 mmol/L 21.0-32.0 [facility] Urea nitrogen/Creatinine [Mass ratio] 21.5 mg/mg 10-20 [facility] - Hematology and Cell countsOrdered By: Shayla Kennedy on 07-05-2023 Erythrocyte distribution width (RBC) [Entitic vol] 44.5 fL 35.1-43.9 [facility] Erythrocyte distribution width (RBC) [Ratio] 12.4 % 11.6-14.6 [facility] Immature granulocytes/100 WBC (Bld) 0.800 % 0.0-0.9 [facility] Comment on above: IG% - Immature Granu locytes (promyelocytes, myelocytes and metamyelocytes) > 1% indicates that a LEFT SHIFT is Present. MCH (RBC) [Entitic mass] 30.1 pg 27.0-32.0 [facility] Nucleated RBC/100 WBC (Bld) [Ratio] 0 % 0-5 [facility] MCHC Auto (RBC) [Mass/Vol]Or dered By: Shayla Kennedy on 07-05-2023 MCHC (RBC) [Mass/Vol] 30.7 g/dL 32-36 [facility] No Panel InformationOrdered By: Shayla Kennedy on 07-05-2023 Estimated Creatinine Clearance Calc 35.74 ml/min [facility] Estimated GFR (MDRD) Amer 51 mL/min >60 [facility] Comment on above: GFR Calc Estimated GFR (MDRD) Non-Af Amer 42 mL/min >60 [facility] Comment on above: Non- GFR Calc Platelets bldOrdered By: Julienne owen Brent on 07-05-2023 Platelets (Bld) [#/Vol] 340 10*3/uL 150-450 [facility] Serum or plasma calcium paul urement (mass/volume)Ordered By: Shayla Kennedy on 07-05-2023 Calcium [Mass/Vol] 9.0 mg/dL 8.5-10.1 [facility] Serum or plasma creatinine m easurement (mass/volume)Ordered By: Shayla Kennedy on 07-05-2023 Creatinine [Mass/Vol] 1.35 mg/dL 0.55-1.02 [facility] Comment on above: The validity of the calculated GFR & GFRAA in patients over 70 years has not been determined. Clinical correlation is essential. Serum or plasma urea nitroge n measurement (mass/volume)Ordered By: Shayla Kennedy on 07-05-2023 Urea nitrogen [Mass/Vol] 29 mg/dL 7-18 [facility] Thin prep Papanicolaou smear with manual screeningOrdered By: Shayla Kennedy on 07-05-2023 Thin prep Papanicolaou smear with manual screening 6 5-15 [facility] Glucose Glucometer (BldC) [M ass/Vol]Ordered By: Shayla Kennedy on 06-29-2023 Glucose [Mass/Vol] 166 mg/dL 74-106 [facility] Comment on above: MANAGEMENT OF PATIEN T CARE PER NURSING PROTOCOL Review by pathologistOrdered By: Shayla Kennedy on 06-29-2023 Pathologist review Temo (Unsp spec) [Interp] Reviewed [facility] Comment on above: Previous reported re sult: Breanna arizmendi Edited by: RGOOD on 06/29/23:1521Neutrophilic leukocytosis.Normocytic anemia.Clinical correlation necessary.Favio Cohen M.D. 06/29/23 AMENDED REPORT 06/29/23 1521 PATH REV previously reported as: Breanna arizmendi Blood manual differential co mment interpretation (narrative result)Ordered By: Yajaira Bryan on 06-26-2023 Manual differential comment Temo (Bld) [Interp] SCANNED [facility] - Microbiology an d Antimicrobial susceptibilityOrdered By: Comfort Cheung on 2023 Bacteria identified Cx Nom (Bld) No growth in 5 days. [facility] Bacteria identified Cx Nom (Bld) No growth in 5 days. [facility] No Panel InformationOrdered By: Yajaira Bryan on 06-22-2023 Methicillin-Resist S.aureus DNA PCR Negative Negative [facility] * Body fluid crystals type b y light microscopyOrdered By: Anatoliy Moreno on 06-21-2023 Crystals LM Nom (Body fld) NO CRYSTALS SEEN [facility] Comment on above: CRYSTAL RESULT IS PRELIMINARY. SEE PATH REVIEW FOR FINAL REPORT. Acetaminophen level (mass/vo lume)Ordered By: Bree Dave on 06-21-2023 Acetaminophen (Unsp spec) [Mass/Vol] < 2.0 ug/mL 10.0-30.0 [facility] Acid fast bacilli (AFB) cult ureOrdered By: Anatoliy Moreno on 06-21-2023 Mycobacterium sp identified Org specific cx Nom (Unsp spec) [facility] Anaerobic cultureOrdered By: Anatoliy Moreno on 06-21-2023 Bacteria identified Anaer cx Nom (Unsp spec) No anaerobic bacteria isolated. [facility] Bacteria identified Anaer cx Nom (Unsp spec) No anaerobic bacteria isolated. [facility] Bacteria identified Anaer cx Nom (Unsp spec) No anaerobic bacteria isolated. [facility] Bacteria identified Anaer cx Nom (Unsp spec) No anaerobic bacteria isolated. [facility] Bacteria identified Cx Nom ( Body fld)Ordered By: Anatoliy Moreno on 06-21-2023 Body Fluid Culture Staphylococcus aureus [facility] Body Fluid Culture Streptococcus mitis [facility] Body Fluid Culture Staphylococcus aureus [facility] Body Fluid Culture [facility] Bacteria identified Cx Nom ( Wound)Ordered By: Anatoliy Moreno on 06-21-2023 Wound Culture Staphylococcus aureus [facility] Wound Culture Staphylococcus aureus [facility] Basophil percentageOrdered B y: Bree Dave on 06-21-2023 Bilirubin [Mass/Vol] 0.70 mg/dL 0.20-1.00 [facility] Comment on above: For patients on eltr ombopag therapy, use of Dimension [place] TBIL is not recommended. Protein [Mass/Vol] 8.8 g/dL 6.4-8.2 [facility] Blood lymphocytes/100 leukoc ytesOrdered By: Anatoliy Moreno on 06-21-2023 Lymphocytes/100 WBC (Bld) 2 % [facility] Color of Synovial fluidOrder ed By: Anatoliy Moreno on 06-21-2023 Color (Syn fld) Red Pale Yellow [facility] Culture, urineOrdered By: Jose Dave on 06-21-2023 Bacteria identified Cx Nom (U) Mixed Gram Pos & Gram Neg Org [facility] Determination of appearance of synovial fluidOrdered By: Anatoliy Moreno on 06-21-2023 Appearance (Syn fld) Purulent CLEAR [facility] Direct bilirubinOrdered By: Bree Dave on 06-21-2023 Bilirubin.direct [Mass/Vol] 0.24 mg/dL 0.00-0.30 [facility] Erythrocyte sedimentation ra teOrdered By: Bree Dave on 06-21-2023 ESR (Bld) [Velocity] mm/h 0-30 [facility] Fungus cultureOrdered By: Shyam Moreno on 06-21-2023 Fungus identified Cx Nom (Unsp spec) [facility] Fungus stainOrdered By: Wilmer Moreno on 06-21-2023 Fungus identified Fungus stain Nom (Unsp spec) [facility] Gram stain for investigation of transfusion reactionOrdered By: Anatoliy Moreno on 06-21-2023 Microscopic observation Gram stain Nom (Unsp spec) [facility] Microscopic observation Gram stain Nom (Unsp spec) [facility] Microscopic observation Gram stain Nom (Unsp spec) [facility] Microscopic observation Gram stain Nom (Unsp spec) [facility] - Chemistry and C hemistry - challengeOrdered By: Bree Dave on 06-21-2023 ALP [Catalytic activity/Vol] 121 U/L 45-117 [facility] ALT [Catalytic activity/Vol] 39 U/L 13-56 [facility] Globulin (S) [Mass/Vol] 5.5 g/dL 2.2-4.2 [facility] No Panel InformationOrdered By: Anatoliy Moreno on 06-21-2023 Synovial Fluid Mononuclear WBCs 5.037 10^3/ul [facility] Synovial Fluid Mononuclear WBCs % 8.2 % [facility] Synovial Fluid Polynuclear WBCs 5.037 10^3/uL [facility] Synovial Fluid Polynuclear WBCs % 91.8 % [facility] Synovial Fluid Total Cells Counted 219.7600 10^3/uL 0.000-0.00 0 [facility] Comment on above: This is the Total Nu mber of Nucleated Cell Types in the Body Fluid. No Panel InformationOrdered By: Bree Dave on 06-21-2023 Troponin I High Sensitivity 19 pg/mL 3.0-54.0 [facility] Comment on above: Please Note: New Riya t Units and Gender Specific Reference Ranges. For more information see Policy Stat Procedure [place] High Sensitivity Troponin (TNIH) and attachments. Qualitative synovial fluid v iscosityOrdered By: Anatoliy Moreno on 06-21-2023 Viscosity Ql (Syn fld) Mod. Viscous HIGH [facility] Review by pathologistOrdered By: Anatoliy Moreno on 06-21-2023 Pathologist review Temo (Unsp spec) [Interp] May follow [facility] Pathologist review Temo (Unsp spec) [Interp] Reviewed [facility] Comment on above: Previous reported re sult: Will follow Edited by: RGOOD on 06/22/23:1330No crystals identified.Nando Gerardo D.O. 06/22/23 AMENDED REPORT 06/22/23 1330 PATH REV previously reported as: Will follow Serum or plasma C reactive p rotein measurement (mass/volume)Ordered By: Bree Dave on 06-21-2023 CRP [Mass/Vol] 126.00 mg/L 0.0-3.0 [facility] Comment on above: C-Reactive Protein ( CRP) provides useful information for thediagnosis, therapy and monitoring of inflammatory processesand associated diseases. For the evaluation of Relative Riskfor Cardiovascular Disease, a High Sensitivity CRP (HSCRP)should be ordered. Serum or plasma albumin paul urement (mass/volume)Ordered By: Bree Dave on 06-21-2023 Albumin [Mass/Vol] 3.3 g/dL 3.2-5.0 [facility] Specimen source identificati on of body fluidOrdered By: Anatoliy Moreno on 06-21-2023 Specimen source Nom (Body fld) SYNOVIAL [facility] Specimen source Nom (Body fld) Not Reportable [facility] Synovial fluid erythrocytes count (number/volume)Ordered By: Anatoliy Moreno on 06-21-2023 RBC (Syn fld) [#/Vol] 0.133 10^6/uL 0-0 [facility] Synovial fluid glucose measu rement (mass/volume)Ordered By: Anatoliy Moreno on 06-21-2023 Glucose (Syn fld) [Mass/Vol] 119 mg/dL . [facility] Comment on above: : BODY FLUID TYPE : GLUCOSE : : : : : Amniotic Fluid : 45 - 76 : : : : : Bile, Clear : < 5 : : : : : Bile, Yellow : < 8 : : : : : Lymph : 48 - 200 : : : : : Nasal Secretion : < 10 : : : : : Pleural Fluid : 65 - 99 : : : : : Saliva : < 2 : : (Mixed Glands) : : : : : : Sweat : < 7 : : : : : Synovial Fluid : 65 - 99 : : : : : Tears : 76 - 288 : : : : Cody Pelaez V. Reference Intervals for Adults and Children 2008. Ninth edition (V9.1) [employer], [facility]; [place]: March 2009.Performed at: [place] [id number] Director: Gustavo Lim PhD, Phone: [phone] Synovial fluid leukocytes co unt (number/volume)Ordered By: Anatoliy Moreno on 06-21-2023 WBC (Syn fld) [#/Vol] 219.5600 10^3/uL 0. 000-0.00 2 [facility] Synovial fluid monocyte perc entageOrdered By: Anatoliy Moreno on 06-21-2023 Monocytes/100 WBC (Syn fld) 6 % [facility] Synovial fluid neutrophil pe rcentageOrdered By: Anatoliy Moreno on 06-21-2023 Neutrophils/100 WBC (Syn fld) 92 % 0-25 [facility] Synovial fluid other cells/1 00 leukocytes identificationOrdered By: Anatoliy Moreno on 06-21-2023 Other cells/100 WBC Nom (Syn fld) 1 % [facility] Thin prep Papanicolaou smear with manual screeningOrdered By: Anatoliy Moreno on 06-21-2023 Thin prep Papanicolaou smear with manual screening [facility] Thin prep Papanicolaou smear with manual screeningOrdered By: Bree Dave on 06-21-2023 Thin prep Papanicolaou smear with manual screening 15 U/L 15-37 [facility] Whole blood hemoglobin A1c/t otal hemoglobin ratio (mass fraction)Ordered By: Yajaira Bryan on 06-21-2023 HbA1c (Bld) [Mass fraction] 7.4 % 3.8-5.6 [facility] Comment on above: Normal < 5.7 % Predi abetic 5.7 - 6.4 % Diabetic >or= 6.5 % Please note range changes. Basophil percentageOrdered B y: Bree Dave on 06-20-2023 Basophil percentage 25-50 SEEN /hpf 0-5 [facility] Bilirubin Test strip Ql (U)O rdered By: Bree Dave on 06-20-2023 Bilirubin Ql (U) Negative Negative [facility] Culture, urineOrdered By: Jose Dave on 06-20-2023 Bacteria identified Cx Nom (U) Mixed Gram Pos & Gram Neg Org [facility] Ketones Test strip Ql (U)Ord ered By: Bree Dave on 06-20-2023 Ketones Ql (U) 5 mg/dl Negative [facility] Mucus LM Ql (Urine sed)Order ed By: Bree Dave on 06-20-2023 Mucus Ql (Urine sed) 0 SEEN /hpf [facility] Nitrite Test strip Ql (U)Ord ered By: Bree Dave on 06-20-2023 Nitrite Ql (U) Negative Negative [facility] Protein Test strip Ql (U)Ord ered By: Bree Dave on 06-20-2023 Protein Ql (U) 500 mg/dl Negative [facility] Squamous epithelial cells de tection in urine sediment by light microscopyOrdered By: Bree Dave on 06-20-2023 Epithelial cells.squamous LM Ql (Urine sed) 0-5 SEEN /hpf 5-10 [facility] Urine blood detectionOrdered By: Bree Dave on 06-20-2023 RBC Ql (U) 25 /ul Negative [facility] RBC Ql (U) 0 SEEN /hpf 0-5 [facility] Urine clarityOrdered By: Ritu Dave on 06-20-2023 Clarity (U) Clear Clear [facility] Urine color determinationOrd ered By: Bree Dave on 06-20-2023 Color (U) Yellow Yellow [facility] Urine glucose detectionOrder ed By: Bree Dave on 06-20-2023 Glucose Ql (U) 1000 mg/dl Normal [facility] Urine leukocyte esterase det ection by dipstickOrdered By: Bree Dave on 06-20-2023 Leukocyte esterase Test strip Ql (U) 500 /ul Negative [facility] Urine pHOrdered By: Bree soliz on 06-20-2023 pH (U) 7.0 [pH] 5.0 - 8.0 [facility] Urine sediment bacteria coun t by microscopy (number/high power field)Ordered By: Bree Dave on 06-20-2023 Bacteria LM.HPF (Urine sed) [#/Area] 1 /[HPF] None Seen [facility] Urine specific gravity measu rementOrdered By: Bree Dave on 06-20-2023 Specific gravity (U) [Rel density] 1.010 1.002-1.03 0 [facility] Urobilinogen Auto test strip Ql (U)Ordered By: Bree Dave on 06-20-2023 Urobilinogen Ql (U) Normal mg/dl Normal [facility] Absolute lymphocyte countOrd ered By: Ashley Dai on 06-07-2023 Lymphocytes Auto (Unsp spec) [#/Vol] 1.91 10*3/uL 0.83-4.51 [facility] Basophil percentageOrdered B y: Ashley Dai on 06-07-2023 Basophils/100 WBC (Bld) 0.7 % 0-1 [facility] Bilirubin [Mass/Vol] 0.40 mg/dL 0.20-1.00 [facility] Comment on above: For patients on eltr ombopag therapy, use of Dimension [place] TBIL is not recommended. Chloride [Moles/Vol] 102 mmol/L 98-107 [facility] Eosinophils/100 WBC (Bld) 1.3 % 0-5 [facility] Glucose [Mass/Vol] 144 mg/dL 74-106 [facility] Comment on above: Fasting Glucose resu lt greater than or equal to 126 mg/dL suggests DIABETES MELLITUS per A.D.A. criteria. Neutrophils (Bld) [#/Vol] 6.8 10*3/uL 2.0-7.7 [facility] Neutrophils/100 WBC (Bld) 67.8 % 47-70 [facility] Potassium [Moles/Vol] 4.7 mmol/L 3.5-5.1 [facility] Comment on above: Moderate Hemolysis, Result may be falsely increased. Protein [Mass/Vol] 8.2 g/dL 6.4-8.2 [facility] Sodium [Moles/Vol] 136 mmol/L 136-145 [facility] WBC (Bld) [#/Vol] 10.0 10*3/uL 4.4-11.0 [facility] Blood erythrocytes count (nu mber/volume)Ordered By: Ashley Dai on 06-07-2023 RBC (Bld) [#/Vol] 4.60 10*6/uL 4.2-5.4 [facility] Blood hemoglobin measurement (mass/volume)Ordered By: Ashley Dai on 06-07-2023 Hemoglobin (Bld) [Mass/Vol] 13.8 g/dL 12.0-15.0 [facility] Blood lymphocytes/100 leukoc ytesOrdered By: Ashley Dai on 06-07-2023 Lymphocytes/100 WBC (Bld) 19.2 % 19-41 [facility] Blood monocytes/100 leukocyt esOrdered By: Ashley Dai on 06-07-2023 Monocytes/100 WBC (Bld) 10.7 % 0-10 [facility] Blood platelet mean volumeOr dered By: Ashley Dai on 06-07-2023 Platelet mean volume (Bld) [Entitic vol] 9.3 fL 6.2-12.0 [facility] Determination of erythrocyte mean corpuscular volume (MCV)Ordered By: Ashley Dai on 06-07-2023 MCV (RBC) [Entitic vol] 99.1 fL 81-99 [facility] Hematocrit Auto (Bld) [Volum e fraction]Ordered By: Ashley Dai on 06-07-2023 Hematocrit (Bld) [Volume fraction] 45.6 % 37-47 [facility] Laboratory - Chemistry and C hemistry - challengeOrdered By: Ashley Dai on 06-07-2023 ALP [Catalytic activity/Vol] 132 U/L 45-117 [facility] ALT [Catalytic activity/Vol] 35 U/L 13-56 [facility] CO2 [Moles/Vol] 31.0 mmol/L 21.0-32.0 [facility] Free T4 [Mass/Vol] 1.03 ng/dL 0.76-1.46 [facility] Globulin (S) [Mass/Vol] 4.7 g/dL 2.2-4.2 [facility] Urea nitrogen/Creatinine [Mass ratio] 16.8 mg/mg 10-20 [facility] Laboratory - Hematology and Cell countsOrdered By: Ashley Dai on 06-07-2023 Erythrocyte distribution width (RBC) [Entitic vol] 47.7 fL 35.1-43.9 [facility] Erythrocyte distribution width (RBC) [Ratio] 12.9 % 11.6-14.6 [facility] Immature granulocytes/100 WBC (Bld) 0.300 % 0.0-0.9 [facility] Comment on above: IG% - Immature Granu locytes (promyelocytes, myelocytes and metamyelocytes) > 1% indicates that a LEFT SHIFT is Present. MCH (RBC) [Entitic mass] 30.0 pg 27.0-32.0 [facility] Nucleated RBC/100 WBC (Bld) [Ratio] 0 % 0-5 [facility] MCHC Auto (RBC) [Mass/Vol]Or dered By: Ashley Dai on 06-07-2023 MCHC (RBC) [Mass/Vol] 30.3 g/dL 32-36 [facility] No Panel InformationOrdered By: Ashley Dai on 06-07-2023 Estimated GFR (MDRD) Amer 36 mL/min >60 [facility] Comment on above: GFR Calc Estimated GFR (MDRD) Non-Af Amer 30 mL/min >60 [facility] Comment on above: Non- GFR Calc Free Triiodothyronine (T3) pg/dL 2.2 pg/mL 2.18-3.98 [facility] Thyroid Stimulating Hormone (TSH) 1.05 uIU/mL 0.358-3.74 [facility] Platelets bldOrdered By: Juanito adelsosrini Dai on 06-07-2023 Platelets (Bld) [#/Vol] 272 10*3/uL 150-450 [facility] Serum or plasma albumin paul urement (mass/volume)Ordered By: Ashley Dai on 06-07-2023 Albumin [Mass/Vol] 3.5 g/dL 3.2-5.0 [facility] Serum or plasma albumin/glob ulin mass ratioOrdered By: Ashley Dai on 06-07-2023 Albumin/Globulin [Mass ratio] 0.7 {ratio} 0.9-2.4 [facility] Serum or plasma calcium paul urement (mass/volume)Ordered By: Ashley Dai on 06-07-2023 Calcium [Mass/Vol] 9.0 mg/dL 8.5-10.1 [facility] Serum or plasma creatinine m easurement (mass/volume)Ordered By: Ashley Dai on 06-07-2023 Creatinine [Mass/Vol] 1.84 mg/dL 0.55-1.02 [facility] Comment on above: The validity of the calculated GFR & GFRAA in patients over 70 years has not been determined. Clinical correlation is essential. Serum or plasma urea nitroge n measurement (mass/volume)Ordered By: Ashley Dai on 06-07-2023 Urea nitrogen [Mass/Vol] 31 mg/dL -18 [facility] Thin prep Papanicolaou smear with manual screeningOrdered By: Ashley Dai on 06-07-2023 Thin prep Papanicolaou smear with manual screening 35 U/L 15-37 [facility] Comment on above: Moderate Hemolysis, Result may be falsely increased. Thin prep Papanicolaou smear with manual screening 3 5-15 [facility] URIC ACIDon 05-30-2023 Urate [Mass/Vol] 4.6 mg/dL Normal 2.3 - 6.7 [facility] Comment on above: Result Comment: Susan puncture immediately after or during the administration of Metamizole may lead to falsely low results. Testing should be performed immediately prior to Metamizole dosing. Performed By: #### T [facility] #### [address] [address] Lab Specimen Source [facility] Comment on above: Performed By: #### T [facility] #### [address] [address] Laboratory - Hematology and Cell countson 05-09-2023 HbA1c (Bld) [Mass fraction] 9.4 % 4.2-6.3 [facility] 03-16-2023 CNPN Telephone (OPHWOO) ----- CAMILLE DAWKINS ([id number]) 1960 F Date Time Provider Department 03/16/23 SUE BAPTISTE OPHEUSEBIO During your visit today, we recorded the following information about you: Shasha Dennyomega [facility] 03/16/2023 12:00 PM Signed Patient called and was having flashing lights in left eye and she had a stroke on that side bake in July. I tried to get her into [facility] they had no openings and she did not want to go to [facility] and did not want to wait until to see Dr Baptiste.Shasha Palacios [facility] Shasha Palacios [facility] 03/17/2023 10:07 AM Signed Left VM to call back to schedule appointment for today 03/17/2023.Shasha Starks Allergies As of Date: 03/16/2023 Noted Allergy Reaction AMPICILLIN 08/09/2008 diomax [Other] 08/09/2008 LEVAQUIN (LEVOFLOXACIN) 08/09/2008 PENICILLINS 08/09/2008 TCN (TETRACYCLINES) 08/09/2008 Date Reviewed: 12/11/2015 Reviewed by: Yasmin Martini Ma - Fully Assessed Reason for Visit: appointment sched [Other] Cmt: Appointment scheduled Prescriptions as of 03/17/2023 - metoprolol succinate ER (TOPROL XL) 100 mg Take 50 mg by mouth once daily. - DULoxetine (CYMBALTA) 60 mg capsule Take 60 mg by mouth twice daily. - dapagliflozin propanediol (FARXIGA) 10 mg tablet Take 10 mg by mouth. - furosemide (LASIX) 40 mg tablet Take 40 mg by mouth once daily. - amiodarone (PACERONE) 200 mg tablet Take 200 mg by mouth once daily. - FEROSUL 325 mg (65 mg iron) tablet Take 1 tablet by mouth once daily. - atorvastatin (LIPITOR) 40 mg tablet Take 40 mg by mouth daily at bedtime. - HUMALOG KWIKPEN INSULIN 100 unit/mL INJECT 2 UNITS SUBCUTANEOUSLY WITH EACH MEAL. ADD 1 UNIT FOR EVERY 50 UNITS GREATER THAN 150 MG/DL. CALL PCP IF BLOOD GLUCOSE IS GREATER CHAMP - liraglutide (VICTOZA) 0.6 mg/ 0.1 ml subcutaneous pen injector Inject subcutaneously. - ELIQUIS 5 mg tab(s) Take 5 mg by mouth twice daily. - torsemide (DEMADEX) 20 mg tablet Take 20 mg by mouth once daily. - potassium chloride in water 10 mEq/100 mL Inject 10 mEq intravenously one time only. - Ca carb-Ca gluc-Mg ox-Mg gluco (CALCIUM MAGNESIUM) 500 mg calcium -250 mg tab Take by mouth. - Cyanocobalamin-Cobamamide (B12) 5,000-100 mcg lozg Take 5,000 mcg by mouth. - metoprolol tartrate, short acting, (LOPRESSOR) 25 mg tablet Take 25 mg by mouth twice daily. - LOSARTAN POTASSIUM (LOSARTAN ORAL) Take by mouth. - TRIAMTERENE-HYDROCHLOROTH IAZIDE 37.5 MG-25 MG CAP Takes 1/2 tablet daily Facility-Administered Medications as of 03/17/2023 - tropicamide 1 % 1 Drop (MYDRIACYL) - PHENYLephrine 2.5 % 1 Drop (AK-DILATE, JAMILA-SYNEPHRINE) - proparacaine 0.5 % 1 Drop (ALCAINE) Problem List As Of Date 03/16/2023 Noted Resolved Glucose intolerance (impaired glucose tolerance*06/02/2012 Premenopausal menorrhagia [N92.4] 06/02/2012 Cervical high risk human papillomavirus (HPV) D*06/28/2012 Unspecified essential hypertension [I10] 06/13/2013 Encounter Status:Closed by SHASHA JOHNSON on 03/17/23 Normal [facility] Absolute lymphocyte countOrd ered By: Macy Bradshaw on 11-04-2022 Lymphocytes Auto (Unsp spec) [#/Vol] 1.84 10*3/uL 0.83-4.51 [facility] Basophil percentageOrdered B y: Macy Bradshaw on 11-04-2022 Basophils/100 WBC (Bld) 0.7 % 0-1 [facility] Chloride [Moles/Vol] 97 mmol/L 98-107 [facility] Eosinophils/100 WBC (Bld) 1.5 % 0-5 [facility] Glucose [Mass/Vol] 212 mg/dL 74-106 [facility] Comment on above: Glucose result great er than or equal to 200 mg/dLsuggests DIABETES MELLITUS per A.D.A. criteria. Neutrophils (Bld) [#/Vol] 4.0 10*3/uL 2.0-7.7 [facility] Neutrophils/100 WBC (Bld) 58.8 % 47-70 [facility] Potassium [Moles/Vol] 4.2 mmol/L 3.5-5.1 [facility] Sodium [Moles/Vol] 135 mmol/L 136-145 [facility] WBC (Bld) [#/Vol] 6.9 10*3/uL 4.4-11.0 [facility] Blood erythrocytes count (nu mber/volume)Ordered By: Macy Bradshaw on 11-04-2022 RBC (Bld) [#/Vol] 4.61 10*6/uL 4.2-5.4 [facility] Blood hemoglobin measurement (mass/volume)Ordered By: Macy Bradshaw on 11-04-2022 Hemoglobin (Bld) [Mass/Vol] 12.5 g/dL 12.0-15.0 [facility] Blood lymphocytes/100 leukoc ytesOrdered By: Macy Bradshaw on 11-04-2022 Lymphocytes/100 WBC (Bld) 26.9 % 19-41 [facility] Blood manual differential co mment interpretation (narrative result)Ordered By: Macy Bradshaw on 11-04-2022 Manual differential comment Temo (Bld) [Interp] SCANNED [facility] Blood monocytes/100 leukocyt esOrdered By: Macy Bradshaw on 11-04-2022 Monocytes/100 WBC (Bld) 12.0 % 0-10 [facility] Blood platelet mean volumeOr dered By: Macy Bradshaw on 11-04-2022 Platelet mean volume (Bld) [Entitic vol] 9.6 fL 6.2-12.0 [facility] Determination of erythrocyte mean corpuscular volume (MCV)Ordered By: Macy Bradshaw on 11-04-2022 MCV (RBC) [Entitic vol] 90.9 fL 81-99 [facility] Hematocrit Auto (Bld) [Volum e fraction]Ordered By: Macy Bradshaw on 11-04-2022 Hematocrit (Bld) [Volume fraction] 41.9 % 37-47 [facility] Laboratory - Chemistry and C hemistry - challengeOrdered By: Macy Bradshaw on 11-04-2022 CO2 [Moles/Vol] 33.0 mmol/L 21.0-32.0 [facility] Urea nitrogen/Creatinine [Mass ratio] 24.0 mg/mg 10-20 [facility] Laboratory - Hematology and Cell countsOrdered By: Macy Bradshaw on 11-04-2022 Anisocytosis Ql (Bld) 1+ [facility] Erythrocyte distribution width (RBC) [Entitic vol] 71.6 fL 35.1-43.9 [facility] Erythrocyte distribution width (RBC) [Ratio] 21.6 % 11.6-14.6 [facility] Immature granulocytes/100 WBC (Bld) 0.100 % 0.0-0.9 [facility] Comment on above: IG% - Immature Granu locytes (promyelocytes, myelocytes and metamyelocytes) > 1% indicates that a LEFT SHIFT is Present. MCH (RBC) [Entitic mass] 27.1 pg 27.0-32.0 [facility] Nucleated RBC/100 WBC (Bld) [Ratio] 0 % 0-5 [facility] MCHC Auto (RBC) [Mass/Vol]Or dered By: Macy Bradshaw on 11-04-2022 MCHC (RBC) [Mass/Vol] 29.8 g/dL 32-36 [facility] No Panel InformationOrdered By: Macy Bradshaw on 11-04-2022 Estimated GFR (MDRD) Amer 45 mL/min >60 [facility] Comment on above: GFR Calc Estimated GFR (MDRD) Non-Af Amer 38 mL/min >60 [facility] Comment on above: Non- GFR Calc Platelets bldOrdered By: Servando Bradshaw on 11-04-2022 Platelets (Bld) [#/Vol] 295 10*3/uL 150-450 [facility] Serum or plasma calcium paul urement (mass/volume)Ordered By: Macy Bradshaw on 11-04-2022 Calcium [Mass/Vol] 9.7 mg/dL 8.5-10.1 [facility] Serum or plasma creatinine m easurement (mass/volume)Ordered By: Macy Bradshaw on 11-04-2022 Creatinine [Mass/Vol] 1.50 mg/dL 0.55-1.02 [facility] Comment on above: The validity of the calculated GFR & GFRAA in patients over 70 years has not been determined. Clinical correlation is essential. Serum or plasma urea nitroge n measurement (mass/volume)Ordered By: Macy Bradshaw on 11-04-2022 Urea nitrogen [Mass/Vol] 36 mg/dL 7-18 [facility] Thin prep Papanicolaou smear with manual screeningOrdered By: Macy Bradshaw on 11-04-2022 Thin prep Papanicolaou smear with manual screening 5 5-15 [facility] CBCon 10-29-2022 Erythrocyte distribution width (RBC) [Ratio] 22.4 % High 11.5 - 14.5 [facility] Comment on above: Performed By: #### C [facility] ####[address] [address] Hematocrit (Bld) [Volume fraction] 37.4 % Normal 36.0 - 46.0 [facility] Comment on above: Performed By: #### C [facility] ####[address] [address] Hemoglobin (Bld) [Mass/Vol] 11.2 g/dL Low 12.0 - 16.0 [facility] Comment on above: Performed By: #### C [facility] ####[address] [address] MCHC (RBC) [Mass/Vol] 29.9 g/dL Low 32.0 - 36.0 [facility] Comment on above: Performed By: #### C [facility] ####[address] [address] MCV (RBC) [Entitic vol] 90 fL Normal 80 - 100 U [facility] Comment on above: Performed By: #### C [facility] ####[address] [address] Platelets (Bld) [#/Vol] 296 10*3/uL Normal 150 - 450 [facility] Comment on above: Performed By: #### C [facility] ####[address] [address] RBC 4.14 x10E12/L Normal 4.00 - 5.20 [facility] Comment on above: Performed By: #### C [facility] ####[address] [address] WBC (Bld) [#/Vol] 6.7 10*3/uL Normal 4.4 - 11.3 [facility] Comment on above: Performed By: #### C [facility] ####[place] [id number] COMPREHENSIVE PANELon 2022 Albumin [Mass/Vol] 3.8 g/dL Normal 3.4 - 5.0 [facility] Comment on above: Performed By: #### C MP ####[address] [address] ALP [Catalytic activity/Vol] 99 U/L Normal 33 - 136 [facility] Comment on above: Performed By: #### C [facility] ####[address] [address] ALT [Catalytic activity/Vol] 14 U/L Normal 7 - 45 [facility] Comment on above: Result Comment: Radha ents treated with Sulfasalazine may generate falsely decreased results for ALT. Performed By: #### C [facility] ####[address] [address] Anion gap [Moles/Vol] 11 mmol/L Normal 10 - 20 [facility] Comment on above: Performed By: #### C [facility] ####[address] [address] AST [Catalytic activity/Vol] 23 U/L Normal 9 - 39 [facility] Comment on above: Performed By: #### C MP ####[address] [address] Bilirubin [Mass/Vol] 1.1 mg/dL Normal 0.0 - 1.2 [facility] Comment on above: Performed By: #### C MP ####[address] [address] Calcium [Mass/Vol] 9.6 mg/dL Normal 8.6 - 10.3 [facility] Comment on above: Performed By: #### C MP ####[address] [address] Chloride [Moles/Vol] 94 mmol/L Low 98 - 107 [facility] Comment on above: Performed By: #### C MP ####[address] [address] Creatinine [Mass/Vol] 1.37 mg/dL High 0.50 - 1.05 [facility] Comment on above: Performed By: #### C MP ####[address] [address] GFR/1.73 sq M.predicted among non-blacks MDRD (S/P/Bld) [Vol rate/Area] 44 mL/min/{1.73_m2} Abnormal >90 [facility] Comment on above: Result Comment: CALC ULATIONS OF ESTIMATED GFR ARE PERFORMED USING THE 2020 CKD-EPI STUDY REFIT EQUATION WITHOUT THE RACE VARIABLE FOR THE IDMS-TRACEABLE CREATININE METHODS.https://jasn.asnjournals.org/content// ASN.5010995239 Performed By: #### C MP ####[address] [address] Glucose [Mass/Vol] 160 mg/dL High 74 - 99 [facility] Comment on above: Performed By: #### C MP ####[address] [address] HCO3 (Bld) [Moles/Vol] 34 mmol/L High 21 - 32 [facility] Comment on above: Performed By: #### C MP ####[address] [address] Potassium [Moles/Vol] 4.0 mmol/L Normal 3.5 - 5.3 [facility] Comment on above: Performed By: #### C MP ####[address] [address] Protein [Mass/Vol] 7.0 g/dL Normal 6.4 - 8.2 [facility] Comment on above: Performed By: #### C MP ####[address] [address] Sodium [Moles/Vol] 135 mmol/L Low 136 - 145 [facility] Comment on above: Performed By: #### C MP ####[address] [address] Urea nitrogen [Mass/Vol] 28 mg/dL High 6 - 23 [facility] Comment on above: Performed By: #### C MP ####[address] [address] HEMOGLOBIN A1Con 10-29-2022 Glucose [Mass/Vol] 154 mg/dL Normal [facility] Comment on above: Performed By: #### H BA1E ####[address] [address] HbA1c (Bld) [Mass fraction] 7.0 % Abnormal [facility] Comment on above: Result Comment: Diag nosis of Diabetes-Adults Non-Diabetic: < or = 5.6% Increased risk for developing diabetes: 5.7-6.4% Diagnostic of diabetes: > or = 6.5%. Monitoring of Diabetes Age (y) Therapeutic Goal (%) Adults: >18 <7.0 Pediatrics: 13-18 <7.5 7-12 <8.0 0- 6 7.5-8.5 [employer]. Diabetes Care 33(S1), Sep 2009. Performed By: #### H BA1E ####[facility] [place] [address] Hemoglobin A1Con 10-29-2022 Glucose [Mass/Vol] 154 mg/dL [facility] Work Phone: HbA1c (Bld) [Mass fraction] 7.0 % Abnormal [facility] Work Phone: Comment on above: Diagnosis of Diabete s-Adults Non-Diabetic: < or = 5.6% Increased risk for developing diabetes: 5.7-6.4% Diagnostic of diabetes: > or = 6.5%. Monitoring of Diabetes Age (y) Therapeutic Goal (%) Adults: >18 <7.0 Pediatrics: 13-18 <7.5 7-12 <8.0 0- 6 7.5-8.5 [employer]. Diabetes Care 33(S1), Sep 2009. Laboratory - Chemistry and C hemistry - challengeon 10-29-2022 Albumin BCP dye [Mass/Vol] 3.8 g/dL 3.4 - 5.0 [facility] Work Phone: ALP [Catalytic activity/Vol] 99 U/L 33 - 136 [facility] Work Phone: ALT With P-5'-P [Catalytic activity/Vol] 14 U/L 7 - 45 [facility] Work Phone: Comment on above: Patients treated wit h Sulfasalazine may generate falsely decreased results for ALT. Anion gap [Moles/Vol] 11 mmol/L 10 - 20 [facility] Work Phone: AST With P-5'-P [Catalytic activity/Vol] 23 U/L 9 - 39 [facility] Work Phone: Bilirubin [Mass/Vol] 1.1 mg/dL 0.0 - 1.2 [facility] Work Phone: Calcium [Mass/Vol] 9.6 mg/dL 8.6 - 10.3 [facility] Work Phone: Chloride [Moles/Vol] 94 mmol/L below low threshold 98 - 107 [facility] Work Phone: CO2 [Moles/Vol] 34 mmol/L above high threshold 21 - 32 [facility] Work Phone: Creatinine [Mass/Vol] 1.37 mg/dL above high threshold See Below [facility] Work Phone: Comment on above: Reference Range: 0.5 0 - 1.05 Glucose [Mass/Vol] 160 mg/dL above high threshold 74 - 99 [facility] Work Phone: [phone] Potassium [Moles/Vol] 4.0 mmol/L 3.5 - 5.3 [facility] Work Phone: [phone] Protein [Mass/Vol] 7.0 g/dL 6.4 - 8.2 [facility] Work Phone: [phone] Sodium [Moles/Vol] 135 mmol/L below low threshold 136 - 145 [facility] Work Phone: [phone] Urea nitrogen [Mass/Vol] 28 mg/dL above high threshold 6 - 23 [facility] Work Phone: Laboratory - Hematology and Cell countson 10-29-2022 Erythrocyte distribution width (RBC) [Ratio] 22.4 % above high threshold See Below [facility] Work Phone: Comment on above: Reference Range: 11. 5 - 14.5 Hematocrit (Bld) [Volume fraction] 37.4 % See Below [facility] Work Phone: Comment on above: Reference Range: 36. 0 - 46.0 Hemoglobin (Bld) [Mass/Vol] 11.2 g/dL below low threshold See Below [facility] Work Phone: [phone] Comment on above: Reference Range: 12. 0 - 16.0 MCHC (RBC) [Mass/Vol] 29.9 g/dL below low threshold See Below [facility] Work Phone: [phone] Comment on above: Reference Range: 32. 0 - 36.0 MCV (RBC) [Entitic vol] 90 fL 80 - 100 [facility] Work Phone: [phone] Platelets (Bld) [#/Vol] 296 10*3/uL 150 - 450 [facility] Work Phone: [phone] RBC (Bld) [#/Vol] 4.14 {x10E12/L} See Below [place] [facility] Work Phone: [phone] Comment on above: Reference Range: 4.0 0 - 5.20 WBC (Bld) [#/Vol] 6.7 10*3/uL 4.4 - 11.3 [facility] Work Phone: [phone] MAGNESIUMon 10-29-2022 Magnesium [Mass/Vol] 1.98 mg/dL Normal 1.60 - 2.40 [facility] Comment on above: Performed By: #### M G ####[address] [address] Magnesium, Serumon 3 Magnesium [Mass/Vol] 1.98 mg/dL See Below -[facility] Work Phone: [phone] Comment on above: Reference Range: 1.6 0 - 2.40 No Panel Informationon 10-29 44 {mL/min/1.73m2} Abnormal >90 [facility] Work Phone: Comment on above: CALCULATIONS OF LASHAWN MATED GFR ARE PERFORMED USING THE 2020 CKD-EPI STUDY REFIT EQUATION WITHOUT THE RACE VARIABLE FOR THE IDMS-TRACEABLE CREATININE METHODS.https://jasn.asnjournals.org/content/early// ASN.6166611703 VITAMIN B12on 10-29-2022 Cobalamin (Vitamin B12) [Mass/Vol] 201 pg/mL Low 211 - 911 [facility] Comment on above: Performed By: #### V TB12 ####[address] [address] Vitamin B12, Serumon 023 Cobalamin (Vitamin B12) [Mass/Vol] 201 pg/mL below low threshold 211 - 911 [facility] Work Phone: [phone] PHQ-2 VITALSon 10-22-2022 Adult depression screening assessment No [facility] Work Phone: Fall risk assessment b) One or more fall s in the last year [facility] Work Phone: Tobacco use status [facility]PH[facility] b) No [facility] Work Phone: MAGNESIUMon 10-12-2022 Magnesium [Mass/Vol] 1.8 mg/dL Normal 1.8 - 2.4 [facility] Comment on above: Performed By: #### 2 38098 #### [facility],[address] [place] [address] CBC (NO DIFF)on 09-28-2022 CBC panel Auto (Bld) Normal [facility] Comment on above: Result Comment: CBC( WITHOUT DIFFERENTIAL) Performed By: #### 2 01133 #### [facility],[address] [place] [address] Erythrocyte distribution width (RBC) [Ratio] 24.9 % High 12.0 - 15.6 [facility] Comment on above: Performed By: #### 2 35943 #### [facility],[address] [place] [address] Hematocrit (Bld) [Volume fraction] 33.7 % Low 34.0 - 46.0 [facility] Comment on above: Performed By: #### 2 78668 #### [facility],[address] [place] [address] Hemoglobin (Bld) [Mass/Vol] 10.2 g/dL Low 12.0 - 16.0 [facility] Comment on above: Performed By: #### 2 75084 #### [facility],[address] [place], [place] [address] MCH (RBC) [Entitic mass] 25 pg Low 27 - 33 [facility] Comment on above: Performed By: #### 2 01899 #### [facility],[address] [place], [place] [address] MCHC 30 X10 3 Low 32 - 36 [facility] Comment on above: Performed By: #### 2 51122 #### [facility],[address] [place] [address] MCV (RBC) [Entitic vol] 82 fL Normal 80 - 99 [facility] Comment on above: Performed By: #### 2 10105 #### [facility],[address] [place] [address] PLATELET 367 x10EE3/UL Normal 150 - 450 [facility] Comment on above: Performed By: #### 2 53960 #### [facility],[address] [place] [address] Platelet mean volume (Bld) [Entitic vol] 7.9 fL Normal 6.6 - 10.5 [facility] Comment on above: Result Comment: {CB] Performed By: #### 2 26090 #### [facility],[address] [place] [address] RBC 4.13 x 10EE6/UL Normal 4.10 - 5.30 [facility] Comment on above: Performed By: #### 2 82658 #### [facility],[address] [place] [address] WBC 7.1 x 10EE3/UL Normal 4.5 - 10.8 [facility] Comment on above: Performed By: #### 2 49364 #### [facility],[address] [place] [address] CMP with eGFRon 09-28-2022 AGE 62 years Normal [facility] Comment on above: Performed By: #### 2 91278 #### [facility],[address] [place] [address] Albumin [Mass/Vol] 3.3 g/dL Low 3.4 - 5.0 [facility] Comment on above: Performed By: #### 2 35812 #### [facility],[address] [place], [place] [phone] Albumin/Globulin [Mass ratio] 1.0 {ratio} Normal 0.9 - 1.6 [facility] Comment on above: Performed By: #### 2 54367 #### [facility],[address] [place] [address] ALK PHOS 84 U/L Normal 46 - 116 [facility] Comment on above: Performed By: #### 2 85203 #### [facility],[address] [place] [address] ALT [Catalytic activity/Vol] 18 U/L Normal 14 - 59 [facility] Comment on above: Performed By: #### 2 53350 #### [facility],[address] [place] [address] Anion gap [Moles/Vol] 15 mmol/L Normal 10 - 20 [facility] Comment on above: Performed By: #### 2 89572 #### [facility],[address] [place] [address] AST [Catalytic activity/Vol] 23 U/L Normal 13 - 39 [facility] Comment on above: Performed By: #### 2 65353 #### [facility],[address] [place] [address] B/C RATIO 17 ratio Normal 0 - 30 [facility] Comment on above: Performed By: #### 2 59099 #### [facility],[address] [place], [place] [phone] Bilirubin [Mass/Vol] 1.1 mg/dL High 0.2 - 1.0 [facility] Comment on above: Performed By: #### 2 21718 #### [facility],[address] [place] [address] Calcium [Mass/Vol] 8.8 mg/dL Normal 8.5 - 10.1 [facility] Comment on above: Performed By: #### 2 16882 #### [facility],[address] [place], [place] [phone] Chloride [Moles/Vol] 97 mmol/L Low 98 - 107 [facility] Comment on above: Performed By: #### 2 58753 #### [facility],[address] [place] [address] CMP with eGFR Normal [facility] Comment on above: Result Comment: COMP REHENSIVE METABOLIC PANEL Performed By: #### 2 90589 #### [facility],[address] [place] [address] CO2 [Moles/Vol] 30.1 mmol/L Normal 21.0 - 32.0 [facility] Comment on above: Performed By: #### 2 82394 #### [facility],[address] [place] [address] Creatinine [Mass/Vol] 1.82 mg/dL High 0.55 - 1.02 [facility] Comment on above: Performed By: #### 2 90215 #### [facility],[address] [place] [address] eGFR 28 ML/MINUTE Low 60 - 999 [facility] Comment on above: Performed By: #### 2 23937 #### [facility],[address] [place] [address] eGFR(AA) 34 ML/MINUTE Low 60 - 999 [facility] Comment on above: Result Comment: ACCO RDING TO THE NATIONAL KIDNEY DISEASE EDUCATION PROGRAM(NKDE), A NORMAL eGFR IS A VALUE GREATER THAN OR EQUAL TO 60 ML/MIN/1.73 SQ METERS. CHRONIC KIDNEY DISEASE: <60mL/MIN/1.73 SQ METERS KIDNEY FAILURE: <15mL/MIN/1.73 SQ METERS THIS TEST SHOULD ONLY BE USED FOR PATIENTS 18 YEARS OF AGE AND OLDER. Performed By: #### 2 00053 #### [facility],[address] [place] [address] Globulin (S) [Mass/Vol] 3.3 g/dL Normal 1.5 - 3.8 [facility] Comment on above: Performed By: #### 2 16828 #### [facility],[address] [place] [address] Glucose [Mass/Vol] 108 mg/dL High 74 - 106 [facility] Comment on above: Performed By: #### 2 74948 #### [facility],[address] [place] [address] Potassium [Moles/Vol] 3.6 mmol/L Normal 3.5 - 5.1 [facility] Comment on above: Performed By: #### 2 15514 #### [facility],[address] [place] [address] Protein [Mass/Vol] 6.6 g/dL Normal 6.4 - 8.2 [facility] Comment on above: Performed By: #### 2 39856 #### [facility],[address] [place] [address] Sodium [Moles/Vol] 138 mmol/L Normal 136 - 145 [facility] Comment on above: Performed By: #### 2 80579 #### [facility],[address] [place] [address] Urea nitrogen [Mass/Vol] 31 mg/dL High 7 - 18 [facility] Comment on above: Performed By: #### 2 63960 #### [facility],[address] [place] [address] MAGNESIUMon 09-28-2022 Magnesium [Mass/Vol] 1.7 mg/dL Low 1.8 - 2.4 [facility] Comment on above: Performed By: #### 2 79893 #### [facility],[address] [place] [address] TSHon 09-28-2022 TSH Qn 3.15 m[IU]/L Normal 0.35 - 3.74 [facility] Comment on above: Performed By: #### 2 59665 #### [facility],[address] [place] [address] CBC + DIFFon 09-24-2022 Baso # 0.10 x10EE3/UL Normal 0.00 - 0.10 [facility] Comment on above: Performed By: #### 2 22185 #### [facility],[address] [place] [address] Basophils/100 WBC (Bld) 1.0 % Normal 0.0 - 2.0 [facility] Comment on above: Performed By: #### 2 48724 #### [facility],[address] [place] [address] CBC + DIFF Normal [facility] Comment on above: Result Comment: CBC- COMPLETE BLOOD COUNT Performed By: #### 2 97382 #### [facility],[address] [place] [address] EO # 0.10 x10EE3/UL Normal 0.00 - 0.50 [facility] Comment on above: Performed By: #### 2 69780 #### [facility],[address] [place], [place] [phone] Eosinophils/100 WBC (Bld) 2.3 % Normal 0.0 - 7.0 [facility] Comment on above: Performed By: #### 2 53689 #### [facility],[address] [place] [address] Erythrocyte distribution width (RBC) [Ratio] 24.9 % High 12.0 - 15.6 [facility] Comment on above: Performed By: #### 2 03362 #### [facility],[address] [place] [address] Hematocrit (Bld) [Volume fraction] 30.9 % Low 34.0 - 46.0 [facility] Comment on above: Performed By: #### 2 33837 #### [facility],[address] [place] [address] Hemoglobin (Bld) [Mass/Vol] 9.3 g/dL Low 12.0 - 16.0 [facility] Comment on above: Performed By: #### 2 91834 #### [facility],[address] [place] [address] Lymph # 1.30 x10EE3/UL Normal 0.80 - 2.80 [facility] Comment on above: Performed By: #### 2 54289 #### [facility],[address] [place] [address] Lymphocytes/100 WBC (Bld) 24.3 % Normal 20.0 - 45.0 [facility] Comment on above: Performed By: #### 2 15895 #### [facility],[address] [place] [address] MANUAL DIFF N/A Normal [facility] Comment on above: Performed By: #### 2 34929 #### [facility],[address] [place] [address] MCH (RBC) [Entitic mass] 24 pg Low 27 - 33 [facility] Comment on above: Performed By: #### 2 46132 #### [facility],[address] [place] [address] MCHC 30 X10 3 Low 32 - 36 [facility] Comment on above: Performed By: #### 2 11681 #### [facility],[address] [place] [address] MCV (RBC) [Entitic vol] 81 fL Normal 80 - 99 [facility] Comment on above: Performed By: #### 2 79314 #### [facility],[address] [place] [address] [place] # 0.90 x10EE3/UL Normal 0.20 - 1.00 [facility] Comment on above: Performed By: #### 2 66763 #### [facility],[address] [place] [address] MONOS % 15.9 % High 0.0 - 10.0 [facility] Comment on above: Performed By: #### 2 48828 #### [facility],[address] [place] [address] Morphology Temo (Bld) [Interp] N/A Normal [facility] Comment on above: Result Comment: {CD] Performed By: #### 2 41584 #### [facility],[address] [place] [address]693 Neut # 3.10 x10EE3/UL Normal 1.50 - 7.10 [facility] Comment on above: Performed By: #### 2 38210 #### [facility],[address] [place] [address] 23754 Neutrophils/100 WBC (Bld) 56.5 % Normal 46.0 - 76.0 [facility] Comment on above: Performed By: #### 2 13679 #### [facility],[address] [place] [address] PLATELET 308 x10EE3/UL Normal 150 - 450 [facility] Comment on above: Performed By: #### 2 85934 #### [facility],[address] [place] [address] 12842 Platelet mean volume (Bld) [Entitic vol] 8.0 fL Normal 6.6 - 10.5 [facility] Comment on above: Result Comment: AUTO MATED DIFFERENTIAL Performed By: #### 2 26495 #### [facility],[address] [place] [address]377 RBC 3.82 x 10EE6/UL Low 4.10 - 5.30 [facility] Comment on above: Performed By: #### 2 14011 #### [facility],[address] [place] [address]164 WBC 5.5 x 10EE3/UL Normal 4.5 - 10.8 [facility] Comment on above: Performed By: #### 2 63872 #### [facility],[address] [place] [address] CMP with eGFRon 09-24-2022 AGE 62 years Normal [facility] Comment on above: Performed By: #### 2 64563 #### [facility],[address] [place] [address]19 Albumin [Mass/Vol] 3.1 g/dL Low 3.4 - 5.0 [facility] Comment on above: Performed By: #### 2 23685 #### [facility],[address] [place] [address] Albumin/Globulin [Mass ratio] 0.9 {ratio} Normal 0.9 - 1.6 [facility] Comment on above: Performed By: #### 2 12282 #### [facility],[address] [place], [place] [phone] ALK PHOS 87 U/L Normal 46 - 116 [facility] Comment on above: Performed By: #### 2 42252 #### [facility],[address] [place], [place] [phone] ALT [Catalytic activity/Vol] 17 U/L Normal 14 - 59 [facility] Comment on above: Performed By: #### 2 52530 #### [facility],[address] [place] [address]483 Anion gap [Moles/Vol] 14 mmol/L Normal 10 - 20 [facility] Comment on above: Performed By: #### 2 60911 #### [facility],[address] [place] [address] 28707 AST [Catalytic activity/Vol] 25 U/L Normal 13 - 39 [facility] Comment on above: Performed By: #### 2 40145 #### [address] [address] B/C RATIO 20 ratio Normal 0 - 30 [facility] Comment on above: Performed By: #### 2 47389 #### [facility],[address] [place] [address]20 Bilirubin [Mass/Vol] 1.2 mg/dL High 0.2 - 1.0 [facility] Comment on above: Performed By: #### 2 21855 #### [facility],[address] [place] [address] Calcium [Mass/Vol] 9.0 mg/dL Normal 8.5 - 10.1 [facility] Comment on above: Performed By: #### 2 37313 #### [facility],[address] [place] [address] Chloride [Moles/Vol] 100 mmol/L Normal 98 - 107 [facility] Comment on above: Performed By: #### 2 71897 #### [facility],[address] [place] [address] CMP with eGFR Normal [facility] Comment on above: Result Comment: COMP REHENSIVE METABOLIC PANEL Performed By: #### 2 29275 #### [facility],[address] [place] [address] CO2 [Moles/Vol] 28.9 mmol/L Normal 21.0 - 32.0 [facility] Comment on above: Performed By: #### 2 48152 #### [facility],[address] [place], [place] [address] Creatinine [Mass/Vol] 1.79 mg/dL High 0.55 - 1.02 [facility] Comment on above: Performed By: #### 2 71272 #### [facility],[address] [place], [place] [phone] eGFR 29 ML/MINUTE Low 60 - 999 [facility] Comment on above: Performed By: #### 2 01192 #### [facility],[address] [place] [address]386 eGFR(AA) 35 ML/MINUTE Low 60 - 999 [facility] Comment on above: Result Comment: ACCO RDING TO THE NATIONAL KIDNEY DISEASE EDUCATION PROGRAM(NKDE), A NORMAL eGFR IS A VALUE GREATER THAN OR EQUAL TO 60 ML/MIN/1.73 SQ METERS. CHRONIC KIDNEY DISEASE: <60mL/MIN/1.73 SQ METERS KIDNEY FAILURE: <15mL/MIN/1.73 SQ METERS THIS TEST SHOULD ONLY BE USED FOR PATIENTS 18 YEARS OF AGE AND OLDER. Performed By: #### 2 29592 #### [facility],[address] [place] [address]201 Globulin (S) [Mass/Vol] 3.5 g/dL Normal 1.5 - 3.8 [facility] Comment on above: Performed By: #### 2 65736 #### [facility],[address] [place] [address] 97857 Glucose [Mass/Vol] 122 mg/dL High 74 - 106 [facility] Comment on above: Performed By: #### 2 04987 #### [facility],[address] [place] [address]3957 Potassium [Moles/Vol] 3.4 mmol/L Low 3.5 - 5.1 [facility] Comment on above: Performed By: #### 2 72630 #### [facility],[address] [place] [address] 25451 Protein [Mass/Vol] 6.6 g/dL Normal 6.4 - 8.2 [facility] Comment on above: Performed By: #### 2 22978 #### [facility],[address] [place] [address] 82873 Sodium [Moles/Vol] 139 mmol/L Normal 136 - 145 [facility] Comment on above: Performed By: #### 2 30074 #### [facility],[address] [place] [address] 52149 Urea nitrogen [Mass/Vol] 36 mg/dL High 7 - 18 [facility] Comment on above: Performed By: #### 2 13765 #### [facility],[address] [place] [address] 31588 CORONAVIRUS (SARS) ANTIGEN T ESTon 09-24-2022 EXTERNAL QC DONE? YES Normal [facility] Comment on above: Performed By: #### 2 73924 #### [facility],[address] [place] [address] 37867 INTERNAL CONTROL PASS Normal [facility] Comment on above: Performed By: #### 2 07768 #### [facility],[address] [place] [address],[facility] [address] SARS ANTIGEN Negative Normal NORMAL: NEGATIVE [facility] Comment on above: Performed By: #### 2 14343 #### [facility],[address] [place] [address],[facility] [address] SEND TO ? YES Normal [facility] Comment on above: Result Comment: SARS -CoV-2 THIS TEST IS BEING USED UNDER THE FDA EUA PROCEDURE. THIS ASSAY HAS BEEN VALIDATED AT [facility] FOR USE WITH NASAL AND NASOPHARYNGEAL SWAB SPECIMENS. INTERPRETIVE DATA TEST RESULTS SHOULD ALWAYS BE CONSIDERED IN THE CONTEXT OF CLINICAL OBSERVATIONS AND EPIDEMIOLOGICAL DATA IN MAKING FINAL DIAGNOSIS AND PATIENT MANAGEMENT DECISIONS. PATIENT MANAGEMENT SHOULD FOLLOW CURRENT CDC GUIDELINES. THE CHRIST SARS ANTIGEN GARY DOES NOT DIFFERENTIATE BETWEEN SARS-CoV & SARS-CoV-2. A POSITIVE TEST RESULT INDICATES THE PRESENCE OF SARS-CoV-2 NUCLEOCAPSID PROTEIN ANTIGEN, AND THE PATIENT IS INFECTED WITH THE VIRUS AND PRESUMED TO BE CONTAGIOUS. A NEGATIVE TEST RESULT FOR THIS TEST MEANS THAT SARS-CoV-2 NUCLEOCAPSID PROTEIN ANTIGEN WAS NOT PRESENT IN THE SPECIMEN ABOVE THE LIMIT OF DETECTION. HOWEVER, A NEGATIVE RESULT DOES NOT RULE OUT COVID-19 AND SHOULD NOT BE USED THE SOLE BASIS FOR TREATMENT OR PATIENT MANAGEMENT DECISIONS. A NEGATIVE RESULT DOES NOT EXCLUDE THE POSSIBILITY OF COVID-19. NEGATIVE RESULTS, FROM PATIENTS WITH SYMPTOM ONSET BEYOND FIVE DAYS, SHOULD BE TREATED PRESUMPTIVE AND CONFIRMATION WITH A MOLECULAR ASSAY, IF NECESSARY, FOR PATIENT MANAGEMENT, MAY BE PERFORMED. WHEN DIAGNOSTIC TESTING IS NEGATIVE, THE POSSIBLILTY OF A FALSE NEGATIVE RESULT SHOULD BE CONSIDERED IN THE CONTEXT OF A PATIENT'S RECENT EXPOSURES AND THE PRESENCE OF CLINICAL SIGNS AND SYMPTOMS CONSISTENT WITH COVID-19. THE POSSIBILITY OF A FALSE NEGATIVE RESULT SHOULD ESPECIALLY BE CONSIDERED IF THE PATIENT'S RECENT EXPOSURES OR CLINICAL PRESENTATION INDICATE THAT COVID-19 IS LIKELY, AND DIAGNOSTIC TESTS FOR OTHER CAUSES OF ILLNESS (e.g., OTHER RESPIRATORY ILLNESS) ARE NEGATIVE. IF COVID-19 IS STILL SUSPECTED BASED ON EXPOSURE HISTORY TOGETHER WITH OTHER CLINICAL FINDINGS, RE-TESTING SHOULD BE CONSIDERED BY HEALTHCARE PROVIDERS IN CONSULTATION WITH PUBLIC HEALTH AUTHORITIES. Performed By: #### 2 88072 #### [facility],[address] [place], [place] [id number] CV ECHO TEEon 09-24-2022 CV ECHO ROBERTO [address] [address] Patient: CAMILLE DAWKINS Phone#: : 1960 Age: 62 Gender: F Pt. Type: In Account: [id number] Location: [facility] [place] Ordering: VIVIAN BEE Exam Date: 09/24/2022/9:49 Family Phys: MARKELL FLAVIA Charge Code: 838163 Physician: [place] Order #: [id number] Dose#: PROCEDURE: TRANSESOPHAGEAL ECHOCARDIOGRAM COMPARISON: None. INDICATIONS: At. Fib. TECHNIQUE: A 2-D ultrasound and color spectral Doppler evaluation of the heart and great vessels utilizing transesophageal echocardiography. PATIENT MEASUREMENTS: Height (in.): 63 BSA: 1.94 Weight (lbs.): 201 BP: 105/58 Hoop Cutter: ROBERTO Probe passed: without difficulty. CONCLUSION: 1. Transesophageal echocardiogram study is limited but adequate 2. There is no left atrium or left atrial appendage thrombus seen. Left atrial appendage contractility is low normal. 3. Agitated saline did not show any [id number] shunt at rest 4. There is mild atherosclerosis seen Dictated by: VIVIAN BEE MD on 09/24/2022 at 11:47 Approved by: VIVIAN BEE MD on 09/24/2022 at 11:51 Normal [facility] MAGNESIUMon 09-24-2022 Magnesium [Mass/Vol] 1.8 mg/dL Normal 1.8 - 2.4 [facility] Comment on above: Performed By: #### 2 99298 #### [facility],[address] [place] [address] 67308 NT-proBNPon 09-24-2022 Natriuretic peptide B (Bld) [Mass/Vol] 7717 pg/mL High 0 - 125 [facility] Comment on above: Performed By: #### 2 87129 #### [facility],[address] [place], [place] [id number] ARTERIAL BLOOD GAS ANALYSISo n 09-23-2022 ALLENS TEST + Normal [facility] Comment on above: Result Comment: { TI ME CALLED 1128 Performed By: #### 2 17285 #### [facility],[address] [place] [address] ARTERIAL BLOOD GAS ANALYSIS Normal [facility] Comment on above: Result Comment: JESÚS RIAL BLOOD GAS Performed By: #### 2 76946 #### [facility],[address] [place] [address] BE 4 High -2 - 3 [facility] Comment on above: Performed By: #### 2 71891 #### [facility],[address] [place], [place] [phone] HCO3 (Bld) [Moles/Vol] 28 mmol/L High 20 - 24 [facility] Comment on above: Performed By: #### 2 75386 #### [facility],[address] [place] [address] 93503 Heart rate 90 /min Normal [facility] Comment on above: Performed By: #### 2 27821 #### [facility],[address] [place] [address] 30737 MODALITY RA Normal [facility] Comment on above: Performed By: #### 2 40599 #### [facility],[address] [place] [address] 49234 PCO2 41 mm Hg Normal 35 - 45 [facility] Comment on above: Performed By: #### 2 07132 #### [facility],[address] [place] [address] 71806 pH (Bld) 7.44 [pH] Normal 7.35 - 7.45 [facility] Comment on above: Performed By: #### 2 35056 #### [facility],[address] [place] [address] 73021 PO2 73 mm Hg Low 80 - 105 [facility] Comment on above: Performed By: #### 2 50718 #### [facility],[address] [place], [place] [id number] SAMPLE SITE R Radial Normal [facility] Comment on above: Performed By: #### 2 43502 #### [facility],[address] [place], [place] [id number] SaO2 95 Normal 95 - 98 [facility] Comment on above: Result Comment: TIME RESULT CALLED _1128 09/23/22.1127.ZSK. { FIO2/LPM RA Performed By: #### 2 31302 #### [facility],[address] [place] [address] SPO2 Normal [facility] Comment on above: Performed By: #### 2 26710 #### [facility],[address] [place], [place] [phone] TOTAL RR 18 Normal [facility] Comment on above: Performed By: #### 2 96704 #### [facility],[address] [place], [place] [phone] VENT N/A Normal [facility] Comment on above: Performed By: #### 2 07912 #### [facility],[address] [place], [place] [phone] BMP with eGFRon 09-23-2022 AGE 62 years Normal [facility] Comment on above: Performed By: #### 2 61464 #### [facility],[address] [place], [place] [phone] Anion gap [Moles/Vol] 17 mmol/L Normal - [facility] Comment on above: Performed By: #### 2 21620 #### [facility],[address] [place], [place] [phone] BMP with eGFR Normal [facility] Comment on above: Result Comment: BASI C METABOLIC PANEL Performed By: #### 2 83525 #### [facility],[address] [place] [address] Calcium [Mass/Vol] 9.1 mg/dL Normal 8.5 - 10.1 [facility] Comment on above: Performed By: #### 2 63663 #### [facility],[address] [place] [address] Chloride [Moles/Vol] 101 mmol/L Normal 98 - 107 [facility] Comment on above: Performed By: #### 2 77485 #### [facility],[address] [place] [address] CO2 [Moles/Vol] 25.9 mmol/L Normal 21.0 - 32.0 [facility] Comment on above: Performed By: #### 2 08290 #### [facility],[address] [place] [address] Creatinine [Mass/Vol] 1.81 mg/dL High 0.55 - 1.02 [facility] Comment on above: Performed By: #### 2 07905 #### [place] [address] eGFR 28 ML/MINUTE Low 60 - 999 [facility] Comment on above: Performed By: #### 2 07640 #### [place] [address] eGFR(AA) 34 ML/MINUTE Low 60 - 999 [facility] Comment on above: Result Comment: ACCO RDING TO THE NATIONAL KIDNEY DISEASE EDUCATION PROGRAM(NKDE), A NORMAL eGFR IS A VALUE GREATER THAN OR EQUAL TO 60 ML/MIN/1.73 SQ METERS. CHRONIC KIDNEY DISEASE: <60mL/MIN/1.73 SQ METERS KIDNEY FAILURE: <15mL/MIN/1.73 SQ METERS THIS TEST SHOULD ONLY BE USED FOR PATIENTS 18 YEARS OF AGE AND OLDER. Performed By: #### 2 63910 #### [facility],[address] [place], [place] [address] Glucose [Mass/Vol] 67 mg/dL Low 74 - 106 [facility] Comment on above: Performed By: #### 2 87689 #### [facility],[address] [place] [address] 59201 Potassium [Moles/Vol] 3.6 mmol/L Normal 3.5 - 5.1 [facility] Comment on above: Performed By: #### 2 60380 #### [facility],[address] [place] [address] 73793 Sodium [Moles/Vol] 140 mmol/L Normal 136 - 145 [facility] Comment on above: Performed By: #### 2 59998 #### [facility],[address] [place] [address] 20068 Urea nitrogen [Mass/Vol] 37 mg/dL High 7 - 18 [facility] Comment on above: Performed By: #### 2 64332 #### [facility],[address] [place] [address] 66196 CBC + DIFFon 09-23-2022 Baso # 0.10 x10EE3/UL Normal 0.00 - 0.10 [facility] Comment on above: Performed By: #### 2 92870 #### [facility],[address] [place] [address] 48485 Basophils/100 WBC (Bld) 1.2 % Normal 0.0 - 2.0 [facility] Comment on above: Performed By: #### 2 49534 #### [facility],[address] [place] [address] 36000 CBC + DIFF Normal [facility] Comment on above: Result Comment: CBC- COMPLETE BLOOD COUNT Performed By: #### 2 23292 #### [facility],[address] [place] [address] 47074 EO # 0.10 x10EE3/UL Normal 0.00 - 0.50 [facility] Comment on above: Performed By: #### 2 66369 #### [facility],[address] [place] [address] 34865 Eosinophils/100 WBC (Bld) 1.7 % Normal 0.0 - 7.0 [facility] Comment on above: Performed By: #### 2 27228 #### [facility],[address] [place], [place] [phone] Erythrocyte distribution width (RBC) [Ratio] 24.7 % High 12.0 - 15.6 [facility] Comment on above: Performed By: #### 2 38755 #### [facility],[address] [place] [address] Hematocrit (Bld) [Volume fraction] 31.4 % Low 34.0 - 46.0 [facility] Comment on above: Performed By: #### 2 52348 #### [facility],[address] [place] [address] Hemoglobin (Bld) [Mass/Vol] 9.7 g/dL Low 12.0 - 16.0 [facility] Comment on above: Performed By: #### 2 27011 #### [facility],[address] [place], [place] [phone] Lymph # 1.80 x10EE3/UL Normal 0.80 - 2.80 [facility] Comment on above: Performed By: #### 2 74795 #### [facility],[address] [place], [place] [phone] Lymphocytes/100 WBC (Bld) 29.5 % Normal 20.0 - 45.0 [facility] Comment on above: Performed By: #### 2 10869 #### [address] [address] MANUAL DIFF N/A Normal [facility] Comment on above: Performed By: #### 2 52486 #### [facility],[address] [place], [place] [phone] MCH (RBC) [Entitic mass] 25 pg Low 27 - 33 [facility] Comment on above: Performed By: #### 2 11085 #### [facility],[address] [place] [address] MCHC 31 X10 3 Low 32 - 36 [facility] Comment on above: Performed By: #### 2 02289 #### [facility],[address] [place], [place] [phone] MCV (RBC) [Entitic vol] 81 fL Normal 80 - 99 [facility] Comment on above: Performed By: #### 2 27730 #### [facility],[address] [place] [address] Maui # 0.70 x10EE3/UL Normal 0.20 - 1.00 [facility] Comment on above: Performed By: #### 2 51554 #### [facility],[address] [place] [address] MONOS % 11.5 % High 0.0 - 10.0 [facility] Comment on above: Performed By: #### 2 97859 #### [facility],[address] [place], [place] [phone] Morphology Temo (Bld) [Interp] N/A Normal [facility] Comment on above: Result Comment: {CD] Performed By: #### 2 83115 #### [facility],[address] [place] [address] Neut # 3.50 x10EE3/UL Normal 1.50 - 7.10 [facility] Comment on above: Performed By: #### 2 81599 #### [facility],[address] [place] [address] 06626 Neutrophils/100 WBC (Bld) 56.1 % Normal 46.0 - 76.0 [facility] Comment on above: Performed By: #### 2 92652 #### [facility],[address] [place] [address] PLATELET 308 x10EE3/UL Normal 150 - 450 [facility] Comment on above: Performed By: #### 2 05580 #### [facility],[address] [place] [address] Platelet mean volume (Bld) [Entitic vol] 8.1 fL Normal 6.6 - 10.5 [facility] Comment on above: Result Comment: AUTO MATED DIFFERENTIAL Performed By: #### 2 70651 #### [facility],[address] [place] [address] RBC 3.88 x 10EE6/UL Low 4.10 - 5.30 [facility] Comment on above: Performed By: #### 2 75000 #### [facility],[address] [place] [address] WBC 6.3 x 10EE3/UL Normal 4.5 - 10.8 [facility] Comment on above: Performed By: #### 2 09753 #### [facility],[address] [place] [address] NT-proBNPon 09-23-2022 Natriuretic peptide B (Bld) [Mass/Vol] 82177 pg/mL High 0 - 125 [facility] Comment on above: Performed By: #### 2 93392 #### [facility],[address] [place] [address] BMP with eGFRon 09-22-2022 AGE 62 years Normal [facility] Comment on above: Performed By: #### 2 92250 #### [facility],[address] [place] [address] Anion gap [Moles/Vol] 15 mmol/L Normal 10 - 20 [facility] Comment on above: Performed By: #### 2 55423 #### [facility],[address] [place], [place] [phone] BMP with eGFR Normal [facility] Comment on above: Result Comment: BASI C METABOLIC PANEL Performed By: #### 2 73397 #### [facility],[address] [place], [place] [phone] Calcium [Mass/Vol] 9.2 mg/dL Normal 8.5 - 10.1 [facility] Comment on above: Performed By: #### 2 30962 #### [facility],[address] [place], [place] [phone] Chloride [Moles/Vol] 100 mmol/L Normal 98 - 107 [facility] Comment on above: Performed By: #### 2 25275 #### [facility],[address] [place] [address] 20566 CO2 [Moles/Vol] 28.2 mmol/L Normal 21.0 - 32.0 [facility] Comment on above: Performed By: #### 2 56515 #### [facility],[address] [place] [address] 89967 Creatinine [Mass/Vol] 1.67 mg/dL High 0.55 - 1.02 [facility] Comment on above: Performed By: #### 2 80846 #### [facility],[address] [place] [address] 08292 eGFR 31 ML/MINUTE Low 60 - 999 [facility] Comment on above: Performed By: #### 2 98460 #### [facility],[address] [place] [address] 59748 eGFR(AA) 38 ML/MINUTE Low 60 - 999 [facility] Comment on above: Result Comment: ACCO RDING TO THE NATIONAL KIDNEY DISEASE EDUCATION PROGRAM(NKDE), A NORMAL eGFR IS A VALUE GREATER THAN OR EQUAL TO 60 ML/MIN/1.73 SQ METERS. CHRONIC KIDNEY DISEASE: <60mL/MIN/1.73 SQ METERS KIDNEY FAILURE: <15mL/MIN/1.73 SQ METERS THIS TEST SHOULD ONLY BE USED FOR PATIENTS 18 YEARS OF AGE AND OLDER. Performed By: #### 2 37492 #### [facility],[address] [place] [address] 25808 Glucose [Mass/Vol] 68 mg/dL Low 74 - 106 [facility] Comment on above: Performed By: #### 2 17639 #### [facility],[address] [place] [address] 50152 Potassium [Moles/Vol] 3.9 mmol/L Normal 3.5 - 5.1 [facility] Comment on above: Performed By: #### 2 35527 #### [facility],[address] [place] [address] 51442 Sodium [Moles/Vol] 139 mmol/L Normal 136 - 145 [facility] Comment on above: Performed By: #### 2 62709 #### [facility],[address] [place] [address] Urea nitrogen [Mass/Vol] 33 mg/dL High 7 - 18 [facility] Comment on above: Performed By: #### 2 82232 #### [facility],[address] [place] [address] CBC + DIFFon 09-22-2022 Baso # 0.10 x10EE3/UL Normal 0.00 - 0.10 [facility] Comment on above: Performed By: #### 2 76091 #### [facility],[address] [place] [address] 92683 Basophils/100 WBC (Bld) 1.5 % Normal 0.0 - 2.0 [facility] Comment on above: Performed By: #### 2 29911 #### [facility],[address] [place] [address] 34677 CBC + DIFF Normal [facility] Comment on above: Result Comment: CBC- COMPLETE BLOOD COUNT Performed By: #### 2 15489 #### [facility],[address] [place] [address] 13587 EO # 0.00 x10EE3/UL Normal 0.00 - 0.50 [facility] Comment on above: Performed By: #### 2 72661 #### [facility],[address] [place] [address] 41122 Eosinophils/100 WBC (Bld) 0.6 % Normal 0.0 - 7.0 [facility] Comment on above: Performed By: #### 2 40721 #### [facility],[address] [place] [address] Erythrocyte distribution width (RBC) [Ratio] 24.6 % High 12.0 - 15.6 [facility] Comment on above: Performed By: #### 2 88890 #### [facility],[address] [place] [address] Hematocrit (Bld) [Volume fraction] 33.6 % Low 34.0 - 46.0 [facility] Comment on above: Performed By: #### 2 58340 #### [facility],[address] [place] [address] Hemoglobin (Bld) [Mass/Vol] 10.3 g/dL Low 12.0 - 16.0 [facility] Comment on above: Performed By: #### 2 25109 #### [facility],[address] [place] [address] Lymph # 2.10 x10EE3/UL Normal 0.80 - 2.80 [facility] Comment on above: Performed By: #### 2 11822 #### [facility],[address] [place] [address] Lymphocytes/100 WBC (Bld) 27.8 % Normal 20.0 - 45.0 [facility] Comment on above: Performed By: #### 2 08361 #### [facility],[address] [place] [address] MANUAL DIFF N/A Normal [facility] Comment on above: Performed By: #### 2 21757 #### [facility],[address] [place] [address] MCH (RBC) [Entitic mass] 25 pg Low 27 - 33 [facility] Comment on above: Performed By: #### 2 14968 #### [facility],[address] [place] [address] MCHC 31 X10 3 Low 32 - 36 [facility] Comment on above: Performed By: #### 2 16757 #### [facility],[address] [place] [address] MCV (RBC) [Entitic vol] 81 fL Normal 80 - 99 [facility] Comment on above: Performed By: #### 2 07071 #### [facility],[address] [place] [address] Maui # 0.80 x10EE3/UL Normal 0.20 - 1.00 [facility] Comment on above: Performed By: #### 2 85707 #### [facility],[address] [place] [address] MONOS % 10.6 % High 0.0 - 10.0 [facility] Comment on above: Performed By: #### 2 39738 #### [facility],[address] [place] [address] Morphology Temo (Bld) [Interp] N/A Normal [facility] Comment on above: Result Comment: {CD] Performed By: #### 2 68421 #### [facility],[address] [place] [address] Neut # 4.50 x10EE3/UL Normal 1.50 - 7.10 [facility] Comment on above: Performed By: #### 2 56912 #### [facility],[address] [place] [address] Neutrophils/100 WBC (Bld) 59.5 % Normal 46.0 - 76.0 [facility] Comment on above: Performed By: #### 2 45269 #### [facility],[address] [place] [address] PLATELET 326 x10EE3/UL Normal 150 - 450 [facility] Comment on above: Performed By: #### 2 27404 #### [facility],[address] [place] [address] Platelet mean volume (Bld) [Entitic vol] 8.2 fL Normal 6.6 - 10.5 [facility] Comment on above: Result Comment: AUTO MATED DIFFERENTIAL Performed By: #### 2 02743 #### [facility],[address] [place] [address] RBC 4.15 x 10EE6/UL Normal 4.10 - 5.30 [facility] Comment on above: Performed By: #### 2 98192 #### [facility],[address] [place] [address] WBC 7.6 x 10EE3/UL Normal 4.5 - 10.8 [facility] Comment on above: Performed By: #### 2 43499 #### [place] [address] MAGNESIUMon 09-22-2022 Magnesium [Mass/Vol] 1.8 mg/dL Normal 1.8 - 2.4 [facility] Comment on above: Performed By: #### 2 76174 #### [facility],[address] [place] [address] NT-proBNPon 09-22-2022 Natriuretic peptide B (Bld) [Mass/Vol] 02035 pg/mL High 0 - 125 [facility] Comment on above: Performed By: #### 2 35376 #### [facility],[address] [place] [address] EMERGENCY REPORTon 3 EMERGENCY REPORT [facility] EMERGENCY ROOM REPORT NAME ACCOUNT SEX AGE ADMIT DISCHARGE PT MED. RECORD# NUMBER DATE DATE TYPE CAMILLE DAWKINS [id number] F 62 09/18/22 1 [id number] ROOM: 303MO DATE OF : 1960 DICTATING PHYSICIAN: Irma Che HISTORY OF PRESENT ILLNESS: The patient came in complaining of shortness of breath. She has had a lot of medical issues. The past couple of months she has had a stroke, which left her with left-sided weakness. She just went to the [facility] yesterday. She came to the emergency department on July 05 with atrial fibrillation with generalized malaise. She then was found to be in atrial fibrillation with RVR. Plus her COVID-19 test was positive. She has had a heart catheterization, which was unremarkable. She has been compliant with her medications. She was admitted to [facility] on September 10 with atelectasis versus infiltrates. She had a small right effusion. She had atrial fibrillation with RVR and congestive heart failure. Today, the patient was tired. She got short of breath. She denies any chest pain. No nausea or vomiting. She just felt very tired and short of breath. She presented to the emergency department by EMS. Also, her heart was going faster than normal. It was 120, but the [facility]. However, here it has been in about the 100 range. PAST MEDICAL HISTORY: She has a history of atrial fibrillation with RVR, which she is on anticoagulation. She has cardiomyopathy. She has had COVID-19. She also has a history of diabetes, normocytic anemia, and stage III kidney disease. She has had DVT's and is on Eliquis. 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 She has kidney disease, diabetes, and hypertension. She also has anxiety and depression, chronic migraines, and I suspect she has sleep apnea. PHYSICAL EXAMINATION: HEENT: Head is normocephalic and atraumatic. Eyes: Pupils are equal, round, and reactive to light. Nares are patent. She has what looks like dry oral mucosa. She has dry skin. HEART: Heart is regular rate and rhythm without murmur. She does have wheezing. She was tachypneic when she came in, tachycardic. ABDOMEN: Abdomen is soft, nontender, and nondistended. SKIN: Skin is warm and dry. NEUROLOGIC: She has left-sided weakness because of her stroke. She also has bruising on her extremities. She is on blood thinners. She is awake, alert, oriented, and in no acute distress. DIAGNOSTIC DATA: Her EKG shows a rate of 106, left axis deviation, irregularly irregular consistent with atrial fibrillation. I see no obvious ST elevation or depression. Her white count is 6000, H&H 9.7 and 31, and platelet count 266,000. Chemistries show a BUN of 30, creatinine 1.6. Glucose is 121. Her BNP is 21,266, which is elevated compared to previous. Her influenza was negative. Her COVID-19 test was negative. Page 1 of 2 [facility] Emergency Room Report CAMILLE DAWKINS : 1960 [address] a PCR COVID-19 test in. Her chest x-ray is consistent with CHF. EMERGENCY DEPARTMENT COURSE AND TREATMENT: She was given 40 mg of Lasix. She was also given a breathing treatment when she came in. DIAGNOSES: 1. Shortness of breath, suspect congestive heart failure, as well as recent cerebrovascular accident. 2. Atrial fibrillation with rapid ventricular response and anticoagulated. 3. Generalized weakness. PLAN/DISPOSITION: Critical Care time was 35 minutes excluding billable procedures. Dictated By: Irma Che DO 09/18/22 19:27 JOB #: [id number] Transcribed By: rainer 09/20/22 11:37 Electronically signed by: NANCY Che DO 09/21/22 07:14 Page 2 of 2 CAMILLE DAWKINS Emergency Room Report Normal [facility] HGB A1C [CCL]on 09-21-2022 HbA1c (Bld) [Mass fraction] 7.6 % High 4.3-5.6 [facility] Comment on above: Result Comment: Amer ican Diabetes Association guidelines indicate that patients with HgbA1c in the range 5.7-6.4% are at increased risk for development of diabetes, and intervention by lifestyle modification may be beneficial. HgbA1c greater or equal to 6.5% is considered diagnostic of diabetes. Performed By: #### 2 91291 #### [facility],[address] [place] [address] Hemoglobin A0 171 mg/dL Normal [facility] Comment on above: Result Comment: eAG: (Estimated average glucose) is a calculated value from HgbA1c and is petroleum products sales representative of the average blood glucose level in the last 2-3 month period. [facility] [employer] [facility] [place] [address] Ryan Matson III, M.D. [id number] Performed By: #### 2 82449 #### [facility],[address] [place] [address] 21643 CBC + DIFFon 09-20-2022 Baso # 0.10 x10EE3/UL Normal 0.00 - 0.10 [facility] Comment on above: Performed By: #### 2 60872 #### [facility],[address] [place] [address] 04253 Basophils/100 WBC (Bld) 0.9 % Normal 0.0 - 2.0 [facility] Comment on above: Performed By: #### 2 98842 #### [facility],[address] [place] [address] 85257 CBC + DIFF Normal [facility] Comment on above: Result Comment: CBC- COMPLETE BLOOD COUNT Performed By: #### 2 29520 #### [facility],[address] [place] [address] 07325 EO # 0.10 x10EE3/UL Normal 0.00 - 0.50 [facility] Comment on above: Performed By: #### 2 55529 #### [facility],[address] [place] [address] 57135 Eosinophils/100 WBC (Bld) 2.0 % Normal 0.0 - 7.0 [facility] Comment on above: Performed By: #### 2 05865 #### [facility],[address] [place] [address] 86072 Erythrocyte distribution width (RBC) [Ratio] 23.1 % High 12.0 - 15.6 [facility] Comment on above: Performed By: #### 2 82353 #### [facility],[address] [place] [address] 49051 Hematocrit (Bld) [Volume fraction] 29.8 % Low 34.0 - 46.0 [facility] Comment on above: Performed By: #### 2 80944 #### [facility],[address] [place] [address] 99071 Hemoglobin (Bld) [Mass/Vol] 9.3 g/dL Low 12.0 - 16.0 [facility] Comment on above: Performed By: #### 2 99314 #### [facility],[address] [place] [address] Lymph # 1.90 x10EE3/UL Normal 0.80 - 2.80 [facility] Comment on above: Performed By: #### 2 67304 #### [facility],[address] [place] [address] Lymphocytes/100 WBC (Bld) 26.9 % Normal 20.0 - 45.0 [facility] Comment on above: Performed By: #### 2 76478 #### [facility],[address] [place] [address] MANUAL DIFF N/A Normal [facility] Comment on above: Performed By: #### 2 48294 #### [facility],[address] [place] [address] MCH (RBC) [Entitic mass] 25 pg Low 27 - 33 [facility] Comment on above: Performed By: #### 2 47746 #### [place] [address] MCHC 31 X10 3 Low 32 - 36 [facility] Comment on above: Performed By: #### 2 85030 #### [facility],[address] [place] [address] MCV (RBC) [Entitic vol] 80 fL Normal 80 - 99 [facility] Comment on above: Performed By: #### 2 22912 #### [place] [address] [place] # 0.80 x10EE3/UL Normal 0.20 - 1.00 [facility] Comment on above: Performed By: #### 2 52537 #### [facility],[address] [place] [address] MONOS % 11.8 % High 0.0 - 10.0 [facility] Comment on above: Performed By: #### 2 05941 #### [facility],[address] [place] [address] 51452 Morphology Temo (Bld) [Interp] N/A Normal [facility] Comment on above: Result Comment: {CD] Performed By: #### 2 68992 #### [facility],[address] [place], [place] [phone] Neut # 4.10 x10EE3/UL Normal 1.50 - 7.10 [facility] Comment on above: Performed By: #### 2 49095 #### [address] [address] Neutrophils/100 WBC (Bld) 58.4 % Normal 46.0 - 76.0 [facility] Comment on above: Performed By: #### 2 88678 #### [facility],[address] [place], [place] [phone] PLATELET 260 x10EE3/UL Normal 150 - 450 [facility] Comment on above: Performed By: #### 2 24902 #### [place] [id number] Platelet mean volume (Bld) [Entitic vol] 8.1 fL Normal 6.6 - 10.5 [facility] Comment on above: Result Comment: AUTO MATED DIFFERENTIAL Performed By: #### 2 26696 #### [address] [address] RBC 3.72 x 10EE6/UL Low 4.10 - 5.30 [facility] Comment on above: Performed By: #### 2 65915 #### [facility],[address] [place] [address] 97271 WBC 7.1 x 10EE3/UL Normal 4.5 - 10.8 [facility] Comment on above: Performed By: #### 2 80511 #### [facility] [place] [address] 12608 CMP with eGFRon 09-20-2022 AGE 62 years Normal [facility] Comment on above: Performed By: #### 2 81586 #### [facility],[address] [place] [address] 60112 Albumin [Mass/Vol] 3.1 g/dL Low 3.4 - 5.0 [facility] Comment on above: Performed By: #### 2 79625 #### [facility],[address] [place] [address] 67526 Albumin/Globulin [Mass ratio] 0.9 {ratio} Normal 0.9 - 1.6 [facility] Comment on above: Performed By: #### 2 74853 #### [facility],[address] [place] [address] 44330 ALK PHOS 91 U/L Normal 46 - 116 [facility] Comment on above: Performed By: #### 2 40396 #### [facility],[address] [place] [address] 33148 ALT [Catalytic activity/Vol] 21 U/L Normal 14 - 59 [facility] Comment on above: Performed By: #### 2 29345 #### [facility],[address] [place] [address] 99275 Anion gap [Moles/Vol] 13 mmol/L Normal 10 - 20 [facility] Comment on above: Performed By: #### 2 19407 #### [facility],[address] [place] [address] 59487 AST [Catalytic activity/Vol] 20 U/L Normal 13 - 39 [facility] Comment on above: Performed By: #### 2 97779 #### [facility],[address] [place] [address] 79809 B/C RATIO 18 ratio Normal 0 - 30 [facility] Comment on above: Performed By: #### 2 65783 #### [facility],[address] [place] [address] 62706 Bilirubin [Mass/Vol] 0.9 mg/dL Normal 0.2 - 1.0 [facility] Comment on above: Performed By: #### 2 21916 #### [facility],[address] [place] [address] 64873 Calcium [Mass/Vol] 8.6 mg/dL Normal 8.5 - 10.1 [facility] Comment on above: Performed By: #### 2 33655 #### [facility],[address] [place] [address] 05274 Chloride [Moles/Vol] 101 mmol/L Normal 98 - 107 [facility] Comment on above: Performed By: #### 2 37449 #### [facility],[address] [place] [address] 02194 CMP with eGFR Normal [facility] Comment on above: Result Comment: COMP REHENSIVE METABOLIC PANEL Performed By: #### 2 43315 #### [facility],[address] [place] [address] 46759 CO2 [Moles/Vol] 27.9 mmol/L Normal 21.0 - 32.0 [facility] Comment on above: Performed By: #### 2 02846 #### [facility],[address] [place] [address] 81173 Creatinine [Mass/Vol] 1.73 mg/dL High 0.55 - 1.02 [facility] Comment on above: Performed By: #### 2 68451 #### [facility],[address] [place] [address] 96917 eGFR 30 ML/MINUTE Low 60 - 999 [facility] Comment on above: Performed By: #### 2 38107 #### [facility],[address] [place] [address] 86666 eGFR(AA) 36 ML/MINUTE Low 60 - 999 [facility] Comment on above: Result Comment: ACCO RDING TO THE NATIONAL KIDNEY DISEASE EDUCATION PROGRAM(NKDE), A NORMAL eGFR IS A VALUE GREATER THAN OR EQUAL TO 60 ML/MIN/1.73 SQ METERS. CHRONIC KIDNEY DISEASE: <60mL/MIN/1.73 SQ METERS KIDNEY FAILURE: <15mL/MIN/1.73 SQ METERS THIS TEST SHOULD ONLY BE USED FOR PATIENTS 18 YEARS OF AGE AND OLDER. Performed By: #### 2 12589 #### [address] [address] Globulin (S) [Mass/Vol] 3.4 g/dL Normal 1.5 - 3.8 [facility] Comment on above: Performed By: #### 2 07933 #### [address] [address] Glucose [Mass/Vol] 118 mg/dL High 74 - 106 [facility] Comment on above: Performed By: #### 2 46116 #### [address] [address] Potassium [Moles/Vol] 3.6 mmol/L Normal 3.5 - 5.1 [facility] Comment on above: Performed By: #### 2 41099 #### [address] [address] Protein [Mass/Vol] 6.5 g/dL Normal 6.4 - 8.2 [facility] Comment on above: Performed By: #### 2 70325 #### [address] [address] Sodium [Moles/Vol] 138 mmol/L Normal 136 - 145 [facility] Comment on above: Performed By: #### 2 50253 #### [address] [address] Urea nitrogen [Mass/Vol] 31 mg/dL High 7 - 18 [facility] Comment on above: Performed By: #### 2 86631 #### [address] [address] CV ECHO COMPLETEon 3 CV ECHO COMPLETE [address] [address] Patient: CAMILLE DAWKINS Phone#: : 1960 Age: 62 Gender: F Pt. Type: Out Account: [id number] Location: 010 [facility] Ex[facility] Date: 09/20/20227:31 Family Phys: Charge Code: [id number] Physician: [place] Order #: [id number] Dose#: PROCEDURE: ECHOCARDIOGRAM WITH DOPPLER AND COLOR FLOW HISTORY: Patient is a 62-year-old female with CHF INDICATIONS: CHF COMPARISON: None. TECHNIQUE: A 2-D ultrasound, color spectral Doppler and M-mode evaluation of the heart and great vessels. PATIENT MEASUREMENTS: Height (in.): 63 BSA: 2.03 Weight (lbs.): 204 BP: 88/69 Hoop Cutter: M MODE 2D MEASUREMENTS AND CALCULATIONS: LVIDd: 5.06 cm LVIDs: 4.62 cm IVSd: 0.9 cm LVPWd: 1.0 cm LVOT diam: 2.02 cm FS: 8.70 % Ao Root diam: 3.41 cm LA diam: 4.1 cm LA Volume Index: 38 mL LA A4 Area: 22.36 cm2 RA A4 Area: 18 cm2 RVDd: 4.50 cm TAPSE: DOPPLER MEASUREMENTS AND CALCULATIONS MITRAL MV E MAX rayo: 0.78 m/s MVA VTI 1.10 cm2 MV V2 max: 0.99 m/s MV max P.91 mm[Hg] MV V2 mean: 0.58 m/s MV mean P.61 mm[Hg] MV V2 VTI: 23.23 cm Continued Report - Page 2 of 3 Patient: CAMILLE DAWKINS Phone#: : 1960 Age: 62 Gender: F Pt. Type: Out Account: [id number] Location: 010 Ordering: [facility] Exam Date: 09/20/2022/7:31 Family Phys: Charge Code: [id number] Physician: [place] Order #: [id number] Dose#: MV PHT: 59.72 ms MVA PHT 3.68 cm2 ERO: 0.06 cm2 Reg Vol 6.76 ml Lat Peak E' Rayo 8 cm/sec Septal Peak E' RAYO 4 cm/sec E/E' lateral 10 E/E' medial 19 AORTIC Ao V2 max: 1.16 m/s Ao max P.48 mm[Hg] Ao V2 mean: 0.85 m/s Ao mean P.32 mm[Hg] Ao V2 VTI: 19.21 cm SAMI (V Max): 1.41 cm2 SAMI (VTI): 1.33 cm2 LV V1 Max 0.51 m/s LV V1 Max PG 1.04 mm[Hg] LV V1 Mean PG 0.62 mm[Hg] LV V1 mean 0.37 m/s LV V1 VTI 7.97 cm PULMONIC PA V2 Max 0.51 m/s PA Max PG 1.05 mm[Hg] TRICUSPID TR Max Rayo 2.41 m/s TR max PG 23.46 mm[Hg] RVSP 38 mm Hg 2D/M-MODE AND COLOR FLOW LEFT VENTRICLE: Left ventricle is normal in size and thickness. Systolic ejection fraction is 25-30% with diffuse hypokinesis the left ventricle. WALL MOTION: 1 - Basal anterior: Hypokinetic. 7 - Mid anterior: Hypokinetic. 13 - Apical anterior: Hypokinetic. 2 - Basal anteroseptal: Hypokinetic. 8 - Mid anteroseptal: Hypokinetic. 14 - Apical septal: Hypokinetic. 3 - Basal inferoseptal: Hypokinetic. 9 - Mid inferoseptal: Hypokinetic. 15 - Apical inferior: Hypokinetic. 4 - Basal inferior: Hypokinetic. 10-Mid inferior: Hypokinetic. 16 - Apical lateral: Hypokinetic. 5 - Basal inferolateral: Hypokinetic. 11-Mid inferolateral: Hypokinetic. 6 - Basal anterolateral: Hypokinetic. 12-Mid anterolateral: Hypokinetic. RIGHT VENTRICLE: Right ventricle is normal in size with mildly reduced systolic function Continued Report - Page 3 of 3 Patient: CAMILLE DAWKINS Phone#: : 1960 Age: 62 Gender: F Pt. Type: Out Account: [id number] Location: [facility] [place]ing: MARKELL FRANKLIN Exam Date: 09/20/2022/7:31 Family Phys: Charge Code: [id number] Physician: [place] Order #: [id number] Dose#: LEFT ATRIUM: Left atrium is mildly enlarged RIGHT ATRIUM: Right atrium is normal in size ATRIAL SEPTUM: No large interatrial shunt seen. PFO was not assessed. MITRAL VALVE: Mitral valve appears normal in structure. There is mild to moderate regurgitation and no stenosis. TRICUSPID VALVE: Tricuspid appears normal in structure. Moderate valve regurgitation no stenosis seen AORTIC VALVE: Aortic valve is trileaflet mild sclerosis. There is no regurgitation or stenosis seen PULMONIC VALVE: Pulmonic valve appears normal in structure. There is trivial regurgitation no stenosis seen AORTIC ROOT: Aortic root is normal in size AORTIC ARCH: Aortic arch is normal in size DESC THORACIC AORTA: Inadequately visualized IVC/SVC: IVC is dilated with less than 50% collapse of inspiration. Estimated right atrial pressures is 15 mm Hg. PERICARDIUM: There is no pericardial effusion seen CONCLUSION: 1. Left ventricle is normal in size and thickness. Systolic ejection fraction is 25-30% with diffuse hypokinesis of the left ventricle. 2. There is mild to moderate mitral valve regurgitation seen 3. There is moderate tricuspid valve regurgitation 4. Aortic valve is trileaflet with mild sclerosis without stenosis 5. Right ventricle is normal in size with mildly reduced systolic function. 6. Estimated right ventricular systolic pressure is 38 mm Hg. Dictated by: VIVIAN BEE MD on 09/20/2022 at 9:10 Approved by: VIVIAN BEE MD on 09/20/2022 at 9:56 Normal [facility] MAGNESIUMon 09-20-2022 Magnesium [Mass/Vol] 2.0 mg/dL Normal 1.8 - 2.4 [facility] Comment on above: Performed By: #### 2 20252 #### [place] [address] NT-proBNPon 09-20-2022 Natriuretic peptide B (Bld) [Mass/Vol] 98690 pg/mL High 0 - 125 [facility] Comment on above: Performed By: #### 2 45710 #### [facility],[address] [place] [address] BMP with eGFRon 09-19-2022 AGE 62 years Normal [facility] Comment on above: Performed By: #### 2 72774 #### [facility],[address] [place] [address] Anion gap [Moles/Vol] 16 mmol/L Normal 10 - 20 [facility] Comment on above: Performed By: #### 2 74150 #### [facility],[address] [place] [address] BMP with eGFR Normal [facility] Comment on above: Result Comment: BASI C METABOLIC PANEL Performed By: #### 2 19139 #### [facility],[address] [place] [address] Calcium [Mass/Vol] 8.8 mg/dL Normal 8.5 - 10.1 [facility] Comment on above: Performed By: #### 2 78941 #### [facility],[address] [place] [address] Chloride [Moles/Vol] 100 mmol/L Normal 98 - 107 [facility] Comment on above: Performed By: #### 2 55467 #### [facility],[address] [place] [address] CO2 [Moles/Vol] 26.5 mmol/L Normal 21.0 - 32.0 [facility] Comment on above: Performed By: #### 2 86981 #### [facility],[address] [place] [address] Creatinine [Mass/Vol] 1.70 mg/dL High 0.55 - 1.02 [facility] Comment on above: Performed By: #### 2 60477 #### [facility],[address] [place] [address] eGFR 31 ML/MINUTE Low 60 - 999 [facility] Comment on above: Performed By: #### 2 62986 #### [facility],[address],[place] [address] eGFR(AA) 37 ML/MINUTE Low 60 - 999 [facility] Comment on above: Result Comment: ACCO RDING TO THE NATIONAL KIDNEY DISEASE EDUCATION PROGRAM(NKDE), A NORMAL eGFR IS A VALUE GREATER THAN OR EQUAL TO 60 ML/MIN/1.73 SQ METERS. CHRONIC KIDNEY DISEASE: <60mL/MIN/1.73 SQ METERS KIDNEY FAILURE: <15mL/MIN/1.73 SQ METERS THIS TEST SHOULD ONLY BE USED FOR PATIENTS 18 YEARS OF AGE AND OLDER. Performed By: #### 2 10395 #### [facility],[address] [place] [address]1362 Glucose [Mass/Vol] 127 mg/dL High 74 - 106 [facility] Comment on above: Performed By: #### 2 80222 #### [facility],[address] [place] [address] 49068 Potassium [Moles/Vol] 3.8 mmol/L Normal 3.5 - 5.1 [facility] Comment on above: Performed By: #### 2 91040 #### [facility],[address] [place] [address] 96690 Sodium [Moles/Vol] 139 mmol/L Normal 136 - 145 [facility] Comment on above: Performed By: #### 2 19371 #### [facility],[address] [place] [address] 55442 Urea nitrogen [Mass/Vol] 30 mg/dL High 7 - 18 [facility] Comment on above: Performed By: #### 2 19433 #### [facility],[address] [place] [address] 30558 CBC + DIFFon 09-19-2022 Baso # 0.10 x10EE3/UL Normal 0.00 - 0.10 [facility] Comment on above: Performed By: #### 2 72255 #### [facility],[address] [place] [address] Basophils/100 WBC (Bld) 1.4 % Normal 0.0 - 2.0 [facility] Comment on above: Performed By: #### 2 47480 #### [facility],[address] [place], [place] [phone] CBC + DIFF Normal [facility] Comment on above: Result Comment: CBC- COMPLETE BLOOD COUNT Performed By: #### 2 92365 #### [facility],[address] [place] [address] 33906 EO # 0.10 x10EE3/UL Normal 0.00 - 0.50 [facility] Comment on above: Performed By: #### 2 69807 #### [facility],[address] [place] [address] Eosinophils/100 WBC (Bld) 1.1 % Normal 0.0 - 7.0 [facility] Comment on above: Performed By: #### 2 90272 #### [facility],[address] [place] [address] Erythrocyte distribution width (RBC) [Ratio] 23.0 % High 12.0 - 15.6 [facility] Comment on above: Performed By: #### 2 81406 #### [facility],[address] [place] [address] Hematocrit (Bld) [Volume fraction] 30.2 % Low 34.0 - 46.0 [facility] Comment on above: Performed By: #### 2 75511 #### [facility],[address] [place], [place] [phone] Hemoglobin (Bld) [Mass/Vol] 9.2 g/dL Low 12.0 - 16.0 [facility] Comment on above: Performed By: #### 2 15389 #### [facility],[address] [place], [place] [phone] Lymph # 2.10 x10EE3/UL Normal 0.80 - 2.80 [facility] Comment on above: Performed By: #### 2 50942 #### [facility],[address] [place], [place] [address] Lymphocytes/100 WBC (Bld) 23.4 % Normal 20.0 - 45.0 [facility] Comment on above: Performed By: #### 2 23720 #### [facility],[address] [place] [address] MANUAL DIFF N/A Normal [facility] Comment on above: Performed By: #### 2 00738 #### [facility],[address] [place] [address] MCH (RBC) [Entitic mass] 25 pg Low 27 - 33 [facility] Comment on above: Performed By: #### 2 51906 #### [facility],[address] [place] [address] MCHC 31 X10 3 Low 32 - 36 [facility] Comment on above: Performed By: #### 2 31688 #### [place] [address] MCV (RBC) [Entitic vol] 80 fL Normal 80 - 99 [facility] Comment on above: Performed By: #### 2 61575 #### [place] [address] [place] # 0.90 x10EE3/UL Normal 0.20 - 1.00 [facility] Comment on above: Performed By: #### 2 61456 #### [facility],[address] [place] [address] MONOS % 10.5 % High 0.0 - 10.0 [facility] Comment on above: Performed By: #### 2 06108 #### [place] [id number] Morphology Temo (Bld) [Interp] N/A Normal [facility] Comment on above: Result Comment: {CD] Performed By: #### 2 73371 #### [place] [address] Neut # 5.60 x10EE3/UL Normal 1.50 - 7.10 [facility] Comment on above: Performed By: #### 2 80083 #### [facility],[address] [place], [place] [id number] Neutrophils/100 WBC (Bld) 63.6 % Normal 46.0 - 76.0 [facility] Comment on above: Performed By: #### 2 79442 #### [facility],[address] [place] [address] PLATELET 248 x10EE3/UL Normal 150 - 450 [facility] Comment on above: Performed By: #### 2 44837 #### [place] [address] Platelet mean volume (Bld) [Entitic vol] 8.3 fL Normal 6.6 - 10.5 [facility] Comment on above: Result Comment: AUTO MATED DIFFERENTIAL Performed By: #### 2 06740 #### [place] [id number] RBC 3.78 x 10EE6/UL Low 4.10 - 5.30 [facility] Comment on above: Performed By: #### 2 44541 #### [place] [id number] WBC 8.9 x 10EE3/UL Normal 4.5 - 10.8 [facility] Comment on above: Performed By: #### 2 20349 #### [place] [id number] LIPID PROFILEon 09-19-2022 Cholesterol [Mass/Vol] 73 mg/dL Normal 0 - 240 [facility] Comment on above: Performed By: #### 2 95398 #### [place] [id number] Cholesterol in HDL [Mass/Vol] 26 mg/dL Low 40 - 60 [facility] Comment on above: Performed By: #### 2 19641 #### [address] [address] Cholesterol in LDL [Mass/Vol] 35 mg/dL Normal 0 - 129 [facility] Comment on above: Performed By: #### 2 07074 #### [facility],[address] [place] [address]384 Cholesterol.total/Era sterol in HDL [Mass ratio] 2.8 {ratio} Normal 0.0 - 5.0 [facility] Comment on above: Performed By: #### 2 43595 #### [facility],[address] [place] [address] 23827 Lipid 1996 panel Normal [facility] Comment on above: Result Comment: LIPI D PROFILE Performed By: #### 2 54372 #### [facility],[address] [place] [address] 41622 Triglyceride [Mass/Vol] 58 mg/dL Normal 0 - 150 [facility] Comment on above: Performed By: #### 2 77644 #### [facility],[address] [place] [address] 15996 MAGNESIUMon 09-19-2022 Magnesium [Mass/Vol] 2.3 mg/dL Normal 1.8 - 2.4 [facility] Comment on above: Performed By: #### 2 12306 #### [facility],[address] [place] [address] 07277 NT-proBNPon 09-19-2022 Natriuretic peptide B (Bld) [Mass/Vol] 12050 pg/mL High 0 - 125 [facility] Comment on above: Performed By: #### 2 85722 #### [facility],[address] [place] [address] 90625 TROPONIN I, HIGH SENSITIVITY on 09-19-2022 HS TROPONIN 11.6 pg/mL Normal 0.0 - 51.4 [facility] Comment on above: Performed By: #### 2 23591 #### [facility],[address] [place] [address] 07231 CBC + DIFFon 09-18-2022 Baso # 0.10 x10EE3/UL Normal 0.00 - 0.10 [facility] Comment on above: Performed By: #### 2 91121 #### [facility],[address] [place] [address] 48268 Basophils/100 WBC (Bld) 1.0 % Normal 0.0 - 2.0 [facility] Comment on above: Performed By: #### 2 30433 #### [facility],[address] [place] [address] CBC + DIFF Normal [facility] Comment on above: Result Comment: CBC- COMPLETE BLOOD COUNT Performed By: #### 2 92275 #### [facility],[address] [place] [address] EO # 0.10 x10EE3/UL Normal 0.00 - 0.50 [facility] Comment on above: Performed By: #### 2 71872 #### [facility],[address] [place] [address] 28633 Eosinophils/100 WBC (Bld) 1.0 % Normal 0.0 - 7.0 [facility] Comment on above: Performed By: #### 2 86224 #### [facility],[address] [place] [address] Erythrocyte distribution width (RBC) [Ratio] 22.8 % High 12.0 - 15.6 [facility] Comment on above: Performed By: #### 2 74274 #### [facility],[address] [place] [address] Hematocrit (Bld) [Volume fraction] 31.4 % Low 34.0 - 46.0 [facility] Comment on above: Performed By: #### 2 97993 #### [facility],[address] [place] [address] 09410 Hemoglobin (Bld) [Mass/Vol] 9.7 g/dL Low 12.0 - 16.0 [facility] Comment on above: Performed By: #### 2 52322 #### [facility],[address] [place] [address] 85844 Lymph # 1.70 x10EE3/UL Normal 0.80 - 2.80 [facility] Comment on above: Performed By: #### 2 19624 #### [facility],[address] [place] [address] 91685 Lymphocytes/100 WBC (Bld) 24.5 % Normal 20.0 - 45.0 [facility] Comment on above: Performed By: #### 2 70002 #### [facility],[address] [place] [address] 66358 MANUAL DIFF N/A Normal [facility] Comment on above: Performed By: #### 2 41733 #### [facility],[address] [place] [address] 21865 MCH (RBC) [Entitic mass] 25 pg Low 27 - 33 [facility] Comment on above: Performed By: #### 2 48005 #### [facility],[address] [place] [address] 85455 MCHC 31 X10 3 Low 32 - 36 [facility] Comment on above: Performed By: #### 2 44783 #### [facility],[address] [place] [address] 13605 MCV (RBC) [Entitic vol] 81 fL Normal 80 - 99 [facility] Comment on above: Performed By: #### 2 26230 #### [facility],[address] [place] [address]20 Maui # 0.80 x10EE3/UL Normal 0.20 - 1.00 [facility] Comment on above: Performed By: #### 2 27922 #### [facility],[address] [place] [address] 97111 MONOS % 11.7 % High 0.0 - 10.0 [facility] Comment on above: Performed By: #### 2 24034 #### [facility],[address] [place] [address] 20998 Morphology Temo (Bld) [Interp] N/A Normal [facility] Comment on above: Result Comment: {CD] Performed By: #### 2 22423 #### [facility],[address] [place] [address] 03719 Neut # 4.30 x10EE3/UL Normal 1.50 - 7.10 [facility] Comment on above: Performed By: #### 2 52647 #### [address] [address] Neutrophils/100 WBC (Bld) 61.8 % Normal 46.0 - 76.0 [facility] Comment on above: Performed By: #### 2 91367 #### [address] [address] PLATELET 266 x10EE3/UL Normal 150 - 450 [facility] Comment on above: Performed By: #### 2 60251 #### [address] [address] Platelet mean volume (Bld) [Entitic vol] 8.1 fL Normal 6.6 - 10.5 [facility] Comment on above: Result Comment: AUTO MATED DIFFERENTIAL Performed By: #### 2 00560 #### [address] [address] RBC 3.89 x 10EE6/UL Low 4.10 - 5.30 [facility] Comment on above: Performed By: #### 2 55700 #### [address] [address] WBC 6.9 x 10EE3/UL Normal 4.5 - 10.8 [facility] Comment on above: Performed By: #### 2 42048 #### [address] [address] CHEST 1 VIEWon 09-18-2022 CHEST 1 VIEW [place] [id number] Patient: CAMILLE DAWKINS Phone#: : 1960 Age: 62 Gender: F Pt. Type: ER Account: [id number] Location: [facility] Ordering: IRMA CHE Exam Date: 09/18/2022/14:14 Family Phys: Charge Code: [id number] Physician: [place] Order #: [id number] Dose#: PROCEDURE: X-RAY CHEST 1 VIEW COMPARISON: None. INDICATIONS: Dyspnea. FINDINGS: LUNGS: Hazy opacity throughout the lung rankin, most pronounced at the lung bases. VASCULATURE: Mildly increased CARDIAC: Cardiomegaly. MEDIASTINUM: Normal. No visible mass or adenopathy. PLEURA: Veiling opacity at the right lung bases obscuring the right hemidiaphragm and blunting the costophrenic angle consistent with pleural effusion. BONES: Normal. No fracture or visible bony lesion. OTHER: Monitoring leads project across the thorax CONCLUSION: Cardiomegaly, small pleural effusion and increased vascularity, consistent with CHF. Dictated by: Shayna Smith MD on 09/18/2022 at 15:19 Approved by: Shayna Smith MD on 09/18/2022 at 15:23 Normal [facility] CMP with eGFRon 09-18-2022 AGE 62 years Normal [facility] Comment on above: Performed By: #### 2 81954 #### [facility],[address] [place] [address]35 Albumin [Mass/Vol] 3.2 g/dL Low 3.4 - 5.0 [facility] Comment on above: Performed By: #### 2 31883 #### [facility],[address] [place] [address] 61643 Albumin/Globulin [Mass ratio] 0.9 {ratio} Normal 0.9 - 1.6 [facility] Comment on above: Performed By: #### 2 62064 #### [facility] [place] [address] 62898 ALK PHOS 87 U/L Normal 46 - 116 [facility] Comment on above: Performed By: #### 2 80117 #### [facility],[address] [place] [address] 40527 ALT [Catalytic activity/Vol] 26 U/L Normal 14 - 59 [facility] Comment on above: Performed By: #### 2 19486 #### [facility],[address] [place] [address] 20148 Anion gap [Moles/Vol] 13 mmol/L Normal 10 - 20 [facility] Comment on above: Performed By: #### 2 00735 #### [facility],[address] [place] [address] 80550 AST [Catalytic activity/Vol] 24 U/L Normal 13 - 39 [facility] Comment on above: Performed By: #### 2 58100 #### [facility],[address] [place] [address] 08633 B/C RATIO 19 ratio Normal 0 - 30 [facility] Comment on above: Performed By: #### 2 44710 #### [facility],[address] [place] [address] 52714 Bilirubin [Mass/Vol] 1.1 mg/dL High 0.2 - 1.0 [facility] Comment on above: Performed By: #### 2 00010 #### [facility],[address] [place] [address] 43398 Calcium [Mass/Vol] 9.0 mg/dL Normal 8.5 - 10.1 [facility] Comment on above: Performed By: #### 2 58319 #### [facility],[address] [place] [address] 01241 Chloride [Moles/Vol] 99 mmol/L Normal 98 - 107 [facility] Comment on above: Performed By: #### 2 11360 #### [facility],[address] [place] [address] 12592 CMP with eGFR Normal [facility] Comment on above: Result Comment: COMP REHENSIVE METABOLIC PANEL Performed By: #### 2 10151 #### [facility],[address] [place] [address] 98066 CO2 [Moles/Vol] 29.0 mmol/L Normal 21.0 - 32.0 [facility] Comment on above: Performed By: #### 2 74230 #### [facility],[address] [place] [address] 91469 Creatinine [Mass/Vol] 1.61 mg/dL High 0.55 - 1.02 [facility] Comment on above: Performed By: #### 2 31626 #### [facility],[address] [place] [address] 30053 eGFR 33 ML/MINUTE Low 60 - 999 [facility] Comment on above: Performed By: #### 2 49157 #### [facility],[address] [place] [address] 18929 eGFR(AA) 39 ML/MINUTE Low 60 - 999 [facility] Comment on above: Result Comment: ACCO RDING TO THE NATIONAL KIDNEY DISEASE EDUCATION PROGRAM(NKDE), A NORMAL eGFR IS A VALUE GREATER THAN OR EQUAL TO 60 ML/MIN/1.73 SQ METERS. CHRONIC KIDNEY DISEASE: <60mL/MIN/1.73 SQ METERS KIDNEY FAILURE: <15mL/MIN/1.73 SQ METERS THIS TEST SHOULD ONLY BE USED FOR PATIENTS 18 YEARS OF AGE AND OLDER. Performed By: #### 2 96795 #### [facility],[address] [place] [address] 81806 Globulin (S) [Mass/Vol] 3.7 g/dL Normal 1.5 - 3.8 [facility] Comment on above: Performed By: #### 2 24065 #### [facility],[address] [place] [address] 03558 Glucose [Mass/Vol] 121 mg/dL High 74 - 106 [facility] Comment on above: Performed By: #### 2 71329 #### [facility],[address] [place] [address] 57826 Potassium [Moles/Vol] 3.9 mmol/L Normal 3.5 - 5.1 [facility] Comment on above: Performed By: #### 2 83108 #### [facility],[address] [place] [address] 46172 Protein [Mass/Vol] 6.9 g/dL Normal 6.4 - 8.2 [facility] Comment on above: Performed By: #### 2 71091 #### [facility],[address] [place] [address] Sodium [Moles/Vol] 137 mmol/L Normal 136 - 145 [facility] Comment on above: Performed By: #### 2 52140 #### [facility],[address] [place] [address] Urea nitrogen [Mass/Vol] 30 mg/dL High 7 - 18 [facility] Comment on above: Performed By: #### 2 87274 #### [facility],[address] [place] [address] CORONAVIRUS (SARS) ANTIGEN T ESTon 09-18-2022 EXTERNAL QC DONE? YES Normal [facility] Comment on above: Performed By: #### 2 73353 #### [facility],[address] [place] [address] INTERNAL CONTROL PASS Normal [facility] Comment on above: Performed By: #### 2 93876 #### [facility],[address] [place] [address] SARS ANTIGEN Negative Normal NORMAL: NEGATIVE [facility] Comment on above: Performed By: #### 2 76412 #### [facility],[address] [place], [place] [id number] SEND TO ? YES Normal [facility] Comment on above: Result Comment: SARS -CoV-2 THIS TEST IS BEING USED UNDER THE FDA EUA PROCEDURE. THIS ASSAY HAS BEEN VALIDATED AT [facility] FOR USE WITH NASAL AND NASOPHARYNGEAL SWAB SPECIMENS. INTERPRETIVE DATA TEST RESULTS SHOULD ALWAYS BE CONSIDERED IN THE CONTEXT OF CLINICAL OBSERVATIONS AND EPIDEMIOLOGICAL DATA IN MAKING FINAL DIAGNOSIS AND PATIENT MANAGEMENT DECISIONS. PATIENT MANAGEMENT SHOULD FOLLOW CURRENT CDC GUIDELINES. THE CHRIST SARS ANTIGEN GARY DOES NOT DIFFERENTIATE BETWEEN SARS-CoV & SARS-CoV-2. A POSITIVE TEST RESULT INDICATES THE PRESENCE OF SARS-CoV-2 NUCLEOCAPSID PROTEIN ANTIGEN, AND THE PATIENT IS INFECTED WITH THE VIRUS AND PRESUMED TO BE CONTAGIOUS. A NEGATIVE TEST RESULT FOR THIS TEST MEANS THAT SARS-CoV-2 NUCLEOCAPSID PROTEIN ANTIGEN WAS NOT PRESENT IN THE SPECIMEN ABOVE THE LIMIT OF DETECTION. HOWEVER, A NEGATIVE RESULT DOES NOT RULE OUT COVID-19 AND SHOULD NOT BE USED THE SOLE BASIS FOR TREATMENT OR PATIENT MANAGEMENT DECISIONS. A NEGATIVE RESULT DOES NOT EXCLUDE THE POSSIBILITY OF COVID-19. NEGATIVE RESULTS, FROM PATIENTS WITH SYMPTOM ONSET BEYOND FIVE DAYS, SHOULD BE TREATED PRESUMPTIVE AND CONFIRMATION WITH A MOLECULAR ASSAY, IF NECESSARY, FOR PATIENT MANAGEMENT, MAY BE PERFORMED. WHEN DIAGNOSTIC TESTING IS NEGATIVE, THE POSSIBLILTY OF A FALSE NEGATIVE RESULT SHOULD BE CONSIDERED IN THE CONTEXT OF A PATIENT'S RECENT EXPOSURES AND THE PRESENCE OF CLINICAL SIGNS AND SYMPTOMS CONSISTENT WITH COVID-19. THE POSSIBILITY OF A FALSE NEGATIVE RESULT SHOULD ESPECIALLY BE CONSIDERED IF THE PATIENT'S RECENT EXPOSURES OR CLINICAL PRESENTATION INDICATE THAT COVID-19 IS LIKELY, AND DIAGNOSTIC TESTS FOR OTHER CAUSES OF ILLNESS (e.g., OTHER RESPIRATORY ILLNESS) ARE NEGATIVE. IF COVID-19 IS STILL SUSPECTED BASED ON EXPOSURE HISTORY TOGETHER WITH OTHER CLINICAL FINDINGS, RE-TESTING SHOULD BE CONSIDERED BY HEALTHCARE PROVIDERS IN CONSULTATION WITH PUBLIC HEALTH AUTHORITIES. Performed By: #### 2 38452 #### [place] [address] CORONAVIRUS PCR - [facility] 09-18-2022 SARS-CoV-2 (COVID-19) RNA SRINIVAS+probe Ql (Unsp spec) Negative Normal NORMAL: NEGATIVE [facility] Comment on above: Performed By: #### 2 93517 #### [place] [id number] SEND TO ? YES Normal [facility] Comment on above: Result Comment: RESU LTS FAXED TO INFECTION CONTROL. SARS-CoV-2 THIS TEST IS BEING USED UNDER THE FDA EUA PROCEDURE. THIS ASSAY HAS BEEN VALIDATED IN THE [facility] FOR USE WITH NASOPHARYNGEAL SPECIMENS IN [facility]. INTERPRETIVE DATA LABORATORY TEST RESULTS SHOULD ALWAYS BE CONSIDERED IN THE CONTEXT OF CLINICAL OBSERVATIONS AND EPIDEMIOLOGICAL DATA IN MAKING FINAL DIAGNOSIS AND PATIENT MANAGEMENT DECISIONS. PATIENT MANAGEMENT SHOULD FOLLOW CURRENT CDC GUIDELINES. A POSITIVE TEST RESULT FOR COVID-19 INDICATES THAT RNA FROM SARS-CoV-2 WAS DETECTED, AND THE PATIENT IS INFECTED WITH THE VIRUS AND PRESUMED TO BE CONTAGIOUS. A NEGATIVE TEST RESULT FOR THIS TEST MEANS THAT SARS-CoV-2 RNA WAS NOT PRESENT IN THE SPECIMEN ABOVE THE LIMIT OF DETECTION. HOWEVER, A NEGATVIE RESULT DOES NOT RULE OUT COVID-19 AND SHOULD NOT BE USED THE SOLE BASIS FOR TREATMENT OR PATIENT MANAGEMENT DECISIONS. A NEGATIVE RESULT DOES NOT EXCLUDE THE POSSIBILITY OF COVID-19. WHEN DIAGNOSTIC TESTING IS NEGATIVE, THE POSSIBLILTY OF A FALSE NEGATIVE RESULT SHOULD BE CONSIDERED IN THE CONTEXT OF A PATIENT'S RECENT EXPOSURES AND THE PRESENCE OF CLINICAL SIGNS AND SYMPTOMS CONSISTENT WITH COVID-19. THE POSSIBILITY OF A FALSE NEGATIVE RESULT SHOULD ESPECIALLY BE CONSIDERED IF THE PATIENT'S RECENT EXPOSURES OR CLINICAL PRESENTATION INDICATE THAT COVID-19 IS LIKELY, AND DIAGNOSTIC TESTS FOR OTHER CAUSES OF ILLNESS (e.g., OTHER RESPIRATORY ILLNESS) ARE NEGATIVE. IF COVID-19 IS STILL SUSPECTED BASED ON EXPOSURE HISTORY TOGETHER WITH OTHER CLINICAL FINDINGS, RE-TESTED SHOULD BE CONSIDERED BY HEALTHCARE PROVIDERS IN CONSULTATION WITH PUBLIC HEALTH AUTHORITIES. Performed By: #### 2 75698 #### [facility],[address] [place] [address] CULTURE BLOOD [PAPI]on Microscopic examination of blood, culture CULTURE BLOOD [PAPI] _[facility] CULTURE_ [facility] FOR SCANNED REPORT 09/27/22.1314.DNP.COMPLET E Normal [facility] Comment on above: Performed By: #### 2 65227 #### [facility],[address] [place] [address] Microscopic examination of blood, culture CULTURE BLOOD [PAPI] _BLOOD CULTURE_ [facility]ACH[facility] FOR SCANNED REPORT 09/27/22.1313.DNP.COMPLET E Normal [facility] Comment on above: Performed By: #### 2 91080 #### [place] [address] FERRITINon 09-18-2022 Ferritin [Mass/Vol] 52 ng/mL Normal 8 - 388 [facility] Comment on above: Performed By: #### 2 85406 #### [place] [id number] FOLATESon 09-18-2022 FOLATES 22.3 ng/ml Normal 8.6 - 58.9 [facility] Comment on above: Performed By: #### 2 66185 #### [place] [address] INFLUENZA VIRUS RAPID A/Bon 09-18-2022 INFLUENZA VIRUS RAPID A/B INFLUENZA A NEGATIVE INFLUENZA B NEGATIVE INTERNAL NEG QC PASS INTERNAL POS QC PASS EXTERNAL QC DONE? YES SEND TO IC? YES A NEGATIVE TEST RESULT DOES NOT EXCLUDE INFECTION WITH INFLUENZA A OR B. THEREFORE, THE RESULTS OBTAINED FROM THIS FLU TEST SHOULD BE USED IN CONJUCTION WITH CLINICAL FINDINGS TO MAKE AN ACCURATE DIAGNOSIS. A POSITIVE RESULT DOES NOT RULE OUT CO-INFECTIONS WITH OTHER PATHOGENS OR IDENTIFY ANY SPECIFIC INFLUENZA A VIRUS SUBTYPE.CO-INFECTION WITH INFLUENZA A AND B IS RARE. IT IS RECOMMENDED THAT DUAL POSITIVE RESULTS BE CONFIRMED BY VIRAL CULTURE OR AN FDA-CLEARED INFLUENZA A AND B MOLECULAR ASSAY. INDIVIDUALS WHO HAVE RECEIVED NASALLY ADMINISTERED INFLUENZA A VACCINE MAY TEST POSITIVE IN COMMERCIALLY AVAILABLE INFLUENZA RAPID DIAGNOSTIC TESTS FOR UP TO THREE DAYS. RESULT CRITICAL? NO { CALLED TO { READ BACK BY [facility] Comment on above: Performed By: #### 2 57748 #### [place] [id number] IRON AND UIBCon 09-18-2022 Iron [Mass/Vol] 19 ug/dL Low 50 - 170 [facility] Comment on above: Performed By: #### 2 08089 #### [place] [address] Sat% 4 % Low 20 - 50 [facility] Comment on above: Performed By: #### 2 63205 #### [facility],[address] [place] [address] 18816 TIBC 465 ug/dl High 250 - 450 [facility] Comment on above: Performed By: #### 2 39534 #### [facility],[address] [place] [address] 76457 UIBC 446 ug/dL High 155 - 355 [facility] Comment on above: Performed By: #### 2 56537 #### [facility],[address] [place] [address] 64799 LACTATEon 09-18-2022 Lactate [Moles/Vol] 1.5 mmol/L Normal 0.4 - 2.0 [facility] Comment on above: Performed By: #### 2 64651 #### [facility],[address] [place] [address] 73509 MAGNESIUMon 09-18-2022 Magnesium [Mass/Vol] 1.5 mg/dL Low 1.8 - 2.4 [facility] Comment on above: Performed By: #### 2 31250 #### [facility],[address] [place] [address] 34617 NT-proBNPon 09-18-2022 Natriuretic peptide B (Bld) [Mass/Vol] 21142 pg/mL High 0 - 125 [facility] Comment on above: Performed By: #### 2 20440 #### [facility],[address] [place] [address] 55411 RETICULOCYTE COUNTon 023 IRF 0.57 IRF High 0.20 - 0.46 [facility] Comment on above: Performed By: #### 2 20616 #### [facility],[address] [place] [address] 18014 RETIC COUNT 4.0 % High 0.0 - 2.3 [facility] Comment on above: Performed By: #### 2 31927 #### [facility],[address] [place], [place] [id number] TROPONIN I, HIGH SENSITIVITY on 09-18-2022 HS TROPONIN 10.9 pg/mL Normal 0.0 - 51.4 [facility] Comment on above: Performed By: #### 2 97677 #### [facility],[address] [place] [address] HS TROPONIN 10.5 pg/mL Normal 0.0 - 51.4 [facility] Comment on above: Performed By: #### 2 97293 #### [facility],[address] [place] [address] HS TROPONIN 10.6 pg/mL Normal 0.0 - 51.4 [facility] Comment on above: Performed By: #### [id number] #### [facility],[address] [place] [address] TSHon 09-18-2022 TSH Qn 4.55 m[IU]/L High 0.35 - 3.74 [facility] Comment on above: Performed By: #### [id number] #### [facility],[address] [place], [place] [address] VITAMIN B-12on 09-18-2022 Cobalamin (Vitamin B12) [Mass/Vol] 403 pg/mL Normal 193 - 986 [facility] Comment on above: Performed By: #### [id number] #### [facility],[address] [place] [address] COVID-19 virus antigen assay Ordered By: Dr. Marti on 09-17-2022 SARS-CoV-2 (COVID-19) Ag IA.rapid Ql (Resp) [facility] Glucose Glucometer (BldC) [M ass/Vol]Ordered By: Dr. Marti on 09-17-2022 Glucose [Mass/Vol] 165 mg/dL 74-106 [facility] Comment on above: MANAGEMENT OF PATIEN T CARE PER NURSING PROTOCOL Basophil percentageOrdered B y: Dr. Marti on 09-15-2022 Chloride [Moles/Vol] 98 mmol/L 98-107 [facility] Glucose [Mass/Vol] 130 mg/dL 74-106 [facility] Comment on above: Fasting Glucose resu lt greater than or equal to 126 mg/dL suggests DIABETES MELLITUS per A.D.A. criteria. Potassium [Moles/Vol] 3.3 mmol/L 3.5-5.1 [facility] Sodium [Moles/Vol] 133 mmol/L 136-145 [facility] Laboratory - Chemistry and C hemistry - challengeOrdered By: Dr. Marti on 09-15-2022 CO2 [Moles/Vol] 28.0 mmol/L 21.0-32.0 [facility] Urea nitrogen/Creatinine [Mass ratio] 25.7 mg/mg 10-20 [facility] No Panel InformationOrdered By: Dr. Marti on 09-15-2022 Estimated Creatinine Clearance Calc 34.91 ml/min [facility] Estimated GFR (MDRD) Amer 49 mL/min >60 [facility] Comment on above: GFR Calc Estimated GFR (MDRD) Non-Af Amer 41 mL/min >60 [facility] Comment on above: Non- GFR Calc Serum or plasma calcium paul urement (mass/volume)Ordered By: Dr. Marti on 09-15-2022 Calcium [Mass/Vol] 8.9 mg/dL 8.5-10.1 [facility] Serum or plasma creatinine m easurement (mass/volume)Ordered By: Dr. Marti on 09-15-2022 Creatinine [Mass/Vol] 1.40 mg/dL 0.55-1.02 [facility] Comment on above: The validity of the calculated GFR & GFRAA in patients over 70 years has not been determined. Clinical correlation is essential. Serum or plasma urea nitroge n measurement (mass/volume)Ordered By: Dr. Marti on 09-15-2022 Urea nitrogen [Mass/Vol] 36 mg/dL 7-18 [facility] Thin prep Papanicolaou smear with manual screeningOrdered By: Dr. Marti on 09-15-2022 Thin prep Papanicolaou smear with manual screening 7 5-15 [facility] Absolute lymphocyte countOrd ered By: Dr. Bearden on 09-13-2022 Lymphocytes Auto (Unsp spec) [#/Vol] 2.35 10*3/uL 0.83-4.51 [facility] Basophil percentageOrdered B y: Dr. Bearden on 09-13-2022 Basophils/100 WBC (Bld) 1.2 % 0-1 [facility] Bilirubin [Mass/Vol] 0.80 mg/dL 0.20-1.00 [facility] Comment on above: For patients on eltr ombopag therapy, use of Dimension [place] TBIL is not recommended. Eosinophils/100 WBC (Bld) 2.8 % 0-5 [facility] Neutrophils (Bld) [#/Vol] 4.8 10*3/uL 2.0-7.7 [facility] Neutrophils/100 WBC (Bld) 55.6 % 47-70 [facility] Protein [Mass/Vol] 7.1 g/dL 6.4-8.2 [facility] WBC (Bld) [#/Vol] 8.7 10*3/uL 4.4-11.0 [facility] Blood erythrocytes count (nu mber/volume)Ordered By: Dr. Bearden on 09-13-2022 RBC (Bld) [#/Vol] 4.20 10*6/uL 4.2-5.4 [facility] Blood hemoglobin measurement (mass/volume)Ordered By: Dr. Bearden on 09-13-2022 Hemoglobin (Bld) [Mass/Vol] 10.2 g/dL 12.0-15.0 [facility] Blood lymphocytes/100 leukoc ytesOrdered By: Dr. Bearden on 09-13-2022 Lymphocytes/100 WBC (Bld) 27.1 % 19-41 [facility] Blood monocytes/100 leukocyt esOrdered By: Dr. Bearden on 09-13-2022 Monocytes/100 WBC (Bld) 12.8 % 0-10 [facility] Blood platelet mean volumeOr dered By: Dr. Bearden on 09-13-2022 Platelet mean volume (Bld) [Entitic vol] 10.3 fL 6.2-12.0 [facility] Determination of erythrocyte mean corpuscular volume (MCV)Ordered By: Dr. Bearden on 09-13-2022 MCV (RBC) [Entitic vol] 85.7 fL 81-99 [facility] Hematocrit Auto (Bld) [Volum e fraction]Ordered By: Dr. Bearden on 09-13-2022 Hematocrit (Bld) [Volume fraction] 36.0 % 37-47 [facility] Laboratory - Chemistry and C hemistry - challengeOrdered By: Dr. Bearden on 09-13-2022 ALP [Catalytic activity/Vol] 93 U/L 45-117 [facility] ALT [Catalytic activity/Vol] 40 U/L 13-56 [facility] Globulin (S) [Mass/Vol] 3.7 g/dL 2.2-4.2 [facility] Laboratory - Hematology and Cell countsOrdered By: Dr. Bearden on 09-13-2022 Erythrocyte distribution width (RBC) [Entitic vol] 60.5 fL 35.1-43.9 [facility] Erythrocyte distribution width (RBC) [Ratio] 19.6 % 11.6-14.6 [facility] Immature granulocytes/100 WBC (Bld) 0.500 % 0.0-0.9 [facility] Comment on above: IG% - Immature Granu locytes (promyelocytes, myelocytes and metamyelocytes) > 1% indicates that a LEFT SHIFT is Present. MCH (RBC) [Entitic mass] 24.3 pg 27.0-32.0 [facility] Nucleated RBC/100 WBC (Bld) [Ratio] 0 % 0-5 [facility] MCHC Auto (RBC) [Mass/Vol]Or dered By: Dr. Bearden on 09-13-2022 MCHC (RBC) [Mass/Vol] 28.3 g/dL 32-36 [facility] Platelets bldOrdered By: Dr. Bearden on 09-13-2022 Platelets (Bld) [#/Vol] 308 10*3/uL 150-450 [facility] Serum or plasma albumin paul urement (mass/volume)Ordered By: Dr. Bearden on 09-13-2022 Albumin [Mass/Vol] 3.4 g/dL 3.2-5.0 [facility] Serum or plasma albumin/glob ulin mass ratioOrdered By: Dr. Bearden on 09-13-2022 Albumin/Globulin [Mass ratio] 0.9 {ratio} 0.9-2.4 [facility] Thin prep Papanicolaou smear with manual screeningOrdered By: Dr. Bearden on 09-13-2022 Thin prep Papanicolaou smear with manual screening 26 U/L 15-37 [facility] Iron measurement (mass/mass) Ordered By: Dr. Bearden on 09-12-2022 Iron (Unsp spec) [Mass/Mass] 20 ug/dL 50-170 [facility] Laboratory - Chemistry and C hemistry - challengeOrdered By: Dr. Bearden on 09-12-2022 Cobalamin (Vitamin B12) [Mass/Vol] 303 pg/mL 211-911 [facility] No Panel InformationOrdered By: Dr. Bearden on 09-12-2022 Total Iron Binding Capacity 506 ug/dL 250-450 [facility] Serum or plasma ferritin berenice surement (mass/volume)Ordered By: Dr. Bearden on 09-12-2022 Ferritin [Mass/Vol] 37 ng/mL 8-252 [facility] Serum or plasma iron saturat ion measurement (mass fraction)Ordered By: Dr. Bearden on 09-12-2022 Iron saturation [Mass fraction] 4.0 % 15.0-55.0 [facility] Basophil percentageOrdered B y: Dr. Muniz on 09-11-2022 Cholesterol [Mass/Vol] 60 mg/dL <200 [facility] Comment on above: <200 mg/dL Desirable 200-240 mg/dL Borderline >240 mg/dL High Risk Triglyceride [Mass/Vol] 38 mg/dL <199 [facility] Comment on above: The drugs N-Acetylcy steine and Metamizole may falsely depress this assay.Serum Triglycerides Reference Interval Normal <150 mg/dL Borderline high 150 - 199 mg/dL High 200 - 499 mg/dL Very High > or = 500 mg/dL Serum or plasma cholesterol in HDL measurement (mass/volume)Ordered By: Dr. Muniz on 09-11-2022 Cholesterol in HDL [Mass/Vol] 32 mg/dL >40 [facility] Comment on above: The drugs N-Acetylcy steine and Metamizole may falsely depress this assay. Reference Range HDL <40 mg/dL Low HDL Cholesterol HDL >or= 60 mg/dL High HDL Cholesterol Serum or plasma cholesterol in VLDL measurement (mass/volume)Ordered By: Dr. Muniz on 09-11-2022 Cholesterol in VLDL [Mass/Vol] 8 mg/dL 5-40 [facility] Serum or plasma low density lipoprotein (LDL) cholesterol measurement (mass/volume)Ordered By: Dr. Muniz on 09-11-2022 Cholesterol in LDL [Mass/Vol] 20 mg/dL 0-130 [facility] ECG COMPLETEon 09-10-2022 Atrial Rate 80 BPM [facility] Calculated R [place] -33 degrees [facility] Calculated T [place] 159 degrees [facility] QRS Duration 92 ms [facility] QT Interval 374 ms [facility] QTC Calculation (Bazett) 487 ms [facility] Ventricular Rate 102 BPM [facility] No Panel InformationOrdered By: Dr. Muniz on 09-10-2022 Troponin I High Sensitivity 20 pg/mL 3.0-54.0 [facility] Comment on above: Please Note: New Riya t Units and Gender Specific Reference Ranges. For more information see Policy Stat Procedure [place] High Sensitivity Troponin (TNIH) and attachments. Thyroid Stimulating Hormone (TSH) 3.21 uIU/mL 0.358-3.74 [facility] Absolute lymphocyte counton 09-09-2022 Lymphocytes Auto (Unsp spec) [#/Vol] 2.04 10*3/uL 0.83-4.51 [facility] Work Phone: Basophil percentageon 2021 Basophils/100 WBC (Bld) 0.7 % 0-1 [facility] Work Phone: Bilirubin [Mass/Vol] 1.20 mg/dL 0.20-1.00 [facility] Work Phone: Comment on above: For patients on eltr ombopag therapy, use of Dimension [place] TBIL is not recommended. Chloride [Moles/Vol] 100 mmol/L 98-107 [facility] Work Phone: Eosinophils/100 WBC (Bld) 0.4 % 0-5 [facility] Work Phone: Glucose [Mass/Vol] 249 mg/dL 74-106 [facility] Work Phone: Comment on above: Glucose result great er than or equal to 200 mg/dLsuggests DIABETES MELLITUS per A.D.A. criteria. Neutrophils (Bld) [#/Vol] 6.6 10*3/uL 2.0-7.7 [facility] Work Phone: [phone] Neutrophils/100 WBC (Bld) 65.5 % 47-70 [facility] Work Phone: Potassium [Moles/Vol] 4.1 mmol/L 3.5-5.1 [facility] Work [facility]: Protein [Mass/Vol] 6.7 g/dL 6.4-8.2 [facility] Work Phone: Sodium [Moles/Vol] 136 mmol/L 136-145 [facility] Work Phone: WBC (Bld) [#/Vol] 10.1 10*3/uL 4.4-11.0 [facility] Work Phone: Blood erythrocytes count (nu mber/volume)on 09-09-2022 RBC (Bld) [#/Vol] 3.83 10*6/uL 4.2-5.4 [facility] Work Phone: Blood hemoglobin measurement (mass/volume)on 09-09-2022 Hemoglobin (Bld) [Mass/Vol] 9.3 g/dL 12.0-15.0 [facility] Work Phone: Blood lymphocytes/100 leukoc yteson 09-09-2022 Lymphocytes/100 WBC (Bld) 20.3 % 19-41 [facility] Work Phone: [phone] Blood monocytes/100 leukocyt eson 09-09-2022 Monocytes/100 WBC (Bld) 12.7 % 0-10 [facility] Work Phone: Blood platelet mean volumeon 09-09-2022 Platelet mean volume (Bld) [Entitic vol] 10.8 fL 6.2-12.0 [facility] Work Phone: Determination of erythrocyte mean corpuscular volume (MCV)on 09-09-2022 MCV (RBC) [Entitic vol] 85.1 fL 81-99 [facility] Work Phone: Hematocrit Auto (Bld) [Volum e fraction]on 09-09-2022 Hematocrit (Bld) [Volume fraction] 32.6 % 37-47 [facility] Work Phone: Laboratory - Chemistry and C hemistry - challengeon 09-09-2022 ALP [Catalytic activity/Vol] 85 U/L 45-117 [facility] Work Phone: ALT [Catalytic activity/Vol] 43 U/L 13-56 [facility] Work Phone: CO2 [Moles/Vol] 23.0 mmol/L 21.0-32.0 [facility] Work Phone: Globulin (S) [Mass/Vol] 3.5 g/dL 2.2-4.2 [facility] Work Phone: Urea nitrogen/Creatinine [Mass ratio] 22.8 mg/mg 10-20 [facility] Work Phone: Laboratory - Chemistry and C hemistry - challengeOrdered By: Dr. Muniz on 09-09-2022 Magnesium [Mass/Vol] 2.1 mg/dL 1.6-2.6 [facility] Laboratory - Chemistry and C hemistry - challengeOrdered By: Dr. Lujan on 09-09-2022 Natriuretic peptide B (Bld) [Mass/Vol] 1835.8 pg/mL 0-100 [facility] Laboratory - Hematology and Cell countson 09-09-2022 Erythrocyte distribution width (RBC) [Entitic vol] 60.6 fL 35.1-43.9 [facility] Work Phone: Erythrocyte distribution width (RBC) [Ratio] 19.6 % 11.6-14.6 [facility] Work Phone: Immature granulocytes/100 WBC (Bld) 0.400 % 0.0-0.9 [facility] Work Phone: Comment on above: IG% - Immature Granu locytes (promyelocytes, myelocytes and metamyelocytes) > 1% indicates that a LEFT SHIFT is Present. MCH (RBC) [Entitic mass] 24.3 pg 27.0-32.0 [facility] Work Phone: Nucleated RBC/100 WBC (Bld) [Ratio] 0 % 0-5 [facility] Work Phone: MCHC Auto (RBC) [Mass/Vol]on 09-09-2022 MCHC (RBC) [Mass/Vol] 28.5 g/dL 32-36 [facility] Work Phone: No Panel Informationon 09-09 Estimated Creatinine Clearance Calc 26.56 ml/min [facility] Work Phone: Estimated GFR (MDRD) Amer 36 mL/min >60 [facility] Work Phone: Comment on above: GFR Calc Estimated GFR (MDRD) Non-Af Amer 30 mL/min >60 [facility] Work Phone: Comment on above: Non- GFR Calc Troponin I High Sensitivity 21 pg/mL 3.0-54.0 [facility] Work Phone: Comment on above: Please Note: New Riya t Units and Gender Specific Reference Ranges. For more information see Policy Stat Procedure [place] High Sensitivity Troponin (TNIH) and attachments. Platelets bldon 09-09-2022 Platelets (Bld) [#/Vol] 326 10*3/uL 150-450 [facility] Work Phone: Serum or plasma albumin paul urement (mass/volume)on 09-09-2022 Albumin [Mass/Vol] 3.2 g/dL 3.2-5.0 [facility] Work Phone: Serum or plasma albumin/glob ulin mass ratioon 09-09-2022 Albumin/Globulin [Mass ratio] 0.9 {ratio} 0.9-2.4 [facility] Work Phone: Serum or plasma calcium paul urement (mass/volume)on 09-09-2022 Calcium [Mass/Vol] 9.0 mg/dL 8.5-10.1 [facility] Work Phone: Serum or plasma creatinine m easurement (mass/volume)on 09-09-2022 Creatinine [Mass/Vol] 1.84 mg/dL 0.55-1.02 [facility] Work Phone: Comment on above: The validity of the calculated GFR & GFRAA in patients over 70 years has not been determined. Clinical correlation is essential. Serum or plasma urea nitroge n measurement (mass/volume)on 09-09-2022 Urea nitrogen [Mass/Vol] 42 mg/dL 7-18 [facility] Work Phone: Thin prep Papanicolaou smear with manual screeningon 09-09-2022 Thin prep Papanicolaou smear with manual screening 35 U/L 15-37 [facility] Work Phone: Thin prep Papanicolaou smear with manual screening 13 5-15 [facility] Work Phone: Basic metabolic 2000 panelon 09-06-2022 Anion gap [Moles/Vol] 13 mmol/L 9 - 18 mmol/L [facility] Calcium [Mass/Vol] 8.9 mg/dL 8.5 - 10. 2 mg/dL [facility] Chloride [Moles/Vol] 94 mmol/L Low 97 - 10 5 mmol/L [facility] CO2 [Moles/Vol] 27 mmol/L 22 - 30 mmol/L [facility] Creatinine [Mass/Vol] 1.59 mg/dL High 0.58 - 0.96 mg/dL [facility] Estimated Glomerular Filtration Rate 37 mL/min/1.73m Low >=60 mL/min/1.7 3m [facility] Glucose [Mass/Vol] 184 mg/dL High 74 - 99 mg/dL [facility] Potassium [Moles/Vol] 4.0 mmol/L 3.7 - 5.1 mmol/L [facility] Sodium [Moles/Vol] 134 mmol/L Low 136 - 144 mmol/L [facility] Urea nitrogen [Mass/Vol] 47 mg/dL High 7 - 21 mg/dL [facility] CBC panel Auto (Bld)on 09-06 Erythrocyte distribution width (RBC) [Ratio] 19.0 % High 11.5 - 15.0 % [facility] Hematocrit (Bld) [Volume fraction] 32.6 % Low 36.0 - 46.0 % [facility] Hemoglobin (Bld) [Mass/Vol] 10.1 g/dL Low 11.5 - 15.5 g/dL [facility] MCH (RBC) [Entitic mass] 25.9 pg Low 26.0 - 34.0 pg [facility] MCHC (RBC) [Mass/Vol] 31.0 g/dL 30.5 - 36.0 g/dL [facility] MCV (RBC) [Entitic vol] 83.6 fL 80.0 - 100.0 fL [facility] Nucleated RBC (Bld) [#/Vol] 0.02 10*3/uL High <0.01 k/uL [facility] Platelet mean volume (Bld) [Entitic vol] 10.5 fL 9.0 - 12.7 fL [facility] Platelets (Bld) [#/Vol] 362 10*3/uL 150 - 400 k/uL [facility] RBC (Bld) [#/Vol] 3.90 10*6/uL 3.90 - 5.20 m/uL [facility] WBC (Bld) [#/Vol] 11.99 10*3/uL High 3.70 - 11.00 k/uL [facility] MAGNESIUM BLDon 09-06-2022 Magnesium [Mass/Vol] 1.7 mg/dL 1.7 - 2 .3 mg/dL [facility] Basic metabolic 2000 panelon 09-04-2022 Anion gap [Moles/Vol] 15 mmol/L 9 - 18 mmol/L [facility] Calcium [Mass/Vol] 8.9 mg/dL 8.5 - 10. 2 mg/dL [facility] Chloride [Moles/Vol] 97 mmol/L 97 - 10 5 mmol/L [facility] CO2 [Moles/Vol] 22 mmol/L 22 - 30 mmol/L [facility] Creatinine [Mass/Vol] 1.71 mg/dL High 0.58 - 0.96 mg/dL [facility] Estimated Glomerular Filtration Rate 34 mL/min/1.73m Low >=60 mL/min/1.7 3m [facility] Glucose [Mass/Vol] 105 mg/dL High 74 - 99 mg/dL [facility] Potassium [Moles/Vol] 4.3 mmol/L 3.7 - 5.1 mmol/L [facility] Sodium [Moles/Vol] 134 mmol/L Low 136 - 144 mmol/L [facility] Urea nitrogen [Mass/Vol] 58 mg/dL High 7 - 21 mg/dL [facility] MAGNESIUM BLDon 09-04-2022 Magnesium [Mass/Vol] 1.9 mg/dL 1.7 - 2 .3 mg/dL [facility] Basic metabolic 2000 panelon 09-02-2022 Anion gap [Moles/Vol] 14 mmol/L 9 - 18 mmol/L [facility] Calcium [Mass/Vol] 9.2 mg/dL 8.5 - 10. 2 mg/dL [facility] Chloride [Moles/Vol] 94 mmol/L Low 97 - 10 5 mmol/L [facility] CO2 [Moles/Vol] 26 mmol/L 22 - 30 mmol/L [facility] Creatinine [Mass/Vol] 1.90 mg/dL High 0.58 - 0.96 mg/dL [facility] Estimated Glomerular Filtration Rate 30 mL/min/1.73m Low >=60 mL/min/1.7 3m [facility] Glucose [Mass/Vol] 124 mg/dL High 74 - 99 mg/dL [facility] Potassium [Moles/Vol] 4.4 mmol/L 3.7 - 5.1 mmol/L [facility] Sodium [Moles/Vol] 134 mmol/L Low 136 - 144 mmol/L [facility] Urea nitrogen [Mass/Vol] 47 mg/dL High 7 - 21 mg/dL [facility] CBC panel Auto (Bld)on 09-02 Erythrocyte distribution width (RBC) [Ratio] 18.9 % High 11.5 - 15.0 % [facility] Hematocrit (Bld) [Volume fraction] 32.2 % Low 36.0 - 46.0 % [facility] Hemoglobin (Bld) [Mass/Vol] 9.7 g/dL Low 11.5 - 15.5 g/dL [facility] MCH (RBC) [Entitic mass] 25.7 pg Low 26.0 - 34.0 pg [facility] MCHC (RBC) [Mass/Vol] 30.1 g/dL Low 30.5 - 36.0 g/dL [facility] MCV (RBC) [Entitic vol] 85.4 fL 80.0 - 100.0 fL [facility] Nucleated RBC (Bld) [#/Vol] <0.01 k/uL [facility] Platelet mean volume (Bld) [Entitic vol] 10.5 fL 9.0 - 12.7 fL [facility] Platelets (Bld) [#/Vol] 370 10*3/uL 150 - 400 k/uL [facility] RBC (Bld) [#/Vol] 3.77 10*6/uL Low 3.90 - 5.20 m/uL [facility] WBC (Bld) [#/Vol] 8.62 10*3/uL 3.70 - 11.00 k/uL [facility] Basic metabolic 2000 panelon 08-31-2022 Anion gap [Moles/Vol] 13 mmol/L 9 - 18 mmol/L [facility] Calcium [Mass/Vol] 9.5 mg/dL 8.5 - 10. 2 mg/dL [facility] Chloride [Moles/Vol] 96 mmol/L Low 97 - 10 5 mmol/L [facility] CO2 [Moles/Vol] 25 mmol/L 22 - 30 mmol/L [facility] Creatinine [Mass/Vol] 1.89 mg/dL High 0.58 - 0.96 mg/dL [facility] Estimated Glomerular Filtration Rate 30 mL/min/1.73m Low >=60 mL/min/1.7 3m [facility] Glucose [Mass/Vol] 113 mg/dL High 74 - 99 mg/dL [facility] Potassium [Moles/Vol] 4.5 mmol/L 3.7 - 5.1 mmol/L [facility] Sodium [Moles/Vol] 134 mmol/L Low 136 - 144 mmol/L [facility] Urea nitrogen [Mass/Vol] 42 mg/dL High 7 - 21 mg/dL [facility] Basic metabolic 2000 panelon 08-30-2022 Anion gap [Moles/Vol] 19 mmol/L High 9 - 18 mmol/L [facility] Calcium [Mass/Vol] 9.1 mg/dL 8.5 - 10. 2 mg/dL [facility] Chloride [Moles/Vol] 96 mmol/L Low 97 - 10 5 mmol/L [facility] CO2 [Moles/Vol] 20 mmol/L Low 22 - 30 mmol/L [facility] Creatinine [Mass/Vol] 1.72 mg/dL High 0.58 - 0.96 mg/dL [facility] Estimated Glomerular Filtration Rate 34 mL/min/1.73m Low >=60 mL/min/1.7 3m [facility] Glucose [Mass/Vol] 135 mg/dL High 74 - 99 mg/dL [facility] Potassium [Moles/Vol] 4.1 mmol/L 3.7 - 5.1 mmol/L [facility] Sodium [Moles/Vol] 135 mmol/L Low 136 - 144 mmol/L [facility] Urea nitrogen [Mass/Vol] 38 mg/dL High 7 - 21 mg/dL [facility] CBC panel Auto (Bld)on 08-30 Erythrocyte distribution width (RBC) [Ratio] 19.0 % High 11.5 - 15.0 % [facility] Hematocrit (Bld) [Volume fraction] 32.8 % Low 36.0 - 46.0 % [facility] Hemoglobin (Bld) [Mass/Vol] 9.7 g/dL Low 11.5 - 15.5 g/dL [facility] MCH (RBC) [Entitic mass] 25.4 pg Low 26.0 - 34.0 pg [facility] MCHC (RBC) [Mass/Vol] 29.6 g/dL Low 30.5 - 36.0 g/dL [facility] MCV (RBC) [Entitic vol] 85.9 fL 80.0 - 100.0 fL [facility] Nucleated RBC (Bld) [#/Vol] <0.01 k/uL [facility] Platelet mean volume (Bld) [Entitic vol] 10.5 fL 9.0 - 12.7 fL [facility] Platelets (Bld) [#/Vol] 397 10*3/uL 150 - 400 k/uL [facility] RBC (Bld) [#/Vol] 3.82 10*6/uL Low 3.90 - 5.20 m/uL [facility] WBC (Bld) [#/Vol] 9.44 10*3/uL 3.70 - 11.00 k/uL [facility] MAGNESIUM BLDon 08-30-2022 Magnesium [Mass/Vol] 1.7 mg/dL 1.7 - 2 .3 mg/dL [facility] Basic metabolic 2000 panelon 08-27-2022 Anion gap [Moles/Vol] 12 mmol/L 9 - 18 mmol/L [facility] Calcium [Mass/Vol] 9.4 mg/dL 8.5 - 10. 2 mg/dL [facility] Chloride [Moles/Vol] 98 mmol/L 97 - 10 5 mmol/L [facility] CO2 [Moles/Vol] 27 mmol/L 22 - 30 mmol/L [facility] Creatinine [Mass/Vol] 1.62 mg/dL High 0.58 - 0.96 mg/dL [facility] Estimated Glomerular Filtration Rate 36 mL/min/1.73m Low >=60 mL/min/1.7 3m [facility] Glucose [Mass/Vol] 84 mg/dL 74 - 99 mg/dL [facility] Potassium [Moles/Vol] 4.2 mmol/L 3.7 - 5.1 mmol/L [facility] Sodium [Moles/Vol] 137 mmol/L 136 - 144 mmol/L [facility] Urea nitrogen [Mass/Vol] 42 mg/dL High 7 - 21 mg/dL [facility] Basic metabolic 2000 panelon 08-26-2022 Anion gap [Moles/Vol] 15 mmol/L 9 - 18 mmol/L [facility] Calcium [Mass/Vol] 9.2 mg/dL 8.5 - 10. 2 mg/dL [facility] Chloride [Moles/Vol] 97 mmol/L 97 - 10 5 mmol/L [facility] CO2 [Moles/Vol] 23 mmol/L 22 - 30 mmol/L [facility] Creatinine [Mass/Vol] 1.65 mg/dL High 0.58 - 0.96 mg/dL [facility] Estimated Glomerular Filtration Rate 35 mL/min/1.73m Low >=60 mL/min/1.7 3m [facility] Glucose [Mass/Vol] 104 mg/dL High 74 - 99 mg/dL [facility] Potassium [Moles/Vol] 4.2 mmol/L 3.7 - 5.1 mmol/L [facility] Sodium [Moles/Vol] 135 mmol/L Low 136 - 144 mmol/L [facility] Urea nitrogen [Mass/Vol] 41 mg/dL High 7 - 21 mg/dL [facility] CBC panel Auto (Bld)on 08-26 Erythrocyte distribution width (RBC) [Ratio] 18.7 % High 11.5 - 15.0 % [facility] Hematocrit (Bld) [Volume fraction] 33.8 % Low 36.0 - 46.0 % [facility] Hemoglobin (Bld) [Mass/Vol] 10.0 g/dL Low 11.5 - 15.5 g/dL [facility] MCH (RBC) [Entitic mass] 26.0 pg 26.0 - 34.0 pg [facility] MCHC (RBC) [Mass/Vol] 29.6 g/dL Low 30.5 - 36.0 g/dL [facility] MCV (RBC) [Entitic vol] 87.8 fL 80.0 - 100.0 fL [facility] Nucleated RBC (Bld) [#/Vol] <0.01 k/uL [facility] Platelet mean volume (Bld) [Entitic vol] 11.6 fL 9.0 - 12.7 fL [facility] Platelets (Bld) [#/Vol] 340 10*3/uL 150 - 400 k/uL [facility] RBC (Bld) [#/Vol] 3.85 10*6/uL Low 3.90 - 5.20 m/uL [facility] WBC (Bld) [#/Vol] 8.77 10*3/uL 3.70 - 11.00 k/uL [facility] HbA1c (Bld)on 08-24-2022 Average glucose Estimated from glycated hemoglobin (Bld) [Mass/Vol] 177 mg/dL [facility] HbA1c (Bld) [Mass fraction] 7.8 % High 4.3 - 5.6 % [facility] CBC panel Auto (Bld)on 08-23 Erythrocyte distribution width (RBC) [Ratio] 18.8 % High 11.5 - 15.0 % [facility] Hematocrit (Bld) [Volume fraction] 36.0 % 36.0 - 46.0 % [facility] Hemoglobin (Bld) [Mass/Vol] 10.7 g/dL Low 11.5 - 15.5 g/dL [facility] MCH (RBC) [Entitic mass] 26.5 pg 26.0 - 34.0 pg [facility] MCHC (RBC) [Mass/Vol] 29.7 g/dL Low 30.5 - 36.0 g/dL [facility] MCV (RBC) [Entitic vol] 89.1 fL 80.0 - 100.0 fL [facility] Nucleated RBC (Bld) [#/Vol] <0.01 k/uL [facility] Platelet mean volume (Bld) [Entitic vol] 12.0 fL 9.0 - 12.7 fL [facility] Platelets (Bld) [#/Vol] 273 10*3/uL 150 - 400 k/uL [facility] RBC (Bld) [#/Vol] 4.04 10*6/uL 3.90 - 5.20 m/uL [facility] WBC (Bld) [#/Vol] 8.10 10*3/uL 3.70 - 11.00 k/uL [facility] MAGNESIUM BLDon 08-23-2022 Magnesium [Mass/Vol] 1.7 mg/dL 1.7 - 2 .3 mg/dL [facility] CHEM 6 (LYTES, BUN CREA)on 1 10-21-2021 Anion gap [Moles/Vol] 11 mmol/L Normal 7-17 [facility] Comment on above: Performed By: #### C HM6, MGO #### [facility] (DEFAULT) [address] [address] Chloride [Moles/Vol] 100 mmol/L Normal 98-108 [facility] Comment on above: Performed By: #### Anju HM6, MGO #### [facility] (DEFAULT) [address] [place] [address] CO2 [Moles/Vol] 30 mmol/L Normal 21-31 [facility] Comment on above: Performed By: #### Anju HM6, MGO #### [facility] (DEFAULT) [address] [place] [address] Creatinine [Mass/Vol] 1.32 mg/dL High 0.50-1.20 [facility] Comment on above: Performed By: #### Anju HM6, MGO #### [facility] (DEFAULT) [address] [address] GFR/1.73 sq M.predicted among non-blacks MDRD (S/P/Bld) [Vol rate/Area] 46 mL/min/{1.73_m2} Low >=60 [facility] Comment on above: Result Comment: Repo rted eGFR is based on the CKD-EPI 2020 equation using creatinine, age, and sex. Performed By: #### C CHELA6, MGO #### [facility] (DEFAULT) [address] [place] [address] Potassium [Moles/Vol] 3.6 mmol/L Normal 3.5-5.0 [facility] Comment on above: Performed By: #### C HM6, MGO #### [facility] (DEFAULT) [address] [place] [address] Sodium [Moles/Vol] 137 mmol/L Normal 135-145 [facility] Comment on above: Performed By: #### C HM6, MGO #### [facility] (DEFAULT) [address] [place] [address] Urea nitrogen [Mass/Vol] 27 mg/dL High 7-25 [facility] Comment on above: Performed By: #### Anju HM6, MGO #### [facility] (DEFAULT) [address] [place] [address] Urea nitrogen/Creatinine [Mass ratio] 20 mg/mg Normal [facility] Comment on above: Performed By: #### C HM6, MGO #### [facility] (DEFAULT) [address] [place] [address] Anion gap [Moles/Vol] 11 mmol/L 7 - 17 mmol/L [facility] Chloride [Moles/Vol] 100 mmol/L 98 - 10 8 mmol/L [facility] CO2 [Moles/Vol] 30 mmol/L 21 - 31 mmol/L [facility] Creatinine [Mass/Vol] 1.32 mg/dL High 0.50 - 1.20 mg/dL [facility] GFR/1.73 sq M.predicted CKD-EPI (S/P/Bld) [Vol rate/Area] 46 Low - PINF [facility] Interpretation and review of laboratory results Abnormal [facility] Potassium [Moles/Vol] 3.6 mmol/L 3.5 - 5.0 mmol/L [facility] Sodium [Moles/Vol] 137 mmol/L 135 - 145 mmol/L [facility] Urea nitrogen [Mass/Vol] 27 mg/dL High 7 - 25 mg/dL [facility] Urea nitrogen/Creatinine [Mass ratio] 20 mg/mg [facility] GLUCOSE POCon 08-20-2022 Glucose [Mass/Vol] 210 mg/dL High 70 - 99 mg/dL [facility] Interpretation and review of laboratory results Abnormal [facility] POC Sample Type CAPBL [facility] Glucose [Mass/Vol] 170 mg/dL High 70 - 99 mg/dL [facility] Interpretation and review of laboratory results Abnormal [facility] POC Sample Type CAP[facility] MAGNESIUMon 08-20-2022 Magnesium [Mass/Vol] 1.6 mg/dL Normal 1.6-2.6 [facility] Comment on above: Performed By: #### C HM6, MGO #### [facility] (DEFAULT) [address] [place] [address] Interpretation and review of laboratory results Normal [facility] Magnesium [Mass/Vol] 1.6 mg/dL 1.6 - 2 .6 mg/dL [facility] No Panel Informationon 08-20 [facility] SARS-COV-2 RAPIDon 2 SARS-CoV-2 (COVID-19) RNA SRINIVAS+probe Ql (Unsp spec) Not detected Normal NOT DETECTED [facility] Comment on above: Order Comment: Use r polina, foam, polyester or flocked swabs to collect a nasopharyngeal specimen. After collection, fold over the open end of the collection sleeve and seal with patient lab label, double bag in biohazard bag, and transport to the lab [facility], no later than 60 minutes from collection. Collection must be done while wearing N-95 mask, eye protection, gown and gloves. Result Comment: [facility] Negative results do not preclude SARS-CoV-2 infection and should not be used as the sole basis for treatment or other patient management decisions. Optimum specimen types and timing for peak viral levels during infections caused by SARS-CoV-2 has not been determined. The possibility of a false negative result should especially be considered if the patient's recent exposures or clinical presentation suggest that SARS-CoV-2 infection is probable, and diagnostic tests for other causes of illness (e.g., other respiratory illness) are negative. Collection of a new specimen and re-testing may be necessary if the patient is critically ill or clinically deteriorating. This test was performed using isothermal nucleic acid amplification technology for the qualitative detection of SARS-CoV-2 nucleic acid. The test has been authorized by the FDA under an emergency use authorization for use by authorized laboratories. Performed By: #### L [email or web address] #### [facility] (DEFAULT) [address] [address] SARS-CoV-2 (COVID-19) RNA NA A+probe Ql (Unsp spec)Ordered By: Carolin Ro on 08-20-2022 Interpretation and review of laboratory results Normal [facility] SARS-CoV-2 (COVID-19) RdRp gene SRINIVAS+probe Ql (Resp) Not detected NOT DETECTED [facility] CBC AND ELECTRONIC DIFFon Basophils (Bld) [#/Vol] 0.04 10*3/uL Normal 0.00-0.15 [facility] Comment on above: Performed By: #### M RILEY MONIQUE7 #### [facility] (DEFAULT) [address] [address] Basophils/100 WBC (Bld) 0.4 % Normal [facility] Comment on above: Performed By: #### M RILEY MONIQUE7 #### [facility] (DEFAULT) [address] [address] DIFF STATUS Electronic Differential Normal [facility] Comment on above: Performed By: #### RILEY ESCOBAR7 #### [facility] (DEFAULT) [address] [place] [address] Eosinophils (Bld) [#/Vol] 0.16 10*3/uL Normal 0.00-0.42 [facility] Comment on above: Performed By: #### RILEY ESCOBAR7 #### [facility] (DEFAULT) [address] [place] [address] Eosinophils/100 WBC (Bld) 1.8 % Normal [facility] Comment on above: Performed By: #### RILEY ESOCBAR7 #### [facility] (DEFAULT) [address] [address] Hematocrit (Bld) [Volume fraction] 34.4 % Low 34.9-44.3 [facility] Comment on above: Result Comment: This is an appended report. These results have been appended to a previously preliminary verified report. Performed By: #### SURAJ ESCOBAR #### [facility] (DEFAULT) [address] [place] [address] Hemoglobin (Bld) [Mass/Vol] 10.4 g/dL Low 11.4-15.2 [facility] Comment on above: Result Comment: This is an appended report. These results have been appended to a previously preliminary verified report. Performed By: #### RILEY ESCOBAR7 #### [facility] (DEFAULT) [address] [place] [address] Immature Grans % 0.4 % Normal [facility] Comment on above: Performed By: #### RILEY ESCOBAR7 #### [facility] (DEFAULT) [address] [address] Immature Grans Absolute 0.04 K/uL Normal <=0.08 [facility] Comment on above: Performed By: #### RILEY ESCOBAR7 #### [facility] (DEFAULT) [address] [place] [address] Lymphocytes (Bld) [#/Vol] 3.20 10*3/uL Normal 1.16-3.51 [facility] Comment on above: Performed By: #### RILEY ESCOBAR7 #### [facility] (DEFAULT) [address] [address] Lymphocytes/100 WBC (Bld) 35.4 % Normal [facility] Comment on above: Performed By: #### RILEY ESCOBAR7 #### [facility] (DEFAULT) [address] [address] MCV (RBC) [Entitic vol] 87.8 fL Normal 79.6-97.7 [facility] Comment on above: Result Comment: This is an appended report. These results have been appended to a previously preliminary verified report. Performed By: #### RILEY ESCOBAR7 #### [facility] (DEFAULT) [address] [address] Mean Cell Hgb 26.5 pg Normal 25.9-33.9 [facility] Comment on above: Result Comment: This is an appended report. These results have been appended to a previously preliminary verified report. Performed By: #### SURAJ ESCOBAR #### [facility] (DEFAULT) [address] [address] Mean Cell Hgb Conc 30.2 g/dL Low 31.4-35.9 [facility] Comment on above: Result Comment: This is an appended report. These results have been appended to a previously preliminary verified report. Performed By: #### SURAJ ESCOBAR #### [facility] (DEFAULT) [address] [address] Mean Platelet Volume Normal [facility] Comment on above: Result Comment: Not measured Performed By: #### RILEY ESCOBAR7 #### [facility] (DEFAULT) [address] [address] Monocytes (Bld) [#/Vol] 0.96 10*3/uL High 0.22-0.87 [facility] Comment on above: Performed By: #### RILEY ESCOBAR7 #### [facility] (DEFAULT) [address] [address] Monocytes/100 WBC (Bld) 10.6 % Normal [facility] Comment on above: Performed By: #### RILEY ESCOBAR7 #### [facility] (DEFAULT) [address] [address] Nucleated RBC 0.0 /100 WBC Normal <=0.2 [facility] Comment on above: Result Comment: This is an appended report. These results have been appended to a previously preliminary verified report. Performed By: #### RILEY ESCOBAR7 #### [facility] (DEFAULT) [address] [address] Platelets (Bld) [#/Vol] 195 10*3/uL Normal 150-393 [facility] Comment on above: Result Comment: This is an appended report. These results have been appended to a previously preliminary verified report. Performed By: #### RILEY ESCOBAR7 #### [facility] (DEFAULT) [address] [address] RBC (Bld) [#/Vol] 3.92 10*6/uL Normal 3.91-5.04 [facility] Comment on above: Result Comment: This is an appended report. These results have been appended to a previously preliminary verified report. Performed By: #### SURAJ ESCOBAR #### [facility] (DEFAULT) [address] [place] [address] RBC Distribution 19.8 % High 10.8-14.9 [facility] Comment on above: Result Comment: This is an appended report. These results have been appended to a previously preliminary verified report. Performed By: #### RILEY ESCOBAR7 #### [facility] (DEFAULT) [address] [place] [address] Segs + Bands Auto 51.4 % Normal [facility] Comment on above: Performed By: #### SURAJ ESCOBAR #### [facility] (DEFAULT) [address] [place] [address] Segs + Bands,Absolute Auto 4.63 K/uL Normal 1.64-7.28 [facility] Comment on above: Performed By: #### RILEY ESCOBAR7 #### [facility] (DEFAULT) [address] [place] [address] WBC (Bld) [#/Vol] 9.03 10*3/uL Normal 3.99-11.19 [facility] Comment on above: Result Comment: This is an appended report. These results have been appended to a previously preliminary verified report. Performed By: #### SURAJ ESCOBAR #### [facility] (DEFAULT) [address] [place] [address] Basophils (Bld) [#/Vol] 0.04 10*3/uL 0.00 - 0.15 K/uL [facility] Basophils/100 WBC (Bld) 0.4 % [facility] Differential cell count method Nom (Bld) Electronic Differential [facility] Eosinophils (Bld) [#/Vol] 0.16 10*3/uL 0.00 - 0.42 K/uL [facility] Eosinophils/100 WBC (Bld) 1.8 % [facility] Erythrocyte distribution width (RBC) [Ratio] 19.8 % High 10.8 - 14.9 % [facility] Hematocrit (Bld) [Volume fraction] 34.4 % Low 34.9 - 44.3 % [facility] Hemoglobin (Bld) [Mass/Vol] 10.4 g/dL Low 11.4 - 15.2 g/dL [facility] Immature granulocytes (Bld) [#/Vol] 0.04 10*3/uL NINF - 0.08 K/uL [facility] Immature granulocytes/100 WBC (Bld) 0.4 % [facility] Interpretation and review of laboratory results Abnormal [facility] Lymphocytes (Bld) [#/Vol] 3.20 10*3/uL 1.16 - 3.51 K/uL [facility] Lymphocytes/100 WBC (Bld) 35.4 % [facility] MCH (RBC) [Entitic mass] 26.5 pg 25.9 - 33.9 pg [facility] MCHC (RBC) [Mass/Vol] 30.2 g/dL Low 31.4 - 35.9 g/dL [facility] MCV (RBC) [Entitic vol] 87.8 fL 79.6 - 97.7 fL [facility] Monocytes (Bld) [#/Vol] 0.96 10*3/uL High 0.22 - 0.87 K/uL [facility] Monocytes/100 WBC (Bld) 10.6 % [facility] Neutrophils (Bld) [#/Vol] 4.63 10*3/uL 1.64 - 7.28 K/uL [facility] Nucleated RBC/100 WBC (Bld) [Ratio] 0.0 % [facility] Platelet mean volume (Bld) [Entitic vol] [facility] Platelets (Bld) [#/Vol] 195 10*3/uL 150 - 393 K/uL [facility] RBC (Bld) [#/Vol] 3.92 10*6/uL [facility] Segmented neutrophils/100 WBC (Bld) 51.4 % [facility] WBC (Bld) [#/Vol] 9.03 10*3/uL 3.99 - 11.19 K/uL [facility] CHEM 7 (LYTES,BUN,CREA,GLUC) on 08-19-2022 Anion gap [Moles/Vol] 11 mmol/L Normal 7-17 [facility] Comment on above: Performed By: #### SURAJ ESCOBAR #### [facility] (DEFAULT) [address] [place] [address] Chloride [Moles/Vol] 103 mmol/L Normal 98-108 [facility] Comment on above: Performed By: #### SURAJ ESCOBAR #### [facility] (DEFAULT) [address] [place] [address] CO2 [Moles/Vol] 28 mmol/L Normal 21-31 [facility] Comment on above: Performed By: #### Jaron MONIQUE CHM7 #### [facility] (DEFAULT) [address] [place] [address] Creatinine [Mass/Vol] 1.38 mg/dL High 0.50-1.20 [facility] Comment on above: Performed By: #### Jaron MONIQUE CHM7 #### [facility] (DEFAULT) [address] [place] [address] GFR/1.73 sq M.predicted among non-blacks MDRD (S/P/Bld) [Vol rate/Area] 44 mL/min/{1.73_m2} Low >=60 [facility] Comment on above: Result Comment: Repo rted eGFR is based on the CKD-EPI 2020 equation using creatinine, age, and sex. Performed By: #### RILEY ESCOBAR7 #### [facility] (DEFAULT) [address] [place] [address] Glucose [Mass/Vol] 145 mg/dL High 70-99 [facility] Comment on above: Performed By: #### Jaron MONIQUE CHM7 #### [facility] (DEFAULT) [address] [place] [address] Osmolality [Osmolality] 298 mosm/kg Normal 278-305 [facility] Comment on above: Performed By: #### Jaron MONIQUE CHM7 #### [facility] (DEFAULT) [address] [place] [address] Potassium [Moles/Vol] 3.5 mmol/L Normal 3.5-5.0 [facility] Comment on above: Performed By: #### Jaron MONIQUE CHM7 #### [facility] (DEFAULT) [address] [place] [address] Sodium [Moles/Vol] 138 mmol/L Normal 135-145 [facility] Comment on above: Performed By: #### Jaron MONIQUE CHM7 #### [facility] (DEFAULT) [address] [place] [address] Urea nitrogen [Mass/Vol] 32 mg/dL High 7-25 [facility] Comment on above: Performed By: #### Jarno MONIQUE CHM7 #### [facility] (DEFAULT) [address] [place] [address] Urea nitrogen/Creatinine [Mass ratio] 23 mg/mg Normal [facility] Comment on above: Performed By: #### Jaron MONIQUE CHM7 #### [facility] (DEFAULT) [address] [place] [address] CHEM 7 (LYTES,BUN,CREA,GLUC) Ordered By: John Meyers on 08-19-2022 Anion gap [Moles/Vol] 11 mmol/L 7 - 17 mmol/L [facility] Chloride [Moles/Vol] 103 mmol/L 98 - 10 8 mmol/L [facility] CO2 [Moles/Vol] 28 mmol/L 21 - 31 mmol/L [facility] Creatinine [Mass/Vol] 1.38 mg/dL High 0.50 - 1.20 mg/dL [facility] GFR/1.73 sq M.predicted CKD-EPI (S/P/Bld) [Vol rate/Area] 44 Low - PINF [facility] Glucose [Mass/Vol] 145 mg/dL High 70 - 99 mg/dL [facility] Interpretation and review of laboratory results Abnormal [facility] Osmolality Calc [Osmolality] 298 [facility] Potassium [Moles/Vol] 3.5 mmol/L 3.5 - 5.0 mmol/L [facility] Sodium [Moles/Vol] 138 mmol/L 135 - 145 mmol/L [facility] Urea nitrogen [Mass/Vol] 32 mg/dL High 7 - 25 mg/dL [facility] Urea nitrogen/Creatinine [Mass ratio] 23 mg[facility]ITORIN G STRIPon 08-19-2022 [facility] GLUCOSE POCon 08-19-2022 Glucose [Mass/Vol] 229 mg/dL High 70 - 99 mg/dL [facility] Interpretation and review of laboratory results Abnormal [facility] POC Sample Type CAPBL [facility] Glucose [Mass/Vol] 155 mg/dL High 70 - 99 mg/dL [facility] Interpretation and review of laboratory results Abnormal [facility] POC Sample Type CAP[facility] Glucose [Mass/Vol] 173 mg/dL High 70 - 99 mg/dL [facility] Interpretation and review of laboratory results Abnormal [facility] POC Sample Type [facility] Glucose [Mass/Vol] 156 mg/dL High 70 - 99 mg/dL [facility] Interpretation and review of laboratory results Abnormal [facility] POC Sample [facility] MAGNESIUMon 08-19-2022 Magnesium [Mass/Vol] 1.5 mg/dL Low 1.6-2.6 [facility] Comment on above: Performed By: #### M [facility] #### [facility] (DEFAULT) [address] [place] [address] Interpretation and review of laboratory results Abnormal [facility] Magnesium [Mass/Vol] 1.5 mg/dL Low 1.6 - 2 .6 mg/dL [facility] XR WRIST LEFT 3 VIEWSon XR WRIST LEFT 3 VIEWS EXAM: XR WRIST LEF T 3 VIEWS, 08/19/2022 15:15 PM COMPARISON: No prior studies available for comparison. CLINICAL INDICATIONS: s/p fall at home, r/o fx RELEVANT CLINICAL HISTORY: FINDINGS: 3 images obtained. Soft Tissue: Soft tissue swelling is present. Bone: No acute osseous abnormality is identified. Carpal Joints: Carpal alignment is anatomic. Mild degenerative changes are present. Ulnar length: There is ulnar neutral variance. DRUJ: The distal radioulnar joint is anatomically aligned. IMPRESSION: No acute fracture or dislocation. Soft tissue swelling. Normal [facility] XR Wrist - left 3 [facility] RADIOLOGY RADIOLOGY [facility] Radiology Study observation (narrative) [facility] XR Wrist - left 3 ViewsOrder ed By: Anatoliy Cavanaugh on 08-19-2022 [facility] Work Phone: B-TYPE NATRIURETIC PEPTIDE ( BRAIN)on 08-18-2022 Interpretation and review of laboratory results Abnormal [facility] Natriuretic peptide B (Bld) [Mass/Vol] 1109 pg/mL High 0 - 100 pg/mL [facility] Natriuretic peptide B (Bld) [Mass/Vol] 1109 pg/mL High 0-100 [facility] Comment on above: Performed By: #### A 1CB #### [facility] (DEFAULT) [address] [place] [address] CONTINUOUS CARDIAC MONITORIN G STRIPon 08-18-2022 [facility] GLUCOSE POCon 08-18-2022 Glucose [Mass/Vol] 227 mg/dL High 70 - 99 mg/dL [facility] Interpretation and review of laboratory results Abnormal [facility] POC Sample Type CAPBL [facility] Glucose [Mass/Vol] 246 mg/dL High 70 - 99 mg/dL [facility] Interpretation and review of laboratory results Abnormal [facility] POC Sample Type CAPBL [facility] Glucose [Mass/Vol] 224 mg/dL High 70 - 99 mg/dL [facility] Interpretation and review of laboratory results Abnormal [facility] POC Sample Type [facility] Glucose [Mass/Vol] 151 mg/dL High 70 - 99 mg/dL [facility] Interpretation and review of laboratory results Abnormal [facility] POC Sample Type CAPBL [facility] PLATELET COUNTon 08-18-2022 Platelet mean volume (Bld) [Entitic vol] 12.1 fL Normal 8.5-12.2 [facility] Comment on above: Performed By: #### A 1CB #### [facility] (DEFAULT) [address] [place] [address] Platelets (Bld) [#/Vol] 180 10*3/uL Normal 150-393 [facility] Comment on above: Performed By: #### A 1CB #### [facility] (DEFAULT) [address] [place] [address] Interpretation and review of laboratory results Normal [facility] Platelet mean volume (Bld) [Entitic vol] 12.1 fL 8.5 - 12.2 fL [facility] Platelets (Bld) [#/Vol] 180 10*3/uL 150 - 393 K/uL [facility] Portable XR Chest Viewson RADIOLOGY RADIOLOGY [facility] Radiology Study observation (narrative) [facility] Portable XR Chest ViewsOrder ed By: William Null on 08-18-2022 [facility] Work Phone: VENOUS BLOOD GASon 2 Base Excess -1.5 mmol/L Normal -3.0-3.0 [facility] Comment on above: Performed By: #### G [id number] #### [facility] (DEFAULT) [address] [place] [address] HCO3 (Bld) [Moles/Vol] 24 mmol/L Normal 22-29 [facility] Comment on above: Performed By: #### G [id number] #### [facility] (DEFAULT) [address] [place] [address]60 PCO2 45 mm Hg Normal 36-52 [facility] Comment on above: Performed By: #### G [id number] #### [facility] (DEFAULT) [address] [place] [address] pH (Bld) 7.34 [pH] Normal 7.32-7.43 [facility] Comment on above: Performed By: #### G [id number] #### [facility] (DEFAULT) [address] [place] [address] 768[address] PO2 < Normal [facility] Comment on above: Result Comment: Veno us pO2 is not recommended for the evaluation of oxygen status, clinical correlation is recommended. Performed By: #### G [id number] #### [facility] (DEFAULT) [address] [place] [address] sO2 41 % Low 70-80 [facility] Comment on above: Performed By: #### G [id number] #### [facility] (DEFAULT) [address] [place] [address] Specimen type Nom (Spec) Venous Normal [facility] Comment on above: Performed By: #### G [id number] #### [facility] (DEFAULT) [address] [place] [address] Base excess Calc (Bld) [Moles/Vol] -1.5000 mmol/L -3.0 - 3.0 mmol/L [facility] CO2 (Bld) [Partial pressure] 45 mm[Hg] [facility] HCO3 (Bld) [Moles/Vol] 24 mmol/L 22 - 29 mmol/L [facility] Interpretation and review of laboratory results Abnormal [facility] Oxygen (Bld) [Partial pressure] mm Hg [facility] Oxygen saturation in Blood 41 % Low 70 - 80 % [facility] pH (Bld) 7.34 [pH] 7.32 - 7.43 [facility] Specimen source Nom (Unsp spec) Venous [facility] XR CHEST PORTABLEon 08-18-20 XR CHEST PORTABLE EXAM: XR CHEST MICHELE SHAH, 08/18/2022 08:19 AM COMPARISON: August 12, 2022 CLINICAL INDICATIONS: evaluate for pulmonary edema RELEVANT CLINICAL HISTORY: Please wet read; FINDINGS: (Adequate technique) Implanted Devices: None Thorax: Heart size is enlarged. A moderate right pleural effusion appears slightly increased in size. Small pleural effusion on the left. No overt pulmonary edema. IMPRESSION: Slightly increased size of right pleural effusion. No overt pulmonary edema. Normal [facility] CONTINUOUS CARDIAC MONITORIN G STRIPon 08-17-2022 [facility] Cardiac echo study Procedure Ordered By: Chantelle Del Real on 08-17-2022 Ao peak rayo 1.04 m/s [facility] Work Phone: Ao VTI 16.95 cm [facility] Work Phone: Ascending aorta 4.11 cm [facility] Work Phone: AV LVOT peak gradient 1 mmHg [facility] Work Phone: AV mean gradient 3 mmHg [facility] Work Phone: AV peak gradient 4 mmHG [facility] Work Phone: AV valve area 1.41 cm2 [facility] Work Phone: AV Velocity Ratio 0.49 [facility] Work Phone: SAMI (continuity Vmax) 1.54 cm2 [facility] Work Phone: SAMI (continuity VTI) 1.41 cm2 [facility] Work Phone: SAMI index (continuity Vmax) 0.78 m/s [facility] Work Phone: SAMI index (continuity VTI) 0.72 cm2/m2 [facility] Work Phone: Avg e' pk rayo 0.07 m/s [facility] Work Phone: Avg E/e' ratio 9.45 [facility] Work Phone: Body surface area Derived from formula 1.97 m2 [facility] Work Phone: BP EF 19 % [facility] Work Phone: DI (Vmax) 0.49 [facility] Work Phone: DI (VTI) 0.45 m/2 [facility] Work Phone: E wave decelartion time 172.78 msec [facility] Work Phone: e' lateral pk rayo 0.0984 m/s [facility] Work Phone: e' lateral pk rayo 0.10 m/s [facility] Work Phone: e' septal pk rayo 0.0504 m/s [facility] Work Phone: e' septal pk rayo 0.05 m/s [facility] Work Phone: E/e' lateral ratio 6.40 [facility] Work Phone: E/e' septal ratio 12.50 [facility] Work Phone: EF SP 2CH 33 [facility] Work Phone: EF SP 4CH 6 [facility] Work Phone: EST RAP 15.00 mmHg [facility] Work Phone: EST RVSP 49 mmHg [facility] Work Phone: FS 11 % 28 - 44 % [facility] Work Phone: IVC ostium 2.30 cm [facility] Work Phone: IVS 0.97 cm [facility] Work Phone: LA AREA 2CH 26.57 cm2 [facility] Work Phone: LA area 4CH 22.93 cm2 [facility] Work Phone: LA ESV BP (MOD) 79 [facility]: LA ESV BP (MOD) index 40 mL/m2 [facility] Work Phone: LA ESV SP 2CH (MOD) 89 mL [facility] Work Phone: LA ESV SP 4CH (MOD) 68 mL [facility] Work Phone: LV EDV BP 170 mL [facility] Work Phone: LV EDV SP 2CH 192 mL [facility] Work Phone: LV EDV SP 4CH 151 mL [facility] Work Phone: LV ESV BP 137 mL [facility] Work Phone: LV ESV SP 2CH 129 mL [facility] Work Phone: LV ESV SP 4CH 142 mL [facility] Work Phone: LV mass 164.45 g [facility] Work Phone: LV Mass Index 83.5 g/m2 [facility] Work Phone: LV RWT 0.40 [facility] Work Phone: LV stroke volume BP (ml) 33 mL [facility] Work Phone: LV stroke volume index BP 16.75 mL/m2 [facility] Work Phone: LVIDD 4.82 cm [facility] Work Phone: LVIDS 4.29 cm [facility] Work Phone: LVOT area 3.14 cm2 [facility] Work Phone: LVOT diameter 2.00 cm [facility] Work Phone: LVOT peak rayo 0.51 m/s [facility] Work Phone: LVOT peak VTI 7.61 cm [facility] Work Phone: LVOT stroke volume 24 cm3 [facility] Work Phone: LVOT stroke volume index 12.13 ml/m2 [facility] Work Phone: Mr max rayo 4.41 m/s [facility] Work Phone: MR VTI 130.00 cm [facility] Work Phone: MV pk E rayo 0.63 m/s [facility] Work Phone: MV stenosis pressure 1/2 time 50.11 ms [facility] Work Phone: MV valve area p 1/2 method 4.39 cm2 [facility] Work Phone: [facility]SU AV VTI RATIO PRE STRESS 0.45 [facility] Work Phone: OSU ECHO LV BIPLANE SYSTOLIC VOLUME INDEX 69.54 mL/m2 [facility] Work Phone: [facility]SU ECHO LV BP DIASTOLIC VOLUME INDEX 86.29 mL/m2 [facility] Work Phone: [facility] ECHO MR PEAK GRADIENT 77.87 mmHg [facility] Work Phone: OSU RVOT VTI RATIO 0.45 [facility] Work Phone: PV mean gradient 1 mmHg [facility] Work Phone: PV peak gradient 2 mmHg [facility] Work Phone: PV PK RAYO 0.64 m/s [facility] Work Phone: PV VTI 13.18 cm [facility] Work Phone: PW 0.97 cm [facility] Work Phone: RA vol index 4CH (MOD) 38.07 mL/m2 [facility] Work Phone: Right atrium volume 4 chamber method of disks 75 mL [facility] Work Phone: RV Area diastolic 29.10 cm2 [facility] Work Phone: RV Area systolic 24.10 cm2 [facility] Work [facility]: RV basal diam 4.00 cm [facility] Work Phone: RV Fractional area change 17.2 % [facility] Work Phone: RV long diam 9.00 cm [facility] Work Phone: RV mid diam 2.30 cm [facility] Work Phone: RV S' 4.44 cm/s [facility] Work Phone: RVOT peak gradient 0 mmHg [facility] Work Phone: RVOT peak rayo 0.33 m/s [facility] Work Phone: RVOT peak VTI 5.91 cm [facility] Work Phone: Sinus 3.05 cm [facility] Work Phone: STJ 2.95 cm [facility] Work Phone: Stroke Volume 24 cm/mL [facility] Work Phone: Stroke volume index 12 [facility] Work Phone: TAPSE 1.10 cm [facility] Work Phone: TR pk grad 34 mmHg [facility] Work Phone: TR pk rayo 2.90 m/s [facility] Work Phone: [facility] Work Phone: Cardiac echo study Procedure on 08-17-2022 [facility] ECHOCARDIOGRAMon 08-17-2022 Echocardiography ? Dilated LV with se gaudencio global systolic dysfunction. EF < 20%. ? Abnormal diastolic function, at least grade II. ? Normal RV size with moderate to severe systolic dysfunction. ? Mild biatrial enlargement. ? Mild mitral regurgitation. ? Moderate tricuspid regurgitation. ? Estimated RVSP 49mmHg. Using CO jet, estimated mPAP is 38mmHg, estimated PADP 25mmHg. ? No prior echo available for comparison. Table formatting from the original result was not included. Images from the original result were not included. Facility [facility] Patient Information Patient Name Camille Dawkins Legal Sex Female Indication for Exam Priority: Routine Dx: Cerebrovascular accident (CVA), unspecified mechanism [I63.9 (ICD-10-CM)] Order Question Reason for Exam Stroke Interpretation Summary ? Dilated LV with severe global systolic dysfunction. EF < 20%. ? Abnormal diastolic function, at least grade II. ? Normal RV size with moderate to severe systolic dysfunction. ? Mild biatrial enlargement. ? Mild mitral regurgitation. ? Moderate tricuspid regurgitation. ? Estimated RVSP 49mmHg. Using CO jet, estimated mPAP is 38mmHg, estimated PADP 25mmHg. ? No prior echo available for comparison. Findings Left Ventricle Chamber size is enlarged. Normal wall thickness. Normal global wall motion. Regional wall motion is normal. The ejection fraction is 19%. Ejection fraction is normal. Diastolic function is abnormal. Right Ventricle Chamber size is normal. Normal wall thickness. Segmental wall motion is normal. Systolic function is moderately reduced. Right ventricular S' is 4.44 cm/s. Tricuspid annular plane systolic excursion is 1.10 cm. Fractional area change equals 17.2%. Left Atrium Chamber size is mildly enlarged. Right Atrium Chamber size is mildly enlarged. Septum The atrial septum is normal. Mitral Valve Non-specific leaflet thickening. Leaflet mobility is normal. Mild regurgitation. No valve stenosis. Aortic Valve Trileaflet valve. Leaflet sclerosis visualized. Leaflet mobility is normal. No regurgitation. No stenosis. Tricuspid Valve Normal leaflets. Leaflet mobility is normal. Moderate regurgitation. No stenosis. Estimated right ventricular systolic pressure is 49 mmHg. Pulmonic Valve Normal structure. Trace regurgitation. No stenosis. Aorta No dilation to extent seen. Pericardium Appears normal. No pericardial effusion. IVC/SVC The inferior vena cava is enlarged. The inferior vena cava structure is abnormal. The diameter is >21 mm and decreases <50% during inspiration. Reading Providers Reading Role Read Date Chantelle Del Real MD Test Electronic Console Display Operator, Echo [place] 08/17/2022 Wall Scoring Score Index: 2.00 The left ventricular wall motion is globally hypokinetic. Left Heart Measurements LV - Systole LVIDD 4.82 cm IVS 0.97 cm LVIDS 4.29 cm PW 0.97 cm LV RWT 0.4 LV Mass Index 83.5 g/m2 LV EDV BP 170 mL LV ESV BP 137 mL BP EF 19 % LV stroke volume BP (ml) 33 mL LV stroke volume index BP 16.75 mL/m2 LV - Diastole MV pk E rayo 0.63 m/s e' septal pk rayo 0.05 m/s e' lateral pk rayo 0.1 m/s Avg e' pk rayo 0.07 m/s E/e' septal ratio 12.5 E/e' lateral ratio 6.4 Avg E/e' ratio 9.45 LV - HCM AV LVOT peak gradient 1 mmHg Left Atrium LA ESV SP 4CH (MOD) 68 mL LA ESV SP 2CH (MOD) 89 mL LA ESV BP (MOD) index 40 mL/m2 Right Heart Measurements RV - 2D RV basal diam 4 cm RV mid diam 2.3 cm RV long diam 9 cm RV Area diastolic 29.1 cm2 RV Area systolic 24.1 cm2 RV Fractional area change 17.2 % RV - Doppler TAPSE 1.1 cm RV S' 4.44 cm/s Right Atrium RA vol index 4CH (MOD) 38.07 mL/m2 EST RAP 15 mmHg Great Vessels Aortic Root - End Diastolic Sinus 3.05 cm STJ 2.95 cm Ascending aorta 4.11 cm Inferior Vena Cava IVC ostium 2.3 cm Doppler Measurements - Aortic Valve Stenosis LVOT diameter 2 cm LVOT area 3.14 cm2 LVOT peak rayo 0.51 m/s LVOT peak VTI 7.61 cm Stroke Volume 24 cm/mL Stroke volume index 12 Ao peak rayo 1.04 m/s Ao VTI 16.95 cm AV peak gradient 4 mmHG AV mean gradient 3 mmHg DI (VTI) 0.45 m/2 DI (Vmax) 0.49 SAMI (continuity Vmax) 1.54 cm2 SAMI index (continuity Vmax) 0.78 m/s SAMI (continuity VTI) 1.41 cm2 SAMI index (continuity VTI) 0.72 cm2/m2 LVOT stroke volume 24 cm3 LVOT stroke volume index 12.13 ml/m2 Doppler Measurements - Mitral Valve Stenosis MV pk E rayo 0.63 m/s MV stenosis pressure 1/2 time 50.11 ms MV valve area p 1/2 method 4.39 cm2 PISA-MS MV pk E rayo 0.63 m/s PISA-MR Mr max rayo 4.41 m/s MR VTI 130 cm Doppler Measurements - Tricuspid Valve Stenosis IVC ostium 2.3 cm (more content not included)... Normal [facility] GLUCOSE POCon 08-17-2022 Glucose [Mass/Vol] 221 mg/dL High 70 - 99 mg/dL [facility] Interpretation and review of laboratory results Abnormal [facility] POC Sample Type CAPBL [facility] Glucose [Mass/Vol] 189 mg/dL High 70 - 99 mg/dL [facility] Interpretation and review of laboratory results Abnormal [facility] POC Sample Type CAPBL [facility] Glucose [Mass/Vol] 111 mg/dL High 70 - 99 mg/dL [facility] Glucose [Mass/Vol] 168 mg/dL High 70 - 99 mg/dL [facility] No Panel Informationon 08-17 Interpretation and review of laboratory results Abnormal [facility] POC Sample Type CAPBL [facility] RF videography Hypopharynx a nd Esophagus Views W liquid and paste contrast PO during swallowingon 08-17-2022 RADIOLOGY RADIOLOGY [facility] Radiology Study observation (narrative) [facility] RF videography Hypopharynx a nd Esophagus Views W liquid and paste contrast PO during swallowingOrdered By: Maged Chacon on 08-17-2022 [facility] Work Phone: XR FLUORO MODIFIED BARIUM SW ALLOW WITH SPEECHon 08-17-2022 XR FLUORO MODIFIED BARIUM SWALLOW WITH SPEECH EXAM: XR FLUORO MODIFIED BARIUM SWALLOW WITH SPEECH, 08/17/2022 10:04 AM COMPARISON: No prior MBS studies available for comparison. CLINICAL INDICATIONS: dysphagia TECHNIQUE: Multiple barium consistencies (thin, puree and solid) were administered to evaluate the swallow. Lateral videofluoroscopy was performed in conjunction with Speech Pathology. TOTAL FLUORO TIME: 1.1 min FINDINGS: Oral Phase: Oral transit and bolus formation are delayed, most notably with food textures. Bolus control is reduced resulting in persistent premature spillage of liquids into the pharynx. Multiple dental fillings are present. Pharyngeal Phase: Transient laryngeal penetration, without aspiration, intermittently occurs with thin liquid. No laryngeal penetration or aspiration occur with puree or solid. Hyoid excursion and laryngeal elevation are mildly reduced. The pharyngeal phase is otherwise functional. Very mild residue solid texture residue remains in the vallecula and resolves with a liquid wash. There is no other significant residue. Cervical Phase: Some trace stasis is inconsistently observed in the lower cervical esophagus. The cervical phase is otherwise functional. There are degenerative changes of the cervical spine. The prevertebral soft tissues appear unremarkable. IMPRESSION: 1. Transient laryngeal penetration of thin liquid. No aspiration. 2. Functional impairment in the oral and pharyngeal phases as described above. 3. Trace stasis inconsistently observed in the lower cervical esophagus. Refer to the Speech and Language Pathologist's report for diet and therapy recommendations. Procedure performed by DAIN Banks under the direct supervision of Dr. Maged Chacon. I personally viewed and interpreted these images and I have reviewed and approved this report. Normal [facility] CBC AND ELECTRONIC DIFFon Basophils (Bld) [#/Vol] 0.05 10*3/uL Normal 0.00-0.15 [facility] Comment on above: Performed By: #### L [id number] #### [facility] (DEFAULT) [address] [address] Basophils/100 WBC (Bld) 0.5 % Normal [facility] Comment on above: Performed By: #### L [id number] #### [facility] (DEFAULT) [address] [address] DIFF STATUS Electronic Differential Normal [facility] Comment on above: Performed By: #### L [id number] #### [facility] (DEFAULT) [address] [address] Eosinophils (Bld) [#/Vol] 0.16 10*3/uL Normal 0.00-0.42 [facility] Comment on above: Performed By: #### L [id number] #### [facility] (DEFAULT) [address] [place] [address] Eosinophils/100 WBC (Bld) 1.6 % Normal [facility] Comment on above: Performed By: #### L [id number] #### [facility] (DEFAULT) [address] [place] [address]16 Hematocrit (Bld) [Volume fraction] 35.4 % Normal 34.9-44.3 [facility] Comment on above: Performed By: #### L [id number] #### [facility] (DEFAULT) [address] [place] [address] 10179 Hemoglobin (Bld) [Mass/Vol] 10.9 g/dL Low 11.4-15.2 [facility] Comment on above: Performed By: #### L [id number] #### [facility] (DEFAULT) [address] [address] Immature Grans % 0.3 % Normal [facility] Comment on above: Performed By: #### L [id number] #### [facility] (DEFAULT) [address] [place] [address] Immature Grans Absolute < Normal <=0.08 [facility] Comment on above: Performed By: #### L [id number] #### [facility] (DEFAULT) [address] [place] [address] Lymphocytes (Bld) [#/Vol] 3.74 10*3/uL High 1.16-3.51 [facility] Comment on above: Performed By: #### L [id number] #### [facility] (DEFAULT) [address] [address] Lymphocytes/100 WBC (Bld) 38.4 % Normal [facility] Comment on above: Performed By: #### L [id number] #### [facility] (DEFAULT) [address] [place] [address] MCV (RBC) [Entitic vol] 86.3 fL Normal 79.6-97.7 [facility] Comment on above: Performed By: #### L [id number] #### [facility] (DEFAULT) [address] [place] [address] 86294 Mean Cell Hgb 26.6 pg Normal 25.9-33.9 [facility] Comment on above: Performed By: #### L [id number] #### [facility] (DEFAULT) [address] [place] [address] 57811 Mean Cell Hgb Conc 30.8 g/dL Low 31.4-35.9 [facility] Comment on above: Performed By: #### L [id number] #### [facility] (DEFAULT) [address] [place] [address] 99843 Monocytes (Bld) [#/Vol] 0.91 10*3/uL High 0.22-0.87 [facility] Comment on above: Performed By: #### L [id number] #### [facility] (DEFAULT) [address] [place] [address]31 Monocytes/100 WBC (Bld) 9.3 % Normal [facility] Comment on above: Performed By: #### L [id number] #### [facility] (DEFAULT) [address] [place] [address] 54935 Nucleated RBC 0.0 /100 WBC Normal <=0.2 [facility] Comment on above: Performed By: #### L [id number] #### [facility] (DEFAULT) [address] [place] [address] Platelet mean volume (Bld) [Entitic vol] 11.1 fL Normal 8.5-12.2 [facility] Comment on above: Performed By: #### L [id number] #### [facility] (DEFAULT) [address] [place] [address] Platelets (Bld) [#/Vol] 200 10*3/uL Normal 150-393 [facility] Comment on above: Performed By: #### L [id number] #### [facility] (DEFAULT) [address] [place] [address] 95868 RBC (Bld) [#/Vol] 4.10 10*6/uL Normal 3.91-5.04 [facility] Comment on above: Performed By: #### L [id number] #### [facility] (DEFAULT) [address] [place] [address] 84702 RBC Distribution 18.9 % High 10.8-14.9 [facility] Comment on above: Performed By: #### L [id number] #### [facility] (DEFAULT) [address] [place] [address] Segs + Bands Auto 49.9 % Normal [facility] Comment on above: Performed By: #### L [id number] #### [facility] (DEFAULT) [address] [place] [address] Segs + Bands,Absolute Auto 4.85 K/uL Normal 1.64-7.28 [facility] Comment on above: Performed By: #### L [id number] #### [facility] (DEFAULT) [address] [place] [address]14 WBC (Bld) [#/Vol] 9.74 10*3/uL Normal 3.99-11.19 [facility] Comment on above: Performed By: #### L [id number] #### [facility] (DEFAULT) [address] [place] [address] Basophils (Bld) [#/Vol] 0.05 10*3/uL 0.00 - 0.15 K/uL [facility] Basophils/100 WBC (Bld) 0.5 % [facility] Differential cell count method Nom (Bld) Electronic Differential [facility] Eosinophils (Bld) [#/Vol] 0.16 10*3/uL 0.00 - 0.42 K/uL [facility] Eosinophils/100 WBC (Bld) 1.6 % [facility] Erythrocyte distribution width (RBC) [Ratio] 18.9 % High 10.8 - 14.9 % [facility] Hematocrit (Bld) [Volume fraction] 35.4 % 34.9 - 44.3 % [facility] Hemoglobin (Bld) [Mass/Vol] 10.9 g/dL Low 11.4 - 15.2 g/dL [facility] Immature granulocytes (Bld) [#/Vol] K/uL NINF - 0.08 K/uL [facility] Immature granulocytes/100 WBC (Bld) 0.3 % [facility] Interpretation and review of laboratory results Abnormal [facility] Lymphocytes (Bld) [#/Vol] 3.74 10*3/uL High 1.16 - 3.51 K/uL [facility] Lymphocytes/100 WBC (Bld) 38.4 % [facility] MCH (RBC) [Entitic mass] 26.6 pg 25.9 - 33.9 pg [facility] MCHC (RBC) [Mass/Vol] 30.8 g/dL Low 31.4 - 35.9 g/dL [facility] MCV (RBC) [Entitic vol] 86.3 fL 79.6 - 97.7 fL [facility] Monocytes (Bld) [#/Vol] 0.91 10*3/uL High 0.22 - 0.87 K/uL [facility] Monocytes/100 WBC (Bld) 9.3 % [facility] Neutrophils (Bld) [#/Vol] 4.85 10*3/uL 1.64 - 7.28 K/uL [facility] Nucleated RBC/100 WBC (Bld) [Ratio] 0.0 % [facility] Platelet mean volume (Bld) [Entitic vol] 11.1 fL 8.5 - 12.2 fL [facility] Platelets (Bld) [#/Vol] 200 10*3/uL 150 - 393 K/uL [facility] RBC (Bld) [#/Vol] 4.10 10*6/uL [facility] Segmented neutrophils/100 WBC (Bld) 49.9 % [facility] WBC (Bld) [#/Vol] 9.74 10*3/uL 3.99 - 11.19 K/uL [facility] CHEM 7 (LYTES,BUN,CREA,GLUC) on 08-16-2022 Anion gap [Moles/Vol] 14 mmol/L Normal 7-17 [facility] Comment on above: Performed By: #### Jaron MONIQUE CHM7 #### [facility] (DEFAULT) [address] [place] [address] 84466 Chloride [Moles/Vol] 100 mmol/L Normal 98-108 [facility] Comment on above: Performed By: #### RILEY ESCOBAR7 #### [facility] (DEFAULT) [address] [place] [address] 14303 CO2 [Moles/Vol] 24 mmol/L Normal 21-31 [facility] Comment on above: Performed By: #### RILEY ESCOBAR7 #### [facility] (DEFAULT) [address] [place] [address] 24665 Creatinine [Mass/Vol] 1.49 mg/dL High 0.50-1.20 [facility] Comment on above: Performed By: #### RILEY ESCOBAR7 #### [facility] (DEFAULT) [address] [place] [address] 78979 GFR/1.73 sq M.predicted among non-blacks MDRD (S/P/Bld) [Vol rate/Area] 40 mL/min/{1.73_m2} Low >=60 [facility] Comment on above: Result Comment: Repo rted eGFR is based on the CKD-EPI 2020 equation using creatinine, age, and sex. Performed By: #### Jaron MONIQUE CHM7 #### [facility] (DEFAULT) [address] [place] [address] 65043 Glucose [Mass/Vol] 140 mg/dL High 70-99 [facility] Comment on above: Performed By: #### Jaron OMNIQUE CHM7 #### [facility] (DEFAULT) [address] [place] [address] 81650 Osmolality [Osmolality] 294 mosm/kg Normal 278-305 [facility] Comment on above: Performed By: #### RILEY ESCOBAR7 #### [facility] (DEFAULT) [address] [place] [address] Potassium [Moles/Vol] 5.0 mmol/L Normal 3.5-5.0 [facility] Comment on above: Performed By: #### RILEY ESCOBAR7 #### [facility] (DEFAULT) [address] [place] [address] Sodium [Moles/Vol] 133 mmol/L Low 135-145 [facility] Comment on above: Performed By: #### SURAJ ESCOBAR #### [facility] (DEFAULT) [address] [place] [address] 77625 Urea nitrogen [Mass/Vol] 41 mg/dL High 7-25 [facility] Comment on above: Performed By: #### RILEY ESCOBAR7 #### [facility] (DEFAULT) [address] [place] [address] 08699 Urea nitrogen/Creatinine [Mass ratio] 28 mg/mg Normal [facility] Comment on above: Performed By: #### RILEY ESCOBAR7 #### [facility] (DEFAULT) [address] [place] [address] 62942 Anion gap [Moles/Vol] 14 mmol/L 7 - 17 mmol/L [facility] Chloride [Moles/Vol] 100 mmol/L 98 - 10 8 mmol/L [facility] CO2 [Moles/Vol] 24 mmol/L 21 - 31 mmol/L [facility] Creatinine [Mass/Vol] 1.49 mg/dL High 0.50 - 1.20 mg/dL [facility] GFR/1.73 sq M.predicted CKD-EPI (S/P/Bld) [Vol rate/Area] 40 Low - PINF [facility] Glucose [Mass/Vol] 140 mg/dL High 70 - 99 mg/dL [facility] Interpretation and review of laboratory results Abnormal [facility] Osmolality Calc [Osmolality] 294 [facility] Potassium [Moles/Vol] 5.0 mmol/L 3.5 - 5.0 mmol/L [facility] Sodium [Moles/Vol] 133 mmol/L Low 135 - 145 mmol/L [facility] Urea nitrogen [Mass/Vol] 41 mg/dL High 7 - 25 mg/dL [facility] Urea nitrogen/Creatinine [Mass ratio] 28 mg/mg [facility] GLUCOSE POCon 08-16-2022 Glucose [Mass/Vol] 189 mg/dL High 70 - 99 mg/dL [facility] Interpretation and review of laboratory results Abnormal [facility] POC Sample Type [facility] Glucose [Mass/Vol] 196 mg/dL High 70 - 99 mg/dL [facility] Interpretation and review of laboratory results Abnormal [facility] POC Sample Type [facility] Glucose [Mass/Vol] 170 mg/dL High 70 - 99 mg/dL [facility] Interpretation and review of laboratory results Abnormal [facility] POC Sample Type CAPBL [facility] Glucose [Mass/Vol] 151 mg/dL High 70 - 99 mg/dL [facility] Interpretation and review of laboratory results Abnormal [facility] POC Sample Type [facility] Glucose [Mass/Vol] 114 mg/dL High 70 - 99 mg/dL [facility] Interpretation and review of laboratory results Abnormal [facility] POC Sample Type CAPBL [facility] MAGNESIUMon 08-16-2022 Magnesium [Mass/Vol] 1.6 mg/dL Normal 1.6-2.6 [facility] Comment on above: Performed By: #### M GO, CHM7 #### [facility] (DEFAULT) [address] [place] [address] Interpretation and review of laboratory results Normal [facility] Magnesium [Mass/Vol] 1.6 mg/dL 1.6 - 2 .6 mg/dL [facility] No Panel Informationon 08-16 [facility] CONTINUOUS CARDIAC MONITORIN G STRIPon 08-15-2022 [facility] GLUCOSE POCon 08-15-2022 Glucose [Mass/Vol] 179 mg/dL High 70 - 99 mg/dL [facility] Interpretation and review of laboratory results Abnormal [facility] POC Sample Type CAPBL [facility] Glucose [Mass/Vol] 128 mg/dL High 70 - 99 mg/dL [facility] Interpretation and review of laboratory results Abnormal [facility] POC Sample Type CAP[facility] Glucose [Mass/Vol] 148 mg/dL High 70 - 99 mg/dL [facility] Interpretation and review of laboratory results Abnormal [facility] POC Sample Type CAPBL [facility] Glucose [Mass/Vol] 138 mg/dL High 70 - 99 mg/dL [facility] Interpretation and review of laboratory results Abnormal [facility] POC Sample Type CAPBL [facility] CBC,PLATELETSon 08-14-2022 Hematocrit (Bld) [Volume fraction] 36.1 % Normal 34.9-44.3 [facility] Comment on above: Performed By: #### RILEY ESCOBAR7 #### [facility] (DEFAULT) [address] [place] [address] Hemoglobin (Bld) [Mass/Vol] 10.8 g/dL Low 11.4-15.2 [facility] Comment on above: Performed By: #### Jaron MONIQUE CHM7 #### [facility] (DEFAULT) [address] [place] [address]740 MCV (RBC) [Entitic vol] 87.8 fL Normal 79.6-97.7 [facility] Comment on above: Performed By: #### Jaron MONIQUE CHM7 #### [facility] (DEFAULT) [address] [place] [address] 11514 Mean Cell Hgb 26.3 pg Normal 25.9-33.9 [facility] Comment on above: Performed By: #### RILEY ESCOBAR7 #### [facility] (DEFAULT) [address] [address] Mean Cell Hgb Conc 29.9 g/dL Low 31.4-35.9 [facility] Comment on above: Performed By: #### RILEY ESCOBAR7 #### [facility] (DEFAULT) [address] [place] [address] 61714 Platelet mean volume (Bld) [Entitic vol] 10.3 fL Normal 8.5-12.2 [facility] Comment on above: Performed By: #### RILEY ESCOBAR7 #### [facility] (DEFAULT) [address] [address] Platelets (Bld) [#/Vol] 217 10*3/uL Normal 150-393 [facility] Comment on above: Performed By: #### Jaron MONIQUE CHM7 #### [facility] (DEFAULT) [address] [address] RBC (Bld) [#/Vol] 4.11 10*6/uL Normal 3.91-5.04 [facility] Comment on above: Performed By: #### Jaron MONIQUE CHM7 #### [facility] (DEFAULT) [address] [place] [address] 15178 RBC Distribution 18.7 % High 10.8-14.9 [facility] Comment on above: Performed By: #### Jaron MONIQUE CHM7 #### [facility] (DEFAULT) [address] [place] [address] WBC (Bld) [#/Vol] 9.17 10*3/uL Normal 3.99-11.19 [facility] Comment on above: Performed By: #### Jaron MONIQUE CHM7 #### [facility] (DEFAULT) [address] [place] [address] Erythrocyte distribution width (RBC) [Ratio] 18.7 % High 10.8 - 14.9 % [facility] Hematocrit (Bld) [Volume fraction] 36.1 % 34.9 - 44.3 % [facility] Hemoglobin (Bld) [Mass/Vol] 10.8 g/dL Low 11.4 - 15.2 g/dL [facility] Interpretation and review of laboratory results Abnormal [facility] MCH (RBC) [Entitic mass] 26.3 pg 25.9 - 33.9 pg [facility] MCHC (RBC) [Mass/Vol] 29.9 g/dL Low 31.4 - 35.9 g/dL [facility] MCV (RBC) [Entitic vol] 87.8 fL 79.6 - 97.7 fL [facility] Platelet mean volume (Bld) [Entitic vol] 10.3 fL 8.5 - 12.2 fL [facility] Platelets (Bld) [#/Vol] 217 10*3/uL 150 - 393 K/uL [facility] RBC (Bld) [#/Vol] 4.11 10*6/uL [facility] WBC (Bld) [#/Vol] 9.17 10*3/uL 3.99 - 11.19 K/uL [facility] CHEM 7 (LYTES,BUN,CREA,GLUC) on 08-14-2022 Anion gap [Moles/Vol] 13 mmol/L Normal 7-17 [facility] Comment on above: Performed By: #### C HM7 #### [facility] (DEFAULT) [address] [place] [address] 20468 Chloride [Moles/Vol] 103 mmol/L Normal 98-108 [facility] Comment on above: Performed By: #### C HM7 #### [facility] (DEFAULT) [address] [place] [address] 99603 CO2 [Moles/Vol] 24 mmol/L Normal 21-31 [facility] Comment on above: Performed By: #### C HM7 #### [facility] (DEFAULT) [address] [place] [address] 11850 Creatinine [Mass/Vol] 1.49 mg/dL High 0.50-1.20 [facility] Comment on above: Performed By: #### C HM7 #### [facility] (DEFAULT) [address] [place] [address] 05324 GFR/1.73 sq M.predicted among non-blacks MDRD (S/P/Bld) [Vol rate/Area] 40 mL/min/{1.73_m2} Low >=60 [facility] Comment on above: Result Comment: Repo rted eGFR is based on the CKD-EPI 2020 equation using creatinine, age, and sex. Performed By: #### C HM7 #### [facility] (DEFAULT) [address] [place] [address] 45223 Glucose [Mass/Vol] 89 mg/dL Normal 70-99 [facility] Comment on above: Performed By: #### C HM7 #### [facility] (DEFAULT) [address] [place] [address] 34679 Osmolality [Osmolality] 294 mosm/kg Normal 278-305 [facility] Comment on above: Performed By: #### C HM7 #### [facility] (DEFAULT) [address] [place] [address] 06668 Potassium [Moles/Vol] 4.2 mmol/L Normal 3.5-5.0 [facility] Comment on above: Performed By: #### C HM7 #### [facility] (DEFAULT) [address] [place] [address] Sodium [Moles/Vol] 136 mmol/L Normal 135-145 [facility] Comment on above: Performed By: #### C HM7 #### [facility] (DEFAULT) [address] [place] [address] Urea nitrogen [Mass/Vol] 39 mg/dL High 7-25 [facility] Comment on above: Performed By: #### C HM7 #### [facility] (DEFAULT) [address] [place] [address] Urea nitrogen/Creatinine [Mass ratio] 26 mg/mg Normal [facility] Comment on above: Performed By: #### C HM7 #### [facility] (DEFAULT) [address] [place] [address] Anion gap [Moles/Vol] 13 mmol/L 7 - 17 mmol/L [facility] Chloride [Moles/Vol] 103 mmol/L 98 - 10 8 mmol/L [facility] CO2 [Moles/Vol] 24 mmol/L 21 - 31 mmol/L [facility] Creatinine [Mass/Vol] 1.49 mg/dL High 0.50 - 1.20 mg/dL [facility] GFR/1.73 sq M.predicted CKD-EPI (S/P/Bld) [Vol rate/Area] 40 Low - PINF [facility] Glucose [Mass/Vol] 89 mg/dL 70 - 99 mg/dL [facility] Interpretation and review of laboratory results Abnormal [facility] Osmolality Calc [Osmolality] 294 [facility] Potassium [Moles/Vol] 4.2 mmol/L 3.5 - 5.0 mmol/L [facility] Sodium [Moles/Vol] 136 mmol/L 135 - 145 mmol/L [facility] Urea nitrogen [Mass/Vol] 39 mg/dL High 7 - 25 mg/dL [facility] Urea nitrogen/Creatinine [Mass ratio] 26 mg/[facility] MONITORIN G STRIPon 08-14-2022 [facility] GLUCOSE POCon 08-14-2022 Glucose [Mass/Vol] 148 mg/dL High 70 - 99 mg/dL [facility] Interpretation and review of laboratory results Abnormal [facility] POC Sample Type [facility] Glucose [Mass/Vol] 145 mg/dL High 70 - 99 mg/dL [facility] Glucose [Mass/Vol] 157 mg/dL High 70 - 99 mg/dL [facility] Glucose [Mass/Vol] 78 mg/dL 70 - 99 mg/dL [facility] Glucose [Mass/Vol] 49 mg/dL Critically low 70 - 99 mg/dL [facility] Glucose [Mass/Vol] 79 mg/dL 70 - 99 mg/dL [facility] Glucose [Mass/Vol] 130 mg/dL High 70 - 99 mg/dL [facility] No Panel Informationon 08-14 Interpretation and review of laboratory results Abnormal [facility] POC Sample Type [facility] Interpretation and review of laboratory results Abnormal [facility] POC Sample Type [facility] Cardiac [facility] Procedure on 08-13-2022 Radiology Study observation (narrative) [facility] GLUCOSE POCon 08-13-2022 Glucose [Mass/Vol] 163 mg/dL High 70 - 99 mg/dL [facility] Interpretation and review of laboratory results Abnormal [facility] POC Sample Type CAPBL [facility] Glucose [Mass/Vol] 228 mg/dL High 70 - 99 mg/dL [facility] Interpretation and review of laboratory results Abnormal [facility] POC Sample Type [facility] Glucose [Mass/Vol] 196 mg/dL High 70 - 99 mg/dL [facility] Interpretation and review of laboratory results Abnormal [facility] POC Sample Type [facility] Glucose [Mass/Vol] 146 mg/dL High 70 - 99 mg/dL [facility] Interpretation and review of laboratory results Abnormal [facility] POC Sample Type [facility] B-TYPE NATRIURETIC PEPTIDE ( BRAIN)on 08-12-2022 Interpretation and review of laboratory results Abnormal [facility] Natriuretic peptide B (Bld) [Mass/Vol] 1524 pg/mL High 0 - 100 pg/mL [facility] Natriuretic peptide B (Bld) [Mass/Vol] 1524 pg/mL High 0-100 [facility] Comment on above: Performed By: #### RILEY ESCOBAR7 #### [facility] (DEFAULT) [address] [place] [address] 76560 CBC,PLATELETSon 08-12-2022 Hematocrit (Bld) [Volume fraction] 31.7 % Low 34.9-44.3 [facility] Comment on above: Performed By: #### RILEY ESCOBAR7 #### [facility] (DEFAULT) [address] [place] [address] 26458 Hemoglobin (Bld) [Mass/Vol] 9.5 g/dL Low 11.4-15.2 [facility] Comment on above: Performed By: #### Jaron MONIQUE CHM7 #### [facility] (DEFAULT) [address] [place] [address] 78844 MCV (RBC) [Entitic vol] 90.1 fL Normal 79.6-97.7 [facility] Comment on above: Performed By: #### Jaron MONIQUE CHM7 #### [facility] (DEFAULT) [address] [place] [address] 45289 Mean Cell Hgb 27.0 pg Normal 25.9-33.9 [facility] Comment on above: Performed By: #### RILEY ESCOBAR7 #### [facility] (DEFAULT) [address] [place] [address] 37066 Mean Cell Hgb Conc 30.0 g/dL Low 31.4-35.9 [facility] Comment on above: Performed By: #### Jaron MONIQUE CHM7 #### [facility] (DEFAULT) [address] [place] [address] 86066 Platelet mean volume (Bld) [Entitic vol] 10.0 fL Normal 8.5-12.2 [facility] Comment on above: Performed By: #### RILEY ESCOBAR7 #### [facility] (DEFAULT) [address] [place] [address] 25685 Platelets (Bld) [#/Vol] 222 10*3/uL Normal 150-393 [facility] Comment on above: Performed By: #### Jaron MONIQUE CHM7 #### [facility] (DEFAULT) [address] [place] [address] 94512 RBC (Bld) [#/Vol] 3.52 10*6/uL Low 3.91-5.04 [facility] Comment on above: Performed By: #### Jaron MONIQUE CHM7 #### [facility] (DEFAULT) [address] [place] [address] 37682 RBC Distribution 18.6 % High 10.8-14.9 [facility] Comment on above: Performed By: #### Jaron MONIQUE CHM7 #### [facility] (DEFAULT) [address] [place] [address] 56957 WBC (Bld) [#/Vol] 6.47 10*3/uL Normal 3.99-11.19 [facility] Comment on above: Performed By: #### Jaron MONIQUE CHM7 #### [facility] (DEFAULT) [address] [place] [address] 65600 Erythrocyte distribution width (RBC) [Ratio] 18.6 % High 10.8 - 14.9 % [facility] Hematocrit (Bld) [Volume fraction] 31.7 % Low 34.9 - 44.3 % [facility] Hemoglobin (Bld) [Mass/Vol] 9.5 g/dL Low 11.4 - 15.2 g/dL [facility] Interpretation and review of laboratory results Abnormal [facility] MCH (RBC) [Entitic mass] 27.0 pg 25.9 - 33.9 pg [facility] MCHC (RBC) [Mass/Vol] 30.0 g/dL Low 31.4 - 35.9 g/dL [facility] MCV (RBC) [Entitic vol] 90.1 fL 79.6 - 97.7 fL [facility] Platelet mean volume (Bld) [Entitic vol] 10.0 fL 8.5 - 12.2 fL [facility] Platelets (Bld) [#/Vol] 222 10*3/uL 150 - 393 K/uL [facility] RBC (Bld) [#/Vol] 3.52 10*6/uL Low [facility] WBC (Bld) [#/Vol] 6.47 10*3/uL 3.99 - 11.19 K/uL [facility] CHEM 7 (LYTES,BUN,CREA,GLUC) on 08-12-2022 Anion gap [Moles/Vol] 16 mmol/L Normal 7-17 [facility] Comment on above: Performed By: #### RILEY ESCOBAR7 #### [facility] (DEFAULT) [address] [place] [address] 85685 Chloride [Moles/Vol] 106 mmol/L Normal 98-108 [facility] Comment on above: Performed By: ###RILEY CARRILLO7 #### [facility] (DEFAULT) [address] [place] [address] CO2 [Moles/Vol] 20 mmol/L Low 21-31 [facility] Comment on above: Performed By: ###Ann MONQIUE, CHM7 #### [facility] (DEFAULT) [address] [place] [address] [address] Creatinine [Mass/Vol] 1.35 mg/dL High 0.50-1.20 [facility] Comment on above: Performed By: #### Jraon MONIQUE CHM7 #### [facility] (DEFAULT) [address] [place] [address] 30886 GFR/1.73 sq M.predicted among non-blacks MDRD (S/P/Bld) [Vol rate/Area] 45 mL/min/{1.73_m2} Low >=60 [facility] Comment on above: Result Comment: Repo rted eGFR is based on the CKD-EPI 2020 equation using creatinine, age, and sex. Performed By: #### Jaron MONIQUE CHM7 #### [facility] (DEFAULT) [address] [place] [address] 63358 Glucose [Mass/Vol] 181 mg/dL High 70-99 [facility] Comment on above: Performed By: #### Jaron MONIQUE CHM7 #### [facility] (DEFAULT) [address] [place] [address] 46154 Osmolality [Osmolality] 301 mosm/kg Normal 278-305 [facility] Comment on above: Performed By: #### Jaron MONIQUE CHM7 #### [facility] (DEFAULT) [address] [place] [address] 07230 Potassium [Moles/Vol] 4.3 mmol/L Normal 3.5-5.0 [facility] Comment on above: Performed By: #### Jaron MONIQUE CHM7 #### [facility] (DEFAULT) [address] [place] [address] 79210 Sodium [Moles/Vol] 138 mmol/L Normal 135-145 [facility] Comment on above: Performed By: #### Jaron MONIQUE CHM7 #### [facility] (DEFAULT) [address] [place] [address] 62348 Urea nitrogen [Mass/Vol] 31 mg/dL High 7-25 [facility] Comment on above: Performed By: #### Jaron MONIQUE CHM7 #### [facility] (DEFAULT) [address] [place] [address] Urea nitrogen/Creatinine [Mass ratio] 23 mg/mg Normal [facility] Comment on above: Performed By: #### Jaron MONIQUE CHM7 #### [facility] (DEFAULT) [address] [place] [address] Anion gap [Moles/Vol] 16 mmol/L 7 - 17 mmol/L [facility] Chloride [Moles/Vol] 106 mmol/L 98 - 10 8 mmol/L [facility] CO2 [Moles/Vol] 20 mmol/L Low 21 - 31 mmol/L [facility] Creatinine [Mass/Vol] 1.35 mg/dL High 0.50 - 1.20 mg/dL [facility] GFR/1.73 sq M.predicted CKD-EPI (S/P/Bld) [Vol rate/Area] 45 Low - PINF [facility] Glucose [Mass/Vol] 181 mg/dL High 70 - 99 mg/dL [facility] Interpretation and review of laboratory results Abnormal [facility] Osmolality Calc [Osmolality] 301 [facility] Potassium [Moles/Vol] 4.3 mmol/L 3.5 - 5.0 mmol/L [facility] Sodium [Moles/Vol] 138 mmol/L 135 - 145 mmol/L [facility] Urea nitrogen [Mass/Vol] 31 mg/dL High 7 - 25 mg/dL [facility] Urea nitrogen/Creatinine [Mass ratio] 23 mg/mg [facility] CONTINUOUS CARDIAC MONITORIN G STRIPon 08-12-2022 [facility] CONTINUOUS CARDIAC MONITORIN G STRIPOrdered By: Unassigned Pacs on 08-12-2022 [facility] Work Phone: GLUCOSE POCon 08-12-2022 Glucose [Mass/Vol] 225 mg/dL High 70 - 99 mg/dL [facility] Interpretation and review of laboratory results Abnormal [facility] POC Sample Type CAPBL [facility] Glucose [Mass/Vol] 205 mg/dL High 70 - 99 mg/dL [facility] Interpretation and review of laboratory results Abnormal [facility] POC Sample Type CAPBL [facility] Glucose [Mass/Vol] 212 mg/dL High 70 - 99 mg/dL [facility] Interpretation and review of laboratory results Abnormal [facility] POC Sample Type CAPBL [facility] Glucose [Mass/Vol] 203 mg/dL High 70 - 99 mg/dL [facility] Interpretation and review of laboratory results Abnormal [facility] POC Sample Type CAPBL [facility] Portable XR Chest Viewson RADIOLOGY RADIOLOGY [facility] Radiology Study observation (narrative) [facility] Portable XR Chest ViewsOrder ed By: Hebert Savage on 08-12-2022 [facility] Work Phone: XR CHEST PORTABLEon 08-12-20 XR CHEST PORTABLE EXAM: XR CHEST MICHELE BLE, 08/12/2022 11:07 AM COMPARISON: August 09, 2022 CLINICAL INDICATIONS: eval for edema RELEVANT CLINICAL HISTORY: FINDINGS: (Adequate technique) Implanted Devices: A feeding tube is visualized. Thorax: Lung volumes are diminished with groundglass opacities in both lung bases. Small right pleural effusion noted. No pneumothorax. Stable heart size. Stable osseous structures. IMPRESSION: Low lung volumes with bilateral basilar groundglass opacities. Pulmonary edema is a consideration in the appropriate clinical setting. Normal [facility] CBC,PLATELETSon 08-11-2022 Hematocrit (Bld) [Volume fraction] 31.1 % Low 34.9-44.3 [facility] Comment on above: Performed By: #### RILEY ESCOBAR7 #### [facility] (DEFAULT) [address] [place] [address] 84957 Hemoglobin (Bld) [Mass/Vol] 9.4 g/dL Low 11.4-15.2 [facility] Comment on above: Performed By: #### Jaron MONIQUE CHM7 #### [facility] (DEFAULT) [address] [place] [address] 34410 MCV (RBC) [Entitic vol] 88.9 fL Normal 79.6-97.[address] [facility] Comment on above: Performed By: #### RILEY ESCOBAR7 #### [facility] (DEFAULT) [address] [place] [address] 25772 Mean Cell Hgb 26.9 pg Normal 25.9-33.9 [facility] Comment on above: Performed By: #### RILEY ESCOBAR7 #### [facility] (DEFAULT) [address] [place] [address] 25296 Mean Cell Hgb Conc 30.2 g/dL Low 31.4-35.9 [facility] Comment on above: Performed By: #### Jaron MONIQUE CHM7 #### [facility] (DEFAULT) [address] [place] [address] 09419 Platelet mean volume (Bld) [Entitic vol] 9.9 fL Normal 8.5-12.2 [facility] Comment on above: Performed By: #### Jaron OMNIQUE CHM7 #### [facility] (DEFAULT) [address] [place] [address] 24461 Platelets (Bld) [#/Vol] 248 10*3/uL Normal 150-393 [facility] Comment on above: Performed By: #### Jaron MONIQUE CHM7 #### [facility] (DEFAULT) [address] [place] [address] 22710 RBC (Bld) [#/Vol] 3.50 10*6/uL Low 3.91-5.04 [facility] Comment on above: Performed By: #### SURAJ ESCOBAR #### [facility] (DEFAULT) [address] [address] RBC Distribution 18.5 % High 10.8-14.9 [facility] Comment on above: Performed By: #### SURAJ ESCOBAR #### [facility] (DEFAULT) [address] [address] WBC (Bld) [#/Vol] 5.61 10*3/uL Normal 3.99-11.19 [facility] Comment on above: Performed By: #### SURAJ ESCOBAR #### [facility] (DEFAULT) [address] [address] Erythrocyte distribution width (RBC) [Ratio] 18.5 % High 10.8 - 14.9 % [facility] MCH (RBC) [Entitic mass] 26.9 pg 25.9 - 33.9 pg [facility] MCHC (RBC) [Mass/Vol] 30.2 g/dL Low 31.4 - 35.9 g/dL [facility] CHEM 7 (LYTES,BUN,CREA,GLUC) on 08-11-2022 Anion gap [Moles/Vol] 15 mmol/L Normal 7-17 [facility] Comment on above: Performed By: #### SURAJ ESCOBAR #### [facility] (DEFAULT) [address] [place] [address] 73881 Chloride [Moles/Vol] 104 mmol/L Normal 98-108 [facility] Comment on above: Performed By: #### SURAJ ESCOBAR #### [facility] (DEFAULT) [address] [place] [address] 53713 CO2 [Moles/Vol] 24 mmol/L Normal 21-31 [facility] Comment on above: Performed By: #### SURAJ ESCOBAR #### [facility] (DEFAULT) [address] [place] [address] 89310 Creatinine [Mass/Vol] 1.47 mg/dL High 0.50-1.20 [facility] Comment on above: Performed By: #### RILEY ESCOBAR7 #### [facility] (DEFAULT) [address] [place] [address] 28372 GFR/1.73 sq M.predicted among non-blacks MDRD (S/P/Bld) [Vol rate/Area] 40 mL/min/{1.73_m2} Low >=60 [facility] Comment on above: Result Comment: Repo rted eGFR is based on the CKD-EPI 2020 equation using creatinine, age, and sex. Performed By: #### SURAJ ESCOBAR #### [facility] (DEFAULT) [address] [place] [address] 81358 Glucose [Mass/Vol] 139 mg/dL High 70-99 [facility] Comment on above: Performed By: #### RILEY ESCOBAR7 #### [facility] (DEFAULT) [address] [place] [address] 48162 Osmolality [Osmolality] 302 mosm/kg Normal 278-305 [facility] Comment on above: Performed By: #### SURAJ ESCOBAR #### [facility] (DEFAULT) [address] [place] [address] 43645 Potassium [Moles/Vol] 3.9 mmol/L Normal 3.5-5.0 [facility] Comment on above: Performed By: #### RILEY ESCOBAR7 #### [facility] (DEFAULT) [address] [place] [address] 99876 Sodium [Moles/Vol] 139 mmol/L Normal 135-145 [facility] Comment on above: Performed By: #### RILEY ESCOBAR7 #### [facility] (DEFAULT) [address] [place] [address] 01413 Urea nitrogen [Mass/Vol] 36 mg/dL High 7-25 [facility] Comment on above: Performed By: #### Jaron MONIQUE, CHM7 #### [facility] (DEFAULT) [address] [place] [address] Urea nitrogen/Creatinine [Mass ratio] 24 mg/mg Normal [facility] Comment on above: Performed By: #### M KAYDEN CHM7 #### [facility] (DEFAULT) [address] [place] [address] CHEM 7 (LYTES,BUN,CREA,GLUC) Ordered By: Panda Dobsb on 08-11-2022 Anion gap [Moles/Vol] 15 mmol/L 7 - 17 mmol/L [facility] Chloride [Moles/Vol] 104 mmol/L 98 - 10 8 mmol/L [facility] CO2 [Moles/Vol] 24 mmol/L 21 - 31 mmol/L [facility] Creatinine [Mass/Vol] 1.47 mg/dL High 0.50 - 1.20 mg/dL [facility] GFR/1.73 sq M.predicted CKD-EPI (S/P/Bld) [Vol rate/Area] 40 Low - PINF [facility] Glucose [Mass/Vol] 139 mg/dL High 70 - 99 mg/dL [facility] Osmolality Calc [Osmolality] 302 [facility] Potassium [Moles/Vol] 3.9 mmol/L 3.5 - 5.0 mmol/L [facility] Sodium [Moles/Vol] 139 mmol/L 135 - 145 mmol/L [facility] Urea nitrogen [Mass/Vol] 36 mg/dL High 7 - 25 mg/dL [facility] Urea nitrogen/Creatinine [Mass ratio] 24 mg/mg [facility] GLUCOSE POCon 08-11-2022 Glucose [Mass/Vol] 179 mg/dL High 70 - 99 mg/dL [facility] Interpretation and review of laboratory results Abnormal [facility] POC Sample Type CAPBL [facility] Glucose [Mass/Vol] 203 mg/dL High 70 - 99 mg/dL [facility] Interpretation and review of laboratory results Abnormal [facility] POC Sample Type CAPBL [facility] Glucose [Mass/Vol] 144 mg/dL High 70 - 99 mg/dL [facility] Interpretation and review of laboratory results Abnormal [facility] POC Sample Type CAPBL [facility] Glucose [Mass/Vol] 136 mg/dL High 70 - 99 mg/dL [facility] Interpretation and review of laboratory results Abnormal [facility] POC Sample Type CAPBL [facility] Glucose [Mass/Vol] 137 mg/dL High 70 - 99 mg/dL [facility] Interpretation and review of laboratory results Abnormal [facility] POC Sample Type CAPBL [facility] MR Brain WO contraston 08-11 RADIOLOGY RADIOLOGY [facility] Radiology Study observation (narrative) [facility] MR Brain WO contrastOrdered By: King Escamilla on 08-11-2022 [facility] Work Phone: MRI BRAIN WITHOUT CONTRASTon 08-11-2022 MRI BRAIN WITHOUT CONTRAST EXAM: MRI BRAIN WITHOUT CONTRAST, 08/11/2022 00:40 AM COMPARISON: CT head August 10, and August 09, 2022 CLINICAL INDICATIONS: 62 years Female Stroke Workup; TECHNIQUE: A series of multisequence, multiplanar images of the brain are obtained without intravenous contrast. Study was performed at 1[address]. FINDINGS: Evaluation is moderately degraded motion artifact. Small acute right MCA territory infarct involving the right insula, right basal ganglia and extending into the right colmenares radiata as well as small foci within the right frontal and parietal lobes. No definite evidence of hemorrhagic transformation. No significant mass effect. There is susceptibility T2/FLAIR hyperintensity. No extracerebral collection. Sellar and parasellar structures are unremarkable. Posterior fossa is unremarkable. Ventricles and sulci are within normal limits. No definite air-fluid levels in the visualized paranasal sinuses. IMPRESSION: Moderate motion artifact. Small acute right MCA territory infarct involving the right insula, basal ganglia, right colmenares radiata, right frontal and parietal lobes. No definite evidence of hemorrhagic transformation or significant mass effect. Normal [facility] No Panel InformationOrdered By: Panda Dobbs on 08-11-2022 Interpretation and review of laboratory results Abnormal [facility] ANTI XA DOAC (APIXABAN)on Anti Xa DOAC (Apixaban) <23 Normal [facility] Comment on above: Result Comment: Routine monitoring of Anti Xa levels for patients on Apixaban is not recommended. Therapeutic reference ranges have not been established. At steady state - median (5th-95th percentile) peak and trough levels have been observed in clinical trials: Peak Conc., Trough Conc., ng/mL (a) ng/mL (b) VTE prevention after total hip replacement 2.5 mg twice daily 77 (41-146) 51 (23-109) Stroke and systemic embolism prevention in patients with AF 2.5 mg twice daily 123 (69-221) 79 (34-162) 5 mg twice daily 171 (91-321) 103 (41-230) Prevention and treatment of DVT and PE 2.5 mg twice daily 67 (30-153) 32 (11-90) 5 mg twice daily 132 (59-302) 63 (22-77) 10 mg twice daily 251 (111-572) 120 (41-335) (a) Defined as samples collected 2-4 hours after dosing (b) Defined as samples collected 10-12 hours after dosing AF-atrial fibrillation, WN-OT-plkwtsyuvj clearance, DVT-deep vein thrombosis, VTE-venous thromboembolism Clinical References: 1. Package insert: Apixaban: [employer]. Revised September 2014 2. Tylor KV, ODenzel BOWLES, Torres A: Quick reference guide to apixaban. Vasc Health Risk Manag 2017; 13:263-267 3. Kate CB, Lewis JH, Anne Marie JJ, et al: Apixaban versus warfarin in patient with atrial fibrillation. N Engl J Med 2011;365:981-992 4. Gamaliel C, Diann S, Chris J, et al: Safety, pharmacokinetics and pharmacodynamics of multiple oral doses of apixaban, a factor Xa inhibitor, in healthy subjects. Br. J. Clin. Pharmocol 2013;76 :(5):776-786 5. Mat G, Giulia HR, Chente A, et al: Oral apixaban for the treatment of acute venous thromboembolism. N Engl J Med 2013;369:799-808 6. Hayde DHILLON, Kong ManuelT, Compa SJ, et al: Andexanet curt for reversal of factor Xa inhibitor activity. N Engl J Med 2015;373:0147-1973 7. Mike K, Yaa J, Rakesh BL, et al: Use of the direct oral anticoagulants in obese patients: guidance from the SSC of the ISTH. J Thromb Haemost 2016;14:4286-2018 This test has been modified from the marketing program manager's instructions. Its performance characteristics were determined by [facility] in a manner consistent with CLIA requirements. This test has not been cleared or approved by the U.S. Food and Drug Administration. Performed By: #### M GO, CHM7 #### [facility] (DEFAULT) [address] [place] [address] ANTI XA DOAC (APIXABAN)Order ed By: Adebayo Laura on 08-10-2022 Anti Xa DOAC (Apixaban) ng/mL ng/mL O DÍAZ [facility] CBC,PLATELETSon 08-10-2022 Hematocrit (Bld) [Volume fraction] 32.8 % Low 34.9-44.3 [facility] Comment on above: Performed By: #### C HM6, MGO #### [facility] (DEFAULT) [address] [place] [address] 92145 Hemoglobin (Bld) [Mass/Vol] 9.8 g/dL Low 11.4-15.2 [facility] Comment on above: Performed By: #### C HM6, MGO #### [facility] (DEFAULT) [address] [place] [address] 33234 MCV (RBC) [Entitic vol] 89.1 fL Normal 79.6-97.7 [facility] Comment on above: Performed By: #### C HM6, MGO #### [facility] (DEFAULT) [address] [place] [address] 78043 Mean Cell Hgb 26.6 pg Normal 25.9-33.9 [facility] Comment on above: Performed By: #### C HM6, MGO #### [facility] (DEFAULT) [address] [address] Mean Cell Hgb Conc 29.9 g/dL Low 31.4-35.9 [facility] Comment on above: Performed By: #### C HM6, MGO #### [facility] (DEFAULT) [address] [place] [address] 83830 Platelet mean volume (Bld) [Entitic vol] 10.0 fL Normal 8.5-12.2 [facility] Comment on above: Performed By: #### C HM6, MGO #### [facility] (DEFAULT) [address] [place] [address] 60494 Platelets (Bld) [#/Vol] 316 10*3/uL Normal 150-393 [facility] Comment on above: Performed By: #### C HM6, MGO #### [facility] (DEFAULT) [address] [place] [address] 12227 RBC (Bld) [#/Vol] 3.68 10*6/uL Low 3.91-5.04 [facility] Comment on above: Performed By: #### C HM6, MGO #### [facility] (DEFAULT) [address] [place] [address] 00670 RBC Distribution 18.2 % High 10.8-14.9 [facility] Comment on above: Performed By: #### C HM6, MGO #### [facility] (DEFAULT) [address] [place] [address] 25085 WBC (Bld) [#/Vol] 8.80 10*3/uL Normal 3.99-11.19 [facility] Comment on above: Performed By: #### C HM6, MGO #### [facility] (DEFAULT) [address] [place] [address] Erythrocyte distribution width (RBC) [Ratio] 18.2 % High 10.8 - 14.9 % [facility] Hematocrit (Bld) [Volume fraction] 32.8 % Low 34.9 - 44.3 % [facility] Hemoglobin (Bld) [Mass/Vol] 9.8 g/dL Low 11.4 - 15.2 g/dL [facility] Interpretation and review of laboratory results Abnormal [facility] MCH (RBC) [Entitic mass] 26.6 pg 25.9 - 33.9 pg [facility] MCHC (RBC) [Mass/Vol] 29.9 g/dL Low 31.4 - 35.9 g/dL [facility] MCV (RBC) [Entitic vol] 89.1 fL 79.6 - 97.7 fL [facility] Platelet mean volume (Bld) [Entitic vol] 10.0 fL 8.5 - 12.2 fL [facility] Platelets (Bld) [#/Vol] 316 10*3/uL 150 - 393 K/uL [facility] RBC (Bld) [#/Vol] 3.68 10*6/uL Low [facility] WBC (Bld) [#/Vol] 8.80 10*3/uL 3.99 - 11.19 K/uL [facility] CHEM 7 (LYTES,BUN,CREA,GLUC) on 08-10-2022 Anion gap [Moles/Vol] 18 mmol/L High 7-17 [facility] Comment on above: Performed By: #### M GO, CHM7 #### [facility] (DEFAULT) [address] [place] [address] 17753 Chloride [Moles/Vol] 105 mmol/L Normal 98-108 [facility] Comment on above: Performed By: #### Jaron MONIQUE CHM7 #### [facility] (DEFAULT) [address] [place] [address] 66564 CO2 [Moles/Vol] 19 mmol/L Low 21-31 [facility] Comment on above: Performed By: #### RILEY ESCOBAR7 #### [facility] (DEFAULT) [address] [place] [address] 08171 Creatinine [Mass/Vol] 1.61 mg/dL High 0.50-1.20 [facility] Comment on above: Performed By: #### RILEY ESCOBAR7 #### [facility] (DEFAULT) [address] [place] [address] 56040 GFR/1.73 sq M.predicted among non-blacks MDRD (S/P/Bld) [Vol rate/Area] 36 mL/min/{1.73_m2} Low >=60 [facility] Comment on above: Result Comment: Repo rted eGFR is based on the CKD-EPI 2020 equation using creatinine, age, and sex. Performed By: #### Jaron MONIQUE CHJaron7 #### [facility] (DEFAULT) [address] [place] [address] 62246 Glucose [Mass/Vol] 122 mg/dL High 70-99 [facility] Comment on above: Performed By: #### RILEY ESCOBAR7 #### [facility] (DEFAULT) [address] [place] [address] 89836 Osmolality [Osmolality] 302 mosm/kg Normal 278-305 [facility] Comment on above: Performed By: #### Jaron MONIQUE CHM7 #### [facility] (DEFAULT) [address] [place] [address] 89231 Potassium [Moles/Vol] 4.9 mmol/L Normal 3.5-5.0 [facility] Comment on above: Performed By: #### RILEY ESCOBAR7 #### [facility] (DEFAULT) [address] [place] [address] Sodium [Moles/Vol] 137 mmol/L Normal 135-145 [facility] Comment on above: Performed By: #### Jaron MONIQUE CHM7 #### [facility] (DEFAULT) [address] [place] [address] Urea nitrogen [Mass/Vol] 46 mg/dL High 7-25 [facility] Comment on above: Performed By: #### RILEY ESCOBAR7 #### [facility] (DEFAULT) [address] [place] [address] 90381 Urea nitrogen/Creatinine [Mass ratio] 29 mg/mg Normal [facility] Comment on above: Performed By: #### RILEY ESCOBAR7 #### [facility] [facility] (DEFAULT) [address] [place] [id number] CHEM 7 (LYTES,BUN,CREA,GLUC) Ordered By: Patience Ponce on 08-10-2022 Anion gap [Moles/Vol] 18 mmol/L High 7 - 17 mmol/L [facility] Chloride [Moles/Vol] 105 mmol/L 98 - 10 8 mmol/L [facility] CO2 [Moles/Vol] 19 mmol/L Low 21 - 31 mmol/L [facility] Creatinine [Mass/Vol] 1.61 mg/dL High 0.50 - 1.20 mg/dL [facility] GFR/1.73 sq M.predicted CKD-EPI (S/P/Bld) [Vol rate/Area] 36 Low - PINF [facility] Glucose [Mass/Vol] 122 mg/dL High 70 - 99 mg/dL [facility] Interpretation and review of laboratory results Abnormal [facility] Osmolality Calc [Osmolality] 302 [facility] Potassium [Moles/Vol] 4.9 mmol/L 3.5 - 5.0 mmol/L [facility] Sodium [Moles/Vol] 137 mmol/L 135 - 145 mmol/L [facility] Urea nitrogen [Mass/Vol] 46 mg/dL High 7 - 25 mg/dL [facility] Urea nitrogen/Creatinine [Mass ratio] 29 mg/mg [facility] CT HEAD WITHOUT CONTRASTon 1 10-10-2021 CT HEAD WITHOUT CONTRAST EXAM: CT HEAD WITHOUT CONTRAST, 08/10/2022 1:03 PM COMPARISON: August 01, 2022 at 1610 hours CLINICAL INDICATIONS: 62 years Female worsening exam, not moving L side as well; TECHNIQUE: A series of transaxial computerized tomographic images are obtained from base of skull to vertex without intravenous contrast. Axial whole-head and thin section posterior fossa slices are provided. Reformats: Sagittal and coronal. FINDINGS: Subtle low-attenuation in the right insula is unchanged from prior exam, corresponding to the recent infarct. Subtle low attenuation in the right colmenares radiata corresponding to the area of perfusion abnormality. No acute intracranial hemorrhage. There is no extracerebral collection. Ventricles are normal in size and configuration for patient's stated age. Atherosclerotic calcifications of the major arteries at the skull base are present. Calvarium and skull base appear intact. Visualized sinuses show no air fluid levels. Visualized orbits are unremarkable. IMPRESSION: The subtle area of low-attenuation in the right insula is unchanged. There is also additional subtle area of low-attenuation in the right frontal colmenares radiata corresponding to the perfusion abnormality from prior CTP. These are compatible with recent infarcts. No evidence of acute hemorrhage. Normal [facility] CT Head WO contraston 2021 [facility]narrative) [facility] FLEXIBLE ENDOSCOPIC EVALUATI ON OF SWALLOWINGon 08-10-2022 RADIOLOGY [facility] GLUCOSE POCon 08-10-2022 Glucose [Mass/Vol] 127 mg/dL High 70 - 99 mg/dL [facility] Glucose [Mass/Vol] 150 mg/dL High 70 - 99 mg/dL [facility] Glucose [Mass/Vol] 161 mg/dL High 70 - 99 mg/dL [facility] Glucose [Mass/Vol] 103 mg/dL High 70 - 99 mg/dL [facility] Glucose [Mass/Vol] 75 mg/dL 70 - 99 mg/dL [facility] Interpretation and review of laboratory results Abnormal [facility] Glucose [Mass/Vol] 112 mg/dL High 70 - 99 mg/dL [facility] Glucose [Mass/Vol] 115 mg/dL High 70 - 99 mg/dL [facility] Glucose [Mass/Vol] 76 mg/dL 70 - 99 mg/dL [facility] Glucose [Mass/Vol] 72 mg/dL 70 - 99 mg/dL [facility] HEMOGLOBIN [id number] By: Sa kelechi Hayes on 08-10-2022 Average glucose Estimated from glycated hemoglobin (Bld) [Mass/Vol] 169 mg/dL [facility] HbA1c (Bld) [Mass fraction] 7.5 % High 4.7 - 5.6 % [facility] Interpretation and review of laboratory results Abnormal [facility] HEMOGLOBIN A1Con 08-10-2022 Glucose [Mass/Vol] 169 mg/dL Normal [facility] Comment on above: Performed By: #### A 1CB #### [facility] (DEFAULT) [address] [place] [address] HbA1c (Bld) [Mass fraction] 7.5 % High 4.7-5.6 [facility] Comment on above: Performed By: #### A 1CB #### [facility] (DEFAULT) [address] [place] [address] HEPATIC FUNCTION PANELon Albumin [Mass/Vol] 3.3 g/dL Low 3.5-5.0 [facility] Comment on above: Performed By: #### M KAYDEN, CHM7 #### [facility] (DEFAULT) [address] [place] [address] ALP [Catalytic activity/Vol] 52 U/L Normal 32-126 [facility] Comment on above: Performed By: #### Jaron MONIQUE CHM7 #### [facility] (DEFAULT) [address] [place] [address] 16368 ALT [Catalytic activity/Vol] 9 U/L Normal 9-48 [facility] Comment on above: Performed By: #### Jaron MONIQUE CHM7 #### [facility] (DEFAULT) [address] [place] [address] 44948 AST [Catalytic activity/Vol] 23 U/L Normal 10-39 [facility] Comment on above: Performed By: #### Jaron MONIQUE CHM7 #### [facility] (DEFAULT) [address] [place] [address]6538 Bilirubin [Mass/Vol] 1.0 mg/dL Normal <1.5 [facility] Comment on above: Performed By: #### Jaron MONIQUE CHM7 #### [facility] (DEFAULT) [address] [place] [address]247 Bilirubin.indirect [Mass/Vol] 0.3 mg/dL High <0.3 [facility] Comment on above: Performed By: #### Jaron MONIQUE CHM7 #### [facility] (DEFAULT) [address] [place] [address] 21581 Protein [Mass/Vol] 6.0 g/dL Low 6.4-8.3 [facility] Comment on above: Performed By: #### Jaron MONIQUE CHM7 #### [facility] (DEFAULT) [address] [place] [address] 94476 Albumin [Mass/Vol] 3.3 g/dL Low 3.5 - 5.0 g/dL [facility] ALP [Catalytic activity/Vol] 52 U/L 32 - 126 U/L [facility] ALT [Catalytic activity/Vol] 9 U/L 9 - 48 U/L [facility] AST [Catalytic activity/Vol] 23 U/L 10 - 39 U/L [facility] Bilirubin [Mass/Vol] 1.0 mg/dL [facility] - 1.5 mg/dL [facility] Bilirubin.direct [Mass/Vol] 0.3 mg/dL High NINF - 0.3 mg/dL [facility] Protein [Mass/Vol] 6.0 g/dL Low 6.4 - 8.3 g/dL [facility] IONIZED CALCIUM, WHOLE BLOOD on 08-10-2022 ICA 3.56 mg/dL Low 4.60-5.30 [facility] Comment on above: Performed By: #### RILEY ESCOBAR7 #### [facility] (DEFAULT) [address] [place] [address] IONIZED CALCIUM, WHOLE BLOOD Ordered By: Keven Fortune on 08-10-2022 Calcium.ionized (Bld) [Moles/Vol] 3.56 mg/dL Low 4.60 - 5.30 mg/dL [facility] Interpretation and review of laboratory results Abnormal [facility] LIPID PANEL WITH REFLEX TO Jaron SOW LDLon 08-10-2022 Calculated LDL Cholesterol 31 mg/dL Normal 0-99 [facility] Comment on above: Result Comment: [<10 0 mg/dL: Optimal] [100-129 mg/dL: Near Optimal] [130-159 mg/dL: Borderline High] [160-189 mg/dL: High] [>189 mg/dL: Very High] Performed By: #### RILEY ESCOBAR7 #### [facility] (DEFAULT) [address] [place] [address]11 Cholesterol [Mass/Vol] 67 mg/dL Normal <200 [facility] Comment on above: Result Comment: [<20 0 mg/dL: Desirable] [200-239 mg/dL: Borderline High] [>239 mg/dL: High] Performed By: #### RILEY ESCOBAR7 #### [facility] (DEFAULT) [address] [place] [address] Cholesterol in HDL [Mass/Vol] 25 mg/dL Low >=40 [facility] Comment on above: Result Comment: [<40 mg/dL: Low (High Risk)] [>59 mg/dL: High (Low Risk)] Performed By: #### Jaron MONIQUE CHM7 #### [facility] (DEFAULT) [address] [place] [address] 85201 Non HDL Cholesterol 42 mg/dL Normal <130 [facility] Comment on above: Performed By: #### Jaron MONIQUE CHM7 #### [facility] (DEFAULT) [address] [place] [address] 14574 Total Cholesterol/HDL Ratio 2.7 Normal <4.5 [facility] Comment on above: Performed By: #### RILEY ESCOBAR7 #### [facility] (DEFAULT) [address] [place] [address] 18499 Triglyceride [Mass/Vol] 54 mg/dL Normal <150 [facility] Comment on above: Result Comment: [<15 0 mg/dL: Desirable] [150-199 mg/dL: Borderline] [200-499 mg/dL: High] [>500 mg/dL: Very High] Performed By: #### RILEY ESCOBAR7 #### [facility] (DEFAULT) [address] [place] [address]40 Cholesterol [Mass/Vol] 67 mg/dL NINF - 200 mg/dL [facility] Cholesterol in HDL [Mass/Vol] 25 mg/dL Low 40 - PINF mg/dL [facility] Cholesterol in HDL [Mass/Vol] 42 mg/dL NINF - 130 mg/dL [facility] Cholesterol in LDL [Mass/Vol] 31 mg/dL 0 - 99 mg/dL [facility] Cholesterol.total/Era sterol in HDL [Mass ratio] 2.7 {ratio} NINF - 4.5 [facility] Triglyceride [Mass/Vol] 54 mg/dL NINF - 150 mg/dL [facility] MAGNESIUMon 08-10-2022 Interpretation and review of laboratory results Normal [facility] Magnesium [Mass/Vol] 1.7 mg/dL 1.6 - 2 .6 mg/dL [facility] Magnesium [Mass/Vol] 1.7 mg/dL Normal 1.6-2.6 [facility] Comment on above: Performed By: #### Anju TERAN, MGO #### [facility] (DEFAULT) [address] [place] [address] 34873 No Panel Informationon 08-10 Interpretation and review of laboratory results Abnormal [facility] POC Sample Type CAPBL [facility] POC Sample Type CAPBL [facility] Interpretation and review of laboratory results Abnormal [facility] POC Sample Type CAPBL [facility] Interpretation and review of laboratory results Abnormal [facility] PHOSPHATE, INORGANICon 08-10 Interpretation and review of laboratory results Abnormal [facility] Phosphate [Mass/Vol] 6.0 mg/dL High 2.2 - 4 .6 mg/dL [facility] Phosphorous 6.0 mg/dL High 2.2-4.6 [facility] Comment on above: Performed By: #### Anju TERNA, O #### [facility] (DEFAULT) [address] [place] [address] 77992 PT,INR,PTTon 08-10-2022 aPTT Coag (Bld) [Time] 35.3 s High 24.0-34.3 [facility] Comment on above: Performed By: #### SURAJ ESCOBAR #### [facility] (DEFAULT) [address] [place] [address] 65884 INR Coag (PPP) [Relative time] 1.5 {INR} High 0.9-1.1 [facility] Comment on above: Performed By: #### SURAJ ESCOBAR #### [facility] (DEFAULT) [address] [place] [address] 64036 PT Coag (PPP) [Time] 18.1 s High 11.9-14.2 [facility] Comment on above: Performed By: #### M KAYDEN [facility] #### [facility] (DEFAULT) [address] [address] aPTT Coag (PPP) [Time] 35.3 s High [facility] INR Coag (Bld) [Relative time] 1.5 {INR} High 0.9 - 1.1 [facility] Interpretation and review of laboratory results Abnormal [facility] PT Coag (PPP) [Time] 18.1 s High [facility] XR ABDOMEN 1 VIEWon 08-10-20 XR ABDOMEN 1 VIEW EXAM: XR ABDOMEN 1 V IEW, 08/10/2022 15:13 PM COMPARISON: No prior abdominal radiographs available for comparison. CLINICAL INDICATIONS: Dobhoff placement FINDINGS: The distal tip of the Dobbhoff tube is noted in the proximal jejunum. No gross free air is identified. The bowel gas pattern is nonobstructive. Most of the pelvis was excluded and portions of the right lower quadrant. There are small clips or devices the right upper pelvis and the right upper quadrant medially. Degenerative changes are visualized in the spine. Chest findings are similar to the chest radiograph of August 09, 2022. IMPRESSION: Distal tip of the Dobbhoff tube in the proximal jejunum. Normal [facility] XR Abdomen Single viewon RADIOLOGY RADIOLOGY [facility] Radiology Study observation (narrative) [facility] XR Abdomen Single viewOrdere d By: Shawanda Mcginnis on 08-10-2022 [facility] Work Phone: Absolute lymphocyte countOrd ered By: Dr. Ernst on 08-09-2022 Lymphocytes Auto (Unsp spec) [#/Vol] 2.22 10*3/uL 0.83-4.51 [facility] Basophil percentageOrdered B y: Dr. Ernst on 08-09-2022 Basophils/100 WBC (Bld) 1.3 % 0-1 [facility] Chloride [Moles/Vol] 100 mmol/L 98-107 [facility] Eosinophils/100 WBC (Bld) 0.9 % 0-5 [facility] Glucose [Mass/Vol] 87 mg/dL 74-106 [facility] Neutrophils (Bld) [#/Vol] 4.8 10*3/uL 2.0-7.7 [facility] Neutrophils/100 WBC (Bld) 56.1 % 47-70 [facility] Potassium [Moles/Vol] 5.5 mmol/L 3.5-5.1 [facility] Comment on above: Moderate Hemolysis, Result may be falsely increased. Sodium [Moles/Vol] 134 mmol/L 136-145 [facility] WBC (Bld) [#/Vol] 8.6 10*3/uL 4.4-11.0 [facility] Blood erythrocytes count (nu mber/volume)Ordered By: Dr. Ernst on 08-09-2022 RBC (Bld) [#/Vol] 4.10 10*6/uL 4.2-5.4 [facility] Blood hemoglobin measurement (mass/volume)Ordered By: Dr. Ernst on 08-09-2022 Hemoglobin (Bld) [Mass/Vol] 11.1 g/dL 12.0-15.0 [facility] Blood lymphocytes/100 leukoc ytesOrdered By: Dr. Ernst on 08-09-2022 Lymphocytes/100 WBC (Bld) 25.7 % 19-41 [facility] Blood monocytes/100 leukocyt esOrdered By: Dr. Ernst on 08-09-2022 Monocytes/100 WBC (Bld) 15.4 % 0-10 [facility] Blood platelet mean volumeOr dered By: Dr. Ernst on 08-09-2022 Platelet mean volume (Bld) [Entitic vol] 10.0 fL 6.2-12.0 [facility] CHEM 7 (LYTES,BUN,CREA,GLUC) on 08-09-2022 Anion gap [Moles/Vol] 16 mmol/L Normal 7-17 [facility] Comment on above: Performed By: #### M KAYDEN, CHM7 #### [facility] (DEFAULT) [address] [place] [address] 71299 Chloride [Moles/Vol] 101 mmol/L Normal 98-108 [facility] Comment on above: Performed By: #### Jaron MONIQUE CHM7 #### [facility] (DEFAULT) [address] [place] [address] 75223 CO2 [Moles/Vol] 19 mmol/L Low 21-31 [facility] Comment on above: Performed By: #### RILEY ESCOBAR7 #### [facility] (DEFAULT) [address] [place] [address] 84213 Creatinine [Mass/Vol] 1.64 mg/dL High 0.50-1.20 [facility] Comment on above: Performed By: #### RILEY ESCOBAR7 #### [facility] (DEFAULT) [address] [place] [address] 79155 GFR/1.73 sq M.predicted among non-blacks MDRD (S/P/Bld) [Vol rate/Area] 35 mL/min/{1.73_m2} Low >=60 [facility] Comment on above: Result Comment: Repo rted eGFR is based on the CKD-EPI 2020 equation using creatinine, age, and sex. Performed By: #### RILEY ESCOBAR7 #### [facility] (DEFAULT) [address] [place] [address]00 Glucose [Mass/Vol] 152 mg/dL High 70-99 [facility] Comment on above: Performed By: #### RILEY ESCOBAR7 #### [facility] (DEFAULT) [address] [place] [address] 25947 Osmolality [Osmolality] 294 mosm/kg Normal 278-305 [facility] Comment on above: Performed By: #### Jaron MONIQUE CHM7 #### [facility] (DEFAULT) [address] [place] [address] 02567 Potassium [Moles/Vol] 5.0 mmol/L Normal 3.5-5.0 [facility] Comment on above: Performed By: #### Jaron MONIQUE CHM7 #### [facility] (DEFAULT) [address] [place] [address] Sodium [Moles/Vol] 131 mmol/L Low 135-145 [facility] Comment on above: Performed By: #### Jaron MONIQUE CHM7 #### [facility] (DEFAULT) [address] [place] [address] Urea nitrogen [Mass/Vol] 49 mg/dL High 7-25 [facility] Comment on above: Performed By: #### Jaron MONIQUE CHM7 #### [facility] (DEFAULT) [address] [place] [address] Urea nitrogen/Creatinine [Mass ratio] 30 mg/mg Normal [facility] Comment on above: Performed By: #### RILEY ESCOBAR7 #### [facility] (DEFAULT) [address] [place] [address] 19739 Anion gap [Moles/Vol] 16 mmol/L 7 - 17 mmol/L [facility] Chloride [Moles/Vol] 101 mmol/L 98 - 10 8 mmol/L [facility] CO2 [Moles/Vol] 19 mmol/L Low 21 - 31 mmol/L [facility] Creatinine [Mass/Vol] 1.64 mg/dL High 0.50 - 1.20 mg/dL [facility] GFR/1.73 sq M.predicted CKD-EPI (S/P/Bld) [Vol rate/Area] 35 Low - PINF [facility] Glucose [Mass/Vol] 152 mg/dL High 70 - 99 mg/dL [facility] Osmolality Calc [Osmolality] 294 [facility] Potassium [Moles/Vol] 5.0 mmol/L 3.5 - 5.0 mmol/L [facility] Sodium [Moles/Vol] 131 mmol/L Low 135 - 145 mmol/L [facility] Urea nitrogen [Mass/Vol] 49 mg/dL High 7 - 25 mg/dL [facility] Urea nitrogen/Creatinine [Mass ratio] 30 mg/mg [facility] CT CEREBRAL PERFUSION ANALYS Donna 08-09-2022 CT CEREBRAL PERFUSION ANALYSIS EXAM: CT CEREBRAL PERFUSION ANALYSIS, 08/09/2022 08:27 AM COMPARISON: CT head on 08/01/2022 CLINICAL INDICATIONS: 62 years Female Suspected Stroke; TECHNIQUE: A series of axial multislice computerized tomographic images of the brain are obtained following rapid bolus administration of contrast. FINDINGS: Examination is technically adequate. [employer] automated software assessment:There is a small core infarct with diminished CBF involving the deep white matter of the right frontal lobe. This does not correspond directly to the area of low-attenuation on the concurrent noncontrast CT in the right insula. There is large penumbra in the right MCA territory, involving the right frontal and parietal and temporal lobes, and the insular region. Estimated infarct core (CBF<30%): 2 mL. Estimated penumbra (perfusion mismatch): 86 mL. Tmax >6s: 88 mL. Additional, notable findings on the syngo.via perfusion maps: None. IMPRESSION: Large perfusion mismatch in the right MCA territory, with mismatch volume of 86 cc. Small core infarct in the deep white matter, although this does not correspond to the evolving infarct noted on the noncontrast CT. Normal [facility] RADIOLOGY RADIOLOGY [facility] CT HEAD WITHOUT CONTRASTon 1 10-09-2021 CT HEAD WITHOUT CONTRAST EXAM: CT HEAD WITHOUT CONTRAST, 08/09/2022 4:17 PM COMPARISON: CT of the head on 08/22/2022 at 0744 hours CLINICAL INDICATIONS: 62 years Female Stroke, follow up; TECHNIQUE: A series of transaxial computerized tomographic images are obtained from base of skull to vertex without intravenous contrast. Axial whole-head and thin section posterior fossa slices are provided. Reformats: Sagittal and coronal. FINDINGS: The previously noted area of low-attenuation in the right insula is less conspicuous than on prior likely due to a degree of contrast staining. There is no new loss of coburn-white matter differentiation. No evidence of parenchymal hemorrhage. There is no extracerebral collection. Ventricles are normal in size and configuration for patient's stated age. Atherosclerotic calcifications of the major arteries at the skull base are present. Calvarium and skull base appear intact. Visualized sinuses show no air fluid levels. Visualized orbits are unremarkable. IMPRESSION: The area of low-attenuation in the right insula was present on prior, likely due to small amount of contrast staining. No evidence of acute intracranial hemorrhage. Normal [facility] CT Head WO contraston 2021 [facility] [facility] Head limitedon 08-09-2022 RADIOLOGY RADIOLOGY [facility] CT Head limitedOrdered By: Mar Garrett on 08-09-2022 [facility] Work Phone: CT STROKE HEAD-STROKE ALERT ONLYon 08-09-2022 CT STROKE HEAD-STROKE ALERT ONLY EXAM: CT STROKE HEAD-STROKE ALERT ONLY, 08/09/2022 7:45 AM COMPARISON: None. CLINICAL INDICATIONS: 62 years Female Suspected Stroke; TECHNIQUE: A series of transaxial computerized tomographic images are obtained from base of skull to vertex without intravenous contrast. Axial whole-head and thin section posterior fossa slices are provided. Reformats: Sagittal and coronal. FINDINGS: Loss of coburn-white differentiation in the right insula. No evidence of acute intracranial hemorrhage. There is no abnormal extracerebral collection. No significant ventriculomegaly. There is no mass effect or midline shift. Calvaria and skull base appear intact. Minimal mucosal thickening in the visualized paranasal sinuses with no air-fluid levels. Visualized orbits are unremarkable. IMPRESSION: 1. 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 2. No acute intracranial hemorrhage. Findings were discussed with Mariposa Han NP at 7:52 AM on August 09, 2022. I personally viewed and interpreted these images and I have reviewed and approved this report. Normal [facility] Determination of erythrocyte mean corpuscular volume (MCV)Ordered By: Dr. Ernst on 08-09-2022 MCV (RBC) [Entitic vol] 88.8 fL 81-99 [facility] Hematocrit Auto (Bld) [Volum e fraction]Ordered By: Dr. Ernst on 08-09-2022 Hematocrit (Bld) [Volume fraction] 36.4 % 37-47 [facility] INR in Blood by Coagulation assayOrdered By: Dr. Ernst on 08-09-2022 INR Coag (Bld) [Relative time] 1.5 {INR} [facility] IONIZED CALCIUM, WHOLE BLOOD on 08-09-2022 ICA 4.32 mg/dL Low 4.60-5.30 [facility] Comment on above: Performed By: #### M KAYDEN M7 #### [facility] (DEFAULT) [address] [place] [address] IONIZED CALCIUM, WHOLE BLOOD Ordered By: Myriam Cuello on 08-09-2022 Calcium.ionized (Bld) [Moles/Vol] 4.32 mg/dL Low 4.60 - 5.30 mg/dL [facility] Interpretation and review of laboratory results Abnormal [facility] Laboratory - Chemistry and C hemistry - challengeOrdered By: Dr. Ernst on 08-09-2022 CO2 [Moles/Vol] 25.0 mmol/L 21.0-32.0 [facility] Urea nitrogen/Creatinine [Mass ratio] 28.9 mg/mg 10-20 [facility] Laboratory - CoagulationOrde red By: Dr. Ernst on 08-09-2022 aPTT Coag (Bld) [Time] 33.8 s 24.1-36.2 [facility] PT Coag (PPP) [Time] 18.1 s 11.7-14.9 [facility] Laboratory - Hematology and Cell countsOrdered By: Dr. Ernst on 08-09-2022 Erythrocyte distribution width (RBC) [Entitic vol] 57.3 fL 35.1-43.9 [facility] Erythrocyte distribution width (RBC) [Ratio] 18.0 % 11.6-14.6 [facility] Immature granulocytes/100 WBC (Bld) 0.600 % 0.0-0.9 [facility] Comment on above: IG% - Immature Granu locytes (promyelocytes, myelocytes and metamyelocytes) > 1% indicates that a LEFT SHIFT is Present. MCH (RBC) [Entitic mass] 27.1 pg 27.0-32.0 [facility] Nucleated RBC/100 WBC (Bld) [Ratio] 0 % 0-5 [facility] MAGNESIUMon 08-09-2022 Magnesium [Mass/Vol] 1.7 mg/dL Normal 1.6-2.6 [facility] Comment on above: Performed By: #### M DUSTY MONIQUEM7 #### [facility] (DEFAULT) [address] [place] [address] Interpretation and review of laboratory results Normal [facility] Magnesium [Mass/Vol] 1.7 mg/dL 1.6 - 2 .6 mg/dL [facility] MCHC Auto (RBC) [Mass/Vol]Or dered By: Dr. Ernst on 08-09-2022 MCHC (RBC) [Mass/Vol] 30.5 g/dL 32-36 [facility] No Panel Informationon 08-09 [facility] Interpretation and review of laboratory results Abnormal [facility] Radiology Study observation (narrative) [facility] No Panel InformationOrdered By: Dr. Ernst on 08-09-2022 Estimated GFR (MDRD) Amer 39 mL/min >60 [facility] Comment on above: GFR Calc Estimated GFR (MDRD) Non-Af Amer 32 mL/min >60 [facility] Comment on above: Non- GFR Calc Troponin I High Sensitivity 18 pg/mL 3.0-54.0 [facility] Comment on above: Please Note: New Riya t Units and Gender Specific Reference Ranges. For more information see Policy Stat Procedure [place] High Sensitivity Troponin (TNIH) and attachments. PHOSPHATE, INORGANICon 08-09 Phosphorous 6.7 mg/dL High 2.2-4.6 [facility] Comment on above: Performed By: #### RILEY ESCOBAR7 #### [facility] (DEFAULT) [address] [place] [address] Phosphate [Mass/Vol] 6.7 mg/dL High 2.2 - 4 .6 mg/dL [facility] Platelets bldOrdered By: Dr. Ernst on 08-09-2022 Platelets (Bld) [#/Vol] 478 10*3/uL 150-450 [facility] Portable XR Chest Viewson RADIOLOGY RADIOLOGY [facility] Portable XR Chest ViewsOrder ed By: Kia Cadet on 08-09-2022 [facility] Work Phone: Serum or plasma calcium paul urement (mass/volume)Ordered By: Dr. Ernst on 08-09-2022 Calcium [Mass/Vol] 8.6 mg/dL 8.5-10.1 [facility] Serum or plasma creatinine m easurement (mass/volume)Ordered By: Dr. Ernst on 08-09-2022 Creatinine [Mass/Vol] 1.73 mg/dL 0.55-1.02 [facility] Comment on above: The validity of the calculated GFR & GFRAA in patients over 70 years has not been determined. Clinical correlation is essential. Serum or plasma urea nitroge n measurement (mass/volume)Ordered By: Dr. Ernst on 08-09-2022 Urea nitrogen [Mass/Vol] 50 mg/dL 7-18 [facility] Thin prep Papanicolaou smear with manual screeningOrdered By: Dr. Ernst on 08-09-2022 Thin prep Papanicolaou smear with manual screening 9 5-15 [facility] VON WILLEBRAND FACTOR AGon 1 10-09-2021 Von Willebrand Factor Antigen >400 High 50-180 [facility] Comment on above: Performed By: #### M [facility]7 #### [facility] (DEFAULT) [address] [place] [address] VON WILLEBRAND FACTOR AGOrde red By: Benson Contreras on 08-09-2022 Interpretation and review of laboratory results Abnormal [facility] vWf Ag actual/normal IA (PPP) [Relative mass conc] % High 50 - 180 % [facility] XR CHEST PORTABLEon 08-09-20 XR CHEST PORTABLE EXAM: XR CHEST MICHELE BLE, 08/09/2022 11:52 AM COMPARISON: August 09, 2022 CLINICAL INDICATIONS: evaluate for pulmonary edema RELEVANT CLINICAL HISTORY: FINDINGS: (Adequate technique) Implanted Devices: None Thorax: Linear atelectasis in the right perihilar region, probably in the anterior segment of the right upper lobe. Lungs otherwise clear. Heart mildly enlarged. IMPRESSION: Mild cardiomegaly. Linear atelectatic changes. Normal [facility] CBCon 08-04-2022 HCT Canceled Normal [facility] Comment on above: Order Comment: TEST CBC WAS CANCELLED, 08/04/2022 06:36 Performed By: #### C BC ####[id number] [place] [address] HGB Canceled Normal [facility] Comment on above: Order Comment: TEST CBC WAS CANCELLED, 08/04/2022 06:36 Performed By: #### C BC ####[id number] [place] [address] MCHC Canceled Normal [facility] Comment on above: Order Comment: TEST CBC WAS CANCELLED, 08/04/2022 06:36 Performed By: #### C BC ####[id number] [place] [address] MCV Canceled Normal [facility] Comment on above: Order Comment: TEST CBC WAS CANCELLED, 08/04/2022 06:36 Performed By: #### C BC ####[id number] [place] [address] NUCLEATED RBC Canceled Normal [facility] Comment on above: Order Comment: TEST CBC WAS CANCELLED, 08/04/2022 06:36 Performed By: #### C BC ####[id number] [place] [address] PLT Canceled Normal [facility] Comment on above: Order Comment: TEST CBC WAS CANCELLED, 08/04/2022 06:36 Performed By: #### C BC ####[id number] [place] [address] RBC Canceled Normal [facility] Comment on above: Order Comment: TEST CBC WAS CANCELLED, 08/04/2022 06:36 Performed By: #### C BC ####[id number] [place] [address] RDW-CV Canceled Normal [facility] Comment on above: Order Comment: TEST CBC WAS CANCELLED, 08/04/2022 06:36 Performed By: #### C BC ####[id number] [place] [address] WBC Canceled Normal [facility] Comment on above: Order Comment: TEST CBC WAS CANCELLED, 08/04/2022 06:36 Performed By: #### C BC ####[id number] [place] [address] RENAL FUNCTION PANELon 08-04 ALBUMIN Canceled Normal [facility] Comment on above: Order Comment: TEST RENAL FUNCTION PANEL WAS CANCELLED, 08/04/2022 06:36 Performed By: #### R ENAL ####[id number] [place] [address] ANION GAP Canceled Normal [facility] Comment on above: Order Comment: TEST RENAL FUNCTION PANEL WAS CANCELLED, 08/04/2022 06:36 Performed By: #### R ENAL ####[id number] [place] [address] BICARBONATE Canceled Normal [facility] Comment on above: Order Comment: TEST RENAL FUNCTION PANEL WAS CANCELLED, 08/04/2022 06:36 Performed By: #### R ENAL ####[id number] [place] [address] CALCIUM Canceled Normal [facility] Comment on above: Order Comment: TEST RENAL FUNCTION PANEL WAS CANCELLED, 08/04/2022 06:36 Performed By: #### R ENAL ####[id number] [place] [address] CHLORIDE Canceled Normal [facility] Comment on above: Order Comment: TEST RENAL FUNCTION PANEL WAS CANCELLED, 08/04/2022 06:36 Performed By: #### R ENAL ####[id number] [place] [address] CREATININE Canceled Normal [facility] Comment on above: Order Comment: TEST RENAL FUNCTION PANEL WAS CANCELLED, 08/04/2022 06:36 Performed By: #### R ENAL ####[id number] [place] [address] eGFR FEMALE Canceled Normal [facility] Comment on above: Order Comment: TEST RENAL FUNCTION PANEL WAS CANCELLED, 08/04/2022 06:36 Result Comment: CALC ULATIONS OF ESTIMATED GFR ARE PERFORMED USING THE 2020 CKD-EPI STUDY REFIT EQUATION WITHOUT THE RACE VARIABLE FOR THE IDMS-TRACEABLE CREATININE METHODS.https://jasn.asnjournals.org/content/early/ ASN.0289528813 Performed By: #### R ENAL ####[id number] [place] [address] eGFR MALE Canceled Normal [facility] Comment on above: Order Comment: TEST RENAL FUNCTION PANEL WAS CANCELLED, 08/04/2022 06:36 Result Comment: CALC ULATIONS OF ESTIMATED GFR ARE PERFORMED USING THE 2020 CKD-EPI STUDY REFIT EQUATION WITHOUT THE RACE VARIABLE FOR THE IDMS-TRACEABLE CREATININE METHODS.https://jasn.asnjournals.org/content/early/ ASN.7299545724 Performed By: #### R ENAL ####[id number] [place] [address] GLUCOSE Canceled Normal [facility] Comment on above: Order Comment: TEST RENAL FUNCTION PANEL WAS CANCELLED, 08/04/2022 06:36 Performed By: #### R ENAL ####[id number] [place] [address] PHOSPHORUS Canceled Normal [facility] Comment on above: Order Comment: TEST RENAL FUNCTION PANEL WAS CANCELLED, 08/04/2022 06:36 Result Comment: The performance characteristics of phosphorus testing in heparinized plasma have been validated by the individual laboratory site where testing is performed. Testing on heparinized plasma is not approved by the FDA; however, such approval is not necessary. Performed By: #### R ENAL ####[id number] [place] [address] POTASSIUM Canceled Normal [facility] Comment on above: Order Comment: TEST RENAL FUNCTION PANEL WAS CANCELLED, 08/04/2022 06:36 Performed By: #### R ENAL ####[id number] [place] [address] SODIUM Canceled Normal [facility] Comment on above: Order Comment: TEST RENAL FUNCTION PANEL WAS CANCELLED, 08/04/2022 06:36 Performed By: #### R ENAL ####[id number] [place] [address] UREA NITROGEN Canceled Normal [facility] Comment on above: Order Comment: TEST RENAL FUNCTION PANEL WAS CANCELLED, 08/04/2022 06:36 Performed By: #### R ENAL ####[id number] [place] [address] Clinical Event Note-endocrin ology recs - no insulin changeson 08-03-2022 Clinical Event Note-endocrinology recs - no insulin changes Normal [facility] Clinical Note - Pharmacy v2- Discharge Med Counselingon 08-03-2022 Clinical Note - Pharmacy v2-Discharge Med Counseling Normal [facility] Daily Progress Note - Psychi atryon 08-03-2022 Daily Progress Note - Psychiatry Normal [facility] GLUCOSE-POCTon 08-03-2022 Glucose [Mass/Vol] 152 mg/dL High 74 - 99 [facility] Comment on above: Performed By: #### G MANJULA ####[id number] [place] [address] Glucose [Mass/Vol] 191 mg/dL High 74 - 99 [facility] Comment on above: Performed By: #### G MANJULA ####[id number] [place] [address] Glucose [Mass/Vol] 152 mg/dL High 74 - 99 [facility] Comment on above: Performed By: #### G MANJULA ####[id number] [place] [address] No Panel Informationon 08-03 152 mg/dL above high threshold 74 - 99 [facility] Work Phone: 191 mg/dL above high threshold 74 - 99 [facility] 6 [facility] Work Phone: 152 mg/dL above high threshold 74 - 99 [facility]astroen terology-[facility] lwell 6 I Work Phone: Order Reconciliationon 08-03 Order Reconciliation Normal [facility] 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 [address] MCHC (RBC) [Mass/Vol] 30.7 g/dL Low 32.0 - 36.0 [facility] Comment on above: Performed By: #### C BC ####[id number] [place] [address] MCV (RBC) [Entitic vol] 95 fL Normal 80 - 100 [facility] Comment on above: Performed By: #### C BC ####[id number] [place] [address] NUCLEATED RBC 0.0 /100 WBC Normal 0.0-0.0 [facility] Comment on above: Performed By: #### C BC ####[id number] [place] [address] Platelets (Bld) [#/Vol] 541 10*3/uL High 150 - 450 [facility] Comment on above: Performed By: #### C BC ####[id number] [place] [address] RBC 3.72 x10E12/L Low 4.00 - 5.20 [facility] Comment on above: Performed By: #### C BC ####[id number] [place] [address] WBC (Bld) [#/Vol] 7.8 10*3/uL Normal 4.4 - 11.3 [facility] Comment on above: Performed By: #### C BC ####[id number] [place] [address] HCT Canceled Normal [facility] Comment on above: Order Comment: TEST CBC WAS CANCELLED, 08/02/2022 02:14 NO SPECIMEN RECEIVED IN LAB. Performed By: #### C BC ####[id number] [place] [address] HGB Canceled Normal [facility] Comment on above: Order Comment: TEST CBC WAS CANCELLED, 08/02/2022 02:14 NO SPECIMEN RECEIVED IN LAB. Performed By: #### C BC ####[id number] [place] [address] MCHC Canceled Normal [facility] Comment on above: Order Comment: TEST CBC WAS CANCELLED, 08/02/2022 02:14 NO SPECIMEN RECEIVED IN LAB. Performed By: #### C BC ####[id number] [place] [address] MCV Canceled Normal [facility] Comment on above: Order Comment: TEST CBC WAS CANCELLED, 08/02/2022 02:14 NO SPECIMEN RECEIVED IN LAB. Performed By: #### C BC ####[id number] [place] [address] NUCLEATED RBC Canceled Normal [facility] Comment on above: Order Comment: TEST CBC WAS CANCELLED, 08/02/2022 02:14 NO SPECIMEN RECEIVED IN LAB. Performed By: #### C BC ####[id number] [place] [address] PLT Canceled Normal [facility] Comment on above: Order Comment: TEST CBC WAS CANCELLED, 08/02/2022 02:14 NO SPECIMEN RECEIVED IN LAB. Performed By: #### C BC ####[id number] [place] [address] RBC Canceled Normal [facility] Comment on above: Order Comment: TEST CBC WAS CANCELLED, 08/02/2022 02:14 NO SPECIMEN RECEIVED IN LAB. Performed By: #### C BC ####[id number] [place] [address] RDW-CV Canceled Normal [facility] Comment on above: Order Comment: TEST CBC WAS CANCELLED, 08/02/2022 02:14 NO SPECIMEN RECEIVED IN LAB. Performed By: #### C BC ####[id number] [place] [address] WBC Canceled Normal [facility] Comment on above: Order Comment: TEST CBC WAS CANCELLED, 08/02/2022 02:14 NO SPECIMEN RECEIVED IN LAB. Performed By: #### C BC ####[id number] [place] [address] Clinical Event Note-endocrin ology recs - no insulin changeson 08-02-2022 Clinical Event Note-endocrinology recs - no insulin changes Normal [facility] Daily Progress Note - Psychi atryon 08-02-2022 Daily Progress Note - Psychiatry Normal [facility] Daily Progress Note-Cardiolo gyon 08-02-2022 Daily Progress Note-Cardiology Normal [facility] GLUCOSE-POCTon 08-02-2022 Glucose [Mass/Vol] 172 mg/dL High 74 - 99 [facility] Comment on above: Performed By: #### G MANJULA ####[id number] [place] [address] Glucose [Mass/Vol] 147 mg/dL High 74 - 99 [facility] Comment on above: Performed By: #### G MANJULA ####[id number] [place] [address] Glucose [Mass/Vol] 139 mg/dL High 74 - 99 [facility] Comment on above: Performed By: #### G MANJULA ####[id number] [place] [address] Glucose [Mass/Vol] 110 mg/dL High 74 - 99 [facility] Comment on above: Performed By: #### G MANJULA ####[id number] [place] [address] Laboratory - Hematology and Cell countson 08-02-2022 Hematocrit (Bld) [Volume fraction] 35.5 % below low threshold See Below [facility]astroen [facility]ology-Too lwell 6 I Work Phone: Comment on above: Reference Range: 36. 0 - 46.0 Hemoglobin (Bld) [Mass/Vol] 10.9 g/dL below low threshold See Below [facility]astroen [facility]ology-[facility] lwell 6 I Work Phone: Comment on above: Reference Range: 12. 0 - 16.0 Platelets (Bld) [#/Vol] 541 10*3/uL above hi gh threshold 150 - 450 [facility] 6 I Work Phone: RBC (Bld) [#/Vol] 3.72 {x10E12/L} below low threshold See Below [facility] l[facility] 6 I Work Phone: Comment on above: Reference Range: 4.0 0 - 5.20 MAGNESIUMon 08-02-2022 MAGNESIUM Canceled Normal [facility] Comment on above: Order Comment: TEST MAGNESIUM WAS CANCELLED, 08/02/2022 02:14 NO SPECIMEN RECEIVED IN LAB. Performed By: #### M G ####[id number] [place] [address] No Panel Informationon 08-02 172 mg/dL above high threshold 74 - 99 [facility]astroen [facility]ology-[facility] l[facility] 6 I Work Phone: 16.8 % above high threshold See Below [facility] l[facility] 6 I Work Phone: Comment on above: Reference Range: 11. 5 - 14.5 30.7 g/dL below low threshold See Below [facility]ology-[facility] 6 [facility] Work Phone: Comment on above: Reference Range: 32. 0 - 36.0 95 fL 80 - 100 [facility]ology-[facility] 6 [facility] Work Phone: 0.0 {/100_WBC} 0.0-0.0 [facility]-Gastroe n terology-[facility] l[facility] 6 [facility] Work Phone: 7.8 {x10E9/L} 4.4 - 11.3 [facility]astroen [facility]ology-[facility] l[facility] 6 [facility] Work Phone: 147 mg/dL above high threshold 74 - 99 [facility]-Gastroen terology-Too lwell 6 [facility] Work Phone: 139 mg/dL above high threshold 74 - 99 [facility]astroen terology-Too lwell 6 [facility] Work Phone: 110 mg/dL above high threshold 74 - 99 [facility]astroen terology-Too lwell 6 [facility] Work Phone: RENAL FUNCTION PANELon 08-02 Albumin [Mass/Vol] 3.8 g/dL Normal 3.4 - 5.0 [facility] Comment on above: Performed By: #### R ENAL ####[id number] [place] [address] Anion gap [Moles/Vol] 15 mmol/L Normal 10 - 20 [facility] Comment on above: Performed By: #### R ENAL ####[id number] [place] [address] Calcium [Mass/Vol] 9.2 mg/dL Normal 8.6 - 10.6 [facility] Comment on above: Performed By: #### R ENAL ####[id number] [place] [address] Chloride [Moles/Vol] 99 mmol/L Normal 98 - 107 [facility] Comment on above: Performed By: #### R ENAL ####[id number] [place] [address] Creatinine [Mass/Vol] 1.64 mg/dL High 0.50 - 1.05 [facility] Comment on above: Performed By: #### R ENAL ####[id number] [place] [address] GFR/1.73 sq M.predicted among non-blacks MDRD (S/P/Bld) [Vol rate/Area] 35 mL/min/{1.73_m2} Abnormal >90 [facility] Comment on above: Result Comment: CALC ULATIONS OF ESTIMATED GFR ARE PERFORMED USING THE 2020 CKD-EPI STUDY REFIT EQUATION WITHOUT THE RACE VARIABLE FOR THE IDMS-TRACEABLE CREATININE METHODS.https://jasn.asnjournals.org/content// ASN.4885432350 Performed By: #### R ENAL ####[id number] [place] [address] Glucose [Mass/Vol] 140 mg/dL High 74 - 99 [facility] Comment on above: Performed By: #### R ENAL ####[id number] [place] [address] HCO3 (Bld) [Moles/Vol] 24 mmol/L Normal 21 - 32 [facility] Comment on above: Performed By: #### R ENAL ####[id number] [place] [address] Phosphate [Mass/Vol] 4.7 mg/dL Normal 2.5 - 4.9 [facility] Comment on above: Result Comment: The performance characteristics of phosphorus testing in heparinized plasma have been validated by the individual laboratory site where testing is performed. Testing on heparinized plasma is not approved by the FDA; however, such approval is not necessary. Performed By: #### R ENAL ####[id number] [place] [address] Potassium [Moles/Vol] 4.0 mmol/L Normal 3.5 - 5.3 [facility] Comment on above: Performed By: #### R ENAL ####[id number] [place] [address] Sodium [Moles/Vol] 134 mmol/L Low 136 - 145 [facility] Comment on above: Performed By: #### R ENAL ####[id number] [place] [address] Urea nitrogen [Mass/Vol] 45 mg/dL High 6 - 23 [facility] Comment on above: Performed By: #### R ENAL ####[id number] [place] [address] ALBUMIN Canceled Normal [facility] Comment on above: Order Comment: TEST RENAL FUNCTION PANEL WAS CANCELLED, 08/02/2022 02:14 NO SPECIMENRECEIVED IN LAB. Performed By: #### R ENAL ####[id number] [place] [address] ANION GAP Canceled Normal [facility] Comment on above: Order Comment: TEST RENAL FUNCTION PANEL WAS CANCELLED, 08/02/2022 02:14 NO SPECIMENRECEIVED IN LAB. Performed By: #### R ENAL ####[id number] [place] [address] BICARBONATE Canceled Normal [facility] Comment on above: Order Comment: TEST RENAL FUNCTION PANEL WAS CANCELLED, 08/02/2022 02:14 NO SPECIMENRECEIVED IN LAB. Performed By: #### R ENAL ####[id number] [place] [address] CALCIUM Canceled Normal [facility] Comment on above: Order Comment: TEST RENAL FUNCTION PANEL WAS CANCELLED, 08/02/2022 02:14 NO SPECIMENRECEIVED IN LAB. Performed By: #### R ENAL ####[id number] [place] [address] CHLORIDE Canceled Normal [facility] Comment on above: Order Comment: TEST RENAL FUNCTION PANEL WAS CANCELLED, 08/02/2022 02:14 NO SPECIMENRECEIVED IN LAB. Performed By: #### R ENAL ####[id number] [place] [address] CREATININE Canceled Normal [facility] Comment on above: Order Comment: TEST RENAL FUNCTION PANEL WAS CANCELLED, 08/02/2022 02:14 NO SPECIMENRECEIVED IN LAB. Performed By: #### R ENAL ####[id number] [place] [address] eGFR FEMALE Canceled Normal [facility] Comment on above: Order Comment: TEST RENAL FUNCTION PANEL WAS CANCELLED, 08/02/2022 02:14 NO SPECIMENRECEIVED IN LAB. Result Comment: CALC ULATIONS OF ESTIMATED GFR ARE PERFORMED USING THE 2020 CKD-EPI STUDY REFIT EQUATION WITHOUT THE RACE VARIABLE FOR THE IDMS-TRACEABLE CREATININE METHODS.https://jasn.asnjournals.org/content/early/ ASN.5954664528 Performed By: #### R ENAL ####[id number] [place] [address] eGFR MALE Canceled Normal [facility] Comment on above: Order Comment: TEST RENAL FUNCTION PANEL WAS CANCELLED, 08/02/2022 02:14 NO SPECIMENRECEIVED IN LAB. Result Comment: CALC ULATIONS OF ESTIMATED GFR ARE PERFORMED USING THE 2020 CKD-EPI STUDY REFIT EQUATION WITHOUT THE RACE VARIABLE FOR THE IDMS-TRACEABLE CREATININE METHODS.https://jasn.asnjournals.org/content/early/ ASN.2760522680 Performed By: #### R ENAL ####[id number] [place] [address] GLUCOSE Canceled Normal [facility] Comment on above: Order Comment: TEST RENAL FUNCTION PANEL WAS CANCELLED, 08/02/2022 02:14 NO SPECIMENRECEIVED IN LAB. Performed By: #### R ENAL ####[id number] [place] [address] PHOSPHORUS Canceled Normal [facility] Comment on above: Order Comment: TEST RENAL FUNCTION PANEL WAS CANCELLED, 08/02/2022 02:14 NO SPECIMENRECEIVED IN LAB. Result Comment: The performance characteristics of phosphorus testing in heparinized plasma have been validated by the individual laboratory site where testing is performed. Testing on heparinized plasma is not approved by the FDA; however, such approval is not necessary. Performed By: #### R ENAL ####[id number] [place] [address] POTASSIUM Canceled Normal [facility] Comment on above: Order Comment: TEST RENAL FUNCTION PANEL WAS CANCELLED, 08/02/2022 02:14 NO SPECIMENRECEIVED IN LAB. Performed By: #### R ENAL ####[id number] [place] [address] SODIUM Canceled Normal [facility] Comment on above: Order Comment: TEST RENAL FUNCTION PANEL WAS CANCELLED, 08/02/2022 02:14 NO SPECIMENRECEIVED IN LAB. Performed By: #### R ENAL ####[id number] [place] [address] UREA NITROGEN Canceled Normal [facility] Comment on above: Order Comment: TEST RENAL FUNCTION PANEL WAS CANCELLED, 08/02/2022 02:14 NO SPECIMENRECEIVED IN LAB. Performed By: #### R ENAL ####[id number] [place] [address] Rehab Note-individual therap yon 08-02-2022 Rehab Note-individual therapy Normal [facility] Renal Function Panelon 08-02 Albumin BCP dye [Mass/Vol] 3.8 g/dL 3.4 - 5.0 [facility]-Gastroen terology-Too lwell 6 [facility] Work Phone: Calcium [Mass/Vol] 9.2 mg/dL 8.6 - 10.6 MG-Gas troen terology-Too lwell 6 I Work Phone: Chloride [Moles/Vol] 99 mmol/L 98 - 107 MG-G astroen terology-Too lwell 6 I Work Phone: CO2 [Moles/Vol] 24 mmol/L 21 - 32 MG-Gastro en terology-Too lwell 6 I Work Phone: Creatinine [Mass/Vol] 1.64 mg/dL above high threshold See Below [facility]-Gastroen terology-Too lwell 6 [facility] Work Phone: Comment on above: Reference Range: 0.5 0 - 1.05 Glucose [Mass/Vol] 140 mg/dL above high threshold 74 - 99 MG-Gastroen terology-Too lwell 6 [facility] Work Phone: Phosphate [Mass/Vol] 4.7 mg/dL 2.5 - 4.9 MG-G astroen terology-Too lwell 6 I Work Phone: Comment on above: The performance juan a acteristics of phosphorus testing in heparinized plasma have been validated by the individual laboratory site where testing is performed. Testing on heparinized plasma is not approved by the FDA; however, such approval is not necessary. Potassium [Moles/Vol] 4.0 mmol/L 3.5 - 5.3 MG- Gastroen terology-Too lwell 6 [facility] Work Phone: Sodium [Moles/Vol] 134 mmol/L below low threshold 136 - 145 MG-Gastroen terology-Too lwell 6 I Work Phone: Urea nitrogen [Mass/Vol] 45 mg/dL above high threshold 6 - 23 [facility]-Gastroen terology-Too lwell 6 [facility] Work Phone: Renal Function Panel 15 mmol/L 10 - 20 MG-G astroen terology-Too lwell 6 I Work Phone: Renal Function Panel 35 {mL/min/1.73m2} Abnormal >90 [facility]-Gastroen terology-Too lwell 6 I Work Phone: Comment on above: CALCULATIONS OF LASHAWN MATED GFR ARE PERFORMED USING THE 2020 CKD-EPI STUDY REFIT EQUATION WITHOUT THE RACE VARIABLE FOR THE IDMS-TRACEABLE CREATININE METHODS.https://jasn.asnjournals.org/content// ASN.3230384334 Daily Progress Note-Cardiolo gyon 08-01-2022 Daily Progress Note-Cardiology Normal [facility] Daily Progress Note-Endocrin ologyon 08-01-2022 Daily Progress Note-Endocrinology Normal [facility] GLUCOSE-POCTon 08-01-2022 Glucose [Mass/Vol] 103 mg/dL High 74 - 99 [facility] Comment on above: Performed By: #### G MANJULA ####[id number] [place] [address] Glucose [Mass/Vol] 217 mg/dL High 74 - 99 [facility] Comment on above: Performed By: #### G MANJULA ####[id number] [place] [address] Glucose [Mass/Vol] 132 mg/dL High 74 - 99 [facility] Comment on above: Performed By: #### G MANJULA ####[id number] [place] [address] MAGNESIUMon 08-01-2022 Magnesium [Mass/Vol] 1.64 mg/dL Normal 1.60 - 2.40 [facility] Comment on above: Performed By: #### M G ####[id number] [place] [address] No Panel Informationon 08-01 103 mg/dL above high threshold 74 - 99 MG-Gastroen terology-Too lwell 6 [facility] Work Phone: 217 mg/dL above high threshold 74 - 99 MG-Gastroen terology-Too lwell 6 [facility] Work Phone: 132 mg/dL above high threshold 74 - 99 MG-Gastroen terology-Too lwell 6 [facility] Work Phone: RENAL FUNCTION PANELon 08-01 Albumin [Mass/Vol] 3.4 g/dL Normal 3.4 - 5.0 [facility] Comment on above: Performed By: #### R ENAL ####[id number] [place] [address] Anion gap [Moles/Vol] 13 mmol/L Normal - 20 [facility] Comment on above: Performed By: #### R ENAL ####[id number] [place] [address] Calcium [Mass/Vol] 8.8 mg/dL Normal 8.6 - 10.6 [facility] Comment on above: Performed By: #### R ENAL ####[id number] [place] [address] Chloride [Moles/Vol] 103 mmol/L Normal 98 - 107 [facility] Comment on above: Performed By: #### R ENAL ####[id number] [place] [address] Creatinine [Mass/Vol] 1.92 mg/dL High 0.50 - 1.05 [facility] Comment on above: Performed By: #### R ENAL ####[id number] [place] [address] GFR/1.73 sq M.predicted among non-blacks MDRD (S/P/Bld) [Vol rate/Area] 29 mL/min/{1.73_m2} Abnormal >90 [facility] Comment on above: Result Comment: CALC ULATIONS OF ESTIMATED GFR ARE PERFORMED USING THE 2020 CKD-EPI STUDY REFIT EQUATION WITHOUT THE RACE VARIABLE FOR THE IDMS-TRACEABLE CREATININE METHODS.https://jasn.asnjournals.org/content// ASN.2662229806 Performed By: #### R ENAL ####[id number] [place] [address] Glucose [Mass/Vol] 135 mg/dL High 74 - 99 [facility] Comment on above: Performed By: #### R ENAL ####[id number] [place] [address] HCO3 (Bld) [Moles/Vol] 23 mmol/L Normal 21 - 32 [facility] Comment on above: Performed By: #### R ENAL ####[id number] [place] [address] Phosphate [Mass/Vol] 5.3 mg/dL High 2.5 - 4.9 [facility] Comment on above: Result Comment: The performance characteristics of phosphorus testing in heparinized plasma have been validated by the individual laboratory site where testing is performed. Testing on heparinized plasma is not approved by the FDA; however, such approval is not necessary. Performed By: #### R ENAL ####[id number] [place] [address] Potassium [Moles/Vol] 4.2 mmol/L Normal 3.5 - 5.3 [facility] Comment on above: Performed By: #### R ENAL ####[id number] [place] [address] Sodium [Moles/Vol] 135 mmol/L Low 136 - 145 [facility] Comment on above: Performed By: #### R ENAL ####[id number] [place] [address] Urea nitrogen [Mass/Vol] 44 mg/dL High 6 - 23 [facility] Comment on above: Performed By: #### R ENAL ####[id number] [place] [address] Rehab Note-physical therapyo n 08-01-2022 Rehab Note-physical therapy Normal [facility] CBCon 07-31-2022 Erythrocyte distribution width (RBC) [Ratio] 16.8 % High 11.5 - 14.5 [facility] Comment on above: Performed By: #### C BC ####[id number] [place] [address] Hematocrit (Bld) [Volume fraction] 34.7 % Low 36.0 - 46.0 [facility] Comment on above: Performed By: #### C BC ####[id number] [place] [address] Hemoglobin (Bld) [Mass/Vol] 10.5 g/dL Low 12.0 - 16.0 [facility] Comment on above: Performed By: #### C BC ####[id number] [place] [address] MCHC (RBC) [Mass/Vol] 30.3 g/dL Low 32.0 - 36.0 [facility] Comment on above: Performed By: #### C BC ####[id number] [place] [address] MCV (RBC) [Entitic vol] 95 fL Normal 80 - 100 [facility] Comment on above: Performed By: #### C BC ####[id number] [place] [address] NUCLEATED RBC 0.0 /100 WBC Normal 0.0-0.0 [facility] Comment on above: Performed By: #### C BC ####[id number] [place] [address] Platelets (Bld) [#/Vol] 538 10*3/uL High 150 - 450 [facility] Comment on above: Performed By: #### C BC ####[id number] [place] [address] RBC 3.67 x10E12/L Low 4.00 - 5.20 [facility] Comment on above: Performed By: #### C BC ####[id number] [place] [address] WBC (Bld) [#/Vol] 8.7 10*3/uL Normal 4.4 - 11.3 [facility] Comment on above: Performed By: #### C BC ####[id number] [place] [address] Erythrocyte distribution width (RBC) [Ratio] 16.7 % High 11.5 - 14.5 [facility] Comment on above: Performed By: #### C BC ####[id number] [place] [address] Hematocrit (Bld) [Volume fraction] 35.0 % Low 36.0 - 46.0 [facility] Comment on above: Performed By: #### C BC ####[id number] [place] [address] Hemoglobin (Bld) [Mass/Vol] 10.3 g/dL Low 12.0 - 16.0 [facility] Comment on above: Performed By: #### C BC ####[id number] [place] [address] MCHC (RBC) [Mass/Vol] 29.4 g/dL Low 32.0 - 36.0 [facility] Comment on above: Performed By: #### C BC ####[id number] [place] [address] MCV (RBC) [Entitic vol] 98 fL Normal 80 - 100 [facility] Comment on above: Performed By: #### C BC ####[id number] [place] [address] NUCLEATED RBC 0.0 /100 WBC Normal 0.0-0.0 [facility] Comment on above: Performed By: #### C BC ####[id number] [place] [address] Platelets (Bld) [#/Vol] 501 10*3/uL High 150 - 450 [facility] Comment on above: Performed By: #### C BC ####[id number] [place] [address] RBC 3.56 x10E12/L Low 4.00 - 5.20 [facility] Comment on above: Performed By: #### C BC ####[id number] [place] [address] WBC (Bld) [#/Vol] 10.0 10*3/uL Normal 4.4 - 11.3 [facility] Comment on above: Performed By: #### C BC ####[id number] [place] [address] Cult, Urineon 07-31-2022 Bacteria identified Cx Nom (U) MG-Gastroen terology-Too lopez 6 [facility] Work Phone: Daily Progress Note-Cardiolo gyon 07-31-2022 Daily Progress Note-Cardiology Normal [facility] Daily Progress Note-Endocrin ologyon 07-31-2022 Daily Progress Note-Endocrinology Normal [facility] GLUCOSE-POCTon 07-31-2022 Glucose [Mass/Vol] 131 mg/dL High 74 - 99 [facility] Comment on above: Performed By: #### G MANJULA ####[id number] [place] [address] Glucose [Mass/Vol] 117 mg/dL High 74 - 99 [facility] Comment on above: Performed By: #### G MANJULA ####[id number] [place] [address] Glucose [Mass/Vol] 172 mg/dL High 74 - 99 [facility] Comment on above: Performed By: #### G MANJULA ####[id number] [place] [address] Glucose [Mass/Vol] 92 mg/dL Normal 74 - 99 [facility] Comment on above: Performed By: #### G MANJULA ####[id number] [place] [address] Laboratory - Hematology and Cell countson 07-31-2022 Hematocrit (Bld) [Volume fraction] 34.7 % below low threshold See Below MG-Gastroen terology-Too lwell 6 [facility] Work Phone: Comment on above: Reference Range: 36. 0 - 46.0 Hemoglobin (Bld) [Mass/Vol] 10.5 g/dL below low threshold See Below MG-Gastroen terology-Too lwell 6 [facility] Work Phone: Comment on above: Reference Range: 12. 0 - 16.0 Platelets (Bld) [#/Vol] 538 10*3/uL above hi gh threshold 150 - 450 MG-Gastroen terology-Too lwell 6 [facility] Work Phone: RBC (Bld) [#/Vol] 3.67 {x10E12/L} below low threshold See Below MG-Gastroen terology-Too lwell 6 [facility] Work Phone: Comment on above: Reference Range: 4.0 0 - 5.20 Magnesium, Serumon Magnesium [Mass/Vol] 1.64 mg/dL See Below MG-G astroen terology-Too lwell 6 [facility] Work Phone: Comment on above: Reference Range: 1.6 0 - 2.40 No Panel Informationon 07-31 131 mg/dL above high threshold 74 - 99 MG-Gastroen terology-Too lwell 6 I Work Phone: 16.8 % above high threshold See Below MG-Gastroen terology-Too lwell 6 [facility] Work Phone: Comment on above: Reference Range: 11. 5 - 14.5 30.3 g/dL below low threshold See Below MG-Gastroen terology-Too lwell 6 [facility] Work Phone: Comment on above: Reference Range: 32. 0 - 36.0 95 fL 80 - 100 MG-Gastroen terology-Too lwell 6 [facility] Work Phone: 0.0 {/100_WBC} 0.0-0.0 MG-Gastroe n terology-Too lwell 6 [facility] Work Phone: 8.7 {x10E9/L} 4.4 - 11.3 MG-Gastroen terology-Too lwell 6 [facility] Work Phone: 117 mg/dL above high threshold 74 - 99 MG-Gastroen terology-Too lwell 6 [facility] Work Phone: 172 mg/dL above high threshold 74 - 99 MG-Gastroen terology-Too lwell 6 [facility] Work Phone: 92 mg/dL 74 - 99 MG-Gastroen terology-Too lwell 6 [facility] Work Phone: RENAL FUNCTION PANELon 07-31 Albumin [Mass/Vol] 3.5 g/dL Normal 3.4 - 5.0 [facility] Comment on above: Performed By: #### R ENAL ####[id number] [place] [address] Anion gap [Moles/Vol] 16 mmol/L Normal 10 - 20 [facility] Comment on above: Performed By: #### R ENAL ####[id number] [place] [address] Calcium [Mass/Vol] 9.1 mg/dL Normal 8.6 - 10.6 [facility] Comment on above: Performed By: #### R ENAL ####[id number] [place] [address] Chloride [Moles/Vol] 100 mmol/L Normal 98 - 107 [facility] Comment on above: Performed By: #### R ENAL ####[id number] [place] [address] Creatinine [Mass/Vol] 1.89 mg/dL High 0.50 - 1.05 [facility] Comment on above: Performed By: #### R ENAL ####[id number] [place] [address] GFR/1.73 sq M.predicted among non-blacks MDRD (S/P/Bld) [Vol rate/Area] 30 mL/min/{1.73_m2} Abnormal >90 [facility] Comment on above: Result Comment: CALC ULATIONS OF ESTIMATED GFR ARE PERFORMED USING THE 2020 CKD-EPI STUDY REFIT EQUATION WITHOUT THE RACE VARIABLE FOR THE IDMS-TRACEABLE CREATININE METHODS.https://jasn.asnjournals.org/content/early/ ASN.7935796823 Performed By: #### R ENAL ####[id number] [place] [address] Glucose [Mass/Vol] 123 mg/dL High 74 - 99 [facility] Comment on above: Performed By: #### R ENAL ####[id number] [place] [address] HCO3 (Bld) [Moles/Vol] 24 mmol/L Normal 21 - 32 [facility] Comment on above: Performed By: #### R ENAL ####[id number] [place] [address] Phosphate [Mass/Vol] 5.8 mg/dL High 2.5 - 4.9 [facility] Comment on above: Result Comment: The performance characteristics of phosphorus testing in heparinized plasma have been validated by the individual laboratory site where testing is performed. Testing on heparinized plasma is not approved by the FDA; however, such approval is not necessary. Performed By: #### R ENAL ####[id number] [place] [address] Potassium [Moles/Vol] 4.3 mmol/L Normal 3.5 - 5.3 [facility] Comment on above: Performed By: #### R ENAL ####[id number] [place] [address] Sodium [Moles/Vol] 136 mmol/L Normal 136 - 145 [facility] Comment on above: Performed By: #### R ENAL ####[id number] [place] [address] Urea nitrogen [Mass/Vol] 44 mg/dL High 6 - 23 [facility] Comment on above: Performed By: #### R ENAL ####[id number] [place] [address] Radiologyon 07-31-2022 XR Chest 2 Views Normal [facility]-Gastr oen terology-Too lwell 6 I Work Phone: Renal Function Panelon 07-31 Albumin BCP dye [Mass/Vol] 3.4 g/dL 3.4 - 5.0 MG-Gastroen terology-Too lwell 6 [facility] Work Phone: Calcium [Mass/Vol] 8.8 mg/dL 8.6 - 10.6 MG-Gas troen terology-Too lwell 6 [facility] Work Phone: Chloride [Moles/Vol] 103 mmol/L 98 - 107 MG-G astroen terology-Too lwell 6 [facility] Work Phone: CO2 [Moles/Vol] 23 mmol/L 21 - 32 MG-Gastro en terology-Too lwell 6 [facility] Work Phone: Creatinine [Mass/Vol] 1.92 mg/dL above high threshold See Below MG-Gastroen terology-Too lwell 6 [facility] Work Phone: Comment on above: Reference Range: 0.5 0 - 1.05 Glucose [Mass/Vol] 135 mg/dL above high threshold 74 - 99 MG-Gastroen terology-Too lwell 6 [facility] Work Phone: Phosphate [Mass/Vol] 5.3 mg/dL above high threshold 2.5 - 4.9 MG-Gastroen terology-Too lwell 6 [facility] Work Phone: Comment on above: The performance juan a acteristics of phosphorus testing in heparinized plasma have been validated by the individual laboratory site where testing is performed. Testing on heparinized plasma is not approved by the FDA; however, such approval is not necessary. Potassium [Moles/Vol] 4.2 mmol/L 3.5 - 5.3 MG- Gastroen terology-Too lwell 6 [facility] Work Phone: Sodium [Moles/Vol] 135 mmol/L below low threshold 136 - 145 MG-Gastroen terology-Too lwell 6 [facility] Work Phone: Urea nitrogen [Mass/Vol] 44 mg/dL above high threshold 6 - 23 MG-Gastroen terology-Too lwell 6 [facility] Work Phone: Renal Function Panel 29 {mL/min/1.73m2} Abnormal >90 MG-Gastroen terology-Too lwell 6 [facility] Work Phone: Comment on above: CALCULATIONS OF LASHAWN MATED GFR ARE PERFORMED USING THE 2020 CKD-EPI STUDY REFIT EQUATION WITHOUT THE RACE VARIABLE FOR THE IDMS-TRACEABLE CREATININE METHODS.https://jasn.asnjournals.org/content// ASN.0206807100 Renal Function Panel 13 mmol/L 10 - 20 MG-G astroen terology-Too lwell 6 I Work Phone: TH CHEST 2 VIEW PA AND LATon 07-31-2022 TH CHEST 2 VIEW PA AND LAT Normal [facility] UA MICROSCOPICon 07-31-2022 BACTERIA 2+ /HPF Abnormal [facility] Comment on above: Performed By: #### U AMIC ####[id number] [place] [address] RBC 1 /HPF Normal 0-5 [facility] Comment on above: Performed By: #### U AMIC ####[id number] [place] [address] SQUAMOUS EPITH. CELLS 1 /HPF Normal [facility] Comment on above: Performed By: #### U AMIC ####[id number] [place] [address] TRANSITIONAL EPITH.CELLS <1 Normal [facility] Comment on above: Performed By: #### U AMIC ####[id number] [place] [address] WBC 1 /HPF Normal 0-5 [facility] Comment on above: Performed By: #### U AMIC ####[id number] [place] [address] URINALYSIS WITH CULTURE IF I NDICATEDon 07-31-2022 Appearance (U) CLEAR Normal CLEAR [facility] Comment on above: Performed By: #### U ARFX ####[id number] [place] [address] Bilirubin Ql (U) Negative Normal NEGATIVE [facility] Comment on above: Performed By: #### U ARFX ####[id number] [place] [address] Color (U) YELLOW Normal STRAW,YELL OW [facility] Comment on above: Performed By: #### U ARFX ####[id number] [place] [address] Glucose Ql (U) >=500 (3+) Abnormal NEGATIVE [facility] Comment on above: Performed By: #### U ARFX ####[id number] [place] [address] Hemoglobin Ql (U) Negative Normal NEGATIVE [facility] Comment on above: Performed By: #### U ARFX ####[id number] [place] [address] Ketones Ql (U) Negative Normal NEGATIVE [facility] Comment on above: Performed By: #### U ARFX ####[id number] [place] [address] Leukocyte esterase Test strip Ql (U) TRACE Abnormal NEGATIVE [facility] Comment on above: Performed By: #### U ARFX ####[id number] [place] [address] Nitrite Ql (U) Negative Normal NEGATIVE [facility] Comment on above: Performed By: #### U ARFX ####[id number] [place] [address] pH (U) 6.0 [pH] Normal 5.0 - 8.0 [facility] Comment on above: Performed By: #### U ARFX ####[id number] [place] [address] Protein Ql (U) Negative Normal NEGATIVE [facility] Comment on above: Performed By: #### U ARFX ####[id number] [place] [address] Specific gravity (U) [Rel density] 1.012 Normal 1.005 - 1.035 [facility] Comment on above: Performed By: #### U ARFX ####[id number] [place] [address] Urobilinogen (U) [Mass/Vol] mg/dL Normal 0.0 - 1.9 [facility] Comment on above: Performed By: #### U ARFX ####[id number] [place] [address] Protein (U) [Mass/Vol] Negative NEGATIVE [facility] -Gastroen terology-Too lwell 6 I Work Phone: RBC (U) [#/Vol] Negative NEGATIVE MG-Gastro en terology-Too lwell 6 I Work Phone: Specific gravity (U) [Rel density] 1.012 1 See Below MG-Gastroen terology-Too lwell 6 I Work Phone: Comment on above: Reference Range: 1.0 05 - 1.035 URINALYSIS WITH CULTURE IF INDICATED TRACE Abnormal NEGATIVE MG-Gastroen terology-Too lwell 6 I Work Phone: URINALYSIS WITH CULTURE IF INDICATED Negative NEGATIVE MG-Gastroen terology-Too lwell 6 I Work Phone: URINALYSIS WITH CULTURE IF INDICATED <2.0 0.0 - 1.9 [facility]-Gastroen terology-Too lwell 6 I Work Phone: URINALYSIS WITH CULTURE IF INDICATED >=500 (3+) Abnormal NEGATIVE [facility]-Gastroen terology-Too lwell 6 [facility] Work Phone: [phone] URINALYSIS WITH CULTURE IF INDICATED 6.0 1 5.0 - 8.0 MG-Gastroen terology-Too lwell 6 [facility] Work Phone: [phone] URINALYSIS WITH CULTURE IF INDICATED CLEAR CLEAR [facility]-Gastroen terology-Too lwell 6 [facility] Work Phone: [phone] URINALYSIS WITH CULTURE IF INDICATED YELLOW See Below MG-Gastroen terology-Too lwell 6 [facility] Work Phone: [phone] Comment on above: Reference Range: STR AW,YELLOW URINE CULTURE,BACTERIALon URINE CULTURE,BACTERIAL Normal U [facility] Comment on above: Performed By: #### U [facility] ####[id number] [place] [address] Urinalysis, Microscopicon Urinalysis, Microscopic 1 {/HPF} 0-5 M G-Gastroen terology-Too lwell 6 [facility] Work Phone: [phone] Urinalysis, Microscopic <1 M G-Gastroen terology-Too lwell 6 [facility] Work Phone: [phone] Urinalysis, Microscopic 2+ Abnormal M G-Gastroen terology-Too lwell 6 [facility] Work Phone: [phone] CBCon 07-30-2022 Erythrocyte distribution width (RBC) [Ratio] 17.0 % High 11.5 - 14.5 [facility] Comment on above: Performed By: #### C BC ####[id number] [place] [address] Hematocrit (Bld) [Volume fraction] 35.7 % Low 36.0 - 46.0 [facility] Comment on above: Performed By: #### C BC ####[id number] [place] [address] Hemoglobin (Bld) [Mass/Vol] 11.0 g/dL Low 12.0 - 16.0 [facility] Comment on above: Performed By: #### C BC ####[id number] [place] [address] MCHC (RBC) [Mass/Vol] 30.8 g/dL Low 32.0 - 36.0 [facility] Comment on above: Performed By: #### C BC ####[id number] [place] [address] MCV (RBC) [Entitic vol] 96 fL Normal 80 - 100 [facility] Comment on above: Performed By: #### C BC ####[id number] [place] [address] NUCLEATED RBC 0.0 /100 WBC Normal 0.0-0.0 [facility] Comment on above: Performed By: #### C BC ####[id number] [place] [address] Platelets (Bld) [#/Vol] 520 10*3/uL High 150 - 450 [facility] Comment on above: Performed By: #### C BC ####[id number] [place] [address] RBC 3.72 x10E12/L Low 4.00 - 5.20 [facility] Comment on above: Performed By: #### C BC ####[id number] [place] [address] WBC (Bld) [#/Vol] 13.2 10*3/uL High 4.4 - 11.3 [facility] Comment on above: Performed By: #### C BC ####[id number] [place] [address] Daily Progress Note-Cardiolo gyon 07-30-2022 Daily Progress Note-Cardiology Normal [facility] Daily Progress Note-Electrop hysiologyon 07-30-2022 Daily Progress Note-Electrophysiology Normal [facility] Daily Progress Note-Endocrin ologyon 07-30-2022 Daily Progress Note-Endocrinology Normal [facility] GLUCOSE-POCTon 07-30-2022 Glucose [Mass/Vol] 155 mg/dL High 74 - 99 [facility] Comment on above: Performed By: #### Guillermo FAIR ####[id number] [place] [address] Glucose [Mass/Vol] 121 mg/dL High 74 - 99 [facility] Comment on above: Performed By: #### G MANJULA ####[id number] [place] [address] Glucose [Mass/Vol] 103 mg/dL High 74 - 99 [facility] Comment on above: Performed By: #### G MANJULA ####[id number] [place] [address] Glucose [Mass/Vol] 116 mg/dL High 74 - 99 [facility] Comment on above: Performed By: #### G MANJULA ####[id number] [place] [address] Glucose [Mass/Vol] 71 mg/dL Low 74 - 99 [facility] Comment on above: Performed By: #### G MANJULA ####[id number] [place] [address] HEPARIN ASSAY,UFHon 07-30-20 HEPARIN ASSAY,UFH 0.3 IU/mL Normal [facility] Comment on above: Result Comment: The therapeutic reference range for UFH may be either 0.3-0.6 IU/mL or 0.3-0.7 IU/mL based on the clinical setting for anticoagulant therapy and the associated nomogram used. For heparin dosing guidelines based on clinical scenario and Heparin Assay results, please refer to local Pharmacy and the [facility] Guidelines for Anticoagulation therapy available on the [facility] intranet at:[email or web address]/Pages/[facility]_Guidelines_for_Anticoagu.aspx Performed By: #### H AUF ####[id number] [place] [address] HEPARIN ASSAY,UFH 0.6 IU/mL Normal [facility] Comment on above: Result Comment: The therapeutic reference range for UFH may be either 0.3-0.6 IU/mL or 0.3-0.7 IU/mL based on the clinical setting for anticoagulant therapy and the associated nomogram used. For heparin dosing guidelines based on clinical scenario and Heparin Assay results, please refer to local Pharmacy and [facility] Guidelines for Anticoagulation therapy available on the [facility] intranet at:[email or web address]/[email or web address]/Pages/[facility]_Guidelines_for_Anticoagu.aspx Performed By: #### H AUF ####[id number] [place] [address] HEPARIN ASSAY,UFH 0.6 IU/mL Normal [facility] Comment on above: Result Comment: The therapeutic reference range for UFH may be either 0.3-0.6 IU/mL or 0.3-0.7 IU/mL based on the clinical setting for anticoagulant therapy and the associated nomogram used. For heparin dosing guidelines based on clinical scenario and Heparin Assay results, please refer to local Pharmacy and [facility] Guidelines for Anticoagulation therapy available on the [facility] intranet at:[email or web address]/Pharmacy/Pages/[facility]_Guidelines_for_Anticoagu.aspx Performed By: #### H AUF ####[id number] [place] [address] HEPARIN ASSAY,UFH 0.8 IU/mL Normal [facility] Comment on above: Result Comment: The therapeutic reference range for UFH may be either 0.3-0.6 IU/mL or 0.3-0.7 IU/mL based on the clinical setting for anticoagulant therapy and the associated nomogram used. For heparin dosing guidelines based on clinical scenario and Heparin Assay results, please refer to local Pharmacy and [facility] Guidelines for Anticoagulation therapy available on the [facility] intranet at:[email or web address]/[email or web address]/Pages/[facility]_Guidelines_for_Anticoagu.aspx Performed By: #### H AUF ####[id number] [place] [address] Heparin assay, UFHon 07-30- 022 Heparin unfractionated Chromogenic method Qn (PPP) 0.3 {IU/mL} [facility]astro[facility]ology-[facility] [place] 6 [facility] Work Phone: Comment on above: The therapeutic refe rence range for UFH may be either 0.3-0.6 IU/mL or 0.3-0.7 IU/mL based on the clinical setting for anticoagulant therapy and the associated nomogram used. For heparin dosing guidelines based on clinical scenario and Heparin Assay results, please refer to local Pharmacy and [facility] Guidelines for Anticoagulation therapy available on the [facility] intranet at:[email or web address]/Pharmacy/Pages/[facility]_Guidelines_for_Anticoagu.aspx Heparin unfractionated Chromogenic method Qn (PPP) 0.6 {IU/mL} [facility]-Gastroen terology-[place] 6 [facility] Work Phone: Comment on above: The therapeutic refe rence range for UFH may be either 0.3-0.6 IU/mL or 0.3-0.7 IU/mL based on the clinical setting for anticoagulant therapy and the associated nomogram used. For heparin dosing guidelines based on clinical scenario and Heparin Assay results, please refer to [facility] Pharmacy and [facility] Guidelines for Anticoagulation therapy available on the [facility] intranet at:[email or web address]://[email or web address]/Pharmacy/Pages/[facility]_Guidelines_for_Anticoagu.aspx Heparin unfractionated Chromogenic method Qn (PPP) 0.6 {IU/mL} [facility]-Gastroen terology-Too lwell 6 [facility] Work Phone: Comment on above: The therapeutic refe rence range for UFH may be either 0.3-0.6 IU/mL or 0.3-0.7 IU/mL based on the clinical setting for anticoagulant therapy and the associated nomogram used. For heparin dosing guidelines based on clinical scenario and Heparin Assay results, please refer to [facility] Pharmacy and [facility] Guidelines for Anticoagulation therapy available on the [facility] intranet at:[email or web address]://[email or web address]/[email or web address]/Pages/[facility]_Guidelines_for_Anticoagu.aspx Heparin unfractionated Chromogenic method Qn (PPP) 0.8 {IU/mL} MG-Gastroen terology-Too lwell 6 [facility] Work Phone: Comment on above: The therapeutic refe rence range for UFH may be either 0.3-0.6 IU/mL or 0.3-0.7 IU/mL based on the clinical setting for anticoagulant therapy and the associated nomogram used. For heparin dosing guidelines based on clinical scenario and Heparin Assay results, please refer to local Pharmacy and the [facility] Guidelines for Anticoagulation therapy available on the [facility] intranet at:[email or web address]/Pages/[facility]_Guidelines_for_Anticoagu.aspx Laboratory - Hematology and Cell countson 07-30-2022 Hematocrit (Bld) [Volume fraction] 35.0 % below low threshold See Below [facility]ology-[place] [facility] 6 I Work Phone: Comment on above: Reference Range: 36. 0 - 46.0 Hemoglobin (Bld) [Mass/Vol] 10.3 g/dL below low threshold See Below [facility]astro[facility]ology-[place] 6 I Work Phone: Comment on above: Reference Range: 12. 0 - 16.0 Platelets (Bld) [#/Vol] 501 10*3/uL above hi gh threshold 150 - 450 [facility] 6 [facility] Work Phone: RBC (Bld) [#/Vol] 3.56 {x10E12/L} below low threshold See Below [facility] 6 I Work Phone: Comment on above: Reference Range: 4.0 0 - 5.20 Hematocrit (Bld) [Volume fraction] 35.7 % below low threshold See Below [facility]ology-[place] [facility] 6 I Work Phone: Comment on above: Reference Range: 36. 0 - 46.0 Hemoglobin (Bld) [Mass/Vol] 11.0 g/dL below low threshold See Below [facility]ology-[place] 6 I Work Phone: Comment on above: Reference Range: 12. 0 - 16.0 Platelets (Bld) [#/Vol] 520 10*3/uL above hi gh threshold 150 - 450 [facility]ology-[place] 6 [facility] Work Phone: RBC (Bld) [#/Vol] 3.72 {x10E12/L} below low threshold See Below [facility]-[place] 6 [facility] Work Phone: Comment on above: Reference Range: 4.0 0 - 5.20 No Panel Informationon 07-30 155 mg/dL above high threshold 74 - 99 [facility]-[place] 6 [facility] Work Phone: 16.7 % above high threshold See Below [facility]ology-[place] 6 [facility] Work Phone: Comment on above: Reference Range: 11. 5 - 14.5 29.4 g/dL below low threshold See Below [facility]-[place] [facility] 6 I Work Phone: Comment on above: Reference Range: 32. 0 - 36.0 98 fL 80 - 100 [facility] 6 I Work Phone: 0.0 {/100_WBC} 0.0-0.0 MG-Gastroe n terology-[place] [facility] 6 I Work Phone: 10.0 {x10E9/L} 4.4 - 11.3 [facility]-Gastroe n terology-[place] l[place] 6 I Work Phone: 121 mg/dL above high threshold 74 - 99 [facility]en [facility]ology-[place] [facility] 6 [facility] Work Phone: 103 mg/dL above high threshold 74 - 99 [facility]en [facility]ology-[place] 6 [facility] Work Phone: 116 mg/dL above high threshold 74 - 99 [facility]ology-[place] [facility] 6 [facility] Work Phone: 17.0 % above high threshold See Below [facility]ology-[place] 6 [facility] Work Phone: Comment on above: Reference Range: 11. 5 - 14.5 0.0 {/100_WBC} 0.0-0.0 [facility]-Gastroe n terology-[place] l[place] 6 [facility] Work Phone: 13.2 {x10E9/L} above high threshold 4.4 - 11.3 [facility]ology-[facility] 6 [facility] Work Phone: 30.8 g/dL below low threshold See Below [facility]ology-[place] 6 [facility] Work Phone: Comment on above: Reference Range: 32. 0 - 36.0 96 fL 80 - 100 [facility]ology-[place] [facility] 6 I Work Phone: Rehab Note-individual therap yon 07-30-2022 Rehab Note-individual therapy Normal [facility] Rehab Note-individual therapy Normal [facility] Renal Function Panelon 07-30 Albumin BCP dye [Mass/Vol] 3.5 g/dL 3.4 - 5.0 [facility]ology-[facility] 6 I Work Phone: Calcium [Mass/Vol] 9.1 mg/dL 8.6 - 10.6 MG-Gas troen terology-[place]well 6 I Work Phone: Chloride [Moles/Vol] 100 mmol/L 98 - 107 [facility]-G astroen terology-[place] l[place] 6 I Work Phone: CO2 [Moles/Vol] 24 mmol/L 21 - 32 [facility]astro en [facility]ology-[place] [facility] 6 [facility] Work Phone: Creatinine [Mass/Vol] 1.89 mg/dL above high threshold See Below [facility]-[place] 6 [facility] Work Phone: Comment on above: Reference Range: 0.5 0 - 1.05 Glucose [Mass/Vol] 123 mg/dL above high threshold 74 - 99 [facility]-[place] [facility] 6 [facility] Work Phone: Phosphate [Mass/Vol] 5.8 mg/dL above high threshold 2.5 - 4.9 [facility]ology-[facility] 6 I Work Phone: Comment on above: The performance juan a acteristics of phosphorus testing in heparinized plasma have been validated by the individual laboratory site where testing is performed. Testing on heparinized plasma is not approved by the FDA; however, such approval is not necessary. Potassium [Moles/Vol] 4.3 mmol/L 3.5 - 5.3 [facility]ology-[facility] 6 I Work Phone: Sodium [Moles/Vol] 136 mmol/L 136 - 145 [facility]Gas troen terology-[place] 6 I Work Phone: Urea nitrogen [Mass/Vol] 44 mg/dL above high threshold 6 - 23 [facility]ology-[place] [facility] 6 I Work Phone: Renal Function Panel 16 mmol/L 10 - 20 [facility]-G astroen terology-[place] 6 I Work Phone: Renal Function Panel 30 {mL/min/1.73m2} Abnormal >90 [facility]astroen [facility]ology-[place] [facility] 6 I Work Phone: Comment on above: CALCULATIONS OF LASHAWN MATED GFR ARE PERFORMED USING THE 2020 CKD-EPI STUDY REFIT EQUATION WITHOUT THE RACE VARIABLE FOR THE IDMS-TRACEABLE CREATININE METHODS.https://jasn.asnjournals.org/content// ASN.9295248909 CBCon 07-29-2022 Erythrocyte distribution width (RBC) [Ratio] 16.8 % High 11.5 - 14.5 [facility] Comment on above: Performed By: #### C BC ####[id number] [place] [address] Hematocrit (Bld) [Volume fraction] 36.0 % Normal 36.0 - 46.0 [facility] Comment on above: Performed By: #### C BC ####[id number] [place] [address] Hemoglobin (Bld) [Mass/Vol] 10.9 g/dL Low 12.0 - 16.0 [facility] Comment on above: Performed By: #### C BC ####[id number] [place] [address] MCHC (RBC) [Mass/Vol] 30.3 g/dL Low 32.0 - 36.0 [facility] Comment on above: Performed By: #### C BC ####[id number] [place] [address] MCV (RBC) [Entitic vol] 95 fL Normal 80 - 100 U [facility] Comment on above: Performed By: #### C BC ####[id number] [place] [address] NUCLEATED RBC 0.0 /100 WBC Normal 0.0-0.0 [facility] Comment on above: Performed By: #### C BC ####[id number] [place] [address] Platelets (Bld) [#/Vol] 529 10*3/uL High 150 - 450 [facility] Comment on above: Performed By: #### C BC ####[id number] [place] [address] RBC 3.77 x10E12/L Low 4.00 - 5.20 [facility] Comment on above: Performed By: #### C BC ####[id number] [place] [address] WBC (Bld) [#/Vol] 13.6 10*3/uL High 4.4 - 11.3 [facility] Comment on above: Performed By: #### C BC ####[id number] [place] [address] Clinical Event Note-Structur al Fellow Note.on 07-29-2022 Clinical Event Note-Structural Fellow Note. Normal [facility] Clinical Event Note-endocrin ology recs - no insulin changeson 07-29-2022 Clinical Event Note-endocrinology recs - no insulin changes Normal [facility] Daily Progress Note - Psychi atryon 07-29-2022 Daily Progress Note - Psychiatry Normal [facility] Daily Progress Note-Cardiolo gyon 07-29-2022 Daily Progress Note-Cardiology Normal [facility] GLUCOSE-POCTon 07-29-2022 Glucose [Mass/Vol] 162 mg/dL High 74 - 99 [facility] Comment on above: Performed By: #### G MANJULA ####[id number] [place] [address] Glucose [Mass/Vol] 153 mg/dL High 74 - 99 [facility] Comment on above: Performed By: #### G MANJULA ####[id number] [place] [address] Glucose [Mass/Vol] 125 mg/dL High 74 - 99 [facility] Comment on above: Performed By: #### G MANJULA ####[id number] [place] [address] HEPARIN ASSAY,UFHon 07-29-20 22 HEPARIN ASSAY,UFH 0.2 IU/mL Normal [facility] Comment on above: Result Comment: The therapeutic reference range for UFH may be either 0.3-0.6 IU/mL or 0.3-0.7 IU/mL based on the clinical setting for anticoagulant therapy and the associated nomogram used. For heparin dosing guidelines based on clinical scenario and Heparin Assay results, please refer to local Pharmacy and the [facility] Guidelines for Anticoagulation therapy available on the [facility] intranet at:[email or web address]/Pharmacy/Pages/[facility]_Guidelines_for_Anticoagu.aspx Performed By: #### H AUF ####[id number] [place] [address] Heparin assay, UFHon 022 Heparin unfractionated Chromogenic method Qn (PPP) 0.2 {IU/mL} [facility] 6 I Work Phone: Comment on above: The therapeutic refe rence range for UFH may be either 0.3-0.6 IU/mL or 0.3-0.7 IU/mL based on the clinical setting for anticoagulant therapy and the associated nomogram used. For heparin dosing guidelines based on clinical scenario and Heparin Assay results, please refer to local Pharmacy and the [facility] Guidelines for Anticoagulation therapy available on the [facility] intranet at:[email or web address]/Pages/[facility]_Guidelines_for_Anticoagu.aspx Laboratory - Hematology and Cell countson 07-29-2022 Hematocrit (Bld) [Volume fraction] 36.0 % See Below [facility]ology-[facility] 6 [facility] Work Phone: Comment on above: Reference Range: 36. 0 - 46.0 Hemoglobin (Bld) [Mass/Vol] 10.9 g/dL below low threshold See Below [facility]ology-[facility] 6 [facility] Work Phone: Comment on above: Reference Range: 12. 0 - 16.0 Platelets (Bld) [#/Vol] 529 10*3/uL above hi gh threshold 150 - 450 [facility] 6 [facility] Work Phone: RBC (Bld) [#/Vol] 3.77 {x10E12/L} below low threshold See Below [facility]-[place] [facility] 6 [facility] Work Phone: Comment on above: Reference Range: 4.0 0 - 5.20 No Panel Informationon 07-29 71 mg/dL below low threshold 74 - 99 [facility]-[place] [facility] 6 [facility] Work Phone: 0.0 {/100_WBC} 0.0-0.0 MG-Gastroe n terology-[place] 6 [facility] Work Phone: 13.6 {x10E9/L} above high threshold 4.4 - 11.3 [facility]ology-[place] [facility] 6 [facility] Work Phone: 16.8 % above high threshold See Below [facility]ology-[place] 6 [facility] Work Phone: Comment on above: Reference Range: 11. 5 - 14.5 30.3 g/dL below low threshold See Below [facility]-[place] 6 [facility] Work Phone: Comment on above: Reference Range: 32. 0 - 36.0 95 fL 80 - 100 [facility]ology-[place] [facility] 6 [facility] Work Phone: 162 mg/dL above high threshold 74 - 99 [facility]-[place] [facility] 6 [facility] Work Phone: 153 mg/dL above high threshold 74 - 99 [facility]-[place] [facility] 6 [facility] Work Phone: 125 mg/dL above high threshold 74 - 99 [facility]ology-[facility] 6 I Work Phone: RENAL FUNCTION PANELon 07-29 Albumin [Mass/Vol] 3.6 g/dL Normal 3.4 - 5.0 [facility] Comment on above: Performed By: #### R ENAL ####[id number] [place] [address] Anion gap [Moles/Vol] 15 mmol/L Normal 10 - 20 [facility] Comment on above: Performed By: #### R ENAL ####[id number] [place] [address] Calcium [Mass/Vol] 8.9 mg/dL Normal 8.6 - 10.6 [facility] Comment on above: Performed By: #### R ENAL ####[id number] [place] [address] Chloride [Moles/Vol] 98 mmol/L Normal 98 - 107 [facility] Comment on above: Performed By: #### R ENAL ####[id number] [place] [address] Creatinine [Mass/Vol] 1.69 mg/dL High 0.50 - 1.05 [facility] Comment on above: Performed By: #### R ENAL ####[id number] [place] [address] GFR/1.73 sq M.predicted among non-blacks MDRD (S/P/Bld) [Vol rate/Area] 34 mL/min/{1.73_m2} Abnormal >90 [facility] Comment on above: Result Comment: CALC ULATIONS OF ESTIMATED GFR ARE PERFORMED USING THE 2020 CKD-EPI STUDY REFIT EQUATION WITHOUT THE RACE VARIABLE FOR THE IDMS-TRACEABLE CREATININE METHODS.https://jasn.asnjournals.org/content// ASN.5818626403 Performed By: #### R ENAL ####[id number] [place] [address] Glucose [Mass/Vol] 84 mg/dL Normal 74 - 99 [facility] Comment on above: Performed By: #### R ENAL ####[id number] [place] [address] HCO3 (Bld) [Moles/Vol] 26 mmol/L Normal 21 - 32 [facility] Comment on above: Performed By: #### R ENAL ####[id number] [place] [address] Phosphate [Mass/Vol] 5.8 mg/dL High 2.5 - 4.9 [facility] Comment on above: Result Comment: The performance characteristics of phosphorus testing in heparinized plasma have been validated by the individual laboratory site where testing is performed. Testing on heparinized plasma is not approved by the FDA; however, such approval is not necessary. Performed By: #### R ENAL ####[id number] [place] [address] Potassium [Moles/Vol] 4.8 mmol/L Normal 3.5 - 5.3 [facility] Comment on above: Performed By: #### R ENAL ####[id number] [place] [address] Sodium [Moles/Vol] 134 mmol/L Low 136 - 145 [facility] Comment on above: Performed By: #### R ENAL ####[id number] [place] [address] Urea nitrogen [Mass/Vol] 38 mg/dL High 6 - 23 [facility] Comment on above: Performed By: #### R ENAL ####[id number] [address] Rehab Note-attemptedon 07-29 Rehab Note-attempted Normal [facility] Renal Function Panelon 07-29 Albumin BCP dye [Mass/Vol] 3.6 g/dL 3.4 - 5.0 [facility] 6 [facility] Work Phone: Calcium [Mass/Vol] 8.9 mg/dL 8.6 - 10.6 [facility] troen [facility]ology-[place] 6 [facility] Work Phone: Chloride [Moles/Vol] 98 mmol/L 98 - 107 [facility]-G astroen terology-[place] 6 [facility] Work Phone: CO2 [Moles/Vol] 26 mmol/L 21 - 32 [facility] en [facility]ology-[place] [facility] 6 [facility] Work Phone: Creatinine [Mass/Vol] 1.69 mg/dL above high threshold See Below [facility] 6 [facility] Work Phone: Comment on above: Reference Range: 0.5 0 - 1.05 Glucose [Mass/Vol] 84 mg/dL 74 - 99 [facility]-Gas troen [facility]ology-[place] [facility] 6 I Work Phone: Phosphate [Mass/Vol] 5.8 mg/dL above high threshold 2.5 - 4.9 [facility]ology-[facility] 6 I Work Phone: Comment on above: The performance juan a acteristics of phosphorus testing in heparinized plasma have been validated by the individual laboratory site where testing is performed. Testing on heparinized plasma is not approved by the FDA; however, such approval is not necessary. Potassium [Moles/Vol] 4.8 mmol/L 3.5 - 5.3 [facility]- [facility]astroen [facility]ology-[place] [facility] 6 [facility] Work Phone: Sodium [Moles/Vol] 134 mmol/L below low threshold 136 - 145 [facility]en [facility]ology-[place] [facility] 6 [facility] Work Phone: [phone] Urea nitrogen [Mass/Vol] 38 mg/dL above high threshold 6 - 23 [facility]ology-[facility] 6 [facility] Work Phone: Renal Function Panel 15 mmol/L 10 - 20 [facility]-G astroen terology-[place] [facility] 6 I Work Phone: Renal Function Panel 34 {mL/min/1.73m2} Abnormal >90 [facility]astroen [facility]ology-[place] [facility] 6 I Work Phone: Comment on above: CALCULATIONS OF LASHAWN MATED GFR ARE PERFORMED USING THE 2020 CKD-EPI STUDY REFIT EQUATION WITHOUT THE RACE VARIABLE FOR THE IDMS-TRACEABLE CREATININE METHODS.https://jasn.asnjournals.org/content/early/ ASN.8172289643 CBCon 07-28-2022 Erythrocyte distribution width (RBC) [Ratio] 17.0 % High 11.5 - 14.5 [facility] Comment on above: Performed By: #### C BC ####[id number] [place] [address] Hematocrit (Bld) [Volume fraction] 34.1 % Low 36.0 - 46.0 [facility] Comment on above: Performed By: #### C BC ####[id number] [place] [address] Hemoglobin (Bld) [Mass/Vol] 10.4 g/dL Low 12.0 - 16.0 [facility] Comment on above: Performed By: #### C BC ####[id number] [place] [address] MCHC (RBC) [Mass/Vol] 30.5 g/dL Low 32.0 - 36.0 [facility] Comment on above: Performed By: #### C BC ####[id number] [place] [address] MCV (RBC) [Entitic vol] 99 fL Normal 80 - 100 [facility] Comment on above: Performed By: #### C BC ####[id number] [place] [address] NUCLEATED RBC 0.0 /100 WBC Normal 0.0-0.0 [facility] Comment on above: Performed By: #### C BC ####[id number] [place] [address] Platelets (Bld) [#/Vol] 487 10*3/uL High 150 - 450 [facility] Comment on above: Performed By: #### C BC ####[id number] [place] [address] RBC 3.44 x10E12/L Low 4.00 - 5.20 [facility] Comment on above: Performed By: #### C BC ####[id number] [place] [address] WBC (Bld) [#/Vol] 10.3 10*3/uL Normal 4.4 - 11.3 [facility] Comment on above: Performed By: #### C BC ####[id number], [place] Daily Progress Note - Psychi atryon 07-28-2022 Daily Progress Note - Psychiatry Normal [facility] Daily Progress Note-Cardiolo gyon 07-28-2022 Daily Progress Note-Cardiology Normal [facility] Daily Progress Note-Endocrin ologyon 07-28-2022 Daily Progress Note-Endocrinology Normal [facility] Daily Progress Note-Gastroen terologyon 07-28-2022 Daily Progress Note-Gastroenterology Normal [facility] GLUCOSE-POCTon 07-28-2022 Glucose [Mass/Vol] 107 mg/dL High 74 - 99 [facility] Comment on above: Performed By: #### G MANJULA ####[id number] [place] [address] Glucose [Mass/Vol] 112 mg/dL High 74 - 99 [facility] Comment on above: Performed By: #### G MANJULA ####[id number] [place] [address] Glucose [Mass/Vol] 177 mg/dL High 74 - 99 [facility] Comment on above: Performed By: #### G MANJULA ####[id number] [place] [address] Glucose [Mass/Vol] 197 mg/dL High 74 - 99 [facility] Comment on above: Performed By: #### G MANJULA ####[id number] [place] [address] Laboratory - Hematology and Cell countson 07-28-2022 Hematocrit (Bld) [Volume fraction] 34.1 % below low threshold See Below [facility]-Too lwell 6 [facility] Work Phone: Comment on above: Reference Range: 36. 0 - 46.0 Hemoglobin (Bld) [Mass/Vol] 10.4 g/dL below low threshold See Below [facility]astroen [facility]ology-Too lwell 6 [facility] Work Phone: Comment on above: Reference Range: 12. 0 - 16.0 Platelets (Bld) [#/Vol] 487 10*3/uL above hi gh threshold 150 - 450 [facility]-Too lwell 6 I Work Phone: RBC (Bld) [#/Vol] 3.44 {x10E12/L} below low threshold See Below [facility]astroen [facility]ology-Too lwell 6 [facility] Work Phone: Comment on above: Reference Range: 4.0 0 - 5.20 No Panel Informationon 07-28 107 mg/dL above high threshold 74 - 99 [facility] lwell 6 [facility] Work Phone: 17.0 % above high threshold See Below [facility]astro[facility]ology-Too lwell 6 [facility] Work Phone: Comment on above: Reference Range: 11. 5 - 14.5 30.5 g/dL below low threshold See Below [facility]astroen [facility]ology-Too lwell 6 [facility] Work Phone: Comment on above: Reference Range: 32. 0 - 36.0 99 fL 80 - 100 [facility]ology-Too lwell 6 [facility] Work Phone: 0.0 {/100_WBC} 0.0-0.0 [facility]-Gastroe n terology-Too lwell 6 [facility] Work Phone: 10.3 {x10E9/L} 4.4 - 11.3 [facility]-Gastroe n terology-Too lwell 6 [facility] Work Phone: 112 mg/dL above high threshold 74 - 99 [facility]ology-Too lwell 6 [facility] Work Phone: 177 mg/dL above high threshold 74 - 99 [facility]ology-Too lwell 6 [facility] Work Phone: [email or web address] ={[id number]} [facility]astroen [facility]ology-Too lwell 6 [facility] Work Phone: 197 mg/dL above high threshold 74 - 99 [facility]ology-Too lwell 6 [facility] Work Phone: RENAL FUNCTION PANELon 07-28 Albumin [Mass/Vol] 3.2 g/dL Low 3.4 - 5.0 [facility] Comment on above: Performed By: #### R ENAL ####[id number] [place] [address] Anion gap [Moles/Vol] 14 mmol/L Normal 10 - 20 [facility] Comment on above: Performed By: #### R ENAL ####[id number] [place] [address] Calcium [Mass/Vol] 8.3 mg/dL Low 8.6 - 10.6 [facility] Comment on above: Performed By: #### R ENAL ####[id number] [place] [address] Chloride [Moles/Vol] 99 mmol/L Normal 98 - 107 [facility] Comment on above: Performed By: #### R ENAL ####[id number] [place] [address] Creatinine [Mass/Vol] 1.70 mg/dL High 0.50 - 1.05 [facility] Comment on above: Performed By: #### R ENAL ####[id number] [place] [address] GFR/1.73 sq M.predicted among non-blacks MDRD (S/P/Bld) [Vol rate/Area] 34 mL/min/{1.73_m2} Abnormal >90 [facility] Comment on above: Result Comment: CALC ULATIONS OF ESTIMATED GFR ARE PERFORMED USING THE 2020 CKD-EPI STUDY REFIT EQUATION WITHOUT THE RACE VARIABLE FOR THE IDMS-TRACEABLE CREATININE METHODS.https://jasn.asnjournals.org/content/early/ ASN.9260734845 Performed By: #### R ENAL ####[id number] [place] [address] Glucose [Mass/Vol] 71 mg/dL Low 74 - 99 [facility] Comment on above: Performed By: #### R ENAL ####[id number] [place] [address] HCO3 (Bld) [Moles/Vol] 26 mmol/L Normal 21 - 32 [facility] Comment on above: Performed By: #### R ENAL ####[id number] [place] [address] Phosphate [Mass/Vol] 5.4 mg/dL High 2.5 - 4.9 [facility] Comment on above: Result Comment: The performance characteristics of phosphorus testing in heparinized plasma have been validated by the individual laboratory site where testing is performed. Testing on heparinized plasma is not approved by the FDA; however, such approval is not necessary. Performed By: #### R ENAL ####[id number] [place] [address] Potassium [Moles/Vol] 4.9 mmol/L Normal 3.5 - 5.3 [facility] Comment on above: Performed By: #### R ENAL ####[id number] [place] [address] Sodium [Moles/Vol] 134 mmol/L Low 136 - 145 [facility] Comment on above: Performed By: #### R ENAL ####[id number] [place] [address] Urea nitrogen [Mass/Vol] 27 mg/dL High 6 - 23 [facility] Comment on above: Performed By: #### R ENAL ####[id number] [place] [address] Rehab Note-attemptedon 07-28 Rehab Note-attempted Normal [facility] Rehab Note-individual therap yon 07-28-2022 Rehab Note-individual therapy Normal [facility] 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 07-28-2022 Rehab Note-occupational therapy Normal [facility] Renal Function Panelon 07-28 Albumin BCP dye [Mass/Vol] 3.2 g/dL below low threshold 3.4 - 5.0 [facility] l[facility] 6 I Work Phone: Calcium [Mass/Vol] 8.3 mg/dL below low threshold 8.6 - 10.6 [facility]ology-[facility] lwell 6 [facility] Work Phone: Chloride [Moles/Vol] 99 mmol/L 98 - 107 [facility]G astroen terology-Too lwell 6 [facility] Work Phone: CO2 [Moles/Vol] 26 mmol/L 21 - 32 [facility]astro en terology-Too lwell 6 [facility] Work Phone: Creatinine [Mass/Vol] 1.70 mg/dL above high threshold See Below [facility]astroen [facility]ology-Too lwell 6 [facility] Work Phone: Comment on above: Reference Range: 0.5 0 - 1.05 Glucose [Mass/Vol] 71 mg/dL below low threshold 74 - 99 [facility]ology-Too lwell 6 [facility] Work Phone: Phosphate [Mass/Vol] 5.4 mg/dL above high threshold 2.5 - 4.9 [facility]ology-Too lwell 6 [facility] Work Phone: Comment on above: The performance juan a acteristics of phosphorus testing in heparinized plasma have been validated by the individual laboratory site where testing is performed. Testing on heparinized plasma is not approved by the FDA; however, such approval is not necessary. Potassium [Moles/Vol] 4.9 mmol/L 3.5 - 5.3 [facility]ology-Too lwell 6 [facility] Work Phone: Sodium [Moles/Vol] 134 mmol/L below low threshold 136 - 145 [facility]ology-Too lwell 6 [facility] Work Phone: Urea nitrogen [Mass/Vol] 27 mg/dL above high threshold 6 - 23 [facility]ology-Too lwell 6 [facility] Work Phone: Renal Function Panel 34 {mL/min/1.73m2} Abnormal >90 [facility]ology-Oto lwell 6 I Work Phone: Comment on above: CALCULATIONS OF LASHAWN MATED GFR ARE PERFORMED USING THE 2020 CKD-EPI STUDY REFIT EQUATION WITHOUT THE RACE VARIABLE FOR THE IDMS-TRACEABLE CREATININE METHODS.https://jasn.asnjournals.org/content// ASN.9356397041 Renal Function Panel 14 mmol/L 10 - 20 [facility] astroen terology-Too lwell 6 I Work Phone: Video capsule endoscopyon Video capsule endoscopy Normal [facility] CBCon 07-27-2022 Erythrocyte distribution width (RBC) [Ratio] 17.3 % High 11.5 - 14.5 [facility] Comment on above: Performed By: #### C BC ####[id number] [place] [address] Hematocrit (Bld) [Volume fraction] 33.2 % Low 36.0 - 46.0 [facility] Comment on above: Performed By: #### C BC ####[id number] [place] [address] Hemoglobin (Bld) [Mass/Vol] 10.2 g/dL Low 12.0 - 16.0 [facility] Comment on above: Performed By: #### C BC ####[id number] [place] [address] MCHC (RBC) [Mass/Vol] 30.7 g/dL Low 32.0 - 36.0 [facility] Comment on above: Performed By: #### C BC ####[id number] [place] [address] MCV (RBC) [Entitic vol] 96 fL Normal 80 - 100 [facility] Comment on above: Performed By: #### C BC ####[id number] [place] [address] NUCLEATED RBC 0.0 /100 WBC Normal 0.0-0.0 [facility] Comment on above: Performed By: #### C BC ####[id number] [place] [address] Platelets (Bld) [#/Vol] 434 10*3/uL Normal 150 - 450 [facility] Comment on above: Performed By: #### C BC ####[id number] [place] [address] RBC 3.47 x10E12/L Low 4.00 - 5.20 [facility] Comment on above: Performed By: #### C BC ####[id number] [place] [address] WBC (Bld) [#/Vol] 9.9 10*3/uL Normal 4.4 - 11.3 [facility] Comment on above: Performed By: #### C BC ####[id number] [place] [address] Daily Progress Note-Endocrin ologyon 07-27-2022 Daily Progress Note-Endocrinology Normal [facility] GLUCOSE-POCTon 07-27-2022 Glucose [Mass/Vol] 120 mg/dL High 74 - 99 [facility] Comment on above: Performed By: #### G MANJULA ####[id number] [place] [address] Glucose [Mass/Vol] 171 mg/dL High 74 - 99 [facility] Comment on above: Performed By: #### G MANJULA ####[id number] [place] [address] Glucose [Mass/Vol] 155 mg/dL High 74 - 99 [facility] Comment on above: Performed By: #### G MANJULA ####[id number] [place] [address] Glucose [Mass/Vol] 152 mg/dL High 74 - 99 [facility] Comment on above: Performed By: #### G MANJULA ####[id number] [place] [address] Laboratory - Hematology and Cell countson 07-27-2022 Hematocrit (Bld) [Volume fraction] 33.2 % below low threshold See Below [facility]-Gastroen terology-Too lwell 6 [facility] Work Phone: Comment on above: Reference Range: 36. 0 - 46.0 Hemoglobin (Bld) [Mass/Vol] 10.2 g/dL below low threshold See Below [facility]-Gastroen terology-Too lwell 6 [facility] Work Phone: Comment on above: Reference Range: 12. 0 - 16.0 Platelets (Bld) [#/Vol] 434 10*3/uL 150 - 450 [facility]astroen [facility]ology-Too lwell 6 [facility] Work Phone: RBC (Bld) [#/Vol] 3.47 {x10E12/L} below low threshold See Below [facility]-Gastroen terology-Too lwell 6 [facility] Work Phone: Comment on above: Reference Range: 4.0 0 - 5.20 No Panel Informationon 07-27 17.3 % above high threshold See Below [facility]-Gastroen terology-Too lwell 6 [facility] Work Phone: Comment on above: Reference Range: 11. 5 - 14.5 30.7 g/dL below low threshold See Below [facility]-Gastroen terology-Too lwell 6 [facility] Work Phone: Comment on above: Reference Range: 32. 0 - 36.0 96 fL 80 - 100 [facility]astroen [facility]ology-Too lwell 6 [facility] Work Phone: 0.0 {/100_WBC} 0.0-0.0 [facility]-Gastroe n terology-Too lwell 6 [facility] Work Phone: 9.9 {x10E9/L} 4.4 - 11.3 [facility]astroen [facility]ology-Too lwell 6 [facility] Work Phone: 120 mg/dL above high threshold 74 - 99 [facility]astroen terology-Too lwell 6 [facility] Work Phone: [email or web address] ={[id number]} [facility]astroen [facility]ology-Too lwell 6 [facility] Work Phone: 171 mg/dL above high threshold 74 - 99 [facility]en [facility]ology-Too lwell 6 [facility] Work Phone: 155 mg/dL above high threshold 74 - 99 [facility]astroen terology-Too lwell 6 [facility] Work Phone: 152 mg/dL above high threshold 74 - 99 [facility]astroen [facility]ology-Too lwell 6 [facility] Work Phone: RENAL FUNCTION PANELon 07-27 Albumin [Mass/Vol] 3.4 g/dL Normal 3.4 - 5.0 [facility] Comment on above: Performed By: #### R ENAL ####[id number] [place] [address] Anion gap [Moles/Vol] 13 mmol/L Normal 10 - 20 [facility] Comment on above: Performed By: #### R ENAL ####[id number] [place] [address] Calcium [Mass/Vol] 8.4 mg/dL Low 8.6 - 10.6 [facility] Comment on above: Performed By: #### R ENAL ####[id number] [place] [address] Chloride [Moles/Vol] 97 mmol/L Low 98 - 107 [facility] Comment on above: Performed By: #### R ENAL ####[id number] [place] [address] Creatinine [Mass/Vol] 1.44 mg/dL High 0.50 - 1.05 [facility] Comment on above: Performed By: #### R ENAL ####[id number] [place] [address] GFR/1.73 sq M.predicted among non-blacks MDRD (S/P/Bld) [Vol rate/Area] 41 mL/min/{1.73_m2} Abnormal >90 [facility] Comment on above: Result Comment: CALC ULATIONS OF ESTIMATED GFR ARE PERFORMED USING THE 2020 CKD-EPI STUDY REFIT EQUATION WITHOUT THE RACE VARIABLE FOR THE IDMS-TRACEABLE CREATININE METHODS.https://jasn.asnjournals.org/content/early/ ASN.2507907149 Performed By: #### R ENAL ####[id number] [place] [address] Glucose [Mass/Vol] 217 mg/dL High 74 - 99 [facility] Comment on above: Performed By: #### R ENAL ####[id number] [place] [address] HCO3 (Bld) [Moles/Vol] 26 mmol/L Normal 21 - 32 [facility] Comment on above: Performed By: #### R ENAL ####[id number] [place] [address] Phosphate [Mass/Vol] 4.7 mg/dL Normal 2.5 - 4.9 [facility] Comment on above: Result Comment: The performance characteristics of phosphorus testing in heparinized plasma have been validated by the individual laboratory site where testing is performed. Testing on heparinized plasma is not approved by the FDA; however, such approval is not necessary. Performed By: #### R ENAL ####[id number] [place] [address] Potassium [Moles/Vol] 4.4 mmol/L Normal 3.5 - 5.3 [facility] Comment on above: Performed By: #### R ENAL ####[id number] [place] [address] Sodium [Moles/Vol] 132 mmol/L Low 136 - 145 [facility] Comment on above: Performed By: #### R ENAL ####[id number] [place] [address] Urea nitrogen [Mass/Vol] 23 mg/dL Normal 6 - 23 [facility] Comment on above: Performed By: #### R ENAL ####[id number] [place] [address] Rehab Note-attemptedon 07-27 Rehab Note-attempted Normal [facility] 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 Rehab Note-occupational therapy Normal [facility] Renal Function Panelon 07-27 Albumin BCP dye [Mass/Vol] 3.4 g/dL 3.4 - 5.0 [facility]ology-[facility] lwell 6 I Work Phone: Calcium [Mass/Vol] 8.4 mg/dL below low threshold 8.6 - 10.6 [facility] lwell 6 [facility] Work Phone: Chloride [Moles/Vol] 97 mmol/L below low threshold 98 - 107 [facility]ology-Too lwell 6 [facility] Work Phone: CO2 [Moles/Vol] 26 mmol/L 21 - 32 [facility] en terology-Too lwell 6 [facility] Work Phone: Creatinine [Mass/Vol] 1.44 mg/dL above high threshold See Below [facility]astroen terology-Too lwell 6 [facility] Work Phone: Comment on above: Reference Range: 0.5 0 - 1.05 Glucose [Mass/Vol] 217 mg/dL above high threshold 74 - 99 [facility]ology-Too lwell 6 [facility] Work Phone: Phosphate [Mass/Vol] 4.7 mg/dL 2.5 - 4.9 [facility] astroen terology-Too lwell 6 [facility] Work Phone: Comment on above: The performance juan a acteristics of phosphorus testing in heparinized plasma have been validated by the individual laboratory site where testing is performed. Testing on heparinized plasma is not approved by the FDA; however, such approval is not necessary. Potassium [Moles/Vol] 4.4 mmol/L 3.5 - 5.3 [facility]- Gastroen terology-Too lwell 6 [facility] Work Phone: Sodium [Moles/Vol] 132 mmol/L below low threshold 136 - 145 [facility]ology-Too lwell 6 [facility] Work Phone: Urea nitrogen [Mass/Vol] 23 mg/dL 6 - 23 [facility] lwell 6 [facility] Work Phone: Renal Function Panel 41 {mL/min/1.73m2} Abnormal >90 [facility]ology-[facility] lwell 6 [facility] Work Phone: Comment on above: CALCULATIONS OF LASHAWN MATED GFR ARE PERFORMED USING THE 2020 CKD-EPI STUDY REFIT EQUATION WITHOUT THE RACE VARIABLE FOR THE IDMS-TRACEABLE CREATININE METHODS.https://jasn.asnjournals.org/content// ASN.5635248172 Renal Function Panel 13 mmol/L 10 - 20 [facility] astroen terology-Too lwell 6 [facility] Work Phone: CBCon 07-26-2022 Erythrocyte distribution width (RBC) [Ratio] 17.0 % High 11.5 - 14.5 [facility] Comment on above: Performed By: #### C BC ####[id number] [place] [address] Hematocrit (Bld) [Volume fraction] 30.2 % Low 36.0 - 46.0 [facility] Comment on above: Performed By: #### C BC ####[id number] [place] [address] Hemoglobin (Bld) [Mass/Vol] 9.4 g/dL Low 12.0 - 16.0 [facility] Comment on above: Performed By: #### C BC ####[id number] [place] [address] MCHC (RBC) [Mass/Vol] 31.1 g/dL Low 32.0 - 36.0 [facility] Comment on above: Performed By: #### C BC ####[id number] [place] [address] MCV (RBC) [Entitic vol] 94 fL Normal 80 - 100 [facility] Comment on above: Performed By: #### C BC ####[id number] [place] [address] NUCLEATED RBC 0.0 /100 WBC Normal 0.0-0.0 [facility] Comment on above: Performed By: #### C BC ####[id number] [place] [address] Platelets (Bld) [#/Vol] 352 10*3/uL Normal 150 - 450 [facility] Comment on above: Performed By: #### C BC ####[id number] [place] [address] RBC 3.20 x10E12/L Low 4.00 - 5.20 [facility] Comment on above: Performed By: #### C BC ####[id number] [place] [address] WBC (Bld) [#/Vol] 9.1 10*3/uL Normal 4.4 - 11.3 [facility] Comment on above: Performed By: #### C BC ####[id number] [place] [address] HCT Canceled Normal [facility] Comment on above: Order Comment: TEST CBC WAS CANCELLED, 07/26/2022 09:00 NO SPECIMEN RECEIVED IN LAB. Performed By: #### C BC ####[id number] [place] [address] HGB Canceled Normal [facility] Comment on above: Order Comment: TEST CBC WAS CANCELLED, 07/26/2022 09:00 NO SPECIMEN RECEIVED IN LAB. Performed By: #### C BC ####[id number] [place] [address] MCHC Canceled Normal [facility] Comment on above: Order Comment: TEST CBC WAS CANCELLED, 07/26/2022 09:00 NO SPECIMEN RECEIVED IN LAB. Performed By: #### C BC ####[id number] [place] [address] MCV Canceled Normal [facility] Comment on above: Order Comment: TEST CBC WAS CANCELLED, 07/26/2022 09:00 NO SPECIMEN RECEIVED IN LAB. Performed By: #### C BC ####[id number] [place] [address] NUCLEATED RBC Canceled Normal [facility] Comment on above: Order Comment: TEST CBC WAS CANCELLED, 07/26/2022 09:00 NO SPECIMEN RECEIVED IN LAB. Performed By: #### C BC ####[id number] [place] [address] PLT Canceled Normal [facility] Comment on above: Order Comment: TEST CBC WAS CANCELLED, 07/26/2022 09:00 NO SPECIMEN RECEIVED IN LAB. Performed By: #### C BC ####[id number] [place] [address] RBC Canceled Normal [facility] Comment on above: Order Comment: TEST CBC WAS CANCELLED, 07/26/2022 09:00 NO SPECIMEN RECEIVED IN LAB. Performed By: #### C BC ####[id number] [place] [address] RDW-CV Canceled Normal [facility] Comment on above: Order Comment: TEST CBC WAS CANCELLED, 07/26/2022 09:00 NO SPECIMEN RECEIVED IN LAB. Performed By: #### C BC ####[id number] [place] [address] WBC Canceled Normal [facility] Comment on above: Order Comment: TEST CBC WAS CANCELLED, 07/26/2022 09:00 NO SPECIMEN RECEIVED IN LAB. Performed By: #### C BC ####[id number] [place] [address] Clinical Event Note-GI EGD R ESULTSon 07-26-2022 Clinical Event Note-GI EGD RESULTS Normal [facility] Consult - Psychiatryon 07-26 Consult - Psychiatry Normal [facility] Daily Progress Note-Endocrin ologyon 07-26-2022 Daily Progress Note-Endocrinology Normal [facility] GLUCOSE-POCTon 07-26-2022 Glucose [Mass/Vol] 138 mg/dL High 74 - 99 [facility] Comment on above: Performed By: #### G MANJULA ####[id number] [place] [address] Glucose [Mass/Vol] 147 mg/dL High 74 - 99 [facility] Comment on above: Performed By: #### G MANJULA ####[id number] [place] [address] Laboratory - Hematology and Cell countson 07-26-2022 Hematocrit (Bld) [Volume fraction] 30.2 % below low threshold See Below [facility]-Gastroen terology-Too lwell 6 I Work Phone: Comment on above: Reference Range: 36. 0 - 46.0 Hemoglobin (Bld) [Mass/Vol] 9.4 g/dL below low threshold See Below [facility]-Gastroen terology-Too lwell 6 [facility] Work Phone: Comment on above: Reference Range: 12. 0 - 16.0 Platelets (Bld) [#/Vol] 352 10*3/uL 150 - 450 [facility]ology-Too lwell 6 [facility] Work Phone: RBC (Bld) [#/Vol] 3.20 {x10E12/L} below low threshold See Below [facility]ology-Too lwell 6 [facility] Work Phone: Comment on above: Reference Range: 4.0 0 - 5.20 No Panel Informationon 07-26 17.0 % above high threshold See Below [facility]ology-Too lwell 6 [facility] Work Phone: Comment on above: Reference Range: 11. 5 - 14.5 31.1 g/dL below low threshold See Below [facility]astroen [facility]ology-Too lwell 6 [facility] Work Phone: Comment on above: Reference Range: 32. 0 - 36.0 94 fL 80 - 100 [facility]astroen [facility]ology-Too lwell 6 [facility] Work Phone: 0.0 {/100_WBC} 0.0-0.0 MG-Gastroe n terology-Too lwell 6 [facility] Work Phone: 9.1 {x10E9/L} 4.4 - 11.3 [facility]astroen [facility]ology-Too lwell 6 [facility] Work Phone: 138 mg/dL above high threshold 74 - 99 [facility]en [facility]ology-Too lwell 6 [facility] Work Phone: 147 mg/dL above high threshold 74 - 99 [facility]ology-Too lwell 6 [facility] Work Phone: [email or web address] ={[id number]} [facility]en [facility]ology-Too lwell 6 [facility] Work Phone: RENAL FUNCTION PANELon 07-26 Albumin [Mass/Vol] 3.3 g/dL Low 3.4 - 5.0 [facility] Comment on above: Performed By: #### R ENAL ####[id number] [place] [address] Anion gap [Moles/Vol] 11 mmol/L Normal 10 - 20 [facility] Comment on above: Performed By: #### R ENAL ####[id number] [place] [address] Calcium [Mass/Vol] 8.5 mg/dL Low 8.6 - 10.6 [facility] Comment on above: Performed By: #### R ENAL ####[id number] [place] [address] Chloride [Moles/Vol] 97 mmol/L Low 98 - 107 [facility] Comment on above: Performed By: #### R ENAL ####[id number] [place] [address] Creatinine [Mass/Vol] 1.36 mg/dL High 0.50 - 1.05 [facility] Comment on above: Performed By: #### R ENAL ####[id number] [place] [address] GFR/1.73 sq M.predicted among non-blacks MDRD (S/P/Bld) [Vol rate/Area] 44 mL/min/{1.73_m2} Abnormal >90 [facility] Comment on above: Result Comment: CALC ULATIONS OF ESTIMATED GFR ARE PERFORMED USING THE 2020 CKD-EPI STUDY REFIT EQUATION WITHOUT THE RACE VARIABLE FOR THE IDMS-TRACEABLE CREATININE METHODS.https://jasn.asnjournals.org/content/early/ ASN.9822593605 Performed By: #### R ENAL ####[id number] [place] [address] Glucose [Mass/Vol] 234 mg/dL High 74 - 99 [facility] Comment on above: Performed By: #### R ENAL ####[id number] [place] [address] HCO3 (Bld) [Moles/Vol] 27 mmol/L Normal 21 - 32 [facility] Comment on above: Performed By: #### R ENAL ####[id number] [place] [address] Phosphate [Mass/Vol] 5.2 mg/dL High 2.5 - 4.9 [facility] Comment on above: Result Comment: The performance characteristics of phosphorus testing in heparinized plasma have been validated by the individual laboratory site where testing is performed. Testing on heparinized plasma is not approved by the FDA; however, such approval is not necessary. Performed By: #### R ENAL ####[id number] [place] [address] Potassium [Moles/Vol] 5.4 mmol/L High 3.5 - 5.3 [facility] Comment on above: Performed By: #### R ENAL ####[id number] [place] [address] Sodium [Moles/Vol] 130 mmol/L Low 136 - 145 [facility] Comment on above: Performed By: #### R ENAL ####[id number] [place] [address] Urea nitrogen [Mass/Vol] 30 mg/dL High 6 - 23 [facility] Comment on above: Performed By: #### R ENAL ####[id number] [place] [address] Rehab Note-attemptedon 07-26 Rehab Note-attempted Normal [facility] Renal Function Panelon 07-26 Albumin BCP dye [Mass/Vol] 3.3 g/dL below low threshold 3.4 - 5.0 [facility]-Too lwell 6 I Work Phone: Calcium [Mass/Vol] 8.5 mg/dL below low threshold 8.6 - 10.6 [facility]astro[facility]ology-Too lwell 6 I Work Phone: Chloride [Moles/Vol] 97 mmol/L below low threshold 98 - 107 [facility]astro[facility]ology-Too lwell 6 I Work Phone: CO2 [Moles/Vol] 27 mmol/L 21 - 32 [facility]-Gastro en terology-Too lwell 6 I Work Phone: Creatinine [Mass/Vol] 1.36 mg/dL above high threshold See Below [facility]ology-Too lwell 6 I Work Phone: Comment on above: Reference Range: 0.5 0 - 1.05 Glucose [Mass/Vol] 234 mg/dL above high threshold 74 - 99 [facility]astro[facility]ology-Too lwell 6 I Work Phone: Phosphate [Mass/Vol] 5.2 mg/dL above high threshold 2.5 - 4.9 [facility]ology-Too lwell 6 [facility] Work Phone: Comment on above: The performance juan a acteristics of phosphorus testing in heparinized plasma have been validated by the individual laboratory site where testing is performed. Testing on heparinized plasma is not approved by the FDA; however, such approval is not necessary. Potassium [Moles/Vol] 5.4 mmol/L above high threshold 3.5 - 5.3 [facility]astroen [facility]ology-Too lwell 6 I Work Phone: Sodium [Moles/Vol] 130 mmol/L below low threshold 136 - 145 [facility]ology-Too lwell 6 [facility] Work Phone: Urea nitrogen [Mass/Vol] 30 mg/dL above high threshold 6 - 23 [facility]ology-Too lwell 6 I Work Phone: Renal Function Panel 44 {mL/min/1.73m2} Abnormal >90 [facility]ology-Too lwell 6 I Work Phone: Comment on above: CALCULATIONS OF LASHAWN MATED GFR ARE PERFORMED USING THE 2020 CKD-EPI STUDY REFIT EQUATION WITHOUT THE RACE VARIABLE FOR THE IDMS-TRACEABLE CREATININE METHODS.https://jasn.asnjournals.org/content/early// ASN.7993796995 Renal Function Panel 11 mmol/L 10 - 20 [facility]-G astroen terology-Too lwell 6 I Work Phone: [facility] Surgical Pathology Depar tmenton 07-26-2022 [facility] Surgical Pathology Department Normal [facility] Comment on above: Performed By: #### U HCS ####[facility] Surgical Pathology [id number] [facility] [address] Upper GI endoscopyon 022 Upper GI endoscopy Normal [facility] CBCon 07-25-2022 Erythrocyte distribution width (RBC) [Ratio] 16.3 % High 11.5 - 14.5 [facility] Comment on above: Performed By: #### C BC ####[id number] [place] [address] Hematocrit (Bld) [Volume fraction] 30.7 % Low 36.0 - 46.0 [facility] Comment on above: Performed By: #### C BC ####[id number] [place] [address] Hemoglobin (Bld) [Mass/Vol] 9.4 g/dL Low 12.0 - 16.0 [facility] Comment on above: Performed By: #### C BC ####[id number] [place] [address] MCHC (RBC) [Mass/Vol] 30.6 g/dL Low 32.0 - 36.0 [facility] Comment on above: Performed By: #### C BC ####[id number] [place] [address] MCV (RBC) [Entitic vol] 95 fL Normal 80 - 100 [facility] Comment on above: Performed By: #### C BC ####[id number] [place] [address] NUCLEATED RBC 0.0 /100 WBC Normal 0.0-0.0 [facility] Comment on above: Performed By: #### C BC ####[id number] [place] [address] Platelets (Bld) [#/Vol] 299 10*3/uL Normal 150 - 450 [facility] Comment on above: Performed By: #### C BC ####[id number] [place] [address] RBC 3.22 x10E12/L Low 4.00 - 5.20 [facility] Comment on above: Performed By: #### C BC ####[id number] [place] [address] WBC (Bld) [#/Vol] 10.4 10*3/uL Normal 4.4 - 11.3 [facility] Comment on above: Performed By: #### C BC ####[id number] [place] [address] Daily Progress Note-Cardiolo gyon 07-25-2022 Daily Progress Note-Cardiology Normal [facility] Daily Progress Note-Electrop hysiologyon 07-25-2022 Daily Progress Note-Electrophysiology Normal [facility] Daily Progress Note-Endocrin ologyon 07-25-2022 Daily Progress Note-Endocrinology Normal [facility] GLUCOSE-POCTon 07-25-2022 Glucose [Mass/Vol] 97 mg/dL Normal 74 - 99 [facility] Comment on above: Performed By: #### G MANJULA ####[id number] [place] [address] Glucose [Mass/Vol] 102 mg/dL High 74 - 99 [facility] Comment on above: Performed By: #### G MANJULA ####[id number] [place] [address] Glucose [Mass/Vol] 169 mg/dL High 74 - 99 [facility] Comment on above: Performed By: #### G MANJULA ####[id number] [place] [address] Glucose [Mass/Vol] 270 mg/dL High 74 - 99 [facility] Comment on above: Performed By: #### G MANJULA ####[id number] [place] [address] Laboratory - Hematology and Cell countson 07-25-2022 Hematocrit (Bld) [Volume fraction] Canceled [facility]ology-Too lwell 6 I Work Phone: Hemoglobin (Bld) [Mass/Vol] Canceled [facility]astroen [facility]ology-Too lwell 6 I Work Phone: Platelets (Bld) [#/Vol] Canceled M G-Gastroen terology-Too lwell 6 I Work Phone: RBC (Bld) [#/Vol] Canceled MG-Clementine roen terology-Too lwell 6 I Work Phone: Hematocrit (Bld) [Volume fraction] 30.7 % below low threshold See Below [facility]astroen terology-Too lwell 6 I Work Phone: Comment on above: Reference Range: 36. 0 - 46.0 Hemoglobin (Bld) [Mass/Vol] 9.4 g/dL below low threshold See Below [facility]astroen terology-Too lwell 6 [facility] Work Phone: Comment on above: Reference Range: 12. 0 - 16.0 Platelets (Bld) [#/Vol] 299 10*3/uL 150 - 450 [facility]ology-Too lwell 6 [facility] Work Phone: RBC (Bld) [#/Vol] 3.22 {x10E12/L} below low threshold See Below [facility]astroen terology-Too lwell 6 I Work Phone: Comment on above: Reference Range: 4.0 0 - 5.20 No Panel Informationon 07-25 97 mg/dL 74 - 99 [facility]ology-Too lwell 6 I Work Phone: 102 mg/dL above high threshold 74 - 99 [facility]astroen [facility]ology-Too lwell 6 I Work Phone: Canceled [facility]astro[facility]ology-Too lwell 6 I Work Phone: 16.3 % above high threshold See Below [facility]-Gastroen terology-Too lwell 6 I Work Phone: Comment on above: Reference Range: 11. 5 - 14.5 30.6 g/dL below low threshold See Below [facility]-Gastroen terology-Too lwell 6 I Work Phone: Comment on above: Reference Range: 32. 0 - 36.0 95 fL 80 - 100 [facility]astroen terology-Too lwell 6 I Work Phone: 0.0 {/100_WBC} 0.0-0.0 MG-Gastroe n terology-Too lwell 6 I Work Phone: 10.4 {x10E9/L} 4.4 - 11.3 MG-Gastroe n terology-Too lwell 6 I Work Phone: 169 mg/dL above high threshold 74 - 99 [facility]astroen terology-Too lwell 6 I Work Phone: 270 mg/dL above high threshold 74 - 99 [facility]astroen terology-Too lwell 6 I Work Phone: RENAL FUNCTION PANELon 07-25 Albumin [Mass/Vol] 3.4 g/dL Normal 3.4 - 5.0 [facility] Comment on above: Performed By: #### R ENAL ####[id number] [place] [address] Anion gap [Moles/Vol] 12 mmol/L Normal 10 - 20 [facility] Comment on above: Performed By: #### R ENAL ####[id number] [place] [address] Calcium [Mass/Vol] 8.6 mg/dL Normal 8.6 - 10.6 [facility] Comment on above: Performed By: #### R ENAL ####[id number] [place] [address] Chloride [Moles/Vol] 95 mmol/L Low 98 - 107 [facility] Comment on above: Performed By: #### R ENAL ####[id number] [place] [address] Creatinine [Mass/Vol] 1.49 mg/dL High 0.50 - 1.05 [facility] Comment on above: Performed By: #### R ENAL ####[id number] [place] [address] GFR/1.73 sq M.predicted among non-blacks MDRD (S/P/Bld) [Vol rate/Area] 40 mL/min/{1.73_m2} Abnormal >90 [facility] Comment on above: Result Comment: CALC ULATIONS OF ESTIMATED GFR ARE PERFORMED USING THE 2020 CKD-EPI STUDY REFIT EQUATION WITHOUT THE RACE VARIABLE FOR THE IDMS-TRACEABLE CREATININE METHODS.https://jasn.asnjournals.org/content// ASN.7760821210 Performed By: #### R ENAL ####[id number] [place] [address] Glucose [Mass/Vol] 86 mg/dL Normal 74 - 99 [facility] Comment on above: Performed By: #### R ENAL ####[id number] [place] [address] HCO3 (Bld) [Moles/Vol] 30 mmol/L Normal 21 - 32 [facility] Comment on above: Performed By: #### R ENAL ####[id number] [place] [address] Phosphate [Mass/Vol] 4.7 mg/dL Normal 2.5 - 4.9 [facility] Comment on above: Result Comment: The performance characteristics of phosphorus testing in heparinized plasma have been validated by the individual laboratory site where testing is performed. Testing on heparinized plasma is not approved by the FDA; however, such approval is not necessary. Performed By: #### R ENAL ####[id number] [place] [address] Potassium [Moles/Vol] 4.6 mmol/L Normal 3.5 - 5.3 [facility] Comment on above: Performed By: #### R ENAL ####[id number] [place] [address] Sodium [Moles/Vol] 132 mmol/L Low 136 - 145 [facility] Comment on above: Performed By: #### R ENAL ####[id number] [place] [address] Urea nitrogen [Mass/Vol] 32 mg/dL High 6 - 23 [facility] Comment on above: Performed By: #### R ENAL ####[id number] [place] [address] Renal Function Panelon 07-25 Albumin BCP dye [Mass/Vol] 3.4 g/dL 3.4 - 5.0 [facility]astroen [facility]ology-Too lwell 6 I Work Phone: Calcium [Mass/Vol] 8.6 mg/dL 8.6 - 10.6 MG-Gas troen terology-Too lwell 6 I Work Phone: Chloride [Moles/Vol] 95 mmol/L below low threshold 98 - 107 [facility]astroen terology-Too lwell 6 I Work Phone: CO2 [Moles/Vol] 30 mmol/L 21 - 32 [facility]-Gastro en terology-Too lwell 6 I Work Phone: Creatinine [Mass/Vol] 1.49 mg/dL above high threshold See Below [facility]astroen terology-Too lwell 6 I Work Phone: Comment on above: Reference Range: 0.5 0 - 1.05 Glucose [Mass/Vol] 86 mg/dL 74 - 99 [facility]-Gas troen terology-Too lwell 6 [facility] Work Phone: Phosphate [Mass/Vol] 4.7 mg/dL 2.5 - 4.9 MG-G astroen terology-Too lwell 6 [facility] Work Phone: Comment on above: The performance juan a acteristics of phosphorus testing in heparinized plasma have been validated by the individual laboratory site where testing is performed. Testing on heparinized plasma is not approved by the FDA; however, such approval is not necessary. Potassium [Moles/Vol] 4.6 mmol/L 3.5 - 5.3 [facility]- Gastroen terology-Too lwell 6 [facility] Work Phone: Sodium [Moles/Vol] 132 mmol/L below low threshold 136 - 145 [facility]-Gastroen terology-Too lwell 6 [facility] Work Phone: Urea nitrogen [Mass/Vol] 32 mg/dL above high threshold 6 - 23 [facility]astroen terology-Too lwell 6 I Work Phone: Renal Function Panel 40 {mL/min/1.73m2} Abnormal >90 [facility]Gastroen terology-Too lwell 6 [facility] Work Phone: Comment on above: CALCULATIONS OF LASHAWN MATED GFR ARE PERFORMED USING THE 2020 CKD-EPI STUDY REFIT EQUATION WITHOUT THE RACE VARIABLE FOR THE IDMS-TRACEABLE CREATININE METHODS.https://jasn.asnjournals.org/content// ASN.5580217212 Renal Function Panel 12 mmol/L 10 - 20 MG-G astroen macarena-Too lopez 6 [facility] Work Phone: CBCon 07-24-2022 Erythrocyte distribution width (RBC) [Ratio] 16.2 % High 11.5 - 14.5 [facility] Comment on above: Performed By: #### C BC ####[id number] [place] [address] Hematocrit (Bld) [Volume fraction] 30.6 % Low 36.0 - 46.0 [facility] Comment on above: Performed By: #### C BC ####[id number] [place] [address] Hemoglobin (Bld) [Mass/Vol] 9.1 g/dL Low 12.0 - 16.0 [facility] Comment on above: Performed By: #### C BC ####[id number] [place] [address] MCHC (RBC) [Mass/Vol] 29.7 g/dL Low 32.0 - 36.0 [facility] Comment on above: Performed By: #### C BC ####[id number] [place] [address] MCV (RBC) [Entitic vol] 95 fL Normal 80 - 100 [facility] Comment on above: Performed By: #### C BC ####[id number] [place] [address] NUCLEATED RBC 0.0 /100 WBC Normal 0.0-0.0 [facility] Comment on above: Performed By: #### C BC ####[id number] [place] [address] Platelets (Bld) [#/Vol] 214 10*3/uL Normal 150 - 450 [facility] Comment on above: Performed By: #### C BC ####[id number] [place] [address] RBC 3.22 x10E12/L Low 4.00 - 5.20 [facility] Comment on above: Performed By: #### C BC ####[id number] [place] [address] WBC (Bld) [#/Vol] 10.0 10*3/uL Normal 4.4 - 11.3 [facility] Comment on above: Performed By: #### C BC ####[id number] [place] [address] Clinical Event Note-endocrin ology recs - no insulin changeson 07-24-2022 Clinical Event Note-endocrinology recs - no insulin changes Normal [facility] Daily Progress Note-Cardiolo gyon 07-24-2022 Daily Progress Note-Cardiology Normal [facility] Daily Progress Note-Gastroen terologyon 07-24-2022 Daily Progress Note-Gastroenterology Normal [facility] GLUCOSE-POCTon 07-24-2022 Glucose [Mass/Vol] 211 mg/dL High 74 - 99 [facility] Comment on above: Performed By: #### G MANJULA ####[id number] [place] [address] Glucose [Mass/Vol] 89 mg/dL Normal 74 - 99 [facility] Comment on above: Performed By: #### G MANJULA ####[id number] [place] [address] Glucose [Mass/Vol] 161 mg/dL High 74 - 99 [facility] Comment on above: Performed By: #### G MANJULA ####[id number] [place] [address] Glucose [Mass/Vol] 164 mg/dL High 74 - 99 [facility] Comment on above: Performed By: #### G MANJULA ####[id number] [place] [address] Laboratory - Hematology and Cell countson 07-24-2022 Hematocrit (Bld) [Volume fraction] 30.6 % below low threshold See Below MG-Gastroen terology-Too truell 6 I Work Phone: Comment on above: Reference Range: 36. 0 - 46.0 Hemoglobin (Bld) [Mass/Vol] 9.1 g/dL below low threshold See Below MG-Gastroen terology-Too lwell 6 [facility] Work Phone: Comment on above: Reference Range: 12. 0 - 16.0 Platelets (Bld) [#/Vol] 214 10*3/uL 150 - 450 [facility]-Gastroen terology-Too lwell 6 [facility] Work Phone: RBC (Bld) [#/Vol] 3.22 {x10E12/L} below low threshold See Below [facility]-Gastroen terology-Too lwell 6 [facility] Work Phone: Comment on above: Reference Range: 4.0 0 - 5.20 MAGNESIUMon 07-24-2022 Magnesium [Mass/Vol] 1.84 mg/dL Normal 1.60 - 2.40 [facility] Comment on above: Performed By: #### M G ####[id number] [place] [address] Magnesium, Serumon Magnesium [Mass/Vol] 1.84 mg/dL See Below MG-G astroen terology-Too lwell 6 I Work Phone: Comment on above: Reference Range: 1.6 0 - 2.40 No Panel Informationon 07-24 211 mg/dL above high threshold 74 - 99 [facility]-Gastroen terology-Too lwell 6 I Work Phone: 16.2 % above high threshold See Below MG-Gastroen terology-Too lwell 6 I Work Phone: Comment on above: Reference Range: 11. 5 - 14.5 29.7 g/dL below low threshold See Below MG-Gastroen terology-Too lwell 6 I Work Phone: Comment on above: Reference Range: 32. 0 - 36.0 95 fL 80 - 100 [facility]-Gastroen terology-Too lwell 6 I Work Phone: 0.0 {/100_WBC} 0.0-0.0 MG-Gastroe n terology-Too lwell 6 I Work Phone: 10.0 {x10E9/L} 4.4 - 11.3 MG-Gastroe n terology-Too lwell 6 I Work Phone: 89 mg/dL 74 - 99 MG-Gastroen terology-Too lwell 6 [facility] Work Phone: 161 mg/dL above high threshold 74 - 99 MG-Gastroen terology-Too lwell 6 [facility] Work Phone: 164 mg/dL above high threshold 74 - 99 MG-Gastroen terology-Too lwell 6 I Work Phone: RENAL FUNCTION PANELon 07-24 Albumin [Mass/Vol] 3.3 g/dL Low 3.4 - 5.0 [facility] Comment on above: Performed By: #### R ENAL ####[id number] [place] [address] Anion gap [Moles/Vol] 12 mmol/L Normal 10 - 20 [facility] Comment on above: Performed By: #### R ENAL ####[id number] [place] [address] Calcium [Mass/Vol] 8.3 mg/dL Low 8.6 - 10.6 [facility] Comment on above: Performed By: #### R ENAL ####[id number] [place] [address] Chloride [Moles/Vol] 95 mmol/L Low 98 - 107 [facility] Comment on above: Performed By: #### R ENAL ####[id number] [place] [address] Creatinine [Mass/Vol] 1.40 mg/dL High 0.50 - 1.05 [facility] Comment on above: Performed By: #### R ENAL ####[id number] [place] [address] GFR/1.73 sq M.predicted among non-blacks MDRD (S/P/Bld) [Vol rate/Area] 43 mL/min/{1.73_m2} Abnormal >90 [facility] Comment on above: Result Comment: CALC ULATIONS OF ESTIMATED GFR ARE PERFORMED USING THE 2020 CKD-EPI STUDY REFIT EQUATION WITHOUT THE RACE VARIABLE FOR THE IDMS-TRACEABLE CREATININE METHODS.https://jasn.asnjournals.org/content// ASN.8220937386 Performed By: #### R ENAL ####[id number] [place] [address] Glucose [Mass/Vol] 166 mg/dL High 74 - 99 [facility] Comment on above: Performed By: #### R ENAL ####[id number] [place] [address] HCO3 (Bld) [Moles/Vol] 31 mmol/L Normal 21 - 32 [facility] Comment on above: Performed By: #### R ENAL ####[id number] [place] [address] Phosphate [Mass/Vol] 4.1 mg/dL Normal 2.5 - 4.9 [facility] Comment on above: Result Comment: The performance characteristics of phosphorus testing in heparinized plasma have been validated by the individual laboratory site where testing is performed. Testing on heparinized plasma is not approved by the FDA; however, such approval is not necessary. Performed By: #### R ENAL ####[id number] [place] [address] Potassium [Moles/Vol] 4.5 mmol/L Normal 3.5 - 5.3 [facility] Comment on above: Performed By: #### R ENAL ####[id number] [place] [address] Sodium [Moles/Vol] 133 mmol/L Low 136 - 145 [facility] Comment on above: Performed By: #### R ENAL ####[id number] [place] [address] Urea nitrogen [Mass/Vol] 32 mg/dL High 6 - 23 [facility] Comment on above: Performed By: #### R ENAL ####[id number] [place] [address] Renal Function Panelon 11-12 -2022 Albumin BCP dye [Mass/Vol] 3.3 g/dL below low threshold 3.4 - 5.0 MG-Gastroen terology-Too lwell 6 [facility] Work Phone: Calcium [Mass/Vol] 8.3 mg/dL below low threshold 8.6 - 10.6 MG-Gastroen terology-Too lwell 6 [facility] Work Phone: Chloride [Moles/Vol] 95 mmol/L below low threshold 98 - 107 MG-Gastroen terology-Too lwell 6 [facility] Work Phone: CO2 [Moles/Vol] 31 mmol/L 21 - 32 MG-Gastro en terology-Too lwell 6 I Work Phone: Creatinine [Mass/Vol] 1.40 mg/dL above high threshold See Below MG-Gastroen terology-Oto lwell 6 I Work Phone: Comment on above: Reference Range: 0.5 0 - 1.05 Glucose [Mass/Vol] 166 mg/dL above high threshold 74 - 99 MG-Gastroen terology-Too lwell 6 I Work Phone: Phosphate [Mass/Vol] 4.1 mg/dL 2.5 - 4.9 MG-G astroen terology-Too lwell 6 I Work Phone: Comment on above: The performance juan a acteristics of phosphorus testing in heparinized plasma have been validated by the individual laboratory site where testing is performed. Testing on heparinized plasma is not approved by the FDA; however, such approval is not necessary. Potassium [Moles/Vol] 4.5 mmol/L 3.5 - 5.3 MG- Gastroen terology-Too lwell 6 I Work Phone: Sodium [Moles/Vol] 133 mmol/L below low threshold 136 - 145 MG-Gastroen terology-Too lwell 6 [facility] Work Phone: Urea nitrogen [Mass/Vol] 32 mg/dL above high threshold 6 - 23 MG-Gastroen terology-Too lwell 6 [facility] Work Phone: Renal Function Panel 43 {mL/min/1.73m2} Abnormal >90 MG-Gastroen terology-Too lwell 6 I Work Phone: Comment on above: CALCULATIONS OF LASHAWN MATED GFR ARE PERFORMED USING THE 2020 CKD-EPI STUDY REFIT EQUATION WITHOUT THE RACE VARIABLE FOR THE IDMS-TRACEABLE CREATININE METHODS.https://jasn.asnjournals.org/content// ASN.3986277957 Renal Function Panel 12 mmol/L 10 - 20 MG-G astroen terology-Too lwell 6 I Work Phone: ANTI PF4 PATH REVIEWon 07-23 PATH REVIEW-HIT ASSAY KIRT Normal [facility] Comment on above: Result Comment: By h er/his signature above, the Pathologist listed as making the final interpretation certifies that she/he has personally reviewed this case. Performed By: #### P R31 ####[id number] [place] [address] ANTI-PLT FACTOR 4 AB WITH SE ROTONIN RELEASE ASSAY REFLEXon 07-23-2022 INTERPRETATION Negative Normal [facility] Comment on above: Result Comment: ANTI -PLATELET FACTOR 4 ANTIBODY IS NOTDETECTED BY RADHA ASSAY.THESE RESULTS SHOULD BE USED IN CONJUNCTIONWITH CLINICAL FINDINGS.CLINICAL CORRELATION IS RECOMMENDED. Performed By: #### A NPTR ####[id number] [place] [address] SERUM+PLT FACTOR 4 0.111 OD UNITS Normal <0.400 [facility] Comment on above: Performed By: #### A NPTR ####[id number] [place] [address] CBCon 07-23-2022 Erythrocyte distribution width (RBC) [Ratio] 16.5 % High 11.5 - 14.5 [facility] Comment on above: Performed By: #### C BC ####[id number] [place] [address] Hematocrit (Bld) [Volume fraction] 32.5 % Low 36.0 - 46.0 [facility] Comment on above: Performed By: #### C BC ####[id number] [place] [address] Hemoglobin (Bld) [Mass/Vol] 10.2 g/dL Low 12.0 - 16.0 [facility] Comment on above: Performed By: #### C BC ####[id number] [place] [address] MCHC (RBC) [Mass/Vol] 31.4 g/dL Low 32.0 - 36.0 [facility] Comment on above: Performed By: #### C BC ####[id number] [place] [address] MCV (RBC) [Entitic vol] 94 fL Normal 80 - 100 [facility] Comment on above: Performed By: #### C BC ####[id number] [place] [address] NUCLEATED RBC 0.0 /100 WBC Normal 0.0-0.0 [facility] Comment on above: Performed By: #### C BC ####[id number] [place] [address] Platelets (Bld) [#/Vol] 139 10*3/uL Low 150 - 450 [facility] Comment on above: Performed By: #### C BC ####[id number] [place] [address] RBC 3.47 x10E12/L Low 4.00 - 5.20 [facility] Comment on above: Performed By: #### C BC ####[id number] [place] [address] WBC (Bld) [#/Vol] 8.4 10*3/uL Normal 4.4 - 11.3 [facility] Comment on above: Performed By: #### C BC ####[id number] [place] [address] Erythrocyte distribution width (RBC) [Ratio] 16.2 % High 11.5 - 14.5 [facility] Comment on above: Performed By: #### C BC ####[id number] [place] [address] Hematocrit (Bld) [Volume fraction] 29.3 % Low 36.0 - 46.0 [facility] Comment on above: Performed By: #### C BC ####[id number] [place] [address] Hemoglobin (Bld) [Mass/Vol] 9.3 g/dL Low 12.0 - 16.0 [facility] Comment on above: Performed By: #### C BC ####[id number] [place] [address] MCHC (RBC) [Mass/Vol] 31.7 g/dL Low 32.0 - 36.0 [facility] Comment on above: Performed By: #### C BC ####[id number] [place] [address] MCV (RBC) [Entitic vol] 90 fL Normal 80 - 100 [facility] Comment on above: Performed By: #### C BC ####[id number] [place] [address] NUCLEATED RBC 0.0 /100 WBC Normal 0.0-0.0 [facility] Comment on above: Performed By: #### C BC ####[id number] [place] [address] Platelets (Bld) [#/Vol] 111 10*3/uL Low 150 - 450 [facility] Comment on above: Performed By: #### C BC ####[id number] [place] [address] RBC 3.26 x10E12/L Low 4.00 - 5.20 [facility] Comment on above: Performed By: #### C BC ####[id number] [place] [address] WBC (Bld) [#/Vol] 8.8 10*3/uL Normal 4.4 - 11.3 [facility] Comment on above: Performed By: #### C BC ####[id number] [place] [address] Erythrocyte distribution width (RBC) [Ratio] 17.0 % High 11.5 - 14.5 [facility] Comment on above: Performed By: #### C BC ####[id number] [place] [address] Hematocrit (Bld) [Volume fraction] 29.7 % Low 36.0 - 46.0 [facility] Comment on above: Performed By: #### C BC ####[id number] [place] [address] Hemoglobin (Bld) [Mass/Vol] 8.8 g/dL Low 12.0 - 16.0 [facility] Comment on above: Performed By: #### C BC ####[id number] [place] [address] MCHC (RBC) [Mass/Vol] 29.6 g/dL Low 32.0 - 36.0 [facility] Comment on above: Performed By: #### C BC ####[id number] [place] [address] MCV (RBC) [Entitic vol] 95 fL Normal 80 - 100 U [facility] Comment on above: Performed By: #### C BC ####[id number] [place] [address] NUCLEATED RBC 0.0 /100 WBC Normal 0.0-0.0 [facility] Comment on above: Performed By: #### C BC ####[id number] [place] [address] Platelets (Bld) [#/Vol] 111 10*3/uL Low 150 - 450 [facility] Comment on above: Performed By: #### C BC ####[id number] [place] [address] RBC 3.14 x10E12/L Low 4.00 - 5.20 [facility] Comment on above: Performed By: #### C BC ####[id number] [place] [address] WBC (Bld) [#/Vol] 9.7 10*3/uL Normal 4.4 - 11.3 [facility] Comment on above: Performed By: #### C BC ####[id number] [place] [address] Clinical Event Note-EGD with Moderate Sedationon 07-23-2022 Clinical Event Note-EGD with Moderate Sedation Normal [facility] Daily Progress Note-Cardiolo gyon 07-23-2022 Daily Progress Note-Cardiology Normal [facility] Daily Progress Note-Electrop hysiologyon 07-23-2022 Daily Progress Note-Electrophysiology Normal [facility] Daily Progress Note-Endocrin ologyon 07-23-2022 Daily Progress Note-Endocrinology Normal [facility] Daily Progress Note-Gastroen terologyon 07-23-2022 Daily Progress Note-Gastroenterology Normal [facility] EMR ADDONon 07-23-2022 ADDON CONFIRMATION REQUEST REC'D Normal [facility] Comment on above: Performed By: #### E MRAD ####NO LOCATION NEEDED GLUCOSE-POCTon 07-23-2022 Glucose [Mass/Vol] 191 mg/dL High 74 - 99 [facility] Comment on above: Performed By: #### G MANJULA ####[id number] [place] [address] Glucose [Mass/Vol] 159 mg/dL High 74 - 99 [facility] Comment on above: Performed By: #### G MANJULA ####[id number] [place] [address] Glucose [Mass/Vol] 162 mg/dL High 74 - 99 [facility] Comment on above: Performed By: #### G MANJULA ####[id number] [place] [address] Glucose [Mass/Vol] 193 mg/dL High 74 - 99 [facility] Comment on above: Performed By: #### G MANJULA ####[id number] [place] [address] Laboratory - Hematology and Cell countson 07-23-2022 Hematocrit (Bld) [Volume fraction] 32.5 % below low threshold See Below [facility] Work Phone: Comment on above: Reference Range: 36. 0 - 46.0 Hemoglobin (Bld) [Mass/Vol] 10.2 g/dL below low threshold See Below [facility] Work Phone: Comment on above: Reference Range: 12. 0 - 16.0 Platelets (Bld) [#/Vol] 139 10*3/uL below lo w threshold 150 - 450 [facility] Work Phone: RBC (Bld) [#/Vol] 3.47 {x10E12/L} below low threshold See Below [facility] Work Phone: Comment on above: Reference Range: 4.0 0 - 5.20 Hematocrit (Bld) [Volume fraction] 29.3 % below low threshold See Below [facility] Work Phone: Comment on above: Reference Range: 36. 0 - 46.0 Hemoglobin (Bld) [Mass/Vol] 9.3 g/dL below low threshold See Below [facility] Work Phone: Comment on above: Reference Range: 12. 0 - 16.0 Platelets (Bld) [#/Vol] 111 10*3/uL below lo w threshold 150 - 450 [facility] Work Phone: RBC (Bld) [#/Vol] 3.26 {x10E12/L} below low threshold See Below [facility] Work Phone: Comment on above: Reference Range: 4.0 0 - 5.20 MAGNESIUMon 07-23-2022 Magnesium [Mass/Vol] 2.37 mg/dL Normal 1.60 - 2.40 [facility] Comment on above: Performed By: #### M G ####[id number] [place] [address] Magnesium [Mass/Vol] 1.40 mg/dL Low 1.60 - 2.40 [facility] Comment on above: Performed By: #### M Guillermo ####[id number] [place] [address] Magnesium, Serumon Magnesium [Mass/Vol] 2.37 mg/dL See Below [facility]roen [facility] Work Phone: Comment on above: Reference Range: 1.6 0 - 2.40 No Panel Informationon 07-23 191 mg/dL above high threshold 74 - 99 [facility] Work Phone: 16.5 % above high threshold See Below [facility] Work Phone: Comment on above: Reference Range: 11. 5 - 14.5 31.4 g/dL below low threshold See Below [facility] Work Phone: Comment on above: Reference Range: 32. 0 - 36.0 94 fL 80 - 100 [facility] Work Phone: 0.0 {/100_WBC} 0.0-0.0 [facility]roe n [facility] Work Phone: 8.4 {x10E9/L} 4.4 - 11.3 [facility] Work Phone: 159 mg/dL above high threshold 74 - 99 [facility] Work Phone: 162 mg/dL above high threshold 74 - 99 [facility] Work Phone: 193 mg/dL above high threshold 74 - 99 [facility] Work Phone: 16.2 % above high threshold See Below [facility] Work Phone: Comment on above: Reference Range: 11. 5 - 14.5 31.7 g/dL below low threshold See Below [facility] Work Phone: Comment on above: Reference Range: 32. 0 - 36.0 90 fL 80 - 100 [facility] Work Phone: 0.0 {/100_WBC} 0.0-0.0 [facility] n [facility] Work Phone: 8.8 {x10E9/L} 4.4 - 11.3 [facility] Work Phone: RENAL FUNCTION PANELon 07-23 Albumin [Mass/Vol] 3.2 g/dL Low 3.4 - 5.0 [facility] Comment on above: Performed By: #### R ENAL ####[id number] [place] [address] Anion gap [Moles/Vol] 10 mmol/L Normal 10 - 20 [facility] Comment on above: Performed By: #### R ENAL ####[id number] [place] [address] Calcium [Mass/Vol] 8.4 mg/dL Low 8.6 - 10.6 [facility] Comment on above: Performed By: #### R ENAL ####[id number] [place] [address] Chloride [Moles/Vol] 95 mmol/L Low 98 - 107 [facility] Comment on above: Performed By: #### R ENAL ####[id number] [place] [address] Creatinine [Mass/Vol] 1.30 mg/dL High 0.50 - 1.05 [facility] Comment on above: Performed By: #### R ENAL ####[id number] [place] [address] GFR/1.73 sq M.predicted among non-blacks MDRD (S/P/Bld) [Vol rate/Area] 47 mL/min/{1.73_m2} Abnormal >90 [facility] Comment on above: Result Comment: CALC ULATIONS OF ESTIMATED GFR ARE PERFORMED USING THE 2020 CKD-EPI STUDY REFIT EQUATION WITHOUT THE RACE VARIABLE FOR THE IDMS-TRACEABLE CREATININE METHODS.https://jasn.asnjournals.org/content/early/ ASN.7884384970 Performed By: #### R ENAL ####[id number] [place] [address] Glucose [Mass/Vol] 156 mg/dL High 74 - 99 [facility] Comment on above: Performed By: #### R ENAL ####[id number] [place] [address] HCO3 (Bld) [Moles/Vol] 32 mmol/L Normal 21 - 32 [facility] Comment on above: Performed By: #### R ENAL ####[id number] [place] [address] Phosphate [Mass/Vol] 3.1 mg/dL Normal 2.5 - 4.9 [facility] Comment on above: Result Comment: The performance characteristics of phosphorus testing in heparinized plasma have been validated by the individual laboratory site where testing is performed. Testing on heparinized plasma is not approved by the FDA; however, such approval is not necessary. Performed By: #### R ENAL ####[id number] [place] [address] Potassium [Moles/Vol] 4.0 mmol/L Normal 3.5 - 5.3 [facility] Comment on above: Performed By: #### R ENAL ####[id number] [place] [address] Sodium [Moles/Vol] 133 mmol/L Low 136 - 145 [facility] Comment on above: Performed By: #### R ENAL ####[id number] [place] [address] Urea nitrogen [Mass/Vol] 36 mg/dL High 6 - 23 [facility] Comment on above: Performed By: #### R ENAL ####[id number] [place] [address] Rehab Note-physical therapyo n 07-23-2022 Rehab Note-physical therapy Normal [facility] Renal Function Panelon 07-23 Albumin BCP dye [Mass/Vol] 3.2 g/dL below low threshold 3.4 - 5.0 [facility] Work Phone: Calcium [Mass/Vol] 8.4 mg/dL below low threshold 8.6 - 10.6 [facility] Work Phone: Chloride [Moles/Vol] 95 mmol/L below low threshold 98 - 107 [facility] Work Phone: CO2 [Moles/Vol] 32 mmol/L 21 - 32 [facility] Work Phone: Creatinine [Mass/Vol] 1.30 mg/dL above high threshold See Below [facility] Work Phone: Comment on above: Reference Range: 0.5 0 - 1.05 Glucose [Mass/Vol] 156 mg/dL above high threshold 74 - 99 [facility] Work Phone: Phosphate [Mass/Vol] 3.1 mg/dL 2.5 - 4.9 [facility] Work Phone: Comment on above: The performance juan a acteristics of phosphorus testing in heparinized plasma have been validated by the individual laboratory site where testing is performed. Testing on heparinized plasma is not approved by the FDA; however, such approval is not necessary. Potassium [Moles/Vol] 4.0 mmol/L 3.5 - 5.3 [facility] Work Phone: Sodium [Moles/Vol] 133 mmol/L below low threshold 136 - 145 [facility] Work Phone: Urea nitrogen [Mass/Vol] 36 mg/dL above high threshold 6 - 23 [facility] Work Phone: Renal Function Panel 47 {mL/min/1.73m2} Abnormal >90 [facility] Work Phone: Comment on above: CALCULATIONS OF LASHAWN MATED GFR ARE PERFORMED USING THE 2020 CKD-EPI STUDY REFIT EQUATION WITHOUT THE RACE VARIABLE FOR THE IDMS-TRACEABLE CREATININE METHODS.https://jasn.asnjournals.org/content// ASN.7711784686 Renal Function Panel 10 mmol/L 10 - 20 [facility] I Work Phone: ABO/RH GROUP TESTon 07-22-20 22 ABO TYPE B Normal [facility] Comment on above: Performed By: #### V ERAB ####[id number] [place] [address] RH TYPE Positive Normal [facility] Comment on above: Performed By: #### V ERAB ####[id number] [place] [address] CBCon 07-22-2022 Erythrocyte distribution width (RBC) [Ratio] 16.2 % High 11.5 - 14.5 [facility] Comment on above: Performed By: #### C BC ####[id number] [place] [address] Hematocrit (Bld) [Volume fraction] 26.0 % Low 36.0 - 46.0 [facility] Comment on above: Performed By: #### C BC ####[id number] [place] [address] Hemoglobin (Bld) [Mass/Vol] 8.3 g/dL Low 12.0 - 16.0 [facility] Comment on above: Performed By: #### C BC ####[id number] [place] [address] MCHC (RBC) [Mass/Vol] 31.9 g/dL Low 32.0 - 36.0 [facility] Comment on above: Performed By: #### C BC ####[id number] [place] [address] MCV (RBC) [Entitic vol] 91 fL Normal 80 - 100 [facility] Comment on above: Performed By: #### C BC ####[id number] [place] [address] NUCLEATED RBC 0.0 /100 WBC Normal 0.0-0.0 [facility] Comment on above: Performed By: #### C BC ####[id number] [place] [address] Platelets (Bld) [#/Vol] 107 10*3/uL Low 150 - 450 [facility] Comment on above: Performed By: #### C BC ####[id number] [place] [address] RBC 2.87 x10E12/L Low 4.00 - 5.20 [facility] Comment on above: Performed By: #### C BC ####[id number] [place] [address] WBC (Bld) [#/Vol] 8.7 10*3/uL Normal 4.4 - 11.3 [facility] Comment on above: Performed By: #### C BC ####[id number] [place] [address] Erythrocyte distribution width (RBC) [Ratio] 16.7 % High 11.5 - 14.5 [facility] Comment on above: Performed By: #### C BC ####[id number] [place] [address] Hematocrit (Bld) [Volume fraction] 22.2 % Low 36.0 - 46.0 [facility] Comment on above: Performed By: #### C BC ####[id number] [place] [address] Hemoglobin (Bld) [Mass/Vol] 6.7 g/dL Low 12.0 - 16.0 [facility] Comment on above: Performed By: #### C BC ####[id number] [place] [address] MCHC (RBC) [Mass/Vol] 30.2 g/dL Low 32.0 - 36.0 [facility] Comment on above: Performed By: #### C BC ####[id number] [place] [address] MCV (RBC) [Entitic vol] 92 fL Normal 80 - 100 [facility] Comment on above: Performed By: #### C BC ####[id number] [place] [address] NUCLEATED RBC 0.0 /100 WBC Normal 0.0-0.0 [facility] Comment on above: Performed By: #### C BC ####[id number] [place] [address] Platelets (Bld) [#/Vol] 106 10*3/uL Low 150 - 450 [facility] Comment on above: Performed By: #### C BC ####[id number] [place] [address] RBC 2.42 x10E12/L Low 4.00 - 5.20 [facility] Comment on above: Performed By: #### C BC ####[id number] [place] [address] WBC (Bld) [#/Vol] 7.8 10*3/uL Normal 4.4 - 11.3 [facility] Comment on above: Performed By: #### C BC ####[id number] [place] [address] Clinical Event Note-Pt did n ot come for echoon 07-22-2022 Clinical Event Note-Pt did not come for echo Normal [facility] Consult-Gastroenterologyon 1 09-21-2021 Consult-Gastroenterolog y Normal [facility] Daily Progress Note-Cardiolo gyon 07-22-2022 Daily Progress Note-Cardiology Normal [facility] Daily Progress Note-Electrop hysiologyon 07-22-2022 Daily Progress Note-Electrophysiology Normal [facility] Daily Progress Note-Endocrin ologyon 07-22-2022 Daily Progress Note-Endocrinology Normal [facility] Discharge [id number] Discharge Profile2 Normal [facility] Electrocardiogram 12 Leadon 07-22-2022 Electrocardiogram 12 Lead Normal [facility] GLUCOSE-POCTon 07-22-2022 Glucose [Mass/Vol] 134 mg/dL High 74 - 99 [facility] Comment on above: Performed By: #### G MANJULA ####[id number] [place] [address] Glucose [Mass/Vol] 183 mg/dL High 74 - 99 [facility] Comment on above: Performed By: #### G MANJULA ####[id number] [place] [address] Glucose [Mass/Vol] 219 mg/dL High 74 - 99 [facility] Comment on above: Performed By: #### G MANJULA ####[id number] [place] [address] HEPATIC FUNCTION PANELon Albumin [Mass/Vol] 3.1 g/dL Low 3.4 - 5.0 [facility] Comment on above: Performed By: #### H EPFP ####[id number] [place] [address] Performed By: #### R ENAL ####[id number] [place] [address] ALP [Catalytic activity/Vol] 70 U/L Normal 33 - 136 [facility] Comment on above: Performed By: #### H EPFP ####[id number] [place] [address] ALT [Catalytic activity/Vol] 33 U/L Normal 7 - 45 [facility] Comment on above: Result Comment: Radha ents treated with Sulfasalazine may generate falsely decreased results for ALT. Performed By: #### H EPFP ####[id number] [place] [address] AST [Catalytic activity/Vol] 25 U/L Normal 9 - 39 [facility] Comment on above: Performed By: #### H EPFP ####[id number] [place] [address] Bilirubin [Mass/Vol] 1.3 mg/dL High 0.0 - 1.2 [facility] Comment on above: Performed By: #### H EPFP ####[id number] [place] [address] Bilirubin.indirect [Mass/Vol] 0.4 mg/dL High 0.0 - 0.3 [facility] Comment on above: Performed By: #### H EPFP ####[id number] [place] [address] Protein [Mass/Vol] 5.0 g/dL Low 6.4 - 8.2 [facility] Comment on above: Performed By: #### H EPFP ####[id number] [place] [address] ALBUMIN Canceled Normal [facility] Comment on above: Order Comment: TEST HEPATIC FUNCTION PANEL WAS CANCELLED, 07/22/2022 08:07 Performed By: #### H EPFP ####[id number] [place] [address] ALKALINE PHOSPHATASE Canceled Normal [facility] Comment on above: Order Comment: TEST HEPATIC FUNCTION PANEL WAS CANCELLED, 07/22/2022 08:07 Performed By: #### H EPFP ####[id number] [place] [address] ALT Canceled Normal [facility] Comment on above: Order Comment: TEST HEPATIC FUNCTION PANEL WAS CANCELLED, 07/22/2022 08:07 Result Comment: Radha ents treated with Sulfasalazine may generate falsely decreased results for ALT. Performed By: #### H EPFP ####[id number] [place] [address] AST Canceled Normal [facility] Comment on above: Order Comment: TEST HEPATIC FUNCTION PANEL WAS CANCELLED, 07/22/2022 08:07 Performed By: #### H EPFP ####[id number] [place] [address] BILIRUBIN,DIRECT Canceled Normal [facility] Comment on above: Order Comment: TEST HEPATIC FUNCTION PANEL WAS CANCELLED, 07/22/2022 08:07 Performed By: #### H EPFP ####[id number] [place] [address] BILIRUBIN,TOTAL Canceled Normal [facility] Comment on above: Order Comment: TEST HEPATIC FUNCTION PANEL WAS CANCELLED, 07/22/2022 08:07 Performed By: #### H EPFP ####[id number] [place] [address] TOTAL PROTEIN Canceled Normal [facility] Comment on above: Order Comment: TEST HEPATIC FUNCTION PANEL WAS CANCELLED, 07/22/2022 08:07 Performed By: #### H EPFP ####[id number] [place] [address] Hepatic Function Panelon Albumin BCP dye [Mass/Vol] 3.1 g/dL below low threshold 3.4 - 5.0 [facility] 6 [facility] Work Phone: ALP [Catalytic activity/Vol] 70 U/L 33 - 136 [facility] 6 [facility] Work Phone: ALT With P-5'-P [Catalytic activity/Vol] 33 U/L 7 - 45 [facility] 6 [facility] Work Phone: Comment on above: Patients treated wit h Sulfasalazine may generate falsely decreased results for ALT. AST With P-5'-P [Catalytic activity/Vol] 25 U/L 9 - 39 [facility] 6 [facility] Work Phone: Bilirubin [Mass/Vol] 1.3 mg/dL above high threshold 0.0 - 1.2 [facility] I Work Phone: Bilirubin.direct [Mass/Vol] 0.4 mg/dL above high threshold 0.0 - 0.3 [facility] Work Phone: Protein [Mass/Vol] 5.0 g/dL below low threshold 6.4 - 8.2 [facility] I Work Phone: Laboratory - Blood bankon ABO group Nom (Bld) B [facility] 6 [facility] Work Phone: Rh immune globulin screen (Bld) [Interp] Positive [facility] 6 [facility] Work Phone: ABO group Nom (Bld) B [facility] 6 [facility] Work Phone: Blood group antibody screen Ql Negative [facility] Work Phone: Rh immune globulin screen (Bld) [Interp] Positive [facility] 6 I Work Phone: Laboratory - Hematology and Cell countson 07-22-2022 Hematocrit (Bld) [Volume fraction] 29.7 % below low threshold See Below [facility] Work Phone: Comment on above: Reference Range: 36. 0 - 46.0 Hemoglobin (Bld) [Mass/Vol] 8.8 g/dL below low threshold See Below [facility] Work Phone: Comment on above: Reference Range: 12. 0 - 16.0 Platelets (Bld) [#/Vol] 111 10*3/uL below lo w threshold 150 - 450 [facility] Work Phone: RBC (Bld) [#/Vol] 3.14 {x10E12/L} below low threshold See Below [facility] I Work Phone: Comment on above: Reference Range: 4.0 0 - 5.20 Hematocrit (Bld) [Volume fraction] 26.0 % below low threshold See Below [facility] Work Phone: Comment on above: Reference Range: 36. 0 - 46.0 Hemoglobin (Bld) [Mass/Vol] 8.3 g/dL below low threshold See Below [facility] Work Phone: Comment on above: Reference Range: 12. 0 - 16.0 Platelets (Bld) [#/Vol] 107 10*3/uL below lo w threshold 150 - 450 [facility] Work Phone: RBC (Bld) [#/Vol] 2.87 {x10E12/L} below low threshold See Below [facility] Work Phone: Comment on above: Reference Range: 4.0 0 - 5.20 Hematocrit (Bld) [Volume fraction] 22.2 % below low threshold See Below [facility] Work Phone: Comment on above: Reference Range: 36. 0 - 46.0 Hemoglobin (Bld) [Mass/Vol] 6.7 g/dL below low threshold See Below [facility] Work Phone: Comment on above: Reference Range: 12. 0 - 16.0 Platelets (Bld) [#/Vol] 106 10*3/uL below lo w threshold 150 - 450 [facility] Work Phone: RBC (Bld) [#/Vol] 2.42 {x10E12/L} below low threshold See Below [facility] Work Phone: Comment on above: Reference Range: 4.0 0 - 5.20 Magnesium, Serumon 2 Magnesium [Mass/Vol] 1.40 mg/dL below low threshold See Below [facility] Work Phone: Comment on above: Reference Range: 1.6 0 - 2.40 No Panel Informationon 07-22 17.0 % above high threshold See Below [facility] Work Phone: Comment on above: Reference Range: 11. 5 - 14.5 29.6 g/dL below low threshold See Below [facility] Work Phone: Comment on above: Reference Range: 32. 0 - 36.0 95 fL 80 - 100 [facility] Work Phone: 0.0 {/100_WBC} 0.0-0.0 [facility] Work Phone: 9.7 {x10E9/L} 4.4 - 11.3 [facility] Work Phone: 16.2 % above high threshold See Below [facility] Work Phone: Comment on above: Reference Range: 11. 5 - 14.5 31.9 g/dL below low threshold See Below [facility] Work Phone: Comment on above: Reference Range: 32. 0 - 36.0 91 fL 80 - 100 [facility] Work Phone: 0.0 {/100_WBC} 0.0-0.0 [facility] Work Phone: 8.7 {x10E9/L} 4.4 - 11.3 [facility] Work Phone: ORDER RECD [facility] Work Phone: 134 mg/dL above high threshold 74 - 99 [facility] Work Phone: [phone] mg/dL above high threshold 74 - 99 [facility] Work Phone: [phone] Negative [facility] Work Phone: Comment on above: ANTI-PLATELET FACTOR 4 ANTIBODY IS NOTDETECTED BY RADHA ASSAY.THESE RESULTS SHOULD BE USED IN CONJUNCTIONWITH CLINICAL FINDINGS.CLINICAL CORRELATION IS RECOMMENDED. 0.111 {OD_UNITS} <0.400 [facility] Work Phone: ORDER RECD [facility] Work Phone: [phone] 16.7 % above high threshold See Below [facility] Work Phone: [phone] Comment on above: Reference Range: 11. 5 - 14.5 30.2 g/dL below low threshold See Below [facility] Work Phone: Comment on above: Reference Range: 32. 0 - 36.0 92 fL 80 - 100 [facility] Work Phone: 0.0 {/100_WBC} 0.0-0.0 [facility] Work Phone: 7.8 {x10E9/L} 4.4 - 11.3 [facility] Work Phone: 219 mg/dL above high threshold 74 - 99 [facility] Work Phone: Pathologist Review Anti PF4o n 07-22-2022 Pathologist Review Anti PF4 H.VARGAS [facility] Work Phone: Comment on above: By her/his signature above, the Pathologist listed as making the final interpretation certifies that she/he has personally reviewed this case. RENAL FUNCTION PANELon 07-22 Anion gap [Moles/Vol] 11 mmol/L Normal 10 - 20 [facility] Comment on above: Performed By: #### R ENAL ####[id number] [place] [address] Calcium [Mass/Vol] 8.5 mg/dL Low 8.6 - 10.6 [facility] Comment on above: Performed By: #### R ENAL ####[id number] [place] [address] Chloride [Moles/Vol] 92 mmol/L Low 98 - 107 [facility] Comment on above: Performed By: #### R ENAL ####[id number] [place] [address] Creatinine [Mass/Vol] 1.56 mg/dL High 0.50 - 1.05 [facility] Comment on above: Performed By: #### R ENAL ####[id number] [place] [address] GFR/1.73 sq M.predicted among non-blacks MDRD (S/P/Bld) [Vol rate/Area] 38 mL/min/{1.73_m2} Abnormal >90 [facility] Comment on above: Result Comment: CALC ULATIONS OF ESTIMATED GFR ARE PERFORMED USING THE 2020 CKD-EPI STUDY REFIT EQUATION WITHOUT THE RACE VARIABLE FOR THE IDMS-TRACEABLE CREATININE METHODS.https://jasn.asnjournals.org/content// ASN.6256894188 Performed By: #### R ENAL ####[id number] [place] [address] Glucose [Mass/Vol] 103 mg/dL High 74 - 99 [facility] Comment on above: Performed By: #### R ENAL ####[id number] [place] [address] HCO3 (Bld) [Moles/Vol] 36 mmol/L High 21 - 32 [facility] Comment on above: Performed By: #### R ENAL ####[id number] [place] [address] Phosphate [Mass/Vol] 3.3 mg/dL Normal 2.5 - 4.9 [facility] Comment on above: Result Comment: The performance characteristics of phosphorus testing in heparinized plasma have been validated by the individual laboratory site where testing is performed. Testing on heparinized plasma is not approved by the FDA; however, such approval is not necessary. Performed By: #### R ENAL ####[id number] [place] [address] Potassium [Moles/Vol] 3.8 mmol/L Normal 3.5 - 5.3 [facility] Comment on above: Performed By: #### R ENAL ####[id number] [place] [address] Sodium [Moles/Vol] 135 mmol/L Low 136 - 145 [facility] Comment on above: Performed By: #### R ENAL ####[id number] [place] [address] Urea nitrogen [Mass/Vol] 56 mg/dL High 6 - 23 [facility] Comment on above: Performed By: #### R ENAL ####[id number] [place] [address] Albumin [Mass/Vol] 3.2 g/dL Low 3.4 - 5.0 [facility] Comment on above: Performed By: #### R ENAL ####[id number] [place] [address] Creatinine [Mass/Vol] 1.51 mg/dL High 0.50 - 1.05 [facility] Comment on above: Performed By: #### R ENAL ####[id number] [place] [address] GFR/1.73 sq M.predicted among non-blacks MDRD (S/P/Bld) [Vol rate/Area] 39 mL/min/{1.73_m2} Abnormal >90 [facility] Comment on above: Result Comment: CALC ULATIONS OF ESTIMATED GFR ARE PERFORMED USING THE 2020 CKD-EPI STUDY REFIT EQUATION WITHOUT THE RACE VARIABLE FOR THE IDMS-TRACEABLE CREATININE METHODS.https://jasn.asnjournals.org/content/early/ ASN.7755121419 Performed By: #### R ENAL ####[id number] [place] [address] Glucose [Mass/Vol] 163 mg/dL High 74 - 99 [facility] Comment on above: Performed By: #### R ENAL ####[id number] [place] [address] Anion gap [Moles/Vol] 20 mmol/L Normal 10 - 20 [facility] Comment on above: Performed By: #### R ENAL ####[id number] [place] [address] Calcium [Mass/Vol] 8.3 mg/dL Low 8.6 - 10.6 [facility] Comment on above: Performed By: #### R ENAL ####[id number] [place] [address] Chloride [Moles/Vol] 91 mmol/L Low 98 - 107 [facility] Comment on above: Performed By: #### R ENAL ####[id number] [place] [address] HCO3 (Bld) [Moles/Vol] 28 mmol/L Normal 21 - 32 [facility] Comment on above: Performed By: #### R ENAL ####[id number] [place] [address] Phosphate [Mass/Vol] 2.3 mg/dL Low 2.5 - 4.9 [facility] Comment on above: Result Comment: The performance characteristics of phosphorus testing in heparinized plasma have been validated by the individual laboratory site where testing is performed. Testing on heparinized plasma is not approved by the FDA; however, such approval is not necessary. Performed By: #### R ENAL ####[id number] [place] [address] Potassium [Moles/Vol] 4.6 mmol/L Normal 3.5 - 5.3 [facility] Comment on above: Performed By: #### R ENAL ####[id number] [place] [address] Sodium [Moles/Vol] 134 mmol/L Low 136 - 145 [facility] Comment on above: Performed By: #### R ENAL ####[id number] [place] [address] Urea nitrogen [Mass/Vol] 76 mg/dL High 6 - 23 [facility] Comment on above: Performed By: #### R ENAL ####[id number] [place] [address] REQUEST-LEUKOREDUCED RED BRIE LSon 07-22-2022 REQUEST-LEUKOREDUCED RED CELLS ORDER RECD Normal [facility] Comment on above: Performed By: #### O ADULT CROSSING GUARD ####[id number] [place] [address] REQUEST-LEUKOREDUCED RED CELLS ORDER RECD Normal [facility] Comment on above: Performed By: #### O ADULT CROSSING GUARD ####[id number] [place] [address] Rehab Note-physical therapyo n 07-22-2022 Rehab Note-physical therapy Normal [facility] Renal Function Panelon 07-22 Calcium [Mass/Vol] 8.5 mg/dL below low threshold 8.6 - 10.6 [facility] Work Phone: Chloride [Moles/Vol] 92 mmol/L below low threshold 98 - 107 [facility] Work Phone: CO2 [Moles/Vol] 36 mmol/L above high threshold 21 - 32 [facility] Work Phone: Creatinine [Mass/Vol] 1.56 mg/dL above high threshold See Below [facility] Work Phone: Comment on above: Reference Range: 0.5 0 - 1.05 Glucose [Mass/Vol] 103 mg/dL above high threshold 74 - 99 [facility] Work Phone: Phosphate [Mass/Vol] 3.3 mg/dL 2.5 - 4.9 [facility] Work Phone: Comment on above: The performance juan a acteristics of phosphorus testing in heparinized plasma have been validated by the individual laboratory site where testing is performed. Testing on heparinized plasma is not approved by the FDA; however, such approval is not necessary. Potassium [Moles/Vol] 3.8 mmol/L 3.5 - 5.3 [facility] Work Phone: Sodium [Moles/Vol] 135 mmol/L below low threshold 136 - 145 [facility] Work Phone: Urea nitrogen [Mass/Vol] 56 mg/dL above high threshold 6 - 23 [facility] Work Phone: Renal Function Panel 38 {mL/min/1.73m2} Abnormal >90 [facility] Work Phone: Comment on above: CALCULATIONS OF LASHAWN MATED GFR ARE PERFORMED USING THE 2020 CKD-EPI STUDY REFIT EQUATION WITHOUT THE RACE VARIABLE FOR THE IDMS-TRACEABLE CREATININE METHODS.https://jasn.asnjournals.org/content/early/ ASN.6776270891 Renal Function Panel 11 mmol/L 10 - 20 [facility] Work Phone: TYPE + SCREENon 07-22-2022 ABO TYPE B Normal [facility] Comment on above: Performed By: #### T +S ####[id number] [place] [address] RH TYPE Positive Normal [facility] Comment on above: Performed By: #### T +S ####[id number] [place] [address] CBCon 07-21-2022 Erythrocyte distribution width (RBC) [Ratio] 16.3 % High 11.5 - 14.5 [facility] Comment on above: Performed By: #### C BC ####[id number] [place] [address] Hematocrit (Bld) [Volume fraction] 25.5 % Low 36.0 - 46.0 [facility] Comment on above: Performed By: #### C BC ####[id number] [place] [address] Hemoglobin (Bld) [Mass/Vol] 7.7 g/dL Low 12.0 - 16.0 [facility] Comment on above: Performed By: #### C BC ####[id number] [place] [address] MCHC (RBC) [Mass/Vol] 30.2 g/dL Low 32.0 - 36.0 [facility] Comment on above: Performed By: #### C BC ####[id number] [place] [address] MCV (RBC) [Entitic vol] 93 fL Normal 80 - 100 [facility] Comment on above: Performed By: #### C BC ####[id number] [place] [address] NUCLEATED RBC 0.0 /100 WBC Normal 0.0-0.0 [facility] Comment on above: Performed By: #### C BC ####[id number] [place] [address] Platelets (Bld) [#/Vol] 112 10*3/uL Low 150 - 450 [facility] Comment on above: Performed By: #### C BC ####[id number] [place] [address] RBC 2.73 x10E12/L Low 4.00 - 5.20 [facility] Comment on above: Performed By: #### C BC ####[id number] [place] [address] WBC (Bld) [#/Vol] 9.7 10*3/uL Normal 4.4 - 11.3 [facility] Comment on above: Performed By: #### C BC ####[id number] [place] [address] HCT Canceled Normal [facility] Comment on above: Order Comment: TEST CBC WAS CANCELLED, 07/21/2022 14:59 NO SPECIMEN RECEIVED IN LAB. Performed By: #### C BC ####[id number] [place] [address] HGB Canceled Normal [facility] Comment on above: Order Comment: TEST CBC WAS CANCELLED, 07/21/2022 14:59 NO SPECIMEN RECEIVED IN LAB. Performed By: #### C BC ####[id number] [place] [address] MCHC Canceled Normal [facility] Comment on above: Order Comment: TEST CBC WAS CANCELLED, 07/21/2022 14:59 NO SPECIMEN RECEIVED IN LAB. Performed By: #### C BC ####[id number] [place] [address] MCV Canceled Normal [facility] Comment on above: Order Comment: TEST CBC WAS CANCELLED, 07/21/2022 14:59 NO SPECIMEN RECEIVED IN LAB. Performed By: #### C BC ####[id number] [place] [address] NUCLEATED RBC Canceled Normal [facility] Comment on above: Order Comment: TEST CBC WAS CANCELLED, 07/21/2022 14:59 NO SPECIMEN RECEIVED IN LAB. Performed By: #### C BC ####[id number] [place] [address] PLT Canceled Normal [facility] Comment on above: Order Comment: TEST CBC WAS CANCELLED, 07/21/2022 14:59 NO SPECIMEN RECEIVED IN LAB. Performed By: #### C BC ####[id number] [place] [address] RBC Canceled Normal [facility] Comment on above: Order Comment: TEST CBC WAS CANCELLED, 07/21/2022 14:59 NO SPECIMEN RECEIVED IN LAB. Performed By: #### C BC ####[id number] [place] [address] RDW-CV Canceled Normal [facility] Comment on above: Order Comment: TEST CBC WAS CANCELLED, 07/21/2022 14:59 NO SPECIMEN RECEIVED IN LAB. Performed By: #### C BC ####[id number] [place] [address] WBC Canceled Normal [facility] Comment on above: Order Comment: TEST CBC WAS CANCELLED, 07/21/2022 14:59 NO SPECIMEN RECEIVED IN LAB. Performed By: #### C BC ####[id number] [place] [address] Clinical Event Note-AHHon Clinical Event Note-AHH Normal [facility] Clinical Event Note-Clinical Event Noteon 07-21-2022 Clinical Event Note-Clinical Event Note Normal [facility] Daily Progress Note-Cardiolo gyon 07-21-2022 Daily Progress Note-Cardiology Normal [facility] Daily Progress Note-Endocrin ologyon 07-21-2022 Daily Progress Note-Endocrinology Normal [facility] GLUCOSE-POCTon 07-21-2022 Glucose [Mass/Vol] 216 mg/dL High 74 - 99 [facility] Comment on above: Performed By: #### G MANJULA ####[id number] [place] [address] HEPARIN ASSAY,UFHon 07-21-20 22 HEPARIN ASSAY,UFH 0.5 IU/mL Normal [facility] Comment on above: Result Comment: The therapeutic reference range for UFH may be either 0.3-0.6 IU/mL or 0.3-0.7 IU/mL based on the clinical setting for anticoagulant therapy and the associated nomogram used. For heparin dosing guidelines based on clinical scenario and Heparin Assay results, please refer to local Pharmacy and the [facility] Guidelines for Anticoagulation therapy available on the [facility] intranet at:[email or web address]_Guidelines_for_[email or web address].aspx Performed By: #### H AUValeria ####[id number] [place] [address] Heparin assay, UFHon 022 Heparin unfractionated Chromogenic method Qn (PPP) 0.5 {IU/mL} [facility] Work Phone: Comment on above: The therapeutic refe rence range for UFH may be either 0.3-0.6 IU/mL or 0.3-0.7 IU/mL based on the clinical setting for anticoagulant therapy and the associated nomogram used. For heparin dosing guidelines based on clinical scenario and Heparin Assay results, please refer to local Pharmacy and the [facility] Guidelines for Anticoagulation therapy available on the [facility] intranet at:[email or web address]_Guidelines_for_[email or web address].aspx Laboratory - Hematology and Cell countson 07-21-2022 Hematocrit (Bld) [Volume fraction] 25.5 % below low threshold See Below [facility] Work Phone: Comment on above: Reference Range: 36. 0 - 46.0 Hemoglobin (Bld) [Mass/Vol] 7.7 g/dL below low threshold See Below [facility] Work Phone: Comment on above: Reference Range: 12. 0 - 16.0 Platelets (Bld) [#/Vol] 112 10*3/uL below lo w threshold 150 - 450 [facility] Work Phone: RBC (Bld) [#/Vol] 2.73 {x10E12/L} below low threshold See Below [facility] Work Phone: Comment on above: Reference Range: 4.0 0 - 5.20 No Panel Informationon 07-21 16.3 % above high threshold See Below [facility] Work Phone: Comment on above: Reference Range: 11. 5 - 14.5 30.2 g/dL below low threshold See Below [facility] Work Phone: Comment on above: Reference Range: 32. 0 - 36.0 93 fL 80 - 100 [facility] Work Phone: 0.0 {/100_WBC} 0.0-0.0 [facility] Work Phone: 9.7 {x10E9/L} 4.4 - 11.3 [facility] Work Phone: 216 mg/dL above high threshold 74 - 99 [facility] Work Phone: OT Evaluation v2-occupationa l therapyon 07-21-2022 OT Evaluation v2-occupational therapy Normal [facility] PT Evaluation v2-physical th erapyon 07-21-2022 PT Evaluation v2-physical therapy Normal [facility] Renal Function Panelon 07-21 Albumin BCP dye [Mass/Vol] 3.2 g/dL below low threshold 3.4 - 5.0 [facility] Work Phone: Calcium [Mass/Vol] 8.3 mg/dL below low threshold 8.6 - 10.6 [facility] Work Phone: Chloride [Moles/Vol] 91 mmol/L below low threshold 98 - 107 [facility] Work Phone: CO2 [Moles/Vol] 28 mmol/L 21 - 32 [facility] Work Phone: Creatinine [Mass/Vol] 1.51 mg/dL above high threshold See Below [facility] Work Phone: Comment on above: Reference Range: 0.5 0 - 1.05 Glucose [Mass/Vol] 163 mg/dL above high threshold 74 - 99 [facility] Work Phone: Phosphate [Mass/Vol] 2.3 mg/dL below low threshold 2.5 - 4.9 [facility] Work Phone: Comment on above: The performance juan a acteristics of phosphorus testing in heparinized plasma have been validated by the individual laboratory site where testing is performed. Testing on heparinized plasma is not approved by the FDA; however, such approval is not necessary. Potassium [Moles/Vol] 4.6 mmol/L 3.5 - 5.3 [facility] Work Phone: Sodium [Moles/Vol] 134 mmol/L below low threshold 136 - 145 [facility] Work Phone: Urea nitrogen [Mass/Vol] 76 mg/dL above high threshold 6 - 23 [facility] Work Phone: Renal Function Panel 39 {mL/min/1.73m2} Abnormal >90 [facility] Work Phone: Comment on above: CALCULATIONS OF LASHAWN MATED GFR ARE PERFORMED USING THE 2020 CKD-EPI STUDY REFIT EQUATION WITHOUT THE RACE VARIABLE FOR THE IDMS-TRACEABLE CREATININE METHODS.https://jasn.asnjournals.org/content// ASN.3579460502 Renal Function Panel 20 mmol/L 10 - 20 [facility] I Work Phone: CALCIUM, IONIZEDon 2 CALCIUM,IONIZED 1.07 mmol/L Low 1.10 - 1.33 [facility] Comment on above: Result Comment: The performance characteristics of ionized calcium tested in heparinized plasma or serum have been validated by the individual laboratory site where testing is performed. Testing on heparinized plasma or serum is not approved by the FDA; however, such approval is not necessary. Performed By: #### I ONC1 ####[id number] [place] [address] CBCon 07-20-2022 Erythrocyte distribution width (RBC) [Ratio] 15.7 % High 11.5 - 14.5 [facility] Comment on above: Performed By: #### C BC ####[id number] [place] [address] Hematocrit (Bld) [Volume fraction] 31.0 % Low 36.0 - 46.0 [facility] Comment on above: Performed By: #### C BC ####[id number] [place] [address] Hemoglobin (Bld) [Mass/Vol] 10.0 g/dL Low 12.0 - 16.0 [facility] Comment on above: Performed By: #### C BC ####[id number] [place] [address] MCHC (RBC) [Mass/Vol] 32.3 g/dL Normal 32.0 - 36.0 [facility] Comment on above: Performed By: #### C BC ####[id number] [place] [address] MCV (RBC) [Entitic vol] 86 fL Normal 80 - 100 [facility] Comment on above: Performed By: #### C BC ####[id number] [place] [address] NUCLEATED RBC 0.0 /100 WBC Normal 0.0-0.0 [facility] Comment on above: Performed By: #### C BC ####[id number] [place] [address] Platelets (Bld) [#/Vol] 159 10*3/uL Normal 150 - 450 [facility] Comment on above: Performed By: #### C BC ####[id number] [place] [address] RBC 3.59 x10E12/L Low 4.00 - 5.20 [facility] Comment on above: Performed By: #### C BC ####[id number] [place] [address] WBC (Bld) [#/Vol] 10.8 10*3/uL Normal 4.4 - 11.3 [facility] Comment on above: Performed By: #### C BC ####[id number] [place] [address] CBC AND DIFFERENTIALon 07-20 % AUTOMATED IMMATURE GRAN 0.4 % Normal 0.0 - 0.9 [facility] Comment on above: Result Comment: Clotilde ture Granulocyte Count (IG) includes promyelocytes, myelocytes and metamyelocytes but does not include bands. Percent differential counts (%) should be interpreted in the context of the absolute cell counts (cells/L). Performed By: #### C BCDF ####[id number] [place] [address] Basophils (Bld) [#/Vol] 0.01 10*3/uL Normal 0.00 - 0.10 [facility] Comment on above: Performed By: #### C BCDF ####[id number] [place] [address] Basophils/100 WBC (Bld) 0.1 % Normal 0.0 - 2.0 [facility] Comment on above: Performed By: #### C BCDF ####[id number] [place] [address] Eosinophils (Bld) [#/Vol] 0.05 10*3/uL Normal 0.00 - 0.70 [facility] Comment on above: Performed By: #### C BCDF ####[id number] [place] [address] Eosinophils/100 WBC (Bld) 0.5 % Normal 0.0 - 6.0 [facility] Comment on above: Performed By: #### C BCDF ####[id number] [place] [address] Erythrocyte distribution width (RBC) [Ratio] 14.7 % High 11.5 - 14.5 [facility] Comment on above: Performed By: #### C BCDF ####[id number] [place] [address] Hematocrit (Bld) [Volume fraction] 30.2 % Low 36.0 - 46.0 [facility] Comment on above: Performed By: #### C BCDF ####[id number] [place] [address] Hemoglobin (Bld) [Mass/Vol] 9.8 g/dL Low 12.0 - 16.0 [facility] Comment on above: Performed By: #### C BCDF ####[id number] [place] [address] Lymphocytes (Bld) [#/Vol] 3.14 10*3/uL Normal 1.20 - 4.80 [facility] Comment on above: Performed By: #### C BCDF ####[id number] [place] [address] Lymphocytes/100 WBC (Bld) 29.1 % Normal 13.0 - 44.0 [facility] Comment on above: Performed By: #### C BCDF ####[id number] [place] [address] MCHC (RBC) [Mass/Vol] 32.5 g/dL Normal 32.0 - 36.0 [facility] Comment on above: Performed By: #### C BCDF ####[id number] [place] [address] MCV (RBC) [Entitic vol] 85 fL Normal 80 - 100 [facility] Comment on above: Performed By: #### C BCDF ####[id number] [place] [address] Monocytes (Bld) [#/Vol] 1.33 10*3/uL High 0.10 - 1.00 [facility] Comment on above: Performed By: #### C BCDF ####[id number] [place] [address] Monocytes/100 WBC (Bld) 12.3 % Normal 2.0 - 10.0 [facility] Comment on above: Performed By: #### C BCDF ####[id number] [place] [address] Neutrophils (Bld) [#/Vol] 6.21 10*3/uL Normal 1.20 - 7.70 [facility] Comment on above: Performed By: #### C BCDF ####[id number] [place] [address] Neutrophils/100 WBC (Bld) 57.6 % Normal 40.0 - 80.0 [facility] Comment on above: Performed By: #### C BCDF ####[id number] [place] [address] NUCLEATED RBC 0.0 /100 WBC Normal 0.0-0.0 [facility] Comment on above: Performed By: #### C BCDF ####[id number] [place] [address] Platelets (Bld) [#/Vol] 146 10*3/uL Low 150 - 450 [facility] Comment on above: Performed By: #### C BCDF ####[id number] [place] [address] RBC 3.57 x10E12/L Low 4.00 - 5.20 [facility] Comment on above: Performed By: #### C BCDF ####[id number] [place] [address] WBC (Bld) [#/Vol] 10.8 10*3/uL Normal 4.4 - 11.3 [facility] Comment on above: Performed By: #### C BCDF ####[id number] [place] [address] COAGULATION SCREENon 022 aPTT Coag (Bld) [Time] 36 s Normal 26 - 39 [facility] Comment on above: Result Comment: THE APTT IS NO LONGER USED FOR MONITORING UNFRACTIONATED HEPARIN THERAPY. FOR MONITORING HEPARIN THERAPY, USE THE HEPARIN ASSAY. Performed By: #### C OAGS ####[id number] [place] [address] PT Coag (PPP) [Time] 18.6 s High 9.8 - 13.4 [facility] Comment on above: Performed By: #### C OAGS ####[id number] [place] [address] PT, INR 1.6 High 0.9 - 1.1 [facility] Comment on above: Performed By: #### C OAGS ####[id number] [place] [address] Calcium, Ionized Levelon Calcium, Ionized Level 1.07 mmol/L below low threshold See Below [facility]ology-Too lwell 6 [facility] Work Phone: Comment on above: Reference Range: 1.1 0 - 1.33 The performance characteristics of ionized calcium tested in heparinized plasma or serum have been validated by the individual laboratory site where testing is performed. Testing on heparinized plasma or serum is not approved by the FDA; however, such approval is not necessary. Clinical Event Noteon 2021 Clinical Event Note Normal [facility] Clinical Event Note Normal [facility] Complete Blood Count + Diffe rentialon 07-20-2022 Hematocrit (Bld) [Volume fraction] 30.2 % below low threshold See Below [facility]-Gastroen [facility]ology-Oto lwell 6 [facility] Work Phone: Comment on above: Reference Range: 36. 0 - 46.0 Hemoglobin (Bld) [Mass/Vol] 9.8 g/dL below low threshold See Below [facility]-Gastroen [facility]ology-Too lwell 6 [facility] Work Phone: Comment on above: Reference Range: 12. 0 - 16.0 Platelets (Bld) [#/Vol] 146 10*3/uL below lo w threshold 150 - 450 [facility]astroen terology-Too lwell [facility] Work Phone: RBC (Bld) [#/Vol] 3.57 {x10E12/L} below low threshold See Below [facility]astro[facility]ology-Too lwell 6 [facility] Work Phone: Comment on above: Reference Range: 4.0 0 - 5.20 Complete Blood Count + Differential 12.3 % 2.0 - 10.0 [facility]well 6 I Work Phone: Complete Blood Count + Differential 29.1 % See Below [facility]ology-Too [facility]well 6 [facility] Work Phone: Comment on above: Reference Range: 13. 0 - 44.0 Complete Blood Count + Differential 0.4 % 0.0 - 0.9 [facility]well 6 I Work Phone: Comment on above: Immature Granulocyte Count (IG) includes promyelocytes, myelocytes and metamyelocytes but does not include bands. Percent differential counts (%) should be interpreted in the context of the absolute cell counts (cells/L). Complete Blood Count + Differential 57.6 % See Below [facility]astro[facility]ology-Too ell 6 [facility] Work Phone: Comment on above: Reference Range: 40. 0 - 80.0 Complete Blood Count + Differential 14.7 % above high threshold See Below [facility]ology-Too [facility]well 6 [facility] Work Phone: Comment on above: Reference Range: 11. 5 - 14.5 Complete Blood Count + Differential 32.5 g/dL See Below [facility]ology-Too lwell 6 [facility] Work Phone: Comment on above: Reference Range: 32. 0 - 36.0 Complete Blood Count + Differential 85 fL 80 - 100 [facility]-Too [facility]well 6 [facility] Work Phone: Complete Blood Count + Differential 0.0 {/100_WBC} 0.0-0.0 [facility]well 6 [facility] Work Phone: Complete Blood Count + Differential 10.8 {x10E9/L} 4.4 - 11.3 [facility]-Too lwell 6 I Work Phone: Complete Blood Count + Differential 0.01 {x10E9/L} See Below [facility]ology-Too lwell 6 I Work Phone: Comment on above: Reference Range: 0.0 0 - 0.10 Complete Blood Count + Differential 0.05 {x10E9/L} See Below [facility]ology-Too lwell 6 I Work Phone: Comment on above: Reference Range: 0.0 0 - 0.70 Complete Blood Count + Differential 1.33 {x10E9/L} above high threshold See Below [facility]ology-Too lwell 6 I Work Phone: Comment on above: Reference Range: 0.1 0 - 1.00 Complete Blood Count + Differential 3.14 {x10E9/L} See Below [facility]ology-Too lwell 6 I Work Phone: Comment on above: Reference Range: 1.2 0 - 4.80 Complete Blood Count + Differential 6.21 {x10E9/L} See Below [facility]ology-Too lwell 6 I Work Phone: Comment on above: Reference Range: 1.2 0 - 7.70 Complete Blood Count + Differential 0.1 % 0.0 - 2.0 [facility]ology-Too lwell 6 [facility] Work Phone: Complete Blood Count + Differential 0.5 % 0.0 - 6.0 [facility]ology-Too lwell 6 [facility] Work Phone: Consult-Electrophysiologyon 07-20-2022 Consult-Electrophysiolo gy Normal [facility] Daily Progress Note - Critic al Care-HF ICUon 07-20-2022 Daily Progress Note - Critical Care-HF ICU Normal [facility] Daily Progress Note-Endocrin ologyon 07-20-2022 Daily Progress Note-Endocrinology Normal [facility] Electrocardiogram 12 Leadon 07-20-2022 Electrocardiogram 12 Lead Normal [facility] Electrocardiogram 12 Lead Normal [facility] GLUCOSE-POCTon 07-20-2022 Glucose [Mass/Vol] 219 mg/dL High 74 - 99 [facility] Comment on above: Performed By: #### G MANJULA ####[id number] [place] [address] Glucose [Mass/Vol] 227 mg/dL High 74 - 99 [facility] Comment on above: Performed By: #### G MANJULA ####[id number] [place] [address] Glucose [Mass/Vol] 228 mg/dL High 74 - 99 [facility] Comment on above: Performed By: #### G MANJULA ####[id number] [place] [address] Glucose [Mass/Vol] 244 mg/dL High 74 - 99 [facility] Comment on above: Performed By: #### G MANJULA ####[id number] [place] [address] Glucose [Mass/Vol] 227 mg/dL High 74 - 99 [facility] Comment on above: Performed By: #### G MANJULA ####[id number] [place] [address] HEPARIN ASSAY,UFHon 07-20-20 22 HEPARIN ASSAY,UFH Canceled Normal [facility] Comment on above: Order Comment: TEST HEPARIN ASSAY,UFH WAS CANCELLED, 07/20/2022 18:29 MISLABELED. Result Comment: The therapeutic reference range for UFH may be either 0.3-0.6 IU/mL or 0.3-0.7 IU/mL based on the clinical setting for anticoagulant therapy and the associated nomogram used. For heparin dosing guidelines based on clinical scenario and Heparin Assay results, please refer to local Pharmacy and the [facility] Guidelines for Anticoagulation therapy available on the [facility] intranet at:[email or web address]/Pages/[facility]_Guidelines_for_Anticoagu.aspx Performed By: #### H AUF ####[id number] [place] [address] HEPARIN ASSAY,UFH 0.6 IU/mL Normal [facility] Comment on above: Result Comment: The therapeutic reference range for UFH may be either 0.3-0.6 IU/mL or 0.3-0.7 IU/mL based on the clinical setting for anticoagulant therapy and the associated nomogram used. For heparin dosing guidelines based on clinical scenario and Heparin Assay results, please refer to local Pharmacy and [facility] Guidelines for Anticoagulation therapy available on the [facility] intranet at:[email or web address]/Pages/[facility]_Guidelines_for_Anticoagu.aspx Performed By: #### H AUF ####[id number] [place] [address] Heparin assay, UFHon 022 Heparin unfractionated Chromogenic method Qn (PPP) Canceled [facility]astro[facility]ology-Too lwell 6 [facility] Work Phone: Comment on above: The therapeutic refe rence range for UFH may be either 0.3-0.6 IU/mL or 0.3-0.7 IU/mL based on the clinical setting for anticoagulant therapy and the associated nomogram used. For heparin dosing guidelines based on clinical scenario and Heparin Assay results, please refer to local Pharmacy and [facility] Guidelines for Anticoagulation therapy available on the [facility] intranet at:[email or web address] [facility]/Pharmacy/Pages/[facility]_Guidelines_for_Anticoagu.aspx Heparin unfractionated Chromogenic method Qn (PPP) 0.6 {IU/mL} [facility]-Gastroen terology-Too lwell 6 [facility] Work Phone: Comment on above: The therapeutic refe rence range for UFH may be either 0.3-0.6 IU/mL or 0.3-0.7 IU/mL based on the clinical setting for anticoagulant therapy and the associated nomogram used. For heparin dosing guidelines based on clinical scenario and Heparin Assay results, please refer to local Pharmacy and [facility] Guidelines for Anticoagulation therapy available on the [facility] intranet at:[email or web address]/Pharmacy/Pages/[facility]_Guidelines_for_Anticoagu.aspx Laboratory - Chemistry and C hemistry - challengeon 07-20-2022 Anion gap 4 (BldMV) [Moles/Vol] 4 mmol/L below low threshold 10 - 25 [facility] 6 I Work Phone: Base excess Calc (BldMV) [Moles/Vol] 14.9 mmol/L [facility]astro[facility]ology-Too lwell 6 I Work Phone: Calcium.ionized (BldMV) [Moles/Vol] 1.06 mmol/L below low threshold See Below [facility]ology-Too lwell 6 [facility] Work Phone: Comment on above: Reference Range: 1.1 0 - 1.33 Chloride [Moles/Vol] 91 mmol/L below low threshold 98 - 107 [facility]-Too [facility]well 6 [facility] Work Phone: CO2 (BldMV) [Partial pressure] 47 {mmHg} [facility]ology-Too lwell 6 [facility] Work Phone: Glucose [Mass/Vol] 222 mg/dL above high threshold 74 - 99 [facility]well 6 [facility] Work Phone: HCO3 (BldMV) [Moles/Vol] 39.3 mmol/L [facility]ology-Too lwell 6 I Work Phone: Lactate (BldMV) [Moles/Vol] 1.9 mmol/L 0.4 - 2.0 [facility]-Too [facility]well 6 I Work Phone: Oxygen (BldMV) [Partial pressure] 35 {mmHg} [facility]ology-Too [facility]well 6 [facility] Work Phone: Oxyhemoglobin (BldMV) [Mass fraction] 50.5 % See Below [facility]-Too [facility]well 6 [facility] Work Phone: Comment on above: Reference Range: 45. 0 - 75.0 pH (BldMV) 7.53 1 [facility]ology-Too [facility]well 6 [facility] Work Phone: Potassium (BldMV) [Moles/Vol] 4.0 mmol/L 3.5 - 5.3 [facility]ology-Too [facility]well 6 [facility] Work Phone: Sodium (BldMV) [Moles/Vol] 130 mmol/L below low threshold 136 - 145 [facility]well 6 [facility] Work Phone: Anion gap 4 (BldMV) [Moles/Vol] 5 mmol/L below low threshold 10 - 25 [facility]well 6 [facility] Work Phone: Base excess Calc (BldMV) [Moles/Vol] 12.4 mmol/L [facility]ology-Too lwell 6 I Work Phone: Calcium.ionized (BldMV) [Moles/Vol] 1.08 mmol/L below low threshold See Below [facility]astroen [facility]ology-Too lwell 6 I Work Phone: Comment on above: Reference Range: 1.1 0 - 1.33 Chloride [Moles/Vol] 93 mmol/L below low threshold 98 - 107 [facility]-Too [facility]well 6 I Work Phone: CO2 (BldMV) [Partial pressure] 41 {mmHg} [facility]ology-Too lwell 6 I Work Phone: Glucose [Mass/Vol] 217 mg/dL above high threshold 74 - 99 [facility]-Too [facility]well 6 [facility] Work Phone: HCO3 (BldMV) [Moles/Vol] 35.9 mmol/L [facility]ology-Too lwell 6 I Work Phone: Lactate (BldMV) [Moles/Vol] 1.2 mmol/L 0.4 - 2.0 [facility]ology-Too lwell 6 I Work Phone: Oxygen (BldMV) [Partial pressure] 38 {mmHg} [facility]ology-Too lwell 6 I Work Phone: Oxyhemoglobin (BldMV) [Mass fraction] 58.9 % See Below [facility]ology-Too lwell 6 [facility] Work Phone: Comment on above: Reference Range: 45. 0 - 75.0 pH (BldMV) 7.55 1 [facility]ology-Too lwell 6 [facility] Work Phone: Potassium (BldMV) [Moles/Vol] 4.2 mmol/L 3.5 - 5.3 [facility]ology-Too lwell 6 I Work Phone: Sodium (BldMV) [Moles/Vol] 130 mmol/L below low threshold 136 - 145 [facility]well 6 I Work Phone: Laboratory - Coagulationon 1 09-19-2021 aPTT Coag (PPP) [Time] 36 s 26 - 39 [facility] -Gastroen terology-Too truell 6 I Work Phone: Comment on above: THE APTT IS NO LONGE R USED FOR MONITORING UNFRACTIONATED HEPARIN THERAPY. FOR MONITORING HEPARIN THERAPY, USE THE HEPARIN ASSAY. INR Coag (PPP) [Relative time] 1.6 {INR} above high threshold 0.9 - 1.1 [facility]ology-Too lwell 6 I Work Phone: PT Coag (PPP) [Time] 18.6 s above high threshold 9.8 - 13.4 [facility]ology-Too lwell 6 I Work Phone: Laboratory - Hematology and Cell countson 07-20-2022 Hematocrit (Bld) [Volume fraction] 31.0 % below low threshold See Below [facility]astro[facility]ology-Too lwell 6 I Work Phone: Comment on above: Reference Range: 36. 0 - 46.0 Hemoglobin (Bld) [Mass/Vol] 10.0 g/dL below low threshold See Below [facility]astroen [facility]ology-Too lwell 6 [facility] Work Phone: Comment on above: Reference Range: 12. 0 - 16.0 Platelets (Bld) [#/Vol] 159 10*3/uL 150 - 450 [facility]ology-Too lwell 6 [facility] Work Phone: RBC (Bld) [#/Vol] 3.59 {x10E12/L} below low threshold See Below [facility]astroen [facility]ology-Too lwell 6 [facility] Work Phone: Comment on above: Reference Range: 4.0 0 - 5.20 Hematocrit (Bld) [Volume fraction] Canceled [facility]ology-Too lwell 6 [facility] Work Phone: Hemoglobin (Bld) [Mass/Vol] Canceled [facility]ology-Too lwell 6 [facility] Work Phone: [phone] Platelets (Bld) [#/Vol] Canceled M G-Gastroen terology-Too lwell 6 I Work Phone: RBC (Bld) [#/Vol] Canceled [facility] terology-Too lwell 6 I Work Phone: Hematocrit Est (Bld) [Volume fraction] 30.0 % below low threshold See Below [facility]astroen [facility]ology-Too lwell 6 [facility] Work Phone: Comment on above: Reference Range: 36. 0 - 46.0 Hemoglobin (Bld) [Mass/Vol] 9.9 g/dL below low threshold See Below [facility]astroen [facility]ology-Too lwell 6 [facility] Work Phone: Comment on above: Reference Range: 12. 0 - 16.0 Hematocrit Est (Bld) [Volume fraction] 30.0 % below low threshold See Below [facility]astroen [facility]ology-Too lwell 6 [facility] Work Phone: Comment on above: Reference Range: 36. 0 - 46.0 Hemoglobin (Bld) [Mass/Vol] 10.1 g/dL below low threshold See Below [facility]astroen [facility]ology-Too lwell 6 [facility] Work Phone: Comment on above: Reference Range: 12. 0 - 16.0 MAGNESIUMon 07-20-2022 Magnesium [Mass/Vol] 1.93 mg/dL Normal 1.60 - 2.40 [facility] Comment on above: Performed By: #### M G ####[id number] [place] [address] MV FULL PANELon 07-20-2022 Anion gap [Moles/Vol] 4 mmol/L Low 10 - 25 [facility] Comment on above: Performed By: #### M VPA4 ####[id number] [place] [address] BASE EXCESS-BLOOD 14.9 mmol/L Normal [facility] Comment on above: Performed By: #### M VPA4 ####[id number] [place] [address] BICARB, CALCULATED 39.3 mmol/L Normal [facility] Comment on above: Performed By: #### M VPA4 ####[id number] [place] [address] CALCIUM,IONIZED 1.06 mmol/L Low 1.10 - 1.33 [facility] Comment on above: Performed By: #### M VPA4 ####[id number] [place] [address] Chloride [Moles/Vol] 91 mmol/L Low 98 - 107 [facility] Comment on above: Performed By: #### M VPA4 ####[id number] [place] [address] Glucose [Mass/Vol] 222 mg/dL High 74 - 99 [facility] Comment on above: Performed By: #### M VPA4 ####[id number] [place] [address] Hematocrit (Bld) [Volume fraction] 30.0 % Low 36.0 - 46.0 [facility] Comment on above: Performed By: #### M VPA4 ####[id number] [place] [address] Hemoglobin (Bld) [Mass/Vol] 9.9 g/dL Low 12.0 - 16.0 [facility] Comment on above: Performed By: #### M VPA4 ####[id number] [place] [address] Lactate [Moles/Vol] 1.9 mmol/L Normal 0.4 - 2.0 [facility] Comment on above: Performed By: #### M VPA4 ####[id number] [place] [address] OXY HGB 50.5 % Normal 45.0 - 75.0 [facility] Comment on above: Performed By: #### M VPA4 ####[id number] [place] [address] Oxygen (Bld) [Partial pressure] 35 mm[Hg] Normal [facility] Comment on above: Performed By: #### M VPA4 ####[id number] [place] [address] PATIENT TEMPERATURE 37.0 degrees Normal [facility] Comment on above: Result Comment: NOTE : PATIENT RESULTS ARE NOT CORRECTED FOR TEMPERATURE. Performed By: #### M VPA4 ####[id number] [place] [address] PCO2 47 mmHg Normal [facility] Comment on above: Performed By: #### M VPA4 ####[id number] [place] [address] pH (Bld) 7.53 [pH] Normal [facility] Comment on above: Performed By: #### M VPA4 ####[id number] [place] [address] Potassium [Moles/Vol] 4.0 mmol/L Normal 3.5 - 5.3 [facility] Comment on above: Performed By: #### M VPA4 ####[id number] [place] [address] SO2 52 % Normal [facility] Comment on above: Performed By: #### M VPA4 ####[id number] [place] [address] Sodium [Moles/Vol] 130 mmol/L Low 136 - 145 [facility] Comment on above: Performed By: #### M VPA4 ####[id number] [place] [address] Anion gap [Moles/Vol] 5 mmol/L Low 10 - 25 [facility] Comment on above: Performed By: #### M VPA4 ####[id number] [place] [address] BASE EXCESS-BLOOD 12.4 mmol/L Normal [facility] Comment on above: Performed By: #### M VPA4 ####[id number] [place] [address] BICARB, CALCULATED 35.9 mmol/L Normal [facility] Comment on above: Performed By: #### M VPA4 ####[id number] [place] [address] CALCIUM,IONIZED 1.08 mmol/L Low 1.10 - 1.33 [facility] Comment on above: Performed By: #### M VPA4 ####[id number] [place] [address] Chloride [Moles/Vol] 93 mmol/L Low 98 - 107 [facility] Comment on above: Performed By: #### M VPA4 ####[id number] [place] [address] Glucose [Mass/Vol] 217 mg/dL High 74 - 99 [facility] Comment on above: Performed By: #### M VPA4 ####[id number] [place] [address] Hematocrit (Bld) [Volume fraction] 30.0 % Low 36.0 - 46.0 [facility] Comment on above: Performed By: #### M VPA4 ####[id number] [place] [address] Hemoglobin (Bld) [Mass/Vol] 10.1 g/dL Low 12.0 - 16.0 [facility] Comment on above: Performed By: #### M VPA4 ####[id number] [place] [address] Lactate [Moles/Vol] 1.2 mmol/L Normal 0.4 - 2.0 [facility] Comment on above: Performed By: #### M VPA4 ####[id number] [place] [address] OXY HGB 58.9 % Normal 45.0 - 75.0 [facility] Comment on above: Performed By: #### M VPA4 ####[id number] [place] [address] Oxygen (Bld) [Partial pressure] 38 mm[Hg] Normal [facility] Comment on above: Performed By: #### M VPA4 ####[id number] [place] [address] PATIENT TEMPERATURE 37.0 degrees Normal [facility] Comment on above: Result Comment: NOTE : PATIENT RESULTS ARE NOT CORRECTED FOR TEMPERATURE. Performed By: #### M VPA4 ####[id number] [place] [address] PCO2 41 mmHg Normal [facility] Comment on above: Performed By: #### M VPA4 ####[id number] [place] [address] pH (Bld) 7.55 [pH] Normal [facility] Comment on above: Performed By: #### M VPA4 ####[id number] [place] [address] Potassium [Moles/Vol] 4.2 mmol/L Normal 3.5 - 5.3 [facility] Comment on above: Performed By: #### M VPA4 ####[id number] [place] [address] SO2 61 % Normal [facility] Comment on above: Performed By: #### M VPA4 ####[id number] [place] [address] Sodium [Moles/Vol] 130 mmol/L Low 136 - 145 [facility] Comment on above: Performed By: #### M VPA4 ####[id number] [place] [address] Magnesium, Serumon 2 Magnesium [Mass/Vol] 1.93 mg/dL See Below MG-G astroen terology-Too [facility] 6 I Work Phone: Comment on above: Reference Range: 1.6 0 - 2.40 No Panel Informationon 07-20 219 mg/dL above high threshold 74 - 99 [facility]-Gastroen [facility]ology-Too lwell 6 [facility] Work Phone: 227 mg/dL above high threshold 74 - 99 [facility]en [facility]ology-Too lwell 6 [facility] Work Phone: 15.7 % above high threshold See Below [facility]-Gastroen terology-Too lwell 6 [facility] Work Phone: Comment on above: Reference Range: 11. 5 - 14.5 32.3 g/dL See Below [facility]-Gastroen [facility]ology-Too lwell 6 [facility] Work Phone: Comment on above: Reference Range: 32. 0 - 36.0 86 fL 80 - 100 [facility]-Gastroen terology-Too lwell 6 I Work Phone: 0.0 {/100_WBC} 0.0-0.0 [facility] Work Phone: 10.8 {x10E9/L} 4.4 - 11.3 [facility] Work Phone: Canceled [facility] Work Phone: 228 mg/dL above high threshold 74 - 99 [facility] Work Phone: 52 % [facility] Work Phone: 37.0 {degrees} [facility] Work Phone: Comment on above: NOTE: PATIENT RESULT S ARE NOT CORRECTED FOR TEMPERATURE. [email or web address]?RetrieveTestByDateTime ?HcqrkcnPI=[id number]&Date =04-22-2022&Time=09%3a15% 3a55%3a00&TestType=ECG&Si te=1&OutputType=PDF&Ext=P DF [facility] Work Phone: [phone] Normal sinus rhythm [facility] Work Phone: [phone] Abnormal [facility] Work Phone: [phone] 1 [facility] Work Phone: [phone] 1 [facility] Work Phone: [phone] 1 [facility] Work Phone: [phone] 1 [facility] Work Phone: [phone] 1 [facility] Work Phone: [phone] 1 [facility] Work Phone: [phone] 1 [facility] Work Phone: [phone] -20 1 [facility] Work Phone: [phone] 1 [facility] Work Phone: [phone] 1 [facility] Work Phone: [phone] 1 [facility] Work Phone: [phone] 86 1 [facility] Work Phone: [phone] 1 [facility] Work Phone: [phone] 1 [facility] Work Phone: [phone] 1 [facility] Work Phone: 383 1 [facility] Work Phone: [phone] 1 [facility] Work Phone: [phone] 1 [facility] Work Phone: [phone] 1 [facility] Work Phone: [phone] -27 1 [facility] Work Phone: [phone] 1 [facility] Work Phone: [phone] 1 [facility] Work Phone: [phone] 1 [facility] I Work Phone: [phone] 1 [facility] Work Phone: [phone] 1 [facility] Work Phone: [phone] [email or web address]?RetrieveTestByDateTime ?ZroyrrzQA=[id number]&Date =04-22-2022&Time=08%3a37% 3a54%3a00&TestType=ECG&Si te=1&OutputType=PDF&Ext=P DF [facility] Work Phone: [phone] Sinus tachycardia [facility] Work Phone: [phone] Abnormal [facility] Work Phone: [phone] mg/dL above high threshold 74 - 99 [facility] Work Phone: [phone] 61 % [facility] Work Phone: 37.0 {degrees} [facility] 6 [facility] Work Phone: Comment on above: NOTE: PATIENT RESULT S ARE NOT CORRECTED FOR TEMPERATURE. OT Evaluation v2-attemptedon 07-20-2022 OT Evaluation v2-attempted Normal [facility] PT Evaluation v2-attemptedon 07-20-2022 PT Evaluation v2-attempted Normal [facility] RENAL FUNCTION PANELon 07-20 Albumin [Mass/Vol] 3.4 g/dL Normal 3.4 - 5.0 [facility] Comment on above: Performed By: #### R ENAL ####[id number] [place] [address] Anion gap [Moles/Vol] 13 mmol/L Normal 10 - 20 [facility] Comment on above: Performed By: #### R ENAL ####[id number] [place] [address] Calcium [Mass/Vol] 8.3 mg/dL Low 8.6 - 10.6 [facility] Comment on above: Performed By: #### R ENAL ####[id number] [place] [address] Chloride [Moles/Vol] 92 mmol/L Low 98 - 107 [facility] Comment on above: Performed By: #### R ENAL ####[id number] [place] [address] Creatinine [Mass/Vol] 1.66 mg/dL High 0.50 - 1.05 [facility] Comment on above: Performed By: #### R ENAL ####[id number] [place] [address] GFR/1.73 sq M.predicted among non-blacks MDRD (S/P/Bld) [Vol rate/Area] 35 mL/min/{1.73_m2} Abnormal >90 [facility] Comment on above: Result Comment: CALC ULATIONS OF ESTIMATED GFR ARE PERFORMED USING THE 2020 CKD-EPI STUDY REFIT EQUATION WITHOUT THE RACE VARIABLE FOR THE IDMS-TRACEABLE CREATININE METHODS.https://jasn.asnjournals.org/content/early// ASN.8931266802 Performed By: #### R ENAL ####[id number] [place] [address] Glucose [Mass/Vol] 211 mg/dL High 74 - 99 [facility] Comment on above: Performed By: #### R ENAL ####[id number] [place] [address] HCO3 (Bld) [Moles/Vol] 35 mmol/L High 21 - 32 [facility] Comment on above: Performed By: #### R ENAL ####[id number] [place] [address] Phosphate [Mass/Vol] 1.7 mg/dL Low 2.5 - 4.9 [facility] Comment on above: Result Comment: The performance characteristics of phosphorus testing in heparinized plasma have been validated by the individual laboratory site where testing is performed. Testing on heparinized plasma is not approved by the FDA; however, such approval is not necessary. Performed By: #### R ENAL ####[id number] [place] [address] Potassium [Moles/Vol] 4.3 mmol/L Normal 3.5 - 5.3 [facility] Comment on above: Performed By: #### R ENAL ####[id number] [place] [address] Sodium [Moles/Vol] 136 mmol/L Normal 136 - 145 [facility] Comment on above: Performed By: #### R ENAL ####[id number] [place] [address] Urea nitrogen [Mass/Vol] 62 mg/dL High 6 - 23 [facility] Comment on above: Performed By: #### R ENAL ####[id number] [place] [address] Albumin [Mass/Vol] 3.1 g/dL Low 3.4 - 5.0 [facility] Comment on above: Performed By: #### R ENAL ####[id number] [place] [address] Anion gap [Moles/Vol] 13 mmol/L Normal 10 - 20 [facility] Comment on above: Performed By: #### R ENAL ####[id number] [place] [address] Calcium [Mass/Vol] 8.1 mg/dL Low 8.6 - 10.6 [facility] Comment on above: Performed By: #### R ENAL ####[id number] [place] [address] Chloride [Moles/Vol] 93 mmol/L Low 98 - 107 [facility] Comment on above: Performed By: #### R ENAL ####[id number] [place] [address] Creatinine [Mass/Vol] 1.74 mg/dL High 0.50 - 1.05 [facility] Comment on above: Performed By: #### R ENAL ####[id number] [place] [address] GFR/1.73 sq M.predicted among non-blacks MDRD (S/P/Bld) [Vol rate/Area] 33 mL/min/{1.73_m2} Abnormal >90 [facility] Comment on above: Result Comment: CALC ULATIONS OF ESTIMATED GFR ARE PERFORMED USING THE 2020 CKD-EPI STUDY REFIT EQUATION WITHOUT THE RACE VARIABLE FOR THE IDMS-TRACEABLE CREATININE METHODS.https://jasn.asnjournals.org/content// ASN.0073430573 Performed By: #### R ENAL ####[id number] [place] [address] Glucose [Mass/Vol] 219 mg/dL High 74 - 99 [facility] Comment on above: Performed By: #### R ENAL ####[id number] [place] [address] HCO3 (Bld) [Moles/Vol] 34 mmol/L High 21 - 32 [facility] Comment on above: Performed By: #### R ENAL ####[id number] [place] [address] Phosphate [Mass/Vol] 1.9 mg/dL Low 2.5 - 4.9 [facility] Comment on above: Result Comment: The performance characteristics of phosphorus testing in heparinized plasma have been validated by the individual laboratory site where testing is performed. Testing on heparinized plasma is not approved by the FDA; however, such approval is not necessary. Performed By: #### R ENAL ####[id number] [place] [address] Potassium [Moles/Vol] 3.6 mmol/L Normal 3.5 - 5.3 [facility] Comment on above: Performed By: #### R ENAL ####[id number] [place] [address] Sodium [Moles/Vol] 136 mmol/L Normal 136 - 145 [facility] Comment on above: Performed By: #### R ENAL ####[id number] [place] [address] Urea nitrogen [Mass/Vol] 61 mg/dL High 6 - 23 [facility] Comment on above: Performed By: #### R ENAL ####[id number] [place] [address] Radiologyon 07-20-2022 XR Chest Single view Normal [facility] 6 [facility] Work Phone: Renal Function Panelon 07-20 Albumin BCP dye [Mass/Vol] 3.4 g/dL 3.4 - 5.0 [facility] 6 [facility] Work Phone: Calcium [Mass/Vol] 8.3 mg/dL below low threshold 8.6 - 10.6 [facility] 6 I Work Phone: Chloride [Moles/Vol] 92 mmol/L below low threshold 98 - 107 [facility] I Work Phone: CO2 [Moles/Vol] 35 mmol/L above high threshold 21 - 32 [facility] 6 [facility] Work Phone: Creatinine [Mass/Vol] 1.66 mg/dL above high threshold See Below [facility] Work Phone: Comment on above: Reference Range: 0.5 0 - 1.05 Glucose [Mass/Vol] 211 mg/dL above high threshold 74 - 99 [facility] Work Phone: Phosphate [Mass/Vol] 1.7 mg/dL below low threshold 2.5 - 4.9 [facility] Work Phone: Comment on above: The performance juan a acteristics of phosphorus testing in heparinized plasma have been validated by the individual laboratory site where testing is performed. Testing on heparinized plasma is not approved by the FDA; however, such approval is not necessary. Potassium [Moles/Vol] 4.3 mmol/L 3.5 - 5.3 [facility] Work Phone: Sodium [Moles/Vol] 136 mmol/L 136 - 145 [facility] tro[facility] 6 I Work Phone: Urea nitrogen [Mass/Vol] 62 mg/dL above high threshold 6 - 23 [facility] Work Phone: Renal Function Panel 35 {mL/min/1.73m2} Abnormal >90 [facility] Work Phone: Comment on above: CALCULATIONS OF LASHAWN MATED GFR ARE PERFORMED USING THE 2020 CKD-EPI STUDY REFIT EQUATION WITHOUT THE RACE VARIABLE FOR THE IDMS-TRACEABLE CREATININE METHODS.https://jasn.asnjournals.org/content/// ASN.9433424234 Renal Function Panel 13 mmol/L 10 - 20 [facility] Work Phone: TH CHEST 1 VIEWon 07-20-2022 CHEST 1 VIEW Normal [facility] VENOUS BLOOD GASon 11-08-202 2 BASE EXCESS-BLOOD 11.4 mmol/L High -2.0 - 3.0 [facility] Comment on above: Performed By: #### B LGV2 ####[id number] [place] [address] BICARB, CALCULATED 35.9 mmol/L High 22.0 - 26.0 [facility] Comment on above: Performed By: #### B LGV2 ####[id number] [place] [address] OXY HGB 69.1 % Normal 45.0 - 75.0 [facility] Comment on above: Performed By: #### B LGV2 ####[id number] [place] [address] Oxygen (Bld) [Partial pressure] 42 mm[Hg] Normal 35 - 45 [facility] Comment on above: Performed By: #### B LGV2 ####[id number] [place] [address] PATIENT TEMPERATURE 37.0 degrees C Normal U [facility] Comment on above: Result Comment: NOTE : PATIENT RESULTS ARE NOT CORRECTED FOR TEMPERATURE. Performed By: #### B LGV2 ####[id number] [place] [address] PCO2 45 mmHg Normal 41 - 51 [facility] Comment on above: Performed By: #### B LGV2 ####[id number] [place] [address] pH (Bld) 7.51 [pH] High 7.33 - 7.43 [facility] Comment on above: Performed By: #### B LGV2 ####[id number] [place] [address] SO2 71 % Normal 45 - 75 [facility] Comment on above: Performed By: #### B LGV2 ####[id number] [place] [address] CALCIUM, IONIZEDon 2 CALCIUM,IONIZED 1.09 mmol/L Low 1.10 - 1.33 [facility] Comment on above: Result Comment: The performance characteristics of ionized calcium tested in heparinized plasma or serum have been validated by the individual laboratory site where testing is performed. Testing on heparinized plasma or serum is not approved by the FDA; however, such approval is not necessary. Performed By: #### I ONC1 ####[id number] [place] [address] CBCon 07-19-2022 Erythrocyte distribution width (RBC) [Ratio] 14.7 % High 11.5 - 14.5 [facility] Comment on above: Performed By: #### C BC ####[id number] [place] [address] Hematocrit (Bld) [Volume fraction] 32.8 % Low 36.0 - 46.0 [facility] Comment on above: Performed By: #### C BC ####[id number] [place] [address] Hemoglobin (Bld) [Mass/Vol] 10.3 g/dL Low 12.0 - 16.0 [facility] Comment on above: Performed By: #### C BC ####[id number] [place] [address] MCHC (RBC) [Mass/Vol] 31.4 g/dL Low 32.0 - 36.0 [facility] Comment on above: Performed By: #### C BC ####[id number] [place] [address] MCV (RBC) [Entitic vol] 87 fL Normal 80 - 100 [facility] Comment on above: Performed By: #### C BC ####[id number] [place] [address] NUCLEATED RBC 0.0 /100 WBC Normal 0.0-0.0 [facility] Comment on above: Performed By: #### C BC ####[id number] [place] [address] Platelets (Bld) [#/Vol] 177 10*3/uL Normal 150 - 450 [facility] Comment on above: Performed By: #### C BC ####[id number] [place] [address] RBC 3.76 x10E12/L Low 4.00 - 5.20 [facility] Comment on above: Performed By: #### C BC ####[id number] [place] [address] WBC (Bld) [#/Vol] 11.6 10*3/uL High 4.4 - 11.3 [facility] Comment on above: Performed By: #### C BC ####[id number] [place] [address] COAGULATION SCREENon 022 aPTT Coag (Bld) [Time] 42 s High 26 - 39 [facility] Comment on above: Result Comment: THE APTT IS NO LONGER USED FOR MONITORING UNFRACTIONATED HEPARIN THERAPY. FOR MONITORING HEPARIN THERAPY, USE THE HEPARIN ASSAY. Performed By: #### C OAGS ####[id number] [place] [address] PT Coag (PPP) [Time] 20.4 s High 9.8 - 13.4 [facility] Comment on above: Performed By: #### C OAGS ####[id number] [place] [address] PT, INR 1.8 High 0.9 - 1.1 [facility] Comment on above: Performed By: #### C OAGS ####[id number] [place] [address] Calcium, Ionized Levelon Calcium, Ionized Level 1.09 mmol/L below low threshold See Below [facility] Work Phone: Comment on above: Reference Range: 1.1 0 - 1.33 The performance characteristics of ionized calcium tested in heparinized plasma or serum have been validated by the individual laboratory site where testing is performed. Testing on heparinized plasma or serum is not approved by the FDA; however, such approval is not necessary. Clinical Event Note-Cardiove rsionon 07-19-2022 Clinical Event Note-Cardioversion Normal [facility] Clinical Note - Pharmacy v2- Medication Educationon 07-19-2022 Clinical Note - Pharmacy v2-Medication Education Normal [facility] DIGOXINon 07-19-2022 Digoxin [Mass/Vol] ng/mL Low 0.80 - 2.00 [facility] Comment on above: Performed By: #### D IGOX ####[id number] [place] [address] Daily Progress Note - Critic al Care-HF ICUon 07-19-2022 Daily Progress Note - Critical Care-HF ICU Normal [facility] Daily Progress Note-Endocrin ologyon 07-19-2022 Daily Progress Note-Endocrinology Normal [facility] Digoxin Level, Serumon 07-19 Digoxin [Mass/Vol] ng/mL below low threshold See Below [facility] I Work Phone: Comment on above: Reference Range: 0.8 0 - 2.00 Discharge Planning Ooem5bd 1 09-18-2021 Discharge Planning Note2 Normal [facility] EMR ADDONon 07-19-2022 ADDON CONFIRMATION REQUEST REC'D Normal [facility] Comment on above: Performed By: #### E MRAD ####NO LOCATION NEEDED ADDON CONFIRMATION REQUEST REC'D Normal [facility] Comment on above: Performed By: #### E MRAD ####NO LOCATION NEEDED Electrocardiogram 12 Leadon 07-19-2022 Electrocardiogram 12 Lead Normal [facility] FERRITINon 07-19-2022 FERRITIN 78 ug/L Normal 8 - 150 [facility] Comment on above: Performed By: #### F ERRI ####[id number] [place] [address] Ferritin, Serumon 07-19-2022 Ferritin [Mass/Vol] 78 ug/L 8 - 150 [facility] Work Phone: GLUCOSE-POCTon 07-19-2022 Glucose [Mass/Vol] 221 mg/dL High 74 - 99 [facility] Comment on above: Performed By: #### G MANJULA ####[id number] [place] [address] Glucose [Mass/Vol] 133 mg/dL High 74 - 99 [facility] Comment on above: Performed By: #### G MANJULA ####[id number] [place] [address] Glucose [Mass/Vol] 163 mg/dL High 74 - 99 [facility] Comment on above: Performed By: #### G MANJULA ####[id number] [place] [address] Glucose [Mass/Vol] 227 mg/dL High 74 - 99 [facility] Comment on above: Performed By: #### G MANJULA ####[id number] [place] [address] HEPARIN ASSAY,UFHon 07-19-20 HEPARIN ASSAY,UFH 0.7 IU/mL Normal [facility] Comment on above: Result Comment: The therapeutic reference range for UFH may be either 0.3-0.6 IU/mL or 0.3-0.7 IU/mL based on the clinical setting for anticoagulant therapy and the associated nomogram used. For heparin dosing guidelines based on clinical scenario and Heparin Assay results, please refer to local Pharmacy and [facility] Guidelines for Anticoagulation therapy available on the [facility] intranet at:[email or web address]/Pharmacy/Pages/[facility]_Guidelines_for_Anticoagu.aspx Performed By: #### H AUF ####[id number] [place] [address] HEPARIN ASSAY,UFH 0.7 IU/mL Normal [facility] Comment on above: Result Comment: The therapeutic reference range for UFH may be either 0.3-0.6 IU/mL or 0.3-0.7 IU/mL based on the clinical setting for anticoagulant therapy and the associated nomogram used. For heparin dosing guidelines based on clinical scenario and Heparin Assay results, please refer to [facility] Pharmacy and [facility] Guidelines for Anticoagulation therapy available on the [facility] intranet at:[email or web address]/[email or web address]/Pages/[facility]_Guidelines_for_Anticoagu.aspx Performed By: #### H AUF ####[id number] [place] [address] HEPARIN ASSAY,UFH 1.0 IU/mL Normal [facility] Comment on above: Result Comment: The therapeutic reference range for UFH may be either 0.3-0.6 IU/mL or 0.3-0.7 IU/mL based on the clinical setting for anticoagulant therapy and the associated nomogram used. For heparin dosing guidelines based on clinical scenario and Heparin Assay results, please refer to local Pharmacy and the [facility] Guidelines for Anticoagulation therapy available on the [facility] intranet at:[email or web address]://[facility] access [email or web address]/Pharmacy/Pages/[facility]_Guidelines_for_Anticoagu.aspx Performed By: #### H AUF ####[id number] [place] [address] HEPARIN ASSAY,UFH 1.2 IU/mL Critically abnormal [facility] Comment on above: Order Comment: BASILIO MAE TO CARLOS PANCHAL, 07/19/2022 00:55 Result Comment: The therapeutic reference range for UFH may be either 0.3-0.6 IU/mL or 0.3-0.7 IU/mL based on the clinical setting for anticoagulant therapy and the associated nomogram used. For heparin dosing guidelines based on clinical scenario and Heparin Assay results, please refer to local Pharmacy and [facility] Guidelines for Anticoagulation therapy available on the [facility] intranet at:[email or web address]/Pharmacy/Pages/[facility]_Guidelines_for_Anticoagu.aspxBASILIO MAE TO CARLOS PANCHAL, 07/19/2022 00:55 Performed By: #### H AUF ####[id number] [place] [address] HEPATIC FUNCTION PANELon ALP [Catalytic activity/Vol] 106 U/L Normal 33 - 136 [facility] Comment on above: Performed By: #### H EPFP ####[id number] [place] [address] ALT [Catalytic activity/Vol] 63 U/L High 7 - 45 [facility] Comment on above: Result Comment: Radha ents treated with Sulfasalazine may generate falsely decreased results for ALT. Performed By: #### H EPFP ####[id number] [place] [address] AST [Catalytic activity/Vol] 22 U/L Normal 9 - 39 [facility] Comment on above: Performed By: #### H EPFP ####[id number] [place] [address] Bilirubin [Mass/Vol] 1.0 mg/dL Normal 0.0 - 1.2 [facility] Comment on above: Performed By: #### H EPFP ####[id number] [place] [address] Bilirubin.indirect [Mass/Vol] 0.4 mg/dL High 0.0 - 0.3 [facility] Comment on above: Performed By: #### H EPFP ####[id number] [place] [address] Protein [Mass/Vol] 5.7 g/dL Low 6.4 - 8.2 [facility] Comment on above: Performed By: #### H EPFP ####[id number] [place] [address] Albumin [Mass/Vol] 3.3 g/dL Low 3.4 - 5.0 [facility] Comment on above: Performed By: #### H EPFP ####[id number] [place] [address] Performed By: #### R ENAL ####[id number] [place] [address] Heparin assay, UFHon 07-19- 022 Heparin unfractionated Chromogenic method Qn (PPP) 0.7 {IU/mL} [facility] Work Phone: Comment on above: The therapeutic refe rence range for UFH may be either 0.3-0.6 IU/mL or 0.3-0.7 IU/mL based on the clinical setting for anticoagulant therapy and the associated nomogram used. For heparin dosing guidelines based on clinical scenario and Heparin Assay results, please refer to local Pharmacy and the [facility] Guidelines for Anticoagulation therapy available on the [facility] intranet at:[email or web address]/Pages/[facility]_Guidelines_for_Anticoagu.aspx Heparin unfractionated Chromogenic method Qn (PPP) 0.7 {IU/mL} [facility] 6 [facility] Work Phone: Comment on above: The therapeutic refe rence range for UFH may be either 0.3-0.6 IU/mL or 0.3-0.7 IU/mL based on the clinical setting for anticoagulant therapy and the associated nomogram used. For heparin dosing guidelines based on clinical scenario and Heparin Assay results, please refer to local Pharmacy and the [facility] Guidelines for Anticoagulation therapy available on the [facility] intranet at:[email or web address]/Pages/[facility]_Guidelines_for_Anticoagu.aspx Heparin unfractionated Chromogenic method Qn (PPP) 1.0 {IU/mL} [facility] Work Phone: Comment on above: The therapeutic refe rence range for UFH may be either 0.3-0.6 IU/mL or 0.3-0.7 IU/mL based on the clinical setting for anticoagulant therapy and the associated nomogram used. For heparin dosing guidelines based on clinical scenario and Heparin Assay results, please refer to local Pharmacy and [facility] Guidelines for Anticoagulation therapy available on the [facility] intranet at:[email or web address]_Guidelines_for_Anticoagu.aspx Hepatic Function Panelon Albumin BCP dye [Mass/Vol] 3.3 g/dL below low threshold 3.4 - 5.0 [facility]-Gastroen terology-Too [facility] 6 [facility] Work Phone: ALP [Catalytic activity/Vol] 106 U/L 33 - 136 [facility]astroen terology-Too [facility] 6 [facility] Work Phone: ALT With P-5'-P [Catalytic activity/Vol] 63 U/L above high threshold 7 - 45 [facility]astroen terology-Too [facility] 6 [facility] Work Phone: Comment on above: Patients treated wit h Sulfasalazine may generate falsely decreased results for ALT. AST With P-5'-P [Catalytic activity/Vol] 22 U/L 9 - 39 [facility]-Gastroen terology-Too lwell 6 [facility] Work Phone: Bilirubin [Mass/Vol] 1.0 mg/dL 0.0 - 1.2 MG-G astroen terology-Too lwell 6 [facility] Work Phone: Bilirubin.direct [Mass/Vol] 0.4 mg/dL above high threshold 0.0 - 0.3 [facility]-Gastroen terology-Too [facility]well 6 I Work Phone: Protein [Mass/Vol] 5.7 g/dL below low threshold 6.4 - 8.2 [facility]-Gastroen terology-Too [facility]well 6 [facility] Work Phone: IRON + TIBCon 07-19-2022 % SATURATION 82 % High 25 - 45 [facility] Comment on above: Performed By: #### I RONT ####[id number] [place] [address] Iron [Mass/Vol] 376 ug/dL High 35 - 150 [facility] Comment on above: Performed By: #### I RONT ####[id number] [place] [address] TIBC 457 ug/dL High 240 - 445 [facility] Comment on above: Performed By: #### I RONT ####[id number] [place] [address] LACTATEon 07-19-2022 Lactate [Moles/Vol] 1.5 mmol/L Normal 0.4 - 2.0 [facility] Comment on above: Result Comment: Susan puncture immediately after or during the administration of Metamizole may lead to falsely low results. Testing should be performed immediately prior to Metamizole dosing. Performed By: #### L ACT ####[id number] [place] [address] Laboratory - Chemistry and C hemistry - challengeon 07-19-2022 Base excess Calc (BldV) [Moles/Vol] 11.4 mmol/L above high threshold -2.0 - 3.0 [facility]-Gastroen terology-Too lwell 6 I Work Phone: CO2 (BldV) [Partial pressure] 45 mm[Hg] 41 - 51 [facility]astro[facility]ology-Too [facility]well 6 [facility] Work Phone: HCO3 (Bld) [Moles/Vol] 35.9 mmol/L above hig h threshold See Below [facility]astroen terology-Too lwell 6 [facility] Work Phone: Comment on above: Reference Range: 22. 0 - 26.0 Oxygen (BldV) [Partial pressure] 42 mm[Hg] 35 - 45 [facility]ology-Too [facility]well 6 I Work Phone: Oxyhemoglobin (BldV) [Mass fraction] 69.1 % See Below [facility]astroen terology-Too lwell 6 [facility] Work Phone: Comment on above: Reference Range: 45. 0 - 75.0 pH (BldV) 7.51 [pH] above high threshold See Below [facility]astroen terology-Too lwell 6 I Work Phone: Comment on above: Reference Range: 7.3 3 - 7.43 Anion gap 4 (BldMV) [Moles/Vol] 6 mmol/L below low threshold 10 - 25 [facility]ology-Too [facility] 6 I Work Phone: Base excess Calc (BldMV) [Moles/Vol] 4.4 mmol/L [facility]astroen terology-Too lwell 6 [facility] Work Phone: Calcium.ionized (BldMV) [Moles/Vol] 0.99 mmol/L below low threshold See Below [facility]astroen terology-Too lwell 6 I Work Phone: Comment on above: Reference Range: 1.1 0 - 1.33 Chloride [Moles/Vol] 101 mmol/L 98 - 107 [facility]-G astroen terology-Too lwell 6 I Work Phone: CO2 (BldMV) [Partial pressure] 39 {mmHg} MG-Gastroen terology-Too lwell 6 I Work Phone: Glucose [Mass/Vol] 195 mg/dL above high threshold 74 - 99 [facility]ology-Too lwell 6 I Work Phone: [phone] HCO3 (BldMV) [Moles/Vol] 28.4 mmol/L [facility]-Gastroen terology-Too lwell 6 I Work Phone: [phone] Lactate (BldMV) [Moles/Vol] 1.0 mmol/L 0.4 - 2.0 [facility]astroen terology-Too lwell 6 I Work Phone: [phone] Oxygen (BldMV) [Partial pressure] 34 {mmHg} MG-Gastroen terology-Too lwell 6 I Work Phone: [phone] Oxyhemoglobin (BldMV) [Mass fraction] 52.8 % See Below [facility]astroen terology-Too lwell 6 I Work Phone: Comment on above: Reference Range: 45. 0 - 75.0 pH (BldMV) 7.47 1 [facility]-Gastroen terology-Too lwell 6 I Work Phone: [phone] Potassium (BldMV) [Moles/Vol] 3.2 mmol/L below low threshold 3.5 - 5.3 [facility]en terology-Too lwell 6 I Work Phone: [phone] Sodium (BldMV) [Moles/Vol] 132 mmol/L below low threshold 136 - 145 [facility]astroen terology-Too lwell 6 I Work Phone: [phone] Base excess Calc (BldMV) [Moles/Vol] 5.3 mmol/L [facility]-Gastroen terology-Too lwell 6 I Work Phone: [phone] CO2 (BldMV) [Partial pressure] 49 {mmHg} MG-Gastroen terology-Too lwell 6 I Work Phone: [phone] HCO3 (BldMV) [Moles/Vol] 31.1 mmol/L MG-Gastroen terology-Too lwell 6 [facility] Work Phone: Oxygen (BldMV) [Partial pressure] 40 {mmHg} MG-Gastroen terology-Too lwell 6 [facility] Work Phone: Oxyhemoglobin (BldMV) [Mass fraction] 61.6 % See Below [facility]-Gastroen terology-Too lwell 6 I Work Phone: Comment on above: Reference Range: 45. 0 - 75.0 pH (BldMV) 7.41 1 MG-Gastroen terology-Too truell 6 I Work Phone: Iron [Mass/Vol] 376 ug/dL above high threshold 35 - 150 [facility]-Gastroen terology-Too truell 6 I Work Phone: Iron binding capacity [Mass/Vol] 457 ug/dL above high threshold 240 - 445 [facility]-Gastroen terology-Too truell 6 I Work Phone: Laboratory - Coagulationon 09-18-2021 aPTT Coag (PPP) [Time] 42 s above hig h threshold 26 - 39 [facility]-Gastroen terology-Too truell 6 I Work Phone: Comment on above: THE APTT IS NO LONGE R USED FOR MONITORING UNFRACTIONATED HEPARIN THERAPY. FOR MONITORING HEPARIN THERAPY, USE THE HEPARIN ASSAY. INR Coag (PPP) [Relative time] 1.8 {INR} above high threshold 0.9 - 1.1 MG-Gastroen terology-Too lwell 6 I Work Phone: PT Coag (PPP) [Time] 20.4 s above high threshold 9.8 - 13.4 MG-Gastroen terology-Too lwell 6 I Work Phone: Laboratory - Hematology and Cell countson 07-19-2022 Hematocrit Est (Bld) [Volume fraction] 27.0 % below low threshold See Below MG-Gastroen terology-Too lwell 6 I Work Phone: Comment on above: Reference Range: 36. 0 - 46.0 Hemoglobin (Bld) [Mass/Vol] 8.9 g/dL below low threshold See Below MG-Gastroen terology-Too lwell 6 I Work Phone: Comment on above: Reference Range: 12. 0 - 16.0 Hematocrit (Bld) [Volume fraction] 32.8 % below low threshold See Below MG-Gastroen terology-Too lwell 6 I Work Phone: Comment on above: Reference Range: 36. 0 - 46.0 Hemoglobin (Bld) [Mass/Vol] 10.3 g/dL below low threshold See Below MG-Gastroen terology-Too lwell 6 I Work Phone: Comment on above: Reference Range: 12. 0 - 16.0 Platelets (Bld) [#/Vol] 177 10*3/uL 150 - 450 [facility]Gastroen terology-Too lwell 6 I Work Phone: RBC (Bld) [#/Vol] 3.76 {x10E12/L} below low threshold See Below MG-Gastroen terology-Too lwell 6 I Work Phone: Comment on above: Reference Range: 4.0 0 - 5.20 Lactate, Levelon 07-19-2022 Lactate [Moles/Vol] 1.5 mmol/L 0.4 - 2.0 MG-Ga stroen terology-Too lwell 6 I Work Phone: Comment on above: Venipuncture immedia tely after or during the administration of Metamizole may lead to falsely low results. Testing should be performed immediately prior to Metamizole dosing. MAGNESIUMon 07-19-2022 Magnesium [Mass/Vol] 1.81 mg/dL Normal 1.60 - 2.40 [facility] Comment on above: Performed By: #### M G ####[id number] [place] [address] MV BLOOD GASon 07-19-2022 BASE EXCESS-BLOOD 5.3 mmol/L Normal [facility] Comment on above: Performed By: #### B LMV2 ####[id number] [place] [address] BICARB, CALCULATED 31.1 mmol/L Normal [facility] Comment on above: Performed By: #### B LMV2 ####[id number] [place] [address] OXY HGB 61.6 % Normal 45.0 - 75.0 [facility] Comment on above: Performed By: #### B LMV2 ####[id number] [place] [address] Oxygen (Bld) [Partial pressure] 40 mm[Hg] Normal [facility] Comment on above: Performed By: #### B LMV2 ####[id number] [place] [address] PATIENT TEMPERATURE 37.0 degrees Normal [facility] Comment on above: Result Comment: NOTE : PATIENT RESULTS ARE NOT CORRECTED FOR TEMPERATURE. Performed By: #### B LMV2 ####[id number] [place] [address] PCO2 49 mmHg Normal [facility] Comment on above: Performed By: #### B LMV2 ####[id number] [place] [address] pH (Bld) 7.41 [pH] Normal [facility] Comment on above: Performed By: #### B LMV2 ####[id number] [place] [address] SO2 63 % Normal [facility] Comment on above: Performed By: #### B LMV2 ####[id number] [place] [address] MV FULL PANELon 07-19-2022 Anion gap [Moles/Vol] 6 mmol/L Low 10 - 25 [facility] Comment on above: Performed By: #### M VPA4 ####[id number] [place] [address] BASE EXCESS-BLOOD 4.4 mmol/L Normal [facility] Comment on above: Performed By: #### M VPA4 ####[id number] [place] [address] BICARB, CALCULATED 28.4 mmol/L Normal [facility] Comment on above: Performed By: #### M VPA4 ####[id number] [place] [address] CALCIUM,IONIZED 0.99 mmol/L Low 1.10 - 1.33 [facility] Comment on above: Performed By: #### M VPA4 ####[id number] [place] [address] Chloride [Moles/Vol] 101 mmol/L Normal 98 - 107 [facility] Comment on above: Performed By: #### M VPA4 ####[id number] [place] [address] Glucose [Mass/Vol] 195 mg/dL High 74 - 99 [facility] Comment on above: Performed By: #### M VPA4 ####[id number] [place] [address] Hematocrit (Bld) [Volume fraction] 27.0 % Low 36.0 - 46.0 [facility] Comment on above: Performed By: #### M VPA4 ####[id number] [place] [address] Hemoglobin (Bld) [Mass/Vol] 8.9 g/dL Low 12.0 - 16.0 [facility] Comment on above: Performed By: #### M VPA4 ####[id number] [place] [address] Lactate [Moles/Vol] 1.0 mmol/L Normal 0.4 - 2.0 [facility] Comment on above: Performed By: #### M VPA4 ####[id number] [place] [address] OXY HGB 52.8 % Normal 45.0 - 75.0 [facility] Comment on above: Performed By: #### M VPA4 ####[id number] [place] [address] Oxygen (Bld) [Partial pressure] 34 mm[Hg] Normal [facility] Comment on above: Performed By: #### M VPA4 ####[id number] [place] [address] PATIENT TEMPERATURE 37.0 degrees Normal [facility] Comment on above: Result Comment: NOTE : PATIENT RESULTS ARE NOT CORRECTED FOR TEMPERATURE. Performed By: #### M VPA4 ####[id number] [place] [address] PCO2 39 mmHg Normal [facility] Comment on above: Performed By: #### M VPA4 ####[id number] [place] [address] pH (Bld) 7.47 [pH] Normal [facility] Comment on above: Performed By: #### M VPA4 ####[id number] [place] [address] Potassium [Moles/Vol] 3.2 mmol/L Low 3.5 - 5.3 [facility] Comment on above: Performed By: #### M VPA4 ####[id number] [place] [address] SO2 54 % Normal [facility] Comment on above: Performed By: #### M VPA4 ####[id number] [place] [address] Sodium [Moles/Vol] 132 mmol/L Low 136 - 145 [facility] Comment on above: Performed By: #### M VPA4 ####[id number] [place] [address] Anion gap [Moles/Vol] 9 mmol/L Low 10 - 25 [facility] Comment on above: Performed By: #### M VPA4 ####[id number] [place] [address] BASE EXCESS-BLOOD 4.1 mmol/L Normal [facility] Comment on above: Performed By: #### M VPA4 ####[id number] [place] [address] BICARB, CALCULATED 29.2 mmol/L Normal [facility] Comment on above: Performed By: #### M VPA4 ####[id number] [place] [address] CALCIUM,IONIZED 1.10 mmol/L Normal 1.10 - 1.33 [facility] Comment on above: Performed By: #### M VPA4 ####[id number] [place] [address] Chloride [Moles/Vol] 97 mmol/L Low 98 - 107 [facility] Comment on above: Performed By: #### M VPA4 ####[id number] [place] [address] Glucose [Mass/Vol] 284 mg/dL High 74 - 99 [facility] Comment on above: Performed By: #### M VPA4 ####[id number] [place] [address] Hematocrit (Bld) [Volume fraction] 31.0 % Low 36.0 - 46.0 [facility] Comment on above: Performed By: #### M VPA4 ####[id number] [place] [address] Hemoglobin (Bld) [Mass/Vol] 10.4 g/dL Low 12.0 - 16.0 [facility] Comment on above: Performed By: #### M VPA4 ####[id number] [place] [address] Lactate [Moles/Vol] 1.9 mmol/L Normal 0.4 - 2.0 [facility] Comment on above: Performed By: #### M VPA4 ####[id number] [place] [address] OXY HGB 65.4 % Normal 45.0 - 75.0 [facility] Comment on above: Performed By: #### M VPA4 ####[id number] [place] [address] Oxygen (Bld) [Partial pressure] 41 mm[Hg] Normal [facility] Comment on above: Performed By: #### M VPA4 ####[id number] [place] [address] PATIENT TEMPERATURE 37.0 degrees Normal [facility] Comment on above: Result Comment: NOTE : PATIENT RESULTS ARE NOT CORRECTED FOR TEMPERATURE. Performed By: #### M VPA4 ####[id number] [place] [address] PCO2 45 mmHg Normal [facility] Comment on above: Performed By: #### M VPA4 ####[id number] [place] [address] pH (Bld) 7.42 [pH] Normal [facility] Comment on above: Performed By: #### M VPA4 ####[id number] [place] [address] Potassium [Moles/Vol] 3.3 mmol/L Low 3.5 - 5.3 [facility] Comment on above: Performed By: #### M VPA4 ####[id number] [place] [address] SO2 67 % Normal [facility] Comment on above: Performed By: #### M VPA4 ####[id number] [place] [address] Sodium [Moles/Vol] 132 mmol/L Low 136 - 145 [facility] Comment on above: Performed By: #### M VPA4 ####[id number] [place] [address] Magnesium, Serumon 2 Magnesium [Mass/Vol] 1.81 mg/dL See Below [facility] astroen terology-Too lwell 6 I Work Phone: Comment on above: Reference Range: 1.6 0 - 2.40 No Panel Informationon 07-19 227 mg/dL above high threshold 74 - 99 [facility]-Gastroen [facility]ology-Too lwell 6 I Work Phone: 221 mg/dL above high threshold 74 - 99 [facility]ology-Too lwell 6 I Work Phone: 54 % [facility]-Gastroen terology-Too lwell 6 I Work Phone: 37.0 {degrees} MG-Gastroe n terology-Too lwell 6 I Work Phone: Comment on above: NOTE: PATIENT RESULT S ARE NOT CORRECTED FOR TEMPERATURE. 133 mg/dL above high threshold 74 - 99 [facility]astroen [facility]ology-Too lwell 6 [facility] Work Phone: 163 mg/dL above high threshold 74 - 99 [facility]astroen [facility]ology-Too lwell 6 [facility] Work Phone: [phone] 1 [facility]-Gastroen terology-Too lwell 6 [facility] Work Phone: [phone] 1 [facility]astroen terology-Too lwell 6 [facility] Work Phone: [phone] 1 [facility]-Gastroen terology-Too lwell 6 [facility] Work Phone: [phone] 1 [facility]astroen [facility]ology-Too lwell 6 [facility] Work Phone: [phone] 1 [facility]astroen [facility]ology-Too lwell 6 I Work Phone: [phone] 1 [facility]astroen [facility]ology-Too lwell 6 I Work Phone: [phone] 1 [facility]ology-Too lwell 6 I Work Phone: [phone] 1 [facility]astroen [facility]ology-Too lwell 6 I Work Phone: [phone] [email or web address]?[email or web address] ?KgvrtybUO=[id number]&Date =03-22-2022&Time=11%3a42% 3a09%3a00&TestType=ECG&Si te=1&OutputType=PDF&Ext=P DF [facility] 6 [facility] Work Phone: [phone] Atrial fibrillation with rapid ventricular response with premature ventricular or aberrantly conducted complexes [facility]-Too [facility]well 6 [facility] Work Phone: Abnormal [facility]-Too l[facility] 6 [facility] Work Phone: [phone] 1 [facility]astroen [facility]ology-Too lwell 6 [facility] Work Phone: [phone] 1 [facility]astroen [facility]ology-Too lwell 6 [facility] Work Phone: [phone] mg/dL above high threshold 74 - 99 [facility]ology-Too lwell 6 [facility] Work Phone: 63 % [facility]astroen [facility]ology-Too lwell 6 [facility] Work Phone: 37.0 {degrees} MG-Gastroe n terology-Too lwell 6 [facility] Work Phone: Comment on above: NOTE: PATIENT RESULT S ARE NOT CORRECTED FOR TEMPERATURE. 82 % above high threshold 25 - 45 [facility]astro[facility]ology-Too lwell 6 [facility] Work Phone: 14.7 % above high threshold See Below [facility]astro[facility]ology-Too lwell 6 [facility] Work Phone: Comment on above: Reference Range: 11. 5 - 14.5 31.4 g/dL below low threshold See Below [facility]astroen [facility]ology-Too lwell 6 [facility] Work Phone: Comment on above: Reference Range: 32. 0 - 36.0 87 fL 80 - 100 [facility]ology-Too l[facility] 6 [facility] Work Phone: 0.0 {/100_WBC} 0.0-0.0 [facility]-Gastroe n terology-Too lwell 6 [facility] Work Phone: 11.6 {x10E9/L} above high threshold 4.4 - 11.3 [facility]ology-Too l[facility] 6 [facility] Work Phone: OT Evaluation v2-attemptedon 07-19-2022 OT Evaluation v2-attempted Normal [facility] RENAL FUNCTION PANELon 07-19 Anion gap [Moles/Vol] 15 mmol/L Normal 10 - 20 [facility] Comment on above: Performed By: #### R ENAL ####[id number] [place] [address] Calcium [Mass/Vol] 8.5 mg/dL Low 8.6 - 10.6 [facility] Comment on above: Performed By: #### R ENAL ####[id number] [place] [address] Chloride [Moles/Vol] 97 mmol/L Low 98 - 107 [facility] Comment on above: Performed By: #### R ENAL ####[id number] [place] [address] Creatinine [Mass/Vol] 2.37 mg/dL High 0.50 - 1.05 [facility] Comment on above: Performed By: #### R ENAL ####[id number] [place] [address] GFR/1.73 sq M.predicted among non-blacks MDRD (S/P/Bld) [Vol rate/Area] 23 mL/min/{1.73_m2} Abnormal >90 [facility] Comment on above: Result Comment: CALC ULATIONS OF ESTIMATED GFR ARE PERFORMED USING THE 2020 CKD-EPI STUDY REFIT EQUATION WITHOUT THE RACE VARIABLE FOR THE IDMS-TRACEABLE CREATININE METHODS.https://jasn.asnjournals.org/content/early/ ASN.4704690724 Performed By: #### R ENAL ####[id number] [place] [address] Glucose [Mass/Vol] 273 mg/dL High 74 - 99 [facility] Comment on above: Performed By: #### R ENAL ####[id number] [place] [address] HCO3 (Bld) [Moles/Vol] 29 mmol/L Normal 21 - 32 [facility] Comment on above: Performed By: #### R ENAL ####[id number] [place] [address] Phosphate [Mass/Vol] 4.0 mg/dL Normal 2.5 - 4.9 [facility] Comment on above: Result Comment: The performance characteristics of phosphorus testing in heparinized plasma have been validated by the individual laboratory site where testing is performed. Testing on heparinized plasma is not approved by the FDA; however, such approval is not necessary. Performed By: #### R ENAL ####[id number] [place] [address] Potassium [Moles/Vol] 3.7 mmol/L Normal 3.5 - 5.3 [facility] Comment on above: Performed By: #### R ENAL ####[id number] [place] [address] Sodium [Moles/Vol] 137 mmol/L Normal 136 - 145 [facility] Comment on above: Performed By: #### R ENAL ####[id number] [place] [address] Urea nitrogen [Mass/Vol] 68 mg/dL High 6 - 23 [facility] Comment on above: Performed By: #### R ENAL ####[id number] [place] [address] Radiologyon 07-19-2022 XR Chest Single view Normal [facility] 6 I Work Phone: Renal Function Panelon 07-19 Albumin BCP dye [Mass/Vol] 3.1 g/dL below low threshold 3.4 - 5.0 [facility] l[facility] 6 I Work Phone: Calcium [Mass/Vol] 8.1 mg/dL below low threshold 8.6 - 10.6 [facility] 6 I Work Phone: Chloride [Moles/Vol] 93 mmol/L below low threshold 98 - 107 [facility] 6 I Work Phone: CO2 [Moles/Vol] 34 mmol/L above high threshold 21 - 32 [facility] 6 I Work Phone: Creatinine [Mass/Vol] 1.74 mg/dL above high threshold See Below [facility] 6 I Work Phone: Comment on above: Reference Range: 0.5 0 - 1.05 Glucose [Mass/Vol] 219 mg/dL above high threshold 74 - 99 [facility] 6 I Work Phone: Phosphate [Mass/Vol] 1.9 mg/dL below low threshold 2.5 - 4.9 [facility] 6 I Work Phone: Comment on above: The performance juan a acteristics of phosphorus testing in heparinized plasma have been validated by the individual laboratory site where testing is performed. Testing on heparinized plasma is not approved by the FDA; however, such approval is not necessary. Potassium [Moles/Vol] 3.6 mmol/L 3.5 - 5.3 [facility] l[facility] 6 I Work Phone: Sodium [Moles/Vol] 136 mmol/L 136 - 145 [facility] tro[facility] lwell 6 I Work Phone: Urea nitrogen [Mass/Vol] 61 mg/dL above high threshold 6 - 23 [facility] 6 I Work Phone: Renal Function Panel 33 {mL/min/1.73m2} Abnormal >90 [facility] 6 I Work Phone: Comment on above: CALCULATIONS OF LASHAWN MATED GFR ARE PERFORMED USING THE 2020 CKD-EPI STUDY REFIT EQUATION WITHOUT THE RACE VARIABLE FOR THE IDMS-TRACEABLE CREATININE METHODS.https://jasn.asnjournals.org/content// ASN.1569227134 Renal Function Panel 13 mmol/L 10 - 20 [facility]ology-Too lwell 6 I Work Phone: Calcium [Mass/Vol] 8.5 mg/dL below low threshold 8.6 - 10.6 [facility] 6 I Work Phone: Chloride [Moles/Vol] 97 mmol/L below low threshold 98 - 107 [facility] 6 I Work Phone: CO2 [Moles/Vol] 29 mmol/L 21 - 32 [facility] en [facility]ology-Too lwell 6 I Work Phone: Creatinine [Mass/Vol] 2.37 mg/dL above high threshold See Below [facility] 6 I Work Phone: Comment on above: Reference Range: 0.5 0 - 1.05 Glucose [Mass/Vol] 273 mg/dL above high threshold 74 - 99 [facility] Work Phone: Phosphate [Mass/Vol] 4.0 mg/dL 2.5 - 4.9 [facility]roen [facility]ology-Too lwell 6 I Work Phone: Comment on above: The performance juan a acteristics of phosphorus testing in heparinized plasma have been validated by the individual laboratory site where testing is performed. Testing on heparinized plasma is not approved by the FDA; however, such approval is not necessary. Potassium [Moles/Vol] 3.7 mmol/L 3.5 - 5.3 [facility]ology-Too lwell 6 I Work Phone: Sodium [Moles/Vol] 137 mmol/L 136 - 145 [facility] troen [facility]ology-Too lwell 6 I Work Phone: Urea nitrogen [Mass/Vol] 68 mg/dL above high threshold 6 - 23 [facility] l[facility] 6 I Work Phone: Renal Function Panel 23 {mL/min/1.73m2} Abnormal >90 [facility] 6 I Work Phone: Comment on above: CALCULATIONS OF LASHAWN MATED GFR ARE PERFORMED USING THE 2020 CKD-EPI STUDY REFIT EQUATION WITHOUT THE RACE VARIABLE FOR THE IDMS-TRACEABLE CREATININE METHODS.https://jasn.asnjournals.org/content// ASN.[email or web address] Renal Function Panel 15 mmol/L 10 - 20 MG-G astroen terology-Too lwell 6 I Work Phone: TH CHEST 1 VIEWon 07-19-2022 TH CHEST 1 VIEW Normal [facility] Transesophageal Echoon 11-07 -2022 Transesophageal Echo Normal [facility] Vital signson 07-19-2022 Oxygen saturation in Venous blood 71 % 45 - 75 MG-Gastroen terology-Too lwell 6 [facility] Work Phone: ARTERIAL BLOOD GASon 022 BASE EXCESS-BLOOD -6.4 mmol/L Low -2.0 - 3.0 [facility] Comment on above: Performed By: #### B LGA2 ####[id number] [place] [address] BICARB, CALCULATED 18.2 mmol/L Low 22.0 - 26.0 [facility] Comment on above: Performed By: #### B LGA2 ####[id number] [place] [address] OXY HGB 96.0 % Normal 94.0 - 98.0 [facility] Comment on above: Performed By: #### B LGA2 ####[id number] [place] [address] Oxygen (Bld) [Partial pressure] 95 mm[Hg] Normal 85 - 95 [facility] Comment on above: Performed By: #### B LGA2 ####[id number] [place] [address] PATIENT TEMPERATURE 37.0 degrees C Normal [facility] Comment on above: Result Comment: NOTE : PATIENT RESULTS ARE NOT CORRECTED FOR TEMPERATURE. Performed By: #### B LGA2 ####[id number] [place] [address] PCO2 33 mmHg Low 38 - 42 [facility] Comment on above: Performed By: #### B LGA2 ####[id number] [place] [address] pH (Bld) 7.35 [pH] Low 7.38 - 7.42 [facility] Comment on above: Performed By: #### B LGA2 ####[id number] [place] [address] SO2 99 % Normal 94 - 100 [facility] Comment on above: Performed By: #### B LGA2 ####[id number] [place] [address] CALCIUM, IONIZEDon 2 CALCIUM,IONIZED 1.16 mmol/L Normal 1.10 - 1.33 [facility] Comment on above: Result Comment: The performance characteristics of ionized calcium tested in heparinized plasma or serum have been validated by the individual laboratory site where testing is performed. Testing on heparinized plasma or serum is not approved by the FDA; however, such approval is not necessary. Performed By: #### I ONC1 ####[id number] [place] [address] CBCon 07-18-2022 Erythrocyte distribution width (RBC) [Ratio] 14.6 % High 11.5 - 14.5 [facility] Comment on above: Performed By: #### C BC ####[id number] [place] [address] Hematocrit (Bld) [Volume fraction] 39.4 % Normal 36.0 - 46.0 [facility] Comment on above: Performed By: #### C BC ####[id number] [place] [address] Hemoglobin (Bld) [Mass/Vol] 12.4 g/dL Normal 12.0 - 16.0 [facility] Comment on above: Performed By: #### C BC ####[id number] [place] [address] MCHC (RBC) [Mass/Vol] 31.5 g/dL Low 32.0 - 36.0 [facility] Comment on above: Performed By: #### C BC ####[id number] [place] [address] MCV (RBC) [Entitic vol] 88 fL Normal 80 - 100 [facility] Comment on above: Performed By: #### C BC ####[id number] [place] [address] NUCLEATED RBC 0.2 /100 WBC Normal 0.0-0.0 [facility] Comment on above: Performed By: #### C BC ####[id number] [place] [address] Platelets (Bld) [#/Vol] 268 10*3/uL Normal 150 - 450 [facility] Comment on above: Performed By: #### C BC ####[id number] [place] [address] RBC 4.48 x10E12/L Normal 4.00 - 5.20 [facility] Comment on above: Performed By: #### C BC ####[id number] [place] [address] WBC (Bld) [#/Vol] 14.9 10*3/uL High 4.4 - 11.3 [facility] Comment on above: Performed By: #### C BC ####[id number] [place] [address] COAGULATION SCREENon 022 aPTT Coag (Bld) [Time] 34 s Normal 26 - 39 [facility] Comment on above: Result Comment: THE APTT IS NO LONGER USED FOR MONITORING UNFRACTIONATED HEPARIN THERAPY. FOR MONITORING HEPARIN THERAPY, USE THE HEPARIN ASSAY. Performed By: #### C OAGS ####[id number] [place] [address] PT Coag (PPP) [Time] 27.4 s High 9.8 - 13.4 [facility] Comment on above: Performed By: #### C OAGS ####[id number] [place] [address] PT, INR 2.3 High 0.9 - 1.1 [facility] Comment on above: Performed By: #### C OAGS ####[id number] [place] [address] Calcium, Ionized Levelon Calcium, Ionized Level 1.16 mmol/L See Below M G-Gastroen terology-Too lopez 6 [facility] Work Phone: Comment on above: Reference Range: 1.1 0 - 1.33 The performance characteristics of ionized calcium tested in heparinized plasma or serum have been validated by the individual laboratory site where testing is performed. Testing on heparinized plasma or serum is not approved by the FDA; however, such approval is not necessary. Clinical Event Note-HF staff noteon 07-18-2022 Clinical Event Note-HF staff note Normal [facility] Consult-Endocrinologyon 0 Consult-Endocrinology Normal [facility] Daily Progress Note - Critic al Care-HF ICUon 07-18-2022 Daily Progress Note - Critical Care-HF ICU Normal [facility] GLUCOSE-POCTon 07-18-2022 Glucose [Mass/Vol] 304 mg/dL High 74 - 99 [facility] Comment on above: Performed By: #### G MANJULA ####[id number] [place] [address] Glucose [Mass/Vol] 302 mg/dL High 74 - 99 [facility] Comment on above: Performed By: #### G MANJULA ####[id number] [place] [address] Glucose [Mass/Vol] 267 mg/dL High 74 - 99 [facility] Comment on above: Performed By: #### G MANJULA ####[id number] [place] [address] HEPARIN ASSAY,UFHon 07-18-20 22 HEPARIN ASSAY,UFH 1.2 IU/mL Critically abnormal [facility] Comment on above: Order Comment: SOREN RICHMOND REPORTED TO RAMÓN MAE, 07/18/2022 19:18 Result Comment: The therapeutic reference range for UFH may be either 0.3-0.6 IU/mL or 0.3-0.7 IU/mL based on the clinical setting for anticoagulant therapy and the associated nomogram used. For heparin dosing guidelines based on clinical scenario and Heparin Assay results, please refer to local Pharmacy and the [facility] Guidelines for Anticoagulation therapy available on the [facility] intranet at:[email or web address]_Guidelines_for_[email or web address].aspxCFABIENNE RICHMOND REPORTED TO RAMÓN MAE, 07/18/2022 19:18 Performed By: #### H AUF ####[id number] [place] [address] HEPARIN ASSAY,UFH 1.6 IU/mL Critically abnormal [facility] Comment on above: Order Comment: SOREN RICHMOND REPORTED TO [facility] , 07/18/2022 16:51 Result Comment: The therapeutic reference range for UFH may be either 0.3-0.6 IU/mL or 0.3-0.7 IU/mL based on the clinical setting for anticoagulant therapy and the associated nomogram used. For heparin dosing guidelines based on clinical scenario and Heparin Assay results, please refer to local Pharmacy and the [facility] Guidelines for Anticoagulation therapy available on the [facility] intranet at:[email or web address]_Guidelines_for_Anticoagu.aspxCRIFacundo RICHMOND REPORTED TO [facility] , 07/18/2022 16:51 Performed By: #### H AUF ####[id number] [place] [address] HEPARIN ASSAY,UFH >2.0 Critically abnormal [facility] Comment on above: Order Comment: Kateryna hand critical heparin to/RB by Jayme Craft. Wanted result released,07/18/2022 13:41 Result Comment: The therapeutic reference range for UFH may be either 0.3-0.6 IU/mL or 0.3-0.7 IU/mL based on the clinical setting for anticoagulant therapy and the associated nomogram used. For heparin dosing guidelines based on clinical scenario and Heparin Assay results, please refer to local Pharmacy and the [facility] Guidelines for Anticoagulation therapy available on the [facility] intranet at:[email or web address]_Guidelines_for_Anticoagu.aspxCalled critical heparin to/RB by Jayme Craft. Wanted result released,07/18/2022 13:41 Performed By: #### H AUF ####[id number] [place] [address] Heparin assay, UFHon 022 Heparin unfractionated Chromogenic method Qn (PPP) 1.2 {IU/mL} Critically abnormal MG-Gastroen terology-Too lwell 6 I Work Phone: Comment on above: The therapeutic refe rence range for UFH may be either 0.3-0.6 IU/mL or 0.3-0.7 IU/mL based on the clinical setting for anticoagulant therapy and the associated nomogram used. For heparin dosing guidelines based on clinical scenario and Heparin Assay results, please refer to local Pharmacy and the [facility] Guidelines for Anticoagulation therapy available on the [facility] intranet at:[email or web address]/Pharmacy/Pages/[facility]_Guidelines_for_Anticoagu.aspxHADEBBIE RB TO CARLOS ANSLEY, 07/19/2022 00:55 Heparin unfractionated Chromogenic method Qn (PPP) 1.2 {IU/mL} Critically abnormal [facility]-Gastroen terology-Too lwell 6 [facility] Work Phone: Comment on above: The therapeutic refe rence range for UFH may be either 0.3-0.6 IU/mL or 0.3-0.7 IU/mL based on the clinical setting for anticoagulant therapy and the associated nomogram used. For heparin dosing guidelines based on clinical scenario and Heparin Assay results, please refer to local Pharmacy and the [facility] Guidelines for Anticoagulation therapy available on the [facility] intranet at:[email or web address]/[email or web address]/Pages/[facility]_Guidelines_for_Anticoagu.aspxCFABIENNE RICHMOND REPORTED TO RAMÓN MAE, 07/18/2022 19:18 Heparin unfractionated Chromogenic method Qn (PPP) 1.6 {IU/mL} Critically abnormal MG-Gastroen terology-Too lwell 6 [facility] Work Phone: Comment on above: The therapeutic refe rence range for UFH may be either 0.3-0.6 IU/mL or 0.3-0.7 IU/mL based on the clinical setting for anticoagulant therapy and the associated nomogram used. For heparin dosing guidelines based on clinical scenario and Heparin Assay results, please refer to local Pharmacy and the [facility] Guidelines for Anticoagulation therapy available on the [facility] intranet at:[email or web address]/[email or web address]/Pages/[facility]_Guidelines_for_Anticoagu.aspxCRIT BASILIO REPORTED TO RAMÓN , 07/18/2022 16:51 Heparin unfractionated Chromogenic method Qn (PPP) >2.0 Critically abnormal MG-Gastroen terology-Too lwell 6 [facility] Work Phone: Comment on above: The therapeutic refe rence range for UFH may be either 0.3-0.6 IU/mL or 0.3-0.7 IU/mL based on the clinical setting for anticoagulant therapy and the associated nomogram used. For heparin dosing guidelines based on clinical scenario and Heparin Assay results, please refer to local Pharmacy and the [facility] Guidelines for Anticoagulation therapy available on the [facility] intranet at:[email or web address]/Pages/[facility]_Guidelines_for_Anticoagu.aspxCalled critical heparin to/RB by Jayme Craft. Wanted result released, 07/18/2022 13:41 LACTATEon 07-18-2022 Lactate [Moles/Vol] 1.3 mmol/L Normal 0.4 - 2.0 [facility] Comment on above: Result Comment: Susan puncture immediately after or during the administration of Metamizole may lead to falsely low results. Testing should be performed immediately prior to Metamizole dosing. Performed By: #### L ACT ####[id number] [place] [address] Laboratory - Chemistry and C hemistry - challengeon 07-18-2022 Anion gap 4 (BldMV) [Moles/Vol] 9 mmol/L below low threshold 10 - 25 MG-Gastroen terology-Too lwell 6 [facility] Work Phone: Base excess Calc (BldMV) [Moles/Vol] 4.1 mmol/L MG-Gastroen terology-Too lwell 6 [facility] Work Phone: Calcium.ionized (BldMV) [Moles/Vol] 1.10 mmol/L See Below MG-Gastroen terology-Too lwell 6 [facility] Work Phone: Comment on above: Reference Range: 1.1 0 - 1.33 Chloride [Moles/Vol] 97 mmol/L below low threshold 98 - 107 MG-Gastroen terology-Too lwell 6 [facility] Work Phone: [phone] CO2 (BldMV) [Partial pressure] 45 {mmHg} MG-Gastroen terology-Too lwell 6 I Work Phone: [phone] Glucose [Mass/Vol] 284 mg/dL above high threshold 74 - 99 MG-Gastroen terology-Too lwell 6 I Work Phone: [phone] HCO3 (BldMV) [Moles/Vol] 29.2 mmol/L MG-Gastroen terology-Too lwell 6 I Work Phone: [phone] Lactate (BldMV) [Moles/Vol] 1.9 mmol/L 0.4 - 2.0 MG-Gastroen terology-Too lwell 6 I Work Phone: [phone] Oxygen (BldMV) [Partial pressure] 41 {mmHg} MG-Gastroen terology-Too lwell 6 I Work Phone: [phone] Oxyhemoglobin (BldMV) [Mass fraction] 65.4 % See Below MG-Gastroen terology-Too lwell 6 I Work Phone: [phone] Comment on above: Reference Range: 45. 0 - 75.0 pH (BldMV) 7.42 1 MG-Gastroen terology-Too lwell 6 I Work Phone: [phone] Potassium (BldMV) [Moles/Vol] 3.3 mmol/L below low threshold 3.5 - 5.3 MG-Gastroen terology-Too lwell 6 I Work Phone: [phone] Sodium (BldMV) [Moles/Vol] 132 mmol/L below low threshold 136 - 145 MG-Gastroen terology-Too lwell 6 I Work Phone: [phone] Anion gap 4 (BldMV) [Moles/Vol] 11 mmol/L 10 - 25 MG-Gastroen terology-Too lwell 6 I Work Phone: [phone] Base excess Calc (BldMV) [Moles/Vol] 2.3 mmol/L MG-Gastroen terology-Too lwell 6 I Work Phone: Calcium.ionized (BldMV) [Moles/Vol] 1.17 mmol/L See Below MG-Gastroen terology-Too lwell 6 I Work Phone: Comment on above: Reference Range: 1.1 0 - 1.33 Chloride [Moles/Vol] 96 mmol/L below low threshold 98 - 107 MG-Gastroen terology-Too lwell 6 I Work Phone: CO2 (BldMV) [Partial pressure] 46 {mmHg} MG-Gastroen terology-Too lwell 6 I Work Phone: Glucose [Mass/Vol] 310 mg/dL above high threshold 74 - 99 MG-Gastroen terology-Too lwell 6 I Work Phone: HCO3 (BldMV) [Moles/Vol] 27.8 mmol/L MG-Gastroen terology-Too lwell 6 I Work Phone: Lactate (BldMV) [Moles/Vol] 1.9 mmol/L 0.4 - 2.0 MG-Gastroen terology-Too lwell 6 I Work Phone: Oxygen (BldMV) [Partial pressure] 40 {mmHg} MG-Gastroen terology-Too lwell 6 I Work Phone: Oxyhemoglobin (BldMV) [Mass fraction] 58.3 % See Below MG-Gastroen terology-Too lwell 6 I Work Phone: Comment on above: Reference Range: 45. 0 - 75.0 pH (BldMV) 7.39 1 MG-Gastroen terology-Too lwell 6 I Work Phone: Potassium (BldMV) [Moles/Vol] 3.6 mmol/L 3.5 - 5.3 MG-Gastroen terology-Too lwell 6 [facility] Work Phone: Sodium (BldMV) [Moles/Vol] 131 mmol/L below low threshold 136 - 145 MG-Gastroen terology-Too lwell 6 I Work Phone: Anion gap 4 (BldMV) [Moles/Vol] 11 mmol/L 10 - 25 MG-Gastroen terology-Too lwell 6 I Work Phone: Base excess Calc (BldMV) [Moles/Vol] -0.4 mmol/L MG-Gastroen terology-Too lwell 6 I Work Phone: Calcium.ionized (BldMV) [Moles/Vol] 1.15 mmol/L See Below MG-Gastroen terology-Too lwell 6 I Work Phone: Comment on above: Reference Range: 1.1 0 - 1.33 Chloride [Moles/Vol] 98 mmol/L 98 - 107 MG-G astroen terology-Too lwell 6 I Work Phone: CO2 (BldMV) [Partial pressure] 42 {mmHg} MG-Gastroen terology-Too lwell 6 I Work Phone: Glucose [Mass/Vol] 303 mg/dL above high threshold 74 - 99 MG-Gastroen terology-Too lwell 6 I Work Phone: HCO3 (BldMV) [Moles/Vol] 24.8 mmol/L MG-Gastroen terology-Too lwell 6 I Work Phone: Lactate (BldMV) [Moles/Vol] 2.0 mmol/L 0.4 - 2.0 MG-Gastroen terology-Too lwell 6 I Work Phone: Oxygen (BldMV) [Partial pressure] 43 {mmHg} MG-Gastroen terology-Too lwell 6 I Work Phone: Oxyhemoglobin (BldMV) [Mass fraction] 68.3 % See Below MG-Gastroen terology-Too lwell 6 I Work Phone: Comment on above: Reference Range: 45. 0 - 75.0 pH (BldMV) 7.38 1 MG-Gastroen terology-Too lwell 6 I Work Phone: Potassium (BldMV) [Moles/Vol] 3.7 mmol/L 3.5 - 5.3 MG-Gastroen terology-Too lwell 6 I Work Phone: Sodium (BldMV) [Moles/Vol] 130 mmol/L below low threshold 136 - 145 MG-Gastroen terology-Too lwell 6 I Work Phone: [phone] Anion gap 4 (BldMV) [Moles/Vol] 11 mmol/L 10 - 25 MG-Gastroen terology-Too lwell 6 I Work Phone: [phone] Base excess Calc (BldMV) [Moles/Vol] -2.1 mmol/L MG-Gastroen terology-Too lwell 6 I Work Phone: [phone] Calcium.ionized (BldMV) [Moles/Vol] 1.19 mmol/L See Below MG-Gastroen terology-Too lwell 6 I Work Phone: [phone] Comment on above: Reference Range: 1.1 0 - 1.33 Chloride [Moles/Vol] 97 mmol/L below low threshold 98 - 107 MG-Gastroen terology-Too lwell 6 I Work Phone: [phone] CO2 (BldMV) [Partial pressure] 44 {mmHg} MG-Gastroen terology-Too lwell 6 I Work Phone: [phone] Glucose [Mass/Vol] 320 mg/dL above high threshold 74 - 99 MG-Gastroen terology-Too lwell 6 I Work Phone: [phone] HCO3 (BldMV) [Moles/Vol] 23.7 mmol/L MG-Gastroen terology-Too lwell 6 I Work Phone: Lactate (BldMV) [Moles/Vol] 1.3 mmol/L 0.4 - 2.0 MG-Gastroen terology-Too lwell 6 I Work Phone: Oxygen (BldMV) [Partial pressure] 43 {mmHg} MG-Gastroen terology-Too lwell 6 I Work Phone: Oxyhemoglobin (BldMV) [Mass fraction] 65.0 % See Below MG-Gastroen terology-Too lwell 6 I Work Phone: Comment on above: Reference Range: 45. 0 - 75.0 pH (BldMV) 7.34 1 MG-Gastroen terology-Too lwell 6 I Work Phone: Potassium (BldMV) [Moles/Vol] 4.1 mmol/L 3.5 - 5.3 MG-Gastroen terology-Too lwell 6 I Work Phone: Sodium (BldMV) [Moles/Vol] 128 mmol/L below low threshold 136 - 145 MG-Gastroen terology-Too lwell 6 I Work Phone: Anion gap 4 (BldMV) [Moles/Vol] 11 mmol/L 10 - 25 MG-Gastroen terology-Too lwell 6 I Work Phone: Base excess Calc (BldMV) [Moles/Vol] -3.3 mmol/L MG-Gastroen terology-Too lwell 6 I Work Phone: Calcium.ionized (BldMV) [Moles/Vol] 1.17 mmol/L See Below MG-Gastroen terology-Too lwell 6 I Work Phone: Comment on above: Reference Range: 1.1 0 - 1.33 Chloride [Moles/Vol] 97 mmol/L below low threshold 98 - 107 MG-Gastroen terology-Too lwell 6 I Work Phone: CO2 (BldMV) [Partial pressure] 40 {mmHg} MG-Gastroen terology-Too lwell 6 I Work Phone: Glucose [Mass/Vol] 341 mg/dL above high threshold 74 - 99 MG-Gastroen terology-Too lwell 6 I Work Phone: HCO3 (BldMV) [Moles/Vol] 22.1 mmol/L MG-Gastroen terology-Too lwell 6 I Work Phone: Lactate (BldMV) [Moles/Vol] 1.4 mmol/L 0.4 - 2.0 MG-Gastroen terology-Too lwell 6 [facility] Work Phone: Oxygen (BldMV) [Partial pressure] 39 {mmHg} MG-Gastroen terology-Too lwell 6 I Work Phone: Oxyhemoglobin (BldMV) [Mass fraction] 58.9 % See Below MG-Gastroen terology-Too lwell 6 I Work Phone: Comment on above: Reference Range: 45. 0 - 75.0 pH (BldMV) 7.35 1 MG-Gastroen terology-Too lwell 6 I Work Phone: Potassium (BldMV) [Moles/Vol] 4.4 mmol/L 3.5 - 5.3 MG-Gastroen terology-Too lwell 6 I Work Phone: Sodium (BldMV) [Moles/Vol] 126 mmol/L below low threshold 136 - 145 MG-Gastroen terology-Too lwell 6 I Work Phone: Base excess Calc (BldV) [Moles/Vol] -4.3000 mmol/L below low threshold -2.0 - 3.0 MG-Gastroen terology-Too lwell 6 I Work Phone: CO2 (BldV) [Partial pressure] 42 mm[Hg] 41 - 51 MG-Gastroen terology-Too lwell 6 I Work Phone: HCO3 (Bld) [Moles/Vol] 21.6 mmol/L below low threshold See Below MG-Gastroen terology-Too lwell 6 I Work Phone: Comment on above: Reference Range: 22. 0 - 26.0 Oxygen (BldV) [Partial pressure] 39 mm[Hg] 35 - 45 MG-Gastroen terology-Too lwell 6 I Work Phone: Oxyhemoglobin (BldV) [Mass fraction] 54.9 % See Below MG-Gastroen terology-Too ell 6 I Work Phone: Comment on above: Reference Range: 45. 0 - 75.0 pH (BldV) 7.32 [pH] below low threshold See Below MG-Gastroen terology-Too lwell 6 I Work Phone: Comment on above: Reference Range: 7.3 3 - 7.43 Base excess Calc (Bld) [Moles/Vol] -6.4000 mmol/L below low threshold -2.0 - 3.0 MG-Gastroen terology-Too lwell 6 I Work Phone: CO2 (Bld) [Partial pressure] 33 mm[Hg] below low threshold 38 - 42 MG-Gastroen terology-Too ell 6 I Work Phone: HCO3 (Bld) [Moles/Vol] 18.2 mmol/L below low threshold See Below MG-Gastroen terology-Too lwell 6 I Work Phone: Comment on above: Reference Range: 22. 0 - 26.0 Oxygen (Bld) [Partial pressure] 95 mm[Hg] 85 - 95 MG-Gastroen terology-Too ell 6 I Work Phone: Oxyhemoglobin (BldA) [Mass fraction] 96.0 % See Below MG-Gastroen terology-Too ell 6 I Work Phone: Comment on above: Reference Range: 94. 0 - 98.0 pH (Bld) 7.35 [pH] below low threshold See Below MG-Gastroen terology-Too ell 6 I Work Phone: Comment on above: Reference Range: 7.3 8 - 7.42 Laboratory - Coagulationon 1 09-17-2021 aPTT Coag (PPP) [Time] 34 s 26 - 39 MG -Gastroen terology-Too ell 6 I Work Phone: Comment on above: THE APTT IS NO LONGE R USED FOR MONITORING UNFRACTIONATED HEPARIN THERAPY. FOR MONITORING HEPARIN THERAPY, USE THE HEPARIN ASSAY. INR Coag (PPP) [Relative time] 2.3 {INR} above high threshold 0.9 - 1.1 MG-Gastroen terology-Too lwell 6 I Work Phone: PT Coag (PPP) [Time] 27.4 s above high threshold 9.8 - 13.4 MG-Gastroen terology-Too lwell 6 [facility] Work Phone: Laboratory - Hematology and Cell countson 07-18-2022 Hematocrit Est (Bld) [Volume fraction] 31.0 % below low threshold See Below MG-Gastroen terology-Too lwell 6 [facility] Work Phone: Comment on above: Reference Range: 36. 0 - 46.0 Hemoglobin (Bld) [Mass/Vol] 10.4 g/dL below low threshold See Below MG-Gastroen terology-Too lwell 6 [facility] Work Phone: Comment on above: Reference Range: 12. 0 - 16.0 Hematocrit Est (Bld) [Volume fraction] 33.0 % below low threshold See Below MG-Gastroen terology-Too lwell 6 [facility] Work Phone: Comment on above: Reference Range: 36. 0 - 46.0 Hemoglobin (Bld) [Mass/Vol] 10.9 g/dL below low threshold See Below MG-Gastroen terology-Too lwell 6 [facility] Work Phone: Comment on above: Reference Range: 12. 0 - 16.0 Hematocrit Est (Bld) [Volume fraction] 33.0 % below low threshold See Below MG-Gastroen terology-Too lwell 6 [facility] Work Phone: Comment on above: Reference Range: 36. 0 - 46.0 Hemoglobin (Bld) [Mass/Vol] 11.0 g/dL below low threshold See Below MG-Gastroen terology-Too lwell 6 I Work Phone: Comment on above: Reference Range: 12. 0 - 16.0 Hematocrit Est (Bld) [Volume fraction] 35.0 % below low threshold See Below MG-Gastroen terology-Too lwell 6 [facility] Work Phone: Comment on above: Reference Range: 36. 0 - 46.0 Hemoglobin (Bld) [Mass/Vol] 11.6 g/dL below low threshold See Below MG-Gastroen terology-Too lwell 6 [facility] Work Phone: Comment on above: Reference Range: 12. 0 - 16.0 Hematocrit Est (Bld) [Volume fraction] 35.0 % below low threshold See Below MG-Gastroen terology-Too lwell 6 I Work Phone: Comment on above: Reference Range: 36. 0 - 46.0 Hemoglobin (Bld) [Mass/Vol] 11.6 g/dL below low threshold See Below MG-Gastroen terology-Too lwell 6 I Work Phone: Comment on above: Reference Range: 12. 0 - 16.0 Hematocrit (Bld) [Volume fraction] 39.4 % See Below MG-Gastroen terology-Too lwell 6 I Work Phone: Comment on above: Reference Range: 36. 0 - 46.0 Hemoglobin (Bld) [Mass/Vol] 12.4 g/dL See Below MG-Gastroen terology-Too lwell 6 I Work Phone: Comment on above: Reference Range: 12. 0 - 16.0 Platelets (Bld) [#/Vol] 268 10*3/uL 150 - 450 [facility] Work Phone: RBC (Bld) [#/Vol] 4.48 {x10E12/L} See Below [facility] Work Phone: Comment on above: Reference Range: 4.0 0 - 5.20 Lactate, Levelon 07-18-2022 Lactate [Moles/Vol] 1.3 mmol/L 0.4 - 2.0 [facility] I Work Phone: Comment on above: Venipuncture immedia tely after or during the administration of Metamizole may lead to falsely low results. Testing should be performed immediately prior to Metamizole dosing. MAGNESIUMon 07-18-2022 Magnesium [Mass/Vol] 2.28 mg/dL Normal 1.60 - 2.40 [facility] Comment on above: Performed By: #### M G ####[id number] [place] [address] MV FULL PANELon 07-18-2022 Anion gap [Moles/Vol] 11 mmol/L Normal 10 - 25 [facility] Comment on above: Performed By: #### M VPA4 ####[id number] [place] [address] BASE EXCESS-BLOOD 2.3 mmol/L Normal [facility] Comment on above: Performed By: #### M VPA4 ####[id number] [place] [address] BICARB, CALCULATED 27.8 mmol/L Normal [facility] Comment on above: Performed By: #### M VPA4 ####[id number] [place] [address] CALCIUM,IONIZED 1.17 mmol/L Normal 1.10 - 1.33 [facility] Comment on above: Performed By: #### M VPA4 ####[id number] [place] [address] Chloride [Moles/Vol] 96 mmol/L Low 98 - 107 [facility] Comment on above: Performed By: #### M VPA4 ####[id number] [place] [address] Glucose [Mass/Vol] 310 mg/dL High 74 - 99 [facility] Comment on above: Performed By: #### M VPA4 ####[id number] [place] [address] Hematocrit (Bld) [Volume fraction] 33.0 % Low 36.0 - 46.0 [facility] Comment on above: Performed By: #### M VPA4 ####[id number] [place] [address] Hemoglobin (Bld) [Mass/Vol] 10.9 g/dL Low 12.0 - 16.0 [facility] Comment on above: Performed By: #### M VPA4 ####[id number] [place] [address] Lactate [Moles/Vol] 1.9 mmol/L Normal 0.4 - 2.0 [facility] Comment on above: Performed By: #### M VPA4 ####[id number] [place] [address] OXY HGB 58.3 % Normal 45.0 - 75.0 [facility] Comment on above: Performed By: #### M VPA4 ####[id number] [place] [address] Oxygen (Bld) [Partial pressure] 40 mm[Hg] Normal [facility] Comment on above: Performed By: #### M VPA4 ####[id number] [place] [address] PATIENT TEMPERATURE 37.0 degrees Normal [facility] Comment on above: Result Comment: NOTE : PATIENT RESULTS ARE NOT CORRECTED FOR TEMPERATURE. Performed By: #### M VPA4 ####[id number] [place] [address] PCO2 46 mmHg Normal [facility] Comment on above: Performed By: #### M VPA4 ####[id number] [place] [address] pH (Bld) 7.39 [pH] Normal [facility] Comment on above: Performed By: #### M VPA4 ####[id number] [place] [address] Potassium [Moles/Vol] 3.6 mmol/L Normal 3.5 - 5.3 [facility] Comment on above: Performed By: #### M VPA4 ####[id number] [place] [address] SO2 60 % Normal [facility] Comment on above: Performed By: #### M VPA4 ####[id number] [place] [address] Sodium [Moles/Vol] 131 mmol/L Low 136 - 145 [facility] Comment on above: Performed By: #### M VPA4 ####[id number] [place] [address] Anion gap [Moles/Vol] 11 mmol/L Normal 10 - 25 [facility] Comment on above: Performed By: #### M VPA4 ####[id number] [place] [address] BASE EXCESS-BLOOD -0.4 mmol/L Normal [facility] Comment on above: Performed By: #### M VPA4 ####[id number] [place] [address] BICARB, CALCULATED 24.8 mmol/L Normal [facility] Comment on above: Performed By: #### M VPA4 ####[id number] [place] [address] CALCIUM,IONIZED 1.15 mmol/L Normal 1.10 - 1.33 [facility] Comment on above: Performed By: #### M VPA4 ####[id number] [place] [address] Chloride [Moles/Vol] 98 mmol/L Normal 98 - 107 [facility] Comment on above: Performed By: #### M VPA4 ####[id number] [place] [address] Glucose [Mass/Vol] 303 mg/dL High 74 - 99 [facility] Comment on above: Performed By: #### M VPA4 ####[id number] [place] [address] Hematocrit (Bld) [Volume fraction] 33.0 % Low 36.0 - 46.0 [facility] Comment on above: Performed By: #### M VPA4 ####[id number] [place] [address] Hemoglobin (Bld) [Mass/Vol] 11.0 g/dL Low 12.0 - 16.0 [facility] Comment on above: Performed By: #### M VPA4 ####[id number] [place] [address] Lactate [Moles/Vol] 2.0 mmol/L Normal 0.4 - 2.0 [facility] Comment on above: Performed By: #### M VPA4 ####[id number] [place] [address] OXY HGB 68.3 % Normal 45.0 - 75.0 [facility] Comment on above: Performed By: #### M VPA4 ####[id number] [place] [address] Oxygen (Bld) [Partial pressure] 43 mm[Hg] Normal [facility] Comment on above: Performed By: #### M VPA4 ####[id number] [place] [address] PATIENT TEMPERATURE 37.0 degrees Normal [facility] Comment on above: Result Comment: NOTE : PATIENT RESULTS ARE NOT CORRECTED FOR TEMPERATURE. Performed By: #### M VPA4 ####[id number] [place] [address] PCO2 42 mmHg Normal [facility] Comment on above: Performed By: #### M VPA4 ####[id number] [place] [address] pH (Bld) 7.38 [pH] Normal [facility] Comment on above: Performed By: #### M VPA4 ####[id number] [place] [address] Potassium [Moles/Vol] 3.7 mmol/L Normal 3.5 - 5.3 [facility] Comment on above: Performed By: #### M VPA4 ####[id number] [place] [address] SO2 70 % Normal [facility] Comment on above: Performed By: #### M VPA4 ####[id number] [place] [address] Sodium [Moles/Vol] 130 mmol/L Low 136 - 145 [facility] Comment on above: Performed By: #### M VPA4 ####[id number] [place] [address] Anion gap [Moles/Vol] 11 mmol/L Normal 10 - 25 [facility] Comment on above: Performed By: #### M VPA4 ####[id number] [place] [address] BASE EXCESS-BLOOD -2.1 mmol/L Normal [facility] Comment on above: Performed By: #### M VPA4 ####[id number] [place] [address] BICARB, CALCULATED 23.7 mmol/L Normal [facility] Comment on above: Performed By: #### M VPA4 ####[id number] [place] [address] CALCIUM,IONIZED 1.19 mmol/L Normal 1.10 - 1.33 [facility] Comment on above: Performed By: #### M VPA4 ####[id number] [place] [address] Chloride [Moles/Vol] 97 mmol/L Low 98 - 107 [facility] Comment on above: Performed By: #### M VPA4 ####[id number] [place] [address] Glucose [Mass/Vol] 320 mg/dL High 74 - 99 [facility] Comment on above: Performed By: #### M VPA4 ####[id number] [place] [address] Hematocrit (Bld) [Volume fraction] 35.0 % Low 36.0 - 46.0 [facility] Comment on above: Performed By: #### M VPA4 ####[id number] [place] [address] Hemoglobin (Bld) [Mass/Vol] 11.6 g/dL Low 12.0 - 16.0 [facility] Comment on above: Performed By: #### M VPA4 ####[id number] [place] [address] Lactate [Moles/Vol] 1.3 mmol/L Normal 0.4 - 2.0 [facility] Comment on above: Performed By: #### M VPA4 ####[id number] [place] [address] OXY HGB 65.0 % Normal 45.0 - 75.0 [facility] Comment on above: Performed By: #### M VPA4 ####[id number] [place] [address] Oxygen (Bld) [Partial pressure] 43 mm[Hg] Normal [facility] Comment on above: Performed By: #### M VPA4 ####[id number] [place] [address] PATIENT TEMPERATURE 37.0 degrees Normal [facility] Comment on above: Result Comment: NOTE : PATIENT RESULTS ARE NOT CORRECTED FOR TEMPERATURE. Performed By: #### M VPA4 ####[id number] [place] [address] PCO2 44 mmHg Normal [facility] Comment on above: Performed By: #### M VPA4 ####[id number] [place] [address] pH (Bld) 7.34 [pH] Normal [facility] Comment on above: Performed By: #### M VPA4 ####[id number] [place] [address] Potassium [Moles/Vol] 4.1 mmol/L Normal 3.5 - 5.3 [facility] Comment on above: Performed By: #### M VPA4 ####[id number] [place] [address] SO2 67 % Normal [facility] Comment on above: Performed By: #### M VPA4 ####[id number] [place] [address] Sodium [Moles/Vol] 128 mmol/L Low 136 - 145 [facility] Comment on above: Performed By: #### M VPA4 ####[id number] [place] [address] Anion gap [Moles/Vol] 11 mmol/L Normal 10 - 25 [facility] Comment on above: Performed By: #### M VPA4 ####[id number] [place] [address] BASE EXCESS-BLOOD -3.3 mmol/L Normal [facility] Comment on above: Performed By: #### M VPA4 ####[id number] [place] [address] BICARB, CALCULATED 22.1 mmol/L Normal [facility] Comment on above: Performed By: #### M VPA4 ####[id number] [place] [address] CALCIUM,IONIZED 1.17 mmol/L Normal 1.10 - 1.33 [facility] Comment on above: Performed By: #### M VPA4 ####[id number] [place] [address] Chloride [Moles/Vol] 97 mmol/L Low 98 - 107 [facility] Comment on above: Performed By: #### M VPA4 ####[id number] [place] [address] Glucose [Mass/Vol] 341 mg/dL High 74 - 99 [facility] Comment on above: Performed By: #### M VPA4 ####[id number] [place] [address] Hematocrit (Bld) [Volume fraction] 35.0 % Low 36.0 - 46.0 [facility] Comment on above: Performed By: #### M VPA4 ####[id number] [place] [address] Hemoglobin (Bld) [Mass/Vol] 11.6 g/dL Low 12.0 - 16.0 [facility] Comment on above: Performed By: #### M VPA4 ####[id number] [place] [address] Lactate [Moles/Vol] 1.4 mmol/L Normal 0.4 - 2.0 [facility] Comment on above: Performed By: #### M VPA4 ####[id number] [place] [address] OXY HGB 58.9 % Normal 45.0 - 75.0 [facility] Comment on above: Performed By: #### M VPA4 ####[id number] [place] [address] Oxygen (Bld) [Partial pressure] 39 mm[Hg] Normal [facility] Comment on above: Performed By: #### M VPA4 ####[id number] [place] [address] PATIENT TEMPERATURE 37.0 degrees Normal [facility] Comment on above: Result Comment: NOTE : PATIENT RESULTS ARE NOT CORRECTED FOR TEMPERATURE. Performed By: #### M VPA4 ####[id number] [place] [address] PCO2 40 mmHg Normal [facility] Comment on above: Performed By: #### M VPA4 ####[id number] [place] [address] pH (Bld) 7.35 [pH] Normal [facility] Comment on above: Performed By: #### M VPA4 ####[id number] [place] [address] Potassium [Moles/Vol] 4.4 mmol/L Normal 3.5 - 5.3 [facility] Comment on above: Performed By: #### M VPA4 ####[id number] [place] [address] SO2 60 % Normal [facility] Comment on above: Performed By: #### M VPA4 ####[id number] [place] [address] Sodium [Moles/Vol] 126 mmol/L Low 136 - 145 [facility] Comment on above: Performed By: #### M VPA4 ####[id number] [place] [address] Anion gap [Moles/Vol] 14 mmol/L Normal 10 - 25 [facility] Comment on above: Performed By: #### M VPA4 ####[id number] [place] [address] BASE EXCESS-BLOOD -6.3 mmol/L Normal [facility] Comment on above: Performed By: #### M VPA4 ####[id number] [place] [address] BICARB, CALCULATED 19.7 mmol/L Normal [facility] Comment on above: Performed By: #### M VPA4 ####[id number] [place] [address] CALCIUM,IONIZED 1.14 mmol/L Normal 1.10 - 1.33 [facility] Comment on above: Performed By: #### M VPA4 ####[id number] [place] [address] Chloride [Moles/Vol] 97 mmol/L Low 98 - 107 [facility] Comment on above: Performed By: #### M VPA4 ####[id number] [place] [address] Glucose [Mass/Vol] 348 mg/dL High 74 - 99 [facility] Comment on above: Performed By: #### M VPA4 ####[id number] [place] [address] Hematocrit (Bld) [Volume fraction] 38.0 % Normal 36.0 - 46.0 [facility] Comment on above: Performed By: #### M VPA4 ####[id number] [place] [address] Hemoglobin (Bld) [Mass/Vol] 12.5 g/dL Normal 12.0 - 16.0 [facility] Comment on above: Performed By: #### M VPA4 ####[id number] [place] [address] Lactate [Moles/Vol] 1.4 mmol/L Normal 0.4 - 2.0 [facility] Comment on above: Performed By: #### M VPA4 ####[id number] [place] [address] OXY HGB 44.4 % Low 45.0 - 75.0 [facility] Comment on above: Performed By: #### M VPA4 ####[id number] [place] [address] Oxygen (Bld) [Partial pressure] 35 mm[Hg] Normal [facility] Comment on above: Performed By: #### M VPA4 ####[id number] [place] [address] PATIENT TEMPERATURE 37.0 degrees Normal [facility] Comment on above: Result Comment: NOTE : PATIENT RESULTS ARE NOT CORRECTED FOR TEMPERATURE. Performed By: #### M VPA4 ####[id number] [place] [address] PCO2 40 mmHg Normal [facility] Comment on above: Performed By: #### M VPA4 ####[id number] [place] [address] pH (Bld) 7.30 [pH] Normal [facility] Comment on above: Performed By: #### M VPA4 ####[id number] [place] [address] Potassium [Moles/Vol] 4.6 mmol/L Normal 3.5 - 5.3 [facility] Comment on above: Performed By: #### M VPA4 ####[id number] [place] [address] SO2 45 % Normal [facility] Comment on above: Performed By: #### M VPA4 ####[id number] [place] [address] Sodium [Moles/Vol] 126 mmol/L Low 136 - 145 [facility] Comment on above: Performed By: #### M VPA4 ####[id number] [place] [address] Magnesium, Serumon 2 Magnesium [Mass/Vol] 2.28 mg/dL See Below [facility] Work Phone: Comment on above: Reference Range: 1.6 0 - 2.40 No Panel Informationon 07-18 67 % [facility] Work Phone: 37.0 {degrees} [facility] Work Phone: Comment on above: NOTE: PATIENT RESULT S ARE NOT CORRECTED FOR TEMPERATURE. 60 % [facility] Work Phone: 37.0 {degrees} [facility] Work Phone: Comment on above: NOTE: PATIENT RESULT S ARE NOT CORRECTED FOR TEMPERATURE. 304 mg/dL above high threshold 74 - 99 [facility] I Work Phone: 70 % [facility] Work Phone: 37.0 {degrees} [facility] 6 [facility] Work Phone: Comment on above: NOTE: PATIENT RESULT S ARE NOT CORRECTED FOR TEMPERATURE. 302 mg/dL above high threshold 74 - 99 [facility] Work Phone: 267 mg/dL above high threshold 74 - 99 [facility] Work Phone: 67 % [facility] Work Phone: 37.0 {degrees} [facility] I Work Phone: Comment on above: NOTE: PATIENT RESULT S ARE NOT CORRECTED FOR TEMPERATURE. 60 % [facility] Work Phone: 37.0 {degrees} [facility] I Work Phone: Comment on above: NOTE: PATIENT RESULT S ARE NOT CORRECTED FOR TEMPERATURE. 14.6 % above high threshold See Below [facility] Work Phone: Comment on above: Reference Range: 11. 5 - 14.5 31.5 g/dL below low threshold See Below [facility] Work Phone: Comment on above: Reference Range: 32. 0 - 36.0 88 fL 80 - 100 [facility] Work Phone: 0.2 {/100_WBC} 0.0-0.0 [facility] Work Phone: 14.9 {x10E9/L} above high threshold 4.4 - 11.3 [facility] Work Phone: RENAL FUNCTION PANELon 07-18 Albumin [Mass/Vol] 3.4 g/dL Normal 3.4 - 5.0 [facility] Comment on above: Performed By: #### R ENAL ####[id number] [place] [address] Anion gap [Moles/Vol] 15 mmol/L Normal 10 - 20 [facility] Comment on above: Performed By: #### R ENAL ####[id number] [place] [address] Calcium [Mass/Vol] 8.5 mg/dL Low 8.6 - 10.6 [facility] Comment on above: Performed By: #### R ENAL ####[id number] [place] [address] Chloride [Moles/Vol] 97 mmol/L Low 98 - 107 [facility] Comment on above: Performed By: #### R ENAL ####[id number] [place] [address] Creatinine [Mass/Vol] 2.40 mg/dL High 0.50 - 1.05 [facility] Comment on above: Performed By: #### R ENAL ####[id number] [place] [address] GFR/1.73 sq M.predicted among non-blacks MDRD (S/P/Bld) [Vol rate/Area] 22 mL/min/{1.73_m2} Abnormal >90 [facility] Comment on above: Result Comment: CALC ULATIONS OF ESTIMATED GFR ARE PERFORMED USING THE 2020 CKD-EPI STUDY REFIT EQUATION WITHOUT THE RACE VARIABLE FOR THE IDMS-TRACEABLE CREATININE METHODS.https://jasn.asnjournals.org/content// ASN.1638425071 Performed By: #### R ENAL ####[id number] [place] [address] Glucose [Mass/Vol] 318 mg/dL High 74 - 99 [facility] Comment on above: Performed By: #### R ENAL ####[id number] [place] [address] HCO3 (Bld) [Moles/Vol] 26 mmol/L Normal 21 - 32 [facility] Comment on above: Performed By: #### R ENAL ####[id number] [place] [address] Phosphate [Mass/Vol] 4.2 mg/dL Normal 2.5 - 4.9 [facility] Comment on above: Result Comment: The performance characteristics of phosphorus testing in heparinized plasma have been validated by the individual laboratory site where testing is performed. Testing on heparinized plasma is not approved by the FDA; however, such approval is not necessary. Performed By: #### R ENAL ####[id number] [place] [address] Potassium [Moles/Vol] 3.9 mmol/L Normal 3.5 - 5.3 [facility] Comment on above: Performed By: #### R ENAL ####[id number] [place] [address] Sodium [Moles/Vol] 134 mmol/L Low 136 - 145 [facility] Comment on above: Performed By: #### R ENAL ####[id number] [place] [address] Urea nitrogen [Mass/Vol] 69 mg/dL High 6 - 23 [facility] Comment on above: Performed By: #### R ENAL ####[id number] [place] [address] Albumin [Mass/Vol] 3.5 g/dL Normal 3.4 - 5.0 [facility] Comment on above: Performed By: #### R ENAL ####[id number] [place] [address] Anion gap [Moles/Vol] 18 mmol/L Normal 10 - 20 [facility] Comment on above: Performed By: #### R ENAL ####[id number] [place] [address] Calcium [Mass/Vol] 8.8 mg/dL Normal 8.6 - 10.6 [facility] Comment on above: Performed By: #### R ENAL ####[id number] [place] [address] Chloride [Moles/Vol] 96 mmol/L Low 98 - 107 [facility] Comment on above: Performed By: #### R ENAL ####[id number] [place] [address] Creatinine [Mass/Vol] 2.48 mg/dL High 0.50 - 1.05 [facility] Comment on above: Performed By: #### R ENAL ####[id number] [place] [address] GFR/1.73 sq M.predicted among non-blacks MDRD (S/P/Bld) [Vol rate/Area] 22 mL/min/{1.73_m2} Abnormal >90 [facility] Comment on above: Result Comment: CALC ULATIONS OF ESTIMATED GFR ARE PERFORMED USING THE 2020 CKD-EPI STUDY REFIT EQUATION WITHOUT THE RACE VARIABLE FOR THE IDMS-TRACEABLE CREATININE METHODS.https://jasn.asnjournals.org/content/early/ ASN.1458151956 Performed By: #### R ENAL ####[id number] [place] [address] Glucose [Mass/Vol] 332 mg/dL High 74 - 99 [facility] Comment on above: Performed By: #### R ENAL ####[id number] [place] [address] HCO3 (Bld) [Moles/Vol] 20 mmol/L Low 21 - 32 [facility] Comment on above: Performed By: #### R ENAL ####[id number] [place] [address] Phosphate [Mass/Vol] 5.5 mg/dL High 2.5 - 4.9 [facility] Comment on above: Result Comment: The performance characteristics of phosphorus testing in heparinized plasma have been validated by the individual laboratory site where testing is performed. Testing on heparinized plasma is not approved by the FDA; however, such approval is not necessary. Performed By: #### R ENAL ####[id number] [place] [address] Potassium [Moles/Vol] 5.0 mmol/L Normal 3.5 - 5.3 [facility] Comment on above: Performed By: #### R ENAL ####[id number] [place] [address] Sodium [Moles/Vol] 129 mmol/L Low 136 - 145 [facility] Comment on above: Performed By: #### R ENAL ####[id number] [place] [address] Urea nitrogen [Mass/Vol] 66 mg/dL High 6 - 23 [facility] Comment on above: Performed By: #### R ENAL ####[id number] [place] [address] Radiologyon 07-18-2022 XR Chest Single view Normal [facility] Work Phone: Renal Function Panelon 07-18 Albumin BCP dye [Mass/Vol] 3.4 g/dL 3.4 - 5.0 [facility] Work Phone: Calcium [Mass/Vol] 8.5 mg/dL below low threshold 8.6 - 10.6 [facility] Work Phone: Chloride [Moles/Vol] 97 mmol/L below low threshold 98 - 107 [facility] Work Phone: CO2 [Moles/Vol] 26 mmol/L 21 - 32 [facility] Work Phone: Creatinine [Mass/Vol] 2.40 mg/dL above high threshold See Below [facility] Work Phone: Comment on above: Reference Range: 0.5 0 - 1.05 Glucose [Mass/Vol] 318 mg/dL above high threshold 74 - 99 [facility] Work Phone: Phosphate [Mass/Vol] 4.2 mg/dL 2.5 - 4.9 [facility] Work Phone: Comment on above: The performance juan a acteristics of phosphorus testing in heparinized plasma have been validated by the individual laboratory site where testing is performed. Testing on heparinized plasma is not approved by the FDA; however, such approval is not necessary. Potassium [Moles/Vol] 3.9 mmol/L 3.5 - 5.3 [facility]- Gastroen terology-Too lwell 6 [facility] Work Phone: Sodium [Moles/Vol] 134 mmol/L below low threshold 136 - 145 [facility]astroen terology-Too lwell 6 I Work Phone: Urea nitrogen [Mass/Vol] 69 mg/dL above high threshold 6 - 23 [facility]en [facility]ology-Too lwell 6 I Work Phone: Renal Function Panel 22 {mL/min/1.73m2} Abnormal >90 [facility]en [facility]ology-Too lwell 6 I Work Phone: Comment on above: CALCULATIONS OF LASHAWN MATED GFR ARE PERFORMED USING THE 2020 CKD-EPI STUDY REFIT EQUATION WITHOUT THE RACE VARIABLE FOR THE IDMS-TRACEABLE CREATININE METHODS.https://jasn.asnjournals.org/content/early/ ASN.1357990361 Renal Function Panel 15 mmol/L 10 - 20 MG-G astroen terology-Too lwell 6 I Work Phone: Albumin BCP dye [Mass/Vol] 3.5 g/dL 3.4 - 5.0 [facility]astroen [facility]ology-Too lwell 6 [facility] Work Phone: Calcium [Mass/Vol] 8.8 mg/dL 8.6 - 10.6 MG-Gas troen terology-Too lwell 6 [facility] Work Phone: Chloride [Moles/Vol] 96 mmol/L below low threshold 98 - 107 [facility]astroen [facility]ology-Too lwell 6 [facility] Work Phone: CO2 [Moles/Vol] 20 mmol/L below low threshold 21 - 32 [facility]en [facility]ology-Too [facility] 6 [facility] Work Phone: Creatinine [Mass/Vol] 2.48 mg/dL above high threshold See Below [facility]astroen [facility]ology-Too l[facility] 6 [facility] Work Phone: Comment on above: Reference Range: 0.5 0 - 1.05 Glucose [Mass/Vol] 332 mg/dL above high threshold 74 - 99 [facility]astroen terology-Too lwell 6 I Work Phone: Phosphate [Mass/Vol] 5.5 mg/dL above high threshold 2.5 - 4.9 [facility]astroen terology-Too lwell 6 I Work Phone: Comment on above: The performance juan a acteristics of phosphorus testing in heparinized plasma have been validated by the individual laboratory site where testing is performed. Testing on heparinized plasma is not approved by the FDA; however, such approval is not necessary. Potassium [Moles/Vol] 5.0 mmol/L 3.5 - 5.3 MG- Gastroen terology-Too lwell 6 I Work Phone: Sodium [Moles/Vol] 129 mmol/L below low threshold 136 - 145 [facility]astroen terology-Too lwell 6 I Work Phone: Urea nitrogen [Mass/Vol] 66 mg/dL above high threshold 6 - 23 [facility]-Gastroen terology-Too lwell 6 I Work Phone: Renal Function Panel 22 {mL/min/1.73m2} Abnormal >90 [facility]-Gastroen terology-Too lwell 6 I Work Phone: Comment on above: CALCULATIONS OF LASHAWN MATED GFR ARE PERFORMED USING THE 2020 CKD-EPI STUDY REFIT EQUATION WITHOUT THE RACE VARIABLE FOR THE IDMS-TRACEABLE CREATININE METHODS.https://jasn.asnjournals.org/content// ASN.8170178556 Renal Function Panel 18 mmol/L 10 - 20 MG-G astroen terology-Too lwell 6 [facility] Work Phone: TH CHEST 1 VIEWon 07-18-2022 TH CHEST 1 VIEW Normal [facility] UA MICROSCOPICon 07-18-2022 RBC 8 /HPF Abnormal 0-5 [facility] Comment on above: Performed By: #### U AMIC ####[id number] [place] [address] SQUAMOUS EPITH. CELLS <1 Normal [facility] Comment on above: Performed By: #### U AMIC ####[id number] [place] [address] WBC 1 /HPF Normal 0-5 [facility] Comment on above: Performed By: #### U AMIC ####[id number] [place] [address] URINALYSIS WITH CULTURE IF I NDICATEDon 07-18-2022 Appearance (U) CLEAR Normal CLEAR [facility] Comment on above: Performed By: #### U ARFX ####[id number] [place] [address] Bilirubin Ql (U) Negative Normal NEGATIVE [facility] Comment on above: Performed By: #### U ARFX ####[id number] [place] [address] Color (U) COLORLESS Normal STRAW,YELL OW [facility] Comment on above: Performed By: #### U ARFX ####[id number] [place] [address] Glucose Ql (U) >=500 (3+) Abnormal NEGATIVE [facility] Comment on above: Performed By: #### U ARFX ####[id number] [place] [address] Hemoglobin Ql (U) LARGE (3+) Abnormal NEGATIVE [facility] Comment on above: Performed By: #### U ARFX ####[id number] [place] [address] Ketones Ql (U) Negative Normal NEGATIVE [facility] Comment on above: Performed By: #### U ARFX ####[id number] [place] [address] Leukocyte esterase Test strip Ql (U) Negative Normal NEGATIVE [facility] Comment on above: Performed By: #### U ARFX ####[id number] [place] [address] Nitrite Ql (U) Negative Normal NEGATIVE [facility] Comment on above: Performed By: #### U ARFX ####[id number] [place] [address] pH (U) 6.0 [pH] Normal 5.0 - 8.0 [facility] Comment on above: Performed By: #### U ARFX ####[id number] [place] [address] Protein Ql (U) Negative Normal NEGATIVE [facility] Comment on above: Performed By: #### U ARFX ####[id number] [place] [address] Specific gravity (U) [Rel density] 1.006 Normal 1.005 - 1.035 [facility] Comment on above: Performed By: #### U ARFX ####[id number] [place] [address] Urobilinogen (U) [Mass/Vol] mg/dL Normal 0.0 - 1.9 [facility] Comment on above: Performed By: #### U ARFX ####[id number] [place] [address] Protein (U) [Mass/Vol] Negative NEGATIVE [facility] -[facility]astroen [facility]ology-Too [facility] 6 [facility] Work Phone: RBC (U) [#/Vol] LARGE (3+) Abnormal NEGATIVE MG-Gastro en terology-Too [facility] 6 [facility] Work Phone: Specific gravity (U) [Rel density] 1.006 1 See Below [facility]en [facility]ology-Too lwell 6 I Work Phone: Comment on above: Reference Range: 1.0 05 - 1.035 URINALYSIS WITH CULTURE IF INDICATED Negative NEGATIVE [facility] l[facility] 6 I Work Phone: URINALYSIS WITH CULTURE IF INDICATED <2.0 0.0 - 1.9 [facility]ology-Too lwell 6 I Work Phone: URINALYSIS WITH CULTURE IF INDICATED >=500 (3+) Abnormal NEGATIVE [facility]-Too lwell 6 I Work Phone: URINALYSIS WITH CULTURE IF INDICATED 6.0 1 5.0 - 8.0 [facility]ology-Too lwell 6 I Work Phone: URINALYSIS WITH CULTURE IF INDICATED CLEAR CLEAR [facility] 6 I Work Phone: URINALYSIS WITH CULTURE IF INDICATED COLORLESS See Below [facility]-Too l[facility] 6 I Work Phone: Comment on above: Reference Range: STR AW,YELLOW Urinalysis, Microscopicon Urinalysis, Microscopic <1 M [facility]astroen terology-Too lwell 6 I Work Phone: Urinalysis, Microscopic 8 {/HPF} Abnormal 0-5 M [facility]-Gastroen terology-Too lwell 6 I Work Phone: Urinalysis, Microscopic 1 {/HPF} 0-5 M [facility]astroen terology-Too lwell 6 I Work Phone: VENOUS BLOOD GASon 2 BASE EXCESS-BLOOD -4.3 mmol/L Low -2.0 - 3.0 [facility] Comment on above: Performed By: #### B LGV2 ####[id number] [place] [address] BICARB, CALCULATED 21.6 mmol/L Low 22.0 - 26.0 [facility] Comment on above: Performed By: #### B LGV2 ####[id number] [place] [address] OXY HGB 54.9 % Normal 45.0 - 75.0 [facility] Comment on above: Performed By: #### B LGV2 ####[id number] [place] [address] Oxygen (Bld) [Partial pressure] 39 mm[Hg] Normal 35 - 45 [facility] Comment on above: Performed By: #### B LGV2 ####[id number] [place] [address] PATIENT TEMPERATURE 37.0 degrees C Normal [facility] Comment on above: Result Comment: NOTE : PATIENT RESULTS ARE NOT CORRECTED FOR TEMPERATURE. Performed By: #### B LGV2 ####[id number] [place] [address] PCO2 42 mmHg Normal 41 - 51 [facility] Comment on above: Performed By: #### B LGV2 ####[id number] [place] [address] pH (Bld) 7.32 [pH] Low 7.33 - 7.43 [facility] Comment on above: Performed By: #### B LGV2 ####[id number] [place] [address] SO2 56 % Normal 45 - 75 [facility] Comment on above: Performed By: #### B LGV2 ####[id number] [place] [address] Vital signson 07-18-2022 Oxygen saturation in Venous blood 56 % 45 - 75 [facility]ology-Too lwell 6 [facility] Work Phone: BASIC METABOLIC PANELon ANION GAP Canceled [facility] Comment on above: Order Comment: TEST BASIC METABOLIC PANEL WAS CANCELLED, 07/17/2022 07:30 Performed By: #### B NP2 #### [address] [address] BICARBONATE Canceled [facility] Comment on above: Order Comment: TEST BASIC METABOLIC PANEL WAS CANCELLED, 07/17/2022 07:30 Performed By: #### B NP2 #### [address] [address] CALCIUM Canceled [facility] Comment on above: Order Comment: TEST BASIC METABOLIC PANEL WAS CANCELLED, 07/17/2022 07:30 Performed By: #### B NP2 #### [address] [address] CHLORIDE Canceled [facility] Comment on above: Order Comment: TEST BASIC METABOLIC PANEL WAS CANCELLED, 07/17/2022 07:30 Performed By: #### B NP2 #### [address] [address] CREATININE Canceled [facility] Comment on above: Order Comment: TEST BASIC METABOLIC PANEL WAS CANCELLED, 07/17/2022 07:30 Performed By: #### B NP2 #### [address] [address] eGFR FEMALE Canceled [facility] Comment on above: Order Comment: TEST BASIC METABOLIC PANEL WAS CANCELLED, 07/17/2022 07:30 Result Comment: CALC ULATIONS OF ESTIMATED GFR ARE PERFORMED USING THE 2020 CKD-EPI STUDY REFIT EQUATION WITHOUT THE RACE VARIABLE FOR THE IDMS-TRACEABLE CREATININE METHODS. https://jasn.asnjournals.org/content/earlyASN 734851 Performed By: #### B NP2 #### [address] [address] eGFR MALE Canceled [facility] Comment on above: Order Comment: TEST BASIC METABOLIC PANEL WAS CANCELLED, 07/17/2022 07:30 Result Comment: CALC ULATIONS OF ESTIMATED GFR ARE PERFORMED USING THE 2020 CKD-EPI STUDY REFIT EQUATION WITHOUT THE RACE VARIABLE FOR THE IDMS-TRACEABLE CREATININE METHODS. https://jasn.asnjournals.org/content/earlyASN 820407 Performed By: #### B NP2 #### [place] [id number] GLUCOSE Canceled [facility] Comment on above: Order Comment: TEST BASIC METABOLIC PANEL WAS CANCELLED, 07/17/2022 07:30 Performed By: #### B NP2 #### [address] [address] POTASSIUM Canceled [facility] Comment on above: Order Comment: TEST BASIC METABOLIC PANEL WAS CANCELLED, 07/17/2022 07:30 Performed By: #### B NP2 #### [address] [address] SODIUM Canceled [facility] Comment on above: Order Comment: TEST BASIC METABOLIC PANEL WAS CANCELLED, 07/17/2022 07:30 Performed By: #### B NP2 #### [address] [address] UREA NITROGEN Canceled [facility] Comment on above: Order Comment: TEST BASIC METABOLIC PANEL WAS CANCELLED, 07/17/2022 07:30 Performed By: #### B NP2 #### [address] [address] BNPon 07-17-2022 Natriuretic peptide B (Bld) [Mass/Vol] 3236 pg/mL High 0 - 99 [facility] Comment on above: Result Comment: . <1 00 pg/mL - Heart failure -422 pg/mL - Intermediate probability of acute heart. failure exacerbation. Correlate with clinical. context and patient history. >=300 pg/mL - Heart Failure likely. Correlate with clinical. context and patient history. Biotin interference may cause falsely decreased results. Patients taking a Biotin dose of up to 5 mg/day should refrain from taking Biotin for 24 hours before sample collection. Providers may contact their local laboratory for further information. Performed By: #### B NP2 ####[id number] [place] [address] CALCIUM, IONIZEDon 2 CALCIUM,IONIZED 1.11 mmol/L Normal 1.10 - 1.33 [facility] Comment on above: Result Comment: The performance characteristics of ionized calcium tested in heparinized plasma or serum have been validated by the individual laboratory site where testing is performed. Testing on heparinized plasma or serum is not approved by the FDA; however, such approval is not necessary. Performed By: #### I ONC1 ####[id number] [place] [address] CBCon 07-17-2022 HCT Canceled [facility] Comment on above: Order Comment: TEST CBC WAS CANCELLED, 07/17/2022 07:30 Performed By: #### L ACT #### [place] [address] HGB Canceled [facility] Comment on above: Order Comment: TEST CBC WAS CANCELLED, 07/17/2022 07:30 Performed By: #### L ACT #### [place] [address] MCHC Canceled [facility] Comment on above: Order Comment: TEST CBC WAS CANCELLED, 07/17/2022 07:30 Performed By: #### L ACT #### [place] [address] MCV Canceled [facility] Comment on above: Order Comment: TEST CBC WAS CANCELLED, 07/17/2022 07:30 Performed By: #### L ACT #### [place] [address] PLT Canceled [facility] Comment on above: Order Comment: TEST CBC WAS CANCELLED, 07/17/2022 07:30 Performed By: #### L ACT #### [place] [address] RBC Canceled [facility] Comment on above: Order Comment: TEST CBC WAS CANCELLED, 07/17/2022 07:30 Performed By: #### L ACT #### [place] [address] RDW-CV Canceled [facility] Comment on above: Order Comment: TEST CBC WAS CANCELLED, 07/17/2022 07:30 Performed By: #### L ACT #### [place] [address] WBC Canceled Normal [facility] Comment on above: Order Comment: TEST CBC WAS CANCELLED, 07/17/2022 07:30 Performed By: #### L ACT #### [facility] [address] [place] [address] CBC AND DIFFERENTIALon 07-17 % AUTOMATED IMMATURE GRAN 0.6 % Normal 0.0 - 0.9 [facility] Comment on above: Result Comment: Clotilde ture Granulocyte Count (IG) includes promyelocytes, myelocytes and metamyelocytes but does not include bands. Percent differential counts (%) should be interpreted in the context of the absolute cell counts (cells/L). Performed By: #### C BCDF ####[id number] [place] [address] Basophils (Bld) [#/Vol] 0.01 10*3/uL Normal 0.00 - 0.10 [facility] Comment on above: Performed By: #### C BCDF ####[id number] [place] [address] Basophils/100 WBC (Bld) 0.1 % Normal 0.0 - 2.0 U [facility] Comment on above: Performed By: #### C BCDF ####[id number] [place] [address] Eosinophils (Bld) [#/Vol] 0.00 10*3/uL Normal 0.00 - 0.70 [facility] Comment on above: Performed By: #### C BCDF ####[id number] [place] [address] Eosinophils/100 WBC (Bld) 0.0 % Normal 0.0 - 6.0 [facility] Comment on above: Performed By: #### C BCDF ####[id number] [place] [address] Erythrocyte distribution width (RBC) [Ratio] 14.6 % High 11.5 - 14.5 [facility] Comment on above: Performed By: #### C BCDF ####[id number] [place] [address] Hematocrit (Bld) [Volume fraction] 45.8 % Normal 36.0 - 46.0 [facility] Comment on above: Performed By: #### C BCDF ####[id number] [place] [address] Hemoglobin (Bld) [Mass/Vol] 13.9 g/dL Normal 12.0 - 16.0 [facility] Comment on above: Performed By: #### C BCDF ####[id number] [place] [address] Lymphocytes (Bld) [#/Vol] 0.80 10*3/uL Low 1.20 - 4.80 [facility] Comment on above: Performed By: #### C BCDF ####[id number] [place] [address] Lymphocytes/100 WBC (Bld) 10.1 % Normal 13.0 - 44.0 [facility] Comment on above: Performed By: #### C BCDF ####[id number] [place] [address] MCHC (RBC) [Mass/Vol] 30.3 g/dL Low 32.0 - 36.0 [facility] Comment on above: Performed By: #### C BCDF ####[id number] [place] [address] MCV (RBC) [Entitic vol] 90 fL Normal 80 - 100 [facility] Comment on above: Performed By: #### C BCDF ####[id number] [place] [address] Monocytes (Bld) [#/Vol] 0.12 10*3/uL Normal 0.10 - 1.00 [facility] Comment on above: Performed By: #### C BCDF ####[id number] [place] [address] Monocytes/100 WBC (Bld) 1.5 % Normal 2.0 - 10.0 [facility] Comment on above: Performed By: #### C BCDF ####[id number] [place] [address] Neutrophils (Bld) [#/Vol] 6.95 10*3/uL Normal 1.20 - 7.70 [facility] Comment on above: Performed By: #### C BCDF ####[id number] [place] [address] Neutrophils/100 WBC (Bld) 87.7 % Normal 40.0 - 80.0 [facility] Comment on above: Performed By: #### C BCDF ####[id number] [place] [address] NUCLEATED RBC 0.0 /100 WBC Normal 0.0-0.0 [facility] Comment on above: Performed By: #### C BCDF ####[id number] [place] [address] Platelets (Bld) [#/Vol] 275 10*3/uL Normal 150 - 450 [facility] Comment on above: Performed By: #### C BCDF ####[id number] [place] [address] RBC 5.11 x10E12/L Normal 4.00 - 5.20 [facility] Comment on above: Performed By: #### C BCDF ####[id number] [place] [address] WBC (Bld) [#/Vol] 7.9 10*3/uL Normal 4.4 - 11.3 [facility] Comment on above: Performed By: #### C BCDF ####[id number] [place] [address] COAGULATION SCREENon 022 aPTT Coag (Bld) [Time] 41 s High 26 - 39 [facility] Comment on above: Result Comment: THE APTT IS NO LONGER USED FOR MONITORING UNFRACTIONATED HEPARIN THERAPY. FOR MONITORING HEPARIN THERAPY, USE THE HEPARIN ASSAY. Performed By: #### C OAGS ####[id number] [place] [address] PT Coag (PPP) [Time] 39.3 s High 9.8 - 13.4 [facility] Comment on above: Performed By: #### C OAGS ####[id number] [place] [address] PT, INR 3.4 High 0.9 - 1.1 [facility] Comment on above: Performed By: #### C OAGS ####[id number] [place] [address] COMPREHENSIVE PANELon 2021 Albumin [Mass/Vol] 3.4 g/dL Normal 3.4 - 5.0 [facility] Comment on above: Performed By: #### C MP ####[id number] [place] [address] ALP [Catalytic activity/Vol] 96 U/L Normal 33 - 136 [facility] Comment on above: Performed By: #### C MP ####[id number] [place] [address] ALT [Catalytic activity/Vol] 95 U/L High 7 - 45 [facility] Comment on above: Result Comment: Radha ents treated with Sulfasalazine may generate falsely decreased results for ALT. Performed By: #### C MP ####[id number] [place] [address] Anion gap [Moles/Vol] 18 mmol/L Normal 10 - 20 [facility] Comment on above: Performed By: #### C MP ####[id number] [place] [address] AST [Catalytic activity/Vol] 43 U/L High 9 - 39 [facility] Comment on above: Performed By: #### C MP ####[id number] [place] [address] Bilirubin [Mass/Vol] 1.3 mg/dL High 0.0 - 1.2 [facility] Comment on above: Performed By: #### C MP ####[id number] [place] [address] Calcium [Mass/Vol] 8.8 mg/dL Normal 8.6 - 10.6 [facility] Comment on above: Performed By: #### C MP ####[id number] [place] [address] Chloride [Moles/Vol] 99 mmol/L Normal 98 - 107 [facility] Comment on above: Performed By: #### C MP ####[id number] [place] [address] Creatinine [Mass/Vol] 2.24 mg/dL High 0.50 - 1.05 [facility] Comment on above: Performed By: #### C MP ####[id number] [place] [address] GFR/1.73 sq M.predicted among non-blacks MDRD (S/P/Bld) [Vol rate/Area] 24 mL/min/{1.73_m2} Abnormal >90 [facility] Comment on above: Result Comment: CALC ULATIONS OF ESTIMATED GFR ARE PERFORMED USING THE 2020 CKD-EPI STUDY REFIT EQUATION WITHOUT THE RACE VARIABLE FOR THE IDMS-TRACEABLE CREATININE METHODS.https://jasn.asnjournals.org/content/early/ ASN.0674846183 Performed By: #### C MP ####[id number] [place] [address] Glucose [Mass/Vol] 172 mg/dL High 74 - 99 [facility] Comment on above: Performed By: #### C MP ####[id number] [place] [address] HCO3 (Bld) [Moles/Vol] 20 mmol/L Low 21 - 32 [facility] Comment on above: Performed By: #### C MP ####[id number] [place] [address] Potassium [Moles/Vol] 5.0 mmol/L Normal 3.5 - 5.3 [facility] Comment on above: Performed By: #### C MP ####[id number] [place] [address] Protein [Mass/Vol] 6.2 g/dL Low 6.4 - 8.2 [facility] Comment on above: Performed By: #### C MP ####[id number] [place] [address] Sodium [Moles/Vol] 132 mmol/L Low 136 - 145 [facility] Comment on above: Performed By: #### C MP ####[id number] [place] [address] Urea nitrogen [Mass/Vol] 58 mg/dL High 6 - 23 [facility] Comment on above: Performed By: #### C MP ####[id number] [place] [address] Clinical Event Note-Heart fa ilure staff noteon 07-17-2022 Clinical Event Note-Heart failure staff note Normal [facility] Daily Progress Note - Critic al Care-HF ICUon 07-17-2022 Daily Progress Note - Critical Care-HF ICU Normal [facility] EMR ADDONon 07-17-2022 ADDON CONFIRMATION REQUEST REC'D Normal [facility] Comment on above: Performed By: #### E MRAD ####NO LOCATION NEEDED GLUCOSE-POCTon 07-17-2022 Glucose [Mass/Vol] 238 mg/dL High 74 - 99 [facility] Comment on above: Performed By: #### G MANJULA ####[id number] [place] [address] Glucose [Mass/Vol] 209 mg/dL High 74 - 99 [facility] Comment on above: Performed By: #### G MANJULA ####[id number] [place] [address] Glucose [Mass/Vol] 197 mg/dL High 74 - 99 [facility] Comment on above: Performed By: #### G MANJULA ####[id number] [place] [address] Glucose [Mass/Vol] 163 mg/dL High 74 - 99 [facility] Comment on above: Performed By: #### G MANJULA ####[id number] [place] [address] Glucose [Mass/Vol] 125 mg/dL High 74 - 99 [facility] Comment on above: Performed By: #### G MANJULA ####[id number] [place] [address] HEMOGLOBIN A1Con 07-17-2022 Glucose [Mass/Vol] 229 mg/dL Normal [facility] Comment on above: Performed By: #### H BA1E ####[id number] [place] [address] HbA1c (Bld) [Mass fraction] 9.6 % Abnormal [facility] Comment on above: Result Comment: Diag nosis of Diabetes-Adults Non-Diabetic: < or = 5.6% Increased risk for developing diabetes: 5.7-6.4% Diagnostic of diabetes: > or = 6.5%. Monitoring of Diabetes Age (y) Therapeutic Goal (%) Adults: >18 <7.0 Pediatrics: 13-18 <7.5 7-12 <8.0 0- 6 7.5-8.5 [employer]. Diabetes Care 33(S1), Sep 2009. Performed By: #### H BA1E ####[id number] [place] [address] LACTATEon 07-17-2022 Lactate [Moles/Vol] 1.4 mmol/L Normal 0.4 - 2.0 [facility] Comment on above: Result Comment: Susan puncture immediately after or during the administration of Metamizole may lead to falsely low results. Testing should be performed immediately prior to Metamizole dosing. Performed By: #### L ACT ####[id number] [place] [address] Laboratory - Chemistry and C hemistry - challengeon 07-17-2022 Anion gap 4 (BldMV) [Moles/Vol] 14 mmol/L 10 - 25 MG-Gastroen terology-Too lwell 6 [facility] Work Phone: Base excess Calc (BldMV) [Moles/Vol] -6.3 mmol/L MG-Gastroen terology-Too lwell 6 [facility] Work Phone: Calcium.ionized (BldMV) [Moles/Vol] 1.14 mmol/L See Below [facility] 6 [facility] Work Phone: Comment on above: Reference Range: 1.1 0 - 1.33 Chloride [Moles/Vol] 97 mmol/L below low threshold 98 - 107 [facility] 6 [facility] Work Phone: CO2 (BldMV) [Partial pressure] 40 {mmHg} [facility] 6 I Work Phone: Glucose [Mass/Vol] 348 mg/dL above high threshold 74 - 99 [facility] 6 [facility] Work Phone: [phone] HCO3 (BldMV) [Moles/Vol] 19.7 mmol/L [facility] 6 I Work Phone: [phone] Lactate (BldMV) [Moles/Vol] 1.4 mmol/L 0.4 - 2.0 [facility] 6 I Work Phone: Oxygen (BldMV) [Partial pressure] 35 {mmHg} [facility] 6 I Work Phone: [phone] Oxyhemoglobin (BldMV) [Mass fraction] 44.4 % below low threshold See Below [facility] 6 I Work Phone: Comment on above: Reference Range: 45. 0 - 75.0 pH (BldMV) 7.30 1 [facility] 6 I Work Phone: Potassium (BldMV) [Moles/Vol] 4.6 mmol/L 3.5 - 5.3 [facility] 6 I Work Phone: Sodium (BldMV) [Moles/Vol] 126 mmol/L below low threshold 136 - 145 [facility] 6 I Work Phone: Anion gap 4 (BldMV) [Moles/Vol] 14 mmol/L 10 - 25 [facility] 6 I Work Phone: Base excess Calc (BldMV) [Moles/Vol] -14.9 mmol/L [facility] 6 I Work Phone: Calcium.ionized (BldMV) [Moles/Vol] 0.70 mmol/L Critically low See Below [facility] 6 [facility] Work Phone: Comment on above: Reference Range: 1.1 0 - 1.33CRIT POTMX,IONMV REPORTED TO, 07/17/2022 20:39 Chloride [Moles/Vol] 116 mmol/L above high threshold 98 - 107 [facility] 6 [facility] Work Phone: CO2 (BldMV) [Partial pressure] 22 {mmHg} [facility] 6 I Work Phone: Glucose [Mass/Vol] 165 mg/dL above high threshold 74 - 99 [facility] 6 [facility] Work Phone: HCO3 (BldMV) [Moles/Vol] 10.3 mmol/L [facility] 6 I Work Phone: Lactate (BldMV) [Moles/Vol] 0.7 mmol/L 0.4 - 2.0 [facility] 6 I Work Phone: Oxygen (BldMV) [Partial pressure] 39 {mmHg} [facility] 6 I Work Phone: Oxyhemoglobin (BldMV) [Mass fraction] 55.4 % See Below [facility] 6 I Work Phone: Comment on above: Reference Range: 45. 0 - 75.0 pH (BldMV) 7.28 1 [facility] 6 I Work Phone: Potassium (BldMV) [Moles/Vol] 2.0 mmol/L Critically low 3.5 - 5.3 [facility] 6 [facility] Work Phone: Comment on above: CRIT POTMX,IONMV REP ORTED TO, 07/17/2022 20:39 Sodium (BldMV) [Moles/Vol] 138 mmol/L 136 - 145 [facility] 6 I Work Phone: Laboratory - Coagulationon 1 09-16-2021 INR Coag (PPP) [Relative time] 2.8 {INR} above high threshold 0.9 - 1.1 [facility] 6 I Work Phone: PT Coag (PPP) [Time] 32.3 s above high threshold 9.8 - 13.4 [facility] 6 I Work Phone: Laboratory - Hematology and Cell countson 07-17-2022 Hematocrit Est (Bld) [Volume fraction] 38.0 % See Below [facility] 6 I Work Phone: Comment on above: Reference Range: 36. 0 - 46.0 Hemoglobin (Bld) [Mass/Vol] 12.5 g/dL See Below [facility] 6 I Work Phone: Comment on above: Reference Range: 12. 0 - 16.0 Hematocrit Est (Bld) [Volume fraction] 24.0 % below low threshold See Below [facility] 6 I Work Phone: Comment on above: Reference Range: 36. 0 - 46.0 Hemoglobin (Bld) [Mass/Vol] 8.1 g/dL below low threshold See Below [facility] 6 I Work Phone: Comment on above: Reference Range: 12. 0 - 16.0 MAGNESIUMon 07-17-2022 Magnesium [Mass/Vol] 2.31 mg/dL Normal 1.60 - 2.40 [facility] Comment on above: Performed By: #### M G ####[id number] [place] [address] Magnesium [Mass/Vol] 1.91 mg/dL Normal 1.60 - 2.40 [facility] Comment on above: Performed By: #### M G ####[id number] [place] [address] MV FULL PANELon 07-17-2022 Anion gap [Moles/Vol] 14 mmol/L Normal 10 - 25 [facility] Comment on above: Order Comment: SOREN WEISSX,IONMV REPORTED TO, 07/17/2022 20:39 Performed By: #### M VPA4 ####[id number] [place] [address] BASE EXCESS-BLOOD -14.9 mmol/L Normal [facility] Comment on above: Order Comment: CRIT POTMX,IONMV REPORTED TO, 07/17/2022 20:39 Performed By: #### M VPA4 ####[id number] [place] [address] BICARB, CALCULATED 10.3 mmol/L Normal [facility] Comment on above: Order Comment: SOREN POTMX,IONMV REPORTED TO, 07/17/2022 20:39 Performed By: #### M VPA4 ####[id number] [place] [address] CALCIUM,IONIZED 0.70 mmol/L Critically low 1.10 - 1.33 [facility] Comment on above: Order Comment: SOREN POTMX,IONMV REPORTED TO, 07/17/2022 20:39 Result Comment: ABHIT POTMX,IONMV REPORTED TO, 07/17/2022 20:39 Performed By: #### M VPA4 ####[id number] [place] [address] Chloride [Moles/Vol] 116 mmol/L High 98 - 107 [facility] Comment on above: Order Comment: CRIT POTMX,IONMV REPORTED TO, 07/17/2022 20:39 Performed By: #### M VPA4 ####[id number] [place] [address] Glucose [Mass/Vol] 165 mg/dL High 74 - 99 [facility] Comment on above: Order Comment: CRIT POTMX,IONMV REPORTED TO, 07/17/2022 20:39 Performed By: #### M VPA4 ####[id number] [place] [address] Hematocrit (Bld) [Volume fraction] 24.0 % Low 36.0 - 46.0 [facility] Comment on above: Order Comment: SOREN WEISSX,IONMV REPORTED TO, 07/17/2022 20:39 Performed By: #### M VPA4 ####[id number] [id number] Hemoglobin (Bld) [Mass/Vol] 8.1 g/dL Low 12.0 - 16.0 [facility] Comment on above: Order Comment: CRIFacundo WEISSX,IONMV REPORTED TO, 07/17/2022 20:39 Performed By: #### M VPA4 ####[id number] [id number] Lactate [Moles/Vol] 0.7 mmol/L Normal 0.4 - 2.0 [facility] Comment on above: Order Comment: CRIFacundo WEISSX,IONMV REPORTED TO, 07/17/2022 20:39 Performed By: #### M VPA4 ####[id number] [id number] OXY HGB 55.4 % Normal 45.0 - 75.0 [facility] Comment on above: Order Comment: SOREN WEISSX,IONMV REPORTED TO, 07/17/2022 20:39 Performed By: #### M VPA4 ####[id number] [place] [address] Oxygen (Bld) [Partial pressure] 39 mm[Hg] Normal [facility] Comment on above: Order Comment: CRIT POTMX,IONMV REPORTED TO, 07/17/2022 20:39 Performed By: #### M VPA4 ####[id number] [id number] PATIENT TEMPERATURE 37.0 degrees Normal [facility] Comment on above: Order Comment: SOREN SALGADOMX,IONMV REPORTED TO, 07/17/2022 20:39 Result Comment: NOTE : PATIENT RESULTS ARE NOT CORRECTED FOR TEMPERATURE. Performed By: #### M VPA4 ####[id number] [place] [address] PCO2 22 mmHg Normal [facility] Comment on above: Order Comment: SOREN SIMS,IONMV REPORTED TO, 07/17/2022 20:39 Performed By: #### M VPA4 ####[id number] [place] [address] pH (Bld) 7.28 [pH] Normal [facility] Comment on above: Order Comment: SOREN WEISSX,IONMV REPORTED TO, 07/17/2022 20:39 Performed By: #### M VPA4 ####[id number] [place] [address] Potassium [Moles/Vol] 2.0 mmol/L Critically low 3.5 - 5.3 [facility] Comment on above: Order Comment: SOREN WEISSX,IONMV REPORTED TO, 07/17/2022 20:39 Result Comment: SOREN WEISSX,IONMV REPORTED TO, 07/17/2022 20:39 Performed By: #### M VPA4 ####[id number] [place] [address] SO2 57 % Normal [facility] Comment on above: Order Comment: SOREN WEISSX,IONMV REPORTED TO, 07/17/2022 20:39 Performed By: #### M VPA4 ####[id number] [place] [address] Sodium [Moles/Vol] 138 mmol/L Normal 136 - 145 [facility] Comment on above: Order Comment: SOREN WEISSX,IONMV REPORTED TO, 07/17/2022 20:39 Performed By: #### M VPA4 ####[id number] [place] [address] Magnesium, Serumon 2 Magnesium [Mass/Vol] 2.31 mg/dL See Below [facility] l[facility] 6 [facility] Work Phone: Comment on above: Reference Range: 1.6 0 - 2.40 No Panel Informationon 07-17 45 % [facility] 6 [facility] Work Phone: 37.0 {degrees} [facility]roe n [facility]ology-[facility] lwell 6 [facility] Work Phone: Comment on above: NOTE: PATIENT RESULT S ARE NOT CORRECTED FOR TEMPERATURE. 57 % [facility] 6 [facility] Work Phone: 37.0 {degrees} [facility]roe n [facility]ology-[facility] l[facility] 6 [facility] Work Phone: Comment on above: NOTE: PATIENT RESULT S ARE NOT CORRECTED FOR TEMPERATURE. 238 mg/dL above high threshold 74 - 99 [facility] 6 I Work Phone: 209 mg/dL above high threshold 74 - 99 [facility] 6 [facility] Work Phone: 197 mg/dL above high threshold 74 - 99 [facility] 6 I Work Phone: 163 mg/dL above high threshold 74 - 99 [facility] 6 I Work Phone: Order Reconciliationon 07-17 Order Reconciliation Normal [facility] PHOSPHORUSon 07-17-2022 Phosphate [Mass/Vol] 4.8 mg/dL Normal 2.5 - 4.9 [facility] Comment on above: Result Comment: The performance characteristics of phosphorus testing in heparinized plasma have been validated by the individual laboratory site where testing is performed. Testing on heparinized plasma is not approved by the FDA; however, such approval is not necessary. Performed By: #### P HOS ####[id number] [place] [address] PT/INRon 07-17-2022 PT Coag (PPP) [Time] 32.3 s High 9.8 - 13.4 [facility] Comment on above: Performed By: #### P TINR ####[id number] [place] [address] PT, INR 2.8 High 0.9 - 1.1 [facility] Comment on above: Performed By: #### P TINR ####[id number] [place] [address] Patient Profile - Adult v2on 07-17-2022 Patient Profile - Adult v2 Normal [facility] RENAL FUNCTION PANELon 07-17 Albumin [Mass/Vol] 3.6 g/dL Normal 3.4 - 5.0 [facility] Comment on above: Performed By: #### R ENAL ####[id number] [place] [address] Anion gap [Moles/Vol] 18 mmol/L Normal 10 - 20 [facility] Comment on above: Performed By: #### R ENAL ####[id number] [place] [address] Calcium [Mass/Vol] 9.1 mg/dL Normal 8.6 - 10.6 [facility] Comment on above: Performed By: #### R ENAL ####[id number] [place] [address] Chloride [Moles/Vol] 95 mmol/L Low 98 - 107 [facility] Comment on above: Performed By: #### R ENAL ####[id number] [place] [address] Creatinine [Mass/Vol] 2.51 mg/dL High 0.50 - 1.05 [facility] Comment on above: Performed By: #### R ENAL ####[id number] [place] [address] GFR/1.73 sq M.predicted among non-blacks MDRD (S/P/Bld) [Vol rate/Area] 21 mL/min/{1.73_m2} Abnormal >90 [facility] Comment on above: Result Comment: CALC ULATIONS OF ESTIMATED GFR ARE PERFORMED USING THE 2020 CKD-EPI STUDY REFIT EQUATION WITHOUT THE RACE VARIABLE FOR THE IDMS-TRACEABLE CREATININE METHODS.https://jasn.asnjournals.org/content// ASN.3247242182 Performed By: #### R ENAL ####[id number] [place] [address] Glucose [Mass/Vol] 293 mg/dL High 74 - 99 [facility] Comment on above: Performed By: #### R ENAL ####[id number] [place] [address] HCO3 (Bld) [Moles/Vol] 21 mmol/L Normal 21 - 32 [facility] Comment on above: Performed By: #### R ENAL ####[id number] [place] [address] Phosphate [Mass/Vol] 5.9 mg/dL High 2.5 - 4.9 [facility] Comment on above: Result Comment: The performance characteristics of phosphorus testing in heparinized plasma have been validated by the individual laboratory site where testing is performed. Testing on heparinized plasma is not approved by the FDA; however, such approval is not necessary. Performed By: #### R ENAL ####[id number] [place] [address] Potassium [Moles/Vol] 5.1 mmol/L Normal 3.5 - 5.3 [facility] Comment on above: Performed By: #### R ENAL ####[id number] [place] [address] Sodium [Moles/Vol] 129 mmol/L Low 136 - 145 [facility] Comment on above: Performed By: #### R ENAL ####[id number] [place] [address] Urea nitrogen [Mass/Vol] 64 mg/dL High 6 - 23 [facility] Comment on above: Performed By: #### R ENAL ####[id number] [place] [address] Radiologyon 07-17-2022 XR Chest Single view Normal [facility] I Work Phone: XR Chest Single view Normal [facility] 6 I Work Phone: Renal Function Panelon 07-17 Albumin BCP dye [Mass/Vol] 3.6 g/dL 3.4 - 5.0 [facility] 6 I Work Phone: Calcium [Mass/Vol] 9.1 mg/dL 8.6 - 10.6 [facility]-Gas troen terology-Too lwell 6 I Work Phone: Chloride [Moles/Vol] 95 mmol/L below low threshold 98 - 107 [facility] 6 I Work Phone: CO2 [Moles/Vol] 21 mmol/L 21 - 32 [facility] en [facility] l[facility] 6 I Work Phone: Creatinine [Mass/Vol] 2.51 mg/dL above high threshold See Below [facility] 6 I Work Phone: Comment on above: Reference Range: 0.5 0 - 1.05 Glucose [Mass/Vol] 293 mg/dL above high threshold 74 - 99 [facility] 6 I Work Phone: Phosphate [Mass/Vol] 5.9 mg/dL above high threshold 2.5 - 4.9 [facility] 6 I Work Phone: Comment on above: The performance juan a acteristics of phosphorus testing in heparinized plasma have been validated by the individual laboratory site where testing is performed. Testing on heparinized plasma is not approved by the FDA; however, such approval is not necessary. Potassium [Moles/Vol] 5.1 mmol/L 3.5 - 5.3 [facility] l[facility] 6 I Work Phone: Sodium [Moles/Vol] 129 mmol/L below low threshold 136 - 145 [facility] 6 [facility] Work Phone: Urea nitrogen [Mass/Vol] 64 mg/dL above high threshold 6 - 23 [facility] 6 [facility] Work Phone: Renal Function Panel 21 {mL/min/1.73m2} Abnormal >90 [facility] 6 I Work Phone: Comment on above: CALCULATIONS OF LASHAWN MATED GFR ARE PERFORMED USING THE 2020 CKD-EPI STUDY REFIT EQUATION WITHOUT THE RACE VARIABLE FOR THE IDMS-TRACEABLE CREATININE METHODS.https://jasn.asnjournals.org/content// ASN.4766365189 Renal Function Panel 18 mmol/L 10 - 20 [facility] l[facility] 6 I Work Phone: TH CHEST 1 VIEWon 07-17-2022 TH CHEST 1 VIEW Normal [facility] TH CHEST 1 VIEW Normal [facility] TROPONIN I, HIGH SENSITIVITY on 07-17-2022 TROPONIN I, HIGH SENSITIVITY 22 ng/L Normal 0 - 34 [facility] Comment on above: Result Comment: .Les s than 99th percentile of normal range cutoff-Female and children under 18 years old <35 ng/L; Male <54 ng/L: NegativeRepeat testing should be performed if clinically indicated..Female and children under 18 years old 35-120 ng/L; Male 54-120 ng/L:Consistent with possible cardiac damage and possible increased clinicalrisk. Serial measurements may help to assess extent of myocardial damage..>120 ng/L: Consistent with cardiac damage, increased clinical risk andmyocardial infarction. Serial measurements may help assess extent ofmyocardial damage..NOTE: Children less than 1 year old may have higher baseline troponinlevels and results should be interpreted in conjunction with the overallclinical context..NOTE: Troponin I testing is performed using a differenttesting methodology at [facility] than at [facility]. Direct result comparisons should onlybe made within the same method. Performed By: #### T [facility] ####[id number] [place] [address] AMB - Narrative Note Nursing -Patient Declineon 07-16-2022 AMB - Narrative Note Nursing-Patient Decline Topic and Description: Topic: Patient Decline Description: At 0800 this RN entered the patient room to perform patient's blood glucose test. Attempted to obtain blood glucose, 6xs before adequate blood for testing. Patient fingers cold to the touch, complaining of SOB, denied chest pain, positive for chest pressure, tele indicating AFIB, pt stated she was feeling the same way yesterday. Obtained vitals WNL, except unable to obtain O2, patient had thick gel manicured finger and toe nails, tried bilateral ear lobes, nose. This also happened yesterday, O2 was obtained via forehead. Patient stated she was cold, extremities cold to touch, warm blankets given to patient. This RN then attempted to obtain O2 stat, moving O2 sensor to fingers toes, ear lobe, ear cartilage, tip of nose. Unable to obtain still. Patient had increased sob, and increase chest pressure and pain. [address] Mendez to inform of patient condition, Dr Mendez stated that the patient suffered form anxiety, Dr informed patient had an order for Xanax ( given at 0300) q8hrs, also patient was given Ativan at in the 0600 hour in prep for Lung scan. Dr Mendez stated that the patient had the same symptoms yesterday, and her test showed she was stable. This RN did not feel comfortable, informed Sofia STEELE, Sofia STEELE stated that she would go ask Dr Mendez to come see the patient. Upon Dr Mendez's arrival to the room, Dr Mendez asked for updated vitals, which was obtained, except O2, Dr Mendez stated that her decreased consciousness was due to the Ativan and Xanax, to monitor vitals Q15 and inform him when she increased consciousness. This RN informed Dr Mendez that the patient's fingers, toes, and nose had turned a purple. Dr Mendez returned to his office. This RN still felling uncomfortable called the Clinical Cytogenetics Director (YOLANDA Reardon) at 09, informed her of the situation, at 921 she came up to the patient's room and started to assess the patient. Sofia GUERRERO arrived at the patient room, At [address] Mendez stating the patient needed to be transferred to the ICU. Approx [phone] Dr Mendez arrived in the patients room to re-evaluate the patient, the decision then was made to move the patient to ICU. Send Note Using Auto Fax: Note Recipients: N/A Electronic Signatures: Mookie Shepherd (YOLANDA) (Signed 16-Jul-2022 15:46) Authored: Topic and Description, To Send Document Via Auto Fax Last Updated: 16-Jul-2022 15:46 by Mookie Shepherd (RN) Normal [facility] ARTERIAL BLOOD GASon 022 APPARATUS 2L NC Normal [facility] Comment on above: Performed By: #### L ACT #### [place] [address] BASE EXCESS-BLOOD -4.2 mmol/L Low -2.0 - 3.0 [facility] Comment on above: Performed By: #### L ACT #### [place] [address] BICARB, CALCULATED 20.1 mmol/L Low 22.0 - 26.0 [facility] Comment on above: Performed By: #### L ACT #### [place] [address] OXY HGB 96.8 % Normal 94.0 - 98.0 [facility] Comment on above: Performed By: #### L ACT #### [place] [address] Oxygen (Bld) [Partial pressure] 102 mm[Hg] High 85 - 95 [facility] Comment on above: Performed By: #### L ACT #### [place] [address] PATIENT TEMPERATURE 37.0 degrees C Normal [facility] Comment on above: Result Comment: NOTE : PATIENT RESULTS ARE NOT CORRECTED FOR TEMPERATURE. Performed By: #### L ACT #### [place] [address] PCO2 34 mmHg Low 38 - 42 [facility] Comment on above: Performed By: #### L ACT #### [place] [address] pH (Bld) 7.38 [pH] Normal 7.38 - 7.42 [facility] Comment on above: Performed By: #### L ACT #### [place] [address] SO2 99 % Normal 94 - 100 [facility] Comment on above: Performed By: #### L ACT #### [address] [place] [address] Admission Risk Screen - Adul ton 07-16-2022 Admission Risk Screen - Adult Normal [facility] BASIC METABOLIC PANELon 11-0 Anion gap [Moles/Vol] 17 mmol/L Normal 10 - 20 [facility] Comment on above: Performed By: #### T RPHS #### [address] [address] Calcium [Mass/Vol] 8.7 mg/dL Normal 8.6 - 10.3 [facility] Comment on above: Performed By: #### T RPHS #### [address] [address] Chloride [Moles/Vol] 100 mmol/L Normal 98 - 107 [facility] Comment on above: Performed By: #### T RPHS #### [address] [address] Creatinine [Mass/Vol] 1.96 mg/dL High 0.50 - 1.05 [facility] Comment on above: Performed By: #### T RPHS #### [address] [address] GFR/1.73 sq M.predicted among non-blacks MDRD (S/P/Bld) [Vol rate/Area] 29 mL/min/{1.73_m2} Abnormal >90 [facility] Comment on above: Result Comment: CALC ULATIONS OF ESTIMATED GFR ARE PERFORMED USING THE 2020 CKD-EPI STUDY REFIT EQUATION WITHOUT THE RACE VARIABLE FOR THE IDMS-TRACEABLE CREATININE METHODS. https://jasn.asnjournals.org/content/early//ASN.2020 709008 Performed By: #### T RPHS #### [address] [address] Glucose [Mass/Vol] 121 mg/dL High 74 - 99 [facility] Comment on above: Performed By: #### T RPHS #### [address] [address] HCO3 (Bld) [Moles/Vol] 18 mmol/L Low 21 - 32 [facility] Comment on above: Performed By: #### T RPHS #### [address] [address] Potassium [Moles/Vol] 4.5 mmol/L Normal 3.5 - 5.3 [facility] Comment on above: Result Comment: MILD HEMOLYSIS DETECTED. The result may be falsely elevated due to hemolysis or other interferents. Clinical correlation is recommended. Repeat testing may be considered. Performed By: #### T RPHS #### [address] [address] Sodium [Moles/Vol] 130 mmol/L Low 136 - 145 [facility] Comment on above: Performed By: #### T RPHS #### [address] [address] Urea nitrogen [Mass/Vol] 54 mg/dL High 6 - 23 [facility] Comment on above: Performed By: #### T RPHS #### [address] [address] C Reactive Protein, Serumon 07-16-2022 CRP [Mass/Vol] 1.59 mg/dL Abnormal [facility]astroe n [facility]ology-Too lwell 6 [facility] Work Phone: Comment on above: REF VALUE< 1.00 C-REACTIVE PROTEINon 022 C-REACTIVE PROTEIN 1.59 mg/dL Abnormal [facility] Comment on above: Result Comment: REF VALUE < 1.00 Performed By: #### C RP ####[address] [address] CBCon 07-16-2022 Erythrocyte distribution width (RBC) [Ratio] 14.4 % Normal 11.5 - 14.5 [facility] Comment on above: Performed By: #### T RPHS #### [address] [address] Hematocrit (Bld) [Volume fraction] 47.6 % High 36.0 - 46.0 [facility] Comment on above: Performed By: #### T RPHS #### [address] [address] Hemoglobin (Bld) [Mass/Vol] 13.9 g/dL Normal 12.0 - 16.0 [facility] Comment on above: Performed By: #### T RPHS #### [address] [address] MCHC (RBC) [Mass/Vol] 29.2 g/dL Low 32.0 - 36.0 [facility] Comment on above: Performed By: #### T RPHS #### [address] [address] MCV (RBC) [Entitic vol] 92 fL Normal 80 - 100 [facility] Comment on above: Performed By: #### T RPHS #### [address] [address] Platelets (Bld) [#/Vol] 288 10*3/uL Normal 150 - 450 [facility] Comment on above: Performed By: #### T RPHS #### [address] [address] RBC 5.16 x10E12/L Normal 4.00 - 5.20 [facility] Comment on above: Performed By: #### T RPHS #### [address] [address] WBC (Bld) [#/Vol] 10.3 10*3/uL Normal 4.4 - 11.3 [facility] Comment on above: Performed By: #### T RPHS #### [address] [address] Calcium, Ionized Levelon Calcium, Ionized Level 1.11 mmol/L See Below M [facility]-Gastroen terology-Too lopez 6 [facility] Work Phone: Comment on above: Reference Range: 1.1 0 - 1.33 The performance characteristics of ionized calcium tested in heparinized plasma or serum have been validated by the individual laboratory site where testing is performed. Testing on heparinized plasma or serum is not approved by the FDA; however, such approval is not necessary. Clinical Event Note-patient status changeon 07-16-2022 Clinical Event Note-patient status change Clinical Event: Clinical Event Note: Topicpatient status change Details This morning I was called to bedside to assess the patient because i was nearby but was not on my current patient load. Patient is currently in covid precautions. Patient is lethargic and minimally responsive. Her lips and hands are cyanotic. I attempted to find pedal pulses and could not, I also attempted doppler pulses and could not locate. I called dr mendez and ask him to come to bedside. I asked RT to perform ABG, chest xray, increased oxygen. patient had poor access. 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 but given patient decompensation, I ordered a midline after discussion with dr mendez. patient was transferred to ICU for more closely monitoring. I called the patients and updated him on patient condition and transfer to ICU. Electronic Signatures: Sofia Huang (CAR DELIVERER-SITE ADMINISTRATOR) (Signed 16-Jul-2022 17:19) Authored: Clinical Event Note Last Updated: 16-Jul-2022 17:19 by Sofia Huang (CAR DELIVERER-[facility]) [facility] Complete Blood Count + Diffe rentialon 07-16-2022 Hematocrit (Bld) [Volume fraction] 45.8 % See Below [facility]-Gastroen terology-Too ell 6 [facility] Work Phone: Comment on above: Reference Range: 36. 0 - 46.0 Hemoglobin (Bld) [Mass/Vol] 13.9 g/dL See Below [facility]-Gastroen terology-Too lwell 6 [facility] Work Phone: Comment on above: Reference Range: 12. 0 - 16.0 Platelets (Bld) [#/Vol] 275 10*3/uL 150 - 450 [facility]-Gastroen terology-Too lwell 6 [facility] Work Phone: RBC (Bld) [#/Vol] 5.11 {x10E12/L} See Below [facility] -Gastroen terology-Too lwell 6 [facility] Work Phone: Comment on above: Reference Range: 4.0 0 - 5.20 Complete Blood Count + Differential 10.1 % See Below [facility]astroen [facility]ology-Too [facility]well 6 [facility] Work Phone: Comment on above: Reference Range: 13. 0 - 44.0 Complete Blood Count + Differential 0.6 % 0.0 - 0.9 [facility]astroen terology-Too lwell 6 [facility] Work Phone: Comment on above: Immature Granulocyte Count (IG) includes promyelocytes, myelocytes and metamyelocytes but does not include bands. Percent differential counts (%) should be interpreted in the context of the absolute cell counts (cells/L). Complete Blood Count + Differential 87.7 % See Below [facility]astro[facility]ology-Too [facility]well 6 I Work Phone: Comment on above: Reference Range: 40. 0 - 80.0 Complete Blood Count + Differential 14.6 % above high threshold See Below [facility]Gastroen [facility]ology-Too [facility]well 6 [facility] Work Phone: Comment on above: Reference Range: 11. 5 - 14.5 Complete Blood Count + Differential 30.3 g/dL below low threshold See Below [facility]astro[facility]ology-Too [facility] 6 [facility] Work Phone: Comment on above: Reference Range: 32. 0 - 36.0 Complete Blood Count + Differential 90 fL 80 - 100 [facility]ology-Too [facility]well 6 [facility] Work Phone: Complete Blood Count + Differential 0.0 {/100_WBC} 0.0-0.0 [facility]astroen [facility]ology-Too lwell 6 [facility] Work Phone: Complete Blood Count + Differential 7.9 {x10E9/L} 4.4 - 11.3 [facility]astroen terology-Too lwell 6 [facility] Work Phone: Complete Blood Count + Differential 0.01 {x10E9/L} See Below [facility]-Gastroen terology-Too lwell 6 [facility] Work Phone: Comment on above: Reference Range: 0.0 0 - 0.10 Complete Blood Count + Differential 0.00 {x10E9/L} See Below [facility]astroen terology-Too lwell 6 [facility] Work Phone: Comment on above: Reference Range: 0.0 0 - 0.70 Complete Blood Count + Differential 0.12 {x10E9/L} See Below [facility]astroen [facility]ology-Too [facility]well 6 [facility] Work Phone: Comment on above: Reference Range: 0.1 0 - 1.00 Complete Blood Count + Differential 0.80 {x10E9/L} below low threshold See Below [facility]astro[facility]ology-Too [facility]well 6 [facility] Work Phone: Comment on above: Reference Range: 1.2 0 - 4.80 Complete Blood Count + Differential 6.95 {x10E9/L} See Below [facility]ology-Too [facility] 6 [facility] Work Phone: Comment on above: Reference Range: 1.2 0 - 7.70 Complete Blood Count + Differential 0.1 % 0.0 - 2.0 [facility]ology-Too lwell 6 I Work Phone: Complete Blood Count + Differential 0.0 % 0.0 - 6.0 [facility] 6 [facility] Work Phone: Complete Blood Count + Differential 1.5 % 2.0 - 10.0 [facility]ology-Too lwell 6 I Work Phone: Daily Progress Note-[facility] 07-16-2022 Daily Progress Note-Cardiovascular Medicine Service: Cardiovascular Medicine Subjective Data: CAMILLE DAWKINS is a 62 year old Female who is Hospital Day # 8. Additional Information: On my evaluation the patient appears to be very confused. She was cool to touch. On arousal she did answer some questions. Denies any chest discomfort or shortness of breath. Denies any orthopnea/PND/lower extremity edema. Objective Data: Objective Information: T PRBPMAPSpO2 [id number] 8% Date/Time07/16 8: 8: 8: 11: 11: 12:00 Range(35.6C - 36.8C ) (70 - 118 ) (16 - 24 ) (92 - 173 )/ (56 - 103 ) (69 - 110 ) (75% - 100% ) Pain reported at 07/15 20:00: 0 = None Physical Exam Narrative: Physical Exam: Gen:A&Ox3 HEENT: NC/AT, EOMI, external ear is normal Neck:supple, elevated JVD Chest:CTAB,no wheezing CVS:[id number],no murmurs Abdomen:soft,nt/nd,no organomegaly neuro:grossly intact Psych:affect/mood appropriate Extremities: No clubbing/cyanosis/trace pitting edema bilateral lower extremities Medication: Medications: Continuous Medications ------- No continuous medications are active Scheduled Medications ------- 1. Apixaban: 10 mg Oral Every 12 Hours 2. Aspirin Chewable: 81 mg Oral Daily 3. Atorvastatin: 40 mg Oral Daily 4. Budesonide 0.5 mg/ 2 mL Nebulizer Soln: 2 mL Inhalation Every 12 Hours 5. Docusate: 100 mg Oral 2 Times a Day 6. Doxycycline IV Piggy Back: 100 mg IntraVenous Piggyback Every 12 Hours 7. Empagliflozin: 10 mg Oral Daily 8. Insulin Glargine (Lantus) Injectable: 15 unit(s) SubCutaneous Every 24 Hours 9. Insulin Lispro (HUMALOG) Carb/ISF Calculator: 1 dose(s) SubCutaneous Before Meals & Bedtime 10. methylPREDNISolone Sodium Succinate Injectable: 40 mg IntraVenous Push Every 8 Hours 11. Metoprolol Tartrate: 50 mg Oral 2 Times a Day 12. Sodium Chloride 0.9% Injectable Flush: 10 mL IntraVenous Flush Every 12 Hours 13. traZODone: 100 mg Oral At Bedtime PRN Medications ------- 1. Acetaminophen: 650 mg Oral Every 4 Hours 2. ALPRAZolam: 0.5 mg Oral Every 8 Hours 3. guaiFENesin Extended Release: 600 mg Oral Every 12 Hours 4. Heparin Flush 10 unit/ mL PF Injectable: 5 mL IntraVenous Flush Every 12 Hours 5. Heparin Flush 10 unit/ mL PF Injectable PRN: 5 mL IntraVenous Flush According to Flush Policy 6. Ipratropium 500 microgram/ 2.5 mL Neb Soln: 2.5 mL Inhalation Every 6 Hours 7. Lidocaine 1% Injectable (PICC KIT): 1 mL IntraDermal Once 8. Ondansetron Injectable: 4 mg IntraVenous Push Every 4 Hours 9. Sodium Chloride 0.9% Injectable Flush: 10 mL IntraVenous Flush Every 8 Hours and as Needed 10. Sodium Chloride 0.9% Injectable Flush PRN: 10 mL IntraVenous Flush According to Flush Policy 11. Sodium Chloride 0.9% Injectable Flush PRN: 20 mL IntraVenous Flush According to Flush Policy 12. Sore Throat Lozenge: 1 lozenge(s) Oral Every 2 Hours Currently Suspended Medications ------- 1. Amiodarone: 400 mg Oral Every 12 Hours 2. Furosemide: 20 mg Oral Daily Recent Lab Results: Results: CBC: 07/16/2022 05:23 \ Hgb / \ 13.9 / WBC Plt 10.3 288 / Hct \ / 47.6 H \ RBC: 5.16 MCV: 92 BMP: 07/16/2022 05:23 NA+ Cl- BUN / 130 L 100 54 H / ------- Glucose -- 121 H K+ HCO3- Creat \ 4.5 18 L 1.96 H \ Calcium : 8.7 Anion Gap : 17 Recent Arterial Blood Gas Results 07/16/2022 10:07 [id number] 24 h range: ( 102 - 135 ) pH7.38 24 h range: ( 7.38 - 7.41 ) [id number] 24 h range: ( 28 - 34 ) SO299 24 h range: ( 99 - 100 ) Base Excess-4.2 24 h range: ( -5.5 - -4.2 )null I have reviewed these laboratory results: Lactate, Level Trending View [id number] 10:58:00 16-Jul-2022 09:19:00 16-Jul-2022 05:23:00 15-Jul-2022 21:21:00 Lactate, Level1.0 2.5 H 2.1 H 2.3 H Blood Gas, Arterial 16-Jul-2022 10:07:00 ResultValue pH, Arterial 7.38 pCO2, Arterial 34 L pO2, Arterial 102 H PATIENT TEMPERATURE, Arterial 37.0 SO2, Arterial 99 Oxy Hgb, Arterial 96.8 BASE EXCESS-BLOOD, Arterial -4.2 L BiCarb-Calculated, Arterial 20.1 L Apparatus 2L NC Sedimentation Rate, Erythrocyte 16-Jul-2022 09:24:00 ResultValue Sedimentation Rate, Erythrocyte 8 C Reactive Protein, Serum 16-Jul-2022 09:24:00 ResultValue C Reactive Protein, Serum 1.59 A Glucose_POCT 16-Jul-2022 08:46:00 ResultValue Glucose-POCT 101 H Complete Blood Count Trending View [id number] 05:23:00 15-Jul-2022 05:04:00 White Blood Cell Count10.3 10.8 Red Blood Cell Count5.16 5.45 H HGB13.9 14.7 HCT47.6 H 48.7 H MCV92 89 MCHC29.2 L 30.2 L ZWT069 280 RDW-CV14.4 14.2 Basic Metabolic Panel Trending View [id number] 05:23:00 15-Jul-2022 05:04:00 Glucose, Uzees414 H 1 (more content not included)... [facility] Daily Progress Note-Nephrolo jeimy 07-16-2022 Daily Progress Note-Nephrology Service: Nephrology Subjective Data: CAMILLE DAWKINS is a 62 year old Female who is Hospital Day # 8. Patient seen and examined at the bedside I was asked to come back and see her again as she is not doing very well When I saw her she is not able to answer my questions very well at this time She states that she is tired and she just wants to sleep She was placed on BiPAP She was moved back to the ICU due to altered mental status Her renal function also has been getting slightly progressively worse. Objective Data: Objective Information: T PRBPMAPSpO2 [id number] 8% Date/Time07/16 8: 8: 8: 11: 11: 12:00 Range(35.6C - 36.8C ) (70 - 118 ) (16 - 24 ) (92 - 173 )/ (56 - 103 ) (69 - 110 ) (75% - 100% ) Pain reported at 07/15 20:00: 0 = None Physical Exam by System: Constitutional: Awake, she is very lethargic, states that she is tired and is not answering questions very well Eyes: Extraocular muscles intact ENMT: BiPAP mask in place Head/Neck: Normocephalic, atraumatic Respiratory/Thorax: Bilateral equal breath sounds on the BiPAP Cardiovascular: Irregularly irregular with slight tachycardia Gastrointestinal: Soft, nontender, nondistended, centrally obese Musculoskeletal: Resting comfortably in bed Extremities: Very slight bilateral lower extremity edema Neurological: Awakens but briefly not answering questions very well Psychological: Unable to fully assess Skin: Warm and dry Medication: Medications: Continuous Medications ------- No continuous medications are active Scheduled Medications ------- 1. Apixaban: 10 mg Oral Every 12 Hours 2. Aspirin Chewable: 81 mg Oral Daily 3. Atorvastatin: 40 mg Oral Daily 4. Budesonide 0.5 mg/ 2 mL Nebulizer Soln: 2 mL Inhalation Every 12 Hours 5. Docusate: 100 mg Oral 2 Times a Day 6. Doxycycline IV Piggy Back: 100 mg IntraVenous Piggyback Every 12 Hours 7. Empagliflozin: 10 mg Oral Daily 8. Insulin Glargine (Lantus) Injectable: 15 unit(s) SubCutaneous Every 24 Hours 9. Insulin Lispro (HUMALOG) Carb/ISF Calculator: 1 dose(s) SubCutaneous Before Meals & Bedtime 10. methylPREDNISolone Sodium Succinate Injectable: 40 mg IntraVenous Push Every 8 Hours 11. Metoprolol Tartrate: 50 mg Oral 2 Times a Day 12. Sodium Chloride 0.9% Injectable Flush: 10 mL IntraVenous Flush Every 12 Hours 13. traZODone: 100 mg Oral At Bedtime PRN Medications ------- 1. Acetaminophen: 650 mg Oral Every 4 Hours 2. ALPRAZolam: 0.5 mg Oral Every 8 Hours 3. guaiFENesin Extended Release: 600 mg Oral Every 12 Hours 4. Heparin Flush 10 unit/ mL PF Injectable: 5 mL IntraVenous Flush Every 12 Hours 5. Heparin Flush 10 unit/ mL PF Injectable PRN: 5 mL IntraVenous Flush According to Flush Policy 6. Ipratropium 500 microgram/ 2.5 mL Neb Soln: 2.5 mL Inhalation Every 6 Hours 7. Lidocaine 1% Injectable (PICC KIT): 1 mL IntraDermal Once 8. Ondansetron Injectable: 4 mg IntraVenous Push Every 4 Hours 9. Sodium Chloride 0.9% Injectable Flush: 10 mL IntraVenous Flush Every 8 Hours and as Needed 10. Sodium Chloride 0.9% Injectable Flush PRN: 10 mL IntraVenous Flush According to Flush Policy 11. Sodium Chloride 0.9% Injectable Flush PRN: 20 mL IntraVenous Flush According to Flush Policy 12. Sore Throat Lozenge: 1 lozenge(s) Oral Every 2 Hours Currently Suspended Medications ------- 1. Amiodarone: 400 mg Oral Every 12 Hours 2. Furosemide: 20 mg Oral Daily Recent Lab Results: Results: CBC: 07/16/2022 05:23 \ Hgb / \ 13.9 / WBC Plt 10.3 288 / Hct \ / 47.6 H \ RBC: 5.16 MCV: 92 BMP: 07/16/2022 05:23 NA+ Cl- BUN / 130 L 100 54 H / ------- Glucose -- 121 H K+ HCO3- Creat \ 4.5 18 L 1.96 H \ Calcium : 8.7 Anion Gap : 17 Recent Arterial Blood Gas Results 07/16/2022 10:07 [id number] 24 h range: ( 102 - 135 ) pH7.38 24 h range: ( 7.38 - 7.41 ) [id number] 24 h range: ( 28 - 34 ) SO299 24 h range: ( 99 - 100 ) Base Excess-4.2 24 h range: ( -5.5 - -4.2 )null Radiology Results: Results: Xray Chest 1 View [Jul 16 2022 11:30AM] Echocardiogram [Jul 12 2022 10:40AM] Assessment and Plan: Comorbidities: ComorbidityOther Code Status: Code StatusFull Code Assessment: Acute kidney injury Cardiorenal syndrome Metabolic encephalopathy Atrial fibrillation with RVR Systolic congestive heart failure with ejection fraction of 20 to 25% Relative hypotension Peripheral edema with volume overload Hyponatremia Obesity Diabetes mellitus type 2 Obstructive sleep apnea Normal anion gap metabolic acidosis Plan: Clinically she does not appear to be doing very well and responding very well to medical manageme (more content not included)... [facility] Discharge [id number] Discharge Profile2 Discharge Orders: Anticipated Discharge Date: Anticipated Discharge [id number] DNAR: Code Status at Discharge: Full Code Activity: activity as tolerated. Diet: Dietlow fat Provider FINAL REVIEW of Orders: Final Review: Final Review of Medication Reconciliation and Orders Completedby Physician Reviewing ProviderNasir Mendez MD at 16-Jul-2022 17:27:05 Appointments: Follow-Up Appointment 01: Physician/Dept/Servicefol [facility] cardiology Electronic Signatures: Nasir Mendez) (Signed 16-Jul-2022 17:27) Authored: Discharge Orders, Provider FINAL REVIEW of Orders, Appointments, Gold Form - Slip Cover Seamstress Summary Last Updated: 16-Jul-2022 17:27 by Nasir Mendez) [facility] Electrocardiogram 12 Leadon 07-16-2022 Electrocardiogram 12 Lead Normal [facility] GLUCOSE-POCTon 07-16-2022 Glucose [Mass/Vol] 94 mg/dL Normal 74 - 99 [facility] Comment on above: Performed By: #### L ACT #### [address] [address] Glucose [Mass/Vol] 101 mg/dL High 74 - 99 [facility] Comment on above: Performed By: #### T RPHS #### [address] [address] Hemoglobin A1Con 07-16-2022 HbA1c (Bld) [Mass fraction] 9.6 % Abnormal [facility]astro[facility]ology-[facility] 6 I Work Phone: Comment on above: Diagnosis of Diabete s-Adults Non-Diabetic: < or = 5.6% Increased risk for developing diabetes: 5.7-6.4% Diagnostic of diabetes: > or = 6.5%. Monitoring of Diabetes Age (y) Therapeutic Goal (%) Adults: >18 <7.0 Pediatrics: 13-18 <7.5 7-12 <8.0 0- 6 7.5-8.5 [employer]. Diabetes Care 33(S1), Sep 2009. Hemoglobin A1C 229 {MG/DL} MG-Gastro en terology-Too lwell 6 [facility] Work Phone: LACTATEon 07-16-2022 Lactate [Moles/Vol] 1.0 mmol/L Normal 0.4 - 2.0 [facility] Comment on above: Result Comment: Susan puncture immediately after or during the administration of Metamizole may lead to falsely low results. Testing should be performed immediately prior to Metamizole dosing. Performed By: #### T RPHS #### [address] [address] Lactate [Moles/Vol] 2.5 mmol/L High 0.4 - 2.0 [facility] Comment on above: Result Comment: Susan puncture immediately after or during the administration of Metamizole may lead to falsely low results. Testing should be performed immediately prior to Metamizole dosing. Performed By: #### T RPHS #### [address] [address] Lactate [Moles/Vol] 2.1 mmol/L High 0.4 - 2.0 [facility] Comment on above: Result Comment: Susan puncture immediately after or during the administration of Metamizole may lead to falsely low results. Testing should be performed immediately prior to Metamizole dosing. Performed By: #### L ACT ####[place] [id number] [place] [id number] Laboratory - Chemistry and C hemistry - challengeon 07-16-2022 Albumin BCP dye [Mass/Vol] 3.4 g/dL 3.4 - 5.0 [facility]ology-[facility] 6 I Work Phone: ALP [Catalytic activity/Vol] 96 U/L 33 - 136 [facility] 6 I Work Phone: ALT With P-5'-P [Catalytic activity/Vol] 95 U/L above high threshold 7 - 45 [facility]ology-[facility] 6 [facility] Work Phone: Comment on above: Patients treated wit h Sulfasalazine may generate falsely decreased results for ALT. AST With P-5'-P [Catalytic activity/Vol] 43 U/L above high threshold 9 - 39 [facility] 6 [facility] Work Phone: Bilirubin [Mass/Vol] 1.3 mg/dL above high threshold 0.0 - 1.2 [facility]en [facility]ology-Too [facility] 6 [facility] Work Phone: Calcium [Mass/Vol] 8.8 mg/dL 8.6 - 10.6 MG-Gas troen terology-Too lwell 6 [facility] Work Phone: Chloride [Moles/Vol] 99 mmol/L 98 - 107 MG-G astroen terology-Too lwell 6 I Work Phone: CO2 [Moles/Vol] 20 mmol/L below low threshold 21 - 32 [facility]en [facility]ology-[facility] 6 [facility] Work Phone: Creatinine [Mass/Vol] 2.24 mg/dL above high threshold See Below [facility]-Gastroen terology-[facility] 6 [facility] Work Phone: Comment on above: Reference Range: 0.5 0 - 1.05 Glucose [Mass/Vol] 172 mg/dL above high threshold 74 - 99 [facility]ology-[facility] 6 [facility] Work Phone: Potassium [Moles/Vol] 5.0 mmol/L 3.5 - 5.3 MG- Gastroen terology-Too lwell 6 I Work Phone: Protein [Mass/Vol] 6.2 g/dL below low threshold 6.4 - 8.2 [facility]-Gastroen terology-Too [facility]well 6 I Work Phone: Sodium [Moles/Vol] 132 mmol/L below low threshold 136 - 145 [facility]en [facility]ology-Too [facility] 6 [facility] Work Phone: Urea nitrogen [Mass/Vol] 58 mg/dL above high threshold 6 - 23 [facility]astroen [facility]ology-Too [facility] 6 [facility] Work Phone: Base excess Calc (Bld) [Moles/Vol] -4.2000 mmol/L below low threshold -2.0 - 3.0 [facility]astroen [facility]ology-Too [facility] 6 I Work Phone: CO2 (Bld) [Partial pressure] 34 mm[Hg] below low threshold 38 - 42 [facility]astroen [facility]ology-Too [facility]well 6 [facility] Work Phone: HCO3 (Bld) [Moles/Vol] 20.1 mmol/L below low threshold See Below [facility]-Gastroen [facility]ology-Too [facility] 6 [facility] Work Phone: Comment on above: Reference Range: 22. 0 - 26.0 Oxygen (Bld) [Partial pressure] 102 mm[Hg] above high threshold 85 - 95 [facility]en [facility]ology-Too [facility] 6 [facility] Work Phone: Oxyhemoglobin (BldA) [Mass fraction] 96.8 % See Below [facility]-Gastroen [facility]ology-Too [facility] 6 [facility] Work Phone: Comment on above: Reference Range: 94. 0 - 98.0 pH (Bld) 7.38 [pH] See Below [facility]-Gastroen terology-Too lwell 6 [facility] Work Phone: Comment on above: Reference Range: 7.3 8 - 7.42 Calcium [Mass/Vol] 8.7 mg/dL 8.6 - 10.3 MG-Gas troen terology-Too lwell 6 [facility] Work Phone: Chloride [Moles/Vol] 100 mmol/L 98 - 107 MG-G astroen terology-Too lwell 6 [facility] Work Phone: CO2 [Moles/Vol] 18 mmol/L below low threshold 21 - 32 [facility]astroen [facility]ology-Too [facility] 6 [facility] Work Phone: Creatinine [Mass/Vol] 1.96 mg/dL above high threshold See Below [facility]-Gastroen terology-Too lwell 6 [facility] Work Phone: Comment on above: Reference Range: 0.5 0 - 1.05 Glucose [Mass/Vol] 121 mg/dL above high threshold 74 - 99 [facility]-Gastroen terology-Too lwell 6 [facility] Work Phone: Potassium [Moles/Vol] 4.5 mmol/L 3.5 - 5.3 MG- Gastroen terology-Too lwell 6 [facility] Work Phone: Comment on above: MILD HEMOLYSIS DETEC RICHI. The result may be falsely elevated due tohemolysis or other interferents. Clinical correlation is recommended.Repeat testing may be considered. Sodium [Moles/Vol] 130 mmol/L below low threshold 136 - 145 [facility]-Gastroen terology-Too lwell 6 I Work Phone: Urea nitrogen [Mass/Vol] 54 mg/dL above high threshold 6 - 23 [facility]en [facility]ology-Too lwell 6 I Work Phone: Laboratory - Coagulationon 1 09-15-2021 aPTT Coag (PPP) [Time] 41 s above hig h threshold 26 - 39 [facility]astroen [facility]ology-Too ell 6 [facility] Work Phone: Comment on above: THE APTT IS NO LONGE R USED FOR MONITORING UNFRACTIONATED HEPARIN THERAPY. FOR MONITORING HEPARIN THERAPY, USE THE HEPARIN ASSAY. INR Coag (PPP) [Relative time] 3.4 {INR} above high threshold 0.9 - 1.1 [facility]-Gastroen terology-Too lwell 6 [facility] Work Phone: PT Coag (PPP) [Time] 39.3 s above high threshold 9.8 - 13.4 MG-Gastroen terology-Too [facility] 6 [facility] Work Phone: Laboratory - Hematology and Cell countson 07-16-2022 Hematocrit (Bld) [Volume fraction] 47.6 % above high threshold See Below MG-Gastroen terology-Too ell 6 [facility] Work Phone: Comment on above: Reference Range: 36. 0 - 46.0 Hemoglobin (Bld) [Mass/Vol] 13.9 g/dL See Below MG-Gastroen terology-Too [facility] 6 [facility] Work Phone: Comment on above: Reference Range: 12. 0 - 16.0 Platelets (Bld) [#/Vol] 288 10*3/uL 150 - 450 MG-Gastroen terology-Too ell 6 [facility] Work Phone: RBC (Bld) [#/Vol] 5.16 {x10E12/L} See Below MG -Gastroen terology-Too ell 6 [facility] Work Phone: Comment on above: Reference Range: 4.0 0 - 5.20 Lactate, Levelon 07-16-2022 Lactate [Moles/Vol] 1.4 mmol/L 0.4 - 2.0 MG-Ga stroen terology-Too ell 6 [facility] Work Phone: Comment on above: Venipuncture immedia tely after or during the administration of Metamizole may lead to falsely low results. Testing should be performed immediately prior to Metamizole dosing. Lactate [Moles/Vol] 1.0 mmol/L 0.4 - 2.0 MG-Ga stroen terology-Too lwell 6 I Work Phone: Comment on above: Venipuncture immedia tely after or during the administration of Metamizole may lead to falsely low results. Testing should be performed immediately prior to Metamizole dosing. Lactate [Moles/Vol] 2.5 mmol/L above high threshold 0.4 - 2.0 MG-Gastroen terology-Too lwell 6 I Work Phone: Comment on above: Venipuncture immedia tely after or during the administration of Metamizole may lead to falsely low results. Testing should be performed immediately prior to Metamizole dosing. Lactate [Moles/Vol] 2.1 mmol/L above high threshold 0.4 - 2.0 MG-Gastroen terology-Too lwell 6 [facility] Work Phone: Comment on above: Venipuncture immedia tely after or during the administration of Metamizole may lead to falsely low results. Testing should be performed immediately prior to Metamizole dosing. Magnesium, Serumon Magnesium [Mass/Vol] 1.91 mg/dL See Below MG-G astroen terology-Too [facility] 6 [facility] Work Phone: Comment on above: Reference Range: 1.6 0 - 2.40 NM Perfusion Lungon 07-16-20 22 NM Lung Perfusion Normal MG-Clementine roen terology-Too [facility]well 6 [facility] Work Phone: No Panel Informationon 07-16 125 mg/dL above high threshold 74 - 99 MG-Gastroen terology-Too [facility]well 6 I Work Phone: 24 {mL/min/1.73m2} Abnormal >90 MG-Gas troen terology-Too [facility]well 6 [facility] Work Phone: Comment on above: CALCULATIONS OF LASHAWN MATED GFR ARE PERFORMED USING THE 2020 CKD-EPI STUDY REFIT EQUATION WITHOUT THE RACE VARIABLE FOR THE IDMS-TRACEABLE CREATININE METHODS.https://jasn.asnjournals.org/content/early/ ASN.2054868330 18 mmol/L 10 - 20 MG-Gastroen terology-Too lwell 6 I Work Phone: 3236 pg/mL above high threshold 0 - 99 [facility]-Gastroen terology-Too [facility] 6 [facility] Work Phone: Comment on above: . <100 pg/mL - Heart failure -423 pg/mL - Intermediate probability of acute heart. failure exacerbation. Correlate with clinical. context and patient history. >=300 pg/mL - Heart Failure likely. Correlate with clinical. context and patient history. Biotin interference may cause falsely decreased results. Patients taking a Biotin dose of up to 5 mg/day should refrain from taking Biotin for 24 hours before sample collection. Providers may contact their local laboratory for further information. [email or web address] ?TysbvaxLT=[id number]&Date =12-21-2021&Time=21%3a33% 3a17%3a00&TestType=ECG&Si te=1&OutputType=PDF&Ext=P DF [facility] Work Phone: Atrial fibrillation with rapid ventricular response [facility] Work Phone: Abnormal [facility] Work Phone: [phone] [facility] Work Phone: [phone] [facility] Work Phone: [phone] [facility] Work Phone: 18 [phone] [facility] Work Phone: [phone] [facility] Work Phone: [phone] [facility] Work Phone: [phone] [facility] Work Phone: [phone] [facility] Work Phone: [phone] [facility] Work Phone: [phone] [facility] Work Phone: [phone] 1 [facility] Work Phone: [phone] mg/dL 74 - 99 [facility] Work Phone: [phone] 2L NC [facility] Work Phone: [phone] mg/dL above high threshold 74 - 99 [facility] Work Phone: 29 {mL/min/1.73m2} Abnormal >90 [facility] Work Phone: Comment on above: CALCULATIONS OF [place] MATED GFR ARE PERFORMED USING THE 2020 CKD-EPI STUDY REFIT EQUATION WITHOUT THE RACE VARIABLE FOR THE IDMS-TRACEABLE CREATININE METHODS.https://jasn.asnjournals.org/content// ASN.2144398810 17 mmol/L 10 - 20 [facility] Work Phone: 14.4 % See Below [facility] Work Phone: Comment on above: Reference Range: 11. 5 - 14.5 29.2 g/dL below low threshold See Below [facility] Work Phone: Comment on above: Reference Range: 32. 0 - 36.0 92 fL 80 - 100 [facility] Work Phone: [phone] {x10E9/L} 4.4 - 11.3 [facility] Work Phone: Order Reconciliationon 07-16 Order Reconciliation Page 1 Discharge Reconciliation Document Reconciliation Type: Discharge requested on behalf of Nasir Mendez (Physician) done by Nasir Mendez) Discharge - Reconciliation: 16-Jul-2022 17:29 by: Nasir Mendez) Home Medications EnteredHOME MEDICATIONS AT DISCHARGE DateReconciliation Comment/ Additional Information DULoxetine 60 mg oral delayed release capsule 2 cap(s) orally once a day 10-Jul-2022 11:27 DULoxetine 60 mg oral delayed release capsule 2 cap(s) orally once a day 10-Jul-2022 11:27 DULoxetine 60 mg oral delayed release capsule is continued as DULoxetine 60 mg oral delayed release capsule Eliquis 5 mg oral tablet 1 tab(s) orally 2 times a day 09-Jul-2022 16:28 Eliquis 5 mg oral tablet 1 tab(s) orally 2 times a day 09-Jul-2022 16:28 Eliquis 5 mg oral tablet is continued as Eliquis 5 mg oral tablet Farxiga 5 mg oral tablet 1 tab(s) orally once a day 09-Jul-2022 16:29 Discontinued; Discontinue from ORM Farxiga 5 mg oral tablet is not required furosemide 20 mg oral tablet 1 tab(s) orally once a day 09-Jul-2022 16:29 Discontinued; Discontinue from ORM furosemide 20 mg oral tablet is not required glimepiride 4 mg oral tablet 1 tab(s) orally 2 times a day 09-Jul-2022 16:29 Discontinued; Discontinue from ORM glimepiride 4 mg oral tablet is not required Janumet XR 50 mg-1000 mg oral tablet, extended release 1 tab(s) orally once a day (in the evening) 10-Jul-2022 11:28 Janumet XR 50 mg-1000 mg oral tablet, extended release 1 tab(s) orally once a day (in the evening) 10-Jul-2022 11:28 Janumet XR 50 mg-1000 mg oral tablet, extended release is continued as Janumet XR 50 mg-1000 mg oral tablet, extended release LamISIL AT [employer] 1% topical cream Apply topically to affected area 2-3 times a day 09-Jul-2022 16:32 LamISIL AT [employer] 1% topical cream Apply topically to affected area 2-3 times a day 09-Jul-2022 16:32 LamISIL AT [employer] 1% topical cream is continued as LamISIL AT [employer] 1% topical cream losartan 100 mg oral tablet 1 tab(s) orally once a day 09-Jul-2022 16:30 Discontinued; Discontinue from ORM losartan 100 mg oral tablet is not required Metoprolol Succinate ER 100 mg oral tablet, extended release 1 tab(s) orally once a day 09-Jul-2022 16:30 Discontinued; Discontinue from ORM Metoprolol Succinate ER 100 mg oral tablet, extended release is not required sildenafil 50 mg oral tablet 1 tab(s) orally once a day, As Needed for libido 09-Jul-2022 16:33 Discontinued; Discontinue from ORM sildenafil 50 mg oral tablet is not required SUMAtriptan 50 mg oral tablet 1 tab(s) orally every 2 hours, As Needed - for headache (max of 200 mg/day) 10-Jul-2022 11:29 SUMAtriptan 50 mg oral tablet 1 tab(s) orally every 2 hours, As Needed - for headache (max of 200 mg/day) 10-Jul-2022 11:29 SUMAtriptan 50 mg oral tablet is continued as SUMAtriptan 50 mg oral tablet traZODone 100 mg oral tablet 1 tab(s) orally once a day (at bedtime) 09-Jul-2022 16:31 traZODone 100 mg oral tablet 1 tab(s) orally once a day (at bedtime) 09-Jul-2022 16:31 traZODone 100 mg oral tablet is continued as traZODone 100 mg oral tablet Current OrdersDateHOME MEDICATIONS AT DISCHARGE DateReconciliation Comment/ Additional Information Acetaminophen Tablet (TYLENOL)DOSE = 650 mg Oral Every 4 Hours, PRN Temp Greater Than or Equal to 38.0 C 09-Jul-2022 21:20 Acetaminophen is not required ALPRAZolam Tablet (XANAX)DOSE = 0.5 mg Oral Every 8 Hours, PRN Anxiety 15-Jul-2022 16:25 ALPRAZolam is not required Amiodarone Tablet (CORDARONE; PACERONE)DOSE = 400 mg Oral Every 12 HoursStop After 5 Days 12-Jul-2022 16:15 Amiodarone is not required Apixaban Tablet (ELIQUIS)DOSE = 10 mg Oral Every 12 HoursStop After 7 DaysClinician Notes: Initial therapy duration is for 7 days. 16-Jul-2022 09:01 Apixaban is not required Apixaban Tablet (ELIQUIS)DOSE = 5 mg Oral Every 12 HoursClinician Notes: Maintenance therapy 16-Jul-2022 09:01 Apixaban is not required Aspirin Chewable Tablet, ChewableDOSE = 81 mg Oral Daily 15-Jul-2022 14:07 Aspirin Chewable is not required Atorvastatin Tablet (LIPITOR)DOSE = 40 mg Oral Daily 15-Jul-2022 20:16 Atorvastatin is not required Budesonide 0.5 mg/ 2 mL Nebulizer Soln (PULMICORT)DOSE = 2 mL Inhalation Every 12 Hours via Nebulizer 09-Jul-2022 21:22 Budesonide 0.5 mg/ 2 mL Nebulizer Soln is not required Docusate Capsule (COLACE)DOSE = 100 mg Oral 2 Times a Day 11-Jul-2022 14:32 Docusate is not required Doxycycline IV Piggy Back in Sodium Chloride 0.9% 100 mL (VIBRAMYCIN)DOSE = 100 mg Every 12 HoursRecommended Infusion Time: 1 hour(s) 16-Jul-2022 09:24 doxycycline 100 milligram(s) every 12 hours - to 16-Jul-2022 17:27 Doxycycline IV Piggy Back is continued as doxycycline guaiFENesin Extended Release Tablet, Extended Release (MUCINEX)DOSE = 600 mg Oral Every 12 Hours, PRN Congestion 09-Jul-2022 21:20 guaiFENesin Extended Release is not requ (more content not included)... [facility] PERFUSION LUNGon 07-16-2022 PERFUSION LUNG Patient Name: CAMILLE DAWKINS STUDY: PERFUSION LUNG; 07/16/2022 7:43 am INDICATION: Chest pain . COMPARISON: Chest x-ray from ACCESSION NUMBER(S): [id number] ORDERING CLINICIAN: HAFIZ VANESSA TECHNIQUE: DIVISION OF NUCLEAR MEDICINE PERFUSION LUNG SCANS Limited anterior and posterior perfusion images of the lungs were acquired after the intravenous administration of 4.3 mCi of Tc-99m macroaggregated albumin (MAA). Patient was unable to cooperate for the rest of the exam. FINDINGS: Planar perfusion images of both lungs demonstrate mild heterogeneity with a questionable wedge-shaped abnormality in the right mid lung field. IMPRESSION: Markedly limited exam as noted above. Intermediate/indeterminat e probability for acute pulmonary embolism. Further evaluation is warranted. The interpretation above is based on modified PIOPED II and PISAPED criteria. This study was analyzed and interpreted at [place], [place]. Electronically signed by: COMFORT JACOBSON MD [facility] PROLACTINon 07-16-2022 PROLACTIN 19.1 ug/L Normal 3.0 - 20.0 [facility] Comment on above: Performed By: #### B NP2 #### [address] [address] Phosphorus, Serumon 07-16-20 Phosphate [Mass/Vol] 4.8 mg/dL 2.5 - 4.9 [facility] Work Phone: Comment on above: The performance juan a acteristics of phosphorus testing in heparinized plasma have been validated by the individual laboratory site where testing is performed. Testing on heparinized plasma is not approved by the FDA; however, such approval is not necessary. Prolactin, Serumon Prolactin [Mass/Vol] 19.1 ug/L 3.0 - 20.0 [facility] Work Phone: Radiologyon 07-16-2022 XR Chest Single view Normal [facility] Work Phone: SEDIMENTATION RATE, ERYTHROC YTEon 07-16-2022 SEDIMENTATION RATE, ERYTHROCYTE 8 mm/h Normal 0 - 30 [facility] Comment on above: Performed By: #### L ACT #### [address] [address] Sedimentation Rate, Erythroc yteon 11-04-2022 ESR (Bld) [Velocity] 8 mm/h 0 - 30 [facility] Work Phone: TROPONIN I, HIGH SENSITIVITY on 07-16-2022 Tropinin I.cardiac panel High sensitivity method 22 ng/L 0 - 34 [facility] Work Phone: Comment on above: .Less than 99th perc entile of normal range cutoff-Female and children under 18 years old <35 ng/L; Male <54 ng/L: NegativeRepeat testing should be performed if clinically indicated. .Female and children under 18 years old 35-120 ng/L; Male 54-120 ng/L:Consistent with possible cardiac damage and possible increased clinical risk. Serial measurements may help to assess extent of myocardial damage. .>120 ng/L: Consistent with cardiac damage, increased clinical risk andmyocardial infarction. Serial measurements may help assess extent of myocardial damage. . NOTE: Children less than 1 year old may have higher baseline troponin levels and results should be interpreted in conjunction with the overall clinical context..NOTE: Troponin I testing is performed using a different testing methodology at [facility] than at other [facility]. Direct result comparisons should only be made within the same method. TROPONIN I, HIGH SENSITIVITY 31 ng/L High 0 - 13 [facility] Comment on above: Result Comment: . Less than 99th percentile of normal range cutoff- Female and children under 18 years old <14 ng/L; Male <21 ng/L: Negative Repeat testing should be performed if clinically indicated. . Female and children under 18 years old 14-50 ng/L; Male 21-50 ng/L: Consistent with possible cardiac damage and possible increased clinical risk. Serial measurements may help to assess extent of myocardial damage. . >50 ng/L: Consistent with cardiac damage, increased clinical risk and myocardial infarction. Serial measurements may help assess extent of myocardial damage. . NOTE: Children less than 1 year old may have higher baseline troponin levels and results should be interpreted in conjunction with the overall clinical context. . NOTE: Troponin I testing is performed using a different testing methodology at [facility] than at other [facility]. Direct result comparisons should only be made within the same method. Performed By: #### T [facility] #### [place] [address] ARTERIAL BLOOD GASon 022 APPARATUS Cannula [facility] Comment on above: Performed By: #### T [facility] #### [place] [address] BASE EXCESS-BLOOD -5.5 mmol/L Low -2.0 - 3.0 [facility] Comment on above: Performed By: #### T [facility] #### [place] [address] BICARB, CALCULATED 17.7 mmol/L Low 22.0 - 26.0 [facility] Comment on above: Performed By: #### T [facility] #### [place] [address] FIO2 32 % [facility] Comment on above: Performed By: #### T [facility] #### [place] [address] OXY HGB 97.8 % Normal 94.0 - 98.0 [facility] Comment on above: Performed By: #### T [facility] #### [place] [address] Oxygen (Bld) [Partial pressure] 135 mm[Hg] High 85 - 95 [facility] Comment on above: Performed By: #### T [facility] #### [place] [address] PATIENT TEMPERATURE 37.0 degrees C Normal [facility] Comment on above: Result Comment: NOTE : PATIENT RESULTS ARE NOT CORRECTED FOR TEMPERATURE. Performed By: #### T [facility] #### [place] [address] PCO2 28 mmHg Low 38 - 42 [facility] Comment on above: Performed By: #### T [facility] #### [place] [address] pH (Bld) 7.41 [pH] Normal 7.38 - 7.42 [facility] Comment on above: Performed By: #### T [facility] #### [place] [address] SITE OF ARTERIAL PUNCTURE RR [facility] Comment on above: Performed By: #### T RP #### [address] [address] SO2 100 % Normal 94 - 100 [facility] Comment on above: Performed By: #### T [facility] #### [address] [address] BASIC METABOLIC PANELon 11-0 Anion gap [Moles/Vol] 16 mmol/L Normal 10 - 20 [facility] Comment on above: Performed By: #### T RPHS #### [address] [address] Calcium [Mass/Vol] 8.8 mg/dL Normal 8.6 - 10.3 [facility] Comment on above: Performed By: #### T [facility] #### [address] [address] Chloride [Moles/Vol] 101 mmol/L Normal 98 - 107 [facility] Comment on above: Performed By: #### T RPH[facility] #### [address] [address] Creatinine [Mass/Vol] 1.72 mg/dL High 0.50 - 1.05 [facility] Comment on above: Performed By: #### T [facility] #### [address] [address] GFR/1.73 sq M.predicted among non-blacks MDRD (S/P/Bld) [Vol rate/Area] 33 mL/min/{1.73_m2} Abnormal >90 [facility] Comment on above: Result Comment: CALC ULATIONS OF ESTIMATED GFR ARE PERFORMED USING THE 2020 CKD-EPI STUDY REFIT EQUATION WITHOUT THE RACE VARIABLE FOR THE IDMS-TRACEABLE CREATININE METHODS. https://jasn.asnjournals.org/content/early/ASN.2020 547781 Performed By: #### T [facility] #### [address] [address] Glucose [Mass/Vol] 131 mg/dL High 74 - 99 [facility] Comment on above: Performed By: #### T RPHS #### [address] [address] HCO3 (Bld) [Moles/Vol] 19 mmol/L Low 21 - 32 [facility] Comment on above: Performed By: #### T RPHS #### [address] [address] Potassium [Moles/Vol] 4.3 mmol/L Normal 3.5 - 5.3 [facility] Comment on above: Performed By: #### T RPHS #### [address] [address] Sodium [Moles/Vol] 132 mmol/L Low 136 - 145 [facility] Comment on above: Performed By: #### T RPHS #### [address] [address] Urea nitrogen [Mass/Vol] 50 mg/dL High 6 - 23 [facility] Comment on above: Performed By: #### T RPHS #### [address] [address] CBCon 07-15-2022 Erythrocyte distribution width (RBC) [Ratio] 14.2 % Normal 11.5 - 14.5 [facility] Comment on above: Performed By: #### T RPHS #### [address] [address] Hematocrit (Bld) [Volume fraction] 48.7 % High 36.0 - 46.0 [facility] Comment on above: Performed By: #### T RPHS #### [address] [address] Hemoglobin (Bld) [Mass/Vol] 14.7 g/dL Normal 12.0 - 16.0 [facility] Comment on above: Performed By: #### T RPHS #### [address] [address] MCHC (RBC) [Mass/Vol] 30.2 g/dL Low 32.0 - 36.0 [facility] Comment on above: Performed By: #### T RPHS #### [address] [address] MCV (RBC) [Entitic vol] 89 fL Normal 80 - 100 [facility] Comment on above: Performed By: #### T [facility] #### [address] [address] Platelets (Bld) [#/Vol] 280 10*3/uL Normal 150 - 450 [facility] Comment on above: Performed By: #### T [facility] #### [address] [address] RBC 5.45 x10E12/L High 4.00 - 5.20 [facility] Comment on above: Performed By: #### T [facility] #### [address] [address] WBC (Bld) [#/Vol] 10.8 10*3/uL Normal 4.4 - 11.3 [facility] Comment on above: Performed By: #### T [facility] #### [address] [address] Clinical Event Note-bedside evalon 07-15-2022 Clinical Event Note-bedside eval Clinical Event: Clinical Event Note: Topicbedside eval Details i was called to the bedside by YOLANDA Damico to evaluate patient for c/o chest pain. I evaluated patient and patient is cool to touch, hard to get a pulse ox d.t nail nepalese. I ordered STAT EKG, troponin, CXR, lactate, and ABG. I also placed patient on oxygen. I updated DR Mendez on event as he is taking care of patient today and my attending. DR Mendez went to bedside and also evaluated patient. Objective Information T PRBPMAPSpO2 [id number]/7596% Date/Time07/15 13: 13: 12: 16: 13:00 Range(36.2C - 37.1C ) (71 - 102 ) (15 - 34 ) (92 - 173 )/ (70 - 99 ) (95% - 98% ) Highest temp of 37.1 C was recorded at 07/14 19:00 Electronic Signatures: Sofia Huang (CAR DELIVERER-SITE ADMINISTRATOR) (Signed 15-Jul-2022 17:14) Authored: Clinical Event Note Last Updated: 15-Jul-2022 17:14 by Sofia Huang (CAR DELIVERER-SITE ADMINISTRATOR) [facility] Daily Progress Note-General Internal Medicineon 07-15-2022 Daily Progress Note-General Internal Medicine Service: General Internal Medicine Subjective Data: CAMILLE DAWKINS is a 62 year old Female who is Hospital Day # 7. Generalized weakness, some shortness of breath on ambulation Still tachycardic but better than before No neck pain Fevers chest discomfort, anxiety Hyperventilating episode. Overnight Events: Patient had an uneventful night. Objective Data: Objective Information: T PRBPMAPSpO2 [id number]/253735% Date/Time07/15 19: 19: 19: 19: 19: 13:00 Range(35.9C - 37.1C ) (70 - 102 ) (15 - 34 ) (92 - 173 )/ (56 - 99 ) (69 - 69 ) (95% - 98% ) Highest temp of 37.1 C was recorded at 07/14 19:00 Pain reported at 07/15 8:00: 0 = None Physical Exam by System: Constitutional: Obese,Well developed, awake/alert/oriented x3, no distress, alert and cooperative Eyes: PERRL, EOMI, clear sclera Head/Neck: Neck supple, no apparent injury, thyroid without mass or tenderness, No JVD, trachea midline, no bruits Respiratory/Thorax: Bilateral diminished at bases Cardiovascular: Tachycardia, A. fib, no murmurs, Gastrointestinal: Nondistended, soft, non-tender, no rebound tenderness or guarding, no masses palpable, no organomegaly, +BS, no bruits Extremities: Bilateral pitting pedal edema of both legs and feet calf improved Neurological: alert and oriented x3, intact senses, motor, response and reflexes, normal strength Lymphatic: No significant lymphadenopathy Psychological: Appropriate mood and behavior Skin: Warm and dry, no lesions, no rashes Medication: Medications: Continuous Medications ------- No continuous medications are active Scheduled Medications ------- 1. Amiodarone: 400 mg Oral Every 12 Hours 2. Apixaban: 5 mg Oral Every 12 Hours 3. Aspirin Chewable: 81 mg Oral Daily 4. Budesonide 0.5 mg/ 2 mL Nebulizer Soln: 2 mL Inhalation Every 12 Hours 5. Docusate: 100 mg Oral 2 Times a Day 6. Empagliflozin: 10 mg Oral Daily 7. Furosemide: 20 mg Oral Daily 8. Insulin Glargine (Lantus) Injectable: 15 unit(s) SubCutaneous Every 24 Hours 9. Insulin Lispro (HUMALOG) Carb/ISF Calculator: 1 dose(s) SubCutaneous Before Meals & Bedtime 10. LORazepam Injectable: 0.5 mg IntraVenous Push Once 11. Metoprolol Tartrate: 50 mg Oral 2 Times a Day 12. Technetium Tc 99m Albumin Aggregated MAA - (Radiology Contrast): 4 milliCurie IntraVenous Push Once 13. Technetium Tc 99m Pentetate (DTPA - Radiology Contrast): 40 milliCurie Inhalation Once 14. traZODone: 100 mg Oral At Bedtime PRN Medications ------- 1. Acetaminophen: 650 mg Oral Every 4 Hours 2. ALPRAZolam: 0.5 mg Oral Every 8 Hours 3. guaiFENesin Extended Release: 600 mg Oral Every 12 Hours 4. Ipratropium 500 microgram/ 2.5 mL Neb Soln: 2.5 mL Inhalation Every 6 Hours 5. Ondansetron Injectable: 4 mg IntraVenous Push Every 4 Hours 6. Sodium Chloride 0.9% Injectable Flush: 10 mL IntraVenous Flush Every 8 Hours and as Needed 7. Sore Throat Lozenge: 1 lozenge(s) Oral Every 2 Hours Recent Lab Results: Results: CBC: 07/15/2022 05:04 \ Hgb / \ 14.7 / WBC Plt 10.8 280 / Hct \ / 48.7 H \ RBC: 5.45 H MCV: 89 BMP: 07/15/2022 05:04 NA+ Cl- BUN / 132 L 101 50 H / ------- Glucose -- 131 H K+ HCO3- Creat \ 4.3 19 L 1.72 H \ Calcium : 8.8 Anion Gap : 16 Recent Arterial Blood Gas Results 07/15/2022 14:27 [id number] pH7.41 [id number] Base Excess-5.5null Radiology Results: Results: Impression: 1. Likely worsening right perihilar atelectasis and/or infiltrate.. Xray Chest 1 View [Jul 15 2022 3:58PM] Assessment and Plan: Comorbidities: ComorbidityOther Code Status: Code StatusFull Code Assessment: 62-year-old female with history of hypertension, diabetes mellitus type 2, obesity, A. fib, depression found to have COVID-19 positive test, A. fib RVR, healthcare associated pneumonia, sepsis with DIVINA, lactic acidosis and leukocytosis, hyperglycemia, metabolic encephalopathy, hyperkalemia, hyponatremia, transaminitis, mild rhabdomyolysis, elevated BNP to evaluate congestive heart failure, troponin elevation likely from sepsis and DIVINA with pneumonia Assessment Acute on chronic congestive heart failure exacerabation Systolic heart failure with severely reduced ejection fraction 20 to 25% Afib with RVR COVID Infection Volume Overload DIVINA - cr going up again Hyponatremia improving T2DM JAMAAL Cardiorenal syndrome Plan Jardiance and insulin as ordered Patient continues to be in A. fib with RVR and monitor on telemetry She is also hypotensive so to be watchful with medicines, on metoprolol 50 mg p.o. twice daily Per cardiology commendations amiodarone 400 mg twice daily(on 07/12/2022) for (more content not included)... [facility] Electrocardiogram 12 Leadon 07-15-2022 Electrocardiogram 12 Lead Normal [facility] GLUCOSE-POCTon 07-15-2022 Glucose [Mass/Vol] 176 mg/dL High 74 - 99 [facility] Comment on above: Performed By: #### T RPHS #### [address] [address] Glucose [Mass/Vol] 138 mg/dL High 74 - 99 [facility] Comment on above: Performed By: #### T RPHS #### [address] [address] Glucose [Mass/Vol] 157 mg/dL High 74 - 99 [facility] Comment on above: Performed By: #### G MANJULA #### [address] [address] Glucose [Mass/Vol] 105 mg/dL High 74 - 99 [facility] Comment on above: Performed By: #### T RPHS #### [address] [address] LACTATEon 07-15-2022 Lactate [Moles/Vol] 2.3 mmol/L High 0.4 - 2.0 [facility] Comment on above: Result Comment: Suasn puncture immediately after or during the administration of Metamizole may lead to falsely low results. Testing should be performed immediately prior to Metamizole dosing. Performed By: #### T RPHS #### [place] [id number] LACTATE Canceled [facility] Comment on above: Order Comment: TEST LACTATE WAS CANCELLED, 07/15/2022 21:22 2nd shift could not get. Result Comment: Susan puncture immediately after or during the administration of Metamizole may lead to falsely low results. Testing should be performed immediately prior to Metamizole dosing. Performed By: #### T RPHS #### [address] [address] Laboratory - Chemistry and C hemistry - challengeon 07-15-2022 Base excess Calc (Bld) [Moles/Vol] -5.5000 mmol/L below low threshold -2.0 - 3.0 [facility] Work Phone: CO2 (Bld) [Partial pressure] 28 mm[Hg] below low threshold 38 - 42 [facility] Work Phone: HCO3 (Bld) [Moles/Vol] 17.7 mmol/L below low threshold See Below [facility] Work Phone: Comment on above: Reference Range: 22. 0 - 26.0 Oxygen (Bld) [Partial pressure] 135 mm[Hg] above high threshold 85 - 95 [facility] Work Phone: Oxyhemoglobin (BldA) [Mass fraction] 97.8 % See Below [facility] Work Phone: Comment on above: Reference Range: 94. 0 - 98.0 pH (Bld) 7.41 [pH] See Below [facility] Work Phone: Comment on above: Reference Range: 7.3 8 - 7.42 Calcium [Mass/Vol] 8.8 mg/dL 8.6 - 10.3 [facility] Work Phone: Chloride [Moles/Vol] 101 mmol/L 98 - 107 [facility] Work Phone: CO2 [Moles/Vol] 19 mmol/L below low threshold 21 - 32 [facility] Work Phone: Creatinine [Mass/Vol] 1.72 mg/dL above high threshold See Below [facility] Work Phone: Comment on above: Reference Range: 0.5 0 - 1.05 Glucose [Mass/Vol] 131 mg/dL above high threshold 74 - 99 [facility] Work Phone: Potassium [Moles/Vol] 4.3 mmol/L 3.5 - 5.3 [facility] Work Phone: Sodium [Moles/Vol] 132 mmol/L below low threshold 136 - 145 [facility] Work Phone: Urea nitrogen [Mass/Vol] 50 mg/dL above high threshold 6 - 23 [facility] Work Phone: Laboratory - Hematology and Cell countson 07-15-2022 Hematocrit (Bld) [Volume fraction] 48.7 % above high threshold See Below [facility] Work Phone: Comment on above: Reference Range: 36. 0 - 46.0 Hemoglobin (Bld) [Mass/Vol] 14.7 g/dL See Below [facility] Work Phone: Comment on above: Reference Range: 12. 0 - 16.0 Platelets (Bld) [#/Vol] 280 10*3/uL 150 - 450 [facility] Work Phone: RBC (Bld) [#/Vol] 5.45 {x10E12/L} above high threshold See Below [facility] Work Phone: Comment on above: Reference Range: 4.0 0 - 5.20 Lactate, Levelon 07-15-2022 Lactate [Moles/Vol] 2.3 mmol/L above high threshold 0.4 - 2.0 [facility] Work Phone: Comment on above: Venipuncture immedia tely after or during the administration of Metamizole may lead to falsely low results. Testing should be performed immediately prior to Metamizole dosing. No Panel Informationon 07-15 176 mg/dL above high threshold 74 - 99 [facility] Work Phone: 138 mg/dL above high threshold 74 - 99 [facility] Work Phone: Inhaled oxygen concentration 32 % [facility] Work Phone: [phone] Cannula [facility] Work Phone: [phone] RR [facility] Work Phone: [phone] [email or web address] ?[id number]&Date =11-20-2021&Time=14%3a03% 3a56%3a00&TestType=ECG&Si te=14&OutputType=PDF&Ext= PDF [facility] Work Phone: [phone] Atrial fibrillation [facility] Work Phone: [phone] Abnormal [facility] Work Phone: [phone] 1 [facility] Work Phone: [phone] 1 [facility] Work Phone: [phone] 1 [facility] Work Phone: [phone] 1 [facility] Work Phone: [phone] 1 [facility] Work Phone: [phone] 1 [facility] Work Phone: [phone] 1 [facility] Work Phone: [phone] 1 [facility] Work Phone: [phone] 1 [facility] Work Phone: [phone] 1 [facility] Work Phone: 99 1 [facility] Work Phone: 157 mg/dL above high threshold 74 - 99 [facility] Work Phone: 105 mg/dL above high threshold 74 - 99 [facility] Work Phone: 14.2 % See Below [facility] Work Phone: Comment on above: Reference Range: 11. 5 - 14.5 30.2 g/dL below low threshold See Below [facility] Work Phone: Comment on above: Reference Range: 32. 0 - 36.0 89 fL 80 - 100 [facility] Work Phone: 10.8 {x10E9/L} 4.4 - 11.3 [facility] Work Phone: 33 {mL/min/1.73m2} Abnormal >90 [facility] Work Phone: Comment on above: CALCULATIONS OF LASHAWN MATED GFR ARE PERFORMED USING THE 2020 CKD-EPI STUDY REFIT EQUATION WITHOUT THE RACE VARIABLE FOR THE IDMS-TRACEABLE CREATININE METHODS.https://jasn.asnjournals.org/content/early// ASN.8782042675 16 mmol/L 10 - 20 [facility] Work Phone: Nutrition Therapy-Follow Upo n 07-15-2022 Nutrition Therapy-Follow Up Assessment Subjective/Objective: Note Type: Follow Up Note Authored by: Registered Dietitian Family Sociologist Pager Number: Doc [facility] Nutrition Note: The patient is a 62 year old Female who presented with elevated heart rate and found to be A. fiib per physician note. Per chart review patient denies SOB or chest pain. Patient has sepsis with pneumonia and COVID per physician note. Due to COVID positive was unable to assess patient in person, spoke with patient via phone and also obtained information on patient via chart review and IDT rounds. PMH: hypertension, DM type 2, depression, High blood pressure. Spoke with patient on the phone, she reported decreased appetite over the month of June, which did not result in weight loss. She reported weight gain, but denies fluid retention. Since admission patient reported good intake of the last 3-4 meals. Her appetite is starting to return. Denies nausea, vomiting or diarrhea. She said she has been constipated but was started on COLACE and had a BM today. Patient reported being very active at home. 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 She said she's always on her feet. Labs: Glucose 120, NA 133, BUN 40, CREAT 1.38, GFR 44, Calcium 8.4 07/15/22: Patient in hospital day 6. Per chart review patient has recently been experiencing some generalized weakness, some shortness of breath on ambulation. She had a fall today (she slipped out of her chair and did not lose consciousness and no head trauma and no bleeding). Pt. on Lasix. Objective Information: Pain reported at 07/15 8:00: 0 = None ---- Intake and Output ----- Mn[facility]Dy[facility], 20[facility] 6:00 am000 Height/Weight: Height in cm: 159.9 centimeter(s) Weight (kg): 95.8 BMI (kg/m2): 37.468 square meter DBW (kg): 50 %DBW: 192 Recent Lab Results: Results: I have reviewed these laboratory results: Glucose_POCT 15-Jul-2022 11:30:00 ResultValue Glucose-POCT 157 H Complete Blood Count 15-Jul-2022 05:04:00 ResultValue White Blood Cell Count 10.8 Red Blood Cell Count 5.45 H HGB 14.7 HCT 48.7 H MCV 89 MCHC 30.2 L PLT 280 RDW-CV 14.2 Basic Metabolic Panel 15-Jul-2022 05:04:00 ResultValue Glucose, Serum 131 H NA 132 L K 4.3 CL 101 Bicarbonate, Serum 19 L Anion Gap, Serum 16 BUN 50 H CREAT 1.72 H GFR Female 33 A Calcium, Serum 8.8 Troponin I, High Sensitivity 14-Jul-2022 13:45:00 ResultValue Troponin I, High Sensitivity 26 H Current Active Medications/PN: Ondansetron Injectable, (ZOFRAN) DOSE = 4 mg IntraVenous Push Every 4 Hours, PRN Nausea and/or Vomiting, 09-Jul-2022 Insulin Lispro (HUMALOG) Carb/ISF Calculator, Units of Insulin: 1 Per Every 50 mg/dL Greater Than Target Glucose of: 100 With Meals and At Bedtime. Units of Insulin: 1 per Carbohydrates: 15 grams with All Meals Open Task Form for Actual Insulin Dose to Be Administered DO NOT USE AT MIDNIGHT AND 3AM, 09-Jul-2022 Insulin Glargine (Lantus) Injectable, DOSE = 15 unit(s) SubCutaneous Every 24 Hours Notes from Pharmacy: HIGH ALERT RCRA, 09-Jul-2022 Docusate, Capsule (COLACE) DOSE = 100 mg Oral 2 Times a Day, 11-Jul-2022 Amiodarone, Tablet (CORDARONE; PACERONE) DOSE = 400 mg Oral Every 12 Hours Stop After 5 Days, 12-Jul-2022 Empagliflozin, Tablet (JARDIANCE) DOSE = 10 mg Oral Daily, 13-Jul-2022 Metoprolol Tartrate, Tablet (LOPRESSOR) DOSE = 50 mg Oral 2 Times a Day, 13-Jul-2022 Furosemide, Tablet (LASIX) DOSE = 20 mg Oral Daily, 14-Jul-2022 Nutrition Orders: Diet, Diabetic Adult 60gram Carb/meal, 30gram Carb evening snack (9623-3160 calories), 09-Jul-2022 Food/Nutrition Related History: Energy Intake: good > 75%; Per patient report Food/Nutrition Related History: Patient reported having a good appetite prior to not feeling well. She ate when she was hungry, but didn't tend to overeat. Encouraged patient to continue eating 75-100% of meals. Patient requested ensure high protein plus with dinner tray so she could have it as a snack after meals. 07/15/22: Spoke to patient's on phone. He reports she has a good appetite and has been eating well. Patient has not been receiving the ensure high protein with dinner that she had requested. Will follow up and make sure she receives that to support her energy needs. Patient's current diet order is diabetic adult. GI Symptoms: none Oral Problems: denies Mobility: normal activity Food Allergies Comment: NKFA Nutritional Supplements: vitamin/mineral, liquid multivitamin Nutrition Focused Physical Findings: Physical Findings: deferred COVID positive patient Estimated Needs: kcals/day: 2395 Predictive Equation Used: kcals/kg; 25 (95.8kg) gms protein/day: 77-96 Weight Used: actual body wt; 0.8-1 (95.8kg) mL fluid/day: 0150-0283 Nutrition Diagnosis: Diagnosis1 resolved (more content not included)... Normal [facility] Radiologyon 07-15-2022 XR Chest Single view Normal [facility] Work Phone: TROPONIN I, HIGH SENSITIVITY on 07-15-2022 TROPONIN I, HIGH SENSITIVITY Canceled Normal [facility] Comment on above: Order Comment: TEST TROPONIN I, HIGH SENSITIVITY WAS CANCELLED, 07/15/2022 21:22 2nd shiftcould not get. Result Comment: . Less than 99th percentile of normal range cutoff- Female and children under 18 years old <14 ng/L; Male <21 ng/L: Negative Repeat testing should be performed if clinically indicated. . Female and children under 18 years old 14-50 ng/L; Male 21-50 ng/L: Consistent with possible cardiac damage and possible increased clinical risk. Serial measurements may help to assess extent of myocardial damage. . >50 ng/L: Consistent with cardiac damage, increased clinical risk and myocardial infarction. Serial measurements may help assess extent of myocardial damage. . NOTE: Children less than 1 year old may have higher baseline troponin levels and results should be interpreted in conjunction with the overall clinical context. . NOTE: Troponin I testing is performed using a different testing methodology at [facility] than at other [facility] hospitals. Direct result comparisons should only be made within the same method. Performed By: #### L ACT #### [id number] [place] [address] Tropinin I.cardiac panel High sensitivity method 31 ng/L above high threshold 0 - 13 [facility] Work Phone: Comment on above: .Less than 99th perc entile of normal range cutoff-Female and children under 18 years old <14 ng/L; Male <21 ng/L: NegativeRepeat testing should be performed if clinically indicated. .Female and children under 18 years old 14-50 ng/L; Male 21-50 ng/L:Consistent with possible cardiac damage and possible increased clinical risk. Serial measurements may help to assess extent of myocardial damage. .>50 ng/L: Consistent with cardiac damage, increased clinical risk andmyocardial infarction. Serial measurements may help assess extent of myocardial damage. . NOTE: Children less than 1 year old may have higher baseline troponin levels and results should be interpreted in conjunction with the overall clinical context. .NOTE: Troponin I testing is performed using a different testing methodology at [facility] than at [facility]. Direct result comparisons should only be made within the same method. BASIC METABOLIC PANELon 11-0 Anion gap [Moles/Vol] 14 mmol/L Normal 10 - 20 [facility] Comment on above: Performed By: #### D IMEX #### [address] [address] Calcium [Mass/Vol] 8.4 mg/dL Low 8.6 - 10.3 [facility] Comment on above: Performed By: #### D IMEX #### [address] [address] Chloride [Moles/Vol] 99 mmol/L Normal 98 - 107 [facility] Comment on above: Performed By: #### D IMEX #### [address] [address] Creatinine [Mass/Vol] 1.59 mg/dL High 0.50 - 1.05 [facility] Comment on above: Performed By: #### D IMEX #### [address] [address] GFR/1.73 sq M.predicted among non-blacks MDRD (S/P/Bld) [Vol rate/Area] 37 mL/min/{1.73_m2} Abnormal >90 [facility] Comment on above: Result Comment: CALC ULATIONS OF ESTIMATED GFR ARE PERFORMED USING THE 2020 CKD-EPI STUDY REFIT EQUATION WITHOUT THE RACE VARIABLE FOR THE IDMS-TRACEABLE CREATININE METHODS. https://jasn.asnjournals.org/content/early/ASN 530219 Performed By: #### D IMEX #### [address] [address] Glucose [Mass/Vol] 118 mg/dL High 74 - 99 [facility] Comment on above: Performed By: #### D IMEX #### [address] [address] HCO3 (Bld) [Moles/Vol] 22 mmol/L Normal 21 - 32 [facility] Comment on above: Performed By: #### D IMEX #### [address] [address] Potassium [Moles/Vol] 4.4 mmol/L Normal 3.5 - 5.3 [facility] Comment on above: Result Comment: MILD HEMOLYSIS DETECTED. The result may be falsely elevated due to hemolysis or other interferents. Clinical correlation is recommended. Repeat testing may be considered. Performed By: #### D IMEX #### [address] [address] Sodium [Moles/Vol] 131 mmol/L Low 136 - 145 [facility] Comment on above: Performed By: #### D IMEX #### [address] [address] Urea nitrogen [Mass/Vol] 44 mg/dL High 6 - 23 [facility] Comment on above: Performed By: #### D IMEX #### [address] [address] CBCon 07-14-2022 Erythrocyte distribution width (RBC) [Ratio] 14.0 % Normal 11.5 - 14.5 [facility] Comment on above: Performed By: #### G MANJULA #### [address] [address] Hematocrit (Bld) [Volume fraction] 44.7 % Normal 36.0 - 46.0 [facility] Comment on above: Performed By: #### G MANJULA #### [address] [address] Hemoglobin (Bld) [Mass/Vol] 13.6 g/dL Normal 12.0 - 16.0 [facility] Comment on above: Performed By: #### G MANJULA #### [id number] MCHC (RBC) [Mass/Vol] 30.4 g/dL Low 32.0 - 36.0 [facility] Comment on above: Performed By: #### G MANJULA #### [id number] MCV (RBC) [Entitic vol] 88 fL Normal 80 - 100 [facility] Comment on above: Performed By: #### G MANJULA #### [address] [address] Platelets (Bld) [#/Vol] 286 10*3/uL Normal 150 - 450 [facility] Comment on above: Performed By: #### G MANJULA #### [id number] RBC 5.11 x10E12/L Normal 4.00 - 5.20 [facility] Comment on above: Performed By: #### G MANJULA #### [address] [address] WBC (Bld) [#/Vol] 11.0 10*3/uL Normal 4.4 - 11.3 [facility] Comment on above: Performed By: #### G MANJULA #### [address] [address] Daily Progress Note-General Internal Medicineon 07-14-2022 Daily Progress Note-General Internal Medicine Service: General Internal Medicine Subjective Data: CAMILLE DAWKINS is a 62 year old Female who is Hospital Day # 6. Generalized weakness, some shortness of breath on ambulation Had a fall today but nonfocal exam, she slipped out of her chair and did not lose consciousness and no head trauma and no bleeding Still tachycardic but better than before No neck pain or chest pain Discussed with family and also conveyed cardiology to touch base with patient's as well. Overnight Events: Patient had an uneventful night. Objective Data: Objective Information: T PRBPMAPSpO2 [id number]/261124% Date/Time07/14 15: 15: 15: 15: 16: 15:25 Range(35.8C - 36.6C ) (92 - 137 ) (15 - 34 ) (91 - 136 )/ (68 - 107 ) (88 - 93 ) (93% - 100% ) Pain reported at 07/14 7:15: 0 = None Physical Exam by System: Constitutional: Obese,Well developed, awake/alert/oriented x3, no distress, alert and cooperative Eyes: PERRL, EOMI, clear sclera Head/Neck: Neck supple, no apparent injury, thyroid without mass or tenderness, No JVD, trachea midline, no bruits Respiratory/Thorax: Bilateral diminished at bases Cardiovascular: Tachycardia, A. fib, no murmurs, Gastrointestinal: Nondistended, soft, non-tender, no rebound tenderness or guarding, no masses palpable, no organomegaly, +BS, no bruits Extremities: Bilateral pitting pedal edema of both legs and feet calf improved Neurological: alert and oriented x3, intact senses, motor, response and reflexes, normal strength Lymphatic: No significant lymphadenopathy Psychological: Appropriate mood and behavior Skin: Warm and dry, no lesions, no rashes Medication: Medications: Continuous Medications ------- No continuous medications are active Scheduled Medications ------- 1. Amiodarone: 400 mg Oral Every 12 Hours 2. Apixaban: 5 mg Oral Every 12 Hours 3. Budesonide 0.5 mg/ 2 mL Nebulizer Soln: 2 mL Inhalation Every 12 Hours 4. Docusate: 100 mg Oral 2 Times a Day 5. Empagliflozin: 10 mg Oral Daily 6. Furosemide: 20 mg Oral Daily 7. Insulin Glargine (Lantus) Injectable: 15 unit(s) SubCutaneous Every 24 Hours 8. Insulin Lispro (HUMALOG) Carb/ISF Calculator: 1 dose(s) SubCutaneous Before Meals & Bedtime 9. Metoprolol Tartrate: 50 mg Oral 2 Times a Day 10. traZODone: 100 mg Oral At Bedtime PRN Medications ------- 1. Acetaminophen: 650 mg Oral Every 4 Hours 2. guaiFENesin Extended Release: 600 mg Oral Every 12 Hours 3. Ipratropium 500 microgram/ 2.5 mL Neb Soln: 2.5 mL Inhalation Every 6 Hours 4. Ondansetron Injectable: 4 mg IntraVenous Push Every 4 Hours 5. Sodium Chloride 0.9% Injectable Flush: 10 mL IntraVenous Flush Every 8 Hours and as Needed 6. Sore Throat Lozenge: 1 lozenge(s) Oral Every 2 Hours Recent Lab Results: Results: CBC: 07/14/2022 04:53 \ Hgb / \ 13.6 / WBC Plt 11.0 286 / Hct \ / 44.7 \ RBC: 5.11 MCV: 88 BMP: 07/14/2022 04:53 NA+ Cl- BUN / 131 L 99 44 H / ------- Glucose -- 118 H K+ HCO3- Creat \ 4.4 22 1.59 H \ Calcium : 8.4 L Anion Gap : 14 Radiology Results: Results: Conclusion: CONCLUSIONS: 1. Left ventricular systolic function is severely decreased with a 20-25% estimated ejection fraction. 2. There is global hypokinesis of the left ventricle with minor regional variations. QUANTITATIVE DATA SUMMARY: LV SYSTOLIC FUNCTION BY 2D PLANIMETRY (MOD): Normal Ranges: EF-A4C View: 29.0 % (>=55%) EF-A2C View: 39.0 % EF-Biplane: 34.7 % TRICUSPID VALVE/RVSP: Normal Ranges: Peak TR Velocity: 2.44 m/s RV Syst Pressure: 26.8 mmHg (< 30mmHg) [id number] Mitchell Ontiveros MD Electronically signed on 07/12/2022 at 10:40:48 AM Final Echocardiogram [Jul 12 2022 10:40AM] Assessment and Plan: Comorbidities: ComorbidityOther Code Status: Code StatusFull Code Assessment: 62-year-old female with history of hypertension, diabetes mellitus type 2, obesity, A. fib, depression found to have COVID-19 positive test, A. fib RVR, healthcare associated pneumonia, sepsis with DIVINA, lactic acidosis and leukocytosis, hyperglycemia, metabolic encephalopathy, hyperkalemia, hyponatremia, transaminitis, mild rhabdomyolysis, elevated BNP to evaluate congestive heart failure, troponin elevation likely from sepsis and DIVINA with pneumonia Assessment Acute on chronic congestive heart failure exacerabation Systolic heart failure with severely reduced ejection fraction 20 to 25% Afib with RVR COVID Infection Volume Overload DIVINA , Improving Hyponatremia improving T2DM JAMAAL Cardiorenal syndrome Plan Jardiance and insulin as ordered Patient continues to be in A. fib with RVR and monitor on telemetry She is also (more content not included)... Normal [facility] Electrocardiogram 12 Leadon 07-14-2022 Electrocardiogram 12 Lead Normal [facility] Electrocardiogram 12 Lead Normal [facility] GLUCOSE-POCTon 07-14-2022 Glucose [Mass/Vol] 195 mg/dL High 74 - [address] [place] [address] Comment on above: Performed By: #### L ACT #### [address] [address] Glucose [Mass/Vol] 159 mg/dL High 74 - [address] [place] [address] Comment on above: Performed By: #### T RPHS #### [address] [address] Glucose [Mass/Vol] 167 mg/dL High 74 - [address] [place] [address] Comment on above: Performed By: #### T RPHS #### [address] [address] Glucose [Mass/Vol] 107 mg/dL High [address] [place] [address] Comment on above: Performed By: #### D IMEX #### [facility] [id number] Laboratory - Chemistry and C hemistry - challengeon 07-14-2022 Calcium [Mass/Vol] 8.4 mg/dL below low threshold 8.6 - 10.3 [facility] Work Phone: Chloride [Moles/Vol] 99 mmol/L 98 - 107 [facility] Work Phone: CO2 [Moles/Vol] 22 mmol/L 21 - 32 [facility] I Work Phone: Creatinine [Mass/Vol] 1.59 mg/dL above high threshold See Below [facility] Work Phone: Comment on above: Reference Range: 0.5 0 - 1.05 Glucose [Mass/Vol] 118 mg/dL above high threshold 74 - 99 [facility] Work Phone: Potassium [Moles/Vol] 4.4 mmol/L 3.5 - 5.3 [facility] Work Phone: Comment on above: MILD HEMOLYSIS DETEC RICHI. The result may be falsely elevated due tohemolysis or other interferents. Clinical correlation is recommended.Repeat testing may be considered. Sodium [Moles/Vol] 131 mmol/L below low threshold 136 - 145 [facility] Work Phone: Urea nitrogen [Mass/Vol] 44 mg/dL above high threshold 6 - 23 [facility] Work Phone: Laboratory - Hematology and Cell countson 07-14-2022 Hematocrit (Bld) [Volume fraction] 44.7 % See Below [facility] Work Phone: Comment on above: Reference Range: 36. 0 - 46.0 Hemoglobin (Bld) [Mass/Vol] 13.6 g/dL See Below [facility] Work Phone: Comment on above: Reference Range: 12. 0 - 16.0 Platelets (Bld) [#/Vol] 286 10*3/uL 150 - 450 [facility] Work Phone: RBC (Bld) [#/Vol] 5.11 {x10E12/L} See Below [facility] Work Phone: Comment on above: Reference Range: 4.0 0 - 5.20 No Panel Informationon 07-14 195 mg/dL above high threshold 74 - 99 [facility] Work Phone: 159 mg/dL above high threshold 74 - 99 [facility] Work Phone: [email or web address] ?[id number]&Date =10-23-2021&Time=12%3a48% 3a15%3a00&TestType=ECG&Si te=14&OutputType=PDF&Ext= PDF [facility] Work Phone: [phone] Atrial fibrillation with rapid ventricular response [facility] Work Phone: Abnormal [facility] Work Phone: [phone] [facility] Work Phone: [phone] [facility] Work Phone: [phone] [facility] Work Phone: [phone] [facility] Work Phone: [phone] [facility] Work Phone: [phone] [facility] Work Phone: [phone] [facility] Work Phone: [phone] [facility] Work Phone: 90 1 [facility] Work Phone: 108 1 [facility] Work Phone: 102 1 [facility] Work Phone: 167 mg/dL above high threshold 74 - 99 [facility] Work Phone: 107 mg/dL above high threshold 74 - 99 [facility] Work Phone: 37 {mL/min/1.73m2} Abnormal >90 [facility] Work Phone: Comment on above: CALCULATIONS OF LASHAWN MATED GFR ARE PERFORMED USING THE 2020 CKD-EPI STUDY REFIT EQUATION WITHOUT THE RACE VARIABLE FOR THE IDMS-TRACEABLE CREATININE METHODS.https://jasn.asnjournals.org/content/early// ASN.6635150489 14 mmol/L 10 - 20 [facility] Work Phone: 14.0 % See Below [facility] Work Phone: Comment on above: Reference Range: 11. 5 - 14.5 30.4 g/dL below low threshold See Below [facility] Work Phone: Comment on above: Reference Range: 32. 0 - 36.0 88 fL 80 - 100 [facility] 6 [facility] Work Phone: 11.0 {x10E9/L} 4.4 - 11.3 [facility] 6 [facility] Work Phone: TROPONIN I, HIGH SENSITIVITY on 07-14-2022 TROPONIN I, HIGH SENSITIVITY 26 ng/L High 0 - 13 [facility] Comment on above: Result Comment: . Less than 99th percentile of normal range cutoff- Female and children under 18 years old <14 ng/L; Male <21 ng/L: Negative Repeat testing should be performed if clinically indicated. . Female and children under 18 years old 14-50 ng/L; Male 21-50 ng/L: Consistent with possible cardiac damage and possible increased clinical risk. Serial measurements may help to assess extent of myocardial damage. . >50 ng/L: Consistent with cardiac damage, increased clinical risk and myocardial infarction. Serial measurements may help assess extent of myocardial damage. . NOTE: Children less than 1 year old may have higher baseline troponin levels and results should be interpreted in conjunction with the overall clinical context. . NOTE: Troponin I testing is performed using a different testing methodology at [facility] than at other [facility]. Direct result comparisons should only be made within the same method. Performed By: #### D IMEX #### [id number] [place] [address] Tropinin I.cardiac panel High sensitivity method 26 ng/L above high threshold 0 - 13 [facility] Work Phone: Comment on above: .Less than 99th perc entile of normal range cutoff-Female and children under 18 years old <14 ng/L; Male <21 ng/L: NegativeRepeat testing should be performed if clinically indicated. .Female and children under 18 years old 14-50 ng/L; Male 21-50 ng/L:Consistent with possible cardiac damage and possible increased clinical risk. Serial measurements may help to assess extent of myocardial damage. .>50 ng/L: Consistent with cardiac damage, increased clinical risk andmyocardial infarction. Serial measurements may help assess extent of myocardial damage. . NOTE: Children less than 1 year old may have higher baseline troponin levels and results should be interpreted in conjunction with the overall clinical context. .NOTE: Troponin I testing is performed using a different testing methodology at [facility] than at other [facility]. Direct result comparisons should only be made within the same method. TROPONIN I, HIGH SENSITIVITY 28 ng/L High 0 - 13 [facility] Comment on above: Result Comment: . Less than 99th percentile of normal range cutoff- Female and children under 18 years old <14 ng/L; Male <21 ng/L: Negative Repeat testing should be performed if clinically indicated. . Female and children under 18 years old 14-50 ng/L; Male 21-50 ng/L: Consistent with possible cardiac damage and possible increased clinical risk. Serial measurements may help to assess extent of myocardial damage. . >50 ng/L: Consistent with cardiac damage, increased clinical risk and myocardial infarction. Serial measurements may help assess extent of myocardial damage. . NOTE: Children less than 1 year old may have higher baseline troponin levels and results should be interpreted in conjunction with the overall clinical context. . NOTE: Troponin I testing is performed using a different testing methodology at [facility] than at other [facility]. Direct result comparisons should only be made within the same method. Performed By: #### D IMEX #### [place] [address] Tropinin I.cardiac panel High sensitivity method 28 ng/L above high threshold 0 - 13 [facility] 6 [facility] Work Phone: Comment on above: .Less than 99th perc entile of normal range cutoff-Female and children under 18 years old <14 ng/L; Male <21 ng/L: NegativeRepeat testing should be performed if clinically indicated. .Female and children under 18 years old 14-50 ng/L; Male 21-50 ng/L:Consistent with possible cardiac damage and possible increased clinical risk. Serial measurements may help to assess extent of myocardial damage. .>50 ng/L: Consistent with cardiac damage, increased clinical risk andmyocardial infarction. Serial measurements may help assess extent of myocardial damage. . NOTE: Children less than 1 year old may have higher baseline troponin levels and results should be interpreted in conjunction with the overall clinical context. .NOTE: Troponin I testing is performed using a different testing methodology at [facility] than at other [facility]. Direct result comparisons should only be made within the same method. TROPONIN I, HIGH SENSITIVITY 30 ng/L High 0 - 13 [facility] Comment on above: Result Comment: . Less than 99th percentile of normal range cutoff- Female and children under 18 years old <14 ng/L; Male <21 ng/L: Negative Repeat testing should be performed if clinically indicated. . Female and children under 18 years old 14-50 ng/L; Male 21-50 ng/L: Consistent with possible cardiac damage and possible increased clinical risk. Serial measurements may help to assess extent of myocardial damage. . >50 ng/L: Consistent with cardiac damage, increased clinical risk and myocardial infarction. Serial measurements may help assess extent of myocardial damage. . NOTE: Children less than 1 year old may have higher baseline troponin levels and results should be interpreted in conjunction with the overall clinical context. . NOTE: Troponin I testing is performed using a different testing methodology at [facility] than at other [facility]. Direct result comparisons should only be made within the same method. Performed By: #### T RP #### [address] [address] BASIC METABOLIC PANELon 11-0 Anion gap [Moles/Vol] 14 mmol/L Normal 10 - 20 [facility] Comment on above: Performed By: #### T RPHS #### [address] [address] Calcium [Mass/Vol] 8.4 mg/dL Low 8.6 - 10.3 [facility] Comment on above: Performed By: #### T RPHS #### [address] [address] Chloride [Moles/Vol] 102 mmol/L Normal 98 - 107 [facility] Comment on above: Performed By: #### T RPHS #### [address] [address] Creatinine [Mass/Vol] 1.48 mg/dL High 0.50 - 1.05 [facility] Comment on above: Performed By: #### T RPHS #### [address] [address] GFR/1.73 sq M.predicted among non-blacks MDRD (S/P/Bld) [Vol rate/Area] 40 mL/min/{1.73_m2} Abnormal >90 [facility] Comment on above: Result Comment: CALC ULATIONS OF ESTIMATED GFR ARE PERFORMED USING THE 2020 CKD-EPI STUDY REFIT EQUATION WITHOUT THE RACE VARIABLE FOR THE IDMS-TRACEABLE CREATININE METHODS. https://jasn.asnjournals.org/content/early/ASN.2020 974017 Performed By: #### T RPHS #### [address] [address] Glucose [Mass/Vol] 88 mg/dL Normal 74 - 99 [facility] Comment on above: Performed By: #### T RPHS #### [address] [address] HCO3 (Bld) [Moles/Vol] 21 mmol/L Normal 21 - 32 [facility] Comment on above: Performed By: #### T RPHS #### [address] [address] Potassium [Moles/Vol] 4.7 mmol/L Normal 3.5 - 5.3 [facility] Comment on above: Result Comment: MILD HEMOLYSIS DETECTED. The result may be falsely elevated due to hemolysis or other interferents. Clinical correlation is recommended. Repeat testing may be considered. Performed By: #### T RPHS #### [address] [address] Sodium [Moles/Vol] 132 mmol/L Low 136 - 145 [facility] Comment on above: Performed By: #### T RPHS #### [address] [address] Urea nitrogen [Mass/Vol] 42 mg/dL High 6 - 23 [facility] Comment on above: Performed By: #### T RPHS #### [address] [address] CBCon 07-13-2022 Erythrocyte distribution width (RBC) [Ratio] 15.0 % High 11.5 - 14.5 [facility] Comment on above: Performed By: #### D IMEX #### [address] [address] Hematocrit (Bld) [Volume fraction] 44.9 % Normal 36.0 - 46.0 [facility] Comment on above: Performed By: #### D IMEX #### [address] [address] Hemoglobin (Bld) [Mass/Vol] 14.0 g/dL Normal 12.0 - 16.0 [facility] Comment on above: Performed By: #### D IMEX #### [address] [address] MCHC (RBC) [Mass/Vol] 31.1 g/dL Low 32.0 - 36.0 [facility] Comment on above: Performed By: #### D IMEX #### [address] [address] MCV (RBC) [Entitic vol] 88 fL Normal 80 - 100 [facility] Comment on above: Performed By: #### D IMEX #### [address] [address] Platelets (Bld) [#/Vol] 182 10*3/uL Normal 150 - 450 [facility] Comment on above: Performed By: #### D IMEX #### [address] [address] RBC 5.13 x10E12/L Normal 4.00 - 5.20 [facility] Comment on above: Performed By: #### D IMEX #### [address] [address] WBC (Bld) [#/Vol] 9.8 10*3/uL Normal 4.4 - 11.3 [facility] Comment on above: Performed By: #### D IMEX #### [address] [address] Daily Progress Note-General Internal Medicineon 07-13-2022 Daily Progress Note-General Internal Medicine Service: General Internal Medicine Subjective Data: CAMILLE DAWKINS is a 62 year old Female who is Hospital Day # 5. Patient found resting in chair denies any shortness of breath or chest pain as such and minimal swelling in legs. No fever or chills or nausea or vomiting or cough. Denies any bleeding. No syncope. Still tachycardic. Overnight Events: Patient had an uneventful night. Objective Data: Objective Information: T PRBPMAPSpO2 [id number] % Date/Time07/13 12: 12: 12: 12: 10: 12:03 Range(35.8C - 36.4C ) (95 - 149 ) (15 - 25 ) (87 - 136 )/ (57 - 107 ) (63 - 99 ) (93% - 100% ) Pain reported at 07/13 8:39: 0 = None Physical Exam by System: Constitutional: Obese,Well developed, awake/alert/oriented x3, no distress, alert and cooperative Eyes: PERRL, EOMI, clear sclera Head/Neck: Neck supple, no apparent injury, thyroid without mass or tenderness, No JVD, trachea midline, no bruits Respiratory/Thorax: Bilateral diminished at bases Cardiovascular: Tachycardia, A. fib, no murmurs, Gastrointestinal: Nondistended, soft, non-tender, no rebound tenderness or guarding, no masses palpable, no organomegaly, +BS, no bruits Extremities: Bilateral pitting pedal edema of both legs and feet calf improved Lymphatic: No significant lymphadenopathy Psychological: Appropriate mood and behavior Skin: Warm and dry, no lesions, no rashes Medication: Medications: Continuous Medications ------- No continuous medications are active Scheduled Medications ------- 1. Amiodarone: 400 mg Oral Every 12 Hours 2. Apixaban: 5 mg Oral Every 12 Hours 3. Budesonide 0.5 mg/ 2 mL Nebulizer Soln: 2 mL Inhalation Every 12 Hours 4. Docusate: 100 mg Oral 2 Times a Day 5. Empagliflozin: 10 mg Oral Daily 6. Insulin Glargine (Lantus) Injectable: 15 unit(s) SubCutaneous Every 24 Hours 7. Insulin Lispro (HUMALOG) Carb/ISF Calculator: 1 dose(s) SubCutaneous Before Meals & Bedtime 8. Metoprolol Tartrate: 50 mg Oral 2 Times a Day 9. traZODone: 100 mg Oral At Bedtime PRN Medications ------- 1. Acetaminophen: 650 mg Oral Every 4 Hours 2. guaiFENesin Extended Release: 600 mg Oral Every 12 Hours 3. Ipratropium 500 microgram/ 2.5 mL Neb Soln: 2.5 mL Inhalation Every 6 Hours 4. Ondansetron Injectable: 4 mg IntraVenous Push Every 4 Hours 5. Sodium Chloride 0.9% Injectable Flush: 10 mL IntraVenous Flush Every 8 Hours and as Needed 6. Sore Throat Lozenge: 1 lozenge(s) Oral Every 2 Hours Recent Lab Results: Results: CBC: 07/13/2022 05:31 \ Hgb / \ 14.0 / WBC Plt 9.8 182 / Hct \ / 44.9 \ RBC: 5.13 MCV: 88 BMP: 07/13/2022 05:31 NA+ Cl- BUN / 132 L 102 42 H / ------- Glucose -- 88 K+ HCO3- Creat \ 4.7 21 1.48 H \ Calcium : 8.4 L Anion Gap : 14 Radiology Results: Results: Conclusion: CONCLUSIONS: 1. Left ventricular systolic function is severely decreased with a 20-25% estimated ejection fraction. 2. There is global hypokinesis of the left ventricle with minor regional variations. QUANTITATIVE DATA SUMMARY: LV SYSTOLIC FUNCTION BY 2D PLANIMETRY (MOD): Normal Ranges: EF-A4C View: 29.0 % (>=55%) EF-A2C View: 39.0 % EF-Biplane: 34.7 % TRICUSPID VALVE/RVSP: Normal Ranges: Peak TR Velocity: 2.44 m/s RV Syst Pressure: 26.8 mmHg (< 30mmHg) [id number] Mitchell Ontiveros MD Electronically signed on 07/12/2022 at 10:40:48 AM Final Echocardiogram [Jul 12 2022 10:40AM] Assessment and Plan: Comorbidities: ComorbidityOther Code Status: Code StatusFull Code Assessment: 62-year-old female with history of hypertension, diabetes mellitus type 2, obesity, A. fib, depression found to have COVID-19 positive test, A. fib RVR, healthcare associated pneumonia, sepsis with DIVINA, lactic acidosis and leukocytosis, hyperglycemia, metabolic encephalopathy, hyperkalemia, hyponatremia, transaminitis, mild rhabdomyolysis, elevated BNP to evaluate congestive heart failure, troponin elevation likely from sepsis and DIVINA with pneumonia Assessment Acute on chronic congestive heart failure exacerabation Systolic heart failure with severely reduced action fraction 20 to 25% Afib with RVR COVID Infection Volume Overload DIVINA , Improving Hyponatremia improving T2DM JAMAAL Cardiorenal syndrome Plan Jardiance and insulin as ordered Patient continues to be in A. fib with RVR She is also hypotensive so to be watchful with medicines, on metoprolol 50 mg p.o. twice daily Per cardiology commendations amiodarone 400 mg twice daily(on 07/12/2022) for 5 days followed by 200 mg daily Lasix as tolerated but will need p.o. diuretic moving forward per nephrology Continue Eliquis Continue br (more content not included)... Normal [facility] Daily Progress Note-Nephrolo jeimy 07-13-2022 Daily Progress Note-Nephrology Service: Nephrology Subjective Data: CAMILLE DAWKINS is a 62 year old Female who is Hospital Day # 5. Patient seen and examined at the bedside this morning She is feeling pretty wiped out. She states that carvedilol is not very well tolerated by her and it feels like she really cannot do anything and she is very wiped out from that. Objective Data: Objective Information: T PRBPMAPSpO2 [id number] % Date/Time07/13 8: 8: 8: 8: 20:1/1 8:03 Range(35.9C - 36.4C ) (95 - 149 ) (16 - 25 ) (87 - 136 )/ (57 - 95 ) (63 - 99 ) (93% - 100% ) Pain reported at 07/13 8:39: 0 = None Physical Exam by System: Constitutional: Awake, alert, oriented x3 Eyes: Extraocular muscles intact ENMT: Moist mucous membranes Head/Neck: Normocephalic, atraumatic Respiratory/Thorax: Bilateral equal breath sounds diminished in bases Cardiovascular: Irregularly irregular with slight tachycardia Gastrointestinal: Soft, nontender, nondistended, centrally obese Musculoskeletal: Resting comfortably in bed Extremities: Very slight bilateral lower extremity edema Neurological: Awake, alert, oriented Psychological: Cooperative Skin: Warm and dry Medication: Medications: Continuous Medications ------- No continuous medications are active Scheduled Medications ------- 1. Amiodarone: 400 mg Oral Every 12 Hours 2. Apixaban: 5 mg Oral Every 12 Hours 3. Budesonide 0.5 mg/ 2 mL Nebulizer Soln: 2 mL Inhalation Every 12 Hours 4. Docusate: 100 mg Oral 2 Times a Day 5. Empagliflozin: 10 mg Oral Daily 6. Insulin Glargine (Lantus) Injectable: 15 unit(s) SubCutaneous Every 24 Hours 7. Insulin Lispro (HUMALOG) Carb/ISF Calculator: 1 dose(s) SubCutaneous Before Meals & Bedtime 8. Metoprolol Tartrate: 50 mg Oral 2 Times a Day 9. traZODone: 100 mg Oral At Bedtime PRN Medications ------- 1. Acetaminophen: 650 mg Oral Every 4 Hours 2. guaiFENesin Extended Release: 600 mg Oral Every 12 Hours 3. Ipratropium 500 microgram/ 2.5 mL Neb Soln: 2.5 mL Inhalation Every 6 Hours 4. Ondansetron Injectable: 4 mg IntraVenous Push Every 4 Hours 5. Sodium Chloride 0.9% Injectable Flush: 10 mL IntraVenous Flush Every 8 Hours and as Needed 6. Sore Throat Lozenge: 1 lozenge(s) Oral Every 2 Hours Recent Lab Results: Results: CBC: 07/13/2022 05:31 \ Hgb / \ 14.0 / WBC Plt 9.8 182 / Hct \ / 44.9 \ RBC: 5.13 MCV: 88 BMP: 07/13/2022 05:31 NA+ Cl- BUN / 132 L 102 42 H / ------- Glucose -- 88 K+ HCO3- Creat \ 4.7 21 1.48 H \ Calcium : 8.4 L Anion Gap : 14 Radiology Results: Results: Echocardiogram [Jul 12 2022 10:40AM] Assessment and Plan: Comorbidities: ComorbidityOther Code Status: Code StatusFull Code Assessment: Cardiorenal syndrome with evolving baseline renal function Atrial fibrillation with RVR Systolic congestive heart failure with ejection fraction of 20 to 25% Left ventricular hypokinesia Relative hypotension Peripheral edema with volume overload Hyponatremia: Slight Obesity Diabetes mellitus type 2 Obstructive sleep apnea Plan: I have discussed again in detail with Dr. Ontiveros Due to her inability to tolerate carvedilol we will change her over to metoprolol Continue amiodarone loading I would be cautious with Cardizem Start SGLT2 inhibitor She will need an oral diuretic going forward At this time I will defer rest of management to cardiology She will likely need follow-up for her renal dysfunction secondary to cardiorenal syndrome and I am happy to follow with her in the office I will sign off at this time Please call with any issues or needs Electronic Signatures: Adi Leone () (Signed 13-Jul-2022 09:26) Authored: Service, Subjective Data, Objective Data, Assessment and Plan, Note Completion Last Updated: 13-Jul-2022 09:26 by Adi Leone () Normal [facility] GLUCOSE-POCTon 07-13-2022 Glucose [Mass/Vol] 169 mg/dL High 74 - 99 [facility] Comment on above: Performed By: #### D IMEX #### [id number] [place] [address] Glucose [Mass/Vol] 191 mg/dL High 74 - 99 [facility] Comment on above: Performed By: #### T RPHS #### [address] [place] [address] Glucose [Mass/Vol] 224 mg/dL High 74 - 99 [facility] Comment on above: Performed By: #### L ACT #### [address] [address] Glucose [Mass/Vol] 127 mg/dL High 74 - 99 [facility] Comment on above: Performed By: #### D IMEX #### [address] [address] Laboratory - Chemistry and C hemistry - challengeon 07-13-2022 Calcium [Mass/Vol] 8.4 mg/dL below low threshold 8.6 - 10.3 [facility] [facility] Work Phone: Chloride [Moles/Vol] 102 mmol/L 98 - 107 [facility] 6 [facility] Work Phone: CO2 [Moles/Vol] 21 mmol/L 21 - 32 [facility] 6 [facility] Work Phone: Creatinine [Mass/Vol] 1.48 mg/dL above high threshold See Below [facility] Work Phone: Comment on above: Reference Range: 0.5 0 - 1.05 Glucose [Mass/Vol] 88 mg/dL 74 - 99 [facility] 6 [facility] Work Phone: Potassium [Moles/Vol] 4.7 mmol/L 3.5 - 5.3 [facility] Work Phone: Comment on above: MILD HEMOLYSIS DETEC RICHI. The result may be falsely elevated due tohemolysis or other interferents. Clinical correlation is recommended.Repeat testing may be considered. Sodium [Moles/Vol] 132 mmol/L below low threshold 136 - 145 [facility] Work Phone: Urea nitrogen [Mass/Vol] 42 mg/dL above high threshold 6 - 23 [facility] Work Phone: Laboratory - Hematology and Cell countson 07-13-2022 Hematocrit (Bld) [Volume fraction] 44.9 % See Below [facility] Work Phone: Comment on above: Reference Range: 36. 0 - 46.0 Hemoglobin (Bld) [Mass/Vol] 14.0 g/dL See Below [facility] Work Phone: Comment on above: Reference Range: 12. 0 - 16.0 Platelets (Bld) [#/Vol] 182 10*3/uL 150 - 450 [facility] Work Phone: RBC (Bld) [#/Vol] 5.13 {x10E12/L} See Below [facility] Work Phone: Comment on above: Reference Range: 4.0 0 - 5.20 No Panel Informationon 07-13 430 1 [facility] Work Phone: [phone] [facility] Work Phone: [phone] [facility] Work Phone: 138 1 [facility] Work Phone: 116 1 [facility] Work Phone: [email or web address] ?YemeoufKE=[id number]&Date =09-22-2021&Time=23%3a21% 3a39%3a00&TestType=ECG&Si te=14&OutputType=PDF&Ext= PDF [facility] Work Phone: Atrial fibrillation with rapid ventricular response [facility] Work Phone: Abnormal [facility] Work Phone: [phone] [facility] Work Phone: [phone] [facility] Work Phone: 221 1 [facility] I Work Phone: 19 1 [facility] Work Phone: 142 1 [facility] Work Phone: -[phone] 1 [facility] Work Phone: 169 mg/dL above high threshold 74 - 99 [facility] Work Phone: 191 mg/dL above high threshold 74 - 99 [facility] Work Phone: 224 mg/dL above high threshold 74 - 99 [facility] Work Phone: 127 mg/dL above high threshold 74 - 99 [facility] Work Phone: 40 {mL/min/1.73m2} Abnormal >90 [facility] Work Phone: Comment on above: CALCULATIONS OF [place] MATED GFR ARE PERFORMED USING THE 2020 CKD-EPI STUDY REFIT EQUATION WITHOUT THE RACE VARIABLE FOR THE IDMS-TRACEABLE CREATININE METHODS.https://jasn.asnjournals.org/content// ASN.0645089878 14 mmol/L 10 - 20 [facility] Work Phone: 15.0 % above high threshold See Below [facility] Work Phone: Comment on above: Reference Range: 11. 5 - 14.5 31.1 g/dL below low threshold See Below [facility] Work Phone: Comment on above: Reference Range: 32. 0 - 36.0 88 fL 80 - 100 [facility] Work Phone: 9.8 {x10E9/L} 4.4 - 11.3 [facility] Work Phone: TROPONIN I, HIGH SENSITIVITY on 07-13-2022 Tropinin I.cardiac panel High sensitivity method 30 ng/L above high threshold 0 - 13 [facility] Work Phone: Comment on above: .Less than 99th perc entile of normal range cutoff-Female and children under 18 years old <14 ng/L; Male <21 ng/L: NegativeRepeat testing should be performed if clinically indicated. .Female and children under 18 years old 14-50 ng/L; Male 21-50 ng/L:Consistent with possible cardiac damage and possible increased clinical risk. Serial measurements may help to assess extent of myocardial damage. .>50 ng/L: Consistent with cardiac damage, increased clinical risk andmyocardial infarction. Serial measurements may help assess extent of myocardial damage. . NOTE: Children less than 1 year old may have higher baseline troponin levels and results should be interpreted in conjunction with the overall clinical context. .NOTE: Troponin I testing is performed using a different testing methodology at [facility] than at other [facility]. Direct result comparisons should only be made within the same method. BASIC METABOLIC PANELon 10-3 Anion gap [Moles/Vol] 11 mmol/L Normal 10 - 20 [facility] Comment on above: Performed By: #### B MP ####[address] [address] Calcium [Mass/Vol] 8.4 mg/dL Low 8.6 - 10.3 [facility] Comment on above: Performed By: #### B MP ####[address] [address] Chloride [Moles/Vol] 104 mmol/L Normal 98 - 107 [facility] Comment on above: Performed By: #### B MP ####[address] [address] Creatinine [Mass/Vol] 1.38 mg/dL High 0.50 - 1.05 [facility] Comment on above: Performed By: #### B MP ####[address] [address] GFR/1.73 sq M.predicted among non-blacks MDRD (S/P/Bld) [Vol rate/Area] 44 mL/min/{1.73_m2} Abnormal >90 [facility] Comment on above: Result Comment: CALC ULATIONS OF ESTIMATED GFR ARE PERFORMED USING THE 2020 CKD-EPI STUDY REFIT EQUATION WITHOUT THE RACE VARIABLE FOR THE IDMS-TRACEABLE CREATININE METHODS. https://jasn.asnjournals.org/content/early/ASN.2020 050709 Performed By: #### B MP ####[address] [address] Glucose [Mass/Vol] 120 mg/dL High 74 - 99 [facility] Comment on above: Performed By: #### B MP ####[address] [address] HCO3 (Bld) [Moles/Vol] 22 mmol/L Normal 21 - 32 [facility] Comment on above: Performed By: #### B MP ####[address] [address] Potassium [Moles/Vol] 3.8 mmol/L Normal 3.5 - 5.3 [facility] Comment on above: Performed By: #### B MP ####[address] [place] [address] Sodium [Moles/Vol] 133 mmol/L Low 136 - 145 [facility] Comment on above: Performed By: #### B MP ####[address] [place] [address] Urea nitrogen [Mass/Vol] 40 mg/dL High 6 - 23 [facility] Comment on above: Performed By: #### B MP ####[address] [address] Consult-Cardiovascular Medic davon 07-12-2022 Consult-Cardiovascular Medicine Service: Service: Cardiovascular Medicine Consult: Consult requested by (Attending Name): Nasir Mendez Reason: eval CHF History of Present Illness: HPI: 62-year-old female with a medical history of recently diagnosed nonischemic cardiomyopathy (EF 20-25%), new onset atrial fibrillation on Eliquis, hypertension, type 2 diabetes mellitus, depression, migraine who initially presented to [facility] 07/09/2022 in the setting of atrial fibrillation with rapid ventricular rates. Cardiac issues include: Problem #1 ACC/AHA stage C HFrEF (EF 20-25%) -Noted on echocardiogram dated 07/12/2022 -Patient currently denies any chest discomfort or shortness of breath. Denies any orthopnea/PND/lower extremity edema. Denies any dizziness or lightheadedness. Ejection fraction appears comparable to the echocardiogram performed in [place] May 2022. Notably a left heart catheterization performed at that time was negative for any obstructive epicardial coronary artery disease. Problem #2 paroxysmal nonvalvular atrial fibrillation -Review of telemetry shows elevated heart rates varying 110-130 bpm -Denies any palpitations at this timeCurrent medications include Coreg 25 mg twice daily, Eliquis 5 mg twice daily. -Not on any GDMT at present. 10 point review of systems was performed and is negative unless otherwise mentioned in the HPI. Past medical history Hypertension Diabetes mellitus type II Depression Migraine A. fib possibly Social history Denies smoking or alcohol or drugs Family history reviewed with patient and not pertinent to HPI according to her Review Family/Social History and ROS: Social History: Smoking Status: never smoker (1) Allergies: penicillins: Rash, Hives/Urticaria Levaquin: Unknown Objective: Objective Information: Facundo PRBPMAPSpO2 [id number]% Date/Time07/12 8: 8: 8: 8: 8: 8:00 Range(35.6C - 36.4C ) (73 - 117 ) (11 - 29 ) (90 - 118 )/ (52 - 91 ) (63 - 90 ) (82% - 99% ) Physical Exam Narrative: Physical Exam: Gen:A&Ox3 HEENT: NC/AT, EOMI, external ear is normal Neck:supple, elevated JVD Chest:CTAB,no wheezing CVS:[id number],no murmurs Abdomen:soft,nt/nd,no organomegaly neuro:grossly intact Psych:affect/mood appropriate Extremities: No clubbing/cyanosis/trace pitting edema bilateral lower extremities Medications: Medications: Continuous Medications ------- No continuous medications are active Scheduled Medications ------- 1. Apixaban: 5 mg Oral Every 12 Hours 2. Budesonide 0.5 mg/ 2 mL Nebulizer Soln: 2 mL Inhalation Every 12 Hours 3. Carvedilol: 25 mg Oral 2 Times a Day 4. Docusate: 100 mg Oral 2 Times a Day 5. Insulin Glargine (Lantus) Injectable: 15 unit(s) SubCutaneous Every 24 Hours 6. Insulin Lispro (HUMALOG) Carb/ISF Calculator: 1 dose(s) SubCutaneous Before Meals & Bedtime 7. traZODone: 100 mg Oral At Bedtime PRN Medications ------- 1. Acetaminophen: 650 mg Oral Every 4 Hours 2. guaiFENesin Extended Release: 600 mg Oral Every 12 Hours 3. Ipratropium 500 microgram/ 2.5 mL Neb Soln: 2.5 mL Inhalation Every 6 Hours 4. Ondansetron Injectable: 4 mg IntraVenous Push Every 4 Hours 5. Sodium Chloride 0.9% Injectable Flush: 10 mL IntraVenous Flush Every 8 Hours and as Needed 6. Sore Throat Lozenge: 1 lozenge(s) Oral Every 2 Hours Recent Lab Results: Results: I have reviewed these laboratory results: Basic Metabolic Panel 12-Jul-2022 04:54:00 ResultValue Glucose, Serum 120 H NA 133 L K 3.8 CL 104 Bicarbonate, Serum 22 Anion Gap, Serum 11 BUN 40 H CREAT 1.38 H GFR Female 44 A Calcium, Serum 8.4 L Comprehensive Metabolic Panel Trending View [id number] 04:51:00 10-Jul-2022 04:54:00 09-Jul-2022 15:57:00 Glucose, Ciiie010 H 250 H 328 H NA133 L 131 L 128 L K3.7 4.4 5.4 H CL102 98 94 L Bicarbonate, Serum22 21 21 Anion Gap, Serum13 16 18 BUN47 H 60 H 70 H CREAT1.61 H 2.05 H 2.35 H GFR Dedshu38 A 27 A 23 A Calcium, Serum8.3 L 8.7 9.0 ALB3.0 L 3.3 L 3.7 ALKP88 105 133 T Pro5.6 L 6.0 L 6.6 T Bili1.3 H 1.2 1.4 H Alanine Aminotransferase, [id number] H 270 H 355 H Aspartate Transaminase, Serum52 H 82 H 147 H Lactate, Level Trending View [id number] 04:51:00 09-Jul-2022 22:26:00 09-Jul-2022 19:52:00 09-Jul-2022 15:57:00 Lactate, Level1.2 2.2 H 2.7 H 3.6 H Complete Blood Count 10-Jul-2022 04:54:00 ResultValue White Blood Cell Count 11.4 H Red Blood Cell Count 4.68 HGB 12.8 HCT 41.2 MCV 88 MCHC 31.2 L PLT 221 RDW-CV 15.1 H C Reactive Protein, Serum Trending View [id number] 04:54:00 09-Jul-2022 15:57:00 C Reactive Protein, Serum4.69 A 6.12 A Ammonia, Plasma 10-Jul-2022 04:54:00 ResultValue Ammonia, Plasma 25 Thyro (more content not included)... [facility] Daily Progress Note-General Internal Medicineon 07-12-2022 Daily Progress Note-General Internal Medicine Service: General Internal Medicine Subjective Data: CAMILLE DAWKINS is a 62 year old Female who is Hospital Day # 4. Overnight Events: Patient had an uneventful night. Additional Information: Patient seen and examined at bedside. She says she feels little bit dizzy. sHe is working at bedside with her computer Objective Data: Objective Information: T PRBPMAPSpO2 [id number]% Date/Time07/12 16: 16: 16: 16: 16: 16:00 Range(35.6C - 36.4C ) (73 - 125 ) (11 - 29 ) (87 - 118 )/ (52 - 91 ) (63 - 90 ) (82% - 99% ) Pain reported at 07/12 12:00: 0 = None Physical Exam by System: Constitutional: Obese,Well developed, awake/alert/oriented x3, no distress, alert and cooperative Eyes: PERRL, EOMI, clear sclera Head/Neck: Neck supple, no apparent injury, thyroid without mass or tenderness, No JVD, trachea midline, no bruits Respiratory/Thorax: Bilateral basal rhonchi heard Cardiovascular: Tachycardia, A. fib, no murmurs, Elevated JVD Gastrointestinal: Nondistended, soft, non-tender, no rebound tenderness or guarding, no masses palpable, no organomegaly, +BS, no bruits Extremities: Bilateral pitting pedal edema of both legs and feet calf improved Psychological: Appropriate mood and behavior Skin: Warm and dry, no lesions, no rashes Recent Lab Results: Results: BMP: 07/12/2022 04:54 NA+ Cl- BUN / 133 L 104 40 H / ------- Glucose -- 120 H K+ HCO3- Creat \ 3.8 22 1.38 H \ Calcium : 8.4 L Anion Gap : 11 Radiology Results: Results: Impression: Possible small infiltrate inferior to right minor fissure, perhaps in the right middle lobe. Xray Chest 1 View [Jul 09 2022 4:32PM] Conclusion: CONCLUSIONS: 1. Left ventricular systolic function is severely decreased with a 20-25% estimated ejection fraction. 2. There is global hypokinesis of the left ventricle with minor regional variations. QUANTITATIVE DATA SUMMARY: LV SYSTOLIC FUNCTION BY 2D PLANIMETRY (MOD): Normal Ranges: EF-A4C View: 29.0 % (>=55%) EF-A2C View: 39.0 % EF-Biplane: 34.7 % TRICUSPID VALVE/RVSP: Normal Ranges: Peak TR Velocity: 2.44 m/s RV Syst Pressure: 26.8 mmHg (< 30mmHg) [id number] Mitchell Ontiveros MD Electronically signed on 07/12/2022 at 10:40:48 AM Final Echocardiogram [Jul 12 2022 10:40AM] Assessment and Plan: Comorbidities: ComorbidityOther Code Status: Code StatusFull Code Assessment: 62-year-old female with history of hypertension, diabetes mellitus type 2, obesity, A. fib, depression found to have COVID-19 positive test, A. fib RVR, healthcare associated pneumonia, sepsis with DIVINA, lactic acidosis and leukocytosis, hyperglycemia, metabolic encephalopathy, hyperkalemia, hyponatremia, transaminitis, mild rhabdomyolysis, elevated BNP to evaluate congestive heart failure, troponin elevation likely from sepsis and DIVINA with pneumonia Assessment Acute on chronic congestive heart failure exacerabation Systolic heart failure with severely reduced action fraction 20 to 25% Afib with RVR COVID Infection Volume Overload DIVINA , Improving Hyponatremia improving T2DM JAMAAL Plan Patient continues to be in A. fib with RVR She is also hypotensive Per cardiology commendations start amiodarone 400 mg twice daily for 5 days followed by 200 mg daily We will also giving her a one-time Lasix Based on cardiology recommendation . We will reassess Grade III systolic ejection murmur along the right second intercoastal arear tomorrow and reassess her blood pressure depending on that we will pursue dialysis Continue carvedilol, dose can be reduced the patient is DC Continue Eliquis Continue breathing treatments Patient is status post 3 days of antibiotics, pneumonia is unlikely Patient is COVID-19 positive but does not require any oxygen Fingerstick glucose ACH S Insulin per sliding scale Lantus 15 units 2D echo ordered Reviewed Cardiology consult Leukocytosis resolved kidney functions improving Leukocytosis and lactic acidosis resolved LFTs trended very well Nephrology on board Patient needs to be optimized on goal-directed therapy for heart failure, she will also need to ICD placement for severely reduced EF. Cardiology on board Due to prophylaxis: Eliquis GI prophylaxis: Not required Full code (This note was generated with voice recognition software and may contain errors including spelling, grammar, syntax and misrecognition of what was dictated, that are not fully corrected) Electronic Signatures: Rene Rendon) (Signed 12-Jul-2022 16:38) Authored: Service, Assessment/Plan Review, Subjective Data, Objective Data, Assessment and Plan, Note Completion Last Updated: 12-Jul-2022 16:38 by Rene Rendon) [facility] Daily Progress Note-Nephrolo gyon 07-12-2022 Daily Progress Note-Nephrology Service: Nephrology Subjective Data: CAMILLE DAWKINS is a 62 year old Female who is Hospital Day # 4. Patient seen and examined at the bedside this morning She is resting comfortably in bed She states that she feels pretty well Her breathing is stable Heart rate is still little bit tachycardic but stable. Objective Data: Objective Information: T PRBPMAPSpO2 [id number]% Date/Time07/12 4: 4: 4: 4: 4: 4:18 Range(35.6C - 36.4C ) (73 - 107 ) (11 - 29 ) (90 - 116 )/ (52 - 91 ) (63 - 90 ) (82% - 99% ) Pain reported at 07/12 4:00: sleeping Physical Exam by System: Constitutional: Awake, alert, oriented x3 Eyes: Extraocular muscles intact ENMT: Moist mucous membranes Head/Neck: Normocephalic, atraumatic Respiratory/Thorax: Bilateral equal breath sounds diminished in bases Cardiovascular: Irregularly irregular with slight tachycardia Gastrointestinal: Soft, nontender, nondistended, centrally obese Musculoskeletal: Resting comfortably in bed Extremities: Very slight bilateral lower extremity edema Neurological: Awake, alert, oriented Psychological: Cooperative Skin: Warm and dry Medication: Medications: Continuous Medications ------- No continuous medications are active Scheduled Medications ------- 1. Apixaban: 5 mg Oral Every 12 Hours 2. Budesonide 0.5 mg/ 2 mL Nebulizer Soln: 2 mL Inhalation Every 12 Hours 3. Carvedilol: 25 mg Oral 2 Times a Day 4. Cefepime 2 gram IVPB/ Premixed Soln 100 mL: 100 mL IntraVenous Piggyback Every 12 Hours 5. Docusate: 100 mg Oral 2 Times a Day 6. Insulin Glargine (Lantus) Injectable: 15 unit(s) SubCutaneous Every 24 Hours 7. Insulin Lispro (HUMALOG) Carb/ISF Calculator: 1 dose(s) SubCutaneous Before Meals & Bedtime 8. traZODone: 100 mg Oral At Bedtime PRN Medications ------- 1. Acetaminophen: 650 mg Oral Every 4 Hours 2. guaiFENesin Extended Release: 600 mg Oral Every 12 Hours 3. Ipratropium 500 microgram/ 2.5 mL Neb Soln: 2.5 mL Inhalation Every 6 Hours 4. Ondansetron Injectable: 4 mg IntraVenous Push Every 4 Hours 5. Sodium Chloride 0.9% Injectable Flush: 10 mL IntraVenous Flush Every 8 Hours and as Needed 6. Sore Throat Lozenge: 1 lozenge(s) Oral Every 2 Hours Recent Lab Results: Results: BMP: 07/12/2022 04:54 NA+ Cl- BUN / 133 L 104 40 H / ------- Glucose -- 120 H K+ HCO3- Creat \ 3.8 22 1.38 H \ Calcium : 8.4 L Anion Gap : 11 Assessment and Plan: Comorbidities: ComorbidityOther Code Status: Code StatusFull Code Assessment: Acute renal failure: Improving at this time Atrial fibrillation with RVR Systolic congestive heart failure with ejection fraction of 30% in the past Relative hypotension Peripheral edema with volume overload Hyponatremia: Slight Obesity Diabetes mellitus type 2 Obstructive sleep apnea Plan: Renal function is currently improving nicely Continue Coreg 25 mg twice daily for now Echo was completed this morning I think this is likely going to be a little bit complex as I think she is going to have a low EF based on her history She also has relative hypotension so we are going to have to choose cautiously Stop cefepime I will discuss with Dr. Ontiveros before any further changes in medications Continue to hold diuretics for now Electronic Signatures: Adi Leone) (Signed 12-Jul-2022 07:44) Authored: Service, Subjective Data, Objective Data, Assessment and Plan, Note Completion Last Updated: 12-Jul-2022 07:44 by Adi Leone () [facility] Echocardiogramon 07-12-2022 [place] [address] [phone], TRANSTHORACIC ECHOCARDIOGRAM REPORT Patient Name: CAMILLEFunmi DAWKINS Reading Physician: [id number] Mitchell Ontiveros MD Study Date: 07/12/2022 Referring Physician: NASIR MENDEZ MD MRN/PID: [id number] PCP: Accession/Order#: [id number] Department Location: [address] Date of : 1960 Fellow: Gender: F Nurse: Admit Date: 07/09/2022 Hoop Cutter: MITUL Diehl RVT Admission Status: Inpatient - Additional Staff: Routine Height: 160.02 cm CC Report to: Weight: 95.71 kg Study Type: Echocardiogram BSA: 1.98 m2 Blood Pressure: 90 /57 mmHg Diagnosis/ICD: I48.0-Paroxysmal atrial fibrillation Indication: AFib,Covid Procedure/CPT: Echo Limited-[id number] Patient History: Pertinent History: No previous echo. Study Detail: The following Echo studies were performed: 2D, M-Mode, Doppler and color flow. Definity used as a contrast agent for endocardial border definition. The patient was awake. PHYSICIAN INTERPRETATION: Left Ventricle: Left ventricular systolic function is severely decreased, with an estimated ejection fraction of 20-25%. There is global hypokinesis of the left ventricle with minor regional variations. The left ventricular cavity size is normal. Left ventricular diastolic filling was not assessed. Left Atrium: The left atrium is normal in size. Right Ventricle: The right ventricle was not well visualized. Unable to determine right ventricular systolic function. Right Atrium: The right atrium was not well visualized. Aortic Valve: The aortic valve is trileaflet. There is no evidence of aortic valve regurgitation. Mitral Valve: The mitral valve is normal in structure. There is mild mitral valve regurgitation. Tricuspid Valve: The tricuspid valve was not well visualized. No evidence of tricuspid regurgitation. Pulmonic Valve: The pulmonic valve is structurally normal. The pulmonic valve regurgitation was not assessed. Pericardium: There is no pericardial effusion noted. Aorta: The aortic root is normal. CONCLUSIONS: 1. Left ventricular systolic function is severely decreased with a 20-25% estimated ejection fraction. 2. There is global hypokinesis of the left ventricle with minor regional variations. QUANTITATIVE DATA SUMMARY: LV SYSTOLIC FUNCTION BY 2D PLANIMETRY (MOD): Normal Ranges: EF-A4C View: 29.0 % (>=55%) EF-A2C View: 39.0 % EF-Biplane: 34.7 % TRICUSPID VALVE/RVSP: Normal Ranges: Peak TR Velocity: 2.44 m/s RV Syst Pressure: 26.8 mmHg (< 30mmHg) [id number] Mitchell Ontiveros MD Electronically signed on 07/12/2022 at 10:40:48 AM Final [facility] GLUCOSE-POCTon 07-12-2022 Glucose [Mass/Vol] 159 mg/dL High 74 - 99 [facility] Comment on above: Performed By: #### T [facility] #### [address] [address] Glucose [Mass/Vol] 226 mg/dL High 74 - 99 [facility] Comment on above: Performed By: #### L ACT #### [address] [address] Glucose [Mass/Vol] 202 mg/dL High 74 - 99 [facility] Comment on above: Performed By: #### G MANJULA #### [facility] [address] [place] [address] Glucose [Mass/Vol] 134 mg/dL High 74 - 99 [facility] Comment on above: Performed By: #### G MANJULA ####[facility] [place] [address] Laboratory - Chemistry and C hemistry - challengeon 07-12-2022 Calcium [Mass/Vol] 8.4 mg/dL below low threshold 8.6 - 10.3 [facility]astro[facility] I Work Phone: Chloride [Moles/Vol] 104 mmol/L 98 - 107 [facility] astroen terology-[facility] I Work Phone: CO2 [Moles/Vol] 22 mmol/L 21 - 32 [facility] en [facility]ology-[facility] I Work Phone: Creatinine [Mass/Vol] 1.38 mg/dL above high threshold See Below [facility] I Work Phone: Comment on above: Reference Range: 0.5 0 - 1.05 Glucose [Mass/Vol] 120 mg/dL above high threshold 74 - 99 [facility] I Work Phone: Potassium [Moles/Vol] 3.8 mmol/L 3.5 - 5.3 [facility] Work Phone: Sodium [Moles/Vol] 133 mmol/L below low threshold 136 - 145 [facility] Work Phone: Urea nitrogen [Mass/Vol] 40 mg/dL above high threshold 6 - 23 [facility] Work Phone: No Panel Informationon 07-12 159 mg/dL above high threshold 74 - 99 [facility] Work Phone: 226 mg/dL above high threshold 74 - 99 [facility] Work Phone: 202 mg/dL above high threshold 74 - 99 [facility] Work Phone: 134 mg/dL above high threshold 74 - 99 [facility] Work Phone: 44 {mL/min/1.73m2} Abnormal >90 [facility]Gas troen terology-[facility] Work Phone: Comment on above: CALCULATIONS OF LASHAWN MATED GFR ARE PERFORMED USING THE 2020 CKD-EPI STUDY REFIT EQUATION WITHOUT THE RACE VARIABLE FOR THE IDMS-TRACEABLE CREATININE METHODS.https://jasn.asnjournals.org/content// ASN.2728740385 11 mmol/L 10 - 20 [facility]astroen [facility]ology-[facility] Work Phone: Nutrition Therapy-Assessment on 07-12-2022 Nutrition Therapy-Assessment Assessment Subjective/Objective: Note Type: Assessment Note Authored by: Registered Dietitian Family Sociologist Pager Number: Doc [facility] Nutrition Note: The patient is a 62 year old Female who presented with elevated heart rate and found to be A. fiib per physician note. Per chart review patient denies SOB or chest pain. Patient has sepsis with pneumonia and COVID per physician note. Due to COVID positive was unable to assess patient in person, spoke with patient via phone and also obtained information on patient via chart review and IDT rounds. PMH: hypertension, DM type 2, depression, High blood pressure. Spoke with patient on the phone, she reported decreased appetite over the month of June, which did not result in weight loss. She reported weight gain, but denies fluid retention. Since admission patient reported good intake of the last 3-4 meals. Her appetite is starting to return. Denies nausea, vomiting or diarrhea. She said she has been constipated but was started on COLACE and had a BM today. Patient reported being very active at home. 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 She said she's always on her feet. Labs: Glucose 120, NA 133, BUN 40, CREAT 1.38, GFR 44, Calcium 8.4. Objective Information: Pain reported at 07/12 12:00: 0 = None ---- Intake and Output ----- Mn/Dy/[facility]IntakeWhite [facility] 12, 2022 2:00 [id number] Jul 12, 2022 6:00 am000 Jul 11, 2022 10:00 pm000 Height/Weight: Height in cm: 159.9 centimeter(s) Weight (kg): 95.8 BMI (kg/m2): 37.468 square meter DBW (kg): 50 %DBW: 192 Recent Lab Results: Results: I have reviewed these laboratory results: Glucose_POCT 12-Jul-2022 11:45:00 ResultValue Glucose-POCT 202 H Basic Metabolic Panel 12-Jul-2022 04:54:00 ResultValue Glucose, Serum 120 H NA 133 L K 3.8 CL 104 Bicarbonate, Serum 22 Anion Gap, Serum 11 BUN 40 H CREAT 1.38 H GFR Female 44 A Calcium, Serum 8.4 L Complete Blood Count 11-Jul-2022 04:51:00 ResultValue White Blood Cell Count 9.9 Red Blood Cell Count 4.58 HGB 12.4 HCT 40.2 MCV 88 MCHC 30.9 L PLT 209 RDW-CV 15.1 H Comprehensive Metabolic Panel 11-Jul-2022 04:51:00 ResultValue Glucose, Serum 129 H NA 133 L K 3.7 CL 102 Bicarbonate, Serum 22 Anion Gap, Serum 13 BUN 47 H CREAT 1.61 H GFR Female 36 A Calcium, Serum 8.3 L ALB 3.0 L ALKP 88 T Pro 5.6 L T Bili 1.3 H Alanine Aminotransferase, Serum 200 H Aspartate Transaminase, Serum 52 H Lactate, Level 11-Jul-2022 04:51:00 ResultValue Lactate, Level 1.2 Current Active Medications/PN: Ondansetron Injectable, (ZOFRAN) DOSE = 4 mg IntraVenous Push Every 4 Hours, PRN Nausea and/or Vomiting, 09-Jul-2022 Insulin Lispro (HUMALOG) Carb/ISF Calculator, Units of Insulin: 1 Per Every 50 mg/dL Greater Than Target Glucose of: 100 With Meals and At Bedtime. Units of Insulin: 1 per Carbohydrates: 15 grams with All Meals Open Task Form for Actual Insulin Dose to Be Administered DO NOT USE AT MIDNIGHT AND 3AM, 09-Jul-2022 traZODone, Tablet (DESYREL) DOSE = 100 mg Oral At Bedtime, 09-Jul-2022 Insulin Glargine (Lantus) Injectable, DOSE = 15 unit(s) SubCutaneous Every 24 Hours Notes from Pharmacy: HIGH ALERT [facility], 09-Jul-2022 Carvedilol, Tablet (COREG) DOSE = 25 mg Oral 2 Times a Day, 11-Jul-2022 Docusate, Capsule (COLACE) DOSE = 100 mg Oral 2 Times a Day, 11-Jul-2022 Nutrition Orders: Diet, Diabetic Adult 60gram Carb/meal, 30gram Carb evening snack ([id number] calories), 09-Jul-2022 Food/Nutrition Related History: Energy Intake: good > 75%; Per patient report Food/Nutrition Related History: Patient reported having a good appetite prior to not feeling well. She ate when she was hungry, but didn't tend to overeat. Encouraged patient to continue eating 75-100% of meals. Patient requested ensure high protein plus with dinner tray so she could have it as a snack after meals. Patient's current diet order is diabetic adult. GI Symptoms: constipation, Patient had BM today, is starting to feel better Oral Problems: denies Mobility: normal activity Food Allergies Comment: NKFA Nutritional Supplements: vitamin/mineral, liquid multivitamin Nutrition Focused Physical Findings: Physical Findings: deferred COVID positive patient Estimated Needs: kcals/day: 2395 Predictive Equation Used: kcals/kg; 25 (95.8kg) gms protein/day: 77-96 Weight Used: actual body wt; 0.8-1 (95.8kg) mL fluid/day: [id number] Nutrition Diagnosis: Diagnosis1 new. Dx: Inadequate energy intake. related to decreased appetite. as evidenced by decreased intake over a month. Diagnosis2 new. Dx: Altered nutrition-related laboratory values. related to type 2 diabetes mellitus. as evidenced by serum glucose 120 (07/12). Nutrition Interventions: Individualized Nutrition Prescription Pro (more content not included)... [facility] PROCALCITONINon 07-12-2022 PROCALCITONIN Canceled [facility] Comment on above: Order Comment: TEST PROCALCITONIN WAS CANCELLED, 07/12/2022 14:14 duplicate. Result Comment: Proc alcitonin (PCT) results measured serially can aid in decision-making for antibiotic discontinuation in patients with suspected or confirmed sepsis in conjunction with additional clinical information. Antibiotic discontinuation may be considered with a change in PCT of >80% from the peak result or when PCT falls below 0.50 ng/mL. . Procalcitonin results should not be used in isolation but should be interpreted in conjunction with additional clinical and laboratory findings. Procalcitonin results should not be used to guide the initiation of antibiotic therapy. . Falsely low PCT values in the presence of bacterial infection may occur in early infection, with atypical pathogens, localized infections, and subacute infectious endocarditis. . Falsely elevated results outside of severe bacterial infection/sepsis may be seen in patients with renal failure or insufficiency, severe trauma or zafar, recent major abdominal/cardiac surgery, acute multi-organ failure, rarely in patients with medullary thyroid carcinoma and rare neuroendocrine tumors, and non-specific interfering antibodies (heterophile antibodies, rheumatoid factor, human anti-mouse antibodies (HAMA), etc). . Performance of the PCT test in pediatric patients (<18yo), women, immunocompromised patients, and patients on immunomodulatory medications has not been evaluated. Performed By: #### L ACT #### [place] [address] PT Evaluation v2-Functional Screenon 07-12-2022 PT Evaluation v2-Functional Screen Rehab: Info: Mode of TreatmentFunctional Screen Time IN10:14 Communicated with ... at end of sessionbedside nurse Evaluation Not PerformedPT orders to evaluate and treat received 07/10/22. Chart review performed prior to functional screen. PT functional screen performed at 1014 am. Spoke with RNKeisha who reports per handoff report pt is independent up in room with steady gait. PT evaluation not warranted as pt is independent with all mobility and self care. Patient AM-PAC 24 per chart. Pt to be discharged from acute PT services at this time. Patient Profile Reviewedyes Electronic Signatures: Lina Snider (PT) (Signed 12-Jul-2022 12:05) Authored: Info Last Updated: 12-Jul-2022 12:05 by Lina Snider (PT) [facility] CBCon 07-11-2022 Erythrocyte distribution width (RBC) [Ratio] 15.1 % High 11.5 - 14.5 [facility] Comment on above: Performed By: #### C BC ####[address] [address] Hematocrit (Bld) [Volume fraction] 40.2 % Normal 36.0 - 46.0 [facility] Comment on above: Performed By: #### C BC ####[address] [address] Hemoglobin (Bld) [Mass/Vol] 12.4 g/dL Normal 12.0 - 16.0 [facility] Comment on above: Performed By: #### C BC ####[address] [address] MCHC (RBC) [Mass/Vol] 30.9 g/dL Low 32.0 - 36.0 [facility] Comment on above: Performed By: #### C BC ####[address] [address] MCV (RBC) [Entitic vol] 88 fL Normal 80 - 100 [facility] Comment on above: Performed By: #### C BC ####[address] [address] Platelets (Bld) [#/Vol] 209 10*3/uL Normal 150 - 450 [facility] Comment on above: Performed By: #### C BC ####[address] [address] RBC 4.58 x10E12/L Normal 4.00 - 5.20 [facility] Comment on above: Performed By: #### C BC ####[address] [address] WBC (Bld) [#/Vol] 9.9 10*3/uL Normal 4.4 - 11.3 [facility] Comment on above: Performed By: #### C BC ####[address] [address] COMPREHENSIVE PANELon 2021 Creatinine [Mass/Vol] 1.61 mg/dL High 0.50 - 1.05 [facility] Comment on above: Performed By: #### G MANJULA #### [address] [address] GFR/1.73 sq M.predicted among non-blacks MDRD (S/P/Bld) [Vol rate/Area] 36 mL/min/{1.73_m2} Abnormal >90 [facility] Comment on above: Result Comment: CALC ULATIONS OF ESTIMATED GFR ARE PERFORMED USING THE 2020 CKD-EPI STUDY REFIT EQUATION WITHOUT THE RACE VARIABLE FOR THE IDMS-TRACEABLE CREATININE METHODS. https://jasn.asnjournals.org/content/early//ASN.2020 334399 Performed By: #### G MANJULA #### [address] [address] Albumin [Mass/Vol] 3.0 g/dL Low 3.4 - 5.0 [facility] Comment on above: Performed By: #### G MANJULA #### [address] [address] ALP [Catalytic activity/Vol] 88 U/L Normal 33 - 136 [facility] Comment on above: Performed By: #### G MANJULA #### [address] [address] ALT [Catalytic activity/Vol] 200 U/L High 7 - 45 [facility] Comment on above: Result Comment: Radha ents treated with Sulfasalazine may generate falsely decreased results for ALT. Performed By: #### G MANJULA #### [address] [address] Anion gap [Moles/Vol] 13 mmol/L Normal 10 - 20 [facility] Comment on above: Performed By: #### G MANJULA #### [address] [address] AST [Catalytic activity/Vol] 52 U/L High 9 - 39 [facility] Comment on above: Performed By: #### G MANJULA #### [address] [address] Bilirubin [Mass/Vol] 1.3 mg/dL High 0.0 - 1.2 [facility] Comment on above: Performed By: #### G MANJULA #### [address] [address] Calcium [Mass/Vol] 8.3 mg/dL Low 8.6 - 10.3 [facility] Comment on above: Performed By: #### G MANJULA #### [address] [address] Chloride [Moles/Vol] 102 mmol/L Normal 98 - 107 [facility] Comment on above: Performed By: #### G MANJULA #### [address] [address] Glucose [Mass/Vol] 129 mg/dL High 74 - 99 [facility] Comment on above: Performed By: #### G MANJULA #### [address] [address] HCO3 (Bld) [Moles/Vol] 22 mmol/L Normal 21 - 32 [facility] Comment on above: Performed By: #### G MANJULA #### [address] [address] Potassium [Moles/Vol] 3.7 mmol/L Normal 3.5 - 5.3 [facility] Comment on above: Performed By: #### G MANJULA #### [address] [address] Protein [Mass/Vol] 5.6 g/dL Low 6.4 - 8.2 [facility] Comment on above: Performed By: #### G MANJULA #### [address] [address] Sodium [Moles/Vol] 133 mmol/L Low 136 - 145 [facility] Comment on above: Performed By: #### G MANJULA #### [address] [address] Urea nitrogen [Mass/Vol] 47 mg/dL High 6 - 23 [facility] Comment on above: Performed By: #### G MNAJULA #### [facility] [address] [place] [address] Daily Progress Note - Critic josh Greene 07-11-2022 Daily Progress Note - Critical Care Subjective Data: ID Statement: CAMILLE DAWKINS is a 62 year old Female who is Hospital Day # 3 and ICU Day #3. Patient seen and examined at the bedside this morning She is resting comfortably in bed She states that she is feeling a little bit better today Still has some edema Her heart rate is much better controlled. Objective Data: Objective Information T PRBPMAPSpO2 [id number]% Date/Time07/11 9: 10: 10: 10: 10: 10:00 Range(35.7C - 36.4C ) (73 - 120 ) (17 - 25 ) (92 - 144 )/ (55 - 92 ) (68 - 998 ) (82% - 100% ) Pain reported at 07/11 8:00: 0 = None ---- Intake and Output ----- Mn/Dy/Year TimeIntakeOutputNet Jul 11, 2022 6:00 [id number] Jul 10, 2022 10:00 [id number] Jul 10, 2022 2:00 pm000 The Intake and Output Totals for the last 24 hours are: IntakeOutputNet [id number] Date: Weight/Scale Type: 09-Jul-2022 15:2096 kg Physical Exam by System: Neurological: Awake, alert, oriented Cardiovascular: Irregularly irregular with heart rate controlled this morning Respiratory/Thorax: Bilateral equal breath sounds diminished in bases Gastrointestinal: Soft, nontender, nondistended, centrally obese Skin: Warm and dry Musculoskeletal: Resting comfortably in bed Constitutional: Awake, alert, oriented x3 Eyes: Extraocular muscles intact ENMT: Moist mucous membranes Head/Neck: Normocephalic, atraumatic Extremities: Positive bilateral lower extremity edema +1 Psychological: Cooperative Allergies: Allergies: penicillins: Rash, Hives/Urticaria Levaquin: Unknown Medications: Medications: Continuous Medications ------- 1. dilTIAZem (CARDIZEM) 125 mg/ NaCL 0.7% 125 mL Premix Infusion: 5 mg/hr IntraVenous Scheduled Medications ------- 1. Apixaban: 5 mg Oral Every 12 Hours 2. Budesonide 0.5 mg/ 2 mL Nebulizer Soln: 2 mL Inhalation Every 12 Hours 3. Carvedilol: 12.5 mg Oral 2 Times a Day 4. Cefepime 2 gram IVPB/ Premixed Soln 100 mL: 100 mL IntraVenous Piggyback Every 12 Hours 5. Insulin Glargine (Lantus) Injectable: 15 unit(s) SubCutaneous Every 24 Hours 6. Insulin Lispro (HUMALOG) Carb/ISF Calculator: 1 dose(s) SubCutaneous Before Meals & Bedtime 7. traZODone: 100 mg Oral At Bedtime PRN Medications ------- 1. Acetaminophen: 650 mg Oral Every 4 Hours 2. guaiFENesin Extended Release: 600 mg Oral Every 12 Hours 3. Ipratropium 500 microgram/ 2.5 mL Neb Soln: 2.5 mL Inhalation Every 6 Hours 4. Ondansetron Injectable: 4 mg IntraVenous Push Every 4 Hours 5. Sodium Chloride 0.9% Injectable Flush: 10 mL IntraVenous Flush Every 8 Hours and as Needed 6. Sore Throat Lozenge: 1 lozenge(s) Oral Every 2 Hours Conditional Medication Orders ------- 1. Perflutren Lipid Microsphere (Activated) 1.3 mL / NaCL 0.9% T.V. 10 mL Injectable: 0.5 mL IntraVenous Push Once Recent Lab Results: Results: CBC: 07/11/2022 04:51 \ Hgb / \ 12.4 / WBC Plt 9.9 209 / Hct \ / 40.2 \ RBC: 4.58 MCV: 88 CMP: 07/11/2022 04:51 NA+ Cl- BUN / 133 L 102 47 H / ------- Glucose -- 129 H K+ HCO3- Creat \ 3.7 22 1.61 H \ \ T Bili / \ 1.3 H / AST x ---- x ALT 52 Hx ---- x 200 H / Alk P \ / 88 \ Calcium : 8.3 L Anion Gap : 13 Albumin : 3.0 L T Protein : 5.6 L Assessment and Plan: Daily Risk Screen: Does patient have a central lineno Does patient have an indwelling urinary catheterno Is the patient intubatedno Assessment/Plan: Assessment/Plan: Acute renal failure: Improving at this time Atrial fibrillation with RVR Systolic congestive heart failure with ejection fraction of 30% in the past Relative hypotension Peripheral edema with volume overload Hyponatremia: Slight Possible right middle lobe infiltrate Obesity Diabetes mellitus type 2 Obstructive sleep apnea Plan: We will discontinue Cardizem drip I will increase her Coreg to 25 mg twice a day I will discuss with cardiology This is going to be a delicate balance for her. She has relative hypotension volume overload atrial fibs and systolic congestive heart failure She is likely not going to tolerate full goal-directed therapy With her low blood pressure amiodarone could be a good option going forward Although digoxin is not a great drug overall it could help with her blood pressure For now we will continue beta-kinjal She is on cefepime covering her for a possible pneumonia We will continue to wait on any loop diuretic for now We are checking her echo tomorrow then we will discuss in detail with cardiology on a plan going forward Code Status: Code StatusFull Code Comorbidities: ComorbidityOther Attestation: Note Completion: Critical Care PatientI have reviewed (more content not included)... [facility] Daily Progress Note-General Internal Medicineon 07-11-2022 Daily Progress Note-General Internal Medicine Service: General Internal Medicine Subjective Data: CAMILLE DAWKINS is a 62 year old Female who is Hospital Day # 3. Additional Information: Patient evaluated bedside. She was comfortable. Objective Data: Objective Information: T PRBPMAPSpO2 [id number]% Date/Time07/11 9: 10::: 10: 10:00 Range(35.7C - 36.4C ) (73 - 120 ) (17 - 25 ) (92 - 144 )/ (55 - 92 ) (68 - 998 ) (82% - 100% ) Pain reported at 07/11 8:00: 0 = None Physical Exam by System: Constitutional: Obese,Well developed, awake/alert/oriented x3, no distress, alert and cooperative Eyes: PERRL, EOMI, clear sclera Head/Neck: Neck supple, no apparent injury, thyroid without mass or tenderness, No JVD, trachea midline, no bruits Respiratory/Thorax: Bilateral basal rhonchi heard Cardiovascular: Tachycardia, A. fib, no murmurs, Elevated JVD Gastrointestinal: Nondistended, soft, non-tender, no rebound tenderness or guarding, no masses palpable, no organomegaly, +BS, no bruits Extremities: Bilateral pitting pedal edema of both legs and feet calf improved Psychological: Appropriate mood and behavior Skin: Warm and dry, no lesions, no rashes Medication: Medications: Continuous Medications ------- No continuous medications are active Scheduled Medications ------- 1. Apixaban: 5 mg Oral Every 12 Hours 2. Budesonide 0.5 mg/ 2 mL Nebulizer Soln: 2 mL Inhalation Every 12 Hours 3. Carvedilol: 25 mg Oral 2 Times a Day 4. Cefepime 2 gram IVPB/ Premixed Soln 100 mL: 100 mL IntraVenous Piggyback Every 12 Hours 5. Insulin Glargine (Lantus) Injectable: 15 unit(s) SubCutaneous Every 24 Hours 6. Insulin Lispro (HUMALOG) Carb/ISF Calculator: 1 dose(s) SubCutaneous Before Meals & Bedtime 7. Potassium Chloride Extended Release: 20 mEq Oral Once 8. traZODone: 100 mg Oral At Bedtime PRN Medications ------- 1. Acetaminophen: 650 mg Oral Every 4 Hours 2. guaiFENesin Extended Release: 600 mg Oral Every 12 Hours 3. Ipratropium 500 microgram/ 2.5 mL Neb Soln: 2.5 mL Inhalation Every 6 Hours 4. Ondansetron Injectable: 4 mg IntraVenous Push Every 4 Hours 5. Sodium Chloride 0.9% Injectable Flush: 10 mL IntraVenous Flush Every 8 Hours and as Needed 6. Sore Throat Lozenge: 1 lozenge(s) Oral Every 2 Hours Conditional Medication Orders ------- 1. Perflutren Lipid Microsphere (Activated) 1.3 mL / NaCL 0.9% T.V. 10 mL Injectable: 0.5 mL IntraVenous Push Once Recent Lab Results: Results: CBC: 07/11/2022 04:51 \ Hgb / \ 12.4 / WBC Plt 9.9 209 / Hct \ / 40.2 \ RBC: 4.58 MCV: 88 CMP: 07/11/2022 04:51 NA+ Cl- BUN / 133 L 102 47 H / ------- Glucose -- 129 H K+ HCO3- Creat \ 3.7 22 1.61 H \ \ T Bili / \ 1.3 H / AST x ---- x ALT 52 Hx ---- x 200 H / Alk P \ / 88 \ Calcium : 8.3 L Anion Gap : 13 Albumin : 3.0 L T Protein : 5.6 L Radiology Results: Results: Impression: Possible small infiltrate inferior to right minor fissure, perhaps in the right middle lobe. Xray Chest 1 View [Jul 09 2022 4:32PM] Assessment and Plan: Comorbidities: ComorbidityOther Code Status: Code StatusFull Code Assessment: 62-year-old female with history of hypertension, diabetes mellitus type 2, obesity, A. fib, depression found to have COVID-19 positive test, A. fib RVR, healthcare associated pneumonia, sepsis with DIVINA, lactic acidosis and leukocytosis, hyperglycemia, metabolic encephalopathy, hyperkalemia, hyponatremia, transaminitis, mild rhabdomyolysis, elevated BNP to evaluate congestive heart failure, troponin elevation likely from sepsis and DIVINA with pneumonia Assessment Acute on chronic congestive heart failure exacerabation Afib with RVR COVID Infection Community acquired Pneumonia Volume Overload DIVINA , Improving Hyponatremia improving T2DM JAMAAL Plan Cardizem drip dced. started on carvedilol Continue Eliquis 5 Mg p.o. twice daily Continue breathing treatments Continue IV cefepime Continue to follow blood cultures and sputum cultures Patient is COVID-19 positive but does not require any oxygen Fingerstick glucose ACH S Insulin per sliding scale Lantus 15 units 2D echo ordered pending Cardiology consult Leukocytosis resolved kidney functions improving Leukocytosis and lactic acidosis resolved LFTs trended very well Nephrology on board Lasix to be held for now Due to prophylaxis: Eliquis GI prophylaxis: Not required Full code (This note was generated with voice recognition software and may contain errors including spelling, grammar, syntax and misrecognition of what was dictated, that are not fully corrected) Electronic Signatures: Neelakanda (more content not included)... Normal [facility] GLUCOSE-POCTon 07-11-2022 Glucose [Mass/Vol] 166 mg/dL High 74 - 99 [facility] Comment on above: Performed By: #### G MANJULA ####[address] [address] Glucose [Mass/Vol] 147 mg/dL High 74 - 99 [facility] Comment on above: Performed By: #### G MANJULA #### [address] [address] Glucose [Mass/Vol] 162 mg/dL High 74 - 99 [facility] Comment on above: Performed By: #### G MANJULA ####[address] [address] LACTATEon 07-11-2022 Lactate [Moles/Vol] 1.2 mmol/L Normal 0.4 - 2.0 [facility] Comment on above: Result Comment: Susan puncture immediately after or during the administration of Metamizole may lead to falsely low results. Testing should be performed immediately prior to Metamizole dosing. Performed By: #### L ACT ####[facility] [place] [address] Laboratory - Chemistry and C hemistry - challengeon 07-11-2022 Albumin BCP dye [Mass/Vol] 3.0 g/dL below low threshold 3.4 - 5.0 [facility] Work Phone: ALP [Catalytic activity/Vol] 88 U/L 33 - 136 [facility] Work Phone: ALT With P-5'-P [Catalytic activity/Vol] 200 U/L above high threshold 7 - 45 [facility] Work Phone: Comment on above: Patients treated wit h Sulfasalazine may generate falsely decreased results for ALT. AST With P-5'-P [Catalytic activity/Vol] 52 U/L above high threshold 9 - 39 [facility] Work Phone: Bilirubin [Mass/Vol] 1.3 mg/dL above high threshold 0.0 - 1.2 [facility] Work Phone: Calcium [Mass/Vol] 8.3 mg/dL below low threshold 8.6 - 10.3 [facility] Work Phone: Chloride [Moles/Vol] 102 mmol/L 98 - 107 [facility] Work Phone: CO2 [Moles/Vol] 22 mmol/L 21 - 32 [facility] Work Phone: Creatinine [Mass/Vol] 1.61 mg/dL above high threshold See Below [facility] Work Phone: Comment on above: Reference Range: 0.5 0 - 1.05 Glucose [Mass/Vol] 129 mg/dL above high threshold 74 - 99 [facility] Work Phone: Potassium [Moles/Vol] 3.7 mmol/L 3.5 - 5.3 [facility] Work Phone: Protein [Mass/Vol] 5.6 g/dL below low threshold 6.4 - 8.2 [facility] Work Phone: Sodium [Moles/Vol] 133 mmol/L below low threshold 136 - 145 [facility] Work Phone: Urea nitrogen [Mass/Vol] 47 mg/dL above high threshold 6 - 23 [facility] Work Phone: Laboratory - Hematology and Cell countson 07-11-2022 Hematocrit (Bld) [Volume fraction] 40.2 % See Below [facility] Work Phone: Comment on above: Reference Range: 36. 0 - 46.0 Hemoglobin (Bld) [Mass/Vol] 12.4 g/dL See Below [facility] Work Phone: Comment on above: Reference Range: 12. 0 - 16.0 Platelets (Bld) [#/Vol] 209 10*3/uL 150 - 450 [facility] Work Phone: RBC (Bld) [#/Vol] 4.58 {x10E12/L} See Below [facility] Work Phone: Comment on above: Reference Range: 4.0 0 - 5.20 Lactate, Levelon 07-11-2022 Lactate [Moles/Vol] 1.2 mmol/L 0.4 - 2.0 [facility] Work Phone: Comment on above: Venipuncture immedia tely after or during the administration of Metamizole may lead to falsely low results. Testing should be performed immediately prior to Metamizole dosing. No Panel Informationon 07-11 166 mg/dL above high threshold 74 - 99 [facility] Work Phone: 147 mg/dL above high threshold 74 - 99 [facility] Work Phone: 162 mg/dL above high threshold 74 - 99 [facility] Work Phone: 36 {mL/min/1.73m2} Abnormal >90 [facility] Work Phone: Comment on above: CALCULATIONS OF [place] MATED GFR ARE PERFORMED USING THE 2020 CKD-EPI STUDY REFIT EQUATION WITHOUT THE RACE VARIABLE FOR THE IDMS-TRACEABLE CREATININE METHODS.https://jasn.asnjournals.org/content// ASN.6119621398 13 mmol/L 10 - 20 [facility] Work Phone: 15.1 % above high threshold See Below [facility] Work Phone: Comment on above: Reference Range: 11. 5 - 14.5 30.9 g/dL below low threshold See Below [facility] Work Phone: Comment on above: Reference Range: 32. 0 - 36.0 88 fL 80 - 100 [facility] Work Phone: 9.9 {x10E9/L} 4.4 - 11.3 [facility] Work Phone: AMMONIAon 07-10-2022 Ammonia (P) [Moles/Vol] 25 umol/L Normal [facility] Comment on above: Result Comment: . REFERENCE VALUES DAY 1 to DAY 7 <110 DAY 8 to DAY 14 < 90 DAY 15 to ADULT 16-53 Performed By: #### A MM ####[address] [address] Ammonia, Plasmaon 07-10-2022 Ammonia (P) [Moles/Vol] 25 umol/L M [facility] I Work Phone: Comment on above: .REFERENCE VALUESDAY 1 to DAY 7 <110DAY 8 to DAY 14 < 90DAY 15 to ADULT 16-53 BASIC METABOLIC PANELon 06-13 ANION GAP Canceled [facility] Comment on above: Order Comment: TEST BASIC METABOLIC PANEL WAS CANCELLED, 07/10/2022 04:54 duplicate . Performed By: #### B NP2 #### [address] [address] BICARBONATE Canceled [facility] Comment on above: Order Comment: TEST BASIC METABOLIC PANEL WAS CANCELLED, 07/10/2022 04:54 duplicate . Performed By: #### B NP2 #### [address] [address] CALCIUM Canceled [facility] Comment on above: Order Comment: TEST BASIC METABOLIC PANEL WAS CANCELLED, 07/10/2022 04:54 duplicate . Performed By: #### B NP2 #### [address] [address] CHLORIDE Canceled [facility] Comment on above: Order Comment: TEST BASIC METABOLIC PANEL WAS CANCELLED, 07/10/2022 04:54 duplicate . Performed By: #### B NP2 #### [address] [address] CREATININE Canceled [facility] Comment on above: Order Comment: TEST BASIC METABOLIC PANEL WAS CANCELLED, 07/10/2022 04:54 duplicate . Performed By: #### B NP2 #### [address] [address] eGFR FEMALE Canceled [facility] Comment on above: Order Comment: TEST BASIC METABOLIC PANEL WAS CANCELLED, 07/10/2022 04:54 duplicate . Result Comment: CALC ULATIONS OF ESTIMATED GFR ARE PERFORMED USING THE 2020 CKD-EPI STUDY REFIT EQUATION WITHOUT THE RACE VARIABLE FOR THE IDMS-TRACEABLE CREATININE METHODS. https://jasn.asnjournals.org/content/earlyASN 851504 Performed By: #### B NP2 #### [address] [address] eGFR MALE Canceled [facility] Comment on above: Order Comment: TEST BASIC METABOLIC PANEL WAS CANCELLED, 07/10/2022 04:54 duplicate . Result Comment: CALC ULATIONS OF ESTIMATED GFR ARE PERFORMED USING THE 2020 CKD-EPI STUDY REFIT EQUATION WITHOUT THE RACE VARIABLE FOR THE IDMS-TRACEABLE CREATININE METHODS. https://jasn.asnjournals.org/content/earlyASN 946693 Performed By: #### B NP2 #### [address] [address] GFR- AM. Canceled [facility] Comment on above: Order Comment: TEST BASIC METABOLIC PANEL WAS CANCELLED, 07/10/2022 04:54 duplicate . Result Comment: CALC ULATIONS OF ESTIMATED GFR ARE PERFORMED USING THE MDRD STUDY EQUATION FOR THE IDMS-TRACEABLE CREATININE METHODS. CLIN CHEM 2007;53:766-72 Performed By: #### B NP2 #### [address] [address] GFR-NON AM. Canceled [facility] Comment on above: Order Comment: TEST BASIC METABOLIC PANEL WAS CANCELLED, 07/10/2022 04:54 duplicate . Performed By: #### B NP2 #### [address] [address] GLUCOSE Canceled [facility] Comment on above: Order Comment: TEST BASIC METABOLIC PANEL WAS CANCELLED, 07/10/2022 04:54 duplicate . Performed By: #### B NP2 #### [address] [address] POTASSIUM Canceled [facility] Comment on above: Order Comment: TEST BASIC METABOLIC PANEL WAS CANCELLED, 07/10/2022 04:54 duplicate . Performed By: #### B NP2 #### [place] [id number] SODIUM Canceled [facility] Comment on above: Order Comment: TEST BASIC METABOLIC PANEL WAS CANCELLED, 07/10/2022 04:54 duplicate . Performed By: #### B NP2 #### [place] [id number] UREA NITROGEN Canceled [facility] Comment on above: Order Comment: TEST BASIC METABOLIC PANEL WAS CANCELLED, 07/10/2022 04:54 duplicate . Performed By: #### B NP2 #### [place] [id number] C Reactive Protein, Serumon 07-10-2022 CRP [Mass/Vol] 4.69 mg/dL Abnormal [facility] Work Phone: Comment on above: REF VALUE< 1.00 C-REACTIVE PROTEINon 022 C-REACTIVE PROTEIN 4.69 mg/dL Abnormal [facility] Comment on above: Result Comment: REF VALUE < 1.00 Performed By: #### C RP ####[place] [id number] CBCon 07-10-2022 Erythrocyte distribution width (RBC) [Ratio] 15.1 % High 11.5 - 14.5 [facility] Comment on above: Performed By: #### B NP2 #### [address] [address] Hematocrit (Bld) [Volume fraction] 41.2 % Normal 36.0 - 46.0 [facility] Comment on above: Performed By: #### B NP2 #### [place] [id number] Hemoglobin (Bld) [Mass/Vol] 12.8 g/dL Normal 12.0 - 16.0 [facility] Comment on above: Performed By: #### B NP2 #### [address] [address] MCHC (RBC) [Mass/Vol] 31.2 g/dL Low 32.0 - 36.0 [facility] Comment on above: Performed By: #### B NP2 #### [address] [address] MCV (RBC) [Entitic vol] 88 fL Normal 80 - 100 [facility] Comment on above: Performed By: #### B NP2 #### [address] [address] Platelets (Bld) [#/Vol] 221 10*3/uL Normal 150 - 450 [facility] Comment on above: Performed By: #### B NP2 #### [place] [id number] RBC 4.68 x10E12/L Normal 4.00 - 5.20 [facility] Comment on above: Performed By: #### B NP2 #### [address] [address] WBC (Bld) [#/Vol] 11.4 10*3/uL High 4.4 - 11.3 [facility] Comment on above: Performed By: #### B NP2 #### [place] [id number] COMPREHENSIVE PANELon 2021 Creatinine [Mass/Vol] 2.05 mg/dL High 0.50 - 1.05 [facility] Comment on above: Result Comment: repe ated and verified Performed By: #### C MP ####[address] [address] GFR/1.73 sq M.predicted among non-blacks MDRD (S/P/Bld) [Vol rate/Area] 27 mL/min/{1.73_m2} Abnormal >90 [facility] Comment on above: Result Comment: CALC ULATIONS OF ESTIMATED GFR ARE PERFORMED USING THE 2020 CKD-EPI STUDY REFIT EQUATION WITHOUT THE RACE VARIABLE FOR THE IDMS-TRACEABLE CREATININE METHODS. https://jasn.asnjournals.org/content//ASN.2020 [email or web address] Performed By: #### C MP ####[address] [address] Albumin [Mass/Vol] 3.3 g/dL Low 3.4 - 5.0 [facility] Comment on above: Performed By: #### C MP ####[address] [address] ALP [Catalytic activity/Vol] 105 U/L Normal 33 - 136 [facility] Comment on above: Performed By: #### C MP ####[address] [address] ALT [Catalytic activity/Vol] 270 U/L High 7 - 45 [facility] Comment on above: Result Comment: Radha ents treated with Sulfasalazine may generate falsely decreased results for ALT. Performed By: #### C MP ####[address] [address] Anion gap [Moles/Vol] 16 mmol/L Normal 10 - 20 [facility] Comment on above: Performed By: #### C MP ####[address] [address] AST [Catalytic activity/Vol] 82 U/L High 9 - 39 [facility] Comment on above: Performed By: #### C MP ####[address] [address] Bilirubin [Mass/Vol] 1.2 mg/dL Normal 0.0 - 1.2 [facility] Comment on above: Performed By: #### C MP ####[address] [address] Calcium [Mass/Vol] 8.7 mg/dL Normal 8.6 - 10.3 [facility] Comment on above: Performed By: #### C MP ####[address] [address] Chloride [Moles/Vol] 98 mmol/L Normal 98 - 107 [facility] Comment on above: Performed By: #### C MP ####[address] [address] Glucose [Mass/Vol] 250 mg/dL High 74 - 99 [facility] Comment on above: Performed By: #### C MP ####[address] [address] HCO3 (Bld) [Moles/Vol] 21 mmol/L Normal 21 - 32 [facility] Comment on above: Performed By: #### C MP ####[address] [address] Potassium [Moles/Vol] 4.4 mmol/L Normal 3.5 - 5.3 [facility] Comment on above: Performed By: #### C MP ####[address] [address] Protein [Mass/Vol] 6.0 g/dL Low 6.4 - 8.2 [facility] Comment on above: Performed By: #### C MP ####[address] [address] Sodium [Moles/Vol] 131 mmol/L Low 136 - 145 [facility] Comment on above: Performed By: #### C MP ####[address] [address] Urea nitrogen [Mass/Vol] 60 mg/dL High 6 - 23 [facility] Comment on above: Performed By: #### C MP ####[address] [address] [address] Abdomen and Pelvis withou t Contraston 07-10-2022 CT Abdomen and Pelvis WO contrast Normal [facility] I Work Phone: Clinical Event Note-ED Post Discharge Result Follow Up: Compon 07-10-2022 Clinical Event Note-ED Post Discharge Result Follow Up: Comp Clinical Event: Clinical Event Note: TopicED Post Discharge Result Follow Up: Complete : PCR: COVID-19 Details Patient was admitted to [facility] ICU [facility] for inpatient treatment. Inpatient team is aware of patient's COVID status. No further follow up needed. If there are any other questions for the ED Post-Discharge Culture Follow Up Team, please contact [phone]. . Cayla Hurtado PharmD. PGY1 [facility]ident [facility] Electronic Signatures: Marley Hunt (PharmD) (Signed 12-Jul-2022 08:31) Co-Signer: Clinical Event Note Cayla Hurtado ([facility]) (Signed 10-Jul-2022 10:53) Authored: Clinical Event Note Last Updated: 12-Jul-2022 08:31 by Marley Hunt (PharmD) [facility] Consult-Critical Careon 10-2 Consult-Critical Care Service: Service: Critical Care Consult: Consult requested by (Attending Name): Nasir Mendez Reason: COVID-19 History of Present Illness: HPI: CAMILLE DAWKINS is a 62 year old Female She presented to the emergency room secondary to an elevated heart rate. She states that that is why she came to the emergency room. She states that she has a pulse ox monitor at home and she was measuring her heart rate and it was running high and this is not abnormal for her and so she presented to the emergency room She states that she has recently been in the emergency room a couple of times and even in the hospital at [place] and has had these issues and nothing has really helped and she has continued to not feel well She was also found to be positive for COVID-19 pneumonia she is not sure how she got this at all. She has a past medical history of hypertension, diabetes, depression, migraine, atrial fibrillation, and obesity She also has an echo in the past that shows an EF of 30%, has obstructive sleep apnea Her past surgical history includes a surgery on her foot She has a family history of emphysema Her social history includes that she lives at home with her fianc/ This a.m. she is sitting fairly comfortably in the chair She continues to have tachycardia She states that for the past couple of weeks and even up to a month she has not been eating or drinking well She states that she has no appetite. She does have swelling at times A full 10 point review of systems was obtained and is negative except HPI as above Review Family/Social History and ROS: Social History: Smoking Status: never smoker (1) Allergies: penicillins: Rash, Hives/Urticaria Levaquin: Unknown Objective: Objective Information: T PRBPMAPSpO2 [id number]% Date/Time07/10 11: 11: 11: 11: 7: 11:45 Range(36C - 36.4C ) (80 - 141 ) (18 - 25 ) (101 - 138 )/ (47 - 95 ) (79 - 998 ) (93% - 99% ) Physical Exam by System: Constitutional: Awake, alert, oriented x3 Eyes: Extraocular muscles intact ENMT: Moist mucous membranes Head/Neck: Normocephalic, atraumatic Respiratory/Thorax: Bilateral equal breath sounds diminished in bases Cardiovascular: Irregularly irregular with positive tachycardia Gastrointestinal: Soft, nontender, nondistended, centrally obese Musculoskeletal: Resting comfortably in bedside chair Extremities: Positive bilateral lower extremity edema Neurological: Awake, alert, oriented Psychological: Cooperative Skin: Warm and dry Medications: Medications: Continuous Medications ------- 1. dilTIAZem (CARDIZEM) 125 mg/ NaCL 0.7% 125 mL Premix Infusion: 5 mg/hr IntraVenous 2. Sodium Chloride 0.9% Infusion: 1000 mL IntraVenous Scheduled Medications ------- 1. Apixaban: 5 mg Oral Every 12 Hours 2. Budesonide 0.5 mg/ 2 mL Nebulizer Soln: 2 mL Inhalation Every 12 Hours 3. Cefepime IV Piggy Back: 2 gram(s) IntraVenous Piggyback Every 12 Hours 4. Doxycycline IV Piggy Back: 100 mg IntraVenous Piggyback Every 12 Hours 5. Insulin Glargine (Lantus) Injectable: 15 unit(s) SubCutaneous Every 24 Hours 6. Insulin Lispro (HUMALOG) Carb/ISF Calculator: 1 dose(s) SubCutaneous Before Meals & Bedtime 7. traZODone: 100 mg Oral At Bedtime PRN Medications ------- 1. Acetaminophen: 650 mg Oral Every 4 Hours 2. guaiFENesin Extended Release: 600 mg Oral Every 12 Hours 3. Ipratropium 500 microgram/ 2.5 mL Neb Soln: 2.5 mL Inhalation Every 6 Hours 4. Ondansetron Injectable: 4 mg IntraVenous Push Every 4 Hours 5. Sodium Chloride 0.9% Injectable Flush: 10 mL IntraVenous Flush Every 8 Hours and as Needed 6. Sore Throat Lozenge: 1 lozenge(s) Oral Every 2 Hours Conditional Medication Orders ------- 1. Perflutren Lipid Microsphere (Activated) 1.3 mL / NaCL 0.9% T.V. 10 mL Injectable: 0.5 mL IntraVenous Push Once Recent Lab Results: Results: I have reviewed these laboratory results: Complete Blood Count [Drawn 10-Jul-2022 04:54:00], Comprehensive Metabolic Panel [Drawn 10-Jul-2022 04:54:00], Comprehensive Metabolic Panel [Drawn 09-Jul-2022 15:57:00], C Reactive Protein, Serum [Drawn 10-Jul-2022 04:54:00], C Reactive Protein, Serum [Drawn 09-Jul-2022 15:57:00], Ammonia, Plasma [Drawn 10-Jul-2022 04:54:00], Thyroid Stimulating Hormone, Serum [Drawn 10-Jul-2022 04:54:00], Lactate, Level [Drawn 09-Jul-2022 22:26:00], Lactate, Level [Drawn 09-Jul-2022 19:52:00], Lactate, Level [Drawn 09-Jul-2022 15:57:00], Troponin I, High Sensitivity [Drawn 09-Jul-2022 19:52:00], Troponin I, High Sensitivity [Drawn 09-Jul-2022 15:57:00], Coronavirus 2019 by PCR [Drawn 09-Jul-2022 19:46:00], Complete Blood Count + Differential [Drawn 09-Jul-2022 15:57:00], Brain Natriuretic Peptide [Drawn - (more content not included)... [facility] Daily Progress Note-General Internal Medicineon 07-10-2022 Daily Progress Note-General Internal Medicine Service: General Internal Medicine Subjective Data: CAMILLE DAWKINS is a 62 year old Female who is Hospital Day # 2. Overnight Events: Acute events in the past 24 hours include Additional Information: Patient seen and examined at the bedside. She was lying sitting in the chair she looks comfortable. She says she is unable to eat because of dry mouth. Objective Data: Objective Information: T PRBPMAPSpO2 [id number]% Date/Time07/10 11: 11: 11: 11: 7: 11:45 Range(36C - 36.4C ) (80 - 141 ) (18 - 25 ) (101 - 138 )/ (47 - 95 ) (79 - 998 ) (93% - 99% ) Pain reported at 07/10 0:00: 0 = None Physical Exam by System: Constitutional: Obese,Well developed, awake/alert/oriented x3, no distress, alert and cooperative Eyes: PERRL, EOMI, clear sclera Head/Neck: Neck supple, no apparent injury, thyroid without mass or tenderness, No JVD, trachea midline, no bruits Respiratory/Thorax: Bilateral basal rhonchi heard Cardiovascular: Tachycardia, A. fib, no murmurs, Elevated JVD Gastrointestinal: Nondistended, soft, non-tender, no rebound tenderness or guarding, no masses palpable, no organomegaly, +BS, no bruits Extremities: Bilateral pitting pedal edema of both legs and feet calf Psychological: Appropriate mood and behavior Skin: Warm and dry, no lesions, no rashes Medication: Medications: Continuous Medications ------- 1. dilTIAZem (CARDIZEM) 125 mg/ NaCL 0.7% 125 mL Premix Infusion: 5 mg/hr IntraVenous Scheduled Medications ------- 1. Apixaban: 5 mg Oral Every 12 Hours 2. Budesonide 0.5 mg/ 2 mL Nebulizer Soln: 2 mL Inhalation Every 12 Hours 3. Cefepime 2 gram IVPB/ Premixed Soln 100 mL: 100 mL IntraVenous Piggyback Every 12 Hours 4. Insulin Glargine (Lantus) Injectable: 15 unit(s) SubCutaneous Every 24 Hours 5. Insulin Lispro (HUMALOG) Carb/ISF Calculator: 1 dose(s) SubCutaneous Before Meals & Bedtime 6. traZODone: 100 mg Oral At Bedtime PRN Medications ------- 1. Acetaminophen: 650 mg Oral Every 4 Hours 2. guaiFENesin Extended Release: 600 mg Oral Every 12 Hours 3. Ipratropium 500 microgram/ 2.5 mL Neb Soln: 2.5 mL Inhalation Every 6 Hours 4. Ondansetron Injectable: 4 mg IntraVenous Push Every 4 Hours 5. Sodium Chloride 0.9% Injectable Flush: 10 mL IntraVenous Flush Every 8 Hours and as Needed 6. Sore Throat Lozenge: 1 lozenge(s) Oral Every 2 Hours Conditional Medication Orders ------- 1. Perflutren Lipid Microsphere (Activated) 1.3 mL / NaCL 0.9% T.V. 10 mL Injectable: 0.5 mL IntraVenous Push Once Recent Lab Results: Results: CBC: 07/10/2022 04:54 \ Hgb / \ 12.8 / WBC Plt 11.4 H 221 / Hct \ / 41.2 \ RBC: 4.68 MCV: 88 Neutrophil %: 74.1 BMP: 07/10/2022 04:54 NA+ Cl- BUN / Canceled Canceled Canceled / ------- Glucose -- Canceled K+ HCO3- Creat \ Canceled Canceled Canceled \ Calcium : Canceled Anion Gap : Canceled CMP: 07/10/2022 04:54 NA+ Cl- BUN / 131 L 98 60 H / ------- Glucose -- 250 H K+ HCO3- Creat \ 4.4 21 2.05 H \ \ T Bili / \ 1.2 / AST x ---- x ALT 82 Hx ---- x 270 H / Alk P \ / 105 \ Calcium : 8.7 Anion Gap : 16 Albumin : 3.3 L T Protein : 6.0 L Coagulation: null PT / / -------< INR < PTT\ \ Radiology Results: Results: Impression: Possible small infiltrate inferior to right minor fissure, perhaps in the right middle lobe. Xray Chest 1 View [Jul 09 2022 4:32PM] Assessment and Plan: Comorbidities: ComorbidityOther Code Status: Code StatusFull Code Assessment: 62-year-old female with history of hypertension, diabetes mellitus type 2, obesity, A. fib, depression found to have COVID-19 positive test, A. fib RVR, healthcare associated pneumonia, sepsis with DIVINA, lactic acidosis and leukocytosis, hyperglycemia, metabolic encephalopathy, hyperkalemia, hyponatremia, transaminitis, mild rhabdomyolysis, elevated BNP to evaluate congestive heart failure, troponin elevation likely from sepsis and DIVINA with pneumonia Assessment Acute on chronic congestive heart failure exacerabation Afib with RVR COVID Infection Community acquired Pneumonia Volume Overload DIVINA , Improving Hyponatremia T2DM JAMAAL Plan Patient on Cardizem drip Continue Eliquis 5 Mg p.o. twice daily Continue breathing treatments Continue IV cefepime Continue to follow blood cultures and sputum cultures Patient is COVID-19 positive but does not require any oxygen Fingerstick glucose ACH S Insulin per sliding scale Lantus 15 units 2D echo ordered pending Creatinine is improving White count is trending down Lactate has (more content not included)... 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 Sw reviewed chart and then called into patients room as patient is Covid Positive. Introduced self and reviewed with her the address and also her insurance. She reports no issues with getting her medications and does not use any community agencies in her home. She states that she is independent at home. Reviewed with her as she has had a few ER visits here recently and she said that she is aware of that and she just wants to get this figured out. She said that she does not have any needs . Anticipate patient to return home when ready CT/Sw to assist with any d/c planning. Emi SOLITARIO,ALDO 07/12/2022 @ 142pm Care Transitions/SW Note: Pt reviewed during Care Rounds today and is not ready for discharge. Call placed to pt's room to review her discharge plan. Pt confirms her desires to return home at discharge. She is up, independently, in her room and is not on oxygen. She declines a need for C services. Current RN [facility] is - approp for return home. No further needs identified. Care Transitions will continue to follow as needed. HAILEY Bravo 07/13/2022 1340 Care Transitions - Social Work: Pt reviewed in care rounds mtg at midday today. Pt not yet medically appropriate for d/c; awaits clearance from nephrology and cardiology. - 1630: SW phoned into Pt's room to review d/c plan. Pt confirmed current plan to return home upon d/c with no CT needs foreseen. However, Pt notes that Pt may have needs closer to d/c. Pt also asked about applying for disability in [facility]. SW encouraged Pt to f/u with [facility] DJFS. SW assured Pt that CT will continue to follow and assist should any new d/c needs arise. ALDO Easton 07/14/2022 1125 Care Transitions - Social Work: Pt reviewed in care rounds mtg at midday today. Pt not yet medically appropriate for d/c; will likely require another 24 hours in the hospital. Pt's current plan is to return home upon d/c with no CT needs foreseen. CT to follow should any new d/c needs arise. ALDO Easton 07/15/2022 1130 Care Transitions - Social Work: Pt reviewed in care rounds mtg at midday today. Pt not yet medically appropriate for d/c; may be ready tomorrow. Pt is still borderline tachycardic. Pt's current plan is to return home upon d/c with no CT needs foreseen. CT to follow should any new d/c needs arise. ALDO Easton Assessment: Discharge Planning Assessment [id number] [phone](1) Lives Withspouse; parent(s)(1) Living Arrangementshouse(1) Stated Reason for Admissionhad a feeling I was in afib(1) Arrived Fromemergency department (1) Resource/Environmental Concernsnone(1) [facility] Services Anticipated at Transitionnone(1) Electronic Signatures: Radha Willson ([employer]ER-S) (Signed 12-Jul-2022 13:44) Authored: Discharge Planning Eim Harper (ALDO) (Signed 10-Jul-2022 15:34) Authored: Discharge Planning, Assessment Allie Mejia (ALDO) (Signed 16-Jul-2022 09:12) Authored: Discharge Planning Last Updated: 16-Jul-2022 09:12 by Allie Mejia (ALDO) References: 1. Data Referenced From Patient Profile - Adult v2 09-Jul-2022 21:38 [facility] GLUCOSE-POCTon 07-10-2022 Glucose [Mass/Vol] 116 mg/dL High 74 - 99 [facility] Comment on above: Performed By: #### B NP2 #### [address] [address] Glucose [Mass/Vol] 112 mg/dL High 74 - 99 [facility] Comment on above: Performed By: #### G MANJUAL ####[address] [address] Glucose [Mass/Vol] 173 mg/dL High 74 - 99 [facility] Comment on above: Performed By: #### G MANJULA #### [address] [address] Glucose [Mass/Vol] 231 mg/dL High 74 - [facility] Comment on above: Performed By: #### B NP2 #### [address] [address] Glucose [Mass/Vol] 283 mg/dL High 74 - [facility] Comment on above: Performed By: #### G MANJULA #### [address] [address] LACTATEon 07-10-2022 LACTATE Canceled [facility] Comment on above: Order Comment: TEST LACTATE WAS CANCELLED, 07/10/2022 03:54 Result Comment: Susan puncture immediately after or during the administration of Metamizole may lead to falsely low results. Testing should be performed immediately prior to Metamizole dosing. Performed By: #### G MANJULA #### [address] [address] Lactate [Moles/Vol] 2.2 mmol/L High 0.4 - 2.0 [facility] Comment on above: Result Comment: Susan puncture immediately after or during the administration of Metamizole may lead to falsely low results. Testing should be performed immediately prior to Metamizole dosing. Performed By: #### L ACT #### [address] [address] Laboratory - Chemistry and C hemistry - challengeon 07-10-2022 Albumin BCP dye [Mass/Vol] 3.3 g/dL below low threshold 3.4 - 5.0 [facility] Work Phone: ALP [Catalytic activity/Vol] 105 U/L 33 - 136 [facility] I Work Phone: ALT With P-5'-P [Catalytic activity/Vol] 270 U/L above high threshold 7 - 45 [facility] Work Phone: Comment on above: Patients treated wit h Sulfasalazine may generate falsely decreased results for ALT. AST With P-5'-P [Catalytic activity/Vol] 82 U/L above high threshold 9 - 39 [facility] I Work Phone: Bilirubin [Mass/Vol] 1.2 mg/dL 0.0 - 1.2 [facility] I Work Phone: Calcium [Mass/Vol] 8.7 mg/dL 8.6 - 10.3 [facility] I Work Phone: Chloride [Moles/Vol] 98 mmol/L 98 - 107 [facility] Work Phone: CO2 [Moles/Vol] 21 mmol/L 21 - 32 [facility] Work Phone: Creatinine [Mass/Vol] 2.05 mg/dL above high threshold See Below [facility] Work Phone: Comment on above: Reference Range: 0.5 0 - 1.05repeated and verified Glucose [Mass/Vol] 250 mg/dL above high threshold 74 - 99 [facility] Work Phone: Potassium [Moles/Vol] 4.4 mmol/L 3.5 - 5.3 [facility] I Work Phone: Protein [Mass/Vol] 6.0 g/dL below low threshold 6.4 - 8.2 [facility] Work Phone: Sodium [Moles/Vol] 131 mmol/L below low threshold 136 - 145 [facility] Work Phone: Urea nitrogen [Mass/Vol] 60 mg/dL above high threshold 6 - 23 [facility] I Work Phone: Laboratory - Hematology and Cell countson 07-10-2022 Hematocrit (Bld) [Volume fraction] 41.2 % See Below [facility] Work Phone: Comment on above: Reference Range: 36. 0 - 46.0 Hemoglobin (Bld) [Mass/Vol] 12.8 g/dL See Below [facility] Work Phone: Comment on above: Reference Range: 12. 0 - 16.0 Platelets (Bld) [#/Vol] 221 10*3/uL 150 - 450 [facility] Work Phone: RBC (Bld) [#/Vol] 4.68 {x10E12/L} See Below [facility] Work Phone: Comment on above: Reference Range: 4.0 0 - 5.20 No Panel Informationon 07-10 116 mg/dL above high threshold 74 - 99 [facility] Work Phone: 112 mg/dL above high threshold 74 - 99 [facility] Work Phone: 173 mg/dL above high threshold 74 - 99 [facility] Work Phone: 231 mg/dL above high threshold 74 - 99 [facility] Work Phone: 27 {mL/min/1.73m2} Abnormal >90 [facility] I Work Phone: Comment on above: CALCULATIONS OF LASHAWN MATED GFR ARE PERFORMED USING THE 2020 CKD-EPI STUDY REFIT EQUATION WITHOUT THE RACE VARIABLE FOR THE IDMS-TRACEABLE CREATININE METHODS.https://jasn.asnjournals.org/content/early/ ASN.8686400542 16 mmol/L 10 - 20 [facility] I Work Phone: 15.1 % above high threshold See Below [facility] Work Phone: Comment on above: Reference Range: 11. 5 - 14.5 31.2 g/dL below low threshold See Below [facility] Work Phone: Comment on above: Reference Range: 32. 0 - 36.0 88 fL 80 - 100 [facility] I Work Phone: 11.4 {x10E9/L} above high threshold 4.4 - 11.3 [facility] I Work Phone: PROCALCITONINon 07-10-2022 PROCALCITONIN 0.12 ng/mL Abnormal <=0.07 [facility] Comment on above: Result Comment: Proc alcitonin (PCT) results measured serially can aid in decision-making for antibiotic discontinuation in patients with suspected or confirmed sepsis in conjunction with additional clinical information. Antibiotic discontinuation may be considered with a change in PCT of >80% from the peak result or when PCT falls below 0.50 ng/mL. . Procalcitonin results should not be used in isolation but should be interpreted in conjunction with additional clinical and laboratory findings. Procalcitonin results should not be used to guide the initiation of antibiotic therapy. . Falsely low PCT values in the presence of bacterial infection may occur in early infection, with atypical pathogens, localized infections, and subacute infectious endocarditis. . Falsely elevated results outside of severe bacterial infection/sepsis may be seen in patients with renal failure or insufficiency, severe trauma or zafar, recent major abdominal/cardiac surgery, acute multi-organ failure, rarely in patients with medullary thyroid carcinoma and rare neuroendocrine tumors, and non-specific interfering antibodies (heterophile antibodies, rheumatoid factor, human anti-mouse antibodies (HAMA), etc). . Performance of the PCT test in pediatric patients (<18yo), women, immunocompromised patients, and patients on immunomodulatory medications has not been evaluated. Performed By: #### P CALC ####[id number] [place] [address] TSH - Thyroid Stimulating Ho Adebayo molinaon 07-10-2022 TSH Qn 2.31 m[IU]/L Normal 0.44 - 3.98 [facility] I Work Phone: Comment on above: Reference Range: 0.4 4 - 3.98 TSH testing is performed using different testing methodology at [facility] than at other [facility]. Direct result comparisons should only be made within the same method. Result Comment: TSH testing is performed using different testing methodology at [facility] than at other [facility]. Direct result comparisons should only be made within the same method. Performed By: #### T SH2 ####[address] [place] [address] Admission Risk Screen - Adul ton 07-09-2022 Admission Risk Screen - Adult Allergies: Allergies: penicillins: Rash, Hives/Urticaria Levaquin: Unknown Patient Verification: New W ID Band Applied in my Departmentno Type of ID Patient is WearingW wristband, but not applied here Patient Transferred from Other Facility ([facility], [facility],etc)no Patient Identity Verified Bypatient ID Band FULL Name, include Middle, spelling matches patient's ID used for verificationyes ID Band Matches Patient ID used for Verficationyes ID Band MRN Matches EMR MRNyes Visitor Restriction: Coronavirus Visitor Restriction: Reasonable restrictions to in-person visitors will be observed due to current coronavirus pandemic. Travel History: COVID-19 Screening Completedno exposure or symptoms(1) Travel or Exposure Past 30 DaysNO travel to International locations in the past 30 days Ebola AlertFor Ebola-like Symptoms: Isolate Patient and Notify Provider/Gas Tester For Contact: Notify Provider/Gas Tester Advance Directive: Advance Directive/DNRno Advance Directive Information Givenpatient/family declined Patel Fall Screen: History of falling (immediate or previous)yes (25) Secondary Diagnosisyes (15) Intravenous Therapy/ Heparin/Saline Lockyes (20) Gait/Transferringweak (10) Ambulatory Aidsnone/bedrest/nurse assist (0) Mental Statusoriented to own ability (0) Score: Low risk (<25). Moderate risk (25-44). High risk (>44).70 Patel InterventionsHIGH INTERVENTIONS *Low and Moderate Interventions Plus: * supervised toileting at all times Family Violence Screen: Are you or have you been threatened or abused physically, emotionally, or sexually by anyoneno Do you feel UNSAFE going back to the place where you are livingno Clinical assessment: Are there any apparent signs of injuries/behaviors that could be related to abuse/neglectno Social Service Consult for abuse/neglect needed this visitno Functional Screen: Functional Screen: In the recent/past 2-4 weeks, patient or family have noticedno issues that require a speech/language consult at this time AM-PAC- Basic Mobility/Daily Activity: Patient baseline bedboundno Turning from your back to your side while in a flat bed without using bedrailsa little Moving from lying on your back to sitting on the side of a flat bed without using bedrailsa little Moving to and from bed to chair (including a wheelchair)a little Standing up from a chair using your arms (e.g. wheelchair or bedside chair)a little To walk in hospital rooma little Climbing 3-5 steps with railinga little Basic Mobility - Total Score18 Learning Assessment (Patient): Patient is Able to be Assessed for Learningyes Factors Influencing Readiness to Learnfatigue Factors that Impact Ability to Learnnone Devices/Methods Used to Communicatenone Learning Preferenceswritten material; verbal instruction Cultural Considerationsnone Developmental Considerationsnone Alevism Considerationsnone Learning Assessment (Other Learner): Other learner availableno Depression Screen: During the past month, have you often been bothered by feeling down, depressed or hopelessno During the past month, have you often had little interest or pleasure in doing thingsno Have you had any thoughts of harming anyone elseno (1) [place] Suicide: Risk Screen Not Applicable/Able to Answerable to be screened In the Past Month: Have you wished you were or could go to sleep and not wake upno(1) In the Past Month: Have you had any actual thoughts of killing yourself no(1) Lifetime: Have you ever done, started to do, or prepared to do anything to end your lifeno [place] Suicide Risknegative Adult Nutrition Screen: Have you recently lost weight without tryingno Have you been eating poorly because of a decreased appetiteyes Malnutrition Screening Tool Score1 Malnutrition Screening Tool RiskMST = 0 or 1 Not at risk. Eating well with little or no weight loss Nutrition Consult needed this visitno Can Patient Participate in Room Serviceyes Patient requires Paper Dishes/Plastic Utensilsyes (sends order) Pain Screen: Pain Scalenumerical 0-10 Pain Scale Educationteaching provided Current Pain Level0 = None Acceptable Pain Level3 = Mild Expression of Pain (nonverbal)none Chronic Painno Spiritual Screen: Are there any cultural, spiritual, mandaeism practices/values/needs that are important for us to knowno CAGE: Is this an [place] [place]/ [place]): no Vaccinations: Vaccination - Influenza Vaccination Screen: Is it flu season (between and December 10)Yes Screening for identified contraindications to influenza vaccination patient/caregiver refusal Vaccination - Pneumonia Vaccination Screen: Patient has received a previous pneumonia vaccine:no/unknown... Immunocompetent persons with underlying chronic conditions o (more content not included)... [facility] BLOOD CULTURE, BACTERIALon 1 BLOOD CULTURE, BACTERIAL PATIENT: CAMILLE DAWKINS LOCATION: [facility]#: [id number] : 62 AGE: SEX: F ORDERED BY: KIA RASHID SOURCE: Blood COLLECTED: 07/09/22 18:39 ANTIBIOTICS AT [facility].: RECEIVED : 07/09/22 23:25 SITE: PERIPHERAL R E S U L T S BLOOD CULTURE, BACTERIAL FINAL 07/13/22 23:42 No Growth at 1 days No Growth at 2 days No Growth at 3 days NO GROWTH at 4 days - FINAL REPORT [facility] Comment on above: Performed By: #### D IMEX #### [place] [address] BLOOD CULTURE, BACTERIAL PATIENT: CAMILLE DAWKINS LOCATION: [facility]#: [id number] : 62 AGE: SEX: F ORDERED BY: KIA RASHID SOURCE: Blood COLLECTED: 07/09/22 18:39 ANTIBIOTICS AT [facility].: RECEIVED : 07/09/22 23:25 SITE: PERIPHERAL R E S U L T S BLOOD CULTURE, BACTERIAL FINAL 07/13/22 23:42 No Growth at 1 days No Growth at 2 days No Growth at 3 days NO GROWTH at 4 days - FINAL REPORT [facility] Comment on above: Performed By: #### D IMEX #### [address] [address] BNPon 07-09-2022 Natriuretic peptide B (Bld) [Mass/Vol] 2180 pg/mL High 0 - 99 [facility] Comment on above: Result Comment: . <1 00 pg/mL - Heart failure unlikely 100-299 pg/mL - Intermediate probability of acute heart . failure exacerbation. Correlate with clinical . context and patient history. >=300 pg/mL - Heart Failure likely. Correlate with clinical . context and patient history. BNP testing is performed using different testing methodology at [facility] than at other [facility]. Direct result comparisons should only be made within the same method. Performed By: #### B NP2 #### [place] [id number] C Reactive Protein, Serumon 07-09-2022 CRP [Mass/Vol] 6.12 mg/dL Abnormal [facility] n [facility]-Too [facility]well 6 [facility] Work Phone: Comment on above: REF VALUE< 1.00 C-REACTIVE PROTEINon 022 C-REACTIVE PROTEIN 6.12 mg/dL Abnormal [facility] Comment on above: Result Comment: REF VALUE < 1.00 Performed By: #### C RP #### [address] [address] CBC AND DIFFERENTIALon 07-09 Basophils (Bld) [#/Vol] 0.10 10*3/uL Normal 0.00 - 0.10 [facility] Comment on above: Performed By: #### C BCDF ####[address] [address] Basophils/100 WBC (Bld) 0.8 % Normal 0.0 - 2.0 [facility] Comment on above: Performed By: #### C BCDF ####[address] [place] [address] Eosinophils (Bld) [#/Vol] 0.00 10*3/uL Normal 0.00 - 0.70 [facility] Comment on above: Performed By: #### C BCDF ####[address] [address] Eosinophils/100 WBC (Bld) 0.0 % Normal 0.0 - 6.0 [facility] Comment on above: Performed By: #### C BCDF ####[address] [address] Erythrocyte distribution width (RBC) [Ratio] 15.1 % High 11.5 - 14.5 [facility] Comment on above: Performed By: #### C BCDF ####[address] [address] Hematocrit (Bld) [Volume fraction] 47.1 % High 36.0 - 46.0 [facility] Comment on above: Performed By: #### C BCDF ####[address] [address] Hemoglobin (Bld) [Mass/Vol] 14.4 g/dL Normal 12.0 - 16.0 [facility] Comment on above: Performed By: #### C BCDF ####[address] [address] Lymphocytes (Bld) [#/Vol] 1.90 10*3/uL Normal 1.20 - 4.80 [facility] Comment on above: Performed By: #### C BCDF ####[address] [address] Lymphocytes/100 WBC (Bld) 15.8 % Normal 13.0 - 44.0 [facility] Comment on above: Performed By: #### C BCDF ####[address] [address] MCHC (RBC) [Mass/Vol] 30.5 g/dL Low 32.0 - 36.0 [facility] Comment on above: Performed By: #### C BCDF ####[address] [address] MCV (RBC) [Entitic vol] 89 fL Normal 80 - 100 [facility] Comment on above: Performed By: #### C BCDF ####[address] [address] Monocytes (Bld) [#/Vol] 1.10 10*3/uL High 0.10 - 1.00 [facility] Comment on above: Performed By: #### C BCDF ####[address] [address] Monocytes/100 WBC (Bld) 9.3 % Normal 2.0 - 10.0 [facility] Comment on above: Performed By: #### C BCDF ####[address] [address] Neutrophils (Bld) [#/Vol] 8.90 10*3/uL High 1.20 - 7.70 [facility] Comment on above: Result Comment: Perc ent differential counts (%) should be interpreted in the context of the absolute cell counts (cells/L). Performed By: #### C BCDF ####[address] [address] Neutrophils/100 WBC (Bld) 74.1 % Normal 40.0 - 80.0 [facility] Comment on above: Performed By: #### C BCDF ####[address] [address] NUCLEATED RBC 0.7 /100 WBC [facility] Comment on above: Performed By: #### C BCDF ####[address] [address] Platelets (Bld) [#/Vol] 265 10*3/uL Normal 150 - 450 [facility] Comment on above: Performed By: #### C BCDF ####[address] [address] RBC 5.30 x10E12/L High 4.00 - 5.20 [facility] Comment on above: Performed By: #### C BCDF ####[address] [address] WBC (Bld) [#/Vol] 12.0 10*3/uL High 4.4 - 11.3 [facility] Comment on above: Performed By: #### C BCDF ####[address] [address] CHEST 1 VIEWon 07-09-2022 CHEST 1 VIEW Patient Name: CAMILLE DAWKINS STUDY: CHEST 1 VIEW; 07/09/2022 4:20 pm INDICATION: AF . COMPARISON: None. ACCESSION NUMBER(S): [id number] ORDERING CLINICIAN: KIA RASHID FINDINGS: CARDIOMEDIASTINAL SILHOUETTE: Cardiomediastinal silhouette is normal in size and configuration. LUNGS: There may be a small infiltrate inferior to the right minor fissure, perhaps in the right middle lobe. The lungs are otherwise clear. ABDOMEN: No remarkable upper abdominal findings. BONES: No acute osseous changes. IMPRESSION: Possible small infiltrate inferior to right minor fissure, perhaps in the right middle lobe. Electronically signed by: FABIO DAWN MD [facility] COMPREHENSIVE PANELon 2021 Albumin [Mass/Vol] 3.7 g/dL Normal 3.4 - 5.0 [facility] Comment on above: Performed By: #### G MANJULA #### [address] [address] ALP [Catalytic activity/Vol] 133 U/L Normal 33 - 136 [facility] Comment on above: Performed By: #### G MANJULA #### [address] [address] ALT [Catalytic activity/Vol] 355 U/L High 7 - 45 [facility] Comment on above: Result Comment: Radha ents treated with Sulfasalazine may generate falsely decreased results for ALT. Performed By: #### G MANJULA #### [address] [address] Anion gap [Moles/Vol] 18 mmol/L Normal 10 - 20 [facility] Comment on above: Performed By: #### G MANJULA #### [address] [address] AST [Catalytic activity/Vol] 147 U/L High 9 - 39 [facility] Comment on above: Result Comment: MILD HEMOLYSIS DETECTED. The result may be falsely elevated due to hemolysis or other interferents. Clinical correlation is recommended. Repeat testing may be considered. Performed By: #### G MANJULA #### [address] [address] Bilirubin [Mass/Vol] 1.4 mg/dL High 0.0 - 1.2 [facility] Comment on above: Performed By: #### G MANJULA #### [address] [address] Calcium [Mass/Vol] 9.0 mg/dL Normal 8.6 - 10.3 [facility] Comment on above: Performed By: #### G MANJULA #### [address] [address] Chloride [Moles/Vol] 94 mmol/L Low 98 - 107 [facility] Comment on above: Performed By: #### G MANJULA #### [address] [address] Creatinine [Mass/Vol] 2.35 mg/dL High 0.50 - 1.05 [facility] Comment on above: Performed By: #### G MANJULA #### [address] [address] GFR/1.73 sq M.predicted among non-blacks MDRD (S/P/Bld) [Vol rate/Area] 23 mL/min/{1.73_m2} Abnormal >90 [facility] Comment on above: Result Comment: CALC ULATIONS OF ESTIMATED GFR ARE PERFORMED USING THE 2020 CKD-EPI STUDY REFIT EQUATION WITHOUT THE RACE VARIABLE FOR THE IDMS-TRACEABLE CREATININE METHODS. https://jasn.asnjournals.org/content//ASN.2020 843302 Performed By: #### G MANJULA #### [address] [address] Glucose [Mass/Vol] 328 mg/dL High 74 - 99 [facility] Comment on above: Performed By: #### G MANJULA #### [place] [id number] HCO3 (Bld) [Moles/Vol] 21 mmol/L Normal 21 - 32 [facility] Comment on above: Performed By: #### G MANJULA #### [place] [id number] Potassium [Moles/Vol] 5.4 mmol/L High 3.5 - 5.3 [facility] Comment on above: Result Comment: MILD HEMOLYSIS DETECTED. The result may be falsely elevated due to hemolysis or other interferents. Clinical correlation is recommended. Repeat testing may be considered. Performed By: #### G MANJULA #### [place] [address] Protein [Mass/Vol] 6.6 g/dL Normal 6.4 - 8.2 [facility] Comment on above: Performed By: #### G MANJULA #### [place] [id number] Sodium [Moles/Vol] 128 mmol/L Low 136 - 145 [facility] Comment on above: Performed By: #### G MANJULA #### [place] [id number] Urea nitrogen [Mass/Vol] 70 mg/dL High 6 - 23 [facility] Comment on above: Performed By: #### G MANJULA #### [place] [id number] CORONAVIRUS 2019 BY PCRon Lab Specimen Source Nasal, Nasopharyngeal [facility] Comment on above: Performed By: #### B NP2 #### [place] [id number] SARS-CoV-2 (COVID-19) RNA SRINIVAS+probe Ql (Unsp spec) Detected Abnormal Not Detected [facility] Comment on above: Result Comment: . This test has received FDA Emergency Use Authorization (EUA) and has been verified by [facility]. This test is only authorized for the duration of time that circumstances exist to justify the authorization of the emergency use of in vitro diagnostic tests for the detection of SARS-CoV-2 virus and/or diagnosis of COVID-19 infection under section 564(b)(1) of the Act, 21 U.S.C. 360bbb-3(b)(1), unless the authorization is terminated or revoked sooner. [facility] is certified under CLIA-88 as qualified to perform high complexity testing. Testing is performed in the [facility] laboratory located at [address] [place] [address]. SARS-CoV-2/Flu/RSV Multiplex Test: Fact sheet for providers: https://www.fda.gov/media/606076/download Fact sheet for patients: https://www.fda.gov/media/683551/download Performed By: #### B NP2 #### [place] [address] CREATINE KINASEon 07-09-2022 CK [Catalytic activity/Vol] 249 U/L High 0 - 215 [facility] Comment on above: Performed By: #### G MANJULA #### [place] [address] Complete Blood Count + Diffe rentialon 07-09-2022 Hematocrit (Bld) [Volume fraction] 47.1 % above high threshold See Below [facility]-Gastro[facility]ology-Too [facility] 6 [facility] Work Phone: Comment on above: Reference Range: 36. 0 - 46.0 Hemoglobin (Bld) [Mass/Vol] 14.4 g/dL See Below [facility]-Too [address] Work Phone: Comment on above: Reference Range: 12. 0 - 16.0 Platelets (Bld) [#/Vol] 265 10*3/uL 150 - 450 [facility]Too [address] Work Phone: RBC (Bld) [#/Vol] 5.30 {x10E12/L} above high threshold See Below [facility] 6 [facility] Work Phone: Comment on above: Reference Range: 4.0 0 - 5.20 Complete Blood Count + Differential 0.10 {x10E9/L} See Below [facility]-Too [facility] 6 I Work Phone: Comment on above: Reference Range: 0.0 0 - 0.10 Complete Blood Count + Differential 0.00 {x10E9/L} See Below [facility] 6 I Work Phone: Comment on above: Reference Range: 0.0 0 - 0.70 Complete Blood Count + Differential 1.10 {x10E9/L} above high threshold See Below [facility] 6 I Work Phone: Comment on above: Reference Range: 0.1 0 - 1.00 Complete Blood Count + Differential 1.90 {x10E9/L} See Below [facility] 6 I Work Phone: Comment on above: Reference Range: 1.2 0 - 4.80 Complete Blood Count + Differential 8.90 {x10E9/L} above high threshold See Below [facility] 6 I Work Phone: Comment on above: Reference Range: 1.2 0 - 7.70 Percent differential counts (%) should be interpreted in the context of the absolute cell counts (cells/L). Complete Blood Count + Differential 0.8 % 0.0 - 2.0 [facility] 6 [facility] Work Phone: Complete Blood Count + Differential 0.0 % 0.0 - 6.0 [facility] 6 I Work Phone: Complete Blood Count + Differential 9.3 % 2.0 - 10.0 [facility] 6 I Work Phone: Complete Blood Count + Differential 15.8 % See Below [facility] 6 I Work Phone: Comment on above: Reference Range: 13. 0 - 44.0 Complete Blood Count + Differential 74.1 % See Below [facility] 6 I Work Phone: Comment on above: Reference Range: 40. 0 - 80.0 Complete Blood Count + Differential 15.1 % above high threshold See Below [facility] 6 I Work Phone: Comment on above: Reference Range: 11. 5 - 14.5 Complete Blood Count + Differential 30.5 g/dL below low threshold See Below [facility] 6 I Work Phone: Comment on above: Reference Range: 32. 0 - 36.0 Complete Blood Count + Differential 89 fL 80 - 100 [facility] 6 I Work Phone: Complete Blood Count + Differential 0.7 {/100_WBC} [facility] 6 I Work Phone: Complete Blood Count + Differential 12.0 {x10E9/L} above high threshold 4.4 - 11.3 [facility]-Too ell 6 I Work Phone: Coronavirus 2019 RNA by PCR, Symptomaticon 07-09-2022 Coronavirus 2019 RNA by PCR, Symptomatic Detected Abnormal See Below [facility] 6 [facility] Work Phone: Comment on above: SOURCE: Nasal, Nasop haryngealReference Range: Not Detected.This test has received FDA Emergency Use Authorization (EUA) and has been verified by [facility]. This test is only authorized for the duration of time that circumstances exist to justify the authorization of the emergency use of in vitro diagnostic tests for the detection of SARS-CoV-2 virus and/or diagnosis of COVID-19 infection under section 564(b)(1) of the Act, 21 U.S.C. 360bbb-3(b)(1), unless the authorization is terminated or revoked sooner. [facility] is certified under CLIA-88 as qualified to perform high complexity testing. Testing is performed in the [facility] laboratory located at [address] [place] [address].SARS-CoV-2/Flu/RSV Multiplex Test: Fact sheet for providers: https://www.fda.gov/media/040006/downloadFact sheet for patients: https://www.fda.gov/media/084792/download Covid 19 Resultson 2 SARS-CoV-2 (COVID-19) RNA SRINIVAS+probe Ql (Unsp spec) POSITIVE COVID-19 Test Coronaviruses are common world-wide and are the cause of many common colds. SARS-COV2 is a new coronavirus that began circulating worldwide in 2019 so we are calling it COVID-19. It has been estimated that four out of five patients with COVID-19 will recover at home without the need for medical attention. Symptoms of COVID-19 may include cough, fever, shortness of breath, loss of taste or smell and other flu-like symptoms including chills, sore muscles, sore throat, and headache. Severe illness is more common in older people and people with other health problems such as high blood pressure, obesity, and immune system problems. If the test is positive, you have COVID-19. You will be contacted by the ordering physicians office and instructed to remain on home isolation, in accordance with CDC guidelines. You may also be contacted by the [facility] to see if any of your close contacts may have been exposed to the virus and need to quarantine. If the test is negative, you likely do not have COVID-19 at this time, but you still may have a different illness that can spread to other people (like Influenza, or the Flu) and could still be at risk for getting COVID-19. We recommend that you stay away from other people to limit the spread of illness until your symptoms are improving and you are fever-free for 24 hours without the use of fever lowering medications such as acetaminophen or ibuprofen. No test is 100% accurate so if you are still concerned you may have COVID-19, talk to your doctor about the need to continue to stay away from others. Medicines Unless your provider told you not to use the following: Acetaminophen (Tylenol and others) is generally safe. Anti-inflammatory medications, such as Ibuprofen (Advil or Motrin) or Naproxen (Aleve) can also be used. Lxos-ary-fgcrytr cough and cold medicines can be used according to the instructions on the package. Some tlhz-edo-dqdxszn medicines also contain acetaminophen. Make sure you are not taking more than your recommended dose. For those not hospitalized, there is no specific treatment available for this illness. Antibiotics do not treat Coronaviruses. Follow-Up Follow up with your doctor by scheduling a virtual visit or consider follow-up at one of our urgent care fever clinics. If you are having difficulty breathing, or are very weak and having difficulty standing, this is a medical emergency. Call 911 or have someone take you to the nearest emergency room immediately. If possible, wear a facemask. Additional guidance from the CDC for patients who tested POSITIVE for COVID-19 How to isolate: Isolate yourself in a specific room at home and limit your contact with others. Use a separate bathroom from other members of the household, when possible. Leave home only to get essential medical care. Do not go to work, school or public areas. Avoid using public transportation, ride-sharing, or taxis. Restrict contact with pets and other animals. If you must care for your pet or be around animals while you are sick, wash your hands before and after your interaction and wear a facemask. Make sure that shared spaces in the home have good airflow, such as by an air conditioner or an opened window, weather permitting. Personal Hygiene Procedures: Wear a face mask when in the same room as other people or pets. If a face mask interferes with your breathing, others should wear a mask when sharing space with you. Frequent hand-washing: wash your hands with soap and water for at least 20 seconds. If soap and water are not available, use alcohol-based hand mobile lab technician. Avoid touching your eyes, nose, and mouth with unwashed hands. Household Hygiene Procedures: Avoid sharing personal household items such as dishes, glassware, cups, eating utensils, towels or bedding with other people or pets in your home. After use, these items should be washed with soap and hot water. Disinfect all high-touch surfaces every day with antibacterial cleaning solutions such as Lysol wipes, bleach, cleansers, etc. High-touch surfaces include tabletops, doorknobs, bathroom fixtures, toilets, phones, keyboards, tablets and bedside tables. Immediately clean any surfaces that may have blood, poop or body fluids on them, using antibacterial cleaning solutions such as Lysol wipes, bleach, cleansers, etc. If clothing or bedding come into contact with blood, poop or body fluids, they should be washed immediately. Follow the directions on the laundry detergent and clothing labels but hot water is recommended when possible. Stopping home isolation precautions: If possible, consult your doctor before stopping home isolation precautions. According to the CDC, you can discontinue home isolation precautions when you have met both of these criteria: Your fever and respiratory symptoms have been gone for 24 renee (more content not included)... [facility] Creatine Kinase, Levelon CK [Catalytic activity/Vol] 249 U/L above high threshold 0 - 215 [facility] 6 I Work Phone: Cult, Bloodon 07-09-2022 Bacteria identified Cx Nom (Bld) [facility] 6 I Work Phone: D-DIMER, NON VTEon D-DIMER, NON VTE Canceled Normal [facility] Comment on above: Order Comment: TEST D-DIMER, NON VTE WAS CANCELLED, 07/09/2022 21:24 Result Comment: THE D-DIMER ASSAY IS REPORTED IN NG/ML FIBRINOGEN EQUIVALENT UNITS (FEU). THE RESULTS OF THIS ASSAY SHOULD NOT BE USED FOR THE EXCLUSION OF DEEP VEIN THROMBOSIS AND/OR PULMONARY EMBOLISM. Performed By: #### G MANJULA #### [place] [address] D-DIMER, VTE EXCLUSIONon D-DIMER, VTE EXCLUSION 2476 ng/mL FEU Abnormal < or = 50 0 [facility] Comment on above: Result Comment: The VTE Exclusion D-Dimer assay is reported in ng/mL Fibrinogen Equivalent Units (FEU). Per manufacturers instructions for use, a value of less than 500 ng/mL (FEU) may help to exclude DVT or PE in outpatients when the assay is used with a clinical pretest probability assessment. (AEMR must utilize and document eCalc Wells Score Deep Vein Thrombosis Risk for DVT exclusion only; Emergency Department should utilize Guidelines for Emergency Department Use of the VTE Exclusion D-Dimer and Clinical Pretest probability assessment model for DVT or PE exclusion.) Performed By: #### D IMEX #### [address] [address] LACTATEon 07-09-2022 Lactate [Moles/Vol] 2.7 mmol/L High 0.4 - 2.0 [facility] Comment on above: Result Comment: Susan puncture immediately after or during the administration of Metamizole may lead to falsely low results. Testing should be performed immediately prior to Metamizole dosing. Performed By: #### B NP2 #### [address] [address] LACTATE Canceled [facility] Comment on above: Order Comment: TEST LACTATE WAS CANCELLED, 07/09/2022 19:52 duplicate. Result Comment: Susan puncture immediately after or during the administration of Metamizole may lead to falsely low results. Testing should be performed immediately prior to Metamizole dosing. Performed By: #### B NP2 #### [address] [address] Lactate [Moles/Vol] 3.6 mmol/L High 0.4 - 2.0 [facility] Comment on above: Result Comment: Susan puncture immediately after or during the administration of Metamizole may lead to falsely low results. Testing should be performed immediately prior to Metamizole dosing. Performed By: #### L ACT ####[address] [address] Laboratory - Chemistry and C hemistry - challengeon 07-09-2022 Procalcitonin [Mass/Vol] Canceled [facility] 6 [facility] Work Phone: Comment on above: Procalcitonin (PCT) results measured serially can aid in decision-making for antibiotic discontinuation in patients with suspected or confirmed sepsis in conjunction with additional clinical information. Antibiotic discontinuation may be considered with a change in PCT of >80% from the peak result or when PCT falls below 0.50 ng/mL. .Procalcitonin results should not be used in isolation but should be interpreted in conjunction with additional clinical and laboratory findings. Procalcitonin results should not beused to guide the initiation of antibiotic therapy. .Falsely low PCT values in the presence of bacterial infection may occur in early infection, with atypical pathogens, localized infections, and subacute infectious endocarditis. .Falsely elevated results outside of severe bacterial infection/sepsis may be seen in patients with renal failure or insufficiency, severe trauma or zafar, recent major abdominal/cardiac surgery, acute multi-organ failure, rarely in patients with medullary thyroid carcinoma and rare neuroendocrine tumors, and non-specific interfering antibodies (heterophile antibodies, rheumatoid factor, human anti-mouse antibodies (HAMA), etc). .Performance of the PCT test in pediatric patients (<18yo), women, immunocompromised patients, and patients onimmunomodulatory medications has not been evaluated. Albumin BCP dye [Mass/Vol] 3.7 g/dL 3.4 - 5.0 [facility] 6 I Work Phone: ALP [Catalytic activity/Vol] 133 U/L 33 - 136 [facility] I Work Phone: ALT With P-5'-P [Catalytic activity/Vol] 355 U/L above high threshold 7 - 45 [facility] 6 I Work Phone: Comment on above: Patients treated wit h Sulfasalazine may generate falsely decreased results for ALT. AST With P-5'-P [Catalytic activity/Vol] 147 U/L above high threshold 9 - 39 [facility] 6 I Work Phone: Comment on above: MILD HEMOLYSIS DETEC RICHI. The result may be falsely elevated due tohemolysis or other interferents. Clinical correlation is recommended.Repeat testing may be considered. Bilirubin [Mass/Vol] 1.4 mg/dL above high threshold 0.0 - 1.2 [facility] 6 I Work Phone: Calcium [Mass/Vol] 9.0 mg/dL 8.6 - 10.3 [facility] 6 I Work Phone: Chloride [Moles/Vol] 94 mmol/L below low threshold 98 - 107 [facility] 6 [facility] Work Phone: CO2 [Moles/Vol] 21 mmol/L 21 - 32 [facility] en [facility] [place] 6 [facility] Work Phone: Creatinine [Mass/Vol] 2.35 mg/dL above high threshold See Below [facility] 6 [facility] Work Phone: Comment on above: Reference Range: 0.5 0 - 1.05 Glucose [Mass/Vol] 328 mg/dL above high threshold 74 - 99 [facility]-Gastroen terology-Too [facility] 6 [facility] Work Phone: Potassium [Moles/Vol] 5.4 mmol/L above high threshold 3.5 - 5.3 [facility]-Gastroen terology-Too [facility] 6 [facility] Work Phone: Comment on above: MILD HEMOLYSIS DETEC RICHI. The result may be falsely elevated due tohemolysis or other interferents. Clinical correlation is recommended.Repeat testing may be considered. Procalcitonin [Mass/Vol] 0.12 ng/mL Abnormal <=0.07 [facility]astroen [facility]ology-[facility] 6 [facility] Work Phone: Comment on above: Procalcitonin (PCT) results measured serially can aid in decision-making for antibiotic discontinuation in patients with suspected or confirmed sepsis in conjunction with additional clinical information. Antibiotic discontinuation may be considered with a change in PCT of >80% from the peak result or when PCT falls below 0.50 ng/mL. .Procalcitonin results should not be used in isolation but should be interpreted in conjunction with additional clinical and laboratory findings. Procalcitonin results should not beused to guide the initiation of antibiotic therapy. .Falsely low PCT values in the presence of bacterial infection may occur in early infection, with atypical pathogens, localized infections, and subacute infectious endocarditis. .Falsely elevated results outside of severe bacterial infection/sepsis may be seen in patients with renal failure or insufficiency, severe trauma or zafar, recent major abdominal/cardiac surgery, acute multi-organ failure, rarely in patients with medullary thyroid carcinoma and rare neuroendocrine tumors, and non-specific interfering antibodies (heterophile antibodies, rheumatoid factor, human anti-mouse antibodies (HAMA), etc). .Performance of the PCT test in pediatric patients (<18yo), women, immunocompromised patients, and patients onimmunomodulatory medications has not been evaluated. Protein [Mass/Vol] 6.6 g/dL 6.4 - 8.2 [facility] 6 [facility] Work Phone: Sodium [Moles/Vol] 128 mmol/L below low threshold 136 - 145 [facility] 6 I Work Phone: Urea nitrogen [Mass/Vol] 70 mg/dL above high threshold 6 - 23 [facility] 6 [facility] Work Phone: Lactate, Levelon 07-09-2022 Lactate [Moles/Vol] 2.2 mmol/L above high threshold 0.4 - 2.0 [facility] 6 [facility] Work Phone: Comment on above: Venipuncture immedia tely after or during the administration of Metamizole may lead to falsely low results. Testing should be performed immediately prior to Metamizole dosing. Lactate [Moles/Vol] 2.7 mmol/L above high threshold 0.4 - 2.0 [facility] 6 [facility] Work Phone: Comment on above: Venipuncture immedia tely after or during the administration of Metamizole may lead to falsely low results. Testing should be performed immediately prior to Metamizole dosing. Lactate [Moles/Vol] 3.6 mmol/L above high threshold 0.4 - 2.0 [facility] 6 [facility] Work Phone: Comment on above: Venipuncture immedia tely after or during the administration of Metamizole may lead to falsely low results. Testing should be performed immediately prior to Metamizole dosing. No Panel Informationon 07-09 283 mg/dL above high threshold 74 - 99 [facility] 6 [facility] Work Phone: 2180 pg/mL above high threshold 0 - 99 [facility] 6 I Work Phone: Comment on above: . <100 pg/mL - Heart failure buycublt756-514 pg/mL - Intermediate probability of acute heart. failure exacerbation. Correlate with clinical. context and patient history. >=300 pg/mL - Heart Failure likely. Correlate with clinical. context and patient history.BNP testing is performed using different testing methodology at [facility] than at other [facility] hospitals. Direct result comparisons should only be made within the same method. 23 {mL/min/1.73m2} Abnormal >90 [facility]ology-[facility] 6 [facility] Work Phone: Comment on above: CALCULATIONS OF LASHAWN MATED GFR ARE PERFORMED USING THE 2020 CKD-EPI STUDY REFIT EQUATION WITHOUT THE RACE VARIABLE FOR THE IDMS-TRACEABLE CREATININE METHODS.https://jasn.asnjournals.org/content// ASN.3801357640 18 mmol/L 10 - 20 [facility] 6 [facility] Work Phone: 5355 {ng/mL_FEU} Abnormal < or = 500 [facility]astr oen [facility]ology-[facility] 6 [facility] Work Phone: Comment on above: The VTE Exclusion D- Dimer assay is reported in ng/mL Fibrinogen Equivalent Units (FEU). Per manufacturers instructions for use, a value of less than 500 ng/mL (FEU) may help to exclude DVT or PE in outpatients when the assay is used with a clinical pretest probability assessment. (AEMR must utilize and document eCalc Wells Score Deep Vein Thrombosis Risk for DVT exclusion only; Emergency Department should utilize [facility] Guidelines for Emergency Department Use of the VTE Exclusion D-Dimer and Clinical Pretest probability assessment model for DVT or PE exclusion.) Order Reconciliationon 07-09 Order Reconciliation Page 1 Admission Reconciliation Document Reconciliation Type: ED to Observation requested on behalf of Nasir Mendez (Physician) done by Nasir Mendez) ED to Observation - Reconciliation: 09-Jul-2022 21:40 by: Nasir Mendez) ED to Observation - AutoLinked: 09-Jul-2022 21:40 by: Nasir Mendez) Home MedicationsEnteredLast Dose TakenReconciled with current Order Reconciliation Comment/ Additional Information DULoxetine 40 mg oral delayed release capsule 2 cap(s) orally once a day (at bedtime) PM Reviewed and Held Eliquis 5 mg oral tablet 1 tab(s) orally 2 times a [id number] PM Apixaban Tablet (ELIQUIS)DOSE = 5 mg Oral Every 12 HoursEliquis 5 mg oral tablet continued as the inpatient order Apixaban Farxiga 5 mg oral tablet 1 tab(s) orally once a [id number] Reviewed and Held furosemide 20 mg oral tablet 1 tab(s) orally once a [id number] Reviewed and Held glimepiride 4 mg oral tablet 1 tab(s) orally 2 times a [id number]-2022 PM Reviewed and Held Janumet XR 50 mg-1000 mg oral tablet, extended release 2 tab(s) orally once a day (in the evening) PM Reviewed and Held LamISIL AT [employer] 1% topical cream Apply topically to affected area 2-3 times a [id number] Reviewed and Held losartan 100 mg oral tablet 1 tab(s) orally once a [id number] Reviewed and Held Metoprolol Succinate ER 100 mg oral tablet, extended release 1 tab(s) orally once a [id number] Reviewed and Held sildenafil 50 mg oral tablet 1 tab(s) orally once a day, As Needed for libido 09-Jul-2022 Reviewed and Held SUMAtriptan 50 mg oral tablet 1 tab(s) orally once, As [id number] Reviewed and Held traZODone 100 mg oral tablet 1 tab(s) orally once a day (at bedtime) 09-Jul-2022 traZODone Tablet (DESYREL)DOSE = 100 mg Oral At Bedtime traZODone 100 mg oral tablet continued as the inpatient order traZODone Additional Current Orders Acetaminophen Tablet (TYLENOL)DOSE = 650 mg Oral Every 4 Hours, PRN Temp Greater Than or Equal to 38.0 C Budesonide 0.5 mg/ 2 mL Nebulizer Soln (PULMICORT)DOSE = 2 mL Inhalation Every 12 Hours via Nebulizer Cefepime IV Piggy Back in Dextrose 5% in Water 50 mL (MAXIPIME)DOSE = 2 gram(s) Every 12 HoursRecommended Infusion Time: 30 minute(s) dilTIAZem (CARDIZEM) 125 mg/ NaCL 0.7% 125 mL Premix Infusion SolutionIntraVenous Initial Admin Rate = 5 mL/hrMAX DOSE Rate = 15 mg/hrTitration Goal 1: Heart Rate between 80 and 100 beats/minTitration Goal 2: Systolic blood pressure greater than 100 mmHgBidirectional Titration Dose: 5 mg/hr Every 2 MinutesClinician Notes: If heart rate less than 80 beats per minute or systolic blood pressure less than 90 mmHg, discontinue diltiazem drip and notify ordering provider.Use caution in patients with LV dysfunction.Notes from Pharmacy: Initial DOSE Rate = 5 mg/hr = 5 mL/hr. Doxycycline IV Piggy Back in Sodium Chloride 0.9% 100 mL (VIBRAMYCIN)DOSE = 100 mg Every 12 HoursRecommended Infusion Time: 1 hour(s) guaiFENesin Extended Release Tablet, Extended Release (MUCINEX)DOSE = 600 mg Oral Every 12 Hours, PRN Congestion Insulin Lispro (HUMALOG) Carb/ISF Calculator Units of Insulin: 1Per Every 50 mg/dL Greater Than Target Glucose of: 100 With Meals and At Bedtime.Units of Insulin: 1 per Carbohydrates: 15 grams with All MealsOpen Task Form for Actual Insulin Dose to Be AdministeredDO NOT USE AT MIDNIGHT AND 3AM Ipratropium 500 microgram/ 2.5 mL Neb Soln (ATROVENT)DOSE = 2.5 mL Inhalation Every 6 Hours via Nebulizer, PRN Shortness of Breath Ondansetron Injectable (ZOFRAN)DOSE = 4 mg IntraVenous Push Every 4 Hours, PRN Nausea and/or Vomiting Perflutren Lipid Microsphere (Activated) 1.3 mL / NaCL 0.9% T.V. 10 mL Injectable DOSE = 0.5 mL IntraVenous Push OnceCa.903275 mL/Kg/DOSE x 96 Kg = 0.5 mL/Dose (Daily Total is 0.5 mL)Clinician Notes: 1. Dilute 1.3 mL of activated DEFINITY with 8.7 mL of normal saline in a 10 mL syringe.2. Inject 0.5 mL of diluted DEFINITY when notified the images/film are unclear to enhance view of Left Ventricular borders.3. Repeat 0.5 mL of DEFINITY until clear images are obtained, not to exceed 10 mLs.4. Once images are obtained or limit of medication is reached, flush line with 10 mL of Normal Saline. Sodium Chloride 0.9% Infusion IV Bag Volume = 1,000 mL Run at: 125 mL/hr IntraVenous Sodium Chloride 0.9% Injectable Flush via Peripheral LineVolume = 10 mL IntraVenous Flush Every 8 Hours and as Needed Sodium Polystyrene Sulfonate Oral Liquid (KAYEXALATE)DOSE = 30 gram(s) Oral Once Sore Throat Lozenge LozengeDOSE = 1 lozenge(s) Oral Every 2 Hours, PRN Sore ThroatCa lozenge(s)/DOSE x 1 = 1 lozenge(s)/Dose (Daily Total is 12 lozenge(s)) [facility] Patient Profile - Adult v2on 07-09-2022 Patient Profile - Adult v2 Profile: Initial Info: How to be AddressedDawn Spoken Language PreferredEnglish Source of Informationpatient Stated Reason for Admissionhad a feeling I was in afib [facility] [phone] Wants Family/Rep Notified of Admissionno Notify PCPnotify PCP Informed of Patient Visiting Rightsyes Arrived Fromemergency department Patient Belongingsremains with patient Patient Belongings Remaining with Patientcell phone/electronics; clothing; 2 cell phones, stud earings; jewelry Medications Brought to Hospitalno General Health: Weight in kg95.8 kilogram(s) Weight in eyq871.2 pound(s) Weight Methodactual (measured) Scale Typebed Height in cm159.9 centimeter(s)(1) Height in feet5 feet Height in inches2.99 inch(es) Height Methodstated BMI (kg/m2)37.468 square meter RSP Based Care: How would you like to participate in your careactive What is the number one concern for you during this hospitalizationfeel better What is the most important thing we can do to support you during this hospitalizationlisten Is there anything we need to know to best care for youno Substance: Smoking Statusnever smoker (2) Health Mgmt: Symptoms/Conditions Managed at H[facility]one Relationship/Environ: Resource/Environmental Concernsnone Primary Source of Support/Comfortspouse Lives Withspouse; parent(s) Living Arrangementshouse Services Anticipated at Transitionnone Anticipated Transition Tohome Significant IndicatorsComplete Information Review: Allergies, Home Meds and Significant Events have been Reviewed and Verified with Patient/Familyyes ALLERGY, INTOLERANCE, ADVERSE EVENT: Allergies: penicillins: Drug Category, Rash, Hives/Urticaria, Active Levaquin: Drug, Unknown, Active Electronic Signatures: Jacey Joseph (RN) (Signed 09-Jul-2022 21:45) Authored: Initial Info, General Health, RSP Based Care, Substance, Health Mgmt, Relationship/Environ, Additional Information Last Updated: 09-Jul-2022 21:45 by Jacey Joseph (RN) References: 1. Data Referenced From 1. Vital Signs 09-Jul-2022 15:20 2. Data Referenced From Provider Note - ED v3 09-Jul-2022 15:38 [facility] Provider Note - ED Care Bravo sitlaineyon 07-09-2022 Provider Note - ED Care Transition ED Care Transition: Chart Review: ED NOTES ED NOTES: Patient presenting with A. fib with RVR. Patient was recently admitted at outside hospital for similar. Upon presentation, patient was given Cardizem as well as started on a septic work-up. Chest x-ray suspicious for pneumonia. Labs also reveal elevated lactic acid, acute kidney injury, elevated BNP, elevated troponin. Patient has some improvement in her heart rate with fluids and Cardizem. Repeat lactic acid showed improvement. Repeat trop flat. Upon my re-evaluation at change of shift, patient in bed non distressed with improvement in HR in 80s. Pt agreeable to admission and voiced understanding. MEDICAL DECISION MAKING/ED COURSE MDM/ED COURSE: 8:[address] Patel (Cardiology) as patient has elevated troponin; patient appropriate for [facility] 8:[address] Mendez (Hospitalist) who accepts admission CLINICAL IMPRESSION Diagnosis/Annotation: ED Dx Name:Atrial fibrillation with rapid ventricular response Code:I48.91 Name:DIVINA (acute kidney injury) Code:N17.9 Name:CHF (congestive heart failure) Code:I50.9 Name:Healthcare-associate d pneumonia Code:J18.9 Disposition: hospitalized Admit to: Telemetry. Admitting Considerations: Condition on Disposition: stable ATTESTATION CRITICAL CARE TIME Is this a critically ill patient: yes Billing Provider Critical Care Time (mins): 45 Primary Critical Care Issue/Treatment (See MDM/ED Course/Tx Plan for greater detail): -- This patient is believed to have sepsis. We are treating with appropriate agents (antibiotics, antifungals, and/or antivirals), fluids and/or pressors, as indicated, as well as intensive monitoring. Please see MDM/ED Course/Treatment Plan for greater detail. Electronic Signatures: Blanca Morales) (Signed 09-Jul-2022 21:01) Authored: ED Notes, MDM/ED Course, Clinical Impression, Attestation, Chart Review, Scores Last Updated: 09-Jul-2022 21:01 by Blanca Morales) [facility] Provider Note - ED Care Transition This report has been cancelled. [facility] Provider Note - ED Care Transition This report has been cancelled. [facility] Provider Note - ED v3on 06-13 Provider Note - ED v3 Provider Note: Chart Review: ED NOTES ED NOTES: 62-year-old female presents with rapid heart rate. Patient states symptoms started last night. Patient here on the monitor has a heart rate between 140 and 160. This is irregular and she is in rapid atrial fibrillation. Patient does take metoprolol 100 mg twice a day. Patient was recently treated at [place] and son states they did not do much for her. Patient denies any chest pain. Patient states she has had some diarrhea and no normal bowel movement for 3 weeks. Patient states her appetite has been poor. We will initiate a Cardizem drip. Patient's heart rate did improve after Cardizem was initiated and at present her heart rates in the 110s. Patient was given an enema for constipation. Patient has been reassessed several times by myself and feels markedly improved. Patient will be hydrated minimally to address her lactic acid. Patient was also given 1 g of Maxipime to address her HCAP pneumonia. I did go over the patient with the hospitalist and she wants a repeat lactic and troponin and cardiology consulted. Patient states she feels better and is remained stable. Heart rate has continued to decrease on the Cardizem drip. Patient will be transition to oncoming provider. HISTORY OF PRESENTING ILLNESS CAMILLE is a 62 year old Female and was seen by me at 09-Jul-2022 15:19 for a chief complaint of rapid heart beat (pt to ED today with Rapid heart rate. Was at [facility] with same symptoms 2-3 weeks ago. pressure in chest. Pt has been falling a lot lately, Had diarrhea last weeks but thinks she is constipated.)(1). The historian is the janet. Triage Information: Most recent Vital Sign Value Date Temp (F): 96.8 07-09-2022 15:20 Temp (C): 36 07-09-2022 15:20 Heart Rate (beats/min): 141 07-09-2022 15:20 Respirations (breaths/min): 23 07-09-2022 15:20 SpO2 (%): 96 07-09-2022 15:20 BP Systolic (mm Hg): 131 07-09-2022 15:20 BP Diastolic (mm Hg): 88 07-09-2022 15:20 PAST MEDICAL HISTORY CURRENT OR FORMER SUBSTANCE USE: Tobacco/Nicotine Use: never smoker ALLERGIES/INTOLERANCES: Allergy Allergen: penicillins Type: Drug Category Reaction: Rash Hives/Urticaria Allergen: Levaquin Type: Drug Reaction: Unknown HEALTH HISTORY: No documented data. OUTPATIENT MEDICATIONS: Home Medications Review Status for Reconciliation: Complete Med Status: Patient Currently Takes Medications Drug Name: Eliquis 5 mg oral tablet Instructions: 1 tab(s) orally 2 times a day Drug Name: Farxiga 5 mg oral tablet Instructions: 1 tab(s) orally once a day Drug Name: DULoxetine 40 mg oral delayed release capsule Instructions: 2 cap(s) orally once a day (at bedtime) Drug Name: furosemide 20 mg oral tablet Instructions: 1 tab(s) orally once a day Drug Name: glimepiride 4 mg oral tablet Instructions: 1 tab(s) orally 2 times a day Drug Name: losartan 100 mg oral tablet Instructions: 1 tab(s) orally once a day Drug Name: Janumet XR 50 mg-1000 mg oral tablet, extended release Instructions: 2 tab(s) orally once a day (in the evening) Drug Name: Metoprolol Succinate ER 100 mg oral tablet, extended release Instructions: 1 tab(s) orally once a day Drug Name: SUMAtriptan 50 mg oral tablet Instructions: 1 tab(s) orally once, As Needed Drug Name: traZODone 100 mg oral tablet Instructions: 1 tab(s) orally once a day (at bedtime) Drug Name: LamISIL AT [employer] 1% topical cream Instructions: Apply topically to affected area 2-3 times a day Drug Name: sildenafil 50 mg oral tablet Instructions: 1 tab(s) orally once a day, As Needed for libido SIGNIFICANT EVENTS: No documented data. REVIEW OF SYSTEMS CONSTITUTIONAL: POSITIVE for: malaise and weakness CARDIOVASCULAR: POSITIVE for: irregular rhythm, palpitations and tachycardia GASTROINTESTINAL: POSITIVE for: abdominal pain; All other systems reviewed and are negative PHYSICAL EXAM CONSTITUTIONAL: Well appearing, well nourished, awake, alert, oriented to person, place, time/situation and in no apparent distress. HENMT: Airway patent, ears with clear tympanic membranes bilaterally. Nasal mucosa clear. Mouth with normal mucosa. Throat has no vesicles, no oropharyngeal exudates and uvula is midline. Face with no lymph node enlargement. EYES: Clear bilaterally, pupils equal, round and reactive to light. CARDIOVASCULAR: Irregular irregular and rapid, heart sounds S1, S2. No murmurs, rubs or gallops. PMI non-displaced. RESPIRATORY: Breath sounds clear and equal bilaterally. GASTROINTESTINAL: Abdomen soft, non-distended, no rebound, no guarding. Bowel sounds normal in all 4 quadrants. GENITOURINARY: No discharge, no lesions. MUSCULOSKELETAL: Spine appears normal, range of motion is not limited, no muscle or joint tenderness. NEUROLOGICAL: Alert and oriented, no focal deficits, no motor or sensory deficits. SKIN: Skin normal color for race, warm, (more content not included)... [facility] RESPIRATORY CULT./,LOWERon 07-09-2022 RESPIRATORY CULT./,LOWER TEST RESPIRATORY CULT./,LOWER WAS CANCELLED, 07/14/2022 03:51 No specimen received. PATIENT: CAMILLE DAWKINS LOCATION: [facility] BILL#: [id number] : 62 AGE: SEX: F ORDERED BY: NASIR MENDEZ SOURCE: SPUTUM COLLECTED: ANTIBIOTICS AT RICHARD.: RECEIVED : SITE: R E S U L T S GRAM STAIN CANCELLED 07/14/22 03:51 RESPIRATORY CULT./SM,LOWER CANCELLED 07/14/22 03:51 Normal [facility] Comment on above: Performed By: #### D IMEX #### [address] [address] Radiologyon 07-09-2022 XR Chest Single view Normal [facility]-G astroen [facility] 6 I Work Phone: SEDIMENTATION RATE, ERYTHROC YTEon 07-09-2022 SEDIMENTATION RATE, ERYTHROCYTE 25 mm/h Normal 0 - 30 [facility] Comment on above: Performed By: #### B NP2 #### [address] [address] Sedimentation Rate, Erythroc yteon 07-09-2022 ESR (Bld) [Velocity] 25 mm/h 0 - 30 [facility] astroen [facility] 6 I Work Phone: TROPONIN I, HIGH SENSITIVITY on 07-09-2022 TROPONIN I, HIGH SENSITIVITY 25 ng/L High 0 - 13 [facility] Comment on above: Result Comment: . Less than 99th percentile of normal range cutoff- Female and children under 18 years old <14 ng/L; Male <21 ng/L: Negative Repeat testing should be performed if clinically indicated. . Female and children under 18 years old 14-50 ng/L; Male 21-50 ng/L: Consistent with possible cardiac damage and possible increased clinical risk. Serial measurements may help to assess extent of myocardial damage. . >50 ng/L: Consistent with cardiac damage, increased clinical risk and myocardial infarction. Serial measurements may help assess extent of myocardial damage. . NOTE: Children less than 1 year old may have higher baseline troponin levels and results should be interpreted in conjunction with the overall clinical context. . NOTE: Troponin I testing is performed using a different testing methodology at [facility] than at other [facility]. Direct result comparisons should only be made within the same method. Performed By: #### T [facility] ####[address] [place] [address] Tropinin I.cardiac panel High sensitivity method 25 ng/L above high threshold 0 - 13 [facility]Gastroen terology-Too ottell 6 [facility] Work Phone: Comment on above: .Less than 99th perc entile of normal range cutoff-Female and children under 18 years old <14 ng/L; Male <21 ng/L: NegativeRepeat testing should be performed if clinically indicated. .Female and children under 18 years old 14-50 ng/L; Male 21-50 ng/L:Consistent with possible cardiac damage and possible increased clinical risk. Serial measurements may help to assess extent of myocardial damage. .>50 ng/L: Consistent with cardiac damage, increased clinical risk andmyocardial infarction. Serial measurements may help assess extent of myocardial damage. . NOTE: Children less than 1 year old may have higher baseline troponin levels and results should be interpreted in conjunction with the overall clinical context. .NOTE: Troponin I testing is performed using a different testing methodology at [facility] than at other [facility]. Direct result comparisons should only be made within the same method. TROPONIN I, HIGH SENSITIVITY 27 ng/L High 0 - 13 [facility] Comment on above: Result Comment: . Less than 99th percentile of normal range cutoff- Female and children under 18 years old <14 ng/L; Male <21 ng/L: Negative Repeat testing should be performed if clinically indicated. . Female and children under 18 years old 14-50 ng/L; Male 21-50 ng/L: Consistent with possible cardiac damage and possible increased clinical risk. Serial measurements may help to assess extent of myocardial damage. . >50 ng/L: Consistent with cardiac damage, increased clinical risk and myocardial infarction. Serial measurements may help assess extent of myocardial damage. . NOTE: Children less than 1 year old may have higher baseline troponin levels and results should be interpreted in conjunction with the overall clinical context. . NOTE: Troponin I testing is performed using a different testing methodology at [facility] than at other [facility]. Direct result comparisons should only be made within the same method. Performed By: #### T [facility] #### [id number] [place] [address] Tropinin I.cardiac panel High sensitivity method 27 ng/L above high threshold 0 - 13 [facility]-Gastroen terology-Too john 6 [facility] Work Phone: Comment on above: .Less than 99th perc entile of normal range cutoff-Female and children under 18 years old <14 ng/L; Male <21 ng/L: NegativeRepeat testing should be performed if clinically indicated. .Female and children under 18 years old 14-50 ng/L; Male 21-50 ng/L:Consistent with possible cardiac damage and possible increased clinical risk. Serial measurements may help to assess extent of myocardial damage. .>50 ng/L: Consistent with cardiac damage, increased clinical risk andmyocardial infarction. Serial measurements may help assess extent of myocardial damage. . NOTE: Children less than 1 year old may have higher baseline troponin levels and results should be interpreted in conjunction with the overall clinical context. .NOTE: Troponin I testing is performed using a different testing methodology at [facility] than at other [facility]. Direct result comparisons should only be made within the same method. [facility] Surgical Pathology Depar tmenton 07-09-2022 [facility] Surgical Pathology Department Normal [facility] Comment on above: Performed By: #### U [facility] ####[facility] Surgical Pathology [address] [place] [address] Absolute lymphocyte counton 07-06-2022 Lymphocytes Auto (Unsp spec) [#/Vol] 3.72 10*3/uL 0.83-4.51 [facility] Work Phone: Basophil percentageon 2021 Chloride [Moles/Vol] 98 mmol/L 98-107 [facility] Work Phone: Glucose [Mass/Vol] 221 mg/dL 74-106 [facility] Work Phone: [phone] Comment on above: Glucose result great er than or equal to 200 mg/dLsuggests DIABETES MELLITUS per A.D.A. criteria. Potassium [Moles/Vol] 4.5 mmol/L 3.5-5.1 [facility] Work Phone: Sodium [Moles/Vol] 131 mmol/L 136-145 [facility] Work Phone: Basophils/100 WBC (Bld) 0.3 % 0-1 [facility] Work Phone: Eosinophils/100 WBC (Bld) 0.3 % 0-5 [facility] Work Phone: Neutrophils (Bld) [#/Vol] 9.0 10*3/uL 2.0-7.7 [facility] Work Phone: Neutrophils/100 WBC (Bld) 61.7 % 47-70 [facility] Work Phone: WBC (Bld) [#/Vol] 14.6 10*3/uL 4.4-11.0 [facility] Work Phone: Basophil percentage 10-25 SEEN /hpf 0-5 [facility] Work Phone: Bilirubin Test strip Ql (U)o n 07-06-2022 Bilirubin Ql (U) Negative Negative [facility] Work Phone: Blood erythrocytes count (nu mber/volume)on 07-06-2022 RBC (Bld) [#/Vol] 5.03 10*6/uL 4.2-5.4 [facility] Work Phone: Blood hemoglobin measurement (mass/volume)on 07-06-2022 Hemoglobin (Bld) [Mass/Vol] 14.0 g/dL 12.0-15.0 [facility] Work Phone: [phone] Blood lymphocytes/100 leukoc yteson 07-06-2022 Lymphocytes/100 WBC (Bld) 25.4 % 19-41 [facility] Work Phone: [phone] Blood monocytes/100 leukocyt eson 07-06-2022 Monocytes/100 WBC (Bld) 11.6 % 0-10 [facility] Work Phone: Blood platelet mean volumeon 07-06-2022 Platelet mean volume (Bld) [Entitic vol] 10.0 fL 6.2-12.0 [facility] Work Phone: Blood polychromasia detectio n by light microscopyon 10-25-2022 Polychromasia LM Ql (Bld) RARE [facility] Work Phone: Determination of erythrocyte mean corpuscular volume (MCV)on 07-06-2022 MCV (RBC) [Entitic vol] 88.5 fL 81-99 [facility] Work Phone: Glucose Glucometer (BldC) [M ass/Vol]on 07-06-2022 Glucose [Mass/Vol] 227 mg/dL 74-106 [facility] Work Phone: Comment on above: MANAGEMENT OF PATIEN T CARE PER NURSING PROTOCOL Hematocrit Auto (Bld) [Volum e fraction]on 07-06-2022 Hematocrit (Bld) [Volume fraction] 44.5 % 37-47 [facility] Work Phone: Hyaline casts LM.LPF (Urine sed) [#/Area]on 07-06-2022 Hyaline casts (Urine sed) [#/Area] 0 /[LPF] 0-5 [facility] Work Phone: Ketones Test strip Ql (U)on 07-06-2022 Ketones Ql (U) 5 mg/dl Negative [facility] Work Phone: Laboratory - Chemistry and C hemistry - challengeon 07-06-2022 CO2 [Moles/Vol] 21.0 mmol/L 21.0-32.0 [facility] Work Phone: Urea nitrogen/Creatinine [Mass ratio] 31.6 mg/mg 10-20 [facility] Work Phone: Laboratory - Hematology and Cell countson 07-06-2022 Erythrocyte distribution width (RBC) [Entitic vol] 44.1 fL 35.1-43.9 [facility] Work Phone: Erythrocyte distribution width (RBC) [Ratio] 13.9 % 11.6-14.6 [facility] Work Phone: Immature granulocytes/100 WBC (Bld) 0.700 % 0.0-0.9 [facility] Work Phone: Comment on above: IG% - Immature Granu locytes (promyelocytes, myelocytes and metamyelocytes) > 1% indicates that a LEFT SHIFT is Present. MCH (RBC) [Entitic mass] 27.8 pg 27.0-32.0 [facility] Work Phone: Nucleated RBC/100 WBC (Bld) [Ratio] 0.3 % 0-5 [facility] Work Phone: MCHC Auto (RBC) [Mass/Vol]on 07-06-2022 MCHC (RBC) [Mass/Vol] 31.5 g/dL 32-36 [facility] Work Phone: Mucus LM Ql (Urine sed)on Mucus Ql (Urine sed) Not Reportable [facility] Work Phone: Nitrite Test strip Ql (U)on 07-06-2022 Nitrite Ql (U) Negative Negative [facility] Work Phone: No Panel Informationon 07-06 Troponin I High Sensitivity 24 pg/mL 3.0-54.0 [facility] Work Phone: Comment on above: Please Note: New Riya t Units and Gender Specific Reference Ranges. For more information see Policy Stat Procedure [place] High Sensitivity Troponin (TNIH) and attachments. Estimated Creatinine Clearance Calc 24.06 ml/min [facility] Work Phone: Estimated GFR (MDRD) Amer 31 mL/min >60 [facility] Work Phone: Comment on above: GFR Calc Estimated GFR (MDRD) Non-Af Amer 25 mL/min >60 [facility] Work Phone: Comment on above: Non- GFR Calc Urine Urea Nitrogen 1023 mg/dL NO RANGE EST. [facility] Work Phone: Platelets bldon 07-06-2022 Platelets (Bld) [#/Vol] 306 10*3/uL 150-450 [facility] Work Phone: Protein Test strip Ql (U)on 07-06-2022 Protein Ql (U) 30 mg/dl Negative [facility] Work Phone: Review by pathologiston 06-13 Pathologist review Temo (Unsp spec) [Interp] January ugo [facility] Work Phone: Pathologist review Temo (Unsp spec) [Interp] Reviewed [facility] Work Phone: Comment on above: Previous reported re sult: Breanna arizmendi Edited by: RGOOD on 07/06/22:1517Mild mature monocytosis noted.Nando Gerardo D.O. 07/06/22 AMENDED REPORT 07/06/22 1517 PATH REV previously reported as: January ugo Serum or plasma calcium paul urement (mass/volume)on 07-06-2022 Calcium [Mass/Vol] 8.5 mg/dL 8.5-10.1 [facility] Work Phone: Serum or plasma creatinine m easurement (mass/volume)on 07-06-2022 Creatinine [Mass/Vol] 2.12 mg/dL 0.55-1.02 [facility] Work Phone: Comment on above: The validity of the calculated GFR & GFRAA in patients over 70 years has not been determined. Clinical correlation is essential. Serum or plasma urea nitroge n measurement (mass/volume)on 07-06-2022 Urea nitrogen [Mass/Vol] 67 mg/dL 7-18 [facility] Work Phone: Squamous epithelial cells de tection in urine sediment by light microscopyon 07-06-2022 Epithelial cells.squamous LM Ql (Urine sed) 0-5 SEEN /hpf 5-10 [facility] Work Phone: Thin prep Papanicolaou smear with manual screeningon 07-06-2022 Thin prep Papanicolaou smear with manual screening 12 5-15 [facility] Work Phone: Urine blood detectionon 06-13 RBC Ql (U) 10 /ul Negative [facility] Work Phone: RBC Ql (U) 0-5 SEEN /hpf 0-5 [facility] Work Phone: Urine clarityon 07-06-2022 Clarity (U) Clear Clear [facility] Work Phone: Urine color determinationon 07-06-2022 Color (U) Yellow Yellow [facility] Work Phone: Urine creatinine measurement (mass/volume)on 07-06-2022 Creatinine (U) [Mass/Vol] 108.00 mg/dL NO RANGE EST. [facility] Work Phone: Urine glucose detectionon Glucose Ql (U) 250 mg/dl Normal [facility] Work Phone: Urine leukocyte esterase det ection by dipstickon 07-06-2022 Leukocyte esterase Test strip Ql (U) 500 /ul Negative [facility] Work Phone: Urine pHon 07-06-2022 pH (U) 5.0 [pH] 5.0 - 8.0 [facility] Work Phone: Urine sediment bacteria coun t by microscopy (number/high power field)on 07-06-2022 Bacteria LM.HPF (Urine sed) [#/Area] 1 /[HPF] None Seen [facility] Work Phone: Urine specific gravity measu rementon 07-06-2022 Specific gravity (U) [Rel density] 1.020 1.002-1.03 0 [facility] Work Phone: Urobilinogen Auto test strip Ql (U)on 07-06-2022 Urobilinogen Ql (U) Normal mg/dl Normal [facility] Work Phone: Absolute lymphocyte counton 07-05-2022 Lymphocytes Auto (Unsp spec) [#/Vol] 3.57 10*3/uL 0.83-4.51 [facility] Work Phone: Basophil percentageon 2021 Basophils/100 WBC (Bld) 0.3 % 0-1 [facility] Work Phone: Chloride [Moles/Vol] 96 mmol/L 98-107 [facility] Work Phone: Eosinophils/100 WBC (Bld) 0.1 % 0-5 [facility] Work Phone: Glucose [Mass/Vol] 243 mg/dL 74-106 [facility] Work Phone: Comment on above: Glucose result great er than or equal to 200 mg/dLsuggests DIABETES MELLITUS per A.D.A. criteria. Neutrophils (Bld) [#/Vol] 9.1 10*3/uL 2.0-7.7 [facility] Work Phone: Neutrophils/100 WBC (Bld) 64.0 % 47-70 [facility] Work Phone: Potassium [Moles/Vol] 5.1 mmol/L 3.5-5.1 [facility] Work Phone: Sodium [Moles/Vol] 128 mmol/L 136-145 [facility] Work Phone: [phone] WBC (Bld) [#/Vol] 14.3 10*3/uL 4.4-11.0 [facility] Work Phone: [phone] Blood erythrocytes count (nu mber/volume)on 07-05-2022 RBC (Bld) [#/Vol] 5.21 10*6/uL 4.2-5.4 [facility] Work Phone: Blood hemoglobin measurement (mass/volume)on 07-05-2022 Hemoglobin (Bld) [Mass/Vol] 14.4 g/dL 12.0-15.0 [facility] Work Phone: Blood lymphocytes/100 leukoc yteson 07-05-2022 Lymphocytes/100 WBC (Bld) 25.0 % 19-41 [facility] Work Phone: Blood monocytes/100 leukocyt eson 07-05-2022 Monocytes/100 WBC (Bld) 10.0 % 0-10 [facility] Work Phone: Blood platelet mean volumeon 07-05-2022 Platelet mean volume (Bld) [Entitic vol] 10.4 fL 6.2-12.0 [facility] Work Phone: Determination of erythrocyte mean corpuscular volume (MCV)on 07-05-2022 MCV (RBC) [Entitic vol] 89.1 fL 81-99 [facility] Work Phone: Hematocrit Auto (Bld) [Volum e fraction]on 07-05-2022 Hematocrit (Bld) [Volume fraction] 46.4 % 37-47 [facility] Work Phone: Laboratory - Chemistry and C hemistry - challengeon 07-05-2022 CO2 [Moles/Vol] 21.0 mmol/L 21.0-32.0 [facility] Work Phone: Urea nitrogen/Creatinine [Mass ratio] 28.2 mg/mg 10-20 [facility] Work Phone: Laboratory - Hematology and Cell countson 07-05-2022 Erythrocyte distribution width (RBC) [Entitic vol] 44.5 fL 35.1-43.9 [facility] Work Phone: Erythrocyte distribution width (RBC) [Ratio] 13.9 % 11.6-14.6 [facility] Work Phone: Immature granulocytes/100 WBC (Bld) 0.600 % 0.0-0.9 [facility] Work Phone: Comment on above: IG% - Immature Granu locytes (promyelocytes, myelocytes and metamyelocytes) > 1% indicates that a LEFT SHIFT is Present. MCH (RBC) [Entitic mass] 27.6 pg 27.0-32.0 [facility] Work Phone: Nucleated RBC/100 WBC (Bld) [Ratio] 0.2 % 0-5 [facility] Work Phone: MCHC Auto (RBC) [Mass/Vol]on 07-05-2022 MCHC (RBC) [Mass/Vol] 31.0 g/dL 32-36 [facility] Work Phone: [phone] No Panel Informationon 07-05 Estimated Creatinine Clearance Calc 21.80 ml/min [facility] Work Phone: Estimated GFR (MDRD) Amer 27 mL/min >60 [facility] Work Phone: Comment on above: GFR Calc Estimated GFR (MDRD) Non-Af Amer 23 mL/min >60 [facility] Work Phone: Comment on above: Non- GFR Calc Troponin I High Sensitivity 35 pg/mL 3.0-54.0 [facility] Work Phone: Comment on above: Please Note: New Riya t Units and Gender Specific Reference Ranges. For more information see Policy Stat Procedure [place] High Sensitivity Troponin (TNIH) and attachments. Platelets bldon 07-05-2022 Platelets (Bld) [#/Vol] 341 10*3/uL 150-450 [facility] Work Phone: Serum or plasma calcium paul urement (mass/volume)on 07-05-2022 Calcium [Mass/Vol] 9.1 mg/dL 8.5-10.1 [facility] Work Phone: Serum or plasma creatinine m easurement (mass/volume)on 07-05-2022 Creatinine [Mass/Vol] 2.34 mg/dL 0.55-1.02 [facility] Work Phone: Comment on above: The validity of the calculated GFR & GFRAA in patients over 70 years has not been determined. Clinical correlation is essential. Serum or plasma urea nitroge n measurement (mass/volume)on 07-05-2022 Urea nitrogen [Mass/Vol] 66 mg/dL - [facility] Work Phone: Thin prep Papanicolaou smear with manual screeningon 07-05-2022 Thin prep Papanicolaou smear with manual screening 11 5-15 [facility] Work Phone: Office Visit (Family Medicin e)on 06-29-2022 Follow-up visit Diagnoses/Problems Secondary dysthymia (300.4) (F34.1) Atrial fibrillation (427.31) (I48.91) Snoring (786.09) (R06.83) Observed sleep apnea (780.57) (G47.30) Orders Atrial fibrillation Cardiology - General Referral Evaluation and Treatment Evaluate AND Treat Status: Active Requested for: [id number] Atrial fibrillation, Observed sleep apnea, Snoring In Lab PSG Sleep Study, 6 years of age and greater; Status:Hold For - Scheduling; Requested for:[id number]; Non-ambulatory,wheelchair ,other physical limitations? : No Ensuresis(prep bed), Technology dependent(Gtube/trach)? : No O2 requirements during the study? : No Additional Precautions: : Atrial fibrillation PSG PRECAUTIONS: Please select any applicable precautions : None COMORBIDITIES : None PSG INDICATIONS : Evaluation/treatment of Obstructive Sleep Apnea [G47.33] Study Type : Diagnostic DM2 (diabetes mellitus, type 2) Renew: Glimepiride 4 MG Oral Tablet; Take 1 tablet twice daily with breakfast and dinner Renew: Janumet XR 50-1000 MG Oral Tablet Extended Release 24 Hour; TAKE 1 TABLET BY MOUTH ONCE DAILY WITH DINNER Insomnia Renew: traZODone HCl - 100 MG Oral Tablet; TAKE one at night Mood disorder, Secondary dysthymia Renew: DULoxetine HCl - 60 MG Oral Capsule Delayed Release Particles; TAKE 2 CAPSULES AT BEDTIME Secondary dysthymia Start: Metoprolol Succinate ER 50 MG Oral Tablet Extended Release 24 Hour; TAKE 1 TABLET DAILY Patient Discussion/Summary Stop taking carvedilol and start taking metoprolol at 50 mg. You can increase up to 75 mg(1/2 tablet) if your heart rate still remains elevated. The goal is to bring your heart rate between 70-90. Chief Complaint medication f/u History of Present Illness Patient is here for follow-up after recent hospital admission. Patient was diagnosed with atrial fibrillation with RVR recently. She was discharged with carvedilol 12.5 mg. Reports that at discharge her pulse rate was at 70. However in the last couple days her pulse rate has been at 140s. Has been feeling extreme shortness of breath with exertion as well. She has not been able to participate in her daily activities well. Reports that she is not able to tolerate carvedilol. Thinks that she has significant side effects from carvedilol. Diastolic blood pressure is elevated today. She does not think she has a follow-up with a ob/gyn doctor. Plan: Switching carvedilol to metoprolol. Also increase in dosage to control the heart rate. On review of her chart her echocardiogram shows her left ventricular ejection fraction is 30%. Getting that it was done after her heart rhythm turned into normal sinus rhythm with rate control. Discussed about fluid restrictions that she needs to follow until further evaluated by cardiology. Referral to cardiology is provided. Recommended to seek immediate medical attention if acute worsening of symptoms. She was initiated on furosemide, Eliquis and Farxiga as well. Diabetes mellitus: Most recent A1c was 8.6. She was transitioned to Janumet at the previous visit due to insurance issues. She was at a started on Farxiga for possible heart failure. This will help with her diabetes as well. We will continue to monitor her blood glucose and pulse rate for now. Obstructive sleep apnea: Partner reports that she snores and possibly has apneic events. He feels tired during the daytime. Plan: Checking for obstructive sleep apnea especially in the setting of atrial fibrillation. In lab sleep study is ordered. Discussed that potentially she will need another sleep study for CPAP titration. Patient expressed understanding. Spent about 40 minutes reviewing her chart, discussing patient in her partner concerns. Follow up in a month. Review of Systems ROS negative except discussed above in HPI. 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) (B36.0) Right shoulder pain (719.41) (M25.511) Secondary dysthymia (300.4) (F34.1) Stage 3a chronic kidney disease (585.3) (N18.31) Tinnitus of both ears (388.30) (H93.13) Surgical History History of Foot surgery Family History Family history of emphysema (V17.6) (Z82.5) Social History Never smoker No recent foreign travel Patient has living will (V49.89) (Z78.9) Allergies ampicillin Recorded By: Jenn Berman; 07/18/2019 5:04:43 PM Bactrim Recorded By: Jenn Berman; 07/18/2019 5:04:43 PM erythromycin Recorded By: Jenn Berman; 07/18/2019 5:04:43 PM Levaquin Recorded By: Jenn Berman; 07/18/2019 5:04:43 PM Additional reactions - nausea, fatigue lisinopril Recorded By: Edgar Berman (more content not included)... Normal [employer] Tobacco Screening.on 022 Tobacco use status CPHS b) No M [facility] Work Phone: Absolute lymphocyte counton 05-19-2022 Lymphocytes Auto (Unsp spec) [#/Vol] 1.97 10*3/uL 0.83-4.51 [facility] Work Phone: Basophil percentageon 2021 Basophil percentage 4.0 mg/dL 2.5-4.9 [facility] Work Phone: Basophils/100 WBC (Bld) 0.3 % 0-1 [facility] Work Phone: Chloride [Moles/Vol] 100 mmol/L 98-[address] [facility] Work Phone: Eosinophils/100 WBC (Bld) 1.6 % 0-5 [facility] Work Phone: Glucose [Mass/Vol] 283 mg/dL 74-106 [facility] Work Phone: Comment on above: Glucose result great er than or equal to 200 mg/dLsuggests DIABETES MELLITUS per A.D.A. criteria. Neutrophils (Bld) [#/Vol] 5.7 10*3/uL 2.0-7.7 [facility] Work Phone: Neutrophils/100 WBC (Bld) 65.7 % 47-70 [facility] Work Phone: Potassium [Moles/Vol] 3.7 mmol/L 3.5-5.1 [facility] Work Phone: Sodium [Moles/Vol] 136 mmol/L 136-145 [facility] Work Phone: WBC (Bld) [#/Vol] 8.7 10*3/uL 4.4-11.0 [facility] Work Phone: Blood erythrocytes count (nu mber/volume)on 05-19-2022 RBC (Bld) [#/Vol] 3.78 10*6/uL 4.2-5.4 [facility] Work Phone: Blood hemoglobin measurement (mass/volume)on 05-19-2022 Hemoglobin (Bld) [Mass/Vol] 11.5 g/dL 12.0-15.0 [facility] [facility] Work Phone: Blood lymphocytes/100 leukoc yteson 05-19-2022 Lymphocytes/100 WBC (Bld) 22.6 % 19-41 [facility] Work Phone: Blood monocytes/100 leukocyt eson 05-19-2022 Monocytes/100 WBC (Bld) 9.5 % 0-10 [facility] Work Phone: Blood platelet mean volumeon 05-19-2022 Platelet mean volume (Bld) [Entitic vol] 9.5 fL 6.2-12.0 [facility] Work Phone: Determination of erythrocyte mean corpuscular volume (MCV)on 05-19-2022 MCV (RBC) [Entitic vol] 94.7 fL 81-99 [facility] Work Phone: Glucose Glucometer (BldC) [M ass/Vol]on 05-19-2022 Glucose [Mass/Vol] 269 mg/dL 74-106 [facility] Work Phone: Comment on above: MANAGEMENT OF PATIEN T CARE PER NURSING PROTOCOL Hematocrit Auto (Bld) [Volum e fraction]on 05-19-2022 Hematocrit (Bld) [Volume fraction] 35.8 % 37-47 [facility] Work Phone: Laboratory - Chemistry and C hemistry - challengeon 05-19-2022 CO2 [Moles/Vol] 28.0 mmol/L 21.0-32.0 [facility] Work Phone: Magnesium [Mass/Vol] 1.7 mg/dL 1.6-2.6 [facility] Work Phone: Urea nitrogen/Creatinine [Mass ratio] 18.3 mg/mg 10-20 [facility] Work Phone: Laboratory - Hematology and Cell countson 05-19-2022 Erythrocyte distribution width (RBC) [Entitic vol] 43.9 fL 35.1-43.9 [facility] Work Phone: Erythrocyte distribution width (RBC) [Ratio] 12.8 % 11.6-14.6 [facility] Work Phone: Immature granulocytes/100 WBC (Bld) 0.300 % 0.0-0.9 [facility] Work Phone: Comment on above: IG% - Immature Granu locytes (promyelocytes, myelocytes and metamyelocytes) > 1% indicates that a LEFT SHIFT is Present. MCH (RBC) [Entitic mass] 30.4 pg 27.0-32.0 [facility] Work Phone: Nucleated RBC/100 WBC (Bld) [Ratio] 0 % 0-5 [facility] Work Phone: MCHC Auto (RBC) [Mass/Vol]on 05-19-2022 MCHC (RBC) [Mass/Vol] 32.1 g/dL 32-36 [facility] Work Phone: No Panel Informationon 05-19 Estimated Creatinine Clearance Calc 36.38 ml/min [facility] Work Phone: Estimated GFR (MDRD) Amer 48 mL/min >60 [facility] Work Phone: Comment on above: GFR Calc Estimated GFR (MDRD) Non-Af Amer 40 mL/min >60 [facility] Work Phone: Comment on above: Non- GFR Calc Platelets bldon 05-19-2022 Platelets (Bld) [#/Vol] 300 10*3/uL 150-450 [facility] Work Phone: Serum or plasma calcium paul urement (mass/volume)on 05-19-2022 Calcium [Mass/Vol] 9.0 mg/dL 8.5-10.1 [facility] Work Phone: Serum or plasma creatinine m easurement (mass/volume)on 05-19-2022 Creatinine [Mass/Vol] 1.42 mg/dL 0.55-1.02 [facility] Work Phone: Comment on above: The validity of the calculated GFR & GFRAA in patients over 70 years has not been determined. Clinical correlation is essential. Serum or plasma urea nitroge n measurement (mass/volume)on 05-19-2022 Urea nitrogen [Mass/Vol] 26 mg/dL 7-18 [facility] Work Phone: Thin prep Papanicolaou smear with manual screeningon 05-19-2022 Thin prep Papanicolaou smear with manual screening 8 5-15 [facility] Work Phone: Basophil percentageon 2021 Bilirubin [Mass/Vol] 0.60 mg/dL 0.20-1.00 [facility] Work Phone: Comment on above: For patients on eltr ombopag therapy, use of Dimension [place] TBIL is not recommended. Cholesterol [Mass/Vol] 136 mg/dL <200 [facility] Work Phone: Comment on above: <200 mg/dL Desirable 200-240 mg/dL Borderline >240 mg/dL High Risk Protein [Mass/Vol] 6.5 g/dL 6.4-8.2 [facility] Work Phone: Triglyceride [Mass/Vol] 118 mg/dL <199 [facility] Work Phone: Comment on above: The drugs N-Acetylcy steine and Metamizole may falsely depress this assay.Serum Triglycerides Reference Interval Normal <150 mg/dL Borderline high 150 - 199 mg/dL High 200 - 499 mg/dL Very High > or = 500 mg/dL Laboratory - Chemistry and C hemistry - challengeon 05-18-2022 ALP [Catalytic activity/Vol] 71 U/L 45-117 [facility] Work Phone: ALT [Catalytic activity/Vol] 36 U/L 13-56 [facility] Work Phone: Globulin (S) [Mass/Vol] 3.6 g/dL 2.2-4.2 [facility] Work Phone: No Panel Informationon 05-18 Troponin I High Sensitivity 42 pg/mL 3.0-54.0 [facility] Work Phone: Comment on above: Please Note: New Riya t Units and Gender Specific Reference Ranges. For more information see Policy Stat Procedure [place] High Sensitivity Troponin (TNIH) and attachments. Serum or plasma albumin paul urement (mass/volume)on 05-18-2022 Albumin [Mass/Vol] 2.9 g/dL 3.2-5.0 [facility] Work Phone: Serum or plasma albumin/glob ulin mass ratioon 05-18-2022 Albumin/Globulin [Mass ratio] 0.8 {ratio} 0.9-2.4 [facility] Work Phone: Serum or plasma cholesterol in HDL measurement (mass/volume)on 05-18-2022 Cholesterol in HDL [Mass/Vol] 40 mg/dL >40 [facility] Work Phone: Comment on above: The drugs N-Acetylcy steine and Metamizole may falsely depress this assay. Reference Range HDL <40 mg/dL Low HDL Cholesterol HDL >or= 60 mg/dL High HDL Cholesterol Serum or plasma cholesterol in VLDL measurement (mass/volume)on 05-18-2022 Cholesterol in VLDL [Mass/Vol] 24 mg/dL 5-40 [facility] Work Phone: Serum or plasma low density lipoprotein (LDL) cholesterol measurement (mass/volume)on 05-18-2022 Cholesterol in LDL [Mass/Vol] 72 mg/dL 0-130 [facility] Work Phone: Thin prep Papanicolaou smear with manual screeningon 05-18-2022 Thin prep Papanicolaou smear with manual screening 16 U/L 15-37 [facility] Work Phone: Whole blood hemoglobin A1c/t otal hemoglobin ratio (mass fraction)on 05-18-2022 HbA1c (Bld) [Mass fraction] 8.7 % 3.8-5.6 [facility] Work Phone: Comment on above: Normal < 5.7 % Predi abetic 5.7 - 6.4 % Diabetic >or= 6.5 % Please note range changes. Absolute lymphocyte counton 05-17-2022 Lymphocytes Auto (Unsp spec) [#/Vol] 2.44 10*3/uL 0.83-4.51 [facility] Work Phone: Basophil percentageon 2021 Basophils/100 WBC (Bld) 0.6 % 0-1 [facility] Work Phone: Bilirubin [Mass/Vol] 0.30 mg/dL 0.20-1.00 [facility] Work Phone: Comment on above: For patients on eltr ombopag therapy, use of Dimension [place] TBIL is not recommended. Chloride [Moles/Vol] 101 mmol/L 98-107 [facility] Work Phone: Eosinophils/100 WBC (Bld) 0.7 % 0-5 [facility] Work Phone: Glucose [Mass/Vol] 309 mg/dL 74-106 [facility] Work Phone: Comment on above: Glucose result great er than or equal to 200 mg/dLsuggests DIABETES MELLITUS per A.D.A. criteria. Neutrophils (Bld) [#/Vol] 7.3 10*3/uL 2.0-7.7 [facility] Work Phone: Neutrophils/100 WBC (Bld) 67.8 % 47-70 [facility] Work Phone: Potassium [Moles/Vol] 4.4 mmol/L 3.5-5.1 [facility] Work Phone: Protein [Mass/Vol] 7.3 g/dL 6.4-8.2 [facility] Work Phone: Sodium [Moles/Vol] 136 mmol/L 136-145 [place] [facility] Work Phone: WBC (Bld) [#/Vol] 10.7 10*3/uL 4.4-11.0 [facility] Work Phone: Blood erythrocytes count (nu mber/volume)on 05-17-2022 RBC (Bld) [#/Vol] 3.94 10*6/uL 4.2-5.4 [facility] Work Phone: Blood hemoglobin measurement (mass/volume)on 05-17-2022 Hemoglobin (Bld) [Mass/Vol] 12.2 g/dL 12.0-15.0 [facility] Work Phone: Blood lymphocytes/100 leukoc yteson 05-17-2022 Lymphocytes/100 WBC (Bld) 22.8 % 19-41 [facility] Work Phone: Blood monocytes/100 leukocyt eson 05-17-2022 Monocytes/100 WBC (Bld) 7.9 % 0-10 [facility] Work Phone: Blood platelet mean volumeon 05-17-2022 Platelet mean volume (Bld) [Entitic vol] 9.6 fL 6.2-12.0 [facility] Work Phone: Determination of erythrocyte mean corpuscular volume (MCV)on 05-17-2022 MCV (RBC) [Entitic vol] 96.7 fL 81-99 [facility] Work Phone: Hematocrit Auto (Bld) [Volum e fraction]on 05-17-2022 Hematocrit (Bld) [Volume fraction] 38.1 % 37-47 [facility] Work Phone: INR in Blood by Coagulation assayon 05-17-2022 INR Coag (Bld) [Relative time] 1.2 {INR} [facility] Work Phone: Laboratory - Chemistry and C hemistry - challengeon 05-17-2022 ALP [Catalytic activity/Vol] 87 U/L 45-117 [facility] Work Phone: ALT [Catalytic activity/Vol] 40 U/L 13-56 [facility] Work Phone: CO2 [Moles/Vol] 28.0 mmol/L 21.0-32.0 [facility] Work Phone: Globulin (S) [Mass/Vol] 3.9 g/dL 2.2-4.2 [facility] Work Phone: Magnesium [Mass/Vol] 1.8 mg/dL 1.6-2.6 [facility] Work Phone: Urea nitrogen/Creatinine [Mass ratio] 15.6 mg/mg 10-20 [facility] Work Phone: Laboratory - Coagulationon 0 05-17-2022 aPTT Coag (Bld) [Time] 34.5 s 24.1-36.2 [facility] Work Phone: PT Coag (PPP) [Time] 14.4 s 11.7-14.9 [facility] Work Phone: Laboratory - Hematology and Cell countson 05-17-2022 Erythrocyte distribution width (RBC) [Entitic vol] 44.8 fL 35.1-43.9 [facility] Work Phone: Erythrocyte distribution width (RBC) [Ratio] 12.9 % 11.6-14.6 [facility] Work Phone: Immature granulocytes/100 WBC (Bld) 0.200 % 0.0-0.9 [facility] Work Phone: [phone] Comment on above: IG% - Immature Granu locytes (promyelocytes, myelocytes and metamyelocytes) > 1% indicates that a LEFT SHIFT is Present. MCH (RBC) [Entitic mass] 31.0 pg 27.0-32.0 [facility] Work Phone: Nucleated RBC/100 WBC (Bld) [Ratio] 0 % 0-5 [facility] Work Phone: MCHC Auto (RBC) [Mass/Vol]on 05-17-2022 MCHC (RBC) [Mass/Vol] 32.0 g/dL 32-36 [facility] Work Phone: No Panel Informationon 05-17 Estimated Creatinine Clearance Calc 30.93 ml/min [facility] Work Phone: Estimated GFR (MDRD) Amer 42 mL/min >60 [facility] Work Phone: Comment on above: GFR Calc Estimated GFR (MDRD) Non-Af Amer 35 mL/min >60 [facility] Work Phone: Comment on above: Non- GFR Calc Thyroid Stimulating Hormone (TSH) 1.15 uIU/mL 0.358-3.74 [facility] Work Phone: Troponin I High Sensitivity 43 pg/mL 3.0-54.0 [facility] Work Phone: Comment on above: Please Note: New Riya t Units and Gender Specific Reference Ranges. For more information see Policy Stat Procedure [place] High Sensitivity Troponin (TNIH) and attachments. Platelets bldon 05-17-2022 Platelets (Bld) [#/Vol] 331 10*3/uL 150-450 [facility] Work Phone: Serum or plasma albumin paul urement (mass/volume)on 05-17-2022 Albumin [Mass/Vol] 3.4 g/dL 3.2-5.0 [facility] Work Phone: Serum or plasma albumin/glob ulin mass ratioon 05-17-2022 Albumin/Globulin [Mass ratio] 0.9 {ratio} 0.9-2.4 [facility] Work Phone: Serum or plasma calcium paul urement (mass/volume)on 05-17-2022 Calcium [Mass/Vol] 8.9 mg/dL 8.5-10.1 [facility] Work Phone: Serum or plasma creatinine m easurement (mass/volume)on 05-17-2022 Creatinine [Mass/Vol] 1.60 mg/dL 0.55-1.02 [facility] Work Phone: Comment on above: The validity of the calculated GFR & GFRAA in patients over 70 years has not been determined. Clinical correlation is essential. Serum or plasma urea nitroge n measurement (mass/volume)on 05-17-2022 Urea nitrogen [Mass/Vol] 25 mg/dL 7-18 [facility] Work Phone: Thin prep Papanicolaou smear with manual screeningon 05-17-2022 Thin prep Papanicolaou smear with manual screening 21 U/L 15-37 [facility] Work Phone: Thin prep Papanicolaou smear with manual screening 7 5-15 [facility] Work Phone[facility] Follow-up visit Diagnoses/Problems Low libido (799.81) (R68.82) DM2 (diabetes mellitus, type 2) (250.00) (E11.9) Orders DM2 (diabetes mellitus, type 2) Renew: Fingerstix Lancets; CHECK BLOOD SUGAR DAILY Hemoglobin A1C; Status:Active; Requested for:[id number]; Renew: OneTouch Ultra In Vitro Strip; check blood sugar once a day Hemoglobin A1C; Status:In Progress - Order Generated; Requested for:Recurring Schedule: 05/03/2022; 08/03/2022; 11/03/2022 ; Low libido Start: Sildenafil Citrate 50 MG Oral Tablet; TAKE 1 TABLET DAILY 1 HOUR BEFORE NEEDED Chief Complaint pt. would like rx for low libido. An interactive audio and video telecommunication system which permits real time communications between the patient (at the originating site) and provider (at the distant site) was utilized to provide this telehealth service. Verbal consent was requested and obtained from CAMILLE DAWKINS on this date, 05/03/2022 03:20 PM , for a telehealth visit. History of Present Illness Patient is here for medchk and acute concerns. Acute concerns: Low libido: starting Sildenafil to be taken as needed. Shoulder pain: patient reports that her shoulder pain is worsening. Appears to be OA. discussed potential interventions including PT, joint injection or ortho. Addendum with results: Xray shoulder- AC joint arthritis. Offered options of PT, injection or ortho. Patient will let us know. DM: Most recent A1c was 8.6. Currently taking Metformin glimepiride. Has been taking metformin and glimepiride. She was started on Victoza at the previous visit. However due to the insurance did not cover this medication. It is over thousand dollars so she was not able to start this medication. Continues to have high blood glucose levels. Other alternative medications were explored. Alogliptin may be covered and/or cheaper alternative. Discussed about the potential side-effects. Assess A1c now and before the next appointment. Janumet was started due to insurance issues not covering Alogliptin as well. Creatinine elevated. endorses polydipsia and polyuria- likely due to hyperglycemia. Follow up in a month. Review of Systems ROS negative except discussed above in HPI. 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) (B36.0) Right shoulder pain (719.41) (M25.511) Secondary dysthymia (300.4) (F34.1) Stage 3a chronic kidney disease (585.3) (N18.31) Tinnitus of both ears (388.30) (H93.13) Surgical History History of Foot surgery Family History Family history of emphysema (V17.6) (Z82.5) Social History Never smoker No recent foreign travel Patient has living will (V49.89) (Z78.9) Allergies ampicillin Recorded By: Jenn Berman; 07/18/2019 5:04:43 PM Bactrim Recorded By: Jenn Berman; 07/18/2019 5:04:43 PM erythromycin Recorded By: Jenn Berman; 07/18/2019 5:04:43 PM Levaquin Recorded By: Jenn Berman; 07/18/2019 5:04:43 PM Additional reactions - nausea, fatigue lisinopril Recorded By: Jenn Berman; 07/18/2019 5:04:43 PM Opticrom Recorded By: Jenn Berman; 07/18/2019 5:04:43 PM Additional reactions - severe burning of eyes oxycodone Recorded By: Jenn Berman; 07/18/2019 5:04:43 PM Additional reactions - Doxycycline Penicillins Recorded By: Jenn Berman; 07/18/2019 5:04:43 PM Current Meds Medication NameInstructionReason Alcohol Pads 70 % PadUse prior to checking blood sugar dailyDM2 (diabetes mellitus, type 2) Alogliptin Benzoate 6.25 MG Oral TabletTAKE 1 TABLET BY MOUTH ONCE DAILYDM2 (diabetes mellitus, type 2) Blood Glucose Monitor System w/Device Kitcheck blood sugar once a dayDM2 (diabetes mellitus, type 2) Blood Glucose Test In Vitro Stripcheck blood sugar once a dayDM2 (diabetes mellitus, type 2) Fingerstix LancetsCHECK BLOOD SUGAR DAILYDM2 (diabetes mellitus, type 2) Glimepiride 4 MG Oral TabletTake 1 tablet twice daily with breakfast and dinner.DM2 (diabetes mellitus, type 2) Janumet XR 50-1000 MG Oral Tablet Extended Release 24 HourTAKE 1 TABLET BY MOUTH ONCE DAILY WITH DINNERDM2 (diabetes mellitus, type 2) metFORMIN HCl - 1000 MG Oral TabletTAKE 1 TABLET TWICE DAILY.DM2 (diabetes mellitus, type 2) SUMAtriptan Succinate 50 MG Oral TabletTAKE 1 TABLET FOR MIGRAINE RELIEF. MAY REPEAT EVERY 2 HOURS. MAX 200MG/DAY.Headache, migraine Losartan Potassium 100 MG Oral TabletTAKE 1 TABLET DAILY.HTN (hypertension) Triamterene-HCTZ 37.5-25 MG Oral TabletTake 1 tablet dailyHTN (hypertension) traZODone HCl - 100 MG Oral TabletTAKE one at nightInsomnia DULoxetine HCl - 60 MG Oral Capsule Delayed Release ParticlesTAKE 2 CAPSULES AT BEDTIME.Mood (more content not included)... Normal Touchworks .GFRon 04-12-2022 GFR Non- 40 ml/min/1.73sqm Normal [facility] ([place]) Comment on above: Result Comment: GFR Population mean for , Non- Americans Ages 20-29 = 116 mL/min/1.73 sq.m. Ages 30-39 = 107 mL/min/1.73 sq.m. Ages 40-49 = 99 mL/min/1.73 sq.m. Ages 50-59 = 93 mL/min/1.73 sq.m. Ages 60-69 = 85 mL/min/1.73 sq.m. Ages 70+ = 75 mL/min/1.73 sq.m. Chronic Kidney Disease: Less than 60 mL/min/1.73 square meters End Stage Renal Disease: Less than 15 mL/min/1.73 square meters Performed By: #### E 2 #### [place] [address] #### CMP, FT4, GFR, TSH #### [place] [address] [address] GFR 48 ml/min/1.73sqm Normal [facility] ([place]) Comment on above: Result Comment: GFR Population mean for , Non- Americans Ages 20-29 = 116 mL/min/1.73 sq.m. Ages 30-39 = 107 mL/min/1.73 sq.m. Ages 40-49 = 99 mL/min/1.73 sq.m. Ages 50-59 = 93 mL/min/1.73 sq.m. Ages 60-69 = 85 mL/min/1.73 sq.m. Ages 70+ = 75 mL/min/1.73 sq.m. Chronic Kidney Disease: Less than 60 mL/min/1.73 square meters End Stage Renal Disease: Less than 15 mL/min/1.73 square meters Performed By: #### E 2 #### [place] [address] #### CMP, FT4, GFR, TSH #### [address] [address] A1Con 04-12-2022 HbA1c (Bld) [Mass fraction] 8.6 % High 4.3-6.4 [facility] ([place]) Comment on above: Performed By: #### A 1C #### [address] [address] [facility] Albumin Level 3.8 G/dL Normal 3.4-4.8 [facility] ([place]) Comment on above: Performed By: #### E 2 #### [place] [address] #### CMP, FT4, GFR, TSH #### [address] [address] Albumin/Globulin [Mass ratio] 1.2 {ratio} Normal 1.1-2.5 [facility] ([place]) Comment on above: Performed By: #### E 2 #### [place] [address] #### CMP, FT4, GFR, TSH #### [address] [address] ALP [Catalytic activity/Vol] 83 U/L Normal 40-135 [facility] ([place]) Comment on above: Performed By: #### E 2 #### [place] [address] #### CMP, FT4, GFR, TSH #### [address] [address] ALT [Catalytic activity/Vol] 27 U/L Normal 14-59 [facility] ([place]) Comment on above: Performed By: #### E 2 #### [place] [address] #### CMP, FT4, GFR, TSH #### [address] [address] AST [Catalytic activity/Vol] 15 U/L Normal 10-40 [facility] ([place]) Comment on above: Performed By: #### E 2 #### [place] [address] #### CMP, FT4, GFR, TSH #### [address] [address] Bili Total 0.6 mg/dL Normal 0.2-1.0 [facility] ([place]) Comment on above: Result Comment: Use of this assay is not recommended for patients undergoing treatment with eltrombopag due to the potential for falsely elevated results. Performed By: #### E 2 #### [place] [address] #### CMP, FT4, GFR, TSH #### [address] [address] BUN/Creatinine Ratio 24 ratio Normal 7-27 [facility] ([place]) Comment on above: Performed By: #### E 2 #### [place] [address] #### CMP, FT4, GFR, TSH #### [address] [address] Calcium [Mass/Vol] 9.1 mg/dL Normal 8.4-10.2 [facility] ([place]) Comment on above: Performed By: #### E 2 #### [place] [address] #### CMP, FT4, GFR, TSH #### [address] [address] Chloride [Moles/Vol] 99 mmol/L Normal 98-107 [facility] ([place]) Comment on above: Performed By: #### E 2 #### [place] [address] #### CMP, FT4, GFR, TSH #### [address] [address] CO2 [Moles/Vol] 30 mmol/L Normal 23-31 [facility] ([place]) Comment on above: Performed By: #### E 2 #### [place] [address] #### CMP, FT4, GFR, TSH #### [address] [address] Creatinine [Mass/Vol] 1.35 mg/dL High 0.55-1.02 [facility] ([place]) Comment on above: Performed By: #### E 2 #### [place] [address] #### CMP, FT4, GFR, TSH #### [address] [address] Electrolyte Balance 6.0 mEq/L Normal 4.0-15.0 [facility] ([place]) Comment on above: Performed By: #### E 2 #### [place] [address] #### CMP, FT4, GFR, TSH #### [address] [address] Globulin 3.3 G/dL Normal [facility] ([place]) Comment on above: Performed By: #### E 2 #### [place] [address] #### CMP, FT4, GFR, TSH #### [address] [address] Glucose [Mass/Vol] 235 mg/dL High 80-115 [facility] ([place]) Comment on above: Performed By: #### E 2 #### [place] [address] #### CMP, FT4, GFR, TSH #### [address] [address] Potassium [Moles/Vol] 4.9 mmol/L Normal 3.5-5.1 [facility] ([place]) Comment on above: Performed By: #### E 2 #### [place] [address] #### CMP, FT4, GFR, TSH #### [address] [address] Sodium [Moles/Vol] 135 mmol/L Low 136-145 [facility] ([place]) Comment on above: Performed By: #### E 2 #### [place] [address] #### CMP, FT4, GFR, TSH #### [address] [address] Total Protein 7.1 G/dL Normal 6.4-8.2 [facility] ([place]) Comment on above: Performed By: #### E 2 #### [place] [address] #### CMP, FT4, GFR, TSH #### [address] [address] Urea nitrogen [Mass/Vol] 33 mg/dL High 7-18 [facility] ([place]) Comment on above: Performed By: #### E 2 #### [place] [address] #### CMP, FT4, GFR, TSH #### [address] [address] E2on 04-12-2022 Estradiol Level 12.16 pg/mL Normal [facility] ([place]) Comment on above: Result Comment: No te - New Reference Range in effect 20 Adult Female E2 Reference Ranges: Follicular phase 19.5 - 144.2 pg/mL Midcycle 63.9 - 356.7 pg/mL Luteal phase 55.8 - 214.2 pg/mL Post menopausal 0 - 33.2 pg/mL Performed By: #### E 2 #### [place] [address] #### CMP, FT4, GFR, TSH #### [address] [address] FT4on 04-12-2022 Free T4 [Mass/Vol] 1.06 ng/dL Normal 0.76-1.46 [facility] ([place]) Comment on above: Performed By: #### E 2 #### [place] [address] #### CMP, FT4, GFR, TSH #### [place] [address] [place], [place] [address] TSHon 04-12-2022 TSH Qn 1.14 m[IU]/L Normal 0.36-3.74 [facility] ([place]) Comment on above: Performed By: #### E 2 #### [place] [address] #### CMP, FT4, GFR, TSH #### [place] [address] [place], [place] [address] XR SHOULDER MINIMUM 2 VIEWS RIGHTon 04-12-2022 XR SHOULDER MINIMUM 2 VIEWS RIGHT ORIGINAL EXAMINATION: 4 XRAY VIEWS OF THE RIGHT SHOULDER04/12/2022 8:45 am COMPARISON: None. HISTORY: ORDERING SYSTEM PROVIDED HISTORY: Reason for Exam: pain in right shoulder FINDINGS: No fracture or dislocation is identified. There are no abnormal periarticular calcifications. Mild degenerative changes are present at the acromioclavicular joint. The included thoracic structures are normal. IMPRESSION: No acute fracture or dislocation. Mild acromioclavicular degenerative changes Interpreted by: Judson Pacheco MD Preliminary Report By: Judson Pacheco MD Electronically signed By Judson Pacheco MD Dictated Date: 04/12/2022 9:10:16 AM Prelim Date: 04/12/2022 9:10:58 AM Sign Date: 04/12/2022 9:10:58 AM Ordering Provider: NANDO ESPOSITO [facility] ([place]) Office Visit (Family Samantha rubin)on 04-05-2022 Follow-up visit Diagnoses/Problems Right shoulder pain (719.41) (M25.511) Pityriasis versicolor (111.0) (B36.0) DM2 (diabetes mellitus, type 2) (250.00) (E11.9) Stage 3a chronic kidney disease (585.3) (N18.31) HTN (hypertension) (401.9) (I10) Low libido (799.81) (R68.82) Mood disorder (296.90) (F39) Orders DM2 (diabetes mellitus, type 2) Start: Alogliptin Benzoate 6.25 MG Oral Tablet; TAKE 1 TABLET BY MOUTH ONCE DAILY Hemoglobin A1C; Status:Active; Requested for:[id number]; HTN (hypertension) Lipid Panel; Status:Active; Requested for:[id number]; Low libido Estradiol, Free and Total; Status:Active; Requested for:[id number]; Low libido, Mood disorder TSH WITH REFLEX TO FREE T4 IF ABNORMAL; Status:Active; Requested for:[id number]; Pityriasis versicolor Start: LamISIL AT Jock Itch 1 % External Cream; APPLY 2-3 TIMES DAILY TO AFFECTED AREA UNTIL THE LESION RESOLVES Right shoulder pain Xray Shoulder Complete Min 2 Views; Status:Hold For - Scheduling; Requested for:[id number]; Laterality : Right Radiologist to Determine Optimal Study : Y What are the patient's signs and symptoms? : recent injury to the right shoulder area; horse bite/lifted her with bite. Stage 3a chronic kidney disease Comprehensive Metabolic Panel; Status:Active; Requested for:[id number]; Chief Complaint med check, pt. c/o pain in R upper arm after horse bite x4 weeks. History of Present Illness Patient is here for medchk and acute concerns. Patient reports that she has sustained a recent injury from a horse bite. Reports that the injury occurred about 4 weeks ago. She was seen in the urgent care and was started on antibiotics. Reports that she continues to have swelling in her right upper extremity in the area of bite. Reports that she continues to have tenderness as well. Has normal range of motion in the arm. However she started to develop tingling sensation in her right hand. This wakes her up from the sleep. This can happen with activity and at rest. Plan: We will assist with conservative measures including warm compresses. And symptoms appears to be from carpal tunnel syndrome. Discussed about interventions to help with his symptoms. Close follow-up to reassess. If no improvement in symptoms will consider further evaluation. Pityriasis versicolor: Patient reports that she has recently started to notice discoloration in her bilateral upper extremities. Denies significant otherwise symptoms. Denies family history of vitiligo. Has been exposed to sun more recently. Plan: Differential could be. Cyst versicolor versus vitiligo. Given that there is mild pigmentation still favor pityriasis versicolor we will treat for pityriasis versicolor to see if this improves her symptoms. If no improvement further evaluation can be considered. Anger, Anxiety: Takes Cymbalta regularly. Feels like it is helping her symptoms. She is less irritable and mood feels better. Insomnia: taking Cymbalta at night as well. Feels like this along with Trazodone and feels like this combination is working best for her. DM2: Most recent A1c was 9.7. Currently taking Metformin glimepiride. Has been taking metformin and glimepiride. She was started on Victoza at the previous visit. However due to the insurance did not cover this medication. It is over thousand dollars so she was not able to start this medication. Continues to have high blood glucose levels. Other alternative medications were explored. Alogliptin may be covered and/or cheaper alternative. Discussed about the potential side-effects. Assess A1c now and before the next appointment. Patient's insurance did not approve Alogliptin. Starting Janumet XR as it is approved alternative per the [place] paperwork. 1 Migraine: NO recent flare ups. HTN: Does not check her blood pressure regularly. However denies chest pain palpitations or shortness of breath. Takes her medications regularly. More than 40 minutes were spent in coordination of care. Including chart review, review previous results(5 minutes), discuss multiple above clinic symptoms+conditions(30 minutes) and completing notes(7 minutes). Addendum with results: Xray shoulder- AC joint arthritis. Offered options of PT, injection or ortho. Patient will let us know. DM: Will start Janumet as discussed above. Creatinine elevated. endorses polydipsia and polyuria- likely due to hyperglycemia. 1 Follow up in a month. 1 Amended By: Nando Esposito; Apr 23 2022 9:32 AM ESTReview of Systems ROS negative except discussed above in HPI. Active Problems Breast cancer screening by mammogram (V76.12) (Z12.31) DM2 (diabetes mellitus, type 2) (250.00) (E11.9) Elevated WBC count (288.60) (D72.829) Headache, migraine (346.90) (G43.909) HTN (hypertension) (401.9) (I10) Insomnia (780.52) (G47.00) Menopausal symptoms (627.2) (N95.1) Mood disorder (296.90) (F39) Obesity (BMI 30-39.9) (278.00) (E66.9) Secondary dysthymia (300.4) (F34.1) Stage 3a chronic kidney disease (585.3) ( (more content not included)... Normal [facility] Tobacco Screening.on 022 Fall risk assessment a) No falls within the last year [facility] Work Phone: Tobacco use status [facility] b) No [facility] Work Phone: Laboratory - Hematology and Cell countson 06-12-2021 HbA1c (Bld) [Mass fraction] 9.7 % [facility] Work Phone: COVID-19 virus antigen assay SARS-CoV-2 (COVID-19) Ag IA.rapid Ql (Resp) [facility] Work Phone: SARS-CoV-2 (COVID-19) Ag IA. rapid Ql (Resp) SARS-CoV-2 Antigen (Rapid) SARS-CoV-2 (COVID 19) [facility] Work Phone: Vital Signs Date Time Vital Sign Value Performing Clinician Facility 10-21-2023 14:03-0500 Body height 160.[address] Nando Esposito Work Phone: [facility] 10-21-2023 14:03-0500 Body mass index (BMI) [Ratio] 38.7 kg/m2 Dr. Nando Esposito Work Phone: [facility] 10-21-2023 14:03-0500 Body temperature 16 [degF] Dr. Nando Esposito Work Phone: [facility] 10-21-2023 14:03-0500 Body weight 99.[address] Nando Esposito Work Phone: [facility] 10-21-2023 14:03-0500 Diastolic blood pressure 86 mm[Hg] Dr. Nando Esposito Work Phone: [facility] 10-21-2023 14:03-0500 Heart rate 52 /min Dr. Nando Esposito Work Phone: [facility] 10-21-2023 14:03-0500 Respiratory rate 16 /min Dr. Nando Esposito Work Phone: [facility] 10-21-2023 14:03-0500 SaO2% (BldA) [Mass fraction] 96 % Dr. Nando Esposito Work Phone: [facility] 10-21-2023 14:03-0500 Systolic blood pressure 136 mm[Hg] Dr. Nando Esposito Work Phone: [facility] 08-18-2023 13:25-0500 Body height 160.[address] Nando Esposito Work Phone: [facility] 08-18-2023 13:25-0500 Body mass index (BMI) [Ratio] 38 kg/m2 Dr. Nando Esposito Work Phone: [facility] 08-18-2023 13:25-0500 Body temperature 98.1 [degF] Dr. Nando Esposito Work Phone: [facility] 08-18-2023 13:25-0500 Body weight 97.[address] Nando Esposito Work Phone: [facility] 08-18-2023 13:25-0500 Diastolic blood pressure 70 mm[Hg] Dr. Nando Esposito Work Phone: [facility] 08-18-2023 13:25-0500 Heart rate 60 /min Dr. Nando Esposito Work Phone: [facility] 08-18-2023 13:25-0500 SaO2% (BldA) [Mass fraction] 91 % Dr. Nando Esposito Work Phone: [facility] 08-18-2023 13:25-0500 Systolic blood pressure 118 mm[Hg] Dr. Nando Esposito Work Phone: [facility] 08-15-2023 07:27-0500 Body mass index (BMI) [Ratio] 37.5 kg/m2 Dr. Nando Esposito Work Phone: [facility] 08-15-2023 07:27-0500 Body temperature 96 [degF] Dr. Nando Esposito Work Phone: [facility] 08-15-2023 07:27-0500 Body weight 96.[address] Nando Esposito Work Phone: [facility] 08-15-2023 07:27-0500 Diastolic blood pressure 71 mm[Hg] Dr. Nando Esposito Work Phone: [facility] 08-15-2023 07:27-0500 Heart rate 58 /min Dr. Nando Esposito Work Phone: [facility] 08-15-2023 07:27-0500 Respiratory rate 18 /min Dr. Nando Esposito Work Phone: [facility] 08-15-2023 07:27-0500 SaO2% (BldA) [Mass fraction] 93 % Dr. Nando Esposito Work Phone: [facility] 08-15-2023 07:27-0500 Systolic blood pressure 125 mm[Hg] Dr. Nando Esposito Work Phone: [facility] 08-01-2023 07:19-0500 Diastolic blood pressure 66 mm[Hg] Dr. Nando Esposito Work Phone: [facility] 08-01-2023 07:19-0500 Heart rate 63 /min Dr. Nando Esposito Work Phone: [facility] 08-01-2023 07:19-0500 Respiratory rate 14 /min Dr. Nando Esposito Work Phone: [facility] 08-01-2023 07:19-0500 SaO2% (BldA) [Mass fraction] 99 % Dr. Nando Esposito Work Phone: [facility] 08-01-2023 07:19-0500 Systolic blood pressure 136 mm[Hg] Dr. Nando Esposito Work Phone: [facility] 08-01-2023 02:20-0500 Body height 160.[address] Nando Esposito Work Phone: [facility] 08-01-2023 02:20-0500 Body mass index (BMI) [Ratio] 36.9 kg/m2 Dr. Nando Esposito Work Phone: [facility] 08-01-2023 02:20-0500 Body temperature 97.2 [degF] Dr. Nando Esposito Work Phone: [facility] 08-01-2023 02:20-0500 Body weight 94.[address] Nando Esposito Work Phone: [facility] 07-25-2023 20:01-0500 Heart rate 77 /min Dr. Nando Esposito Work Phone: [facility] 07-25-2023 19:50-0500 Inhaled oxygen concentration 99 % Dr. Nando Esposito Work Phone: [facility] 07-25-2023 19:50-0500 Respiratory rate 16 /min Dr. Nando Esposito Work Phone: [facility] 07-25-2023 19:41-0500 Body mass index (BMI) [Ratio] 36.1 kg/m2 Dr. Nando Esposito Work Phone: [facility] 07-25-2023 19:39-0500 Body temperature 97.5 [degF] Dr. Nando Esposito Work Phone: [facility] 07-25-2023 19:39-0500 Diastolic blood pressure 55 mm[Hg] Dr. Nando Esposito Work Phone: [facility] 07-25-2023 19:39-0500 SaO2% (BldA) [Mass fraction] 100 % Dr. Nando Epsosito Work Phone: [facility] 07-25-2023 19:39-0500 Systolic blood pressure 121 mm[Hg] Dr. Nando Espoisto Work Phone: [facility] 07-22-2023 09:00-0500 Body weight 92.[address] Nando Esposito Work Phone: [facility] 07-13-2023 15:06-0400 Body height 159.[address] Nando Esposito Work Phone: [facility] 07-05-2023 12:00-0400 Body temperature 98 [degF] Dr. Nando Esposito Work Phone: [facility] 07-05-2023 12:00-0400 Diastolic blood pressure 78 mm[Hg] Dr. Nando Esposito Work Phone: [facility] 07-05-2023 12:00-0400 Heart rate 77 /min Dr. Nando Esposito Work Phone: [facility] 07-05-2023 12:00-0400 Respiratory rate 16 /min Dr. Nando Esposito Work Phone: [facility] 07-05-2023 12:00-0400 SaO2% (BldA) [Mass fraction] 100 % Dr. Nando Esposito Work Phone: [facility] 07-05-2023 12:00-0400 Systolic blood pressure 146 mm[Hg] Dr. Nando Esposito Work Phone: [facility] 07-02-2023 08:16-0400 Body height 160.[address] Nando Esposito Work Phone: [facility] 07-02-2023 08:16-0400 Body weight 95.[address] Nando Esposito Work Phone: [facility] 06-21-2023 14:00-0400 Inhaled oxygen flow rate 2 L/min Dr. Nando Esposito Work Phone: [facility] 06-21-2023 03:14-0400 Body mass index (BMI) [Ratio] 37.4 kg/m2 Dr. Nando Esposito Work Phone: [facility] 06-16-2023 10:00-0400 Body mass index (BMI) [Ratio] 38 kg/m2 Dr. Nando Esposito Work Phone: [facility] 06-16-2023 10:00-0400 Body weight 100.[address] Nando Esposito Work Phone: [facility] 06-09-2023 08:53-0400 Body height 162.[address] Nando Esposito Work Phone: [facility] 06-09-2023 08:53-0400 Body mass index (BMI) [Ratio] 36.8 kg/m2 Dr. Nando Esposito Work Phone: [facility] 06-09-2023 08:53-0400 Body temperature 97.6 [degF] Dr. Nando Esposito Work Phone: [facility] 06-09-2023 08:53-0400 Body weight 97.[address] Nando Esposito Work Phone: [facility] 06-09-2023 08:53-0400 Diastolic blood pressure 75 mm[Hg] Dr. Nando Esposito Work Phone: [facility] 06-09-2023 08:53-0400 Heart rate 65 /min Dr. Nando Esposito Work Phone: [facility] 06-09-2023 08:53-0400 Respiratory rate 14 /min Dr. Nando Esposito Work Phone: [facility] 06-09-2023 08:53-0400 SaO2% (BldA) [Mass fraction] 98 % Dr. Nando Esposito Work Phone: [facility] 06-09-2023 08:53-0400 Systolic blood pressure 163 mm[Hg] Dr. Nando Esposito Work Phone: [facility] 06-07-2023 14:05-0400 Body mass index (BMI) [Ratio] 38.6 kg/m2 Dr. Nando Esposito Work Phone: [facility] 06-07-2023 14:05-0400 Body weight 98.[address] Nando Esposito Work Phone: [facility] 06-07-2023 14:05-0400 Diastolic blood pressure 80 mm[Hg] Dr. Nando Esposito Work Phone: [facility] 06-07-2023 14:05-0400 Heart rate 54 /min Dr. Nando Esposito Work Phone: [facility] 06-07-2023 14:05-0400 Respiratory rate 18 /min Dr. Nando Esposito Work Phone: [facility] 06-07-2023 14:05-0400 SaO2% (BldA) [Mass fraction] 95 % Dr. Nando Esposito Work Phone: [facility] 06-07-2023 14:05-0400 Systolic blood pressure 138 mm[Hg] Dr. Nando Esposito Work Phone: [facility] 05-30-2023 12:45-0400 Body mass index (BMI) [Ratio] 40.76 kg/m2 Nando Esposito MD MPH Work Phone: [facility] 05-30-2023 12:45-0400 Body weight 102.15 kg Nando Esposito MD MPH Work Phone: [facility] 05-30-2023 12:45-0400 Diastolic blood pressure 80 mm[Hg] Nando Esposito MD MPH Work Phone: [facility] 05-30-2023 12:45-0400 Heart rate 67 /min Nando Esposito MD MPH Work Phone: [facility] 05-30-2023 12:45-0400 Systolic blood pressure 102 mm[Hg] Nando Esposito MD MPH Work Phone: [facility] 05-09-2023 10:22-0400 Body mass index (BMI) [Ratio] 39.4 kg/m2 Dr. Nando Esposito Work Phone: [facility] 05-09-2023 10:22-0400 Body temperature 98.2 [degF] Dr. Nando Esposito Work Phone: [facility] 05-09-2023 10:22-0400 Body weight 100.[address] Nando Esposito Work Phone: [facility] 05-09-2023 10:22-0400 Diastolic blood pressure 52 mm[Hg] Dr. Nando Esposito Work Phone: [facility] 05-09-2023 10:22-0400 Heart rate 74 /min Dr. Nando Esposito Work Phone: [facility] 05-09-2023 10:22-0400 Respiratory rate 18 /min Dr. Nando Esposito Work Phone: [facility] 05-09-2023 10:22-0400 SaO2% (BldA) [Mass fraction] 96 % Dr. Nando Esposito Work Phone: [facility] 05-09-2023 10:22-0400 Systolic blood pressure 150 mm[Hg] Dr. Nando Esposito Work Phone: [facility] 02-14-2023 09:43-0400 Body height 158.3 cm Nando Esposito MD MPH Work Phone: [facility] 02-14-2023 09:43-0400 Body mass index (BMI) [Ratio] 36.96 kg/m2 Nando Esposito MD MPH Work Phone: [facility] 02-14-2023 09:43-0400 Body weight 92.63 kg Nando Esposito MD MPH Work Phone: [facility] 02-14-2023 09:43-0400 Diastolic blood pressure 90 mm[Hg] Nando Esposito MD MPH Work Phone: [facility] 02-14-2023 09:43-0400 Heart rate 85 /min Nando Esposito MD MPH Work Phone: [facility] 02-14-2023 09:43-0400 Systolic blood pressure 140 mm[Hg] Nando Esposito MD MPH Work Phone: [facility] 02-09-2023 08:49-0400 Body height 160.[address] Nando Esposito Work Phone: [facility] 02-09-2023 08:49-0400 Body mass index (BMI) [Ratio] 35.2 kg/m2 Dr. Nando Esposito Work Phone: [facility] 02-09-2023 08:49-0400 Body weight 90.[address] Nando Esposito Work Phone: [facility] 02-09-2023 08:49-0400 Diastolic blood pressure 80 mm[Hg] Dr. Nando Esposito Work Phone: [facility] 02-09-2023 08:49-0400 Heart rate 56 /min Dr. Nando Esposito Work Phone: [facility] 02-09-2023 08:49-0400 Respiratory rate 18 /min Dr. Nando Esposito Work Phone: [facility] 02-09-2023 08:49-0400 SaO2% (BldA) [Mass fraction] 99 % Dr. Nando Esposito Work Phone: [facility] 02-09-2023 08:49-0400 Systolic blood pressure 133 mm[Hg] Dr. Nando Esposito Work Phone: [facility] 11-20-2022 12:57-0500 Diastolic blood pressure 61 mm[Hg] Dr. Nando Esposito Work Phone: [facility] 11-20-2022 12:57-0500 Heart rate 54 /min Dr. Nando Esposito Work Phone: [facility] 11-20-2022 12:57-0500 Respiratory rate 18 /min Dr. Nando Esposito Work Phone: [facility] 11-20-2022 12:57-0500 Systolic blood pressure 130 mm[Hg] Dr. Nando Esposito Work Phone: [facility] 11-20-2022 11:16-0500 Body height 160.[address] Nando Esposito Work Phone: [facility] 11-20-2022 11:16-0500 Body mass index (BMI) [Ratio] 30.1 kg/m2 Dr. Nando Esposito Work Phone: [facility] 11-20-2022 11:16-0500 Body temperature 98.2 [degF] Dr. Nando Esposito Work Phone: [facility] 11-20-2022 11:16-0500 Body weight 77.[address] Nando Esposito Work Phone: [facility] 11-20-2022 11:16-0500 SaO2% (BldA) [Mass fraction] 100 % Dr. Nando Esposito Work Phone: [facility] 11-04-2022 14:14-0500 Body height 160.[address] Nando Esposito Work Phone: [facility] 11-04-2022 14:14-0500 Body mass index (BMI) [Ratio] 30.1 kg/m2 Dr. Nando Esposito Work Phone: [facility] 11-04-2022 14:14-0500 Body weight 77.[address] Nando Esposito Work Phone: [facility] 11-04-2022 14:14-0500 Diastolic blood pressure 79 mm[Hg] Dr. Nando Esposito Work Phone: [facility] 11-04-2022 14:14-0500 Heart rate 52 /min Dr. Nando Esposito Work Phone: [facility] 11-04-2022 14:14-0500 Respiratory rate 16 /min Dr. Nando Esposito Work Phone: [facility] 11-04-2022 14:14-0500 Systolic blood pressure 125 mm[Hg] Dr. Nando Esposito Work Phone: [facility] 09-17-2022 15:29-0500 Body temperature 97.1 [degF] Dr. Nando Esposito Work Phone: [facility] 09-17-2022 15:29-0500 Diastolic blood pressure 58 mm[Hg] Dr. Nando Esposito Work Phone: [facility] 09-17-2022 15:29-0500 Heart rate 93 /min Dr. Nando Esposito Work Phone: [facility] 09-17-2022 15:29-0500 Respiratory rate 18 /min Dr. Nando Esposito Work Phone: [facility] 09-17-2022 15:29-0500 SaO2% (BldA) [Mass fraction] 96 % Dr. Nando Esposito Work Phone: [facility] 09-17-2022 15:29-0500 Systolic blood pressure 99 mm[Hg] Dr. Nando Esposito Work Phone: [facility] 09-17-2022 04:40-0500 Inhaled oxygen flow rate 2 L/min Dr. Nando Esposito Work Phone: [facility] 09-17-2022 04:02-0500 Body weight 92.[address] Nando Esposito Work Phone: [facility] 09-15-2022 14:06-0500 Body height 160.[address] Nando Esposito Work Phone: [facility] Work Phone: 09-11-2022 22:05-0500 Inhaled oxygen concentration 21 % Dr. Nando Esposito Work Phone: [facility] 09-10-2022 05:34-0500 Body mass index (BMI) [Ratio] 36.3 kg/m2 Dr. Nando Esposito Work Phone: [facility] 09-10-2022 04:00-0500 Diastolic blood pressure 106 mm[Hg] Dr. Nando Esposito Work Phone: [facility] Work Phone: 09-10-2022 04:00-0500 Heart rate 112 /min Dr. Nando Esposito Work Phone: [facility] Work Phone: 09-10-2022 04:00-0500 Respiratory rate 21 /min Dr. Nando Esposito Work Phone: [facility] Work Phone: 09-10-2022 04:00-0500 SaO2% (BldA) [Mass fraction] 100 % Dr. Nando Esposito Work Phone: [facility] Work Phone: 09-10-2022 04:00-0500 Systolic blood pressure 123 mm[Hg] Dr. Nando Esposito Work Phone: [facility] Work Phone: 09-10-2022 02:22-0500 Body temperature 97.4 [degF] Dr. Nando Esposito Work Phone: [facility] Work Phone: 09-09-2022 22:52-0500 Body height 160.[address] Nando Esposito Work Phone: [facility] Work Phone: 09-09-2022 22:52-0500 Body mass index (BMI) [Ratio] 38 kg/m2 Dr. Nando Esposito Work Phone: [facility] Work Phone: 09-09-2022 22:52-0500 Body weight 97.[address] Nando Esposito Work Phone: [facility] Work Phone: 09-08-2022 18:58-0500 Body height 160.[address] Nando Esposito Work Phone: [facility] Work Phone: 09-08-2022 18:58-0500 Body mass index (BMI) [Ratio] 34.9 kg/m2 Dr. Nando Esposito Work Phone: [facility] 09-08-2022 18:58-0500 Body temperature 97.6 [degF] Dr. Nando Esposito Work Phone: [facility] 09-08-2022 18:58-0500 Body weight 89.[address] Nando Esposito Work Phone: [facility] 09-08-2022 18:58-0500 Diastolic blood pressure 74 mm[Hg] Dr. Nando Esposito Work Phone: [facility] 09-08-2022 18:58-0500 Heart rate 100 /min Dr. Nando Esposito Work Phone: [facility] 09-08-2022 18:58-0500 Respiratory rate 16 /min Dr. Nando Esposito Work Phone: [facility] 09-08-2022 18:58-0500 SaO2% (BldA) [Mass fraction] 97 % Dr. Nando Esposito Work Phone: [facility] 09-08-2022 18:58-0500 Systolic blood pressure 112 mm[Hg] Dr. Nando Esposito Work Phone: [facility] 08-20-2022 10:00-0500 Body temperature 97.3 [degF] William Moe MD Work Phone: [facility] 08-20-2022 10:00-0500 Diastolic blood pressure 83 mm[Hg] William Moe MD Work Phone: [facility] 08-20-2022 10:00-0500 Systolic blood pressure 116 mm[Hg] William Moe MD Work Phone: [facility] 08-20-2022 08:30-0500 Heart rate 99 /min William Moe MD Work Phone: [facility] 08-20-2022 08:30-0500 Respiratory rate 20 /min William Moe MD Work Phone: [facility] 08-20-2022 08:30-0500 SaO2% (BldA) [Mass fraction] 98 % William Moe MD Work Phone: [facility] 08-20-2022 04:51-0500 Body mass index (BMI) [Ratio] 33.27 kg/m2 William Moe MD Work Phone: [facility] 08-20-2022 04:51-0500 Body weight 87.95 kg William Moe MD Work Phone: [facility] 08-17-2022 13:18-0500 Body height 162.6 cm William Moe MD Work Phone: [facility] 08-09-2022 05:53-0500 Body temperature 97.5 [degF] Dr. Nando Esposito Work Phone: [facility] 08-09-2022 05:53-0500 Diastolic blood pressure 75 mm[Hg] Dr. Nando Esposito Work Phone: [facility] 08-09-2022 05:53-0500 Heart rate 110 /min Dr. Nando Esposito Work Phone: [facility] 08-09-2022 05:53-0500 Respiratory rate 22 /min Dr. Nando Esposito Work Phone: [facility] 08-09-2022 05:53-0500 SaO2% (BldA) [Mass fraction] 97 % Dr. Nando Esposito Work Phone: [facility] 08-09-2022 05:53-0500 Systolic blood pressure 113 mm[Hg] Dr. Nando Esposito Work Phone: [facility] 08-09-2022 04:30-0500 Inhaled oxygen flow rate 2 L/min Dr. Nando Esposito Work Phone: [facility] 08-09-2022 03:51-0500 Body mass index (BMI) [Ratio] 36.8 kg/m2 Dr. Nando Esposito Work Phone: [facility] 08-09-2022 03:51-0500 Body weight 97.[address] Nando Esposito Work Phone: [facility] 08-03-2022 17:02-0500 Body temperature 97.16 [degF] Nando Esposito [facility] 08-03-2022 17:02-0500 Diastolic blood pressure 100 mm[Hg] Nando Esposito [facility] 08-03-2022 17:02-0500 Heart rate 80 /min Nando Espinoza Mallapareddi [facility] 08-03-2022 17:02-0500 Respiratory rate 19 /min Nando Blancoreddi [facility] 08-03-2022 17:02-0500 SaO2% (BldA) [Mass fraction] 96 % Nando Blancoreddi [facility] 08-03-2022 17:02-0500 Systolic blood pressure 130 mm[Hg] Nando Blancoreddi [facility] 08-03-2022 07:20-0500 Body weight 88.3 kg Nando Blancoreddi [facility] 07-19-2022 23:05-0500 Body temperature 37.0 {degrees_C} Nando Louis Mallapareddi Work Phone: [facility] Work Phone: Comment on above: NOTE: PATIENT RESULTS ARE NOT CORRECTED FOR TEMPERATURE. 07-18-2022 01:48-0500 Body temperature 37.0 {degrees_C} Nando Louis Mallapareddi Work Phone: [facility] Work Phone: Comment on above: NOTE: PATIENT RESULTS ARE NOT CORRECTED FOR TEMPERATURE. 07-18-2022 01:35-0500 Body temperature 37.0 {degrees_C} Nando Louis Mallapareddi Work Phone: [facility] Work Phone: Comment on above: NOTE: PATIENT RESULTS ARE NOT CORRECTED FOR TEMPERATURE. 07-18-2022 01:35-0500 SaO2% (BldA) [Mass fraction] 99 % Nando Louis Mallapareddi Work Phone: [facility] Work Phone: 07-16-2022 22:00-0400 Heart rate 101 /min Nando Gomezapareddi [facility] 07-16-2022 21:00-0400 Diastolic blood pressure 89 mm[Hg] Nando Esposito [facility] 07-16-2022 21:00-0400 SaO2% (BldA) [Mass fraction] 97 % Nando Esposito [facility] 07-16-2022 21:00-0400 Systolic blood pressure 105 mm[Hg] Nando Esposito [facility] 07-16-2022 20:33-0400 Respiratory rate 20 /min Nando Esposito [facility] 07-16-2022 18:56-0400 Body temperature 97.34 [degF] [facility]za [facility] 07-16-2022 17:45-0400 FiO2 35 1 Nando Esposito [facility] 07-16-2022 10:07-0400 Body temperature 37.0 {degrees_C} Nando Blancoreddi Work Phone: [facility] Work Phone: Comment on above: NOTE: PATIENT RESULTS ARE NOT CORRECTED FOR TEMPERATURE. 07-16-2022 10:07-0400 SaO2% (BldA) [Mass fraction] 99 % Nando Gomezapareddi Work Phone: [facility] Work Phone: 07-15-2022 14:27-0400 Body temperature 37.0 {degrees_C} Nando Gomezapareddi Work Phone: [facility] Work Phone: Comment on above: NOTE: PATIENT RESULTS ARE NOT CORRECTED FOR TEMPERATURE. 07-15-2022 14:27-0400 SaO2% (BldA) [Mass fraction] 100 % Nando Louis Mallapareddi Work Phone: [facility] Work Phone: 07-06-2022 10:30-0400 Heart rate 82 /min Dr. Nando Esposito Work Phone: [facility] Work Phone: 07-06-2022 09:15-0400 Diastolic blood pressure 68 mm[Hg] Dr. Nando Esposito Work Phone: [facility] Work Phone: 07-06-2022 09:15-0400 Respiratory rate 21 /min Dr. Nando Esposito Work Phone: [facility] Work Phone: 07-06-2022 09:15-0400 SaO2% (BldA) [Mass fraction] 100 % Dr. Nando Esposito Work Phone: [facility] Work Phone: 07-06-2022 09:15-0400 Systolic blood pressure 107 mm[Hg] Dr. Nando Esposito Work Phone: [facility] Work Phone: 07-06-2022 08:00-0400 Body temperature 97.9 [degF] Dr. Nando Esposito Work Phone: [facility] Work Phone: 07-06-2022 02:29-0400 Body height 162.[address] Nando Esposito Work Phone: [facility] Work Phone: 07-06-2022 02:29-0400 Body mass index (BMI) [Ratio] 36.4 kg/m2 Dr. Nando Esposito Work Phone: [facility] Work Phone: 07-06-2022 02:29-0400 Body weight 96.[address] Nando Esposito Work Phone: [facility] Work Phone: 07-06-2022 02:03-0400 Diastolic blood pressure 71 mm[Hg] Dr. Nando Esposito Work Phone: [facility] Work Phone: 07-06-2022 02:03-0400 Heart rate 82 /min Dr. Nando Esposito Work Phone: [facility] Work Phone: 07-06-2022 02:03-0400 Respiratory rate 18 /min Dr. Nando Esposito Work Phone: [facility] Work Phone: 07-06-2022 02:03-0400 SaO2% (BldA) [Mass fraction] 92 % Dr. Nando Esposito Work Phone: [facility] Work Phone: 07-06-2022 02:03-0400 Systolic blood pressure 116 mm[Hg] Dr. Nando Esposito Work Phone: [facility] Work Phone: 07-06-2022 00:00-0400 Body temperature 97.9 [degF] Dr. Nando Esposito Work Phone: [facility] Work Phone: 07-05-2022 19:18-0400 Body height 162.[address] Nando Esposito Work Phone: [facility] Work Phone: 07-05-2022 19:18-0400 Body mass index (BMI) [Ratio] 36.2 kg/m2 Dr. Nando Esposito Work Phone: [facility] Work Phone: 07-05-2022 19:18-0400 Body weight 95.[address] Nando Esposito Work Phone: [facility] Work Phone: 06-29-2022 11:29-0400 Body height 157.4 cm Nando Esposito Work Phone: [facility] Work Phone: 06-29-2022 11:29-0400 Body mass index (BMI) [Ratio] 37.94 kg/m2 Nando Espinoza S Mallapareddi Work Phone: [facility] Work Phone: 06-29-2022 11:29-0400 Body surface area Derived from formula 1.94 m2 Nando Espinoza S Mallapareddi Work Phone: [facility] Work Phone: 06-29-2022 11:29-0400 Body weight 93.98 kg Nando Espinoza S Mallapareddi Work Phone: [facility] Work Phone: 06-29-2022 11:29-0400 Diastolic blood pressure 90 mm[Hg] Nando Espinoza S Mallapareddi Work Phone: [facility] Work Phone: 06-29-2022 11:29-0400 Heart rate 141 /min Nando Espinoza S Mallapareddi Work Phone: [facility] Work Phone: 06-29-2022 11:29-0400 Systolic blood pressure 100 mm[Hg] Nando Espinoza S Mallapareddi Work Phone: [facility] Work Phone: 05-19-2022 11:41-0400 Diastolic blood pressure 61 mm[Hg] Dr. Nando Esposito Work Phone: [facility] Work Phone: 05-19-2022 11:41-0400 Heart rate 80 /min Dr. Nando Esposito Work Phone: [facility] Work Phone: 05-19-2022 11:41-0400 Respiratory rate 20 /min Dr. Nando Esposito Work Phone: [facility] Work Phone: 05-19-2022 11:41-0400 SaO2% (BldA) [Mass fraction] 95 % Dr. Nando Esposito Work Phone: [facility] Work Phone: 05-19-2022 11:41-0400 Systolic blood pressure 109 mm[Hg] Dr. Nando Esposito Work Phone: [facility] Work Phone: 05-19-2022 10:00-0400 Body temperature 98.6 [degF] Dr. Nando Esposito Work Phone: [facility] Work Phone: 05-19-2022 06:00-0400 Body height 162.[address] Nando Esposito Work Phone: [facility] Work Phone: 05-19-2022 06:00-0400 Body mass index (BMI) [Ratio] 35.5 kg/m2 Dr. Nando Esposito Work Phone: [facility] Work Phone: 05-19-2022 06:00-0400 Body weight 94.[address] Nando Esposito Work Phone: [facility] Work Phone: 05-19-2022 04:00-0400 Inhaled oxygen flow rate 2 L/min Dr. Nando Esposito Work Phone: [facility] Work Phone: 05-18-2022 21:35-0400 Inhaled oxygen concentration 21 % Dr. Nando Esposito Work Phone: [facility] Work Phone: 05-17-2022 18:30-0400 Diastolic blood pressure 92 mm[Hg] [facility] Work Phone: 05-17-2022 18:30-0400 Heart rate 132 /min [facility] Work Phone: 05-17-2022 18:30-0400 Respiratory rate 23 /min [facility] Work Phone: 05-17-2022 18:30-0400 SaO2% (BldA) [Mass fraction] 97 % [facility] Work Phone: 05-17-2022 18:30-0400 Systolic blood pressure 114 mm[Hg] [facility] Work Phone: 05-17-2022 18:15-0400 Body temperature 98.5 [degF] [facility] Work Phone: 05-17-2022 17:09-0400 Body height 160.02 cm [facility] Work Phone: 05-17-2022 17:09-0400 Body mass index (BMI) [Ratio] 37.2 kg/m2 [facility] Work Phone: 05-17-2022 17:09-0400 Body weight 95.4 kg [facility] Work Phone: 04-05-2022 14:52-0400 Body height 157.48 cm Nando Nag [facility] Work Phone: [facility] Work Phone: 04-05-2022 14:52-0400 Body mass index (BMI) [Ratio] 36.49 kg/m2 Nando Nag S Mallapareddi Work Phone: [facility] Work Phone: 04-05-2022 14:52-0400 Body surface area Derived from formula 1.91 m2 Nando Nag S Mallapareddi Work Phone: [facility] Work Phone: 04-05-2022 14:52-0400 Body weight 90.49 kg Nando Nag S Mallapareddi Work Phone: [facility] Work Phone: 04-05-2022 14:52-0400 Diastolic blood pressure 84 mm[Hg] Nando Nag S Mallapareddi Work Phone: [facility] Work Phone: 04-05-2022 14:52-0400 Heart rate 96 /min Nando Nag S Mallapareddi Work Phone: [facility] Work Phone: 04-05-2022 14:52-0400 Systolic blood pressure 148 mm[Hg] Nando Nag S Mallapareddi Work Phone: [facility] Work Phone: 08-15-2020 17:32-0500 BMI (Body Mass Index) 37.15 kg/m2 Nando Nag Mallapareddi [facility] Work Phone: 08-15-2020 17:32-0500 Body weight 92.13 kg Nando Nag Mallapareddi [facility] Work Phone: 08-15-2020 17:32-0500 BP Diastolic 102 mm[Hg] Nando Nag Mallapareddi [facility] Work Phone: 08-15-2020 17:32-0500 BP Systolic 154 mm[Hg] Nando Nag Mallapareddi [facility] Work Phone: 08-15-2020 17:32-0500 BSA (Body Surface Area) 1.92 m2 Nando Nag Mallapareddi [facility] Work Phone: 08-15-2020 17:32-0500 Height 157.48 cm Nando Nag Mallapareddi [facility] Work Phone: 08-15-2020 17:32-0500 Pulse (Heart Rate) 104 /min Nando Nag Mallapareddi [facility] Work Phone: Encounters Encounter Date Encounter Type Care Provider Facility Start: 01-31-2025 End: 01-31-2025 ambulatory [facility] Start: 12-03-2024 ambulatory Kait Aakash [facility] Start: 11-19-2024 End: 11-19-2024 ambulatory Kait Aakash [facility] Start: 10-24-2024 End: 10-24-2024 ambulatory Efewongbe Oleghe [facility] Start: 10-24-2024 End: 10-24-2024 [facility] Start: 09-24-2024 ambulatory Kait Aakash [facility] :[facility] Start: 08-03-2024 Encounter for genera l adult medical examination without abnormal findings [facility] Start: 08-03-2024 End: 08-03-2024 ambulatory [facility] Start: 08-03-2024 End: 08-03-2024 [facility] Start: 07-23-2024 ambulatory Kait Aakash [facility] Start: 06-11-2024 End: 06-11-2024 ambulatory Efewongbe Olee Facility:[facility] Start: 04-23-2024 ambulatory Efewongmackenzie Deleone Facili ty:[facility] Start: 02-23-2024 End: 02-23-2024 ambulatory [facility] Start: 02-23-2024 End: 02-23-2024 [facility] Facility[facility] Start: 02-20-2024 End: 02-20-2024 ambulatory Kait Aakash Facility:[facility] Start: 11-10-2023 End: 11-10-2023 ambulatory MARAH BAPTISTE Facility:[facility] Start: 11-10-2023 End: 11-10-2023 Patient encounter procedure Marah Baptiste OD Work Phone: Ophthalmology Comment on above: Myopia, bilateral (P rimary Dx); Presbyopia Start: 10-31-2023 Telephone encounter Marah jaeger OD Work Phone: Ophthalmology Start: 10-21-2023 End: 10-21-[address] Nando Esposito Work Phone: [facility] Work Phone: Start: 10-21-2023 End: 10-21-[address] Nando Esposito Work Phone: [facility] Internal Medicine Work Phone: Start: 10-20-2023 End: 10-20-[address] Nando Esposito Work Phone: [facility] Work Phone: Start: 10-20-2023 End: 10-20-[address] Nando Esposito Work Phone: [facility]-Physical Therapy Work Phone: Start: 10-07-2023 End: 10-07-2023 ambulatory MARAH BAPTISTE Facility:[facility] Start: 09-15-[address] Nando Esposito Work Phone: [facility]-Physical Therapy Work Phone: Start: 09-13-2023 End: 09-13-[address] Nando Esposito Work Phone: [facility] Work Phone: Start: 09-13-2023 End: 09-13-[address] Nando Esposito Work Phone: [facility]-Cardiovascul ar Services Work Phone: Start: 09-06-[address] Nando Esposito Work Phone: [facility]-Physical Therapy Work Phone: Start: 09-02-2023 End: 09-02-[address] Nando Esposito Work Phone: [facility] Work Phone: Start: 09-02-2023 End: 09-02-[address] Nando Esposito Work Phone: [facility]-Sleep Lab Work Phone: Start: 08-18-2023 End: 08-18-[address] Nando Esposito Work Phone: [facility] Endocrinology Work Phone: Start: 08-15-2023 End: 08-15-[address] Nando Esposito Work Phone: [facility]-Pulmonary Medicine [facility] Work Phone: Start: 08-01-2023 End: 08-01-2023 Emergency department patient visit Dr. Nando Esposito Work Phone: [facility]-Emergency Department Work Phone: Start: 07-28-2023 End: 07-28-[address] Nando Esposito Work Phone: [facility] Orthopaedic Specia Work Phone: Start: 07-25-2023 End: 07-25-[address] Nando Esposito Work Phone: [facility] Work Phone: Start: 07-25-2023 End: 07-25-[address] Nando Esposito Work Phone: [facility]-Sleep Lab Work Phone: Start: 07-18-2023 Non-patient / Non-visit Dr. Maxwell Esposito Work Phone: [facility] In[facility] Physicians Work Phone: Start: 07-16-2023 Non-patient / Non-visit Dr. Maxwell Esposito Work Phone: [facility] Inpatient Physicians Work Phone: Start: 07-15-2023 Non-patient / Non-visit Dr. Maxwell Esposito Work Phone: [facility] Work Phone: Start: 07-14-2023 Non-patient / Non-visit Dr. Maxwell Blancoredjean carlos Work Phone: [facility] Work Phone: Start: 07-12-2023 Non-patient / Non-visit Dr. Maxwell Esposito Work Phone: [facility] Work Phone: Start: 07-11-2023 Non-patient / Non-visit Dr. Maxwell Gomezaparedjean carlos Work Phone: [facility] Work Phone: Start: 07-07-2023 Non-patient / Non-visit Dr. Maxwell Gomezaparedjean carlos Work Phone: [facility] Work Phone: Start: 07-05-2023 End: 07-25-2023 Evaluation and management of inpatient Dr. Nando Esposito Work Phone: [facility]-Rehab Unit Work Phone: Start: 07-05-2023 Non-patient / Non-visit Dr. Maxwell Esposito Work Phone: [facility] Work Phone: Start: 07-04-2023 Non-patient / Non-visit Dr. Maxwell Gomezaparedjean carlos Work Phone: [facility] Work Phone: Start: 07-03-2023 Non-patient / Non-visit Dr. Maxwell Gomezaparedjean carlos Work Phone: [facility] Work Phone: Start: 07-02-2023 Non-patient / Non-visit Dr. Maxwell Esposito Work Phone: [facility] Work Phone: Start: 07-01-2023 Non-patient / Non-visit Dr. Arreola un Mallapareddi Work Phone: [facility] Work Phone: Start: 06-30-2023 Non-patient / Non-visit Dr. Arreola un Mallapareddi Work Phone: [facility] Work Phone: Start: 06-29-2023 Non-patient / Non-visit Dr. Arreola un Mallapareddi Work Phone: [facility] Work Phone: Start: 06-28-2023 Non-patient / Non-visit Dr. Maxwell benavidez Mallapareddi Work Phone: [facility] Work Phone: Start: 06-28-2023 Non-patient / Non-visit Dr. Arreola un Mallapareddi Work Phone: [facility] Start: 06-27-2023 Non-patient / Non-visit Dr. Arreola un Mallapareddi Work Phone: [facility] Work Phone: Start: 06-26-2023 Non-patient / Non-visit Dr. Arreola un Mallapareddi Work Phone: [facility] Work Phone: Start: 06-25-2023 Non-patient / Non-visit Dr. Arreola un Mallapareddi Work Phone: [facility] Work Phone: Start: 2023 Non-patient / Non-visit Dr. Arreola un Mallapareddi Work Phone: [facility] Start: 06-23-2023 Non-patient / Non-visit Dr. Arreola un Mallapareddi Work Phone: [facility] Inpatient Physicians Work Phone: Start: 06-23-2023 Non-patient / Non-visit [facility]. Maxwell [facility]posito [facility] Start: 06-22-2023 Non-patient / Non-visit Dr. Maxwell Esposito Work Phone: [facility] Inpatient Physicians Work Phone: Start: 06-22-2023 Non-patient / Non-visit Dr. Maxwell Esposito Work Phone: [facility] Start: 06-21-2023 Non-patient / Non-visit Dr. Maxwell Esposito Work Phone: [facility] Start: 06-21-2023 Non-patient / Non-visit Dr. Maxwell Esposito Work Phone: [facility] Inpatient Physicians Work Phone: Start: 06-21-2023 End: 07-05-2023 Evaluation and management of inpatient Dr. Nando Esposito Work Phone: [facility]-Progressive Care Unit Work Phone: Start: 06-20-2023 End: 06-20-[address] Nando Esposito Work Phone: [facility] Work Phone: Start: 06-16-2023 End: 06-16-[address] Nando Esposito Work Phone: [facility] Work Phone: Start: 06-14-2023 Non-patient / Non-visit Dr. Maxwell Esposito Work Phone: [facility] Start: 06-14-2023 End: 06-14-[address] Nando Esposito Work Phone: [facility]-Cardiovascul ar Services Work Phone: Start: 06-09-2023 End: 06-09-2023 Emergency department patient visit Dr. Nando Esposito Work Phone: [facility]-Emergency Department Work Phone: Start: 06-07-2023 End: 06-07-[address] Nando Esposito Work Phone: [facility] Work Phone: Start: 06-07-2023 End: 06-07-[address] Nando Esposito Work Phone: [facility] Work Phone: Start: 05-30-2023 End: 05-31-2023 ambulatory NANDO Louis [facility] Ambulatory Start: 05-30-2023 End: 05-30-2023 Office outpatient visit 25 minutes Nando Esposito MD MPH Work Phone: [facility] Comment on above: Multiple hypopigment ed skin lesions on both forearms (Primary Dx); Insomnia, unspecified type; Acute cough; Type 2 diabetes mellitus without complication, with long-term current use of insulin ([facility]); Podagra Start: 05-24-[address] Nando Esposito Facility:[id number] Start: 05-09-2023 End: 05-09-[address] 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); Vortex keratopathy of both eyes; Ptosis of both eyelids Start: 04-17-2023 AUDIT Nando Esposito Work Phone: [facility] Work Phone: Start: 03-17-2023 End: 03-17-2023 ambulatory MARAH BAPTISTE Facility:[facility] Start: 03-17-2023 End: 03-17-2023 Patient encounter procedure Marah Baptiste OD Work Phone: Ophthalmology Comment on above: Vitreous floaters of left eye (Primary Dx); Type 2 diabetes mellitus with both eyes affected by moderate nonproliferative retinopathy without macular edema, with long-term current use of insulin (HCC); Vortex keratopathy of both eyes Start: 03-16-2023 Telephone encounter Sue Brian [facility] Comment on above: appointment sched (A ppointment scheduled/) Start: 02-14-2023 End: 02-14-2023 ambulatory [facility] Start: 02-14-2023 End: 02-14-2023 Office outpatient visit 25 minutes Nando Esposito MD MPH Work Phone: [facility] Comment on above: Chronic pain of both shoulders (Primary Dx); Observed sleep apnea; Cerebrovascular accident (CVA), unspecified mechanism (CMS/HCC); Type 2 diabetes mellitus without complication, with long-term current use of insulin (CMS/HCC); Secondary dysthymia; Insomnia, unspecified type; Podagra Start: 02-09-2023 End: 02-09-[address] Nando Esposito Work Phone: [facility] Start: 01-31-2023 Non-patient / Non-visit Dr. Maxwell Esposito Work Phone: [facility] Start: 01-31-2023 End: 01-31-[address] Nando Mallapareddi Work Phone: [facility] Work Phone: Start: 01-31-2023 End: 01-31-[address] Nando Esposito Work Phone: [facility]-Cardiovascul ar Services Start: 11-20-2022 End: 11-20-2022 Emergency department patient visit Dr. Nando Esposito Work Phone: [facility]-Emergency Department Start: 11-05-2022 AUDIT Nando Louis Mallapareddi Work Phone: [facility] [address] Work Phone: Start: 11-04-2022 End: 11-04-[address] Nando Esposito Work Phone: [facility] Work Phone: Start: 11-04-2022 End: 11-04-[address] Nando Esposito Work Phone: [facility]-Laboratory Start: 11-04-2022 End: 11-04-[address] Nando Esposito Work Phone: [facility] Start: 11-02-2022 AUDIT Nando Louis Mallapareddi Work Phone: [facility] Work Phone: Start: 10-29-2022 AUDIT Nando Espinoza S Mallapareddi Work Phone: [facility] Work Phone: Start: 10-29-2022 AUDIT Nando Espinoza S Mallapareddi Work Phone: [facility] Work Phone: Start: 10-22-2022 ambulatory NANDO ESPINOZA [facility] Facility:[id number] Start: 10-20-2022 ambulatory NANDO ESPINOZA [facility] Facility:[id number] Start: 09-20-2022 End: 10-15-2022 ambulatory MARKELL MEEHAN [facility] Start: 09-18-2022 End: 09-24-2022 Evaluation and management of inpatient MARKELL MEEHAN [facility] Start: 09-17-2022 Non-patient / Non-visit Dr. Maxwell Esposito Work Phone: [facility] Inpatient Physicians Start: 09-16-2022 Non-patient / Non-visit Dr. Maxwell Esposito Work Phone: [facility] Inpatient Physicians Start: 09-15-2022 Non-patient / Non-visit Dr. Maxwell Esposito Work Phone: [facility] Inpatient Physicians Start: 09-14-2022 Non-patient / Non-visit Dr. Maxwell Esposito Work Phone: [facility] Inpatient Physicians Start: 09-13-2022 Non-patient / Non-visit Dr. Maxwell Esposito Work Phone: [facility] Inpatient Physicians Start: 09-12-2022 Non-patient / Non-visit Dr. Maxwell Esposito Work Phone: [facility] Inpatient Physicians Start: 09-11-2022 Non-patient / Non-visit Dr. Maxwell Esposito Work Phone: [facility] Inpatient Physicians Start: 09-10-2022 ambulatory NANDO ESPOSITO Facility:[id number] Start: 09-10-2022 End: 09-17-2022 Evaluation and management of inpatient Dr. Nando Esposito Work Phone: [facility]-Intensive Care Unit Start: 09-08-2022 End: 09-09-2022 Emergency department patient visit Dr. 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 Nando Esposito Work Phone: [facility]-Emergency Department Start: 08-04-2022 Result Review Nando Esposito Work Phone: FK-Kqibjajpnlxukswh[facility] Work Phone: Start: 07-28-2022 AUDIT Nando Espinoza Heriberto Blancoreddi Work Phone: IY-Vmtaxklgnzduponp-W [facility] Work Phone: Start: 07-16-2022 End: 08-03-2022 Evaluation and management of inpatient Preetir Josh-Buraki [facility] TT05 Rm [id number] Start: 07-16-2022 ambulatory NANDO ESPINOZA [facility] Facility:[id number] Start: 07-09-2022 End: 07-09-2022 Emergency department patient visit NASIR MENDEZ Facility:[id number] Start: 07-09-2022 End: 07-16-2022 Evaluation and management of inpatient Nasir Mendez [facility] Med Surg ICU [id number] Start: 07-06-2022 Non-patient / Non-visit Dr. Maxwell Esposito Work Phone: [facility] Inpatient Physicians Start: 07-06-2022 Non-patient / Non-visit Dr. Maxwell Esposito Work Phone: [facility] Start: 07-05-2022 Non-patient / Non-visit Dr. Maxwell Esposito Work Phone: [facility] Inpatient Physicians Start: 07-05-2022 End: 07-06-2022 Evaluation and management of inpatient Dr. N[facility] Start: 07-05-2022 AUDIT Nando Louis Mallapareddi Work Phone: [facility] Work Phone: Start: 06-29-2022 Office outpatient vi sit 40 minutes Nando Louis Mallapareddi Work Phone: [facility] Work Phone: Start: 06-29-2022 ambulatory NANDO ESPINOZA [facility] Facility:[id number] Start: 05-19-2022 Non-patient / Non-visit Dr. Maxwell Esposito Work Phone: [facility] Start: 05-18-2022 Non-patient / Non-visit Dr. Maxwell Esposito Work Phone: [facility] Start: 05-18-2022 Non-patient / Non-visit Dr. Maxwell Esposito Work Phone: [facility] Inpatient Physicians Start: 05-17-2022 End: 05-19-2022 Evaluation and management of inpatient [facility] Start: 05-17-2022 End: 05-19-2022 Non-patient / Non-visit Dr. Nando Esposito Work Phone: [facility] Inpatient Physicians Start: 05-03-2022 Office outpatient vi sit 15 minutes Nando Louis Mallapareddi Work Phone: [facility] Work Phone: Start: 05-03-2022 Patient encounter procedure Nando Nag S Mallapareddi Work Phone: [facility] Work Phone: Start: 05-03-2022 ambulatory NANDO ESPINOZA [facility] Facility:[id number] Start: 04-23-2022 AUDIT Nando Nag S Mallapareddi Work Phone: [facility] Work Phone: Start: 04-12-2022 End: 04-13-2022 ambulatory NOT RECORDED PHYSICIAN Facility:B Start: 04-05-2022 Office outpatient vi sit 40 minutes Nando Nag S Mallapareddi Work Phone: [facility] Work Phone: Start: 04-05-2022 Patient encounter procedure Nando Nag S Mallapareddi Work Phone: [facility] Work Phone: Start: 04-05-2022 ambulatory NANDO ESPINOZA [facility] Facility:[id number] Start: 04-02-2022 AUDIT Nando Nag S Mallapareddi Work Phone: [facility] Work Phone: Start: 11-20-2021 AUDIT Nando Nag S Mallapareddi Work Phone: [facility] Work Phone: Start: 09-14-2021 AUDIT Nando Nag S Mallapareddi Work Phone: [facility] Work Phone: Start: 06-17-2021 AUDIT Nando Nag S Mallapareddi Work Phone: [facility] Work Phone: Start: 06-15-2021 Office outpatient vi sit 15 minutes Nando Nag S Mallapareddi Work Phone: [facility] Work Phone: Start: 06-15-2021 Patient encounter procedure Nando Blancoredjean carlos Work Phone: [facility] Work Phone: Start: 06-05-2021 AUDIT Nando Blancoredjean carlos Work Phone: [facility] Work Phone: Start: 05-11-2021 Office outpatient vi sit 15 minutes Nando Blancoredjean carlos Work Phone: [facility] Work Phone: Start: 10-03-2020 Patient encounter procedure Nando Esposito [facility] Work Phone: Start: 08-15-2020 Patient encounter procedure Nando Blancoredjean carlos [facility] Work Phone: Start: 07-18-2019 Patient encounter procedure Nando Esposito [facility] Work Phone: Start: 05-09-2018 Patient encounter Jimi Umanzorl as Facility:[facility] Start: 05-09-2018 End: 05-10-2018 Patient encounter Jimi Umanzorlas Facility:[facility] Start: 07-05-2017 End: 07-05-2017 Patient encounter Wilian Casas Facility:[facility] Procedures Date Procedure Procedure Detail Performing Clinician Start: 08-01-2023 CT of head without contrast Dr. Nando Esposito Work Phone: Start: 06-30-2023 Computed tomography of abdomen and pelvis with contrast Dr. Nando Esposito Work Phone: Start: 2023 Bacteria identified in Blood by Culture Dr. Nando Esposito Work Phone: Start: 06-21-2023 Acid fast bacilli culture Dr. Nando Esposito Work Phone: Start: 06-21-[address] Nando Esposito Work Phone: Start: 06-21-[address] Desiree Esposito Work Phone: Start: 06-21-2023 Cytopathology proced ure, preparation of smear, genital source Dr. Nando Esposito Work Phone: Start: 06-21-[address] Nando Esposito Work Phone: Start: 06-21-2023 Investigation of transfusion reaction Dr. Nando Esposito Work Phone: Start: 06-21-2023 Microbial culture, routine Dr. Nando Esposito Work Phone: Start: 06-21-[address] Maxwell Esposito Work Phone: Start: 06-21-[address] Nando Esposito Work Phone: Start: 06-21-2023 Plain chest X-ray Dr. Desiree Espostio Work Phone: Start: 06-20-[address] Nando Esposito Work Phone: Start: 06-09-2023 Radiologic examinati on of knee Dr. Nando Esposito Work Phone: Start: 05-30-2023 Urate [Mass/volume] in Serum or Plasma NANDO ESPOSITO Start: 02-14-2023 IN-CENTER SLEEP STUD Y (NON-SLEEP PROVIDER ONLY) NANDO ESPOSITO Start: 09-24-2022 Voodoo of Cardi ac Rhythm, Single BUTROS LATOUF Start: 09-24-2022 Ultrasonography of R ight and Left Heart, Transesophageal BUTROS LATOUF Start: 09-16-2022 CT of head without contrast Dr. Nando Esposito Work Phone: Start: 09-09-2022 Plain chest X-ray Dr. Desiree Esposito Work Phone: Start: 09-08-2022 Plain x-ray of hand Dr. Nando Esposito Work Phone: Start: 09-08-2022 Plain X-ray of shoulder Dr. Nando Esposito Work Phone: Start: 09-06-2022 Basic metabolic pane l calcium total Gabi S Juan R SITE ADMINISTRATOR Work Phone: Start: 09-04-2022 Basic metabolic pane l calcium total Alcon Beevrly CAR DELIVERER Work Phone: Start: 09-03-2022 Ecg routine ecg w/le ast 12 lds i&r only Alcon Beverly CAR DELIVERER Work Phone: Start: 09-02-2022 Basic metabolic pane l calcium total Gabi S Juan R SITE ADMINISTRATOR Work Phone: Start: 08-31-2022 Basic metabolic pane l calcium total Alcon Beverly APRN Work Phone: Start: 08-30-2022 Basic metabolic pane l calcium total Gabi Heriberto Juan R SITE ADMINISTRATOR Work Phone: Start: 08-27-2022 Basic metabolic pane l calcium total Alcon Beverly CAR DEL[employer]ER Work Phone: Start: 08-26-2022 Basic metabolic pane l calcium total Gabi S Juan R SITE ADMINISTRATOR Work Phone: Start: 08-24-2022 Hemoglobin glycosylated a1c Lin Gregg MD Work Phone: Start: 08-23-2022 Blood count complete automated Lin Gregg MD Work Phone: Start: 08-20-2022 SARS-CoV-2 (COVID-19 ) RNA [Presence] in Unspecified specimen by SRINIVAS with probe detection Robert Mujica CAR DELIVERER-SITE ADMINISTRATOR Work Phone: Start: 08-20-2022 Glucose measurement, blood Awa Da Silva MD Work Phone: Start: 08-20-2022 Glucose measurement, blood Awa Da Silva MD Work Phone: Start: 08-20-2022 Assay of magnesium Raymundo Cortez MD Work Phone: Start: 08-19-2022 Glucose measurement, blood Awa Da Silva MD Work Phone: Start: 08-19-2022 Glucose measurement, blood Awa Da Silva MD Work Phone: Start: 08-19-2022 Follow-up visit Start: 08-19-2022 Radex wrist complete minimum 3 views Robert Mujica CAR DELIVERER-SITE ADMINISTRATOR Work Phone: Start: 08-19-2022 Glucose measurement, blood Awa Da Silva MD Work Phone: Start: 08-19-2022 Glucose measurement, blood Awa Da Silva MD Work Phone: Start: 08-19-2022 End: 08-19-2022 CONTINUOUS CARDIAC MONITORING STRIP Other Other Start: 08-19-2022 Assay of magnesium Brit kari [place] CAR DELIVERER-SITE ADMINISTRATOR Work Phone: Start: 08-19-2022 CBC AND ELECTRONIC DIFF Delaney Lincoln CAR DELIVERER-SITE ADMINISTRATOR Work Phone: Start: 08-19-2022 Complete blood count with white cell differential, automated Delaney Lincoln CAR DELIVERER-SITE ADMINISTRATOR Work Phone: Start: 08-18-2022 Glucose measurement, blood Awa Da Silva MD Work Phone: Start: 08-18-2022 CONTINUOUS CARDIAC MONITORING STRIP Other Other Start: 08-18-2022 Glucose measurement, blood Awa Da Silva MD Work Phone: Start: 08-18-2022 Blood gases any comb ination ph pco2 po2 co2 hco3 Delaney Lincoln CAR DELIVERER-SITE ADMINISTRATOR Work Phone: Start: 08-18-2022 Glucose measurement, blood Awa Da Silva MD Work Phone: Start: 08-18-2022 Radiologic exam ches t single view Delaney Lincoln CAR DELIVERER-SITE ADMINISTRATOR Work Phone: Start: 08-18-2022 Glucose measurement, blood Awa Da Silva MD Work Phone: Start: 08-18-2022 CONTINUOUS CARDIAC MONITORING STRIP Other Other Start: 08-18-2022 Natriuretic peptide Keiry grant [place] CAR DELIVERER-SITE ADMINISTRATOR Work Phone: Start: 08-17-2022 Glucose measurement, blood Awa Da Silva MD Work Phone: Start: 08-17-2022 Glucose measurement, blood Awa Da Silva MD Work Phone: Start: 08-17-2022 Transthoracic echocardiography Mariposa Han CAR DELIVERER-SITE ADMINISTRATOR Work Phone: Start: 08-17-2022 Glucose measurement, blood Awa Da Silva MD Work Phone: Start: 08-17-2022 Radiologic exam swal low function contrast study Delaney [place] CAR DELIVERER-SITE ADMINISTRATOR Work Phone: Start: 08-17-2022 Glucose measurement, blood Awa Da Silva MD Work Phone: Start: 08-17-2022 CONTINUOUS CARDIAC MONITORING STRIP Other Other Start: 08-16-2022 Glucose measurement, blood Awa Da Silva MD Work Phone: Start: 08-16-2022 Glucose measurement, blood Awa Da Silva MD Work Phone: Start: 08-16-2022 Glucose measurement, blood Awa Da Silva MD Work Phone: Start: 08-16-2022 Assay of magnesium Lore [place] CAR DELIVERER-SITE ADMINISTRATOR Work Phone: Start: 08-16-2022 CBC AND ELECTRONIC DIFF Delaney Lincoln CAR DELIVERER-SITE ADMINISTRATOR Work Phone: Start: 08-16-2022 Complete blood count with white cell differential, automated Delaney Lincoln CAR DELIVERER-SITE ADMINISTRATOR Work Phone: Start: 08-16-2022 Glucose measurement, blood Awa Da Silva MD Work Phone: Start: 08-16-2022 Glucose measurement, blood Awa Da Silva MD Work Phone: Start: 08-15-2022 Glucose measurement, blood Awa Da Silva MD Work Phone: Start: 08-15-2022 Glucose measurement, blood Awa Da Silva MD Work Phone: Start: 08-15-2022 Glucose measurement, blood Awa Da Silva MD Work Phone: Start: 08-15-2022 CONTINUOUS CARDIAC MONITORING STRIP Other Other Start: 08-15-2022 Glucose measurement, blood Awa Da Silva MD Work Phone: Start: 08-14-2022 Glucose measurement, blood Awa Da Silva MD Work Phone: Start: 08-14-2022 Glucose measurement, blood Awa Da Silva MD Work Phone: Start: 08-14-2022 Glucose measurement, blood Awa Da Silva MD Work Phone: Start: 08-14-2022 End: 08-14-2022 Glucose measurement, blood Awa Da Silva MD Work Phone: Start: 08-14-2022 CONTINUOUS CARDIAC MONITORING STRIP Other Other Start: 08-14-2022 Electrolyte panel Youss ra Haley Menard MD Work Phone: Start: 08-14-2022 Oscillating positive expiratory pressure (flutter) physiotherapy Maximilian SHIELDS Work Phone: Start: 08-13-2022 Glucose measurement, blood Awa Da Silva MD Work Phone: Start: 08-13-2022 Glucose measurement, blood Awa Da Silva MD Work Phone: Start: 08-13-2022 Glucose measurement, blood Awa Da Silva MD Work Phone: Start: 08-13-2022 Glucose measurement, blood Awa Da Silva MD Work Phone: Start: 08-13-2022 Oscillating positive expiratory pressure (flutter) physiotherapy Maximilianniranjan Costa [place] Work Phone: Start: 08-12-2022 Glucose measurement, blood Awa Da Silva MD Work Phone: Start: 08-12-2022 CONTINUOUS CARDIAC MONITORING STRIP Other Other Start: 08-12-2022 Glucose measurement, blood Awa Da Silva MD Work Phone: Start: 08-12-2022 Glucose measurement, blood Awa Da Silva MD Work Phone: Start: 08-12-2022 Radiologic exam ches t single view Mariposa Han CAR DELIVERER-SITE ADMINISTRATOR Work Phone: Start: 08-12-2022 Glucose measurement, blood Awa Da Silva MD Work Phone: Start: 08-12-2022 CONTINUOUS CARDIAC MONITORING STRIP Other Other Start: 08-12-2022 Natriuretic peptide Lien Han CAR DELIVERER-SITE ADMINISTRATOR Work Phone: Start: 08-12-2022 Oscillating positive expiratory pressure (flutter) physiotherapy Maximilian Costa [place] Work Phone: Start: 08-11-2022 Glucose measurement, blood Awa Da Silva MD Work Phone: Start: 08-11-2022 Glucose measurement, blood Awa Da Silva MD Work Phone: Start: 08-11-2022 Glucose measurement, blood Awa Da Silva MD Work Phone: Start: 08-11-2022 Glucose measurement, blood Awa Da Silva MD Work Phone: Start: 08-11-2022 Electrolyte panel Yola Han CAR DELIVERER-SITE ADMINISTRATOR Work Phone: Start: 08-11-2022 Glucose measurement, blood Awa Da Silva MD Work Phone: Start: 08-11-2022 Mri brain brain stem w/o contrast material Mariposa Han CAR DELIVERER-SITE ADMINISTRATOR Work Phone: Start: 08-11-2022 Oscillating positive expiratory pressure (flutter) physiotherapy Maximilian Costa [place] Work Phone: Start: 08-10-2022 Glucose measurement, blood Awa Da Silva MD Work Phone: Start: 08-10-2022 Radiologic exam abdo men 1 view Conchita Louise MD Work Phone: Start: 08-10-2022 FLEXIBLE ENDOSCOPIC EVALUATION OF SWALLOWING Conchita Louise MD Work Phone: Start: 08-10-2022 Ct head/brain w/o co ntrast material Eduard eHrring MD, PhD Work Phone: Start: 08-10-2022 Glucose measurement, blood Awa Da Silva MD Work Phone: Start: 08-10-2022 Glucose measurement, blood Awa Da Silva MD Work Phone: Start: 08-10-2022 Hemoglobin glycosylated a1c Mariposa Duong Guille [facility] Work Phone: Start: 08-10-2022 Hepatic function panel Mariposasoo Han APRN-[facility] Work Phone: Start: 08-10-2022 Lipid 1996 panel - S josé miguel or Plasma Marah Baptiste OD Work Phone: Start: 08-10-2022 Oscillating positive expiratory pressure (flutter) physiotherapy Maximilian Costa [place] Work Phone: Start: 08-09-2022 Glucose measurement, blood Sera Saldivar MD Work Phone: Start: 08-09-2022 End: 08-09-2022 Glucose measurement, blood Sera Champagne i, MD Work Phone: Start: 08-09-2022 Oscillating positive expiratory pressure (flutter) physiotherapy Maximilian CELAYA Work Phone: Start: 08-09-2022 Ct head/brain w/o co ntrast material Sera Saldivar MD Work Phone: Start: 08-09-2022 IMPLANT RECORD (SCANNED) Other Other Start: 08-09-2022 Radiologic exam ches t single view Kya Trinidad CAR DELIVERER-SITE ADMINISTRATOR Work Phone: Start: 08-09-2022 Assay of magnesium Kisha ica Duong Han CAR DELIVERER-SITE ADMINISTRATOR Work Phone: Start: 08-09-2022 End: 08-09-2022 Glucose measurement, blood Sera Champagne i, MD Work Phone: Start: 08-09-2022 Cerebral perfusion a nalys ct w/blood flow&volume José Miguel Mcgovern MD Work Phone: Start: 08-09-2022 End: 08-09-2022 Perq art trluml m-thrombec &/nfs intracranial Ángel Patel MD, PhD Work Phone: Start: 08-09-2022 Ct head/brain w/o co ntrast material José Miguel Mcgovern MD Work Phone: Start: 08-09-2022 CT angiography of he ad and neck Dr. Nando Esposito Work Phone: Start: 08-09-2022 CT of head without contrast Dr. Nando Esposito Work Phone: Start: 08-09-2022 Plain chest X-ray Dr. Desiree Esposito Work Phone: Start: 07-29-2022 Blood coagulation panel Natividad Martini Start: 07-27-2022 End: 07-27-2022 Colonoscopy NANDO CARRANZA I Start: 07-23-2022 End: 07-23-2022 Release Blood Product-Packed Red Blood Cells Veronika Alonzo Start: 07-22-2022 Release Blood Product-Packed Red Blood Cells Veronika Alonzo Start: 07-22-2022 End: 07-22-2022 Release Blood Product-Packed Red Blood Cells Veronika Alonzo Start: 07-22-2022 Antibody screen NANDO ESPOSITO Comment on above: Performed By: #### T +S ####[id number] [place] [address] Start: 07-22-2022 Release Blood Product-Packed Red Blood Cells Veronika Alonzo Start: 07-18-2022 CBC W Auto Different ial panel - Blood Carlos Panchal Start: 07-15-2022 End: 07-15-2022 EKG impression Sofia Huang Start: 07-15-2022 End: 07-15-2022 Gas panel - Arterial blood Sofia Hesham yip Start: 07-13-2022 Operation on brain Nandoreema Louis Vaibhav Work Phone: Comment on above: blood clot removed; Start: 07-10-2022 Thyrotropin [Units/v olume] in Serum or Plasma Nando Esposito MD MPH Work Phone: Start: 07-09-2022 End: 07-09-2022 EKG impression Kia Rashid Start: 07-05-2022 Plain chest X-ray Dr. Dseiree Esposito Work Phone: Start: 05-17-2022 Plain chest X-ray Start: 08-15-2020 Hemoglobin glycosylated a1c Nando Esposito Start: 08-15-2020 Lipid panel Nando arriaza Start: 08-15-2020 TSH WITH REFLEX TO F REE T4 IF ABNORMAL Nando Esposito Start: 05-12-2016 Mammography Lin hagen MD Work Phone: Operative procedure on foot Nando Esposito Viral antigen assay Viral antigen assay Dr. Nando Esposito Work Phone: Plan of Treatment Date Care Activity Detail Author Start: 07-27-2032 Screening for malign ant neoplasm of colon [facility] Start: 08-10-2027 Lipid panel [facility] Start: 08-10-2027 LIPID SCREEN LIPID SCREEN [facility] Start: 09-18-2025 DIABETES SCREEN DIABETES SCREEN [facility] Start: 09-18-2025 Diabetes Screening Diabetes Screenin g [facility] Start: 09-06-2025 DIABETES SCREEN DIABETES SCREEN [facility] Start: 03-21-2025 ambulatory Ambulatory Facility:[facility] Start: 06-07-2024 End: 06-07-2024 Patient encounter procedure 06/07/2024 9:00 AM EDT Office Visit [facility] [address] [place] [address] Marah Baptiste, OD [address] [place] [address] diabetic eye exam Ophthalmology Comment on above: diabetic eye exam Start: 05-13-2024 Influenza vaccination Influenz a Vaccine (Season Ended) [facility] Start: 11-28-2023 End: 11-28-2023 Patient encounter procedure 11/28/2023 9:00 AM EDT Office Visit [facility] [address] [place] [id number] Nando Esposito MD MPH [address] [facility] [place], [address] [place] [id number] [facility] Start: 10-29-2023 Creatinine measurement Creatinine Le rayo [facility] Start: 10-29-2023 Potassium measurement Potassium Leve l [facility] Start: 09-12-2023 Behavioral Health Screening Behavioral Health Screening [facility] Start: 09-12-2023 Depression Assessment Depression Ass [facility] Start: 08-20-2023 Finding of potassium level (finding) [facility] Start: 08-18-2023 Patient referral [facility] Work Phone: Start: 08-17-[address] [facility] Start: 07-29-2023 Patient referral [facility] Work Phone: Start: 07-25-2023 Patient discharge [facility] Start: 07-18-2023 [facility] Start: 07-12-2023 Measuring intake and output [facility] Start: 07-12-[address] [facility] Start: 07-10-2023 Thyroid stimulating hormone measurement TSH Level [facility] Start: 07-06-2023 Following clinical pathway protocol [facility] Start: 07-06-2023 Application of device [facility] Start: 07-05-2023 Speech therapy assessment [facility] Start: 07-05-2023 Following clinical pathway protocol [facility] Start: 07-05-2023 Consultation [facility] Start: 07-05-2023 Referral to service [facility] Start: 07-05-2023 Urinary bladder training [facility] Start: 07-05-2023 Admission procedure [facility] Start: 07-05-2023 Patient referral to dietitian [facility] Start: 07-05-2023 Referral to occupati onal therapist [facility] Start: 07-05-2023 Vital signs measurements [facility] Start: 07-05-2023 End: 07-05-2023 [facility] Start: 07-05-2023 Patient discharge [facility] Start: 07-01-2023 Care planning and problem solving actions [facility] Start: 06-23-2023 [facility] Start: 06-22-2023 [facility] Start: 06-22-2023 Referral to occupati onal therapist [facility] Start: 06-22-2023 Referral to service [facility] Start: 06-22-2023 Following clinical pathway protocol [facility] Start: 06-21-2023 Application of intermittent pneumatic compression device [facility] Start: 06-21-2023 [facility] Start: 06-21-2023 Consultation [facility] Start: 06-21-2023 Consultation [facility] Start: 06-21-2023 Assessment of risk o f venous thromboembolism [facility] Start: 06-21-2023 Care regimes management [facility] Start: 06-21-2023 Insertion of cathete r into peripheral vein [facility] Start: 06-21-2023 Measuring intake and output [facility] Start: 06-21-2023 Notification of physician [facility] Start: 06-21-2023 Providing care accor ding to standard [facility] Start: 06-21-2023 Provision of activit y privileges [facility] Start: 06-21-2023 Referral to service [facility] Start: 06-21-2023 [facility] Start: 06-21-2023 End: 06-21-2023 Following clinical pathway protocol [facility] Start: 06-21-2023 Hospital admission, emergency, from emergency room, medical nature [facility] Start: 06-21-2023 Admission procedure [facility] Start: 06-21-2023 Consultation [facility] Start: 06-20-2023 End: 06-21-2023 [facility] Start: 06-14-2023 Echo tthrc r-t 2d w/wom-mode compl spec&colr d TTE W/DOPPLER COMPLETE [facility] Start: 05-30-2023 End: 05-30-2023 ambulatory 05/30/2023 1:[address] [facility] [address] [place] [address] Arrived [facility] [address] Comment on above: Arrived Start: 05-23-2023 ADLTSPLIT, Provider: [facility] RM 1,[id number], Status: Pen, Time: 8:00 PM ADLTSPLIT, Provider: [facility] RM 1,[id number], Status: Pen, Time: 8:00 PM [facility]-Gastroenterology- [facility] 6 [facility] Work Phone: Start: 05-13-2023 Covid-19 Vaccine ( season) Covid-19 Vaccine ( season) [facility] Start: 05-13-2023 Influenza vaccination U [facility] Start: 02-14-2023 End: 02-15-2024 Urate [Mass/volume] in Serum or Plasma Uric acid Lab Routine Podagra Expected: 02/14/2023 (Approximate), Expires: 02/15/2024 [facility] Work Phone: Comment on above: Expected: 02/14/2023 (Approximate), Expires: 02/15/2024 Start: 01-31-2023 Echo transthorc r-t 2d w/wo m-mode rec f-up/lmtd TTE F-UP OR LMTD [facility] Start: 01-26-2023 Hemoglobin A1c measurement Diabetes: Hemoglobin A1C [facility] Start: 12-16-2022 ADLTPSG, Provider: REBECCA MICHEL [facility] RM 1,[id number], Status: Pen, Time: 8:00 PM ADLTPSG, Provider: REBECCA [facility] RM 1,[id number], Status: Pen, Time: 8:00 PM [facility] Work Phone: Start: 11-20-2022 Control nasal hemorr brit anterior simple CONTROL OF NOSEBLEED [facility] Start: 10-18-2022 End: 10-18-2022 ambulatory [facility] [place] Start: 09-17-2022 Patient discharge [facility] Start: 09-15-2022 [facility] Start: 09-12-2022 [facility] Start: 09-12-2022 [facility] Start: 09-10-2022 Patient encounter procedure [facility]ocr[facility]ology [place] Start: 09-10-2022 JASMINE, Provider : Dana Alexander, Status: Pen, Time: 11:00 AM JASMINE, Provider: Dana Alexander, Status: Pen, Time: 11:00 AM -Gastroenterology- [facility] Work Phone: Start: 09-10-2022 Referral to occupati onal therapist [facility] Start: 09-10-2022 Referral to service [facility] Start: 09-10-2022 Following clinical pathway protocol [facility] Start: 09-10-2022 Assessment of risk o f venous thromboembolism [facility] Start: 09-10-2022 Care regimes management [facility] Start: 09-10-2022 Incentive spirometry [facility] Start: 09-10-2022 Inhalation therapy procedure [facility] Start: 09-10-2022 Insertion of cathete r into peripheral vein [facility] Start: 09-10-2022 Introduction of urin luciana catheter [facility] Start: 09-10-2022 Measuring intake and output [facility] Start: 09-10-2022 Providing care accor ding to standard [facility] Start: 09-10-2022 Provision of activit y privileges [facility] Start: 09-10-2022 End: 09-10-2022 [facility] Start: 09-10-2022 Verification routine [facility] Work Phone: Start: 09-10-2022 Admission procedure [facility] Start: 09-10-2022 Patient referral to dietitian [facility] Start: 09-10-2022 [facility] Start: 08-19-2022 NPV, Provider: Mitchell Ontiveros, Status: Pen, Time: 2:00 PM NPV, Provider: Mitchell Ontiveros, Status: Pen, Time: 2:00 PM [facility] Work Phone: Start: 08-19-2022 Patient encounter procedure [facility] Start: 08-13-2022 Patient encounter procedure [facility] Start: 08-13-2022 VIRFUVHANK, Provider : Nando Esposito, Status: Pen, Time: 12:40 PM VIRFUVHOME, Provider: Nando Esposito, Status: Pen, Time: 12:40 PM [facility] Work Phone: Start: 08-09-2022 Oxygen therapy [facility] Start: 08-09-2022 [facility] Start: 08-04-2022 NPV, Provider: Mitchell Ontiveros, Status: Pen, Time: 11:00 AM NPV, Provider: Mitchell Ontiveros, Status: Pen, Time: 11:00 AM [facility] Work Phone: Start: 08-04-2022 Patient encounter procedure [facility] Start: 07-16-2022 EPV, Provider: Nando Esposito, Status: Pen, Time: 10:20 AM EPV, Provider: Nando Esposito, Status: Pen, Time: 10:20 AM [facility] Work Phone: Start: 07-06-2022 Patient discharge [facility] Work Phone: Start: 07-06-2022 [facility] Work Phone: Start: 07-06-2022 [facility] Work Phone: Start: 07-06-2022 Following clinical pathway protocol [facility] Work Phone: Start: 07-06-2022 Ambulation without limitation [facility] Work Phone: Start: 07-06-2022 Assessment of risk o f venous thromboembolism [facility] Work Phone: Start: 07-06-2022 Care regimes management [facility] Work Phone: Start: 07-06-2022 Catheterization of vein [facility] Work Phone: Start: 07-06-2022 Insertion of cathete r into peripheral vein [facility] Work Phone: Start: 07-06-2022 Measuring intake and output [facility] Work Phone: Start: 07-06-2022 Medication education [facility] Work Phone: Start: 07-06-2022 Providing care accor ding to standard [facility] Work Phone: Start: 07-06-2022 [facility] Work Phone: Start: 07-06-2022 Patient referral to dietitian [facility] Work Phone: Start: 07-06-2022 [facility] Work Phone: Start: 07-05-2022 Urinalysis complete panel - Urine [facility] Work Phone: Start: 07-05-2022 Verification routine [facility] Work Phone: Start: 07-05-2022 Admission procedure [facility] Work Phone: Start: 05-19-2022 Care planning and problem solving actions [facility] Work Phone: Start: 05-19-2022 Patient discharge [facility] Work Phone: Start: 05-19-2022 Notification of physician [facility] Work Phone: Start: 05-19-2022 Patient education [facility] Work Phone: Start: 05-19-2022 Pulse taking [facility] Work Phone: Start: 05-19-2022 Taking patient vital signs [facility] Work Phone: Start: 05-19-2022 Wound care [facility] Work Phone: Start: 05-19-2022 [facility] Work Phone: Start: 05-18-2022 [facility] Work Phone: Start: 05-18-2022 Catheterization of vein [facility] Work Phone: Start: 05-18-2022 Medication not administered [facility] Work Phone: Start: 05-18-2022 [facility] Work Phone: Start: 05-18-2022 Referral to ob/gyn doctor [facility] Work Phone: Start: 05-18-2022 [facility] Work Phone: Start: 05-18-2022 Care planning and problem solving actions [facility] Work Phone: Start: 05-17-2022 Following clinical pathway protocol [facility] Work Phone: Start: 05-17-2022 Assessment of risk o f venous thromboembolism [facility] Work Phone: Start: 05-17-2022 Care regimes management [facility] Work Phone: Start: 05-17-2022 Catheterization of vein [facility] Work Phone: Start: 05-17-2022 Insertion of cathete r into peripheral vein [facility] Work Phone: Start: 05-17-2022 Introduction of urin luciana catheter [facility] Work Phone: Start: 05-17-2022 Measuring intake and output [facility] Work Phone: Start: 05-17-2022 Medication education [facility] Work Phone: Start: 05-17-2022 Oxygen therapy [facility] Work Phone: Start: 05-17-2022 Patient referral to dietitian [facility] Work Phone: Start: 05-17-2022 Providing care accor ding to standard [facility] Work Phone: Start: 05-17-2022 Provision of activit y privileges [facility] Work Phone: Start: 05-17-2022 Referral to service [facility] Work Phone: Start: 05-17-2022 [facility] Work Phone: Start: 05-17-2022 Admission procedure [facility] Work Phone: Start: 05-17-2022 End: 05-18-2022 [facility] Work Phone: Start: 05-17-2022 [facility] Work Phone: Start: 05-13-[address] [facility] Start: 05-03-2022 ALONZO, Provider : Nando Esposito, Status: Pen, Time: 3:20 PM ALONZO, Provider: Nando Esposito, Status: Pen, Time: 3:20 PM [facility] Work Phone: Start: 04-05-2022 EPV, Provider: Nando Esposito, Status: Pen, Time: 2:40 PM EPV, Provider: Nando Esposito, Status: Pen, Time: 2:40 PM [facility] [employer] Work Phone: Start: 09-12-2021 DEPRESSION ASSESSMENT DEPRESSION ASS ESSMENT [facility] Start: 08-17-2021 EPV, Provider: Nando Esposito, Status: Pen, Time: 4:20 PM EPV, Provider: Nando Esposito, Status: Pen, Time: 4:20 PM [facility] Start: 07-20-2021 VIRFUVHOME, Provider : Nando Esposito, Status: Pen, Time: 8:00 AM VIRFUVHOME, Provider: Nando Esposito, Status: Pen, Time: 8:00 AM [facility] Work Phone: Start: 2021 RSV Vaccine (1 - 1-d ose 60+ series) RSV Vaccine (1 - 1-dose 60+ series) [facility] Start: 06-15-2021 VIRFUVHOME, Provider : Nando Esposito, Status: Pen, Time: 7:40 AM VIRFUVHOME, Provider: Nando Esposito, Status: Pen, Time: 7:40 AM [facility] Work Phone: Start: 06-08-2021 VIRFUVHOME, Provider : Nando Esposito, Status: Pen, Time: 5:00 PM VIRFUVHOME, Provider: Nando Esposito, Status: Pen, Time: 5:00 PM [facility] [email or web address] [facility] Work Phone: Start: 06-28-2019 HPV TESTING HPV TESTING [facility] Start: 06-28-2019 PAP TESTING PAP TESTING [facility] Start: 06-28-2019 Screening for malign ant neoplasm of cervix [facility] Start: 05-12-2017 Mammography MAMMOGRAM [facility] Start: 05-12-2017 Screening for malign ant neoplasm of breast Mammogram Screening [facility] Start: 2011 SHINGRIX VACCINE (1 of 2) SHINGRIX VACCINE (1 of 2) [facility] Start: 2011 Zoster Vaccines (1 of 2) Zoste r Vaccines (1 of 2) [facility] Start: 2011 [facility] Start: 2006 COLOGUARD (FIT-DNA) COLOGUARD (FIT-D NA) [facility] Start: 2006 Colonoscopy COLONOSCOPY [facility] Start: 2006 COLORECTAL CANCER SCREENING COLORECTAL CANCER SCREENING [facility] Start: [address] COLONOGRAPHY [facility] Start: 2006 FECAL OCCULT BLOOD FECAL OCCULT BLOO D [facility] Start: 2006 LIPID SCREEN LIPID SCREEN [facility] Start: 2006 Screening for malign ant neoplasm of colon [facility] Start: 2006 SIGMOIDOSCOPY SIGMOIDOSCOPY [facility] Start: 2001 Screening for malign ant neoplasm of breast [facility] Start: 1983 DTaP/Tdap/Td Vaccine s (1 - Tdap) DTaP/Tdap/Td Vaccines (1 - Tdap) [facility] Start: 1982 Screening for malign ant neoplasm of cervix [facility] Start: 1980 Third diphtheria, tetanus and acellular pertussis (DTaP) vaccination [facility] Start: 1980 Urine microalbumin profile [facility] Start: 1979 ANNUAL PCP TEAM APPLICATION CHEMIST ERIN DISEASE VISIT ANNUAL PCP TEAM CHRONIC DISEASE VISIT [facility] Start: 1979 BP CONTROLLED (<130/80) BP CON TROLLED (<130/80) [facility] Start: 1979 HEPATITIS C SCREENING HEPATITIS C [facility] Start: 1979 Hepatitis C screening Hepatitis C [facility] Start: 1979 HIV SCREENING HIV SCREENING [facility] Start: 1979 HIV screening HIV Screening [facility] Start: 1976 HIV screening [facility] Start: 1971 Diabetic foot examination Diabetes: Foot Exam [facility] Start: 1971 Glaucoma screening Diabetes: R etinopathy Screening [facility] Start: 1971 Ophthalmic examinati on and evaluation Diabetes: Retinopathy Screening [facility] Start: 1967 Pneumococcal Vaccine : Pediatrics (0 to 5 Years) and At-Risk Patients (6 to 64 Years) (1 - PCV) Pneumococcal Vaccine: Pediatrics (0 to 5 Years) and At-Risk Patients (6 to 64 Years) (1 - PCV) [facility] Start: 1962 MMR Vaccines (1 of 1 - Standard series) MMR Vaccines (1 of 1 - Standard series) [facility] Start: 1961 COVID-19 VACCINE (#1) COVID-19 VACCI NE (#1) [facility] Start: 1961 [facility] Start: 1961 Hepatitis C screening [facility] Start: 1961 HIV screening HIV Screening [facility] Start: 1961 Lipid panel Lipid Panel [facility] Start: 1961 Screening for malign ant neoplasm of colon [facility] Start: 1961 Tetanus vaccination [facility] Start: 1961 Yearly Adult [facility] fast bacilli culture [facility] End: 08-09-2022 FLUORO IMAGING FOR NEURO ENDOVASCULAR [facility] In-Center Sleep Stud y (Non-Sleep Provider Only) In-Center Sleep Study (Non-Sleep Provider Only) Sleep Center Routine Observed sleep apnea Cerebrovascular accident (CVA), unspecified mechanism (CMS/HCC) Ordered: 02/14/2023 [facility] Service Area Work Phone: Comment on above: Ordered: 02/14/2023 Mycobacterium sp identified in Unspecified specimen by Organism specific culture [facility] Patient Education [facility] Work Phone: Patient referral [facility] Work Phone: [facility] Work Phone: [facility] NEGATED: Highlighted row has been ruled out! Planned Goals not documented [facility] Work Phone: Payers Date Payer Category Payer Unknown [id number] 2024 Self-pay [id number] 2022 Medicaid [id number] 2022 Unknown [id number] 2021 Unknown [id number] 2017 Unknown 1961 Unknown [id number] 2.16.8 40.1.766747.3.579.2.627 1961 Unknown [id number] 2.16.84 0.1.363636.3.579.2.651 1961 Unknown [id number] 2.16.84 0.1.869738.3.579.2.651 1961 Unknown [id number] 2.16. 840.1.594889.3.579.2.356 1961 Unknown [id number] 2.16. 840.1.010667.3.579.2.356 1961 Unknown [id number] 2.16. 840.1.279049.3.579.2.356 1961 Unknown [id number] 2.16. 840.1.115342.3.579.2.356 1961 Unknown [id number] 2.16. 840.1.697150.3.579.2.356 1961 Unknown [id number] 2.16. 840.1.290543.3.579.2.356 1961 Unknown [id number] 2.16. 840.1.887631.3.579.2.356 1961 Unknown [id number] 2.16. 840.1.360949.3.579.2.356 1961 Unknown [id number] 2.16. 840.1.115064.3.579.2.356 1961 Unknown [id number] 2.16. 840.1.587123.3.579.2.356 1961 Unknown [id number] 2.16. 840.1.225764.3.579.2.594 1961 Unknown [id number] 2.16.8 40.1.534894.3.579.2.1244 1961 Unknown [id number] 2.16.84 0.1.153618.3.579.2.1244 1961 Unknown [id number] 2.16.84 0.1.412242.3.579.2.1245 1961 Unknown [id number] 2.16.8 40.1.740454.3.579.2.1069 1961 Unknown [id number] 2.16.8 40.1.602093.3.579.2.1069 Unknown [facility] [id number] Unknown [id number] 2.16.8 40.1.090953.3.579.2.462 Unknown [id number] 2.16.8 40.1.329634.3.579.2.462 Unknown [id number] 2.16.8 40.1.285571.3.579.2.462 Unknown [id number] 2.16.8 40.1.549696.3.579.2.462 Unknown [id number] 2.16.8 40.1.881578.3.579.2.462 Unknown [id number] 2.16.8 40.1.513072.3.579.2.462 Unknown [id number] 2.16.8 40.1.930099.3.579.2.462 Unknown [id number] 2.16.8 40.1.605282.3.579.2.462 Unknown [id number] 2.16.8 40.1.180499.3.579.2.462 Unknown [id number] 2.16.8 40.1.131725.3.579.2.462 Unknown [id number] 2.16.8 40.1.115476.3.579.2.462 Unknown [id number] 2.16.8 40.1.606828.3.579.2.462 Unknown [id number] 2.16.8 40.1.475664.3.579.2.462 Unknown [id number] 2.16.8 40.1.808728.3.579.2.462 Unknown [id number] 2.16.8 40.1.345364.3.579.2.462 Social History Date Type Detail Facility Start: 02-14-2023 End: 08-30-2023 Never smoker Never smoker [facility] Work Phone: Start: 05-17-2022 End: 10-21-2023 Tobacco smoking status NHIS Unknown if ever smoked [facility] Start: 11-30-2015 None [facility] Start: 11-30-2015 Spouse/ Signif icant Other [facility] Start: 1960 Sex Assigned At Female [facility] Start: 1960 Sex Assigned At [facility] Start: 06-28-2014 End: 02-14-2023 Tobacco smoking status NHIS Never smoked tobacco [facility] Start: 06-28-2014 End: 02-14-2023 Tobacco use and exposure Smokeless tobacco non-user [facility] Start: 04-28-2022 End: 10-07-2023 Alcohol intake Current non-drinker of alcohol (finding) [facility] Start: 02-14-2023 End: 05-30-2023 Alcohol intake Lifetime non-drinker (finding) [facility] Work Phone: Start: 02-14-2023 End: 08-30-2023 Tobacco use panel [facility] Work Phone: Start: 02-04-2023 End: 02-14-2023 Exposure to SARS-CoV-2 (event) Not sure [facility] National Score (1-100), lower number is lower risk 57 [facility] Start: 07-25-2023 Non-smoker [facility] NEGATED: Highlighted row - - [facility] Work Phone: Medical Equipment Procedure Code Equipment Code Equipment Origin al Text Equipment Identifier Dates Start: 07-18-2019 Comment on above: use to inject 1-4 ti mes a day as directed [employer]ix Serjio ts CHECK BLOOD SUGAR DAILY Quantity: 100 Refills: 3 Vaibhav MEEHAN, MPH, Nando Espinoza Start : 18-Jul-2019 Active Start: 07-18-[address] In Vitro Strip check blood sugar once a day Quantity: 100 Refills: 3 Vaibhav MEEHAN, MPH, Nando Espinoza Start : 18-Jul-2019 Active Start: 07-18-2019 [employer]ix Serjio ts CHECK BLOOD SUGAR DAILY Quantity: 100 Refills: 3 Vaibhav MEEHAN, MPH, Nando Espinoza Start : 18-Jul-2019 Active Start: 07-18-2019 In vitro glucose test strips ; 1 each subcutaneous 4 times a day to measure glucose before meals and at bedtime ADOD 08/03/22 M2B [id number] Quantity: 400 Refills: 0 Ordered: 03-Aug-2022 Benjamin Dana Start: 03-Aug-2022 End: 31-Oct-2022 Generic Substitution Allowed [id number] Start: 08-03-2022 End: 10-31-2022 insulin pen need les 32G 4mm ; 1 each subcutaneous 4 times a day with insulin injections ADOD 08/03/22 M2B [id number] Quantity: 400 Refills: 0 Ordered: 03-Aug-2022 Benjamin Dana Start: 03-Aug-2022 End: 31-Oct-2022 Generic Substitution Allowed [id number] Start: 08-03-2022 End: 10-31-2022 lancets ; 1 lanc et(s) subcutaneous 4 times a day to measure glucose ADOD 08/03/22 M2B [id number] Quantity: 400 Refills: 0 Ordered: 03-Aug-2022 Dana Alexander Start: 03-Aug-2022 End: 31-Oct-2022 Generic Substitution Allowed [id number] Start: 08-03-2022 End: 10-31-2022 [id number] Start: 08-09-2022 [Order 1 Start] Name: insulin lispro (HumaLOG) injection Signed Summary: Subcutaneous, 4 TIMES DAILY WITH MEALS & AT BEDTIME, First dose on Tue08/11/22 at 1330, Until Discontinued Insulin to carb ratio: Standard: 1 unit insulin = 10 grams carbs every meal and at bedtime Cor rection Factor: 151-200 = 1 unit; 201-250 = 2 units; 251-300 = 3 units; 301-350 = 4 units; 351-400 = 5 units; Kwikpen: Prime pen before each injection; refer to Pen Priming and Care Handout for further details. Warning! Confirm patient. Insulin pen is for labeled individual patient use ONLY. [Order 1 End] [Order 2 Start] Name: insulin lispro (HumaLOG) injection Signed Summary: Subcutaneous, NEEDED, Starting on Tue08/11/22 at 1326, Until Tue08/20/22 at 1544, Other, As needed for snacks Insulin to carb ratio: Standard: 1 unit insulin = 10 grams carbs Corre ction Factor: not to be used with this order. Kwik pen: Prime pen before each injection; refer to Pen Priming and Care Handout for further details. Warning! Confirm patient. Insulin pen is for labeled individual patient use ONLY. [Order 2 End] [Order 3 Start] Name: BLOOD GLUCOSE (POC DEVICE) Signed Summary: Routine, 4 TIMES DAILY BEFORE MEALS & AT BEDTIME, First occurrence on Tue08/11/22 at 1530 If any Blood Glucose (POC) is greater than 300mg/dl, then repeat Blood Glucose (POC) in 2 hours. If the initial blood glucose was greater than 300mg/dl and if second blood glucose is greater than 200md/dl, then notify Pattern Gater. [Order 3 End] [Order 4 Start] Name: BLOOD GLUCOSE (POC DEVICE) Signed Summary: Routine, DIRECTED, Starting on Tue08/11/22 at 1326, Until Specified For all Blood Glucose LESS THAN 80 mg/dL, treat per Hypoglycemia in Non- Adults Clinical Practice Guideline (CPG) and recheck glucose 15 min after treatment. Repeat per CPG until glucose GREATER THAN 80 mg/dL. Once glucose IS GREATER THAN 80 mg/dL, recheck Blood Glucose every 1 hour x2, then resume as previously ordered. For Blood Glucose LESS THAN 80 mg/dL on admission OR LESS than 45 mg/dL at any time, obtain POC Blood Glucose every 4 hours for 6 occurrences AFTER treating per CPG. Obtain blood glucose for symptoms of hypoglycemia: sweating, shaking, fatigue, rapid pulse, slow thinking & dizziness. Notify physician w/results. Obtain blood glucose for symptoms of hyperglycemia: excessive thirst, blurred vision, excessive urination & tiredness. Notify physician w/results. If patient NPO, obtain POC Blood Glucose prior to administration of any insulin products. [Order 4 End] [Order 5 Start] Name: COMMUNICATION ORDER FOR NURSING CARE: For Blood Glucose LESS THAN 80 mg/dl Signed Summary: Routine, CONTINUOUS, Starting on Tue08/11/22 at 1326, Until Specified For Blood Glucose LESS THAN 80 mg/dl follow Hypoglycemia in Non- Adults Clinical Practice Guideline (CPG) [Order 5 End] [Order 6 Start] Name: dextrose 50% injection 7.5-25 g Signed Summary: 7.5-25 g, Intravenous, ADMINISTER DIRECTED, Starting on Tue08/11/22 at 1326, Until Tue08/20/22 at 1544, Blood glucose <80 mg/dL For patients who are not alert, are NPO, or are on IV insulin infusion administer as directed per Hypoglycemia in Non- Adults Clinical Practice Guideline. For Blood Glucose: 60-79 mg/dL administer 7.5 gm (15ml); 45-59 mg/dL administer 12.5 gm (25ml); less than 45mg/dL administer 25gm (50ml). ++ If additional dextrose 50% needed, contact pharmacy or obtain from crash cart ++ [Order 6 End] [Order 7 Start] Name: glucose (GLUTOSE) 40 % oral gel 1-2 Tube Signed Summary: 1-2 Tube, Oral, ADMINISTER DIRECTED, Starting on Tue08/11/22 at 1326, Until Tue08/20/22 at 1544, Blood glucose <80 mg/dL For patients who are alert, able to tolerate PO intake and with intact cognitive status administer as directed per Hypoglycemia in Non- Adults Clinical Practice Guideline. For Blood Glucose: 60-79 mg/dL administer 1 tube; 45-59 mg/dl administer 1.5 tubes; less than 45 mg/dL administer 2 tubes. &nbs p;Each tube of 37.5g delivers 15g of carbohydrate.&nbsp ;++ Consider juice or food per Clinical Practice Guideline first if appropriate. For Insta-Glucose product: Each tube of 31g delivers 24g of carbohydrate. Percent strength 77.4% represents glucose content, equal to ~40% dextrose content.++ [Order 7 End] [Order 8 Start] Name: NOTIFY PHYSICIAN, Blood Glucose LESS THAN 80 mg/dl Signed Summary: Routine, CONTINUOUS, Starting on Tue08/11/22 at 1326, Until Specified Who to Notify: Pattern Gater For all Blood Glucose LESS THAN 80 mg/dl, notify Pattern Gater after treatment per Hypoglycemia in Non- Adults Clinical Practice Guideline [Order 8 End] [Order 9 Start] Name: Carbohydrate counts with meals Signed Summary: Routine, CONTINUOUS, Starting on Tue08/11/22 at 1326, Until Specified Carbohydrate counts are to be done after each patient meal and with snack. [Order 9 End] [id number] Start: 08-11-2022 End: 08-20-2022 check blood suga r once a day [id number] Start: 07-18-2019 Use to inject 1- 4 times daily as directed. [id number] Start: 02-11-2023 End: 02-11-2024 use to inject 1- 4 times a day as directed [id number] Start: 04-17-2023 Goals Date Patient Goal Desired Activity /State Functional Status Date Assessment Result Facility 07-25-2023 Functional status Activity Abili ty Independent [facility] Work Phone: 07-24-2023 Functional status Bedrest [facility] Work Phone: 07-05-2023 Functional status Bedrest [facility] Work Phone: 09-17-2022 Functional status With Assist of 1 [facility] Work Phone: 09-17-2022 Functional status Patient Activity Chair [facility] Work Phone: 07-06-2022 Functional status Ambulates [facility] Work Phone: 05-19-2022 Functional status Ambulates [facility] Work Phone: Functional observable [facility] NEGATED: Highlighted row Functional performance Functional status health issues are not documented Disease [facility] Work Phone: Mental Status Date Assessment Result Facility 07-25-2023 Cognitive function Voice/Name [facility] Work Phone: 07-05-2023 Cognitive function Voice/Name [facility] Work Phone: 09-17-2022 Cognitive function Voice/Name [facility] Work Phone: 09-09-2022 Cognitive function Level Of Cons ciousness Awake;Alert;Appropriate ;Follows Commands [facility] Work Phone: 08-09-2022 Cognitive function Voice/Name [facility] Work Phone: 07-22-2022 Cognitive functi ons :34 [facility] 07-16-2022 Cognitive functi ons :26 [facility] 07-06-2022 Cognitive function Voice/Name [facility] Work Phone: 05-19-2022 Cognitive function Voice/Name [facility] Work Phone: 05-17-2022 Cognitive function Level Of Cons ciousness Awake;Alert;Appropriate [facility] Work Phone: NEGATED: Highlighted row Cognitive function [Interpretation] Cognitive status health issues are not documented Disease [facility] Work Phone: Clinical Notes 04-12-2021 to 11-10-2023 Marah Baptiste OD - 11/10/2023 10:24 AM EST Note Date & Type Note Facility 11-10-2023 Note HNO ID: [id number] Author: MARAH BAPTISTE OD Service: ? Author Type: LATHE TENDER Type: Progress Notes Filed: 11/10/2023 10:29 Note Text: 1. Myopia, bilateral 2. Presbyopia Finalized updated contact lens to improve distance AND near Follow-up as scheduled for ALVINO in May Marah Baptiste OD November 10, 2023 10:24 AM [facility] 11-10-2023 History of Present illness Narrative 1. Myopia, bilateral 2. Presbyopia Finalized updated contact lens to improve distance AND near Follow-up as scheduled for ALVINO in May Marah Baptiste OD November 10, 2023 10:24 AM documented in this encounter [facility] 10-20-2023 Discharge summary Note Date/Time October 20, 2023 1:06pm [facility] Physical Therapy Health[address] [place] [address] / REHABILITATION SERVICES DISCHARGE SUMMARY MR#: [id number] Acct: [id number] Name: CAMILLE GARDINER Rep #: [id number] : 1960 63 From: Marc Walters PT, ATC Referring Dr.: Dr. Lisbet Herrera, DO Status: REG RCR Insurance[facility] [employer] SELF [employer]Y INSURANCE Discharge Summary D/C summary: It has been my pleasure to treat CAMILLE GARDINER referred by Dr. Lisbet Herrera DO, with the diagnosis of L knee pain for a total of 19 visit(s). Discharge Date: Please see the following information for a summary of their discharge status. Subjective Subjective: I could use more PT, but I also think I can do it on my own Pain L knee: Pain Intensity (Out of 10): 1 R hip: Pain Intensity (Out of 10): 1 Overall Improvement % Improvement: 95 Objective Objective/Function: L knee pain ranges from 1-5/10 Pt is I with HEP L knee MMT: flex= 27, ext= 44 #F L knee ROM: 0-3-115 degrees Pt is able to ambulate greater than 340 feet I without difficulty Rx goals achieved Goals Goal 1:: Decrease L knee pain x 50% to aid with sleep Goal Progress: Goal Met Goal 2:: Increase L knee strength x 10#F to aid with stair negotiation Goal Progress: Goal Met Goal 3:: Increase L knee ROM x 30 degrees to aid with restoring a more normalized gait pattern Goal Progress: Goal Met Goal 4:: Pt will be able to ambulate greater than 300 feet to aid with communityambulation Goal Progress: Goal Met Goal 5:: I with HEP Goal Progress: Goal Met Plan Plan: Discharge to [facility] D/C Information d/c sentence: If there are questions or concerns regarding this patient's physical therapy, please feel free to call me at [phone]. Thank you for the referral of thispatient. Sincerely, Marc Walters, PT, ATC Balance/Gait/Functional tests Balance/Special Test Scores Lower Extremity Functional Score: 76 Improvement % Improvement: 95 <Electronically signed by Marc Walters PT, ATC> 10/20/23 1306 CC: Dr. Lisbet Herrera DO; Dr. Carlos Pace MD ~ [facility] Signed [facility] Work Phone: 1(918) 702-455401-26-2024 NoteHNO ID: [id number] Author: MARAH BAPTISTE OD Service: ? Author Type: LATHE TENDER Type: Progress Notes Filed: 10/07/2023 10:47 Note Text: 1. Myopia, bilateral 2. Presbyopia A: Good vision, fit, and comfort in current contact lenses. P: Finalized and printed new spec and clrx. Educated pt on proper wear and care of contact lenses. Return to clinic in one year for contact lens evaluation or sooner with any problems. 3. 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 Ptosis of both eyelids Patient previous interested in blepharoplasty eval but planning to follow-up in future 6. Vitreous floaters of left eye Decreased-monitor Follow-up as needed for contact lens follow-up or in 7 months for ALVINO Marah Baptiste, OD October 07, 2023 10:[address] [facility]11-10-2023 Discharge summary Author Carlos Pace [facility] July 22, 2023 2:20pm Note Date/Time July 22, 2023 2:14pm [facility] Medical Records Department [address] [place] [address] Discharge Summary 07/22/23 1411 MR#: [id number] Acct: [id number] Name: CAMILLE GARDINER Rep #:[id number] : 1960 63 From: Carlos Pace MD PCP: Dr. Nando Esposito MD Status: ADM IN Location: [place] [address] Providers Date of Admission: 07/05/23 Primary Care Physician: Dr. Nando Esposito MD Consultations 07/05/23 17:16 Consult: Infectious Disease Routine Consulting Provider: Comfort Cheung Reason for Consult: Septic knee EMERGENT Consult: No MD Notified: Yes Date Notified: 07/05/23 Time Notified: 17:16 Method of Notification: Verbal Reason For Visit: L SEPTIC KNEE Diagnosis Discharge Diagnosis (1) Debility: Status: Acute Code(s): R53.81 - Other malaise (2) Septic joint of left knee joint: Status: Acute Code(s): M00.9 - Pyogenic arthritis, unspecified (3) JAMAAL (obstructive sleep apnea): Status: Suspected Code(s): G47.33 - Obstructive sleep apnea (adult) (pediatric) (4) CVA (cerebral vascular accident): Status: Acute Code(s): I63.9 - Cerebral infarction, unspecified Qualifiers: CVA mechanism: embolism Precerebral and cerebral artery: unspecified cerebral artery Qualified Code(s): I63.40 - Cerebral infarction due to embolismof unspecified cerebral artery (5) Diabetes mellitus type 2 in obese: Status: Acute Code(s): E11.69 - Type 2 diabetes mellitus with other specified complication; E66.9 - Obesity, unspecified (6) Type II diabetes mellitus: Status: Chronic Code(s): E11.9 - Type 2 diabetes mellitus without complications Qualifiers: Diabetes mellitus complication status: with hyperglycemia Diabetes mellitus bed bug exterminator insulin use: with bed bug exterminator use Qualified Code(s): E11.65 - Type 2 diabetes mellitus with hyperglycemia; Z79.4 - USP (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 of insulin (7) Hypertension: Status: Chronic Code(s): I10 - Essential (primary) hypertension Qualifiers: Hypertension type: primary hypertension Qualified Code(s): I10 - Essential (primary) hypertension (8) HLD (hyperlipidemia): Status: Acute Code(s): E78.5 - Hyperlipidemia, unspecified Qualifiers: Hyperlipidemia type: unspecified Qualified Code(s): E78.5 - Hyperlipidemia, unspecified (9) Atrial fibrillation: Status: Acute Code(s): I48.91 - Unspecified atrial fibrillation Qualifiers: Atrial fibrillation type: permanent Qualified Code(s): I48.21 - Permanent atrial fibrillation (10) CHF (congestive heart failure): Status: Acute Code(s): I50.9 - Heart failure, unspecified Qualifiers: Heart failure type: systolic Heart failure chronicity: chronic Qualified Code(s): I50.22 - Chronic systolic (congestive) heart failure Plan 63 year old female with below past medical history hospitalized for left septic knee, S. Aureus bacteremia, admitted to for 3 hours daily rehabilitation, strengthening, intravenous antibiotics, prior to discharge home with . * Debility - PT/OT/ST. * Pain - Tylenol 1000mg q8, Tramadol 50mg q6h prn, 100mg qhs, Oxycodone 5mg q4h prn, Arthritis compound 2 clicks topical bid. * Bowel - Miralax 17gm daily, senna/colace 2 tablets bid, Dulcolax 10mg pr x 1 prn, MOM 30ml po x 1 prn. * DVT prophylaxis - on Eliquis. * Atrial fibrillation - Metoprolol succinate 50mg qam, 25mg qhs, Amiodarone 200mg daily, Eliquis 5mg bid. * Hyperlipidemia - Atorvastatin 40mg qhs. * Muscle spasm - Baclofen 5mg tid. * Left septic knee/Staph bacteremia - Cefazolin 2gm iv q8 thru 07/21/2023. * Diabetes Mellitus II - Trulicity 0.75mg per week, Jardiance 25mg daily, Humalog 7 units tidcm, SSI. * Depression - Duloxetine 120mg qhs. * Iron deficiency anemia - Ferrous sulfate 325mg daily. * Heart failure preserved ejection fraction - Metoprolol succinate 50mg qam, 25mg qhs, Losartan 25mg daily, Lasix 40mg daily. * Hypertension - Metoprolol succinate 50mg qam, 25mg qhs, Losartan 25mg daily, Labetalol 100mg q6h prn HTN. * Hypomagnesemia - Magnesium Chloride 128mg daily. * Tinea Corporis - Miconazole topical bid. Medications at Discharge Home Medications duloxetine 60 mg capsule,delayed release 120 mg PO QHS mental health 11/08/21 ferrous sulfate 325 mg (65 mg iron) tablet (FeroSul) 325 mg PO DAILY@1200 Supplement #0 tabs 09/17/22 apixaban 5 mg tablet (Eliquis) 5 mg PO BID Blood thinner #180 tabs 11/04/22 atorvastatin 40 mg tablet 40 mg PO QHS cholesterol #90 tabs 11/04/22 dapagliflozin propanediol 10 mg tablet (Farxiga) 10 mg PO DAILY Diabetes #90 tabs 02/09/23 amiodarone 200 mg tablet 200 mg PO DAILY BP 05/09/23 furosemide 40 mg tablet 40 mg PO DAILY Fluid retention 05/09/23 magnesium 250 mg tablet 500 mg PO DAILY supplement 05/09/23 trazodone 100 mg tablet 100 mg PO DAILY insomnia 05/09/23 dulaglutide 0.75 mg/0.5 mL subcutaneous pen injector (Trulicity) 0.75 mg (0.5 mL) subcut QWEEK Diabetes #2 mL 05/18/23 acetaminophen 500 mg tablet 1,000 mg (2 x 500 mg) PO Q8 Pain #0 tabs 07/05/23 insulin glargine 100 unit/mL (3 mL) subcutaneous pen (Lantus Solostar U-100 Insulin) 10 unit subcut QHS diabetes 07/05/23 insulin lispro 100 unit/mL subcutaneous pen (Humalog KwikPen (U-100) Insulin) 12unit (0.12 mL) subcut TID diabetes #54 mL 07/05/23 baclofen 10 mg tablet 5 mg (1/2 x 10 mg) PO TID 30 days #45 tabs 07/22/23 gabapentin 100 mg capsule 100 mg PO TIDCM 30 days #90 caps 07/22/23 losartan 25 mg tablet 25 mg PO DAILY BP 30 days #30 tabs 07/22/23 metoprolol succinate 25 mg tablet,extended release 24 hr 25 mg PO QHS 30 days #30 tabs 07/22/23 tramadol 50 mg tablet 50 mg PO Q6H PRN Pain Score 1-10 7 days #28 tabs 07/22/23 Hospital Course Operations None Procedures None Summary of Care Provided Minutes Spent on Discharge: 35 Hospital Course: 63 year old female with below past medical history hospitalized for left septic knee, S. Aureus bacteremia, admitted to for 3 hours daily rehabilitation, strengthening, intravenous antibiotics, prior to discharge home with . Discharge to sleep study 07/25/2023, the home with 07/16/2023, [facility] PT/OT, no DME. Physical Exam Const alert General Appearance: cooperative HEENT normocephalic Eyes PERRL and EOMs intact bilaterally Neck supple, no JVD and no carotid bruits Resp normal respiratory effort, normal air movement and clear to auscultation bilaterally Cardio regular rate and regular rhythm GI normal to inspection, nondistended, normoactive bowel sounds, non-tender and non-distended Extremity normal capillary refill General Extremity: Negative for edema Skin no rashes or lesions noted General Skin Exam: no breakdown Psych affect normal Appearance: appropriate Weight / BMI Weight Weight: 92.4 kg Body Mass Index (BMI) 36.1 ABG / Lab / Microbiology Data 07/20/23 07:00 07/20/23 07:00 Indicators for Scoring Admitted with or Primary Diagnosis of CVA/Stroke: No Hx of CVA/Stroke: Yes Modified Esteban Score MRS Score at time of Evaluation: 2-Slight disability D/C Instructions Discharge Diet: No restrictions Discharge Activity: Return to Normal Activity, May Shower and Use Walker Weight Bearing Status: Weight bearing as tolerated Call your doctor if you observe: Fever of 101 or Higher, Inability to urinate, Inability to have a bowel movement, Shortness of breath, Dizziness, Fainting spells, Swelling in the ankles, Chest pain and Uncontrolled pain Additional Instructions: Discharge to sleep study 07/25/2023, the home with 07/16/2023, [facility] PT/OT, no DME. Meaningful Use Info Meaningful Use Diagnoses (Choose all that apply): None applicable Discharge Plan Admission Admit Date/Time: 07/05/23 16:25 Primary Reason for Your Visit: Debility. Attending Provider: Lisbet Herrera Primary Care Provider: Nando Esposito Consulting Providers: Comfort Cheung Instructions Additional Instructions / Restrictions: Discharge to sleep study 07/25/2023, the home with 07/16/2023, [facility] PT/OT, no DME. Discharge Orders/Prescriptions Prescriptions: New tramadol 50 mg Tablet 50 mg PO Q6H PRN (Reason: Pain Score 1-10) 7 Days Qty: 28 0RF baclofen 10 mg Tablet 5 mg PO TID 30 Days Qty: 45 0RF gabapentin 100 mg Capsule 100 mg PO TIDCM 30 Days Qty: 90 0RF metoprolol succinate 25 mg Tablet Extended Release 24 Hr 25 mg PO QHS 30 Days Qty: 30 0RF Continued Eliquis 5 mg tablet 5 mg PO BID Qty: 180 3RF atorvastatin 40 mg tablet 40 mg PO QHS Qty: 90 3RF Farxiga 10 mg tablet 10 mg PO DAILY Qty: 90 3RF amiodarone 200 mg tablet 200 mg PO DAILY magnesium 250 mg tablet 500 mg PO DAILY furosemide 40 mg tablet 40 mg PO DAILY trazodone 100 mg tablet 100 mg PO DAILY duloxetine 60 mg capsule,delayed release(DR/EC) 120 mg PO QHS ferrous sulfate [FeroSul] 325 mg (65 mg iron) Tablet 325 mg PO DAILY@1200 Qty: 0 0RF insulin glargine [Lantus Solostar U-100 Insulin] 100 unit/mL (3 mL) insulin pen 10 unit subcut QHS losartan 25 mg Tablet 25 mg PO DAILY 30 Days Qty: 30 0RF acetaminophen 500 mg Tablet 1,000 mg PO Q8 Qty: 0 0RF insulin lispro [Humalog KwikPen Insulin] 100 unit/mL insulin pen 12 unit subcut TID Qty: 54 1RF Trulicity 0.75 mg/0.5 mL pen injector 0.75 mg subcut QWEEK Qty: 2 2RF Discontinued metoprolol succinate 50 mg tablet extended release 24 hr 50 mg PO DAILY Qty: 90 3RF mecobalamin (vitamin B12) 5,000 mcg tablet,disintegrating 5,000 mcg PO DAILY nystatin [Nyamyc] 100,000 unit/gram Powder 1 applic topical BID PRN (Reason: redness) Protocol: *Topical Application Instructions APPLICATION INSTRUCTIONS: apply to affected areas cefazolin 2 gram recon soln 2 g IV Q8H 24 Days Rx Instructions: dx: MSSA bacteremia stop date 07/21/23 weekly bmp, cbc, and esr; fax to [phone] polyethylene glycol 3350 17 gram Powder In Packet 17 g PO DAILY Qty: 0 0RF Referrals / Follow Up: Sleep, Study [Other] - 07/25/23 8:00 pm Samara Clinton MD [Med Staff - Active Staff] - Comfort Cheung MD [Med Staff - Active Staff] - Anatoliy Moreno MD [Med Staff - Active Staff] - 07/28/23 11:30 am Carlos Pace Chi, MD [Med Staff - Active Staff] - Within 1 Week (New PCP appointment.) Disposition Disposition (needs filled in before D/C Order can be placed): Home, Self Care 07/22/23 1420 <Electronically signed by Carlos Pace MD> Cosigner Signature (if applicable): CC: Dr. Nando Esposito MD; Dr. Carlos Pace MD~ Signed [facility] Work Phone: 1(539) 428-663611-08-2023 Progress note Author Carlos Pace [facility] July 20, 2023 8:07pm Note Date/Time July 20, 2023 8 :07pm [facility] Medical Records Department [address] [place] [address] Progress Note 07/20/232004 MR#: [id number] Acct: [id number] Name: CAMILLE GARDINER Rep #:[id number] : 1960 63 From: Carlos Pace MD PCP: Dr. Nando Esposito MD Status: ADM IN Location: [place] [address]1 Subjective Subjective Patient seen, examined. Sitting up in chair, eating breakfast. She is looking forward to going home to care for her horses. Objective Data Objective Data Vital Signs: Vital Signs Temp Pulse Resp BP Pulse Ox O2 Del Method 98.4 F 64 18 143/53 H 98 Room Air 07/20/23 08:11 07/20/23 09:14 07/20/23 08:11 07/20/23 08:11 07/20/23 08:11 07/20/23 09:23 Oxygen Delivery Method Room Air Weight: 93.5 kg Body Mass Index (BMI) 36.5 Intake & Output: Intake and Output for Last 24 Hours 07/18/23 07/19/23 07/20/23 23:59 23:59 23:59 Intake Total 1740 / 1740 2872 / 2872 1410 / 1410 Output Total 420 / 870 801 / 801 500 / 500 Balance 1320 / 870 2071 / 2071 910 / 910 Lab / Micro Data Attestation: I reviewed the patient's lab results. 07/20/23 07:00 07/20/23 07:00 Labs: Laboratory Results - last 24 hr 07/20/23 07:00: WBC 8.4, RBC 3.60 L, Hgb 11.0 L, Hct 35.0 L, MCV 97.2, MCH 30.6,MCHC 31.4 L, RDW Std Deviation 44.3 H, RDW Coeff of Patricia 12.3, Plt Count 331, MPV9.4, Immature Gran % (Auto) 0.500, Neut % (Auto) 71.6 H, Lymph % (Auto) 16.8 L, [place] % (Auto) 9.0, Eos % (Auto) 1.5, Baso % (Auto) 0.6, Absolute Neuts (auto) 6.0, Absolute Lymphs (auto) 1.42, Nucleated RBC % 0, ESR 79 H, Sodium 134 L, Potassium 4.3, Chloride 102, Carbon Dioxide 28.0, Anion Gap 4 L, BUN 28 H, Creatinine 1.37 H, Estim Creat Clear Calc 33.67, Est GFR (MDRD) Af Amer 50 L, Est GFR (MDRD) Non-Af 42 L, BUN/Creatinine Ratio 20.4 H, Glucose 211 H, Calcium 9.1 Physical Exam Const alert General Appearance: cooperative HEENT normocephalic Eyes PERRL and EOMs intact bilaterally Neck supple, no JVD and no carotid bruits Resp normal respiratory effort, normal air movement and clear to auscultation bilaterally Cardio regular rate and regular rhythm GI normal to inspection, nondistended, normoactive bowel sounds, non-tender and non-distended Extremity normal capillary refill Extremity Narrative: Left upper extremity PICC line. General Extremity: Negative for edema Skin no rashes or lesions noted General Skin Exam: no breakdown Psych affect normal Appearance: appropriate Assessment & Plan Assessment/Plan (1) Debility: (2) Septic joint of left knee joint: (3) JAMAAL (obstructive sleep apnea): (4) CVA (cerebral vascular accident): QUALIFIERS: CVA mechanism: embolism Precerebral and cerebral artery: unspecified cerebral artery Qualified Code(s): I63.40 - Cerebral infarction due to embolism of unspecified cerebral artery (5) Diabetes mellitus type 2 in obese: (6) Type II diabetes mellitus: QUALIFIERS: Diabetes mellitus complication status: with hyperglycemia Diabetes mellitus half-way insulin use: with half-way use Qualified Code(s): E11.65 - Type 2 diabetes mellitus with hyperglycemia; 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 treater (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 of insulin (7) Hypertension: QUALIFIERS: Hypertension type: primary hypertension Qualified Code(s): I10 - Essential (primary) hypertension (8) HLD (hyperlipidemia): QUALIFIERS: Hyperlipidemia type: unspecified Qualified Code(s): E78.5 - Hyperlipidemia, unspecified (9) Atrial fibrillation: QUALIFIERS: Atrial fibrillation type: permanent Qualified Code(s): I48.21 - Permanent atrial fibrillation (10) CHF (congestive heart failure): QUALIFIERS: Heart failure type: systolic Heart failure chronicity: chronic Qualified Code(s): I50.22 - Chronic systolic (congestive) heart failure PLAN: Plan 63 year old female with below past medical history hospitalized for left septic knee, S. Aureus bacteremia, admitted to for 3 hours daily rehabilitation, strengthening, intravenous antibiotics, prior to discharge home with . * Debility - PT/OT/ST. * Pain - Tylenol 1000mg q8, Tramadol 50mg q6h prn, 100mg qhs, Oxycodone 5mg q4h prn, Arthritis compound 2 clicks topical bid. * Bowel - Miralax 17gm daily, senna/colace 2 tablets bid, Dulcolax 10mg pr x 1 prn, MOM 30ml po x 1 prn. * DVT prophylaxis - on Eliquis. * Atrial fibrillation - Metoprolol succinate 50mg qam, 25mg qhs, Amiodarone 200mg daily, Eliquis 5mg bid. * Hyperlipidemia - Atorvastatin 40mg qhs. * Muscle spasm - Baclofen 5mg tid. * Left septic knee/Staph bacteremia - Cefazolin 2gm iv q8 thru 07/21/2023. * Diabetes Mellitus II - Trulicity 0.75mg per week, Jardiance 25mg daily, Humalog 7 units tidcm, SSI. * Depression - Duloxetine 120mg qhs. * Iron deficiency anemia - Ferrous sulfate 325mg daily. * Heart failure preserved ejection fraction - Metoprolol succinate 50mg qam, 25mg qhs, Losartan 25mg daily, Lasix 40mg daily. * Hypertension - Metoprolol succinate 50mg qam, 25mg qhs, Losartan 25mg daily, Labetalol 100mg q6h prn HTN. * Hypomagnesemia - Magnesium Chloride 128mg daily. * Tinea Corporis - Miconazole topical bid. Capacity Capacity Assessment Tool Can the patient make a choice & communicate that choice?: Yes Can the patient understand benefits, risks and alternatives?: Yes Can the patient make a logical, rational choice?: Yes Is the choice the patient makes consistent w/ their values?: Yes Is there an impending, emergent risk to the patient?: No Does the patient have an Advance Directive?: No Is there a Surrogate Available?: Yes i.e. HCPOA: Yes i.e. close relative (spouse, child, parent, sibling)?: Yes 07/20/232006 <Electronically signed by Carlos Pace MD> Carlos Pace MD Cosigner Signature (if applicable): CC: ~ Signed [facility] Work Phone: 1(434) 575-698611-07-2023 Progress note Author Carlos Sanjeev [facility] July 19, 2023 2:01pm Note Date/Time July 19, 2023 1 :45pm [facility] Medical Records Department [address] [place] [address] Progress Note 07/19/23 1345 MR#: [id number] Acct: [id number] Name: CAMILLE GARDINER Rep #:[id number] : 1960 63 From: Carlos Pace MD PCP: Dr. Nando Esposito MD Status: ADM IN Location: [place] [address] Subjective Subjective Patient seen, examined. She has no new problems, concerns, issues, complaints. Objective Data Objective Data Vital Signs: Vital Signs Temp Pulse Resp BP Pulse Ox O2 Del Method 98.9 F 65 16 120/72 99 Room Air 07/19/23 07:46 07/19/23 08:21 07/19/23 07:46 07/19/23 08:21 07/19/23 07:46 07/19/23 07:46 Oxygen Delivery Method Room Air Weight: 93.5 kg Body Mass Index (BMI) 36.5 Intake & Output: Intake and Output for Last 24 Hours 07/17/23 07/18/23 07/19/23 23:59 23:59 23:59 Intake Total 1740 / 1740 2060 / 2060 Output Total 420 / 870 800 / 800 Balance 1320 / 870 1260 / 1260 Lab / Micro Data Attestation: I reviewed the patient's lab results. 07/17/23 09:20 07/17/23 09:20 Physical Exam Const alert General Appearance: cooperative HEENT normocephalic Eyes PERRL and EOMs intact bilaterally Neck supple, no JVD and no carotid bruits Resp normal respiratory effort, normal air movement and clear to auscultation bilaterally Cardio regular rate and regular rhythm GI normal to inspection, nondistended, normoactive bowel sounds, non-tender and non-distended Extremity normal capillary refill General Extremity: Negative for edema Skin no rashes or lesions noted General Skin Exam: no breakdown Psych affect normal Appearance: appropriate Assessment & Plan Assessment/Plan (1) Debility: (2) Septic joint of left knee joint: (3) JAMAAL (obstructive sleep apnea): (4) CVA (cerebral vascular accident): QUALIFIERS: CVA mechanism: embolism Precerebral and cerebral artery: unspecified cerebral artery Qualified Code(s): I63.40 - Cerebral infarction due to embolism of unspecified cerebral artery (5) Diabetes mellitus type 2 in obese: (6) Type II diabetes mellitus: QUALIFIERS: Diabetes mellitus complication status: with hyperglycemia Diabetes mellitus bed bug exterminator insulin use: with half-way use Qualified Code(s): E11.65 - Type 2 diabetes mellitus with hyperglycemia; 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 treater (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 of insulin (7) Hypertension: QUALIFIERS: Hypertension type: primary hypertension Qualified Code(s): I10 - Essential (primary) hypertension (8) HLD (hyperlipidemia): QUALIFIERS: Hyperlipidemia type: unspecified Qualified Code(s): E78.5 - Hyperlipidemia, unspecified (9) Atrial fibrillation: QUALIFIERS: Atrial fibrillation type: permanent Qualified Code(s): I48.21 - Permanent atrial fibrillation (10) CHF (congestive heart failure): QUALIFIERS: Heart failure type: systolic Heart failure chronicity: chronic Qualified Code(s): I50.22 - Chronic systolic (congestive) heart failure PLAN: Plan 63 year old female with below past medical history hospitalized for left septic knee, S. Aureus bacteremia, admitted to for 3 hours daily rehabilitation, strengthening, intravenous antibiotics, prior to discharge home with . * Debility - PT/OT/ST. * Pain - Tylenol 1000mg q8, Tramadol 50mg q6h prn, 100mg qhs, Oxycodone 5mg q4h prn, Arthritis compound 2 clicks topical bid. * Bowel - Miralax 17gm daily, senna/colace 2 tablets bid, Dulcolax 10mg pr x 1 prn, MOM 30ml po x 1 prn. * DVT prophylaxis - on Eliquis. * Atrial fibrillation - Metoprolol succinate 50mg qam, 25mg qhs, Amiodarone 200mg daily, Eliquis 5mg bid. * Hyperlipidemia - Atorvastatin 40mg qhs. * Muscle spasm - Baclofen 5mg tid. * Left septic knee/Staph bacteremia - Cefazolin 2gm iv q8 thru 07/21/2023. * Diabetes Mellitus II - Trulicity 0.75mg per week, Jardiance 25mg daily, Humalog 7 units tidcm, SSI. * Depression - Duloxetine 120mg qhs. * Iron deficiency anemia - Ferrous sulfate 325mg daily. * Heart failure preserved ejection fraction - Metoprolol succinate 50mg qam, 25mg qhs, Losartan 25mg daily, Lasix 40mg daily. * Hypertension - Metoprolol succinate 50mg qam, 25mg qhs, Losartan 25mg daily, Labetalol 100mg q6h prn HTN. * Hypomagnesemia - Magnesium Chloride 128mg daily. * Tinea Corporis - Miconazole topical bid. Capacity Capacity Assessment Tool Can the patient make a choice & communicate that choice?: Yes Can the patient understand benefits, risks and alternatives?: Yes Can the patient make a logical, rational choice?: Yes Is the choice the patient makes consistent w/ their values?: Yes Is there an impending, emergent risk to the patient?: No Does the patient have an Advance Directive?: No Is there a Surrogate Available?: Yes i.e. HCPOA: Yes i.e. close relative (spouse, child, parent, sibling)?: Yes 07/19/23 1401 <Electronically signed by Carlos Pace MD> Carlos Pace MD Cosigner Signature (if applicable): CC: ~ Signed [facility] Work Phone: 1(521) 940-886611-06-2023 Progress note Author [facility] July 18, 2023 6:41pm Note Date/Time July 18, 2023 1 2:02pm [facility] Medical Records Department [address] [place] [address] Progress Note 07/18/23 1153 MR#: [id number] Acct: [id number] Name: CAMILLE GARDINER Rep #:[id number] : 1960 63 From: Lisbet Herrera DO PCP: Dr. Nando Esposito MD Status: ADM IN Location: [place] [address] Subjective Subjective Afebrile VSS Maintaining appropriate oxygen saturation on RA Oral intake is good Discussed with nursing - no problems that need addressed Reviewed the PT/OT/ST notes Medication list reviewed. There was a lot of hysteria with screaming and crying and elevated BP yesterday morning because of L knee and hip pain. She did not have a fall. She says that nursing hyperextended her LLE when trying to assist her. She has been afebrile. Lab done yesterday showed a white blood cell count of 12 with 71.8% neutrophilsand normal immature granulocytes. The ESR was 62 which is stable and certainly down from admission to the hospital when it was over the 130. The CRP was 65.6 which is down from 126 at admission to the hospital. BMP showed a sodium of 136, potassium of 3.6, bicarb of 25 and a BUN of 28 with a creatinine of 1.54 which is up from 1.28 on 07/13/2023. We did not order an XRAY because she did not fall. She has been emotionally labile during her stay on rehab and she has had outbursts more than once with crying and c/o pain. She is prescribed Tramadol 50 mg Q 6H but she had not taken any Tramadol since 07/13 until yesterday and she only took 1 dose yesterday. She refuses to take pain medication because it makes me constipated. Dr. Muniz ordered Oxycodone PRN. According to the nurses notes from Tuesday night she awake around 3 AM c/o severe pain in the left knee. She stated that her polar care pads fell off while she was sleeping and the pain got worse. She was calling out loudly. This morning she told me that nursing dropped her........she did not have a falland there is nothing in the nurses notes saying she was dropped The pain and hysteria was not relieved with the pain medication or Baclofen but, the pain resolved after 1 mg of Ativan PO. This evening she is telling me that she has numbness in both legs and pain radiating into her legs, L>R. She tells me that the L hip is painful and that she has a hx of back problems. I observed her walking and she has an antalgic gait today. The Left leg is externally rotated when she is ambulating. She has a lip. She wanted to use a bedside commode but, she was encouraged to ambulate to the BR with the FWW and she did OK although she c.o pain. She has not had any W/U for back pain at this institution. She initially made progress with therapy but, for the past 4-5 days or more she has been regressing and not performing as well on testing. I think there is a great deal of emotional overlay with this patient. She has a hx of anxiety/depression and she gets herself so worked up about many different thingsthat she has tachycardia, elevated BP, increased pain and screaming. The pain finally resolved Tuesday after 1 mg of Ativan. She is much calmer today and we have had no drama. She was not dropped and she did not have a fall. She denies chest pain, shortness of breath, lightheadedness, palpitations, nausea/vomiting/abdominal pain, dysuria and calf pain. She has not taken any Oxycodone or any Tramadol today. She has had Tylenol and Baclofen (for muscle spasms in the L thigh anteriorly Objective Data Objective Data Vital Signs: Vital Signs Temp Pulse Resp BP Pulse Ox O2 Del Method 96.7 F L 70 18 100/47 L 98 Room Air 07/18/23 09:50 07/18/23 09:50 07/18/23 09:50 07/18/23 09:50 07/18/23 09:50 07/18/23 09:50 Oxygen Delivery Method Room Air Weight: 206 lb 2.115 oz Body Mass Index (BMI) 36.5 Intake & Output: Intake and Output for Last 24 Hours 07/17/23 07/17/23 07/18/23 00:59 23:59 23:59 Intake Total 930 / 930 Output Total 120 / 120 Balance 810 / 810 Lab / Micro Data 07/17/23 09:20 07/17/23 09:20 Physical Exam Const alert, oriented x3 and no apparent distress Constitutional Narrative: Making good eye contact, appropriate General Appearance: cooperative HEENT moist oral mucous membranes HEENT Narrative: No evidence thrush Resp normal respiratory effort, no use of accessory muscles and clear to auscultationbilaterally Resp Narrative: Not tachypneic and no conversational dyspnea. Effort and Inspection: able to speak in complete sentences Cardio regular rate, regular rhythm, no murmurs, no rub and no gallops Cardio Narrative: Heart sounds are somewhat distant and this is likely secondary to body habitus. No ectopy. GI normal to inspection, nondistended, normoactive bowel sounds and non-tender GI Narrative: No guarding with palpation. Obese. Extremity no calf tenderness Extremity Narrative: The L knee is not erythematous. There is no significant increase in warmth to touch when compared to the R. The swelling has gone down since admission to rehab and the thigh anteriorly is soft with no cramping. She has subjective numbness in both legs. General Extremity: Negative for cyanosis Skin Skin Narrative: No rashes, no skin breakdown. She has large areas of depigmentation over several areas of her body. Has never seen a lap polisher. Psych affect normal Psych Narrative: Appropriate, making good eye contact. Able to stay on topic and focus. No flight of ideas. Does not appear anxious or depressed. Conversant and relating well to staff. Assessment & Plan Assessment/Plan (1) Debility: (2) Septic joint of left knee joint: QUALIFIERS: Septic arthritis organism: staphylococcal Qualified Code(s): M00.062 - Staphylococcal arthritis, left knee (3) MSSA bacteremia: (4) Effusion, left knee: (5) Diabetes mellitus type 2 in obese: (6) Chronic renal failure, stage 3b: (7) Type II diabetes mellitus: QUALIFIERS: Diabetes mellitus complication status: with hyperglycemia Diabetes mellitus half-way insulin use: with bed bug exterminator use Qualified Code(s): E11.65 - Type 2 diabetes mellitus with hyperglycemia; 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 treater (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 of insulin (8) Obesity: QUALIFIERS: Obesity type: due to excess calories Obesity classification: adult class 2 (BMI 35 - 39.9) Serious obesity comorbidity presence: with serious comorbidity Body mass index: BMI 39.0-39.9 Qualified Code(s): E66.01 - Morbid (severe) obesity due to excess calories; Z68.39 - Body mass index [BMI] 39.0-39.9, adult (9) Osteoarthritis of left knee: QUALIFIERS: Osteoarthritis type: primary Qualified Code(s): M17.12 - Unilateral primary osteoarthritis, left knee (10) Hypertension: QUALIFIERS: Hypertension type: primary hypertension Qualified Code(s): I10 - Essential (primary) hypertension (11) HLD (hyperlipidemia): QUALIFIERS: Hyperlipidemia type: unspecified Qualified Code(s): E78.5 - Hyperlipidemia, unspecified (12) Cardiomyopathy: QUALIFIERS: Cardiomyopathy type: other Qualified Code(s): I42.8 - Other cardiomyopathies (13) Atrial fibrillation: QUALIFIERS: Atrial fibrillation type: permanent Qualified Code(s): I48.21 - Permanent atrial fibrillation (14) CVA (cerebral vascular accident): QUALIFIERS: CVA mechanism: embolism Precerebral and cerebral artery: unspecified cerebral artery Qualified Code(s): I63.40 - Cerebral infarction due to embolism of unspecified cerebral artery (15) Hypoglycemia: (16) JAMAAL (obstructive sleep apnea): PLAN: Plan 1. Continue therapy 2. I tend to think there is less participation as we progress in therapy and more complaints. She is c/o terrible pain but, she has not taken any PRN pain medication today? She changes the story about why she has increased pain early Tuesday morning and now says she was dropped. This is not true. She is very upset about her horses and not being able to see them and about possibly having a decrease in her Medicaid/disability because she has also been receiving her ex-'s benefit in addition to disability and she now says she can not live on this and will have to go back to work. We will finish the prescribed course of antibiotics and DC on July 22 to home with her current . 3. Will have her follow up with pain management at [facility] and she requested a new PCP so I recommended Dr. Awa Henning or Dr. Pace to her. 4. I think she needs psychotherapy after leaving here. Charges/Coding Visit Charges Inpatient E&M: 97428 Subs Hosp L2 07/18/23 184 <Electronically signed by Lisbet Herrera DO> Lisbet Herrera DO Cosigner Signature (if applicable): CC: ~ Signed [facility] Work Phone: 1([phone]) 215-260511-04-2023 Progress note Author Lisbet Herrera [facility] July 16, 2023 6:21pm Note Date/Time July 15, 2023 2 :07pm [facility] Medical Records Department [address] [place] [address] Progress Note 07/15/23 1407 MR#: [id number] Acct: [id number] Name: CAMILLE GARDINER Rep #:[id number] : 1960 63 From: Lisbet Herrera DO PCP: Dr. Nando Esposito MD Status: ADM IN Location: [address] Subjective Subjective Afebrile VSS Maintaining appropriate oxygen saturation on RA Oral intake is good Blood sugars are under good control at the present time with no hypoglycemia. Discussed with nursing - no problems that need addressed Reviewed the PT/OT/ST notes Medication list reviewed. Paddy was on the phone when I entered the room and she is quite upset and tearful. There is a problem with her Medicaid/disability and she tells me her income is to be cut. She requested to talk to the social media intern and I relayed the messageto Dana. She will be seen this afternoon. Pain is adequately controlled. She denies chest pain, shortness of breath at rest, palpitations, lightheadedness, dysuria and calf pain. Objective Data Objective Data Vital Signs: Vital Signs Temp Pulse Resp BP Pulse Ox O2 Del Method 97.4 F L 78 16 142/67 H 98 Room Air 07/15/23 08:32 07/15/23 10:00 07/15/23 08:32 07/15/23 08:32 07/15/23 08:32 07/15/23 08:32 Oxygen Delivery Method Room Air Weight: 206 lb 2.115 oz Body Mass Index (BMI) 36.5 Intake & Output: Intake and Output for Last 24 Hours 07/13/23 07/14/23 07/15/23 23:59 23:59 23:59 Intake Total 780 / 780 690 / 690 2049 Output Total 350 / 350 450 / 450 Balance 430 / 430 690 / 690 1600 / 1600 Lab / Micro Data 07/13/23 05:33 07/13/23 05:33 Physical Exam Const alert Constitutional Narrative: Tearful and upset today Resp clear to auscultation bilaterally Effort and Inspection: Negative for tachypneic Cardio regular rate, regular rhythm and no gallops GI normal to inspection, nondistended, normoactive bowel sounds, soft to palpation and non-tender Skin General Skin Exam: no breakdown Rashes: no rashes Psych Mood & Affect: anxious Assessment & Plan Assessment/Plan (1) Debility: (2) Septic joint of left knee joint: QUALIFIERS: Septic arthritis organism: staphylococcal Qualified Code(s): M00.062 - Staphylococcal arthritis, left knee (3) MSSA bacteremia: (4) Effusion, left knee: (5) Diabetes mellitus type 2 in obese: (6) Chronic renal failure, stage 3b: (7) Type II diabetes mellitus: QUALIFIERS: Diabetes mellitus complication status: with hyperglycemia Diabetes mellitus half-way insulin use: with half-way use Qualified Code(s): E11.65 - Type 2 diabetes mellitus with hyperglycemia; Z79.4 -USP (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 of insulin (8) Obesity: QUALIFIERS: Obesity type: due to excess calories Obesity classification: adult class 2 (BMI 35 - 39.9) Serious obesity comorbidity presence: with serious comorbidity Body mass index: BMI 39.0-39.9 Qualified Code(s): E66.01 - Morbid (severe) obesity due to excess calories; Z68.39 - Body mass index [BMI] 39.0-39.9, adult (9) Osteoarthritis of left knee: QUALIFIERS: Osteoarthritis type: primary Qualified Code(s): M17.12 - Unilateral primary osteoarthritis, left knee (10) Hypertension: QUALIFIERS: Hypertension type: primary hypertension Qualified Code(s): I10 - Essential (primary) hypertension (11) HLD (hyperlipidemia): QUALIFIERS: Hyperlipidemia type: unspecified Qualified Code(s): E78.5 - Hyperlipidemia, unspecified (12) Cardiomyopathy: QUALIFIERS: Cardiomyopathy type: other Qualified Code(s): I42.8 - Other cardiomyopathies (13) Atrial fibrillation: QUALIFIERS: Atrial fibrillation type: permanent Qualified Code(s): I48.21 - Permanent atrial fibrillation (14) CVA (cerebral vascular accident): QUALIFIERS: CVA mechanism: embolism Precerebral and cerebral artery: unspecified cerebral artery Qualified Code(s): I63.40 - Cerebral infarction due to embolism of unspecified cerebral artery (15) Hypoglycemia: (16) JAMAAL (obstructive sleep apnea): PLAN: Plan 1. Continue therapy 2. I spoke to Ophelia MONTILLA and she will meet with the patient to discuss difficulties with Medicaid/disability. 3. Recheck lab next Tuesday 4. Antibiotics will complete after the last dose on 07/21/2023 and she will discharge on 07/22. I spoke to the sleep lab and they are trying to get her scheduled for the night of the for her sleep study. Charges/Coding Visit Charges Inpatient E&M: 04632 Subs Hosp L2 07/16/23 1821 <Electronically signed by Lisbet Herrera DO> Lisbet Herrera DO Cosigner Signature (if applicable): CC: ~ Signed [facility] Work Phone: [phone]) 603-890311-04-2023 Progress note Author Lisbet Olverajack [facility] July 16, 2023 6:16pm Note Date/Time July 16, 2023 1 2:54pm [facility] Medical Records Department [address] [place] [address] Progress Note 07/16/23 1250 MR#: [id number] Acct: [id number] Name: CAMILLE GARDINER Rep #:[id number] : 1960 63 From: Lisbet Herrera DO PCP: Dr. Nando Esposito MD Status: ADM IN Location: [place] [address] Subjective Subjective SetAfebrile VSS- Systolic BP is more often than not > 130 and sometimes into the 160's. Shehas a hx of CVA in the past. Maintaining appropriate oxygen saturation on RA Oral intake is good I reviewed the blood sugar record and the blood sugars are under excellent control with no hypoglycemia with the current regimen. Discussed with nursing - no problems that need addressed Reviewed the PT/OT/ST notes Medication list reviewed. She has not taken any tramadol since 13 July. Shetook the baclofen 3 times yesterday and has had it 1 time so far today. Camille tells me that she is feeling better today. She is less anxious and less upset. She has decided to go home on 07/22/2023 and the sleep lab is trying to get her sleep study scheduled for that night rather than 07/25/2023. I think she will be less anxious and more in control when she gets home. She is quite worried about her horses and her financial affairs. She tells me her pain is adequately controlled. She denies any mouth pain, painful swallowing and vaginal itching or discharge. She has no diarrhea. She denies chest pain, shortness of breath at rest, palpitations, nausea/vomiting, dysuria and calf pain. Objective Data Objective Data Vital Signs: Vital Signs Temp Pulse Resp BP Pulse Ox O2 Del Method 97.6 F L 74 19 H 164/64 H 96 Room Air 07/16/23 08:27 07/16/23 08:30 07/16/23 08:27 07/16/23 08:30 07/16/23 08:27 07/16/23 08:27 Oxygen Delivery Method Room Air Weight: 206 lb 2.115 oz Body Mass Index (BMI) 36.5 Intake & Output: Intake and Output for Last 24 Hours 07/14/23 07/15/23 07/16/23 23:59 23:59 23:59 Intake Total 690 / 690 2789.5 / 2789.5 610 / 610 Output Total 450 / 450 Balance 690 / 690 2339.5 / 2339.5 610 / 610 Lab / Micro Data 07/13/23 05:33 07/13/23 05:33 Physical Exam Const alert, oriented x3 and no apparent distress Constitutional Narrative: Making good eye contact, appropriate General Appearance: cooperative HEENT moist oral mucous membranes HEENT Narrative: No evidence thrush Resp normal respiratory effort, no use of accessory muscles and clear to auscultationbilaterally Resp Narrative: Not tachypneic and no conversational dyspnea. Effort and Inspection: able to speak in complete sentences Cardio regular rate, regular rhythm, no murmurs, no rub and no gallops Cardio Narrative: Heart sounds are somewhat distant and this is likely secondary to body habitus. No ectopy. GI normal to inspection, nondistended, normoactive bowel sounds and non-tender GI Narrative: No guarding with palpation. Obese. Skin Skin Narrative: No rashes, no skin breakdown. She has large areas of depigmentation over several areas of her body. Has never seen a lap polisher. Psych affect normal Psych Narrative: Appropriate, making good eye contact. Able to stay on topic and focus. No flight of ideas. Does not appear anxious or depressed. Conversant and relating well to staff. Assessment & Plan Assessment/Plan (1) Debility: (2) Septic joint of left knee joint: QUALIFIERS: Septic arthritis organism: staphylococcal Qualified Code(s): M00.062 - Staphylococcal arthritis, left knee (3) MSSA bacteremia: (4) Effusion, left knee: (5) Diabetes mellitus type 2 in obese: (6) Chronic renal failure, stage 3b: (7) Type II diabetes mellitus: QUALIFIERS: Diabetes mellitus complication status: with hyperglycemia Diabetes mellitus half-way insulin use: with bed bug exterminator use Qualified Code(s): E11.65 - Type 2 diabetes mellitus with hyperglycemia; Z79.4 -USP (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 of insulin (8) Obesity: QUALIFIERS: Obesity type: due to excess calories Obesity classification: adult class 2 (BMI 35 - 39.9) Serious obesity comorbidity presence: with serious comorbidity Body mass index: BMI 39.0-39.9 Qualified Code(s): E66.01 - Morbid (severe) obesity due to excess calories; Z68.39 - Body mass index [BMI] 39.0-39.9, adult (9) Osteoarthritis of left knee: QUALIFIERS: Osteoarthritis type: primary Qualified Code(s): M17.12 - Unilateral primary osteoarthritis, left knee (10) Hypertension: QUALIFIERS: Hypertension type: primary hypertension Qualified Code(s): I10 - Essential (primary) hypertension (11) HLD (hyperlipidemia): QUALIFIERS: Hyperlipidemia type: unspecified Qualified Code(s): E78.5 - Hyperlipidemia, unspecified (12) Cardiomyopathy: QUALIFIERS: Cardiomyopathy type: other Qualified Code(s): I42.8 -Other cardiomyopathies (13) Atrial fibrillation: QUALIFIERS: Atrial fibrillation type: permanent Qualified Code(s): I48.21 - Permanent atrial fibrillation (14) CVA (cerebral vascular accident): QUALIFIERS: CVA mechanism: embolism Precerebral and cerebral artery: unspecified cerebral artery Qualified Code(s): I63.40 - Cerebral infarction due to embolism of unspecified cerebral artery (15) Hypoglycemia: (16) JAMAAL (obstructive sleep apnea): PLAN: Plan 1. Continue therapy 2. Plan discharge for 07/22/2023. She will conclude her antibiotic treatment on 07/21/2023. 3. We will let Dr. Cadet and Kait MARKETING PROGRAM COORDINATOR know about the high blood sugars in the morning that resolved with discontinuing Lantus and using sliding scale insulin at bedtime. 4. Blood pressures are on the high side frequently and I think this is related to pain and agitation. We will add a as needed antihypertensive for blood pressure greater than 150/85. She can follow-up with her primary care physicianpostdischarge and hopefully her blood pressure will decrease when she is out of the hospital and at home taking care of her horses. Charges/Coding Visit Charges Inpatient E&M: 59532 Subs Hosp L2 07/16/231815 <Electronically signed by Lisbet Herrera DO> Lisbet Herrera DO Cosigner Signature (if applicable): CC: ~ Signed [facility] Work Phone: 1(767) 632-613511-03-2023 Progress note Author Lisbet Herrera [facility] July 15, 2023 2:16pm Note Date/Time July 14, 2023 1 1:51am [facility] Medical Records Department [address] [place] [address] Progress Note 07/14/23 1148 MR#: [id number] Acct: [id number] Name: CAMILLE GARDINER Rep #:[id number] : 1960 63 From: Lisbet Herrera DO PCP: Dr. Nando Esposito MD Status: ADM IN Location: [place] [address] Subjective Subjective Camille was seen on team rounds today. No family was available to participate by phone. Afebrile VSS Maintaining appropriate oxygen saturation on RA Oral intake is good She has lost about 8 lbs since admission to the hospital The BS record was reviewed. The BS's are fairly well controlled. Occasional BS>200. No hypoglycemia in the past 36 hours. She tells me that she was takingLantus at home but, she was taking only 7 units. Since we have had hypoglycemiain the AM a few times I am going to continue to hold the Lantus since the BS control looks better. Discussed with nursing - no problems that need addressed Reviewed the PT/OT/ST notes - she did not do as well on the weekly testing thisweek. SIT to stand and TUG scores both higher than last week. she attributes this to pain. Medication list reviewed. Camille tells me that the Baclofen worked very well for the pain in the Left thigh. She c/o her knee feeling warm to the touch. She denies fevers/chills, night sweats, CP, SOB, N/V/abd pain, vaginitis, painful mouth and painful swallowing, dysuria and calf pain. all lab drawn yesterday was personally reviewed. The white blood cell count isnormal at 9.4 with 67% neutrophils. The ESR is 58, down from greater than 130 at admission to the hospital. Sodium is now normal at 136 and the potassium is 4.1. BUN is 31 and the creatinine is 1.28 which is down from 1.54 on 07/06/2023. Objective Data Objective Data Vital Signs: Vital Signs Temp Pulse Resp BP Pulse Ox O2 Del Method 97.8 F 68 16 124/80 H 92 Room Air 07/14/23 07:27 07/14/23 07:51 07/14/23 07:27 07/14/23 07:51 07/14/23 07:27 07/14/23 07:27 Oxygen Delivery Method Room Air Weight: 207 lb 4.105 oz Body Mass Index (BMI) 36.7 Intake & Output: Intake and Output for Last 24 Hours 07/12/23 07/13/23 07/14/23 23:59 23:59 23:59 Intake Total 1030 / 1030 780 / 780 110 / 110 Output Total 850 / 850 350 / 350 Balance 180 / 180 430 / 430 110 / 110 Lab / Micro Data 07/13/23 05:33 07/13/23 05:33 Physical Exam Const alert, oriented x3 and no apparent distress Constitutional Narrative: Making good eye contact, appropriate General Appearance: cooperative HEENT moist oral mucous membranes HEENT Narrative: No evidence thrush Resp normal respiratory effort, no use of accessory muscles and clear to auscultationbilaterally Resp Narrative: Not tachypneic and no conversational dyspnea. Effort and Inspection: able to speak in complete sentences Cardio regular rate, regular rhythm, no murmurs, no rub and no gallops Cardio Narrative: Heart sounds are somewhat distant and this is likely secondary to body habitus. No ectopy. GI normal to inspection, nondistended, normoactive bowel sounds and non-tender GI Narrative: No guarding with palpation. Obese. Skin Skin Narrative: No rashes, no skin breakdown. She has large areas of depigmentation over several areas of her body. Has never seen a lap polisher. Psych affect normal Psych Narrative: Appropriate, making good eye contact. Able to stay on topic and focus. No flight of ideas. Does not appear anxious or depressed. Conversant and relating well to staff. Assessment & Plan Assessment/Plan (1) Debility: (2) Septic joint of left knee joint: QUALIFIERS: Septic arthritis organism: staphylococcal Qualified Code(s): M00.062 - Staphylococcal arthritis, left knee (3) MSSA bacteremia: (4) Effusion, left knee: (5) Diabetes mellitus type 2 in obese: (6) Chronic renal failure, stage 3b: (7) Type II diabetes mellitus: QUALIFIERS: Diabetes mellitus complication status: with hyperglycemia Diabetes mellitus bed bug exterminator insulin use: with half-way use Qualified Code(s): E11.65 - Type 2 diabetes mellitus with hyperglycemia; Z79.4 -USP (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 of insulin (8) Obesity: QUALIFIERS: Obesity type: due to excess calories Obesity classification: adult class 2 (BMI 35 - 39.9) Serious obesity comorbidity presence: with serious comorbidity Body mass index: BMI 39.0-39.9 Qualified Code(s): E66.01 - Morbid (severe) obesity due to excess calories; Z68.39 - Body mass index [BMI] 39.0-39.9, adult (9) Osteoarthritis of left knee: QUALIFIERS: Osteoarthritis type: primary Qualified Code(s): M17.12 - Unilateral primary osteoarthritis, left knee (10) Hypertension: QUALIFIERS: Hypertension type: primary hypertension Qualified Code(s): I10 - Essential (primary) hypertension (11) HLD (hyperlipidemia): QUALIFIERS: Hyperlipidemia type: unspecified Qualified Code(s): E78.5 - Hyperlipidemia, unspecified (12) Cardiomyopathy: QUALIFIERS: Cardiomyopathy type: other Qualified Code(s): I42.8 - Other cardiomyopathies (13) Atrial fibrillation: QUALIFIERS: Atrial fibrillation type: permanent Qualified Code(s): I48.21 - Permanent atrial fibrillation (14) CVA (cerebral vascular accident): QUALIFIERS: CVA mechanism: embolism Precerebral and cerebral artery: unspecified cerebral artery Qualified Code(s): I63.40 - Cerebral infarction due to embolism of unspecified cerebral artery (15) Hypoglycemia: (16) JAMAAL (obstructive sleep apnea): PLAN: Plan 1. Continue therapy 2. Continue the current insulin regimen as the blood sugars are well controlled with no hypoglycemia. 3. Schedule her for an overnight sleep study, split study, on the night of discharge. Discussed with the sleep lab. 4. Continue scheduled insulin 7 units with each meal and sliding scale insulin before meals and at bedtime. Continue to hold Lantus. Stop bang score is positive for snoring, age greater than 50, BMI greater than 35, history of hypertension and daytime fatigue. She has been scheduled in the past for a sleep study by her primary care doctor for daytime somnolence but unfortunately had to cancel 2 appointments. She can fall asleep reading and watching TV. She has a history of congestive heart failure and atrial fibrillation. She had an ischemic stroke in 2021 and has problems with memory. She has daytime sleepiness and has restless legs. She gets up to use the restroom at night a few times. Charges/Coding Visit Charges Inpatient E&M: 38731 Subs Hosp L2 07/15/23 1416 <Electronically signed by Lisbet Herrera DO> Lisbet Herrera DO Cosigner Signature (if applicable): CC: ~ Signed [facility] Work Phone: 1(825) 811-207910-31-2023 Progress note Author Lisbet Herrera [facility] July 12, 2023 5:50pm Note Date/Time July 12, 2023 4 :28pm [facility] Medical Records Department [address] [place] [address] Progress Note 07/12/23 1627 MR#: [id number] Acct: [id number] Name: CAMILLE GARDINER Rep #:[id number] : 1960 63 From: Lisbet Herrera DO PCP: Dr. Nando Esposito MD Status: ADM IN Location: [place] [address] Subjective Subjective Afebrile VSS-blood pressures are erratic, more often than not the systolic is greater than 130. Maintaining appropriate oxygen saturation on RA Oral intake is good The blood sugar record was reviewed. She was 142 at HS, 176 at 0219 and 210 thisAM. At5 lunch she was 207 and at 4:30 she was 78. She did not skip any meals today. She is getting a bedtime snack. She got 2 units of SSI at lunch + the scheduled Humalog. At home she is on 7 units short acting with each meal and a sliding scale. She does not take any Lantus. Discussed with nursing - no problems that need addressed Reviewed the PT/OT/ST notes Medication list reviewed. She is c/o muscle spasms in the left thigh and calf. Camille denies lightheadedness, vertigo, CP, SOB at rest, SOB with exertion, cough,nausea, vomiting, abd pain, diarrhea, constipation, dysuria and ankle swelling. Objective Data Objective Data Vital Signs: Vital Signs Temp Pulse Resp BP Pulse Ox O2 Del Method 97.2 F L 69 16 171/63 H 97 Room Air 07/12/23 07:51 07/12/23 08:14 07/12/23 07:51 07/12/23 07:51 07/12/23 07:51 07/12/23 07:51 Oxygen Delivery Method Room Air Weight: 207 lb 4.105 oz Body Mass Index (BMI) 36.7 Intake & Output: Intake and Output for Last 24 Hours 07/10/23 07/11/23 07/12/23 23:59 23:59 23:59 Intake Total 330 / 330 570 / 570 310 / 310 Output Total 350 / 350 400 / 400 Balance 330 / 330 220 / 220 -90 / -90 Lab / Micro Data 07/06/23 05:13 07/06/23 05:13 Labs: Laboratory Results - last 24 hr 07/12/23 11:37: POC Glucose 207 H Physical Exam Const alert, oriented x3 and no apparent distress Constitutional Narrative: Making good eye contact, appropriate General Appearance: cooperative HEENT moist oral mucous membranes HEENT Narrative: No evidence thrush Resp normal respiratory effort, no use of accessory muscles and clear to auscultationbilaterally Resp Narrative: Not tachypneic and no conversational dyspnea. Effort and Inspection: able to speak in complete sentences Cardio regular rate, regular rhythm, no murmurs, no rub and no gallops Cardio Narrative: Heart sounds are somewhat distant and this is likely secondary to body habitus. No ectopy. GI normal to inspection, nondistended, normoactive bowel sounds and non-tender GI Narrative: No guarding with palpation. Obese. Skin Skin Narrative: No rashes, no skin breakdown. She has large areas of depigmentation over several areas of her body. Has never seen a lap polisher. Psych affect normal Psych Narrative: Appropriate, making good eye contact. Able to stay on topic and focus. No flight of ideas. Does not appear anxious or depressed. Conversant and relating well to staff. Assessment & Plan Assessment/Plan (1) Debility: (2) Septic joint of left knee joint: QUALIFIERS: Septic arthritis organism: staphylococcal Qualified Code(s): M00.062 - Staphylococcal arthritis, left knee (3) MSSA bacteremia: (4) Effusion, left knee: (5) Diabetes mellitus type 2 in obese: (6) Chronic renal failure, stage 3b: (7) Type II diabetes mellitus: QUALIFIERS: Diabetes mellitus complication status: with hyperglycemia Diabetes mellitus half-way insulin use: with bed bug exterminator use Qualified Code(s): E11.65 - Type 2 diabetes mellitus with hyperglycemia; Z79.4 -USP (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 of insulin (8) Obesity: QUALIFIERS: Obesity type: due to excess calories Obesity classification: adult class 2 (BMI 35 - 39.9) Serious obesity comorbidity presence: with serious comorbidity Body mass index: BMI 39.0-39.9 Qualified Code(s): E66.01 - Morbid (severe) obesity due to excess calories; Z68.39 - Body mass index [BMI] 39.0-39.9, adult (9) Osteoarthritis of left knee: QUALIFIERS: Osteoarthritis type: primary Qualified Code(s): M17.12 - Unilateral primary osteoarthritis, left knee (10) Hypertension: QUALIFIERS: Hypertension type: primary hypertension Qualified Code(s): I10 - Essential (primary) hypertension (11) HLD (hyperlipidemia): QUALIFIERS: Hyperlipidemia type: unspecified Qualified Code(s): E78.5 - Hyperlipidemia, unspecified (12) Cardiomyopathy: QUALIFIERS: Cardiomyopathy type: other Qualified Code(s): I42.8 - Other cardiomyopathies (13) Atrial fibrillation: QUALIFIERS: Atrial fibrillation type: permanent Qualified Code(s): I48.21 - Permanent atrial fibrillation (14) CVA (cerebral vascular accident): QUALIFIERS: CVA mechanism: embolism Precerebral and cerebral artery: unspecified cerebral artery Qualified Code(s): I63.40 - Cerebral infarction due to embolism of unspecified cerebral artery (15) Hypoglycemia: PLAN: Plan 1. Continue therapy 2. CBC and BMP are ordered for the a.m. 3. Start baclofen 5 mg p.o. 3 times daily as needed muscle spasms 4. Discontinue Lantus 5. Decrease the mealtime Lispro to 7 units (what she takes at home) and continue SSI with meals. Charges/Coding Visit Charges Inpatient E&M: 98041 Subs Hosp L2 07/12/23 1750 <Electronically signed by Lisbet Herrera DO> Lisbet Rosenthal Signature (if applicable): CC: ~ Signed [facility] Work Phone: [phone]) 221-868610-30-2023 Progress note Author Lisbet Herrera [facility] July 11, 2023 3:34pm Note Date/Time July 11, 2023 1 2:19pm [facility] Medical Records Department [address] [place] [address] Progress Note 07/11/23 1217 MR#: [id number] Acct: [id number] Name: CAMILLE GARDINER Rep #:[id number] : 1960 63 From: Lisbet Herrera PCP: Dr. Nando Esposito MD Status: ADM IN Location: [place] [address] Subjective Subjective Afebrile VSS Maintaining appropriate oxygen saturation on RA Oral intake is good The blood sugar record was reviewed. BS on Tuesday was low and the Lantus was decreased to 10 units. The last few FBS's have been in the 200's. I suspect she is getting low while sleeping and this is why the AM sugars are high. Discussed with nursing - no problems that need addressed Reviewed the PT/OT notes Medication list reviewed. Camille denies lightheadedness, vertigo, CP, SOB at rest, SOB with exertion, cough,nausea, vomiting, abd pain, diarrhea, constipation, dysuria, calf pain and ankleswelling. She also denies painful mouth and painful swallowing. Denies VaginalDC or itching. She tells me that the pain is getting less and less every day. She is happy with the pain regimen. She only takes 1-2 Tramadol daily. Objective Data Objective Data Vital Signs: Vital Signs Temp Pulse Resp BP Pulse Ox O2 Del Method 98.2 F 69 16 125/49 H 96 Room Air 07/11/23 08:01 07/11/23 11:19 07/11/23 08:01 07/11/23 08:01 07/11/23 08:01 07/11/23 08:01 Oxygen Delivery Method Room Air Weight: 207 lb 4.105 oz Body Mass Index (BMI) 36.7 Intake & Output: Intake and Output for Last 24 Hours 07/09/23 07/10/23 07/11/23 23:59 23:59 23:59 Intake Total 910 / 910 330 / 330 110 / 110 Output Total 350 / 350 Balance 560 / 560 330 / 330 110 / 110 Lab / Micro Data 07/06/23 05:13 07/06/23 05:13 Physical Exam Const alert, oriented x3 and no apparent distress Constitutional Narrative: Making good eye contact, appropriate General Appearance: cooperative HEENT moist oral mucous membranes HEENT Narrative: No evidence thrush Resp normal respiratory effort, no use of accessory muscles and clear to auscultationbilaterally Resp Narrative: Not tachypneic and no conversational dyspnea. Effort and Inspection: able to speak in complete sentences Cardio regular rate, regular rhythm, no murmurs, no rub and no gallops Cardio Narrative: Heart sounds are somewhat distant and this is likely secondary to body habitus. No ectopy. GI normal to inspection, nondistended, normoactive bowel sounds and non-tender GI Narrative: No guarding with palpation. Obese. Skin Skin Narrative: No rashes, no skin breakdown. She has large areas of depigmentation over several areas of her body. Has never seen a lap polisher. Psych affect normal Psych Narrative: Appropriate, making good eye contact. Able to stay on topic and focus. No flight of ideas. Does not appear anxious or depressed. Conversant and relating well to staff. Assessment & Plan Assessment/Plan (1) Debility: (2) Septic joint of left knee joint: QUALIFIERS: Septic arthritis organism: staphylococcal Qualified Code(s): M00.062 - Staphylococcal arthritis, left knee (3) MSSA bacteremia: (4) Effusion, left knee: (5) Diabetes mellitus type 2 in obese: (6) Chronic renal failure, stage 3b: (7) Type II diabetes mellitus: QUALIFIERS: Diabetes mellitus complication status: with hyperglycemia Diabetes mellitus half-way insulin use: with half-way use Qualified Code(s): E11.65 - Type 2 diabetes mellitus with hyperglycemia; Z79.4 -USP (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 of insulin (8) Obesity: QUALIFIERS: Obesity type: due to excess calories Obesity classification: adult class 2 (BMI 35 - 39.9) Serious obesity comorbidity presence: with serious comorbidity Body mass index: BMI 39.0-39.9 Qualified Code(s): E66.01 - Morbid (severe) obesity due to excess calories; Z68.39 - Body mass index [BMI] 39.0-39.9, adult (9) Osteoarthritis of left knee: QUALIFIERS: Osteoarthritis type: primary Qualified Code(s): M17.12 - Unilateral primary osteoarthritis, left knee (10) Hypertension: QUALIFIERS: Hypertension type: primary hypertension Qualified Code(s): I10 - Essential (primary) hypertension (11) HLD (hyperlipidemia): QUALIFIERS: Hyperlipidemia type: unspecified Qualified Code(s): E78.5 - Hyperlipidemia, unspecified (12) Cardiomyopathy: QUALIFIERS: Cardiomyopathy type: other Qualified Code(s): I42.8 - Other cardiomyopathies PLAN: More likely than not due to AF with RVR (13) Atrial fibrillation: QUALIFIERS: Atrial fibrillation type: permanent Qualified Code(s): I48.21 - Permanent atrial fibrillation (14) CVA (cerebral vascular accident): QUALIFIERS: CVA mechanism: embolism Precerebral and cerebral artery: unspecified cerebral artery Qualified Code(s): I63.40 - Cerebral infarction due to embolism of unspecified cerebral artery (15) Hypoglycemia: PLAN: Plan 1. Continue therapy 2. Add a 3 AM blood sugar to the current Accu-Chek regimen 3. Asked nursing to keep a record of the blood sugars from the Paulette at the bedside so all the BS's are in the same place 4. Add a SSI regimen with meals 5. Recheck Lab on Tuesday/weekly while in rehab. Charges/Coding Visit Charges Inpatient E&M: 47846 Subs Hosp L2 07/11/23 1534 <Electronically signed by Lisbet Herrera DO> Lisbet Herrera DO Cosigner Signature (if applicable): CC: ~ Signed [facility] Work Phone: 1([phone]) 538-462710-30-2023 History and physical note Author [facility] July 11, 2023 3:23pm Note Date/Time July 07, 2023 1 0:29am [facility] Medical Records Department [address] [place] [id number] Post Admission Physician Paige 07/07/23 1021 MR#: [id number] Acct: [id number] Name: CAMILLE GARDINER Rep #:[id number] : 1960 63 From: Lisbet Herrera DO PCP: Dr. Nando Esposito MD Status: ADM IN Location: [place] [address] Admission Information Primary Diagnosis:: Debility to to septic L knee joint. Status Changes from Prescreening?: No changes Identified Actual Problem List:: Infection, Skin Intergrity, Pain, ALteration in Cmfrt, Depression, Bowel, Constipation, Alteration in Sleep, Mobility Impaired, Self Care Deficit, Diabetes, Hyperglycemia, BP, Hypertension and Alteration-Leisure Activ. Potential Problem List:: DVT, Bleeding, Infection, UTI, Aspiration, Falls, Skin Integrity and Depression Risk of Complications DVT: RICHI Iniguez and - (Apixaban) Bleeding: Monitor Lab Values, Nursing to Teach Precautions for anti-coagulation therapy., Wound, if applicable, to be assessed every shift. and Stroke patients assessed for lethargy or change in status. Infection: Clinical Staff to Monitor for S/S of infection: and S/S of infection include fever, redness, warmth, etc. Urinary Tract Infection: Monitor for frequency, burning, discomfort, or incontinence. and Nursing will obtain urine sample for urinalysis and C&S when ordered. Aspiration: Clinical staff will monitor for coughing, drooling, congestion., Speech will evaluate swallowing and dsyphasia. and Nursing will monitor patient swallowing during meals. Falls: Patient will be evaluated for Fall Precautions and Patient will be placedon Fall Precautions as indicated per protocol. Skin Breakdown: Nursing will assess skin daily using assessment tool. and Nursing will place on Skin Breakdown Precautions as indicated. Pain: Clinical staff will assess patient's pain level per protocol., Medicationswill be given, if needed, and the pain level reassessed. and Other methods: Massage, distraction, decrease stimulus, etc. used PRN. Plan of Care Patient requires physician specializing in physical medicine and rehab oversightto provide close medical supervision of rehab issues including: Pain Management,Sleep Problems, Bowel and Bladder, Medical and co-morbidity Management, DVT prophylaxis, Rehabilitation Leadership and Coordination of treatment team Patient needs Physical Therapy: For a minimum of 1 hour and At least 5 out of 7 days Patient needs Physical Therapy to improve:: Mobility, Strengthening, Transfers, Stretching, ROM, Endurance, Stairs, Gait and Balance Patient needs Occupational Therapy: For a minimum of 1 hour and At least 5 out of 7 days Patient needs Occupational Therapy to improve ADL's incl.: Eating, Grooming, Bathing, Dressing, Toileting, Toilet transfers, Community Reintegration, Higher functioning activities, Household tasks, Adaptive Equipment, Splinting and Otheractivities as determined Patient requires speech therapy: For a minimum of 1 hour and At least 5 out of 7days Patient requires speech therapy for: Swallowing, Cognition, Language Skills and Compensatory Strategies Patient requires 24/7 Rehabilitation Nursing for: Pain Issues, Identifying and preventing risk factors, Monitoring and reporting current medical conditions, Assisting with ambulation, transfer, and all ADL's, Teaching patients about disease process and medications, Family teaching, Providing safe environment, Bowel and Bladder Issues, Skin integrity and Medication Management Patient needs Slip Cover Seamstress/ Case Management for: Discharge Planning, Arranging Home Equipment or Services and Family Interventions Patient needs Dietary and Nutrition Services for: Adequate Nutrition, Nutritional Supplements and Nutritional Education Goals Patient will remain: free from falls Patient will perform bed mobility at: MOD I level of assist. Patient will complete transfers from bed to chair at: MOD I level of assist. Patient will ambulate: - (250 feet with least restrictive device at mod I on various surfaces to allow patient to return to home/community) Patient will complete upper body dressing at: MOD I level of assist. Patient will complete lower body dressing at: MOD I level of assist. (with AE asneeded) Patient will complete toileting at: MOD I level of assist. Patient will perform bathing at: MOD I level of assist. Patient will complete grooming at: MOD I level of assist. Patient will complete home management skills at: MOD I level of assist. Patient will achieve: - (2 steps with 2 handrails at contact-guard assist to allow access to home entrance) Patient will have pain level of: of 3 or less Patient's skin will: remain intact Patient will receive: adequate nutrition. Discharge Planning Pt Prognosis for Sig. Practical Improv. w/in Reasonable Time: Good Estimated Length of stay (days): 28 Anticipated D/C Destination: Home with Outpt Therapy Was Preadmission Assessment Accurate?: Yes 07/11/23 1523 <Electronically signed by Lisbet Herrera DO> Cosigner Signature (if applicable): CC: ~ Signed [facility] Work Phone: [phone]) 954-529610-30-2023 History and physical note Author Lisbet [facility] July 11, 2023 3:20pm Note Date/Time July 07, 2023 9 :05am [facility] Medical Records Department [address] [place] [address] History & Physical Exam 07/07/23 0855 MR#: [id number] Acct: [id number] Name: JENNIFER GARDINERFunmi Salmeron Rep #:[id number] : 1960 63 From: Lisbet Herrera DO PCP: Dr. Nando Esposito MD Status: ADM IN Location: [id number] HPI - General General Date of Admission: 07/05/23 Date of Service: 07/07/23 Chief Complaint: L knee septic arthritis and bacteremia. HPI Narrative CAMILLE GARDINER, is a 63 YO F with a PMH of DM II, morbid obesity, hyperlipidemia, hypertension, migraine cephalgia, osteoarthritis, anxiety/depression, atrial fibrillation, cardiomyopathy, cerebrovascular disease, chronic anticoagulation with apixaban, stage III chronic renal failure and ischemic CVA in 2021 who presented to the ED at [facility] on 06/20/23 with a complaint of increasing L knee pain. She was seen by orthopedics on 06/16/23 forL knee pain following a twisting injury and received a Kenalog injection in her L knee. She returned to Dr. Moreno's office on 06/21/23 complaining her Left knee was more painful and she could hardly ambulate secondary to the pain. Dr. Moreno felt she had a acute flare reaction and prescribed a Medrol Dosepak. The pain became unbearable and she presented to the ED just after MN on the . Labs showed an increased white blood cell count of 19.1 with a left shift. The ESR was greater than 130 and the CRP was 126. Sodium was low at 130and the creatinine was mildly elevated at 1.9 with her baseline ranging from 1.4-1.75. She was admitted to the hospitalist service and seen by Dr. Moreno in the AM . An arthrocentesis was done and she was started on Cefepime and Vancomycin however, the antibiotic administration was held until after I&D and cultures were done that day. The synovial fluid had a white blood cell count of 77,820 with 310 RBCs. There were 98% synovial neutrophils. Eliquis was placed on hold at admission. She was taken to the OR on 06/21/23 for I&D/arthroscopy/irrigation. Synovial fluid culture was + for MSSA and Streptococcus Mitis. BC was + for MSSA. She was seen in consult by Dr. Cheung from [place] on 06/22/23 and Vancomycin was continued until the sensitivities were available and then she was transitioned to Cefazolin. Becauseof the bacteremia a transthoracic ECHO was obtained and it showed a normal EF of55% with no vegetations. Camille was transferred to the acute inpt rehab unit at [facility] on 07/05/23 for 3 hours of therapy daily to restore function/independence ator near her level prior to the knee injury. Prior to transfer a PICC line was placed for 6 weeks of IV Cefazolin. Afebrile since arrival on rehab. VSS-blood pressure since arrival on rehab have ranged from 132/54 to 165/82. Heart rate is within normal limits. Maintaining appropriate oxygen saturation on RA-97 to 98% on room air Oral intake is good PVR's 0 X 3. The blood sugar record was reviewed. Blood sugar ranged from 143-21 since she arrived on rehab. Hemoglobin A1c on 06/21/2023 was 7.4. Discussed with nursing - no problems that need addressed Reviewed the PT/OT/ST notes Medication list reviewed. Not currently taking anything for pain except scheduled Tylenol. All lab from yesterday was personally reviewed. Hemoglobin is stable at 11.6. White blood cell count is 11.6 which is up from 9.2 on 07/05/2023. Platelets are normal. Sodium is 134 and the potassium is 4.3. The BUN is 34 with a creatinine of 1.54 which is within her baseline. Fasting glucose yesterday was 207. Mag and Phos are normal. Camille is requesting that we use her Paulette for BS checks and not finger sticks. She is also requesting to have lab work drawn from the PICC. She asked about something stronger for breakthrough pain. She refused to take any more narcotics because she got severely constipated. We discussed trying Tramadol and we are going to add a second stool softener to the MiraLax. [facility] Medical History (Updated 07/11/23 @ 15:[address] Lisbet Herrera DO) Atrial fibrillation, new onset Atypical chest pain Cardiomyopathy Chest pain CHF (congestive heart failure) Chronic renal failure, stage 3b CVA (cerebral vascular accident) Diabetes mellitus type 2 in obese Effusion, left knee Finger lesion HLD (hyperlipidemia) Hypertension Hypertensive urgency Menopausal and female climacteric states Migraine headache Obesity Osteoarthritis of left knee Stage 3b chronic kidney disease (CKD) Type II diabetes mellitus Home Medications duloxetine 60 mg capsule,delayed release 120 mg PO Q mental health 11/08/21 [History Last Taken Unknown] ferrous sulfate 325 mg (65 mg iron) tablet (FeroSul) 325 mg PO DAILY@1200 Supplement #0 tabs 09/17/22 [Rx Last Taken Unknown] apixaban 5 mg tablet (Eliquis) 5 mg PO BID Blood thinner #180 tabs 11/04/22 [Rx Last Taken Unknown] atorvastatin 40 mg tablet 40 mg PO QHS cholesterol #90 tabs 11/04/22 [Rx Last Taken Unknown] dapagliflozin propanediol 10 mg tablet (Farxiga) 10 mg PO DAILY Diabetes #90 tabs 02/09/23 [Rx Last Taken Unknown] amiodarone 200 mg tablet 200 mg PO DAILY BP 05/09/23 [History Last Taken Unknown] furosemide 40 mg tablet 40 mg PO DAILY Fluid retention 05/09/23 [History Last Taken Unknown] magnesium 250 mg tablet 500 mg PO DAILY supplement 05/09/23 [History Last Taken Unknown] mecobalamin (vitamin B12) 5,000 mcg disintegrating tablet 5,000 mcg PO DAILY supplement 05/09/23 [History Last Taken Unknown] trazodone 100 mg tablet 100 mg PO DAILY insomnia 05/09/23 [History Last Taken Unknown] dulaglutide 0.75 mg/0.5 mL subcutaneous pen injector (TrulicDouble R Group) 0.75 mg (0.5 mL) subcut QWEEK Diabetes #2 mL 05/18/23 [Rx Last Taken Unknown] metoprolol succinate 50 mg tablet,extended release 24 hr 50 mg PO DAILY BP #90 tabs 06/07/23 [Rx Last Taken Unknown] nystatin 100,000 unit/gram topical powder (Nyamyc) 1 applic topical BID PRN redness 06/21/23 [History Last Taken Unknown] cefazolin 2 gram intravenous solution 2 g IV Q8H Antibiotic 24 days 06/27/23 [Rx Last Taken Unknown] acetaminophen 500 mg tablet 1,000 mg (2 x 500 mg) PO Q8 Pain #0 tabs 07/05/23 [Rx Last Taken Unknown] insulin glargine 100 unit/mL (3 mL) subcutaneous pen (Lantus Solostar U-100 Insulin) 10 unit subcut QHS diabetes 07/05/23 [History Last Taken Unknown] insulin lispro 100 unit/mL subcutaneous pen (Humalog KwikPen (U-100) Insulin) 12unit (0.12 mL) subcut TID diabetes #54 mL 07/05/23 [Rx Last Taken Unknown] losartan 25 mg tablet 25 mg PO DAILY BP #0 tabs 07/05/23 [Rx Last Taken Unknown] polyethylene glycol 3350 17 gram oral powder packet 17 g PO DAILY Stool softner #0 ea 07/05/23 [Rx Last Taken Unknown] Allergy/AdvReac Type Severity Reaction Status Date / Time ampicillin Allergy Intermediate Hives Verified 06/21/23 04:52 levofloxacin [From Levaquin] Allergy Other Verified 06/20/23 22:57 Penicillins Allergy Hives Verified 06/20/23 22:57 lisinopril AdvReac Unknown Cough Verified 06/25/23 17:57 Family History Mother Diabetes Psoriatic arthritis Rheumatoid arthritis Father COPD (chronic obstructive pulmonary disease) With concurrent tobacco use history. Myocardial infarction Heart disease Surgical History History of foot surgery Social History adopted: No household members: spouse housing: house number of children: 0 current occupational status: employed current occupation: works at [employer] pets and animals: Yes (kittens, dogs, horses) Smoking Status: Never smoker alcohol intake: never substance use type: does not use caffeine: Yes (occasionally) Type: carbonated beverages and coffee ROS Constitutional Constitutional: Reports fatigue and weakness; Denies anorexia, change in weight,chills, fever(s) or night sweats Eyes Eyes: Denies blurry vision, change in vision, eye pain or loss of vision ENT HEENT: Denies abnormal hearing, dysphagia, headache(s), hearing loss, nasal congestion or sore throat Cardiovascular Cardiovascular: Denies chest pain, dyspnea on exertion, edema, lightheadedness, orthopnea, palpitations, paroxysmal nocturnal dyspnea or syncope Respiratory/Chest Respiratory/Chest: Denies cough, dyspnea, shortness of breath at rest, shortnessof breath with exertion or wheezing Gastrointestinal Gastrointestinal: Reports constipation; Denies abdominal pain, diarrhea, dyspepsia, hematemesis, hematochezia, nausea or vomiting Genitourinary Genitourinary: Denies dysuria, hematuria, nocturia, urinary frequency, urinary hesitancy, urinary incontinence or urinary urgency Musculoskeletal Musculoskeletal: Reports back pain and joint pain; Denies joint swelling or neckpain Neurologic Neurologic: Denies confusion, disequilibrium, dizziness, focal weakness, headache(s), paresthesias, seizures or tremor(s) Psychiatric Psychiatric: Denies anxiety, depression, homicidal ideation or suicidal ideation Endocrine Endocrinology: Denies change in body appearance, polydipsia or polyuria Hematologic/Lymphatic Hematologic/Lymphatic: Denies easy bleeding, easy bruising or lymphadenopathy Allergic/Immunologic Allergic/Immunologic: Denies rhinitis, eczemia or asthma Vital Signs Vital Signs Vital Signs: 07/06/23 20:30 07/06/23 22:00 Temperature 97.8 F Temperature Source Temporal Pulse Rate 66 69 Respiratory Rate 17 17 Respiratory Effort Normal Non-Labored Respiratory Depth Normal Respiratory Pattern Normal Blood Pressure 165/82 H Blood Pressure Mean 109 Blood Pressure Source Monitor Blood Pressure Position Semi-Fowlers Blood Pressure Location Right Arm Pulse Ox 98 98 Oxygen Delivery Method Room Air Room Air Weight Weight: 207 lb 7 oz Body Mass Index (BMI) 36.7 Physical Exam Const alert, oriented x3 and no apparent distress Constitutional Narrative: Making good eye contact, appropriate General Appearance: cooperative and comfortable HEENT moist oral mucous membranes HEENT Narrative: No evidence of thrush. Head and Scalp: normocephalic and atraumatic Face and Sinus: face symmetric; Negative for sinus tenderness Nose: external nose normal External Ear: external ears normal Eyes PERRL, EOMs intact bilaterally, conjunctivae normal, no scleral icterus and normal visual rankin by confrontation General Eye: normal appearance of both eyes Neck no lymphadenopathy, supple, no JVD and no carotid bruits Chest Chest: symmetrical chest wall rise Resp normal respiratory effort, no use of accessory muscles and clear to auscultationbilaterally Resp Narrative: Not tachypneic and no conversational dyspnea. Effort and Inspection: able to speak in complete sentences Cardio regular rate, regular rhythm, S1 normal heart sound, S2 normal heart sound, no murmurs, no rub and no gallops Cardio Narrative: Heart sounds are somewhat distant and this is likely secondary to body habitus. No ectopy. GI normal to inspection, nondistended, normoactive bowel sounds and non-tender GI Narrative: No guarding with palpation. Obese. Extremity normal capillary refill and no clubbing, cyanosis or edema Extremity Narrative: Negative Tone's and Tonja's signs Peripheral Pulses: Yes pulses 2+ throughout Skin Skin Narrative: No rashes, no skin breakdown. She has large areas of depigmentation over several areas of her body. Has never seen a lap polisher. Neuro oriented x3, CN's II-XII intact bilaterally and no focal motor deficits Neuro Narrative: She has defects in attention and cognition. She is not as sharp as she was priorto the stroke. Motor Exam: strength 5/5 throughout Psych affect normal Psych Narrative: Appropriate, making good eye contact. Able to stay on topic and focus. No flight of ideas. Does not appear anxious or depressed. Conversant and relating well to staff. Appearance: grossly normal Attitude: calm Activity / Motor Behavior: appropriate eye contact Speech: normal speech Mood & Affect: euthymic mood Thought Process: normal thought process Attention / Concentration: attention grossly intact Insight: insight good Results Lab / Micro Data 07/06/23 05:13 07/06/23 05:13 Labs: Laboratory Results - last 24 hr 07/06/23 05:13: WBC 11.6 H, RBC 3.87 L, Hgb 11.6 L, Hct 38.3, MCV 99.0, MCH 30.0, MCHC 30.3 L, RDW Std Deviation 44.7 H, RDW Coeff of Patricia 12.5, Plt Count 439, MPV 9.6 07/06/23 11:37: POC Glucose 143 H 07/06/23 17:06: POC Glucose 144 H 07/06/23 22:03: POC Glucose 219 H 07/07/23 06:51: POC Glucose 186 H Assessment & Plan Assessment/Plan (1) Debility: (2) Septic joint of left knee joint: QUALIFIERS: Septic arthritis organism: staphylococcal Qualified Code(s): M00.062 - Staphylococcal arthritis, left knee (3) MSSA bacteremia: (4) Effusion, left knee: (5) Diabetes mellitus type 2 in obese: (6) Chronic renal failure, stage 3b: (7) Type II diabetes mellitus: QUALIFIERS: Diabetes mellitus complication status: with hyperglycemia Diabetes mellitus half-way insulin use: with bed bug exterminator use Qualified Code(s): E11.65 - Type 2 diabetes mellitus with hyperglycemia; 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 treater (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 of 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 (8) Obesity: QUALIFIERS: Obesity type: due to excess calories Obesity classification: adult class 2 (BMI 35 - 39.9) Serious obesity comorbidity presence: with serious comorbidity Body mass index: BMI 39.0-39.9 Qualified Code(s): E66.01 - Morbid (severe) obesity due to excess calories; Z68.39 - Body mass index [BMI] 39.0-39.9, adult (9) Osteoarthritis of left knee: QUALIFIERS: Osteoarthritis type: primary Qualified Code(s): M17.12 - Unilateral primary osteoarthritis, left knee (10) Hypertension: QUALIFIERS: Hypertension type: primary hypertension Qualified Code(s): I10 - Essential (primary) hypertension (11) HLD (hyperlipidemia): QUALIFIERS: Hyperlipidemia type: unspecified Qualified Code(s): E78.5 - Hyperlipidemia, unspecified (12) Cardiomyopathy: QUALIFIERS: Cardiomyopathy type: other Qualified Code(s): I42.8 - Other cardiomyopathies PLAN: More likely than not due to AF with RVR (13) Atrial fibrillation: QUALIFIERS: Atrial fibrillation type: permanent Qualified Code(s): I48.21 - Permanent atrial fibrillation (14) CVA (cerebral vascular accident): QUALIFIERS: CVA mechanism: embolism Precerebral and cerebral artery: unspecified cerebral artery Qualified Code(s): I63.40 - Cerebral infarction due to embolism of unspecified cerebral artery PLAN: Plan PLAN PT for gait stability OT for ADL's ST for evaluation Analgesics as needed Bowel protocol Fall precautions Assess for Anxiety/Depression GI prophylaxis - not necessary at this time. SHe denies epigastric pain and also denies nausea and reflux DVT prophylaxis - She is on Apixaban Follow up with PCP, Dr. Cheung and Dr. Moreno following DC from [facility] AM lab including CMP, CBC, Mag and Phos Tramadol and scheduled Tylenol for pain. Accucheks AC and HS Charges/Coding Visit Charges Inpatient E&M: 58553 Init Hosp L2 07/11/23 1520 <Electronically signed by Lisbet Herrera DO> Cosigner Signature (if applicable): CC: Dr. Nando Esposito MD; Dr. Lisbet Herrera DO; Dr. Anatoliy Moreno MD; Dr. Dread Cadet MD~ Signed [facility] Work Phone: 1(811) 229-433510-25-2023 Progress note Author Comfort Cheung [facility] July 06, 2023 7:09pm Note Date/Time July 06, 2023 7 :09pm [facility] Medical Records Department [address] [place] [address] Progress Note - Infect Disease 07/06/231907 MR#: [id number] Acct: [id number] Name: CAMILLE GARDINER Rep #:[id number] : 1960 63 From: Comfort yip MD PCP: Dr. Nando Esposito MD Status: ADM IN Location: [place] [address] Physical Exam Narrative Feeling better, leg improving. No fever, no n/v/d. Const alert and no apparent distress General Appearance: cooperative Resp normal air movement and clear to auscultation bilaterally Cardio regular rate and regular rhythm GI soft to palpation, non-tender and non-distended Skin no rashes or lesions noted ID ID: Route of nutrition/ use of supplements: [] Nutritional Intake: [] IV Site: [] Castaneda Catheter: [] Assessment & Plan Assessment/Plan (1) MSSA bacteremia: PLAN: MSSA bacteremia with L knee septic arthritis. Aspiration and then OR 06/21/[address] Moreno. From OR sample, no crystals seen, wbc 219k, 92% neutrophils, cx showing gram pos. Cx with MSSA, now bcx also with mssa per pcr. Cont cefazolin. TTE showed no veg and repeat bcx cleared 06/23/23. Will order picc, 4 weeks iv cefazolin, stop date 07/21/23 with weekly labs. Improving. Will follow (2) Septic joint of left knee joint: 07/06/231908 <Electronically signed by Comfort Cheung MD> Cosigner Signature (if applicable): CC: ~ Signed [facility] Work Phone: 1(473) 814-742510-24-2023 Consult [facility] 05, [facility]23 1:46pm Note Date/Time July 05, 2023 1 :46pm [facility] Medical Records Department [address] [place] [address] Counseling Note - Pharmacy 07/05/23 1346 MR#: [id number] Acct: [id number] Name: CAMILLE GARDINER Rep #:[id number] : 1960 63 From: Elbert Walters PCP: Dr. Nando Esposito MD Status: ADM IN Y Location: [place] [address] Pharmacy [facility] has performed discharge medication reconciliation and counseling for this patient. The patient's discharge medication list was reviewed for discrepancies and discrepancies were resolved. The patient was counseled on the following discharge medications and changes in medications for homegoing were reviewed. The Reason for Use, instructions for use, and potential side effects were reviewed for all new medications. The patient's questions regarding all of their medications were answered. 1. Cefazolin 2 grams Q8H 2. Losartan 25 mg daily 3. Acetaminophen 1000 mg PO Q8H 4. Polyethylene glycol 17 grams PO daily The patient was able to verbally demonstrate an understanding of their dischargemedications. Medications at Discharge Home Medications duloxetine 60 mg capsule,delayed release 120 mg PO QHS mental health 11/08/21 ferrous sulfate 325 mg (65 mg iron) tablet (FeroSul) 325 mg PO DAILY@1200 #0 tabs 09/17/22 apixaban 5 mg tablet (Eliquis) 5 mg PO BID #180 tabs 11/04/22 atorvastatin 40 mg tablet 40 mg PO QHS cholesterol #90 tabs 11/04/22 dapagliflozin propanediol 10 mg tablet (Farxiga) 10 mg PO DAILY #90 tabs 02/09/23 amiodarone 200 mg tablet 200 mg PO DAILY 05/09/23 furosemide 40 mg tablet 40 mg PO DAILY 05/09/23 insulin lispro 100 unit/mL subcutaneous pen (Humalog KwikPen (U-100) Insulin) 20unit (0.2 mL) subcut TID diabetes #54 mL 05/09/23 magnesium 250 mg tablet 500 mg PO DAILY supplement 05/09/23 mecobalamin (vitamin B12) 5,000 mcg disintegrating tablet 5,000 mcg PO DAILY supplement 05/09/23 trazodone 100 mg tablet 100 mg PO DAILY insomnia 05/09/23 dulaglutide 0.75 mg/0.5 mL subcutaneous pen injector (Trulicity) 0.75 mg (0.5 mL) subcut QWEEK #2 mL 05/18/23 metoprolol succinate 50 mg tablet,extended release 24 hr 50 mg PO DAILY #90 tabs06/07/23 nystatin 100,000 unit/gram topical powder (Nyamyc) 1 applic topical BID PRN redness 06/21/23 cefazolin 2 gram intravenous solution 2 g IV Q8H 24 days 06/27/23 acetaminophen 500 mg tablet 1,000 mg (2 x 500 mg) PO Q8 #0 tabs 07/05/23 insulin glargine 100 unit/mL (3 mL) subcutaneous pen (Lantus Solostar U-100 Insulin) 12 unit (0.12 mL) subcut QHS diabetes #15 mL 07/05/23 losartan 25 mg tablet 25 mg PO DAILY #0 tabs 07/05/23 polyethylene glycol 3350 17 gram oral powder packet 17 g PO DAILY #0 ea 07/05/23 07/05/23 1346 <Electronically signed by Elbert yip> Date _ Elbert Walters Cosigntanya Signature (if applicable): Date CC: ~ Signed [facility] Work Phone: [phone] 600-506810-24-2023 Discharge summary Author Lashae Bearden [facility] July 05, 2023 4:03pm Note Date/Time July 05, 2023 1 :23pm [facility] Medical Records Department [address] [place] [id number] Discharge Summary 07/05/23 1321 MR#: [id number] Acct: [id number] Name: CAMILLE GARDINER Rep #:[id number] : 1960 63 From: Lashae Bearden MD PCP: Dr. Nando Esposito MD Status: ADM IN Location: [place] [address] Providers Date of Admission: 06/21/23 Date of Discharge: 07/05/23 Primary Care Physician: Dr. Nando Esposito MD Consultations 06/21/23 07:13 Consult: Orthopedics Routine Consulting Provider: nAatoliy Moreno Reason for Consult: L Knee Pain EMERGENT Consult: No Notified: Yes Date Notified: 06/21/23 Time Notified: 07:13 Method of Notification: ED Physician Initiated 06/21/23 11:47 Consult: Infectious Disease Routine Consulting Provider: Comfort Cheung Reason for Consult: Septic L Knee EMERGENT Consult: No Notified: Yes Date Notified: 06/21/23 Time Notified: 11:47 Method of Notification: Text Reason For Visit: SEPTIC ARTHRITIS Diagnosis Discharge Diagnosis (1) MSSA bacteremia: Status: Acute Code(s): R78.81 - Bacteremia; B95.61 - Methicillin susceptible Staphylococcus aureus infection as the cause of diseases classified elsewhere (2) Septic joint of left knee joint: Status: Acute Code(s): M00.9 - Pyogenic arthritis, unspecified Plan #Septic arthritis of left knee due to MSSA #MSSA bacteremia- resolved #Constipation: #Type 2 diabetes mellitus: #Persistent A-fib #CKD stage IIIb: #Hypertension: #Hyperlipidemia: Medications at Discharge Home Medications duloxetine 60 mg capsule,delayed release 120 mg PO QHS mental health 11/08/21 ferrous sulfate 325 mg (65 mg iron) tablet (FeroSul) 325 mg PO DAILY@1200 #0 tabs 09/17/22 apixaban 5 mg tablet (Eliquis) 5 mg PO BID #180 tabs 11/04/22 atorvastatin 40 mg tablet 40 mg PO QHS cholesterol #90 tabs 11/04/22 dapagliflozin propanediol 10 mg tablet (Farxiga) 10 mg PO DAILY #90 tabs 02/09/23 amiodarone 200 mg tablet 200 mg PO DAILY 05/09/23 furosemide 40 mg tablet 40 mg PO DAILY 05/09/23 insulin lispro 100 unit/mL subcutaneous pen (Humalog KwikPen (U-100) Insulin) 20unit (0.2 mL) subcut TID diabetes #54 mL 05/09/23 magnesium 250 mg tablet 500 mg PO DAILY supplement 05/09/23 mecobalamin (vitamin B12) 5,000 mcg disintegrating tablet 5,000 mcg PO DAILY supplement 05/09/23 trazodone 100 mg tablet 100 mg PO DAILY insomnia 05/09/23 dulaglutide 0.75 mg/0.5 mL subcutaneous pen injector (Trulicity) 0.75 mg (0.5 mL) subcut QWEEK #2 mL 05/18/23 metoprolol succinate 50 mg tablet,extended release 24 hr 50 mg PO DAILY #90 tabs06/07/23 nystatin 100,000 unit/gram topical powder (Nyamyc) 1 applic topical BID PRN redness 06/21/23 cefazolin 2 gram intravenous solution 2 g IV Q8H 24 days 06/27/23 acetaminophen 500 mg tablet 1,000 mg (2 x 500 mg) PO Q8 #0 tabs 07/05/23 insulin glargine 100 unit/mL (3 mL) subcutaneous pen (Lantus Solostar U-100 Insulin) 12 unit (0.12 mL) subcut QHS diabetes #15 mL 07/05/23 losartan 25 mg tablet 25 mg PO DAILY #0 tabs 07/05/23 polyethylene glycol 3350 17 gram oral powder packet 17 g PO DAILY #0 ea 07/05/23 Hospital Course Procedures - (Arthrocentesis of knee and washout) Summary of Care Provided Minutes Spent on Discharge: 40 Hospital Course: CAMILLE GARDINER, is a 62 F with a significant history of CKD; obesity; hypertension; hyperlipidemia; atrial fibrillation cardioversion and heart failure with reducedejection fraction who presented to the emergency department 06/21 with progressive worsening left knee pain that started about a week before presentation. Patient went to see Orthopedic on the same day of presentation andshe was given Medrol Dosepak which she took 1 dose of and had a cortisone injection the previous . When she Re-presented there was concern for septic joint given some swelling and effusion and orthopedic surgery saw and performed arthrocentesis and she was placed on broad-spectrum antibiotics and infectious disease was consulted. Patient grew MSSA inknee joint and in blood, blood cultures subsequently cleared on repeat with antibiotics and ID recommended cefazolin for 6 weeks, PICC placed and patient worked with therapy. Initially patient was going to go to SNF however after insurance approval obtained SNF no longer able to take patient so plan was med rehab. Patient did well and was approved for med rehab. Discharge to med rehab in stable condition. Physical Exam Narrative General: Alert, oriented, no apparent distress HEENT: Atraumatic, normocephalic Eyes: Anicteric, normal conjunctiva, extraocular movements grossly intact Neck: Supple Respiratory: Clear to auscultation bilaterally, normal respiratory effort Cardiovascular: Regular rate and rhythm GI: Soft, nontender, nondistended Extremities: No significant pitting edema Musculoskeletal: Moving all extremities Neuro: No overt focal neurological deficits Skin: No rashes appreciated Psych: Cooperative Weight / BMI Weight Weight: 95.8 kg Body Mass Index (BMI) 37.4 ABG / Lab / Microbiology Data 07/05/23 06:00 07/05/23 06:00 Laboratory: Laboratory Results - last 24 hr 07/05/23 06:00: WBC 9.2, RBC 3.42 L, Hgb 10.3 L, Hct 33.5 L, MCV 98.0, MCH 30.1,MCHC 30.7 L, RDW Std Deviation 44.5 H, RDW Coeff of Patricia 12.4, Plt Count 340, MPV9.2, Immature Gran % (Auto) 0.800, Neut % (Auto) 65.8, Lymph % (Auto) 20.0, [place]% (Auto) 10.2 H, Eos % (Auto) 2.0, Baso % (Auto) 1.2 H, Absolute Neuts (auto) 6.1, Absolute Lymphs (auto) 1.84, Nucleated RBC % 0, Sodium 137, Potassium 3.9, Chloride 105, Carbon Dioxide 26.0, Anion Gap 6, BUN 29 H, Creatinine 1.35 H, Estim Creat Clear Calc 35.74, Est GFR (MDRD) Af Amer 51 L, Est GFR (MDRD) Non-Af42 L, BUN/Creatinine Ratio 21.5 H, Glucose 196 H, Calcium 9.0 Microbiology: Microbiology 06/24/23 12:15 Blood Culture (Wb) - Anticubital Left Blood Culture - Final No growth in 5 days. 06/23/23 08:35 Blood Culture (Wb) - Anticubital Left Blood Culture - Final No growth in 5 days. 06/23/23 07:57 Blood Culture (Wb) - Anticubital Left Blood Culture - Final No growth in 5 days. 06/21/23 15:20 Blood Culture (Wb) - Left Wrist Blood Culture - Final No growth in 5 days. 06/21/23 13:18 Wound Drainage - Aerobic & Anaerobic Swabs Gram Stain - Final 06/21/23 13:18 Wound Drainage - Aerobic & Anaerobic Swabs Wound Culture - Final Staphylococcus aureus 06/21/23 13:18 Wound Drainage - Aerobic & Anaerobic Swabs Anaerobic Culture - Final No anaerobic bacteria isolated. 06/21/23 08:20 Fluid - Synovial (joint) Gram Stain - Final 06/21/23 08:20 Fluid - Synovial (joint) Body Fluid Culture - Final Staphylococcus aureus Streptococcus mitis 06/21/23 08:20 Fluid - Synovial (joint) Anaerobic Culture - Final No anaerobic bacteria isolated. 06/21/23 16:30 Blood Culture (Wb) - Right Hand Bacteria Detection (PCR) - Final Staphylococcus aureus 06/21/23 16:30 Blood Culture (Wb) - Right Hand Blood Culture - Final Staphylococcus aureus 06/20/23 23:10 Urine, Clean Catch Urine Culture - Final Mixed Gram Pos & Gram Neg Org D/C Instructions Discharge Diet: Carb Control Diet Meaningful Use Info Meaningful Use Diagnoses (Choose all that apply): None applicable Discharge Plan Admission Admit Date/Time: 06/21/23 02:07 Primary Reason for Your Visit: Knee pain Attending Provider: Lashae Bearden Primary Care Provider: Nando Esposito Consulting Providers: Hebert Ruiz; Anatoliy Moreno; Comfort Cheung; Yajaira Bryan; Shayla Kennedy Instructions Patient Instructions: ED Fall Prevention Additional Instructions / Restrictions: DISCHARGE INSTRUCTIONS PLEASE READ *Please take this with you to your next doctors appointment* -You will need to remain on IV cefazolin with a stop date of 07/21/2023 and weekly BMP, CBC, and ESR will need to be drawn and faxed to [phone] -Please follow-up with infectious disease in 2 weeks upon discharge. Please call their office to schedule hospital follow-up appointment upon discharge. -Please follow-up with orthopedic in 1 week upon discharge. Please call their office to schedule hospital follow-up appointment upon discharge. -Please call your primary care provider's office upon discharge to schedule a hospital follow up within 1 week. -For any concerning signs or symptoms please call 911 or proceed to the nearest emergency department Discharge Orders/Prescriptions Prescriptions: New cefazolin 2 gram recon soln 2 g IV Q8H 24 Days Rx Instructions: dx: MSSA bacteremia stop date 07/21/23 weekly bmp, cbc, and esr; fax to [phone] polyethylene glycol 3350 17 gram Powder In Packet 17 g PO DAILY Qty: 0 0RF losartan 25 mg Tablet 25 mg PO DAILY Qty: 0 0RF acetaminophen 500 mg Tablet 1,000 mg PO Q8 Qty: 0 0RF Continued Eliquis 5 mg tablet 5 mg PO BID Qty: 180 3RF atorvastatin 40 mg tablet 40 mg PO QHS Qty: 90 3RF Farxiga 10 mg tablet 10 mg PO DAILY Qty: 90 3RF metoprolol succinate 50 mg tablet extended release 24 hr 50 mg PO DAILY Qty: 90 3RF amiodarone 200 mg tablet 200 mg PO DAILY mecobalamin (vitamin B12) 5,000 mcg tablet,disintegrating 5,000 mcg PO DAILY magnesium 250 mg tablet 500 mg PO DAILY furosemide 40 mg tablet 40 mg PO DAILY trazodone 100 mg tablet 100 mg PO DAILY insulin lispro [Humalog KwikPen Insulin] 100 unit/mL insulin pen 20 unit subcut TID Qty: 54 1RF duloxetine 60 mg capsule,delayed release(DR/EC) 120 mg PO QHS ferrous sulfate [FeroSul] 325 mg (65 mg iron) Tablet 325 mg PO DAILY@1200 Qty: 0 0RF nystatin [Nyamyc] 100,000 unit/gram Powder 1 applic topical BID PRN (Reason: redness) Protocol: *Topical Application Instructions APPLICATION INSTRUCTIONS: apply to affected areas Trulicity 0.75 mg/0.5 mL pen injector 0.75 mg subcut QWEEK Qty: 2 2RF Changed insulin glargine [Lantus Solostar U-100 Insulin] 100 unit/mL (3 mL) insulin pen 12 unit subcut QHS Qty: 15 0RF Discontinued methylprednisolone [Medrol (Bird)] 4 mg tablets,dose pack See Rx Instructions PO PER PKG DIR Qty: 21 0RF Rx Instructions: PO PER PKG DIR acetaminophen [Tylenol] 325 mg Tablet 650 mg PO Q4H PRN PRN (Reason: Fever, pain 1-06/21) Qty: 0 0RF potassium chloride 10 mEq capsule, extended release 10 meq PO DAILY Qty: 30 0RF Referrals / Follow Up: Nando Esposito MD [Primary Care Provider] - Within 1 Week Comfort Cheung MD [Med Staff - Active Staff] - Within 2 Weeks Anatoliy Moreno MD [Med Staff - Active Staff] - Within 1 Week Disposition Disposition (needs filled in before D/C Order can be placed): Inpatient Rehab Unit/Facility Charges/Coding Visit Charges Inpatient E&M: 02869 Disch Hosp >30min 07/05/23 1323 <Electronically signed by Lashae Bearden MD> Cosigner Signature (if applicable): CC: Dr. Nando Esposito MD; Dr. Lashae Bearden MD~ Signed ADDENDUM by Dr. Lashae Bearden MD on 07/05/23 at 1603 Addendum Called up to med rehab and discussed that med rec with updated insulin dosing was added, understanding verbalized 07/05/23 1603<Electronically signed by Lashae Bearden MD> Cosigner Signature (if applicable): cc: Dr. Nando Esposito MD; Dr. Lashae Bearden MD ~* Signed [facility] Work Phone: 1(568) 400-793810-24-2023 Discharge summary Author Lashae Bearden [facility] July 05, 2023 4:01pm Note Date/Time July 05, 2023 1 :20pm [facility] Medical Records Department [address] [place] [id number] Instructions for Home/Discharge Instructions 07/05/23 1318 MR#: [id number] Acct: [id number] Name: CAMILLE GARDINER Rep #:[id number] : 1960 63 From: Lashae Bearden MD PCP: Dr. Nando Esposito MD Status: ADM IN Discharge Instructions Diet Discharge Diet: Carb Control Diet Activity Discharge Activity: - (Admitting to med rehab) Follow Up Care Test Results: Test results from this visit will be discussed in further detail at your follow- up appointment, if applicable. Discharge Plan Admission Admit Date/Time: 06/21/23 02:07 Primary Reason for Your Visit: Knee pain Attending Provider: Lashae Bearden Primary Care Provider: Nando Esposito Consulting Providers: Hebert Ruiz; Anatoliy Moreno; Comfort Cheung; Yajaira Bryan; Shayla Kennedy Instructions Patient Instructions: ED Fall Prevention Additional Instructions / Restrictions: DISCHARGE INSTRUCTIONS PLEASE READ *Please take this with you to your next doctors appointment* -You will need to remain on IV cefazolin with a stop date of 07/21/2023 and weekly BMP, CBC, and ESR will need to be drawn and faxed to [phone] -Please follow-up with infectious disease in 2 weeks upon discharge. Please call their office to schedule hospital follow-up appointment upon discharge. -Please follow-up with orthopedic in 1 week upon discharge. Please call their office to schedule hospital follow-up appointment upon discharge. -Please call your primary care provider's office upon discharge to schedule a hospital follow up within 1 week. -For any concerning signs or symptoms please call 911 or proceed to the nearest emergency department Discharge Orders/Prescriptions Prescriptions: New cefazolin 2 gram recon soln 2 g IV Q8H 24 Days Rx Instructions: dx: MSSA bacteremia stop date 07/21/23 weekly bmp, cbc, and esr; fax to [phone] polyethylene glycol 3350 17 gram Powder In Packet 17 g PO DAILY Qty: 0 0RF losartan 25 mg Tablet 25 mg PO DAILY Qty: 0 0RF acetaminophen 500 mg Tablet 1,000 mg PO Q8 Qty: 0 0RF Continued Eliquis 5 mg tablet 5 mg PO BID Qty: 180 3RF atorvastatin 40 mg tablet 40 mg PO QHS Qty: 90 3RF Farxiga 10 mg tablet 10 mg PO DAILY Qty: 90 3RF metoprolol succinate 50 mg tablet extended release 24 hr 50 mg PO DAILY Qty: 90 3RF amiodarone 200 mg tablet 200 mg PO DAILY mecobalamin (vitamin B12) 5,000 mcg tablet,disintegrating 5,000 mcg PO DAILY magnesium 250 mg tablet 500 mg PO DAILY furosemide 40 mg tablet 40 mg PO DAILY trazodone 100 mg tablet 100 mg PO DAILY insulin lispro [Humalog KwikPen Insulin] 100 unit/mL insulin pen 20 unit subcut TID Qty: 54 1RF duloxetine 60 mg capsule,delayed release(DR/EC) 120 mg PO QHS ferrous sulfate [FeroSul] 325 mg (65 mg iron) Tablet 325 mg PO DAILY@1200 Qty: 0 0RF nystatin [Nyamyc] 100,000 unit/gram Powder 1 applic topical BID PRN (Reason: redness) Protocol: *Topical Application Instructions APPLICATION INSTRUCTIONS: apply to affected areas Trulicity 0.75 mg/0.5 mL pen injector 0.75 mg subcut QWEEK Qty: 2 2RF Changed insulin glargine [Lantus Solostar U-100 Insulin] 100 unit/mL (3 mL) insulin pen 12 unit subcut QHS Qty: 15 0RF Discontinued methylprednisolone [Medrol (Bird)] 4 mg tablets,dose pack See Rx Instructions PO PER PKG DIR Qty: 21 0RF Rx Instructions: PO PER PKG DIR acetaminophen [Tylenol] 325 mg Tablet 650 mg PO Q4H PRN PRN (Reason: Fever, pain 1-06/21) Qty: 0 0RF potassium chloride 10 mEq capsule, extended release 10 meq PO DAILY Qty: 30 0RF Referrals / Follow Up: Nando Esposito MD [Primary Care Provider] - Within 1 Week Comfort Cheung MD [Med Staff - Active Staff] - Within 2 Weeks Anatoliy Moreno MD [Med Staff - Active Staff] - Within 1 Week Disposition Discharge Orders: Discharge Patient (Routine); Ordered 07/05/23 Ordered By: Dr. Lashae Bearden 07/05/23 1320<Electronically signed by Lashae Bearden MD>Lashae Bearden MD CC: Dr. Nando Esposito MD; Dr. Hebert Riuz MD; Dr. Yajaira Bryan DO; Dr. Shayla Kennedy MD; Dr. Comfort Cheung MD; Dr. Anatoliy Moreno MD ~ Signed ADDENDUM by Dr. Lashae Bearden MD on 07/05/23 at 1601 ON 10 GLARGINE AT BEDTIME AND 12 PREMEAL 07/05/23 1601<Electronically signed by Lashae Bearden MD>Lashae Bearden MD cc: Dr. Nando Esposito MD; Dr. Hebert Ruiz MD; Dr. Yajaira Bryan DO; Dr. Shayla Kennedy MD; Dr. Comfort Cheung MD; Dr. Anatoliy Moreno MD ~* Signed [facility] Work Phone: 1(343) 185-156310-23-2023 Progress note Author Lashae Bearden [facility] July 04, 2023 4:57pm Note Date/Time July 04, 2023 3 :55pm [facility] Medical Records Department [facility] [place] [address] Progress Note - Hospitalist 07/04/23 1553 MR#: [id number] Acct: [id number] Name: CAMILLE GARDINER Rep #:[id number] : 1960 63 From: Lashae Bearden MD PCP: Dr. Nando Esposito MD Status: ADM IN Location: [place] [address] Reason for Visit Reason for Visit: Diagnoses Methicillin susceptible Staphylococcus aureus infection as the cause of diseasesclassified elsewhere (06/21/23) Elevated white blood cell count, unspecified (06/21/23) Type 2 diabetes mellitus with hyperglycemia (06/21/23) Hyperkalemia (06/21/23) Permanent atrial fibrillation (06/21/23) Chronic systolic (congestive) heart failure (06/21/23) Arthritis due to other bacteria, left knee (06/21/23) Pyogenic arthritis, unspecified (06/21/23) Unilateral primary osteoarthritis, left knee (06/21/23) Effusion, left knee (06/21/23) Acute cystitis without hematuria (06/21/23) Chest pain, unspecified (06/21/23) Bacteremia (06/21/23) USP (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 of insulin (06/21/23) Subjective Subjective Some soreness in patient's leg still, is having bowel movements now. Working with therapy. Awaiting placement Objective Data Objective Data Vital Signs: Vital Signs Temp Pulse Resp BP Pulse Ox O2 Del Method O2 Flow Rate 97.4 F L 71 16 118/53 L 100 Room Air 2 07/04/23 13:36 07/04/23 13:36 07/04/23 13:36 07/04/23 13:36 07/04/23 13:36 07/04/23 13:36 06/21/23 14:00 Oxygen Flow Rate (L/min) 2 Oxygen Delivery Method Room Air Weight: 95.8 kg Body Mass Index (BMI) 37.4 Intake & Output: Intake and Output for Last 24 Hours 07/02/23 07/03/23 07/04/23 23:59 23:59 23:59 Intake Total 1880 / 2680 2300 / 2772 1882 / 1882 Output Total 500 / 1007 1007 / 1667 1710 / 1710 Balance 1380 / 1673 1293 / 1105 172 / 172 Lab / Micro Data 07/04/23 06:30 07/04/23 06:30 Labs: Laboratory Results - last 24 hr 07/04/23 06:30: WBC 8.9, RBC 3.58 L, Hgb 10.7 L, Hct 35.1 L, MCV 98.0, MCH 29.9,MCHC 30.5 L, RDW Std Deviation 44.5 H, RDW Coeff of Patricia 12.4, Plt Count 329, MPV9.1, Immature Gran % (Auto) 0.900, Neut % (Auto) 62.3, Lymph % (Auto) 22.6, [place]aui% (Auto) 10.9 H, Eos % (Auto) 1.9, Baso % (Auto) 1.4 H, Absolute Neuts (auto) 5.5, Absolute Lymphs (auto) 2.01, Nucleated RBC % 0, Sodium 137, Potassium 4.0, Chloride 106, Carbon Dioxide 25.0, Anion Gap 6, BUN 28 H, Creatinine 1.41 H, Estim Creat Clear Calc 34.22, Est GFR (MDRD) Af Amer 49 L, Est GFR (MDRD) Non-Af40 L, BUN/Creatinine Ratio 19.9, Glucose 190 H, Calcium 9.0 Micro: Microbiology 06/24/23 12:15 Blood Culture (Wb) - Anticubital Left Blood Culture - Final No growth in 5 days. 06/23/23 08:35 Blood Culture (Wb) - Anticubital Left Blood Culture - Final No growth in 5 days. 06/23/23 07:57 Blood Culture (Wb) - Anticubital Left Blood Culture - Final No growth in 5 days. 06/21/23 15:20 Blood Culture (Wb) - Left Wrist Blood Culture - Final No growth in 5 days. 06/21/23 13:18 Wound Drainage - Aerobic & Anaerobic Swabs Gram Stain - Final 06/21/23 13:18 Wound Drainage - Aerobic & Anaerobic Swabs Wound Culture - Final Staphylococcus aureus 06/21/23 13:18 Wound Drainage - Aerobic & Anaerobic Swabs Anaerobic Culture - Final No anaerobic bacteria isolated. 06/21/23 08:20 Fluid - Synovial (joint) Gram Stain - Final 06/21/23 08:20 Fluid - Synovial (joint) Body Fluid Culture - Final Staphylococcus aureus Streptococcus mitis 06/21/23 08:20 Fluid - Synovial (joint) Anaerobic Culture - Final No anaerobic bacteria isolated. 06/21/23 16:30 Blood Culture (Wb) - Right Hand Bacteria Detection (PCR) - Final Staphylococcus aureus 06/21/23 16:30 Blood Culture (Wb) - Right Hand Blood Culture - Final Staphylococcus aureus 06/20/23 23:10 Urine, Clean Catch Urine Culture - Final Mixed Gram Pos & Gram Neg Org Rhythm Strip Rhythm Strip: Sinus Rhythm Rate: 75 Ectopy: None Physical Exam Narrative General: Alert, oriented, no apparent distress HEENT: Atraumatic, normocephalic Eyes: extraocular movements grossly intact Neck: Supple Respiratory: normal respiratory effort Cardiovascular: no edema appreciated GI: nondistended Extremities: Moving all extremities Neuro: No overt focal neurological deficits Psych: Cooperative Assessment & Plan Assessment/Plan (1) MSSA bacteremia: (2) Septic joint of left knee joint: PLAN: Plan #Septic arthritis of left knee due to MSSA * s/p I&D * on IV cefazolin * ID and orthopedics on board * PT/OT on board * fall precautions * on PO tylenol and PO oxycodone prn -07/04: PICC line placed, patient to be on cefazolin IV for 4 weeks with stop date 07/21/2023 and weekly labs and ID follow-up in 2 weeks. Accepted to [facility] rehab and now awaiting insurance approval. PT/OT #MSSA bacteremia * blood cultures grew MSSA * repeat blood cultures negative * on IV cefazolin * ID on board. * PICC line inserted for half-way IV antibiotics -07/04: Repeat cultures cleared, antibiotic plan as above #Constipation: * resolved. now having bowel movements #Type 2 diabetes mellitus: * On Farxiga. Last A1c on 06/21/2023 was 7.4. Insulin sliding scale. Accu- Cheks ACHS. * On Lantus 18 units daily. -07/04: On glargine 22 units nightly #Persistent A-fib: On amiodarone and metoprolol. On Eliquis. #CKD stage IIIb: Creatinine at baseline. Will monitor. #Hypertension: On lisinopril. IV hydralazine as needed. #Hyperlipidemia: On statin #DVT prophylaxis: On Eliquis. Disposition: still awaiting placement Charges/Coding Visit Charges Inpatient E&M: 02434 Subs Hosp L1 07/04/23 8067 <Electronically signed by Lashae Bearden MD> Cosigner Signature (if applicable): CC: ~ Signed [facility] Work Phone: 1(847) 405-450110-22-2023 Progress note Author Shayla Sotorainer [facility] July 03, 2023 3:46pm Note Date/Time July 03, 2023 1 0:30am [facility] Medical Records Department [address] [place] [address] Progress Note 07/03/23 1026 MR#: [id number] Acct: [id number] Name: CAMILLE GARDINER Rep #:[id number] : 1960 63 From: Shayla Kennedy MD PCP: Dr. Nando Esposito MD Status: ADM IN Location: [place] [address] Subjective Subjective Patient seen and examined. She has no complaints today. States she had bowel movements yesterday and is now watery. Review of systems otherwise negative. Objective Data Objective Data Vital Signs: Vital Signs Temp Pulse Resp BP Pulse Ox O2 Del Method O2 Flow Rate 97.9 F 82 16 145/73 H 98 Room Air 2 07/03/23 08:27 07/03/23 08:31 07/03/23 08:27 07/03/23 08:27 07/03/23 08:27 07/03/23 08:27 06/21/23 14:00 Oxygen Flow Rate (L/min) 2 Oxygen Delivery Method Room Air Weight: 211 lb 3.245 oz Body Mass Index (BMI) 37.4 Intake & Output: Intake and Output for Last 24 Hours 07/01/23 07/02/23 07/03/23 23:59 23:59 23:59 Intake Total 630 / 1030 1880 / 2680 1280 / 1280 Output Total 2049 / 2049 500 / 1007 1007 / 1007 Balance -1420 / -1020 1380 / 1673 273 / 273 Lab / Micro Data 07/03/23 07:08 07/03/23 07:08 Labs: Laboratory Results - last 24 hr 07/03/23 07:08: WBC 11.6 H, RBC 3.50 L, Hgb 10.6 L, Hct 33.7 L, MCV 96.3, MCH 30.3, MCHC 31.5 L, RDW Std Deviation 44.1 H, RDW Coeff of Patricia 12.5, Plt Count 323, MPV 9.2, Immature Gran % (Auto) 1.100 H, Neut % (Auto) 69.1, Lymph % (Auto)16.8 L, Maui % (Auto) 10.5 H, Eos % (Auto) 1.5, Baso % (Auto) 1.0, Absolute Neuts (auto) 8.1 H, Absolute Lymphs (auto) 1.95, Nucleated RBC % 0, Sodium 135 L, Potassium 3.6, Chloride 103, Carbon Dioxide 24.0, Anion Gap 8, BUN 25 H, Creatinine 1.39 H, Estim Creat Clear Calc 34.71, Est GFR (MDRD) Af Amer 49 L, Est GFR (MDRD) Non-Af 41 L, BUN/Creatinine Ratio 18.0, Glucose 191 H, Calcium 8.9 Micro: Microbiology 06/24/23 12:15 Blood Culture (Wb) - Anticubital Left Blood Culture - Final No growth in 5 days. 06/23/23 08:35 Blood Culture (Wb) - Anticubital Left Blood Culture - Final No growth in 5 days. 06/23/23 07:57 Blood Culture (Wb) - Anticubital Left Blood Culture - Final No growth in 5 days. 06/21/23 15:20 Blood Culture (Wb) - Left Wrist Blood Culture - Final No growth in 5 days. 06/21/23 13:18 Wound Drainage - Aerobic & Anaerobic Swabs Gram Stain - Final 06/21/23 13:18 Wound Drainage - Aerobic & Anaerobic Swabs Wound Culture - Final Staphylococcus aureus 06/21/23 13:18 Wound Drainage - Aerobic & Anaerobic Swabs Anaerobic Culture - Final No anaerobic bacteria isolated. 06/21/23 08:20 Fluid - Synovial (joint) Gram Stain - Final 06/21/23 08:20 Fluid - Synovial (joint) Body Fluid Culture - Final Staphylococcus aureus Streptococcus mitis 06/21/23 08:20 Fluid - Synovial (joint) Anaerobic Culture - Final No anaerobic bacteria isolated. 06/21/23 16:30 Blood Culture (Wb) - Right Hand Bacteria Detection (PCR) - Final Staphylococcus aureus 06/21/23 16:30 Blood Culture (Wb) - Right Hand Blood Culture - Final Staphylococcus aureus 06/20/23 23:10 Urine, Clean Catch Urine Culture - Final Mixed Gram Pos & Gram Neg Org Rhythm Strip Rhythm Strip: Sinus Rhythm Rate: 75 Ectopy: None Physical Exam Const alert, oriented x3, no apparent distress and well nourished General Appearance: cooperative HEENT normocephalic, head/scalp atraumatic, moist oral mucous membranes and oropharynxnormal Eyes PERRL and EOMs intact bilaterally Neck no lymphadenopathy and supple Lymph Lymphatic: no lymphadenopathy noted Resp normal respiratory effort, normal air movement, no retractions, no use of accessory muscles and clear to auscultation bilaterally Auscultation: Negative for rales, rhonchi or wheezes Cardio regular rate, regular rhythm, S1 normal heart sound, S2 normal heart sound, no murmurs, no rub, no gallops and no clicks GI normal to inspection, nondistended, normoactive bowel sounds, soft to palpation,non-tender and non-distended Extremity normal capillary refill and no clubbing, cyanosis or edema; Negative for full ROM Extremity Narrative: site of I&D well healed General Extremity: no tenderness to palpation of joints or extremities Skin General Skin Exam: no breakdown Neuro oriented x3, CN's II-XII intact bilaterally, moves all extremities, no focal motor deficits and no sensory deficits noted Speech: speech normal Motor Exam: strength 5/5 throughout and general weakness Psych thought process normal, cooperative and affect normal Appearance: appropriate Assessment & Plan Assessment/Plan (1) MSSA bacteremia: (2) Septic joint of left knee joint: PLAN: Plan #Septic arthritis of left knee due to MSSA * s/p I&D * on IV cefazolin * ID and orthopedics on board * PT/OT on board * fall precautions * on PO tylenol and PO oxycodone prn * #MSSA bacteremia * blood cultures grew MSSA * repeat blood cultures negative * on IV cefazolin * ID on board. * PICC line inserted for bed bug exterminator IV antibiotics * #Constipation: * resolved. now having bowel movements #Type 2 diabetes mellitus: * On Farxiga. Last A1c on 06/21/2023 was 7.4. Insulin sliding scale. Accu- Cheks ACHS. * On Lantus 18 units daily. * #Persistent A-fib: On amiodarone and metoprolol. On Eliquis. #CKD stage IIIb: Creatinine at baseline. Will monitor. #Hypertension: On lisinopril. IV hydralazine as needed. #Hyperlipidemia: On statin #DVT prophylaxis: On Eliquis. Disposition: still awaiting placement Charges/Coding Visit Charges Inpatient E&M: 63054 Subs Hosp L2 07/03/23 1546 <Electronically signed by Shayla Kennedy MD> Shayla Kennedy MD Cosigner Signature (if applicable): CC: ~ Signed [facility] Work Phone: 1(266) 268-936510-21-2023 Progress note Author Shayla [facility] July 02, 2023 3:06pm Note Date/Time July 02, 2023 1 :34pm [facility] Medical Records Department [address] [facility] [place] [address] Progress Note 07/02/23 1332 MR#: [id number] Acct: [id number] Name: CAMILLE GARDINER Rep #:[id number] : 1960 63 From: Shayla Kennedy MD PCP: Dr. Nando Esposito MD Status: ADM IN Location: [place] [address] Subjective Subjective Patient seen and examined. She had 3 bowel movements yesterday. She had no othercomplaints today. Review of systems is otherwise negative. She has remained hemodynamically stable. Objective Data Objective Data Vital Signs: Vital Signs Temp Pulse Resp BP Pulse Ox O2 Del Method O2 Flow Rate 98.1 F 81 16 142/68 H 100 Room Air 2 07/02/23 09:31 07/02/23 09:44 07/02/23 09:31 07/02/23 09:44 07/02/23 09:31 07/02/23 09:31 06/21/23 14:00 Oxygen Flow Rate (L/min) 2 Oxygen Delivery Method Room Air Weight: 211 lb 3.245 oz Body Mass Index (BMI) 37.4 Intake & Output: Intake and Output for Last 24 Hours 06/30/23 07/01/23 07/02/23 23:59 23:59 23:59 Intake Total 3850 / 3850 630 / 1030 560 / 560 Output Total 2950 / 3600 2050 / 2050 500 / 500 Balance 900 / 250 -1420 / -1020 60 / 60 Lab / Micro Data 07/02/23 07:35 07/02/23 07:35 Labs: Laboratory Results - last 24 hr 07/02/23 07:35: WBC 10.4, RBC 3.58 L, Hgb 10.9 L, Hct 34.6 L, MCV 96.6, MCH 30.4, MCHC 31.5 L, RDW Std Deviation 43.9, RDW Coeff of Patricia 12.5, Plt Count 329,MPV 9.3, Immature Gran % (Auto) 1.100 H, Neut % (Auto) 66.6, Lymph % (Auto) 18.5L, [place]au[place] % (Auto) 11.5 H, Eos % (Auto) 1.4, Baso % (Auto) 0.9, Absolute Neuts (auto) 6.9, Absolute Lymphs (auto) 1.92, Nucleated RBC % 0, Sodium 137, Potassium 3.9, Chloride 104, Carbon Dioxide 26.0, Anion Gap 7, BUN 26 H, Creatinine 1.40 H, Estim Creat Clear Calc 34.47, Est GFR (MDRD) Af Amer 49 L, Est GFR (MDRD) Non-Af 41 L, BUN/Creatinine Ratio 18.6, Glucose 219 H, Calcium 9.0 Micro: Microbiology 06/24/23 12:15 Blood Culture (Wb) - Anticubital Left Blood Culture - Final No growth in 5 days. 06/23/23 08:35 Blood Culture (Wb) - Anticubital Left Blood Culture - Final No growth in 5 days. 06/23/23 07:57 Blood Culture (Wb) - Anticubital Left Blood Culture - Final No growth in 5 days. 06/21/23 15:20 Blood Culture (Wb) - Left Wrist Blood Culture - Final No growth in 5 days. 06/21/23 13:18 Wound Drainage - Aerobic & Anaerobic Swabs Gram Stain - Final 06/21/23 13:18 Wound Drainage - Aerobic & Anaerobic Swabs Wound Culture - Final Staphylococcus aureus 06/21/23 13:18 Wound Drainage - Aerobic & Anaerobic Swabs Anaerobic Culture - Final No anaerobic bacteria isolated. 06/21/23 08:20 Fluid - Synovial (joint) Gram Stain - Final 06/21/23 08:20 Fluid - Synovial (joint) Body Fluid Culture - Final Staphylococcus aureus Streptococcus mitis 06/21/23 08:20 Fluid - Synovial (joint) Anaerobic Culture - Final No anaerobic bacteria isolated. 06/21/23 16:30 Blood Culture (Wb) - Right Hand Bacteria Detection (PCR) - Final Staphylococcus aureus 06/21/23 16:30 Blood Culture (Wb) - Right Hand Blood Culture - Final Staphylococcus aureus 06/20/23 23:10 Urine, Clean Catch Urine Culture - Final Mixed Gram Pos & Gram Neg Org Rhythm Strip Rhythm Strip: Sinus Rhythm Rate: 75 Ectopy: None Physical Exam Const alert, oriented x3, no apparent distress and well nourished General Appearance: cooperative HEENT normocephalic, head/scalp atraumatic, moist oral mucous membranes and oropharynxnormal Eyes PERRL and EOMs intact bilaterally Neck no lymphadenopathy and supple Lymph Lymphatic: no lymphadenopathy noted Resp normal respiratory effort, normal air movement, no retractions, no use of accessory muscles and clear to auscultation bilaterally Auscultation: Negative for rales, rhonchi or wheezes Cardio regular rate, regular rhythm, S1 normal heart sound, S2 normal heart sound, no murmurs, no rub, no gallops and no clicks GI normal to inspection, nondistended, normoactive bowel sounds, soft to palpation,non-tender and non-distended Extremity normal capillary refill and no clubbing, cyanosis or edema; Negative for full ROM Extremity Narrative: site of I&D well healed General Extremity: no tenderness to palpation of joints or extremities Skin General Skin Exam: no breakdown Neuro oriented x3, CN's II-XII intact bilaterally, moves all extremities, no focal motor deficits and no sensory deficits noted Speech: speech normal Motor Exam: strength 5/5 throughout and general weakness Psych thought process normal, cooperative and affect normal Appearance: appropriate Assessment & Plan Assessment/Plan (1) MSSA bacteremia: (2) Septic joint of left knee joint: PLAN: Plan #Septic arthritis of left knee due to MSSA * today is POD 8 of I&D * on IV cefazolin * ID and orthopedics on board * PT/OT on board * fall precautions * on PO tylenol and PO oxycodone prn * #MSSA bacteremia * blood cultures grew MSSA * repeat blood cultures negative * on IV cefazolin * ID on board. * PICC line inserted for bed bug exterminator IV antibiotics * #Constipation: * resolved. Had 3 bowel movements yesterday and feels much better. #Type 2 diabetes mellitus: * On Farxiga. Last A1c on 06/21/2023 was 7.4. Insulin sliding scale. Accu- Cheks ACHS. * On Lantus 18 units daily. * #Persistent A-fib: On amiodarone and metoprolol. On Eliquis. #CKD stage IIIb: Creatinine at baseline. Will monitor. #Hypertension: On lisinopril. IV hydralazine as needed. #Hyperlipidemia: On statin #DVT prophylaxis: On Eliquis. Disposition: still awaiting placement Charges/Coding Visit Charges Inpatient E&M: 85620 Subs Hosp L2 07/02/23 1506 <Electronically signed by Shayla Kennedy MD> Shayla Kennedy MD Cosigner Signature (if applicable): CC: ~ Signed [facility] Work Phone: 1(120) 953-536310-20-2023 Progress note Author [facility] July 01, 2023 4:00pm Note Date/Time July 01, 2023 1 1:04[facility] Medical Records Department [address] [place] [address] Progress Note 07/01/23 1100 MR#: [id number] Acct: [id number] Name: CAMILLE GARDINER Rep #:[id number] : 1960 63 From: Shayla Kennedy MD PCP: Dr. Nando Esposito MD Status: ADM IN Location: [place] [address] Subjective Subjective Patient seen and examined. She still complains of constipation. She had no othercomplaints. She had CT abdomen and pelvis which confirmed significant stool retention. Objective Data Objective Data Vital Signs: Vital Signs Temp Pulse Resp BP Pulse Ox O2 Del Method O2 Flow Rate 97.7 F L 82 18 162/63 H 100 Room Air 2 07/01/23 08:17 07/01/23 08:22 07/01/23 08:17 07/01/23 08:22 07/01/23 08:17 07/01/23 08:17 06/21/23 14:00 Oxygen Flow Rate (L/min) 2 Oxygen Delivery Method Room Air Weight: 211 lb 3.245 oz Body Mass Index (BMI) 37.4 Intake & Output: Intake and Output for Last 24 Hours 06/29/23 06/30/23 07/01/23 23:59 23:59 23:59 Intake Total 2270 / 2270 3850 / 3850 110 / 110 Output Total 2200 / 2200 2950 / 3600 1550 / 1550 Balance 70 / 70 900 / 250 -1440 / -1440 Lab / Micro Data 07/01/23 05:05 07/01/23 05:05 Labs: Laboratory Results - last 24 hr 07/01/23 05:05: WBC 12.9 H, RBC 3.79 L, Hgb 11.4 L, Hct 36.4 L, MCV 96.0, MCH 30.1, MCHC 31.3 L, RDW Std Deviation 43.3, RDW Coeff of Patricia 12.5, Plt Count 367, MPV 9.0, Immature Gran % (Auto) 1.200 H, Neut % (Auto) 73.0 H, Lymph % (Auto) 16.3 L, [place] % (Auto) 7.8, Eos % (Auto) 0.9, Baso % (Auto) 0.8, Absolute Neuts (auto) 9.4 H, Absolute Lymphs (auto) 2.10, Nucleated RBC % 0, Sodium 137, Potassium 4.1, Chloride 103, Carbon Dioxide 29.0, Anion Gap 5, BUN 26 H, Creatinine 1.28 H, Estim Creat Clear Calc 37.70, Est GFR (MDRD) Af Amer 54 L, Est GFR (MDRD) Non-Af 45 L, BUN/Creatinine Ratio 20.3 H, Glucose 196 H, Calcium 9.2 Micro: Microbiology 06/24/23 12:15 Blood Culture (Wb) - Anticubital Left Blood Culture - Final No growth in 5 days. 06/23/23 08:35 Blood Culture (Wb) - Anticubital Left Blood Culture - Final No growth in 5 days. 06/23/23 07:57 Blood Culture (Wb) - Anticubital Left Blood Culture - Final No growth in 5 days. 06/21/23 15:20 Blood Culture (Wb) - Left Wrist Blood Culture - Final No growth in 5 days. 06/21/23 13:18 Wound Drainage - Aerobic & Anaerobic Swabs Gram Stain - Final 06/21/23 13:18 Wound Drainage - Aerobic & Anaerobic Swabs Wound Culture - Final Staphylococcus aureus 06/21/23 13:18 Wound Drainage - Aerobic & Anaerobic Swabs Anaerobic Culture - Final No anaerobic bacteria isolated. 06/21/23 08:20 Fluid - Synovial (joint) Gram Stain - Final 06/21/23 08:20 Fluid - Synovial (joint) Body Fluid Culture - Final Staphylococcus aureus Streptococcus mitis 06/21/23 08:20 Fluid - Synovial (joint) Anaerobic Culture - Final No anaerobic bacteria isolated. 06/21/23 16:30 Blood Culture (Wb) - Right Hand Bacteria Detection (PCR) - Final Staphylococcus aureus 06/21/23 16:30 Blood Culture (Wb) - Right Hand Blood Culture - Final Staphylococcus aureus 06/20/23 23:10 Urine, Clean Catch Urine Culture - Final Mixed Gram Pos & Gram Neg Org Radiography Diagnostic Testing: Radiology Impression Abdomen/Pelvis CT 06/30/23 18:25 IMPRESSION: Mildly diffusely distended fecal filled colon with rectal impaction.. No evidence for small bowel obstruction or other acute abnormality Electronically Signed: Beck Franco MD at 18:58 EDT , Rhythm Strip Rhythm Strip: Sinus Rhythm Rate: 75 Ectopy: None Physical Exam Const alert, oriented x3, no apparent distress and well nourished General Appearance: cooperative HEENT normocephalic, head/scalp atraumatic, moist oral mucous membranes and oropharynxnormal Eyes PERRL and EOMs intact bilaterally Neck no lymphadenopathy and supple Lymph Lymphatic: no lymphadenopathy noted Resp normal respiratory effort, normal air movement, no retractions, no use of accessory muscles and clear to auscultation bilaterally Auscultation: Negative for rales, rhonchi or wheezes Cardio regular rate, regular rhythm, S1 normal heart sound, S2 normal heart sound, no murmurs, no rub, no gallops and no clicks GI normal to inspection, nondistended, normoactive bowel sounds, soft to palpation,non-tender and non-distended Extremity normal capillary refill and no clubbing, cyanosis or edema; Negative for full ROM Extremity Narrative: site of I&D well healed General Extremity: no tenderness to palpation of joints or extremities Skin General Skin Exam: no breakdown Neuro oriented x3, CN's II-XII intact bilaterally, moves all extremities, no focal motor deficits and no sensory deficits noted Speech: speech normal Motor Exam: strength 5/5 throughout and general weakness Psych thought process normal, cooperative and affect normal Appearance: appropriate Assessment & Plan Assessment/Plan (1) MSSA bacteremia: (2) Septic joint of left knee joint: PLAN: Plan #Septic arthritis of left knee due to MSSA * today is POD 8 of I&D * on IV cefazolin * ID and orthopedics on board * PT/OT on board * fall precautions * on PO tylenol and PO oxycodone prn * #MSSA bacteremia * blood cultures grew MSSA * repeat blood cultures negative * on IV cefazolin * ID on board. * PICC line inserted for half-way IV antibiotics * #Constipation: * Has had multiple enemas and is on lactulose as well as Senokot. She still has not had a bowel movement. CT of the abdomen and pelvis done yesterday showed mildly diffusely distended fecal filled colon with rectal impaction. * Discussed with her nurse today. To give suppository Dulcolax with rectal stimulation to hopefully stimulate a bowel movement. If this is unsuccessful, will consult general surgery for manual disimpaction. #Type 2 diabetes mellitus: * On Farxiga. Last A1c on 06/21/2023 was 7.4. Insulin sliding scale. Accu- Cheks ACHS. * On Lantus 18 units daily. * #Persistent A-fib: On amiodarone and metoprolol. On Eliquis. #CKD stage IIIb: Creatinine at baseline. Will monitor. #Hypertension: On lisinopril. IV hydralazine as needed. #Hyperlipidemia: On statin #DVT prophylaxis: On Eliquis. Disposition: still awaiting placement Charges/Coding Visit Charges Inpatient E&M: 46601 Subs Hosp L2 07/01/23 1600 <Electronically signed by Shayla Kennedy MD> Shayla Kennedy MD Cosigner Signature (if applicable): CC: ~ Signed [facility] Work Phone: 1(657) 666-806710-19-2023 Progress note Author Shayla Kennedy [facility] June 30, 2023 3:16pm Note Date/Time June 30, 2023 1 1:48am [facility] Medical Records Department [address] [place] [address] Progress Note 06/30/23 1145 MR#: [id number] Acct: [id number] Name: CAMILLE GARDINER Rep #:[id number] : 1960 63 From: Shayla Kennedy MD PCP: Dr. Nando Esposito MD Status: ADM IN Location: [place] [address] Subjective Subjective Patient seen and examined. Still complains of constipation. She has no other complaints today on review of systems otherwise negative. Objective Data Objective Data Vital Signs: Vital Signs Temp Pulse Resp BP Pulse Ox O2 Del Method O2 Flow Rate 97.6 F L 82 18 131/72 H 100 Room Air 2 06/30/23 09:38 06/30/23 09:41 06/30/23 09:38 06/30/23 09:38 06/30/23 09:38 06/30/23 09:38 06/21/23 14:00 Oxygen Flow Rate (L/min) 2 Oxygen Delivery Method Room Air Weight: 211 lb 3.245 oz Body Mass Index (BMI) 37.4 Intake & Output: Intake and Output for Last 24 Hours 06/28/23 06/29/23 06/30/23 23:59 23:59 23:59 Intake Total 1900 / 1900 2270 / 2270 230 / 230 Output Total 2150 / 2150 2200 / 2200 1000 / 1000 Balance -250 / -250 70 / 70 -770 / -770 Lab / Micro Data 06/30/23 05:35 06/30/23 05:35 Labs: Laboratory Results - last 24 hr 06/28/23 05:47: Diff Path Review Reviewed 06/29/23 06:30: Diff Path Review Reviewed 06/30/23 05:35: WBC 12.7 H, RBC 3.78 L, Hgb 11.6 L, Hct 36.7 L, MCV 97.1, MCH 30.7, MCHC 31.6 L, RDW Std Deviation 44.2 H, RDW Coeff of Patricia 12.4, Plt Count 353, MPV 9.1, Immature Gran % (Auto) 1.100 H, Neut % (Auto) 73.2 H, Lymph % (Auto) 15.6 L, [place] % (Auto) 8.4, Eos % (Auto) 1.2, Baso % (Auto) 0.5, Absolute Neuts (auto) 9.3 H, Absolute Lymphs (auto) 1.98, Nucleated RBC % 0, Sodium 137, Potassium 4.3, Chloride 105, Carbon Dioxide 25.0, Anion Gap 7, BUN 34 H, Creatinine 1.48 H, Estim Creat Clear Calc 32.60, Est GFR (MDRD) Af Amer 46 L, Est GFR (MDRD) Non-Af 38 L, BUN/Creatinine Ratio 23.0 H, Glucose 201 H, Calcium 9.1 Micro: Microbiology 06/24/23 12:15 Blood Culture (Wb) - Anticubital Left Blood Culture - Final No growth in 5 days. 06/23/23 08:35 Blood Culture (Wb) - Anticubital Left Blood Culture - Final No growth in 5 days. 06/23/23 07:57 Blood Culture (Wb) - Anticubital Left Blood Culture - Final No growth in 5 days. 06/21/23 15:20 Blood Culture (Wb) - Left Wrist Blood Culture - Final No growth in 5 days. 06/21/23 13:18 Wound Drainage - Aerobic & Anaerobic Swabs Gram Stain - Final 06/21/23 13:18 Wound Drainage - Aerobic & Anaerobic Swabs Wound Culture - Final Staphylococcus aureus 06/21/23 13:18 Wound Drainage - Aerobic & Anaerobic Swabs Anaerobic Culture - Final No anaerobic bacteria isolated. 06/21/23 08:20 Fluid - Synovial (joint) Gram Stain - Final 06/21/23 08:20 Fluid - Synovial (joint) Body Fluid Culture - Final Staphylococcus aureus Streptococcus mitis 06/21/23 08:20 Fluid - Synovial (joint) Anaerobic Culture - Final No anaerobic bacteria isolated. 06/21/23 16:30 Blood Culture (Wb) - Right Hand Bacteria Detection (PCR) - Final Staphylococcus aureus 06/21/23 16:30 Blood Culture (Wb) - Right Hand Blood Culture - Final Staphylococcus aureus 06/20/23 23:10 Urine, Clean Catch Urine Culture - Final Mixed Gram Pos & Gram Neg Org Rhythm Strip Rhythm Strip: Sinus Rhythm Rate: 75 Ectopy: None Physical Exam Const alert, oriented x3, no apparent distress and well nourished General Appearance: cooperative HEENT normocephalic, head/scalp atraumatic, moist oral mucous membranes and oropharynxnormal Eyes PERRL and EOMs intact bilaterally Neck no lymphadenopathy and supple Lymph Lymphatic: no lymphadenopathy noted Resp normal respiratory effort, normal air movement, no retractions, no use of accessory muscles and clear to auscultation bilaterally Auscultation: Negative for rales, rhonchi or wheezes Cardio regular rate, regular rhythm, S1 normal heart sound, S2 normal heart sound, no murmurs, no rub, no gallops and no clicks GI normal to inspection, nondistended, normoactive bowel sounds, soft to palpation,non-tender and non-distended Extremity normal capillary refill and no clubbing, cyanosis or edema; Negative for full ROM Extremity Narrative: site of I&D well healed General Extremity: no tenderness to palpation of joints or extremities Skin General Skin Exam: no breakdown Neuro oriented x3, CN's II-XII intact bilaterally, moves all extremities, no focal motor deficits and no sensory deficits noted Speech: speech normal Motor Exam: strength 5/5 throughout and general weakness Psych thought process normal, cooperative and affect normal Appearance: appropriate Assessment & Plan Assessment/Plan (1) MSSA bacteremia: (2) Septic joint of left knee joint: PLAN: Plan #Septic arthritis of left knee due to MSSA * today is POD 8 of I&D * on IV cefazolin * ID and orthopedics on board * PT/OT on board * fall precautions * on PO tylenol and PO oxycodone prn * #MSSA bacteremia * blood cultures grew MSSA * repeat blood cultures negative * on IV cefazolin * ID on board. * PICC line inserted for bed bug exterminator IV antibiotics * #Constipation: Patient given an enema yesterday which did not help. We will give another enema today and start on lactulose to help with constipation. DC lactulose once constipation is resolved. #Type 2 diabetes mellitus: * On Farxiga. Last A1c on 06/21/2023 was 7.4. Insulin sliding scale. Accu- Cheks ACHS. * On Lantus 18 units daily. * #Persistent A-fib: On amiodarone and metoprolol. On Eliquis. #CKD stage IIIb: Creatinine at baseline. Will monitor. #Hypertension: On lisinopril. IV hydralazine as needed. #Hyperlipidemia: On statin #DVT prophylaxis: On Eliquis. Disposition: Awaiting placement. Charges/Coding Visit Charges Inpatient E&M: 77584 Subs Hosp L2 06/30/23 1516 <Electronically signed by Shayla Kennedy MD> Shayla Kennedy MD Cosigner Signature (if applicable): CC: ~ Signed [facility] Work Phone: 1(565) 582-966210-18-2023 Progress note Author Shayla [facility] June 29, 2023 6:26pm Note Date/Time June 29, 2023 2 :24pm [facility] Medical Records Department [address] [place] [address] Progress Note 06/29/23 1421 MR#: [id number] Acct: [id number] Name: CAMILLE GARDINER Rep #:[id number] : 1960 63 From: Shayla Kennedy MD PCP: Dr. Nando Esposito MD Status: ADM IN Location: [place] [address] Subjective Subjective Patient seen and examined. She had no active complaints and had an uneventful night. She did have constipation yesterday and says she still feels constipated. Review of systems otherwise negative. Objective Data Objective Data Vital Signs: Vital Signs Temp Pulse Resp BP Pulse Ox O2 Del Method O2 Flow Rate 97.7 F L 82 18 123/54 H 97 Room Air 2 06/29/23 09:20 06/29/23 09:29 06/29/23 09:20 06/29/23 09:20 06/29/23 09:20 06/29/23 09:20 06/21/23 14:00 Oxygen Flow Rate (L/min) 2 Oxygen Delivery Method Room Air Weight: 211 lb 3.245 oz Body Mass Index (BMI) 37.4 Intake & Output: Intake and Output for Last 24 Hours 06/27/23 06/28/23 06/29/23 23:59 23:59 23:59 Intake Total 570 / 870 1900 / 1900 830 / 830 Output Total 1150 / 1650 2150 / 2150 350 / 350 Balance -580 / -780 -250 / -250 480 / 480 Lab / Micro Data 06/29/23 06:30 06/29/23 06:30 Labs: Laboratory Results - last 24 hr 06/28/23 05:47: Diff Path Review Reviewed 06/28/23 21:44: POC Glucose 154 H 06/29/23 06:30: WBC 16.1 H, RBC 3.52 L, Hgb 10.7 L, Hct 34.5 L, MCV 98.0, MCH 30.4, MCHC 31.0 L, RDW Std Deviation 43.8, RDW Coeff of Patricia 12.4, Plt Count 348,MPV 9.0, Immature Gran % (Auto) 1.000 H, Neut % (Auto) 75.4 H, Lymph % (Auto) 12.3 L, [place] % (Auto) 9.7, Eos % (Auto) 1.2, Baso % (Auto) 0.4, Absolute Neuts (auto) 12.1 H, Absolute Lymphs (auto) 1.99, Nucleated RBC % 0, Diff Path Review January, Sodium 137, Potassium 4.1, Chloride 104, Carbon Dioxide 27.0, Anion Gap 6, BUN 34 H, Creatinine 1.33 H, Estim Creat Clear Calc 36.28, Est GFR (MDRD)Af Amer 52 L, Est GFR (MDRD) Non-Af 43 L, BUN/Creatinine Ratio 25.6 H, Glucose 175 H, Calcium 8.9 06/29/23 07:54: POC Glucose 166 H Micro: Microbiology 06/24/23 12:15 Blood Culture (Wb) - Anticubital Left Blood Culture - Final No growth in 5 days. 06/23/23 08:35 Blood Culture (Wb) - Anticubital Left Blood Culture - Final No growth in 5 days. 06/23/23 07:57 Blood Culture (Wb) - Anticubital Left Blood Culture - Final No growth in 5 days. 06/21/23 15:20 Blood Culture (Wb) - Left Wrist Blood Culture - Final No growth in 5 days. 06/21/23 13:18 Wound Drainage - Aerobic & Anaerobic Swabs Gram Stain - Final 06/21/23 13:18 Wound Drainage - Aerobic & Anaerobic Swabs Wound Culture - Final Staphylococcus aureus 06/21/23 13:18 Wound Drainage - Aerobic & Anaerobic Swabs Anaerobic Culture - Final No anaerobic bacteria isolated. 06/21/23 08:20 Fluid - Synovial (joint) Gram Stain - Final 06/21/23 08:20 Fluid - Synovial (joint) Body Fluid Culture - Final Staphylococcus aureus Streptococcus mitis 06/21/23 08:20 Fluid - Synovial (joint) Anaerobic Culture - Final No anaerobic bacteria isolated. 06/21/23 16:30 Blood Culture (Wb) - Right Hand Bacteria Detection (PCR) - Final Staphylococcus aureus 06/21/23 16:30 Blood Culture (Wb) - Right Hand Blood Culture - Final Staphylococcus aureus 06/20/23 23:10 Urine, Clean Catch Urine Culture - Final Mixed Gram Pos & Gram Neg Org Rhythm Strip Rhythm Strip: Sinus Rhythm Rate: 75 Ectopy: None Physical Exam Const alert, oriented x3, no apparent distress and well nourished General Appearance: cooperative HEENT normocephalic, head/scalp atraumatic, moist oral mucous membranes and oropharynxnormal Eyes PERRL and EOMs intact bilaterally Neck no lymphadenopathy and supple Lymph Lymphatic: no lymphadenopathy noted Resp normal respiratory effort, normal air movement, no retractions, no use of accessory muscles and clear to auscultation bilaterally Auscultation: Negative for rales, rhonchi or wheezes Cardio regular rate, regular rhythm, S1 normal heart sound, S2 normal heart sound, no murmurs, no rub, no gallops and no clicks GI normal to inspection, nondistended, normoactive bowel sounds, soft to palpation,non-tender and non-distended Extremity normal capillary refill and no clubbing, cyanosis or edema; Negative for full ROM Extremity Narrative: intact dressing over the left knee at I&D site General Extremity: no tenderness to palpation of joints or extremities Skin General Skin Exam: no breakdown Neuro oriented x3, CN's II-XII intact bilaterally, moves all extremities, no focal motor deficits and no sensory deficits noted Neuro Narrative: Decreased ability to move left knee due to pain Speech: speech normal Motor Exam: general weakness Psych thought process normal, cooperative and affect normal Appearance: appropriate Assessment & Plan Assessment/Plan (1) MSSA bacteremia: (2) Septic joint of left knee joint: PLAN: Plan #Septic arthritis of left knee due to MSSA * today is POD 7 of I&D * on IV cefazolin * ID and orthopedics on board * PT/OT on board * fall precautions * on PO tylenol and PO oxycodone prn * #MSSA bacteremia * blood cultures grew MSSA * repeat blood cultures negative * on IV cefazolin * ID on board. * PICC line inserted for half-way IV antibiotics * #Type 2 diabetes mellitus: * On Farxiga. Last A1c on 06/21/2023 was 7.4. Insulin sliding scale. Accu- Cheks ACHS. * On Lantus 18 units daily. * #Persistent A-fib: On amiodarone and metoprolol. On Eliquis. #CKD stage IIIb: Creatinine at baseline. Will monitor. #Hypertension: On lisinopril. IV hydralazine as needed. #Hyperlipidemia: On statin #DVT prophylaxis: On Eliquis. Disposition: Awaiting placement. Charges/Coding Visit Charges Inpatient E&M: 17494 Subs Hosp L2 06/29/236 <Electronically signed by Shayla Kennedy MD> Shayla Kennedy MD Cosigner Signature (if applicable): CC: ~ Signed [facility] Work Phone: [phone]) 901-145710-17-2023 Progress note Author [facility] June 28, 2023 8:26pm Note Date/Time June 28, 2023 3 :13pm [facility] Medical Records Department [address] [place] [address] Progress Note 06/28/23 1509 MR#: [id number] Acct: [id number] Name: CAMILLE GARDINER Rep #:[id number] : 1960 63 From: Shayla Kennedy MD PCP: Dr. Nando Esposito MD Status: ADM IN Location: [place] [address] Subjective Subjective Patient seen and examined. She complains of constipation but otherwise had no other complaints. Review of systems otherwise negative. He has remained hemodynamically stable. Objective Data Objective Data Vital Signs: Vital Signs Temp Pulse Resp BP Pulse Ox O2 Del Method O2 Flow Rate 98.2 F 77 16 123/66 H 98 Room Air 2 06/28/23 08:34 06/28/23 08:50 06/28/23 08:34 06/28/23 08:50 06/28/23 08:34 06/28/23 08:37 06/21/23 14:00 Oxygen Flow Rate (L/min) 2 Oxygen Delivery Method Room Air Weight: 211 lb 3.245 oz Body Mass Index (BMI) 37.4 Intake & Output: Intake and Output for Last 24 Hours 06/26/23 06/27/23 06/28/23 23:59 23:59 23:59 Intake Total 330 / 330 570 / 870 1200 / 1200 Output Total 2800 / 2800 1150 / 1650 1500 / 1500 Balance -2470 / -2470 -580 / -780 -300 / -300 Lab / Micro Data 06/28/23 05:47 06/28/23 05:47 Labs: Laboratory Results - last 24 hr 06/26/23 05:54: Diff Path Review Reviewed 06/27/23 05:15: Diff Path Review Reviewed 06/28/23 05:47: WBC 13.1 H, RBC 3.75 L, Hgb 11.3 L, Hct 36.5 L, MCV 97.3, MCH 30.1, MCHC 31.0 L, RDW Std Deviation 43.3, RDW Coeff of Patricia 12.2, Plt Count 345,MPV 9.0, Immature Gran % (Auto) 1.500 H, Neut % (Auto) 63.0, Lymph % (Auto) 20.4, [place] % (Auto) 12.3 H, Eos % (Auto) 2.3, Baso % (Auto) 0.5, Absolute Neuts (auto) 8.2 H, Absolute Lymphs (auto) 2.67, Nucleated RBC % 0, Diff Path Review January, Sodium 136, Potassium 3.8, Chloride 103, Carbon Dioxide 27.0, Anion Gap 6, BUN 38 H, Creatinine 1.39 H, Estim Creat Clear Calc 34.71, Est GFR (MDRD)Af Amer 49 L, Est GFR (MDRD) Non-Af 41 L, BUN/Creatinine Ratio 27.3 H, Glucose 150 H, Calcium 8.8 Micro: Microbiology 06/23/23 08:35 Blood Culture (Wb) - Anticubital Left Blood Culture - Final No growth in 5 days. 06/23/23 07:57 Blood Culture (Wb) - Anticubital Left Blood Culture - Final No growth in 5 days. 06/21/23 15:20 Blood Culture (Wb) - Left Wrist Blood Culture - Final No growth in 5 days. 06/24/23 12:15 Blood Culture (Wb) - Anticubital Left Blood Culture - Preliminary No growth in 48 hours. 06/21/23 13:18 Wound Drainage - Aerobic & Anaerobic Swabs Gram Stain - Final 06/21/23 13:18 Wound Drainage - Aerobic & Anaerobic Swabs Wound Culture - Final Staphylococcus aureus 06/21/23 13:18 Wound Drainage - Aerobic & Anaerobic Swabs Anaerobic Culture - Final No anaerobic bacteria isolated. 06/21/23 08:20 Fluid - Synovial (joint) Gram Stain - Final 06/21/23 08:20 Fluid - Synovial (joint) Body Fluid Culture - Final Staphylococcus aureus Streptococcus mitis 06/21/23 08:20 Fluid - Synovial (joint) Anaerobic Culture - Final No anaerobic bacteria isolated. 06/21/23 16:30 Blood Culture (Wb) - Right Hand Bacteria Detection (PCR) - Final Staphylococcus aureus 06/21/23 16:30 Blood Culture (Wb) - Right Hand Blood Culture - Final Staphylococcus aureus 06/20/23 23:10 Urine, Clean Catch Urine Culture - Final Mixed Gram Pos & Gram Neg Org Rhythm Strip Rhythm Strip: Sinus Rhythm Rate: 75 Ectopy: None Physical Exam Const alert, oriented x3, no apparent distress and well nourished General Appearance: cooperative HEENT normocephalic, head/scalp atraumatic, moist oral mucous membranes and oropharynxnormal Eyes PERRL and EOMs intact bilaterally Neck no lymphadenopathy and supple Lymph Lymphatic: no lymphadenopathy noted Resp normal respiratory effort, normal air movement, no retractions, no use of accessory muscles and clear to auscultation bilaterally Auscultation: Negative for rales, rhonchi or wheezes Cardio regular rate, regular rhythm, S1 normal heart sound, S2 normal heart sound, no murmurs, no rub, no gallops and no clicks GI normal to inspection, nondistended, normoactive bowel sounds, soft to palpation,non-tender and non-distended Extremity normal capillary refill and no clubbing, cyanosis or edema; Negative for full ROM Extremity Narrative: intact dressing over the left knee at I&D site General Extremity: no tenderness to palpation of joints or extremities Skin General Skin Exam: no breakdown Neuro oriented x3, CN's II-XII intact bilaterally, moves all extremities, no focal motor deficits and no sensory deficits noted Neuro Narrative: Decreased ability to move left knee due to pain Speech: speech normal Motor Exam: general weakness Psych thought process normal, cooperative and affect normal Appearance: appropriate Assessment & Plan Assessment/Plan (1) MSSA bacteremia: (2) Septic joint of left knee joint: PLAN: Plan #Septic arthritis of left knee due to MSSA * today is POD 6 of I&D * on IV cefazolin * ID and orthopedics on board * PT/OT on board * fall precautions * on PO tylenol and PO oxycodone prn * #MSSA bacteremia * blood cultures grew MSSA * repeat blood cultures negative * on IV cefazolin * ID on board. 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 Last A1c on 06/21/2023 was 7.4. Insulin sliding scale. Accu- Cheks ACHS. * On Lantus 18 units daily. * #Persistent A-fib: On amiodarone and metoprolol. On Eliquis. #CKD stage IIIb: Creatinine at baseline. Will monitor. #Hypertension: On lisinopril. IV hydralazine as needed. #Hyperlipidemia: On statin #DVT prophylaxis: On Eliquis. Disposition: Awaiting placement. Charges/Coding Visit Charges Inpatient E&M: 30947 Subs Hosp L2 06/28/232025 <Electronically signed by Shayla Kennedy MD> Shayla Kennedy MD Cosigner Signature (if applicable): CC: ~ Signed [facility] Work Phone: 1(344) 555-657810-17-2023 Progress note Author Anatoliy Moreno [facility] June 28, 2023 2:51pm Note Date/Time June 28, 2023 2 :51pm [facility] Medical Records Department [facility] [place] [address] Progress Note - Orthopedic 06/28/23 1450 MR#: [id number] Acct: [id number] Name: CAMILLE GARDINER Rep #:[id number] : 1960 63 From: Anatoliy Moreno MD PCP: Dr. Nando Esposito MD Status: ADM IN Location: [place] [id number] Subjective Subjective Up to washroom today more independent Objective Data Objective Data Vital Signs: Vital Signs Temp Pulse Resp BP Pulse Ox O2 Del Method O2 Flow Rate 98.2 F 77 16 123/66 H 98 Room Air 2 06/28/23 08:34 06/28/23 08:50 06/28/23 08:34 06/28/23 08:50 06/28/23 08:34 06/28/23 08:37 06/21/23 14:00 Oxygen Flow Rate (L/min) 2 Oxygen Delivery Method Room Air Weight: 211 lb 3.245 oz Body Mass Index (BMI) 37.4 Intake & Output: Intake and Output for Last 24 Hours 06/26/23 06/27/23 06/28/23 23:59 23:59 23:59 Intake Total 330 / 330 570 / 870 1090 / 1090 Output Total 2800 / 2800 1150 / 1650 1500 / 1500 Balance -2470 / -2470 -580 / -780 -410 / -410 Lab / Micro Data Attestation: I reviewed the patient's lab results. 06/28/23 05:47 06/28/23 05:47 Labs: Laboratory Results - last 24 hr 06/26/23 05:54: Diff Path Review Reviewed 06/27/23 05:15: Diff Path Review Reviewed 06/28/23 05:47: WBC 13.1 H, RBC 3.75 L, Hgb 11.3 L, Hct 36.5 L, MCV 97.3, MCH 30.1, MCHC 31.0 L, RDW Std Deviation 43.3, RDW Coeff of Patricia 12.2, Plt Count 345,MPV 9.0, Immature Gran % (Auto) 1.500 H, Neut % (Auto) 63.0, Lymph % (Auto) 20.4, [place]au[place] % (Auto) 12.3 H, Eos % (Auto) 2.3, Baso % (Auto) 0.5, Absolute Neuts (auto) 8.2 H, Absolute Lymphs (auto) 2.67, Nucleated RBC % 0, Diff Path Review May foll, Sodium 136, Potassium 3.8, Chloride 103, Carbon Dioxide 27.0, Anion Gap 6, BUN 38 H, Creatinine 1.39 H, Estim Creat Clear Calc 34.71, Est GFR (MDRD)Af Amer 49 L, Est GFR (MDRD) Non-Af 41 L, BUN/Creatinine Ratio 27.3 H, Glucose 150 H, Calcium 8.8 Micro: Microbiology 06/23/23 08:35 Blood Culture (Wb) - Anticubital Left Blood Culture - Final No growth in 5 days. 06/23/23 07:57 Blood Culture (Wb) - Anticubital Left Blood Culture - Final No growth in 5 days. 06/21/23 15:20 Blood Culture (Wb) - Left Wrist Blood Culture - Final No growth in 5 days. 06/24/23 12:15 Blood Culture (Wb) - Anticubital Left Blood Culture - Preliminary No growth in 48 hours. 06/21/23 13:18 Wound Drainage - Aerobic & Anaerobic Swabs Gram Stain - Final 06/21/23 13:18 Wound Drainage - Aerobic & Anaerobic Swabs Wound Culture - Final Staphylococcus aureus 06/21/23 13:18 Wound Drainage - Aerobic & Anaerobic Swabs Anaerobic Culture - Final No anaerobic bacteria isolated. 06/21/23 08:20 Fluid - Synovial (joint) Gram Stain - Final 06/21/23 08:20 Fluid - Synovial (joint) Body Fluid Culture - Final Staphylococcus aureus Streptococcus mitis 06/21/23 08:20 Fluid - Synovial (joint) Anaerobic Culture - Final No anaerobic bacteria isolated. 06/21/23 16:30 Blood Culture (Wb) - Right Hand Bacteria Detection (PCR) - Final Staphylococcus aureus 06/21/23 16:30 Blood Culture (Wb) - Right Hand Blood Culture - Final Staphylococcus aureus 06/20/23 23:10 Urine, Clean Catch Urine Culture - Final Mixed Gram Pos & Gram Neg Org Rhythm Strip Rhythm Strip: Sinus Rhythm Rate: 75 Ectopy: None Physical Exam Extremity Extremity Narrative: no change to exam Assessment & Plan Assessment/Plan (1) MSSA bacteremia: PLAN: CCM. Pending picc line. FU 2 weeks in office. (2) Septic joint of left knee joint: 06/28/23 1451 <Electronically signed by Anatoliy Moreno MD> Cosigner Signature (if applicable): CC: ~ Signed [facility] Work Phone: 1(888) 836-246010-17-2023 Progress note Author Anatoliy Moreno [facility] June 28, 2023 8:06am Note Date/Time June 28, 2023 8 :06am [facility] Medical Records Department [address] [place] [address] Progress Note - Orthopedic 06/28/23 0804 MR#: [id number] Acct: [id number] Name: CAMILLE GARDINER Rep #:[id number] : 1960 63 From: Anatoliy Moreno MD PCP: Dr. Nando Esposito MD Status: ADM IN Location: [place] [address]- 1 Subjective Subjective POD many L knee I and D for septic joint. Doing a bit better, but feels like will need rehab services. (seen yesterday) Objective Data Objective Data Vital Signs: Vital Signs Temp Pulse Resp BP Pulse Ox O2 Del Method O2 Flow Rate 97.8 F 66 16 133/68 H 96 Room Air 2 06/28/23 04:09 06/28/23 04:09 06/28/23 04:09 06/28/23 04:09 06/28/23 04:09 06/28/23 04:10 06/21/23 14:00 Oxygen Flow Rate (L/min) 2 Oxygen Delivery Method Room Air Weight: 211 lb 3.245 oz Body Mass Index (BMI) 37.4 Intake & Output: Intake and Output for Last 24 Hours 06/26/23 06/27/23 06/28/23 23:59 23:59 23:59 Intake Total 330 / 330 570 / 870 610 / 610 Output Total 2800 / 2800 1150 / 1650 1200 / 1200 Balance -2470 / -2470 -580 / -780 -590 / -590 Lab / Micro Data Attestation: I reviewed the patient's lab results. 06/28/23 05:47 06/28/23 05:47 Labs: Laboratory Results - last 24 hr 06/28/23 05:47: WBC 13.1 H, RBC 3.75 L, Hgb 11.3 L, Hct 36.5 L, MCV 97.3, MCH 30.1, MCHC 31.0 L, RDW Std Deviation 43.3, RDW Coeff of Patricia 12.2, Plt Count 345,MPV 9.0, Immature Gran % (Auto) 1.500 H, Neut % (Auto) 63.0, Lymph % (Auto) 20.4, [place]aui % (Auto) 12.3 H, Eos % (Auto) 2.3, Baso % (Auto) 0.5, Absolute Neuts (auto) 8.2 H, Absolute Lymphs (auto) 2.67, Nucleated RBC % 0, Diff Path Review May , Sodium 136, Potassium 3.8, Chloride 103, Carbon Dioxide 27.0, Anion Gap 6, BUN 38 H, Creatinine 1.39 H, Estim Creat Clear Calc 34.71, Est GFR (MDRD)Af Amer 49 L, Est GFR (MDRD) Non-Af 41 L, BUN/Creatinine Ratio 27.3 H, Glucose 150 H, Calcium 8.8 Micro: Microbiology 06/21/23 15:20 Blood Culture (Wb) - Left Wrist Blood Culture - Final No growth in 5 days. 06/24/23 12:15 Blood Culture (Wb) - Anticubital Left Blood Culture - Preliminary No growth in 48 hours. 06/21/23 13:18 Wound Drainage - Aerobic & Anaerobic Swabs Gram Stain - Final 06/21/23 13:18 Wound Drainage - Aerobic & Anaerobic Swabs Wound Culture - Final Staphylococcus aureus 06/21/23 13:18 Wound Drainage - Aerobic & Anaerobic Swabs Anaerobic Culture - Final No anaerobic bacteria isolated. 06/21/23 08:20 Fluid - Synovial (joint) Gram Stain - Final 06/21/23 08:20 Fluid - Synovial (joint) Body Fluid Culture - Final Staphylococcus aureus Streptococcus mitis 06/21/23 08:20 Fluid - Synovial (joint) Anaerobic Culture - Final No anaerobic bacteria isolated. 06/23/23 08:35 Blood Culture (Wb) - Anticubital Left Blood Culture - Preliminary No growth in 48 hours. 06/23/23 07:57 Blood Culture (Wb) - Anticubital Left Blood Culture - Preliminary No growth in 48 hours. 06/21/23 16:30 Blood Culture (Wb) - Right Hand Bacteria Detection (PCR) - Final Staphylococcus aureus 06/21/23 16:30 Blood Culture (Wb) - Right Hand Blood Culture - Final Staphylococcus aureus 06/20/23 23:10 Urine, Clean Catch Urine Culture - Final Mixed Gram Pos & Gram Neg Org Rhythm Strip Rhythm Strip: Sinus Rhythm Rate: 75 Ectopy: None Physical Exam Const alert and no apparent distress General Appearance: cooperative and well developed Extremity normal capillary refill Extremity Narrative: knee appears less swollen, portals normal, rom 0-90, nvi General Extremity: Negative for atrophy or calf tenderness Assessment & Plan Assessment/Plan (1) Septic joint of left knee joint: PLAN: CCM, will follow, abx per ID (pending PICC line). 06/28/23 0806 <Electronically signed by Anatoliy Moreno MD> Cosigner Signature (if applicable): CC: ~ Signed [facility] Work Phone: 1(192) 134-531110-16-2023 Progress note Author Comfort Cheung [facility] June 27, 2023 5:01pm Note Date/Time June 27, 2023 5 :01pm [facility] Medical Records Department [address] [place] [address] Progress Note - Infect Disease 06/27/231699 MR#: [id number] Acct: [id number] Name: CAMILLE GARDINER Rep #:[id number] : 1960 63 From: Comfort yip MD PCP: Dr. Nando Esposito MD Status: ADM IN Location: [place] [address] Physical Exam Narrative Feeling ok, leg sore, no fever, no n/v/d. Const alert and no apparent distress General Appearance: cooperative Resp normal air movement and clear to auscultation bilaterally Cardio regular rate and regular rhythm GI soft to palpation, non-tender and non-distended Skin Skin Narrative: LLE wrapped ID ID: Route of nutrition/ use of supplements: [] Nutritional Intake: [] IV Site: [] Castaneda Catheter: [] Assessment & Plan Assessment/Plan (1) Septic joint of left knee joint: PLAN: Aspiration and then OR 06/21/[address] Moreno. From OR sample, no crystals seen, wbc 219k, 92% neutrophils, cx showing gram pos. Cx with MSSA, now bcx also with mssa per pcr. Cont cefazolin. TTE showed no veg and repeat bcx cleared 06/23/23. Will order picc, 4 weeks iv cefazolin, stop date 07/21/23 with weekly labs, ID followup in 2 weeks. Will follow (2) MSSA bacteremia: 06/27/231700 <Electronically signed by Comfort Cheung MD> Cosigner Signature (if applicable): CC: ~ Signed [facility] Work Phone: 1(431) 344-115010-16-2023 Progress note Author Shayla Kennedy [facility] June 27, 2023 3:39pm Note Date/Time June 27, 2023 3 :39pm [facility] Medical Records Department [address] [place] [address] Progress Note 06/27/23 1532 MR#: [id number] Acct: [id number] Name: CAMILLE GARDINER Rep #:[id number] : 1960 63 From: Shayla Kennedy MD PCP: Dr. Nando Esposito MD Status: ADM IN Location: [place] [address] Subjective Subjective Patient seen and examined. She had no active complaints. Pain in her knee was fairly well controlled. Review of systems was otherwise negative. She is awaiting placement Objective Data Objective Data Vital Signs: Vital Signs Temp Pulse Resp BP Pulse Ox O2 Del Method O2 Flow Rate 98.1 F 74 16 135/59 H 100 Room Air 2 06/27/23 15:06/27/23 15:23 06/27/23 15:23 06/27/23 15:23 06/27/23 15:23 06/27/23 15:23 06/21/23 14:00 Oxygen Flow Rate (L/min) 2 Oxygen Delivery Method Room Air Weight: 211 lb 3.245 oz Body Mass Index (BMI) 37.4 Intake & Output: Intake and Output for Last 24 Hours 06/25/23 06/26/23 06/27/23 23:59 23:59 23:59 Intake Total 810 / 810 330 / 330 350 / 350 Output Total 4500 / 4500 2800 / 2800 800 / 800 Balance -3690 / -3690 -2470 / -2470 -450 / -450 Lab / Micro Data 06/27/23 05:15 06/27/23 05:15 Labs: Laboratory Results - last 24 hr 06/26/23 05:54: Diff Path Review January06/27/23 05:15: WBC 14.9 H, RBC 3.81 L, Hgb 11.5 L, Hct 36.9 L, MCV 96.9, MCH 30.2, MCHC 31.2 L, RDW Std Deviation 44.2 H, RDW Coeff of Patricia 12.4, Plt Count 337, MPV 9.0, Immature Gran % (Auto) 1.100 H, Neut % (Auto) 72.1 H, Lymph % (Auto) 14.7 L, Maui % (Auto) 11.0 H, Eos % (Auto) 0.8, Baso % (Auto) 0.3, Absolute Neuts (auto) 10.8 H, Absolute Lymphs (auto) 2.20, Nucleated RBC % 0, Diff Path Review January, Sodium 135 L, Potassium 3.7, Chloride 101, Carbon Dioxide 27.0, Anion Gap 7, BUN 32 H, Creatinine 1.26 H, Estim Creat Clear Calc 38.29, Est GFR (MDRD) Af Amer 55 L, Est GFR (MDRD) Non-Af 46 L, BUN/Creatinine Ratio 25.4 H, Glucose 195 H, Calcium 8.8 Micro: Microbiology 06/21/23 15:20 Blood Culture (Wb) - Left Wrist Blood Culture - Final No growth in 5 days. 06/24/23 12:15 Blood Culture (Wb) - Anticubital Left Blood Culture - Preliminary No growth in 48 hours. 06/21/23 13:18 Wound Drainage - Aerobic & Anaerobic Swabs Gram Stain - Final 06/21/23 13:18 Wound Drainage - Aerobic & Anaerobic Swabs Wound Culture - Final Staphylococcus aureus 06/21/23 13:18 Wound Drainage - Aerobic & Anaerobic Swabs Anaerobic Culture - Final No anaerobic bacteria isolated. 06/21/23 08:20 Fluid - Synovial (joint) Gram Stain - Final 06/21/23 08:20 Fluid - Synovial (joint) Body Fluid Culture - Final Staphylococcus aureus Streptococcus mitis 06/21/23 08:20 Fluid - Synovial (joint) Anaerobic Culture - Final No anaerobic bacteria isolated. 06/23/23 08:35 Blood Culture (Wb) - Anticubital Left Blood Culture - Preliminary No growth in 48 hours. 06/23/23 07:57 Blood Culture (Wb) - Anticubital Left Blood Culture - Preliminary No growth in 48 hours. 06/21/23 16:30 Blood Culture (Wb) - Right Hand Bacteria Detection (PCR) - Final Staphylococcus aureus 06/21/23 16:30 Blood Culture (Wb) - Right Hand Blood Culture - Final Staphylococcus aureus 06/20/23 23:10 Urine, Clean Catch Urine Culture - Final Mixed Gram Pos & Gram Neg Org Rhythm Strip Rhythm Strip: Sinus Rhythm Rate: 75 Ectopy: None Physical Exam Const alert, oriented x3 and no apparent distress General Appearance: cooperative HEENT normocephalic, head/scalp atraumatic, moist oral mucous membranes and oropharynxnormal Eyes PERRL and EOMs intact bilaterally Neck no lymphadenopathy and supple Lymph Lymphatic: no lymphadenopathy noted Resp normal respiratory effort, normal air movement and clear to auscultation bilaterally Cardio regular rate, regular rhythm, S1 normal heart sound, S2 normal heart sound and no murmurs GI normal to inspection, nondistended, normoactive bowel sounds, soft to palpation,non-tender and non-distended Extremity normal capillary refill and no clubbing, cyanosis or edema Extremity Narrative: intact dressing over the left knee at I&D site General Extremity: no tenderness to palpation of joints or extremities Skin General Skin Exam: no breakdown Neuro CN's II-XII intact bilaterally, no focal motor deficits and no sensory deficits noted Motor Exam: strength 5/5 throughout and general weakness Psych thought process normal, cooperative and affect normal Appearance: appropriate Assessment & Plan Assessment/Plan (1) MSSA bacteremia: (2) Septic joint of left knee joint: PLAN: Plan #Septic arthritis of left knee due to MSSA * today is POD 5 of I7D * on IV cefazolin * ID and orthopedics on board * PT/OT on board * fall precautions * on PO tylenol and PO oxycodone prn * #MSSA bacteremia * blood cultures grew MSSA * repeat blood cultures negative * on IV cefazolin * ID on board. 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 Last A1c on 06/21/2023 was 7.4. Insulin sliding scale. Accu-Ch eks ACHS. * On Lantus 18 units daily. * #Persistent A-fib: On amiodarone and metoprolol. On Eliquis. #CKD stage IIIb: Creatinine at baseline. Will monitor. #Hypertension: On lisinopril. IV hydralazine as needed. #Hyperlipidemia: On statin #DVT prophylaxis: On Eliquis. Disposition: Awaiting placement. Charges/Coding Visit Charges Inpatient E&M: 39712 Subs Hosp L2 06/27/23 4436 <Electronically signed by Shayla Kennedy MD> Shayla Kennedy MD Cosigner Signature (if applicable): CC: ~ Signed [facility] Work Phone: 1(486) 138-909610-15-2023 Progress note Author Yajaira Bryan [facility] June 26, 2023 11:26am Note Date/Time June 26, 2023 1 1:26am [facility] Medical Records Department [address] [place] [address] Progress Note - Hospitalist 06/26/23 1121 MR#: [id number] Acct: [id number] Name: CAMILLE GARDINER Rep #:[id number] : 1960 63 From: Yajaira Bryan DO PCP: Dr. Nando Esposito MD Status: ADM IN Location: [place] [address]- Reason for Visit Reason for Visit: Left knee pain and swelling/inability to ambulate Subjective Subjective Patient states no issues overnight. She did stated she try to push herself a little yesterday and was sore. The ice seems to help considerably. She feels she will probably need to go for some rehab prior to going home. I did discuss the case management would be in tomorrow and we can start that process if that needs to happen. Blood cultures are negative at 48 hours so I did discuss with her also that we will have her PICC line placed either today or tomorrow. She voiced understanding. Objective Data Objective Data Vital Signs: Vital Signs Temp Pulse Resp BP Pulse Ox O2 Del Method O2 Flow Rate 97.4 F L 82 16 139/63 H 99 Room Air 2 06/26/23 10:06 06/26/23 10:16 06/26/23 10:06 06/26/23 10:16 06/26/23 10:06 06/26/23 10:06 06/21/23 14:00 Oxygen Flow Rate (L/min) 2 Oxygen Delivery Method Room Air Weight: 95.8 kg Body Mass Index (BMI) 37.4 Intake & Output: Intake and Output for Last 24 Hours 06/24/23 06/25/23 06/26/23 23:59 23:59 23:59 Intake Total 2060.75 / 2060.75 810 / 810 110 / 110 Output Total 3850 / 3850 4500 / 4500 1200 / 1200 Balance -1789.25 / -1789.25 -3690 / -3690 -1090 / -1090 Lab / Micro Data 06/26/23 05:54 06/26/23 05:54 Labs: Laboratory Results - last 24 hr 06/26/23 05:54: WBC 12.8 H, RBC 3.96 L, Hgb 12.2, Hct 38.3, MCV 96.7, MCH 30.8, MCHC 31.9 L, RDW Std Deviation 43.5, RDW Coeff of Patricia 12.2, Plt Count 318, MPV 9.1, Immature Gran % (Auto) 1.100 H, Neut % (Auto) 67.6, Lymph % (Auto) 16.0 L, [place]au[place] % (Auto) 13.5 H, Eos % (Auto) 1.6, Baso % (Auto) 0.2, Absolute Neuts (auto)8.7 H, Absolute Lymphs (auto) 2.05, Nucleated RBC % 0, Differential Comment SCANNED, Sodium 137, Potassium 4.0, Chloride 102, Carbon Dioxide 26.0, Anion Gap9, BUN 32 H, Creatinine 1.30 H, Estim Creat Clear Calc 37.12, Est GFR (MDRD) Af Amer 53 L, Est GFR (MDRD) Non-Af 44 L, BUN/Creatinine Ratio 24.6 H, Glucose 200 H, Calcium 9.0 Micro: Microbiology 06/24/23 12:15 Blood Culture (Wb) - Anticubital Left Blood Culture - Preliminary No growth in 48 hours. 06/21/23 13:18 Wound Drainage - Aerobic & Anaerobic Swabs Gram Stain - Final 06/21/23 13:18 Wound Drainage - Aerobic & Anaerobic Swabs Wound Culture - Final Staphylococcus aureus 06/21/23 13:18 Wound Drainage - Aerobic & Anaerobic Swabs Anaerobic Culture - Final No anaerobic bacteria isolated. 06/21/23 08:20 Fluid - Synovial (joint) Gram Stain - Final 06/21/23 08:20 Fluid - Synovial (joint) Body Fluid Culture - Final Staphylococcus aureus Streptococcus mitis 06/21/23 08:20 Fluid - Synovial (joint) Anaerobic Culture - Final No anaerobic bacteria isolated. 06/23/23 08:35 Blood Culture (Wb) - Anticubital Left Blood Culture - Preliminary No growth in 48 hours. 06/23/23 07:57 Blood Culture (Wb) - Anticubital Left Blood Culture - Preliminary No growth in 48 hours. 06/21/23 16:30 Blood Culture (Wb) - Right Hand Bacteria Detection (PCR) - Final Staphylococcus aureus 06/21/23 16:30 Blood Culture (Wb) - Right Hand Blood Culture - Final Staphylococcus aureus 06/21/23 15:20 Blood Culture (Wb) - Left Wrist Blood Culture - Preliminary No growth in 48 hours. 06/20/23 23:10 Urine, Clean Catch Urine Culture - Final Mixed Gram Pos & Gram Neg Org Rhythm Strip Rhythm Strip: Sinus Rhythm Rate: 75 Ectopy: None Physical Exam Const alert, oriented x3, no apparent distress and well nourished Constitutional Narrative: Obese, upper middle-aged, white female, working with physical therapy, appears comfortable currently and nontoxic, ambulates gingerly with a walker HEENT head/scalp atraumatic and moist oral mucous membranes HEENT Narrative: Mallampati 2-3, no thrush Head and Scalp: normocephalic Resp normal respiratory effort, no retractions, no use of accessory muscles and clearto auscultation bilaterally Auscultation: Negative for rales, rhonchi or wheezes Cardio S1 normal heart sound, S2 normal heart sound, no murmurs, no rub, no gallops andno clicks Cardio Narrative: Rate controlled irregular irregular rhythm GI normal to inspection, nondistended, normoactive bowel sounds, soft to palpation and non-tender Extremity no clubbing, cyanosis or edema; Negative for full ROM Extremity Narrative: Left knee with mild swelling, movement seems to be better but still painful- patient tends to guard, ambulates with min assist to contact-guard assist with [employer] today Neuro oriented x3, moves all extremities and no focal motor deficits Neuro Narrative: Decreased ability to move left knee due to pain Speech: speech normal Psych affect normal Psych Narrative: Very pleasant, interacts appropriately Assessment & Plan Assessment/Plan (1) Septic joint of left knee joint: (2) Chest pain: QUALIFIERS: Chest pain type: unspecified Qualified Code(s): R07.9- Chest pain, unspecified (3) Leukocytosis: (4) Hyperkalemia: PLAN: Plan Septic joint left knee secondary to MSSA -Postop day 5 I&D of septic joint left knee -Cefazolin every 8 hours per ID -Continue as needed pain medication -Continue scheduled Tylenol -As needed medication for bowel regimen -Weightbearing as tolerated in knee range of motion -PT/OT following -After observing therapy services today with the patient I do anticipate the patient would benefit from a rehab stay after discharge to push range of motion and to help her with mobility/ADLs/IADLs MSSA bacteremia -Echocardiogram was unremarkable for any valvular vegetations -Repeat blood cultures were drawn 06/23/2023 and are negative at 48 hours -PICC line ordered -Will need IV antibiotics at discharge Leukocytosis -Continues to trend down--> still slightly elevated but overall stable -Continue antibiotics DM-2 -Blood sugars appear to be trending down with improved infection control and nowthe acute stress from surgery is over -Fasting is 200 this morning -We will continue to monitor -At baseline patient appears to be well controlled as hemoglobin A1c was 7.4 on 06/21/2023 -Patient is on Farxiga at baseline we will substitute Jardiance while hospitalized -Continue Lantus but will increase to 22 units a day for improved glycemic control -Humalog 20 units with meals -SSI high-dose -Accu-Cheks as ordered Persistent atrial fibrillation -Continue home amiodarone -Continue home apixaban -Continue home metoprolol CKD stage IIIb -Baseline serum creatinine appears to be between 1.4 and 1.65 -Renal function is stable and at her baseline range and currently 1.30 -Suspect baseline renal dysfunction is related to diabetic nephropathy Hypertension -Continue home metoprolol -I added lisinopril yesterday as it was not documented as an allergy however when we went to give it to the patient she reported this was discontinued previously for cough -Start losartan 25 mg daily yesterday and blood pressures do appear to be improved -Continue to trend Hyperlipidemia -Continue home atorvastatin Insomnia -Continue home trazodone Obesity -BMI 37.4 -Would benefit from weight loss -Complicates treatment, prognosis, outcomes DVT prophylaxis -Continue home Eliquis CODE STATUS -Full code Charges/Coding Visit Charges Inpatient E&M: 59456 Subs Hosp L2 06/26/23 1126 <Electronically signed by Yajaira Bryan DO> Cosigner Signature (if applicable): CC: ~ Signed [facility] Work Phone: 1(757) 827-237310-14-2023 Progress note Author Yajaira Bryan [facility] June 25, 2023 11:20am Note Date/Time June 25, 2023 1 1:20am [facility] Medical Records Department [address] [place] [address] [place] [address] Progress Note - Hospitalist 06/25/23 1115 MR#: [id number] Acct: [id number] Name: CAMILLE GARDINER Rep #:[id number] : 1960 63 From: Yajaira Bryan DO PCP: Dr. Nando Esposito MD Status: ADM IN Location: [place] [address] Reason for Visit Reason for Visit: Left knee pain, swelling, inability ambulate Subjective Subjective Patient reports she had a good night overall. States that she feels like she isslowly doing more with therapy. No significant issues or complaints. Objective Data Objective Data Vital Signs: Vital Signs Temp Pulse Resp BP Pulse Ox O2 Del Method O2 Flow Rate 97.7 F L 74 16 155/68 H 98 Room Air 2 06/25/23 10:30 06/25/23 10:39 06/25/23 10:30 06/25/23 10:39 06/25/23 10:30 06/25/23 10:30 06/21/23 14:00 Oxygen Flow Rate (L/min) 2 Oxygen Delivery Method Room Air Weight: 95.8 kg Body Mass Index (BMI) 37.4 Intake & Output: Intake and Output for Last 24 Hours 06/23/23 06/24/23 06/25/23 23:59 23:59 23:59 Intake Total 1520 / 1520 2060.75 / 2060.75 110 / 110 Output Total 1250 / 2550 3850 / 3850 1100 / 1100 Balance 270 / -1030 -1789.25 / -1789.25 -990 / -990 Lab / Micro Data 06/25/23 08:28 06/25/23 08:28 Labs: Laboratory Results - last 24 hr 06/24/23 06:26: Diff Path Review Reviewed 06/25/23 08:28: WBC 11.1 H, RBC 3.82 L, Hgb 11.4 L, Hct 37.4, MCV 97.9, MCH 29.8, MCHC 30.5 L, RDW Std Deviation 44.3 H, RDW Coeff of Patricia 12.4, Plt Count 314, MPV 9.3, Immature Gran % (Auto) 0.900, Neut % (Auto) 66.6, Lymph % (Auto) 17.7 L, Maui % (Auto) 12.2 H, Eos % (Auto) 2.3, Baso % (Auto) 0.3, Absolute Neuts (auto) 7.4, Absolute Lymphs (auto) 1.96, Nucleated RBC % 0, Sodium 137, Potassium 3.7, Chloride 103, Carbon Dioxide 28.0, Anion Gap 6, BUN 35 H, Creatinine 1.29 H, Estim Creat Clear Calc 37.40, Est GFR (MDRD) Af Amer 54 L, Est GFR (MDRD) Non-Af 45 L, BUN/Creatinine Ratio 27.1 H, Glucose 153 H, Calcium 8.6 Micro: Microbiology 06/21/23 13:18 Wound Drainage - Aerobic & Anaerobic Swabs Gram Stain - Final 06/21/23 13:18 Wound Drainage - Aerobic & Anaerobic Swabs Wound Culture - Final Staphylococcus aureus 06/21/23 13:18 Wound Drainage - Aerobic & Anaerobic Swabs Anaerobic Culture - Preliminary 06/21/23 08:20 Fluid - Synovial (joint) Gram Stain - Final 06/21/23 08:20 Fluid - Synovial (joint) Body Fluid Culture - Preliminary Staphylococcus aureus Alpha Hemolytic Streptococcus 06/21/23 08:20 Fluid - Synovial (joint) Anaerobic Culture - Final No anaerobic bacteria isolated. 06/21/23 16:30 Blood Culture (Wb) - Right Hand Bacteria Detection (PCR) - Final Staphylococcus aureus 06/21/23 16:30 Blood Culture (Wb) - Right Hand Blood Culture - Final Staphylococcus aureus 06/21/23 15:20 Blood Culture (Wb) - Left Wrist Blood Culture - Preliminary No growth in 48 hours. 06/20/23 23:10 Urine, Clean Catch Urine Culture - Final Mixed Gram Pos & Gram Neg Org Rhythm Strip Rhythm Strip: Sinus Rhythm Rate: 75 Ectopy: None Physical Exam Const alert, oriented x3, no apparent distress and well nourished Constitutional Narrative: Obese, upper middle-aged, white female, sitting up in bed watching television patient, appears comfortable currently and nontoxic HEENT head/scalp atraumatic and moist oral mucous membranes HEENT Narrative: Mallampati 2-3, no thrush Head and Scalp: normocephalic Resp normal respiratory effort, no retractions, no use of accessory muscles and clearto auscultation bilaterally Auscultation: Negative for rales, rhonchi or wheezes Cardio S1 normal heart sound, S2 normal heart sound, no murmurs, no rub, no gallops andno clicks Cardio Narrative: Rate controlled irregular irregular rhythm GI normal to inspection, nondistended, normoactive bowel sounds, soft to palpation and non-tender Extremity no clubbing, cyanosis or edema; Negative for full ROM Extremity Narrative: Left knee with mild swelling, movement seems to be better but still painful Neuro oriented x3, moves all extremities and no focal motor deficits Speech: speech normal Psych affect normal Psych Narrative: Very pleasant, interacts appropriately Assessment & Plan Assessment/Plan (1) Septic joint of left knee joint: (2) Chest pain: QUALIFIERS: Chest pain type: unspecified Qualified Code(s): R07.9- Chest pain, unspecified (3) Leukocytosis: (4) Hyperkalemia: PLAN: Plan Septic joint left knee secondary to MSSA -Postop day 4 I&D of septic joint left knee -Cefazolin every 8 hours per ID -Continue as needed pain medication -Continue scheduled Tylenol -As needed medication for bowel regimen -Weightbearing as tolerated in knee range of motion -PT/OT following -Patient may need placement or at least home therapy at discharge we will continue to monitor progress with PT and OT if patient needs placed would [facility] facility as she is highly functional at baseline and also has history of stroke MSSA bacteremia -Echocardiogram was unremarkable for any valvular vegetations -Repeat blood cultures were drawn 06/23/2023 and are pending -Once I have negative cultures at 48 hours I will have PICC placed for outpatient antibiotics -If patient does not clear will need ROBERTO -Will need IV antibiotics at discharge Leukocytosis -Continues to trend down--> 11.1 -Continue antibiotics DM-2 -Blood sugars appear to be trending down with improved infection control and nowthe acute stress from surgery is over -Fasting is 153 this morning -We will continue to monitor -At baseline patient appears to be well controlled as hemoglobin A1c was 7.4 on 06/21/2023 -Patient is on Farxiga at baseline we will substitute Jardiance while hospitalized -Continue Lantus 18 units -Humalog 20 units with meals was reinitiated -SSI high-dose -Accu-Cheks as ordered Persistent atrial fibrillation -Continue home amiodarone -Continue home apixaban -Continue home metoprolol CKD stage IIIb -Baseline serum creatinine appears to be between 1.4 and 1.65 -Renal function is stable and at her baseline range and currently 1.29 -Suspect baseline renal dysfunction is related to diabetic nephropathy Hypertension -Can toe wall -Blood pressures have consistently been elevated and patient is not on an YOEL inhibitor at baseline -We will add low-dose lisinopril 10 mg and continue to monitor -Lisinopril will be beneficial for her for blood pressure as well as for renal protection with her diabetes history -No documented allergy Hyperlipidemia -Continue home atorvastatin Insomnia -Continue home trazodone Obesity -BMI 37.4 -Would benefit from weight loss -Complicates treatment, prognosis, outcomes DVT prophylaxis -Continue home Eliquis CODE STATUS -Full code Charges/Coding Visit Charges Inpatient E&M: 13239 Subs Hosp L2 06/25/23 1120 <Electronically signed by Yajaira Bryan DO> Cosigner Signature (if applicable): CC: ~ Signed [facility] Work Phone: 1(470) 612-838810-13-2023 Progress note Author Anatoliy Moreno [facility] 2023 9:02pm Note Date/Time 2023 9 :02pm [facility] Medical Records Department [address] [place] [address] Progress Note - Orthopedic 06/24/23 2100 MR#: [id number] Acct: [id number] Name: CAMILLE GARDINER Rep #:[id number] : 1960 63 From: Anatoliy Moreno MD PCP: Dr. Nando Esposito MD Status: ADM IN Location: [place] [address] Subjective Subjective Doing well, post op left knee I and D for septic joint after cortisone injection. Feeling a bit better. Saw the patient yesterday and today. Objective Data Objective Data Vital Signs: Vital Signs Temp Pulse Resp BP Pulse Ox O2 Del Method O2 Flow Rate 97.8 F 77 16 129/64 H 98 Room Air 2 06/24/23 17:34 06/24/23 17:34 06/24/23 17:34 06/24/23 17:34 06/24/23 17:34 06/24/23 17:34 06/21/23 14:00 Oxygen Flow Rate (L/min) 2 Oxygen Delivery Method Room Air Weight: 211 lb 3.245 oz Body Mass Index (BMI) 37.4 Intake & Output: Intake and Output for Last 24 Hours 06/22/23 06/23/23 06/24/23 23:59 23:59 23:59 Intake Total 2029 1520 / 1520 1950.75 / 1950.75 Output Total 3400 / 3400 1250 / 2550 3150 / 3150 Balance -1370 / -1370 270 / -1030 -1199.25 / -1199.25 Lab / Micro Data Attestation: I reviewed the patient's lab results. 06/24/23 06:26 06/24/23 06:26 Labs: Laboratory Results - last 24 hr 06/23/23 05:30: Diff Path Review Reviewed 06/24/23 06:26: WBC 11.8 H, RBC 3.83 L, Hgb 11.6 L, Hct 36.9 L, MCV 96.3, MCH 30.3, MCHC 31.4 L, RDW Std Deviation 44.2 H, RDW Coeff of Patricia 12.4, Plt Count 290, MPV 9.2, Immature Gran % (Auto) 0.800, Neut % (Auto) 67.7, Lymph % (Auto) 16.9 L, Maui % (Auto) 13.0 H, Eos % (Auto) 1.4, Baso % (Auto) 0.2, Absolute Neuts (auto) 8.0 H, Absolute Lymphs (auto) 1.99, Nucleated RBC % 0, DifferentialComment SCANNED, Diff Path Review Reviewed, Sodium 138, Potassium 3.9, Chloride 102, Carbon Dioxide 27.0, Anion Gap 9, BUN 43 H, Creatinine 1.52 H, Estim Creat Clear Calc 31.74, Est GFR (MDRD) Af Amer 45 L, Est GFR (MDRD) Non-Af 37 L, BUN/Creatinine Ratio 28.3 H, Glucose 199 H, Calcium 8.4 L Micro: Microbiology 06/21/23 08:20 Fluid - Synovial (joint) Gram Stain - Final 06/21/23 08:20 Fluid - Synovial (joint) Body Fluid Culture - Preliminary Staphylococcus aureus Alpha Hemolytic Streptococcus 06/21/23 08:20 Fluid - Synovial (joint) Anaerobic Culture - Final No anaerobic bacteria isolated. 06/21/23 16:30 Blood Culture (Wb) - Right Hand Bacteria Detection (PCR) - Final Staphylococcus aureus 06/21/23 16:30 Blood Culture (Wb) - Right Hand Blood Culture - Final Staphylococcus aureus 06/21/23 15:20 Blood Culture (Wb) - Left Wrist Blood Culture - Preliminary No growth in 48 hours. 06/21/23 13:18 Wound Drainage - Aerobic & Anaerobic Swabs Gram Stain - Final 06/21/23 13:18 Wound Drainage - Aerobic & Anaerobic Swabs Wound Culture - Final Staphylococcus aureus 06/20/23 23:10 Urine, Clean Catch Urine Culture - Final Mixed Gram Pos & Gram Neg Org Rhythm Strip Rhythm Strip: Sinus Rhythm Rate: 75 Ectopy: None Physical Exam Extremity Extremity Narrative: no change to physical exam, portals ok, NVI, ROM 10-80. Assessment & Plan Assessment/Plan (1) Septic joint of left knee joint: PLAN: 63 F L septic knee, will continue to follow. Agree with ancef given MSSA. (2) MSSA bacteremia: 06/24/232101 <Electronically signed by Anatoliy Moreno MD> Cosigner Signature (if applicable): CC: ~ Signed [facility] Work Phone: [phone]) 797-725810-13-2023 Progress note Author Yajaira Bryan [facility] 2023 12:15pm Note Date/Time 2023 1 2:15pm [facility] Medical Records Department [address] [place] [id number] Progress Note - Hospitalist 06/24/23 1209 MR#: [id number] Acct: [id number] Name: CAMILLE GARDINER Rep #:[id number] : 1960 63 From: Yajaira Bryan DO PCP: Dr. Nando Esposito MD Status: ADM IN Location: [place] [id number] Reason for Visit Reason for Visit: Left knee pain and swelling/inability ambulate Subjective Subjective Patient states she is slowly feeling better. Left knee pain is overall improving slowly. We discussed that her echo did not show any valvular abnormalities and that if her blood cultures on repeat are negative no further work-up for endocarditis will need to be performed. I did reiterate that we will need negative blood cultures for 48 hours and then a PICC line can be placed and we can work on discharge planning. She is hopeful to go home and possibly have home health versus outpatient therapy however she does realize that she may need to go to a nursing facility or rehab for physical therapy prior to discharge home. I also discussed with her that her blood sugars are little bit high probably related to infection and acute stress from being hospitalized and they increased her Lantus to help her glycemic control. She voiced understanding. Patient does ask if she can talk to Coco from nursing and I informed the charge nurse for the floor that she wanted to talk to her further. She stated she would pass on the message Objective Data Objective Data Vital Signs: Vital Signs Temp Pulse Resp BP Pulse Ox O2 Del Method O2 Flow Rate 97.7 F L 72 18 130/54 H 98 Room Air 2 06/24/23 10:06/24/23 10:13 06/24/23 10:13 06/24/23 10:06/24/23 10:06/24/23 10:06/21/23 14:00 Oxygen Flow Rate (L/min) 2 Oxygen Delivery Method Room Air Weight: 95.8 kg Body Mass Index (BMI) 37.4 Intake & Output: Intake and Output for Last 24 Hours 06/22/23 06/23/23 06/24/23 23:59 23:59 23:59 Intake Total 2030 / 2030 1520 / 1520 1040.75 / 1040.75 Output Total 3400 / 3400 1250 / 2550 1300 / 1300 Balance -1370 / -1370 270 / -1030 -259.25 / -259.25 Lab / Micro Data 06/24/23 06:26 06/24/23 06:26 Labs: Laboratory Results - last 24 hr 06/23/23 05:30: Diff Path Review Reviewed 06/24/23 06:26: WBC 11.8 H, RBC 3.83 L, Hgb 11.6 L, Hct 36.9 L, MCV 96.3, MCH 30.3, MCHC 31.4 L, RDW Std Deviation 44.2 H, RDW Coeff of Patricia 12.4, Plt Count 290, MPV 9.2, Immature Gran % (Auto) 0.800, Neut % (Auto) 67.7, Lymph % (Auto) 16.9 L, Maui % (Auto) 13.0 H, Eos % (Auto) 1.4, Baso % (Auto) 0.2, Absolute Neuts (auto) 8.0 H, Absolute Lymphs (auto) 1.99, Nucleated RBC % 0, DifferentialComment SCANNED, Diff Path Review May foll, Sodium 138, Potassium 3.9, Chloride 102, Carbon Dioxide 27.0, Anion Gap 9, BUN 43 H, Creatinine 1.52 H, Estim Creat Clear Calc 31.74, Est GFR (MDRD) Af Amer 45 L, Est GFR (MDRD) Non-Af 37 L, BUN/Creatinine Ratio 28.3 H, Glucose 199 H, Calcium 8.4 L Micro: Microbiology 06/21/23 08:20 Fluid - Synovial (joint) Gram Stain - Final 06/21/23 08:20 Fluid - Synovial (joint) Body Fluid Culture - Preliminary Staphylococcus aureus Alpha hemolytic organism 06/21/23 08:20 Fluid - Synovial (joint) Anaerobic Culture - Final No anaerobic bacteria isolated. 06/21/23 16:30 Blood Culture (Wb) - Right Hand Bacteria Detection (PCR) - Final Staphylococcus aureus 06/21/23 16:30 Blood Culture (Wb) - Right Hand Blood Culture - Final Staphylococcus aureus 06/21/23 15:20 Blood Culture (Wb) - Left Wrist Blood Culture - Preliminary No growth in 48 hours. 06/21/23 13:18 Wound Drainage - Aerobic & Anaerobic Swabs Gram Stain - Final 06/21/23 13:18 Wound Drainage - Aerobic & Anaerobic Swabs Wound Culture - Final Staphylococcus aureus 06/20/23 23:10 Urine, Clean Catch Urine Culture - Final Mixed Gram Pos & Gram Neg Org Rhythm Strip Rhythm Strip: Sinus Rhythm Rate: 75 Ectopy: None Physical Exam Const alert, oriented x3, no apparent distress and well nourished Constitutional Narrative: Obese, upper middle-aged, white female, sitting up in bed watching television patient appears comfortable currently and nontoxic HEENT head/scalp atraumatic and moist oral mucous membranes HEENT Narrative: Mallampati 2-3, no thrush Head and Scalp: normocephalic Resp normal respiratory effort, no retractions, no use of accessory muscles and clearto auscultation bilaterally Auscultation: Negative for rales, rhonchi or wheezes Cardio S1 normal heart sound, S2 normal heart sound, no murmurs, no rub, no gallops andno clicks Cardio Narrative: Rate controlled irregular irregular rhythm GI normal to inspection, nondistended, normoactive bowel sounds, soft to palpation and non-tender Extremity Negative for full ROM Extremity Narrative: Left knee with postoperative Steri-Strips in place, bruising is improving, mild swelling but no erythema or significant pain with palpation Neuro oriented x3, moves all extremities and no focal motor deficits Neuro Narrative: Decreased ability to move left knee due to pain Speech: speech normal Psych affect normal Psych Narrative: Very pleasant, interacts appropriately Assessment & Plan Assessment/Plan (1) Septic joint of left knee joint: (2) Chest pain: QUALIFIERS: Chest pain type: unspecified Qualified Code(s): R07.9- Chest pain, unspecified (3) Leukocytosis: (4) Hyperkalemia: PLAN: Plan Septic joint left knee secondary to MSSA -Postop day 3 I&D of septic joint left knee -Cefazolin every 8 hours per ID -Continue as needed pain medication -Continue scheduled Tylenol -As needed medication for bowel regimen -Weightbearing as tolerated in knee range of motion -PT/OT following -Patient may need placement or at least home therapy at discharge we will continue to monitor progress with PT and OT if patient needs placed would [facility] facility as she is highly functional at baseline and also has history of stroke -Blood cultures are positive for Staph aureus as well MSSA bacteremia -Echocardiogram was unremarkable for any valvular vegetations -Repeat blood cultures were drawn yesterday 06/23/2023 and are pending -Once I have negative cultures at 48 hours I will have PICC placed for outpatient antibiotics -If patient does not clear will need ROBERTO -Will need IV antibiotics at discharge Leukocytosis -Continues to trend down--> 11.8 -Continue antibiotics DM-2 -Blood sugars appear to be trending down with improved infection control and nowthe acute stress from surgery is over -Fasting is 1199 this morning -We will continue to monitor -At baseline patient appears to be well controlled as hemoglobin A1c was 7.4 on 06/21/2023 -Patient is on Farxiga at baseline we will substitute Jardiance while hospitalized -We will continue home insulin but increase from 12 units to 18 units for now with elevated fasting sugars to help improve glycemic control -Humalog 20 units with meals was reinitiated -SSI high-dose -Accu-Cheks as ordered Persistent atrial fibrillation -Continue home amiodarone -Continue home apixaban -Continue home metoprolol CKD stage IIIb -Baseline serum creatinine appears to be between 1.4 and 1.65 -Renal function is stable and at her baseline range and currently 1.5 to -Suspect baseline renal dysfunction is related to diabetic nephropathy Hyponatremia -Resolved Hyperlipidemia -Continue home atorvastatin Insomnia -Continue home trazodone Obesity -BMI 37.4 -Would benefit from weight loss -Complicates treatment, prognosis, outcomes DVT prophylaxis -Continue home Eliquis CODE STATUS -Full code Charges/Coding Visit Charges Inpatient E&M: 24213 Subs Hosp L2 06/24/23 1215 <Electronically signed by Yajaira Bryan DO> Cosigner Signature (if applicable): CC: ~ Signed [facility] Work Phone: [phone]) 736-631310-13-2023 Progress note Author Comfort Cheung [facility] 2023 12:07pm Note Date/Time 2023 1 2:07pm [facility] Medical Records Department [address] [place] [address] Progress Note - Infect Disease 06/24/23 1206 MR#: [id number] Acct: [id number] Name: CAMILLE GARDINER Rep #:[id number] : 1960 63 From: Comfort yip MD PCP: Dr. Nando Esposito MD Status: ADM IN Location: [place] [address] Physical Exam Narrative Feeling better, knee still sore, no n/v/d, no fever Const alert and no apparent distress Resp normal air movement and clear to auscultation bilaterally Cardio regular rate and regular rhythm GI soft to palpation, non-tender and non-distended Skin no rashes or lesions noted ID ID: Route of nutrition/ use of supplements: [] Nutritional Intake: [] IV Site: [] Castaneda Catheter: [] Assessment & Plan Assessment/Plan (1) Septic joint of left knee joint: PLAN: Aspiration and then OR 06/21/[address] Moreno. From OR sample, no crystals seen, wbc 219k, 92% neutrophils, cx showing gram pos. Cx with MSSA, now bcx also with mssa per pcr. Cont cefazolin. TTE showed no veg and repeat bcx pending. Will follow (2) MSSA bacteremia: 06/24/23 1207 <Electronically signed by Comfort Cheung MD> Cosigner Signature (if applicable): CC: ~ Signed [facility] Work Phone: 1(995) 825-515810-12-2023 Progress note Author Yajaira Bryan [facility] June 23, 2023 12:42pm Note Date/Time June 23, 2023 1 2:29pm [facility] Medical Records Department [address] [place] [address] Progress Note - Hospitalist 06/23/23 1221 MR#: [id number] Acct: [id number] Name: CAMILLE GARDINER Rep #:[id number] : 1960 62 From: Yajaira Bryan DO PCP: Dr. Nando Esposito MD Status: ADM IN Location: [place] [address] Reason for Visit Reason for Visit: Left knee pain and swelling Subjective Subjective No issues overnight. Knee is feeling somewhat better however still painful. Clinically stable. White count is improving. Unfortunately her blood cultures resulted positive this morning for Staph aureus. This is MSSA and consistent with joint cultures. I did discuss the case at the nature of her bacteremia andthe fact that she would need IV antibiotics and negative cultures at 48 hours prior to PICC placement that she would likely be here until Tuesday. Patient is frustrated that this is likely result of the joint injection and I did voice with her that is understandable. Objective Data Objective Data Vital Signs: Vital Signs Temp Pulse Resp BP Pulse Ox O2 Del Method O2 Flow Rate 98.2 F 84 16 153/81 H 98 Room Air 2 06/23/23 10:54 06/23/23 10:54 06/23/23 10:54 06/23/23 10:54 06/23/23 10:54 06/23/23 10:54 06/21/23 14:00 Oxygen Flow Rate (L/min) 2 Oxygen Delivery Method Room Air Weight: 95.8 kg Body Mass Index (BMI) 37.4 Intake & Output: Intake and Output for Last 24 Hours 06/21/23 06/22/23 06/23/23 23:59 23:59 23:59 Intake Total 1450 / 1950 2030 / 2030 200 / 200 Output Total 900 / 1700 3400 / 3400 450 / 450 Balance 550 / 250 -1370 / -1370 -250 / -250 Lab / Micro Data 06/23/23 05:30 06/23/23 05:30 Labs: Laboratory Results - last 24 hr 06/21/23 00:04: Diff Path Review Reviewed 06/21/23 03:51: Diff Path Review Reviewed 06/21/23 08:20: Synovial Path Comment Reviewed, Synovial Glucose 119 06/21/23 13:18: Fl Crystal Path Review Reviewed 06/21/23 13:18: Fl Crystal Path Review Reviewed 06/22/23 06:04: Diff Path Review Reviewed 06/22/23 16:03: POC Glucose 222 H 06/23/23 05:30: WBC 12.9 H, RBC 4.04 L, Hgb 12.4, Hct 38.6, MCV 95.5, MCH 30.7, MCHC 32.1, RDW Std Deviation 44.0 H, RDW Coeff of Patricia 12.5, Plt Count 275, MPV 9.4, Immature Gran % (Auto) 0.800, Neut % (Auto) 72.1 H, Lymph % (Auto) 14.3 L, [place] % (Auto) 11.7 H, Eos % (Auto) 1.0, Baso % (Auto) 0.1, Absolute Neuts (auto)9.3 H, Absolute Lymphs (auto) 1.84, Nucleated RBC % 0, Differential Comment SCANNED, Diff Path Review May , Sodium 133 L, Potassium 3.9, Chloride 101, Carbon Dioxide 25.0, Anion Gap 7, BUN 44 H, Creatinine 1.49 H, Estim Creat ClearCalc 32.80, Est GFR (MDRD) Af Amer 46 L, Est GFR (MDRD) Non-Af 38 L, BUN/Creatinine Ratio 29.5 H, Glucose 174 H, Calcium 8.8 Micro: Microbiology 06/21/23 08:20 Fluid - Synovial (joint) Gram Stain - Final 06/21/23 08:20 Fluid - Synovial (joint) Body Fluid Culture - Preliminary Staphylococcus aureus Alpha hemolytic organism 06/21/23 08:20 Fluid - Synovial (joint) Anaerobic Culture - Preliminary Checking for anaerobes, further studies to follow. 06/21/23 16:30 Blood Culture (Wb) - Right Hand Bacteria Detection (PCR) - Final Staphylococcus aureus 06/21/23 16:30 Blood Culture (Wb) - Right Hand Blood Culture - Preliminary Staphylococcus aureus 06/21/23 13:18 Wound Drainage - Aerobic & Anaerobic Swabs Gram Stain - Final 06/21/23 13:18 Wound Drainage - Aerobic & Anaerobic Swabs Wound Culture - Final Staphylococcus aureus 06/20/23 23:10 Urine, Clean Catch Urine Culture - Final Mixed Gram Pos & Gram Neg Org Radiography Diagnostic Testing: Radiology Impression Echocardiogram 06/23/23 07:25 Interpretation Summary Normal LV size. Left ventricular systolic function is normal. The estimated ejection fraction is 55 %. Ordering Physician: Yajaira Bryan Referring Physician: NANDO ESPOSITO Performed By: Beba Benjamin RCS Rhythm Strip Rhythm Strip: Sinus Rhythm Rate: 75 Ectopy: None Physical Exam Const alert, oriented x3, no apparent distress and well nourished Constitutional Narrative: Obese, upper middle-aged, white female, sitting up in a chair at the bedside, patient appears comfortable currently and nontoxic HEENT head/scalp atraumatic and moist oral mucous membranes HEENT Narrative: Mallampati 2-3, no thrush Head and Scalp: normocephalic Resp normal respiratory effort, no retractions, no use of accessory muscles and clearto auscultation bilaterally Auscultation: Negative for rales, rhonchi or wheezes Cardio S1 normal heart sound, S2 normal heart sound, no murmurs, no rub, no gallops andno clicks Cardio Narrative: Rate controlled irregular irregular rhythm GI normal to inspection, nondistended, normoactive bowel sounds, soft to palpation and non-tender Extremity Negative for full ROM Extremity Narrative: Patient sitting up in a chair and left knee is bent with postoperative dressing in place, no edema, cyanosis or Neuro oriented x3, moves all extremities and no focal motor deficits Speech: speech normal Psych affect normal Psych Narrative: Very pleasant, interacts appropriately Assessment & Plan Assessment/Plan (1) Septic joint of left knee joint: (2) Chest pain: QUALIFIERS: Chest pain type: unspecified Qualified Code(s): R07.9- Chest pain, unspecified (3) UTI (urinary tract infection): QUALIFIERS: Urinary tract infection type: acute cystitis Hematuria presence: without hematuria Qualified Code(s): N30.00 - Acute cystitis without hematuria (4) Leukocytosis: (5) Hyperkalemia: PLAN: Plan Septic joint left knee secondary to MSSA -Postop day 2 I&D of septic joint left knee -Cefazolin every 8 hours per ID -Continue as needed pain medication -Continue scheduled Tylenol -As needed medication for bowel regimen -Weightbearing as tolerated in knee range of motion -PT/OT consultation following -Patient may need placement or at least home therapy at discharge we will continue to monitor progress with PT and OT -Blood cultures are positive for Staph aureus as well MSSA bacteremia -Check echocardiogram -Repeat blood cultures for clearance--> once negative for 48 hours and okay withID will place PICC -Patient does not clear will need ROBERTO -Will need IV antibiotics at discharge Leukocytosis -Continues to trend down--> 12.9 today -Continue antibiotics DM-2 -Blood sugars appear to be trending down with improved infection control and nowthe acute stress from surgery is over -Fasting is 174 this morning -We will continue to monitor -At baseline patient appears to be well controlled as hemoglobin A1c was 7.4 on 06/21/2023 -Patient is on Farxiga at baseline we will substitute Jardiance while hospitalized -Continue home insulin 12 units nightly -Humalog 20 units with meals was reinitiated -SSI high-dose for now -Accu-Cheks as ordered Persistent atrial fibrillation -Continue home amiodarone -Continue home apixaban -Continue home metoprolol CKD stage IIIb -Baseline serum creatinine appears to be between 1.4 and 1.65 -Renal function back to her baseline at 1.49 today from 1.84 yesterday -Suspect baseline renal dysfunction is related to diabetic nephropathy Hyponatremia -Mild and appears to be somewhat chronic -Stable -Continue home Lasix -Trending up -Continue to monitor Hyperlipidemia -Continue home atorvastatin Insomnia -Continue home trazodone Obesity -BMI 37.4 -Would benefit from weight loss -Complicates treatment, prognosis, outcomes DVT prophylaxis -Continue home Eliquis CODE STATUS -Full code Charges/Coding Visit Charges Inpatient E&M: 27808 Subs Hosp L2 06/23/23 1242 <Electronically signed by Yajaira Bryan DO> Cosigner Signature (if applicable): CC: ~ Signed [facility] Work Phone: 1(225) 865-471910-12-2023 Progress note Author [facility] June 23, 2023 11:04am Note Date/Time June 23, 2023 1 1:04am [facility] Medical Records Department [address] [place] [address] Progress Note - Infect Disease 06/23/23 1102 MR#: [id number] Acct: [id number] Name: CAMILLE GARDINER Rep #:[id number] : 1960 62 From: Comfort yip MD PCP: Dr. Nando Esposito MD Status: ADM IN Location: [place] [address] Physical Exam Narrative Feeling ok, no new joint pain, knee about the same, no fever Const alert and no apparent distress General Appearance: cooperative Resp normal air movement and clear to auscultation bilaterally Cardio regular rate and regular rhythm GI soft to palpation, non-tender and non-distended Extremity Extremity Narrative: no spine tenderness Skin no rashes or lesions noted ID ID: Route of nutrition/ use of supplements: [] Nutritional Intake: [] IV Site: [] Castaneda Catheter: [] Assessment & Plan Assessment/Plan (1) Septic joint of left knee joint: PLAN: Aspiration and then OR 06/21/[address] Moreno. From OR sample, no crystals seen, wbc 219k, 92% neutrophils, cx showing gram pos. Cx with MSSA, now bcx also with mssa per pcr. Will narrow vanc to cefazolin. TTE and repeat bcx pending. Will follow, d/w Dr. Bryan (2) MSSA bacteremia: 06/23/23 1104 <Electronically signed by Comfort Cheung MD> Cosigner Signature (if applicable): CC: ~ Signed [facility] Work Phone: [phone]) 434-237510-11-2023 Consult note Author [facility] June 22, 2023 1:30pm Note Date/Time June 22, 2023 1 2:59pm [facility] Medical Records Department [address] [place] [address] Consultation - Infectious Dx 06/22/23 1249 MR#: [id number] Acct: [id number] Name: CAMILLE GARDINER Rep #:[id number] : 1960 62 From: Comfort yip MD PCP: Dr. Nando Esposito MD Status: ADM IN Location: [place] [address] Assessment & Plan Assessment/Plan (1) Septic joint of left knee joint: PLAN: Aspiration and then OR 06/21/[address] Moreno. From OR sample, no crystals seen, wbc 219k, 92% neutrophils, cx showing gram pos. Spoke with microlab, suspected staph aureus. Cont iv vanc. Will follow, thank you HPI Consult Data Date of Consult: 06/22/23 HPI Narrative Reason for Consultation: septic arthritis HPI Narrative: CAMILLE GARDINER, is a 62 F with h/o CKD, obesity, CHF, presented with one week progressive L knee pain after twisting her knee. Given kenalog shot 06/16. Somewarmth, no redness or drainage. No fever or chills, no recent abx. Admitted 06/21/23, aspiration done by Dr. oMreno. Started on iv vanc, did get dose of linezolid. Feeling better today, knee pain improved. Full ROS performed and neg except as noted above. [facility] Medical History Atrial fibrillation, new onset Atypical chest pain Cardiomyopathy Chest pain CHF (congestive heart failure) CVA (cerebral vascular accident) Effusion, left knee Finger lesion HLD (hyperlipidemia) Hypertension Hypertensive urgency Menopausal and female climacteric states Migraine headache Obesity Osteoarthritis of left knee Stage 3b chronic kidney disease (CKD) Type II diabetes mellitus Home Medications duloxetine 60 mg capsule,delayed release 120 mg PO QHS mental health 11/08/21 [History Last Taken Unknown] acetaminophen 325 mg tablet (Tylenol) 650 mg (2 x 325 mg) PO Q4H PRN PRN Fever, pain 1-06/21 #0 tabs 09/17/22 [Rx Last Taken Unknown] ferrous sulfate 325 mg (65 mg iron) tablet (FeroSul) 325 mg PO DAILY@1200 #0 tabs 09/17/22 [Rx Last Taken Unknown] potassium chloride 10 mEq capsule,extended release 10 meq PO DAILY supplement #30 caps 09/17/22 [Rx Last Taken Unknown] apixaban 5 mg tablet (Eliquis) 5 mg PO BID #180 tabs 11/04/22 [Rx Last Taken Unknown] atorvastatin 40 mg tablet 40 mg PO QHS cholesterol #90 tabs 11/04/22 [Rx Last Taken Unknown] dapagliflozin propanediol 10 mg tablet (Farxiga) 10 mg PO DAILY #90 tabs 02/09/23 [Rx Last Taken Unknown] amiodarone 200 mg tablet 200 mg PO DAILY 05/09/23 [History Last Taken Unknown] furosemide 40 mg tablet 40 mg PO DAILY 05/09/23 [History Last Taken Unknown] insulin lispro 100 unit/mL subcutaneous pen (Humalog KwikPen (U-100) Insulin) 20unit (0.2 mL) subcut TID diabetes #54 mL 05/09/23 [Rx Last Taken Unknown] magnesium 250 mg tablet 500 mg PO DAILY supplement 05/09/23 [History Last Taken Unknown] mecobalamin (vitamin B12) 5,000 mcg disintegrating tablet 5,000 mcg PO DAILY supplement 05/09/23 [History Last Taken Unknown] trazodone 100 mg tablet 100 mg PO DAILY insomnia 05/09/23 [History Last Taken Unknown] dulaglutide 0.75 mg/0.5 mL subcutaneous pen injector (Trulicity) 0.75 mg (0.5 mL) subcut QWEEK #2 mL 05/18/23 [Rx Last Taken Unknown] metoprolol succinate 50 mg tablet,extended release 24 hr 50 mg PO DAILY #90 tabs06/07/23 [Rx Last Taken Unknown] methylprednisolone 4 mg tablets in a dose pack (Medrol (Bird)) See Rx Instructions PO PER PKG DIR steroid for knee #21 tabs 06/20/23 [Rx Last Taken 06/20/23] insulin glargine 100 unit/mL (3 mL) subcutaneous pen (Lantus Solostar U-100 Insulin) 12 unit subcut QHS diabetes 06/21/23 [History Last Taken Unknown] nystatin 100,000 unit/gram topical powder (Nyamyc) 1 applic topical BID PRN redness 06/21/23 [History Last Taken Unknown] Allergy/AdvReac Type Severity Reaction Status Date / Time ampicillin Allergy Intermediate Hives Verified 06/21/23 04:52 levofloxacin [From Levaquin] Allergy Other Verified 06/20/23 22:57 Penicillins Allergy Hives Verified 06/20/23 22:57 ampicillin Allergy Intermediate Hives Uncoded 06/20/23 13:04 Family History Mother Diabetes Psoriatic arthritis Rheumatoid arthritis Father COPD (chronic obstructive pulmonary disease) With concurrent tobacco use history. Myocardial infarction Heart disease Surgical History History of foot surgery Social History adopted: No household members: spouse housing: house number of children: 0 current occupational status: employed current occupation: works at [employer] pets and animals: Yes (kittens, dogs, horses) Smoking Status: Never smoker alcohol intake: never substance use type: does not use caffeine: Yes (occasionally) Type: carbonated beverages and coffee Physical Exam Const alert, oriented x3 and no apparent distress General Appearance: cooperative and well developed HEENT normocephalic and head/scalp atraumatic Eyes PERRL and EOMs intact bilaterally Neck supple and No nodes Resp normal air movement and clear to auscultation bilaterally Cardio regular rate and regular rhythm GI soft to palpation, non-tender and non-distended Extremity Extremity Narrative: mild L knee swelling Skin no rashes or lesions noted Neuro CN's II-XII intact bilaterally Lab / Micro Data Attestation: I reviewed the patient's lab results. 06/22/23 06:04 06/22/23 06:04 Labs: Laboratory Results - last 24 hr 06/21/23 03:51: Hemoglobin A1c 7.4 H 06/21/23 13:18: Fluid Source Cancelled, Fluid Color Cancelled, Fluid Appearance Cancelled, Fluid WBC Cancelled, Fluid RBC Cancelled, Fluid Tot Cell Count Cancelled, Fld Polynuclear WBCs # Cancelled, Fld Polynuclear WBCs % Cancelled, Fluid Mononuclear WBCs Cancelled, Fld Mononuclear WBCs % Cancelled, Fluid Neutrophils Cancelled, Fluid Lymphocytes Cancelled, Fluid Monocytes Cancelled, Fluid Plasma Cells Cancelled, Fluid Macrophages Cancelled, Fld Mesothelial CellsCancelled, Fluid Other Cells Cancelled, Fluid Crystals NO CRYSTALS SEEN 06/21/23 13:18: Fluid Crystals NO CRYSTALS SEEN, Fluid Crystal Source SYNOVIAL 06/21/23 13:18: Fluid Crystal Source SYNOVIAL, Fl Crystal Path Review Will follow 06/21/23 13:18: Fl Crystal Path Review Will follow, Fl Pathologist Comment Cancelled, Fluid Comment 2 Cancelled, Synovial Source Not Reportable, Synovial Color Red, Synovial Appearance Purulent, Synovial Viscosity Mod. Viscous, Synovial WBC 219.5600 H, Synovial RBC 0.133 H, Synovial Tot Cell Ct 219.7600 H, Synov Polynuclear WBCs 5.037, Synov Mononuclear WBCs 5.037, Synovial [id number] H, Synovial Lymphocytes 2, Synovial Monocytes 6, Synovial Polynuclear % 91.8,Synovial Mononuclear % 8.2, Synovial Path Comment May follow 06/21/23 13:32: POC Glucose 310 H 06/21/23 15:19: POC Glucose 283 H 06/21/23 15:20: Sodium 130 L, Potassium 4.5, Chloride 99, Carbon Dioxide 23.0, Anion Gap 8, BUN 48 H, Creatinine 1.62 H, Estim Creat Clear Calc 30.17, Est GFR (MDRD) Af Amer 41 L, Est GFR (MDRD) Non-Af 34 L, BUN/Creatinine Ratio 29.6 H, Glucose 316 H, Calcium 8.9 06/21/23 21:17: POC Glucose 328 H 06/22/23 06:04: WBC 14.7 H, RBC 4.67, Hgb 14.0, Hct 45.6, MCV 97.6, MCH 30.0, MCHC 30.7 L, RDW Std Deviation 45.7 H, RDW Coeff of Patricia 12.6, Plt Count 315, MPV9.4, Immature Gran % (Auto) 0.500, Neut % (Auto) 76.6 H, Lymph % (Auto) 9.7 L, Maui % (Auto) 13.0 H, Eos % (Auto) 0.1, Baso % (Auto) 0.1, Absolute Neuts (auto)11.2 H, Absolute Lymphs (auto) 1.42, Nucleated RBC % 0, Differential Comment SCANNED, Diff Path Review January foll, Sodium 133 L, Potassium 4.6, Chloride 99, Carbon Dioxide 27.0, Anion Gap 7, BUN 49 H, Creatinine 1.84 H, Estim Creat ClearCalc 26.56, Est GFR (MDRD) Af Amer 36 L, Est GFR (MDRD) Non-Af 30 L, BUN/Creatinine Ratio 26.6 H, Glucose 341 H, Calcium 9.1 06/22/23 09:20: MRSA (PCR) Negative 06/22/23 11:19: POC Glucose 316 H Micro: Microbiology 06/21/23 13:18 Wound Drainage - Aerobic & Anaerobic Swabs Wound Culture - Preliminary Gram positive organism 06/21/23 08:20 Fluid - Synovial (joint) Gram Stain - Final 06/21/23 08:20 Fluid - Synovial (joint) Body Fluid Culture - Preliminary Gram positive organism 06/20/23 23:10 Urine, Clean Catch Urine Culture - Final Mixed Gram Pos & Gram Neg Org Rhythm Strip Rhythm Strip: Sinus Rhythm Rate: 75 Ectopy: None 06/22/23 1330 <Electronically signed by Comfort Cheung MD> Cosigner Signature (if applicable): CC: Dr. Nando Esposito MD; Dr. Hebert Ruiz MD; Dr. Comfort Cheung MD; Dr. Anatoliy Moreno MD~ Signed [facility] Work Phone: 1(599) 494-244010-11-2023 Progress note Author Yajaira Bryan [facility] June 22, 2023 11:14am Note Date/Time June 22, 2023 1 1:14am [facility] Medical Records Department [address] [place] [id number] Progress Note - Hospitalist 06/22/23 1106 MR#: [id number] Acct: [id number] Name: CAMILLE GARDINER Rep #:[id number] : 1960 62 From: Yajaira Bryan DO PCP: Dr. Nando Esposito MD Status: ADM IN Location: [place] [address]- 1 Reason for Visit Reason for Visit: Left knee pain/swelling Subjective Subjective Patient reports she is having some pain in the left knee postoperatively but it is fairly well controlled and managed with the current pain regimen. No significant issues overnight other than pain in her knee. She stated that she was able to sleep a little bit better. Objective Data Objective Data Vital Signs: Vital Signs Temp Pulse Resp BP Pulse Ox O2 Del Method O2 Flow Rate 98.5 F 88 18 136/66 H 98 Room Air 2 06/22/23 06:00 06/22/23 08:59 06/22/23 06:00 06/22/23 08:59 06/22/23 07:12 06/22/23 07:12 06/21/23 14:00 Oxygen Flow Rate (L/min) 2 Oxygen Delivery Method Room Air Weight: 95.8 kg Body Mass Index (BMI) 37.4 Intake & Output: Intake and Output for Last 24 Hours 06/20/23 06/21/23 06/22/23 23:59 23:59 23:59 Intake Total 1450 / 1950 1230 / 1230 Output Total 900 / 1700 1800 / 1800 Balance 550 / 250 -570 / -570 Lab / Micro Data 06/22/23 06:04 06/22/23 06:04 Labs: Laboratory Results - last 24 hr 06/21/23 03:51: Hemoglobin A1c 7.4 H 06/21/23 08:20: Fluid Crystals Cancelled, Fluid Crystal Source Cancelled, Fl Crystal Path Review Cancelled 06/21/23 13:18: Fluid Source Cancelled, Fluid Color Cancelled, Fluid Appearance Cancelled, Fluid WBC Cancelled, Fluid RBC Cancelled, Fluid Tot Cell Count Cancelled, Fld Polynuclear WBCs # Cancelled, Fld Polynuclear WBCs % Cancelled, Fluid Mononuclear WBCs Cancelled, Fld Mononuclear WBCs % Cancelled, Fluid Neutrophils Cancelled, Fluid Lymphocytes Cancelled, Fluid Monocytes Cancelled, Fluid Plasma Cells Cancelled, Fluid Macrophages Cancelled, Fld Mesothelial CellsCancelled, Fluid Other Cells Cancelled, Fluid Crystals NO CRYSTALS SEEN 06/21/23 13:18: Fluid Crystals NO CRYSTALS SEEN, Fluid Crystal Source SYNOVIAL 06/21/23 13:18: Fluid Crystal Source SYNOVIAL, Fl Crystal Path Review Will follow 06/21/23 13:18: Fl Crystal Path Review Will follow, Fl Pathologist Comment Cancelled, Fluid Comment 2 Cancelled, Synovial Source Not Reportable, Synovial Color Red, Synovial Appearance Purulent, Synovial Viscosity Mod. Viscous, Synovial WBC 219.5600 H, Synovial RBC 0.133 H, Synovial Tot Cell Ct 219.7600 H, Synov Polynuclear WBCs 5.037, Synov Mononuclear WBCs 5.037, Synovial [id number] H, Synovial Lymphocytes 2, Synovial Monocytes 6, Synovial Polynuclear % 91.8,Synovial Mononuclear % 8.2, Synovial Path Comment May follow 06/21/23 13:32: POC Glucose 310 H 06/21/23 15:19: POC Glucose 283 H 06/21/23 15:20: Sodium 130 L, Potassium 4.5, Chloride 99, Carbon Dioxide 23.0, Anion Gap 8, BUN 48 H, Creatinine 1.62 H, Estim Creat Clear Calc 30.17, Est GFR (MDRD) Af Amer 41 L, Est GFR (MDRD) Non-Af 34 L, BUN/Creatinine Ratio 29.6 H, Glucose 316 H, Calcium 8.9 06/21/23 21:17: POC Glucose 328 H 06/22/23 06:04: WBC 14.7 H, RBC 4.67, Hgb 14.0, Hct 45.6, MCV 97.6, MCH 30.0, MCHC 30.7 L, RDW Std Deviation 45.7 H, RDW Coeff of Patricia 12.6, Plt Count 315, MPV9.4, Immature Gran % (Auto) 0.500, Neut % (Auto) 76.6 H, Lymph % (Auto) 9.7 L, Maui % (Auto) 13.0 H, Eos % (Auto) 0.1, Baso % (Auto) 0.1, Absolute Neuts (auto)11.2 H, Absolute Lymphs (auto) 1.42, Nucleated RBC % 0, Differential Comment SCANNED, Diff Path Review May foll, Sodium 133 L, Potassium 4.6, Chloride 99, Carbon Dioxide 27.0, Anion Gap 7, BUN 49 H, Creatinine 1.84 H, Estim Creat ClearCalc 26.56, Est GFR (MDRD) Af Amer 36 L, Est GFR (MDRD) Non-Af 30 L, BUN/Creatinine Ratio 26.6 H, Glucose 341 H, Calcium 9.1 06/22/23 09:20: MRSA (PCR) Negative Micro: Microbiology 06/21/23 08:20 Fluid - Synovial (joint) Gram Stain - Final 06/21/23 08:20 Fluid - Synovial (joint) Body Fluid Culture - Preliminary Gram positive organism 06/20/23 23:10 Urine, Clean Catch Urine Culture - Final Mixed Gram Pos & Gram Neg Org Rhythm Strip Rhythm Strip: Sinus Rhythm Rate: 75 Ectopy: None Physical Exam Const alert, oriented x3, no apparent distress and well nourished Constitutional Narrative: Obese, upper middle-aged, white female, lying in bed resting comfortably, patient appears comfortable currently and nontoxic HEENT head/scalp atraumatic and moist oral mucous membranes HEENT Narrative: Mallampati 2-3, no thrush Head and Scalp: normocephalic Resp normal respiratory effort, no retractions and no use of accessory muscles Cardio S1 normal heart sound, S2 normal heart sound, no murmurs, no rub, no gallops andno clicks Cardio Narrative: Rate controlled irregular irregular rhythm GI normal to inspection, nondistended, normoactive bowel sounds, soft to palpation and non-tender Extremity Negative for full ROM Extremity Narrative: Left knee with postoperative bandages in place and dried blood underneath but noactive bleeding, effusion noted due to recent surgery and washout, trace left lower extremity edema likely related to surgical intervention but no cyanosis orclubbing, no significant abnormalities right lower extremity, pedal pulses bilaterally are 2+ Neuro oriented x3, moves all extremities and no focal motor deficits Neuro Narrative: Decreased ability to move left knee due to pain Speech: speech normal Psych affect normal Psych Narrative: Very pleasant, interacts appropriately Assessment & Plan Assessment/Plan (1) Septic joint of left knee joint: (2) Chest pain: QUALIFIERS: Chest pain type: unspecified Qualified Code(s): R07.9- Chest pain, unspecified (3) UTI (urinary tract infection): QUALIFIERS: Urinary tract infection type: acute cystitis Hematuria presence: without hematuria Qualified Code(s): N30.00 - Acute cystitis without hematuria (4) Leukocytosis: (5) Hyperkalemia: PLAN: Plan Septic joint left knee -Postop day 1 I&D of septic joint left knee -ID consult is pending but they did recommend with my conversation yesterday to continue cefepime and vancomycin -Continue as needed pain medication -We will schedule Tylenol -As needed medication for bowel regimen -Weightbearing as tolerated in knee range of motion -PT/OT consultation is pending -Blood cultures and finalized cultures of the joint are pending Leukocytosis -Likely related the above -Trending down -Antibiotics as ordered -Await cultures Urinary tract infection -This was ruled out -Culture with mixed gram-positive and gram-negative organisms a 80-100,000 indicative of contaminant Hyperkalemia -Resolved DM-2 -Blood sugars are elevated this morning this may be stress response along with infection -Hold on making any aggressive changes with her insulin regimen at this time and monitor closely with possible changes tomorrow depending on trend over time -At baseline patient appears to be well controlled as hemoglobin A1c was 7.4 on 06/21/2023 -Patient is on Farxiga at baseline we will substitute Jardiance while hospitalized -Continue home insulin 12 units nightly -Humalog 20 units with meals was reinitiated -SSI -Accu-Cheks as ordered Persistent atrial fibrillation -Continue home amiodarone -Okay to start apixaban 24 hours postoperatively per discussion with orthopedic surgery so we will therefore start dose tonight -Continue home metoprolol CKD stage IIIb -Baseline serum creatinine appears to be between 1.4 and 1.65 -Current serum creatinine serum creatinine at this time is 1.84 which appears rip slightly above her baseline -We will continue home diuresis but monitor closely and if trends up further tomorrow we will hold -Suspect baseline renal dysfunction is related to diabetic nephropathy Hyponatremia -Mild and appears to be somewhat chronic -Is trending up and 133 this morning -Continue home Lasix -Trending up -Continue to monitor Hyperlipidemia -Continue home atorvastatin Insomnia -Continue home trazodone Obesity -BMI 37.4 -Would benefit from weight loss -Complicates treatment, prognosis, outcomes DVT prophylaxis -SCDs for now -Okay to restart Eliquis tondarrell CODE STATUS -Full code 06/22/231113 <Electronically signed by Yajaira Bryan DO> Cosigner Signature (if applicable): CC: ~ Signed ADDENDUM by Dr. Yajaira Bryan DO on 06/22/23 at 1114 Visit Charges Inpatient E&M: 82082 Subs Hosp L2 06/22/231113<Electronically signed by Yajaira Brayn DO> Cosigner Signature (if applicable): cc: ~* Signed [facility] Work Phone: 1(813) 453-733010-11-2023 Progress note Author Anatoliy Moreno [facility] June 22, 2023 8:31am Note Date/Time June 22, 2023 8 :31am [facility] Medical Records Department [address] [place] [address] Progress Note - Orthopedic 06/22/2327 MR#: [id number] Acct: [id number] Name: CAMILLE GARDINER Rep #:[id number] : 1960 62 From: Anatoliy Moreno MD PCP: Dr. Nando Esposito MD Status: ADM IN Location: [place] [address]- Subjective Subjective POD 1 L knee scope I and D for septic joint. Doing well. Still having some knee pain but just recently had pain medications. Objective Data Objective Data Vital Signs: Vital Signs Temp Pulse Resp BP Pulse Ox O2 Del Method O2 Flow Rate 98.5 F 84 18 148/79 H 98 Room Air 2 06/22/23 06:00 06/22/23 06:00 06/22/23 06:00 06/22/23 06:00 06/22/23 07:12 06/22/23 07:12 06/21/23 14:00 Oxygen Flow Rate (L/min) 2 Oxygen Delivery Method Room Air Weight: 211 lb 3.245 oz Body Mass Index (BMI) 37.4 Intake & Output: Intake and Output for Last 24 Hours 06/20/23 06/21/23 06/22/23 23:59 23:59 23:59 Intake Total 1450 / 1950 1230 / 1230 Output Total 900 / 1700 1800 / 1800 Balance 550 / 250 -570 / -570 Lab / Micro Data Attestation: I reviewed the patient's lab results. 06/22/23 06:04 06/22/23 06:04 Labs: Laboratory Results - last 24 hr 06/21/23 03:51: Hemoglobin A1c 7.4 H 06/21/23 08:20: Fluid Crystals Cancelled, Fluid Crystal Source Cancelled, Fl Crystal Path Review Cancelled, Synovial Source TNP, Synovial Color Red, SynovialAppearance Cloudy, Synovial Viscosity Liquid, Synovial WBC 77.8200 H, Synovial RBC 0.310 H, Synovial Tot Cell Ct 77.9100 H, Synov Polynuclear WBCs 6.958, SynovMononuclear WBCs 0.824, Synovial Neutrophils 98 H, Synovial Lymphocytes 1, Synovial Other Cells 1, Synovial Polynuclear % 89.4, Synovial Mononuclear % 10.6, Synovial Path Comment May follow 06/21/23 13:18: Fluid Source Cancelled, Fluid Color Cancelled, Fluid Appearance Cancelled, Fluid WBC Cancelled, Fluid RBC Cancelled, Fluid Tot Cell Count Cancelled, Fld Polynuclear WBCs # Cancelled, Fld Polynuclear WBCs % Cancelled, Fluid Mononuclear WBCs Cancelled, Fld Mononuclear WBCs % Cancelled, Fluid Neutrophils Cancelled, Fluid Lymphocytes Cancelled, Fluid Monocytes Cancelled, Fluid Plasma Cells Cancelled, Fluid Macrophages Cancelled, Fld Mesothelial CellsCancelled, Fluid Other Cells Cancelled, Fluid Crystals NO CRYSTALS SEEN 06/21/23 13:18: Fluid Crystals NO CRYSTALS SEEN, Fluid Crystal Source SYNOVIAL 06/21/23 13:18: Fluid Crystal Source SYNOVIAL, Fl Crystal Path Review Will follow 06/21/23 13:18: Fl Crystal Path Review Will follow, Fl Pathologist Comment Cancelled, Fluid Comment 2 Cancelled, Synovial Source Not Reportable, Synovial Color Red, Synovial Appearance Purulent, Synovial Viscosity Mod. Viscous, Synovial WBC 219.5600 H, Synovial RBC 0.133 H, Synovial Tot Cell Ct 219.7600 H, Synov Polynuclear WBCs 5.037, Synov Mononuclear WBCs 5.037, Synovial Fowqmsxflza79 H, Synovial Lymphocytes 2, Synovial Monocytes 6, Synovial Polynuclear % 91.8,Synovial Mononuclear % 8.2, Synovial Path Comment May follow 06/21/23 13:32: POC Glucose 310 H 06/21/23 15:19: POC Glucose 283 H 06/21/23 15:20: Sodium 130 L, Potassium 4.5, Chloride 99, Carbon Dioxide 23.0, Anion Gap 8, BUN 48 H, Creatinine 1.62 H, Estim Creat Clear Calc 30.17, Est GFR (MDRD) Af Amer 41 L, Est GFR (MDRD) Non-Af 34 L, BUN/Creatinine Ratio 29.6 H, Glucose 316 H, Calcium 8.9 06/21/23 21:17: POC Glucose 328 H 06/22/23 06:04: WBC 14.7 H, RBC 4.67, Hgb 14.0, Hct 45.6, MCV 97.6, MCH 30.0, MCHC 30.7 L, RDW Std Deviation 45.7 H, RDW Coeff of Patricia 12.6, Plt Count 315, MPV9.4, Immature Gran % (Auto) 0.500, Neut % (Auto) 76.6 H, Lymph % (Auto) 9.7 L, Maui % (Auto) 13.0 H, Eos % (Auto) 0.1, Baso % (Auto) 0.1, Absolute Neuts (auto)11.2 H, Absolute Lymphs (auto) 1.42, Nucleated RBC % 0, Differential Comment SCANNED, Diff Path Review January foll, Sodium 133 L, Potassium 4.6, Chloride 99, Carbon Dioxide 27.0, Anion Gap 7, BUN 49 H, Creatinine 1.84 H, Estim Creat ClearCalc 26.56, Est GFR (MDRD) Af Amer 36 L, Est GFR (MDRD) Non-Af 30 L, BUN/Creatinine Ratio 26.6 H, Glucose 341 H, Calcium 9.1 Micro: Microbiology 06/21/23 08:20 Fluid - Synovial (joint) Gram Stain - Final new cultures pending from intra op but cell count over 200k and negative prelim crystals Rhythm Strip Rhythm Strip: Sinus Rhythm Rate: 75 Ectopy: None Physical Exam Const alert, oriented x3 and no apparent distress Resp Effort and Inspection: able to speak in complete sentences Extremity normal capillary refill and no calf tenderness Extremity Narrative: knee a bit more swollen, portals normal, steris in place, NVI normal pulses and sensation to the foot, ok to wiggle toes and df /pf the ankle. ROM 0-45. mild bruising anterior knee Assessment & Plan Assessment/Plan (1) Septic joint of left knee joint: PLAN: 62 F POD 1 L knee I and D, for septic joint, negative crystals. On vancomycin but also received a dose of linezolid. Pending ID consult and culturesensitivities for abx regime. Medicine following - thank you. Will trend WBC andinflammatory markers. OK for WBAT and knee ROM - patient aware - but may need a walker and/or crutches. Asked nurses to ice the knee and change bandage this morning. Can use YOEL wrap for gentle compression. Will follow. 06/22/23830 <Electronically signed by Anatoliy Moreno MD> Cosigner Signature (if applicable): CC: ~ Signed [facility] Work Phone: 1(588) 658-864010-11-2023 Consult note Author Nj Lester [facility] June 22, 2023 1:38am Note Date/Time June 22, 2023 1 :38am [facility] Medical Records Department [address] [place] [address] Pharmacokinetic/Renal -Consult 06/22/23136 MR#: [id number] Acct: [id number] Name: CAMILLE GARDINER Rep #:[id number] : 1960 62 From: Nj Gal[place] od PCP: Dr. Nando Esposito MD Status: ADM IN Location: [place] [address] Consult Antibiotic Management Pharmacy has been consulted to manage selected antiobiotic: Vancomycin Type of Intervention Type of Consult: New start Labs Labs: Sodium 130 mmol/L (136-145) L 06/21/23 15:20 Potassium 4.5 mmol/L (3.5-5.1) 06/21/23 15:20 Chloride 99 mmol/L (98-107) 06/21/23 15:20 Carbon Dioxide 23.0 mmol/L (21.0-32.0) 06/21/23 15:20 Anion Gap 8 (5-15) 06/21/23 15:20 BUN 48 mg/dL (7-18) H 06/21/23 15:20 Creatinine 1.62 mg/dL (0.55-1.02) H 06/21/23 15:20 Est GFR (MDRD) Af Amer 41 mL/min (>60) L 06/21/23 15:20 Est GFR (MDRD) Non-Af 34 mL/min (>60) L 06/21/23 15:20 BUN/Creatinine Ratio 29.6 RATIO (10-20) H 06/21/23 15:20 Glucose 316 mg/dL (74-106) H 06/21/23 15:20 Microbiology Microbiology: Microbiology 06/21/23 08:20 Fluid - Synovial (joint) Gram Stain - Final Dosing Weight Weight used for dosin.8 kg Estimated Creatinine Clearance Estimated Creatinine Clearance: 52.7 Pharmacy Plan for Drug Dosing Pharmacy Plan for Drug Dosing: Pharmacy Service will continue to monitor and adjust dosing as required. Follow-Up Labs Follow-Up Labs: [place]: Vancomycin Date/Time Labs Ordered Labs to be done on [date and time ordered]: 06/23 @ 1100 06/22/23137 <Electronically signed by Nj D Youngb lood> Date _ Nj Larsonigner Signature (if applicable): Date CC: ~ Signed [facility] Work Phone: 1(133) 113-930210-10-2023 Progress note Author Yajaira Bryan [facility] June 21, 2023 12:27pm Note Date/Time June 21, 2023 1 2:08pm [facility] Medical Records Department [address] [place] [address] Progress Note - Hospitalist 06/21/23 1154 MR#: [id number] Acct: [id number] Name: CAMILLE GARDINER Rep #:[id number] : 1960 62 From: Yajaira Bryan DO PCP: Dr. Nando Esposito MD Status: ADM IN Location: [place] [address] Reason for Visit Reason for Visit: Left knee pain/swelling Subjective Subjective Ms. Gardiner is a 62-year-old female who sustained a knee injury about a week ago after she twisted it and she came to the emergency department she was treated and discharged with a referral to orthopedic surgery. She saw orthopedic surgery on06/16/2023 and received a Kenalog shot in her left knee at the orthopedic surgeons office. She followed up with Dr. Moreno yesterday on the day of presentation due to increased pain reporting she could hardly walk or move her left knee. She was evaluated and denied any fevers, chills, sweats or flulike symptoms and had been using ice. She is on Eliquis at baseline. At that time they felt it was an acute flare reaction and placed her on a methylprednisolone pack. She unfortunately had ongoing pain and came to the emergency department last evening. At presentation she was found to have a significant leukocytosis with a white count of 19.1 and a left shift showing a 81.3% neutrophilia. Her ESR was greater than 130. Her chemistry showed mild hyponatremia with a sodium of 130 and her serum creatinine was mildly elevated from her baseline at 1.90 (baseline 1.4-1.75). Her glucose was 190 and her CRP was 126. She also complained of some chest pain after she received a dose of morphine the emergency department and her troponins were cycled and negative and her EKG was unremarkable. Her chest pain has since resolved and she has had no further episodes. She was seen by orthopedic surgery this morning and an arthrocentesis was performed. We started broad-spectrum antibiotics with cefepime due to penicillin allergy and vancomycin after the arthrocentesis was performed. Patient is having ongoing pain in that knee and we are awaiting studies to see if she needs to proceed with surgical intervention or not. Surgery has asked meto make her n.p.o. Objective Data Objective Data Vital Signs: Vital Signs Temp Pulse Resp BP Pulse Ox O2 Del Method 99.0 F 80 15 164/91 H 98 Room Air 06/21/23 08:29 06/21/23 08:38 06/21/23 08:29 06/21/23 08:29 06/21/23 08:29 06/21/23 10:00 Oxygen Delivery Method Room Air Weight: 95.8 kg Body Mass Index (BMI) 37.4 Intake & Output: Intake and Output for Last 24 Hours 06/19/23 06/20/23 06/21/23 23:59 23:59 23:59 Intake Total 150 / 150 Output Total 400 / 400 Balance -250 / -250 Lab / Micro Data 06/21/23 03:51 06/21/23 03:51 Labs: Laboratory Results - last 24 hr 06/20/23 23:10: Urine Color Yellow, Urine Clarity Clear, Urine pH 7.0, Ur Specific [place] 1.010, Urine Protein 500 H, Urine Glucose (UA) 1000 H, Urine Ketones 5 H, Urine Occult Blood 25 H, Urine Nitrite Negative, Urine Bilirubin Negative, Urine Urobilinogen Normal, Ur Leukocyte Esterase 500 H, Urine RBC 0 SEEN, Urine WBC 25-50 SEEN, Ur Squamous Epith Cells 0-5 SEEN, Urine Bacteria 1+,Urine Mucus 0 SEEN 06/21/23 00:04: WBC 19.1 H, RBC 5.35, Hgb 16.1 H, Hct 50.2 H, MCV 93.8, MCH 30.1, MCHC 32.1, RDW Std Deviation 42.1, RDW Coeff of Patricia 12.1, Plt Count 361, MPV 9.3, Immature Gran % (Auto) 0.800, Neut % (Auto) 81.3 H, Lymph % (Auto) 6.6 L, [place] % (Auto) 11.0 H, Eos % (Auto) 0.0, Baso % (Auto) 0.3, Absolute Neuts (auto) 15.5 H, Absolute Lymphs (auto) 1.27, Nucleated RBC % 0, Differential Comment SCANNED, Diff Path Review January foll, ESR > 130 H, Sodium 130 L, Potassium4.8, Chloride 94 L, Carbon Dioxide 28.0, Anion Gap 8, BUN 44 H, Creatinine 1.90 H, Est GFR (MDRD) Af Amer 34 L, Est GFR (MDRD) Non-Af 29 L, BUN/Creatinine Ratio23.2 H, Glucose 190 H, Calcium 9.5, Total Bilirubin 0.70, Direct Bilirubin 0.24,AST 15, ALT 39, Alkaline Phosphatase 121 H, C-React Prot Ext Range 126.00 H, Total Protein 8.8 H, Albumin 3.3, Globulin 5.5 H, Acetaminophen < 2.0 L 06/21/23 00:50: Troponin I High Sens 17 06/21/23 03:51: WBC 16.2 H, RBC 5.23, Hgb 15.8 H, Hct 49.4 H, MCV 94.5, MCH 30.2, MCHC 32.0, RDW Std Deviation 42.8, RDW Coeff of Patricia 12.2, Plt Count 347, MPV 9.4, Immature Gran % (Auto) 0.600, Neut % (Auto) 79.4 H, Lymph % (Auto) 8.0 L, [place] % (Auto) 11.8 H, Eos % (Auto) 0.0, Baso % (Auto) 0.2, Absolute Neuts (auto) 12.8 H, Absolute Lymphs (auto) 1.29, Nucleated RBC % 0, Differential Comment SCANNED, Diff Path Review January foll, Sodium 132 L, Potassium 5.3 H, Chloride 96 L, Carbon Dioxide 27.0, Anion Gap 9, BUN 44 H, Creatinine 1.70 H, Estim Creat Clear Calc 28.75, Est GFR (MDRD) Af Amer 39 L, Est GFR (MDRD) Non-Af32 L, BUN/Creatinine Ratio 25.9 H, Glucose 232 H, Calcium 8.8, Troponin I High Sens 19 06/21/23 06:57: POC Glucose 199 H 06/21/23 08:20: Synovial Source TNP, Synovial Color Red, Synovial Appearance Cloudy, Synovial Viscosity Liquid, Synovial WBC 77.8200 H, Synovial RBC 0.310 H, Synovial Tot Cell Ct 77.9100 H, Synov Polynuclear WBCs 6.958, Synov Mononuclear WBCs 0.824, Synovial Neutrophils 98 H, Synovial Lymphocytes 1, Synovial Other Cells 1, Synovial Polynuclear % 89.4, Synovial Mononuclear % 10.6, Synovial PathComment May follow Micro: Microbiology 06/21/23 08:20 Fluid - Synovial (joint) Gram Stain - Final Radiography Diagnostic Testing: Radiology Impression Chest X-Ray 06/21/23 00:44 IMPRESSION: No radiographic evidence of acute cardiopulmonary disease. Electronically Signed: Emy Gonsalez MD at 1:20 EDT , Rhythm Strip Rhythm Strip: Sinus Rhythm Rate: 75 Ectopy: None Physical Exam Const alert, oriented x3, no apparent distress and well nourished Constitutional Narrative: Obese, upper middle-aged, white female, sitting up in bed, at bedside, patient appears comfortable currently and nontoxic HEENT head/scalp atraumatic and moist oral mucous membranes HEENT Narrative: Mallampati 3, no thrush Head and Scalp: normocephalic Resp normal respiratory effort, no retractions and no use of accessory muscles Cardio S1 normal heart sound, S2 normal heart sound, no murmurs, no rub, no gallops andno clicks Cardio Narrative: Rate controlled irregular irregular rhythm GI normal to inspection, nondistended, normoactive bowel sounds, soft to palpation and non-tender Extremity Negative for full ROM Extremity Narrative: Left knee with Yoel bandage in place but effusion appears to be present. Tender with active and passive range of motion, no significant increase tissue temperature, no significant edema in lower extremities, no cyanosis or clubbing Neuro oriented x3, moves all extremities and no focal motor deficits Neuro Narrative: Decreased ability to move left knee due to pain Speech: speech normal Psych affect normal Psych Narrative: Very pleasant, interacts appropriately Assessment & Plan Assessment/Plan (1) Septic joint of left knee joint: (2) Chest pain: QUALIFIERS: Chest pain type: unspecified Qualified Code(s): R07.9- Chest pain, unspecified (3) UTI (urinary tract infection): QUALIFIERS: Urinary tract infection type: acute cystitis Hematuria presence: without hematuria Qualified Code(s): N30.00 - Acute cystitis without hematuria (4) Leukocytosis: (5) Hyperkalemia: PLAN: Plan Septic joint left knee -Arthrocentesis done this morning -Significantly elevated cell count and Gram stain is showing gram-positive cocciin clusters -Continue cefepime and add vancomycin per discussion with infectious disease -Continue to hold Eliquis until okay to restart per orthopedic surgery -Continue as needed pain medication -As needed medication for bowel regimen -Weightbearing and therapy per orthopedic surgery recommendations -Infectious disease consultation pending--> discussed with Dr. Oliveros and he would like her on vancomycin to cover possible Staph aureus as well as Cefepime for now -Blood cultures are pending Leukocytosis -Likely related the above -Antibiotics as no -Await cultures Urinary tract infection -Patient with urinary frequency that was atypical for her but no dysuria -UA is consistent with infection -Cultures pending -Continue IV antibiotics as noted above and await cultures and sensitivities Hyperkalemia -Patient is not on any potassium supplementation currently as her home medication was held and there is no documentation that this is hemolyzed -Renal function is at her baseline -Repeat BMP today at 1300 DM-2 -Patient is on Farxiga at baseline we will substitute Jardiance while hospitalized -Continue home insulin 12 units nightly -Once on p.o. diet after surgery restart home log with meals 20 units -SSI -Accu-Cheks as ordered -Check hemoglobin A1c Persistent atrial fibrillation -Continue home amiodarone -Restart home apixaban when okay per orthopedic surgery -Continue home metoprolol CKD stage IIIb -Baseline serum creatinine appears to be between 1.4 and 1.65 -Current serum creatinine 1.7 -We will continue home diuresis but monitor closely -Suspect baseline renal dysfunction is related to diabetic nephropathy Hyponatremia -Mild and appears to be somewhat chronic -Continue home Lasix -Trending up -Continue to monitor Hyperlipidemia -Continue home atorvastatin Insomnia -Continue home trazodone Obesity -BMI 37.4 -Would benefit from weight loss -Complicates treatment, prognosis, outcomes DVT prophylaxis -SCDs for now -We will restart Eliquis when okay with orthopedic surgery CODE STATUS -Full code 06/21/23 1227 <Electronically signed by Yajaira Bryan DO> Cosigner Signature (if applicable): CC: ~ Signed [facility] Work Phone: 1(989) 137-697310-10-2023 History and physical note Author Anatoliy Moreno [facility] June 21, 2023 11:51am Note Date/Time June 21, 2023 1 1:51am [facility] Medical Records Department [address] [place] [address] History & Physical Exam 06/21/23 1148 MR#: [id number] Acct: [id number] Name: CAMILLE GARDINER Rep #:[id number] : 1960 62 From: Anatoliy Moreno MD PCP: Dr. Nando Esposito MD Status: ADM IN Location: [place] [address] HPI - General General Date of Admission: 06/21/23 Chief Complaint: Left knee pain HPI Narrative CAMILLE GARDINER, is a 62 F who presents for possible left septic knee. [facility] Medical History (Updated 06/21/23 @ 08:36 by nAatoliy Moreno MD) Atrial fibrillation, new onset Atypical chest pain Cardiomyopathy Chest pain CHF (congestive heart failure) CVA (cerebral vascular accident) Effusion, left knee Finger lesion HLD (hyperlipidemia) Hypertension Hypertensive urgency Menopausal and female climacteric states Migraine headache Obesity Osteoarthritis of left knee Type II diabetes mellitus Home Medications duloxetine 60 mg capsule,delayed release 120 mg PO QHS mental health 11/08/21 [History Last Taken Unknown] acetaminophen 325 mg tablet (Tylenol) 650 mg (2 x 325 mg) PO Q4H PRN PRN Fever, pain 1-06/21 #0 tabs 09/17/22 [Rx Last Taken Unknown] ferrous sulfate 325 mg (65 mg iron) tablet (FeroSul) 325 mg PO DAILY@1200 #0 tabs 09/17/22 [Rx Last Taken Unknown] potassium chloride 10 mEq capsule,extended release 10 meq PO DAILY supplement #30 caps 09/17/22 [Rx Last Taken Unknown] apixaban 5 mg tablet (Eliquis) 5 mg PO BID #180 tabs 11/04/22 [Rx Last Taken Unknown] atorvastatin 40 mg tablet 40 mg PO QHS cholesterol #90 tabs 11/04/22 [Rx Last Taken Unknown] dapagliflozin propanediol 10 mg tablet (Farxiga) 10 mg PO DAILY #90 tabs 02/09/23 [Rx Last Taken Unknown] amiodarone 200 mg tablet 200 mg PO DAILY 05/09/23 [History Last Taken Unknown] furosemide 40 mg tablet 40 mg PO DAILY 05/09/23 [History Last Taken Unknown] insulin lispro 100 unit/mL subcutaneous pen (Humalog KwikPen (U-100) Insulin) 20unit (0.2 mL) subcut TID diabetes #54 mL 05/09/23 [Rx Last Taken Unknown] magnesium 250 mg tablet 500 mg PO DAILY supplement 05/09/23 [History Last Taken Unknown] mecobalamin (vitamin B12) 5,000 mcg disintegrating tablet 5,000 mcg PO DAILY supplement 05/09/23 [History Last Taken Unknown] trazodone 100 mg tablet 100 mg PO DAILY insomnia 05/09/23 [History Last Taken Unknown] dulaglutide 0.75 mg/0.5 mL subcutaneous pen injector (Trulicity) 0.75 mg (0.5 mL) subcut QWEEK #2 mL 05/18/23 [Rx Last Taken Unknown] metoprolol succinate 50 mg tablet,extended release 24 hr 50 mg PO DAILY #90 tabs06/07/23 [Rx Last Taken Unknown] methylprednisolone 4 mg tablets in a dose pack (Medrol (Bird)) See Rx Instructions PO PER PKG DIR steroid for knee #21 tabs 06/20/23 [Rx Last Taken 06/20/23] insulin glargine 100 unit/mL (3 mL) subcutaneous pen (Lantus Solostar U-100 Insulin) 12 unit subcut QHS diabetes 06/21/23 [History Last Taken Unknown] nystatin 100,000 unit/gram topical powder (Nyamyc) 1 applic topical BID PRN redness 06/21/23 [History Last Taken Unknown] Allergy/AdvReac Type Severity Reaction Status Date / Time ampicillin Allergy Intermediate Hives Verified 06/21/23 04:52 levofloxacin [From Levaquin] Allergy Other Verified 06/20/23 22:57 Penicillins Allergy Hives Verified 06/20/23 22:57 ampicillin Allergy Intermediate Hives Uncoded 06/20/23 13:04 Family History Mother Diabetes Psoriatic arthritis Rheumatoid arthritis Father COPD (chronic obstructive pulmonary disease) With concurrent tobacco use history. Myocardial infarction Heart disease Surgical History History of foot surgery Social History adopted: No household members: spouse housing: house number of children: 0 current occupational status: employed current occupation: works at [employer] pets and animals: Yes (kittens, dogs, horses) Smoking Status: Never smoker alcohol intake: never substance use type: does not use caffeine: Yes (occasionally) Type: carbonated beverages and coffee Vital Signs Vital Signs Vital Signs: 06/20/23 22:55 06/21/23 01:00 06/21/23 01:37 Temperature 98.0 F Temperature Source Temporal Pulse Rate 80 80 84 Pulse Strength Respiratory Rate 18 17 16 Respiratory Effort Respiratory Depth Respiratory Pattern Blood Pressure 167/90 H 182/99 H 167/99 H Blood Pressure Mean 115 125 121 Blood Pressure Source Blood Pressure Position Blood Pressure Location Pulse Ox 99 92 Oxygen Delivery Method Room Air Room Air 06/21/23 00:45 06/21/23 02:00 06/21/23 02:32 Temperature 98.2 F 98.2 F Temperature Source Oral Oral Pulse Rate 80 80 Pulse Strength Respiratory Rate 16 16 Respiratory Effort Respiratory Depth Respiratory Pattern Blood Pressure 168/98 H 168/98 H Blood Pressure Mean 121 121 Blood Pressure Source Blood Pressure Position Blood Pressure Location Pulse Ox 98 98 Oxygen Delivery Method Room Air 06/21/23 03:43 06/21/23 03:40 06/21/23 03:43 Temperature 99.4 F H 99.4 F H Temperature Source Oral Temporal Pulse Rate 80 80 Pulse Strength Respiratory Rate 17 17 Respiratory Effort Normal Non-Labored Respiratory Depth Normal Respiratory Pattern Normal Blood Pressure 173/68 H 173/68 H Blood Pressure Mean 103 103 Blood Pressure Source Monitor Blood Pressure Position Semi-Fowlers Blood Pressure Location Left Arm Pulse Ox 97 97 Oxygen Delivery Method Room Air Room Air Room Air 06/21/23 07:26 06/21/23 08:29 06/21/23 08:38 Temperature 99.0 F Temperature Source Oral Pulse Rate 80 80 Pulse Strength Respiratory Rate 15 Respiratory Effort Respiratory Depth Respiratory Pattern Blood Pressure 164/91 H Blood Pressure Mean 115 Blood Pressure Source Blood Pressure Position Blood Pressure Location Pulse Ox 96 98 Oxygen Delivery Method Room Air Room Air 06/21/23 10:00 06/21/23 10:00 Temperature Temperature Source Pulse Rate Pulse Strength Normal (2+) Respiratory Rate Respiratory Effort Normal Respiratory Depth Respiratory Pattern Blood Pressure Blood Pressure Mean Blood Pressure Source Blood Pressure Position Blood Pressure Location Pulse Ox Oxygen Delivery Method Room Air Weight Weight: 211 lb 3.245 oz Body Mass Index (BMI) 37.4 Results Lab / Micro Data 06/21/23 03:51 06/21/23 03:51 Labs: Laboratory Results - last 24 hr 06/20/23 23:10: Urine Color Yellow, Urine Clarity Clear, Urine pH 7.0, Ur Specific [place] 1.010, Urine Protein 500 H, Urine Glucose (UA) 1000 H, Urine Ketones 5 H, Urine Occult Blood 25 H, Urine Nitrite Negative, Urine Bilirubin Negative, Urine Urobilinogen Normal, Ur Leukocyte Esterase 500 H, Urine RBC 0 SEEN, Urine WBC 25-50 SEEN, Ur Squamous Epith Cells 0-5 SEEN, Urine Bacteria 1+,Urine Mucus 0 SEEN 06/21/23 00:04: WBC 19.1 H, RBC 5.35, Hgb 16.1 H, Hct 50.2 H, MCV 93.8, MCH 30.1, MCHC 32.1, RDW Std Deviation 42.1, RDW Coeff of Patricai 12.1, Plt Count 361, MPV 9.3, Immature Gran % (Auto) 0.800, Neut % (Auto) 81.3 H, Lymph % (Auto) 6.6 L, [place] % (Auto) 11.0 H, Eos % (Auto) 0.0, Baso % (Auto) 0.3, Absolute Neuts (auto) 15.5 H, Absolute Lymphs (auto) 1.27, Nucleated RBC % 0, Differential Comment SCANNED, Diff Path Review January, ESR > 130 H, Sodium 130 L, Potassium4.8, Chloride 94 L, Carbon Dioxide 28.0, Anion Gap 8, BUN 44 H, Creatinine 1.90 H, Est GFR (MDRD) Af Amer 34 L, Est GFR (MDRD) Non-Af 29 L, BUN/Creatinine Ratio23.2 H, Glucose 190 H, Calcium 9.5, Total Bilirubin 0.70, Direct Bilirubin 0.24,AST 15, ALT 39, Alkaline Phosphatase 121 H, C-React Prot Ext Range 126.00 H, Total Protein 8.8 H, Albumin 3.3, Globulin 5.5 H, Acetaminophen < 2.0 L 06/21/23 00:50: Troponin I High Sens 17 06/21/23 03:51: WBC 16.2 H, RBC 5.23, Hgb 15.8 H, Hct 49.4 H, MCV 94.5, MCH 30.2, MCHC 32.0, RDW Std Deviation 42.8, RDW Coeff of Patricia 12.2, Plt Count 347, MPV 9.4, Immature Gran % (Auto) 0.600, Neut % (Auto) 79.4 H, Lymph % (Auto) 8.0 L, [place] % (Auto) 11.8 H, Eos % (Auto) 0.0, Baso % (Auto) 0.2, Absolute Neuts (auto) 12.8 H, Absolute Lymphs (auto) 1.29, Nucleated RBC % 0, Differential Comment SCANNED, Diff Path Review January, Sodium 132 L, Potassium 5.3 H, Chloride 96 L, Carbon Dioxide 27.0, Anion Gap 9, BUN 44 H, Creatinine 1.70 H, Estim Creat Clear Calc 28.75, Est GFR (MDRD) Af Amer 39 L, Est GFR (MDRD) Non-Af32 L, BUN/Creatinine Ratio 25.9 H, Glucose 232 H, Calcium 8.8, Troponin I High Sens 19 06/21/23 06:57: POC Glucose 199 H 06/21/23 08:20: Synovial Source TNP, Synovial Color Red, Synovial Appearance Cloudy, Synovial Viscosity Liquid, Synovial WBC 77.8200 H, Synovial RBC 0.310 H,Synovial Tot Cell Ct 77.9100 H, Synov Polynuclear WBCs 6.958, Synov Mononuclear WBCs 0.824, Synovial Neutrophils 98 H, Synovial Lymphocytes 1, Synovial Other Cells 1, Synovial Polynuclear % 89.4, Synovial Mononuclear % 10.6, Synovial PathComment May follow Micro: Microbiology 06/21/23 08:20 Fluid - Synovial (joint) Gram Stain - Final Rhythm Strip Rhythm Strip: Sinus Rhythm Rate: 75 Ectopy: None Radiology Impression Chest X-Ray 06/21/23 00:44 IMPRESSION: No radiographic evidence of acute cardiopulmonary disease. Electronically Signed: Emy Gonsalez MD at 1:20 EDT Reading Location ID and State: [facility] / [place] Tel , Service support , Assessment & Plan Assessment/Plan (1) Effusion, left knee: PLAN: 62-year-old female with left knee swelling and more pain recently increased plus cell count >50k and positive Gram stain I have gone ahead and discussed with the patient and nursing staff about going ahead with emergent left knee irrigation and debridement arthroscopically. I think given the evidence here that would be the safest course of action to prevent cartilage damage, although surgery does have its own set of unique risks. I have marked the left knee no changes to history and physical exam. Patient wants to go ahead with surgery understands the risks and we will proceed with the case anesthesia also aware of the patient to be at this morning that the case is emergent. I switched the antibiotics to linezolid and discontinue the other antibiotics which were not yet given and asked the nurse to send the back to thepharmacy. Linezolid should offer good broad-spectrum coverage immediate therapeutic levels (plan to give after intra op cultures) and I also spoke with the hospitalist Dr. Olson on the phone and asked them to get infectious disease involved today on the case. They understood no further questions or concerns. Pros and cons risks and benefits were discussed with the patient including but not limited to infection, pain, stiffness, bleeding, damage to surrounding structures, neurovascular injury, recurrence or retear, failure or wear of hardware or fixation, instability, fracture, deep vein thrombosis and pulmonary embolism, anesthetic risks, , patient dissatisfaction, need for further surgery and other risks. Patient understood and wished to proceed with surgery,and signed the informed consent documentation. 06/21/23 1151 <Electronically signed by Anatoliy Moreno MD> Cosigner Signature (if applicable): CC: Dr. Nando Esposito MD; Dr. Anatoliy Moreno MD~ Signed [facility] Work Phone: 1(315) 447-708410-10-2023 Procedure [facility] 06-21-2023 Progress note Author Anatoliy Moreno [facility] June 21, 2023 10:15am Note Date/Time June 21, 2023 1 0:13am [facility] Medical Records Department [address] [place] [address] Progress Note - Orthopedic 06/21/23 1012 MR#: [id number] Acct: [id number] Name: CAMILLE GARDINER Rep #:[id number] : 1960 62 From: Anatoliy Moreno MD PCP: Dr. Nando Esposito MD Status: ADM IN Location: [place] [address] Objective Data Objective Data Vital Signs: Vital Signs Temp Pulse Resp BP Pulse Ox O2 Del Method 99.0 F 80 15 164/91 H 98 Room Air 06/21/23 08:29 06/21/23 08:38 06/21/23 08:29 06/21/23 08:29 06/21/23 08:29 06/21/23 08:29 Oxygen Delivery Method Room Air Weight: 211 lb 3.245 oz Body Mass Index (BMI) 37.4 Intake & Output: Intake and Output for Last 24 Hours 06/19/23 06/20/23 06/21/23 23:59 23:59 23:59 Intake Total 150 / 150 Output Total 400 / 400 Balance -250 / -250 Lab / Micro Data 06/21/23 03:51 06/21/23 03:51 Labs: Laboratory Results - last 24 hr 06/20/23 23:10: Urine Color Yellow, Urine Clarity Clear, Urine pH 7.0, Ur Specific [place] 1.010, Urine Protein 500 H, Urine Glucose (UA) 1000 H, Urine Ketones 5 H, Urine Occult Blood 25 H, Urine Nitrite Negative, Urine Bilirubin Negative, Urine Urobilinogen Normal, Ur Leukocyte Esterase 500 H, Urine RBC 0 SEEN, Urine WBC 25-50 SEEN, Ur Squamous Epith Cells 0-5 SEEN, Urine Bacteria 1+, Urine Mucus0 SEEN 06/21/23 00:04: WBC 19.1 H, RBC 5.35, Hgb 16.1 H, Hct 50.2 H, MCV 93.8, MCH 30.1, MCHC 32.1, RDW Std Deviation 42.1, RDW Coeff of Patricia 12.1, Plt Count 361, MPV 9.3, Immature Gran % (Auto) 0.800, Neut % (Auto) 81.3 H, Lymph % (Auto) 6.6 L, [place] % (Auto) 11.0 H, Eos % (Auto) 0.0, Baso % (Auto) 0.3, Absolute Neuts (auto) 15.5 H, Absolute Lymphs (auto) 1.27, Nucleated RBC % 0, Differential Comment SCANNED, Diff Path Review January foll, ESR > 130 H, Sodium 130 L, Potassium4.8, Chloride 94 L, Carbon Dioxide 28.0, Anion Gap 8, BUN 44 H, Creatinine 1.90 H, Est GFR (MDRD) Af Amer 34 L, Est GFR (MDRD) Non-Af 29 L, BUN/Creatinine Ratio23.2 H, Glucose 190 H, Calcium 9.5, Total Bilirubin 0.70, Direct Bilirubin 0.24,AST 15, ALT 39, Alkaline Phosphatase 121 H, C-React Prot Ext Range 126.00 H, Total Protein 8.8 H, Albumin 3.3, Globulin 5.5 H, Acetaminophen < 2.0 L 06/21/23 00:50: Troponin I High Sens 17 06/21/23 03:51: WBC 16.2 H, RBC 5.23, Hgb 15.8 H, Hct 49.4 H, MCV 94.5, MCH 30.2, MCHC 32.0, RDW Std Deviation 42.8, RDW Coeff of Patricia 12.2, Plt Count 347, MPV 9.4, Immature Gran % (Auto) 0.600, Neut % (Auto) 79.4 H, Lymph % (Auto) 8.0 L, [place] % (Auto) 11.8 H, Eos % (Auto) 0.0, Baso % (Auto) 0.2, Absolute Neuts (auto) 12.8 H, Absolute Lymphs (auto) 1.29, Nucleated RBC % 0, Differential Comment SCANNED, Diff Path Review January foll, Sodium 132 L, Potassium 5.3 H, Chloride 96 L, Carbon Dioxide 27.0, Anion Gap 9, BUN 44 H, Creatinine 1.70 H, Estim Creat Clear Calc 28.75, Est GFR (MDRD) Af Amer 39 L, Est GFR (MDRD) Non-Af32 L, BUN/Creatinine Ratio 25.9 H, Glucose 232 H, Calcium 8.8, Troponin I High Sens 19 06/21/23 06:57: POC Glucose 199 H 06/21/23 08:20: Synovial Source TNP, Synovial Color Red, Synovial Appearance Cloudy, Synovial Viscosity Liquid, Synovial WBC 77.8200 H, Synovial RBC 0.310 H,Synovial Tot Cell Ct 77.9100 H, Synov Polynuclear WBCs 6.958, Synov Mononuclear WBCs 0.824, Synovial Neutrophils 98 H, Synovial Lymphocytes 1, Synovial Other Cells 1, Synovial Polynuclear % 89.4, Synovial Mononuclear % 10.6, Synovial PathComment May follow Micro: Microbiology 06/21/23 08:20 Fluid - Synovial (joint) Gram Stain - Final Radiography Diagnostic Testing: Radiology Impression Chest X-Ray 06/21/23 00:44 IMPRESSION: No radiographic evidence of acute cardiopulmonary disease. Electronically Signed: Emy Gonsalez MD at 1:20 EDT , Rhythm Strip Rhythm Strip: Sinus Rhythm Rate: 75 Ectopy: None Assessment & Plan Assessment/Plan (1) Effusion, left knee: PLAN: 62 F L knee pain increasing, swelling, warmth, cell count 77k unable to test for crystals,crp over 100 and rare gram positive cocci in clusters on stat gram stain, at this point it would be indicated for emergent I and D. I have letthe nurse know to keep the patient NPO, made the OR aware. Next available time is today at noon and I will come over to book the patient for L knee scope I andD, take additional cultures then. 06/21/23 1015 <Electronically signed by Anatoliy Moreno MD> Cosigner Signature (if applicable): CC: ~ Signed [facility] Work Phone: 1(915) 437-842610-10-2023 Progress note Author Anatoliy Moreno [facility] June 21, 2023 9:46am Note Date/Time June 21, 2023 9 :46am [facility] Medical Records Department [address] [place] [address] Progress Note - Orthopedic 06/21/23 0943 MR#: [id number] Acct: [id number] Name: CAMILLE GARDINER Rep #:[id number] : 1960 62 From: Anatoliy Moreno MD PCP: Dr. Nando Esposito MD Status: ADM IN Location: [place] [address] Subjective Subjective FU L knee pain and swelling Objective Data Objective Data Vital Signs: Vital Signs Temp Pulse Resp BP Pulse Ox O2 Del Method 99.0 F 80 15 164/91 H 98 Room Air 06/21/23 08:29 06/21/23 08:38 06/21/23 08:29 06/21/23 08:29 06/21/23 08:29 06/21/23 08:29 Oxygen Delivery Method Room Air Weight: 211 lb 3.245 oz Body Mass Index (BMI) 37.4 Intake & Output: Intake and Output for Last 24 Hours 06/19/23 06/20/23 06/21/23 23:59 23:59 23:59 Intake Total 150 / 150 Output Total 400 / 400 Balance -250 / -250 Lab / Micro Data 06/21/23 03:51 06/21/23 03:51 Labs: Laboratory Results - last 24 hr 06/20/23 23:10: Urine Color Yellow, Urine Clarity Clear, Urine pH 7.0, Ur Specific [place] 1.010, Urine Protein 500 H, Urine Glucose (UA) 1000 H, Urine Ketones 5 H, Urine Occult Blood 25 H, Urine Nitrite Negative, Urine Bilirubin Negative, Urine Urobilinogen Normal, Ur Leukocyte Esterase 500 H, Urine RBC 0 SEEN, Urine WBC 25-50 SEEN, Ur Squamous Epith Cells 0-5 SEEN, Urine Bacteria 1+,Urine Mucus 0 SEEN 06/21/23 00:04: WBC 19.1 H, RBC 5.35, Hgb 16.1 H, Hct 50.2 H, MCV 93.8, MCH 30.1, MCHC 32.1, RDW Std Deviation 42.1, RDW Coeff of Patricia 12.1, Plt Count 361, MPV 9.3, Immature Gran % (Auto) 0.800, Neut % (Auto) 81.3 H, Lymph % (Auto) 6.6 L, [place] % (Auto) 11.0 H, Eos % (Auto) 0.0, Baso % (Auto) 0.3, Absolute Neuts (auto) 15.5 H, Absolute Lymphs (auto) 1.27, Nucleated RBC % 0, Differential Comment SCANNED, Diff Path Review January foll, ESR > 130 H, Sodium 130 L, Potassium4.8, Chloride 94 L, Carbon Dioxide 28.0, Anion Gap 8, BUN 44 H, Creatinine 1.90 H, Est GFR (MDRD) Af Amer 34 L, Est GFR (MDRD) Non-Af 29 L, BUN/Creatinine Ratio23.2 H, Glucose 190 H, Calcium 9.5, Total Bilirubin 0.70, Direct Bilirubin 0.24,AST 15, ALT 39, Alkaline Phosphatase 121 H, C-React Prot Ext Range 126.00 H, Total Protein 8.8 H, Albumin 3.3, Globulin 5.5 H, Acetaminophen < 2.0 L 06/21/23 00:50: Troponin I High Sens 17 06/21/23 03:51: WBC 16.2 H, RBC 5.23, Hgb 15.8 H, Hct 49.4 H, MCV 94.5, MCH 30.2, MCHC 32.0, RDW Std Deviation 42.8, RDW Coeff of Patricia 12.2, Plt Count 347, MPV 9.4, Immature Gran % (Auto) 0.600, Neut % (Auto) 79.4 H, Lymph % (Auto) 8.0 L, [place] % (Auto) 11.8 H, Eos % (Auto) 0.0, Baso % (Auto) 0.2, Absolute Neuts (auto) 12.8 H, Absolute Lymphs (auto) 1.29, Nucleated RBC % 0, Differential Comment SCANNED, Diff Path Review January foll, Sodium 132 L, Potassium 5.3 H, Chloride 96 L, Carbon Dioxide 27.0, Anion Gap 9, BUN 44 H, Creatinine 1.70 H, Estim Creat Clear Calc 28.75, Est GFR (MDRD) Af Amer 39 L, Est GFR (MDRD) Non-Af32 L, BUN/Creatinine Ratio 25.9 H, Glucose 232 H, Calcium 8.8, Troponin I High Sens 19 06/21/23 06:57: POC Glucose 199 H 06/21/23 08:20: Synovial WBC 77.8200 H, Synovial RBC 0.310 H, Synovial Tot Cell Ct 77.9100 H, Synov Polynuclear WBCs 6.958, Synov Mononuclear WBCs 0.824, Synovial Polynuclear % 89.4, Synovial Mononuclear % 10.6 Radiography Diagnostic Testing: Radiology Impression Chest X-Ray 06/21/23 00:44 IMPRESSION: No radiographic evidence of acute cardiopulmonary disease. Electronically Signed: Emy Gonsalez MD at 1:20 EDT Reading Location ID and State: [facility] / [place] Tel , Service support , Rhythm Strip Rhythm Strip: Sinus Rhythm Rate: 75 Ectopy: None Assessment & Plan Assessment/Plan (1) Effusion, left knee: PLAN: 62 F left knee pain, following along, cell count 77k but not enough fluid to run a crystal so gout / pseudogout still in the differential here. Gram stainshould be ready in 15 minutes per the lab. Spoke with hospitalist, will start broad spec antibiotics to cover MRSA in case septic joint. Holding eliquis. Traditionally over 50k would be diagnostic for septic joint but new literature puts that into question. Asked to make patient NPO. Will follow up on stat gram stain before making final decision on whether or not to take to the OR for I andD. 06/21/23 0946 <Electronically signed by Anatoliy Moreno MD> Cosigner Signature (if applicable): CC: ~ Signed [facility] Work Phone: 1(701) 200-429010-10-2023 Consult note Author Anatoliy Moreno [facility] June 21, 2023 8:40am Note Date/Time June 21, 2023 8 :40am [facility] Medical Records Department [address] [place] [address] Consultation - Orthopedics 06/21/2333 MR#: [id number] Acct: [id number] Name: CAMILLE GARDINER Rep #:[id number] : 1960 62 From: Anatoliy Moreno MD PCP: Dr. Nando Esposito MD Status: ADM IN Location: [place] [address] HPI Consult Data Date of Consult: 06/21/23 HPI Narrative HPI Narrative: CAMILLE GARDINER, is a 62 F who presents with recent left knee pain. The patient was originally admitted to hospital over a week ago discharged home and then follow- up with me in clinic 4 days ago on of last week. At that point had some small trace effusion mild amount of warmth no redness drainage or other constitutional symptoms. I did a cortisone injection on they presentedto clinic on Tuesday with some more pain. Low suspicion of an infection at that point more so in keeping with an acute flare reaction. Patient has experienced the only other constitutional symptom they are having as increased urinary frequency. As well as some more knee pain now. No fevers or chills or other constitutional symptoms. I was called this morning at 730am by Giovanni with the concern that the patient could have a septic knee so a rushed over to the hospital saw the patient quarter 8. [facility] Medical History (Updated 06/21/23 @ 08:36 by Anatoliy Moreno MD) Atrial fibrillation, new onset Atypical chest pain Cardiomyopathy Chest pain CHF (congestive heart failure) CVA (cerebral vascular accident) Effusion, left knee Finger lesion HLD (hyperlipidemia) Hypertension Hypertensive urgency Menopausal and female climacteric states Migraine headache Obesity Osteoarthritis of left knee Type II diabetes mellitus Home Medications duloxetine 60 mg capsule,delayed release 120 mg PO QHS mental health 11/08/21 [History Last Taken Unknown] acetaminophen 325 mg tablet (Tylenol) 650 mg (2 x 325 mg) PO Q4H PRN PRN Fever, pain 1-06/21 #0 tabs 09/17/22 [Rx Last Taken Unknown] ferrous sulfate 325 mg (65 mg iron) tablet (FeroSul) 325 mg PO DAILY@1200 #0 tabs 09/17/22 [Rx Last Taken Unknown] potassium chloride 10 mEq capsule,extended release 10 meq PO DAILY supplement #30 caps 09/17/22 [Rx Last Taken Unknown] apixaban 5 mg tablet (Eliquis) 5 mg PO BID #180 tabs 11/04/22 [Rx Last Taken Unknown] atorvastatin 40 mg tablet 40 mg PO QHS cholesterol #90 tabs 11/04/22 [Rx Last Taken Unknown] dapagliflozin propanediol 10 mg tablet (Farxiga) 10 mg PO DAILY #90 tabs 02/09/23 [Rx Last Taken Unknown] amiodarone 200 mg tablet 200 mg PO DAILY 05/09/23 [History Last Taken Unknown] furosemide 40 mg tablet 40 mg PO DAILY 05/09/23 [History Last Taken Unknown] insulin lispro 100 unit/mL subcutaneous pen (Humalog KwikPen (U-100) Insulin) 20unit (0.2 mL) subcut TID diabetes #54 mL 05/09/23 [Rx Last Taken Unknown] magnesium 250 mg tablet 500 mg PO DAILY supplement 05/09/23 [History Last Taken Unknown] mecobalamin (vitamin B12) 5,000 mcg disintegrating tablet 5,000 mcg PO DAILY supplement 05/09/23 [History Last Taken Unknown] trazodone 100 mg tablet 100 mg PO DAILY insomnia 05/09/23 [History Last Taken Unknown] dulaglutide 0.75 mg/0.5 mL subcutaneous pen injector (Trulicity) 0.75 mg (0.5 mL) subcut QWEEK #2 mL 05/18/23 [Rx Last Taken Unknown] metoprolol succinate 50 mg tablet,extended release 24 hr 50 mg PO DAILY #90 tabs06/07/23 [Rx Last Taken Unknown] methylprednisolone 4 mg tablets in a dose pack (Medrol (Bird)) See Rx Instructions PO PER PKG DIR steroid for knee #21 tabs 06/20/23 [Rx Last Taken 06/20/23] insulin glargine 100 unit/mL (3 mL) subcutaneous pen (Lantus Solostar U-100 Insulin) 12 unit subcut QHS diabetes 06/21/23 [History Last Taken Unknown] nystatin 100,000 unit/gram topical powder (Nyamyc) 1 applic topical BID PRN redness 06/21/23 [History Last Taken Unknown] Allergy/AdvReac Type Severity Reaction Status Date / Time ampicillin Allergy Intermediate Hives Verified 06/21/23 04:52 levofloxacin [From Levaquin] Allergy Other Verified 06/20/23 22:57 Penicillins Allergy Hives Verified 06/20/23 22:57 ampicillin Allergy Intermediate Hives Uncoded 06/20/23 13:04 Family History Mother Diabetes Psoriatic arthritis Rheumatoid arthritis Father COPD (chronic obstructive pulmonary disease) With concurrent tobacco use history. Myocardial infarction Heart disease Surgical History History of foot surgery Social History adopted: No household members: spouse housing: house number of children: 0 current occupational status: employed current occupation: works at [employer] pets and animals: Yes (kittens, dogs, horses) Smoking Status: Never smoker alcohol intake: never substance use type: does not use caffeine: Yes (occasionally) Type: carbonated beverages and coffee Vital Signs Vital Signs Vital Signs: 06/20/23 22:55 06/21/23 01:00 06/21/23 01:37 Temperature 98.0 F Temperature Source Temporal Pulse Rate 80 80 84 Respiratory Rate 18 17 16 Respiratory Effort Respiratory Depth Respiratory Pattern Blood Pressure 167/90 H 182/99 H 167/99 H Blood Pressure Mean 115 125 121 Blood Pressure Source Blood Pressure Position Blood Pressure Location Pulse Ox 99 92 Oxygen Delivery Method Room Air Room Air 06/21/23 00:45 06/21/23 02:00 06/21/23 02:32 Temperature 98.2 F 98.2 F Temperature Source Oral Oral Pulse Rate 80 80 Respiratory Rate 16 16 Respiratory Effort Respiratory Depth Respiratory Pattern Blood Pressure 168/98 H 168/98 H Blood Pressure Mean 121 121 Blood Pressure Source Blood Pressure Position Blood Pressure Location Pulse Ox 98 98 Oxygen Delivery Method Room Air 06/21/23 03:43 06/21/23 03:40 06/21/23 03:43 Temperature 99.4 F H 99.4 F H Temperature Source Oral Temporal Pulse Rate 80 80 Respiratory Rate 17 17 Respiratory Effort Normal Non-Labored Respiratory Depth Normal Respiratory Pattern Normal Blood Pressure 173/68 H 173/68 H Blood Pressure Mean 103 103 Blood Pressure Source Monitor Blood Pressure Position Semi-Fowlers Blood Pressure Location Left Arm Pulse Ox 97 97 Oxygen Delivery Method Room Air Room Air Room Air 06/21/23 07:26 Temperature Temperature Source Pulse Rate Respiratory Rate Respiratory Effort Respiratory Depth Respiratory Pattern Blood Pressure Blood Pressure Mean Blood Pressure Source Blood Pressure Position Blood Pressure Location Pulse Ox 96 Oxygen Delivery Method Room Air Weight Weight: 211 lb 3.245 oz Body Mass Index (BMI) 37.4 Physical Exam Const alert and oriented x3 Extremity Extremity Narrative: Left knee looks the same as it did on Tuesday yesterday. There is a trace effusion. There is no redness or drainage. The injection site looks normal. Range of motion is little bit less today 0 to 30 degrees more painful to move. Strong pedal pulses normal sensation throughout the foot. Medical Records Data Attestation: I reviewed the patient's medical records Lab / Micro Data Attestation: I reviewed the patient's lab results. 06/21/23 03:51 06/21/23 03:51 Labs: Laboratory Results - last 24 hr 06/20/23 23:10: Urine Color Yellow, Urine Clarity Clear, Urine pH 7.0, Ur Specific [place] 1.010, Urine Protein 500 H, Urine Glucose (UA) 1000 H, Urine Ketones 5 H, Urine Occult Blood 25 H, Urine Nitrite Negative, Urine Bilirubin Negative, Urine Urobilinogen Normal, Ur Leukocyte Esterase 500 H, Urine RBC 0 SEEN, Urine WBC 25-50 SEEN, Ur Squamous Epith Cells 0-5 SEEN, Urine Bacteria 1+,Urine Mucus 0 SEEN 06/21/23 00:04: WBC 19.1 H, RBC 5.35, Hgb 16.1 H, Hct 50.2 H, MCV 93.8, MCH 30.1, MCHC 32.1, RDW Std Deviation 42.1, RDW Coeff of Patricia 12.1, Plt Count 361, MPV 9.3, Immature Gran % (Auto) 0.800, Neut % (Auto) 81.3 H, Lymph % (Auto) 6.6 L, [place] % (Auto) 11.0 H, Eos % (Auto) 0.0, Baso % (Auto) 0.3, Absolute Neuts (auto) 15.5 H, Absolute Lymphs (auto) 1.27, Nucleated RBC % 0, Differential Comment SCANNED, Diff Path Review January, ESR > 130 H, Sodium 130 L, Potassium4.8, Chloride 94 L, Carbon Dioxide 28.0, Anion Gap 8, BUN 44 H, Creatinine 1.90 H, Est GFR (MDRD) Af Amer 34 L, Est GFR (MDRD) Non-Af 29 L, BUN/Creatinine Ratio23.2 H, Glucose 190 H, Calcium 9.5, Total Bilirubin 0.70, Direct Bilirubin 0.24,AST 15, ALT 39, Alkaline Phosphatase 121 H, C-React Prot Ext Range 126.00 H, Total Protein 8.8 H, Albumin 3.3, Globulin 5.5 H, Acetaminophen < 2.0 L 06/21/23 00:50: Troponin I High Sens 17 06/21/23 03:51: WBC 16.2 H, RBC 5.23, Hgb 15.8 H, Hct 49.4 H, MCV 94.5, MCH 30.2, MCHC 32.0, RDW Std Deviation 42.8, RDW Coeff of Patricia 12.2, Plt Count 347, MPV 9.4, Immature Gran % (Auto) 0.600, Neut % (Auto) 79.4 H, Lymph % (Auto) 8.0 L, [place] % (Auto) 11.8 H, Eos % (Auto) 0.0, Baso % (Auto) 0.2, Absolute Neuts (auto) 12.8 H, Absolute Lymphs (auto) 1.29, Nucleated RBC % 0, Differential Comment SCANNED, Diff Path Review January, Sodium 132 L, Potassium 5.3 H, Chloride 96 L, Carbon Dioxide 27.0, Anion Gap 9, BUN 44 H, Creatinine 1.70 H, Estim Creat Clear Calc 28.75, Est GFR (MDRD) Af Amer 39 L, Est GFR (MDRD) Non-Af32 L, BUN/Creatinine Ratio 25.9 H, Glucose 232 H, Calcium 8.8, Troponin I High Sens 19 06/21/23 06:57: POC Glucose 199 H Rhythm Strip Rhythm Strip: Sinus Rhythm Rate: 75 Ectopy: None Radiology Impression Chest X-Ray 06/21/23 00:44 IMPRESSION: No radiographic evidence of acute cardiopulmonary disease. Electronically Signed: Emy Gonsalez MD at 1:20 EDT , Assessment & Plan Assessment/Plan (1) Osteoarthritis of left knee: PLAN: 62-year-old female with increasing left knee pain 5 days following an intra-articular cortisone injection. The concern here was raised for septic arthritis. The patient has an elevated white blood cell count with a neutrophilpredominance and increased inflammatory markers. They have been diagnosed with a UTI with increased urinary frequency, I think that can explain the mild temp of 98 and WBC, but I do think it is important to rule out a septic joint here given the concerning features. The physical exam although relatively benign and trace effusion, mild warmth, the patient does have more pain with increased white blood cell count. We discussed the pros cons risk benefits go ahead with left knee aspiration and perform that for the patient this morning. This just showed trace joint fluid with red tinge. No obvious white purulent material no foul smell. We will send this off for culture and sensitivity hopefully cell count as well on a stat basis. At this point I think it is reasonable to start antibiotics even though my clinical suspicion is still quite low of a septic arthritis given the aspiration and progression as well as the clinical exam but we will rule this out nonetheless. Left knee aspiration We discussed the pros and cons risks and benefits of going ahead with left knee aspiration. The risks include but are not limited to infection, pain, acute flare reaction, stiffness, bleedin,g damage to surrounding structures, worseningarthritis or damage to the cartilage. Did a timeout with the RN taking care of the patient. Left knee marked. The patient wished to proceed. The superolateralaspect of the knee was prepped with chlorhexidine in the usual sterile fashion. Sterile no touch technique was employed. 5 cc 1% lidocaine was injected into the soft tissue. 5 mins later, used 18 g needle and 20cc syringe, aspirated trace joint fluid blood tinged about 1-2cc. The patient tolerated procedure well. Bandage placed and yoel wrap. There is no complications. Standard post procedure care instructions were given. (2) Effusion, left knee: 06/21/23 0840 <Electronically signed by Anatoliy Moreno MD> Cosigner Signature (if applicable): CC: Dr. Nando Esposito MD; Dr. Hebert Ruiz MD; Dr. Anatoliy Moreno MD~ Signed [facility] Work Phone: 1(537) 195-954410-10-2023 History and physical note Author Hebert Ruiz [facility] June 21, 2023 7:24am Note Date/Time June 21, 2023 2 :30am [facility] Medical Records Department [address] [place] [id number] H&P Exam - Hospitalist 06/21/23 0229 MR#: [id number] Acct: [id number] Name: CAMILLE GARDINER Rep #:[id number] : 1960 62 From: Hebert Ruiz MD PCP: Dr. Nando Esposito MD Status: ADM IN Location: [facility] [id number]- [id number] HPI - General General Date of Admission: 06/21/23 Date of Service: 06/21/23 Chief Complaint: Left knee pain HPI Narrative CAMILLE GARDINER, is a 62 F with a significant history of CKD; obesity; hypertension; hyperlipidemia; atrial fibrillation cardioversion and heart failure with reducedejection fraction who presents to the emergency department with progressive worsening left knee pain that started about a week before presentation. Patient went to see Orthopedic on the same day of presentation and she was given MedrolDosepak which she took 1 dose of it. However, because her symptoms continued to worsen she came to the emergency department. Her left knee pain started about a week ago after she twisted her knee. At thattime she came to emergency department. She was treated and discharged and referred to orthopedic surgeon. On 06/16/2023 patient received a Kenalog shot in her left knee at the orthopedics surgery office. On this presentation inflammation markers were high. Emergency department doctor discussed the case with orthopedic surgeon on-call who agreed that patient should stay at the hospital for further evaluation by orthopedic. Also while at the emergency department she complained of chest pain. She reports that her chest pain started after she was given morphine. Patient also complained of urinary frequency and urgency. [facility] Medical History (Updated 06/21/23 @ 07:[address] Hebert Ruiz MD) Atrial fibrillation, new onset Atypical chest pain Cardiomyopathy Chest pain CHF (congestive heart failure) CVA (cerebral vascular accident) Finger lesion HLD (hyperlipidemia) Hypertension Hypertensive urgency Menopausal and female climacteric states Migraine headache Obesity Osteoarthritis of left knee Type II diabetes mellitus Home Medications duloxetine 60 mg capsule,delayed release 120 mg PO QHS mental health 11/08/21 [History Last Taken Unknown] acetaminophen 325 mg tablet (Tylenol) 650 mg (2 x 325 mg) PO Q4H PRN PRN Fever, pain 1-06/21 #0 tabs 09/17/22 [Rx Last Taken Unknown] ferrous sulfate 325 mg (65 mg iron) tablet (FeroSul) 325 mg PO DAILY@1200 #0 tabs 09/17/22 [Rx Last Taken Unknown] potassium chloride 10 mEq capsule,extended release 10 meq PO DAILY supplement #30 caps 09/17/22 [Rx Last Taken Unknown] apixaban 5 mg tablet (Eliquis) 5 mg PO BID #180 tabs 11/04/22 [Rx Last Taken Unknown] atorvastatin 40 mg tablet 40 mg PO QHS cholesterol #90 tabs 11/04/22 [Rx Last Taken Unknown] dapagliflozin propanediol 10 mg tablet (Farxiga) 10 mg PO DAILY #90 tabs 02/09/23 [Rx Last Taken Unknown] amiodarone 200 mg tablet 200 mg PO DAILY 05/09/23 [History Last Taken Unknown] furosemide 40 mg tablet 40 mg PO DAILY 05/09/23 [History Last Taken Unknown] insulin lispro 100 unit/mL subcutaneous pen (Humalog KwikPen (U-100) Insulin) 20unit (0.2 mL) subcut TID diabetes #54 mL 05/09/23 [Rx Last Taken Unknown] magnesium 250 mg tablet 500 mg PO DAILY supplement 05/09/23 [History Last Taken Unknown] mecobalamin (vitamin B12) 5,000 mcg disintegrating tablet 5,000 mcg PO DAILY supplement 05/09/23 [History Last Taken Unknown] trazodone 100 mg tablet 100 mg PO DAILY insomnia 05/09/23 [History Last Taken Unknown] dulaglutide 0.75 mg/0.5 mL subcutaneous pen injector (Trulicity) 0.75 mg (0.5 mL) subcut QWEEK #2 mL 05/18/23 [Rx Last Taken Unknown] metoprolol succinate 50 mg tablet,extended release 24 hr 50 mg PO DAILY #90 tabs06/07/23 [Rx Last Taken Unknown] methylprednisolone 4 mg tablets in a dose pack (Medrol (Bird)) See Rx Instructions PO PER PKG DIR steroid for knee #21 tabs 06/20/23 [Rx Last Taken 06/20/23] insulin glargine 100 unit/mL (3 mL) subcutaneous pen (Lantus Solostar U-100 Insulin) 12 unit subcut QHS diabetes 06/21/23 [History Last Taken Unknown] nystatin 100,000 unit/gram topical powder (Nyamyc) 1 applic topical BID PRN redness 06/21/23 [History Last Taken Unknown] Allergy/AdvReac Type Severity Reaction Status Date / Time ampicillin Allergy Intermediate Hives Verified 06/21/23 04:52 levofloxacin [From Levaquin] Allergy Other Verified 06/20/23 22:57 Penicillins Allergy Hives Verified 06/20/23 22:57 ampicillin Allergy Intermediate Hives Uncoded 06/20/23 13:04 Family History Mother Diabetes Psoriatic arthritis Rheumatoid arthritis Father COPD (chronic obstructive pulmonary disease) With concurrent tobacco use history. Myocardial infarction Heart disease Surgical History History of foot surgery Social History adopted: No household members: spouse housing: house number of children: 0 current occupational status: employed current occupation: works at [employer] pets and animals: Yes (kittens, dogs, horses) Smoking Status: Never smoker alcohol intake: never substance use type: does not use caffeine: Yes (occasionally) Type: carbonated beverages and coffee ROS ROS Narrative Pertinent positives and pertinent negatives as noted in HPI. All other systems were reviewed and are negative Vital Signs Vital Signs Vital Signs: 06/20/23 22:55 06/21/23 01:00 06/21/23 01:37 Temperature 98.0 F Temperature Source Temporal Pulse Rate 80 80 84 Respiratory Rate 18 17 16 Blood Pressure 167/90 H 182/99 H 167/99 H Blood Pressure Mean 115 125 121 Pulse Ox 99 92 Oxygen Delivery Method Room Air Room Air 06/21/23 00:45 Temperature 98.2 F Temperature Source Oral Pulse Rate Respiratory Rate Blood Pressure Blood Pressure Mean Pulse Ox Oxygen Delivery Method Physical Exam Narrative Physical exam: General: Well-nourished, well-developed. Head: Normocephalic, atraumatic, no tenderness Eyes: Vision is grossly intact. EOMI ENT, no trauma, moist mucous membranes, no rhinorrhea Neck: Nontender, No thyromegaly. CVS: Irregularly regular rate and rhythm. S1-S2 present. No murmur, gallop or rub. Respiratory : clear to auscultation bilaterally, chest wall nontender Abdomen: Soft, nontender, nondistended, normal bowel sounds, no masses : Deferred Back: Nontender, no CVA tenderness Extremities: Tender left knee. Nontender right knee. Nontender full range of motion, no trauma Skin: Normal color, no trauma, abrasions Neuro: Alert, oriented, cranial nerves II through XII grossly intact. Psychiatry: Normal mood. Normal affect. Not depressed. Not anxious. Results Lab / Micro Data 06/21/23 03:51 06/21/23 03:51 Labs: Laboratory Results - last 24 hr 06/20/23 23:10: Urine Color Yellow, Urine Clarity Clear, Urine pH 7.0, Ur Specific [place] 1.010, Urine Protein 500 H, Urine Glucose (UA) 1000 H, Urine Ketones 5 H, Urine Occult Blood 25 H, Urine Nitrite Negative, Urine Bilirubin Negative, Urine Urobilinogen Normal, Ur Leukocyte Esterase 500 H, Urine RBC 0 SEEN, Urine WBC 25-50 SEEN, Ur Squamous Epith Cells 0-5 SEEN, Urine Bacteria 1+,Urine Mucus 0 SEEN 06/21/23 00:04: WBC 19.1 H, RBC 5.35, Hgb 16.1 H, Hct 50.2 H, MCV 93.8, MCH 30.1, MCHC 32.1, RDW Std Deviation 42.1, RDW Coeff of Patricia 12.1, Plt Count 361, MPV 9.3, Immature Gran % (Auto) 0.800, Neut % (Auto) 81.3 H, Lymph % (Auto) 6.6 L, [place] % (Auto) 11.0 H, Eos % (Auto) 0.0, Baso % (Auto) 0.3, Absolute Neuts (auto) 15.5 H, Absolute Lymphs (auto) 1.27, Nucleated RBC % 0, Differential Comment SCANNED, Diff Path Review January, ESR > 130 H, Sodium 130 L, Potassium4.8, Chloride 94 L, Carbon Dioxide 28.0, Anion Gap 8, BUN 44 H, Creatinine 1.90 H, Est GFR (MDRD) Af Amer 34 L, Est GFR (MDRD) Non-Af 29 L, BUN/Creatinine Ratio23.2 H, Glucose 190 H, Calcium 9.5, Total Bilirubin 0.70, Direct Bilirubin 0.24,AST 15, ALT 39, Alkaline Phosphatase 121 H, C-React Prot Ext Range 126.00 H, Total Protein 8.8 H, Albumin 3.3, Globulin 5.5 H, Acetaminophen < 2.0 L 10/10/23 00:50: Troponin I High Sens 17 Rhythm Strip Rhythm Strip: Sinus Rhythm Rate: 75 Ectopy: None Radiology Impression Chest X-Ray 06/21/23 00:44 IMPRESSION: No radiographic evidence of acute cardiopulmonary disease. Electronically Signed: Emy Gonsalez MD at 1:20 EDT Reading Location ID and State: [address] [place] [address] Tel , Service support , Assessment & Plan Assessment/Plan (1) Septic arthritis: QUALIFIERS: Laterality: left Septic arthritis location: knee Septic arthritis organism: due to other bacteria Qualified Code(s): M00.862 - Arthritis due to other bacteria, left knee (2) UTI (urinary tract infection): QUALIFIERS: Hematuria presence: without hematuria Urinary tract infection type: acute cystitis Qualified Code(s): N30.00 - Acute cystitis without hematuria (3) Type II diabetes mellitus: QUALIFIERS: Diabetes mellitus complication status: with hyperglycemia Diabetes mellitus half-way insulin use: with half-way use Qualified Code(s): E11.65 - Type 2 diabetes mellitus with hyperglycemia; 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 CRP is markedly elevated at 126; ESR is markedly elevated at more than 130. ED doctor discussed case with orthopedic surgeon As needed Tylenol, as needed oxycodone; Dilaudid prn ordered for pain. Hold off patient's Eliquis since patient is a candidate of arthrocentesis. UTI Urinalysis reviewed, abnormal. 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 Follow Urine culture. Chest pain Developed after receiving morphine at the ED Received aspirin at emergency department Resolved EKG is unchanged Clinical monitoring on telemetry Troponin negative, trend Type 2 diabetes Patient with high glucose likely secondary to recent Kenalog use and p.o. steroids. Accu-Chek with correction scale insulin ordered. Dapagliflozin ordered. High intensity statin ordered. Atrial fibrillation; rate controlled or mild RVR. Amiodarone continued. Eliquis been held secondary to possible thoracentesis. Patient's family is concerned that patient had a CVA a year ago and is on Eliquis to prevent same. Resume Eliquis or heparin as indicated. If thoracentesis will be delayed recommending starting heparin drip. Chronic Heart failure with reduced ejection fraction Echo on 06/14/23 showed EF of 35%. At 53% was 32 mmHg. Echocardiogram on 01/31/2023 showed EF of 40%. Cardiac cath in 05/19/2022 showed EF of 30%. On 05/18/2022 showed EF of 30%. Does not Look acutely decompensated. Lasix continued. Dapagliflozin continued. DVT prophylaxis SCD ordered. Time spent in the patient's overall evaluation,decision-making process, review of diagnostic data, adjustment of management, discussion with other providers, nursing nursing and ancillary staff involved in patient's care documentation, 70minutes. Charges/Coding Visit Charges Inpatient E&M: 12554 Init Hosp L3 06/21/23 0724 <Electronically signed by Hebert Ruiz MD> Cosigner Signature (if applicable): CC: Dr. Nando Esposito MD; Dr. Hebert Ruiz MD~ Signed [facility] Work Phone: 1(197) 112-971210-10-2023 Discharge summary Author Bree [facility] June 21, 2023 5:42am Note Date/Time June 21, 2023 1 2:45am [facility] Medical Records Department [address] [place] [address] Emergency Department Summary 06/21/23 MR#: [id number] Acct: [id number] Name: CAMILLE GARDINER Rep #:[id number] : 1960 62 From: Bree Bernal PCP: Dr. Nando Esposito MD Status: ADM IN Location: [facility] [id number]- 1 HPI History of Present Illness Chief Complaint: Lower Extremity Injury Informant: patient Narrative Narrative: 62-year-old female with history of CKD, type 2 diabetes mellitus, hypertension, hyperlipidemia, cardiomyopathy, atrial fibrillation with subsequent stroke abouta year ago (currently on Eliquis) presenting for worsening left knee pain as well and has urinary frequency. Patient notes that she has been dealing with this knee discomfort and pain for the past few weeks. Initially seen in our ER on 06/09 and then followed up with orthopedics (Dr. Moreno) on 06/16. At that time she received intra-articular injection of the piperocaine and Kenalog. Shefollowed up 06/20 (earlier today) because she is not having any improvement of her pain. She notes for the first few hours after injection she was feeling better but then afterwards the pain came back. She has had no falls. She has some nausea today which she attributes to the pain and also had an episode of flushing. She has been using K tape and a brace as well. She had increased swelling of her left lower extremity. She states the pain is worse behind her knee. She also states that she has been taking high doses of Tylenol (she states that she will take 5 x 500 mg at a time) with no improvement of her pain. She did take 1 [place] that she had leftover from her first ER visit with no improvement. In addition she developed urinary frequency last night. She states she is on the toilet every hour. Denies any associated dysuria, hematuria or odor change. Denies any other systemic symptoms. No report of fever or chills. Denies any new trauma. No other complaints or concerns at this time. [facility] Medical History Atrial fibrillation, new onset Atypical chest pain Cardiomyopathy Chest pain CHF (congestive heart failure) CVA (cerebral vascular accident) Finger lesion HLD (hyperlipidemia) Hypertension Hypertensive urgency Menopausal and female climacteric states Migraine headache Obesity Osteoarthritis of left knee Type II diabetes mellitus Home Medications duloxetine 60 mg capsule,delayed release 120 mg PO QHS mental health 11/08/21 [History Last Taken Unknown] acetaminophen 325 mg tablet (Tylenol) 650 mg (2 x 325 mg) PO Q4H PRN PRN Fever, pain 1-10/10 #0 tabs 09/17/22 [Rx Last Taken Unknown] ferrous sulfate 325 mg (65 mg iron) tablet (FeroSul) 325 mg PO DAILY@1200 #0 tabs 09/17/22 [Rx Last Taken Unknown] nystatin 100,000 unit/gram topical powder (Nyamyc) 1 applic topical BID #0 grams09/17/22 [Rx Last Taken Unknown] potassium chloride 10 mEq capsule,extended release 10 meq PO DAILY #30 caps 09/17/22 [Rx Last Taken Unknown] apixaban 5 mg tablet (Eliquis) 5 mg PO BID #180 tabs 11/04/22 [Rx Last Taken Unknown] atorvastatin 40 mg tablet 40 mg PO QHS cholesterol #90 tabs 11/04/22 [Rx Last Taken Unknown] dapagliflozin propanediol 10 mg tablet (Farxiga) 10 mg PO DAILY #90 tabs 02/09/23 [Rx Last Taken Unknown] amiodarone 200 mg tablet 200 mg PO DAILY 05/09/23 [History Last Taken Unknown] furosemide 40 mg tablet 40 mg PO DAILY 05/09/23 [History Last Taken Unknown] insulin glargine 100 unit/mL (3 mL) subcutaneous pen (Lantus Solostar U-100 Insulin) 20 unit (0.2 mL) subcut QAM #18 mL 05/09/23 [Rx Last Taken Unknown] insulin lispro 100 unit/mL subcutaneous pen (Humalog KwikPen (U-100) Insulin) 20unit (0.2 mL) subcut TID #54 mL 05/09/23 [Rx Last Taken Unknown] magnesium 250 mg tablet 500 mg PO DAILY 05/09/23 [History Last Taken Unknown] mecobalamin (vitamin B12) 5,000 mcg disintegrating tablet 5,000 mcg PO DAILY 05/09/23 [History Last Taken Unknown] trazodone 100 mg tablet 100 mg PO DAILY 05/09/23 [History Last Taken Unknown] dulaglutide 0.75 mg/0.5 mL subcutaneous pen injector (Trulicity) 0.75 mg (0.5 mL) subcut QWEEK #2 mL 05/18/23 [Rx Last Taken Unknown] metoprolol succinate 50 mg tablet,extended release 24 hr 50 mg PO DAILY #90 tabs06/07/23 [Rx Last Taken Unknown] hydrocodone-acetaminophen 5-325mg 5mg-325mg 1 tab PO Q6H PRN PRN Pain 3 days #10TABLETS 06/09/23 [Rx Last Taken Unknown] methylprednisolone 4 mg tablets in a dose pack (Medrol (Bird)) See Rx Instructions PO PER PKG DIR #21 tabs 06/20/23 [Rx Last Taken Unknown] Allergy/AdvReac Type Severity Reaction Status Date / Time ampicillin Allergy Intermediate Hives Verified 06/21/23 04:52 levofloxacin [From Levaquin] Allergy Other Verified 06/20/23 22:57 Penicillins Allergy Hives Verified 06/20/23 22:57 ampicillin Allergy Intermediate Hives Uncoded 06/20/23 13:04 Family History Mother Diabetes Psoriatic arthritis Rheumatoid arthritis Father COPD (chronic obstructive pulmonary disease) With concurrent tobacco use history. Myocardial infarction Heart disease Surgical History History of foot surgery Social History adopted: No household members: spouse housing: house number of children: 0 current occupational status: employed current occupation: works at [employer] pets and animals: Yes (kittens, dogs, horses) Smoking Status: Never smoker alcohol intake: never substance use type: does not use caffeine: Yes (occasionally) Type: carbonated beverages and coffee ROS ROS ED Constitutional Constitutional ED: Reports sweats; Denies chills or fever(s) Cardiovascular Cardiovascular: Denies chest pain or palpitations Respiratory/Chest Respiratory/Chest: Denies cough or dyspnea Gastrointestinal Gastrointestinal: Reports nausea; Denies abdominal pain or vomiting Genitourinary Genitourinary ED: Reports urinary frequency; Denies dysuria or hematuria Musculoskeletal Musculoskeletal: Reports other Details: Left knee pain ; Denies back pain or myalgias Integumentary Denies rash Neurologic Neurologic: Denies headache(s), paresthesias or weakness Psychiatric Psychiatric: Denies anxiety Hematologic/Lymphatic Hematologic/Lymphatic: Reports easy bleeding and easy bruising EXAM Physical Exam Const Vital Signs: 06/20/23 22:55 06/21/23 01:00 06/21/23 01:37 Temperature 98.0 F Temperature Source Temporal Pulse Rate 80 80 84 Respiratory Rate 18 17 16 Blood Pressure 167/90 H 182/99 H 167/99 H Blood Pressure Mean 115 125 121 Pulse Ox 99 92 Oxygen Delivery Method Room Air Room Air 06/21/23 00:45 06/21/23 02:00 Temperature 98.2 F Temperature Source Oral Pulse Rate 80 Respiratory Rate 16 Blood Pressure 168/98 H Blood Pressure Mean 121 Pulse Ox 98 Oxygen Delivery Method Positive well nourished, well developed and obese General Appearance ED: well developed and NAD Nutritional Appearance: obese HEENT Reports moist mucous membranes Eyes PERRL and EOMs intact bilaterally Neck supple Chest Wall inspection of chest normal and palpation of chest normal Resp normal respiratory effort and clear to auscultation bilaterally Cardio regular rate, regular rhythm and no murmurs GI normal to inspection, nondistended, normoactive bowel sounds and non-tender Extremity Extremity Narrative: Left lower extremity?no deformity. No hip pain with range of motion. Slight joint effusion of the left knee. Extensor mechanisms intact however it is quitepainful when she tries left upper leg. Not able to perform stress testing on the knee due to pain. No associated warmth or overlying erythema. No pinpoint area of tenderness. She does not have short arc range of motion pain but does have significant pain with any larger movements. Nonpitting edema of the distal calf and ankle however no pedal edema present. 2+ DP pulse. Neuro oriented x3 Sensorium / Orientation: alert Motor Exam: Negative for general weakness Psych mental status grossly normal Skin no rashes or lesions noted and no wounds MDM MDM MDM Narrative Medical decision making narrative: Is evaluated for worsening left knee pain as well as urinary frequency. Patient is given IV morphine for pain control with improvement of her symptoms. Given her recent steroids differential for the urinary frequency includes urinary tract infection, hyperglycemia, metabolic derangement or polydipsia. She is more tender than I would expect of her knee and differential includes knee inflammation, worsening effusion and septic joint. Discussed with patient that if we cannot get her pain under control or if she has mobility issues she might require admission to the hospital. We will start with checking labs. In addition I am concerned because patient is taking such high doses of Tylenol andwill check liver labs as well as Tylenol over for that. Counseled that she should take no more than 3 g of Tylenol in 24 hours and that the maximum one-time dose is 1 g. Patient is reevaluated and has improvement of her pain however she is now suddenly complaining of central chest discomfort. She states it feels like a squeezing pressure. We will get a repeat EKG, add on troponins and check a chest x-ray. Low suspicion for pulmonary emboli or VTE given that she is chronically anticoagulated on Eliquis and has been compliant with this. She does not appear fluid overloaded. Patient has a significant leukocytosis of 19.1 however she is also likely hemoconcentrated with a hemoglobin of 16.1. Platelets are normal. Her MP is atbaseline. She does not have an acute transaminitis and her Tylenol level is normal. Low suspicion for unintentional Tylenol overdose. She does have baseline CKD with a creatinine of 1.9 but again this is near her baseline. Highsince he troponin initially is 17. Does have significantly elevated inflammatory markers with a CRP of 126 and an ESR of greater than 130. Her urinalysis is consistent with infection with 25-50 white blood cells and 1+ bacteria however there is some slight contamination. Given her elevated inflammatory markers in the setting of worsening atraumatic knee pain I do not feel like I can adequately rule out a septic joint. She doesnot have report any history of gout. Patient will be admitted for orthopedic consult and rule out septic joint. In addition her leukocytosis is nonspecific given her recent steroids however suspect it could be more infectious. Since she does not have any systemic symptoms despite having 24 hours of UTI symptoms will defer antibiotics until orthopedic can see her in the morning as I suspect they will likely perform an arthrocentesis and send off sampling. She can startantibiotics after that point. This is discussed with hospitalist. Case is discussed with orthopedic PA who will relay this information to Dr. Moreno in the morning. Urine culture is sent and pending. Patient does have improvement of pain after receiving morphine and is more comfortable. Case is discussed with admitting physician and she is admitted to the PCU given her episode of chest pain as well. Patient's chest pain resolved spontaneously about 15 minutes after it started. She did not receive nitro even though it was ordered her resolution of pain. Lab Data Attestation: I reviewed the patient's lab results. Labs: Laboratory Results - last 24 hr 10/09/23 10/10/23 10/10/23 23:10 00:04 00:50 WBC 19.1 H RBC 5.35 Hgb 16.1 H Hct 50.2 H MCV 93.8 MCH 30.1 MCHC 32.1 RDW Std Deviation 42.1 RDW Coeff of Patricia 12.1 Plt Count 361 MPV 9.3 Immature Gran % (Auto) 0.800 Neut % (Auto) 81.3 H Lymph % (Auto) 6.6 L [place] % (Auto) 11.0 H Eos % (Auto) 0.0 Baso % (Auto) 0.3 Absolute Neuts (auto) 15.5 H Absolute Lymphs (auto) 1.27 Nucleated RBC % 0 Differential Comment SCANNED Diff Path Review May foll ESR > 130 H Sodium 130 L Potassium 4.8 Chloride 94 L Carbon Dioxide 28.0 Anion Gap 8 BUN 44 H Creatinine 1.90 H Est GFR (MDRD) Af Amer 34 L Est GFR (MDRD) Non-Af 29 L BUN/Creatinine Ratio 23.2 H Glucose 190 H Calcium 9.5 Total Bilirubin 0.70 Direct Bilirubin 0.24 AST 15 ALT 39 Alkaline Phosphatase 121 H Troponin I High Sens 17 C-React Prot Ext Range 126.00 H Total Protein 8.8 H Albumin 3.3 Globulin 5.5 H Urine Color Yellow Urine Clarity Clear Urine pH 7.0 Ur Specific [place] 1.010 Urine Protein 500 H Urine Glucose (UA) 1000 H Urine Ketones 5 H Urine Occult Blood 25 H Urine Nitrite Negative Urine Bilirubin Negative Urine Urobilinogen Normal Ur Leukocyte Esterase 500 H Urine RBC 0 SEEN Urine WBC 25-50 SEEN Ur Squamous Epith Cells 0-5 SEEN Urine Bacteria 1+ Urine Mucus 0 SEEN Acetaminophen < 2.0 L Radiography Chest X-Ray - ED: 1 View, Read by ED Physician, Read by Radiologist and No AcuteDisease Diagnostic Testing: Clinical Impression(s) from Imaging Studies Chest X-Ray 06/21/23 00:44 IMPRESSION: No radiographic evidence of acute cardiopulmonary disease. Electronically Signed: Emy Gonsalez MD at 1:20 EDT , Rhythm Strip Rhythm Strip: Sinus Rhythm Rate: 75 Ectopy: None EKG Initial EKG: Attestation: I personally reviewed and interpreted this EKG as follows: Interpretation: Sinus Rhythm Comments: Sinus rhythm at a rate of 75 bpm Left axis deviation LVH by criteria Nonspecific T wave changes Compared to prior EKG on 06/07/2023 patient has sniffing and interval changes Prior EKG tracings: available for review Prior: Unchanged Follow-up EKG: Attestation: I personally reviewed and interpreted this EKG as follows: Interpretation: Sinus Rhythm Comments: Normal sinus rhythm rate of 78 bpm Left axis deviation LVH Nonspecific T wave changes No significant change compared to prior EKG Management Discussion w/another healthcare provider: Hospitalist and Chair Maker Additional Tests and Interventions Diagnositc testing considered but not performed: Arthrocentesis?patient is anticoagulated, will defer for orthopedics Discharge Plan Dx/Rx/DC Orders Clinical Impression: Abnormal urinalysis, Chronic kidney disease, Septic arthritis, Leukocytosis Disposition Disposition: [facility] Discharge Date/Time: 06/21/23 03:03 What to do if you have Problems For any increased pain, shortness of breath, bleeding, nausea or vomiting, chestpain, or any unexpected problems, contact your Primary Care Provider. Call [facility] ([phone]) or report to the closest Emergency Room. Call 911 if necessary. 06/21/23 0542 <Electronically signed by Bree Dave DO> Cosigner Signature (if applicable): CC: Dr. Nando Esposito MD ~ Signed [facility] Work Phone: [phone]) 679-849709-18-2023 History of Present illness Narrative* Nando Esposito MD MPH - 05/30/2023 12:40 PM EDT Subjective Patient ID: Camille Dawkins is a 62 y.o. female who presents for 6 wk ov (Has a cough. Would like to talk about how she is taking duloxetine. Has to reschedule sleep study due to being sick). HPI Here for follow up. Cough: since the last three days now. Has been bringing up phlegm. Slightly yellow. No fever or SOB.Tenderness around her eyes. Overall normal exam. Recommended to use expectorant. If worsening then will consider abx if needed. DM2: Working with certified pediatric nurse practitioner. Slight improvement in DM. White spots all over the body. Zafar when in the sun. Noticed in the last one year. Progressively worsening. Could be vitiligo. Referral to dermatology Needs sleep study. Has not been able to get this done previously due to insurance. Ordered again atprevious visit. Not been able to get this done as she is sick. Previous hx Partner reports that she snores and possibly has apneic events. He feels tired during the daytime. Plan: Checking for obstructive sleep apnea especially in the setting of atrial fibrillation. In labsleep study is ordered. Discussed that potentially she will need another sleep study for CPAP titration. Patient expressed understanding. Dysthymia: was taking cymbalta twice daily. Wondering if she can take both doses at night, as it helps sleep. Plan: will take two at the same time which patient feels like has worked well for her. Continue trazadone to help with sleep which has helped her in the past. Insomnia:continue Trazodone. Podagra: reports that this pain has improved. uric acid level test ordered- but was not done. Likely arthritic in nature. Can refer to podiatry if significant. Can benefit from cushion at the [facility] until then. Review of Systems ROS negative except discussed above in HPI. Vitals: 05/30/23 1245 BP: 102/80 Pulse: 67 Objective Physical Exam Constitutional: Appearance: Normal appearance. Cardiovascular: Rate and Rhythm: Normal rate and regular rhythm. Pulmonary: Effort: Pulmonary effort is normal. No respiratory distress. Breath sounds: Wheezing (mild left lower quadrant) present. Musculoskeletal: Cervical back: Normal range of motion and neck supple. Lymphadenopathy: Cervical: No cervical adenopathy. Neurological: Mental Status: She is alert. Assessment/Plan Camille was seen today for 6 wk ov. Diagnoses and all orders for this visit: Multiple hypopigmented skin lesions on both forearms (Primary) - Referral to Dermatology; Future Insomnia, unspecified type - traZODone (Desyrel) 100 mg tablet; Take 1 tablet (100 mg) by mouth as needed at bedtime for sleep. Acute cough Type 2 diabetes mellitus without complication, with long-term current use of insulin ([facility]) Podagra Follow up in 6 months. Nando Esposito MD MPH documented in this [facility] Work Phone: 1(283) 346-290508-17-2023 NoteHNO ID: [id number] Author: Marah Baptiste, JUNIOR Service: ? Author Type: LATHE TENDER Type: Progress Notes Filed: 04/28/2023 2:22 PM Note Text: 1. Vitreous floaters of left eye No holes/tears/RDs Went over S/S of RD and to call MIRNA with any changes 2. Mild nonproliferative diabetic retinopathy of both eyes without macular edema associated with type 2 diabetes mellitus (HCC) Risk of diabetic changes and vision loss can be minimized by tight control of blood sugar, blood pressure, and cholesterol levels. Educated patient to continue care with primary care doctor and/or certified pediatric nurse practitioner to maintain optimum levels as they are important to avoid ocular complications. Encouraged patient to call the office immediately with any changes to vision or visual concerns. Advised to not wait until the next scheduled exam. 3. Vortex keratopathy of both eyes Patient is taking amiodarone Monitor 4. Ptosis of both eyelids Recommend consult with Dr. Barajas in [place] OS>OD d/t previous CVA per patient Follow-up 1 year for ALVINO and first available with Dr. Barajas in [place] for blepharoplasty consult Marah Baptiste, JUNIOR April 28, 2023 2:20 [facility]08-17-2023 History of Present illness Narrative* Marah Baptiste, OD - 04/28/2023 2:20 PM EDT 1. Vitreous floaters of left eye No holes/tears/RDs Went over S/S of RD and to call MIRNA with any changes 2. Mild nonproliferative diabetic retinopathy of both eyes without macular edema associated with type 2 diabetes mellitus (HCC) Risk of diabetic changes and vision loss can be minimized by tight control of blood sugar, blood pressure, and cholesterol levels. Educated patient to continue care with primary care doctor and/or certified pediatric nurse practitioner to maintain optimum levels as they are important to avoid ocular complications. Encouraged patient to call the office immediately with any changes to vision or visual concerns. Advised to not wait until the next scheduled exam. 3. Vortex keratopathy of both eyes Patient is taking amiodarone Monitor 4. Ptosis of both eyelids Recommend consult with Dr. Barajas in [place] OS>OD d/t previous CVA per patient Follow-up 1 year for ALVINO and first available with Dr. Barajas in [place] for blepharoplasty consult Marah Baptiste, OD April 28, 2023 2:20 PM [facility] NoteHNO ID: [id number] Author: Marah Baptiste, JUNIOR Service: ? Author Type: LATHE TENDER Type: Progress Notes Filed: 03/17/2023 1:43 PM Note Text: 1. Vitreous floaters of left eye No holes/tear/RDs Educated pt on condition Urged patient to call mirna with any increase in symptoms or sudden change in visual field (curtain/veil) 2. Type 2 diabetes mellitus with both eyes affected by moderate nonproliferative retinopathy without macular edema, with long-term current use of insulin (HCC) Risk of diabetic changes and vision loss can be minimized by tight control of blood sugar, blood pressure, and cholesterol levels. Educated patient to continue care with primary care doctor and/or certified pediatric nurse practitioner to maintain optimum levels as they are important to avoid ocular complications. Encouraged patient to call the office immediately with any changes to vision or visual concerns. Advised to not wait until the next scheduled exam. 3. Vortex keratopathy of both eyes Patient on amiodarone Educated pt- will monitor Follow-up in 6-8 weeks for follow-up or sooner as needed or with increase in symptoms Marah Baptsite, OD March 17, 2023 1:[facility] of Present illness Narrative* Marah Baptiste, OD - 03/17/2023 1:42 PM EDT 1. Vitreous floaters of left eye No holes/tear/RDs Educated pt on condition Urged patient to call mirna with any increase in symptoms or sudden change in visual field (curtain/veil) 2. Type 2 diabetes mellitus with both eyes affected by moderate nonproliferative retinopathy without macular edema, with long-term current use of insulin (HCC) Risk of diabetic changes and vision loss can be minimized by tight control of blood sugar, blood pressure, and cholesterol levels. Educated patient to continue care with primary care doctor and/or certified pediatric nurse practitioner to maintain optimum levels as they are important to avoid ocular complications. Encouraged patient to call the office immediately with any changes to vision or visual concerns. Advised to not wait until the next scheduled exam. 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 I tried to get her into [facility] they had no openings and she did not want to go to [facility] and did not want to wait until to see Dr Baptiste.Shasha Starks documented in this [facility]06[facility] History of Present illness Narrative* Nando Esposito MD MPH - 02/14/2023 9:40 AM EDT Subjective Patient ID: Camille Dawkins is a 62 y.o. female who presents for Sick (Rotator Cuff Pain in both shoulder. Left started October. Right started in September. Just gotten worse over the last couple months. Denies injury to the areas. Bilateral big toe joint pain. ). HPI Shoulder pain: for months. Right from injury from horse bite - appears muscular. Left shoulder since the last few months. Worsening since stroke. Physical therapy ordered. DM2: wants to discuss about insulin pump. Referral to endocrinology Needs sleep study. Has not been able to get this done previously due to insurance. Ordered again abran has insurance now. Previous hx Partner reports that she snores and possibly has apneic events. He feels tired during the daytime. Plan: Checking for obstructive sleep apnea especially in the setting of atrial fibrillation. In labsleep study is ordered. Discussed that potentially she will need another sleep study for CPAP titration. Patient expressed understanding. Dysthymia: was taking cymbalta twice daily. Wondering if she can take both doses at night, as it helps sleep. Plan: continue as is now. Starting trazadone to help with sleep which has helped her in the past. Insomnia: restarting Trazodone. Podagra: uric acid level test ordered. Likely arthritic in nature. Can refer to podiatry if significant. Can benefit from cushion at the ball of the foot until then. Review of Systems ROS negative except discussed above in HPI. Vitals: 02/14/23 0943 BP: 140/90 Pulse: 85 Objective Physical Exam Constitutional: Appearance: Normal appearance. Cardiovascular: Rate and Rhythm: Normal rate and regular rhythm. Pulmonary: Effort: Pulmonary effort is normal. Breath sounds: Normal breath sounds. Musculoskeletal: Comments: Tenderness in the posterior shoulder area of the left shoulder. Normal passive ROM but limited terminal extension and abduction due to pain. Right shoulder- tenderness in the deltoid insertion area. Bilateral first metatarsophalangeal joint tenderness appreciated. Neurological: Mental Status: She is alert. Assessment/Plan Camille was seen today for sick. Diagnoses and all orders for this visit: Chronic pain of both shoulders (Primary) - Referral to Physical Therapy; Future Observed sleep apnea - In-Center Sleep Study (Non-Sleep Provider Only) Cerebrovascular accident (CVA), unspecified mechanism ([facility]) - In-Center Sleep Study (Non-Sleep Provider Only) Type 2 diabetes mellitus without complication, with long-term current use of insulin ([facility]) - Referral to Endocrinology; Future Secondary dysthymia - DULoxetine (Cymbalta) [address] capsule; Take 1 capsule (60 mg) by mouth 2 times a day. Insomnia, unspecified type - traZODone (Desyrel) 100 mg tablet; Take 1 tablet (100 mg) by mouth as needed at bedtime for sleep. Podagra - Uric acid; Future Follow up in 4-6 weeks after sleep study. Nando Esposito MD MPH documented in this [facility] Work Phone: 1(591) 834-303601-14-2023 [facility] DISCHARGE SUMMARY NAME ACCOUNT SEX AGE ADMIT DISCHARGE PT MED. RECORD# NUMBER DATE DATE TYPE CAMILLE DAWKINS [id number] F 62 09/18/22 09/24/22 1 [id number] ROOM: 303[facility] DATE OF : 1960 ATTENDING PHYSICIAN: Markell Franklin DATE: September 24, 2022 FINAL DIAGNOSES: 1. Atrial fibrillation with rapid ventricular response. 2. Acute on chronic systolic congestive heart failure. 3. Diabetes mellitus Type II with episode of hypoglycemia. 4. Iron deficiency anemia. 5. Hypersomnia. 6. Hypomagnesemia. 7. Obesity with a BMI 35.69 kg/m2. 8. Low HDL. 9. Chronic kidney disease, Stage 3A. 10. Elevated TSH. PHYSICAL EXAMINATION: On the day of discharge, the patient was feeling fairly well. She denies any chest pain. No shortness of breath. She continues to feel sleepy. She underwent a successful cardioversion after doing a ROBERTO. She converted to sinus rhythm with 200 joules of synchronized cardioversion and she had bradycardia at 50 beats per minute. DIAGNOSTIC DATA: Studies obtained this hospital stay: (1) Chest x-ray showed cardiomegaly, small pleural effusion, and increased vascularity consistent with CHF. (2) Echocardiogram done on September 20, 2022 showed that the left ventricle is normal in size and thickness. Systolic ejection fraction is 25 - 30 % with diffuse hypokinesis of the left ventricle. There is mild to moderate mitral valve regurgitation. There is moderate tricuspid valve regurgitation. Aortic valve is tri-leaflet with mild sclerosis without stenosis. Right ventricle is normal size with mildly reduced systolic function. Estimated triventricular systolic pressure is 38 mmHg. (3) ROBERTO done prior to cardioversion. It was limited with no left atrium or left atrial appendage thrombus seen. The left atrial appendage contractility is low normal. Agitated saline did not show any right to left shunt at rest. There is mild atherosclerosis seen. Earlier today I saw the patient. She was lying down in bed comfortably. No acute distress. Blood pressure 99/67, heart rate 57, respiratory rate 16, temperature 97.5. Oxygen saturation 92% on room air. Skin: Warm and dry. Neck: Supple. No nodes, no masses, no JVD. No carotid bruit. No thyroid enlargement. Lungs: Symmetrical equal lung expansion. Clear to auscultation. Respiratory effort normal. Page 1 of 4 CAMILLE DAWKINS Discharge Summary CAMILLE DAWKINS : 1960 Heart: When I saw her prior to the cardioversion she was in atrial fibrillation with irregularly irregular heart. Abdomen: Soft, nontender. Extremities: No edema. Neurologic: The patient was alert, oriented x 3. She continued to have significant hypersomnia. Laboratory data the day of discharge: WBC's 5.5. Hemoglobin 9.3, hematocrit 30.9. Platelet count 308,000. Sodium 139. Potassium 3.4. BUN 36, creatinine 1.79. Glucose 122. SGOT 25, SGPT 17. Alkaline phosphatase 87. Albumin 3.1. Total bilirubin 1.2. Magnesium 1.8. BNP 7717. Other significant laboratory data this hospital stay: Initial hemoglobin was 9.7, hematocrit 31.4. MCV 81. MCH 25. Platelet count 266,000. Initial BUN was 30 with creatinine 1.61. Albumin 3.2 and B12 level 403. Folate level 22.3. Magnesium level 1.5. Lactate level 1.5. TSH 4.55 and initial BNP was 21,266. Total iron 19. TIBC 465 with iron saturation of 4%. Total cholesterol 73. HDL 26. Triglycerides 58. LDL 35. Influenza A and B swabs negative. A1C 7.6% and ABG's were done during this hospital stay and showed a pH of 7.44, PCO2 of 41, PO2 of 73, bicarb 28. COVID-19 swab negative. HOSPITAL COURSE: (1) Atrial fibrillation with rapid ventricular response. Initially the patient was admitted to the Special Care Unit. She was tachycardic in the Emergency Room. Metoprolol succinate was increased to 100 mg twice daily and the patient was started on losartan. Dr. Bee was consulted to evaluate the patient and the patient continued to be anticoagulated. The atrial fibrillation, the rate was controlled but she continued to be in atrial fibrillation and the patient was started on amiodarone 400 mg twice daily and initially it was thought that the patient will be able to be discharged and brought back for cardioversion but she continued to be symptomatic from the systolic congestive heart failure and the decision was made to cardiovert the patient, which was done the day of discharge and she converted to sinus rhythm and she will be maintained on amiodarone and Eliquis in addition to metoprolol succinate, which the dose was decreased to 75 mg twice a day to accommodate borderline systolic blood pressure. (2) Acute on chronic systolic congestive heart failure which was aggravated by the atrial fibrillation and the rapid ventricular response. The patient was given Lasix 40 mg IV push every 12 hours. She clinically improved. Her BNP was initially more than 21,000 and the day of discharge it was a little over 7000 and the (more content not included)...[facility]01-14-2023 Note [facility] PROGRESS NOTE NAME ACCOUNT SEX AGE ADMIT DISCHARGE PT MED. RECORD# NUMBER DATE DATE TYPE CAMILLE DAWKINS [id number] F 62 09/18/22 1 [id number] ROOM: [facility] DATE OF : 1960 DICTATING PHYSICIAN: Markell Franklin DATE OF SERVICE: September 23, 2022 TIME SEEN: 8:00 a.m. SUBJECTIVE: Events noted: Patient has been experiencing hypoglycemic episodes. She continued to be in atrial fibrillation. She denies any chest pain. She denies any shortness of breath at rest, but she mentioned increasing shortness of breath with activity. OBJECTIVE: No acute distress. Lying down in bed comfortably. Blood pressure 105/66, heart rate 85, respiratory rate 16, temperature 97.6. Oxygen saturation 93% on room air. Skin: Warm and dry. Lungs: Symmetrical equal lung expansion. Clear to auscultation. Respiratory effort normal. Heart: Irregularly irregular. Extremities with trace edema. DIAGNOSTIC DATA: WBC's 6.3, Hemoglobin 9.7, hematocrit 31.4. Platelet count 308,000. Sodium 140. Potassium 3.6. BUN 37, creatinine 1.81. Glucose 67. BNP 10,328. ASSESSMENT AND PLAN: 1. Atrial fibrillation. I discussed the case with Dr. Bee. The plan is to cardiovert her after doing a ROBERTO tomorrow. She continued to be in atrial fibrillation at this time with controlled rate. Continue anticoagulation therapy and continue metoprolol succinate. 2. Acute exacerbation of chronic heart failure with reduced ejection fraction. BNP is better and hopefully by converting atrial fibrillation to sinus rhythm patient will feel better and hopefully that will improve the heart function. 3. Iron deficiency anemia. The patient will benefit from seeing a press tender star signal as an outpatient. 4. Hypersomnia. Likely obstructive sleep apnea. I again discussed with patient the importance of doing a sleep study to rule out the high likelihood for obstructive sleep apnea. We discussed that if she has obstructive sleep apnea and it is controlled with treatment, then she will improve her chances not to go back into atrial fibrillation. She needs to have an in-lab polysomnogram as an outpatient. 5. Diabetes mellitus Type II with intermittent hypoglycemic episodes. I did discontinue the Humalog and will decrease insulin glargine to 10 units subcutaneously at bedtime and continue Glucoscans and cover with sliding scale. 6. Above discussed with patient in detail. All questions answered and she expressed understanding of the plan of care. I also discussed the case with nursing staff. Page 1 of 2 CAMILLE DAWKINS Progress Note CAMILLE DAWKINS : 1960 Dictated By: Markell Franklin MD 09/23/22 20:41 JOB #: [id number] Transcribed By: parrish 09/23/22 22:50 Electronically signed by: Markell Franklin M.D. 09/25/22 11:12 Page 2 of 2 CAMILLE DAWKINS Progress [facility]01-14-2023 [facility] PROGRESS NOTE NAME ACCOUNT SEX AGE ADMIT DISCHARGE PT MED. RECORD# NUMBER DATE DATE TYPE CAMILLE DAWKINS [id number] F 62 09/18/22 1 [id number] ROOM: [facility] DATE OF : 1960 DICTATING PHYSICIAN: Markell Franklin DATE/TIME OF SERVICE: September 22, 2022, at 9:45 a.m. SUBJECTIVE: The patient feels significantly better. She denies any shortness of breath at rest, but she tells me once she walked then she came back with increasing shortness of breath. She denies any chest pain. OBJECTIVE: GENERAL: No acute distress, laying down in bed comfortably. VITAL SIGNS: Blood pressure is 94/58, heart rate 83, respiratory rate 18, temperature 97, and oxygen saturation 96% on room air. SKIN: Warm and dry. LUNGS: Lungs are symmetrical with equal lung expansion, diminished breath sounds bilaterally, and clear to auscultation. Respiratory effort is normal. HEART: Heart is irregularly irregular. EXTREMITIES: Trace edema. NEUROLOGIC: The patient was alert and oriented x3 with significant hypersomnia, and she continued to doze off during my conversation with her. DIAGNOSTIC DATA: WBC is 7.6, hemoglobin 10.3, and hematocrit 33.6. Sodium was 139, potassium 3.9, BUN 33, creatinine 1.67, and glucose 68. Magnesium was 1.8. BNP was 1416. ASSESSMENT/PLAN: 1. Atrial fibrillation with rapid ventricular response. Now the rate is controlled. She continues to be in atrial fibrillation. We will continue metoprolol succinate 75 mg b.i.d. and continue amiodarone. We will continue anticoagulation therapy. I discussed with Dr. Bee this morning. The plan is to arrange for her to have a ROBRETO followed by cardioversion. 2. Acute exacerbation of chronic heart failure with reduced ejection fraction. Hopefully by converting the atrial fibrillation then her ejection fraction will improve. We had to discontinue Losartan to accommodate for low blood pressure. We will continue furosemide. Dr. Bee suggested that we switch to IV furosemide. 3. Chronic kidney disease stage III. Her renal function seems to be stable at this time. The above was discussed with the patient in detail. All questions were answered, and she expressed understanding of the plan of care. I also discussed the case with the nursing staff. Dictated By: Markell Franklin MD 09/22/22 16:57 JOB #: [id number] Transcribed By: sierra 09/23/22 06:13 Electronically signed by: Markell Franklin M.D. 09/25/22 11:12 Page 1 of 1 CAMILLE DAWKINS [facility]01-14-2023 Note. MICRO - Microbiology PROCEDURE: Blood Culture (bacterial) [*1] SOURCE: Blood BODY SITE: COLLECTED DATE/TIME: 09/18/2022 14:30 EST RECEIVED DATE/TIME: 09/20/2022 00:15 EST START DATE/TIME: 09/20/2022 00:18 EST FREE TEXT SOURCE: FINAL REPORTS Final Report [] Verified Date/Time/Personnel: 09/25/2022 01:59 EST Blood Culture: No Growth at 5 days. PRELIMINARY REPORTS Preliminary Report [] Verified Date/Time/Personnel: 09/20/2022 01:59 EST Culture has been received in lab and is no growth to date. Routine cultures are held for 5 days. Performing Locations *1: This test was performed at: [address], [facility] , [facility] ([place])09-25-2022 Note. MICRO - Microbiology PROCEDURE: Blood Culture (bacterial) [O1 *1] SOURCE: Blood BODY SITE: COLLECTED DATE/TIME: 09/18/2022 15:25 EST RECEIVED DATE/TIME: 09/20/2022 00:15 EST START DATE/TIME: 09/20/2022 00:18 EST FREE TEXT SOURCE: FINAL REPORTS Final Report [] Verified Date/Time/Personnel: 09/25/2022 01:59 EST Blood Culture: No Growth at 5 days. PRELIMINARY REPORTS Preliminary Report [] Verified Date/Time/Personnel: 09/20/2022 01:59 EST Culture has been received in lab and is no growth to date. Routine cultures are held for 5 days. Order Comments O1: Blood Culture (bacterial) Collection date/time has been modified to:09/18/2022 15:25. Previous Collection date/time: 09/19/2022 15:25. Performing Locations *1: This test was performed at: [address], [facility] , [facility] ([place] NAME ACCOUNT SEX AGE ADMIT DISCHARGE PT MED. RECORD# NUMBER DATE DATE TYPE CAMILLE DAWKINS [id number] F 62 09/18/22 1 [id number] ROOM: [facility] DATE OF : 1960 DICTATING PHYSICIAN: Markell Franklin DATE OF SERVICE: September 21, 2022 SUBJECTIVE: The patient is feeling significantly better. She denies any shortness of breath. No chest pain. She continues to be in atrial fibrillation but with a controlled rate. OBJECTIVE: GENERAL: No acute distress, laying down in bed comfortably. VITAL SIGNS: Blood pressure is 101/41, heart rate 87, respiratory rate 16, temperature 97.5, and oxygen saturation 96% on room air. SKIN: Warm and dry. NECK: Supple. No nodes. No masses. No JVD. LUNGS: Symmetrical with equal lung expansion and diminished breath sounds bilaterally, clear to auscultation. Respiratory effort is normal. HEART: irregularly irregular. EXTREMITIES: Trace edema. NEUROLOGIC: The patient was alert and oriented x3 with significant left-sided residual weakness from previous stroke. DIAGNOSTIC DATA: Laboratories are pending from this morning. ASSESSMENT/PLAN: 1. Atrial fibrillation with rapid ventricular response, currently rate controlled. The patient is on Eliquis. I appreciate Dr. Bee's evaluation. The patient was started on amiodarone yesterday. Her blood pressure is borderline low. We will decrease metoprolol succinate to 75 mg b.i.d. I have discussed the case with Dr. Bee. The plan is to continue amiodarone and continue anticoagulation therapy. Within the next 2-4 weeks the patient will need to have a ROBERTO followed by cardioversion. 2. Acute exacerbation of chronic heart failure with reduced ejection fraction. Recent echocardiogram showed an ejection fraction of 25-30%. The patient clinically is improving. We will continue metoprolol succinate, but as mentioned above we will decrease the dose to 75 mg b.i.d. We will continue losartan but will decrease the dose to 12.5 mg daily to accommodate the patient's blood pressure and will continue current treatment with furosemide 40 mg twice a day IV with a plan to switch to p.o. upon discharge. If the patient was converted to sinus rhythm, then we will need to follow up an echocardiogram within 2-3 months to ensure improvement of the ejection fraction. Otherwise, the patient may need to have an ICD placed. 3. Chronic kidney disease, stage III. We will monitor laboratories. 4. Diabetes mellitus type 2. Continue current treatment and monitor blood sugars. 5. Iron-deficiency anemia. The patient tells me that she had a colonoscopy done at [facility] within the last few months, and if her anemia persists she would benefit from seeing a press tender star signal when she is more stable. 6. Hypersomnia. Most likely the patient has undiagnosed obstructive sleep apnea. I Page 1 of 2 CAMILLE DAWKINS Progress Note CAMILLE DAWKINS : 1960 discussed with the patient that diagnosing and treating obstructive sleep apnea is essential to maintain sinus rhythm after cardioversion. Once she is better from a congestive heart failure point of view then the patient would benefit from having an in-lab polysomnogram. The above was discussed with the patient in detail. All questions were answered, and she expressed understanding of the plan of care. I also discussed the case with Dr. Bee and with the nursing staff. Dictated By: Markell Franklin MD 09/21/22 10:28 JOB #: [id number] Transcribed By: sierra 09/21/22 11:17 Electronically signed by: Markell Franklin M.D. 09/22/22 10:24 Page 2 of 2 [facility] PROGRESS NOTE NAME ACCOUNT SEX AGE ADMIT DISCHARGE PT MED. RECORD# NUMBER DATE DATE TYPE CAMILLE DAWKINS [id number] F 62 09/18/22 1 [id number] ROOM: 303PA DATE OF : 1960 DICTATING PHYSICIAN: Markell Franklin DATE OF SERVICE: September 20, 2022 SUBJECTIVE: The patient is feeling better today. She denies any chest pain. She denies any shortness of breath. She continues to be tired. She tells me that she did not sleep well last night. OBJECTIVE: GENERAL APPEARANCE: No acute distress, sitting in a recliner chair comfortably. VITALS SIGNS: Blood pressure 142/54, heart rate 84, respiratory rate 18, temperature 97.8, oxygen saturation 95% on room air. SKIN: Warm and dry. NECK: Neck is supple. No nodes. No masses. No JVD. No carotid bruit. No thyroid enlargement. LUNGS: Symmetrical, equal lung expansion, diminished breath sounds bilaterally, and clear to auscultation. Respiratory effort is normal. HEART: Irregularly irregular. EXTREMITIES: Trace pitting edema bilaterally. DIAGNOSTIC DATA: Laboratory data: WBC is 7.1, hemoglobin 9.3, hematocrit 29.8, and platelet count 260,000. Sodium was 138, potassium 3.6, BUN 31, and creatinine 1.73. Glucose is 118. Albumin is 3.1. Magnesium is 2.0. BNP is 12,285. ASSESSMENT/PLAN: 1. Acute exacerbation of chronic heart failure with reduced ejection fraction. Echocardiogram was obtained today, and results are pending. Her BNP has improved to 12,000. She had an episode of low blood pressure this morning. We will continue current treatment for now with beta kinjal metoprolol succinate, A2RB losartan, and furosemide IV pending cardiology evaluation. 2. Atrial fibrillation with rapid ventricular response. The patient continued to be in atrial fibrillation, but her heart rate is more controlled. We will continue anticoagulation therapy with Eliquis, and continue metoprolol. 3. Chronic kidney disease stage III with fairly stable creatinine between yesterday and today. 4. Hypomagnesemia. We will continue magnesium supplements. Magnesium level this morning was 2.0, which is slightly lower than yesterday. We will recheck in the morning. 5. Diabetes mellitus type 2. We will continue current treatment and monitor blood sugars and cover with sliding scale. 6. The patient would benefit from having an in-lab polysomnogram when she is more stable to rule out the high possibility for obstructive sleep apnea. 7. Above was discussed with the patient in details. All questions were answered, and she expressed understanding of the plan of care. Page 1 of 2 CAMILLE DAWKINS Progress Note ACMILLE DAWKINS : 1960 Dictated By: Markell Franklin MD 09/20/22 09:29 JOB #: [id number] Transcribed By: am 09/20/22 09:47 Electronically signed by: Markell Franklin M.D. 09/21/22 09:02 Page 2 of 2 CMAILLE DAWKINS Progress [facility]ICAL NAME ACCOUNT SEX AGE ADMIT DISCHARGE PT MED. RECORD# NUMBER DATE DATE TYPE CAMILLE DAWKINS [id number] F 62 09/18/22 1 [id number] ROOM: [facility] DATE OF : 62 DICTATING PHYSICIAN: Markell Franklin Time Seen: 11:30 a.m. CHIEF COMPLAINT: Increasing shortness of breath. HISTORY OF PRESENT ILLNESS: The patient is a 62-year-old lady with very complex medical problems including recent CVA, atrial fibrillation, and cardiomyopathy who was in her usual state of health until yesterday when [facility] to have increasing shortness of breath and tachycardia which was irregularly irregular. Previous to that she was at [facility] and she was discharged to [facility] on 09/17/2022. When I saw the patient, she was sitting in a recliner chair. She denied any shortness of breath, but she mentioned that she would have dyspnea on exertion. She denies any chest pain. She had intermittent palpitations. On admission, the patient was kept on metoprolol succinate, but the dose was increased to control the rapid ventricular response and she was restarted on Losartan and she was given furosemide 40 mg IV b.i.d. and she seemed to have improved somewhat today with minimal symptoms. PAST MEDICAL HISTORY: (1) Paroxysmal atrial fibrillation with intermittent rapid ventricular response. (2) CVA to the right MCA in July 2022. (3) Nonischemic cardiomyopathy with normal coronary arteries by cardiac catheterization reported a few months ago, done in [place]. (4) Heart failure with reduced ejection fraction with ejection fraction of 30% by echocardiogram a few months ago. (5) History of COVID in June 2022. (6) Chronic kidney disease at least stage III. (7) Obesity with BMI of 36.15 kg/m2. (8) Depression. (9) Anxiety. (10) Hyperlipidemia. (11) Hypertension. (12) Migraine headaches. (13) Diabetes mellitus type 2. (14) Iron-deficiency anemia. She tells me that she had a colonoscopy done a few months ago with a polyp removed. PAST SURGICAL HISTORY: (1) Foot surgery in the past. (2) She mentioned a brain surgery to remove a blood clot, but I do not have that information. ALLERGIES: Levofloxacin, she was unsure of the reaction. She is also allergic to penicillin which gives her hives. FAMILY HISTORY: Positive for mother with diabetes. She also has rheumatoid arthritis and psoriatic arthritis. Father with COPD and coronary artery disease with previous myocardial infarction. Page 1 of 4 CAMILLE DAWKINS History & Physical CAMILLE DAWKINS :1960 SOCIAL HISTORY: She is . She does not have any children. She does not smoke. She does not drink alcohol. REVIEW OF SYSTEMS: Denies dizziness, lightheadedness or headaches. She complains of palpitations and increasing shortness of breath, especially dyspnea on exertion. She denies any diaphoresis. No GI or symptoms. She does have residual left-sided weakness from previous stroke. She also noticed a slight increase in lower extremity edema. She has hypersomnia. In fact, she was dozing off repeatedly during my conversation with her. She mentioned that she did have a good night's sleep the night before. Although, she was noted by nursing staff to have significant restlessness and moving in bed while sleeping. The rest of the review of systems were discussed with the patient and they were negative. PHYSICAL EXAMINATION GENERAL APPEARANCE: The patient was sitting in a recliner chair comfortably in no acute distress, well-developed, well-nourished. VITAL SIGNS: Blood pressure 109/77, heart rate 98, respiratory rate 16, temperature 98.4, oxygen saturation 97% on room air. Admission weight 205 pounds with a BMI of 36.15 kg/m2. SKIN: Warm and dry. HEENT: Unremarkable. NECK: Supple. No nodes. No masses. No JVD. No carotid bruit. No thyroid enlargement. LUNGS: Symmetrical. Equal lung expansion. Diminished breath sounds bilaterally. Clear to auscultation. Respiratory effort is normal. HEART: Irregularly irregular with 2/6 systolic ejection murmur in the left sternal border. ABDOMEN: Obese, soft, nontender. EXTREMITIES: Trace edema bilaterally. NEUROLOGIC: The patient is alert and oriented x3. She has significant hypersomnia. She was dozing off and sleeping during my conversation with her. DIAGNOSTIC DATA: This morning, WBC 8.9, hemoglobin 9.2, hematocrit 30.2, MCV 80, MCH 25, platelets 248,000. Sodium 139, potassium 3.8, BUN 30, creatinine 1.70, glucose 127. Magnesium 2.3. BNP 18,912. Total cholesterol 73, triglycerides 58, HDL 26 and LDL 35. Page 2 of 4 CAMILLE DAWKINS History & Physical CAMILLE DAWKINS :1960 Labs from yesterday in the emergency room. WBC 6.9, hemoglobin 9.7, hematocrit 31.4, platelets 266,000. Sodium 137, potassium 3.9, BUN 30, creatinine 1.61, glucose 121, SGOT 24, SGPT 26, alk phos 87, albumin 3.2, total bilirubin 1.1, fe (more content not included)...[facility]12-09-[facility] History of Present illness Narrative* ALDO Sosa - 08/20/2022 1:26 PM EST Summary: Discharge Social Work Final Discharge Plan and Transportation Final Discharge Planning Discharge Disposition: Inpatient Rehab Facility Services at Discharge: Physical Therapy, Occupational Therapy, Senior Living Name For Handoff: [facility] Phone For Handoff: [phone] Fax For Handoff: [phone] [facility] [address] [place] [address] Plan Plan: PT/OT/Senior Living Plan Comments: PT/OT/ Senior Living Transportation Name of Transport Company: Other (Comment) ETA of Ambulance: 1:00pm Mode of Transfer: ambulance Accompanied By: EMS Patient medically stable for discharge per physician/medical team. SW confirmed with [facility] that they are able to accept the patient this date. Insurance pre-certification has beenobtained and a not required. SW arranged transport as indicated above, ETA is 1:00pm. The patient has no specialized equipment needs for transportation. AVS/BAILEY completed from a SW standpoint. SW updated the bedside RN, CCM, facility and patient/petroleum products sales representative of the discharge plan and transport time. 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 Bedside RN to call report and fax AVS/BAILEY. Ambulance form left at the community cultural development officer desk with a request for a printed transfer report. Discharge Instruction for Bedside RN: 1. Confirm the Ambulatory Order is in the BAILEY. 2. Print the BAILEY and AVS. 3. Print the Discharge Summary for facilities (if available). 4. Fax BAILEY, AVS and Discharge Summary (when applicable) to agency or facility. 5. Call the agency or facility for report. SOMMER Sosa, [facility] Strategic Planner [phone] * Raine Bryan MD - 08/20/2022 12:18 PM EST Stroke Attending Addendum (Date of service 08/20/22): I have interviewed and examined patient. I have reviewed Robert Mujica CNP's note and agree with the following highlights, additions, and addendums: The patient is a 62 y.o. right-handed female witha history of hypertension, diabetes mellitus, atrial fibrillation on eliquis, congestive heart failure who on 08/08/22 at 2000 was LKN and then developed symptoms of left hemiparesis. [facility] where Telestroke showed an NIHSS of 6. CT brain was negative for acute changes. OSH CT angiogram head/neck showed a right M2 occlusion. The patient did not receive IVtPA. Patient transferred to [facility] ER and initial NIHSS on arrival was 8. CTP shows a right MCA MM. The patient was taken for intra-arterial therapy and had TICI 2b recanalization. The patient was transferred to [facility]. LDL 31, HgbA1c 7.5. MRI brain diffusion weighted images acute right MCA infarct (small). TTE EF <20%. Cards consulted. EP consulted. L wrist xray neg.Enrolled in SLEEP SMART but did not tolerate CPAP (wore it only 10 min). Interval Overnight History: 116/. EP consulted yesterday, changed metoprolol dose. IV lasix changed to po lasix today. Neurological examination shows left ptosis (chronic), left hemiparesis and dysarthria, NIHSS 6 (LF-1, LUE-4, dys-1). Assessment/Plan: Acute right MCA ischemic stroke, right M2 MCA occlusion s/p intra-arterial therapy with TICI 2b recanalization Post-stroke day # 11. Stroke mechanism is cardioembolism subtype (due to atrial fibrillation). Stroke work-up completed. Resumed home eliquis. Continue vascular risk factor modification. On lipitor 40. On lopressor, lasix, losartan. DVT prophylaxis with SCDs and eliquis. PT/OT consults-ARF, today. Refe rral for outpatient cardiology. Raine Bryan MD * Gagan Lay, PT - 08/20/2022 10:26 AM EST Acute Physical Therapy Treatment Prior to Admission AMPAC score(s): PRIOR LEVEL AM-PAC Mobility Raw Score: 24 PRIOR LEVEL AM-PAC Activity Raw Score: 24 Current AM-PAC score(s): CURRENT AM-PAC Mobility Raw Score: 16 Based on the above AM-PAC score(s) and PT clinical judgment, patient is a good candidate for discharge to Inpatient Rehab Facility Barriers to discharge home: Patient needs assistance with functional mobility Supporting Factors (would benefit from skilled therapy services): Patient status is anticipated to be appropriate to tolerate inpatient rehab therapy requirements at time of discharge from acute care, Impaired functional status, Decreased strength, Impaired balance, Impaired self-care abilities, Decreased endurance necessitating skilled therapy services, but able to tolerate therapy requirements for inpatient rehab, Impaired cognitive status, Fall risk Mobility equipment available at home: rollator, stair glide ADL equipment available at home: shower chair, grab bars Equipment needed for discharge: to be determined Current therapy frequency recommendation in acute: Therapy Frequency: 5 times a week Precautions and Weightbearing Status: Existing Precautions/Restrictions: fall Telemetry Patient Safety Communication Prior to Visit: Nursing Subjective: Pt sitting in chair upon room entry with spouse present; Pt reported that she is excited to be discharged today; agreeable to PT Pain: General Pain Documentation (Adult, OB, Peds) Presence of Pain: complains of pain/discomfort Pain Location: shoulder, left DVPRS (Defense and Veterans Pain Rating Scale) DVPRS: Rest: 8- severe pain DVPRS: Activity: 8- severe pain Objective/Observation: Vitals/Vitals Responses to Treatment: HR ranged from 95-146bpm with monitor indicating Afib; HR increase with activity but returned to baseline 95-110bpm within seconds of rest Respiratory Status O2 Device: room air Flow (L/min): 0 Cognition Overall Cognitive Status: Impaired Arousal/Alertness: Appropriate responses to stimuli Orientation Level: Oriented to person, Oriented to place, Oriented to time Following Commands: Follows one step commands without difficulty Safety Judgment: Decreased awareness of need for assistance, Decreased awareness of need for safety Awareness of Errors: Assistance required to identify errors made, Assistance required to correct errors made, Decreased awareness of errors Deficits: Decreased awareness of deficits Attention Span: Attends with cues to redirect Memory: Decreased recall of recent events Problem Solving: Assistance required to identify errors made Extremity Assessments: See PT Evaluation flowsheet for Extremity Measurement updates. Balance: Sitting Balance Static Sitting-Level of Assistance: Standby Dynamic Sitting-Level of Assistance: Contact guard Skilled Rationale: Positioning, Sequencing, Hand placement, Verbal cues, Tactile cues Standing Balance Static Standing-Level of Assistance: Minimum assistance Dynamic Standing-Level of Assistance: Minimum assistance Standing-Balance Support: Gait belt, Left hand held assist Skilled Rationale: Positioning, Hand placement, Sequencing, Verbal cues, Tactile cues, Technique ofactivity, Initiation and execution of task, Cues for increased safety Standing Balance Skilled Intervention/Details: No overt LOB during standing tasks; pt with L lateral lean upon standing with verbal cueing to correct; Emerita with dynamic standing tasks to faciliate weight shifting and return to midline Mobility Assessment/Intervention: Transfer Assessment/Intervention: Sit to Stand Transfer Jay Level: Sit->Stand: minimum assist (75% patient effort) Assistive Device: Sit->Stand: gait belt Skilled Rationale: Positioning, Sequencing, Hand placement, Verbal cues, Technique of activity, Initiation and execution of task, Cues for increased safety Skilled Intervention/Details: Sit->Stand: x4 armed chair; required L UE support for opitmal positioning; verbal cueing for appropriate sequencing and initaiton of task; noted L lateral lean throughout transfer requring cuieng to correct upon standing Stand to Sit Transfer Jay Level: Stand->Sit: minimum assist (75% patient effort) Assistive Device: Stand->Sit: gait belt Skilled Rationale: Positioning, Sequencing, Hand placement, Verbal cues, Controlled descent for sitting, Initiation and execution of task, Technique of activity, Cues for increased safety Skilled Intervention/Details: Stand->Sit: x4 armed chair Gait/Functional Mobility Assessment/Intervention: Gait Assessment Jay Level: Gait: minimum assist (75% patient effort) Assistive Device: Gait: gait belt, hand held assist Ambulation Distance (Feet): (2x25) Gait Deviations Identified: decreased fátima, decreased gait speed, decreased heel strike, decreased step length, decreased stride length, decreased weight shifting, foot drop/toe drag, increased postural sway, path deviation, narrow base of support Gait Skilled Rationale: verbal, tactile, upright posture, increase step length, improve foot placement, increase foot clearance Skilled Intervention/Details - Gait: x2 bouts of 25 feet; Emerita to faciliate weight shift to R side to improve L LE clearnce; decreased stance time L LE with mild knee buckling, pt able to correct with cueing; first bout pt reaching with R UE for improved stability, improved with cueing and upirght posture facilitatation second bout Stairs Assessment/Intervention: Stairs Assessment Jay Level: Stair Negotiation: not tested Outcome Score(s): CURRENT [facility] Basic Mobility Inpatient Short Form Turning over in bed: 3 - A Little Assistance Sitting/standing from chair: 3 - A Little Assistance Moving from lying on back to sittin - A Little Assistance Moving to and from bed to chair: 3 - A Little Assistance Walk in hospital room: 3 - A Little Assistance Climbing 3-5 steps with a railin - Total Assistance CURRENT [facility] Mobility Raw Score: 16 CURRENT [facility] Mobility Functional Limitation/Modifier: 54.16% Currently Impaired in Basic Mobility- CK Interventions: Intervention 1 Intervention Name: Fwd/bkwd stepping Sets/Reps/Duration: x10 reps B LE Details: promote weight shfiting to R and L side to improve clearnce of opposite LE, promote L LE clearance of floor Assessment & Plan: Pt tolerated today's treatment very well and is progressing toward mobility goals. Pt demonstrates improved stabilty and mechanics with ambulation but is still limited by L sided weakness and balancedeficits. Continue skilled therapy to promote progression of mobility Patient Instruction/Education this session: Positioning of L UE Plan for next session: progress gait training; dynamic standing balance Acute PT Goals Plan of Care by Gagan Lay PT at 08/20/2022 10:26 AM Version 1 of 1 Problem: PT - Mobility Goal: Ambulation Description: Pt will ambulate 150 feet with out an assistive device with minimal assistance to improve ability to navigate home environment. Outcome: Ongoing Problem: PT - Balance/Coordination/Neuro Re-Education Goal: Standing Dynamic/Static Balance Description: Pt will perform standing balance tasks with contact guard assistance with least restrictive device in order to improve functional mobility and safety with standing tasks. Outcome: Ongoing Problem: PT - Transfers Goal: Supine <-> Sit Description: Pt will perform bed mobility with flat bed & no rail with minimal assistance in order to improve functional mobility and safety. Outcome: Ongoing Goal: Sit <-> Stand Description: Pt will perform sit to/from stand transfers with minimal assistance with least restrictive device in order to improve functional mobility and safety. Outcome: Ongoing PT treatment consisted of Gait/Stair Training and Neuro Muscle Re-Education to work and progress towards above goal(s). Treating Therapist: Gagan Lay, CLEMENCIA Additional Details: Co-evaluation/co-treatment performed?: No simultaneous skilled care performed I used facemask, protective eye shield, and gloves in today's patient interaction. Patient location at end of session: chair Alarms on at end of session: chair alarm, RN aware, and spouse present in room Needs in reach. Time In: 1026 Time Out: 1059 Total Visit Time: 33 minutes Total Treatment Time (skilled, billable minutes): 30 minutes Upon discontinuation of Acute Care Physical Therapy Services or patient discharge from the hospitalthis note represents the current Physical Therapy Discharge Summary. * Gera Acosta APRN-SITE ADMINISTRATOR - 08/20/2022 9:17 AM EST CARDIOLOGY CONSULT PROGRESS NOTE Cardiology consult 08/18/2022 for combined systolic/diastolic dysfunction, EF 20%, R Pleural effusion. s/p stroke HPI I saw Ms. Camille Dawkins in follow-up on 08/20/2022. She is a 62 y.o. female with a history of Afib, T2DM, HTN and HFrEF who presented on 08/09/2022 with left sided weakness. ASSESSMENT AND PLAN Acute on chronic HFrEF NYHA class II ACC AHA C, LVEF 20%, NICM - TTE on 08/17 reported severe LV global dysfunction, EF < 20%, grade II diastolic dysfunction, mild biatrial enlargement, RVSP ~ 49 mm Hg - net negative 1 L in past 24 hours/net negative 2.5 L since admission. Appears warm/wet on exam, but improved. Agree with lasix 40mg PO daily. Would discharge on lasix 20mg PO daily and advised patient to take additional 20mg daily PRN if signs of fluid overload develop. - continue losartan 12.5 mg daily & Toprol XL 75 mg BID for GDMT - continue SGLT-2 inhibitor - recommend repeat TTE in 3 months - strict I's & O's, daily standing weights, low sodium diet, optimize electrolytes to keep K > 4.0, Mg > 2.0 - would obtain outpatient chem panel with Mg++ in 2 weeks and forward results to PCP and general cardiology - follow up with [facility] cardiology in 4 weeks, she would like to follow up with [facility] general ob/gyn doctor in [place] area as [facility] has outpatient clinic in [place] - ok to discharge home this afternoon from cardiology standpoint Persistent atrial fibrillation - remains in rate controlled atrial fibrillation on telemetry. Continue Toprol XL 75mg BID - [id number] score of 6- continue Apixaban 5 mg q 12 hours - concern for tachyarrhythmias which may be contributing to her low LVEF - appreciate EP consult regarding rhythm control options for AF -will not pursue rhythm control with DCCV because recent stroke on OAC. Will do HR control for now.HR goal <110 bpm - Consider to use other OAC therapeutic agent, but patient was off apixaban for a brief time duringher scopes given concern for bleeding and reported she restarted the apixaban the day before her CVA. She reports she has been compliant in taking A/C. - From EP standpoint we will wait at least 6 weeks after the stroke to decide regarding rhythm control. After that we can evaluated her and decide regarding best strategy for her. She can follow up with Dr. Davidson or in [place] depending patient preferences. Acute CVA- acute right M2 occlusion, s/p revascularization - management per neurovascular team HTN - controlled. Continue losartan 12.5 mg daily & Toprol XL 75mg BID - DASH diet T2DM - hemoglobin A1c-7.5 - continue SGLT-2 inhibitor - insulin management per primary team INTERVAL HISTORY/REVIEW OF SYSTEMS Over the last day, she had no acute events. She is lying in semi-harrell's position eating breakfastwithout complaints. She denies angina, orthopnea and dyspnea at rest, but has ALAS. Significant other at bedside and symptoms of fluid overload discussed. Review of Systems Constitutional: Negative for chills, decreased appetite and malaise/fatigue. Cardiovascular: Positive for dyspnea on exertion. Negative for chest pain, leg swelling, orthopnea and palpitations. Respiratory: Negative for cough, shortness of breath and wheezing. Musculoskeletal: Negative for muscle cramps. Gastrointestinal: Negative for bloating, abdominal pain and nausea. Genitourinary: Negative for dysuria. PHYSICAL EXAM BP 132/73 (BP Location: Right arm, BP Position: Sitting) Pulse 99 Temp 97.4 F (36.3 C) (Oral) Resp 20 Ht 1.626 m (5' 4.02) Wt 88 kg (193 lb 14.4 oz) SpO2 98% BMI 33.27 kg/m Constitutional: Pleasant female, cooperative, awake and in no distress HEENT: Normocephalic, atraumatic, anicteric sclerae, trachea midline, carotids with good upstroke with no bruits appreciated Chest: Respiratory effort unlabored, Lung sounds clear bilaterally Cardiovascular: JVP ~2cm, tachy rate & irregularly irregular rhythm; S1 variable, S2 normal, nogallop, no friction rub or murmur heard. Abdomen: Soft, non-tender, non-distended. +BS. Extremities: 1+ peripheral edema LLE only. No stasis dermatitis. brachial pulses 2+ bilaterally, dorsalis pedal pulses 2+ bilaterally, Neurological: Alert and oriented to person, place and time, mild dysarthria, LUE weakness Skin: Warm, dry. No cyanosis. Nails show no clubbing. CARDIOVASCULAR IMAGING/DATA Results for orders placed during the hospital encounter of 08/09/22 ECHOCARDIOGRAM 08/17/2022 (Final) Interpretation Summary Dilated LV with severe global systolic dysfunction. EF < 20%. Abnormal diastolic function, at least grade II. Normal RV size with moderate to severe systolic dysfunction. Mild biatrial enlargement. Mild mitral regurgitation. Moderate tricuspid regurgitation. Estimated RVSP 49mmHg. Using CO jet, estimated mPAP is 38mmHg, estimated PADP 25mmHg. No prior echo available for comparison. 24 hour telemetry (personally reviewed): Atrial fibrillation 90's to low 100's ADDITIONAL DATA REVIEWED Intake/Output Summary (Last 24 hours) at 08/20/2022 0917 Last data filed at 08/20/2022 0858 Gross per 24 hour Intake 1722 ml Output 2600 ml Net -878 ml Temp: [97.4 F (36.3 C)-98.1 F (36.7 C)] 97.4 F (36.3 C) Pulse (Heart Rate): [99-102] 99 Resp Rate: [18-23] 20 BP: (113-132)/(59-81) 132/73 O2 Sat (%): [92 %-100 %] 98 % Weight: [86.8 kg (191 lb 6.4 oz)-88 kg (193 lb 14.4 oz)] 88 kg (193 lb 14.4 oz) Oxygen Therapy O2 Sat (%): 98 % O2 Device: room air Body mass index is 33.27 kg/m . LABS Bun/Creat/Cl/CO2/Glucose: 27/1.32/100/30/229 (08/19 1956-08/20 344) Na/K+/Phos/Mg/Ca: 137/3.6/--/1.6/-- (08/20 344) BNP (pg/mL) Date Value 08/18/2022 1,109 (H) Lab Results Component Value Date CHOLESTEROL 67 08/10/2022 TRIG 54 08/10/2022 HDL 25 (L) 08/10/2022 LDLCALC 31 08/10/2022 CURRENT MEDICATIONS: apixaban 5 mg Oral Q12H atorvastatin 40 mg Oral QHS dapagliflozin 10 mg Oral Daily DULoxetine 30 mg Oral QHS esomeprazole 40 mg Oral Q12H furOSEmide 40 mg Oral Daily insulin glargine injection 5 Units Subcutaneous Q24H Insulin lispro Subcutaneous 4x daily w/meals, HS lidocaine 1 patch Transdermal Q24H losartan 12.5 mg Oral Daily metoprolol succinate 75 mg Oral Q12H mirtazapine 15 mg Oral QHS senna 8.6 mg Oral QAM traZODone 100 mg Oral QHS [id number] Score for Atrial Fibrillation Stroke Risk Age in Years: <65 Sex: Female CHF History: Yes Hypertension History: Yes Stroke/TIA/Thromboembolism History: Yes Vascular Disease History: No Diabetes History: Yes [id number] Score: 6 [id number] Score for Atrial Fibrillation Stroke Risk Age in Years: <65 Sex: Female CHF History: Yes Hypertension History: Yes Stroke/TIA/Thromboembolism History: Yes Vascular Disease History: No Diabetes History: Yes [id number] Score: 6 Thank you for this consult. Please call with questions. We will continue to follow along. ZENIA Chao Cardiology Consult Service Phone: [phone] * Raine Bryan MD - 08/19/2022 4:18 PM EST Stroke Attending Addendum (Date of service 08/19/22): I have interviewed and examined patient. I have reviewed Robert Mujica CNP's note and agree with the following highlights, additions, and addendums: The patient is a 62 y.o. right-handed female witha history of hypertension, diabetes mellitus, atrial fibrillation on eliquis, congestive heart failure who on 08/08/22 at 2000 was LKN and then developed symptoms of left hemiparesis. Patient was taken to [facility] where Telestroke showed an NIHSS of 6. CT brain was negative for acute changes. OSH CT angiogram head/neck showed a right M2 occlusion. The patient did not receive IVtPA. Patient transferred to [facility] ER and initial NIHSS on arrival was 8. CTP shows a right MCA MM. The patient was taken for intra-arterial therapy and had TICI 2b recanalization. The patient was transferred to [facility]. LDL 31, HgbA1c 7.5. MRI brain diffusion weighted images acute right MCA infarct (small). TTE EF <20%. Cards consulted. Interval Overnight History: 123/89. Cards consulted yesterday. Given IV lasix. Neurological examination shows left hemiparesis and dysarthria, NIHSS 6 (LF-1, LUE-4, dys-1).Assessment/Plan: Acute right MCA ischemic stroke, right M2 MCA occlusion s/p intra-arterial therapywith TICI 2b recanalization Post-stroke day # 10. Stroke mechanism is cardioembolism subtype (due to atrial fibrillation). Stroke work-up completed. Resumed home eliquis. Continue vascular risk factor modification. On lipitor 40. On lopressor, lasix, losartan. DVT prophylaxis with SCDs and eliquis.PT/OT consults-ARF, precert. Enrolled in [employer]. Resumed home losartan. Home spironolactone held. Continue IV diuresis. EP consult. Raine Bryan MD * Delmis Abreu APRN-IVETTE - 08/19/2022 9:39 AM EST CARDIOLOGY CONSULT PROGRESS NOTE Cardiology consult 08/18/2022 for combined systolic/diastolic dysfunction, EF 20%, R Pleural effusion. s/p stroke HPI I saw Ms. Camille Dawkins in follow-up on 08/19/2022. She is a 62 y.o. female with a history of Afib, T2DM, HTN and HFrEF who presented on 08/09/2022 with left sided weakness. ASSESSMENT AND PLAN Acute on chronic HFrEF NYHA class II ACC AHA C, LVEF 20%, NICM - TTE on 08/17 reported severe LV global dysfunction, EF < 20%, grade II diastolic dysfunction, mild biatrial enlargement, RVSP ~ 49 mm Hg - net negative 2.7 L in past 24 hours/net negative 1.5 L since admission. Appears hypervolemic on exam. Agree with diuresing with furosemide 40 mg IV x 1 - continue losartan 12.5 mg daily & Toprol XL 100 mg daily for GDMT - strict I's & O's, daily standing weights, low sodium diet, optimize electrolytes to keep K > 4.0, Mg > 2.0 - follow up with OP cardiology in 2-4 weeks- patient states her ob/gyn doctor is at ([place]) Persistent atrial fibrillation - remains in rate controlled atrial fibrillation on telemetry. Continue Toprol XL 100 mg daily - [id number] score of 6- continue Apixaban 5 mg q 12 hours - concern for tachyarrhythmias which may be contributing to her low LVEF- recommend EP consult regarding rhythm control options for AF Acute CVA- acute right M2 occlusion, s/p revascularization - management per neurovascular team HTN - controlled. Continue losartan 12.5 mg daily & Toprol Xl 100 mg daily T2DM - hemoglobin A1c-7.5 - insulin management per primary team INTERVAL HISTORY/REVIEW OF SYSTEMS Over the last day, she had no acute events. She is sitting up in the chair. Review of Systems Constitutional: Negative for chills, decreased appetite and malaise/fatigue. Cardiovascular: Positive for dyspnea on exertion. Negative for chest pain, leg swelling, orthopnea and palpitations. Respiratory: Negative for cough, shortness of breath and wheezing. Musculoskeletal: Negative for muscle cramps. Gastrointestinal: Negative for bloating, abdominal pain and nausea. Genitourinary: Negative for dysuria. PHYSICAL EXAM BP 123/89 (BP Location: Right arm, BP Position: Sitting) Pulse 105 Temp 97.5 F (36.4 C) (Oral) Resp 24 Ht 1.626 m (5' 4.02) Wt 92.1 kg (203 lb 0.7 oz) SpO2 100% BMI 34.83 kg/m Constitutional: Pleasant female, cooperative, awake and in no distress HEENT: Normocephalic, atraumatic, anicteric sclerae, trachea midline, carotids with good upstroke with no bruits appreciated Chest: Respiratory effort unlabored, Lung sounds clear bilaterally Cardiovascular: + JVD/JVP ~ 11 cm H20, + HJR appreciated. Normal rate & irregularly irregular rhythm; S1 variable, S2 normal, no gallop, no friction rub or murmur heard. Abdomen: Soft, non-tender, non-distended. +BS. Extremities: 1+ peripheral edema LLE only. No stasis dermatitis. brachial pulses 2+ bilaterally, dorsalis pedal pulses 2+ bilaterally, Neurological: Alert and oriented to person, place and time, mild dysarthria, LUE weakness Skin: Warm, dry. No cyanosis. Nails show no clubbing. CARDIOVASCULAR IMAGING/DATA Results for orders placed during the hospital encounter of 08/09/22 ECHOCARDIOGRAM 08/17/2022 (Final) Interpretation Summary Dilated LV with severe global systolic dysfunction. EF < 20%. Abnormal diastolic function, at least grade II. Normal RV size with moderate to severe systolic dysfunction. Mild biatrial enlargement. Mild mitral regurgitation. Moderate tricuspid regurgitation. Estimated RVSP 49mmHg. Using CO jet, estimated mPAP is 38mmHg, estimated PADP 25mmHg. No prior echo available for comparison. 24 hour telemetry (personally reviewed): Atrial fibrillation rate 80's to low 100's ADDITIONAL DATA REVIEWED Intake/Output Summary (Last 24 hours) at 08/19/2022 0939 Last data filed at 08/19/2022 0905 Gross per 24 hour Intake 892 ml Output 3350 ml Net -2458 ml Temp: [97.5 F (36.4 C)-97.8 F (36.6 C)] 97.5 F (36.4 C) Pulse (Heart Rate): [97-105] 105 Resp Rate: [18-24] 24 BP: (108-123)/(74-89) 123/89 O2 Sat (%): [97 %-100 %] 100 % Oxygen Therapy O2 Sat (%): 100 % O2 Device: room air Body mass index is 34.83 kg/m . LABS Bun/Creat/Cl/CO2/Glucose: 32/1.38/103/28/156 (08/19 447-08/19 825) Na/K+/Phos/Mg/Ca: 138/3.5/--/1.5/-- (08/19 447) WBC/Hgb/Hct/Plts: 9.03/10.4/34.4/195 (08/19 243) BNP (pg/mL) Date Value 08/18/2022 1,109 (H) Lab Results Component Value Date CHOLESTEROL 67 08/10/2022 TRIG 54 08/10/2022 HDL 25 (L) 08/10/2022 LDLCALC 31 08/10/2022 CURRENT MEDICATIONS: apixaban 5 mg Oral Q12H atorvastatin 40 mg Oral QHS dapagliflozin 10 mg Oral Daily DULoxetine 30 mg Oral QHS esomeprazole 40 mg Oral Q12H insulin glargine injection 5 Units Subcutaneous Q24H Insulin lispro Subcutaneous 4x daily w/meals, HS losartan 12.5 mg Oral Daily metoprolol succinate 100 mg Oral Daily mirtazapine 15 mg Oral QHS senna 8.6 mg Oral QAM traZODone 100 mg Oral QHS [id number] Score for Atrial Fibrillation Stroke Risk Age in Years: <65 Sex: Female CHF History: Yes Hypertension History: Yes Stroke/TIA/Thromboembolism History: Yes Vascular Disease History: No Diabetes History: Yes [id number] Score: 6 Thank you for this consult. Please call with questions. We will continue to follow along. ZENIA Cruz Cardiology Consult Service Phone: [phone] * Bettina Figueroa OT - 08/19/2022 9:38 AM EST Acute Occupational Therapy Treatment Prior to Admission AM-PAC Score: PRIOR LEVEL AM-PAC Activity Raw Score: 24 PRIOR LEVEL AM-PAC Mobility Raw Score: 24 Current AM-PAC score(s): CURRENT AM-PAC Activity Raw Score: 17 Based on the above AM-PAC score(s), and OT clinical judgment, discharge destination recommendation is: Inpatient Rehab Facility Barriers to discharge home: Lack of appropriate DME, Patient unable to navigate stairs to enter home, Patient needs assistance with functional mobility, Patient needs assistance with ADLs, Patient needs assistance with IADLs (see note below), Patient needs assistance with medication management, Patient needs assistance with self-care for medical condition (see note below), Cognitive impairments that impact safety (see note below), Unsafe home environment given patient's current status (see notebelow) Supporting Factors (would benefit from skilled therapy services): Patient status is anticipated to be appropriate to tolerate inpatient rehab therapy requirements at time of discharge from acute care, Impaired functional status, Decreased strength, Impaired balance, Decreased endurance, Impaired self-care abilities, Impaired cognitive status, Assistance needed with functional mobility, Fall risk,Recent decline in functional mobility, Recent decline in self-care abilities, Recent decline in cognitive function, Patient has appropriate assistance and setup at home for ultimate discharge to homeonce patient has progressed functionally following inpatient rehab Mobility equipment available at home: rollator, stair glide ADL equipment available at home: shower chair, grab bars Equipment recommendations for discharge: wheelchair, bedside commode Current therapy frequency recommendation(s) in acute: 5 times a week Precautions and Weightbearing Status: Telemetry Patient Safety Communication Prior to Visit: Nursing Subjective: Pt alert and agreeable to therapy. Pt states I've been trying to use my left hand more Pain: General Pain Documentation (Adult, OB, Peds) Presence of Pain: complains of pain/discomfort Pain Location: wrist, left, foot, left DVPRS (Defense and Veterans Pain Rating Scale) DVPRS: Rest: (observed to be mild) Objective/Observation: Vitals/Vitals Responses to Treatment: Pt observed to be stable throughout session. Respiratory Status O2 Device: room air Cognition Overall Cognitive Status: Impaired Arousal/Alertness: Delayed responses to stimuli Orientation Level: Oriented to person, Oriented to place, Oriented to time Following Commands: Follows one step commands with increased time, Follows one step commands with repetition Safety Judgment: Decreased awareness of need for assistance Awareness of Errors: Assistance required to identify errors made, Assistance required to correct errors made Deficits: Decreased awareness of deficits Attention Span: Attends with cues to redirect Memory: Decreased recall of recent events Problem Solving: Assistance required to identify errors made, Assistance required to generate solutions ADL Assessment/Intervention: ADLs: Eating Assistance: Grooming Assistance: Moderate Grooming Location: standing at sink Grooming Skilled Rationale (Verbal/Tactile/Visual/Demonstration): Facilitate positioning, Cues for increased safety, Proximal support to increase distal control for task, [id number] assist, One-handed techniques, Compensatory techniques Grooming Intervention/Details: Pt completed oral hygiene while standing at sink and washed face while sitting in recliner with proximal support and verbal cues for positioning. Bathing Assistance: UE Dressing Assistance: LE Dressing Assistance: Toilet Assistance: Contact guard assist Toileting Location: toilet Toilet Skilled Rationale (Verbal/Tactile/Visual/Demonstration): Facilitate positioning, Technique of activity, Compensatory techniques Toileting Intervention/Details: Pt completed toileting with cues to compelte sheila hygiene while sitting on toilet to increase independence. Extremity Assessments: See OT Evaluation flowsheet for Extremity Measurement updates. Balance: Sitting Balance Static Sitting-Level of Assistance: Standby Dynamic Sitting-Level of Assistance: Contact guard Skilled Rationale: Sequencing, Positioning, Verbal cues Sitting Balance Skilled Intervention/Details: Pt tolerated sitting EOB in preparation for functional transfer. Standing Balance Static Standing-Level of Assistance: Minimum assistance Dynamic Standing-Level of Assistance: Moderate assistance Standing-Balance Support: Gait belt, Left hand held assist Skilled Rationale: Positioning, Sequencing, Verbal cues, Hand placement Standing Balance Skilled Intervention/Details: Pt stood at sink 5 minutes while completing groomigntasks to incorporate functional reach outside base of support to challenege dynamic standing balance. Skin and Edema: Mobility Assessment/Intervention: Supine to Sit Mobility Jay Level: Supine->Sit: minimum assist (75% patient effort) Bed Features/Set-up: Supine->Sit: Head of bed elevated, Use of bed rail Skilled Rationale: Positioning, Sequencing, Hand placement, Verbal cues Skilled Intervention/Details: Supine->Sit: Facilitated log roll with cues for hand placement andassistance at hips. Transfer Assessment/Intervention: Sit to Stand Transfer Jay Level: Sit->Stand: (min A to mod A) Assistive Device: Sit->Stand: gait belt Skilled Rationale: Positioning Skilled Intervention/Details: Sit->Stand: Pt stoof from EOB and recliner with cues for hand placement on transfer surface. Stand to Sit Transfer Jay Level: Stand->Sit: minimum assist (75% patient effort) Assistive Device: Stand->Sit: gait belt Skilled Rationale: Positioning, Sequencing, Verbal cues, Hand placement Skilled Intervention/Details: Stand->Sit: Faciliated controlled descnet with cues to reach back to transfer surface. Toilet Transfer Jay Level: Toilet: minimum assist (75% patient effort) Assistive Device: Toilet: gait belt Skilled Rationale: Hand placement, Verbal cues, Positioning Skilled Intervention/Details: Toilet: Pt completed transfer on and off raised toilet seat over toilet in bathroom with cues. Functional Mobility: Functional Mobility Jay Level: Functional Mobility/Gait: moderate assist (50% patient effort) Physical Assist: Functional Mobility/Gait: chair follow Assistive Device: Functional Mobility/Gait: gait belt (LUE support) Functional Mobility Distance: Distance needed to access restroom Functional Mobility Skilled Rationale: Cues for cognitive deficit, Cues for increased safety, Energy conservation, Proper pacing Skilled Intervention/Details - Functional Mobility/Gait: Cues for weight shift to affected side andhand placement. Outcome Score(s): CURRENT [facility] Daily Activity Inpatient Short Form Putting on/Taking Off Lower Body Clothin - A Lot of Assistance Bathin - A Lot of Assistance Toiletin - A Little Assistance Putting on/Taking Off Upper Body Clothin - A Little Assistance Groomin - A Little Assistance Eatin - No Assistance CURRENT [facility] Activity Raw Score: 17 CURRENT -[facility] Activity Functional Limitation/Modifier: 50.11% Currently Impaired in Daily Activity- CK Interventions: Assessment & Plan: Pt is showing good progress as demonstrated by increased endurance. Improvements have allowed for progress in OT goals such as toilet transfers. Current impairments and limitations include endurance,balance, activity tolerance, and UE strength. Pt shows continued need of OT services in acute setting to further progress toward best discharge disposition. Patient Instruction/Education this session: Patient Instruction: ot role, plan of care, positioningof LUE Plan for next session: lower body dressing Acute OT Goals Plan of Care by Bettina Figueroa OT at 08/19/2022 9:38 AM Version 1 of 1 Problem: OT - ADLs Goal: Grooming Description: Pt will complete grooming Edge of bed with standby assistance for improved ability to safely complete ADLs. Outcome: Progressing Toward Goal Problem: OT - Visual Scanning Goal: Visual Tracking Description: Pt will track past midline to left 6 completions during session with 20 % cues, to attend to familiar object/person for ADL participation. Outcome: Progressing Toward Goal Problem: OT - Cognition Goal: Cognition simple ADL Description: Pt will demonstrate improved cognition, completing simple ADL task for 10 minutes with2 cues required to maintain attention, for improved safety and success at discharge destination. Outcome: Progressing Toward Goal Problem: OT - Strength/ROM Goal: Neuro Re-education Description: Pt will participate in neuro re-ed of (LUE) to improve strength by 2 muscle grades in each group, for improved use in ADLs. Outcome: Progressing Toward Goal Problem: OT - Balance Goal: Balance - Standing Description: Pt will perform 6-8 minutes of functional ADL task in standing with contact guard assistance and balance level of contact guard to promote safety and improved balance required for self-care activities. Outcome: Progressing Toward Goal Problem: OT - Transfers Goal: Transfers Sit -> Stand Description: Pt will demonstrate good safety awareness during sit to/from stand functional transferwith CGA and least restrictive device for improved safety and success at recommended discharge destination. Outcome: Progressing Toward Goal OT treatment consisted of ADL retraining to work and progress towards above goal(s). Treating Therapist: Bettina Figueroa OT Additional Details: Co-evaluation/co-treatment performed?: Yes, simultaneous billable skilled care This co-treatment session performed between OT and PT was beneficial, necessary and provided distinct services in progressing this person's individual plan of care. Medical complexity with functionaldeficits that necessitate two skilled therapy disciplines working concurrently to optimize patient's progress towards each discipline's goals. This co-treatment was medically necessary due to patient's: Coordination issues. Patient benefits from simultaneous treatment from another therapy discipline to maximize progress towards functional mobility Occupational Therapy goals. I used facemask, protective eye shield, and gloves in today's patient interaction. Patient location at end of session: chair Alarms on at end of session: chair alarm and RN aware Needs in reach. Time In: 906 Time Out: 937 Total Visit Time: 31 minutes Total Treatment Time (skilled, billable minutes): 31 minutes Upon discontinuation of Acute Care Occupational Therapy Services or patient discharge from the hospital this note represents the current Occupational Therapy Discharge Summary. * VINCENZO Quinones - 08/19/2022 9:32 AM EST NUTRITION FOLLOW-UP Nutrition Plan of Care: 1. Continue current diet order. 2. Will provide chocolate Glucerna (220 kcal, 10 g PRO each) twice daily with Breakfast and Dinner to promote good po intake and promote healing. 3. Monitor for significant weight changes. 4. Monitor and encourage po intakes with goal of average po being 75-100%. 5. linen tech to follow. Pt unavailable and information obtained via chart review Current Diet Orders Procedures DIET SOFT AND BITE SIZED (IDDSI 6) Liquid Thin (IDDSI 0); Fluid Restriction 2000mL (1000mL Nursing,1000mL Nutrition); Cardiac - Very Low Sodium Meds whole or crushed in puree Standing Status: Standing Number of Occurrences: 1 Order Specific Question: Determine a Liquid Consistency: Answer: Liquid Thin (IDDSI 0) Order Specific Question: Additional Modifier: Answer: Fluid Restriction 2000mL (1000mL Nursing, 1000mL Nutrition) Order Specific Question: Additional Modifier: Answer: Cardiac - Very Low Sodium Appetite: fair Per doc flow sheet: Date Breakfast Lunch Dinner 08/18 75% - 75% 08/17 50% - 75% 08/16 50% - - 08/15 50% 100% 50% + Glucerna 08/14 Ensure 75% 100% + Glcuerna Po average over past five days is 70% of 10 meals. Admit wt: 206 lb 08/09 Last recorded : 08/17 Weight: 92.1 kg (203 lb 0.7 oz) Height: 162.6 cm (5' 4.02) no significant weight changes in 10 days Net IO Since Admission: -1,185.36 mL [08/19/22 0933] Skin Luis Score: 16 STAND skin bundle initiated Active Wounds: Wound Sheath Site 08/09/22 0821 Right Femoral (10) Wound 08/10/22 2200 Left;Lower;Posterior Arm (9) Wound Left;Posterior Heel Wound Posterior;Right Heel Edema: 2+(mild): L arm, L hand Summary : Pt is at continued nutritional risk due to admission diagnosis, chronic conditions, decreased skin integrity, and edema. Pt is on STAND skin bundle. Pt's appetite seems to be fair. She is eating an average of 70% of the past 10 meals. No significant weight changes since admission. Will continue to provide chocolate Glucerna with breakfast and dinner to promote good po intake and promotehealing. Nutrition to follow. VINCENZO QuinonesR Pager:[phone] * Gagan Lay, PT - 08/19/2022 9:07 AM EST Acute Physical Therapy Treatment Prior to Admission [facility] score(s): PRIOR LEVEL AM-PAC Mobility Raw Score: 24 PRIOR LEVEL AM-PAC Activity Raw Score: 24 Current AM-PAC score(s): CURRENT AM-PAC Mobility Raw Score: 16 Based on the above AM-PAC score(s) and PT clinical judgment, patient is a good candidate for discharge to Inpatient Rehab Facility Barriers to discharge home: Patient needs assistance with functional mobility Supporting Factors (would benefit from skilled therapy services): Patient status is anticipated to be appropriate to tolerate inpatient rehab therapy requirements at time of discharge from acute care, Impaired functional status, Decreased strength, Impaired balance, Impaired self-care abilities, Decreased endurance necessitating skilled therapy services, but able to tolerate therapy requirements for inpatient rehab, Impaired cognitive status, Fall risk Mobility equipment available at home: rollator, stair glide ADL equipment available at home: shower chair, grab bars Equipment needed for discharge: to be determined Current therapy frequency recommendation in acute: Therapy Frequency: 5 times a week Precautions and Weightbearing Status: Existing Precautions/Restrictions: fall Telemetry Patient Safety Communication Prior to Visit: Nursing Subjective: Pt supine in bed upon room entry on phone with spouse; pt reported that she is doing pretty well and that breakfast was okay; agreeable to PT Pain: General Pain Documentation (Adult, OB, Peds) Presence of Pain: complains of pain/discomfort Pain Location: foot, left, wrist, left DVPRS (Defense and Veterans Pain Rating Scale) DVPRS: Rest: (not numerically rated this session) Objective/Observation: Vitals/Vitals Responses to Treatment: No abnormal responses observed throughout treatment HR 95-137 bpm; returned to baseline ~100 bpm at end of session Respiratory Status O2 Device: room air Flow (L/min): 0 Cognition Overall Cognitive Status: Impaired Arousal/Alertness: Delayed responses to stimuli Orientation Level: Oriented to person, Oriented to place, Oriented to time Following Commands: Follows one step commands with increased time, Follows one step commands with repetition Safety Judgment: Decreased awareness of need for assistance, Decreased awareness of need for safety Awareness of Errors: Assistance required to identify errors made, Assistance required to correct errors made, Decreased awareness of errors Deficits: Decreased awareness of deficits Attention Span: Attends with cues to redirect Memory: Decreased recall of recent events, Decreased short term memory Problem Solving: Assistance required to identify errors made, Assistance required to generate solutions, Assistance required to implement solutions Extremity Assessments: See PT Evaluation flowsheet for Extremity Measurement updates. Balance: Sitting Balance Static Sitting-Level of Assistance: Standby Dynamic Sitting-Level of Assistance: Contact guard Skilled Rationale: Positioning, Sequencing, Hand placement, Verbal cues, Technique of activity, Initiation and execution of task, Cues for increased safety Sitting Balance Skilled Intervention/Details: Tolerated EOB ~5 min in preparation to stand; no overt LOB or lateral lean noted Standing Balance Static Standing-Level of Assistance: Minimum assistance Dynamic Standing-Level of Assistance: Moderate assistance Standing-Balance Support: Gait belt, Left hand held assist Skilled Rationale: Positioning, Sequencing, Hand placement, Verbal cues, Tactile cues, Technique ofactivity, Initiation and execution of task, Cues for increased safety Standing Balance Skilled Intervention/Details: Complete dynamic standing tasks at sink ~5 min; verbal cueing for improved foot placement for increased stability and L LE extension to promote improvedweight shift to R side Mobility Assessment/Intervention: Supine to Sit Mobility Jay Level: Supine->Sit: minimum assist (75% patient effort) Bed Features/Set-up: Supine->Sit: Head of bed elevated, Use of bed rail Skilled Rationale: Positioning, Sequencing, Hand placement, Tactile cues, Technique of activity, Initiation and execution of task, Cues for increased safety, Verbal cues Skilled Intervention/Details: Supine->Sit: Increased time required; verbal cueing for appropriate sequencing and initiation of task Transfer Assessment/Intervention: Sit to Stand Transfer Jay Level: Sit->Stand: minimum assist (75% patient effort) (Emerita- progressed to ModA with fatigue) Assistive Device: Sit->Stand: gait belt Skilled Rationale: Positioning, Sequencing, Hand placement, Verbal cues, Tactile cues, Ischial assist, Facilitate anterior shift, Full extension to upright positioning/posture, Finding/maintaining midline positioning, Technique of activity, Initiation and execution of task, Cues for increased safety Skilled Intervention/Details: Sit->Stand: x1 EOB, x1 elevated toilet, x2 armed chair; verbal andtactile cueing required for appropriate positioning and initiation; increased WS to R side throughout transfer with verbal cueing to correct upon standing; no overt LOB upon standing with L [employer] MA[employer]GER Stand to Sit Transfer Jay Level: Stand->Sit: minimum assist (75% patient effort) Assistive Device: Stand->Sit: gait belt Skilled Rationale: Positioning, Sequencing, Hand placement, Verbal cues, Tactile cues, Controlled descent for sitting, Technique of activity, Initiation and execution of task, Cues for increased safety Skilled Intervention/Details: Stand->Sit: x1 elevated toilet, x3 armed chair; verbal cueing for R UE placement for improved safety, decreased eccentric control Gait/Functional Mobility Assessment/Intervention: Gait Assessment Jay Level: Gait: minimum assist (75% patient effort) Physical Assist: Gait: chair follow Assistive Device: Gait: gait belt, hand held assist Ambulation Distance (Feet): (2x25) Gait Deviations Identified: decreased fátima, decreased gait speed, decreased heel strike, decreased step length, decreased stride length, decreased weight shifting, flexed posture, foot drop/toe drag, increased postural sway, path deviation, scissoring, narrow base of support Gait Skilled Rationale: verbal, tactile, upright posture, increase step length, increase foot clearance Skilled Intervention/Details - Gait: x2 bouts of 25 feet requiring tactile cuieng for improved weight shift to L side to improve R swing; verbal cueing for increased L step length with noted decreased coordination of foot placement resulting in narrow base of support at times Stairs Assessment/Intervention: Stairs Assessment Jay Level: Stair Negotiation: not tested Outcome Score(s): CURRENT AM-PAC Basic Mobility Inpatient Short Form Turning over in bed: 3 - A Little Assistance Sitting/standing from chair: 3 - A Little Assistance Moving from lying on back to sittin - A Little Assistance Moving to and from bed to chair: 3 - A Little Assistance Walk in hospital room: 3 - A Little Assistance Climbing 3-5 steps with a railin - Total Assistance CURRENT [facility] Mobility Raw Score: 16 CURRENT [facility] Mobility Functional Limitation/Modifier: 54.16% Currently Impaired in Basic Mobility- CK Assessment & Plan: Pt tolerated today's treatment session well and is progressing toward her mobility goals. Pt continues to improve standing tolerance and stability but continues to be limited by L sided weakness, standing instability, and decreased functional endurance. Continue skilled therapy to promote progression of mobility. Patient Instruction/Education this session: Importance of OOB mobility, role of PT Plan for next session: Progress gait training; static/dynamic standing balance; sit to stand transfer; L LE functional strengthening Acute PT Goals Plan of Care by Gagan Lay PT at 08/19/2022 9:07 AM Version 1 of 1 Problem: PT - Mobility Goal: Ambulation Description: Pt will ambulate 150 feet with out an assistive device with minimal assistance to improve ability to navigate home environment. Outcome: Progressing Toward Goal Problem: PT - Balance/Coordination/Neuro Re-Education Goal: Standing Dynamic/Static Balance Description: Pt will perform standing balance tasks with contact guard assistance with least restrictive device in order to improve functional mobility and safety with standing tasks. Outcome: Progressing Toward Goal Problem: PT - Transfers Goal: Supine <-> Sit Description: Pt will perform bed mobility with flat bed & no rail with minimal assistance in order to improve functional mobility and safety. Outcome: Progressing Toward Goal Goal: Stand-Pivot Description: Pt will perform stand/pivot transfer to/from bed/chair/commode with minimal assistancewith least restrictive device in order to improve functional mobility and safety. Outcome: Progressing Toward Goal Goal: Sit <-> Stand Description: Pt will perform sit to/from stand transfers with minimal assistance with least restrictive device in order to improve functional mobility and safety. Outcome: Progressing Toward Goal PT treatment consisted of Gait/Stair Training and Neuro Muscle Re-Education to work and progress towards above goal(s). Treating Therapist: Gagan Lay PT Additional Details: Co-evaluation/co-treatment performed?: Yes, simultaneous billable skilled care This co-treatment session performed between PT and OT was beneficial, necessary and provided distinct services in progressing this person's individual plan of care. Medical complexity with functionaldeficits that necessitate two skilled therapy disciplines working concurrently to optimize patient's progress towards each discipline's goals. This co-treatment was medically necessary due to patient's: Postural control and safety. Patient benefits from simultaneous treatment from another therapy discipline to maximize progress towards above Physical Therapy goals. I used facemask, protective eye shield, and gloves in today's patient interaction. Patient location at end of session: chair Alarms on at end of session: chair alarm and RN aware Needs in reach. Time In: 906 Time Out: 937 Total Visit Time: 31 minutes Total Treatment Time (skilled, billable minutes): 31 minutes Upon discontinuation of Acute Care Physical Therapy Services or patient discharge from the hospitalthis note represents the current Physical Therapy Discharge Summary. * Robert Mujica APRN-IVETTE - 08/19/2022 8:14 AM EST NEUROVASCULAR STROKE SERVICE Daily Progress Note IDENTIFYING INFORMATION Camille Dawkins MR# [id number] 08/19/2022 HISTORY OF PRESENT ILLNESS Camille Dawkins is a 62 y.o. female with PMH significant for HTN, DM, Afib on Eliquis- last dose 08/08 whopresented to an OSH on 08/09 with left sided weakness. LKW 08/08 @ 1999. She was evaluated via telestroke. NIHSS 6. Not a candidate for iv thrombolysis due to Eliquis use. CTA showed R M2 occlusion. She was [facility]red [facility] for further care. Upon arrival to [facility], NIHSS was 8. CTP shows 2ml core and 86 ml penumbra she was taken to OR and a TICI 2b revascularization was achieved. INTERVAL HISTORY 08/10: Brain MRI pending. Left arm weakness worse. updated at bedside. 08/11: MRI done, home lopressor resumed, diet advanced 08/14: Lasix held due to soft BP with SBP as low as 90, 250 ml bolus given with improvement. Neuro exam stable. AC initiated for afib 08/15: No events overnight. SBP 100s. Improved oral intake. 08/16: Home mirtazepine/trazadone added for anxiety/insomnia, speech re-eval today 08/17: TTE pending. No events overnight. Home lasix resumed. Metoprolol changed to XL, diet advance to thin liquids. Per speech recommendations 08/18: chest xray reviewed, BNP pending, TTE reviewed. Cardiology recs pending, CICI overnight. IV lasix 40 mg x1 08/19: No overnight events. Diuresed w/ 40mg IV lasix. K/Mg replaced. EP consulted for rhythm control. C/o L wrist pain, XRay negative for fracture. PHYSICAL EXAM Gen: awake, alert, NAD HEENT: normocephalic, no scalp lesions or tenderness Neck: trachea midline CV: +S1S2, irregular-afib on quality assurance monitor final, no m/r/g Lungs: clear, but diminished, bilaterally with equal chest rise. On RA. +dyspnea on exertion Abd: soft, nontender, nondistended, +BS x4 quadrants Extrem: Warm and well perfused, no edema Neuro: Oriented x3, RAM x 3, Mild dysarthria CN II - All visual rankin intact CN II/III - PERRLA CN III/IV/ - EOMI CN V - Light touch to face intact in V1-3 CN VII - Left facial droop CN VIII - Hearing intact CN X - Cough present CN XI - Left shoulder weakness CN XII - midline protrusion of tongue MOTOR EXAMINATION: LUE with minimal anti-gravity movement NIHSS 08/19/2022 Provider NIH Stroke Scale NIH Interval (Provider): daily NIH Level of Conciousness (Provider): 0 NIH LOC Questions (Provider): 0 NIH LOC Commands (Provider): 0 NIH Best Gaze (Provider): 0 NIH Visual (Provider): 0 NIH Facial Palsy (Provider): 2 NIH Left Arm Motor (Provider): 3 NIH Right Arm Motor (Provider): 0 NIH Left Leg Motor (Provider): 0 NIH Right Leg Motor (Provider): 0 NIH Limb Ataxia (Provider): 0 NIH Sensory (Provider): 0 NIH Best Language (Provider): 0 NIH Dysarthria (Provider): 1 NIH Extinction and Inattention (Provider): 0 NIH Total Score (Provider): 6 ASSESSMENT AND PLAN Neuro: Acute right MCA stroke, R M2 occlusion, s/p TICI 2b CTH: Acute ischemic infarct in the right insula. CTA brain/neck: Right M2 occlusion CTP: Large perfusion mismatch of 86 ml in right MCA territory MRI brain: R MCA stroke, no hemorrhage TTE: EF <20%, grade II diastolic dysfunction LDL 31, A1c 7.5 -Stroke Etiology (TOAST Criteria): Cardio embolic from A fib -Antiplatelet not indicated in addition to AC -AC plan: eliquis 5 mg BID -Statin therapy: Lipitor 40 mg -Blood Pressure goal: SBP <140 Ischemic Stroke Core Measures -NIHSS on admission 8 -Patient has been started on Mechanical (SCD's) and Pharmacological (SQ heparin/Lovenox) DVT prophylaxis. -Antiplatelet therapy has been initiated, Aspirin 81 mg daily. -Anticoagulation therapy was indicated for this patient, d/t A fib -Patients LDL 31 and HgbA1c 7.5 were checked and the patient may discharged on Atorvastatin daily. -Dysphagia screening ordered, and will be completed prior to patient receiving oral intake. -Stroke education booklet has been ordered and will be provided by the RN that includes both written and verbal education to the patient and family regarding ischemic strokes. We have reviewed the patient's personal modifiable risk factors including: HTN, A fib, DM as well as education on reducing these risk factors -Patient is being assessed for Rehab by PT/OT/Speech and PM&R if indicated. 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 CXR w/ R pleural effusion, BNP 1109, given IV lasix 40 mg x1 -Cardiology consulted: recommended continue with IV diuresis, continue metoprolol succinate, losartan, and farxiga, consult EP. 08/19: EP consulted. IV diuresed with 40 mg IV lasix. PO lasix held d/t IV lasix -Home spironolactone 25 mg daily & furosemide 20 mg daily held while being IV diuresed, can resume as able. -AC plan: Resumed home eliquis post stroke day 5 (08/14/22) Dysphagia: -soft and bite size, thin liquids, meds whole or crushed in puree -Speech following DM type II, (POA): -ACHS + carb control diet, SSI -glargine 5 units daily (decreased 08/15 for hypoglycemia) CKD stage IIIA, (POA): -Per OSH records, unknown baseline, 1.62 Cr on admission -Avoid nephrotoxic agents/renally dose medications -trend chem q 3 days Hx of h-pylori Hx of duodenitis/esophagitis, (POA): -H-pylori treatment started per [facility], end 08/11 (doxycyline monohydrate, metronidazole, and bismuthsubsalicylate) -Nexium 40 mg q 12 hours JAMAAL (POA): -listed from OSH records -Pt states she has not had a sleep study and does not wear CPAP -CPAP at night ordered Anxiety (POA) Depression (POA) Insomnia (POA) -Continue home Cymbalta, trazodone, mirtazepine Disposition: Camille Dawkins will be discharged to [facility], pending choice and precertification Robert Mujica APRN-SITE ADMINISTRATOR 08/19/2022 8:16 AM VITAL SIGNS Temp: [97.6 F (36.4 C)-97.8 F (36.6 C)] 97.6 F (36.4 C) Pulse (Heart Rate): [97-105] 97 Resp Rate: [18-22] 18 BP: (108-123)/(74-82) 108/74 O2 Sat (%): [97 %-100 %] 100 % Oxygen Therapy: Oxygen Therapy O2 Sat (%): 100 % O2 Device: room air Ventilator Settings and Monitoring (Adult/Peds) Total Respiratory Rate: 20 Intake/Output: Intake/Output Summary (Last 24 hours) at 08/19/2022 0816 Last data filed at 08/19/2022 0536 Gross per 24 hour Intake 565 ml Output 3350 ml Net -2785 ml LABS/CULTURES Lab Results Component Value Date WBC 9.03 08/19/2022 HGB 10.4 (L) 08/19/2022 HCT 34.4 (L) 08/19/2022 PLATELET 195 08/19/2022 MCV 87.8 08/19/2022 Lab Results Component Value Date SODIUM 138 08/19/2022 POTASSIUM 3.5 08/19/2022 CHLORIDE 103 08/19/2022 CO2 28 08/19/2022 BUN 32 (H) 08/19/2022 CREATSERUM 1.38 (H) 08/19/2022 GLUCOSE 145 (H) 08/19/2022 Lab Results Component Value Date CHOLESTEROL 67 08/10/2022 TRIG 54 08/10/2022 HDL 25 (L) 08/10/2022 LDLCALC 31 08/10/2022 Lab Results Component Value Date HGBA1C 7.5 (H) 08/10/2022 Lab Results Component Value Date ALBUMIN 3.3 (L) 08/10/2022 , No results found for: CPK, TROP IMAGING/DIAGNOSTIC STUDIES XR CHEST PORTABLE Final Result IMPRESSION: Slightly increased size of right pleural effusion. No overt pulmonary edema. CARDIOGRAM Final Result XR FLUORO MODIFIED BARIUM SWALLOW WITH SPEECH Final Result IMPRESSION: 1. Transient laryngeal penetration of thin liquid. No aspiration. 2. Functional impairment in the oral and pharyngeal phases as described above. 3. Trace stasis inconsistently observed in the lower cervical esophagus. Refer to the Speech and Language Pathologist's report for diet and therapy recommendations. Procedure performed by DAIN Banks under the direct supervision of Dr. Maged Chacon. I personally viewed and interpreted these images and I have reviewed and approved this report. CHEST PORTABLE Final Result IMPRESSION: Low lung volumes with bilateral basilar groundglass opacities. Pulmonary edema is a consideration in the appropriate clinical setting. BRAIN WITHOUT CONTRAST Final Result IMPRESSION: Moderate motion artifact. Small acute right MCA territory infarct involving the right insula, basal ganglia, right colmenares radiata, right frontal and parietal lobes. No definite evidence of hemorrhagic transformation or significant mass effect. ABDOMEN 1 VIEW Final Result IMPRESSION: Distal tip of the Dobbhoff tube in the proximal jejunum. HEAD WITHOUT CONTRAST Final Result IMPRESSION: The subtle area of low-attenuation in the right insula is unchanged. There is also additional subtle area of low-attenuation in the right frontal colmenares radiata corresponding to the perfusion abnormality from prior CTP. These are compatible with recent infarcts. No evidence of acute hemorrhage. HEAD WITHOUT CONTRAST Final Result IMPRESSION: The area of low-attenuation in the right insula was present on prior, likely due to small amount of contrast staining. No evidence of acute intracranial hemorrhage. CHEST PORTABLE Final Result IMPRESSION: Mild cardiomegaly. Linear atelectatic changes. CEREBRAL PERFUSION ANALYSIS Final Result IMPRESSION: Large perfusion mismatch in the right MCA territory, with mismatch volume of 86 cc. Small core infarct in the deep white matter, although this does not correspond to the evolving infarct noted on the noncontrast CT. STROKE HEAD-STROKE ALERT ONLY Final Result IMPRESSION: 1. 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 2. No acute intracranial hemorrhage. Findings were discussed with Mariposa Han NP at 7:52 AM on August 09, 2022. I personally viewed and interpreted these images and I have reviewed and approved this report. RO IMAGING FOR NEURO ENDOVASCULAR (Results Pending) MEDICATIONS apixaban 5 mg Oral Q12H atorvastatin 40 mg Oral QHS dapagliflozin 10 mg Oral Daily DULoxetine 30 mg Oral Daily esomeprazole 40 mg Oral Q12H furosemide (LASIX) injection/IVPB 40 mg Intravenous Once insulin glargine injection 5 Units Subcutaneous Q24H Insulin lispro Subcutaneous 4x daily w/meals, HS losartan 12.5 mg Oral Daily magnesium oxide 800 mg Oral Once metoprolol succinate 100 mg Oral Daily mirtazapine 15 mg Oral QHS potassium chloride 20 mEq Oral Once senna 8.6 mg Oral QAM traZODone 100 mg Oral QHS * ALDO Donnelly - 08/18/2022 2:53 PM EST Progression of Care Note Expected Discharge Date: 08/23/2022 Medical Milestones Remaining: None Assessment and Discharge Plan as of 08/18/2022 2:53 PM SNF Patient Choice for Post-Acute Providers Anticipated discharge disposition: Inpatient Rehab Facility Anticipated Services at Discharge: Physical Therapy, Occupational Therapy, Senior Living, Outpatient follow up, Speech Therapy Explanation of Barriers: Pending Precert for IPR Readmission Risk Score Risk of Readmission: 7 Category Reference: High:16-100 Mod-High:10-16 Mod-Low: 5-10 Low: 0-5 ALTAF Donnelly, ALDO Slunk Skinner * Raine Bryan MD - 08/18/2022 1:32 PM EST Stroke Attending Addendum (Date of service 08/18/22): I have interviewed and examined patient. I have reviewed Delaney Lincoln CNP's note and agree with the following highlights, additions, and addendums: The patient is a 62 y.o. right-handed female with a history of hypertension, diabetes mellitus, atrial fibrillation on eliquis, congestive heart failure who on 08/08/22 at 2000 was LKN and then developed symptoms of left hemiparesis. Patient [facility] to [facility] where Telestroke showed an NIHSS of 6. CT brain was negative for acute changes. OSH CT angiogram head/neck showed a right M2 occlusion. The patient did not receive IVtPA. Patient transferred to [facility] ER and initial NIHSS on arrival was 8. CTP shows a right MCA MM. The patient was taken for intra-arterial therapy and had TICI 2b recanalization. The patient was transferredto [facility]. LDL 31, HgbA1c 7.5. MRI brain diffusion weighted images acute right MCA infarct (small). TTE EF <20%. Interval Overnight History: 113/74. Neurological examination shows left hemiparesis and dysarthria, NIHSS 6 (LF-1, LUE-4, dys-1). Assessment/Plan: Acute right MCA ischemic stroke, rightM2 MCA occlusion s/p intra-arterial therapy with TICI 2b recanalization Post-stroke day # 9. Strokemechanism is cardioembolism subtype (due to atrial fibrillation). Stroke work-up completed. Resumedhome eliquis. Continue vascular risk factor modification. On lipitor 40. On lopressor, lasix, losartan. DVT prophylaxis with SCDs and eliquis. PT/OT consults-ARF, precert. Enrolled in [employer]. Resumed home losartan. Home spironolactone held. Raine Byran MD * ALDO Sosa - 08/18/2022 12:18 PM ESTSummary: IPR [facility] has accepted and has started the pre-cert process for this patient. SOMMER Sosa, [facility] Strategic Planner * Jenn Suazo, PT - 08/18/2022 10:58 AM EST Acute Physical Therapy Treatment PRIOR LEVEL AM-PAC Mobility Raw Score: 24 CURRENT AM-PAC Mobility Raw Score: 12 Based on the above AM-PAC score(s) and PT clinical judgment, patient is a good candidate for discharge to Inpatient Rehab Facility Barriers to discharge home: Patient needs assistance with functional mobility Supporting Factors (would benefit from skilled therapy services): Patient status is anticipated to be appropriate to tolerate inpatient rehab therapy requirements at time of discharge from acute care, Impaired functional status, Decreased strength, Impaired balance, Impaired self-care abilities, Decreased endurance necessitating skilled therapy services, but able to tolerate therapy requirements for inpatient rehab, Impaired cognitive status, Fall risk Mobility equipment available at home: rollator, stair glide ADL equipment available at home: shower chair, grab bars Equipment needed for discharge: to be determined Current therapy frequency recommendation in acute: Therapy Frequency: 5 times a week Precautions and Weightbearing Status: Existing Precautions/Restrictions: fall Patient Safety Communication Prior to Visit: Nursing Lines/Tubes/Drains (Rehab Status): Telemetry Respiratory Status O2 Device: room air SUBJECTIVE: Pt is very sleepy working with OT at EOB. Pt states she hasn't been able to sleep through the nightbecause of people always coming in and out. Pt still agreeable to work with PT and work on increasing ambulation distance today. Pain: no pain noted during session. OBJECTIVE: Vitals/Response to Treatment: HR 100-128bpm; Monitor notes Afib Balance: Sitting Balance Static Sitting-Level of Assistance: Standby Dynamic Sitting-Level of Assistance: Contact guard Standing Balance Static Standing-Level of Assistance: Minimum assistance Dynamic Standing-Level of Assistance: Moderate assistance Standing-Balance Support: Gait belt Skilled Rationale: Verbal cues, Tactile cues, Full extension to upright positioning/posture, Finding/maintaining midline positioning (Cues to attend to L side of body) Transfers: Sit to Stand Transfer Jay Level: Sit->Stand: moderate assist (50% patient effort) Assistive Device: Sit->Stand: gait belt Skilled Rationale: Verbal cues, Tactile cues, Ischial assist, Facilitate anterior shift, Full extension to upright positioning/posture, Finding/maintaining midline positioning (Increase weight on L for improve equality) Skilled Intervention/Details: Sit->Stand: x2 Stand to Sit Transfer Jay Level: Stand->Sit: moderate assist (50% patient effort) Assistive Device: Stand->Sit: gait belt Skilled Rationale: Verbal cues, Tactile cues, Facilitate anterior shift, Ischial assist, Controlleddescent for sitting (Cues for attention to LUE when descending) Skilled Intervention/Details: Stand->Sit: x2 Bed-Chair Transfer Jay Level: Bed<->Chair: moderate assist (50% patient effort) Assistive Device: Bed<->Chair: gait belt Skilled Rationale: Verbal cues, Tactile cues (Cues at COM for weight shift and for inc foot clearance, step length & positioning when turning. Cues to fully turn before sitting.) Skilled Intervention/Details: Bed<->Chair: x1 Gait/Functional Mobility: Gait Assessment Jay Level: Gait: moderate assist (50% patient effort) Physical Assist: Gait: (2nd person for LUE support/proprioceptive input) Assistive Device: Gait: gait belt Ambulation Distance (Feet): (1x25', 1x15') Gait Deviations Identified: decreased fátima, decreased gait speed, decreased step length, decreased weight shifting Gait Skilled Rationale: verbal, tactile, upright posture, increase step length, improve foot placement, increase foot clearance Skilled Intervention/Details - Gait: 1st 10' of 1st trial with R railing & remaining 15' without RUE support. 2nd trial /s RUE support. Challenged pt to initiate gait with L foot and to attempt larger steps with L foot. As pt fatigues, inc faciliation at COM to keep weight to the L when stepping with RLE. ASSESSMENT & PLAN: Pt with improved assist levels and gait distance. Remains impaired with L attention and plegia on Lside affecting functional mobility.. Would continue to benefit from skilled PT to progress towards PLOF. Plan for next session: L attention, standing balance, gait PT treatment consisted of Therapeutic Activity, Gait/Stair Training and Neuro Muscle Re-Education to work and progress towards goal(s). Treating Therapist: Jenn Suazo PT,DPT,NCS Additional Details: Co-evaluation/co-treatment performed?: Yes, combination of simultaneous billable and individual billable skilled care d/t complexity I used gloves and facemask in today's patient interaction. Patient location at end of session: chair, chair alarm and RN aware Needs in reach. Time In: 1038 Time Out: 1058 Total Visit Time: 20 minutes Total Treatment Time (skilled, billable minutes): 20 minutes Upon discontinuation of Acute Care Physical Therapy Services or patient discharge from the hospitalthis note represents the current Physical Therapy Discharge Summary. Acute PT Goals Plan of Care by Jenn Suazo PT at 08/18/2022 10:58 AM Version 1 of 1 Problem: PT - Mobility Goal: Ambulation Description: Pt will ambulate 150 feet with out an assistive device with minimal assistance to improve ability to navigate home environment. Outcome: Progressing Toward Goal Problem: PT - Balance/Coordination/Neuro Re-Education Goal: Standing Dynamic/Static Balance Description: Pt will perform standing balance tasks with contact guard assistance with least restrictive device in order to improve functional mobility and safety with standing tasks. Outcome: Progressing Toward Goal Problem: PT - Transfers Goal: Stand-Pivot Description: Pt will perform stand/pivot transfer to/from bed/chair/commode with minimal assistancewith least restrictive device in order to improve functional mobility and safety. Outcome: Progressing Toward Goal Goal: Sit <-> Stand Description: Pt will perform sit to/from stand transfers with minimal assistance with least restrictive device in order to improve functional mobility and safety. Outcome: Progressing Toward Goal * Yasemin Cardenas, OT - 08/18/2022 10:52 AM EST Acute Occupational Therapy Treatment Prior to Admission AM-PAC Score: PRIOR LEVEL AM-PAC Activity Raw Score: 24 PRIOR LEVEL AM-PAC Mobility Raw Score: 24 Current AM-PAC score(s): CURRENT AM-PAC Activity Raw Score: 14 Based on the above AM-PAC score(s), and OT clinical judgment, discharge destination recommendation is: Inpatient Rehab Facility Supporting Factors (would benefit from skilled therapy services): Patient status is anticipated to be appropriate to tolerate inpatient rehab therapy requirements at time of discharge from acute care, Impaired functional status, Decreased strength, Impaired balance, Decreased endurance, Impaired self-care abilities, Impaired cognitive status, Assistance needed with functional mobility, Fall risk,Recent decline in functional mobility, Recent decline in self-care abilities, Recent decline in cognitive function, Patient has appropriate assistance and setup at home for ultimate discharge to homeonce patient has progressed functionally following inpatient rehab Mobility equipment available at home: rollator, stair glide ADL equipment available at home: shower chair, grab bars Equipment recommendations for discharge: wheelchair, bedside commode Current therapy frequency recommendation(s) in acute: 5 times a week Precautions and Weightbearing Status: OT Existing Precautions/Restrictions: fall, cardiac (Exit alarm; Smart socks.) Telemetry Patient Safety Communication Prior to Visit: Nursing Subjective: Pt reported, It's a horse and pony show here... I get no sleep or rest. Pain: General Pain Documentation (Adult, OB, Peds) Presence of Pain: denies pain/discomfort Objective/Observation: Vitals/Vitals Responses to Treatment: With activity, pt presents with mild SOB, but vitals remaining WFL. Respiratory Status O2 Device: room air Vision Screen Currently wearing corrective lenses: No Clinical Observations: This date, pt appears to present with likely moderate left inattention and possible left peripheral field cut. Pt requires frequent cues to attend to left UE. Visual Impairments Observed?: Yes Speech Speech: no gross deficits noted Hearing Hearing: no gross deficits noted Cognition Overall Cognitive Status: Impaired Arousal/Alertness: Delayed responses to stimuli Orientation Level: Oriented to person, Oriented to place, Oriented to time Following Commands: Follows one step commands with increased time, Follows one step commands with repetition Safety Judgment: Decreased awareness of need for assistance, Decreased awareness of need for safety Awareness of Errors: Assistance required to identify errors made, Assistance required to correct errors made Deficits: Decreased awareness of deficits Attention Span: Attends with cues to redirect, Difficulty dividing attention, Difficulty attending to directions Memory: Decreased short term memory Problem Solving: Assistance required to identify errors made, Assistance required to generate solutions, Assistance required to implement solutions Cognition Comments: Delayed processing rate/motor planning; Confusion; Flat affect; Initial lethargy, but moderately improving with standing activity; Overall, decreased insight into deficits/safety awareness. ADL Assessment/Intervention: Toilet Assistance: Moderate Toileting Location: bedside commode Toileting Deficit: Perineal hygiene, Problem solving, Follows safety/precautions, Balance, Generalized weakness, Activity tolerance, Increased time to complete Toilet Skilled Rationale (Verbal/Tactile/Visual/Demonstration): Setup, Cues for increased safety, Technique of activity, Cues for cognitive deficit, Facilitate postural control, Facilitate positioning Toileting Intervention/Details: Pt mostly requiring assistance for safe toilet transfer, performinganterior hygiene/sheila-care seated via lateral weight shifting with CGA and moderately increased time/effort. Extremity Assessments: See OT Evaluation flowsheet for Extremity Measurement updates. Balance: Sitting Balance Static Sitting-Level of Assistance: Standby Dynamic Sitting-Level of Assistance: Contact guard Sitting Balance Skilled Intervention/Details: Seated EOB for about 14-15 minutes, mostly requiring cuse for safety and with intermittent left lateral lean when engaging in dynamic activities. Standing Balance Static Standing-Level of Assistance: Minimum assistance, Moderate assistance Dynamic Standing-Level of Assistance: Moderate assistance Standing Balance Skilled Intervention/Details: Standing for about 3-4 minutes at a time (x several trials) while completing functional transfers/mobility and toileting, mostly requiring cues for safety and with hip extension, retropulsive weight shift, and kyphotic posture with flexed cervical position. Mobility Assessment/Intervention: Supine to Sit Mobility Jay Level: Supine->Sit: moderate assist (50% patient effort) Bed Features/Set-up: Supine->Sit: Head of bed elevated, Use of bed rail Skilled Rationale: Cues for increased safety, Initiation and execution of task, Technique of activity, Full extension to upright positioning/posture, Facilitate anterior shift, Tactile cues, Verbal cues, Hand placement, Sequencing, Positioning Skilled Intervention/Details: Supine->Sit: Cues for initiation/sequencing/safety, as well as assisting with upper trunk support, left LE, and aligning hips to midline; Moderately increased time/effort for performance. Transfer Assessment/Intervention: Sit to Stand Transfer Jay Level: Sit->Stand: moderate assist (50% patient effort) (x 1 trial from EOB; x 1 trial from bedside commode; x 2 trials from bedside chair.) Assistive Device: Sit->Stand: gait belt (Non-skid socks.) Skilled Rationale: Cues for increased safety, Initiation and execution of task, Technique of activity, Upright gaze/neck extension, Full extension to upright positioning/posture, Facilitate anterior shift, Ischial assist, Arm in arm, Tactile cues, Verbal cues, Hand placement, Sequencing, Positioning Skilled Intervention/Details: Sit->Stand: Cues for initiation/sequencing/safety, as well as assisting with hip extension, retropulsive weight shift, and kyphotic posture with flexed cervical position. Stand to Sit Transfer Jay Level: Stand->Sit: minimum assist (75% patient effort) Assistive Device: Stand->Sit: gait belt (Non-skid socks.) Skilled Rationale: Cues for increased safety, Initiation and execution of task, Technique of activity, Controlled descent for sitting, Ischial assist, Arm in arm, Tactile cues, Verbal cues, Hand placement, Sequencing, Positioning Bed-Chair Transfer Jay Level: Bed<->Chair: moderate assist (50% patient effort) (EOB>Bedside commode; Bedside commode>Bedside chair.) Assistive Device: Bed<->Chair: gait belt (Non-skid socks.) Skilled Rationale: Cues for increased safety, Initiation and execution of task, Technique of activity, Upright gaze/neck extension, Controlled descent for sitting, Full extension to upright positioning/posture, Facilitate anterior shift, Ischial assist, Arm in arm, Tactile cues, Verbal cues, Hand placement, Sequencing, Positioning Skilled Intervention/Details: Bed<->Chair: Cues for initiation/sequencing/safety, as well as assisting with maintenance of upright posture and weight shifting to side-step (increased cues to fully clear left LE from floor). Functional Mobility: Functional Mobility Jay Level: Functional Mobility/Gait: moderate assist (50% patient effort) Physical Assist: Functional Mobility/Gait: chair follow Assistive Device: Functional Mobility/Gait: gait belt (Non-skid socks.) Functional Mobility Distance: (Less than household distances (x 2 trials).) Skilled Intervention/Details - Functional Mobility/Gait: Moderate unsteadiness, but no LOB experienced; Mild SOB; 1st trial, pt utilizing right UE on rail in hallway for support, 2nd trial no right UE support utilized; Both trials, therapist stabilized left UE and encouraged weight bearing through limb; Pt mobilizing at a decreased rate and with increased cues to clear left LE from floor. Outcome Score(s): CURRENT AM-PAC Daily Activity Inpatient Short Form Putting on/Taking Off Lower Body Clothin - A Lot of Assistance Bathin - A Lot of Assistance Toiletin - A Lot of Assistance Putting on/Taking Off Upper Body Clothin - A Lot of Assistance Groomin - A Little Assistance Eatin - A Little Assistance CURRENT AM-PAC Activity Raw Score: 14 CURRENT AM-PAC Activity Functional Limitation/Modifier: 59.67% Currently Impaired in Daily Activity- CK PROJECTED AM-PAC Activity Raw Score: 19 PROJECTED AM-PAC Activity Functional Limitation/Modifier: 42.80% - CK Interventions: Intervention 1 Intervention Name: Seated EOB, pt completed 10 reps of lateral weight shifting onto left UE, encouraging elbow flexion/extension. Pt required CGA-minimal assistance x 1 for performance, demonstratingno active range/muscle contraction in left UE throughout (therapist approximated shoulder for safety/joint integrity). Each rep, therapist encouraged pt to visually scan into left visual field and touch left UE with right UE. Pt demonstrating moderate difficulty with visual scanning, requiring increased time/effort for performance. Intervention 2 Intervention Name: Pt participated in various UE therapeutic exercises while seated EOB. Specifically, pt completed 10 reps (left UE- self-ranging with right UE; each movement) of the following UE movements: shoulder elevation, shoulder retraction/scapular internal rotation and adduction, shoulder flexion, and elbow extension/flexion. Overall, pt demonstrated no active range/muscle contraction inthe left UE, but adequate right UE range/strength, requiring mild-moderate cues/assistance for efficient/safe performance of exercises. Constant cues required to maintain visual attention to left UE throughout. Assessment & Plan: Pt is demonstrating fair progress in occupational therapy goals this date, primarily in seated balance, right UE ROM/strength, speech, and alertness. However, pt's barriers to discharge and overall inhibitors in ADL/IADL/functional transfer performance/independence include pt's deficits in endurance/activity tolerance, bed mobility, functional transfers/mobility, standing balance, left UE ROM/strength, UE coordination/precision, vision, and cognition. Pt would benefit from continued acute occupational therapy services prior to discharge to address noted deficits and progress towards achieving increased independence in occupational performance. Patient Instruction/Education this session: Pt educated on the importance of EOB/OOB activities in improving independence in self-care/functional activity participation and on the role of OT/OT plan of care. Plan for next session: Therapist to address further dynamic standing balance/functional mobility, left UE neuro re-education, and ADL engagement with compensatory strategies. Acute OT Goals Plan of Care by Yasemin Cardenas OT at 08/18/2022 10:53 AM Version 1 of 1 Problem: OT - Visual Scanning Goal: Visual Tracking Description: Pt will track past midline to left 6 completions during session with 20 % cues, to attend to familiar object/person for ADL participation. Outcome: Ongoing Problem: OT - Cognition Goal: Cognition simple ADL Description: Pt will demonstrate improved cognition, completing simple ADL task for 10 minutes with2 cues required to maintain attention, for improved safety and success at discharge destination. Outcome: Ongoing Problem: OT - Strength/ROM Goal: Neuro Re-education Description: Pt will participate in neuro re-ed of (LUE) to improve strength by 2 muscle grades in each group, for improved use in ADLs. Outcome: Ongoing Problem: OT - Balance Goal: Balance - Standing Description: Pt will perform 6-8 minutes of functional ADL task in standing with contact guard assistance and balance level of contact guard to promote safety and improved balance required for self-care activities. Outcome: Ongoing Problem: OT - Transfers Goal: Transfers Sit -> Stand Description: Pt will demonstrate good safety awareness during sit to/from stand functional transferwith CGA and least restrictive device for improved safety and success at recommended discharge destination. Outcome: Ongoing OT treatment consisted of ADL retraining, balance training, bed mobility training, energy conservation/endurance training, neuromuscular re-education, range of motion, strengthening, transfer training and vision training to work and progress towards above goal(s). Treating Therapist: Yasemin Cardenas OT Additional Details: Co-evaluation/co-treatment performed?: Yes, combination of simultaneous billable and individual billable skilled care This co-treatment session performed between OT and PT was beneficial, necessary and provided distinct services in progressing this person's individual plan of care. Medical complexity with functionaldeficits that necessitate two skilled therapy disciplines working concurrently to optimize patient's progress towards each discipline's goals. This co-treatment was medically necessary due to patient's: Cognitive issues, Coordination issues, Postural control and Endurance/Activity Tolerance. Patient benefits from simultaneous treatment from another therapy discipline to maximize progress towards above Occupational Therapy goals. I used facemask, protective eye shield, and gloves in today's patient interaction. Patient location at end of session: chair Alarms on at end of session: chair alarm and RN aware Needs in reach. Time In: 1024 Time Out: 1052 Total Visit Time: 28 minutes Total Treatment Time (skilled, billable minutes): 28 minutes Upon discontinuation of Acute Care Occupational Therapy Services or patient discharge from the hospital this note represents the current Occupational Therapy Discharge Summary. * Delaney Lincoln APRN-IVETTE - 08/18/2022 9:56 AM EST NEUROVASCULAR STROKE SERVICE Daily Progress Note IDENTIFYING INFORMATION Camille Dawkins MR# [id number] 08/18/2022 HISTORY OF PRESENT ILLNESS Camille Dawkins is a 62 y.o. female with PMH significant for HTN, DM, Afib on Eliquis- last dose 08/08 whopresented to an OSH on 08/09 with left sided weakness. LKW 08/08 @ 1999. She was evaluated via telestroke. NIHSS 6. Not a candidate for iv thrombolysis due to Eliquis use. CTA showed R M2 occlusion. She was tras[facility]ferred to [facility] for further care. Upon arrival to [facility], NIHSS was 8. CTP shows 2ml core and 86 ml penumbra she was taken to OR and a TICI 2b revascularization was achieved. INTERVAL HISTORY 08/10: Brain MRI pending. Left arm weakness worse. updated at bedside. 08/11: MRI done, home lopressor resumed, diet advanced 08/14: Lasix held due to soft BP with SBP as low as 90, 250 ml bolus given with improvement. Neuro exam stable. AC initiated for afib 08/15: No events overnight. SBP 100s. Improved oral intake. 08/16: Home mirtazepine/trazadone added for anxiety/insomnia, speech re-eval today 08/17: TTE pending. No events overnight. Home lasix resumed. Metoprolol changed to XL, diet advance to thin liquids. Per speech recommendations 08/18: chest xray reviewed, BNP pending, TTE reviewed. Cardiology recs pending, CICI overnight. IV lasix 40 mg x1 PHYSICAL EXAM Gen: awake, alert, NAD HEENT: normocephalic, no scalp lesions or tenderness Neck: trachea midline CV: +S1S2, irregular-afib on quality assurance monitor final, no m/r/g Lungs: clear, but diminished, bilaterally with equal chest rise. On RA. Abd: soft, nontender, nondistended, +BS x4 quadrants Extrem: Warm and well perfused, no edema Neuro: Oriented x3, RAM x 3, sensation decreased on left. Mild dysarthria CN II - All visual rankin intact CN II/III - PERRLA CN III/IV/ - EOMI CN V - Light touch to face intact in V1-3 CN VII - Left facial droop CN VIII - Hearing intact CN X - Cough present CN XI - Left shoulder weakness CN XII - midline protrusion of tongue MOTOR EXAMINATION: LUE with minimal anti-gravity movement NIHSS 08/18/2022 Provider NIH Stroke Scale NIH Interval (Provider): daily NIH Level of Conciousness (Provider): 0 NIH LOC Questions (Provider): 0 NIH LOC Commands (Provider): 0 NIH Best Gaze (Provider): 0 NIH Visual (Provider): 0 NIH Facial Palsy (Provider): 2 NIH Left Arm Motor (Provider): 3 NIH Right Arm Motor (Provider): 0 NIH Left Leg Motor (Provider): 0 NIH Right Leg Motor (Provider): 0 NIH Limb Ataxia (Provider): 0 NIH Sensory (Provider): 0 NIH Best Language (Provider): 0 NIH Dysarthria (Provider): 1 NIH Extinction and Inattention (Provider): 0 NIH Total Score (Provider): 6 ASSESSMENT AND PLAN Neuro: Acute right MCA stroke, R M2 occlusion, s/p TICI 2b CTH: Acute ischemic infarct in the right insula. CTA brain/neck: Right M2 occlusion CTP: Large perfusion mismatch of 86 ml in right MCA territory MRI brain: R MCA stroke, no hemorrhage TTE: EF <20%, grade II diastolic dysfunction LDL 31, A1c 7.5 -Stroke Etiology (TOAST Criteria): Cardio embolic from A fib -Antiplatelet not indicated in addition to AC -AC plan: eliquis 5 mg BID -Statin therapy: Lipitor 40 mg -Blood Pressure goal: SBP <140 Ischemic Stroke Core Measures -NIHSS on admission 8 -Patient has been started on Mechanical (SCD's) and Pharmacological (SQ heparin/Lovenox) DVT prophylaxis. -Antiplatelet therapy has been initiated, Aspirin 81 mg daily. -Anticoagulation therapy was indicated for this patient, d/t A fib -Patients LDL 31 and HgbA1c 7.5 were checked and the patient may discharged on Atorvastatin daily. -Dysphagia screening ordered, and will be completed prior to patient receiving oral intake. -Stroke education booklet has been ordered and will be provided by the RN that includes both written and verbal education to the patient and family regarding ischemic strokes. We have reviewed the patient's personal modifiable risk factors including: HTN, A fib, DM as well as education on reducing these risk factors -Patient is being assessed for Rehab by PT/OT/Speech and PM&R if indicated. Afib (POA) HTN (POA) CHF (POA) -home regimen: losartan 25 mg daily (resumed 08/18 at 12.5 mg daily), metoprolol succinate 100mg XL daily, spironolactone 25 mg daily (held), lasix 20 mg daily (resumed 08/17), farxiga 10 mg daily (resumed 08/18) -Could not find OSH TTE to evaluate type of chronic heart failure, pt's spouse reports EF 30% -TTE with EF < 20 %, grade II diastolic dysfunction -Daily weights, strict I & O's, low salt diet with 2 liter fluid restriction -08/17: metoprolol changed to home dose of 100 mg XL -08/18: resumed Farxiga 10 mg daily, resumed losartan 12.5 mg daily. IV lasix 40 mg x1 -Chest xray with increasing R pleural effusion -BNP 1,109 from 1,524 on admission -Consult cardiology for heart failure, pending recs -AC plan: Resumed home eliquis post stroke day 5 (08/14/22) Dysphagia: -soft and bite size, thin liquids, meds whole or crushed in puree -Speech following DM type II, (POA): -ACHS + carb control diet, SSI -glargine 5 units daily (decreased 08/15 for hypoglycemia) CKD stage IIIA, (POA): -Per OSH records -unknown baseline, 1.62 Cr on admission -Avoid nephrotoxic agents/renally dose medications -trend chem q 3 days Hx of h-pylori Hx of duodenitis/esophagitis, (POA): -H-pylori treatment started per [facility], end 08/11 (doxycyline monohydrate, metronidazole, and bismuthsubsalicylate) -Nexium 40 mg q 12 hours JAMAAL (POA): -listed from OSH records -Pt states she has not had a sleep study and does not wear CPAP -CPAP at night ordered Anxiety (POA) Depression (POA) Insomnia (POA) -Continue home Cymbalta, trazodone, mirtazepine Disposition: Camille Dawkins will be discharged to [facility], pending choice and precertification Delaney Lincoln APRN-SITE ADMINISTRATOR 08/18/2022 11:37 AM VITAL SIGNS Temp: [97.5 F (36.4 C)-97.9 F (36.6 C)] 97.9 F (36.6 C) Pulse (Heart Rate): [86-110] 110 Resp Rate: [17-26] 20 BP: (99-125)/(74-88) 113/74 O2 Sat (%): [91 %-100 %] 92 % Weight: [92.1 kg (203 lb 0.7 oz)] 92.1 kg (203 lb 0.7 oz) Oxygen Therapy: Oxygen Therapy O2 Sat (%): 92 % O2 Device: room air Oxygen Delivery/Consumption Hemodynamics BSA (Calculated - sq m): 1.97 m2 Intake/Output: Intake/Output Summary (Last 24 hours) at 08/18/2022 1137 Last data filed at 08/18/2022 0601 Gross per 24 hour Intake 0 ml Output -- Net 0 ml LABS/CULTURES Lab Results Component Value Date WBC 9.74 08/16/2022 HGB 10.9 (L) 08/16/2022 HCT 35.4 08/16/2022 PLATELET 180 08/18/2022 MCV 86.3 08/16/2022 Lab Results Component Value Date SODIUM 133 (L) 08/16/2022 POTASSIUM 5.0 08/16/2022 CHLORIDE 100 08/16/2022 CO2 24 08/16/2022 BUN 41 (H) 08/16/2022 CREATSERUM 1.49 (H) 08/16/2022 GLUCOSE 151 (H) 08/18/2022 Lab Results Component Value Date CHOLESTEROL 67 08/10/2022 TRIG 54 08/10/2022 HDL 25 (L) 08/10/2022 LDLCALC 31 08/10/2022 Lab Results Component Value Date HGBA1C 7.5 (H) 08/10/2022 Lab Results Component Value Date ALBUMIN 3.3 (L) 08/10/2022 , No results found for: CPK, TROP IMAGING/DIAGNOSTIC STUDIES XR CHEST PORTABLE Final Result IMPRESSION: Slightly increased size of right pleural effusion. No overt pulmonary edema. CARDIOGRAM Final Result XR FLUORO MODIFIED BARIUM SWALLOW WITH SPEECH Final Result IMPRESSION: 1. Transient laryngeal penetration of thin liquid. No aspiration. 2. Functional impairment in the oral and pharyngeal phases as described above. 3. Trace stasis inconsistently observed in the lower cervical esophagus. Refer to the Speech and Language Pathologist's report for diet and therapy recommendations. Procedure performed by DAIN Banks under the direct supervision of Dr. Maged Chacon. I personally viewed and interpreted these images and I have reviewed and approved this report. CHEST PORTABLE Final Result IMPRESSION: Low lung volumes with bilateral basilar groundglass opacities. Pulmonary edema is a consideration in the appropriate clinical setting. BRAIN WITHOUT CONTRAST Final Result IMPRESSION: Moderate motion artifact. Small acute right MCA territory infarct involving the right insula, basal ganglia, right colmenares radiata, right frontal and parietal lobes. No definite evidence of hemorrhagic transformation or significant mass effect. ABDOMEN 1 VIEW Final Result IMPRESSION: Distal tip of the Dobbhoff tube in the proximal jejunum. HEAD WITHOUT CONTRAST Final Result IMPRESSION: The subtle area of low-attenuation in the right insula is unchanged. There is also additional subtle area of low-attenuation in the right frontal colmenares radiata corresponding to the perfusion abnormality from prior CTP. These are compatible with recent infarcts. No evidence of acute hemorrhage. HEAD WITHOUT CONTRAST Final Result IMPRESSION: The area of low-attenuation in the right insula was present on prior, likely due to small amount of contrast staining. No evidence of acute intracranial hemorrhage. CHEST PORTABLE Final Result IMPRESSION: Mild cardiomegaly. Linear atelectatic changes. CEREBRAL PERFUSION ANALYSIS Final Result IMPRESSION: Large perfusion mismatch in the right MCA territory, with mismatch volume of 86 cc. Small core infarct in the deep white matter, although this does not correspond to the evolving infarct noted on the noncontrast CT. STROKE HEAD-STROKE ALERT ONLY Final Result IMPRESSION: 1. 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 2. No acute intracranial hemorrhage. Findings were discussed with Mariposa Han NP at 7:52 AM on August 09, 2022. I personally viewed and interpreted these images and I have reviewed and approved this report. RO IMAGING FOR NEURO ENDOVASCULAR (Results Pending) MEDICATIONS apixaban 5 mg Oral Q12H atorvastatin 40 mg Oral QHS dapagliflozin 10 mg Oral Daily DULoxetine 30 mg Oral Daily esomeprazole 40 mg Oral Q12H furOSEmide 20 mg Oral Daily insulin glargine injection 5 Units Subcutaneous Q24H Insulin lispro Subcutaneous 4x daily w/meals, HS losartan 12.5 mg Oral Daily metoprolol succinate 100 mg Oral Daily mirtazapine 15 mg Oral QHS senna 8.6 mg Oral QAM traZODone 100 mg Oral QHS * Kamilla Hernandez TRENCHING MACHINE OPERATOR - 08/18/2022 8:45 AM EST Acute Care Speech Language Pathology Treatment Diet Recommendations: Recommended Method of Nutrition: PO Recommended Diet Grade: dysphagia- soft and bite sized (IDDSI 6) Recommended Liquid Consistency: liquid- thin (IDDSI 0) Medications: with food (whole in puree) Swallow Strategies: (bolus placement on R, lingual/finger sweep, liquid wash) Type of Cues/Supervision: intermittent supervision (please assist pt with tray set up) Assistance: family, nurse/aide Best mode of Communication: spoken language (regular speech) Discharge Recommendations: Based on the below outcome measures/assessment score(s), FOIS 5, and SLPclinical judgment, discharge destination recommendation is: Inpatient Rehab Facility Barriers to discharge home: Cognitive impairments that impact safety and independence Supporting factors for discharge setting: Impaired swallow function limiting nutritional status andsafety with oral intake, Impaired cognitive skills limiting independence Acute TRENCHING MACHINE OPERATOR Outcomes Tracking Communicate basic wants and needs?: yes Demo insight/appreciation of deficits?: yes Appreciate deficits - Details: improving Complete basic problem solving?: yes Basic problem solving - Details: for very basic Current therapy frequency recommendation in acute: Speech/Lang/Cog Therapy Frequency: 3 times a week Swallow Therapy Frequency: 3 times a week Clinical Impression: Camille Dawkins presents with ongoing mild oropharyngeal dysphagia s/p acute R MCA, consistent with MBS that was completed yesterday, 08/17. Subjective: Patient is awake, alert, feeding self breakfast. Reports that it's hard for her to eat meals without people interrupting her and that she still has to focus on what she is doing when eating to avoid choking. 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 Outcome: Ongoing Tx: Goal addressed, ongoing. Pt reports independent use of compensatory swallow strategies of R bolus placement, lingual/finger sweep, and liquid wash. She also reports that if she does not focus on what she is doing and pay attention during meals that she could 'choke'. She is still heavily reliant upon compensatory strategies for eating. Provided direct trials (pt self fed) of regular solids x1 megan evans. The patient with prolonged mastication with mild oral residue in the L buccal cavity which patient clears with liquid wash. She presents with no overt signs/symptoms concerning for potential laryngeal penetration or aspiration. Pt reports OK with staying on soft food at this time given level of concentration needed to eat/drink still. Will continue to follow. Patient Instruction/Education this session: Education provided re: continued independent use of strategies, eating slow, educated about difference between SNF vs IPR Plan for next session: Continue regular solid trials, consider addition of IOPI goal of pt remains hospitalized TRENCHING MACHINE OPERATOR Outcomes: FOIS 5 I was assisted by Ana M Kramer and her hospital clinic students for today's session. and I used gloves and facemask in today's patient interaction. Speech Language Pathologist: BEN Morgan Time In: 844 Time Out: 904 Total Visit Time: 20 minutes Total Treatment Time (skilled, billable minutes): 20 minutes Patient location at end of session: bed with head of bed elevated Alarms on at end of session: RN aware and no alarms were changed/manipulated during this patient encounter. Needs in reach. Upon discontinuation of Acute Care Speech Therapy Services or patient discharge from the hospital this note represents the current Speech Therapy Discharge Summary * Jenn Suazo, PT - 08/17/2022 2:43 PM EST Acute Physical Therapy Treatment PRIOR LEVEL AM-PAC Mobility Raw Score: 24 CURRENT AM-PAC Mobility Raw Score: 11 Based on the above AM-PAC score(s) and PT clinical judgment, patient is a good candidate for discharge to Inpatient Rehab Facility Barriers to discharge home: Patient needs assistance with functional mobility Supporting Factors (would benefit from skilled therapy services): Patient status is anticipated to be appropriate to tolerate inpatient rehab therapy requirements at time of discharge from acute care, Impaired functional status, Decreased strength, Impaired balance, Impaired self-care abilities, Decreased endurance necessitating skilled therapy services, but able to tolerate therapy requirements for inpatient rehab, Impaired cognitive status, Fall risk Mobility equipment available at home: rollator, stair glide ADL equipment available at home: shower chair, grab bars Equipment needed for discharge: to be determined Current therapy frequency recommendation in acute: Therapy Frequency: 5 times a week Precautions and Weightbearing Status: Existing Precautions/Restrictions: fall Patient Safety Communication Prior to Visit: Nursing Lines/Tubes/Drains (Rehab Status): Telemetry Respiratory Status O2 Device: room air SUBJECTIVE: Pt in bed finishing echo. Pt with eyes closed, endorses she is tired because she didn't get sleep last night. Pt willing to work with PT and attempt walking today. Pain: General Pain Documentation (Adult, OB, Peds) Presence of Pain: denies pain/discomfort OBJECTIVE: Vitals/Response to Treatment: HR 100-108bpm, monitor reading A-fib Bed Mobility: Supine to Sit Mobility Jay Level: Supine->Sit: moderate assist (50% patient effort) Bed Features/Set-up: Supine->Sit: Head of bed elevated, Use of bed rail Skilled Rationale: Verbal cues, Tactile cues, Positioning, Sequencing, Initiation and execution of task Skilled Intervention/Details: Supine->Sit: Cues for pt to reach cross body with RUE for railing,cues for pt to advance BLEs to EOB with inc attention to LLE in order to fully achieve. Tactile facilitation at trunk to push fully upright at EOB. Balance: Sitting Balance Static Sitting-Level of Assistance: Standby Dynamic Sitting-Level of Assistance: Contact guard Standing Balance Static Standing-Level of Assistance: Minimum assistance, Moderate assistance Dynamic Standing-Level of Assistance: Moderate assistance Standing-Balance Support: Gait belt Skilled Rationale: Verbal cues, Tactile cues, Positioning, Full extension to upright positioning/posture, Finding/maintaining midline positioning, Upright gaze/neck extension (Attention to L side, especially L arm) Standing Balance Skilled Intervention/Details: With fixed railing in the mills, Emerita to stand, without UE support, modA to stand. x5 total stands performed Transfers: Sit to Stand Transfer Jay Level: Sit->Stand: moderate assist (50% patient effort) Assistive Device: Sit->Stand: gait belt Skilled Rationale: Verbal cues, Tactile cues, Positioning, Sequencing, Hand placement, Facilitate anterior shift, Full extension to upright positioning/posture, Finding/maintaining midline positioning (attention to L) Skilled Intervention/Details: Sit->Stand: x1 EOB, x1 BSC, x3 recliner Stand to Sit Transfer Jay Level: Stand->Sit: moderate assist (50% patient effort) Assistive Device: Stand->Sit: gait belt Skilled Rationale: Verbal cues, Tactile cues, Sequencing, Hand placement, Facilitate anterior shift, Controlled descent for sitting Skilled Intervention/Details: Stand->Sit: as above for trials Bed-Chair Transfer Jay Level: Bed<->Chair: moderate assist (50% patient effort) Assistive Device: Bed<->Chair: gait belt Skilled Rationale: Verbal cues, Tactile cues, Sequencing, Initiation and execution of task (attention to L side) Gait/Functional Mobility: Gait Assessment Jay Level: Gait: moderate assist (50% patient effort) Assistive Device: Gait: gait belt Ambulation Distance (Feet): (2x10', 1x5') Gait Deviations Identified: decreased fátima, decreased gait speed Gait Skilled Rationale: verbal, tactile, upright posture, increase step length, improve foot placement, increase foot clearance Skilled Intervention/Details - Gait: 1st 2 trials with use of railing RUE, OT facilitating weight bearing through LUE. 3rd trial no RUE support with inc effort and dec L step length noted. Cues throughout to inc L step length with improved performance with improved attention. ASSESSMENT & PLAN: Pt progress in assist levels and advancing to gait activities today. Remains far below functional baseline. Would continue to benefit from skilled PT to progress towards PLOF. Plan for next session: L attention, standing balance, gait PT treatment consisted of Therapeutic Activity, Gait/Stair Training and Neuro Muscle Re-Education to work and progress towards goal(s). Treating Therapist: Jenn Suazo, PT,DPT,NCS Additional Details: Co-evaluation/co-treatment performed?: Yes, simultaneous billable skilled care d/t complexity I used gloves and facemask in today's patient interaction. Patient location at end of session: chair, chair alarm Needs in reach. Time In: 1419 Time Out: 1443 Total Visit Time: 24 minutes Total Treatment Time (skilled, billable minutes): 24 minutes Upon discontinuation of Acute Care Physical Therapy Services or patient discharge from the hospitalthis note represents the current Physical Therapy Discharge Summary. Acute PT Goals Plan of Care by Jenn Suazo PT at 08/17/2022 2:43 PM Version 1 of 1 Problem: PT - Balance/Coordination/Neuro Re-Education Goal: Sitting Dynamic/Static Balance Description: Pt will perform seated balance tasks for 8 minutes with standby assistance with trunk in midline position, UE support level to improve safety with seated tasks. Outcome: Completed Problem: PT - Transfers Goal: Supine <-> Sit Description: Pt will perform bed mobility with flat bed & no rail with moderate assistance in order to improve functional mobility and safety. Outcome: Completed Goal: Sit <-> Stand Description: Pt will perform sit to/from stand transfers with maximal assistance in order to improve functional mobility and safety. Outcome: Completed Goal: Stand-Pivot Description: Pt will perform stand/pivot transfer to/from bed/chair/commode with maximal assistancein order to improve functional mobility and safety. Outcome: Completed Problem: PT - Mobility Goal: Ambulation Description: Pt will ambulate 150 feet with out an assistive device with minimal assistance to improve ability to navigate home environment. Outcome: Progressing Toward Goal * Cesar Alcantar - 08/17/2022 2:42 PM EST Acute Occupational Therapy Treatment Prior to Admission AM-PAC Score: PRIOR LEVEL AM-PAC Activity Raw Score: 24 PRIOR LEVEL AM-PAC Mobility Raw Score: 24 Current AM-PAC score(s): CURRENT AM-PAC Activity Raw Score: 14 Based on the above AM-PAC score(s), and OT clinical judgment, discharge destination recommendation is: Inpatient Rehab Facility Supporting Factors (would benefit from skilled therapy services): Patient status is anticipated to be appropriate to tolerate inpatient rehab therapy requirements at time of discharge from acute care, Impaired functional status, Decreased strength, Impaired balance, Decreased endurance, Impaired self-care abilities, Impaired cognitive status, Assistance needed with functional mobility, Fall risk,Recent decline in functional mobility, Recent decline in self-care abilities, Recent decline in cognitive function, Patient has appropriate assistance and setup at home for ultimate discharge to homeonce patient has progressed functionally following inpatient rehab Mobility equipment available at home: rollator, stair glide ADL equipment available at home: shower chair, grab bars Equipment recommendations for discharge: wheelchair, bedside commode, shower chair Current therapy frequency recommendation(s) in acute: 5 times a week Precautions and Weightbearing Status: OT Existing Precautions/Restrictions: fall Telemetry Patient Safety Communication Prior to Visit: Nursing Subjective: Pt laying supine upon arrival and agreeable to OT intervention. Pt reports discomfort in L wrist ever since fall x2 days ago. Pain: General Pain Documentation (Adult, OB, Peds) Presence of Pain: complains of pain/discomfort Pain Location: wrist, left Objective/Observation: Vitals/Vitals Responses to Treatment: VSS Respiratory Status O2 Device: room air Vision Screen Clinical Observations: L inattention requiring cues to attend to L visual field Cognition Overall Cognitive Status: Impaired Arousal/Alertness: Appropriate responses to stimuli Orientation Level: Oriented to person, Oriented to situation, Oriented to place Following Commands: Follows one step commands with increased time, Follows one step commands with repetition Safety Judgment: Decreased awareness of need for assistance, Decreased awareness of need for safety Awareness of Errors: Assistance required to identify errors made, Assistance required to correct errors made Deficits: Decreased awareness of deficits Attention Span: Attends with cues to redirect Cognition Comments: improved alertness and attention this date. L inattention and required cues throughout session. decreased insight to deficits ADL Assessment/Intervention: ADLs: Toilet Assistance: min assist Toileting Location: bedside commode Toileting Deficit: Increased time to complete, Activity tolerance, Balance Toilet Skilled Rationale (Verbal/Tactile/Visual/Demonstration): Setup, Supervision, Technique of activity Toileting Intervention/Details: pt able to transfer to [facility] with min assist x1 for balance and engaged in toileting tasks. pt able to perform perihygiene care while seated with lateral weight shift tothe R Extremity Assessments: See OT Evaluation flowsheet for Extremity Measurement updates. Balance: Sitting Balance Static Sitting-Level of Assistance: Standby Dynamic Sitting-Level of Assistance: Contact guard Skilled Rationale: Verbal cues, Full extension to upright positioning/posture, Technique of activity Sitting Balance Skilled Intervention/Details: cues for upright trunk extension while sitting EOB. pt with no LOB but required cues for LUE placement Standing Balance Static Standing-Level of Assistance: Minimum assistance Dynamic Standing-Level of Assistance: Minimum assistance, Moderate assistance Standing-Balance Support: Gait belt (LUE support) Skilled Rationale: Positioning, Hand placement, Sequencing, Verbal cues, Full extension to upright positioning/posture, Technique of activity Standing Balance Skilled Intervention/Details: pt able to ambulate in hallway with using hand rail with R hand with min assist for balance. pt required cues to weight shift. Skin and Edema: swelling noted in distal LUE Mobility Assessment/Intervention: Supine to Sit Mobility Jay Level: Supine->Sit: moderate assist (50% patient effort) Physical Assist: Supine->Sit: 2 person assist Bed Features/Set-up: Supine->Sit: Head of bed elevated, Use of bed rail Skilled Rationale: Positioning, Sequencing, Hand placement, Verbal cues, Tactile cues, Technique ofactivity, Full extension to upright positioning/posture Skilled Intervention/Details: Supine->Sit: cues for postioning, initiation and sequencing. therapist assits with upper trunk and BLE to sit EOB, facilitation of anterior shift of hips for safe positioning Transfer Assessment/Intervention: Sit to Stand Transfer Jay Level: Sit->Stand: moderate assist (50% patient effort) Physical Assist: Sit->Stand: (1 person) Assistive Device: Sit->Stand: gait belt Skilled Rationale: Positioning, Sequencing, Verbal cues, Hand placement, Technique of activity, Full extension to upright positioning/posture, Patellar block, Facilitate anterior shift Skilled Intervention/Details: Sit->Stand: verbal cues for initiation, sequencing, hand placement, anterior shift of hips to initiate stand. Stand to Sit Transfer Jay Level: Stand->Sit: moderate assist (50% patient effort) Physical Assist: Stand->Sit: (1 person) Assistive Device: Stand->Sit: gait belt Skilled Rationale: Positioning, Sequencing, Hand placement, Verbal cues, Tactile cues, Controlled descent for sitting, Technique of activity Skilled Intervention/Details: Stand->Sit: pt required cues for eccentric control in descent, required verbal/tacilte cues for L hand placement to armed chair, and close proximity to recliner chair Functional Mobility: Functional Mobility Jay Level: Functional Mobility/Gait: moderate assist (50% patient effort) (mod-min x1) Physical Assist: Functional Mobility/Gait: chair follow (1 person) Assistive Device: Functional Mobility/Gait: gait belt Functional Mobility Distance: Distance needed to access restroom Functional Mobility Deficits: Activity tolerance, Attention, Balance, Generalized weakness, Problemsolving, Sequencing Functional Mobility Skilled Rationale: Cues for cognitive deficit, Cues for increased safety, Facilitate anterior shift, Facilitate positioning, Facilitate postural control, Finding/maintaining midline positioning, Hand placement, Technique of activity, Verbal cues Skilled Intervention/Details - Functional Mobility/Gait: therapist provided support at LUE. cues for upright trunk/hip extension. assist min x1 when holding onto rail in hallway with RUE, mod x1 without holding onto railing. Pt with noted decreased advancement on L foot with mobility CURRENT [facility] Daily Activity Inpatient Short Form Putting on/Taking Off Lower Body Clothin - A Lot of Assistance Bathin - A Lot of Assistance Toiletin - A Lot of Assistance Putting on/Taking Off Upper Body Clothin - A Lot of Assistance Groomin - A Little Assistance Eatin - A Little Assistance CURRENT [facility] Activity Raw Score: 14 CURRENT [facility] Activity Functional Limitation/Modifier: 59.67% Currently Impaired in Daily Activity- CK Interventions: Intervention 1 Intervention Name: Dynamic balance with functional mobility Sets/Reps/Duration: ~12 minutes Details: Pt required min A for dynamic balance for household ambulation with use of hand rail with RUE for support. Pt ambulated without hand rail and required mod assist x1 with chair follow. Fair endurance and fatigue noted with seated rest break during functional mobility. Pt. Required verbal cues to weight shift due to slight lean to the L with ambulation. x3 trials in hallway with hand rail on R side Intervention 2 Intervention Name: LUE NMR Details: Therapist provided coaching to integrate LUE with transfers and daily routine tasks. Pt encouraged to look at L side due to inattention to the L. While sitting in chair, patient had no awareness of LUE hanging off the side, required cues to scan/attend to LUE and use RUE to assist LUE ontolap. Assessment & Plan: Pt motivated to participate in therapies and making good progress towards goals. Pt with improved standing and sitting balance this date. Pt continues to require min assist for functional transfers and min-max assist for basic self care activities. Pt limited by LUE weakness/inattention, fair joint& postural flexibility, fair dynamic standing balance, and fair functional endurance. Pt to continue to benefit from OT services to increase independence with self care and safety during functional transfers. Patient Instruction/Education this session: Patient Instruction: role of OT, OT POC, LUE integration Plan for next session: modified ADLs, functional endurance, LUE integration Acute OT Goals Plan of Care by Yasemin Cardenas OT at 08/17/2022 2:47 PM Version 1 of 1 Problem: OT - Visual Scanning Goal: Visual Tracking Description: Pt will track past midline to left 6 completions during session with 20 % cues, to attend to familiar object/person for ADL participation. Outcome: Ongoing Problem: OT - Cognition Goal: Cognition simple ADL Description: Pt will demonstrate improved cognition, completing simple ADL task for 10 minutes with2 cues required to maintain attention, for improved safety and success at discharge destination. Outcome: Ongoing Problem: OT - Strength/ROM Goal: Neuro Re-education Description: Pt will participate in neuro re-ed of (LUE) to improve strength by 2 muscle grades in each group, for improved use in ADLs. Outcome: Ongoing Problem: OT - Balance Goal: Balance - Standing Description: Pt will perform 6-8 minutes of functional ADL task in standing with contact guard assistance and balance level of contact guard to promote safety and improved balance required for self-care activities. Outcome: Ongoing Problem: OT - Transfers Goal: Transfers Sit -> Stand Description: Pt will demonstrate good safety awareness during sit to/from stand functional transferwith CGA and least restrictive device for improved safety and success at recommended discharge destination. Outcome: Ongoing Problem: OT - Balance Goal: Balance - Standing Description: Pt will perform 4-5 minutes of functional ADL task in standing with moderate assistance and balance level of moderate assist to promote safety and improved balance required for self-careactivities. 08/17/2022 1448 by Yasemin Cardenas OT Outcome: Completed 08/17/2022 1448 by Yasemin Cardenas OT Outcome: Met This Shift Problem: OT - Transfers Goal: Transfers Sit -> Stand Description: Pt will demonstrate good safety awareness during sit to/from stand functional transferwith moderate assistance and least restrictive device for improved safety and success at recommended discharge destination. 08/17/2022 1448 by Yasemin Cardenas OT Outcome: Completed 08/17/2022 1448 by Yasemin Cardenas OT Outcome: Met This Shift OT treatment consisted of ADL retraining, balance training, bed mobility training, energy conservation/endurance training, neuromuscular re-education, strengthening, and transfer training to work andprogress towards above goal(s). Treating Therapist: Cesar Alcantar Student Occupational Therapist Additional Details: Co-evaluation/co-treatment performed?: Yes, simultaneous billable skilled care This co-treatment session performed between OT and PT was beneficial, necessary and provided distinct services in progressing this person's individual plan of care. Medical complexity with functionaldeficits that necessitate two skilled therapy disciplines working concurrently to optimize patient's progress towards each discipline's goals. This co-treatment was medically necessary due to patient's: Cognitive issues, Coordination issues, and Postural control. Patient benefits from simultaneous treatment from another therapy discipline to maximize progress towards functional Occupational Therapy goals. I used facemask, protective eye shield, and gloves in today's patient interaction. Patient location at end of session: chair Alarms on at end of session: chair alarm Needs in reach. Time In: 1419 Time Out: 1443 Total Visit Time: 24 minutes Total Treatment Time (skilled, billable minutes): 24 minutes Upon discontinuation of Acute Care Occupational Therapy Services or patient discharge from the hospital this note represents the current Occupational Therapy Discharge Summary. Associated attestation - Yasemin Cardenas OT - 08/17/2022 4:26 PM EST This note was reviewed and edited as necessary to reflect the patient's clinical status and OT treatment and plan of care. Read and co-signed by: Yasemin Delgado OTR/L License #:[id number] Pager #:[phone] * ALDO Donnelly - 08/17/2022 12:07 PM EST AURY spoke with patient's spouse and updated him that patient has progressed to an In-Patient Rehab level of care for SNF. CM explained IPR vs SNF levels of care, with Therapy service delivery and more aggressive rehabilitation and shorter length of stay. Spouse was in agreement with referrals being initiated for IPR, with preference close to the [facility]. Spouse also requested getting a HCPOA established. CM updated SW. CM uploaded current clinical and therapies to [facility] for IPRs to review. SW will follow up with the spouse on choice. ALTAF Donnelly, FIREWORKS INSPECTOR [employer] * Kamilla Hernandez, TRENCHING MACHINE OPERATOR - 08/17/2022 11:02 AM EST Acute Care Speech Language Pathology Modified Barium Swallow Evaluation Note Diet Recommendations: Recommended Method of Nutrition: PO Recommended Diet Grade: dysphagia- soft and bite sized (IDDSI 6) Recommended Liquid Consistency: liquid- thin (IDDSI 0) Recommended Medication Administration (as appropriate per MD): Whole, In puree Swallow Strategies: (bolus placement on R, lingual/finger sweep PRN) Type of Cues/Supervision: intermittent supervision (assist with tray set up but patient can self feed) Assistance: family, nurse/aide Discharge Recommendations: Based on the below outcome measures/assessment score(s), FOIS 5, and SLPclinical judgment, discharge destination recommendation is: IP Rehab Facility. Patient demonstratesexcellent candidacy for discharge to: IRF. Additional supporting factors include: Impaired swallow function limiting nutritional status and safety with oral intake and Impaired cognitive skills limiting independence. Acute TRENCHING MACHINE OPERATOR Outcomes Tracking Communicate basic wants and needs?: yes Demo insight/appreciation of deficits?: yes Appreciate deficits - Details: improving Complete basic problem solving?: yes Basic problem solving - Details: for very basic Current therapy frequency recommendation in acute care: Speech/Lang/Cog Therapy Frequency: 3 times a week Swallow Therapy Frequency: 3 times a week Date of Procedure: 08/17/2022 General Patient Information Name: Camille Dawkins Gender: female Date of : 1960 Diagnosis and Associated Codes: No diagnosis found. No past medical history on file. Past Surgical History: Procedure Laterality Date THROMBECTOMY MECHANICAL/INFUSION FOR THROMBOLYSIS INTRACRANIAL ARTERY Right 08/09/2022 Laterality: Right; Surgeon: Ángel Patel MD, PhD; Location: [facility] Relevant History: Prior Level of Function Vocal Parameters: WFL Patient History Comments: Pt is a 62 y.o. female who presents today with past medical history significant for HTN, DM, eliquis. She was admitted with L sided weakness, facial droop, and dysarthria. Upon arrival to [facility], NIHSS was 8. She underwent thrombectomy where TICI 2b revascularization was achieved. Prior Study: 08/10/22 FEES: Camille Dawkins was seen for FEES Study and presents with at least moderate oropharyngeal dysphagia, however mentation and alertness also negatively impacting this date s/p acute R MCA CVA with thrombectomy. Oral phase characterized by reduced labial seal on left. Required placement on R side, consistent verbal and tactile cues for adequate acceptance/coordination this date. Trace oral residuals suctioned from oral cavity following study. Pharyngeal phase characterized by swallow initiation with bolus at level of laryngeal vestibule and pyriforms (suspect reduced oral coordination and neurosensory awareness negatively impacting). Adequate epiglottic inversion however suspect reduced laryngeal vestibule closure given penetration of liquids immediately prior to/during swallow remaining in laryngealvestibule upon swallow completion. Suspect aspiration of thin liquids with cords coated and weak/ine ffective cough to eject material from subglottic space. Penetration coating the cords with mildly thick liquids and within vestibule with puree solids also not cleared with cued cough, residue eventually decreasing with subsequent swallows. Pt demonstrating multiple swallows with all trials this date, effective at reducing diffuse residue. Given overall presentation, weak/ineffective cough, reported RN concerns for alertness throughout day, TRENCHING MACHINE OPERATOR proceeding conservatively- recommending continued NPO, ok for ice chips. Should DHT access be removed consideration of necessary meds in puree solids. TRENCHING MACHINE OPERATOR to follow for ongoing bolus challengetrials. When clinically indicated and medically stable to leave ICU floor, consider MBS (in [facility] due to body habitus) in order to objectively assess oral+pharyngeal swallow and possible aspiration during the swallow (weak/ineffective cough and other FEES limitations impacting this date). Subjective: Patient is drowsy but awakens with cueing. Pain: General Pain Documentation (Adult, OB, Peds) Presence of Pain: denies pain/discomfort DVPRS (Defense and Veterans Pain Rating Scale) DVPRS: Rest: 8- severe pain DVPRS: Activity: 8- severe pain General Pain Descriptors Pain Radiation To: 7 Respiratory Status: O2 Sat (%): 99 % (08/17 854) O2 Device: room air (08/17 854) Flow (L/min): 1 (08/16 2200) Assessment: Consistencies Assessed: This study was conducted in the lateral view. Patient was presented with the following barium consistencies: Varibar Thin Barium: teaspoon and straw Varibar Pudding Barium: teaspoon Regular contrasted with Varibar Paste Barium: megan crackers CRANIAL NERVE EXAMINATION: Cranial Nerve Exam CN V (Trigeminal) weakness of either masseter or temporal muscles or both (L facial weakness) CN VII (Facial) unilateral or bilateral weakness of upper or lower face or both (L facial weakness,L eye ptosis that family says is baseline?) CN IX (glossopharyngeal) hoarseness (mild) CN X (Vagus) hoarseness (mild) CN XI (Accessory) weak or unequal shoulder shrug CN XII (Hypoglossal) deviation of tongue from midline (slight lingual deviation to the left) Oral phase: Oral Phase Lip Closure: escape from interlabial space or lateral junction, no extension beyond nicole border Tongue Control During Bolus Hold: posterior escape of greater than half of bolus Bolus Preparation/Mastication: slow prolonged chewing/mashing with complete recollection Bolus Transport/Lingual Motion: delayed initiation of tongue motion Oral Residue: residue collection on oral structures Location of Oral Residue: tongue, palate Initiation of Pharyngeal Swallow: bolus head in pyriforms Pharyngeal Phase: Pharyngeal Phase Soft Palate Elevation: no bolus between soft palate and posterior pharyngeal wall Laryngeal Elevation: complete superior movement of thyroid cartilage with approximation of arytenoids to epiglottic petiole Anterior Hyoid Excursion: complete anterior movement Epiglottic Movement: complete inversion Laryngeal Vestibule Closure-Height of Swallow: complete Pharyngeal Stripping Wave: present - complete Pharyngeal Contraction in A/P View: complete Pharyngoesophageal Segment Opening: complete distention and complete duration, no obstruction of flow Tongue Base Retraction: trace column of contrast between tongue base and posterior pharyngeal wall Pharyngeal Residue: complete pharyngeal clearance Esophageal Phase: N/A Airway Events: Airway Events: Penetration / Aspiration Scale (PAS) Thin: 2 - Material enters the airway, remains above the vocal folds and is ejected from the airway, before swallow Dysphagia- pureed (IDDSI 4): 1 - Material does not enter the airway Regular Solid: 1 - Material does not enter the airway Impressions: Camille Dawkins presents with mild oropharyngeal dysphagia s/p acute R MCA CVA. The patient with reduced lingual control with posterior bolus loss of liquids into the pyriforms with swallow initiation delay (suspect reduced pharyngeal sensation). She also presents with prolonged mastication with moderate oral residuals which was cleared from the oral cavity with spontaneous subsequent swallow and liquid wash. The patient with one instance of flash laryngeal penetration of thin liquids. No aspiration noted. Patient was noted with intermittent independent chin tuck position - reporting she feels like it improves control of liquids. At this time, recommend diet initiation of Soft and Bite Sized (IDDSI 6)/Dysphagia Advanced, thin liquids, and medication as tolerated. Will continue to follow. Expect advancement of solids soon given patient's excellent ability to follow compensatory swallow strategies. Patient Education/Instruction This Session: Education provided regarding results/recommendations from MBS. Plan for next session: Trials of regular solids at bedside. RECOMMENDATIONS: Swallow Recommendations Recommended Method of Nutrition: PO Recommended Diet Grade: dysphagia- soft and bite sized (IDDSI 6) Recommended Liquid Consistency: liquid- thin (IDDSI 0) Recommended Medication Administration (as appropriate per MD): Whole, In puree Swallow Strategies: (bolus placement on R, lingual/finger sweep PRN) Type of Cues/Supervision: intermittent supervision (assist with tray set up but patient can self feed) Assistance: family, nurse/aide Recommended Rehab Activities: bolus manipulation exercises Assessment Criteria For Skilled Therapeutic Interventions Met: yes, treatment indicated Impairments Found (Describe Specific Impairments): swallowing Global Functional Limitations: swallowing Rehab Potential: excellent candidate for stated goals Acute TRENCHING MACHINE OPERATOR Goals Plan of Care by Kamilla Hernandez, TRENCHING MACHINE OPERATOR at 08/17/2022 9:45 AM Version 1 of 1 Problem: TRENCHING MACHINE OPERATOR - Dysphagia Goal: PO Trial 3 Description: Patient will swallow 5-8 trials of regular solids demonstrating timely/effective mastication, bolus formation and oral bolus transit without overt clinical signs/symptoms of aspiration, across 1-2 sessions to determine readiness for diet advancement. Outcome: Ongoing No longer applicable: Problem: TRENCHING MACHINE OPERATOR - Dysphagia Goal: Bolus Challenge Goal 1 Description: Patient will swallow therapeutic p.o.trials/bolus challenge swallows (with TRENCHING MACHINE OPERATOR only) of puree solids x10-20 trials, given mod cues, for use of double swallow strategy to improve bolus efficiency/promote reduction of pharyngeal residue, without clinical signs/symptoms of airway penetrati on/aspiration over the course of x1-3 sessions to progress towards potential readiness for a repeatinstrumental swallow evaluation. Outcome: Completed Goal: Bolus Challenge Goal 2 Description: Patient will swallow therapeutic p.o.trials/bolus challenge swallows (with TRENCHING MACHINE OPERATOR only) of thin liquids via straw/cup x10-15 trials, given mod cues, for neuro stimulation opportunities without clinical signs/symptoms of airway penetration/aspiration over the course of x1-3 sessions to determine possible readiness for a repeat instrumental swallow evaluation. Outcome: Completed Goal: Swallow Strategy Goal Description: Patient will utilize safe swallow strategies (bolus placement on R, lingual sweep, liquid wash) during PO trials of advanced solids with min cues across 1-2 sessions to demonstrate improved safety and independence with PO trials. Outcome: Completed Time In: 0945 Time Out: 1010 Total Visit Time: 25 minutes Total Treatment Time (skilled, billable minutes): 25 minutes I used gloves and facemask in today's patient interaction. I was assisted by Sparkle Muniz RA during this visit. Therapist: Kamilla Hernandez MS, CCC-TRENCHING MACHINE OPERATOR #[id number] Pager# [phone] Can also be reached via [employer] secure chat Mon-Tue between [phone] Upon discontinuation of Acute Care Speech Therapy Services or patient discharge from the hospital this note represents the current Speech Therapy Discharge Summary * Amy Car APRN-IVETTE - 08/17/2022 6:59 AM EST NEUROVASCULAR STROKE SERVICE Daily Progress Note IDENTIFYING INFORMATION Camille Dawkins MR# [id number] 08/17/2022 HISTORY OF PRESENT ILLNESS Camille Dawkins is a 62 y.o. female with PMH significant for HTN, DM, Afib on Eliquis- last dose 08/08 whopresented to an OSH on 08/09 with left sided weakness. LKW 08/08 @ 1999. She was evaluated via telestroke. NIHSS 6. Not a candidate for iv thrombolysis due to Eliquis use. CTA showed R M2 occlusion. She was trasnsferred to [facility] for further care. Upon arrival to [facility], NIHSS was 8. CTP shows 2ml core and 86 ml penumbra she was taken to OR and a TICI 2b revascularization was achieved. INTERVAL HISTORY 08/10: Brain MRI pending. Left arm weakness worse. updated at bedside. 08/11: MRI done, home lopressor resumed, diet advanced 08/14: Lasix held due to soft BP with SBP as low as 90, 250 ml bolus given with improvement. Neuro exam stable. AC initiated for afib 08/15: No events overnight. SBP 100s. Improved oral intake. 08/16: Home mirtazepine/trazadone added for anxiety/insomnia, speech re-eval today 08/17: TTEpending. No events overnight. Home lasix resumed. Metoprolol changed to XL, diet advance to thin liquids. Per speech recommendations PHYSICAL EXAM Gen: awake, alert, NAD HEENT: normocephalic, no scalp lesions or tenderness Neck: trachea midline CV: +S1S2, irregular-afib on quality assurance monitor final, no m/r/g Lungs: clear, but diminished, bilaterally with equal chest rise. On RA. Abd: soft, nontender, nondistended, +BS x4 quadrants Extrem: Warm and well perfused, no edema Neuro: Oriented x3, RAM x 3, sensation decreased on left. Mild dysarthria CN II - All visual rankin intact CN II/III - PERRLA CN III/IV/ - EOMI CN V - Light touch to face intact in V1-3 CN VII - Left facial droop CN VIII - Hearing intact CN X - Cough present CN XI - Left shoulder weakness CN XII - midline protrusion of tongue MOTOR EXAMINATION: LUE without movement NIHSS 08/17/2022 Provider NIH Stroke Scale NIH Interval (Provider): daily NIH Level of Conciousness (Provider): 0 NIH LOC Questions (Provider): 0 NIH LOC Commands (Provider): 0 NIH Best Gaze (Provider): 0 NIH Visual (Provider): 0 NIH Facial Palsy (Provider): 2 NIH Left Arm Motor (Provider): 3 NIH Right Arm Motor (Provider): 0 NIH Left Leg Motor (Provider): 0 NIH Right Leg Motor (Provider): 0 NIH Limb Ataxia (Provider): 0 NIH Sensory (Provider): 0 NIH Best Language (Provider): 0 NIH Dysarthria (Provider): 1 NIH Extinction and Inattention (Provider): 0 NIH Total Score (Provider): 6 ASSESSMENT AND PLAN Neuro: Acute right MCA stroke, R M2 occlusion, s/p TICI 2b CTH: Acute ischemic infarct in the right insula. CTA brain/neck: Right M2 occlusion CTP: Large perfusion mismatch of 86 ml in right MCA territory MRI brain: R MCA stroke, no hemorrhage TTE: Pending LDL 31, A1c 7.5 -Stroke Etiology (TOAST Criteria): Cardio embolic from A fib -Antiplatelet not indicated in addition to AC -AC plan: eliquis 5 mg BID -Statin therapy: Lipitor 40 mg -Blood Pressure goal: SBP <160 Ischemic Stroke Core Measures -NIHSS on admission 8 -Patient has been started on Mechanical (SCD's) and Pharmacological (SQ heparin/Lovenox) DVT prophylaxis. -Antiplatelet therapy has been initiated, Aspirin 81 mg daily. -Anticoagulation therapy was indicated for this patient, d/t A fib -Patients LDL 31 and HgbA1c 7.5 were checked and the patient may discharged on Atorvastatin daily. -Dysphagia screening ordered, and will be completed prior to patient receiving oral intake. -Stroke education booklet has been ordered and will be provided by the RN that includes both written and verbal education to the patient and family regarding ischemic strokes. We have reviewed the patient's personal modifiable risk factors including: HTN, A fib, DM as well as education on reducing these risk factors -Patient is being assessed for Rehab by PT/OT/Speech and PM&R if indicated. Afib (POA) HTN (POA) CHF (POA) -home regimen: losartan 25 mg daily (held), metoprolol succinate 100mg XL daily, spironolactone 25 mg daily (held), lasix 20 mg daily (resumed 08/17), farxiga 10 mg daily (held) -Could not find OSH TTE to evaluate type of chronic heart failure, pt's spouse reports EF 30% -TTE pending -Daily weights and I & O's -08/17: metoprolol changed to home dose of 100 mg XL -AC plan: Resumed home eliquis post stroke day 5 (08/14/22) Dysphagia: -soft and bite size, thin liquids, meds whole or crushed in puree -Speech following DM type II, (POA): -ACHS + carb control diet, SSI -glargine 5 units daily (decreased 08/15 for hypoglycemia) CKD stage IIIA, (POA): -Per OSH records -unknown baseline, 1.62 Cr on admission, today 1.49 -Avoid nephrotoxic agents/renally dose medications -trend chem Hx of h-pylori Hx of duodenitis/esophagitis, (POA): -H-pylori treatment started per [facility]U, end 08/11 (doxycyline monohydrate, metronidazole, and bismuthsubsalicylate) -Nexium 40 mg q 12 hours JAMALA (POA): -listed from OSH records -Pt states she has not had a sleep study and does not wear CPAP Anxiety (POA) Depression (POA) Insomnia (POA) -Continue home Cymbalta, trazodone, mirtazepine Disposition: Camille Dawkins will be discharged when medically ready after work up completed. Referrals sent to [facility]. Amy Car APRN-SITE ADMINISTRATOR 08/17/2022 9:08 AM VITAL SIGNS Temp: [96 F (35.6 C)-97.6 F (36.4 C)] 97.6 F (36.4 C) Pulse (Heart Rate): [85-104] 92 Resp Rate: [14-24] 21 BP: (108-149)/(59-87) 111/76 O2 Sat (%): [91 %-100 %] 99 % Oxygen Therapy: Oxygen Therapy O2 Sat (%): 99 % O2 Device: room air Flow (L/min): 1 Intake/Output: Intake/Output Summary (Last 24 hours) at 08/17/2022 0908 Last data filed at 08/17/2022 0600 Gross per 24 hour Intake 0 ml Output 75 ml Net -75 ml LABS/CULTURES Lab Results Component Value Date WBC 9.74 08/16/2022 HGB 10.9 (L) 08/16/2022 HCT 35.4 08/16/2022 PLATELET 200 08/16/2022 MCV 86.3 08/16/2022 Lab Results Component Value Date SODIUM 133 (L) 08/16/2022 POTASSIUM 5.0 08/16/2022 CHLORIDE 100 08/16/2022 CO2 24 08/16/2022 BUN 41 (H) 08/16/2022 CREATSERUM 1.49 (H) 08/16/2022 GLUCOSE 189 (H) 08/16/2022 Lab Results Component Value Date CHOLESTEROL 67 08/10/2022 TRIG 54 08/10/2022 HDL 25 (L) 08/10/2022 LDLCALC 31 08/10/2022 Lab Results Component Value Date HGBA1C 7.5 (H) 08/10/2022 Lab Results Component Value Date ALBUMIN 3.3 (L) 08/10/2022 , No results found for: CPK, TROP IMAGING/DIAGNOSTIC STUDIES XR CHEST PORTABLE Final Result IMPRESSION: Low lung volumes with bilateral basilar groundglass opacities. Pulmonary edema is a consideration in the appropriate clinical setting. BRAIN WITHOUT CONTRAST Final Result IMPRESSION: Moderate motion artifact. Small acute right MCA territory infarct involving the right insula, basal ganglia, right colmenares radiata, right frontal and parietal lobes. No definite evidence of hemorrhagic transformation or significant mass effect. ABDOMEN 1 VIEW Final Result IMPRESSION: Distal tip of the Dobbhoff tube in the proximal jejunum. HEAD WITHOUT CONTRAST Final Result IMPRESSION: The subtle area of low-attenuation in the right insula is unchanged. There is also additional subtle area of low-attenuation in the right frontal colmenares radiata corresponding to the perfusion abnormality from prior CTP. These are compatible with recent infarcts. No evidence of acute hemorrhage. HEAD WITHOUT CONTRAST Final Result IMPRESSION: The area of low-attenuation in the right insula was present on prior, likely due to small amount of contrast staining. No evidence of acute intracranial hemorrhage. CHEST PORTABLE Final Result IMPRESSION: Mild cardiomegaly. Linear atelectatic changes. CEREBRAL PERFUSION ANALYSIS Final Result IMPRESSION: Large perfusion mismatch in the right MCA territory, with mismatch volume of 86 cc. Small core infarct in the deep white matter, although this does not correspond to the evolving infarct noted on the noncontrast CT. STROKE HEAD-STROKE ALERT ONLY Final Result IMPRESSION: 1. 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 2. No acute intracranial hemorrhage. Findings were discussed with Mariposa Han NP at 7:52 AM on August 09, 2022. I personally viewed and interpreted these images and I have reviewed and approved this report. RO IMAGING FOR NEURO ENDOVASCULAR (Results Pending) ECHOCARDIOGRAM (Results Pending) XR FLUORO MODIFIED BARIUM SWALLOW WITH SPEECH (Results Pending) MEDICATIONS apixaban 5 mg Oral Q12H atorvastatin 40 mg Oral QHS DULoxetine 30 mg Oral Daily esomeprazole 40 mg Oral Q12H furOSEmide 20 mg Oral Daily insulin glargine injection 5 Units Subcutaneous Q24H Insulin lispro Subcutaneous 4x daily w/meals, HS metoprolol 75 mg Oral Q8H mirtazapine 15 mg Oral QHS senna 8.6 mg Oral QAM traZODone 100 mg Oral QHS * ALDO Donnelly - 08/16/2022 3:43 PM EST Progression of Care Note Expected Discharge Date: Medical Milestones Remaining: None Assessment and Discharge Plan as of 08/16/2022 3:43 PM IPR Patient Choice for Post-Acute Providers Anticipated discharge disposition: Senior Living Facility Anticipated Services at Discharge: Physical Therapy, Occupational Therapy, Senior Living, Outpatient follow up, Speech Therapy Explanation of Barriers: Patient has prgressed to IPR. SW to address with patient 's spouse and initated appropriate referral Readmission Risk Score Risk of Readmission: 7 Category Reference: High:16-100 Mod-High:10-16 Mod-Low: 5-10 Low: 0-5 ALTAF Donnelly LSW Slunk Skinner * Raine Bryan MD - 08/16/2022 3:33 PM EST Stroke Attending Addendum (Date of service 08/16/22): I have interviewed and examined patient. I have reviewed Delaney Lincoln CNP's note and agree with the following highlights, additions, and addendums: The patient is a 62 y.o. right-handed female with a history of hypertension, diabetes mellitus, atrial fibrillation on eliquis who on 08/08/22 [id number] was LKN and then developed symptoms of left hemiparesis. Patient was taken to [facility] Emergency Room where Telestroke showed an NIHSS of 6. CT brain was negative for acute changes. OSH CT angiogram head/neck showed a right M2 occlusion. The patient did not receive IVtPA. Patient transferred to [facility] and initial NIHSS on arrival was 8. CTP shows a right MCA MM. The patient was taken for intra-art erial therapy and had TICI 2b recanalization. The patient was transferred to [facility]. LDL 31, HgbA1c 7.5. MRI brain diffusion weighted images acute right MCA infarct (small). Interval Overnight History:No headache. Did not sleep well last night. Neurological examination shows left hemiparesis and dysarthria, NIHSS 6 (LF-1, LUE-4, dys-1). Assessment/Plan: Acute right MCA ischemic stroke, right M2 MCA occlusion s/p intra-arterial therapy with TICI 2b recanalization Post-stroke day # 7. Stroke mechanism is cardioembolism subtype (due to atrial fibrillation). Stroke work-up pending TTE (for CHF). Resumed home eliquis. Continue vascular risk factor modification. On lipitor 40. On lopressor. DVT pro phylaxis with SCDs and eliquis. PT/OT consults-ARF, precert. SLEEP SMART. Hold home diuretic. Raine Bryan MD * BEN Becker - 08/16/2022 11:42 AM EST Acute Care Speech Language Pathology Treatment Diet Recommendations: Recommended Method of Nutrition: PO Recommended Diet Grade: dysphagia- soft and bite sized (IDDSI 6) Recommended Liquid Consistency: liquid- moderately thick (IDDSI 3)/honey Medications: with food Swallow Strategies: (Placement to right, lingual/ finger sweeps, oral care) Type of Cues/Supervision: intermittent supervision (Setup assistance) Assistance: family (Tray setup) Discharge Recommendations: Based on the below outcome measures/assessment score(s), FOIS, and TRENCHING MACHINE OPERATOR clinical judgment, discharge destination recommendation is: Inpatient Rehab Facility Barriers to discharge home: Cognitive impairments that impact safety Supporting factors for discharge setting: Impaired swallow function limiting nutritional status andsafety with oral intake Acute TRENCHING MACHINE OPERATOR Outcomes Tracking Communicate basic wants and needs?: yes Demo insight/appreciation of deficits?: yes Appreciate deficits - Details: Improving Complete basic problem solving?: yes Basic problem solving - Details: Basic problem solving only Current therapy frequency recommendation in acute: Speech/Lang/Cog Therapy Frequency: 3 times a week Swallow Therapy Frequency: 5 times a week Clinical Impression: Camille Dawkins presents with moderate oropharyngeal dysphagia, suspect improved compared to initial instrumental swallow study per treatment sessions, moderate dysarthria, and mild cognitive deficits s/p acute R MCA CVA. Patient with improved alertness and decreasing signs/ symptoms concerning for aspiration at bedside. Given hx of silent aspiration of thin liquids, recommend proceeding with a modified barium swallow study prior to further liquid level advancement. Subjective: Patient seen sitting upright in bedside chair, alert and agreeable to tx. Patient endorsed drowsiness towards end of session. Pain: General Pain Documentation (Adult, OB, Peds) Presence of Pain: denies pain/discomfort Respiratory Status: Room Air O2 Sat (%): 100 % (08/16 1144) O2 Device: room air (08/16 1144) Acute TRENCHING MACHINE OPERATOR Goals Plan of Care by Melani Monteiro, TRENCHING MACHINE OPERATOR at 08/16/2022 11:42 AM Version 1 of 1 Problem: TRENCHING MACHINE OPERATOR - Dysphagia Goal: Bolus Challenge Goal 2 Description: Patient will swallow therapeutic p.o.trials/bolus challenge swallows (with TRENCHING MACHINE OPERATOR only) of thin liquids via straw/cup x10-15 trials, given mod cues, for neuro stimulation opportunities without clinical signs/symptoms of airway penetration/aspiration over the course of x1-3 sessions to determine possible readiness for a repeat instrumental swallow evaluation. Patient agreeable to trials of thin liquids via tsp x3 and via straw (TRENCHING MACHINE OPERATOR assisted to remove given reduced labial ROM) x6. Patient with hard throat clearing on 6th/6 trials of thin liquids, requiringverbal cues to cough+ re- swallow. Given reduced signs/ symptoms of aspiration, recommend proceedingwith a repeat instrumental. Goal progressing, but not met. Continue goal. Outcome: Ongoing Problem: TRENCHING MACHINE OPERATOR - Motor Speech Goal: Dysarthria Strategy Goal 3 Description: Patient will improve articulatory precision by repeating x1-2 words with trained over articulation strategy across 90% of (at least x20) trials with mod cues over x3-4 sessions. Patient re-educated on use of diaphragmatic breathing (belly breaths) with use of pauses for improved control, reduced use of phonation on residual air. Patient able to utilize given strategies during running speech with direct min- mod cues, though did not appear to carryover after initial education. Goal progressing, but not met. Continue goal. Outcome: Ongoing Patient Instruction/Education this session: Role of TRENCHING MACHINE OPERATOR, current diet recommendations and diaphragmatic breathing Plan for next session: MBS I used facemask, protective eye shield, and gloves in today's patient interaction. Speech Language Pathologist: BEN Becker Time In: 1142 Time Out: 1200 Total Visit Time: 18 minutes Total Treatment Time (skilled, billable minutes): 18 minutes Patient location at end of session: chair Needs in reach. Upon discontinuation of Acute Care Speech Therapy Services or patient discharge from the hospital this note represents the current Speech Therapy Discharge Summary * Yasemin Cardenas OT - 08/16/2022 11:32 AM EST Acute Occupational Therapy Treatment Prior to Admission AM-PAC Score: PRIOR LEVEL AM-PAC Activity Raw Score: 24 PRIOR LEVEL AM-PAC Mobility Raw Score: 24 Current AM-PAC score(s): CURRENT AM-PAC Activity Raw Score: 12 Based on the above AM-PAC score(s), and OT clinical judgment, discharge destination recommendation is: Inpatient Rehab Facility Supporting Factors (would benefit from skilled therapy services): Patient status is anticipated to be appropriate to tolerate inpatient rehab therapy requirements at time of discharge from acute care, Impaired functional status, Decreased strength, Impaired balance, Decreased endurance, Impaired self-care abilities, Impaired cognitive status, Assistance needed with functional mobility, Fall risk,Recent decline in functional mobility, Recent decline in self-care abilities, Recent decline in cognitive function, Patient has appropriate assistance and setup at home for ultimate discharge to homeonce patient has progressed functionally following inpatient rehab Mobility equipment available at home: rollator, stair glide ADL equipment available at home: shower chair, grab bars Equipment recommendations for discharge: wheelchair, bedside commode, shower chair Current therapy frequency recommendation(s) in acute: 5 times a week Precautions and Weightbearing Status: OT Existing Precautions/Restrictions: fall, cardiac (Exit alarm; Smart socks.) Telemetry Patient Safety Communication Prior to Visit: Nursing Subjective: Pt reported, I tell it what to do and it doesn't listen in regards to functioning of left UE. Pain: General Pain Documentation (Adult, OB, Peds) Presence of Pain: complains of pain/discomfort Pain Location: back, left lower, back, right lower DVPRS (Defense and Veterans Pain Rating Scale) DVPRS: Rest: 8- severe pain DVPRS: Activity: 8- severe pain Objective/Observation: Vitals/Vitals Responses to Treatment: With activity participation seated EOB, pt presents with mildSOB, but vitals remaining WFL. Respiratory Status O2 Device: room air Vision Screen Currently wearing corrective lenses: No Clinical Observations: This date, pt appears to continue to present with aspects of left inattention, requiring cues to maintain visual attention in left visual field and to attend to left UE. Visual Impairments Observed?: Yes Speech Speech: slurred speech (Mild.) Hearing Hearing: no gross deficits noted Cognition Overall Cognitive Status: Impaired (Deficits in higher-level cognition present.) Arousal/Alertness: Delayed responses to stimuli Orientation Level: Oriented to person, Oriented to place, Oriented to time Following Commands: Follows one step commands with increased time, Follows one step commands with repetition Safety Judgment: Decreased awareness of need for assistance, Decreased awareness of need for safety Awareness of Errors: Assistance required to identify errors made, Assistance required to correct errors made Deficits: Decreased awareness of deficits Attention Span: Attends with cues to redirect, Difficulty dividing attention Memory: Decreased short term memory Problem Solving: Assistance required to identify errors made, Assistance required to generate solutions, Assistance required to implement solutions Cognition Comments: Mildly delayed processing rate/motor planning; Overall, decreased insight into deficits/safety awareness and limitations in higher-level executive functioning abilities. ADL Assessment/Intervention: Grooming Assistance: Minimal Grooming Location: edge of bed Grooming Deficit: Wash/dry face, Oral care, Brushing hair, Problem solving, Follows safety/precautions, Balance, Retrieval of items, Manipulation of items, Opening/closing containers, Generalized weakness, Activity tolerance, Increased time to complete, Maintain grasp of items Grooming Skilled Rationale (Verbal/Tactile/Visual/Demonstration): Setup, Cues for increased safety,Technique of activity, Cues for cognitive deficit, Facilitate postural control, Facilitate positioning Grooming Intervention/Details: Pt mostly required assistance with set-up of tasks due to left UE functioning deficits, pt also limited in performance by dynamic seated balance impairments. Pt demonstrated most difficulty with management of hair (overhead task for increased duration of time against g ravity). Pt initially neglected left side of hair when brushing hair, otherwise attended to left side of face/mouth when washing face/performing oral care with no cues. UE Dressing Assistance: Moderate UE Dressing Location: edge of bed UE Dressing Deficit: Thread RUE, Thread LUE, Pull up arm, Ties, Retrieval of items, Manipulation ofitems, Sequencing, Problem solving, Follows safety/precautions, Balance, Generalized weakness, Activity tolerance, Increased time to complete UE Dressing Skilled Rationale (Verbal/Tactile/Visual/Demonstration): Setup, Cues for increased safety, Technique of activity, Cues for cognitive deficit, Facilitate postural control, Facilitate positioning UE Dressing Intervention/Details: Pt mostly required cues for orientation of gown, as well as with manuevering left UE into/out of gown. Pt requiring significant cues for self-ranging of left UE to allow for performance of task, as well as to maintain attention to left UE/in left visual field for increased duration of time. Pt also minimally impacted by mild dynamic seated balance limitations during performance of task. Extremity Assessments: See OT Evaluation flowsheet for Extremity Measurement updates. Balance: Sitting Balance Static Sitting-Level of Assistance: (SBA-CGA) Dynamic Sitting-Level of Assistance: (CGA-minimal assistance) Sitting Balance Skilled Intervention/Details: Seated EOB for about 14-15 minutes, mostly requiring assistance with mild left lateral and retropulsive lean, especially when engaging in dynamic activities and without UE support on bed. Standing Balance Static Standing-Level of Assistance: (Minimal assistance x 1-2) Dynamic Standing-Level of Assistance: Minimum assistance, 2-person assist Standing Balance Skilled Intervention/Details: Standing for about 45 seconds-1 minute (x 3 trials) while completing functional transfers, mostly requiring assistance with initial hip extension, retropulsive/left lateral lean, mild left LE buckling, and kyphotic posture with flexed cervical position. Mobility Assessment/Intervention: Supine to Sit Mobility Jay Level: Supine->Sit: maximum assist (25% patient effort) Bed Features/Set-up: Supine->Sit: Head of bed elevated, Use of bed rail Skilled Rationale: Cues for increased safety, Initiation and execution of task, Technique of activity, Full extension to upright positioning/posture, Facilitate anterior shift, Tactile cues, Verbal cues, Hand placement, Sequencing, Positioning Skilled Intervention/Details: Supine->Sit: Cues for initiation/sequencing/safety, as well as assisting with upper trunk support, left LE, and aligning hips to midline; Increased time/effort for safe performance. Transfer Assessment/Intervention: Sit to Stand Transfer Jay Level: Sit->Stand: (x 2 trials from EOB (moderate assistance x 2 progressing to minimal assistance x 2); x 1 trial from bedside chair (moderate assistance x 1).) Physical Assist: Sit->Stand: (1-2 person assist pending trial.) Assistive Device: Sit->Stand: gait belt (Non-skid socks.) Skilled Rationale: Cues for increased safety, Technique of activity, Finding/maintaining midline positioning, Full extension to upright positioning/posture, Facilitate anterior shift, Ischial assist,Patellar block, Arm in arm, Tactile cues, Verbal cues, Hand placement, Sequencing, Positioning, Upright gaze/neck extension Skilled Intervention/Details: Sit->Stand: Cues for sequencing/safety, as well as assisting with initial hip extension, retropulsive/left lateral lean, mild left LE buckling, and kyphotic posture with flexed cervical position. Stand to Sit Transfer Jay Level: Stand->Sit: (Minimal-moderate assistance x 2, progressing to moderate assistance x 1.) Physical Assist: Stand->Sit: (1-2 person assist pending trial.) Assistive Device: Stand->Sit: gait belt (Non-skid socks.) Skilled Rationale: Cues for increased safety, Technique of activity, Controlled descent for sitting, Ischial assist, Arm in arm, Tactile cues, Verbal cues, Hand placement, Sequencing, Positioning Bed-Chair Transfer Jay Level: Bed<->Chair: minimum assist (75% patient effort) (EOB>Bedside chair.) Physical Assist: Bed<->Chair: 2 person assist Assistive Device: Bed<->Chair: gait belt (Non-skid socks.) Skilled Rationale: Cues for increased safety, Technique of activity, Upright gaze/neck extension, Finding/maintaining midline positioning, Controlled descent for sitting, Full extension to upright positioning/posture, Facilitate anterior shift, Ischial assist, Arm in arm, Tactile cues, Verbal cues,Hand placement, Sequencing, Positioning Skilled Intervention/Details: Bed<->Chair: Cues for sequencing/safety, as well as assisting with maintenance of upright posture and weight shifting to side- step towards the right (increased assist for left LE mobility). Outcome Score(s): CURRENT AM-PAC Daily Activity Inpatient Short Form Putting on/Taking Off Lower Body Clothin - Total Assistance Bathin - A Lot of Assistance Toiletin - Total Assistance Putting on/Taking Off Upper Body Clothin - A Lot of Assistance Groomin - A Little Assistance Eatin - A Little Assistance CURRENT AM-PAC Activity Raw Score: 12 CURRENT AM-PAC Activity Functional Limitation/Modifier: 66.57% Currently Impaired in Daily Activity- CL PROJECTED AM-PAC Activity Raw Score: 17 PROJECTED AM-PAC Activity Functional Limitation/Modifier: 50.11% - CK Interventions: Intervention 1 Intervention Name: Seated EOB, therapist engaged pt in a neuro re-education activity. Specifically,pt required to retrieve 6 pieces of tape located in various areas on left UE. Pt able to complete with CGA for seated balance, however, requiring mild-moderately increased time/effort for performance. Pt found distal pieces with greater ease and more difficulty with proximal pieces (initially attempting to solely utilize tactile senses and required cues to maintain visual attention in left visualfield and on left UE). Assessment & Plan: Pt is demonstrating fair progress in occupational therapy goals this date, primarily in static seated balance, right UE ROM/strength, speech, and alertness. However, pt's barriers to discharge and overall inhibitors in ADL/IADL/functional transfer performance/independence include pt's deficits in endurance/activity tolerance, functional transfers/mobility, dynamic seated balance, standing balance, left UE ROM/strength, UE coordination/precision, vision, and cognition. Pt would benefit from continued acute occupational therapy services prior to discharge to address noted deficits and progress t owards achieving increased independence in occupational performance. Patient Instruction/Education this session: Pt educated on the importance of EOB/OOB activities in improving independence in self-care/functional activity participation and on the role of OT/OT plan of care. Plan for next session: Therapist to address further standing balance/tolerance, left UE neuro re-education, and one-handed ADL performance strategies. Acute OT Goals Plan of Care by Yasemin Cardenas OT at 08/16/2022 11:33 AM Version 1 of 1 Problem: OT - Dressing Goal: Upper Body Dressing Description: Pt will complete UE dressing task Edge of bed with standby assistance for improved ability to complete self-care activities. Outcome: Ongoing Problem: OT - ADLs Goal: Grooming Description: Pt will complete grooming Edge of bed with standby assistance for improved ability to safely complete ADLs. Outcome: Ongoing Problem: OT - Visual Scanning Goal: Visual Tracking Description: Pt will track past midline to left 6 completions during session with 20 % cues, to attend to familiar object/person for ADL participation. Outcome: Ongoing Problem: OT - Cognition Goal: Cognition simple ADL Description: Pt will demonstrate improved cognition, completing simple ADL task for 10 minutes with2 cues required to maintain attention, for improved safety and success at discharge destination. Outcome: Ongoing Problem: OT - Balance Goal: Balance - Standing Description: Pt will perform 4-5 minutes of functional ADL task in standing with moderate assistance and balance level of moderate assist to promote safety and improved balance required for self-careactivities. Outcome: Ongoing Problem: OT - Transfers Goal: Transfers Sit -> Stand Description: Pt will demonstrate good safety awareness during sit to/from stand functional transferwith moderate assistance and least restrictive device for improved safety and success at recommended discharge destination. Outcome: Ongoing Problem: OT - Strength/ROM Goal: Neuro Re-education Description: Pt will participate in neuro re-ed of (LUE) to improve strength by 2 muscle grades in each group, for improved use in ADLs. Outcome: Ongoing OT treatment consisted of ADL retraining, balance training, bed mobility training, energy conservation/endurance training, neuromuscular re-education, transfer training and vision training to work and progress towards above goal(s). Treating Therapist: Yasemin Cardenas OT Additional Details: Co-evaluation/co-treatment performed?: Yes, simultaneous billable skilled care This co-treatment session performed between OT and PT was beneficial, necessary and provided distinct services in progressing this person's individual plan of care. Medical complexity with functionaldeficits that necessitate two skilled therapy disciplines working concurrently to optimize patient's progress towards each discipline's goals. This co-treatment was medically necessary due to patient's: Cognitive issues, Coordination issues, Postural control and Endurance. Patient benefits from simultaneous treatment from another therapy discipline to maximize progress towards above Occupational Therapy goals. I used facemask, protective eye shield, and gloves in today's patient interaction. Patient location at end of session: chair Alarms on at end of session: chair alarm and RN aware Needs in reach. Time In: 1101 Time Out: 1132 Total Visit Time: 31 minutes Total Treatment Time (skilled, billable minutes): 31 minutes Upon discontinuation of Acute Care Occupational Therapy Services or patient discharge from the hospital this note represents the current Occupational Therapy Discharge Summary. * Jenn Suazo, PT - 08/16/2022 11:32 AM EST Acute Physical Therapy Treatment PRIOR LEVEL AM-PAC Mobility Raw Score: 24 CURRENT AM-PAC Mobility Raw Score: 11 Based on the above AM-PAC score(s) and PT clinical judgment, patient is a good candidate for discharge to Inpatient Rehab Facility Barriers to discharge home: Patient needs assistance with functional mobility Supporting Factors (would benefit from skilled therapy services): Patient status is anticipated to be appropriate to tolerate inpatient rehab therapy requirements at time of discharge from acute care, Impaired functional status, Decreased strength, Impaired balance, Impaired self-care abilities, Decreased endurance necessitating skilled therapy services, but able to tolerate therapy requirements for inpatient rehab, Impaired cognitive status, Fall risk Mobility equipment available at home: rollator, stair glide ADL equipment available at home: shower chair, grab bars Equipment needed for discharge: to be determined Current therapy frequency recommendation in acute: Therapy Frequency: 5 times a week Precautions and Weightbearing Status: Existing Precautions/Restrictions: fall Patient Safety Communication Prior to Visit: Nursing Lines/Tubes/Drains (Rehab Status): Telemetry Respiratory Status O2 Device: room air SUBJECTIVE: Pt in bed, agreeable and motivated for session. Pain: General Pain Documentation (Adult, OB, Peds) Presence of Pain: complains of pain/discomfort Pain Location: back (low) DVPRS (Defense and Veterans Pain Rating Scale) DVPRS: Rest: 8- severe pain DVPRS: Activity: 8- severe pain OBJECTIVE: Vitals/Response to Treatment: No adverse response. Cognition Overall Cognitive Status: Impaired Orientation Level: Oriented to person, Oriented to place, Oriented to time Cognition Comments: Processing delay & attention deficits. Cues for L attention throughout. Bed Mobility: Supine to Sit Mobility Jay Level: Supine->Sit: maximum assist (25% patient effort) Bed Features/Set-up: Supine->Sit: Head of bed elevated, Use of bed rail Skilled Rationale: Verbal cues, Tactile cues, Sequencing, Initiation and execution of task Skilled Intervention/Details: Supine->Sit: to the L side of bed, cues for safety Balance: Sitting Balance Static Sitting-Level of Assistance: Standby Dynamic Sitting-Level of Assistance: Contact guard Skilled Rationale: Verbal cues, Tactile cues Sitting Balance Skilled Intervention/Details: Extensive cueing for positiong at EOB, finding midline, reaching activities, hairbrushing, donning/doffing gown, all with facilitation to attend to L arm. Standing Balance Static Standing-Level of Assistance: Minimum assistance, Moderate assistance, 2- person assist Dynamic Standing-Level of Assistance: Minimum assistance, Moderate assistance, 2-person assist Standing-Balance Support: Gait belt, Bilateral hand held assist Skilled Rationale: Verbal cues, Tactile cues, Positioning, Full extension to upright positioning/posture Standing Balance Skilled Intervention/Details: Static stand with progression to weight shift with dec shift to the L noted Transfers: Sit to Stand Transfer Jay Level: Sit->Stand: moderate assist (50% patient effort) Physical Assist: Sit->Stand: 2 person assist (progression to 1 person at end of session) Assistive Device: Sit->Stand: gait belt, hand held assist Skilled Rationale: Verbal cues, Tactile cues, Positioning, Sequencing, Arm in arm, Facilitate anterior shift, Full extension to upright positioning/posture, Initiation and execution of task, Finding/maintaining midline positioning Skilled Intervention/Details: Sit->Stand: Pt with excessive lean back during standing, pt statesit makes her back feel better. Cues for improved alignment to advance activity. x5 from EOB x1 fromrecliner Stand to Sit Transfer Jay Level: Stand->Sit: moderate assist (50% patient effort) Physical Assist: Stand->Sit: 2 person assist (progressing to 1 person) Assistive Device: Stand->Sit: gait belt, hand held assist Skilled Rationale: Verbal cues, Tactile cues, Positioning, Sequencing, Facilitate anterior shift, Controlled descent for sitting Skilled Intervention/Details: Stand->Sit: x5 EOB, x1 recliner Bed-Chair Transfer Jay Level: Bed<->Chair: moderate assist (50% patient effort) Physical Assist: Bed<->Chair: 2 person assist Assistive Device: Bed<->Chair: gait belt Skilled Rationale: Verbal cues, Tactile cues, Positioning, Sequencing (faciliate lateral weight shift with contralateral foot clearance and placement to turn) ASSESSMENT & PLAN: Pt with excellent participation and reduction in overall assistance by end of session. Remains below baseline level of independent. Would continue to benefit from skilled PT to progress towards PLOF. Plan for next session: sit<>stands, pivots, gait with handrail R PT treatment consisted of Therapeutic Activity and Neuro Muscle Re-Education to work and progress towards goal(s). Treating Therapist: Jenn Suazo PT,DPT,NCS Additional Details: Co-evaluation/co-treatment performed?: Yes, simultaneous billable skilled care d/t complexity I used gloves and facemask in today's patient interaction. Patient location at end of session: chair, chair alarm and RN aware Needs in reach. Time In: 1101 Time Out: 1132 Total Visit Time: 31 minutes Total Treatment Time (skilled, billable minutes): 31 minutes Upon discontinuation of Acute Care Physical Therapy Services or patient discharge from the hospitalthis note represents the current Physical Therapy Discharge Summary. Acute PT Goals Plan of Care by Jenn Suazo PT at 08/16/2022 11:32 AM Version 1 of 1 Problem: PT - Balance/Coordination/Neuro Re-Education Goal: Sitting Dynamic/Static Balance Description: Pt will perform seated balance tasks for 8 minutes with standby assistance with trunk in midline position, UE support level to improve safety with seated tasks. Outcome: Progressing Toward Goal Problem: PT - Transfers Goal: Supine <-> Sit Description: Pt will perform bed mobility with flat bed & no rail with moderate assistance in order to improve functional mobility and safety. Outcome: Progressing Toward Goal Goal: Sit <-> Stand Description: Pt will perform sit to/from stand transfers with maximal assistance in order to improve functional mobility and safety. Outcome: Progressing Toward Goal Goal: Stand-Pivot Description: Pt will perform stand/pivot transfer to/from bed/chair/commode with maximal assistancein order to improve functional mobility and safety. Outcome: Progressing Toward Goal * Delaney Lincoln, CAR DELIVERER-SITE ADMINISTRATOR - 08/16/2022 9:31 AM EST NEUROVASCULAR STROKE SERVICE Daily Progress Note IDENTIFYING INFORMATION Camille Dawkins MR# [id number] 08/16/2022 HISTORY OF PRESENT ILLNESS Camille Dawkins is a 62 y.o. female with PMH significant for HTN, DM, Afib on Eliquis- last dose 08/08 whopresented to an OSH on 08/09 with left sided weakness. LKW 08/08 @ 1999. She was evaluated via telestroke. NIHSS 6. Not a candidate for iv thrombolysis due to Eliquis use. CTA showed R M2 occlusion. She was tras[facility]ferred to [facility] for further care. Upon arrival to [facility], NIHSS was 8. CTP shows 2ml core and 86 ml penumbra she was taken to OR and a TICI 2b revascularization was achieved. INTERVAL HISTORY 08/10: Brain MRI pending. Left arm weakness worse. updated at bedside. 08/11: MRI done, home lopressor resumed, diet advanced 08/14: Lasix held due to soft BP with SBP as low as 90, 250 ml bolus given with improvement. Neuro exam stable. AC initiated for afib 08/15: No events overnight. SBP 100s. Improved oral intake. 08/16: Home mirtazepine/trazadone added for anxiety/insomnia, speech re-eval today PHYSICAL EXAM Gen: awake, alert, NAD HEENT: normocephalic, no scalp lesions or tenderness Neck: trachea midline CV: +S1S2, irregular-afib on quality assurance monitor final, no m/r/g Lungs: clear, but diminished, bilaterally with equal chest rise. On RA. Abd: soft, nontender, nondistended, +BS x4 quadrants Extrem: Warm and well perfused, no edema Neuro: Oriented x3, RAM x 3, sensation decreased on left. Mild dysarthria CN II - All visual rankin intact CN II/III - PERRLA CN III/IV/ - EOMI CN V - Light touch to face intact in V1-3 CN VII - Left facial droop CN VIII - Hearing intact CN X - Cough present CN XI - Left shoulder weakness CN XII - midline protrusion of tongue MOTOR EXAMINATION: LUE without movement NIHSS 08/16/2022 Provider NIH Stroke Scale NIH Interval (Provider): daily NIH Level of Conciousness (Provider): 0 NIH LOC Questions (Provider): 0 NIH LOC Commands (Provider): 0 NIH Best Gaze (Provider): 0 NIH Visual (Provider): 0 NIH Facial Palsy (Provider): 1 NIH Left Arm Motor (Provider): 4 NIH Right Arm Motor (Provider): 0 NIH Left Leg Motor (Provider): 0 NIH Right Leg Motor (Provider): 0 NIH Limb Ataxia (Provider): 0 NIH Sensory (Provider): 1 NIH Best Language (Provider): 0 NIH Dysarthria (Provider): 1 NIH Extinction and Inattention (Provider): 0 NIH Total Score (Provider): 7 ASSESSMENT AND PLAN Neuro: Acute right MCA territory stroke s/p TICI 2b revascularization for right M2 occlusion: CTH: Acute ischemic infarct in the right insula. CTA brain/neck: Right M2 occlusion CTP: Large perfusion mismatch of 86 ml in right MCA territory MRI brain: Moderate motion artifact. Small acute right MCA territory infarct involving the right insula, basal ganglia, right colmenares radiata, right frontal and parietal lobes. No definite evidence of hemorrhagic transformation or significant mass effect. TTE: Pending LDL 31, A1c 7.5 -Stroke Etiology (TOAST Criteria): Cardio embolic from A fib -Antiplatelet not indicated in addition toAC -AC plan: Resumed home eliquis post stroke day 5 -Statin therapy: Lipitor 40 mg -Blood Pressure goal: SBP <160 Ischemic Stroke Core Measures -NIHSS on admission 8 -Patient has been started on Mechanical (SCD's) and Pharmacological (SQ heparin/Lovenox) DVT prophylaxis. -Antiplatelet therapy has been initiated, Aspirin 81 mg daily. -Anticoagulation therapy was indicated for this patient, d/t A fib -Patients LDL 31 and HgbA1c 7.5 were checked and the patient may discharged on Atorvastatin daily. -Dysphagia screening ordered, and will be completed prior to patient receiving oral intake. -Stroke education booklet has been ordered and will be provided by the RN that includes both written and verbal education to the patient and family regarding ischemic strokes. We have reviewed the patient's personal modifiable risk factors including: HTN, A fib, DM as well as education on reducing these risk factors -Patient is being assessed for Rehab by PT/OT/Speech and PM&R if indicated. Afib (POA) HTN (POA) CHF (POA) -home regimen: losartan 25 mg daily (held), metoprolol succinate 100mg XL daily, spironolactone 25 mg daily (held), lasix 20 mg daily (held), farxiga 10 mg daily (held) -Could not find OSH TTE to evaluate type of chronic heart failure -TTE pending -Daily weights and I & O's -08/12-metoprolol increased to 75 mg every 8 hours after receiving 3 doses of IVP metoprolol overnight, HR still not controlled, gave diltiazem bolus and plan to start gtt as needed for HR > 110 - change to metoprolol XL when pt's meds do not have to be crushed -AC plan: Resumed home eliquis post stroke day 5 (08/14/22) -Of note, patient's spouse reported patient was recently taken off eliquis for approximately 1 weekwhen diagnosed with h. Pylori due to GI bleed concerns. Eliquis was resumed prior to acute stroke presentation. Dysphagia: -soft and bite size, honey thick liquids -eating around 50% of meals -Speech re-eval -recommend MBS on 08/17 DM type II, (POA): -ACHS + carb control diet, SSI -home lantus and glimepiride held CKD stage IIIA, (POA): -Per OSH records -unknown baseline, 1.62 Cr on admission, today 1.49 -Avoid nephrotoxic agents/renally dose medications -trend chem Hx of h-pylori Hx of duodenitis/esophagitis, (POA): -H-pylori treatment started per [facility], end 08/11 (doxycyline monohydrate, metronidazole, and bismuthsubsalicylate) -Nexium 40 mg q 12 hours Normocytic Anemia (POA): -Hgb stable at 10.9 from 9.8 on admission -Trend JAMAAL (POA): -listed from OSH records -Pt states she has not had a sleep study and does not wear CPAP -Enroll in Sleep Smart trial Anxiety (POA) Depression (POA) Insomnia (POA) -Resume home Cymbalta, trazodone, mirtazepine Disposition: Camille Dawkins will be discharged when medically ready after work up completed. Referrals sent to SNF. Delaney Lincoln APRN-IVETTE 08/16/2022 9:31 AM VITAL SIGNS Temp: [97 F (36.1 C)-98 F (36.7 C)] 97 F (36.1 C) Pulse (Heart Rate): [92-108] 92 Resp Rate: [15-26] 22 BP: (112-132)/(65-83) 132/78 O2 Sat (%): [90 %-100 %] 92 % Oxygen Therapy: Oxygen Therapy O2 Sat (%): 92 % O2 Device: room air Intake/Output: Intake/Output Summary (Last 24 hours) at 08/16/2022 0931 Last data filed at 08/16/2022 0900 Gross per 24 hour Intake 1160 ml Output 425 ml Net 735 ml LABS/CULTURES Lab Results Component Value Date WBC 9.17 08/14/2022 HGB 10.8 (L) 08/14/2022 HCT 36.1 08/14/2022 PLATELET 217 08/14/2022 MCV 87.8 08/14/2022 Lab Results Component Value Date SODIUM 136 08/14/2022 POTASSIUM 4.2 08/14/2022 CHLORIDE 103 08/14/2022 CO2 24 08/14/2022 BUN 39 (H) 08/14/2022 CREATSERUM 1.49 (H) 08/14/2022 GLUCOSE 151 (H) 08/16/2022 Lab Results Component Value Date CHOLESTEROL 67 08/10/2022 TRIG 54 08/10/2022 HDL 25 (L) 08/10/2022 LDLCALC 31 08/10/2022 Lab Results Component Value Date HGBA1C 7.5 (H) 08/10/2022 Lab Results Component Value Date ALBUMIN 3.3 (L) 08/10/2022 , No results found for: CPK, TROP IMAGING/DIAGNOSTIC STUDIES XR CHEST PORTABLE Final Result IMPRESSION: Low lung volumes with bilateral basilar groundglass opacities. Pulmonary edema is a consideration in the appropriate clinical setting. BRAIN WITHOUT CONTRAST Final Result IMPRESSION: Moderate motion artifact. Small acute right MCA territory infarct involving the right insula, basal ganglia, right colmenares radiata, right frontal and parietal lobes. No definite evidence of hemorrhagic transformation or significant mass effect. ABDOMEN 1 VIEW Final Result IMPRESSION: Distal tip of the Dobbhoff tube in the proximal jejunum. HEAD WITHOUT CONTRAST Final Result IMPRESSION: The subtle area of low-attenuation in the right insula is unchanged. There is also additional subtle area of low-attenuation in the right frontal colmenares radiata corresponding to the perfusion abnormality from prior CTP. These are compatible with recent infarcts. No evidence of acute hemorrhage. HEAD WITHOUT CONTRAST Final Result IMPRESSION: The area of low-attenuation in the right insula was present on prior, likely due to small amount of contrast staining. No evidence of acute intracranial hemorrhage. CHEST PORTABLE Final Result IMPRESSION: Mild cardiomegaly. Linear atelectatic changes. CEREBRAL PERFUSION ANALYSIS Final Result IMPRESSION: Large perfusion mismatch in the right MCA territory, with mismatch volume of 86 cc. Small core infarct in the deep white matter, although this does not correspond to the evolving infarct noted on the noncontrast CT. STROKE HEAD-STROKE ALERT ONLY Final Result IMPRESSION: 1. 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 2. No acute intracranial hemorrhage. Findings were discussed with Mariposa Han NP at 7:52 AM on August 09, 2022. I personally viewed and interpreted these images and I have reviewed and approved this report. RO IMAGING FOR NEURO ENDOVASCULAR (Results Pending) ECHOCARDIOGRAM (Results Pending) MEDICATIONS apixaban 5 mg Oral Q12H atorvastatin 40 mg Oral QHS DULoxetine 30 mg Oral Daily esomeprazole 40 mg Oral Q12H [Held by provider] furOSEmide 20 mg Oral Daily insulin glargine injection 5 Units Subcutaneous Q24H insulin lispro Subcutaneous 4x daily w/meals, HS metoprolol 75 mg Oral Q8H mirtazapine 15 mg Oral QHS senna 8.6 mg Oral QAM traZODone 100 mg Oral QHS * Amy Car APRN-SITE ADMINISTRATOR - 08/15/2022 7:19 AM EST NEUROVASCULAR STROKE SERVICE Daily Progress Note IDENTIFYING INFORMATION Camille Dawkins MR# [id number] 08/15/2022 HISTORY OF PRESENT ILLNESS Camille Dawkins is a 62 y.o. female with PMH significant for HTN, DM, Afib on Eliquis- last dose 08/08 whopresented to an OSH on 08/09 with left sided weakness. LKW 08/08 @ 1999. She was evaluated via telestroke. NIHSS 6. Not a candidate for iv thrombolysis due to Eliquis use. CTA showed R M2 occlusion. She was trasnsferred to [facility] for further care. Upon arrival to [facility], NIHSS was 8. CTP shows 2ml core and 86 ml penumbra she was taken to OR and a TICI 2b revascularization was achieved. INTERVAL HISTORY 08/10: Brain MRI pending. Left arm weakness worse. updated at bedside. 08/11: MRI done, home lopressor resumed, diet advanced 08/14: Lasix held due to soft BP with SBP as low as 90, 250 ml bolus given with improvement. Neuro exam stable. AC initiated for afib 08/15: No events overnight. SBP 100s. Improved oral intake. PHYSICAL EXAM Gen: awake, alert, NAD HEENT: normocephalic, no scalp lesions or tenderness Neck: trachea midline CV: +S1S2, RRR, no m/r/g Lungs: wheezing, bilaterally with equal chest rise Abd: soft, nontender, nondistended, +BS x4 quadrants Extrem: Warm and well perfused, no edema Neuro: Oriented x3, RAM x 3, sensation decreased on left with neglect CN II - All visual rankin intact CN II/III - PERRLA CN III/IV/ - EOMI CN V - Light touch to face intact in V1-3 CN VII - Left facial droop CN VIII - Hearing intact CN X - Cough present CN XI - Left shoulder weakness CN XII - MOTOR EXAMINATION: LUE > LLE weakness NIHSS 08/15/2022 Provider NIH Stroke Scale NIH Interval (Provider): daily NIH Level of Conciousness (Provider): 0 NIH LOC Questions (Provider): 0 NIH LOC Commands (Provider): 0 NIH Best Gaze (Provider): 0 NIH Visual (Provider): 0 NIH Facial Palsy (Provider): 2 NIH Left Arm Motor (Provider): 4 NIH Right Arm Motor (Provider): 0 NIH Left Leg Motor (Provider): 0 NIH Right Leg Motor (Provider): 0 NIH Limb Ataxia (Provider): 0 NIH Sensory (Provider): 0 NIH Best Language (Provider): 0 NIH Dysarthria (Provider): 1 NIH Extinction and Inattention (Provider): 0 NIH Total Score (Provider): 7 ASSESSMENT AND PLAN Neuro: Acute right MCA territory stroke s/p TICI 2b revascularization for right M2 occlusion: CTH: Acute ischemic infarct in the right insula. CTA brain/neck: Right M2 occlusion CTP: Large perfusion mismatch of 86 ml in right MCA territory MRI brain: Moderate motion artifact. Small acute right MCA territory infarct involving the right insula, basal ganglia, right colmenares radiata, right frontal and parietal lobes. No definite evidence of hemorrhagic transformation or significant mass effect. TTE: Pending LDL 31, A1c 7.5 -Stroke Etiology (TOAST Criteria): Cardio embolic from A fib -Antiplatelet not indicated in addition toAC -AC plan: Resumed home eliquis post stroke day 5 -Statin therapy: Lipitor 40 mg -Blood Pressure goal: SBP <160 Ischemic Stroke Core Measures -NIHSS on admission 8 -Patient has been started on Mechanical (SCD's) and Pharmacological (SQ heparin/Lovenox) DVT prophylaxis. -Antiplatelet therapy has been initiated, Aspirin 81 mg daily. -Anticoagulation therapy was indicated for this patient, d/t A fib -Patients LDL 31 and HgbA1c 7.5 were checked and the patient may discharged on Atorvastatin daily. -Dysphagia screening ordered, and will be completed prior to patient receiving oral intake. -Stroke education booklet has been ordered and will be provided by the RN that includes both written and verbal education to the patient and family regarding ischemic strokes. We have reviewed the patient's personal modifiable risk factors including: HTN, A fib, DM as well as education on reducing these risk factors -Patient is being assessed for Rehab by PT/OT/Speech and PM&R if indicated. Afib, HTN (POA) -home regimen: losartan 25mg (held), metoprolol succinate 100mg XL, spironolactone 25mg (held), lasix 20mg -08/12-metoprolol increased to 75 mg every 8 hours after receiving 3 doses of IVP metoprolol overnight, HR still not controlled, gave diltiazem bolus and plan to start gtt as needed for HR > 110 - change to metoprolol XL when pt's meds do not have to be crushed -AC plan: Resumed home eliquis post stroke day 5 (08/14/22) -Of note, patient's spouse reported patient was recently taken off eliquis for approximately 1 weekwhen diagnosed with h. Pylori due to GI bleed concerns. Eliquis was resumed prior to acute stroke presentation. Dysphagia: -soft and bite size, honey thick liquids -eating 25-75% of meals DM type II: -ACHS + carb control diet, SSI -home lantus and glimepiride held DIVINA vs CKD -unknown baseline, 1.62 Cr on admission, 1.49 today -trend chem Hx of h-pylori -H-pylori treatment started per [facility], end 08/11 (doxycyline monohydrate, metronidazole, and bismuthsubsalicylate) Disposition: Camille Dawkins will be discharged when medically ready after work up completed. Referrals sent to SNF. Amy Car APRN-SITE ADMINISTRATOR 08/15/2022 7:19 AM VITAL SIGNS Temp: [96.1 F (35.6 C)-98.1 F (36.7 C)] 96.1 F (35.6 C) Pulse (Heart Rate): [94-118] 106 Resp Rate: [15-25] 24 BP: (101-121)/(69-88) 107/69 O2 Sat (%): [92 %-100 %] 92 % Oxygen Therapy: Oxygen Therapy O2 Sat (%): 92 % O2 Device: nasal cannula Flow (L/min): 2 Intake/Output: Intake/Output Summary (Last 24 hours) at 08/15/2022 0719 Last data filed at 08/15/2022 0351 Gross per 24 hour Intake 956 ml Output 150 ml Net 806 ml LABS/CULTURES Lab Results Component Value Date WBC 9.17 08/14/2022 HGB 10.8 (L) 08/14/2022 HCT 36.1 08/14/2022 PLATELET 217 08/14/2022 MCV 87.8 08/14/2022 Lab Results Component Value Date SODIUM 136 08/14/2022 POTASSIUM 4.2 08/14/2022 CHLORIDE 103 08/14/2022 CO2 24 08/14/2022 BUN 39 (H) 08/14/2022 CREATSERUM 1.49 (H) 08/14/2022 GLUCOSE 148 (H) 08/14/2022 Lab Results Component Value Date CHOLESTEROL 67 08/10/2022 TRIG 54 08/10/2022 HDL 25 (L) 08/10/2022 LDLCALC 31 08/10/2022 Lab Results Component Value Date HGBA1C 7.5 (H) 08/10/2022 Lab Results Component Value Date ALBUMIN 3.3 (L) 08/10/2022 , No results found for: CPK, TROP IMAGING/DIAGNOSTIC STUDIES XR CHEST PORTABLE Final Result IMPRESSION: Low lung volumes with bilateral basilar groundglass opacities. Pulmonary edema is a consideration in the appropriate clinical setting. BRAIN WITHOUT CONTRAST Final Result IMPRESSION: Moderate motion artifact. Small acute right MCA territory infarct involving the right insula, basal ganglia, right colmenares radiata, right frontal and parietal lobes. No definite evidence of hemorrhagic transformation or significant mass effect. ABDOMEN 1 VIEW Final Result IMPRESSION: Distal tip of the Dobbhoff tube in the proximal jejunum. HEAD WITHOUT CONTRAST Final Result IMPRESSION: The subtle area of low-attenuation in the right insula is unchanged. There is also additional subtle area of low-attenuation in the right frontal colmenares radiata corresponding to the perfusion abnormality from prior CTP. These are compatible with recent infarcts. No evidence of acute hemorrhage. HEAD WITHOUT CONTRAST Final Result IMPRESSION: The area of low-attenuation in the right insula was present on prior, likely due to small amount of contrast staining. No evidence of acute intracranial hemorrhage. CHEST PORTABLE Final Result IMPRESSION: Mild cardiomegaly. Linear atelectatic changes. CEREBRAL PERFUSION ANALYSIS Final Result IMPRESSION: Large perfusion mismatch in the right MCA territory, with mismatch volume of 86 cc. Small core infarct in the deep white matter, although this does not correspond to the evolving infarct noted on the noncontrast CT. STROKE HEAD-STROKE ALERT ONLY Final Result IMPRESSION: 1. 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 2. No acute intracranial hemorrhage. Findings were discussed with Mariposa Han NP at 7:52 AM on August 09, 2022. I personally viewed and interpreted these images and I have reviewed and approved this report. RO IMAGING FOR NEURO ENDOVASCULAR (Results Pending) ECHOCARDIOGRAM (Results Pending) MEDICATIONS apixaban 5 mg Oral Q12H atorvastatin 40 mg Oral QHS DULoxetine 30 mg Oral Daily esomeprazole 40 mg Oral Q12H [Held by provider] furOSEmide 20 mg Oral Daily insulin glargine injection 5 Units Subcutaneous Q24H insulin lispro Subcutaneous 4x daily w/meals, HS metoprolol 75 mg Oral Q8H senna 8.6 mg Oral QAM * ZENIA Cartagena - 08/14/2022 7:10 AM EST NEUROVASCULAR STROKE SERVICE Daily Progress Note IDENTIFYING INFORMATION Camille Dawkins MR# [id number] 08/14/2022 HISTORY OF PRESENT ILLNESS Camille Dawkins is a 62 y.o. female with PMH significant for HTN, DM, Afib on Eliquis- last dose 08/08 whopresented to an OSH on 08/09 with left sided weakness. LKW 08/08 @ 1999. She was evaluated via telestroke. NIHSS 6. Not a candidate for iv thrombolysis due to Eliquis use. CTA showed R M2 occlusion. She was tras[facility]red [facility] further care. Upon arrival to [facility], NIHSS was 8. CTP shows 2ml core and 86 ml penumbra she was taken to OR and a TICI 2b revascularization was achieved. INTERVAL HISTORY 08/10: Brain MRI pending. Left arm weakness worse. updated at bedside. 08/11: MRI done, home lopressor resumed, diet advanced 08/14: Lasix held due to soft BP with SBP as low as 90, 250 ml bolus given with improvement. Neuro exam stable. AC initiated for afib PHYSICAL EXAM Gen: awake, alert, NAD HEENT: normocephalic, no scalp lesions or tenderness Neck: trachea midline CV: +S1S2, RRR, no m/r/g Lungs: wheezing, bilaterally with equal chest rise Abd: soft, nontender, nondistended, +BS x4 quadrants Extrem: Warm and well perfused, no edema Neuro: Oriented x3, RAM x 3, sensation decreased on left with neglect CN II - All visual rankin intact CN II/III - PERRLA CN III/IV/ - EOMI CN V - Light touch to face intact in V1-3 CN VII - Left facial droop CN VIII - Hearing intact CN X - Cough present CN XI - Left shoulder weakness CN XII - MOTOR EXAMINATION: LUE > LLE weakness NIHSS 08/14/2022 Provider NIH Stroke Scale NIH Interval (Provider): daily NIH Level of Conciousness (Provider): 0 NIH LOC Questions (Provider): 0 NIH LOC Commands (Provider): 0 NIH Best Gaze (Provider): 0 NIH Visual (Provider): 0 NIH Facial Palsy (Provider): 2 NIH Left Arm Motor (Provider): 4 NIH Right Arm Motor (Provider): 0 NIH Left Leg Motor (Provider): 0 NIH Right Leg Motor (Provider): 0 NIH Limb Ataxia (Provider): 0 NIH Sensory (Provider): 0 NIH Best Language (Provider): 0 NIH Dysarthria (Provider): 1 NIH Extinction and Inattention (Provider): 0 NIH Total Score (Provider): 7 ASSESSMENT AND PLAN Neuro: Acute right MCA territory stroke s/p TICI 2b revascularization for right M2 occlusion: CTH: Acute ischemic infarct in the right insula. CTA brain/neck: Right M2 occlusion CTP: Large perfusion mismatch of 86 ml in right MCA territory MRI brain: Moderate motion artifact. Small acute right MCA territory infarct involving the right insula, basal ganglia, right colmenares radiata, right frontal and parietal lobes. No definite evidence of hemorrhagic transformation or significant mass effect. TTE: Pending LDL 31, A1c 7.5 -Stroke Etiology (TOAST Criteria): Cardio embolic from A fib -Antiplatelet not indicated in addition toAC -AC plan: Resumed home eliquis post stroke day 5 -Statin therapy: Lipitor 40 mg -Blood Pressure goal: SBP <160 Ischemic Stroke Core Measures -NIHSS on admission 8 -Patient has been started on Mechanical (SCD's) and Pharmacological (SQ heparin/Lovenox) DVT prophylaxis. -Antiplatelet therapy has been initiated, Aspirin 81 mg daily. -Anticoagulation therapy was indicated for this patient, d/t A fib -Patients LDL 31 and HgbA1c 7.5 were checked and the patient may discharged on Atorvastatin daily. -Dysphagia screening ordered, and will be completed prior to patient receiving oral intake. -Stroke education booklet has been ordered and will be provided by the RN that includes both written and verbal education to the patient and family regarding ischemic strokes. We have reviewed the patient's personal modifiable risk factors including: HTN, A fib, DM as well as education on reducing these risk factors -Patient is being assessed for Rehab by PT/OT/Speech and PM&R if indicated. Afib, HTN (POA) -home regimen: losartan 25mg (held), metoprolol succinate 100mg XL, spironolactone 25mg (held), lasix 20mg -08/12-metoprolol increased to 75 mg every 8 hours after receiving 3 doses of IVP metoprolol overnight, HR still not controlled, gave diltiazem bolus and plan to start gtt as needed for HR > 110 -would like to change to metoprolol XL when pt's meds do not have to be crushed so that dose can beincreased -AC plan: Resumed home eliquis post stroke day 5 (08/14/22) -Of note, patient's spouse reported patient was recently taken off eliquis for approximately 1 weekwhen diagnosed with h. Pylori due to GI bleed concerns. Eliquis was resumed prior to acute stroke presentation. Dysphagia: -soft and bite size, honey thick liquids -eating 25-75% of meals DM type II: -ACHS + carb control diet, SSI -home lantus and glimepiride held DIVINA vs CKD -unknown baseline, 1.62 Cr on admission, 1.49 today -trend chem Hx of h-pylori -H-pylori treatment started per NCCU, end 08/11 (doxycyline monohydrate, metronidazole, and bismuthsubsalicylate) Disposition: Camille Dawkins will be discharged when medically ready after work up completed. Referrals sent to SNF. Amy Car APRN-SITE ADMINISTRATOR 08/14/2022 8:59 AM VITAL SIGNS Temp: [96.8 F (36 C)-98.2 F (36.8 C)] 96.8 F (36 C) Pulse (Heart Rate): [94-110] 98 Resp Rate: [18-24] 18 BP: (90-122)/(58-91) 113/71 O2 Sat (%): [93 %-100 %] 99 % Oxygen Therapy: Oxygen Therapy O2 Sat (%): 99 % O2 Device: nasal cannula Flow (L/min): 2 Intake/Output: Intake/Output Summary (Last 24 hours) at 08/14/2022 0859 Last data filed at 08/14/2022 0510 Gross per 24 hour Intake 1050.29 ml Output 270 ml Net 780.29 ml LABS/CULTURES Lab Results Component Value Date WBC 9.17 08/14/2022 HGB 10.8 (L) 08/14/2022 HCT 36.1 08/14/2022 PLATELET 217 08/14/2022 MCV 87.8 08/14/2022 Lab Results Component Value Date SODIUM 136 08/14/2022 POTASSIUM 4.2 08/14/2022 CHLORIDE 103 08/14/2022 CO2 24 08/14/2022 BUN 39 (H) 08/14/2022 CREATSERUM 1.49 (H) 08/14/2022 GLUCOSE 89 08/14/2022 Lab Results Component Value Date CHOLESTEROL 67 08/10/2022 TRIG 54 08/10/2022 HDL 25 (L) 08/10/2022 LDLCALC 31 08/10/2022 Lab Results Component Value Date HGBA1C 7.5 (H) 08/10/2022 Lab Results Component Value Date ALBUMIN 3.3 (L) 08/10/2022 , No results found for: CPK, TROP IMAGING/DIAGNOSTIC STUDIES XR CHEST PORTABLE Final Result IMPRESSION: Low lung volumes with bilateral basilar groundglass opacities. Pulmonary edema is a consideration in the appropriate clinical setting. BRAIN WITHOUT CONTRAST Final Result IMPRESSION: Moderate motion artifact. Small acute right MCA territory infarct involving the right insula, basal ganglia, right colmenares radiata, right frontal and parietal lobes. No definite evidence of hemorrhagic transformation or significant mass effect. ABDOMEN 1 VIEW Final Result IMPRESSION: Distal tip of the Dobbhoff tube in the proximal jejunum. HEAD WITHOUT CONTRAST Final Result IMPRESSION: The subtle area of low-attenuation in the right insula is unchanged. There is also additional subtle area of low-attenuation in the right frontal colmenares radiata corresponding to the perfusion abnormality from prior CTP. These are compatible with recent infarcts. No evidence of acute hemorrhage. HEAD WITHOUT CONTRAST Final Result IMPRESSION: The area of low-attenuation in the right insula was present on prior, likely due to small amount of contrast staining. No evidence of acute intracranial hemorrhage. CHEST PORTABLE Final Result IMPRESSION: Mild cardiomegaly. Linear atelectatic changes. CEREBRAL PERFUSION ANALYSIS Final Result IMPRESSION: Large perfusion mismatch in the right MCA territory, with mismatch volume of 86 cc. Small core infarct in the deep white matter, although this does not correspond to the evolving infarct noted on the noncontrast CT. STROKE HEAD-STROKE ALERT ONLY Final Result IMPRESSION: 1. 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 2. No acute intracranial hemorrhage. Findings were discussed with Mariposa Han NP at 7:52 AM on August 09, 2022. I personally viewed and interpreted these images and I have reviewed and approved this report. RO IMAGING FOR NEURO ENDOVASCULAR (Results Pending) ECHOCARDIOGRAM (Results Pending) MEDICATIONS aspirin 81 mg Oral QHS atorvastatin 40 mg Oral QHS DULoxetine 30 mg Oral Daily enoxaparin 40 mg Subcutaneous QHS esomeprazole 40 mg Oral Q12H [Held by provider] furOSEmide 20 mg Oral Daily insulin glargine injection 10 Units Subcutaneous Q24H insulin lispro Subcutaneous 4x daily w/meals, HS metoprolol 75 mg Oral Q8H senna 8.6 mg Oral QAM * ALDO Donnelly - 08/13/2022 3:33 PM EST Progression of Care Note Expected Discharge Date: Medical Milestones Remaining: None Assessment and Discharge Plan as of 08/13/2022 3:33 PM SNF vs progression to IPR Patient Choice for Post-Acute Providers Anticipated discharge disposition: Senior Living Facility Anticipated Services at Discharge: Physical Therapy, Occupational Therapy, Senior Living, Speech Therapy, Outpatient follow up Explanation of Barriers: SNF referral Open, Current recommendation may change to IPR. Readmission Risk Score Risk of Readmission: 4.3 Category Reference: High:16-100 Mod-High:10-16 Mod-Low: 5-10 Low: 0-5 ALTAF Donnelly LSW [facility] * Bettina Figueroa OT - 08/13/2022 12:34 PM EST Acute Occupational Therapy Treatment Prior to Admission AM-PAC Score: PRIOR LEVEL AM-PAC Activity Raw Score: 24 PRIOR LEVEL AM-PAC Mobility Raw Score: 24 Current AM-PAC score(s): CURRENT AM-PAC Activity Raw Score: 17 Based on the above AM-PAC score(s), and OT clinical judgment, discharge destination recommendation is: Senior Living Facility (with hopeful progression to IPR with improved pt activity tolerance) Barriers to discharge home: Lack of appropriate DME, Patient unable to navigate stairs to enter home, Patient needs assistance with functional mobility, Patient needs assistance with ADLs, Patient needs assistance with IADLs (see note below), Patient needs assistance with medication management, Patient needs assistance with self-care for medical condition (see note below), Cognitive impairments that impact safety (see note below), Unsafe home environment given patient's current status (see notebelow) Mobility equipment available at home: rollator, stair glide ADL equipment available at home: shower chair, grab bars Equipment recommendations for discharge: wheelchair, bedside commode, shower chair, bathing equipment, dressing equipment, toileting equipment Current therapy frequency recommendation(s) in acute: 5 times a week Precautions and Weightbearing Status: OT Existing Precautions/Restrictions: fall, cardiac, supplemental oxygen Telemetry Patient Safety Communication Prior to Visit: Nursing Subjective: Pt alert and agreeable to therapy. 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 Respiratory Status O2 Device: nasal cannula Flow (L/min): 2 Cognition Overall Cognitive Status: Impaired Arousal/Alertness: Delayed responses to stimuli Orientation Level: Oriented X4 Following Commands: Follows one step commands with increased time, Follows one step commands with repetition Safety Judgment: Decreased awareness of need for assistance Awareness of Errors: Assistance required to identify errors made Deficits: Decreased awareness of deficits Attention Span: Attends with cues to redirect Memory: Decreased short term memory Problem Solving: Assistance required to identify errors made, Assistance required to generate solutions Cognition Comments: Pt noted with increased alertness and participation in therapy session. ADL Assessment/Intervention: ADLs: Eating Assistance: Grooming Assistance: Contact guard assist Grooming Location: edge of bed Grooming Skilled Rationale (Verbal/Tactile/Visual/Demonstration): Technique of activity, Cues for increased safety, Facilitate positioning, Facilitate postural control Grooming Intervention/Details: Pt brushed hair while seated EOB with cues for positioning and completion of task. Bathing Assistance: UE Dressing Assistance: LE Dressing Assistance: Toilet Assistance: Extremity Assessments: See OT Evaluation flowsheet for Extremity Measurement updates. Balance: Sitting Balance Static Sitting-Level of Assistance: Contact guard Dynamic Sitting-Level of Assistance: Minimum assistance (CGA to min) Sitting Balance Skilled Intervention/Details: Pt sat EOB while completing grooming task and in preparation for functional transfer. Standing Balance Static Standing-Level of Assistance: Minimum assistance, 2-person assist Dynamic Standing-Level of Assistance: Moderate assistance, 2-person assist Standing Balance Skilled Intervention/Details: Cues provided for safety and full extension of neck to increase independence. Skin and Edema: Mobility Assessment/Intervention: Supine to Sit Mobility Jay Level: Supine->Sit: maximum assist (25% patient effort) Bed Features/Set-up: Supine->Sit: Head of bed elevated, Use of bed rail Skilled Rationale: Positioning, Sequencing, Hand placement, Verbal cues, Tactile cues, Cues for increased safety Skilled Intervention/Details: Supine->Sit: Facilitated log roll with cues for hand placement andsequencing. Pt required assistance for bilat LEs and trunk management but initiated moving bilat LEs to edge of bed and rolling onto side. Transfer Assessment/Intervention: Sit to Stand Transfer Jay Level: Sit->Stand: moderate assist (50% patient effort) Physical Assist: Sit->Stand: 2 person assist Assistive Device: Sit->Stand: gait belt (bilat arm in arm) Skilled Rationale: Positioning, Sequencing, Hand placement, Verbal cues, Tactile cues, Arm in arm, Patellar block, Full extension to upright positioning/posture, Cues for increased safety Skilled Intervention/Details: Sit->Stand: Pt stood from EOB and recliner with cues for hand placement on therapist elbows and positioning in order to increase independence. Stand to Sit Transfer Jay Level: Stand->Sit: moderate assist (50% patient effort) Physical Assist: Stand->Sit: 2 person assist Assistive Device: Stand->Sit: gait belt (bilat arm in arm) Skilled Rationale: Cues for increased safety, Arm in arm, Verbal cues, Tactile cues, Hand placement, Visual cues, Positioning, Sequencing Skilled Intervention/Details: Stand->Sit: Facilitated controlled descent with cues for patient to reach back toward transfer surface, Functional Mobility: Functional Mobility Jay Level: Functional Mobility/Gait: moderate assist (50% patient effort) Physical Assist: Functional Mobility/Gait: 2 person assist Assistive Device: Functional Mobility/Gait: gait belt, hand held assist Functional Mobility Distance: [facility] Functional Mobility Skilled Rationale: Cues for increased safety, Energy conservation, Hand placement, Visual scanning and environmental awareness Skilled Intervention/Details - Functional Mobility/Gait: Cues for visual scanning and safety provided. Outcome Score(s): CURRENT [facility] Daily Activity Inpatient Short Form Putting on/Taking Off Lower Body Clothin - A Lot of Assistance Bathin - A Lot of Assistance Toiletin - A Lot of Assistance Putting on/Taking Off Upper Body Clothin - A Little Assistance Groomin - No Assistance Eatin - No Assistance CURRENT [facility] Activity Raw Score: 17 CURRENT [facility] Activity Functional Limitation/Modifier: 50.11% Currently Impaired in Daily Activity- CK Interventions: Assessment & Plan: Pt is showing good progress as demonstrated by increased activity tolerance and balance. Improvements have allowed for progress in OT goals such as functional transfers. Current impairments and limitations include decreased LUE strength, endurance, balance, and activity tolerance.. Pt shows continued need of OT services in acute setting to further progress toward best discharge disposition. Patient Instruction/Education this session: Patient Instruction: OT role, plan of care, importance of mobility Plan for next session: EOB ADLs and toilet transfer Acute OT Goals Plan of Care by Bettina Figueroa OT at 08/13/2022 12:34 PM Version 1 of 1 Problem: OT - ADLs Goal: Grooming Description: Pt will complete grooming Edge of bed with standby assistance for improved ability to safely complete ADLs. Outcome: Progressing Toward Goal Problem: OT - Visual Scanning Goal: Visual Tracking Description: Pt will track past midline to left 6 completions during session with 20 % cues, to attend to familiar object/person for ADL participation. Outcome: Progressing Toward Goal Problem: OT - Cognition Goal: Cognition simple ADL Description: Pt will demonstrate improved cognition, completing simple ADL task for 10 minutes with2 cues required to maintain attention, for improved safety and success at discharge destination. Outcome: Progressing Toward Goal Problem: OT - Balance Goal: Balance - Standing Description: Pt will perform 4-5 minutes of functional ADL task in standing with moderate assistance and balance level of moderate assist to promote safety and improved balance required for self-careactivities. Outcome: Progressing Toward Goal Problem: OT - Transfers Goal: Transfers Sit -> Stand Description: Pt will demonstrate good safety awareness during sit to/from stand functional transferwith moderate assistance and least restrictive device for improved safety and success at recommended discharge destination. Outcome: Progressing Toward Goal Problem: OT - Strength/ROM Goal: Neuro Re-education Description: Pt will participate in neuro re-ed of (LUE) to improve strength by 2 muscle grades in each group, for improved use in ADLs. Outcome: Progressing Toward Goal OT treatment consisted of ADL retraining to work and progress towards above goal(s). Treating Therapist: Bettina Figueroa OT Additional Details: Co-evaluation/co-treatment performed?: Yes, simultaneous billable skilled care This co-treatment session performed between OT and PT was beneficial, necessary and provided distinct services in progressing this person's individual plan of care. Medical complexity with functionaldeficits that necessitate two skilled therapy disciplines working concurrently to optimize patient's progress towards each discipline's goals. This co-treatment was medically necessary due to patient's: Coordination issues. Patient benefits from simultaneous treatment from another therapy discipline to maximize progress towards functional mobility Occupational Therapy goals. I used facemask, protective eye shield, and gloves in today's patient interaction. Patient location at end of session: chair Alarms on at end of session: chair alarm and RN aware Needs in reach. Time In: 1206 Time Out: 1234 Total Visit Time: 28 minutes Total Treatment Time (skilled, billable minutes): 28 minutes Upon discontinuation of Acute Care Occupational Therapy Services or patient discharge from the hospital this note represents the current Occupational Therapy Discharge Summary. * Adrian Perez, PT - 08/13/2022 12:30 PM EST Acute Physical Therapy Treatment Prior to Admission [facility] score(s): PRIOR LEVEL AM-PAC Mobility Raw Score: 24 PRIOR LEVEL AM-PAC Activity Raw Score: 24 Current AM-PAC score(s): CURRENT AM-PAC Mobility Raw Score: 11 Based on the above AM-PAC score(s) and PT clinical judgment, patient is a good candidate for discharge to Inpatient Rehab Facility Barriers to discharge home: Patient needs assistance with functional mobility Supporting Factors (would benefit from skilled therapy services): Patient status is anticipated to be appropriate to tolerate inpatient rehab therapy requirements at time of discharge from acute care, Impaired functional status, Decreased strength, Impaired balance, Impaired self-care abilities, Decreased endurance necessitating skilled therapy services, but able to tolerate therapy requirements for inpatient rehab, Impaired cognitive status, Fall risk Mobility equipment available at home: rollator, stair glide ADL equipment available at home: shower chair, grab bars Equipment needed for discharge: to be determined Current therapy frequency recommendation in acute: Therapy Frequency: 5 times a week Precautions and Weightbearing Status: Telemetry Patient Safety Communication Prior to Visit: Nursing Subjective: Patient reports it is a stressful time at home Pain: General Pain Documentation (Adult, OB, Peds) Presence of Pain: denies pain/discomfort Pain Location: back DVPRS (Defense and Veterans Pain Rating Scale) DVPRS: Rest: 0- no pain DVPRS: Activity: 0- no pain Objective/Observation: Vitals/Vitals Responses to Treatment: HR in and out of afib 95 to 125 HR, SpO2 stable on room air Respiratory Status O2 Device: nasal cannula Flow (L/min): 2 Cognition Overall Cognitive Status: Impaired Arousal/Alertness: Delayed responses to stimuli Orientation Level: Oriented X4 Following Commands: Follows one step commands with increased time Safety Judgment: Decreased awareness of need for safety Awareness of Errors: Decreased awareness of errors Deficits: Decreased awareness of deficits Attention Span: Attends with cues to redirect Extremity Assessments: See PT Evaluation flowsheet for Extremity Measurement updates. Skin and Edema: Balance: Sitting Balance Static Sitting-Level of Assistance: Contact guard Dynamic Sitting-Level of Assistance: Minimum assistance Skilled Rationale: Verbal cues Sitting Balance Skilled Intervention/Details: VC for positioning and weight shifting for scooting. Poor control of trunk needing min A to prevent fall Standing Balance Static Standing-Level of Assistance: Minimum assistance, 2-person assist Dynamic Standing-Level of Assistance: Moderate assistance, 2-person assist Standing-Balance Support: Gait belt, Bilateral hand held assist Skilled Rationale: Positioning, Sequencing, Hand placement, Verbal cues, Upright gaze/neck extension, Technique of activity Standing Balance Skilled Intervention/Details: VC for full extension, Ue support. Pt able to achieve full extension, min to maintain Mobility Assessment/Intervention: Supine to Sit Mobility Jay Level: Supine->Sit: maximum assist (25% patient effort) Physical Assist: Supine->Sit: 2 person assist Bed Features/Set-up: Supine->Sit: Head of bed elevated, Use of bed rail Skilled Rationale: Positioning, Hand placement, Verbal cues, Technique of activity Skilled Intervention/Details: Supine->Sit: facilitating log roll with VC, due to L UE weakness needing heavy assist Transfer Assessment/Intervention: Sit to Stand Transfer Jay Level: Sit->Stand: moderate assist (50% patient effort) Physical Assist: Sit->Stand: 2 person assist Assistive Device: Sit->Stand: gait belt, hand held assist Skilled Rationale: Positioning, Sequencing, Hand placement, Verbal cues, Facilitate anterior shift,Technique of activity Skilled Intervention/Details: Sit->Stand: VC for sequencing and use of moemtnum to improve weight shift. patient complete x2 STS in session. Increased time for hip extension Bed-Chair Transfer Jay Level: Bed<->Chair: moderate assist (50% patient effort) Physical Assist: Bed<->Chair: 2 person assist Assistive Device: Bed<->Chair: gait belt Skilled Rationale: Positioning, Sequencing, Hand placement, Verbal cues, Finding/maintaining midline positioning, Controlled descent for sitting, Full extension to upright positioning/posture, Technique of activity Skilled Intervention/Details: Bed<->Chair: improves with cues for weight shifting to allow for steps. paitent able to improve with clear floor needed for steps Gait/Functional Mobility Assessment/Intervention: Gait Assessment Jay Level: Gait: moderate assist (50% patient effort) Physical Assist: Gait: 2 person assist Assistive Device: Gait: gait belt Ambulation Distance (Feet): 50 Gait Deviations Identified: decreased fátima, decreased gait speed, decreased heel strike, decreased step length, decreased stride length, decreased weight shifting Gait Skilled Rationale: verbal, upright posture, increase step length Skilled Intervention/Details - Gait: VC for increased L step length, L LE ER, unable to improve with cues in swing. increased postural sway due to LE and trunk weakness Outcome Score(s): CURRENT [facility] Basic Mobility Inpatient Short Form Turning over in bed: 2 - A Lot of Assistance Sitting/standing from chair: 2 - A Lot of Assistance Moving from lying on back to sittin - A Lot of Assistance Moving to and from bed to chair: 2 - A Lot of Assistance Walk in hospital room: 2 - A Lot of Assistance Climbing 3-5 steps with a railin - Total Assistance CURRENT [facility] Mobility Raw Score: 11 CURRENT [facility] Mobility Functional Limitation/Modifier: 72.57% Currently Impaired in Basic Mobility- CL Assessment & Plan: Progressing well towards POC seen with improvement mod A x2 for transfers and gait. Continued L UE/LE weakness that will benefit from further functional mobility training Patient Instruction/Education this session: gait mechanics Plan for next session: Progress with L LE NMR to improve standing balance Acute PT Goals Plan of Care by Adrian Perez PT at 08/13/2022 12:30 PM Version 1 of 1 Problem: PT - Balance/Coordination/Neuro Re-Education Goal: Sitting Dynamic/Static Balance Description: Pt will perform seated balance tasks for 8 minutes with standby assistance with trunk in midline position, UE support level to improve safety with seated tasks. 08/13/2022 1501 by Adrian Perez PT Outcome: Progressing Toward Goal 08/13/2022 1500 by Adrian Perez PT Outcome: Progressing Toward Goal Problem: PT - Transfers Goal: Supine <-> Sit Description: Pt will perform bed mobility with flat bed & no rail with moderate assistance in order to improve functional mobility and safety. 08/13/2022 1501 by Adrian Perez PT Outcome: Progressing Toward Goal 08/13/2022 1500 by Adrian Perez PT Outcome: Progressing Toward Goal Goal: Sit <-> Stand Description: Pt will perform sit to/from stand transfers with maximal assistance in order to improve functional mobility and safety. 08/13/2022 1501 by Adrian Perez PT Outcome: Progressing Toward Goal 08/13/2022 1500 by Adrian Perez PT Outcome: Progressing Toward Goal Goal: Stand-Pivot Description: Pt will perform stand/pivot transfer to/from bed/chair/commode with maximal assistancein order to improve functional mobility and safety. 08/13/2022 1501 by Adrian Perez PT Outcome: Progressing Toward Goal 08/13/2022 1500 by Adrian Perez PT Outcome: Progressing Toward Goal Problem: PT - Mobility Goal: Ambulation Description: Pt will ambulate 150 feet with out an assistive device with minimal assistance to improve ability to navigate home environment. Outcome: Progressing Toward Goal PT treatment consisted of Therapeutic Activity and Gait/Stair Training to work and progress towardsabove goal(s). Treating Therapist: Adrian Perez PT Additional Details: Co-evaluation/co-treatment performed?: Yes, simultaneous billable skilled care This co-treatment session performed between PT and OT was beneficial, necessary and provided distinct services in progressing this person's individual plan of care. Medical complexity with functionaldeficits that necessitate two skilled therapy disciplines working concurrently to optimize patient's progress towards each discipline's goals. This co-treatment was medically necessary due to patient's: Postural control. Patient benefits from simultaneous treatment from another therapy discipline to maximize progress towards functional independence Physical Therapy goals. I used facemask, protective eye shield, and gloves in today's patient interaction. Patient location at end of session: chair Alarms on at end of session: chair alarm Needs in reach. Time In: 1204 Time Out: 1234 Total Visit Time: 30 minutes Total Treatment Time (skilled, billable minutes): 30 minutes Upon discontinuation of Acute Care Physical Therapy Services or patient discharge from the hospitalthis note represents the current Physical Therapy Discharge Summary. * Ana Miramontes RD - 08/13/2022 10:17 AM EST NUTRITION FOLLOW UP Nutrition Recommendations and Plan of Care: 1. Diet as appropriate per TRENCHING MACHINE OPERATOR evaluation: Soft and Bite Sized, Honey-Thick Liquids - patient requested salt/pepper and Mrs Dash seasonings to be sent with meal trays 2. Oral nutritional supplement: thickened chocolate Glucerna with breakfast and dinner trays per patient preference 3. Monitor appetite/PO intakes, weight, GI function, skin integrity, lab values. 4. Nutrition to follow Camille Dawkins is a 62 y.o. female with h/o cardiomyopathy, HLD, HTN, migraine, obesity, DMT2, COVID 07/2022, and afib who presented to OS with left facial weakness, left arm and leg weakness that began when she awoke at 0230 am. Her imagining from the OSH revealed CTA occlusion of proximal M2 branch of right MCA. Patient was transferred to [facility] for further treatment. Patient went to OR with neurosurgery for thrombectomy TICI 2b and admitted to [facility] for close neurological monitoring. Nutrition Assessment: Spoke with patient this morning. She said the hospital food is not the best and feels she would be eater better if she had better food options. She requested salt/pepper/Mrs Miguel seasonings on her meal trays. She requested chocolate Glucerna with breakfast and dinner trays. She told me she had lostsome weight while hospitalized in June. Believes she lost 28 lbs in June. Said she has been around 200 lbs for the past 10 years. Current weights do not reflect any significant weight loss. Physical exam negative for any significant muscle or fat loss. Will continue to monitor. TRENCHING MACHINE OPERATOR eval/recs today 08/13: dysphagia- soft and bite sized (IDDSI 6), liquid- moderately thick (IDDSI3)/honey Nutrition History: Per RD assessment on 08/10 Spoke with pt's to obtain nutrition history. states shewas eating well [employer] and denies issues chewing/swallowing. NKFA. Diet Order Current Diet Orders Procedures DIET SOFT AND BITE SIZED (IDDSI 6) Liquid Moderately Thick (IDDSI 3) / Honey Standing Status: Standing Number of Occurrences: 1 Order Specific Question: Determine a Liquid Consistency: Answer: Liquid Moderately Thick (IDDSI 3) / Honey Ht/Wt Eval: Ht: 5' 4/162.6 cm Current wt: 203 lbs Admit wt: 206 lbs BMI: 34.84 kg/(m^2) IBW: 120 lbs (54.5 kg) UBW per patient: 208-210 lbs Weight history: Pt states she lost 28 lbs in 1 month (June) d/t prolonged and frequent hospitalizations. 08/09/22: 206 lbs 08/10/22: 195 lbs 08/10/22: 201 lbs 08/12/22: 203 lbs Meds reviewed: aspirin 81 mg Oral QHS atorvastatin 40 mg Oral QHS DULoxetine 30 mg Oral Daily enoxaparin 40 mg Subcutaneous QHS esomeprazole 40 mg Oral Q12H furOSEmide 20 mg Oral Daily insulin glargine injection 10 Units Subcutaneous Q24H insulin lispro Subcutaneous 4x daily w/meals, HS metoprolol 75 mg Oral Q8H senna 8.6 mg Oral QAM Labs reviewed: BUN 31 (H), Cr 1.35 (H), GFR 45 (L) Phos 6.0 (H) --- hyperphosphatemia Glucose 139-181 mg/dL (H) POC blood sugar 146-225 mg/dL (H) HgbA1c 7.5 (08/10/22) GI: last BM 08/12 (formed/soft) Skin: Luis Score: 13 Wound sheath site right femoral Wound left posterior arm Edema: none Malnutrition Diagnosis: Indications of Malnutrition: No malnutrition [Based on the AND/ASPEN Malnutrition Criteria 2012] Nutrition Focused Physical Exam: no muscle or fat loss Ana Mulligan RDN,LD, MEDICAL CENTER MANAGER Page: [phone] Phone: [phone] Please refer to Dietitian Drawbridge Operator in [email or web address] for daily RD coverage. * Kamilla Hernandez, BEN - 08/13/2022 9:30 AM EST Acute Care Speech Language Pathology Treatment Diet Recommendations: Recommended Method of Nutrition: PO Recommended Diet Grade: dysphagia- soft and bite sized (IDDSI 6) Recommended Liquid Consistency: liquid- moderately thick (IDDSI 3)/honey Medications: with food Swallow Strategies: (bolus placement on right, check for pocketing on left, oral care after meals) Type of Cues/Supervision: intermittent supervision (please assist patient with setting up tray, butpatient can self feed with no difficulty) Assistance: family, nurse/aide (for tray set up) Best mode of Communication: spoken language (regular speech) Discharge Recommendations: Based on the below outcome measures/assessment score(s), FOIS 5, and SLPclinical judgment, discharge destination recommendation is: Inpatient Rehab Facility Barriers to discharge home: Cognitive impairments that impact safety and independence Supporting factors for discharge setting: Impaired swallow function limiting nutritional status andsafety with oral intake, Impaired cognitive skills limiting independence Acute TRENCHING MACHINE OPERATOR Outcomes Tracking Communicate basic wants and needs?: yes Demo insight/appreciation of deficits?: yes Appreciate deficits - Details: improving Complete basic problem solving?: yes Basic problem solving - Details: for very basic Current therapy frequency recommendation in acute: Speech/Lang/Cog Therapy Frequency: 3 times a week Swallow Therapy Frequency: 5 times a week Clinical Impression: Camille Dawkins presents with moderate oropharyngeal dysphagia, suspect improved compared to initial instrumental swallow study per treatment sessions, moderate dysarthria, and mild cognitive deficits s/p acute R MCA CVA. Subjective: Patient is self feeding breakfast upon TRENCHING MACHINE OPERATOR entering room, independently utilizing compensatory strategies for bolus placement on R. Pain: General Pain Documentation (Adult, OB, Peds) Presence of Pain: denies pain/discomfort Lines/Drains/Tubes: Lines/Tubes/Drains (Rehab Status): Telemetry Respiratory Status: Nasal Cannula: respirations easy/unlabored Acute TRENCHING MACHINE OPERATOR Goals Plan of Care by Kamilla Hernandez, TRENCHING MACHINE OPERATOR at 08/13/2022 9:30 AM Version 1 of 1 Problem: TRENCHING MACHINE OPERATOR - Dysphagia Goal: Bolus Challenge Goal 1 Description: Patient will swallow therapeutic p.o.trials/bolus challenge swallows (with TRENCHING MACHINE OPERATOR only) of puree solids x10-20 trials, given mod cues, for use of double swallow strategy to improve bolus efficiency/promote reduction of pharyngeal residue, without clinical signs/symptoms of airway penetrati on/aspiration over the course of x1-3 sessions to progress towards potential readiness for a repeatinstrumental swallow evaluation. Outcome: Completed Tx: Goal not directly addressed. Goal: Bolus Challenge Goal 2 Description: Patient will swallow therapeutic p.o.trials/bolus challenge swallows (with TRENCHING MACHINE OPERATOR only) of thin liquids via straw/cup x10-15 trials, given mod cues, for neuro stimulation opportunities without clinical signs/symptoms of airway penetration/aspiration over the course of x1-3 sessions to determine possible readiness for a repeat instrumental swallow evaluation. Outcome: Ongoing Tx: Goal not directly addressed as patient becoming sleepy/drowsy following solid po trials Problem: TRENCHING MACHINE OPERATOR - Dysphagia Goal: PO Trial 3 Description: Patient will swallow 5-8 trials of various consistencies of upgraded solids demonstrating timely/effective mastication, bolus formation and oral bolus transit without overt clinical signs/symptoms of aspiration, across 1-2 sessions to determine readiness for diet advancement. Outcome: Ongoing Tx: Goal addressed, ongoing. TRENCHING MACHINE OPERATOR provided direct po trials of Soft and Bite Sized (IDDSI 6)/Dysphagia Advanced solids. The patient reports discomfort with bending arm secondary to IV so TRENCHING MACHINE OPERATOR assisted intermittently with feeding (~50% of the time). The patient consumed ~1/2 of a cup of diced pears with slow/prolonged mastication, mild oral residue in buccal cavity benefiting from liquid wash and intermittent lingual sweep to clear. The patient reports improving sensation in buccal cavity and lingual surface - able to communicate when food is 'still there.' Discussed with patient that it may take her longer to eat, but that she will have more options of soft and bite size diet. Pt is agreeable to advancement. Problem: TRENCHING MACHINE OPERATOR - Dysphagia Goal: Swallow Strategy Goal Description: Patient will utilize safe swallow strategies (bolus placement on R, lingual sweep, liquid wash) during PO trials of advanced solids with min cues across 1-2 sessions to demonstrate improved safety and independence with PO trials. Outcome: Ongoing Tx: Goal addressed, ongoing. See above. Problem: TRENCHING MACHINE OPERATOR - Cognition Goal: Attention Goal 2 Description: Patient will demonstrate ability to utilize trained strategies targeted at maintainingleft attention by completing functional tasks, to task completion, with no more than x3 cues to redirect attention in order to reduce breakdowns in ADLs and other functional, basic tasks. Outcome: Ongoing Tx: Goal not directly addressed. Goal: Problem Solving Goal 1 Description: Patient will complete basic problem solving tasks in at least 50% of opportunities in their immediate environment to support self-advocacy and independence, given mod-max cues across 2 consecutive sessions by discharge. Outcome: Ongoing Tx: Goal not directly addressed this date. Goal: Alertness Goal Description: Patient will participate in further cognitive-linguistic assessment across 1-2 sessions in order to further pinpoint deficits and continue to determine most appropriate plan of care for patient. Outcome: Ongoing Tx: Goal not directly addressed this date. Problem: TRENCHING MACHINE OPERATOR - Motor Speech Goal: Dysarthria Strategy Goal 3 Description: Patient will improve articulatory precision by repeating x1-2 words with trained over articulation strategy across 90% of (at least x20) trials with mod cues over x3-4 sessions. Outcome: Ongoing Tx: Goal addressed, ongoing. TRENCHING MACHINE OPERATOR reviewed compensatory speech strategies of 1) slow down, 2) over articulate, 3) speak loud withpatient. She benefits from min cues for implementation. TRENCHING MACHINE OPERATOR also communicated strategies with pt's as he was not present for session yesterday, 08/12. Problem: TRENCHING MACHINE OPERATOR - Cognition Goal: Meticognition Goal 2 Description: Patient will state x2-3 changes in function that impact his/her level of independence,with min prompts, across 1-2 sessions in order to improve insight into deficits, improve safety andimprove level of independence. Outcome: Completed Tx: Goal addressed and met. The patient able to explain barriers to discharge including medical barriers (heart rate) and functional barriers (L sided impairments) - patient states she needs to 're-learn everything.' Her insight into her current medical status is a relative strength. Patient Instruction/Education this session: Education provided regarding TRENCHING MACHINE OPERATOR role in rehab, rationale for diet advancement. Plan for next session: Continue goals per plan of care, focus on thin liquid trials and potential for repeat instrumental swallow study. TRENCHING MACHINE OPERATOR Outcomes: FOIS 5 I was assisted by no one for today's session. and I used gloves and facemask in today's patient interaction. Speech Language Pathologist: BEN Morgan Time In: 929 Time Out: 949 Total Visit Time: 20 minutes Total Treatment Time (skilled, billable minutes): 20 minutes Patient location at end of session: bed with head of bed elevated Alarms on at end of session: RN aware and no alarms were changed/manipulated during this encounter Needs in reach. Upon discontinuation of Acute Care Speech Therapy Services or patient discharge from the hospital this note represents the current Speech Therapy Discharge Summary * BEN Morgan - 08/12/2022 2:05 PM EST Acute Care Speech Language Pathology Treatment Diet Recommendations: Recommended Method of Nutrition: PO Recommended Diet Grade: dysphagia- pureed (IDDSI 4) Recommended Liquid Consistency: liquid- moderately thick (IDDSI 3)/honey Medications: crushed Swallow Strategies: (bolus placement on RIGHT, check for pocketing on LEFT, oral care after meals.) Type of Cues/Supervision: 1:1 supervision Assistance: nurse/aide Best mode of Communication: spoken language (regular speech) Communication Strategies: Speech Strategies: 1) Slow down 2) Over articulate 3) Speak loud Discharge Recommendations: Based on the below outcome measures/assessment score(s), FOIS 5, and SLPclinical judgment, discharge destination recommendation is: Inpatient Rehab Facility Barriers to discharge home: Cognitive impairments that impact safety and independence, 1:1 assist needed for IADL's including medication management and finances, Need for 1:1 assist to ensure safety with all PO intake Supporting factors for discharge setting: Impaired swallow function limiting nutritional status andsafety with oral intake, Impaired cognitive skills limiting independence Acute TRENCHING MACHINE OPERATOR Outcomes Tracking Communicate basic wants and needs?: yes Demo insight/appreciation of deficits?: yes Appreciate deficits - Details: improving Complete basic problem solving?: no Current therapy frequency recommendation in acute: Speech/Lang/Cog Therapy Frequency: 3 times a week Swallow Therapy Frequency: 5 times a week Clinical Impression: Camille Dawkins presents with moderate oropharyngeal dysphagia, moderate dysarthria, and cognitive deficits s/p acute R MCA CVA. The patient with strengths in compensatory strategy use and carry over. Subjective: Patient is awake, alert. Reports 'I'm motivated to get better'. States that she dislikes the food - not necessarily the texture but the flavor and wants salt/pepper/mrs dash seasonings onher tray. She also reports that the thickened liquids feel like they do not quench her thirst. Pain: General Pain Documentation (Adult, OB, Peds) Presence of Pain: denies pain/discomfort Pain Location: back Pain Location: back Lines/Drains/Tubes: Lines/Tubes/Drains (Rehab Status): Telemetry Respiratory Status: Room Air Acute TRENCHING MACHINE OPERATOR Goals Plan of Care by Kamilla Hernandez, TRENCHING MACHINE OPERATOR at 08/12/2022 2:05 PM Version 1 of 1 Swallow: Problem: TRENCHING MACHINE OPERATOR - Dysphagia Goal: Bolus Challenge Goal 1 Description: Patient will swallow therapeutic p.o.trials/bolus challenge swallows (with TRENCHING MACHINE OPERATOR only) of puree solids x10-20 trials, given mod cues, for use of double swallow strategy to improve bolus efficiency/promote reduction of pharyngeal residue, without clinical signs/symptoms of airway penetrati on/aspiration over the course of x1-3 sessions to progress towards potential readiness for a repeatinstrumental swallow evaluation. Outcome: Completed. Goal discontinued, patient met goal. Goal: Bolus Challenge Goal 2 Description: Patient will swallow therapeutic p.o.trials/bolus challenge swallows (with TRENCHING MACHINE OPERATOR only) of thin liquids via straw/cup x10-15 trials, given mod cues, for neuro stimulation opportunities without clinical signs/symptoms of airway penetration/aspiration over the course of x1-3 sessions to determine possible readiness for a repeat instrumental swallow evaluation. Outcome: Ongoing Tx: Goal addressed, ongoing. TRENCHING MACHINE OPERATOR provided the patient with direct po trials of thin liquids via tspx5, thin liquids via straw sip x5. She presented with immediate/reactive 'choking'/coughing with initial tsp of thin liquids. Coughing may be indicative of aspiration. The patient reports she feels like she would 'do better' if she held the liquid in her mouth first then swallowed. The patient subjectively with improved control of liquids with bolus hold technique with no overt signs/symptoms concerning for potential laryngeal penetration or aspiration with remainder of trials. Will continue to complete for neuro stimulation opportunities and will proceed with repeat instrumental in the next few days (likely early next week). Pt expressed understanding for current diet recommendations when discussed. She also trialed Soft and Bite Sized (IDDSI 6)/Dysphagia Advanced solid x1 with slow/prolonged/difficult mastication with moderate oral residue in L buccal cavity and on L lingual surface. She states'that's really hard to chew, I don't mind the soft stuff I just don't like the flavor.' Speech/Language/Cognition: Problem: TRENCHING MACHINE OPERATOR - Cognition Goal: Attention Goal 2 Description: Patient will demonstrate ability to utilize trained strategies targeted at maintainingleft attention by completing functional tasks, to task completion, with no more than x3 cues to redirect attention in order to reduce breakdowns in ADLs and other functional, basic tasks. Outcome: Ongoing Goal: Problem Solving Goal 1 Description: Patient will complete basic problem solving tasks in at least 50% of opportunities in their immediate environment to support self-advocacy and independence, given mod-max cues across 2 consecutive sessions by discharge. Outcome: Ongoing Goal: Meticognition Goal 2 Description: Patient will state x2-3 changes in function that impact his/her level of independence,with min prompts, across 1-2 sessions in order to improve insight into deficits, improve safety andimprove level of independence. Outcome: Ongoing Goal: Alertness Goal Description: Patient will participate in further cognitive-linguistic assessment across 1-2 sessions in order to further pinpoint deficits and continue to determine most appropriate plan of care for patient. Outcome: Ongoing Tx: The aforementioned goals were not addressed as focus is on motor speech goal this date. Problem: TRENCHING MACHINE OPERATOR - Motor Speech Goal: Dysarthria Strategy Goal 3 Description: Patient will improve articulatory precision by repeating x1-2 words with trained over articulation strategy across 90% of (at least x20) trials with mod cues over x3-4 sessions. Outcome: Ongoing Tx: Goal addressed, ongoing. TRENCHING MACHINE OPERATOR taught/introduced to patient S.O.S strategies (speak up, over articulate, slow down). When utilized, the patient's intelligibility increases from ~60% to ~80% intelligible. Will continue to follow. Patient Instruction/Education this session: Education provided regarding TRENCHING MACHINE OPERATOR rationale for current diet recommendations as well as education regarding compensatory speech strategies. Plan for next session: Ongoing trials of thin liquids in order to determine readiness for repeat instrumental swallow (MBS - in Archie barrera) TRENCHING MACHINE OPERATOR Outcomes: FOIS 5 I was assisted by no one for today's session. and I used gloves and facemask in today's patient interaction. Speech Language Pathologist: BEN Morgan Time In: 1405 Time Out: 1425 Total Visit Time: 20 minutes Total Treatment Time (skilled, billable minutes): 20 minutes Patient location at end of session: bed with head of bed elevated Alarms on at end of session: RN aware and no alarms were changed/manipulated during this encounter. Needs in reach. Upon discontinuation of Acute Care Speech Therapy Services or patient discharge from the hospital this note represents the current Speech Therapy Discharge Summary * ALDO Sosa - 08/12/2022 10:59 AM ESTSummary: SNF placement Reason for Consult: placement Consulted By: Medical team Level(s) of Care Discussed: SNF Patient's Preferred Geographic Area for Discharge: [place], [place] Patient's preference for providers to include? 1.[facility] Patient's preference for providers to exclude? 1.[facility] Patient and/or Rail Car Unloader Discussion Spouse Discussed referral process with the patient (and/or petroleum products sales representative). Patient is agreeable to have placement referral initiated. Placement Plan Expected Discharge Date: TBD Referred Level of Care: SNF Patient Choice for Post-Acute Providers Barriers: pre-cert, bed availability, transportation Current Referrals and Status 1. [facility] 2. [facility] SOMMER Sosa, [facility] Strategic Planner * Livier Jeffers OT - 08/12/2022 9:13 AM EST Acute Occupational Therapy Treatment Prior to Admission AM-PAC Score: PRIOR LEVEL AM-PAC Activity Raw Score: 24 PRIOR LEVEL AM-PAC Mobility Raw Score: 24 Current AM-PAC score(s): CURRENT AM-PAC Activity Raw Score: 12 Based on the above AM-PAC score(s), and OT clinical judgment, discharge destination recommendation is: Senior Living Facility (with hopeful progression to [facility] with improved pt activity tolerance) Barriers to discharge home: Lack of appropriate DME, Patient unable to navigate stairs to enter home, Patient needs assistance with functional mobility, Patient needs assistance with ADLs, Patient needs assistance with IADLs (see note below), Patient needs assistance with medication management, Patient needs assistance with self-care for medical condition (see note below), Cognitive impairments that impact safety (see note below), Unsafe home environment given patient's current status (see notebelow) Mobility equipment available at home: rollator, stair glide ADL equipment available at home: shower chair, grab bars Equipment recommendations for discharge: wheelchair, bedside commode, shower chair, bathing equipment, dressing equipment, toileting equipment Current therapy frequency recommendation(s) in acute: 5 times a week Precautions and Weightbearing Status: OT Existing Precautions/Restrictions: fall, cardiac, supplemental oxygen Telemetry Patient Safety Communication Prior to Visit: Nursing Subjective: Pt agreeable to OT session, requests repositioning in bed d/t feelling all balled up. Pt's arriving at end of session - discussed with pt and spouse that pt's does not demonstrate activity tolerance for 3 hours of therapy per day at [facility], but OT will continue to update recs as able as pt progresses, spouse v/u and agreeable. Pain: General Pain Documentation (Adult, OB, Peds) Presence of Pain: complains of pain/discomfort Pain Location: back DVPRS (Defense and Veterans Pain Rating Scale) DVPRS: Rest: 8- severe pain DVPRS: Activity: 8- severe pain Objective/Observation: Vitals/Vitals Responses to Treatment: At time of first attempt ([id number]), pt in AFIB and HR varying from 105-165 during bed level conversation. RN informed - initially still agreeable for OT to mobilize pt but then later requesting that OT work with pt at bed level only today 2/2 AFIB and tachycardia, as well as wheezing/SOB during movement. During session: Pt's HR between low 100's-156 w/ bed level activity and still in AFIB. Pt demo's wheezing/SOB w/ any activity performed, SPO2 WFL 93-100% throughout session - suspect SOB may be related to anxiety or effort/concentration, pt benefiting from cues for slow, pursed lip breathing; SOB improving w/ frequent cueing. Respiratory Status O2 Device: nasal cannula Flow (L/min): 2 Cognition Overall Cognitive Status: Impaired Arousal/Alertness: Delayed responses to stimuli Orientation Level: Oriented X4 (increased time for responses) Following Commands: Follows one step commands with increased time, Follows one step commands with repetition Safety Judgment: Decreased awareness of need for assistance, Decreased awareness of need for safety Awareness of Errors: Assistance required to identify errors made, Assistance required to correct errors made Deficits: Decreased awareness of deficits Attention Span: Attends with cues to redirect Memory: Decreased short term memory Problem Solving: Assistance required to identify errors made, Assistance required to generate solutions, Assistance required to implement solutions Cognition Comments: Delayed processing and increasingly sleepy during session, able to awaken and participate with cueing; overall attention still impaired but seems improved this date as compared toprevious OT session; impaired motor planning noted ADL Assessment/Intervention: ADLs: Eating Assistance: Grooming Assistance: Bathing Assistance: UE Dressing Assistance: LE Dressing Assistance: Toilet Assistance: Total Toileting Location: bedpan Toileting Deficit: Perineal hygiene, Clothing management up, Clothing management down, Generalized weakness, Activity tolerance, Increased time to complete Toilet Skilled Rationale (Verbal/Tactile/Visual/Demonstration): Facilitate positioning, Technique of activity Toileting Intervention/Details: Pt using bedpan 2/2 RN request for bed level activity today only; pt ultimately unable to void but would need assist w/ all elements. Extremity Assessments: See OT Evaluation flowsheet for Extremity Measurement updates. Balance: Skin and Edema: Mobility Assessment/Intervention: Rolling/Turning Mobility Jay Level: Rolling/Turning: maximum assist (25% patient effort) (Min A to L, Max A to R) Bed Features/Set-up: Rolling/Turning: Flat, Use of bed rail Skilled Rationale: Positioning, Hand placement, Verbal cues, Tactile cues, Technique of activity, Cues for increased safety Skilled Intervention/Details: Rolling/Turning: Pt reporting need to void, RN requesting pt not get out of bed at this time 2/2 HR tachy/AFIB; Pt Min A to roll to L to place and remove bedpan w/ Mod verbal and tactile cueing for R UE and LE tech; Pt Max A to roll to R side for pad change, Scooting Bridging Mobility Jay Level: Scooting/Bridging: moderate assist (50% patient effort) Bed Features/Set-up: Scooting/Bridging: (bed in trendelenburg) Skilled Rationale: Positioning, Hand placement, Verbal cues, Technique of activity Skilled Intervention/Details: Scooting/Bridging: Pt able to boost self up in bed w/ Mod A and Mod cueing for R UE placement to bedrail and R LE tech; gravity assisted w/ bed placed in trendelenburg position Supine to Sit Mobility Skilled Intervention/Details: Supine->Sit: Deferred this date 10/14 RN request for bed level treatment only at this time /2 tachy/in AFIB and SOB Transfer Assessment/Intervention: Functional Mobility: Outcome Score(s): CURRENT [facility] Daily Activity Inpatient Short Form Putting on/Taking Off Lower Body Clothin - Total Assistance Bathin - A Lot of Assistance Toiletin - Total Assistance Putting on/Taking Off Upper Body Clothin - A Lot of Assistance Groomin - A Little Assistance Eatin - A Little Assistance CURRENT [facility] Activity Raw Score: 12 CURRENT [facility] Activity Functional Limitation/Modifier: 66.57% Currently Impaired in Daily Activity- CL Interventions: Intervention 1 Intervention Name: L UE SROM/PROM Details: Pt educated on L UE SROM/PROM to prevent contracture and increase visual and proprioceptive input to L UE. Pt then performed x5 reps each of B shoulder shrugs & shoulder squeezes (2/5 muscle activation noted at upper and middle trap) and L UE SROM/PROM in directions of shoulder FF to 90 degress, shoulder abduction to 90 degrees, IR/ER, elbow flexion/extension, forearm supination/pronation, wrist flexion/extension, and digit flexion/extension. Pt benefiting from Mod cueing and hand over hand assist for all movements during task 2/2 overall impaired motor planning and L side attention, benefiting from review at end of task . Pt tolerated fairly - increasingly fatigued as task prog ressed and at times holding breath or SOB during task, but able to breath calmly w/ cues for patterned/pursed lip breathing. Pt encouraged to perform daily x5-10 reps x2-3/day each, however will benefit from continued guided practice and review 2/2 memory and motor planning impairments. Assessment & Plan: Pt tolerated OT session fairly this date, limited by fatigue and medical instability. Pt progressing towards OT goals in L UE NMRE and visual attention. Pt continues to be limited most by impaired cognition, impaired activity tolerance, impaired balance, L side weakness (UE>LE), SOB, anxiety (ptself- reports), medical instability,and fatigue during functional mobility and ADL performance. Pt will continue to benefit from skilled OT services to maximize independence and safety with ADLs/functional mobility and reduce burden of care at discharge. Patient Instruction/Education this session: Plan for next session: L UE NMRE, seated ADLs, progress EOB balance, progress chair/BSC transfers Acute OT Goals Plan of Care by Livier Jeffers OT at 08/12/2022 9:13 AM Version 1 of 1 Problem: OT - Visual Scanning Goal: Visual Tracking Description: Pt will track past midline to left 6 completions during session with 20 % cues, to attend to familiar object/person for ADL participation. Outcome: Ongoing Problem: OT - Strength/ROM Goal: Neuro Re-education Description: Pt will participate in neuro re-ed of (LUE) to improve strength by 2 muscle grades in each group, for improved use in ADLs. Outcome: Progressing Toward Goal OT treatment consisted of ADL retraining, bed mobility training, motor coordination training, neuromuscular re-education and strengthening to work and progress towards above goal(s). Treating Therapist: Livier Jeffers OT Additional Details: Co-evaluation/co-treatment performed?: No simultaneous skilled care performed I used facemask, protective eye shield, and gloves in today's patient interaction. Patient location at end of session: bed with head of bed elevated and RN aware Alarms on at end of session: bed alarm and RN aware Needs in reach. Time In: 09 (+attempt at [id number], pt eating, agreeable for OT to return after breakfast) Time Out: 944 Total Visit Time: 32 minutes Total Treatment Time (skilled, billable minutes): 32 minutes Upon discontinuation of Acute Care Occupational Therapy Services or patient discharge from the hospital this note represents the current Occupational Therapy Discharge Summary. * Kamilla Hernandez, TRENCHING MACHINE OPERATOR - 08/11/2022 11:00 AM EST Acute Care Speech Language Pathology Treatment Diet Recommendations: Recommended Method of Nutrition: PO, Short-term alternate nutrition Recommended Diet Grade: dysphagia- pureed (IDDSI 4) Recommended Liquid Consistency: liquid- moderately thick (IDDSI 3)/honey Medications: crushed Swallow Strategies: (bolus placement on R, drink from cup not a straw, oral care after meals) Type of Cues/Supervision: 1:1 supervision Assistance: nurse/aide Best mode of Communication: spoken language (regular speech) Discharge Recommendations: Based on the below outcome measures/assessment score(s), FOIS 5, and SLPclinical judgment, discharge destination recommendation is: Senior Living Facility (with hopeful progression to [facility]) Barriers to discharge home: Cognitive impairments that impact safety, Cognitive impairments that impact safety and independence, Need for 1:1 assist to ensure safety with all PO intake Supporting factors for discharge setting: Impaired swallow function limiting nutritional status andsafety with oral intake, Impaired cognitive skills limiting independence, Impaired cognitive skillslimiting functional problem solving in immediate environment, Impaired cognitive skills limiting saf ety/insight Acute TRENCHING MACHINE OPERATOR Outcomes Tracking Communicate basic wants and needs?: yes Demo insight/appreciation of deficits?: no Complete basic problem solving?: no Current therapy frequency recommendation in acute: Speech/Lang/Cog Therapy Frequency: 5 times a week Swallow Therapy Frequency: 5 times a week Clinical Impression: Camille Dawkins presents with improvements in alertness this date, stimulable to cues for compensatory swallow strategies, and presents with no overt signs/symptoms concerning for potential laryngeal penetration or aspiration with Puree (IDDSI 4) and Moderately thick (IDDSI 3)/Honey thick liquid. TRENCHING MACHINE OPERATOR provided significant volume of po trials and reviewed FEES images personally and discussed with therapist who completed FEES. Subjective: Patient is sleeping upon TRENCHING MACHINE OPERATOR entering room but easily alerts, participates with TRENCHING MACHINE OPERATOR. is at bedside and supportive of treatment efforts. Pain: General Pain Documentation (Adult, OB, Peds) Presence of Pain: non-verbal indicator of pain/discomfort not present Lines/Drains/Tubes: Lines/Tubes/Drains (Rehab Status): Telemetry Respiratory Status: Room Air Acute TRENCHING MACHINE OPERATOR Goals Plan of Care by Kamilla Hernandez, TRENCHING MACHINE OPERATOR at 08/11/2022 11:00 AM Version 1 of 1 Problem: TRENCHING MACHINE OPERATOR - Dysphagia Goal: Bolus Challenge Goal 1 Description: Patient will swallow therapeutic p.o.trials/bolus challenge swallows (with TRENCHING MACHINE OPERATOR only) of puree solids x10-20 trials, given mod cues, for use of double swallow strategy to improve bolus efficiency/promote reduction of pharyngeal residue, without clinical signs/symptoms of airway penetrati on/aspiration over the course of x1-3 sessions to progress towards potential readiness for a repeatinstrumental swallow evaluation. Outcome: Ongoing Tx: Goal addressed, ongoing. TRENCHING MACHINE OPERATOR provided direct po trials of Puree (IDDSI 4) via tsp (TRENCHING MACHINE OPERATOR fed and pt fed combination - TRENCHING MACHINE OPERATOR initially), and Moderately thick (IDDSI 3)/Honey thick liquid. The patient accepted all trials initially(initial 3-4 boluses) with oral holding, sticking tongue into cup of liquids instead of siphoning, unable to siphon from straw. TRENCHING MACHINE OPERATOR then provided patient education re: need to see patient be able to accept and swallow trials, placing bolus on R for improved oral clearance, and encouraging patient to do this without significant cueing. The patient reports that her tongue is sore from where she bit it at one point during hospitalization and that the trials felt 'cold' on her mouth. She subsequently was able to demonstrate improved timing of oral clearance, no further bolus holding, mild pocketing in L buccal cavity with puree which she was able to reduce with multiple swallows and liquid wash of Moderately thick (IDDSI 3)/Honey thick liquids. She also demonstrates anterior labial loss of cup sips of Moderately thick (IDDSI 3)/Honey thick liquid (moderate anterior labial loss) intermittently. Although 'messy', the patient is able to take significant volume of trials (4 oz of Moderately thick (IDDSI 3)/Honey thick liquids and ~2 oz of Puree (IDDSI 4)) with no overt signs/symptoms concerning for potential laryngeal penetration or aspiration. TRENCHING MACHINE OPERATOR reviewed FEES and given low PAS ratings with no obvious aspiration of puree/moderately thick liquids and significant improvements in mentation with stimulability for compensatory strategies, recommend diet initiation as above. Will closely monitor. Goal: Bolus Challenge Goal 2 Description: Patient will swallow therapeutic p.o.trials/bolus challenge swallows (with TRENCHING MACHINE OPERATOR only) of thin liquids via straw/cup x10-15 trials, given mod cues, for neuro stimulation opportunities without clinical signs/symptoms of airway penetration/aspiration over the course of x1-3 sessions to determine possible readiness for a repeat instrumental swallow evaluation. Outcome: Ongoing Tx: Goal not addressed, utilized Moderately thick (IDDSI 3)/Honey thick liquids and puree solids for trials as above. Patient Instruction/Education this session: Education provided regarding TRENCHING MACHINE OPERATOR role in rehab and rationale for treatment session and decision making. Education also provided re: compensatory swallow strategies, diet modification recommendations (consistency) and rationale for same, goal to continue to progress patient. Plan for next session: Ensure carry over of compensatory swallow strategies, trials of thin/regularliquids to determine readiness for potential repeat instrumental given pt's improving clinical status. TRENCHING MACHINE OPERATOR Outcomes: FOIS 5 I was assisted by Ana M Kramer, BEN and her hospital clinic students for today's session. and I used gloves and facemask in today's patient interaction. Speech Language Pathologist: BEN Morgan Time In: 1100 Time Out: 1152 Total Visit Time: 52 minutes Total Treatment Time (skilled, billable minutes): 52 minutes Patient location at end of session: bed with head of bed elevated Alarms on at end of session: RN aware and no alarms were changed/manipulated during this patient encounter Needs in reach. Upon discontinuation of Acute Care Speech Therapy Services or patient discharge from the hospital this note represents the current Speech Therapy Discharge Summary * Jenn Ortiz - 08/10/2022 4:30 PM EST Discharge Planning Patient Assessment Admission Assessment Patient Assessment Completed: Initial Anticipated discharge disposition: Inpatient Rehab Facility Reason for Admission: Right MCA ischemic stroke s/p thrombectomy TICI 2b Is the patient able to participate in the assessment?: Yes (but limited ability) Information source: Spouse Information Source Name/Contact: Dominic Gardiner (confirmed they are legally with different last names) Demographics Verified and Updated: Yes Has the patient been admitted to any hospital in the last 30 days?: Transferred From Outside Hospital Advanced Care Planning Has the patient completed Advance Directives?: Not Completed Referral to Social Work for Advance Care Planning? : Patient Declines Legal Next of Kin Does the patient have a Guardian?: No Spouse: Yes Name and Contact information: Dominic Gardiner Referral to Social Work to Identify Legal Next of Kin?: No Reviewed and Updated in Demographics? : Yes Outpatient Providers Does patient have a primary care physician? : Yes When was the patient's last PCP visit?: > 30 days Does the patient follow any specialists?: No Reviewed and updated Care Team?: Yes Patient Care Team: Nando Esposito MD as PCP - General (Family Medicine) Environment/Caregivers Is the patient from a facility or longterm?: No Patient lives with: Spouse or Partner Living Environment: House How many steps does the patient have to navigate to enter or inside the home? : 2STE, pt has 1-2 steps within living area. States they have a stair lift to 2nd fl bed/bath Does the patient have a first floor set-up with bed and bathroom?: Yes Patient Caregiving Responsibilities: Self Patient-identified caregiver/support network: Family Who does the patient identify as a teachable caregiver(s)?: Spouse or Partner Services Does the patient use a home health or hospice agency?: No (a referral had been made while she was at [facility] but cannot recall name of provider) Current with dialysis?: No Does the patient use any community programs or services?: No Does patient use DME? : rollator, shower seat DME provider name and contact: [facility] Would you like to add additional DME providers?: No Does the patient use oxygen?: No Does patient use medical supplies? : none Anticipated Changes Related to Illness/Injury? : Yes Inability to care for self?: Yes Inability to return to school/work?: Yes Will patient need return to work/school letter/FMLA?: ( states that FML was initiatted whilept at [facility]. Encouraged him to follow up with providers there and her employer to verify in place) Initial ADLs Prior to Arrival What is the patient's baseline physical functioning prior to this acute illness?: independent What is the patient's baseline cognitive functioning prior to this acute illness?: independent Is the patient's baseline functioning changed by this acute illness? : Yes Changes observed : Physical, Cognitive Concerns with patient being able to care for themselves at home? : Yes (will need rehab) Are there therapy or specialists consults?: Yes Select consult type: PT, OT, TRENCHING MACHINE OPERATOR Does the patient's home require any home modifications for discharge? : Unknown at this time CM to recommend therapy or other consults? : Yes Select consult type: Social Work Medication Management Does the patient have prescription insurance coverage? : Yes Is the patient on Anticoagulation? : Yes Provider or Clinic that manages Anticoagulation?: yun camarena dc with it, anticipates PCP will manage [facility] [address] [place] [id number] [facility] [address] [facility] [id number] [employer] Does the patient or petroleum products sales representative express financial concerns? : No Employed?: Yes Coping/Stress Concerns about patient s coping and stress?: No Concerns about patient s caregiver s coping and stress?: No Values and Beliefs Cultural or mandaeism practices that may impact discharge planning and/or medical care?: No Initial Discharge Planning Anticipated discharge disposition: Inpatient Rehab Facility Transportation Available for Discharge: Ambulance Anticipated DME: unknown at this time Anticipated Services at Discharge: Physical Therapy, Occupational Therapy, Senior Living, Speech Therapy Patient Assessment Completed: Initial Risk of Readmission: 4.7 Category Reference: High:16-100 Mod-High:10-16 Mod-Low: 5-10 Low: 0-5 Expected Discharge Date: Readmission Summary and Discharge Planning Narrative works clinical cytogenetics director. States he is aware of a '[facility] star rehab' in [facility] but could not recall name of it. Explained process of sending initial info to providers to compile a list of Facilities that are able to meet discharge needs. He agrees Case Management Plan -Anticipate need for post acute services., Will monitor for team recommendations of level of care and provide list of potential providers as appropriate. - Pt will be provided instructions on follow-up appointments, - Pt will be provided instructions/ information on the warning signs and symptoms which may indicate the need to seek medical attention Jenn GILBERT/L, CCM, [facility] * Yasemin Cardenas OT - 08/10/2022 10:22 AM EST Acute Occupational Therapy Evaluation Prior to Admission AM-PAC Score: PRIOR LEVEL AM-PAC Activity Raw Score: 24 Current AM-PAC score(s): CURRENT AM-PAC Activity Raw Score: 12 Based on the above AM-PAC score(s) and OT clinical judgment, discharge destination recommendation is: Senior Living Facility Barriers to discharge home: Lack of appropriate DME, Patient unable to navigate stairs to enter home, Patient needs assistance with functional mobility, Patient needs assistance with ADLs, Patient needs assistance with IADLs (see note below), Patient needs assistance with medication management, Patient needs assistance with self-care for medical condition (see note below), Cognitive impairments that impact safety (see note below), Unsafe home environment given patient's current status (see notebelow) Mobility equipment available at home: rollator, stair glide ADL equipment available at home: shower chair, grab bars Equipment recommendations for discharge: wheelchair, bedside commode, shower chair, bathing equipment, dressing equipment, toileting equipment Current therapy frequency recommendation(s) in acute: 5 times a week Precautions and Weightbearing Status: OT Existing Precautions/Restrictions: fall, cardiac, supplemental oxygen (Exit alarm.) Telemetry Patient Safety Communication Prior to Visit: Nursing Subjective: Pt reported, I'm listening! when frequently losing attention to therapist command/cue during session. Pain: General Pain Documentation (Adult, OB, Peds) Presence of Pain: complains of pain/discomfort Pain Location: back, knee, left, knee, right DVPRS (Defense and Veterans Pain Rating Scale) DVPRS: Rest: 7- severe pain DVPRS: Activity: 7- severe pain Home Setting Residence: House (Two-level home.) Lives With: spouse (24 hour care available.) First floor setup: walk-in shower, other (see comments) (Plus a jacuzzi tub.) Second floor setup: bedroom, tub shower, walk in shower (Preferred bed/bath; Pt prefers the walk-inshower.) Number of stairs to enter home: 2 Number of stairs in home: 1 flight to 2nd level of home (stair glide available); Once on 2nd level,pt required to navigate 2 stairs up into master bathroom and 2 steps down to an entertainment room. Stair Railings at Home: entry - no rail, interior - with rail (No rail for 2 steps on 2nd level of home, but rail for stairs up to 2nd level.) Mobility Equipment Available: rollator, stair glide ADL Equipment Available: shower chair, grab bars Home Environment Details: Secondary to pt's current deficits in cognition/mentation/language, pt's spouse present and providing most of the occupational profile for accuracy. Previous Level of Function Prior level ADL Overview: Independent with all ADLs Dominant Hand: Right Bed Mobility/Transfers: independent Ambulation Skills: independent Assistive Device: none used Level of Ambulation: household Prior Level of Function Details: Pt reports recently she has been mostly staying within the home. 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 Objective/Observation: Vitals/Vitals Responses to Treatment: No adverse reactions noted. Respiratory Status O2 Device: nasal cannula Flow (L/min): 4 Vision Screen Currently wearing corrective lenses: No Vision History: Pt typically utilizes glasses for driving only [employer]. Clinical Observations: This date, pt appears to present with left inattention, requiring increased cues/time to mildly visually scan into left visual field, but with overall poor visual attention. Visual Impairments Observed?: Yes Speech Speech: slurred speech, other (see comments) (Delayed speech production rate.) Hearing Hearing: no gross deficits noted Cognition Overall Cognitive Status: Impaired Arousal/Alertness: Delayed responses to stimuli Orientation Level: Oriented to person, Oriented to place, Oriented to time Following Commands: Follows one step commands with increased time, Follows one step commands with repetition Safety Judgment: Decreased awareness of need for assistance, Decreased awareness of need for safety Awareness of Errors: Assistance required to identify errors made, Assistance required to correct errors made Deficits: Decreased awareness of deficits Attention Span: Attends with cues to redirect, Difficulty attending to directions, Difficulty dividing attention (Easily distracted, requiring frequent cues for re-direction.) Memory: Decreased short term memory Problem Solving: Assistance required to identify errors made, Assistance required to generate solutions, Assistance required to implement solutions Cognition Comments: Delayed processing rate/motor planning; Easily distracted; Mild confusion; Flataffect; Mild impulsivity/restlessness; Overall, decreased insight into deficits/safety awareness. ADLs: ADL Anticipated Performance (ADLs not directly observed this session): Eating, Grooming, Bathing, UE Dressing, LE Dressing, Toileting Eating Assistance: Minimal Eating Location: chair Grooming Assistance: Minimal Grooming Location: seated in chair Bathing Assistance: Maximal Bathing Location: seated in chair UE Dressing Assistance: Moderate UE Dressing Location: seated in chair LE Dressing Assistance: Total LE Dressing Location: seated in chair, standing Toilet Assistance: Total Toileting Location: bedside commode Extremity Assessments: RUE Assessment RUE Assessment: AROM WFL, Strength WFL, Tone WFL Right UE Assessment Details: About 4/5 grossly; Moderate grasp strength. LUE Assessment LUE Assessment: AROM Impaired, Strength Impaired, Tone Impaired, PROM WFL Left UE Assessment Details: 0/5 grossly; Absent grasp strength; Hypotonic (moderately), no shouldersubluxation noted. Balance: Sitting Balance Static Sitting-Level of Assistance: Contact guard Dynamic Sitting-Level of Assistance: Minimum assistance Sitting Balance Skilled Intervention/Details: Seated EOB for about 14-15 minutes, mostly requiring assistance with left lateral and retropulsive lean (especially with dynamic activity completion). Standing Balance Static Standing-Level of Assistance: Maximum assistance, 2-person assist Dynamic Standing-Level of Assistance: Maximum assistance, 2-person assist Standing Balance Skilled Intervention/Details: Standing for about 10-15 seconds during performance of functional transfer, mostly requiring assistance with hip extension, left lateral/retropulsive lean, left LE buckling, and kyphotic posture with flexed cervical position. Neuro: Sensation Overall Sensation: Impaired Sensation Comments: Pt appears to present with diminished sensation to light touch, but active withdraw to painful stimulus, in the left UE. Fine Motor Coordination Left Hand, Finger To Nose: unable to perform Right Hand, Finger To Nose: mild impairment Left Hand Thumb/Finger Opposition Skills: unable to perform Right Hand Thumb/Finger Opposition Skills: mild impairment Left Hand, Diadochokinesis Skills: unable to perform Right Hand, Diadochokinesis Skills: mild impairment Skin and Edema: Skin Integrity Skin Integrity Description: WFL (Visible areas.) Edema Edema: present (Bilateral UEs (left>right; mostly distally in hands).) Mobility Assessment: Supine to Sit Mobility Jay Level: Supine->Sit: moderate assist (50% patient effort) Physical Assist: Supine->Sit: 2 person assist Bed Features/Set-up: Supine->Sit: Head of bed elevated, Use of bed rail Skilled Rationale: Cues for increased safety, Initiation and execution of task, Technique of activity, Full extension to upright positioning/posture, Facilitate anterior shift, Tactile cues, Verbal cues, Hand placement, Sequencing, Positioning Skilled Intervention/Details: Supine->Sit: Cues for initiation/sequencing/safety, as well as assisting with upper trunk support, LEs (left>right), and aligning hips to midline. Transfer Assessment: Sit to Stand Transfer Jay Level: Sit->Stand: maximum assist (25% patient effort) (x 1 trial from EOB.) Physical Assist: Sit->Stand: 2 person assist Assistive Device: Sit->Stand: gait belt (Non-skid socks.) Skilled Rationale: Cues for increased safety, Initiation and execution of task, Technique of activity, Upright gaze/neck extension, Finding/maintaining midline positioning, Full extension to upright positioning/posture, Facilitate anterior shift, Ischial assist, Patellar block, Arm in arm, Tactile cues, Verbal cues, Hand placement, Sequencing, Positioning Skilled Intervention/Details: Sit->Stand: Cues for initiation/sequencing/safety, as well as assisting with hip extension, left lateral/retropulsive lean, left LE buckling, and kyphotic posture with flexed cervical position. Stand to Sit Transfer Jay Level: Stand->Sit: maximum assist (25% patient effort) Physical Assist: Stand->Sit: 2 person assist Assistive Device: Stand->Sit: gait belt (Non-skid socks.) Skilled Rationale: Cues for increased safety, Initiation and execution of task, Technique of activity, Controlled descent for sitting, Ischial assist, Arm in arm, Tactile cues, Verbal cues, Hand placement, Positioning, Sequencing Bed-Chair Transfer Jay Level: Bed<->Chair: maximum assist (25% patient effort) Physical Assist: Bed<->Chair: 2 person assist Assistive Device: Bed<->Chair: gait belt (Non-skid socks.) Skilled Rationale: Cues for increased safety, Initiation and execution of task, Technique of activity, Upright gaze/neck extension, Finding/maintaining midline positioning, Controlled descent for sitting, Ischial assist, Patellar block, Arm in arm, Full extension to upright positioning/posture, Tactile cues, Verbal cues, Hand placement, Sequencing, Positioning Skilled Intervention/Details: Bed<->Chair: Cues for initiation/sequencing/safety, as well as assistingt with maintenance of upright posture and weight shifting to stand pivot towards the right. Outcome Score(s): Fugl-Cruz Assessment of Physical Performance Fugl-Cruz Selection of Upper Extremity: Left Left Flexor synergy (out of 12): 0 Left Extensor synergy (out of 6): 0 Left Volitional movement mixing synergies (out of 6) : 0 Left Volitional Movement with little or no synergy (out of 6): 0 Left Wrist (out of 10): 0 Left Hand (out of 14): 0 Left Coordination/Speed (out of 6): 0 LUE Fugl-Cruz Score (out of 60): 0 CURRENT [facility] Daily Activity Inpatient Short Form Putting on/Taking Off Lower Body Clothin - Total Assistance Bathin - A Lot of Assistance Toiletin - Total Assistance Putting on/Taking Off Upper Body Clothin - A Lot of Assistance Groomin - A Little Assistance Eatin - A Little Assistance CURRENT [facility] Activity Raw Score: 12 CURRENT [facility] Activity Functional Limitation/Modifier: 66.57% Currently Impaired in Daily Activity- CL Assessment & Plan: Patient was admitted for left sided weakness, right gaze preference, and dysarthria and found to have right MCA CVA s/p emergent thrombectomy and seen for therapy evaluation related to impairments inendurance/activity tolerance, bed mobility, dynamic seated balance, standing balance, functional tra nsfers/mobility, left UE ROM/strength/coordination/precision, vision, speech, and cognition limiting pt's safe/independent ADL performance this date. Exam findings include impairments in: attention, balance, cognitive impairments, coordination, edema, endurance, motor function, muscle performance, posture, ROM, sensation, strength, transfers, vision. These impairments contribute to occupational performance limitations including bathing, dressing, grooming, toileting, functional mobility, ADL transfers, leisure integration. The following factors impact the plan of care: Hx of recent COVID. Psychosocial Factors Positive indicators for performance: Adequate support system, Positive interpersonal relationships,Positive coping mechanisms Possible barriers for performance: Not active or linked with community programs Patient will benefit from skilled occupational therapy to address these impairments, occupational performance limitations, and participation restrictions. Patient's rehab potential is: good, to achieve stated therapy goals. Planned Therapy Interventions (OT Eval): ADL retraining, balance training, bed mobility training, cognitive training, edema management, fine motor coordination training, functional activity tolerance, motor coordination training, neuromuscular re-education, ROM (range of motion), strengthening, transfer training Patient Instruction/Education this session: Pt educated on the importance of EOB/OOB activities in improving independence in self-care/functional activity participation and on the role of OT/OT plan of care. Plan for next session: Therapist to address further standing balance/functional transfers, left UE neuro re-education, and ADL engagement with compensatory strategies. Acute OT Goals Plan of Care by Yasemin Cardenas OT at 08/10/2022 10:23 AM Version 1 of 1 Problem: OT - Dressing Goal: Upper Body Dressing Description: Pt will complete UE dressing task Edge of bed with standby assistance for improved ability to complete self-care activities. Outcome: Ongoing Problem: OT - ADLs Goal: Grooming Description: Pt will complete grooming Edge of bed with standby assistance for improved ability to safely complete ADLs. Outcome: Ongoing Problem: OT - Visual Scanning Goal: Visual Tracking Description: Pt will track past midline to left 6 completions during session with 20 % cues, to attend to familiar object/person for ADL participation. Outcome: Ongoing Problem: OT - Cognition Goal: Cognition simple ADL Description: Pt will demonstrate improved cognition, completing simple ADL task for 10 minutes with2 cues required to maintain attention, for improved safety and success at discharge destination. Outcome: Ongoing Problem: OT - Balance Goal: Balance - Standing Description: Pt will perform 4-5 minutes of functional ADL task in standing with moderate assistance and balance level of moderate assist to promote safety and improved balance required for self-careactivities. Outcome: Ongoing Problem: OT - Transfers Goal: Transfers Sit -> Stand Description: Pt will demonstrate good safety awareness during sit to/from stand functional transferwith moderate assistance and least restrictive device for improved safety and success at recommended discharge destination. Outcome: Ongoing Problem: OT - Strength/ROM Goal: Neuro Re-education Description: Pt will participate in neuro re-ed of (LUE) to improve strength by 2 muscle grades in each group, for improved use in ADLs. Outcome: Ongoing OT treatment consisted of balance training, bed mobility training, neuromuscular re-education, transfer training and vision training to work and progress towards above goal(s). Evaluating Therapist: Yasemin Cardenas OT Additional Details: Co-evaluation/co-treatment performed?: Yes, simultaneous billable skilled care This co-evaluation session performed between OT and PT was beneficial, necessary and provided distinct services in establishing this person's individual plan of care. Medical complexity with functional deficits necessitated two skilled therapy disciplines working concurrently to determine each discipline's goals. This co-treatment was medically necessary due to patient's: Cognitive issues, Coordination issues, Postural control and Endurance/Activity Tolerance. I used facemask, protective eye shield, and gloves in today's patient interaction. OT Evaluation Complexity Occupational Profile and Client History: High - extensive history Assessment of Occupational Performance: High (5 or more performance deficits) Clinical Decision/Performance Deficits: High (comprehensive assessments w/multiple treatment options) Time In: 0950 Time Out: 1022 Total Visit Time: 32 minutes Total Treatment Time (skilled, billable minutes): 32 minutes Patient location at end of session: chair Alarms on at end of session: chair alarm and RN aware Needs in reach. Upon discontinuation of Acute Care Occupational Therapy Services or patient discharge from the hospital this note represents the current Occupational Therapy Discharge Summary. * Marissa Shields, PT - 08/10/2022 9:50 AM EST Acute Physical Therapy Evaluation Prior to Admission [facility] score(s): PRIOR LEVEL AM-PAC Mobility Raw Score: 24 Current AM-PAC score(s): CURRENT AM-PAC Mobility Raw Score: 7 Based on the above AM-PAC score(s) and PT clinical judgment, patient is a good candidate for discharge to [facility] Barriers to discharge home: Patient needs assistance with functional mobility Mobility equipment available at home: rollator ADL equipment available at home: grab bars Equipment needed for discharge: to be determined Current therapy frequency recommendation in acute: Therapy Frequency: 5 times a week Precautions and Weightbearing Status: Existing Precautions/Restrictions: fall Telemetry Patient Safety Communication Prior to Visit: Nursing (advance as tolerated activity order) Subjective: Pt agreed to PT Pain: General Pain Documentation (Adult, OB, Peds) Presence of Pain: complains of pain/discomfort Pain Location: back, knee, left, knee, right General Pain Descriptors Pain Radiation To: 7 Home Setting Residence: House Lives With: spouse First floor setup: walk-in shower (and soaking tub) Second floor setup: bedroom, walk in shower Number of stairs to enter home: 2 Number of stairs in home: flight to second floor, 2 steps between master bedroom and master bathroom, 1 step into living room on first floor (chair lift to second floor) Mobility Equipment Available: rollator ADL Equipment Available: grab bars Previous Level of Function Prior level ADL Overview: Independent with all ADLs Dominant Hand: Right Bed Mobility/Transfers: independent Ambulation Skills: independent Assistive Device: none used Level of Ambulation: community Objective/Observation: Vitals/Vitals Responses to Treatment: no adverse response to PT Respiratory Status O2 Device: nasal cannula Flow (L/min): 4 Cognition Overall Cognitive Status: Impaired Arousal/Alertness: Delayed responses to stimuli Orientation Level: Oriented to person, Oriented to place, Oriented to time Following Commands: Follows one step commands with repetition, Follows one step commands with increased time Safety Judgment: Decreased awareness of need for safety, Decreased awareness of need for assistance Awareness of Errors: Assistance required to identify errors made, Assistance required to correct errors made Deficits: Decreased awareness of deficits Vision Screen Currently wearing corrective lenses: No (pt reports wearing glasses to drive) Clinical Observations: pt demonstrated right visual preference but able to cross midline with cues Speech Speech: slurred speech Hearing Hearing: no gross deficits noted Extremity Assessments: RLE Assessment Right LE Assessment Details: strength: 4+/5 LLE Assessment Left LE Assessment Details: strength: 4-/5 Mobility Assessment: Supine to Sit Mobility Jay Level: Supine->Sit: moderate assist (50% patient effort) Physical Assist: Supine->Sit: 2 person assist Bed Features/Set-up: Supine->Sit: Head of bed elevated Skilled Rationale: Verbal cues, Technique of activity Balance: Sitting Balance Static Sitting-Level of Assistance: (CGA to min A) Sitting Balance Skilled Intervention/Details: left lean. Pt able to identify left lean with verbal cues and able to initaite correction with cues Standing Balance Static Standing-Level of Assistance: Maximum assistance, 2-person assist Transfer Assessment: Sit to Stand Transfer Jay Level: Sit->Stand: maximum assist (25% patient effort) Physical Assist: Sit->Stand: 2 person assist Assistive Device: Sit->Stand: gait belt Skilled Rationale: Verbal cues, Tactile cues, Technique of activity Bed-Chair Transfer Jay Level: Bed<->Chair: maximum assist (25% patient effort) Physical Assist: Bed<->Chair: 2 person assist Assistive Device: Bed<->Chair: gait belt Skilled Rationale: Verbal cues, Tactile cues, Technique of activity Skilled Intervention/Details: Bed<->Chair: satnd pivot transfer from EOB to chair to the right Outcome Score(s): CURRENT [facility] Basic Mobility Inpatient Short Form Turning over in bed: 2 - A Lot of Assistance Sitting/standing from chair: 1 - Total Assistance Moving from lying on back to sittin - Total Assistance Moving to and from bed to chair: 1 - Total Assistance Walk in hospital room: 1 - Total Assistance Climbing 3-5 steps with a railin - Total Assistance CURRENT [facility] Mobility Raw Score: 7 CURRENT [facility] Mobility Functional Limitation/Modifier: 92.36% Currently Impaired in Basic Mobility- CM Interventions: Intervention 1 Intervention Name: LLE therapeutic exercises to promote strengthening required for functional mobility Sets/Reps/Duration: 1 set x 10 repetitions Details: seated active ROM: hip flexion, LAQ, hip abduction/adduction, ankle dorsiflexion/plantarflexion. PT provided verbal/tactile cues for exercise technique as well as repeated verbal/tactile cues for pt to visually attend to left leg during exercies and attend to task. Assessment & Plan: Patient was admitted for 62 y.o. female with a past history of cardiomyopathy, HLD, HTN, migraine,obesity, DMT2, COVID 07/2022, and afib who presented to outside hospital with left facial weakness,left arm and leg weakness and Admitted for stroke due to R M2 superior occlusion, S/P thrombectomy TICI 2A and seen for therapy evaluation related to mobility concerns. Exam findings include impairments in: Strength, Balance, Posture, Transfers, Gait/Locomotion, Aerobic capacity/endurance. These impairments contribute to functional limitations including Difficulty with transfers, Difficulty with bed mobility, Decreased functional mobility. Current clinical presentation is Unstable - unstable and unpredictable characteristics - safety risk (High). Patient history factors impacting Plan Of Care include . Patient will benefit from skilledphysical therapy to address these impairments, functional limitations, and participation restrictions and has good rehab potential to achieve therapy goals. Planned Therapy Interventions: balance training, bed mobility training, endurance, functional activity tolerance, gait training, neuromuscular re- education, postural re-education, strengthening, ROM,transfer training Patient Instruction/Education this session: plan for PT session Plan for next session: progress balance, transfers Acute PT Goals Plan of Care by Marissa Shields, PT at 08/10/2022 11:00 AM Version 1 of 1 Problem: PT - Balance/Coordination/Neuro Re-Education Goal: Sitting Dynamic/Static Balance Description: Pt will perform seated balance tasks for 8 minutes with standby assistance with trunk in midline position, UE support level to improve safety with seated tasks. Outcome: Ongoing Problem: PT - Transfers Goal: Supine <-> Sit Description: Pt will perform bed mobility with flat bed & no rail with moderate assistance in order to improve functional mobility and safety. Outcome: Ongoing Goal: Sit <-> Stand Description: Pt will perform sit to/from stand transfers with maximal assistance in order to improve functional mobility and safety. Outcome: Ongoing Goal: Stand-Pivot Description: Pt will perform stand/pivot transfer to/from bed/chair/commode with maximal assistancein order to improve functional mobility and safety. Outcome: Ongoing PT treatment consisted of Therapeutic Procedure to work and progress towards above goal(s). Evaluating Therapist: Marissa Shields PT Additional Details: Co-evaluation/co-treatment performed?: Yes, simultaneous billable skilled care This co-evaluation session performed between PT and OT was beneficial, necessary and provided distinct services in establishing this person's individual plan of care. Medical complexity with functional deficits necessitated two skilled therapy disciplines working concurrently to determine each discipline's goals. This co-treatment was medically necessary due to patient's: Postural control I used facemask, protective eye shield, and gloves in today's patient interaction. Evaluation Complexity Components History: High (3 personal factors and/or comorbidities) Body Systems Review: High (Addressing a total of 4 or more elements) Clinical Presentation: Unstable - unstable and unpredictable characteristics - safety risk (High) Clinical Decision Making: High Time In: 0950 Time Out: 1022 Total Visit Time: 32 minutes Total Treatment Time (skilled, billable minutes): 32 minutes Patient location at end of session: chair Alarms on at end of session: chair alarm and RN aware Needs in reach. Upon discontinuation of Acute Care Physical Therapy Services or patient discharge from the hospitalthis note represents the current Physical Therapy Discharge Summary. * Kamilla Hernandez TRENCHING MACHINE OPERATOR - 08/10/2022 9:15 AM EST Acute Care Speech-Language Pathology Clinical Swallow Evaluation Diet recommendation: Recommended Method of Nutrition: NPO OK for ice chips in order to promote frequency of volitional swallow, decrease risk for atrophy from swallow dis use, and promote improved secretion management. Please provide frequent/thorough oral care as this has been shown to prevent aspiration pneumonia in NPO patients Recommended Medication Administration (as appropriate per MD): Non-Oral Type of Cues/Supervision: 1:1 supervision Assistance: nurse/aide (with ice chips) Referrals: [facility] Discharge Recommendations: Based on the below outcome measures/assessment score(s) and TRENCHING MACHINE OPERATOR clinicaljudgment, discharge destination recommendation is: Pending instumental swallow assessment Supporting factors for discharge setting: Impaired swallow function limiting nutritional status andsafety with oral intake Acute TRENCHING MACHINE OPERATOR Outcomes Tracking Communicate basic wants and needs?: yes Demo insight/appreciation of deficits?: no Complete basic problem solving?: no Current therapy frequency recommendation in acute care: Swallow Therapy Frequency: 5 times a week Date of Admission: 08/09/2022 Date of Evaluation: 08/10/2022 Attending Physician: Sera Saldivar MD General Patient Information Name: Camille Dawkins Gender: female Date of : 1960 Primary Diagnosis: No diagnosis found. No past medical history on file. No past surgical history on file. Pain: General Pain Documentation (Adult, OB, Peds) Presence of Pain: complains of pain/discomfort General Pain Descriptors Pain Radiation To: 7 Lines/Drains/Tubes: Lines/Tubes/Drains (Rehab Status): Telemetry Patient History Comments: Pt is a 62 y.o. female who presents with past medical history of cardiomyopathy, HLD, HTN, migraine, obesity, diabetes (type 2), recent covid, and fib who presented with L facial droop and L arm/leg weakness. OSH head imaging revealed CTA occlusion of proximal M2 branch ofR MCA. She was transferred to this facility for further treatment. She did not receive tPA. She underwent emergent thrombectomy with TICI 2b revascularization and was admitted to [facility] for close neurological monitoring. Prior TRENCHING MACHINE OPERATOR history: None per EMR review. Patient's reports that the patient had a 'scope' put in her 'throat' by nursing staff Current Method of Nutrition: Route of Nutrition: No alternative means Respiratory Status: O2 Device: nasal cannula O2 Sat (%): 100 % Resp Rate: 19 Subjective: Patient is drowsy but alerts with min cues/stimulation Exam limited by cognition: Yes (min cues to maintain alertness) Objective Evaluation: Oral Motor: Cranial Nerve Exam CN V (Trigeminal) weakness of either masseter or temporal muscles or both (L facial weakness) CN VII (Facial) unilateral or bilateral weakness of upper or lower face or both (L facial weakness,L eye ptosis that family says is baseline?) CN IX (Glossopharyngeal) hoarseness (mild) CN X (Vagus) hoarseness (mild) CN XI (Accessory) weak or unequal shoulder shrug CN XII (Hypoglossal) deviation of tongue from midline (slight lingual deviation to the left) Vocal Quality: hoarse GRBAS: A perceptual rating scale for voice parameters Rating scale of 0 to 3 0 = no impairment 1 = minimal to mild impairment 2 = moderate impairment 3 = severe impairment Subjective Voice Evaluation Grade of dysphonia (G): 1 Roughness (R): 1 Breathiness (B): 1 Asthenia (A): 1 Strain (S): 0 Positioning: High Harrell's (60-90 degrees) Anticipatory Phase: Intact Foods and Liquids Trialed: Modality: Amount: Ice Teaspoon x5 Thin Teaspoon tsp x5 Dysphagia- pureed (IDDSI 4) Teaspoon x5 Oral Phase Function Comments Oral Mucosa Intact Dentition Natural teeth Labial Closure Impaired Mastication Unable to assess (secondary to concern for pharyngeal dysphagia) Oral Stasis Absent Cough before the swallow Absent Oral Phase Summary: Impaired oral phase of swallow characterized by intermittent mild bolus holdingwith ice chips, requiring min cues to swallow and significant/severe L facial weakness resulting inmild anterior labial loss of thin liquids. Pharyngeal Phase Function Comments Perceived Swallow Present Cough Response Yes, Immediate, Delayed Throat Clear No Subjective Complaint of Residue Absent Pharyngeal Phase Summary: Presume impaired pharyngeal swallow characterized by immediate/reactive cough with ice chip x1 and delayed cough in 2/5 tsp presentations of thin liquids. Prolonged, red faced coughing. Cough is concerning for aspiration. [place] Swallow Screen: (administered by: RN) [place] Swallow Screening Screening Exclusion Criteria: none, continue with [place] Swallow Screening Cognitive Screen: Orientation: able to give name, able to name place, able to name current year Cognitive Screen: Command Following: able to open mouth, able to stick out tongue, able to smile Oral Motor Function : able to close lips, able to move tongue to corners of lips, able to stick outtongue past lips, able to pucker lips and smile 3 oz. Water Swallow Challenge : no deficit-passed (stil think speech should come see for second opinon; passed onto day shift) [place] Swallow Screening Result: passed=cleared for oral intake Unclear if the patient actually passed the Mirian? Voice and Swallow Outcomes: Functional Oral Intake Scale: Level 1 - No oral intake Clinical Impression: Camille Dawkins presents with presume oropharyngeal dysphagia s/p acute R MCA CVA with thrombectomy. The patient with intermittent mild bolus holding with ice chips, requiring min cues to swallow and significant/severe L facial weakness resulting in mild anterior labial loss of thin liquids. Pt also withimmediate/reactive cough with ice chips x1, delayed cough in 2/5 presentations of thin liquids with prolonged/red faced coughing. Patient's cough is concerning for aspiration. The patient reports shefeels like she has 'phlegm' and that she is 'not choking.' The patient also with reduced insight into all deficits aside from her dysarthria. At this time, recommend NPO, ok for meds crushed in puree, and okay for ice chips with 1:1 direct assist from nursing. Recommend further assessment (FEES) in order to dynamically assess pharyngeal swallow. FEES chosen over MBS secondary to body habitus and acuity of medical status Plan for Next Session: FEES, tentatively planned for this date at 12:15. Patient Instruction/Education Provided this Session: Education provided regarding concern for oropharyngeal dysphagia, plan for FEES, rationale for recommendations. Acute TRENCHING MACHINE OPERATOR Goals Plan of Care by Kamilla Hernandez, TRENCHING MACHINE OPERATOR at 08/10/2022 9:15 AM Version 1 of 1 Problem: TRENCHING MACHINE OPERATOR - Dysphagia Goal: FEES Description: Patient will accept direct p.o. trials during FEES in order to dynamically assess pharyngeal swallow function, determine least restrictive diet level and best goals/plan of care for patient. Outcome: Ongoing Problem: TRENCHING MACHINE OPERATOR - Cognition Goal: Attention Goal 2 Description: Patient will demonstrate ability to utilize trained strategies targeted at maintainingleft attention by completing functional tasks, to task completion, with no more than x3 cues to redirect attention in order to reduce breakdowns in ADLs and other functional, basic tasks. Outcome: Ongoing Goal: Problem Solving Goal 1 Description: Patient will complete basic problem solving tasks in at least 50% of opportunities in their immediate environment to support self-advocacy and independence, given mod-max cues across 2 consecutive sessions by discharge. Outcome: Ongoing Goal: Meticognition Goal 2 Description: Patient will state x2-3 changes in function that impact his/her level of independence,with min prompts, across 1-2 sessions in order to improve insight into deficits, improve safety andimprove level of independence. Outcome: Ongoing Goal: Ongoing Re-assessment Description: Patient will participate in further cognitive-linguistic assessment across 1-2 sessions in order to further pinpoint deficits and continue to determine most appropriate plan of care for patient. Outcome: Ongoing Speech Language Pathologist: BEN Morgan Time In: 914 Time Out: 944 Total Visit Time: 30 minutes Total Treatment Time (skilled, billable minutes): 30 minutes I was assisted by no one for today's session. and I used gloves and facemask in today's patient interaction. Patient location at end of session: bed with head of bed elevated Alarms on at end of session: RN aware and no alarms were changed/manipulated during this patient encounter Needs in reach. Upon discontinuation of Acute Care Speech Therapy Services or patient discharge from the hospital this note represents the current Speech Therapy Discharge Summary * BEN Morgan - 08/10/2022 9:15 AM EST Acute Care TRENCHING MACHINE OPERATOR Speech/Language/Cognitive Evaluation Best mode of Communication: spoken language (regular speech) Discharge Recommendations: Based on the below outcome measures/assessment score(s) and TRENCHING MACHINE OPERATOR clinicaljudgment, discharge destination recommendation is: Pending instumental swallow assessment Supporting factors for discharge setting: Impaired swallow function limiting nutritional status andsafety with oral intake Acute TRENCHING MACHINE OPERATOR Outcomes Tracking Communicate basic wants and needs?: yes Demo insight/appreciation of deficits?: no Complete basic problem solving?: no Current therapy frequency recommendation in acute: Speech/Lang/Cog Therapy Frequency: 3 times a week Swallow Therapy Frequency: 5 times a week Clinical Impression: Camille Dawkins presents with moderate-severe cognitive communication deficit and dysarthria, characterized by deficits in the areas of L attention/neglect, immediate recall, orientation, and deficit awareness s/p acute R MCA CVA. The patient also with significant dysarthria, characterized by imprecise consonants, irregular articulatory breakdowns, reduced vocal intensity consistent with unilateral upper motor neuron dysarthria. These deficits result in functional limitations in ability to complete basic ADLs and communicate wants/needs clearly without breakdown. Patient Instruction/Education this session: Education provided regarding TRENCHING MACHINE OPERATOR role in rehab and rationale for evaluations. Plan for next session: FEES for swallow assessment, initiate cognitive communication goals per planof care. Subjective: Patient is sleepy but participatory with TRENCHING MACHINE OPERATOR treatment/services. Pain: General Pain Documentation (Adult, OB, Peds) Presence of Pain: denies pain/discomfort General Pain Descriptors Pain Radiation To: 7 Lines/Drains/Tubes: Lines/Tubes/Drains (Rehab Status): Telemetry Patient History Comments: Pt is a 62 y.o. female who presents with past medical history of cardiomyopathy, HLD, HTN, migraine, obesity, diabetes (type 2), recent covid, and fib who presented with L facial droop and L arm/leg weakness. OSH head imaging revealed CTA occlusion of proximal M2 branch ofR MCA. She was transferred to this facility for further treatment. She did not receive tPA. She underwent emergent thrombectomy with TICI 2b revascularization and was admitted to NCCU for close neurological monitoring. Prior Level of Function: Independent prior to admission. Previous Level of Function Prior level ADL Overview: Independent with all ADLs Residence: House Lives With: spouse IADL History IADLs: independent Primary Language: Mongolian IADL Comments: still actively working & driving (works for [employer] over seeing safety and compliance). Respiratory Status: Nasal Cannula: respirations easy/unlabored EXPRESSIVE LANGUAGE: Intact RECEPTIVE LANGUAGE: Intact Task: Follow 1-Step Commands Intact (for basic, 1-step commands for oral motor examination) READING: (Not assessed, will continue to assess during future encounters.) WRITING: (Not assessed, will continue to assess during future encounters.) SOCIAL INTERACTION/PRAGMATICS: Impaired Task: Initiates Conversation Intact Takes Turns in Communication Intact Maintains Eye Contact Intact (on right, breakdown secondary to left neglect on left) Maintains Topic Impaired Shifts Topics Appropriately Impaired Affect Intact Responds Appropriately to Questions Intact COGNITION: Impaired Task: Arousal/Alertness Delayed responses to stimuli Orientation Level Oriented to person, Oriented to place, Oriented to time (not oriented to severityof impairments, but aware that she had a stroke) Safety Judgment Decreased awareness of need for safety, Decreased awareness of need for assistance Awareness of Errors Assistance required to identify errors made, Assistance required to correct errors made Deficits Decreased awareness of deficits Attention Span Difficulty dividing attention Memory Decreased short term memory Problem Solving Assistance required to generate solutions CRANIAL NERVE EXAMINATION: Cranial Nerve Exam CN V (Trigeminal) weakness of either masseter or temporal muscles or both (L facial weakness) CN VII (Facial) unilateral or bilateral weakness of upper or lower face or both (L facial weakness,L eye ptosis that family says is baseline?) CN IX (glossopharyngeal) hoarseness (mild) CN X (Vagus) hoarseness (mild) CN XI (Accessory) weak or unequal shoulder shrug CN XII (Hypoglossal) deviation of tongue from midline (slight lingual deviation to the left) MOTOR SPEECH TASKS: Impaired Task: Speech Intelligibility Impaired Saliva Management Impaired VOCAL PARAMETERS: Impaired Task: Vocal Quality hoarse Subjective Voice Evaluation Grade of dysphonia (G): 1 Roughness (R): 1 Breathiness (B): 1 Asthenia (A): 1 Strain (S): 0 TRENCHING MACHINE OPERATOR Outcomes: The Orientation Log (O-Log) is designed to be a quick quantitative measure of orientational status for use at bedside with rehabilitation inpatients. Place, time, and situational (Etiology/Event + Pathology/Deficits) domains are assessed. Patient responses are scored according to the following criteria: 3 = correct spontaneously or upon first free recall attempt; 2 = correct upon logical cueing (e.g., That was yesterday, so today must be ); 1 = correct upon multiple choice or phonemic cuing; and 0 = incorrect despite cueing, inappropriate response, or unable to respond. Total Score: this date. Acute TRENCHING MACHINE OPERATOR Goals Plan of Care by Kamilla Hernandez, TRENCHING MACHINE OPERATOR at 08/10/2022 9:15 AM Version 1 of 1 Problem: TRENCHING MACHINE OPERATOR - Dysphagia Goal: FEES Description: Patient will accept direct p.o. trials during FEES in order to dynamically assess pharyngeal swallow function, determine least restrictive diet level and best goals/plan of care for patient. Outcome: Ongoing Problem: TRENCHING MACHINE OPERATOR - Cognition Goal: Attention Goal 2 Description: Patient will demonstrate ability to utilize trained strategies targeted at maintainingleft attention by completing functional tasks, to task completion, with no more than x3 cues to redirect attention in order to reduce breakdowns in ADLs and other functional, basic tasks. Outcome: Ongoing Goal: Problem Solving Goal 1 Description: Patient will complete basic problem solving tasks in at least 50% of opportunities in their immediate environment to support self-advocacy and independence, given mod-max cues across 2 consecutive sessions by discharge. Outcome: Ongoing Goal: Meticognition Goal 2 Description: Patient will state x2-3 changes in function that impact his/her level of independence,with min prompts, across 1-2 sessions in order to improve insight into deficits, improve safety andimprove level of independence. Outcome: Ongoing Goal: Ongoing Re-assessment Description: Patient will participate in further cognitive-linguistic assessment across 1-2 sessions in order to further pinpoint deficits and continue to determine most appropriate plan of care for patient. Outcome: Ongoing Problem: TRENCHING MACHINE OPERATOR - Motor Speech Goal: Dysarthria Strategy Goal 3 Description: Patient will improve articulatory precision by repeating x1-2 words with trained over articulation strategy across 90% of (at least x20) trials with mod cues over x3-4 sessions. Outcome: Ongoing I was assisted by no one for today's session. and I used gloves and facemask in today's patient interaction. Speech Language Pathologist: BEN Morgan Time In: 914 Time Out: 944 Total Visit Time: 30 minutes Total Treatment Time (skilled, billable minutes): 30 minutes Patient location at end of session: bed with head of bed elevated Alarms on at end of session: RN aware and no alarms were changed/manipulated during this encounter. Needs in reach. Upon discontinuation of Acute Care Speech Therapy Services or patient discharge from the hospital this note represents the current Speech Therapy Discharge Summary * Julienne Pan RD - 08/10/2022 8:28 AM EST NUTRITION ASSESSMENT Nutrition Recommendations and Plan of Care: 1. Diet as appropriate per TRENCHING MACHINE OPERATOR evaluation. - FEES pending. 2. If unable to safely advance diet, recommend obtaining enteral access and starting TF: initiate Nepro at 10 ml/hr; increase by 10 ml every 4 hours to goal rate of 35 ml/hr. - Goal rate will provide 840 mL, 1512 kcal (28 kcal/kg), 68 g PRO (1.2 g pro/kg), 134 g CHO and 611mL free water. - Additional free water flushes per primary team. Recommend minimum 30 mL x 4/day to maintain tube patency. 3. Monitor diet advancement vs TF, bowel function, skin integrity, weight change, lab values. 4. RD to follow. Camille Dawkins is a 62 y.o. female with h/o cardiomyopathy, HLD, HTN, migraine, obesity, DMT2, COVID 07/2022, and afib who presented to outside hospital with left facial weakness, left arm and leg weakness that began when she awoke at 0230 am. Her imagining from the [facility] revealed CTA occlusion of proximal M2 branch of right MCA. Patient was transferred to [facility] for further treatment. Patient went to OR with neurosurgery for thrombectomy TICI 2b and admitted to NCCU for close neurological monitoring. Past History Past medical, surgical, family, and social histories have reviewed and are located elsewhere in themedical record. Nutrition History Pt seen for nutrition screen. Passed [place] swallow screen yesterday but TRENCHING MACHINE OPERATOR still consulted per RN note. Pt was seen by TRENCHING MACHINE OPERATOR this morning and recommended FEES, ordered. Attempted to visit pt at bedsidehowever she was very sleepy and unable to remain awake. Spoke with pt's to obtain nutritionhistory. 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 NKFA. Diet Order Current Diet Orders Procedures DIET NPO WITHOUT meds Until patient passes bedside swallow screen by RN or a Comprehensive Swallow Evaluation by Speech Therapy. Standing Status: Standing Number of Occurrences: 1 Order Specific Question: NPO Meds: Answer: WITHOUT meds Ht: 5' 4/162.6 cm Wt: 195#/88.8 kg BMI: 33.6 kg/(m^2) IBW: 120#/54.5 kg %IBW: 163 Weight history: pt states she lost 28 lb in 1 month d/t prolonged and frequent hospitalizations since beginning of July. Was only home for 1 week. Reports her UBW was 208-210 lb and she weighed 182 lb a week ago, which represented a wt loss of 26 lb (12.5%). Current wt, if accurate, indicates awt loss of 13 lb (6%) in 1 month. Wt Readings from Last 20 Encounters: 08/10/22 88.8 kg (195 lb 12.8 oz) 09/07/22 94.5 kg (207.9 lb) Meds reviewed: Scheduled: aspirin 81 mg Oral QHS Or aspirin 300 mg Rectal QHS atorvastatin 40 mg Oral QHS bismuth subsalicylate 30 mL Oral 4x daily doxycycline monohydrate 100 mg Oral Q12H enoxaparin 40 mg Subcutaneous QHS [Held by provider] furOSEmide 20 mg Oral Daily insulin regular Subcutaneous Q6H metroNIDAZOLE 500 mg Oral Q8H pantoprazole 40 mg Intravenous BID senna 8.6 mg Oral QAM Or senna 8.6 mg Per NG tube QAM Labs reviewed: Na/K+/Phos/Mg/Ca: 137/4.9/6.0/1.7/-- (08/10 219) Bun/Creat/Cl/CO2/Glucose: 46/1.61/105/19/122 (08/10 219) WBC/Hgb/Hct/Plts: 8.80/9.8/32.8/316 (08/10 219) GI: WDL Last BM DAIR[employer] FEED 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 Julienne CASTANEDA, LD, [facility] Pager #[phone] * Susan Sierra APRN-SITE ADMINISTRATOR - 08/10/2022 8:05 AM EST NEUROVASCULAR STROKE SERVICE Daily Progress Note IDENTIFYING INFORMATION Camille Dawkins MR# [id number] 08/10/2022 HISTORY OF PRESENT ILLNESS Camille Dawkins is a 62 y.o. female with PMH significant for HTN, DM, Afib on Eliquis- last dose 08/08 whopresented to an OSH on 08/09 with left sided weakness. LKW 08/08 @ 1999. She was evaluated via telestroke. NIHSS 6. Not a candidate for iv thrombolysis due to Eliquis use. CTA showed R M2 occlusion. She was tras[facility]ferred to [facility] for further care. Upon arrival to [facility], NIHSS was 8. CTP shows 2ml core and 86 ml penumbra she was taken to OR and a TICI 2b revascularization was achieved. INTERVAL HISTORY 08/10: Brain MRI pending. Left arm weakness worse. updated at bedside. PHYSICAL EXAM Gen: awake, alert, NAD HEENT: normocephalic, no scalp lesions or tenderness Neck: trachea midline CV: +S1S2, RRR, no m/r/g Lungs: LCTA bilaterally with equal chest rise Abd: soft, nontender, nondistended, +BS x4 quadrants Extrem: Warm and well perfused, no edema Neuro: Oriented x3, RAM x 3, sensation decreased on left with neglect CN II - All visual rankin intact CN II/III - PERRLA CN III/IV/ - EOMI CN V - Light touch to face intact in V1-3 CN VII - Left facial droop CN VIII - Hearing intact CN X - Cough present CN XI - Left shoulder weakness CN XII - MOTOR EXAMINATION: Left hemiparesis with no antigravity movement in left arm Deltoid Bicep Tricep WE WF Fertilizing Machine Operator DF PF Right 5 5 5 5 5 5 5 5 Left 1 0 0 0 0 0 4 4 NIHSS 08/10/2022 Provider NIH Stroke Scale NIH Interval (Provider): daily NIH Level of Conciousness (Provider): 0 NIH LOC Questions (Provider): 1 NIH LOC Commands (Provider): 0 NIH Best Gaze (Provider): 0 NIH Visual (Provider): 0 NIH Facial Palsy (Provider): 2 NIH Left Arm Motor (Provider): 3 NIH Right Arm Motor (Provider): 0 NIH Left Leg Motor (Provider): 1 NIH Right Leg Motor (Provider): 0 NIH Limb Ataxia (Provider): 0 NIH Sensory (Provider): 1 NIH Best Language (Provider): 0 NIH Dysarthria (Provider): 1 NIH Extinction and Inattention (Provider): 1 NIH Total Score (Provider): 10 ASSESSMENT AND PLAN Neuro: Acute right MCA territory stroke s/p TICI 2b revascularization for right M2 occlusion: CTH: Acute ischemic infarct in the right insula. CTA brain/neck: Right M2 occlusion CTP: Large perfusion mismatch of 86 ml in right MCA territory MRI brain: Pending TTE: Pending LDL 31, A1c 7.5 -Stroke Etiology (TOAST Criteria): Cardio embolic from A fib -Antiplatelet plan: Aspirin 81 mg dialy -Statin therapy: Lipitor 40 mg -Blood Pressure goal: SBP <160 -Agree with repeating head CT given worsening left arm weakness -Will come up with anticoagulation plan after brain MRI completed and when she has a dysphagia plan, currently NPO Ischemic Stroke Core Measures -NIHSS on admission 8 -Patient has been started on Mechanical (SCD's) and Pharmacological (SQ heparin/Lovenox) DVT prophylaxis. -Antiplatelet therapy has been initiated, Aspirin 81 mg daily. -Anticoagulation therapy was indicated for this patient, d/t A fib -Patients LDL 31 and HgbA1c 7.5 were checked and the patient may discharged on Atorvastatin daily. -Dysphagia screening ordered, and will be completed prior to patient receiving oral intake. -Stroke education booklet has been ordered and will be provided by the RN that includes both written and verbal education to the patient and family regarding ischemic strokes. We have reviewed the patient's personal modifiable risk factors including: HTN, A fib, DM as well as education on reducing these risk factors -Patient is being assessed for Rehab by PT/OT/Speech and PM&R if indicated. Disposition: Camille Dawkins will be discharged when medically ready after work up completed. Susan Sierra APRN-SITE ADMINISTRATOR 08/10/2022 12:12 PM VITAL SIGNS Temp: [97.7 F (36.5 C)-98.4 F (36.9 C)] 97.7 F (36.5 C) Pulse (Heart Rate): [91-120] 97 Resp Rate: [17-38] 17 BP: (87-143)/(54-89) 127/84 O2 Sat (%): [88 %-100 %] 98 % Weight: [88.8 kg (195 lb 12.8 oz)] 88.8 kg (195 lb 12.8 oz) Oxygen Therapy: Oxygen Therapy O2 Sat (%): 98 % O2 Device: nasal cannula Flow (L/min): 4 Intake/Output: Intake/Output Summary (Last 24 hours) at 08/10/2022 1212 Last data filed at 08/10/2022 1153 Gross per 24 hour Intake 193.94 ml Output 2150 ml Net -1956.06 ml LABS/CULTURES Lab Results Component Value Date WBC 8.80 08/10/2022 HGB 9.8 (L) 08/10/2022 HCT 32.8 (L) 08/10/2022 PLATELET 316 08/10/2022 MCV 89.1 08/10/2022 Lab Results Component Value Date SODIUM 137 08/10/2022 POTASSIUM 4.9 08/10/2022 CHLORIDE 105 08/10/2022 CO2 19 (L) 08/10/2022 BUN 46 (H) 08/10/2022 CREATSERUM 1.61 (H) 08/10/2022 GLUCOSE 122 (H) 08/10/2022 Lab Results Component Value Date CHOLESTEROL 67 08/10/2022 TRIG 54 08/10/2022 HDL 25 (L) 08/10/2022 LDLCALC 31 08/10/2022 Lab Results Component Value Date HGBA1C 7.5 (H) 08/10/2022 Lab Results Component Value Date ALBUMIN 3.3 (L) 08/10/2022 , No results found for: CPK, TROP IMAGING/DIAGNOSTIC STUDIES MEDICATIONS aspirin 81 mg Oral QHS Or aspirin 300 mg Rectal QHS atorvastatin 40 mg Oral QHS bismuth subsalicylate 30 mL Oral 4x daily doxycycline monohydrate 100 mg Oral Q12H enoxaparin 40 mg Subcutaneous QHS [Held by provider] furOSEmide 20 mg Oral Daily insulin regular Subcutaneous Q6H metroNIDAZOLE 500 mg Oral Q8H pantoprazole 40 mg Intravenous BID senna 8.6 mg Oral QAM Or senna 8.6 mg Per NG tube QAM * Conchita Louise MD - 08/10/2022 7:53 AM EST NEUROCRITICAL CARE HISTORY AND PHYSICAL HOSPITAL VISIT DEMOGRAPHICS Patient: Camille Dawkins Code status: Full Code Admission date: 08/09/2022 7:44 AM Hospital days: LOS: 1 day CHIEF COMPLAINT Left sided weakness HISTORY OF PRESENT ILLNESS Camille Dawkins is a 62 y.o. female with a past history of cardiomyopathy, HLD, HTN, migraine, obesity, DMT2, COVID 07/2022, and afib who presented to outside hospital with left facial weakness, left arm and leg weakness that began when she awoke at 0230 am. LKW was 8 pm 08/08 when she went to bed. Her imagining from the OSH revealed CTA occlusion of proximal M2 branch of right MCA. Patient was transferred to [facility] for further treatment, NIH 8 on arrival. Patient did not receive TPa due to Eliquis last dose last night 08/08/22. CTP with 2ml core and 86ml penumbra. Patient went to OR with neurosurgery for thrombectomy TICI 2b and admitted to NCCU for close neurological monitoring. INTERVAL HISTORY SINCE ADMISSION 08/09/2022: admit to NCCU 08/10: This AM with exam change with inability to lift left arm against gravity; CTH without acute change REVIEW OF SYSTEMS A complete review of systems was negative except for: Neurologic: positive for weakness in extremities HISTORY No past medical history on file. No past surgical history on file. Social History Socioeconomic History Marital status: Spouse name: Not on file Number of children: Not on file Years of education: Not on file Highest education level: Not on file Occupational History Not on file Tobacco Use Smoking status: Not on file Smokeless tobacco: Not on file Substance and Sexual Activity Alcohol use: Not on file Drug use: Not on file Sexual activity: Not on file Other Topics Concern Not on file Social History Narrative Not on file Social Determinants of Health Financial Resource Strain: Not on file Food Insecurity: Not on file Transportation Needs: Not on file Physical Activity: Not on file Stress: Not on file Social Connections: Not on file Intimate Partner Violence: Not on file Housing Stability: Not on file ALLERGIES AND HOME MEDICATIONS Allergies: is allergic to penicillins. Home Medications: Medications Prior to Admission Medication Sig Dispense Refill Last Dose atorvastatin 40 MG tablet Take 40 mg by mouth daily. Bismuth Subsalicylate 262 MG Chew Tab Chew 524 mg 3 (three) times a day. carveDILOL 12.5 MG tablet Take 12.5 mg by mouth 2 times daily with meals. dapagliflozin (Farxiga) 10 MG tablet Take 10 mg by mouth daily. DULoxetine [address] Particles capsule DR Take 30 mg by mouth daily. Eliquis 5 MG tablet Take 5 mg by mouth every 12 hours. furOSEmide 20 MG tablet Take 20 mg by mouth daily. gliMEPIride 4 MG tablet Take 4 mg by mouth daily every morning. insulin glargine 100 UNIT/ML vial Inject 20 Units under the skin At bedtime. Insulin Lispro 100 UNIT/ML vial Inject 4 Units under the skin before meals & at bedtime. losartan 25 MG tablet Take 25 mg by mouth daily. metoprolol succinate 100 MG tablet XL Take 100 mg by mouth daily. metroNIDAZOLE 500 MG tablet Take 500 mg by mouth 3 times daily. mirtazapine 15 MG tablet Take 15 mg by mouth At bedtime. pantoprazole [address] tablet DR Take 40 mg by mouth 2 times daily. spironolactone 25 MG tablet Take 12.5 mg by mouth daily. tetracycline 500 MG capsule Take 500 mg by mouth 4 times daily. 1 hr before or 2 hr after meals, donot take with milk traZODone 100 MG tablet Take 100 mg by mouth At bedtime. Prior to Arrival Meds: Medications Prior to Admission Medication Sig Dispense Refill Last Dose atorvastatin 40 MG tablet Take 40 mg by mouth daily. Bismuth Subsalicylate 262 MG Chew Tab Chew 524 mg 3 (three) times a day. carveDILOL 12.5 MG tablet Take 12.5 mg by mouth 2 times daily with meals. dapagliflozin (Farxiga) 10 MG tablet Take 10 mg by mouth daily. DULoxetine [address] Particles capsule DR Take 30 mg by mouth daily. Eliquis 5 MG tablet Take 5 mg by mouth every 12 hours. furOSEmide 20 MG tablet Take 20 mg by mouth daily. gliMEPIride 4 MG tablet Take 4 mg by mouth daily every morning. insulin glargine 100 UNIT/ML vial Inject 20 Units under the skin At bedtime. Insulin Lispro 100 UNIT/ML vial Inject 4 Units under the skin before meals & at bedtime. losartan 25 MG tablet Take 25 mg by mouth daily. metoprolol succinate 100 MG tablet XL Take 100 mg by mouth daily. metroNIDAZOLE 500 MG tablet Take 500 mg by mouth 3 times daily. mirtazapine 15 MG tablet Take 15 mg by mouth At bedtime. pantoprazole [address] tablet DR Take 40 mg by mouth 2 times daily. spironolactone 25 MG tablet Take 12.5 mg by mouth daily. tetracycline 500 MG capsule Take 500 mg by mouth 4 times daily. 1 hr before or 2 hr after meals, donot take with milk traZODone 100 MG tablet Take 100 mg by mouth At bedtime. Hospital Medications: Infusions: sodium chloride 0.9% Stopped (08/09/22 6847) Scheduled: aspirin 81 mg Oral QHS Or aspirin 300 mg Rectal QHS atorvastatin 40 mg Oral QHS bismuth subsalicylate 30 mL Oral 4x daily doxycycline monohydrate 100 mg Oral Q12H enoxaparin 40 mg Subcutaneous QHS furOSEmide 20 mg Oral Daily insulin regular Subcutaneous Q6H metroNIDAZOLE 500 mg Oral Q8H pantoprazole 40 mg Oral BID senna 8.6 mg Oral QAM Or senna 8.6 mg Per NG tube QAM PRN: acetaminophen OR acetaminophen OR acetaminophen OR acetaminophen, albuterol, bismuth subsalicylate, Calcium Gluconate OR calcium gluconate IVPB, insulin regular AND BLOOD GLUCOSE (POC DEVICE) AND BLOOD GLUCOSE (POC DEVICE) AND COMMUNICATION ORDER FOR NURSING CARE: For Blood Glucose LESS THAN 80 mg/dl AND dextrose AND glucose AND NOTIFY PHYSICIAN, BloodGlucose LESS THAN 80 mg/dl, labetalol, Magnesium Sulfate IVPB, polyethylene glycol OR polyethylene glycol, potassium chloride OR potassium chloride OR Potassium Bicarb-Citric Acid OR potassium chloride, Sodium Phosphate IVPB OR Sodium Phosphate IVPB PHYSICAL EXAM GENERAL: Alert, no acute distress CARDIO: +S1S2, no m/r/g, Tele Afib PULM: wheezing throughout equal chest rise and fall. ABDOMINAL: soft, nontender, nondistended, active bowel sounds x 4 NEURO: Mental status: alert; oriented to person, place, year, and month; good attention Speech/language: dysarthria Cranial nerves: CN II: Visual rankin intact to confrontation. 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 No nystagmus. CN V: Facial sensation intact to light touch. CN VII: left facial droop CN VIII: Hearing is grossly intact. CN IX and X: Soft palate elevates symmetrically in the midline CN XI: Shoulder shrug asymmetric R>L CN XII: Tongue is midline with normal movement; no fasciculations Motor: Normal bulk and tone. LUE without antigravity RUE/BLE 5/5 UE Sensation: Extremity sensation intact throughout. Coordination: No ataxia . Blood pressure 109/64, pulse 99, temperature 98.4 F (36.9 C), temperature source Oral, resp. rate 17, height 1.626 m (5' 4), weight 88.8 kg (195 lb 12.8 oz), SpO2 97 %. ASSESSMENT AND PLAN Neuro: (08/09/2022) 1 Day Post-Op Right MCA ischemic stroke s/p thrombectomy TICI 2b - Initial CVA Management: - Stroke alert performed; summary of imaging findings: occlusion proximal M2 branch of right MCA - tPA Not given>Eliquis last dose 08/08 evening - 08/09 NSGY consulted for thrombectomy, performed and obtained TICI 2b revascularization - Ongoing CVA management: - Monitor neurostatus with neurochecks Q1H and pupilometer Q1H - Prevent cerebral hypoperfusion with goal SBP <160 (see cards) - Imaging: -CTA (OSH): occlusion proximal M2 branch of the right MCA - Concern for exam change on 08/10, CTH stable - MRI B: pending -antiplatelet therapy: Asa 81 - Daily NIHSS: NIH Stroke Scale: NIH Level of Conciousness (Provider): 0 NIH LOC Questions (Provider): 0 NIH LOC Commands (Provider): 0 NIH Best Gaze (Provider): 0 NIH Visual (Provider): 0 NIH Facial Palsy (Provider): 2 NIH Left Arm Motor (Provider): 2 NIH Right Arm Motor (Provider): 0 NIH Left Leg Motor (Provider): 0 NIH Right Leg Motor (Provider): 0 NIH Limb Ataxia (Provider): 0 NIH Sensory (Provider): 0 NIH Best Language (Provider): 0 NIH Dysarthria (Provider): 1 NIH Extinction and Inattention (Provider): 0 NIH Total Score (Provider): 5 - Cytotoxic Cerebral Edema Management: - Goal Na 135 - 145 monitor Na daily Recent Labs 08/09/22 0947 08/10/22 0219 SODIUM 131* 137 OSMOLALITY 294 302 CHLORIDE 101 105 - Stroke etiology presumed to be cardioembolic based on the TOAST Criteria. Stroke risk factors include atrial fib., hypercholesterolemia and hypertension. - TTE pending - LDL level 31, home atorvastatin 40 mg initiated - HA1C level 7.5 - Initiate antiplatelet therapy ASA - VTE prophylaxis with enoxaparin - Pain/Sedation management - Tylenol 650mg Q4H PRN Pulm: Atelectasis - Goal SpO2 >92% -KSN1YSN, encourage pulmonary toileting -CXR: linear atelectasis Wheezing -CXR with linear atelectasis -albuterol prn -continue home lasix 20 mg daily Cards: Essential HTN HLD Atrial Fibrillation Temp: [97 F (36.1 C)-98.4 F (36.9 C)] 98.4 F (36.9 C) Pulse (Heart Rate): [91-120] 99 Resp Rate: [17-38] 17 BP: (87-143)/(52-89) 109/64 O2 Sat (%): [81 %-98 %] 97 % Weight: [88.8 kg (195 lb 12.8 oz)-93.8 kg (206 lb 12.7 oz)] 88.8 kg (195 lb 12.8 oz) - Goal SBP <160, MAP >65 - Home antihypertensives: carvedilol 12.5, losartan 25, metoprolol succinate 100, spironolactone 25, all held at this time - PRN labetalol and hydralazine -TTE: pending -08/09 ECG: Afib QTc 482 -LDL 31 -continue home atorvastatin 40 mg daily Renal/: CKD - Fluid Balance: - Goal: euvolemia - Net -1.2 L/24H, -1.2 L/admission - UOP 1.3 L/24H - External catheter - Daily Chem 10; electrolytes replaced per NCCU protocol - hold home lasix tomorrow as BP today 109/64 Recent Labs 08/09/22 0947 08/10/22 0219 SODIUM 131* 137 POTASSIUM 5.0 4.9 CHLORIDE 101 105 CO2 19* 19* BUN 49* 46* CREATSERUM 1.64* 1.61* MAGNESIUM 1.7 1.7 PHOSPHORUS 6.7* 6.0* ICA 4.32* 3.56* GI/Nutrition: -will order diet when able to sit up. - NPO, on tube feeds - Body mass index is 33.61 kg/m . 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) - Senna, miralax Endo: DM Type 2 - Goal blood glucose 140-180 Recent Labs 08/09/22 1739 08/09/22 1801 08/09/22 2354 08/10/22 0219 GLUCOSE 76 103* 75 122* HGBA1C -- -- -- 7.5* - Insulin SSI: Q6H ID: Hx H-pylori - Temp (24hrs), Av.8 F (36.6 C), Min:97 F (36.1 C), Max:98.4 F (36.9 C) - PRN Tylenol for T>100.4F -continue H-pylori treatment need 2 days> doxycyline monohydrate, metronidazole, and bismuth subsalicylate Heme/Onc: CBC Lab Results Component Value Date WBC 8.80 08/10/2022 HGB 9.8 (L) 08/10/2022 HCT 32.8 (L) 08/10/2022 PLATELET 316 08/10/2022 MCV 89.1 08/10/2022 EDIF Lab Results Component Value Date RBCDISTRIBU 18.2 (H) 08/10/2022 PLATELET 316 08/10/2022 MPV 10.0 08/10/2022 - Goal plt >100, INR <1.4, Hgb >7 - OR EBL: minimal Musc: - PT/OT consulted and following - Current Activity Order: flat for 12 hours Social/Dispo: - Code status: Full Code - Primary Emergency Contact: Dominic Gardiner - HCPOA/LNOK: Dominic -08/09 Last updated at bedside - Medications reconciled - Discharge planning per PCRM/SW. ICU Checklist: [ ] CAM-ICU [ ] SAT [ ] SBT [ ] DVT ppx; [ x] SCDs; [ x] Lovenox, [ ] heparin [ ] Stress ulcer prophylaxis: - Lines/Tubes: No lines or tubes Discussed with NCCU Attending, Dr. Yariel Louise MD Pager [phone] 08/10/22 8:09 AM Associated attestation - Sera Saldivar MD - 08/10/2022 6:15 PM EST I agree with the note as written above by the resident. I personally evaluated the data, examined the patient on 08/10/2022 and constructed the management plan with the multidisciplinary team and by signing this note I certify such was performed by me. The patient is critically ill due to R MCA stroke S/P thrombectomy requiring close neurological andhemodynamic monitoring in the NCCU. Critical care time spent is 32 minutes. Worsening left arm weakness. Otherwise exam is stable. Repeat Ct head shows evolving stroke involving the motor strip likely responsible for the weakness. Brain MRI is pending. Attempt fluid bolus to raise blood pressure to see whether it improves the examination. * Roscoe Carlos RP - 08/09/2022 10:49 AM EST Department of Pharmacy Admission Medication Reconciliation Note Patient: Camille Dawkins Room/Bed: [facility] [place]/A The patient's allergies have been reviewed with Patient's family member/caregiver (), and I have reviewed the patient's home medication list with the following sources [employer] records and Patient's family member/caregiver (). I have also reviewed this list with the medical team. All changes to the home medication list have been updated in [facility]. Updated [employer] Med List: Prior to Admission Medications Prescriptions Bismuth Subsalicylate 262 MG Chew Tab Sig: Chew 524 mg 3 (three) times a day. DULoxetine [address] Particles capsule DR Sig: Take 30 mg by mouth daily. Eliquis 5 MG tablet Sig: Take 5 mg by mouth every 12 hours. Insulin Lispro 100 UNIT/ML vial Sig: Inject 4 Units under the skin before meals & at bedtime. atorvastatin 40 MG tablet Sig: Take 40 mg by mouth daily. carveDILOL 12.5 MG tablet Sig: Take 12.5 mg by mouth 2 times daily with meals. dapagliflozin (Farxiga) 10 MG tablet Sig: Take 10 mg by mouth daily. furOSEmide 20 MG tablet Sig: Take 20 mg by mouth daily. gliMEPIride 4 MG tablet Sig: Take 4 mg by mouth daily every morning. insulin glargine 100 UNIT/ML vial Sig: Inject 20 Units under the skin At bedtime. losartan 25 MG tablet Sig: Take 25 mg by mouth daily. metoprolol succinate 100 MG tablet XL Sig: Take 100 mg by mouth daily. metroNIDAZOLE 500 MG tablet Sig: Take 500 mg by mouth 3 times daily. mirtazapine 15 MG tablet Sig: Take 15 mg by mouth At bedtime. pantoprazole [address] tablet DR Sig: Take 40 mg by mouth 2 times daily. spironolactone 25 MG tablet Sig: Take 12.5 mg by mouth daily. tetracycline 500 MG capsule Sig: Take 500 mg by mouth 4 times daily. 1 hr before or 2 hr after meals, do not take with milk traZODone 100 MG tablet Sig: Take 100 mg by mouth At bedtime. Facility-Administered Medications: None Added to Home Medications: All of the above medications were added. Other Comments: Reported PCN allergy but unknown what the reaction was Please feel free to contact me with any further questions. Name: Roscoe Carlos RPH Phone #: [phone] Date/Time: 08/09/2022 10:50 AM Time Spent: 45 minutes * Sera Saldivar MD - 08/09/2022 10:30 AM EST The patient was seen and examined on 08/09/2022. The plan was formulated on the same day. Please refer to the FELICE note for additional details. Admitted for stroke due to R M2 superior occlusion S/P thrombectomy TICI 2A. Exam: left sided weakness (arm is against gravity). Right gaze preference Slurred speech. Plan: Neurological: Stroke R M2 occlusion S/P thrombectomy SBP < 160 Close neurological monitoring Stroke workup. Likely cardioembolic in etiology. Respiratory: Wheezing CXR On home lasix. Cardiology: TTE A fib: on Apixaban. The patient is critically ill due to acute ischemic stroke S/P thrombectomy requiring close neurological and hemodynamic monitoring in the NCCU. Critical care time spent is 32 minutes. [facility] Miscellaneous Notes* Nursing Notes - Kamilla Monson RN - 08/20/2022 12:22 PM EST Stroke patient education has been reviewed and all required elements are complete and personalized. Care plan documentation complete and patient adequate for discharge. * Plan of Care - Maricarmen Xie RN - 08/20/2022 12:10 PM EST Problem: Patient Care Overview Goal: Plan of Care Review Outcome: Adequate for Discharge Goal: Individualization & Mutuality Outcome: Adequate for Discharge Goal: Discharge Needs Assessment Outcome: Adequate for Discharge Goal: Interdisciplinary Rounds/Family Conf Outcome: Adequate for Discharge Problem: Stroke (Ischemic) (Adult) Goal: Signs and Symptoms of Listed Potential Problems Will be Absent, Minimized or Managed (Stroke) Description: Signs and symptoms of listed potential problems will be absent, minimized or managed by discharge/transition of care (reference Stroke (Ischemic) (Adult) CPG). Outcome: Adequate for Discharge Problem: Dysphagia (Adult) Goal: Identify Related Risk Factors and Signs and Symptoms Description: Related risk factors and signs and symptoms are identified upon initiation of Human Response Clinical Practice Guideline (CPG) Outcome: Adequate for Discharge Goal: Functional/Safe Swallow Description: Patient will demonstrate the desired outcomes by discharge/transition of care. Outcome: Adequate for Discharge Goal: Compensatory Techniques to Improve Safety/Function with Swallowing Description: Patient will demonstrate the desired outcomes by discharge/transition of care. 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 Outcome: Adequate for Discharge Goal: Problem Solving Goal 1 Description: Patient will complete basic problem solving tasks in at least 50% of opportunities in their immediate environment to support self-advocacy and independence, given mod-max cues across 2 consecutive sessions by discharge. Outcome: Adequate for Discharge Goal: Alertness Goal Description: Patient will participate in further cognitive-linguistic assessment across 1-2 sessions in order to further pinpoint deficits and continue to determine most appropriate plan of care for patient. Outcome: Adequate for Discharge Problem: OT - Dressing Goal: Upper Body Dressing Description: Pt will complete UE dressing task Edge of bed with standby assistance for improved ability to complete self-care activities. Outcome: Adequate for Discharge Problem: OT - ADLs Goal: Grooming Description: Pt will complete grooming Edge of bed with standby assistance for improved ability to safely complete ADLs. Outcome: Adequate for Discharge Problem: OT - Visual Scanning Goal: Visual Tracking Description: Pt will track past midline to left 6 completions during session with 20 % cues, to attend to familiar object/person for ADL participation. Outcome: Adequate for Discharge Problem: OT - Cognition Goal: Cognition simple ADL Description: Pt will demonstrate improved cognition, completing simple ADL task for 10 minutes with2 cues required to maintain attention, for improved safety and success at discharge destination. Outcome: Adequate for Discharge Problem: OT - Strength/ROM Goal: Neuro Re-education Description: Pt will participate in neuro re-ed of (LUE) to improve strength by 2 muscle grades in each group, for improved use in ADLs. 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 Outcome: Adequate for Discharge Problem: PT - Mobility Goal: Ambulation Description: Pt will ambulate 150 feet with out an assistive device with minimal assistance to improve ability to navigate home environment. Outcome: Adequate for Discharge Problem: OT - Balance Goal: Balance - Standing Description: Pt will perform 6-8 minutes of functional ADL task in standing with contact guard assistance and balance level of contact guard to promote safety and improved balance required for self-care activities. Outcome: Adequate for Discharge Problem: OT - Transfers Goal: Transfers Sit -> Stand Description: Pt will demonstrate good safety awareness during sit to/from stand functional transferwith [facility] and least restrictive device for improved safety and success at recommended discharge destination. Outcome: Adequate for Discharge Problem: PT - Balance/Coordination/Neuro Re-Education Goal: Standing Dynamic/Static Balance Description: Pt will perform standing balance tasks with contact guard assistance with least restrictive device in order to improve functional mobility and safety with standing tasks. Outcome: Adequate for Discharge Problem: PT - Transfers Goal: Supine <-> Sit Description: Pt will perform bed mobility with flat bed & no rail with minimal assistance in order to improve functional mobility and safety. Outcome: Adequate for Discharge Goal: Stand-Pivot Description: Pt will perform stand/pivot transfer to/from bed/chair/commode with minimal assistancewith least restrictive device in order to improve functional mobility and safety. Outcome: Adequate for Discharge Goal: Sit <-> Stand Description: Pt will perform sit to/from stand transfers with minimal assistance with least restrictive device in order to improve functional mobility and safety. Outcome: Adequate for Discharge * Plan of Care - Gagan Lay PT - 08/20/2022 10:26 AM EST Problem: PT - Mobility Goal: Ambulation Description: Pt will ambulate 150 feet with out an assistive device with minimal assistance to improve ability to navigate home environment. Outcome: Ongoing Problem: PT - Balance/Coordination/Neuro Re-Education Goal: Standing Dynamic/Static Balance Description: Pt will perform standing balance tasks with contact guard assistance with least restrictive device in order to improve functional mobility and safety with standing tasks. Outcome: Ongoing Problem: PT - Transfers Goal: Supine <-> Sit Description: Pt will perform bed mobility with flat bed & no rail with minimal assistance in order to improve functional mobility and safety. Outcome: Ongoing Goal: Sit <-> Stand Description: Pt will perform sit to/from stand transfers with minimal assistance with least restrictive device in order to improve functional mobility and safety. Outcome: Ongoing * Plan of Care - Ozzy Live RN - 08/20/2022 12:54 AM EST Problem: Patient Care Overview Goal: Plan of Care Review Outcome: Progressing Toward Goal Goal: Individualization & Mutuality Outcome: Progressing Toward Goal Goal: Discharge Needs Assessment Outcome: Progressing Toward Goal Goal: Interdisciplinary Rounds/Family Conf Outcome: Progressing Toward Goal Problem: Stroke (Ischemic) (Adult) Goal: Signs and Symptoms of Listed Potential Problems Will be Absent, Minimized or Managed (Stroke) Description: Signs and symptoms of listed potential problems will be absent, minimized or managed by discharge/transition of care (reference Stroke (Ischemic) (Adult) CPG). Outcome: Progressing Toward Goal Problem: Dysphagia (Adult) Goal: Identify Related Risk Factors and Signs and Symptoms Description: Related risk factors and signs and symptoms are identified upon initiation of Human Response Clinical Practice Guideline (CPG) Outcome: Progressing Toward Goal Goal: Compensatory Techniques to Improve Safety/Function with Swallowing Description: Patient will demonstrate the desired outcomes by discharge/transition of care. Outcome: Progressing Toward Goal * Plan of Care - VINCENZO Quinones - 08/19/2022 9:49 AM EST Nutrition Plan of Care: 1. Continue current diet order. 2. Will provide chocolate Glucerna (220 kcal, 10 g PRO each) twice daily with Breakfast and Dinner to promote good po intake and promote healing. 3. Monitor for significant weight changes. 4. Monitor and encourage po intakes with goal of average po being 75-100%. 5. linen tech to follow. * Plan of Care - Bettina Figueroa OT - 08/19/2022 9:38 AM EST Problem: OT - ADLs Goal: Grooming Description: Pt will complete grooming Edge of bed with standby assistance for improved ability to safely complete ADLs. Outcome: Progressing Toward Goal Problem: OT - Visual Scanning Goal: Visual Tracking Description: Pt will track past midline to left 6 completions during session with 20 % cues, to attend to familiar object/person for ADL participation. Outcome: Progressing Toward Goal Problem: OT - Cognition Goal: Cognition simple ADL Description: Pt will demonstrate improved cognition, completing simple ADL task for 10 minutes with2 cues required to maintain attention, for improved safety and success at discharge destination. Outcome: Progressing Toward Goal Problem: OT - Strength/ROM Goal: Neuro Re-education Description: Pt will participate in neuro re-ed of (LUE) to improve strength by 2 muscle grades in each group, for improved use in ADLs. Outcome: Progressing Toward Goal Problem: OT - Balance Goal: Balance - Standing Description: Pt will perform 6-8 minutes of functional ADL task in standing with contact guard assistance and balance level of contact guard to promote safety and improved balance required for self-care activities. Outcome: Progressing Toward Goal Problem: OT - Transfers Goal: Transfers Sit -> Stand Description: Pt will demonstrate good safety awareness during sit to/from stand functional transferwith CGA and least restrictive device for improved safety and success at recommended discharge destination. Outcome: Progressing Toward Goal * Plan of Igor - Gagan Lay PT - 08/19/2022 9:07 AM EST Problem: PT - Mobility Goal: Ambulation Description: Pt will ambulate 150 feet with out an assistive device with minimal assistance to improve ability to navigate home environment. Outcome: Progressing Toward Goal Problem: PT - Balance/Coordination/Neuro Re-Education Goal: Standing Dynamic/Static Balance Description: Pt will perform standing balance tasks with contact guard assistance with least restrictive device in order to improve functional mobility and safety with standing tasks. Outcome: Progressing Toward Goal Problem: PT - Transfers Goal: Supine <-> Sit Description: Pt will perform bed mobility with flat bed & no rail with minimal assistance in order to improve functional mobility and safety. Outcome: Progressing Toward Goal Goal: Stand-Pivot Description: Pt will perform stand/pivot transfer to/from bed/chair/commode with minimal assistancewith least restrictive device in order to improve functional mobility and safety. Outcome: Progressing Toward Goal Goal: Sit <-> Stand Description: Pt will perform sit to/from stand transfers with minimal assistance with least restrictive device in order to improve functional mobility and safety. Outcome: Progressing Toward Goal * Plan of Igor - Ozzy Live RN - 08/19/2022 3:45 AM EST Problem: Stroke (Ischemic) (Adult) Goal: Signs and Symptoms of Listed Potential Problems Will be Absent, Minimized or Managed (Stroke) Description: Signs and symptoms of listed potential problems will be absent, minimized or managed by discharge/transition of care (reference Stroke (Ischemic) (Adult) CPG). Outcome: Ongoing Problem: Patient Care Overview Goal: Plan of Care Review Outcome: Progressing Toward Goal Goal: Individualization & Mutuality Outcome: Progressing Toward Goal Goal: Discharge Needs Assessment Outcome: Progressing Toward Goal Goal: Interdisciplinary Rounds/Family Conf Outcome: Progressing Toward Goal Problem: Dysphagia (Adult) Goal: Identify Related Risk Factors and Signs and Symptoms Description: Related risk factors and signs and symptoms are identified upon initiation of Human Response Clinical Practice Guideline (CPG) Outcome: Progressing Toward Goal Goal: Compensatory Techniques to Improve Safety/Function with Swallowing Description: Patient will demonstrate the desired outcomes by discharge/transition of care. Outcome: Progressing Toward Goal * Nursing Notes - Ozzy Live RN - 08/18/2022 11:40 PM EST This RN attempted to apply nocturnal CPAP on patient but CPAP machine is not in the room. This RN last saw machine in the room at 0630 on 08/18. Alpesh Temple RCP notified. * Plan of Care - Lupe Valdez RCP - 08/18/2022 1:18 PM EST Camille Dawkins is a 62 y.o. female with a past medical history of: No past medical history on file. Past Surgical History: Procedure Laterality Date THROMBECTOMY MECHANICAL/INFUSION FOR THROMBOLYSIS INTRACRANIAL ARTERY Right 08/09/2022 Laterality: Right; Surgeon: Ángel Patel MD, PhD; Location: [facility] MAIN OR Social History Tobacco Use Smoking status: Not on file Smokeless tobacco: Not on file Substance Use Topics Alcohol use: Not on file Full Code No active isolations Recent Vitals: Blood pressure 113/74, pulse 105, temperature 97.9 F (36.6 C), temperature source Oral, resp. rate 21, height 1.626 m (5' 4.02), weight 92.1 kg (203 lb 0.7 oz), SpO2 92 %. Recent ABG/VBG: Home Medications: Prior to Admission Medications Prescriptions Last Dose Informant Patient Reported? Taking? Bismuth Subsalicylate 262 MG Chew Tab Yes No Sig: Chew 524 mg 3 (three) times a day. DULoxetine [address] Particles capsule DR Yes No Sig: Take 30 mg by mouth daily. Eliquis 5 MG tablet Yes No Sig: Take 5 mg by mouth every 12 hours. Insulin Lispro 100 UNIT/ML vial Yes No Sig: Inject 4 Units under the skin before meals & at bedtime. atorvastatin 40 MG tablet Yes No Sig: Take 40 mg by mouth daily. dapagliflozin (Farxiga) 10 MG tablet Yes No Sig: Take 10 mg by mouth daily. furOSEmide 20 MG tablet Yes No Sig: Take 20 mg by mouth daily. gliMEPIride 4 MG tablet Yes No Sig: Take 4 mg by mouth daily every morning. insulin glargine 100 UNIT/ML vial Yes No Sig: Inject 20 Units under the skin At bedtime. losartan 25 MG tablet Yes No Sig: Take 25 mg by mouth daily. metoprolol succinate 100 MG tablet XL Yes No Sig: Take 100 mg by mouth daily. metroNIDAZOLE 500 MG tablet Yes No Sig: Take 500 mg by mouth 3 times daily. mirtazapine 15 MG tablet Yes No Sig: Take 15 mg by mouth At bedtime. pantoprazole [address] tablet DR Yes No Sig: Take 40 mg by mouth 2 times daily. spironolactone 25 MG tablet Yes No Sig: Take 12.5 mg by mouth daily. tetracycline 500 MG capsule Yes No Sig: Take 500 mg by mouth 4 times daily. 1 hr before or 2 hr after meals, do not take with milk traZODone 100 MG tablet Yes No Sig: Take 100 mg by mouth At bedtime. Facility-Administered Medications: None Breath Sounds: diminished Current Orders: Albuterol prn Rx Indication: wheezes Respiratory Plan of Care: Albuterol prn The patients respiratory plan of care was updated by Lupe Valdez RCP 08/18/2022 1:19 PM * Nursing Notes - Sandra Cantu RN - 08/18/2022 1:15 PM EST Images from the original note were not included. WOC/ET Nursing Consult/Evaluation Note Evaluated Camille Dawkins for suspected pressure Description of wound: Sacrococcygeal- pink, blanchable and intact. Bilateral heels- pink, blanchable, intact. Dry. Recommendation: Recommend continued pressure reduction techniques including frequent repositioning, minimizing elevation of the head of the bed, and encouraging patient to be out of bed as much as possible (use pressure reducing wheelchair cushion when sitting in chair). Optimize nutrition to improve skin and wound outcomes. Increase protein intake as tolerated. Consider supplemental zinc, vitamin C (or multivitamin) to promote wound healing. Continue STAND Skin Bundle Score on Luis Scale If Luis ?18 , the skin bundle should be implemented in full, unless contraindicated If Luis ? 12 , Consult WOC team for High Risk for skin breakdown Turn, Offload and Reposition tubes and devices Turns are documented properly in IHIS Tubes and devices are checked and not under pt Apply Barrier Cream (incontinent pts) or Foam dressing (continent pts) Pt is incontinent, Apply Critic-Aid Clear Moisture Barrier Ointment BID or as directed by /JIGNESH Pt is continent, Lift back one corner of the bordered foam dressing, inspect the skin, and then reposition the dressing over bony prominence. Nutritional Intervention Encourage 2-4 ounces of nutrition supplement 3-4 times a day. Typically this should occur with medication administration Chart type of supplement and volume consumed in I/O flowsheet Discuss with Specialist Place a consult in EPIC for the WOCN if Luis Score is ? 12 ( high or severe risk) Discuss with REAL ESTATE BRANCH MANAGER or Unit Skin [place] The STAND skin bundle is an evidence-based prevention bundle designed to prevent pressure injuries in patients who are at risk for developing a pressure-related injury. For more information related to STAND Skin Bundle: [email or web address] See image(s) below: Luis Skin Assessment: Luis Risk Assessment Sensory Perception: 3-->slightly limited Moisture: 3-->occasionally moist Activity: 2-->chairfast Mobility: 3-->slightly limited Nutrition: 2-->probably inadequate Friction and Shear: 2-->potential problem Luis Score: 15 Luis Score: Luis Score: 15 Body mass index is 34.83 kg/m . Total time spent in assessment and treatment of patient: 30 minutes spent providing patient care. LABS: Albumin Date Value Ref Range Status 08/10/2022 3.3 (L) 3.5 - 5.0 g/dL Final No results found for: PREALBUMIN No past medical history on file. Past Surgical History: Procedure Laterality Date THROMBECTOMY MECHANICAL/INFUSION FOR THROMBOLYSIS INTRACRANIAL ARTERY Right 08/09/2022 Laterality: Right; Surgeon: Ángel Patel MD, PhD; Location: [facility] MAIN OR Wound Documentation: 08/18/22 1300 Plan Problem other (see comments) Current Plan other (specify) (stand bundle) WOCT Visit Frequency PRN Last Date Seen 08/18/22 RN notified of assessment and plan. Please page #[phone] or reconsult with any further needs. * Plan of Care - Jenn Suazo PT - 08/18/2022 10:58 AM EST Problem: PT - Mobility Goal: Ambulation Description: Pt will ambulate 150 feet with out an assistive device with minimal assistance to improve ability to navigate home environment. Outcome: Progressing Toward Goal Problem: PT - Balance/Coordination/Neuro Re-Education Goal: Standing Dynamic/Static Balance Description: Pt will perform standing balance tasks with contact guard assistance with least restrictive device in order to improve functional mobility and safety with standing tasks. Outcome: Progressing Toward Goal Problem: PT - Transfers Goal: Stand-Pivot Description: Pt will perform stand/pivot transfer to/from bed/chair/commode with minimal assistancewith least restrictive device in order to improve functional mobility and safety. Outcome: Progressing Toward Goal Goal: Sit <-> Stand Description: Pt will perform sit to/from stand transfers with minimal assistance with least restrictive device in order to improve functional mobility and safety. Outcome: Progressing Toward Goal * Plan of Care - Yasemin Cardenas OT - 08/18/2022 10:53 AM EST Problem: OT - Visual Scanning Goal: Visual Tracking Description: Pt will track past midline to left 6 completions during session with 20 % cues, to attend to familiar object/person for ADL participation. Outcome: Ongoing Problem: OT - Cognition Goal: Cognition simple ADL Description: Pt will demonstrate improved cognition, completing simple ADL task for 10 minutes with2 cues required to maintain attention, for improved safety and success at discharge destination. Outcome: Ongoing Problem: OT - Strength/ROM Goal: Neuro Re-education Description: Pt will participate in neuro re-ed of (LUE) to improve strength by 2 muscle grades in each group, for improved use in ADLs. Outcome: Ongoing Problem: OT - Balance Goal: Balance - Standing Description: Pt will perform 6-8 minutes of functional ADL task in standing with contact guard assistance and balance level of contact guard to promote safety and improved balance required for self-care activities. Outcome: Ongoing Problem: OT - Transfers Goal: Transfers Sit -> Stand Description: Pt will demonstrate good safety awareness during sit to/from stand functional transferwith CGA and least restrictive device for improved safety and success at recommended discharge destination. Outcome: Ongoing * Plan of Care - BEN Morgan - 08/18/2022 8:45 AM EST Problem: TRENCHING MACHINE OPERATOR - Dysphagia Goal: PO Trial 3 Description: Patient will swallow 5-8 trials of regular solids demonstrating timely/effective mastication, bolus formation and oral bolus transit without overt clinical signs/symptoms of aspiration, across 1-2 sessions to determine readiness for diet advancement. Outcome: Ongoing * Plan of Care - Ozzy Live RN - 08/18/2022 4:05 AM EST Problem: Patient Care Overview Goal: Plan of Care Review Outcome: Ongoing Goal: Individualization & Mutuality Outcome: Ongoing Goal: Discharge Needs Assessment Outcome: Ongoing Goal: Interdisciplinary Rounds/Family Conf Outcome: Ongoing Problem: Stroke (Ischemic) (Adult) Goal: Signs and Symptoms of Listed Potential Problems Will be Absent, Minimized or Managed (Stroke) Description: Signs and symptoms of listed potential problems will be absent, minimized or managed by discharge/transition of care (reference Stroke (Ischemic) (Adult) CPG). Outcome: Ongoing * Plan of Care - Yasemin Cardenas OT - 08/17/2022 2:47 PM EST Problem: OT - Visual Scanning Goal: Visual Tracking Description: Pt will track past midline to left 6 completions during session with 20 % cues, to attend to familiar object/person for ADL participation. Outcome: Ongoing Problem: OT - Cognition Goal: Cognition simple ADL Description: Pt will demonstrate improved cognition, completing simple ADL task for 10 minutes with2 cues required to maintain attention, for improved safety and success at discharge destination. Outcome: Ongoing Problem: OT - Strength/ROM Goal: Neuro Re-education Description: Pt will participate in neuro re-ed of (LUE) to improve strength by 2 muscle grades in each group, for improved use in ADLs. Outcome: Ongoing Problem: OT - Balance Goal: Balance - Standing Description: Pt will perform 6-8 minutes of functional ADL task in standing with contact guard assistance and balance level of contact guard to promote safety and improved balance required for self-care activities. Outcome: Ongoing Problem: OT - Transfers Goal: Transfers Sit -> Stand Description: Pt will demonstrate good safety awareness during sit to/from stand functional transferwith CGA and least restrictive device for improved safety and success at recommended discharge destination. Outcome: Ongoing Problem: OT - Balance Goal: Balance - Standing Description: Pt will perform 4-5 minutes of functional ADL task in standing with moderate assistance and balance level of moderate assist to promote safety and improved balance required for self-careactivities. 08/17/2022 1448 by Yasemin Cardenas OT Outcome: Completed 08/17/2022 1448 by Yasemin Cardenas OT Outcome: Met This Shift Problem: OT - Transfers Goal: Transfers Sit -> Stand Description: Pt will demonstrate good safety awareness during sit to/from stand functional transferwith moderate assistance and least restrictive device for improved safety and success at recommended discharge destination. 08/17/2022 1448 by Yasemin Cardenas OT Outcome: Completed 08/17/2022 1448 by Yasemin Cardenas OT Outcome: Met This Shift * Plan of Care - Jenn Suazo, PT - 08/17/2022 2:43 PM EST Problem: PT - Balance/Coordination/Neuro Re-Education Goal: Sitting Dynamic/Static Balance Description: Pt will perform seated balance tasks for 8 minutes with standby assistance with trunk in midline position, UE support level to improve safety with seated tasks. Outcome: Completed Problem: PT - Transfers Goal: Supine <-> Sit Description: Pt will perform bed mobility with flat bed & no rail with moderate assistance in order to improve functional mobility and safety. Outcome: Completed Goal: Sit <-> Stand Description: Pt will perform sit to/from stand transfers with maximal assistance in order to improve functional mobility and safety. Outcome: Completed Goal: Stand-Pivot Description: Pt will perform stand/pivot transfer to/from bed/chair/commode with maximal assistancein order to improve functional mobility and safety. Outcome: Completed Problem: PT - Mobility Goal: Ambulation Description: Pt will ambulate 150 feet with out an assistive device with minimal assistance to improve ability to navigate home environment. Outcome: Progressing Toward Goal * Plan of Care - BEN Morgan - 08/17/2022 9:45 AM EST Problem: TRENCHING MACHINE OPERATOR - Dysphagia Goal: PO Trial 3 Description: Patient will swallow 5-8 trials of regular solids demonstrating timely/effective mastication, bolus formation and oral bolus transit without overt clinical signs/symptoms of aspiration, across 1-2 sessions to determine readiness for diet advancement. Outcome: Ongoing No longer applicable: Problem: TRENCHING MACHINE OPERATOR - Dysphagia Goal: Bolus Challenge Goal 1 Description: Patient will swallow therapeutic p.o.trials/bolus challenge swallows (with TRENCHING MACHINE OPERATOR only) of puree solids x10-20 trials, given mod cues, for use of double swallow strategy to improve bolus efficiency/promote reduction of pharyngeal residue, without clinical signs/symptoms of airway penetrati on/aspiration over the course of x1-3 sessions to progress towards potential readiness for a repeatinstrumental swallow evaluation. Outcome: Completed Goal: Bolus Challenge Goal 2 Description: Patient will swallow therapeutic p.o.trials/bolus challenge swallows (with TRENCHING MACHINE OPERATOR only) of thin liquids via straw/cup x10-15 trials, given mod cues, for neuro stimulation opportunities without clinical signs/symptoms of airway penetration/aspiration over the course of x1-3 sessions to determine possible readiness for a repeat instrumental swallow evaluation. Outcome: Completed Goal: Swallow Strategy Goal Description: Patient will utilize safe swallow strategies (bolus placement on R, lingual sweep, liquid wash) during PO trials of advanced solids with min cues across 1-2 sessions to demonstrate improved safety and independence with PO trials. Outcome: Completed * Plan of Care - Gustavo Mosqueda RN - 08/16/2022 12:19 PM EST Problem: Patient Care Overview Goal: Plan of Care Review Outcome: Ongoing Goal: Interdisciplinary Rounds/Family Conf Outcome: Ongoing Problem: Stroke (Ischemic) (Adult) Goal: Signs and Symptoms of Listed Potential Problems Will be Absent, Minimized or Managed (Stroke) Description: Signs and symptoms of listed potential problems will be absent, minimized or managed by discharge/transition of care (reference Stroke (Ischemic) (Adult) CPG). Outcome: Ongoing * Plan of Care - BEN Becker - 08/16/2022 11:42 AM EST Problem: TRENCHING MACHINE OPERATOR - Dysphagia Goal: Bolus Challenge Goal 2 Description: Patient will swallow therapeutic p.o.trials/bolus challenge swallows (with TRENCHING MACHINE OPERATOR only) of thin liquids via straw/cup x10-15 trials, given mod cues, for neuro stimulation opportunities without clinical signs/symptoms of airway penetration/aspiration over the course of x1-3 sessions to determine possible readiness for a repeat instrumental swallow evaluation. Outcome: Ongoing Problem: TRENCHING MACHINE OPERATOR - Motor Speech Goal: Dysarthria Strategy Goal 3 Description: Patient will improve articulatory precision by repeating x1-2 words with trained over articulation strategy across 90% of (at least x20) trials with mod cues over x3-4 sessions. Outcome: Ongoing * Plan of Care - Yasemin Cardenas OT - 08/16/2022 11:33 AM EST Problem: OT - Dressing Goal: Upper Body Dressing Description: Pt will complete UE dressing task Edge of bed with standby assistance for improved ability to complete self-care activities. Outcome: Ongoing Problem: OT - ADLs Goal: Grooming Description: Pt will complete grooming Edge of bed with standby assistance for improved ability to safely complete ADLs. Outcome: Ongoing Problem: OT - Visual Scanning Goal: Visual Tracking Description: Pt will track past midline to left 6 completions during session with 20 % cues, to attend to familiar object/person for ADL participation. Outcome: Ongoing Problem: OT - Cognition Goal: Cognition simple ADL Description: Pt will demonstrate improved cognition, completing simple ADL task for 10 minutes with2 cues required to maintain attention, for improved safety and success at discharge destination. Outcome: Ongoing Problem: OT - Balance Goal: Balance - Standing Description: Pt will perform 4-5 minutes of functional ADL task in standing with moderate assistance and balance level of moderate assist to promote safety and improved balance required for self-careactivities. Outcome: Ongoing Problem: OT - Transfers Goal: Transfers Sit -> Stand Description: Pt will demonstrate good safety awareness during sit to/from stand functional transferwith moderate assistance and least restrictive device for improved safety and success at recommended discharge destination. Outcome: Ongoing Problem: OT - Strength/ROM Goal: Neuro Re-education Description: Pt will participate in neuro re-ed of (LUE) to improve strength by 2 muscle grades in each group, for improved use in ADLs. Outcome: Ongoing * Plan of Care - Jenn Suazo, PT - 08/16/2022 11:32 AM EST Problem: PT - Balance/Coordination/Neuro Re-Education Goal: Sitting Dynamic/Static Balance Description: Pt will perform seated balance tasks for 8 minutes with standby assistance with trunk in midline position, UE support level to improve safety with seated tasks. Outcome: Progressing Toward Goal Problem: PT - Transfers Goal: Supine <-> Sit Description: Pt will perform bed mobility with flat bed & no rail with moderate assistance in order to improve functional mobility and safety. Outcome: Progressing Toward Goal Goal: Sit <-> Stand Description: Pt will perform sit to/from stand transfers with maximal assistance in order to improve functional mobility and safety. Outcome: Progressing Toward Goal Goal: Stand-Pivot Description: Pt will perform stand/pivot transfer to/from bed/chair/commode with maximal assistancein order to improve functional mobility and safety. Outcome: Progressing Toward Goal * Nursing Notes - Mookie Contreras RN - 08/16/2022 5:35 AM EST Nursing order placed, bedside RN made aware: Please obtain photo with rover of skin integrity concerns to correspond with LDA for [facility] nurse to triage. Thank you. * Nursing Notes - Shi Mclean RN - 08/15/2022 11:16 AM EST Camille Dawkins fell on 08/15/22 at 1055(time) on [facility](unit). Detailed description of fall Pt slipped while being assisted to bedside commode. Two BUSINESS OPERATIONS CONSULTANT's with pt as well as gait belt use. Pts was also assisting and denies fall. Assessment findings: Pt denies injury. Provider Vickey Car SITE ADMINISTRATOR contacted by Shi Mclean RN at 11:18 and provider response: Post-Fall Interventions/Orders Implemented: (For example: assistance to bed, transfer off unit, additional staff assistance, Labs, tests, imaging ordered, low bed, etc) Patient and family education regarding falls, safety and use of call light: Yes * Plan of Care - Jeannine Oconnor RN - 08/14/2022 2:32 PM EST Problem: Patient Care Overview Goal: Plan of Care Review Outcome: Ongoing Goal: Individualization & Mutuality Outcome: Ongoing Goal: Discharge Needs Assessment Outcome: Ongoing Goal: Interdisciplinary Rounds/Family Conf Outcome: Met This Shift Problem: Stroke (Ischemic) (Adult) Goal: Signs and Symptoms of Listed Potential Problems Will be Absent, Minimized or Managed (Stroke) Description: Signs and symptoms of listed potential problems will be absent, minimized or managed by discharge/transition of care (reference Stroke (Ischemic) (Adult) CPG). Outcome: Ongoing Problem: Dysphagia (Adult) Goal: Identify Related Risk Factors and Signs and Symptoms Description: Related risk factors and signs and symptoms are identified upon initiation of Human Response Clinical Practice Guideline (CPG) Outcome: Ongoing Goal: Functional/Safe Swallow Description: Patient will demonstrate the desired outcomes by discharge/transition of care. Outcome: Ongoing Goal: Compensatory Techniques to Improve Safety/Function with Swallowing Description: Patient will demonstrate the desired outcomes by discharge/transition of care. Outcome: Ongoing * Plan of Care - Ana Miramontes RD - 08/13/2022 3:53 PM EST Nutrition Recommendations and Plan of Care: 1. Diet as appropriate per TRENCHING MACHINE OPERATOR evaluation: Soft and Bite Sized, Honey-Thick Liquids - patient requested salt/pepper and Mrs Dash seasonings to be sent with meal trays 2. Oral nutritional supplement: thickened chocolate Glucerna with breakfast and dinner trays per patient preference 3. Monitor appetite/PO intakes, weight, GI function, skin integrity, lab values. 4. Nutrition to follow Ana Mulligan RDN,LD, MEDICAL CENTER MANAGER Page: [phone] Phone: [phone] Please refer to Dietitian Drawbridge Operator in [employer] for daily RD coverage. * Plan of Care - Bettina Figueroa OT - 08/13/2022 12:34 PM EST Problem: OT - ADLs Goal: Grooming Description: Pt will complete grooming Edge of bed with standby assistance for improved ability to safely complete ADLs. Outcome: Progressing Toward Goal Problem: OT - Visual Scanning Goal: Visual Tracking Description: Pt will track past midline to left 6 completions during session with 20 % cues, to attend to familiar object/person for ADL participation. Outcome: Progressing Toward Goal Problem: OT - Cognition Goal: Cognition simple ADL Description: Pt will demonstrate improved cognition, completing simple ADL task for 10 minutes with2 cues required to maintain attention, for improved safety and success at discharge destination. Outcome: Progressing Toward Goal Problem: OT - Balance Goal: Balance - Standing Description: Pt will perform 4-5 minutes of functional ADL task in standing with moderate assistance and balance level of moderate assist to promote safety and improved balance required for self-careactivities. Outcome: Progressing Toward Goal Problem: OT - Transfers Goal: Transfers Sit -> Stand Description: Pt will demonstrate good safety awareness during sit to/from stand functional transferwith moderate assistance and least restrictive device for improved safety and success at recommended discharge destination. Outcome: Progressing Toward Goal Problem: OT - Strength/ROM Goal: Neuro Re-education Description: Pt will participate in neuro re-ed of (LUE) to improve strength by 2 muscle grades in each group, for improved use in ADLs. Outcome: Progressing Toward Goal * Plan of Care - Adrian Perez PT - 08/13/2022 12:30 PM EST Problem: PT - Balance/Coordination/Neuro Re-Education Goal: Sitting Dynamic/Static Balance Description: Pt will perform seated balance tasks for 8 minutes with standby assistance with trunk in midline position, UE support level to improve safety with seated tasks. 08/13/2022 1501 by Adrian Perez PT Outcome: Progressing Toward Goal 08/13/2022 1500 by Adrian Perez PT Outcome: Progressing Toward Goal Problem: PT - Transfers Goal: Supine <-> Sit Description: Pt will perform bed mobility with flat bed & no rail with moderate assistance in order to improve functional mobility and safety. 08/13/2022 1501 by Adrian Perez PT Outcome: Progressing Toward Goal 08/13/2022 1500 by Adrian Perez PT Outcome: Progressing Toward Goal Goal: Sit <-> Stand Description: Pt will perform sit to/from stand transfers with maximal assistance in order to improve functional mobility and safety. 08/13/2022 1501 by Adrian Perez PT Outcome: Progressing Toward Goal 08/13/2022 1500 by Adrian Perez PT Outcome: Progressing Toward Goal Goal: Stand-Pivot Description: Pt will perform stand/pivot transfer to/from bed/chair/commode with maximal assistancein order to improve functional mobility and safety. 08/13/2022 1501 by Adrian Perez PT Outcome: Progressing Toward Goal 08/13/2022 1500 by Adrian Perez PT Outcome: Progressing Toward Goal Problem: PT - Mobility Goal: Ambulation Description: Pt will ambulate 150 feet with out an assistive device with minimal assistance to improve ability to navigate home environment. Outcome: Progressing Toward Goal * Plan of Care - Kamilla Hernandez, TRENCHING MACHINE OPERATOR - 08/13/2022 9:30 AM EST Problem: TRENCHING MACHINE OPERATOR - Dysphagia Goal: Bolus Challenge Goal 1 Description: Patient will swallow therapeutic p.o.trials/bolus challenge swallows (with TRENCHING MACHINE OPERATOR only) of puree solids x10-20 trials, given mod cues, for use of double swallow strategy to improve bolus efficiency/promote reduction of pharyngeal residue, without clinical signs/symptoms of airway penetrati on/aspiration over the course of x1-3 sessions to progress towards potential readiness for a repeatinstrumental swallow evaluation. Outcome: Ongoing Goal: Bolus Challenge Goal 2 Description: Patient will swallow therapeutic p.o.trials/bolus challenge swallows (with TRENCHING MACHINE OPERATOR only) of thin liquids via straw/cup x10-15 trials, given mod cues, for neuro stimulation opportunities without clinical signs/symptoms of airway penetration/aspiration over the course of x1-3 sessions to determine possible readiness for a repeat instrumental swallow evaluation. Outcome: Ongoing Problem: TRENCHING MACHINE OPERATOR - Cognition Goal: Attention Goal 2 Description: Patient will demonstrate ability to utilize trained strategies targeted at maintainingleft attention by completing functional tasks, to task completion, with no more than x3 cues to redirect attention in order to reduce breakdowns in ADLs and other functional, basic tasks. Outcome: Ongoing Goal: Problem Solving Goal 1 Description: Patient will complete basic problem solving tasks in at least 50% of opportunities in their immediate environment to support self-advocacy and independence, given mod-max cues across 2 consecutive sessions by discharge. Outcome: Ongoing Goal: Alertness Goal Description: Patient will participate in further cognitive-linguistic assessment across 1-2 sessions in order to further pinpoint deficits and continue to determine most appropriate plan of care for patient. Outcome: Ongoing Problem: TRENCHING MACHINE OPERATOR - Motor Speech Goal: Dysarthria Strategy Goal 3 Description: Patient will improve articulatory precision by repeating x1-2 words with trained over articulation strategy across 90% of (at least x20) trials with mod cues over x3-4 sessions. Outcome: Ongoing Problem: TRENCHING MACHINE OPERATOR - Cognition Goal: Meticognition Goal 2 Description: Patient will state x2-3 changes in function that impact his/her level of independence,with min prompts, across 1-2 sessions in order to improve insight into deficits, improve safety andimprove level of independence. Outcome: Completed * Plan of Care - Maddie Hodge RN - 08/13/2022 6:15 AM EST Problem: Patient Care Overview Goal: Plan of Care Review Outcome: Progressing Toward Goal Goal: Individualization & Mutuality Outcome: Progressing Toward Goal Goal: Discharge Needs Assessment Outcome: Progressing Toward Goal Goal: Interdisciplinary Rounds/Family Conf Outcome: Progressing Toward Goal Problem: Stroke (Ischemic) (Adult) Goal: Signs and Symptoms of Listed Potential Problems Will be Absent, Minimized or Managed (Stroke) Description: Signs and symptoms of listed potential problems will be absent, minimized or managed by discharge/transition of care (reference Stroke (Ischemic) (Adult) CPG). Outcome: Progressing Toward Goal Problem: Dysphagia (Adult) Goal: Identify Related Risk Factors and Signs and Symptoms Description: Related risk factors and signs and symptoms are identified upon initiation of Human Response Clinical Practice Guideline (CPG) Outcome: Progressing Toward Goal Goal: Functional/Safe Swallow Description: Patient will demonstrate the desired outcomes by discharge/transition of care. Outcome: Progressing Toward Goal Goal: Compensatory Techniques to Improve Safety/Function with Swallowing Description: Patient will demonstrate the desired outcomes by discharge/transition of care. Outcome: Progressing Toward Goal Problem: Nutrition, Imbalanced: Inadequate Oral Intake (Adult) Goal: Identify Related Risk Factors and Signs and Symptoms Description: Related risk factors and signs and symptoms are identified upon initiation of Human Response Clinical Practice Guideline (CPG) Outcome: Progressing Toward Goal * Nursing Notes - Roscoe Carter RN - 08/12/2022 6:10 PM EST Pt no longer maintaining HR less than 110. Cardizem drip started at 5mg/hr per order. * Plan of Care - Roscoe Carter RN - 08/12/2022 5:20 PM EST Problem: Patient Care Overview Goal: Plan of Care Review Outcome: Progressing Toward Goal Goal: Individualization & Mutuality Outcome: Progressing Toward Goal Goal: Discharge Needs Assessment Outcome: Progressing Toward Goal Goal: Interdisciplinary Rounds/Family Conf Outcome: Progressing Toward Goal Problem: Stroke (Ischemic) (Adult) Goal: Signs and Symptoms of Listed Potential Problems Will be Absent, Minimized or Managed (Stroke) Description: Signs and symptoms of listed potential problems will be absent, minimized or managed by discharge/transition of care (reference Stroke (Ischemic) (Adult) CPG). Outcome: Progressing Toward Goal Problem: Nutrition, Imbalanced: Inadequate Oral Intake (Adult) Goal: Identify Related Risk Factors and Signs and Symptoms Description: Related risk factors and signs and symptoms are identified upon initiation of Human Response Clinical Practice Guideline (CPG) Outcome: Progressing Toward Goal Pt remained safe and free from injury throughout this shift. Pt VSS. Pt HR stabilized after IVP bolus of Cardizem. IV continuous drip of Cardizem on hold if pt sustains HR greater than 110. Pt ambulating with assistance of 2 people. Plan to discharge pt to SNF once medically ready. Choices obtainedfrom today. * Plan of Care - BEN Morgan - 08/12/2022 2:05 PM EST Problem: TRENCHING MACHINE OPERATOR - Dysphagia Goal: Bolus Challenge Goal 1 Description: Patient will swallow therapeutic p.o.trials/bolus challenge swallows (with TRENCHING MACHINE OPERATOR only) of puree solids x10-20 trials, given mod cues, for use of double swallow strategy to improve bolus efficiency/promote reduction of pharyngeal residue, without clinical signs/symptoms of airway penetrati on/aspiration over the course of x1-3 sessions to progress towards potential readiness for a repeatinstrumental swallow evaluation. Outcome: Ongoing Goal: Bolus Challenge Goal 2 Description: Patient will swallow therapeutic p.o.trials/bolus challenge swallows (with TRENCHING MACHINE OPERATOR only) of thin liquids via straw/cup x10-15 trials, given mod cues, for neuro stimulation opportunities without clinical signs/symptoms of airway penetration/aspiration over the course of x1-3 sessions to determine possible readiness for a repeat instrumental swallow evaluation. Outcome: Ongoing Problem: TRENCHING MACHINE OPERATOR - Cognition Goal: Attention Goal 2 Description: Patient will demonstrate ability to utilize trained strategies targeted at maintainingleft attention by completing functional tasks, to task completion, with no more than x3 cues to redirect attention in order to reduce breakdowns in ADLs and other functional, basic tasks. Outcome: Ongoing Goal: Problem Solving Goal 1 Description: Patient will complete basic problem solving tasks in at least 50% of opportunities in their immediate environment to support self-advocacy and independence, given mod-max cues across 2 consecutive sessions by discharge. Outcome: Ongoing Goal: Meticognition Goal 2 Description: Patient will state x2-3 changes in function that impact his/her level of independence,with min prompts, across 1-2 sessions in order to improve insight into deficits, improve safety andimprove level of independence. Outcome: Ongoing Goal: Alertness Goal Description: Patient will participate in further cognitive-linguistic assessment across 1-2 sessions in order to further pinpoint deficits and continue to determine most appropriate plan of care for patient. Outcome: Ongoing Problem: TRENCHING MACHINE OPERATOR - Motor Speech Goal: Dysarthria Strategy Goal 3 Description: Patient will improve articulatory precision by repeating x1-2 words with trained over articulation strategy across 90% of (at least x20) trials with mod cues over x3-4 sessions. Outcome: Ongoing * Nursing Notes - Josee Wolff RN - 08/12/2022 11:33 AM EST I spoke with Camille Dawkins this morning as Nib Adjuster for the [facility] the [facility]. We reviewed the BE FAST sticker (Balance, Eyes, Facial droop or uneven smile, Arm numbness or weakness - especially on one side, Speech that is slurred or difficult to talk or understand, and Time to call 911). I then left my card assuring the patient and/or family that they should feel free to contact me with any questions. * Plan of Care - Livier Jeffers OT - 08/12/2022 9:13 AM EST Problem: OT - Visual Scanning Goal: Visual Tracking Description: Pt will track past midline to left 6 completions during session with 20 % cues, to attend to familiar object/person for ADL participation. Outcome: Ongoing Problem: OT - Strength/ROM Goal: Neuro Re-education Description: Pt will participate in neuro re-ed of (LUE) to improve strength by 2 muscle grades in each group, for improved use in ADLs. Outcome: Progressing Toward Goal * Plan of Care - Maddie Hodge RN - 08/12/2022 6:39 AM EST Problem: Patient Care Overview Goal: Plan of Care Review Outcome: Progressing Toward Goal Goal: Individualization & Mutuality Outcome: Progressing Toward Goal Goal: Discharge Needs Assessment Outcome: Progressing Toward Goal Goal: Interdisciplinary Rounds/Family Conf Outcome: Progressing Toward Goal Problem: Stroke (Ischemic) (Adult) Goal: Signs and Symptoms of Listed Potential Problems Will be Absent, Minimized or Managed (Stroke) Description: Signs and symptoms of listed potential problems will be absent, minimized or managed by discharge/transition of care (reference Stroke (Ischemic) (Adult) CPG). Outcome: Progressing Toward Goal Problem: Dysphagia (Adult) Goal: Identify Related Risk Factors and Signs and Symptoms Description: Related risk factors and signs and symptoms are identified upon initiation of Human Response Clinical Practice Guideline (CPG) Outcome: Progressing Toward Goal Goal: Functional/Safe Swallow Description: Patient will demonstrate the desired outcomes by discharge/transition of care. Outcome: Progressing Toward Goal Goal: Compensatory Techniques to Improve Safety/Function with Swallowing Description: Patient will demonstrate the desired outcomes by discharge/transition of care. Outcome: Progressing Toward Goal * Plan of Care - Shi Mclean RN - 08/11/2022 12:54 PM EST Problem: Patient Care Overview Goal: Plan of Care Review Flowsheets (Taken 08/11/2022 1254) Plan Of Care Reviewed With: spouse patient * Plan of Care - BEN Morgan - 08/11/2022 11:00 AM EST Problem: TRENCHING MACHINE OPERATOR - Dysphagia Goal: Bolus Challenge Goal 1 Description: Patient will swallow therapeutic p.o.trials/bolus challenge swallows (with TRENCHING MACHINE OPERATOR only) of puree solids x10-20 trials, given mod cues, for use of double swallow strategy to improve bolus efficiency/promote reduction of pharyngeal residue, without clinical signs/symptoms of airway penetrati on/aspiration over the course of x1-3 sessions to progress towards potential readiness for a repeatinstrumental swallow evaluation. Outcome: Ongoing Goal: Bolus Challenge Goal 2 Description: Patient will swallow therapeutic p.o.trials/bolus challenge swallows (with TRENCHING MACHINE OPERATOR only) of thin liquids via straw/cup x10-15 trials, given mod cues, for neuro stimulation opportunities without clinical signs/symptoms of airway penetration/aspiration over the course of x1-3 sessions to determine possible readiness for a repeat instrumental swallow evaluation. 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 Do you want to re- start her metoprolol? * Plan of Care - Julienne Pan RD - 08/10/2022 1:42 PM EST Problem: Nutrition, Imbalanced: Inadequate Oral Intake (Adult) Goal: Identify Related Risk Factors and Signs and Symptoms Description: Related risk factors and signs and symptoms are identified upon initiation of Human Response Clinical Practice Guideline (CPG) Outcome: Ongoing Note: Nutrition Recommendations and Plan of Care: 1. Diet as appropriate per TRENCHING MACHINE OPERATOR evaluation. - FEES pending. 2. If unable to safely advance diet, recommend obtaining enteral access and starting TF: initiate Nepro at 10 ml/hr; increase by 10 ml every 4 hours to goal rate of 35 ml/hr. - Goal rate will provide 840 mL, 1512 kcal (28 kcal/kg), 68 g PRO (1.2 g pro/kg), 134 g CHO and 611mL free water. - Additional free water flushes per primary team. Recommend minimum 30 mL x 4/day to maintain tube patency. 3. Monitor diet advancement vs TF, bowel function, skin integrity, weight change, lab values. 4. RD to follow. * Plan of Care - BEN Terry - 08/10/2022 1:37 PM EST Problem: TRENCHING MACHINE OPERATOR - Dysphagia Goal: FEES Description: Patient will accept direct p.o. trials during FEES in order to dynamically assess pharyngeal swallow function, determine least restrictive diet level and best goals/plan of care for patient. Outcome: Completed Goal: Bolus Challenge Goal 1 Description: Patient will swallow therapeutic p.o.trials/bolus challenge swallows (with TRENCHING MACHINE OPERATOR only) of puree solids x10-20 trials, given mod cues, for use of double swallow strategy to improve bolus efficiency/promote reduction of pharyngeal residue, without clinical signs/symptoms of airway penetrati on/aspiration over the course of x1-3 sessions to progress towards potential readiness for a repeatinstrumental swallow evaluation. Outcome: Ongoing Goal: Bolus Challenge Goal 2 Description: Patient will swallow therapeutic p.o.trials/bolus challenge swallows (with TRENCHING MACHINE OPERATOR only) of thin liquids via straw/cup x10-15 trials, given mod cues, for neuro stimulation opportunities without clinical signs/symptoms of airway penetration/aspiration over the course of x1-3 sessions to determine possible readiness for a repeat instrumental swallow evaluation. Outcome: Ongoing * Plan of Care - Marissa Shields PT - 08/10/2022 11:00 AM EST Problem: PT - Balance/Coordination/Neuro Re-Education Goal: Sitting Dynamic/Static Balance Description: Pt will perform seated balance tasks for 8 minutes with standby assistance with trunk in midline position, UE support level to improve safety with seated tasks. Outcome: Ongoing Problem: PT - Transfers Goal: Supine <-> Sit Description: Pt will perform bed mobility with flat bed & no rail with moderate assistance in order to improve functional mobility and safety. Outcome: Ongoing Goal: Sit <-> Stand Description: Pt will perform sit to/from stand transfers with maximal assistance in order to improve functional mobility and safety. Outcome: Ongoing Goal: Stand-Pivot Description: Pt will perform stand/pivot transfer to/from bed/chair/commode with maximal assistancein order to improve functional mobility and safety. Outcome: Ongoing * Plan of Care - Yasemin Cardenas OT - 08/10/2022 10:23 AM EST Problem: OT - Dressing Goal: Upper Body Dressing Description: Pt will complete UE dressing task Edge of bed with standby assistance for improved ability to complete self-care activities. Outcome: Ongoing Problem: OT - ADLs Goal: Grooming Description: Pt will complete grooming Edge of bed with standby assistance for improved ability to safely complete ADLs. Outcome: Ongoing Problem: OT - Visual Scanning Goal: Visual Tracking Description: Pt will track past midline to left 6 completions during session with 20 % cues, to attend to familiar object/person for ADL participation. Outcome: Ongoing Problem: OT - Cognition Goal: Cognition simple ADL Description: Pt will demonstrate improved cognition, completing simple ADL task for 10 minutes with2 cues required to maintain attention, for improved safety and success at discharge destination. Outcome: Ongoing Problem: OT - Balance Goal: Balance - Standing Description: Pt will perform 4-5 minutes of functional ADL task in standing with moderate assistance and balance level of moderate assist to promote safety and improved balance required for self-careactivities. Outcome: Ongoing Problem: OT - Transfers Goal: Transfers Sit -> Stand Description: Pt will demonstrate good safety awareness during sit to/from stand functional transferwith moderate assistance and least restrictive device for improved safety and success at recommended discharge destination. Outcome: Ongoing Problem: OT - Strength/ROM Goal: Neuro Re-education Description: Pt will participate in neuro re-ed of (LUE) to improve strength by 2 muscle grades in each group, for improved use in ADLs. Outcome: Ongoing * Plan of Care - Kamilla Hernandez, BEN - 08/10/2022 9:15 AM EST Problem: TRENCHING MACHINE OPERATOR - Dysphagia Goal: FEES Description: Patient will accept direct p.o. trials during FEES in order to dynamically assess pharyngeal swallow function, determine least restrictive diet level and best goals/plan of care for patient. Outcome: Ongoing Problem: TRENCHING MACHINE OPERATOR - Cognition Goal: Attention Goal 2 Description: Patient will demonstrate ability to utilize trained strategies targeted at maintainingleft attention by completing functional tasks, to task completion, with no more than x3 cues to redirect attention in order to reduce breakdowns in ADLs and other functional, basic tasks. Outcome: Ongoing Goal: Problem Solving Goal 1 Description: Patient will complete basic problem solving tasks in at least 50% of opportunities in their immediate environment to support self-advocacy and independence, given mod-max cues across 2 consecutive sessions by discharge. Outcome: Ongoing Goal: Meticognition Goal 2 Description: Patient will state x2-3 changes in function that impact his/her level of independence,with min prompts, across 1-2 sessions in order to improve insight into deficits, improve safety andimprove level of independence. Outcome: Ongoing Goal: Ongoing Re-assessment Description: Patient will participate in further cognitive-linguistic assessment across 1-2 sessions in order to further pinpoint deficits and continue to determine most appropriate plan of care for patient. Outcome: Ongoing * Plan of Care - BEN Morgan - 08/10/2022 9:15 AM EST Problem: TRENCHING MACHINE OPERATOR - Motor Speech Goal: Dysarthria Strategy Goal 3 Description: Patient will improve articulatory precision by repeating x1-2 words with trained over articulation strategy across 90% of (at least x20) trials with mod cues over x3-4 sessions. Outcome: Ongoing * Plan of Care - Johny Brown MD - 08/10/2022 7:49 AM EST Neurosurgery Update: Consulted for exam and imaging findings consistent with acute right M2 occlusion meeting criteria for emergent revascularization. Mechanical thrombectomy performed on 08/09 with TICI 2b revascularization of R MCA occlusion. No further neurosurgical intervention at this time. - Remainder of stroke care per neurovascular team - Neurosurgery will sign-off. Please call with questions. Johny Brown MD, Neurosurgery NS2 ([phone]) * Op Note - Ángel Patel MD, PhD - 08/09/2022 12:00 PM EST Operative Report DATE PERFORMED: 08/09/2022 PREOPERATIVE DIAGNOSIS: Right M2 occlusion. POSTOPERATIVE DIAGNOSIS: Right M2 occlusion. PROCEDURE: Right MCA thrombectomy. SURGEON(S): Ángel Patel MD, PhD. ANESTHESIA: Monitored anesthesia care. COMPLICATIONS: None. SPECIMENS: None. BRIEF CLINICAL HISTORY: Ms. Dawkins is a 62-year-old man who was last known well last night at around 8:00 p.m. She has been found this morning to have left-sided weakness. She was evaluated at [facility] with an NIH Stroke Scale of 6. She was transferred to [facility] for CT angiography which revealed a dominant right M2 occlusion and a favorable mismatch for thrombectomy. After obtaining written informed consent, we made decision to proceed with attempted thrombectomy. PROCEDURE IN DETAIL: The patient was brought up emergently to the operating room and positioned supine on the angio table. All pressure points were padded. After induction of monitored anesthesia care, the skin of her right groin was cleaned, prepped, and draped in the usual fashion. A time-out was performed. Percutaneous access was obtained in the right common femoral artery and an 8-Urdu introducer sheath placed and a limited right common femoral artery arteriogram performed. Next, a TracStar guide catheter was advanced over a Sim 2 selector catheter into the aortic arch. The right common carotid artery was catheterized. AP and lateral images of the cervical and carotid arteries were obtained. The TracStar guide catheter was positioned within the distal cervical right internal carotid artery. AP, lateral and magnified oblique images of the cranial circulation were obtained. Next, one round of aspiration thrombectomy using a 071 zoom aspiration catheter. Postprocedural, right internal carotid angiography was performed. The catheter was removed. Next, the introducer sheath was removed and hemostasis obtained with a Mynx device. Ms. Dawkins was transferred up to the neuro ICU in stable critical condition. ANGIOGRAPHIC FINDINGS: The limited right common femoral artery arteriogram demonstrates normal puncture site anatomy. The right common carotid artery arteriogram demonstrates antegrade flow in the cervical and carotid arteries. There is no significant stenosis. The capillary and venous phases are unremarkable. The right internal carotid artery arteriogram demonstrates antegrade flow within the anterior and middle cerebral arteries. There is a right M2 occlusion. This is a dominant M2 branch and is more like M1. The capillary and venous phases are unremarkable. One round of aspiration thrombectomy was performed. Next, the postprocedural right internal carotid artery arteriogram demonstrates antegrade flow within the anterior and middle cerebral arteries. There is TICI 2b revascularization. The capillary and venous phases are unremarkable. IMPRESSION: Successful TICI 2b revascularization of right M2 occlusion. The patient was last known well at 8:00 p.m. NIH Stroke Scale was 6. We were in the room at 8:17 am. Arterial puncture was achieved at 8:21 am. First pass was done at 8:34 am. Final TICI 2b revascularization was achieved at 8:38 am. Dictated By: Ángel Patel MD, PhD Ángel Patel MD, PhD ATTENDING CJP/MedQ JOB: [id number] DOC: [id number] * Brief Op Note - Ángel Patel MD, PhD - 08/09/2022 8:42 AM EST Camille Catalant ([id number]) PRE OPERATIVE DIAGNOSIS CVA (cerebral vascular accident) [I63.9] POST OPERATIVE DIAGNOSIS Post-Op Diagnosis Codes: * CVA (cerebral vascular accident) [I63.9] PROCEDURE PERFORMED Procedure(s) (LRB): THROMBECTOMY FOR STROKE (Right) Due to the patient's mental status, the urgency of her condition, and the unavailability of family members, emergent consent was used. PRIMARY CLOSURE N/A INTRAOPERATIVE FINDINGS TICI 2b revascularization of R MCA occlusion SURGEON Surgeon(s) and Role: * Ángel Patel MD, PhD - Primary * Martin Briceno MD - Fellow ANESTHESIOLOGIST Anesthesiologist: Comfort Jarrell III, MD BUDGET CONSULTANT: Angelina Coreas APRN-BUDGET CONSULTANT SURGICAL STAFF Infrastructure Solutions Architect: Susanna Oviedo RN; William Champion RN Offshoring Manager: Scottie Ruiz; Mariposa Zakeri COMPLICATIONS None ESTIMATED BLOOD LOSS None SPECIMENS No specimen sent * No specimens in log * Ángel Patel MD, PhD August 09, 2022 8:42 AM * Certification - Mariposa Han, CAR DELIVERER-SITE ADMINISTRATOR - 08/09/2022 8:32 AM EST I certify that this patient requires inpatient services at this time. I anticipate the expected length of stay will include at least two midnights. Inpatient services are due to the following medicalconcerns stroke, thrombectomy . Plans for post hospitalization care will be discharge to inpatient rehab facility. documented in this [facility]12-09-2022 Hospital course Narrative* Robert Mujica, CAR DELIVERER-SITE ADMINISTRATOR - 08/20/2022 10:40 AM EST Discharge Summary Name: Camille Dawkins Age: 62 y.o. Birthday: 1960 Admit Date: 08/09/2022 7:44 AM Discharge Date: 08/20/22 Discharge Time: 1600 Discharge Unit: [facility] Admission Information Admitting Physician: Sera Saldivar MD Discharge Information Discharge Physician: Dr. Raine Bryan Problem List Active Hospital Problems Diagnosis Anemia (Low HGB) Renal disease (High Serum Creatinine) Type 2 Diabetes (A1C > 6.49%) Stroke Resolved Hospital Problems No resolved problems to display. Brief Summary of Hospital Course for Discharge Summary: Dear Providers, We recently had the pleasure of taking care of Camille Dawkins at [facility]. As you well know Camille Dawkins 62 y.o. female with PMH significant for HTN, DM, HLD, anxiety, depression, JAMAAL, CKD stage 3A, CHF, anemia, migraine, gastritis/duodenitis, Afib onEliquis-last dose 08/08 who presented to an OSH on 08/09 with left sided weakness. MICHELLEW 08/08 @ 1999. She was evaluated via telestroke. NIHSS 6. Not a candidate for iv thrombolysis due to Eliquis use.CTA showed R M2 occlusion. She was [facility]red [facility] for further care. Upon arrival to [facility], NIHSS was 8. CTP with 2ml core and 86 ml penumbra she was taken to OR for thrombectomy and a TICI 2b revascularization was achieved. MRI brain revealed a small R MCA stroke. Brief summary of Imaging: CTA, MRI, TTE, ROBERTO, Dopplers CTH: Acute ischemic infarct in the right insula. CTA brain/neck: Right M2 occlusion CTP: Large perfusion mismatch of 86 ml in right MCA territory MRI brain: R MCA stroke, no hemorrhage TTE: EF <20%, grade II diastolic dysfunction LDL 31, A1c 7.5 She was evaluated by therapies and was appropriate for discharge to [facility]. 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 CXR w/ R pleural effusion, BNP 1109, given IV lasix 40 mg x1. Cardiology consulted: recommended continue with IV diuresis, continue metoprolol succinate, losartan, and farxiga, consult EP. 08/19: EP consulted-will not pursue rhythm control with DCCV because recent stroke on OAC. Would be reasonable to pursue ROBERTO to evaluate for LA/ОЛЕГ and need for LA clipping, however will defer furthertesting to outpatient ob/gyn doctor due to recent stroke. IV diuresed with 40 mg IV lasix. -08/20: Home lasix resumed at 40 mg daily. Metoprolol XL switched to 75 mg BID for rate control. Cardiology recommends resuming home lasix 20 mg at discharge, repeating chem-7 & Mg labs in 2 weeks. Patient advised to take additional 20mg daily PRN if signs of fluid overload develop. -Home spironolactone 25 mg daily held, can resume as able. -AC plan: Resumed home eliquis post stroke day 5 (08/14/22) Dysphagia: -soft and bite size, thin liquids, meds whole or crushed in puree -Speech following L shoulder/arm pain: -PRN flexeril 5 mg TID ordered for muscle spasms -PRN Tylenol ordered for pain control -Lidocaine patch ordered DM type II, (POA): -ACHS + carb control diet, SSI -glargine 5 units daily (decreased 08/15 for hypoglycemia) CKD stage IIIA, (POA): -Per OSH records, unknown baseline, 1.62 Cr on admission -Avoid nephrotoxic agents/renally dose medications -trend chem q 3 days Hx of h-pylori Hx of duodenitis/esophagitis, (POA): -H-pylori treatment started per [facility], end 08/11 (doxycyline monohydrate, metronidazole, and bismuthsubsalicylate) -Nexium 40 mg q 12 hours JAMAAL (POA): -listed from OSH records -Pt states she has not had a sleep study and does not wear CPAP -CPAP at night ordered Anxiety (POA) Depression (POA) Insomnia (POA) -Continue home Cymbalta, trazodone, mirtazepine Follow up appointments or imaging. -Follow up with Neurovascular as scheduled -Follow up with PCP in 1-2 weeks -Follow up with outpatient cardiology in 4 weeks -Repeat chem-7 & Mg in 2 weeks Physical exam on the day of discharge: Gen: awake, alert, NAD HEENT: normocephalic, no scalp lesions or tenderness Neck: trachea midline CV: +S1S2, irregular-afib on quality assurance monitor final, no m/r/g Lungs: clear, but diminished, bilaterally with equal chest rise. On RA. +dyspnea on exertion Abd: soft, nontender, nondistended, +BS x4 quadrants Extrem: Warm and well perfused, no edema Neuro: Oriented x3, RAM x 3, Mild dysarthria CN II - All visual rankin intact CN II/III - PERRLA CN III/IV/ - EOMI CN V - Light touch to face intact in V1-3 CN VII - Left facial droop CN VIII - Hearing intact CN X - Cough present CN XI - Left shoulder weakness CN XII - midline protrusion of tongue MOTOR EXAMINATION: LUE with minimal anti-gravity movement Brief Summary of Consults for Discharge Summary: Brief Summary of Procedures and Imaging for Discharge Summary: Summary of last selected lab results and date obtained: Lab Results Component Value Date WBC 9.03 08/19/2022 HGB 10.4 (L) 08/19/2022 HCT 34.4 (L) 08/19/2022 PLATELET 195 08/19/2022 MCV 87.8 08/19/2022 Lab Results Component Value Date SODIUM 137 08/20/2022 POTASSIUM 3.6 08/20/2022 CHLORIDE 100 08/20/2022 CO2 30 08/20/2022 BUN 27 (H) 08/20/2022 CREATSERUM 1.32 (H) 08/20/2022 GLUCOSE 229 (H) 08/19/2022 Lab Results Component Value Date ALT 9 08/10/2022 AST 23 08/10/2022 ALKPHOS 52 08/10/2022 BILITOTAL 1.0 08/10/2022 BILIDIRECT 0.3 (H) 08/10/2022 Brief Summary of Labs for Discharge Summary: Discharge Orders AMB REFERRAL TO NEUROLOGY AMB REFERRAL TO CARDIOVASCULAR MEDICINE Current Outpatient Meds: Medication List for when you go home CHANGE how you take these medications losartan 25 MG TABS Take 0.5 tablets by mouth daily. Commonly known as: COZAAR What changed: The quantity you have reported taking of this medication has changed Start taking on: August 21, 2022 metoprolol succinate 25 MG tablet XL Take 3 tablets by mouth every 12 hours. Commonly known as: TOPROL-XL What changed: The strength you have reported taking of this medication has changed The quantity you have reported taking of this medication has changed How often you have reported taking this medication has changed CONTINUE taking these medications atorvastatin 40 MG TABS Take 40 mg by mouth daily. Commonly known as: LIPITOR DULoxetine [address] capsule DR Take 30 mg by mouth daily. Commonly known as: CYMBALTA Eliquis 5 MG TABS Take 5 mg by mouth every 12 hours. Generic drug: apixaban Farxiga 10 MG TABS Take 10 mg by mouth daily. Generic drug: dapagliflozin furOSEmide 20 MG TABS Take 20 mg by mouth daily. Commonly known as: LASIX gliMEPIride 4 MG TABS Take 4 mg by mouth daily every morning. Commonly known as: AMARYL Insulin glargine 100 UNIT/ML vial Inject 20 Units under the skin At bedtime. Commonly known as: LANTUS Insulin Lispro 100 UNIT/ML vial Inject 4 Units under the skin before meals & at bedtime. Commonly known as: HumaLOG mirtazapine 15 MG TABS Take 15 mg by mouth At bedtime. Commonly known as: REMERON pantoprazole [address] tablet DR Take 40 mg by mouth 2 times daily. Commonly known as: PROTONIX traZODone 100 MG TABS Take 100 mg by mouth At bedtime. Commonly known as: DESYREL STOP taking these medications Bismuth Subsalicylate 262 MG CHEW Commonly known as: PEPTO-BISMOL metroNIDAZOLE 500 MG TABS Commonly known as: FLAGYL spironolactone 25 MG TABS Commonly known as: ALDACTONE tetracycline 500 MG CAPS Commonly known as: ACHROMYCIN Medication Instructions: Know your medicines ? Make sure you know why you are taking each medicine. ? Make a master list of all your medicines. Write down the medicine names and doctors' names. Include doses and side effects too. And write down why you take each medicine. Include all prescription and [id number] medicines, vitamins, and supplements. Keep this list up to date. Take a copy to each doctor visit. ? Know when you will run out of each medicine. Ask your pharmacist if there are ways the drugstore can remind you to refill your medicines so you do not run out. Write refill reminders on your calendar. Don't wait until you have a few pills left. ? Ask your pharmacist to plan your refills so that you can belt picker all your medicines at the same time. This can mean fewer trips to the drugstore. ? If we have prescribed you a new medication during your stay, please contact with your primary physician for refills Follow-up: Nando Esposito MD [address] [facility] [id number] Follow up in 1 week(s) To discuss emergency department visit [facility] [address] [place], [place] [address] [facility] [address] Schedule an appointment as soon as possible for a visit Please call MIRNA and schedule an appointment to get established with Cardiology. [facility] Consult note* Anthony Cruz MD - 08/19/2022 5:58 PM ESTAssociated Order(s): IP CONSULT TO CARDIOLOGY - EP EP CONSULT INITIAL EVALUATION IDENTIFYING DATA PATIENT: Camille Dawkins ADMIT DATE: 08/09/2022 TIME OF EVALUATION: 08/19/2022 5:58 PM HOSPITAL STAY: LOS: 10 days CONSULTING SERVICE: Neurovascular REASON FOR CONSULTATION: AFIB HISTORY OF PRESENT ILLNESS Camille Dawkins is a 62 y.o. female with a past medical history of AFIB, HFrEF, HTN and DM who was admitted due to stroke . Initially admitted due to stroke s/p revascularization. EP was consulted due to AFIB management. Concerns of TICM. Patient stated that she has been compliant with eliquis, without missing doses but she had a strokeevent. She also stated she was diagnosed few months ago with AFIB, failed DCCV. Also at the same time she was diagnosed with HFrEF. As per patient LHC negative. ASSESSMENT AND PLAN Camille Dawkins is a 62 y.o. female who has the following active issues that are listed below: 1. Persistent Afib: Diagnosed in the past. Failed DCCV in the past. FPX2OH1-ASPo = 6 (HTN, T2DM, female, age, CVA). She has stroke event On eliquis (patient stated no missing doses). 1. Acute stroke s/p revascularization 2. HFrEF - EF 20%. As per patient already have LHC as outpatient and was negative. She was already diagnosed with low EF in the past. ?ICM with component of TICM 3. HTN 4. DM2 Recommendations: - At this moment will not pursue rhythm control with DCCV because recent stroke on OAC. Will do HR control for now. HR goal <110. Switch to metoprolol XL 75 mg BID. - Consider to use other OAC therapeutic agent, patient already had a stroke event on eliquis. One option could be warfarin with INR 3 to 3.5. Will defer to primary team - Also consider to perform ROBERTO to evaluate better LA/ОЛЕГ anatomy, depending of findings patient maybenefit of ОЛЕГ clipping by CTS. - From EP standpoint we will wait at least 6 weeks after the stroke to decide regarding rhythm control. After that we can evaluated her and decide regarding best strategy for her. She can follow up with Dr. Davidson or in [facility] depending patient preferences. - At this moment EP will sign off please call us back with questions. Thank you for allowing us to participate in the care of Camille Dawkins. If you have any questions or need any further information, please feel free to contact the EP Consult Service. -- All recommendations preliminary until cosigned by attending physician. -- Anthony Cruz MD Fellow, Cardiac Electrophysiology REVIEW OF SYSTEMS Constitutional: Negative for fevers, chills or weight loss Skin: Negative for rash, dry skin, pruritus and skin lesions. HENT: Negative for congestion, sore throat and rhinorrhea. Eyes: Negative for blurred vision and double vision. Cardiovascular: Negative for chest pain, dyspnea on exertion and palpitations. Respiratory: Negative for cough. Is not experiencing shortness of breath or wheezing. Gastrointestinal: Negative for nausea, abdominal pain, diarrhea and constipation. Negative for hematemesis, hematochezia and melena Genitourinary: Negative for dysuria, hematuria or urinary urgency Musculoskeletal: Negative for back pain or joint pain Neurological: Negative for dizziness and headaches. Negative for weakness, numbness and tingling OBJECTIVE DATA Temp: [97.5 F (36.4 C)-98.1 F (36.7 C)] 98.1 F (36.7 C) Pulse (Heart Rate): [97-105] 102 Resp Rate: [18-24] 23 BP: (108-123)/(74-89) 114/81 O2 Sat (%): [92 %-100 %] 92 % I/O last 3 completed shifts: In: 1072 [P.O.:1072] Out: 3950 [Urine:3950] Oxygen Therapy: Oxygen Therapy O2 Sat (%): 92 % O2 Device: room air Flow (L/min): 0 Physical Exam: Gen: Alert, Awake, NAD Resp: CTA B/L, normal respiratory effort Cardio: IRIR, normal S1, S2, no M/R/G GI: S/NT/ND, +BS Ext: WWP, no LE edema, no joint effusions Skin: No jaundice or rash Psych: Alert, Ox3, Body mass index is 34.83 kg/m . PAST MEDICAL, SURGICAL, FAMILY, and SOCIAL HISTORY No past medical history on file. Past Surgical History: Procedure Laterality Date THROMBECTOMY MECHANICAL/INFUSION FOR THROMBOLYSIS INTRACRANIAL ARTERY Right 08/09/2022 Laterality: Right; Surgeon: Ángel Patel MD, PhD; Location: [facility] MAIN OR No family history on file. Social History Socioeconomic History Marital status: MEDICATIONS SCHEDULED: apixaban (ELIQUIS) tablet 5 mg, 5 mg, Q12H atorvastatin (LIPITOR) tablet 40 mg, 40 mg, QHS dapagliflozin (FARXIGA) tablet 10 mg, 10 mg, Daily DULoxetine (CYMBALTA) capsule DR 30 mg, 30 mg, QHS esomeprazole (NEXIUM) oral granules packet 40 mg, 40 mg, Q12H insulin glargine-yfgn (SEMGLEE) injection 5 Units, 5 Units, Q24H insulin lispro (HumaLOG) injection, , 4x daily w/meals, HS losartan (COZAAR) tablet 12.5 mg, 12.5 mg, Daily metoprolol succinate (TOPROL-XL) tablet XL 100 mg, 100 mg, Daily mirtazapine (REMERON) tablet 15 mg, 15 mg, QHS senna (SENOKOT) tablet 8.6 mg, 8.6 mg, QAM traZODone (DESYREL) tablet 100 mg, 100 mg, QHS FLUIDS/DRIPS: PRNs: acetaminophen, 325 mg, Q4H PRN Or acetaminophen, 325 mg, Q4H PRN Or acetaminophen, 650 mg, Q4H PRN Or acetaminophen, 650 mg, Q4H PRN albuterol, 2.5 mg, Q6H PRN Insulin lispro, , PRN And dextrose, 7.5-25 g, As directed PRN And glucose, 1-2 Tube, As directed PRN labetalol, 10 mg, Q6H PRN polyethylene glycol, 17 g, Daily PRN Or polyethylene glycol, 17 g, Daily PRN traZODone, 50 mg, QHS PRN ALLERGIES: She is allergic to penicillins. LABS CBC WBC/Hgb/Hct/Plts: 9.03/10.4/34.4/195 (08/19 243) Chem 7 Bun/Creat/Cl/CO2/Glucose: 32/1.38/103/28/155 (08/19 447-08/19 1625) Na/K+/Phos/Mg/Ca: 138/3.5/--/1.5/-- (08/19 447) estimated creatinine clearance is 47 mL/min (A) (by C-G formula based on SCr of 1.38 mg/dL (H)). Lab Results Component Value Date ALT 9 08/10/2022 AST 23 08/10/2022 ALKPHOS 52 08/10/2022 BILITOTAL 1.0 08/10/2022 BILIDIRECT 0.3 (H) 08/10/2022 Lab Results Component Value Date INR 1.5 (H) 08/10/2022 Troponin/BNP No results found for: CPK, TROP Lab Results Component Value Date BNP 1,109 (H) 08/18/2022 Thyroid No results found for: TSH, [id number], [id number], TSHBASELINE, TSHULTRASEN, T3FREE, [id number], [id number], [id number], T4FREE, TPOAB Associated attestation - Rojelio Davidson MD - 08/20/2022 7:32 AM EST Attending Physician Note I have personally interviewed and evaluated this patient with the Fellow/MARKETING PROGRAM COORDINATOR/Resident. I have reviewed the history and examination and edited these where appropriate in the note above. Iagree with the medical decision and components of the note. Pt awake and alert Elder Davidson MD Electrophysiologists Audiology Assistant of Internal Medicine [facility] [phone] * Clinton Delcid MD - 08/18/2022 12:58 PM ESTAssociated Order(s): IP CONSULT TO CARDIOLOGY CARDIOLOGY CONSULT NOTE Patient Name: Camille Dawkins Date of Consult: 08/18/2022 Reason for Consultation: combined systolic/diastolic dysfunction, EF 20%, R Pleural effusion. s/p stroke ASSESSMENT AND PLAN: Camille Dawkins is a 62 y.o. female with a history of Afib, T2DM, HTN and HFrEF who presents with the following: PROBLEM LIST 1. Acute on Chronic HFrEF, Non-Ischemic Cardiomyopathy: unclear history from patient but sounds like her cardiomyopathy was recently discovered in past few months. C reportedly without obstructive disease but will need records to confirm. It also sounds like her Afib was diagnosed around the sametime, raising question of arrhythmia-mediated cardiomyopathy. Could also consider hypertensive heart disease. She is somewhat cool and wet on exam, had good response to IV diuresis today. She is on adecent GDMT regimen currently (per patient it's what she could afford), would continue for now. NYHA FC III, ACC/AHA stage C 2. Persistent Afib: again unclear history but diagnosed in past few months, has remained in Afib with controlled rates. [id number] = 6 (HTN, T2DM, female, age, CVA). On eliquis, though had been held during initial stroke workup while ruling out hemorrhage. She states she failed a cardioversion recently, though given concerns that her rhythm may be contributing to her cardiomyopathy, would favorrepeat attempt, perhaps with antiarrhythmic on board. 3. Acute CVA: had acute L sided weakness, s/p revascularization. Slowly improving strength on L side, planning for inpatient rehab 4. HTN: currently well controlled 5. T2DM: insulin dependent RECOMMENDATIONS -appreciate primary team's assistance in obtaining outside hospital cardiology records including recent progress notes, cath reports etc. -would continue IV diuresis for another day, can give another IV 40mg Lasix tomorrow with goal net negative 1-1.5L. Continue strict I/O's, daily weights, electrolyte monitoring and telemetry while diuresing -continue current GDMT with metoprolol succinate, losartan and farxiga -continue eliquis -would consult EP to discuss rhythm control options given concern for tachyarrhythmia-mediated cardiomyopathy. May benefit from a ROBERTO followed by porsche granado and then DCCV given recent failed attempt Thank you for allowing us to participate in the care of this patient. If you have further questionsplease do not hesitate to contact the Cardiology Consult service. We will continue to follow. -- All recommendations preliminary until cosigned by attending physician. -- Clinton Delcid MD Cardiovascular Medicine Fellow, PGY4 [facility] HISTORY: It was my pleasure to see Ms. Camille Dawkins in consultation at the [facility] on 08/18/2022 for evaluation of her heart failure. She is a pleasant 62 y.o. female with a history outlined above who presented to an OSH as a stroke alert with onset of L sided weakness. NIHS was 6, wasn't a candidate for tPA given on blood thinner. CTA showed a R M2 occlusion so she was transferred here where she was taken to OR and revascularization was achieved (TICI 2b). As part of the stroke workup, an ECHO was performed which showed a severely dilated LV with EF <20% and global hypokinesis. No available outside records to corroborate, and she is not a great historian in her current somnolent state, but states that about two months ago she was in the hospital and was told that her heart was weak. She says she underwent a LHC but there were no stents placed. She was also noted to be in Afib at that time, they attempted to cardiovert her but she returned to Afib. She was put on GDMT and her current regimen is what worked best with her insurance and is most affordable. It doesn't sound like she was able to establish with a ob/gyn doctor yet. PAST MEDICAL HISTORY: PAST MEDICAL HISTORY Cardiomyopathy Acute CVA T2DM HTN PAST SURGICAL HISTORY Her has a past surgical history that includes thrombectomy mechanical/infusion for thrombolysis intracranial artery any method (Right, 08/09/2022). FAMILY HISTORY No known family history of coronary artery disease, heart failure or sudden cardiac SOCIAL HISTORY No alcohol, drug or tobacco use ALLERGIES Allergies Allergen Reactions Penicillins Unknown reaction per HOME MEDICATIONS Medications Prior to Admission Medication Sig Dispense Refill Last Dose atorvastatin 40 MG tablet Take 40 mg by mouth daily. dapagliflozin (Farxiga) 10 MG tablet Take 10 mg by mouth daily. DULoxetine [address] Particles capsule DR Take 30 mg by mouth daily. Eliquis 5 MG tablet Take 5 mg by mouth every 12 hours. furOSEmide 20 MG tablet Take 20 mg by mouth daily. gliMEPIride 4 MG tablet Take 4 mg by mouth daily every morning. insulin glargine 100 UNIT/ML vial Inject 20 Units under the skin At bedtime. Insulin Lispro 100 UNIT/ML vial Inject 4 Units under the skin before meals & at bedtime. losartan 25 MG tablet Take 25 mg by mouth daily. metoprolol succinate 100 MG tablet XL Take 100 mg by mouth daily. mirtazapine 15 MG tablet Take 15 mg by mouth At bedtime. pantoprazole [address] tablet DR Take 40 mg by mouth 2 times daily. spironolactone 25 MG tablet Take 12.5 mg by mouth daily. traZODone 100 MG tablet Take 100 mg by mouth At bedtime. [DISCONTINUED] Bismuth Subsalicylate 262 MG Chew Tab Chew 524 mg 3 (three) times a day. [DISCONTINUED] metroNIDAZOLE 500 MG tablet Take 500 mg by mouth 3 times daily. [DISCONTINUED] tetracycline 500 MG capsule Take 500 mg by mouth 4 times daily. 1 hr before or 2 hr after meals, do not take with milk CURRENT MEDICATIONS apixaban 5 mg Oral Q12H atorvastatin 40 mg Oral QHS dapagliflozin 10 mg Oral Daily DULoxetine 30 mg Oral Daily esomeprazole 40 mg Oral Q12H furOSEmide 20 mg Oral Daily insulin glargine injection 5 Units Subcutaneous Q24H Insulin lispro Subcutaneous 4x daily w/meals, HS losartan 12.5 mg Oral Daily metoprolol succinate 100 mg Oral Daily mirtazapine 15 mg Oral QHS senna 8.6 mg Oral QAM traZODone 100 mg Oral QHS REVIEW OF SYSTEMS: Unable to obtain due to current mental status (will fall asleep between questions) PHYSICAL EXAM: Intake/Output Summary (Last 24 hours) at 08/18/2022 1258 Last data filed at 08/18/2022 0601 Gross per 24 hour Intake 0 ml Output -- Net 0 ml Temp: [97.5 F (36.4 C)-97.9 F (36.6 C)] 97.9 F (36.6 C) Pulse (Heart Rate): [86-110] 110 Resp Rate: [17-26] 20 BP: (99-125)/(74-88) 113/74 O2 Sat (%): [91 %-100 %] 92 % Weight: [92.1 kg (203 lb 0.7 oz)] 92.1 kg (203 lb 0.7 oz) BP 113/74 (BP Location: Right arm, BP Position: Lying) Pulse 110 Temp 97.9 F (36.6 C) (Oral) Resp 20 Ht 1.626 m (5' 4.02) Wt 92.1 kg (203 lb 0.7 oz) SpO2 92% BMI 34.83 kg/m General appearance: The patient is somnolent and chronically ill-appearing Heent: L facial droop. Pupils are equal, round Chest: No chest wall deformity. Clear to auscultation bilaterally. Normal respiratory effort. Heart: Heart rate normal, irregularly irregular rhythm. S1, S2 normal. No murmurs, clicks, rubs or gallops. There is no jugular venous distension noted. Abdomen: Soft, non-tender. Normal appearance. Bowel sounds normal. No pulsatile masses or organomegaly. Extremities: Cooler extremities, atraumatic, no cyanosis. No ulcers. 1+ LE edema Pulses: All pulses 2+ and symmetric. Skin: Skin color, texture, turgor normal. No rashes or lesions. DATA REVIEWED: Lab Results Component Value Date SODIUM 133 (L) 08/16/2022 POTASSIUM 5.0 08/16/2022 GLUCOSE 224 (H) 08/18/2022 CHLORIDE 100 08/16/2022 CO2 24 08/16/2022 BUN 41 (H) 08/16/2022 CREATSERUM 1.49 (H) 08/16/2022 Lab Results Component Value Date WBC 9.74 08/16/2022 HGB 10.9 (L) 08/16/2022 HCT 35.4 08/16/2022 PLATELET 180 08/18/2022 MCV 86.3 08/16/2022 Lab Results Component Value Date CHOLESTEROL 67 08/10/2022 TRIG 54 08/10/2022 HDL 25 (L) 08/10/2022 LDLCALC 31 08/10/2022 Lab Results Component Value Date BNP 1,109 (H) 08/18/2022 BNP 1,524 (H) 08/12/2022 EKG, personally reviewed, rate-controlled Afib Telemetry, personally reviewed, afib with controlled rates Most recent echocardiogram: 08/17/22 Dilated LV with severe global systolic dysfunction. EF < 20%. Abnormal diastolic function, at least grade II. Normal RV size with moderate to severe systolic dysfunction. Mild biatrial enlargement. Mild mitral regurgitation. Moderate tricuspid regurgitation. Estimated RVSP 49mmHg. Using CO jet, estimated mPAP is 38mmHg, estimated PADP 25mmHg. No prior echo available for comparison. Most recent ischemic evaluation: none available in chart, though per patient had a recent LHC done Associated attestation - Chantelle Cortez MD - 08/18/2022 10:27 PM EST Attending Attestation: I saw and examined the patient with the fellow Dr. Delcid on 08/18/2022 at the request of Dr. Awa Da Silva MD. I agree with the history, physical exam and care plan as documented by the housestaff,summarized below: Camille Dawkins is a 62 y.o. female who presented with acute stroke and underwent revascularization via thrombectomy. TTE was performed which showed a severely dilated left ventricle with EF less than 20%.She says her heart failure was diagnosed about 2 months ago at [facility]. She was told her EF was in the 30s at that time. Coronary angiography was reportedly performed but no intervention. She was in atrial fibrillation and underwent cardioversion which was only temporarily successful. She was started on a medication regimen which was affordable for her and she has been taking it. She was scheduled for follow-up in [place] but has not made the appointment due to ongoing hospital izations. She admits to some orthopnea and dyspnea on exertion. Denies any chest pain or pressure. She statesher leg swelling has been improving. No abdominal pain or nausea. Has been eating normally here in the hospital. Exam: Constitutional: Alert (but drowsy) and oriented, cooperative, well nourished. She appears her stated age. Eyes: EOMI. Normal conjunctiva and no xanthelasma. Mouth & Throat: Moist mucous membranes and no oral cyanosis. Respiratory/Chest: No pectus excavatum. Normal respiratory effort with no respiratory distress. Clear to auscultation bilaterally, with no evidence of rales, rhonchi or wheezes. Cardiovascular: RRR, normal S1 and S2. No murmurs, rubs, clicks or gallops. Normal, non-displaced PMI. No jugular venous distension noted. Normal carotid upstrokes without bruits. Radial, dorsalis pedis and posterior tibial pulses are 2+ and symmetric. Extremities are cool, 1-2+ pitting edema bilaterally to shins. Abdomen: Soft, non-distended and non-tender with normal bowel sounds. No pulsatile masses or hepatosplenomegaly. Musculoskeletal: Normal range of motion. There is no kyphoscoliosis. Skin: Warm, dry and intact. No visible rashes. No evidence of stasis dermatitis. Psychiatric: Mood, memory, affect and judgment are normal. Independent review and interpretation of data: Labs most notable for an elevated BNP, stable renal function although unclear baseline and no checkfor the last several days, low sodium. Additionally, EKG reveals AF with RVR to 109. TTE from todayreveals severe biventricular systolic dysfunction. ASSESSMENT & PLAN Acute on chronic heart failure with reduced ejection fraction, currently decompensated Biventricular systolic dysfunction due to undifferentiated cardiomyopathy; suspect may be tachycardia mediated based on report of normal coronary angiography and drop in EF from 2 months ago while inatrial fibrillation, although unconfirmed. Recent acute cardioembolic stroke Atrial fibrillation, paroxsymal vs persistent, [id number] of at least 6 HTN Would continue diuresis with a goal net negative 2 L daily. She appears to have responded appropriately to 40 mg IV furosemide. Please check daily chemistry and magnesium while diuresing and keep K >4, Mg >2 Continue current medication regimen Please obtain records from her hospitalization at [facility] in 06/2022. Would consult with Cardiac Electrophysiology colleagues regarding any available rhythm control options, which may be limited given recent stroke. I suspect her cardiomyopathy may be tachycardia mediated, and even if not, I am concerned she will not tolerate ongoing atrial fibrillation with RVR. Will check on her in the morning and would consider transfer to Heart Failure service pending any improvements Chantelle Cortez MD, MPH [employer] Division of Cardiovascular Medicine * Johny Brown MD - 08/09/2022 7:34 AM ESTAssociated Order(s): IP CONSULT TO SURGERY - NEURO Neurosurgery Thrombectomy Consult Note HPI Ms. Camille Dawkins is a 62 y.o. female w/ a history of HTN, DM, afib on Eliquis who presents with left sided weakness and left facial droop noticed this morning. Last known well 08/08 20:00. She takes Eliquis last dose 08/08. Baseline mRS 0 LKW 20:00 NIHSS at [facility] 6 NIHSS at [facility] 9 CTH Negative for hemorrhage CTA R M2 occlusion CTP CBF<30% 2 mL Tmax >6s 88 mL mismatch volume 86 mL mismatch ratio 44 tPA given no ROS: unable to obtain No past medical history on file. No past surgical history on file. No family history on file. Allergies Allergies Allergen Reactions Penicillins Unknown reaction per Infusions sodium chloride 0.9% Scheduled Meds aspirin 81 mg Oral QHS Or aspirin 300 mg Rectal QHS atorvastatin 40 mg Oral QHS bismuth subsalicylate 30 mL Oral 4x daily doxycycline monohydrate 100 mg Oral Q12H enoxaparin 40 mg Subcutaneous QHS insulin regular Subcutaneous Q6H metroNIDAZOLE 500 mg Oral Q8H pantoprazole 40 mg Oral BID senna 8.6 mg Oral QAM Or senna 8.6 mg Per NG tube QAM PRN Meds: acetaminophen OR acetaminophen OR acetaminophen OR acetaminophen, albuterol, bismuth subsalicylate, Calcium Gluconate OR calcium gluconate IVPB, insulin regular AND BLOOD GLUCOSE (POC DEVICE) AND BLOOD GLUCOSE (POC DEVICE) AND COMMUNICATION ORDER FOR NURSING CARE: For Blood Glucose LESS THAN 80 mg/dl AND dextrose AND glucose AND NOTIFY PHYSICIAN, Blood Glucose LESS THAN 80 mg/dl, labetalol, Magnesium Sulfate IVPB, polyethylene glycol OR polyethylene glycol, potassium chloride OR potassium chloride OR Potassium Bicarb-Citric Acid OR potassium chloride, Sodium Phosphate IVPB OR Sodium Phosphate IVPB Home Meds Prior to Admission medications Medication Sig Start Date End Date Taking? Authorizing Provider atorvastatin 40 MG tablet Take 40 mg by mouth daily. Historical Provider Bismuth Subsalicylate 262 MG Chew Tab Chew 524 mg 3 (three) times a day. 08/03/22 08/10/22 Historical Provider carveDILOL 12.5 MG tablet Take 12.5 mg by mouth 2 times daily with meals. Historical Provider dapagliflozin (Farxiga) 10 MG tablet Take 10 mg by mouth daily. Historical Provider DULoxetine [address] Particles capsule DR Take 30 mg by mouth daily. Historical Provider Eliquis 5 MG tablet Take 5 mg by mouth every 12 hours. Historical Provider furOSEmide 20 MG tablet Take 20 mg by mouth daily. Historical Provider gliMEPIride 4 MG tablet Take 4 mg by mouth daily every morning. Historical Provider insulin glargine 100 UNIT/ML vial Inject 20 Units under the skin At bedtime. Historical Provider Insulin Lispro 100 UNIT/ML vial Inject 4 Units under the skin before meals & at bedtime. Historical Provider losartan 25 MG tablet Take 25 mg by mouth daily. Historical Provider metoprolol succinate 100 MG tablet XL Take 100 mg by mouth daily. Historical Provider metroNIDAZOLE 500 MG tablet Take 500 mg by mouth 3 times daily. 08/03/22 08/10/22 Historical Provider mirtazapine 15 MG tablet Take 15 mg by mouth At bedtime. Historical Provider pantoprazole [address] tablet DR Take 40 mg by mouth 2 times daily. Historical Provider spironolactone 25 MG tablet Take 12.5 mg by mouth daily. Historical Provider tetracycline 500 MG capsule Take 500 mg by mouth 4 times daily. 1 hr before or 2 hr after meals, donot take with milk 08/03/22 08/10/22 Historical Provider traZODone 100 MG tablet Take 100 mg by mouth At bedtime. Historical Provider Vitals Temp: [97 F (36.1 C)-97.9 F (36.6 C)] 97.9 F (36.6 C) Pulse (Heart Rate): [93-110] 109 Resp Rate: [20-24] 20 BP: (118-131)/(52-76) 120/76 O2 Sat (%): [81 %-96 %] 96 % Weight: [93.8 kg (206 lb 12.7 oz)] 93.8 kg (206 lb 12.7 oz) Physical Orientedx3 Dysarthric Left facial droop LUE 4/5 LLE 4+/5 RUE/RLE 5/5 Absent sensation in LLE Labs Na/K+/Phos/Mg/Ca: 131/5.0/6.7/1.7/-- (08/09 947) Bun/Creat/Cl/CO2/Glucose: 49/1.64/101/19/152 (08/09 947) No results for input(s): PT, INR in the last 72 hours. Imaging: XR CHEST PORTABLE Final Result IMPRESSION: Mild cardiomegaly. Linear atelectatic changes. CEREBRAL PERFUSION ANALYSIS Final Result IMPRESSION: Large perfusion mismatch in the right MCA territory, with mismatch volume of 86 cc. Small core infarct in the deep white matter, although this does not correspond to the evolving infarct noted on the noncontrast CT. STROKE HEAD-STROKE ALERT ONLY Final Result IMPRESSION: 1. 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 2. No acute intracranial hemorrhage. Findings were discussed with Mariposa Han NP at 7:52 AM on August 09, 2022. I personally viewed and interpreted these images and I have reviewed and approved this report. RO IMAGING FOR NEURO ENDOVASCULAR (Results Pending) ECHOCARDIOGRAM (Results Pending) MRI BRAIN WITHOUT CONTRAST (Results Pending) A/P: Camille Dawkins is a 62 y.o. female w/ a history of HTN, DM, afib on Eliquis, presenting as stroke alert. Exam and imaging findings consistent with acute right M2 occlusion meeting criteria for emergent revascularization. - to OR emergently for thrombectomy - to be admitted to neurocritical care service under NCCU attending postoperatively Staff: Dr. Patel Covering: NS2 ([id number]) ## neurosurgery coverage changes at 0530/1730; if 0530 or 1730 has passed since original consult note placed, please page covering resident above ## Associated attestation - Ángel Patel MD, PhD - 08/09/2022 2:30 PM EST Attending Addendum I have seen and examined the patient and agree with the resident's note. She has an acute right MCA LVO and meets criteria for attempted thrombectomy. [facility]* Discharge Instructions* Delaney Lincoln, CAR DELIVERER-SITE ADMINISTRATOR - 08/16/2022 11:44 AM EST Please take these discharge instructions to your primary care doctor follow appointment to show them,keep them for your reference and refer to them often for follow up appointments.It is best to write your appointments on a personal calendar so you do not miss them,call if you need to change any appointments please. Education: What are the most common symptoms of stroke? The following are the most common symptoms of stroke. However, each individual may experience symptoms differently. If any of these symptoms are present, call 911 (or your local ambulance service) immediately. Treatment is most effective when started immediately. Symptoms may be sudden and include: -Weakness or numbness of the face, arm, or leg, especially on one side of the body -Confusion or difficulty speaking or understanding -Problems with vision such as dimness or loss of vision in one or both eyes -Dizziness or problems with balance or coordination -Problems with movement or walking -Severe headaches with no other known cause, especially if sudden onset All of the above warning signs may not occur with each stroke. Do not ignore any of the warning signs, even if they go away - take action immediately. The symptoms of stroke may resemble other medical conditions or problems. Always consult your physician for a diagnosis We have provided both written and verbal education to the patient and family regarding ischemic andhemorrhagic strokes. We have discussed the warning signs/symptoms as well as causes of stroke. We have discussed the importance of activating 911/EMS in the event of these symptoms. We have reviewed the patient's personal risk factors as well as education on reducing these risk factors. [facility] Personalized Stroke Treatment Plan My Stroke Type: [x] Ischemic Stroke (Blockage of blood flow to the brain) [] Hemorrhagic Stroke (Bleeding in the brain) [] TIA- Transient Ischemic Attack (mini-stroke) My Risk Factors Include: [x] High Blood Pressure [x] Diabetes [] High Cholesterol [] Heart Disease [x] Atrial Fibrillation (Irregular Heart Rate) [] Smoking [x] Obesity [] Clotting Disorder [] Alcohol Abuse [] Drug Abuse [] Prior History [] Family History [] Obstructive Sleep Apnea My Follow-Up Treatment Goals: [x] Blood Pressure < 140/90 [] Stop Smoking Immediately [] LDL < 70 [x] HgA1C levels <7% [x] Decrease BMI to <25 [x] Take all ordered medications [] Avoid non-prescription or over the counter medication not cleared by your physician [x] Limit Alcohol use to no more than 1 drink per day for females and 2 drinks per day for males [x] Do not drive until cleared [x] Follow up with PCP within a week of discharge to home [x] Follow-up with Neurovascular [x] Follow-up with Occupational,physical and speech therapy if ordered [x] Watch out for depression and seek treatment if needed CONTACTS FOR NEUROVASCULAR SERVICE: - You may call your neurovascular doctors office at [phone], if you have questions between 8:30 am and 4:30 pm. - For off hours or the weekend you may call the office or the hospital hoop driving machine operator at and ask for the stroke resident window air conditioner installer to be paged. - If you have any questions or needs, please call Josee Wolff RN, stroke integrated program teacher at [phone] Mon-Fri from 7- ? Any questions concerning your discharge instructions please call Case Management Office [phone] Patient Stroke Resources: [facility] Stroke Support The [facility] Stroke Support Group is for stroke survivors, friends, andfamily members. Meets every Tuesday from 12:00PM to 1:00PM at [facility] ([facility]), [address] [place] [address] Sabiha Cox, at [phone]. If you are outside of the [facility], contact The [employer] at www.strokeassociation.org or 2-772-8-stroke, or for supports groups in your area. Also refer to the Stroke Education booklet you received as part of your stroke education while you were a patient for additional resources Additional Contacts: Evening and Weekend Contacts If you have questions or concerns during evening, weekend, or holiday hours, please call: -[facility] hoop driving machine operator at [phone]. -[facility] hoop driving machine operator at [phone] Ask the hoop driving machine operator to page the on-call doctor for Neurovascular service, they were responsible for your care while you were in the hospital. If you having an emergency, call 911. *In the event of an Emergency: If you have a physical or psychiatric emergency call 911 or go to your local emergency department. You should also call your outpatient provider's emergency number. Other reference numbers: [facility] Intake Office at 906-679-0531; [facility] at 521-163-3473; or Suicide Prevention Hotline at 601-447-1223. *Helpful phone numbers: Free Crisis Hotline: 6-155-936-TALK ( ) Suicide Hotline: 220.805.1958 Seniors Suicide Hotline: 619.485.1160 [facility] Youth: 529.419.4560 [facility] [place]: 546.227.8924 (free counseling) [facility] Access Hotline: 829-672-QAUJ (875-312-4216) 24-hour crisis text hotline: Text the word 4hope to 351-209 for crisis support. Texting this number is free if you have Verizon, T-[employer], AT[employer] or Sprint. [facility] Financial Assistance: If you want to learn more about these programs, please call .There are three programsto help you with the cost of your medical care: Medicaid, Hospital Care Assurance Program (HCAP) & fabienne If you are without Insurance and believe you may qualify for Medicaid/public assistance: The [facility] Department of Job and Family Services can now process gabriel (TANF), food (SNAP) and Medicaid Applications over the phone. Please call [phone] ([phone]) and apply over the phone or apply online at www.benefits.[place].gov. Tuesday-Tuesday 8am-12pm noon. Medication Assistance Programs [employer] members can buy 100+ common prescriptions for FREE, $3 or $6. Annual membership is $36 for individuals and $72 for families (up to 6 people, including pets). Sign up online or enroll at your nearest pharmacy! -[place], web site can provide a significant number of coupons for medications at a much lower stallings. * Medications* ZENIA Pleitez - 08/16/2022 11:43 AM EST Know your medicines Make sure you know why you are taking each medicine. Make a master list of all your medicines. Write down the medicine names and doctors' names. Includedoses and side effects too. And write down why you take each medicine. Include all prescription [id number] medicines, vitamins, and supplements. Keep this list up to date. Take a copy to each doctor visit. Know when you will run out of each medicine. Ask your pharmacist if there are ways the drugstore can remind you to refill your medicines so you do not run out. Write refill reminders on your calendar. Don't wait until you have a few pills left. Ask your pharmacist to plan your refills so that you can belt picker all your medicines at the same time. This can mean fewer trips to the drugstore. If we have prescribed you a new medication during your stay, please contact with your primary physician for refills * Discharge Instr - Activity* ZENIA Pleitez - 08/16/2022 11:43 AM EST Activity -- Please follow these instructions: -Advance your activity as you can tolerate - You may walk all you want. You may go up and down the steps. Use the railing for support - It is normal for your energy level and sleep patterns to change after a stroke - Take rest periods during the day as needed - Complete recovery may take several weeks, months, up to a year. Patience is kapoor. * Discharge Instr - Notify* ZENIA Pleitez - 08/16/2022 11:43 AM EST Activity -- Please follow these instructions: -Advance your activity as you can tolerate - You may walk all you want. You may go up and down the steps. Use the railing for support - It is normal for your energy level and sleep patterns to change after a stroke - Take rest periods during the day as needed - Complete recovery may take several weeks, months, up to a year. Patience is kapoor. documented in this [facility]11-29-2022 Procedure note* Kamilla Jenkins, TRENCHING MACHINE OPERATOR - 08/10/2022 1:36 PM ESTAssociated Order(s): FLEXIBLE ENDOSCOPIC EVALUATION OF SWALLOWING Images from the original note were not included. Acute Care Speech-Language Pathology Flexible Endoscopic Evaluation of Swallowing (FEES) Diet Recommendations: Recommended Method of Nutrition: NPO, Short-term alternate nutrition Recommended Medication Administration (as appropriate per MD): Non-Oral (if DHT access lost consider meds crushed in puree) *Consider limited ice chips following oral care, given strict 1:1 RN supervision to assist in secretions clearance and reduce risk of disuse atrophy. *To prevent potential development of aspiration pneumonia/nosocomial infections, RECOMMEND: Oral care routine q4h and HOB upright as tolerated Discharge Recommendations: Based on the below outcome measures/assessment score(s), and TRENCHING MACHINE OPERATOR clinical judgment, discharge destination recommendation is: Deferred to PT and/or OT discharge recommendations related to mobility and/or ADLs. At discharge, ongoing speech therapy services are recommended to target: Impaired swallow function limiting nutritional status and safety with oral intake for progression to least restrictive diet. Acute TRENCHING MACHINE OPERATOR Outcomes Tracking Communicate basic wants and needs?: yes Demo insight/appreciation of deficits?: no Complete basic problem solving?: no Current therapy frequency recommendation in acute care: Speech/Lang/Cog Therapy Frequency: 3 times a week Swallow Therapy Frequency: 5 times a week Date of Procedure: 08/10/2022 Attending Physician: Sera Saldivar MD General Patient Information Name: Camille Dawkins Gender: female Date of : 1960 Primary Diagnosis: No diagnosis found. No past medical history on file. No past surgical history on file. Current method of nutrition: None Dentition / Oral Hygiene: Natural Reason for Study: Per clinical swallow eval completed this morning: Recommend further assessment (FEES) in order to dynamically assess pharyngeal swallow. FEES chosen over MBS secondary to body habitus and acuity of medical status Patient History Comments: Pt is a 62 y.o. female who presents per chart: past medical history of cardiomyopathy, HLD, HTN, migraine, obesity, diabetes (type 2), recent covid, and fib who presented with L facial droop and L arm/leg weakness. OSH head imaging revealed CTA occlusion of proximal M2 branch of R MCA. She was transferred to this facility for further treatment. She did not receive tPA.She underwent emergent thrombectomy with TICI 2b revascularization and was admitted to NCCU for close neurological monitoring. Repeat CTH 08/10/22 IMPRESSION: The subtle area of low-attenuation in the right insula is unchanged. There is also additional subtle area of low-attenuation in the right frontal colmenares radiata corresponding to the perfusion abnormality from prior CTP. These are compatible with recent infarcts. No evidence of acute hemorrhage. Last known COVID test completed on: NA Prior Study: None on file Subjective: Pt requiring mod verbal/tactile cues to sustain alertness and accept PO trials. Right gaze preference, rare instance of head positioning midline with max verbal cues. Pt perseverating on need for restroom use, able to eventually redirect. Following study RN reporting to this TRENCHING MACHINE OPERATOR the need to orally suction partial prior PO medications inpuree. Pain: General Pain Documentation (Adult, OB, Peds) Presence of Pain: denies pain/discomfort General Pain Descriptors Pain Radiation To: 7 Respiratory Status: O2 Sat (%): 97 % (08/10 1500) O2 Device: nasal cannula (08/10 1200) Flow (L/min): 4 (08/10 1200) CRANIAL NERVE EXAMINATION: not formally completed, see clinical swallow eval from this date Voice Quality: mild hoarse Exam limited by cognition (yes/no): yes, alertness/command following also impacting FEES Procedure Details Procedure Performed & Read by: Kamilla Jenkins TRENCHING MACHINE OPERATOR Scope Serial #: [id number] Feeder Name: Jamin York Topical Anesthetic: none Patient was positioned : Upright. The flexible endoscope was passed through the nasal passage to the level of oropharynx. Food and liquids were tinted with food coloring for easier observation. The scope was passed through the right nares without difficulty. Anatomic/Physiologic Assessment: Velopharyngeal port: Complete closure Base of tongue/lingual tonsils: Normal Vocal Fold Edge Right: Normal Vocal Fold Edge Left: Normal Abductory/Adductory Movement: Normal (head turn right for duration of study) Ventricular Folds: (increased effort on L side) Pharyngeal contraction for pitch glide: Normal Hypopharynx: Normal Epiglottis: Normal Secretion appearance: Clear Consistencies Tested: Consistencies Tested Ice chip: 1 tsp (x3) Thin Liquid : Straw (x3) Liquid- mildly thick (IDDSI 2)/nectar: Straw (x2) Liquid- moderately thick (IDDSI 3)/honey: Straw (x3) Dysphagia- pureed (IDDSI 4): 1/2 tsp (x2) Swallow Observations Swallow initiation: Laryngeal vestibule, Pyriform sinus Tongue base retraction: Impaired Nasopharyngeal entry: None Epiglottic Retroversion: WFL Pharyngeal Residue: residue collection on pharyngeal structures Location of Pharyngeal Residue: tongue base, pharyngeal wall, pyriform sinuses, diffuse (>3 areas) Backflow from esophagus: None Airway Events: Penetration / Aspiration Scale (PAS) Ice: 1 - Material does not enter the airway Thin: 5 - Material enters the airway, contacts the vocal folds, and is not ejected from the airway, 8 - Material enters the airway, passes below the vocal folds, and no effort is made to eject Liquid- mildly thick (IDDSI 2)/nectar: 5 - Material enters the airway, contacts the vocal folds, and is not ejected from the airway Liquid- moderately thick (IDDSI 3)/honey: 1 - Material does not enter the airway, 2 - Material enters the airway, remains above the vocal folds, and is ejected from the airway Dysphagia- pureed (IDDSI 4): 1 - Material does not enter the airway, 3 - Material enters the airway, remains above the vocal folds, and is not ejected from the airway [place] Pharyngeal Residue Severity Rating Scale: (Elvira Cowan., Marixa Camarillo, & Leder, S. (2015). The [place]ena pharyngeal residue severity rating scale: an anatomically defined and image-based tool. Dysphagia, 30, [id number].) Ice Chips Valleculae Severity Rating: Trace (1-5%), Trace Coating of the Mucosa Pyriform Sinus Rating: Trace (1-5%), Trace Coating of Mucosa Thin Liquids (IDDSI 0) Valleculae Severity Rating: Trace (1-5%), Trace Coating of the Mucosa Pyriform Sinus Rating: Trace (1-5%), Trace Coating of Mucosa Mildly Thick Liquids (IDDSI 2)/[place] Valleculae Severity Rating: Trace (1-5%), Trace Coating of the Mucosa Pyriform Sinus Rating: Trace (1-5%), Trace Coating of Mucosa Moderately Thick Liquids (IDDSI 3)/Honey Valleculae Severity Rating: Trace (1-5%), Trace Coating of the Mucosa Pyriform Sinus Rating: Trace (1-5%), Trace Coating of Mucosa Strategy Trialed: Effectiveness: Increased liquid viscosity Minimally effective to reduce aspiration however consistent penetration Still Pictures/Video: See Flexible Endoscopic Evaluation Of Swallowing under Procedures tab in I[facility]IS for all photos and videos recorded. Visualized upon scope entry, medical team notified, ENT resident window air conditioner installer contacted. Impressions: Camille Dawkins was seen for FEES Study and presents with at least moderate oropharyngeal dysphagia, however mentation and alertness also negatively impacting this date s/p acute R MCA CVA with thrombectomy. Oral phase characterized by reduced labial seal on left. Required placement on R side, consistent verbal and tactile cues for adequate acceptance/coordination this date. Trace oral residuals suctioned from oral cavity following study. Pharyngeal phase characterized by swallow initiation with bolus at level of laryngeal vestibule and pyriforms (suspect reduced oral coordination and neurosensory awareness negatively impacting). Adequate epiglottic inversion however suspect reduced laryngeal vestibule closure given penetration of liquids immediately prior to/during swallow remaining in laryngealvestibule upon swallow completion. Suspect aspiration of thin liquids with cords coated and weak/ineffective cough to eject material from subglottic space. Penetration coating the cords with mildly thick liquids and within vestibule with puree solids also not cleared with cued cough, residue eventually decreasing with subsequent swallows. Pt demonstrating multiple swallows with all trials this kevyn e, effective at reducing diffuse residue. Given overall presentation, weak/ineffective cough, reported RN concerns for alertness throughout day, TRENCHING MACHINE OPERATOR proceeding conservatively- recommending continued NPO, ok for ice chips. Should DHT access be removed consideration of necessary meds in puree solids. TRENCHING MACHINE OPERATOR to follow for ongoing bolus challengetrials. When clinically indicated and medically stable to leave ICU floor, consider MBS (in Archie fluoro due to body habitus) in order to objectively assess oral+pharyngeal swallow and possible aspiration during the swallow (weak/ineffective cough and other FEES limitations impacting this date). Patient Education/Instruction This Session: Role of TRENCHING MACHINE OPERATOR in POC, and results/recs, limited further education given pt alertness, not present. Plan for Next Session: Address PO challenge trials RECOMMENDATIONS: Swallow Recommendations Recommended Method of Nutrition: NPO, Short-term alternate nutrition Recommended Medication Administration (as appropriate per MD): Non-Oral (if DHT access lost consider meds crushed in puree) Type of Cues/Supervision: 1:1 supervision (ice chips) Assistance: nurse/aide Recommended Rehab Activities: bolus manipulation exercises Acute TRENCHING MACHINE OPERATOR Goals Plan of Care by BEN Terry at 08/10/2022 1:37 PM Version 1 of 1 Problem: TRENCHING MACHINE OPERATOR - Dysphagia Goal: FEES Description: Patient will accept direct p.o. trials during FEES in order to dynamically assess pharyngeal swallow function, determine least restrictive diet level and best goals/plan of care for patient. Outcome: Completed Goal: Bolus Challenge Goal 1 Description: Patient will swallow therapeutic p.o.trials/bolus challenge swallows (with TRENCHING MACHINE OPERATOR only) of puree solids x10-20 trials, given mod cues, for use of double swallow strategy to improve bolus efficiency/promote reduction of pharyngeal residue, without clinical signs/symptoms of airway penetrati on/aspiration over the course of x1-3 sessions to progress towards potential readiness for a repeatinstrumental swallow evaluation. Outcome: Ongoing Goal: Bolus Challenge Goal 2 Description: Patient will swallow therapeutic p.o.trials/bolus challenge swallows (with TRENCHING MACHINE OPERATOR only) of thin liquids via straw/cup x10-15 trials, given mod cues, for neuro stimulation opportunities without clinical signs/symptoms of airway penetration/aspiration over the course of x1-3 sessions to determine possible readiness for a repeat instrumental swallow evaluation. Outcome: Ongoing Time In: 1330 Time Out: 1345 Total Visit Time: 15 minutes Total Treatment Time (skilled, billable minutes): 15 minutes I used N-95 mask, protective eye shield, gown, and gloves in today's patient interaction. I was assisted by Jamin York during this visit who donned same PPE. Therapist: Kamilla Jenkins MA, [facility]-TRENCHING MACHINE OPERATOR Pager: [phone] License: [email or web address] Email: [email or web address] *Available via ERUCES, Tuesday-Tuesday from 7:00am-3:30pm Upon discontinuation of Acute Care Speech Therapy Services or patient discharge from the hospital this note represents the current Speech Therapy [facility] History and physical note* Kya Trinidad APRN-SITE ADMINISTRATOR - 08/09/2022 9:19 AM EST NEUROCRITICAL CARE HISTORY AND PHYSICAL HOSPITAL VISIT DEMOGRAPHICS Patient: Camille Dawkins Code status: Full Code Admission date: 08/09/2022 7:44 AM Hospital days: LOS: 0 days CHIEF COMPLAINT Left sided weakness HISTORY OF PRESENT ILLNESS Camille Dawkins is a 62 y.o. female with a past history of cardiomyopathy, HLD, HTN, migraine, obesity, DMT2, COVID 07/2022, and afib who presented to outside hospital with left facial weakness, left arm and leg weakness that began when she awoke at 0230 am. LKW was 8 pm when she went to bed. Her imagining from the OS revealed CTA occlusion of proximal M2 branch of right MCA. Patient was transferred to [facility] for further treatment. Patient did not receive TPa due to Eliquis last dose last night 08/08/22. Patient went to OR with neurosurgery for thrombectomy TICI 2b and admitted to NCCU for close neurological monitoring. INTERVAL HISTORY SINCE ADMISSION 08/09/2022: admit to NCCU REVIEW OF SYSTEMS A complete review of systems was negative except for: Neurologic: positive for weakness in extremities HISTORY No past medical history on file. No past surgical history on file. Social History Socioeconomic History Marital status: Spouse name: Not on file Number of children: Not on file Years of education: Not on file Highest education level: Not on file Occupational History Not on file Tobacco Use Smoking status: Not on file Smokeless tobacco: Not on file Substance and Sexual Activity Alcohol use: Not on file Drug use: Not on file Sexual activity: Not on file Other Topics Concern Not on file Social History Narrative Not on file Social Determinants of Health Financial Resource Strain: Not on file Food Insecurity: Not on file Transportation Needs: Not on file Physical Activity: Not on file Stress: Not on file Social Connections: Not on file Intimate Partner Violence: Not on file Housing Stability: Not on file ALLERGIES AND HOME MEDICATIONS Allergies: is allergic to penicillins. Home Medications: Medications Prior to Admission Medication Sig Dispense Refill Last Dose atorvastatin 40 MG tablet Take 40 mg by mouth daily. Bismuth Subsalicylate 262 MG Chew Tab Chew 524 mg 3 (three) times a day. carveDILOL 12.5 MG tablet Take 12.5 mg by mouth 2 times daily with meals. dapagliflozin (Farxiga) 10 MG tablet Take 10 mg by mouth daily. DULoxetine [address] Particles capsule DR Take 30 mg by mouth daily. Eliquis 5 MG tablet Take 5 mg by mouth every 12 hours. furOSEmide 20 MG tablet Take 20 mg by mouth daily. gliMEPIride 4 MG tablet Take 4 mg by mouth daily every morning. insulin glargine 100 UNIT/ML vial Inject 20 Units under the skin At bedtime. Insulin Lispro 100 UNIT/ML vial Inject 4 Units under the skin before meals & at bedtime. losartan 25 MG tablet Take 25 mg by mouth daily. metoprolol succinate 100 MG tablet XL Take 100 mg by mouth daily. metroNIDAZOLE 500 MG tablet Take 500 mg by mouth 3 times daily. mirtazapine 15 MG tablet Take 15 mg by mouth At bedtime. pantoprazole [address] tablet DR Take 40 mg by mouth 2 times daily. spironolactone 25 MG tablet Take 12.5 mg by mouth daily. tetracycline 500 MG capsule Take 500 mg by mouth 4 times daily. 1 hr before or 2 hr after meals, donot take with milk traZODone 100 MG tablet Take 100 mg by mouth At bedtime. Prior to Arrival Meds: Medications Prior to Admission Medication Sig Dispense Refill Last Dose atorvastatin 40 MG tablet Take 40 mg by mouth daily. Bismuth Subsalicylate 262 MG Chew Tab Chew 524 mg 3 (three) times a day. carveDILOL 12.5 MG tablet Take 12.5 mg by mouth 2 times daily with meals. dapagliflozin (Farxiga) 10 MG tablet Take 10 mg by mouth daily. DULoxetine [address] Particles capsule DR Take 30 mg by mouth daily. Eliquis 5 MG tablet Take 5 mg by mouth every 12 hours. furOSEmide 20 MG tablet Take 20 mg by mouth daily. gliMEPIride 4 MG tablet Take 4 mg by mouth daily every morning. insulin glargine 100 UNIT/ML vial Inject 20 Units under the skin At bedtime. Insulin Lispro 100 UNIT/ML vial Inject 4 Units under the skin before meals & at bedtime. losartan 25 MG tablet Take 25 mg by mouth daily. metoprolol succinate 100 MG tablet XL Take 100 mg by mouth daily. metroNIDAZOLE 500 MG tablet Take 500 mg by mouth 3 times daily. mirtazapine 15 MG tablet Take 15 mg by mouth At bedtime. pantoprazole [address] tablet DR Take 40 mg by mouth 2 times daily. spironolactone 25 MG tablet Take 12.5 mg by mouth daily. tetracycline 500 MG capsule Take 500 mg by mouth 4 times daily. 1 hr before or 2 hr after meals, donot take with milk traZODone 100 MG tablet Take 100 mg by mouth At bedtime. Hospital Medications: Infusions: sodium chloride 0.9% Stopped (08/09/22 9451) Scheduled: aspirin 81 mg Oral QHS Or aspirin 300 mg Rectal QHS atorvastatin 40 mg Oral QHS bismuth subsalicylate 30 mL Oral 4x daily doxycycline monohydrate 100 mg Oral Q12H enoxaparin 40 mg Subcutaneous QHS insulin regular Subcutaneous Q6H metroNIDAZOLE 500 mg Oral Q8H pantoprazole 40 mg Oral BID senna 8.6 mg Oral QAM Or senna 8.6 mg Per NG tube QAM PRN: acetaminophen OR acetaminophen OR acetaminophen OR acetaminophen, albuterol, bismuth subsalicylate, Calcium Gluconate OR calcium gluconate IVPB, insulin regular AND BLOOD GLUCOSE (POC DEVICE) AND BLOOD GLUCOSE (POC DEVICE) AND COMMUNICATION ORDER FOR NURSING CARE: For Blood Glucose LESS THAN 80 mg/dl AND dextrose AND glucose AND NOTIFY PHYSICIAN, BloodGlucose LESS THAN 80 mg/dl, labetalol, Magnesium Sulfate IVPB, polyethylene glycol OR polyethylene glycol, potassium chloride OR potassium chloride OR Potassium Bicarb-Citric Acid OR potassium chloride, Sodium Phosphate IVPB OR Sodium Phosphate IVPB PHYSICAL EXAM GENERAL: Alert, no acute distress CARDIO: +S1S2, no m/r/g, Tele Afib PULM: wheezing throughout equal chest rise and fall. ABDOMINAL: soft, nontender, nondistended, active bowel sounds x 4 NEURO: Mental status: alert; oriented to person, place, year, and month; good attention Speech/language: dysarthria Cranial nerves: CN II: Visual rankin intact to confrontation. 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 No nystagmus. CN V: Facial sensation intact to light touch. CN VII: left facial droop CN VIII: Hearing is grossly intact. CN IX and X: Soft palate elevates symmetrically in the midline CN XI: Shoulder shrug asymmetric R>L CN XII: Tongue is midline with normal movement; no fasciculations Motor: Normal bulk and tone. LUE brief antigravity RUE/BLE 5/5 UE Sensation: Extremity sensation intact throughout. Coordination: No ataxia . Blood pressure 105/58, pulse 99, temperature 97.8 F (36.6 C), resp. rate 19, height 1.626 m (5' 4), weight 93.8 kg (206 lb 12.7 oz), SpO2 97 %. ASSESSMENT AND PLAN Neuro: (08/09/2022) Day of Surgery Right MCA ischemic stroke s/p thrombectomy TICI 2b - Initial CVA Management: - Stroke alert performed; summary of imaging findings: occlusion proximal M2 branch of right MCA - tPA Not given>Eliquis last dose 08/08 evening - 08/09 NSGY consulted for thrombectomy, performed and obtained TICI 2b revascularization - Ongoing CVA management: - Monitor neurostatus with neurochecks Q1H and pupilometer Q1H - Prevent cerebral hypoperfusion with goal SBP <160 (see cards) - Imaging: -CTA ([facility]): occlusion proximal M2 branch of the right MCA - MRI B: pending -antiplatelet therapy: Asa tonight - Daily NIHSS: NIH Stroke Scale: NIH Level of Conciousness (Provider): 0 NIH LOC Questions (Provider): 0 NIH LOC Commands (Provider): 0 NIH Best Gaze (Provider): 0 NIH Visual (Provider): 0 NIH Facial Palsy (Provider): 2 NIH Left Arm Motor (Provider): 2 NIH Right Arm Motor (Provider): 0 NIH Left Leg Motor (Provider): 0 NIH Right Leg Motor (Provider): 0 NIH Limb Ataxia (Provider): 0 NIH Sensory (Provider): 0 NIH Best Language (Provider): 0 NIH Dysarthria (Provider): 1 NIH Extinction and Inattention (Provider): 0 NIH Total Score (Provider): 5 - Cytotoxic Cerebral Edema Management: - Goal Na 135 - 145 monitor Na daily Recent Labs 08/09/22 0947 SODIUM 131* OSMOLALITY 294 CHLORIDE 101 - Stroke etiology presumed to be cardioembolic based on the TOAST Criteria. Stroke risk factors include atrial fib., hypercholesterolemia and hypertension. - TTE pending - LDL level pending home atorvastatin 40 mg initiated - HA1C level pending - Initiate antiplatelet therapy ASA - VTE prophylaxis with enoxaparin - Pain/Sedation management - Tylenol 650mg Q4H PRN Pulm: Atelectasis - Goal SpO2 >92% -[id number], encourage pulmonary toileting -CXR: linear atelectasis Wheezing -CXR evaluate for pulmonary edema -albuterol prn -continue home lasix 20 mg daily Cards: Essential HTN HLD Atrial Fibrillation Temp: [97 F (36.1 C)-97.9 F (36.6 C)] 97.8 F (36.6 C) Pulse (Heart Rate): [93-110] 99 Resp Rate: [18-26] 19 BP: (105-131)/(52-85) 105/58 O2 Sat (%): [81 %-98 %] 97 % Weight: [93.8 kg (206 lb 12.7 oz)] 93.8 kg (206 lb 12.7 oz) - Goal SBP <160, MAP >65 - Home antihypertensives: - PRN labetalol and hydralazine -TTE: pending -08/09 ECG: Afib QTc 482 -LDL pending -continue home atorvastatin 40 mg daily Renal/: - Fluid Balance: - Goal: euvolemia - Net pmL/24H, pmL/admission - UOP pmL/24H - External cathter - Maintenance: 0.9NS w/ 20 KCl @ 75 mL/hr - Daily Chem 10; electrolytes replaced per NCCU protocol Recent Labs 08/09/22 0947 SODIUM 131* POTASSIUM 5.0 CHLORIDE 101 CO2 19* BUN 49* CREATSERUM 1.64* MAGNESIUM 1.7 PHOSPHORUS 6.7* ICA 4.32* GI/Nutrition: -will order diet when able to sit up. - Body mass index is 35.5 kg/m . - Bowel regimen: - Last Bowel Movement: (scow captain) - Senna, miralax Endo: DM Type 2 - Goal blood glucose 140-180 Recent Labs 08/09/22 0947 GLUCOSE 152* - Insulin SSI: Q6H ID: Hx H-pylori - Temp (24hrs), Av.6 F (36.4 C), Min:97 F (36.1 C), Max:97.9 F (36.6 C) - PRN Tylenol for T>100.4F -continue H-pylori treatment need 2 days> doxycyline monohydrate, metronidazole, and bismuth subsalicylate Heme/Onc: -CBC pending -OSH WBC 8.6 Hgb 11.1 Hct. 36.4 Plt 478 - Goal plt >100, INR <1.4, Hgb >7 - OR EBL: minimal Musc: - PT/OT consulted and following - Current Activity Order: flat for 12 hours Social/Dispo: - Code status: Full Code - Primary Emergency Contact: Dominic Gardiner - HCPOA/LNOK: Dominic -08/09 Last updated at bedside - Medications reconciled - Discharge planning per PCRM/SW. ICU Checklist: [ ] CAM-ICU [ ] SAT [ ] SBT [ ] DVT ppx; [ x] SCDs; [ x] Lovenox, [ ] heparin [ ] Stress ulcer prophylaxis: - Lines/Tubes: No lines or tubes Discussed with NCCU Attending, Dr. Yariel Trinidad, CAR DELIVERER-SITE ADMINISTRATOR [facility] Pager [phone] 08/09/22 7:17 PM Associated attestation - Sera Saldivar MD - 08/10/2022 11:17 AM EST Please see my separate note for additional details. * Mariposa Han, CAR DELIVERER-SITE ADMINISTRATOR - 08/09/2022 7:06 AM EST Neurovascular Evaluation Note Evaluation Date: 08/09/2022 Unit: UPERI/POOL Consultation was requested by Dr. Sera Saldivar MD Patient status: Emergency Length of stay: 0 days Reason for Consult/Chief Complaint Left hemiparesis History of Present Illness Camille Dawkins is a 62 y.o. female with PMH significant for HTN, DM, Afib on Eliquis- last dose last night 08/08 who presents with left sided weakness. LKW 08/08 @ 1999. She presented to an OSH this morning after waking up with left sided weakness. She was evaluated via telestroke. NIH 6. Not a candidatefor TPA due to Eliquis last night. CTA showed R m2 occlusion. She was [facility]red [facility] for further care. Upon arrival to [facility], NIH is 8. Repeat CTH shows loss of leo white in the Right insula. CTP shows 2ml core and 86 ml penumbra. There was a delay in obtaining CTP due to lack of IV access. IV ultrasound was ultimately used to establish access. MRS 0. Her was updated on the phone and in person. A stroke alert was called for STAT consultation. Time of Level 1 Stroke Alert Activation (Or In House): 734 Arrival Time of Stroke Team : 734 Time of symptom onset: less than 24 hours Patient Location - Onset of Symptoms: Not in a healthcare setting Last Known Well: Date: 08/08/22 Last Known Well: Time: 1999 Source of information: family Review of Systems Neurologic: positive for weakness in extremities Neurovascular-specific History / Information Home antiplatelet/anticoagulation therapy: Anticoagulation: Eliquis. Patient Current Risk Factors: Stroke risk factors include hypertension, atrial fibrillation or diabetes mellitus. Prior stroke history: unknown. Family Hx of Stroke: Parents: unknown Siblings: unknown Stroke Diagnostic/Treatment Eligibility Information Time Based Thrombolytic Eligibility for IV Treatment 1. Last known well: No Time to thrombolytic delayed due to:Time to thrombolytic delayed due to: N/A Stroke Clinical Assessment Information: NIHSS (Provider) Flowsheet Row First Filed Value Provider NIH Stroke Scale NIH Interval (Provider) admission filed on 08/09/2022 0759 NIH Level of Conciousness (Provider) 0 filed on 08/09/2022 075 NIH LOC Questions (Provider) 0 filed on 08/09/2022 075 NIH LOC Commands (Provider) 0 filed on 08/09/2022 0759 NIH Best Gaze (Provider) 0 filed on 08/09/2022 0759 NIH Visual (Provider) 1 filed on 08/09/2022 075 NIH Facial Palsy (Provider) 2 filed on 08/09/2022 0759 NIH Left Arm Motor (Provider) 2 filed on 08/09/2022 0759 NIH Right Arm Motor (Provider) 0 filed on 08/09/2022 0759 NIH Left Leg Motor (Provider) 1 filed on 08/09/2022 075 NIH Right Leg Motor (Provider) 0 filed on 08/09/2022 075 NIH Limb Ataxia (Provider) 0 filed on 08/09/2022 0759 NIH Sensory (Provider) 1 filed on 08/09/2022 0759 NIH Best Language (Provider) 0 filed on 08/09/2022 0759 NIH Dysarthria (Provider) 1 filed on 08/09/2022 0759 NIH Extinction and Inattention (Provider) 0 filed on 08/09/2022 075 NIH Total Score (Provider) 8 filed on 08/09/2022 075 Is NIH=0 Within 180 min of Last Known Well Time? -- Stroke Scales Flowsheet Row Most Recent Value Modified [place] Scale Score Premorbid (MRSS) 0 filed on 08/09/2022 0800 NIH Total Score (Provider) 8 filed on 08/09/2022 075 Past Medical History Medical History: No past medical history on file. SURGICAL HISTORY: No past surgical history on file. SOCIAL HISTORY: Medications PRIOR TO ARRIVAL MEDS: Prior to Admission medications Not on File Current Meds: Current Facility Administered Meds: Current Facility-Administered Medications Medication Dose Route Frequency Provider Last Rate Last Admin [NOV Hold] hydrALAZINE (APRESOLINE) injection 10 mg 10 mg Intravenous Q10 MIN PRN José Miguel Mcgovern MD [NOV Hold] labetalol (NORMODYNE) injection 20 mg 20 mg Intravenous Q10 MIN PRN José Miguel Mcgovern MD [NOV Hold] sodium chloride 0.9% IV solution Intravenous Continuous José Miguel Mcgovern MD Facility-Administered Medications Ordered in Other Encounters Medication Dose Route Frequency Provider Last Rate Last Admin electrolyte-A (PLASMALYTE-A) IV solution Intravenous Continuous PRN Angelina Coreas APRN-BUDGET CONSULTANT New Bag at 08/09/22830 Scheduled Meds: Continuous Infusions: PRN Meds: Vitals Objective Findings: Vital Signs (24hrs): There is no height or weight on file to calculate BMI. Lines/Drains/Airways/Wounds: Patient Lines/Drains/Airways Status Active Lines, Drains, Airways, & Wound Overview Name Placement date Placement time Site Days Peripheral IV Line - Single Lumen 08/09/22830 metacarpal vein (top of hand), left 20 gauge;1 in length 08/09/22830 -- less than 1 Wound Sheath Site 08/09/22820 Right Femoral 08/09/22820 Femoral less than 1 Physical Exam General: Laying comfortably in bed; in no acute distress. CV: RRR. Pulmonary: No increased work of breathing, Equal chest rise bilaterally, no audible wheezing. Abdomen: soft, non-tender Ext: No cyanosis, edema, or deformity Skin: No rash Neurological Examination Psych and Mental status: alert; oriented to person, place, year, and month; good attention Speech/language:dysarthria comprehension intact; object naming intact; repetition intact Cranial nerves: CN II visual rankin full to confrontation without visual extinction CN III, IV, PERRL. EOMI. CN V facial sensation intact to light touch bilaterally in V1, V2, V3 CN VII face,left facial drrop CN VIII hearing grossly intact to voice CN IX & X soft palate elevates symmetrically in the midline, no dysarthria CN XI shoulder shrug full strength bilaterally CNXII tongue protrudes midline Motor: L sided weakness, left facial droop, dysarthria Coordination:decreaed rate on ledt Sensation: decreased on left Gait: deferred Laboratory Results Diagnostics/Procedures: Labs-CBC Labs-Chem 7([facility]) Labs-Coags Additional Labs No results found for: CHOLESTEROL, TRIG, HDL, LDLCALC, LDLDIRECT Labs-Hemoglobin A1C No results found for: HGBA1C Imaging Imaging was not analyzed by [facility] [place] [facility] Stroke Head: loss of leo white in R insula CTA Brain/Neck: OSH-R M2 occlusion CT Perfusion: 2 m core, 86 ml penumbra in R MCA territory Assessment/Impression Camille Dawkins present with left sided weakness, dysarthria likely due to R MCA territory stroke. Plan -Please admit to Neurocritical care (NCC) attending Dr. Saldivar. An ischemic stroke without IV thrombolysis order set has been signed and held. -Neurosurgery Consulted for Thrombectomy -Swallow evaluation prior to any oral intake -Aspirin 81 mg orally or 300 mg rectally -Blood pressure goals with SBP less than 220 -Obtain brain MRI, stroke protocol -ECHO to evaluate cardiac function -Lipid panel, LFTs and HgbA1c to evaluate secondary risk factors for ischemic stroke -Baseline EKG, if not done in ED. Continuous telemetry -PT, OT, Speech and social media intern consults This plan has been discussed with stroke Dr. Da Silva and has been communicated to ED and NCCU teams. Mariposa Han APRN-SITE ADMINISTRATOR 08/09/2022 9:24 AM Other medical problems: 1. Afib-hold eliquis 2. DM-SSI 3. HTN-hold home meds Code Status: No Order DVT prophylaxis: Diet: DIET NPO WITHOUT meds Associated attestation - Awa Da Silva MD - 08/09/2022 11:37 PM EST Stroke Attending Addendum: I have interviewed and examined patient on 08/09. I have reviewed old records. I have independentlyreviewed all labs and imaging including MRI's and CT's. I have reviewed resident's/MARKETING PROGRAM COORDINATOR's note and agree with the following highlights, additions, and addendums: The patient is a 62 y.o. 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 Initial NIHSS was 7. Pre-admission MRS 0. Initial imaging, CTH R insular hypodensity ASPECTS 9, CTA RM2 occlusion, CTP 86cc mimatch Neurological examination shows FIREWORKS INSPECTOR, facial droop, dysarthria MRI pend. LDL pend, HgbA1c pend. Assessment/Plan: Acute ischemic stroke, Post-stroke day # 0. Etiology /TOAST criteria: - likely afib. Stroke work-up including MRI brain, CTA, TTE, lipid panel, HgbA1c. Swallow evaluation. SBP goal < 180. Start daily anti-platelet medication after repeat imaging depending on stroke burden and vascular risk factor modification,Lipitor 40mg. DVT prophylaxis with SCDs and heparin SQ. Stroke education and smoking cessation. PT/OT consults. Awa Da Silva MD [facility]* William Champion RN - 08/09/2022 9:11 AM EST [facility]. [facility] documented in this [facility]U [facility] Emergency department Note* José Miguel Mcgovern MD - 08/09/2022 8:21 AM EST EMERGENCY DEPARTMENT ENCOUNTER CHIEF COMPLAINT Chief Complaint Patient presents with Extremity Weakness HPI Camille Dawkins is a 62 y.o. female who presents as a stroke alert. Patient arrives via EMS as a stroke alert. LKW 1999 Yesterday. Per report patient has lb 0, transferred from outside hospital for neurosurgery evaluation. Left-sided deficits including facial droop, extremity weakness. No trauma. Hx of blood thinners. Transferred to [facility] for further imaging and evaluation by neurovascular attending. REVIEW OF SYSTEMS Constitutional: No chills, fatigue and fever. HENT: No sore throat or rhinorrhea. Eyes: No vision changes or conjunctival injection. Respiratory: No shortness of breath or cough. Cardiovascular: No chest pain, leg swelling. Gastrointestinal: No abdominal distension, abdominal pain, nausea, vomiting or diarrhea. Genitourinary: No dysuria or hematuria. Skin: No rashes or wounds. MSK: No joint pain or swelling. Neurologic: Positive for weakness All other systems reviewed and are negative. PAST MEDICAL HISTORY No past medical history on file. SURGICAL HISTORY No past surgical history on file. CURRENT MEDICATIONS No current outpatient medications on file. ALLERGIES Not on File FAMILY HISTORY No family history on file. SOCIAL HISTORY Social History Socioeconomic History Marital status: Spouse name: Not on file Number of children: Not on file Years of education: Not on file Highest education level: Not on file Occupational History Not on file Tobacco Use Smoking status: Not on file Smokeless tobacco: Not on file Substance and Sexual Activity Alcohol use: Not on file Drug use: Not on file Sexual activity: Not on file Other Topics Concern Not on file Social History Narrative Not on file Social Determinants of Health Financial Resource Strain: Not on file Food Insecurity: Not on file Transportation Needs: Not on file Physical Activity: Not on file Stress: Not on file Social Connections: Not on file Intimate Partner Violence: Not on file Housing Stability: Not on file PHYSICAL EXAM Vital Signs:There were no vitals taken for this visit. Constitutional: Ill Appearing HENT: Normocephalic and atraumatic. Oropharynx is clear and moist. Neck: Normal range of motion. Neck supple. Cardiovascular: Normal rate and regular rhythm. No murmurs. Pulmonary: Effort normal, non-labored. Good aeration and symmetric breath sounds. No wheezes or Rhonchi. Abdominal: Abdomen soft, non-distended. There is no tenderness. No rebound or guarding. MSK: No deformities, joint effusions. Skin: Skin is warm and dry. No rashes or wounds noted. Psychiatric: Normal mood and affect. NIHSS (Provider) Flowsheet Row First Filed Value Provider NIH Stroke Scale NIH Interval (Provider) admission filed on 08/09/2022 0759 NIH Level of Conciousness (Provider) 0 filed on 08/09/2022 0759 NIH LOC Questions (Provider) 0 filed on 08/09/2022 0759 NIH LOC Commands (Provider) 0 filed on 08/09/2022 0759 NIH Best Gaze (Provider) 0 filed on 08/09/2022 0759 NIH Visual (Provider) 1 filed on 08/09/2022 0759 NIH Facial Palsy (Provider) 2 filed on 08/09/2022 0759 NIH Left Arm Motor (Provider) 2 filed on 08/09/2022 0759 NIH Right Arm Motor (Provider) 0 filed on 08/09/2022 0759 NIH Left Leg Motor (Provider) 1 filed on 08/09/2022 0759 NIH Right Leg Motor (Provider) 0 filed on 08/09/2022 0759 NIH Limb Ataxia (Provider) 0 filed on 08/09/2022 0759 NIH Sensory (Provider) 1 filed on 08/09/2022 0759 NIH Best Language (Provider) 0 filed on 08/09/2022 0759 NIH Dysarthria (Provider) 1 filed on 08/09/2022 0759 NIH Extinction and Inattention (Provider) 0 filed on 08/09/2022 0759 NIH Total Score (Provider) 8 filed on 08/09/2022 0759 Is NIH=0 Within 180 min of Last Known Well Time? -- ED COURSE & MEDICAL DECISION MAKING Assessment: Camille Dawkins is a 62 y.o. female who presents as a stroke alert. DDx: Ischemic stroke, hemorrhagic stroke, hypoglycemia, electrolyte abnormality, infection, seizure Initial Plan: Labs: POC glucose, CBC, Chem, LFTs, EKG, PT/INR Imaging: CT head, CT perfusion Therapeutic: PRN BP Control Consultation: Neurovascular ED Course: Patient arrives via EMS as a stroke alert. Patient evaluated at the CT scanner by myself and neurovascular resident. NIH on arrival 8. On 2L NC on arrival, patient denies any respiratory symptoms. Patient taken to the OR emergently by Neurosurgery. Patient will be admitted to the NCCU. At this time the patient requires further workup and management in the inpatient setting. The patient was admitted to the neurovascular service. Patient and family/caregivers were in agreement with the treatment plan and all questions were addressed prior to admission. Will continue to be monitoredwhile in the emergency department. Impression: CVA Disposition: Admission, neurovascular This note was dictated using [employer] medical voice recognition software. Attempts at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 Feels like it is helping her symptoms. She is less irritable and mood feels better. * Insomnia: taking Cymbalta at night as well. Feels like this along with Trazodone and feels like this combination is working best for her. * DM2: Thinks that her BG is elevated due to the stress of the move. (moved earlier this month). BG has been in low 200s post prandial. Currently taking Metformin glimepiride. Other medications are next dose. Given the poorly controlled blood glucose levels initiating Januvia. Discussed about the pote ntial side effects. Starting a low-dose. Plan to increase if blood glucose under good control. * Migraine: NO recent flare ups. * HTN: Does not check her blood pressure regularly. However denies chest pain palpitations or shortness of breath. Takes her medications regularly. * Follow up in a month. A1c before the next appointment. [facility] Work Phone: Evaluation note* Diagnosis Onset Date Resolution Status Atrial fibrillation, new onset acute Type II diabetes mellitus [facility] Work Phone: Evaluation note* Diagnosis Onset Date Resolution Status Atrial fibrillation with RVR acute Cardiomyopathy acute Hypertension [facility] Work Phone: Evaluation note* Diagnosis Onset Date Resolution Status Cardiomyopathy acute Hypertension chronic Atrial fibrillation with RVR resolved Acute dehydration acute Acute kidney injury acute Atrial fibrillation with RVR acute COVID acute Hyponatremia [facility] Work Phone: Evaluation note* Diagnosis Onset Date Resolution Status Cardiomyopathy acute Hypertension chronic Atrial fibrillation with RVR resolved Acute dehydration acute Acute kidney injury acute Atrial fibrillation with RVR acute Cardiomyopathy acute COVID acute Hyponatremia acute [facility] Work Phone: Evaluation note* Gastrointestinal: Soft, nontender, nondistended, centrally obeseMusculoskeletal: Resting comfortably in bedExtremities: Very slight bilateral lower extremity edemaNeurological: Awakens but briefly not answering questions very wellConstitutional: Awake, she is very lethargic, states that she is tired and is not answering questions very wellENMT: BiPAP mask in placeEyes: Extraocular muscles intactHead/Neck: Normocephalic, atraumaticRespiratory/Thorax: Bilateral equal breath sounds on the BiPAPCardiovascular: Irregularly irregular with slight tachycardiaSkin: Warm and dryPsychological: Unable tofully assess [facility]* Thought Content: Does not endorse suicidal or homicidal ideation, no delusions elicited.Thought Perception: Does not endorse auditory or visual hallucinations, does not appear to be responding to hallucinatory stimuli. Cognition: Alert, grossly oriented. No deficits in attention, concentration or language to conversation.Insight: Fair.Judgment: Fair.General: Appropriately groomed and dressed in hospital gown with black hair bonnet.Behavior: Appropriate eye contact.Attitude: Calm, cooperative.Motor Activity: No agitation or retardation.Speech: Regular rate, rhythm, volume and tone, spontaneous, fluent. Mood: EuthymicAffect: Appropriate with full range.Appearance: Appears stated age.Thought Process: Organized, linear, goal directed. Associations are logical. 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 Cerebrovascular accident (CVA), unspecified mechanism Stroke Unspecified cerebral artery occlusion with cerebral infarction Anemia (Low HGB) Anemia, unspecified Renal disease (High Serum Creatinine) Unspecified disorder of kidney and ureter Type 2 Diabetes (A1C > 6.49%) [facility] Diagnosis Onset Date Resolution Status Hypertension chronic Atrial fibrillation with RVR resolved Acute kidney injury acute COVID acute Acute dehydration resolved Atrial fibrillation with RVR resolved Hyponatremia resolved [facility] Work Phone: Evaluation note* Diagnosis Onset Date Resolution Status Hypertension chronic Atrial fibrillation with RVR resolved Acute kidney injury acute COVID acute Acute dehydration resolved Atrial fibrillation with RVR resolved Hyponatremia resolved Atrial fibrillation with rapid ventricular response acute Chest pain acute CHF (congestive heart failure) acute [facility] Work Phone: Evaluation note* Diagnosis Onset Date Resolution Status Acute kidney injury acute COVID acute Acute dehydration resolved Atrial fibrillation with RVR resolved Hyponatremia resolved Atrial fibrillation with rapid ventricular response acute Chest pain acute CHF (congestive heart failure) acute CVA (cerebral vascular accident) acute Finger lesion acute [facility] Work Phone: Evaluation note* Diagnosis Onset Date Resolution Status CHF (congestive heart failure) acute Atrial fibrillation with rapid ventricular response resolved Atrial fibrillation acute Cardiomyopathy acute Fatigue acute HLD (hyperlipidemia) acute Hypertension chronic [facility] Work Phone: Evaluation note* Diagnosis Onset Date Resolution Status Atrial fibrillation acute Cardiomyopathy acute Fatigue acute HLD (hyperlipidemia) acute Hypertension chronic Atrial fibrillation acute Cardiomyopathy acute Fatigue acute HLD (hyperlipidemia) acute Hypertension chronic [facility] Work Phone: Evaluation note* Diagnosis Chronic pain of both shoulders- Primary Observed sleep apnea Cerebrovascular accident (CVA), unspecified mechanism (CMS/HCC) Type 2 diabetes mellitus without complication, with long-term current use of insulin (CMS/[facility]) Secondary dysthymia Dysthymic disorder Insomnia, unspecified type Podagra Acute gouty arthropathy documented in this encounter [facility] Work Phone: Evaluation note* Diagnosis Vitreous floaters of left eye- Primary Type 2 diabetes mellitus with both eyes affected by moderate nonproliferative retinopathy without macular edema, with long-term current use of insulin ([facility]) Vortex keratopathy of both eyes [facility] Vitreous floaters of left eye- Primary Mild nonproliferative diabetic retinopathy of both eyes without macular edema associated with type 2 diabetes mellitus (HCC) Vortex keratopathy of both eyes Ptosis of both eyelids Unspecified ptosis of eyelid [facility] Diagnosis Multiple hypopigmented skin lesions on both forearms- Primary Insomnia, unspecified type Acute cough Type 2 diabetes mellitus without complication, with long-term current use of insulin ([facility]) Podagra Acute gouty arthropathy documented in this encounter [facility] Work Phone: Evaluation note* Diagnosis Onset Date Resolution Status Chronic kidney disease chron ic Obesity chronic Type II diabetes mellitus ch ronic Atrial fibrillation acute Cardiomyopathy acute Fatigue acute HLD (hyperlipidemia) acute Hypertension chronic [facility] Work Phone: Evaluation note* Diagnosis Onset Date Resolution Status Chronic kidney disease chron ic Obesity chronic Type II diabetes mellitus ch ronic Atrial fibrillation acute Cardiomyopathy acute Fatigue acute HLD (hyperlipidemia) acute Hypertension chronic Osteoarthritis of left knee acute Osteoarthritis of left knee acute Abnormal urinalysis acute Atrial fibrillation acute Chest pain acute CHF (congestive heart failure) acute Effusion, left knee acute Hyperkalemia acute Leukocytosis acute MSSA bacteremia acute Osteoarthritis of left knee acute Septic arthritis acute Septic joint of left knee joint acute Chronic kidney disease chron ic Type II diabetes mellitus ch ronic [facility] Work Phone: Evaluation note* Diagnosis Onset Date Resolution Status Obesity chronic Type II diabetes mellitus ch ronic Atrial fibrillation acute Cardiomyopathy acute Fatigue acute HLD (hyperlipidemia) acute Hypertension chronic Osteoarthritis of left knee acute Osteoarthritis of left knee acute Atrial fibrillation acute CHF (congestive heart failure) acute Osteoarthritis of left knee acute Type II diabetes mellitus ch ronic Abnormal urinalysis resolved Chest pain resolved Effusion, left knee resolved Hyperkalemia resolved Leukocytosis resolved MSSA bacteremia resolved UTI (urinary tract infection) resolved Atrial fibrillation acute Cardiomyopathy acute CHF (congestive heart failure) acute Chronic renal failure, stage 3b acute CVA (cerebral vascular accident) acute Debility acute Diabetes mellitus type 2 in obese acute HLD (hyperlipidemia) acute Hypoglycemia acute Osteoarthritis of left knee acute Septic joint of left knee joint acute Hypertension chronic Obesity chronic Type II diabetes mellitus ch ronic Effusion, left knee resolved MSSA bacteremia resolved [facility] Work Phone: Evaluation note* Diagnosis Onset Date Resolution Status Obesity chronic Type II diabetes mellitus ch ronic Atrial fibrillation acute Cardiomyopathy acute Fatigue acute HLD (hyperlipidemia) acute Hypertension chronic Osteoarthritis of left knee acute Osteoarthritis of left knee acute Atrial fibrillation acute CHF (congestive heart failure) acute Osteoarthritis of left knee acute Type II diabetes mellitus ch ronic Abnormal urinalysis resolved Chest pain resolved Effusion, left knee resolved Hyperkalemia resolved Leukocytosis resolved MSSA bacteremia resolved UTI (urinary tract infection) resolved Atrial fibrillation acute Cardiomyopathy acute CHF (congestive heart failure) acute Chronic renal failure, stage 3b acute CVA (cerebral vascular accident) acute Debility acute Diabetes mellitus type 2 in obese acute HLD (hyperlipidemia) acute Hypoglycemia acute Osteoarthritis of left knee acute Septic joint of left knee joint acute Hypertension chronic Obesity chronic Type II diabetes mellitus ch ronic Effusion, left knee resolved MSSA bacteremia resolved Septic joint of left knee joint acute [facility] Work Phone: Evaluation note* Diagnosis Onset Date Resolution Status Atrial fibrillation acute Cardiomyopathy acute Fatigue acute HLD (hyperlipidemia) acute Hypertension chronic Osteoarthritis of left knee acute Osteoarthritis of left knee acute Atrial fibrillation acute CHF (congestive heart failure) acute Osteoarthritis of left knee acute Type II diabetes mellitus ch ronic Abnormal urinalysis resolved Chest pain resolved Effusion, left knee resolved Hyperkalemia resolved Leukocytosis resolved MSSA bacteremia resolved UTI (urinary tract infection) resolved Atrial fibrillation acute Cardiomyopathy acute CHF (congestive heart failure) acute Chronic renal failure, stage 3b acute CVA (cerebral vascular accident) acute Debility acute HLD (hyperlipidemia) acute JAMAAL (obstructive sleep apnea) acute Osteoarthritis of left knee acute Diabetes mellitus type 2 in obese chronic Hypertension chronic Obesity chronic Type II diabetes mellitus ch ronic Effusion, left knee resolved Hypoglycemia resolved MSSA bacteremia resolved Septic joint of left knee joint resolved Septic joint of left knee joint resolved JAMAAL (obstructive sleep apnea) acute Obesity chronic Balance problem chronic Diabetes mellitus type 2 in obese chronic Neuropathy chronic Obesity chronic [facility] Work Phone: Evaluation note* Diagnosis Onset Date Resolution Status Atrial fibrillation acute CHF (congestive heart failure) acute Osteoarthritis of left knee acute Type II diabetes mellitus ch ronic Abnormal urinalysis resolved Chest pain resolved Effusion, left knee resolved Hyperkalemia resolved Leukocytosis resolved MSSA bacteremia resolved UTI (urinary tract infection) resolved Atrial fibrillation acute Cardiomyopathy acute CHF (congestive heart failure) acute Chronic renal failure, stage 3b acute CVA (cerebral vascular accident) acute Debility acute HLD (hyperlipidemia) acute Osteoarthritis of left knee acute Diabetes mellitus type 2 in obese chronic Hypertension chronic Obesity chronic JAMAAL (obstructive sleep apnea) chronic Type II diabetes mellitus ch ronic Effusion, left knee resolved Hypoglycemia resolved MSSA bacteremia resolved Septic joint of left knee joint resolved Septic joint of left knee joint resolved Obesity chronic JAMAAL (obstructive sleep apnea) chronic Balance problem chronic Diabetes mellitus type 2 in obese chronic Neuropathy chronic Obesity chronic Anxiety and depression chron ic Hypertension chronic JAMAAL (obstructive sleep apnea) chronic Tremor chronic Type II diabetes mellitus georgieketty [facility] Work Phone: Evaluation note* Diagnosis Myopia, bilateral- Primary Myopia Presbyopia [facility] Anger, Anxiety: Takes Cymbalta regularly. Feels like it is helping her symptoms. She is less irritab le and mood feels better. * Insomnia: taking Cymbalta at night as well. Feels like this along with Trazodone and feels like this combination is working best for her. * DM2: A1C now is 9.7. Currently taking Metformin glimepiride. Has been taking metformin and glimepiride. Starting Victoza which will help with both DM and obesity as weght has been a concern. discussed about the potential side-effects. * Migraine: NO recent flare ups. * HTN: Does not check her blood pressure regularly. However denies chest pain palpitations or shortness of breath. Takes her medications regularly. * Follow up in a month. [facility] Work Phone: History of Present illness Narrative* Patient is here for medchk and acute concerns. * Acute concerns: * Low libido: starting Sildenafil to be taken as needed. * Shoulder pain: patient reports that her shoulder pain is worsening. * Appears to be OA. discussed potential interventions including PT, joint injection or ortho. * Addendum with results: * Xray shoulder- AC joint arthritis. Offered options of PT, injection or ortho. Patient will let us know. * DM: Most recent A1c was 8.6. Currently taking Metformin glimepiride. Has been taking metformin and glimepiride. She was started on Victoza at the previous visit. However due to the insurance did not cover this medication. It is over thousand dollars so she was not able to start this medication. Continues to have high blood glucose levels. Other alternative medications were explored. Alogliptin may be covered and/or cheaper alternative. Discussed about the potential side-effects. Assess A1c now and before the next appointment. Janumet was started due to insurance issues not covering Alogliptinas well. * Creatinine elevated. endorses polydipsia and polyuria- likely due to hyperglycemia. * Follow up in a month. -[facility] Work Phone: History of Present illness Narrative* Patient is here for follow-up after recent hospital admission. * Patient was diagnosed with atrial fibrillation with RVR recently. She was discharged with carvedilol 12.5 mg. Reports that at discharge her pulse rate was at 70. However in the last couple days her pulse rate has been at 140s. Has been feeling extreme shortness of breath with exertion as well. She has not been able to participate in her daily activities well. Reports that she is not able to tolerate carvedilol. Thinks that she has significant side effects from carvedilol. Diastolic blood pressure is elevated today. She does not think she has a follow-up with a ob/gyn doctor. * Plan: Switching carvedilol to metoprolol. Also increase in dosage to control the heart rate. On review of her chart her echocardiogram shows her left ventricular ejection fraction is 30%. Getting that it was done after her heart rhythm turned into normal sinus rhythm with rate control. Discussed about fluid restrictions that she needs to follow until further evaluated by cardiology. Referral to cardiology is provided. Recommended to seek immediate medical attention if acute worsening of symptoms. She was initiated on furosemide, Eliquis and Farxiga as well. * Diabetes mellitus: Most recent A1c was 8.6. She was transitioned to Janumet at the previous visit due to insurance issues. She was at a started on Farxiga for possible heart failure. This will help with her diabetes as well. We will continue to monitor her blood glucose and pulse rate for now. * Obstructive sleep apnea: Partner reports that she snores and possibly has apneic events. He feels tired during the daytime. * Plan: Checking for obstructive sleep apnea especially in the setting of atrial fibrillation. In labsleep study is ordered. Discussed that potentially she will need another sleep study for CPAP titration. Patient expressed understanding. * Spent about 40 minutes reviewing her chart, discussing patient in her partner concerns. * Follow up in a month. -[facility] Work Phone: Hospital Discharge instructions* Activity:activity as tolerated. * Follow Up Appointment 1:Physician/Dept/Service: follow [facility] [place] * Midline Catheter: [id number] Catheter: single lumen, 4 FrMidline Catheter: right basilic vein (medial side of arm) [facility] Midline Catheter: RUAMidline Catheter: single lumen * Activity:activity as tolerated. May shower. * Labs 1 (Modify Template):Lab Test(s): CBC, Comprehensive Metabolic Panel, MagnesiumDate To Be Drawn: Aug 12Fax Results To: Dr. Ontiveros cardiology [phone] * Additional Orders:Blood Glucose Monitoring: AC and HSWeight: Daily and record. Take these numbers with you to your Cardiology appointment. If your weight increases by more than three pounds from baseline weight, call your Cardiology office.Additional Instructions: Your medications and/or doses may have changed. Please only take the medications listed on these instructions until you are seen at a follow up appointment. It was a pleasure to have met and cared for you! * Call Provider If:Any new concerning symptoms. * Patient Instructions:- CALL 911 IF YOU HAVE ANY OF THE SIGNS AND SYMPTOMS OF HEART FAILURE: 1. Chest pain 2. Significant Shortness of breath 3. Fainting. - Notify your physician immediately if you have shortness of breath; weight gain of 3 lbs. or more; fatigue and loss of energy; swelling of lowerextremities or abdomen; dizziness or fainting; change of appetite; and frequent coughing. - Patientreceived Living With Heart Failure book. - Daily weight on the same scale, same time after voiding and before eating. - Maintain daily weight log. * Activity (Heart Failure):- Balance activity with rest, gradually increase your activity as tolerated. - Exercise as prescribed by your physician. * Home Care Face to Face Certification:Home Care Services Needed: yesSkilled Disciplines Ordered: RN/FRAME FEEDER, PT, OTFace to Face Encounter Completed: yesDate of Encounter: [id number] Necessity for Homecare (based on clinical findings): Short-term RN/PT/OT is needed to monitor for signs and symptoms of decompensation/adverse events from new systolic heart failure. Patient at high risk for re-hospitalization. RN/PT/OT services needed to restore ability to walk without support and establish homeexercise program as patient is at high risk for falls.Homebound Status: homeboundHomebound Due to: Patient with recent exacerbation of acute systolic heart failure disease. Patient experiences dyspnea with minimal exertion. Ambulates limited distance of 20 feet. Patient has poor endurance and requires use of short breaks for safe ambulation in the home. The totality of these findings support a considerable and taxing effort to leave home due to limited mobility and pain.Face to Face Completed and Home Care Orders Reviewed: I certify that this patient is under my care. I have reviewed the information included in the face to face and certify that the home care services ordered are medically necessary for this patient. * Home Care Skilled Service:Home Care Skilled Service: assessment, CHF carepath, diabetes management,follow up teaching, medication, new diagnosis teaching, Rehab (PT/OT/SP eval and treat), weight checkType of Assessment: new diabetic new HF new a-fibAssessment: First Home Care Visit: Home Care to determineCHF: First Home Care Visit: Home Care to determineDiabetes Management: First Home Care Visit: Home Care to determineTeaching: First Home Care Visit: Home Care to determineMed Compliance: FirstHome Care Visit: Home Care to determineNew Diagnosis: First Home Care Visit: Home Care to determineRehab: First Home Care Visit: Home Care to determineWeight Check: First Home Care Visit: Home Care to determine * Follow Up Appointment 1:Physician/Dept/Service: Dr Mitchell Ontiveros / CardiologyScheduled Date/Time:19-Aug-2022 14:00Location: [facility] Ami Rodriguez, [address] [facility], [place] [address] [place] Number: [phone]: Please wear mask to your appointment. Please arrive at least 15 minutes prior to schedule appointment along with any co-pays if it applies, Please bring insurance card, photo id, list of medicines, and discharge papers to your appointment. If you can not keep this appointment, Please call the office directly to reschedule. * Follow Up Appointment 2:Physician/Dept/Service: Dr. Esposito PCPScheduled Date/Time: 13-Aug-2022 12:40Location: [facility] [address] [address] Number: [phone] * Follow Up Appointment 3:Physician/Dept/Service: Structural Procedure evaluation Watchman Procedure Dr. RobertsonPhone Number: [phone]: Call Dr. 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 7.5 cm Rhino placed in the left side. Hold your Eliquis for 3 days until you see ENT. Return if worsening symptoms.[facility] Work Phone: Hospital Discharge instructions Additional Instructions Keep your appointment with your family doctor today. Reason for your dry mouth unclear.[facility] Work Phone: Reason for referral (narrative)* Consultation (Urgent) - New Request Specialty Diagnoses / Procedures [facility] Referred To Contact Diagnoses Combined systolic and diastolic cardiac dysfunction Robert Mujica APRN-CNP [address] [place] [id number] Referral ID Status Reason Start Date Expiration Date V isits Requested Visits Authorized [id number] New Request 08/18/2022 09/12/2023 1 1 Scheduling Instructions Please schedule this patient in the Department of Cardiology. * Consultation (Routine) - New Request Specialty Diagnoses / Procedures [facility] Referred To Contact Neurology Diagnoses Cerebrovascular accident (CVA), unspecified mechanism Delaney Lincoln APRN-CNP [address] [place] [address] Referral ID Status Reason Start Date Expiration Date V isits Requested Visits Authorized [id number] New Request 08/18/2022 09/12/2023 1 1 * Speech Therapy (Routine) - New Request Specialty Diagnoses / Procedures [facility] Referred To Contact Sera Saldivar MD [address] [facility] [place] [address] Referral ID Status Reason Start Date Expiration Date V isits Requested Visits Authorized [id number] New Request 08/10/2022 09/04/2023 1 1 * (Routine) - New Request Specialty Diagnoses / Procedures Referred By Contac t Referred To Contact Procedures NO PHARMACOLOGICAL DVT PROPHYLAXIS Mariposa Han APRN-CNP [address] [address] Referral ID Status Reason Start Date Expiration Date V isits Requested Visits Authorized [id number] New Request 08/09/2022 09/03/2023 1 1 * (Routine) - New Request Specialty Diagnoses / Procedures Referred By Contac t Referred To Contact Procedures DVT/VTE RISK ASSESSMENT Mariposa Han APRN-CNP [address] [address] Referral ID Status Reason Start Date Expiration Date V isits Requested Visits Authorized [id number] New Request 08/09/2022 09/03/2023 1 1 [facility] for referral (narrative)* Consultation (Routine) - Authorized Specialty Diagnoses / Procedures Referred By Contac t Referred To Contact Endocrinology Diagnoses Type 2 diabetes mellitus without complication, with long-term current use of insulin ([facility]) Procedures CO OFFICE/OUTPATIENT NEW HIGH MDM 60-74 MINUTES Nando Esposito MD [facility] [address] [facility], [facility] [address] [place] [address] Diana Simpson MD [address] [place] [id number] Referral ID Status Reason Start Date Expiration Date Visits Requested Visits Authorized [id number] Authorized Specialty Services Required 02/14/2023 08/13/2023 1 1 * Sleep - Outpatient (Routine) - Authorized Specialty Diagnoses / Procedures Referred By Contac t Referred To Contact Sleep Lab Diagnoses Observed sleep apnea Cerebrovascular accident (CVA), unspecified mechanism (CMS/HCC) Procedures In-Center Sleep Study (Non-Sleep Provider Only) Nando Esposito MD [facility] [address] [facility] [place] [facility], [place] [address] Referral ID Status Reason Start Date Expiration Date V isits Requested Visits Authorized [id number] Authorized 02/14/2023 08/13/2023 1 1 * Consultation (Routine) - Authorized Specialty Diagnoses / Procedures Referred By Contac t Referred To Contact Physical Therapy Diagnoses Chronic pain of both shoulders Procedures CO OFFICE/OUTPATIENT NEW HIGH MDM 60-74 MINUTES Nando Esposito MD [facility] [address] [facility], [place] [address] Referral ID Status Reason Start Date Expiration Date Visits Requested Visits Authorized [id number] Authorized Specialty Services Required 02/14/2023 08/13/2023 1 1 [facility] Work Phone: Reason for referral (narrative)* Consultation (Routine) - Pending Review Specialty Diagnoses / Procedures Referred By Contac t Referred To Contact Dermatology Diagnoses Multiple hypopigmented skin lesions on both forearms Procedures CO OFFICE/OUTPATIENT NEW HIGH MDM 60-74 MINUTES Nando Esposito MD [facility] [address] [facility] [place], [place] [phone] Referral ID Status Reason Start Date Expiration Date Visits Requested Visits Authorized [id number] Pending Review Specialty Services Required 05/30/2023 11/26/2023 1 1 Scheduling Instructions Melida Kennedy [facility] Work Phone: Summary Purpose Family History No Family History Records Found Father Name Dates Details Family history of emphysema( V17.6, Z82.5) Status:Active Father Name Dates Details Family history of emphysema( V17.6, Z82.5) Status:Active Unknown Family Member Name Dates Details Family history of emphysema: Father(V17.6, Z82.5) Status:Active Unknown Family Member Name Dates Details Family history of emphysema: Father(V17.6, Z82.5) Status:Active Unknown Family Member Name Dates Details Family history of emphysema: Father(V17.6, Z82.5) Status:Active Unknown Family Member Name Dates Details Family history of emphysema: Father(V17.6, Z82.5) Status:Active Unknown Family Member Name Dates Details Family history of emphysema: Father(V17.6, Z82.5) Status:Active Unknown Family Member Name Dates Details Family history of emphysema: Father(V17.6, Z82.5) Status:Active Unknown Family Member Name Dates Details Family history of emphysema: Father(V17.6, Z82.5) Status:Active Unknown Family Member Name Dates Details Family history of emphysema: Father(V17.6, Z82.5) Status:Active Unknown Family Member Name Dates Details Family history of emphysema: Father(V17.6, Z82.5) Status:Active Unknown Family Member Name Dates Details Family history of emphysema: Father(V17.6, Z82.5) Status:Active Unknown Family Member Name Dates Details Family history of emphysema: Father(V17.6, Z82.5) Status:Active Unknown Family Member Name Dates Details Family history of emphysema: Father(V17.6, Z82.5) Status:Active Unknown Family Member Name Dates Details Family history of emphysema: Father(V17.6, Z82.5) Status:Active Relationship Condition Age at Onset Recorded Date/T duran Unknown Family History?No pe rtinent history Unknown November 30, 2015 10:04am Family History?No pe rtinent history Unknown November 30, 2015 10:04am Relationship Condition Age at Onset Recorded Date/T duran mother Diabetes mellitus Unknown Psoriatic arthritis Unknown Rheumatoid arthritis Unknown father Chronic obstructive pulmonary disease Unk nown Myocardial infarction Unknown Cardiac disease Unknown Unknown Family Member Name Dates Details Family history of emphysema: Father(V17.6, Z82.5) Status:Active Unknown Family Member Name Dates Details Family history of emphysema: Father(V17.6, Z82.5) Status:Active Unknown Family Member Name Dates Details Family history of emphysema: Father(V17.6, Z82.5) Status:Active Unknown Family Member Name Dates Details Family history of emphysema: Father(V17.6, Z82.5) Status:Active Unknown Family Member Name Dates Details Family history of emphysema: Father(V17.6, Z82.5) Status:Active Unknown Family Member Name Dates Details Family history of emphysema: Father(V17.6, Z82.5) Status:Active Unknown Family Member Name Dates Details Family history of emphysema: Father(V17.6, Z82.5) Status:Active Unknown Family Member Name Dates Details Family history of emphysema: Father(V17.6, Z82.5) Status:Active Unknown Family Member Name Dates Details Family history of emphysema: Father(V17.6, Z82.5) Status:Active Unknown Family Member Name Dates Details Family history of emphysema: Father(V17.6, Z82.5) Status:Active Relationship Condition Age at Onset Recorded Date/T duran mother Diabetes mellitus Unknown Psoriatic arthritis Unknown Rheumatoid arthritis Unknown father Chronic obstructive pulmonary disease Unk nown Myocardial infarction Unknown Cardiac disease Unknown Hypertension Unknown Advance Directives No Advanced Directives Records Found Advance Directive Response Recorded Date/ Time Advance Directives No November 28 016 1:01pm Living Will No May 17 5:23pm Power of Medical Office Specialist No May 17, 2022 5:23pm Advance Directive Response Recorded Date/ Time Advance Directives No November 28 016 1:01pm Living Will No May 17 7:22pm Power of Medical Office Specialist No May 17, 2022 7:22pm Advance Directive Response Recorded Date/ Time Advance Directives No November 28 016 1:01pm Living Will No July 05 7:29pm Power of Medical Office Specialist No July 05, 2022 7:29pm Advance Directive Response Recorded Date/ Time Advance Directives No November 28, 2 016 1:01pm Living Will No July 06 2:29am Power of Medical Office Specialist No July 06, 2022 2:29am Latest Code Status on File Code Status Date Activated Date Inactivated Comments Full Code 08/09/2022 9:25 AM Advance Directive Response Recorded Date/ Time Advance Directives No November 28 2 016 12:01pm Living Will No September 08 022 8:31pm Power of Medical Office Specialist No September 08, 2022 8:31pm Advance Directive Response Recorded Date/ Time Advance Directives No November 28 016 12:01pm Living Will No September 09 10:57pm Power of Medical Office Specialist No September 09, 2022 10:57pm Advance Directive Response Recorded Date/ Time Advance Directives No November 28 016 12:01pm Living Will No September 10 5:34am Power of Medical Office Specialist No September 10, 2022 5:34am Advance Directive Response Recorded Date/ Time Advance Directives No November 28 2 016 12:01pm Living Will No November 20, 2022 11:31am Power of Medical Office Specialist No November 20 11:31am Advance Directive Response Recorded Date/ Time Advance Directives No November 28 016 1:01pm Living Will No November 20, 2022 12:31pm Power of Medical Office Specialist No November 20 12:31pm Advance Directive Response Recorded Date/ Time Advance Directives No November 28 016 1:01pm Living Will No June 09, 2023 9:04am Power of Medical Office Specialist No May 9:04am Advance Directive Response Recorded Date/ Time Name of Medical Power of Medical Office Specialist Dominic Gardiner June 21, 2023 3:14am Advance Directives No November 28 016 1:01pm Living Will Yes June 21 3:14am Power of Medical Office Specialist Yes June 21, 2023 3:14am Advance Directive Response Recorded Date/ Time Name of Medical Power of Medical Office Specialist Dominic Gardiner, - pt unsure where documents are located to provide a copy July 06, 2023 3:45pm Advance Directives No November 28, 2 016 12:01pm Living Will Yes July 06 3:45pm Power of Medical Office Specialist Yes July 06, 2023 3:45pm Name of Medical Power of Medical Office Specialist Dominic Gardiner June 21, 2023 2:14am Advance Directive Response Recorded Date/ Time Name of Medical Power of Medical Office Specialist Dominic Gardiner, - pt unsure where documents are located to provide a copy July 06, 2023 3:45pm Name of Medical Power of Medical Office Specialist Dominic Gardiner June 21, 2023 2:14am Name of Medical Power of Medical Office Specialist DOREEN GARDINER, LAUREN August 01, 2023 2:24am Advance Directives No November 28, 2 016 12:01pm Living Will Yes August 01, 023 2:24am Power of Medical Office Specialist Yes August 01, 2023 2:24am Chief Complaint med check, no concerns.med check, pt. c/o pain in R upper arm after horse bite x4 weeks.med check, pt. c/o pain in R upper arm after horse bite x4 weeks. medication f/u Chief Complaint and Reason for Visit Chief Complaint NEW ONSET AFIB Reason for Visit Atrial fibrillation, new onset Type II diabetes mellitus Chief Complaint NEW ONSET AFIB NEW ONSET AFIB NEW ONSET AFIB NEW ONSET AFIB NEW ONSET AFIB Reason for Visit Atrial fibrillation with RVR Cardiomyopathy Hypertension Chief Complaint NEW ONSET AFIB NEW ONSET AFIB NEW ONSET AFIB NEW ONSET AFIB NEW ONSET AFIB NEW ONSET AFIB AFIB WITH RVR, DIVINA, COVID POSITIVE AFIB WITH RVR, DIVINA, COVID POSITIVE Reason for Visit Cardiomyopathy Hypertension Atrial fibrillation with RVR Acute dehydration Acute kidney injury Atrial fibrillation with RVR COVID Hyponatremia Chief Complaint NEW ONSET AFIB NEW ONSET AFIB NEW ONSET AFIB NEW ONSET AFIB NEW ONSET AFIB NEW ONSET AFIB AFIB RVR AFIB WITH RVR, DIVINA, COVID POSITIVE AFIB RVR AFIB RVR Reason for Visit Cardiomyopathy Hypertension Atrial fibrillation with RVR Acute dehydration Acute kidney injury Atrial fibrillation with RVR Cardiomyopathy COVID Hyponatremia Chief Complaint NEW ONSET AFIB NEW ONSET AFIB NEW ONSET AFIB NEW ONSET AFIB NEW ONSET AFIB NEW ONSET AFIB AFIB RVR AFIB WITH RVR, DIVINA, COVID POSITIVE AFIB RVR AFIB RVR STROKE fall Reason for Visit Hypertension Atrial fibrillation with RVR Acute kidney injury COVID Acute dehydration Atrial fibrillation with RVR Hyponatremia Chief Complaint NEW ONSET AFIB NEW ONSET AFIB NEW ONSET AFIB NEW ONSET AFIB NEW ONSET AFIB NEW ONSET AFIB AFIB RVR AFIB WITH RVR, DIVINA, COVID POSITIVE AFIB RVR AFIB RVR STROKE fall CHF EXAC, PAF W/RVR Reason for Visit Hypertension Atrial fibrillation with RVR Acute kidney injury COVID Acute dehydration Atrial fibrillation with RVR Hyponatremia Atrial fibrillation with rapid ventricular response Chest pain CHF (congestive heart failure) Chief Complaint AFIB RVR AFIB WITH RVR, DIVINA, COVID POSITIVE AFIB RVR AFIB RVR STROKE fall CHF EXAC, PAF W/RVR CHF EXAC, PAF W/RVR CHF EXAC, PAF W/RVR CHF EXAC, PAF W/RVR CHF EXAC, PAF W/RVR CHF EXAC, PAF W/RVR CHF EXAC, PAF W/RVR CHF EXAC, PAF W/RVR Reason for Visit Acute kidney injury COVID Acute dehydration Atrial fibrillation with RVR Hyponatremia Atrial fibrillation with rapid ventricular response Chest pain CHF (congestive heart failure) CVA (cerebral vascular accident) Finger lesion Chief Complaint STROKE fall CHF EXAC, PAF W/RVR CHF EXAC, PAF W/RVR CHF EXAC, PAF W/RVR CHF EXAC, PAF W/RVR CHF EXAC, PAF W/RVR CHF EXAC, PAF W/RVR CHF EXAC, PAF W/RVR CHF EXAC, PAF W/RVR s/p [facility] 09-21-22 Reason for Visit CHF (congestive hear t failure) Atrial fibrillation with rapid ventricular response Atrial fibrillation Cardiomyopathy Fatigue HLD (hyperlipidemia) Hypertension Chief Complaint STROKE fall CHF EXAC, PAF W/RVR CHF EXAC, PAF W/RVR CHF EXAC, PAF W/RVR CHF EXAC, PAF W/RVR CHF EXAC, PAF W/RVR CHF EXAC, PAF W/RVR CHF EXAC, PAF W/RVR CHF EXAC, PAF W/RVR s/p [facility] 09-21-22 NOSEBLEED Reason for Visit CHF (congestive hear t failure) Atrial fibrillation with rapid ventricular response Atrial fibrillation Cardiomyopathy Fatigue HLD (hyperlipidemia) Hypertension Chief Complaint s/p [facility] 09-21-22 NOSEBLEED CARDIOMYOPATHY 3 M FU Reason for Visit Atrial fibrillation Cardiomyopathy Fatigue HLD (hyperlipidemia) Hypertension Atrial fibrillation Cardiomyopathy Fatigue HLD (hyperlipidemia) Hypertension Chief Complaint Diabetes 4 M FU EORDERS LEFT KNEE Reason for Visit Chronic kidney disea se Obesity Type II diabetes mellitus Atrial fibrillation Cardiomyopathy Fatigue HLD (hyperlipidemia) Hypertension Chief Complaint Diabetes 4 M FU EORDERS LEFT KNEE DILATED CARDIOMYOPATHY LEFT KNEE LEFT KNEE SEPTIC ARTHRITIS SEPTIC ARTHRITIS SEPTIC ARTHRITIS SEPTIC ARTHRITIS SEPTIC ARTHRITIS SEPTIC ARTHRITIS SEPTIC ARTHRITIS SEPTIC ARTHRITIS SEPTIC ARTHRITIS SEPTIC ARTHRITIS SEPTIC ARTHRITIS SEPTIC ARTHRITIS SEPTIC ARTHRITIS SEPTIC ARTHRITIS SEPTIC ARTHRITIS SEPTIC ARTHRITIS SEPTIC ARTHRITIS SEPTIC ARTHRITIS SEPTIC ARTHRITIS SEPTIC ARTHRITIS Reason for Visit Chronic kidney disea se Obesity Type II diabetes mellitus Atrial fibrillation Cardiomyopathy Fatigue HLD (hyperlipidemia) Hypertension Osteoarthritis of left knee Osteoarthritis of left knee Abnormal urinalysis Atrial fibrillation Chest pain CHF (congestive heart failure) Effusion, left knee Hyperkalemia Leukocytosis MSSA bacteremia Osteoarthritis of left knee Septic arthritis Septic joint of left knee joint Chronic kidney disease Type II diabetes mellitus Chief Complaint Diabetes 4 M FU EORDERS LEFT KNEE DILATED CARDIOMYOPATHY LEFT KNEE LEFT KNEE SEPTIC ARTHRITIS SEPTIC ARTHRITIS SEPTIC ARTHRITIS SEPTIC ARTHRITIS SEPTIC ARTHRITIS SEPTIC ARTHRITIS SEPTIC ARTHRITIS SEPTIC ARTHRITIS SEPTIC ARTHRITIS SEPTIC ARTHRITIS SEPTIC ARTHRITIS SEPTIC ARTHRITIS SEPTIC ARTHRITIS SEPTIC ARTHRITIS SEPTIC ARTHRITIS SEPTIC ARTHRITIS SEPTIC ARTHRITIS SEPTIC ARTHRITIS SEPTIC ARTHRITIS SEPTIC ARTHRITIS L SEPTIC KNEE L SEPTIC KNEE L SEPTIC KNEE L SEPTIC KNEE L SEPTIC KNEE L SEPTIC KNEE L SEPTIC KNEE L SEPTIC KNEE Reason for Visit Obesity Type II diabetes mellitus Atrial fibrillation Cardiomyopathy Fatigue HLD (hyperlipidemia) Hypertension Osteoarthritis of left knee Osteoarthritis of left knee Atrial fibrillation CHF (congestive heart failure) Osteoarthritis of left knee Type II diabetes mellitus Abnormal urinalysis Chest pain Effusion, left knee Hyperkalemia Leukocytosis MSSA bacteremia UTI (urinary tract infection) Atrial fibrillation Cardiomyopathy CHF (congestive heart failure) Chronic renal failure, stage 3b CVA (cerebral vascular accident) Debility Diabetes mellitus type 2 in obese HLD (hyperlipidemia) Hypoglycemia Osteoarthritis of left knee Septic joint of left knee joint Hypertension Obesity Type II diabetes mellitus Effusion, left knee MSSA bacteremia Chief Complaint Diabetes 4 M FU EORDERS LEFT KNEE DILATED CARDIOMYOPATHY LEFT KNEE LEFT KNEE SEPTIC ARTHRITIS SEPTIC ARTHRITIS SEPTIC ARTHRITIS SEPTIC ARTHRITIS SEPTIC ARTHRITIS SEPTIC ARTHRITIS SEPTIC ARTHRITIS SEPTIC ARTHRITIS SEPTIC ARTHRITIS SEPTIC ARTHRITIS SEPTIC ARTHRITIS SEPTIC ARTHRITIS SEPTIC ARTHRITIS SEPTIC ARTHRITIS SEPTIC ARTHRITIS SEPTIC ARTHRITIS SEPTIC ARTHRITIS SEPTIC ARTHRITIS SEPTIC ARTHRITIS SEPTIC ARTHRITIS L SEPTIC KNEE L SEPTIC KNEE L SEPTIC KNEE L SEPTIC KNEE L SEPTIC KNEE L SEPTIC KNEE L SEPTIC KNEE L SEPTIC KNEE HYPERSOMNIA LEFT KNEE Reason for Visit Obesity Type II diabetes mellitus Atrial fibrillation Cardiomyopathy Fatigue HLD (hyperlipidemia) Hypertension Osteoarthritis of left knee Osteoarthritis of left knee Atrial fibrillation CHF (congestive heart failure) Osteoarthritis of left knee Type II diabetes mellitus Abnormal urinalysis Chest pain Effusion, left knee Hyperkalemia Leukocytosis MSSA bacteremia UTI (urinary tract infection) Atrial fibrillation Cardiomyopathy CHF (congestive heart failure) Chronic renal failure, stage 3b CVA (cerebral vascular accident) Debility Diabetes mellitus type 2 in obese HLD (hyperlipidemia) Hypoglycemia Osteoarthritis of left knee Septic joint of left knee joint Hypertension Obesity Type II diabetes mellitus Effusion, left knee MSSA bacteremia Septic joint of left knee joint Chief Complaint Diabetes 4 M FU EORDERS LEFT KNEE DILATED CARDIOMYOPATHY LEFT KNEE LEFT KNEE SEPTIC ARTHRITIS SEPTIC ARTHRITIS SEPTIC ARTHRITIS SEPTIC ARTHRITIS SEPTIC ARTHRITIS SEPTIC ARTHRITIS SEPTIC ARTHRITIS SEPTIC ARTHRITIS SEPTIC ARTHRITIS SEPTIC ARTHRITIS SEPTIC ARTHRITIS SEPTIC ARTHRITIS SEPTIC ARTHRITIS SEPTIC ARTHRITIS SEPTIC ARTHRITIS SEPTIC ARTHRITIS SEPTIC ARTHRITIS SEPTIC ARTHRITIS SEPTIC ARTHRITIS SEPTIC ARTHRITIS L SEPTIC KNEE L SEPTIC KNEE L SEPTIC KNEE L SEPTIC KNEE L SEPTIC KNEE L SEPTIC KNEE L SEPTIC KNEE L SEPTIC KNEE HYPERSOMNIA LEFT KNEE SHAKY? Reason for Visit Obesity Type II diabetes mellitus Atrial fibrillation Cardiomyopathy Fatigue HLD (hyperlipidemia) Hypertension Osteoarthritis of left knee Osteoarthritis of left knee Atrial fibrillation CHF (congestive heart failure) Osteoarthritis of left knee Type II diabetes mellitus Abnormal urinalysis Chest pain Effusion, left knee Hyperkalemia Leukocytosis MSSA bacteremia UTI (urinary tract infection) Atrial fibrillation Cardiomyopathy CHF (congestive heart failure) Chronic renal failure, stage 3b CVA (cerebral vascular accident) Debility Diabetes mellitus type 2 in obese HLD (hyperlipidemia) Hypoglycemia Osteoarthritis of left knee Septic joint of left knee joint Hypertension Obesity Type II diabetes mellitus Effusion, left knee MSSA bacteremia Septic joint of left knee joint Chief Complaint 4 M FU EORDERS LEFT KNEE DILATED CARDIOMYOPATHY LEFT KNEE LEFT KNEE SEPTIC ARTHRITIS SEPTIC ARTHRITIS SEPTIC ARTHRITIS SEPTIC ARTHRITIS SEPTIC ARTHRITIS SEPTIC ARTHRITIS SEPTIC ARTHRITIS SEPTIC ARTHRITIS SEPTIC ARTHRITIS SEPTIC ARTHRITIS SEPTIC ARTHRITIS SEPTIC ARTHRITIS SEPTIC ARTHRITIS SEPTIC ARTHRITIS SEPTIC ARTHRITIS SEPTIC ARTHRITIS SEPTIC ARTHRITIS SEPTIC ARTHRITIS SEPTIC ARTHRITIS SEPTIC ARTHRITIS L SEPTIC KNEE L SEPTIC KNEE L SEPTIC KNEE L SEPTIC KNEE L SEPTIC KNEE L SEPTIC KNEE L SEPTIC KNEE L SEPTIC KNEE HYPERSOMNIA LEFT KNEE SHAKY? Sleep problems 3 M FU JAMAAL; CPAP *AS11 DEVICE TAGGED DEBILITY, L SEPTIC KNEE RX HERE Reason for Visit Atrial fibrillation Cardiomyopathy Fatigue HLD (hyperlipidemia) Hypertension Osteoarthritis of left knee Osteoarthritis of left knee Atrial fibrillation CHF (congestive heart failure) Osteoarthritis of left knee Type II diabetes mellitus Abnormal urinalysis Chest pain Effusion, left knee Hyperkalemia Leukocytosis MSSA bacteremia UTI (urinary tract infection) Atrial fibrillation Cardiomyopathy CHF (congestive heart failure) Chronic renal failure, stage 3b CVA (cerebral vascular accident) Debility HLD (hyperlipidemia) JAMAAL (obstructive sleep apnea) Osteoarthritis of left knee Diabetes mellitus type 2 in obese Hypertension Obesity Type II diabetes mellitus Effusion, left knee Hypoglycemia MSSA bacteremia Septic joint of left knee joint Septic joint of left knee joint JAMAAL (obstructive sleep apnea) Obesity Balance problem Diabetes mellitus type 2 in obese Neuropathy Obesity Chief Complaint 4 M FU EORDERS LEFT KNEE DILATED CARDIOMYOPATHY LEFT KNEE LEFT KNEE SEPTIC ARTHRITIS SEPTIC ARTHRITIS SEPTIC ARTHRITIS SEPTIC ARTHRITIS SEPTIC ARTHRITIS SEPTIC ARTHRITIS SEPTIC ARTHRITIS SEPTIC ARTHRITIS SEPTIC ARTHRITIS SEPTIC ARTHRITIS SEPTIC ARTHRITIS SEPTIC ARTHRITIS SEPTIC ARTHRITIS SEPTIC ARTHRITIS SEPTIC ARTHRITIS SEPTIC ARTHRITIS SEPTIC ARTHRITIS SEPTIC ARTHRITIS SEPTIC ARTHRITIS SEPTIC ARTHRITIS L SEPTIC KNEE L SEPTIC KNEE L SEPTIC KNEE L SEPTIC KNEE L SEPTIC KNEE L SEPTIC KNEE L SEPTIC KNEE L SEPTIC KNEE HYPERSOMNIA LEFT KNEE SHAKY? Sleep problems 3 M FU JAMAAL; CPAP *AS11 DEVICE TAGGED Peripheral vascular disease, unspecified DEBILITY, L SEPTIC KNEE RX HERE Reason for Visit Atrial fibrillation Cardiomyopathy Fatigue HLD (hyperlipidemia) Hypertension Osteoarthritis of left knee Osteoarthritis of left knee Atrial fibrillation CHF (congestive heart failure) Osteoarthritis of left knee Type II diabetes mellitus Abnormal urinalysis Chest pain Effusion, left knee Hyperkalemia Leukocytosis MSSA bacteremia UTI (urinary tract infection) Atrial fibrillation Cardiomyopathy CHF (congestive heart failure) Chronic renal failure, stage 3b CVA (cerebral vascular accident) Debility HLD (hyperlipidemia) JAMAAL (obstructive sleep apnea) Osteoarthritis of left knee Diabetes mellitus type 2 in obese Hypertension Obesity Type II diabetes mellitus Effusion, left knee Hypoglycemia MSSA bacteremia Septic joint of left knee joint Septic joint of left knee joint JAMAAL (obstructive sleep apnea) Obesity Balance problem Diabetes mellitus type 2 in obese Neuropathy Obesity Chief Complaint SEPTIC ARTHRITIS SEPTIC ARTHRITIS SEPTIC ARTHRITIS SEPTIC ARTHRITIS SEPTIC ARTHRITIS SEPTIC ARTHRITIS SEPTIC ARTHRITIS SEPTIC ARTHRITIS SEPTIC ARTHRITIS SEPTIC ARTHRITIS SEPTIC ARTHRITIS SEPTIC ARTHRITIS L SEPTIC KNEE L SEPTIC KNEE L SEPTIC KNEE L SEPTIC KNEE L SEPTIC KNEE L SEPTIC KNEE L SEPTIC KNEE L SEPTIC KNEE HYPERSOMNIA LEFT KNEE SHAKY? Sleep problems 3 M FU JAMAAL; CPAP *AS11 DEVICE TAGGED Peripheral vascular disease, unspecified DEBILITY, L SEPTIC KNEE RX HERE MARKETING PROGRAM COORDINATOR EST CARE PPW SENT Reason for Visit Atrial fibrillation CHF (congestive heart failure) Osteoarthritis of left knee Type II diabetes mellitus Abnormal urinalysis Chest pain Effusion, left knee Hyperkalemia Leukocytosis MSSA bacteremia UTI (urinary tract infection) Atrial fibrillation Cardiomyopathy CHF (congestive heart failure) Chronic renal failure, stage 3b CVA (cerebral vascular accident) Debility HLD (hyperlipidemia) Osteoarthritis of left knee Diabetes mellitus type 2 in obese Hypertension Obesity JAMAAL (obstructive sleep apnea) Type II diabetes mellitus Effusion, left knee Hypoglycemia MSSA bacteremia Septic joint of left knee joint Septic joint of left knee joint Obesity JAMAAL (obstructive sleep apnea) Balance problem Diabetes mellitus type 2 in obese Neuropathy Obesity Anxiety and depression Hypertension JAMAAL (obstructive sleep apnea) Tremor Type II diabetes mellitus Chief Complaint SEPTIC ARTHRITIS SEPTIC ARTHRITIS SEPTIC ARTHRITIS SEPTIC ARTHRITIS SEPTIC ARTHRITIS SEPTIC ARTHRITIS SEPTIC ARTHRITIS SEPTIC ARTHRITIS SEPTIC ARTHRITIS SEPTIC ARTHRITIS L SEPTIC KNEE L SEPTIC KNEE L SEPTIC KNEE L SEPTIC KNEE L SEPTIC KNEE L SEPTIC KNEE L SEPTIC KNEE L SEPTIC KNEE HYPERSOMNIA LEFT KNEE SHAKY? Sleep problems 3 M FU JAMAAL; CPAP *AS11 DEVICE TAGGED Peripheral vascular disease, unspecified DEBILITY, L SEPTIC KNEE RX HERE MARKETING PROGRAM COORDINATOR EST CARE PPW SENT Reason for Visit Atrial fibrillation CHF (congestive heart failure) Osteoarthritis of left knee Type II diabetes mellitus Abnormal urinalysis Chest pain Effusion, left knee Hyperkalemia Leukocytosis MSSA bacteremia UTI (urinary tract infection) Atrial fibrillation Cardiomyopathy CHF (congestive heart failure) Chronic renal failure, stage 3b CVA (cerebral vascular accident) Debility HLD (hyperlipidemia) Osteoarthritis of left knee Diabetes mellitus type 2 in obese Hypertension Obesity JAMAAL (obstructive sleep apnea) Type II diabetes mellitus Effusion, left knee Hypoglycemia MSSA bacteremia Septic joint of left knee joint Septic joint of left knee joint Obesity JAMAAL (obstructive sleep apnea) Balance problem Diabetes mellitus type 2 in obese Neuropathy Obesity Anxiety and depression Hypertension JAMAAL (obstructive sleep apnea) Tremor Type II diabetes mellitus Reason for Referral * post hospital seen by EP new afib may need ablation Medications Administered Section Active Administered Medications - up to 3 most recent administrations Medication Order MAR Action Action Date Dose Rate Site PHENYLephrine 2.5 % 1 Drop (AK-DILATE, JAMILA-SYNEPHRINE) 1 Drop, BOTH EYES, DIRECTED, Starting on Tue03/17/23 at 1300, Until Tue03/18/23 at 0059, Administer for dilation PROTECT FROM LIGHT, [facility] CLINIC MED ORDERS Given 03/17/2023 12:58 PM EDT 1 Drop proparacaine 0.5 % 1 Drop (ALCAINE) 1 Drop, BOTH EYES, DIRECTED, Starting on Tue03/17/23 at 1300, Until Tue03/18/23 at 0059, Administer for pneumo tonometry, tonopen tonometry, or pachymetry. In the event of a proparacaine shortage, administer tetracaine 0.5% ophthalmic drops 1 drop in both eyes as directed for pneumo tonometry, tonopen tonometry, or pachymetry., OPHT CLINIC MED ORDERS Given 03/17/2023 12:58 PM EDT 1 Drop tropicamide 1 % 1 Drop (MYDRIACYL) 1 Drop, BOTH EYES, DIRECTED, Starting on Judy 03/17/23 at 1300, Until Tue03/18/23 at 0059, Administer for dilation, OPHT CLINIC MED ORDERS Given 03/17/2023 12:58 PM EDT 1 Drop Active Administered Medications - up to 3 most recent administrations Medication Order MAR Action Action Date Dose Rate Site fluorescein-benoxinate 0.25-0.4 % 1 Drop (FLURESS) 1 Drop, BOTH EYES, DIRECTED, Starting on Judy 04/28/23 at 1400, Until Tue04/29/23 at 0159, Administer for applanation tonometry. In the event of a Fluress shortage, administer [place]-Fluor 1 drop into both eyes as directed for applanation tonometry Given 04/28/2023 1:47 PM EDT 1 Drop tropicamide 1 % 1 Drop (MYDRIACYL) 1 Drop, BOTH EYES, DIRECTED, Starting on Judy 04/28/23 at 1400, Until Tue04/29/23 at 0159, Administer for dilation Given 04/28/2023 1:47 PM EDT 1 Drop Additional Source Comments INFORMATION SOURCE (unrecogn ized section and content) DATE CREATED AUTHOR 05/12/2018 [facility] DATE CREATED AUTHOR AUTHOR'S ORGANIZ ATION 08/19/2022 [facility] DATE CREATED AUTHOR AUTHOR'S ORGANIZ ATION 09/03/2022 [email or web address] DATE CREATED AUTHOR AUTHOR'S ORGANIZ ATION 09/25/2022 [facility] DATE CREATED AUTHOR AUTHOR'S ORGANIZ ATION 10/18/2022 [facility] DATE CREATED AUTHOR AUTHOR'S ORGANIZ ATION 10/30/2022 [facility] DATE CREATED AUTHOR AUTHOR'S ORGANIZ ATION 11/26/2022 [facility] DATE CREATED AUTHOR AUTHOR'S ORGANIZ ATION 05/31/2023 [facility] DATE CREATED AUTHOR AUTHOR'S ORGANIZ ATION 06/04/2023 [facility] DATE CREATED AUTHOR AUTHOR'S ORGANIZ ATION 06/16/2023 [facility] DATE CREATED AUTHOR AUTHOR'S ORGANIZ ATION 03/04/2024 [facility] DATE CREATED AUTHOR AUTHOR'S ORGANIZ ATION 02/07/2025 [facility] Goals (unrecognized section and content) Goals may be documented in a n alternate sectionGoals may be documented in an alternate sectionGoals may be documented in an alternate section <item><item> Privacy Markings (unrecogniz ed section and content) Section Author: Michelle Littlejohn PROHIBITION ON REDISCLOSURE OF CONFIDENTIAL INFORMATION This notice accompanies a disclosure of information concerning a client made to you with the consent of such client. Section Author: Michelle Littlejohn PROHIBITION ON REDISCLOSURE OF CONFIDENTIAL INFORMATION This notice accompanies a disclosure of information concerning a client made to you with the consent of such client. 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 Left started October. Right started in September. Just gotten worse over the last couple months. Denies injury to the areas. Bilateral big toe joint pain. Reason Comments appointment sched Appointment schedule d Reason Comments Flashes Left Eye Reason Comments Floaters Left Eye Follow up Reason Comments 6 wk ov Has a cough. Would jamil pelayo to talk about how she is taking duloxetine. Has to reschedule sleep study due to being sick Reason Comments Contact Lens Follow Up Scheduled Active and Recently Administ ered Medications (unrecognized section and content) Medication Order 08/18/2022 08/19/2022 08/20/2022 apixaban (ELIQUIS) tablet 5 mg 5 mg, Oral, EVERY 12 HOURS, First dose on Tue08/14/22 at 2100, Until Discontinued, Due to the rapid onset of action of apixaban, no overlap is needed with other anticoagulants (e.g. enoxaparin, heparin)., Indications: Atrial Fibrillation 0918 (Given - Provider: Thais García RN)2108 (Given - Provider: Ozzy Live RN) 812 (Given - Provider: Thais García RN)1957 (Given - Provider: Ozzy Live RN) 08 (Given - Provider: Maricarmen Xie RN) atorvastatin (LIPITOR) tablet 40 mg 40 mg, Oral, DAILY AT BEDTIME, First dose (after last modification) on Tue08/11/22 at 2100, Until Discontinued 2108 (Given - Provider: Ozzy Live RN) 1957 (Given - Provider: Ozzy Live RN) dapagliflozin (FARXIGA) tablet 10 mg 10 mg, Oral, DAILY, First dose on Tue08/18/22 at 1300, Until Discontinued, Do not administer if NPO 1458 (Given - Provider: Thais García RN) 08 (Given - Provider: Thais García RN) 0842 (Given - Provider: Maricarmen Xie, RN) DULoxetine (CYMBALTA) capsule DR 30 mg (CANCELED) 30 mg, Oral, DAILY, First dose on Tue08/12/22 at 0900, Until Discontinued, Swallow capsule whole; do not crush or chew. May add contents of capsule to apple juice or applesauce (but NOT chocolate) taking care not to crush the pellets and damage the enteric coating. 917 (Given - Provider: Thais García RN) 812 (Not Given - Provider: Thais García RN - Reason: Other - Comment: resheduled for bedtime) DULoxetine (CYMBALTA) capsule DR 30 mg 30 mg, Oral, DAILY AT BEDTIME, First dose (after last modification) on Tue08/19/22 at 2100, Until Discontinued, Swallow capsule whole; do not crush or chew. May add contents of capsule to apple juice or applesauce (but NOT chocolate) taking care not to crush the pellets and damage the enteric coating. 1957 (Given - Provider: Ozzy Live RN) esomeprazole (NEXIUM) oral granules packet 40 mg 40 mg, Oral, EVERY 12 HOURS, First dose (after last modification) on Tue08/11/22 at 2100, Until Discontinued, Mix packet contents with at least 15 mL of water to completely dissolve the powder. Let stand 2 min to thicken. Stir or mix again, then administer within 30 min. For oral use, have patient drink entire contents of mixed packet. For enteral tubes: draw mixture into catheter-tipped (Emilio) syringe and administer through enteral tube (size Fr 6 or larger); refill syringe with 15 mL of water and flush., Indications: Continuation of Home Therapy 917 (Not Given - Provider: Thais García RN - Reason: Patient/family refused)2108 (Given - Provider: Ozzy Live RN) 812 (Not Given - Provider: Thais García RN - Reason: Patient/family refused)1957 (Given - Provider: Ozzy Live RN) 45 (Given - Provider: Maricarmen Xie, RN) furOSEmide (LASIX) injection 40 mg (COMPLETED) 40 mg, Intravenous, ONCE, 1 dose, On Tue08/18/22 at 1345, Administer by slow IV push at a rate not exceeding 40mg/min 1318 (Given - Provider: Thais García RN) furOSEmide (LASIX) injection 40 mg (COMPLETED) 40 mg, Intravenous, ONCE, 1 dose, On Judy 08/19/22 at 0715, Administer by slow IV push at a rate not exceeding 40mg/min 0813 (Given - Provider: Thais García RN) furOSEmide (LASIX) tablet 20 mg (CANCELED) 20 mg, Oral, DAILY, First dose on Tue08/13/22 at 0900, Until Discontinued 0918 (Given - Provider: Thais García RN) furOSEmide (LASIX) tablet 40 mg 40 mg, Oral, DAILY, First dose on Tue08/20/22 at 0900, Until Discontinued 831 (Given - Provider: Maricarmen Xie RN) insulin glargine-yfgn (SEMGLEE) injection 5 Units(Linked Group 1) 5 Units, Subcutaneous, EVERY 24 HOURS, First dose (after last modification) on 08/14/22 at 2100, Until Discontinued, Do not mix in syringe with other insulins. 2108 (Given - Provider: Ozzy Live RN) 1957 (Given - Provider: Ozzy Live RN) insulin lispro (HumaLOG) injection(Linked Group 2) Subcutaneous, 4 TIMES DAILY WITH MEALS & AT BEDTIME, First dose on Tue08/11/22 at 1330, Until Discontinued, Insulin to carb ratio: Standard: 1 unit insulin = 10 grams carbs every meal and at bedtime Correction Factor: 151-200 = 1 unit; 201-250 = 2 units; 251-300 = 3 units; 301-350 = 4 units; 351-400 = 5 units; Kwikpen: Prime pen before each injection; refer to Pen Priming and Care Handout for further details. Warning! Confirm patient. Insulin pen is for labeled individual patient use ONLY. 921 (Given - Provider: Thais García RN)131 (Given - Provider: Thais García RN)1725 (Given - Provider: Thais García RN)2108 (Given - Provider: Ozzy Live RN) 09 (Given - Provider: Thais García RN)121 (Given - Provider: Thais García RN)1728 (Given - Provider: Thais García RN)1956 (Given - Provider: Ozzy Live RN) 0821 (Given - Provider: Maricarmen Xie RN)1133 (Given - Provider: Maricarmen Xie RN) lidocaine 4 % patch 1 patch 1 patch, Transdermal, Administer over 12 Hours, EVERY 24 HOURS, First dose on Tue08/20/22 at 0900, Until Discontinued, Apply to LUE . 0948 (Patch Applied - Provider: Maricarmen Xie RN)1344 (Due: Patch Removed - Provider: System Discharge - Comment: Time automatically adjusted from order being discontinued) losartan (COZAAR) tablet 12.5 mg 12.5 mg, Oral, DAILY, First dose on Tue08/18/22 at 1130, Until Discontinued 1255 (Given - Provider: Thais García RN) 0814 (Given - Provider: Thais García RN) 0841 (Given - Provider: Maricarmen Xie RN) magnesium oxide (MAG-OX) tablet 800 mg (COMPLETED) 800 mg, Oral, ONCE, 1 dose, On Tue08/19/22 at 0715 0813 (Given - Provider: Thais García RN) magnesium oxide (MAG-OX) tablet 800 mg (COMPLETED) 800 mg, Oral, ONCE, 1 dose, On Tue08/20/22 at 0800 0832 (Given - Provider: Maricarmen Xie RN) magnesium sulfate 1 g in dextrose 5% 100 mL premix IVPB (COMPLETED) 1 g, Intravenous, Administer over 60 Minutes, ONCE, 1 dose, On Tue08/19/22 at 1645 1627 ($$New Bag$$ - Provider: Thais García RN) metoprolol succinate (TOPROL-XL) tablet XL 100 mg (CANCELED) 100 mg, Oral, DAILY, First dose on Tue08/17/22 at 1300, Until Discontinued, Slow release product. Do not crush. Extended release can be cut in half. 0918 (Given - Provider: Thais García RN) 0813 (Given - Provider: Thais García RN) metoprolol succinate (TOPROL-XL) tablet XL 75 mg 75 mg, Oral, EVERY 12 HOURS, First dose (after last modification) on Tue08/20/22 at 0900, Until Discontinued, Slow release product. Do not crush. Extended release can be cut in half. 0840 (Given - Provider: Maricarmen Xie RN) mirtazapine (REMERON) tablet 15 mg 15 mg, Oral, DAILY AT BEDTIME, First dose on Tue08/16/22 at 2100, Until Discontinued 2108 (Given - Provider: Ozzy Live RN) 1957 (Given - Provider: Ozzy Live RN) potassium chloride (K-DUR) tablet ER 20 mEq (COMPLETED) 20 mEq, Oral, ONCE, 1 dose, On Judy 08/19/22 at 0715, Swallow tablets whole; do not crush, chew, or suck on tablet. Tablet may also be broken in half and each half swallowed separately. 813 (Given - Provider: Thais García RN) potassium chloride (K-DUR) tablet ER 20 mEq (COMPLETED) 20 mEq, Oral, ONCE, 1 dose, On Tue08/20/22 at 0800, Swallow tablets whole; do not crush, chew, or suck on tablet. Tablet may also be broken in half and each half swallowed separately. 830 (Given - Provider: Maricarmen Xie, YOLANDA) senna (SENOKOT) tablet 8.6 mg 8.6 mg, Oral, DAILY EVERY MORNING, First dose (after last modification) on Judy 08/12/22 at 0900, Until Discontinued, Hold if BM in last 2 hours. 917 (Given - Provider: Thais García RN) 812 (Given - Provider: Thais Gracía RN) 832 (Given - Provider: Maricarmen Xie, YOLANDA) traZODone (DESYREL) tablet 100 mg 100 mg, Oral, DAILY AT BEDTIME, First dose on Tue08/16/22 at 2100, Until Discontinued 2108 (Given - Provider: Ozzy Live RN) 1957 (Given - Provider: Ozzy Live RN) PRN Medication Order 08/18/2022 08/19/2022 08/20/2022 acetaminophen (TYLENOL) tablet 325 mg(Linked Group 3) 325 mg, Oral, EVERY 4 HOURS NEEDED, Starting on Tue08/09/22 at 0925, Until Tue08/20/22 at 1544, Mild Pain, Moderate Pain, Maximum dose of acetaminophen is 4000 mg from all sources in 24 hours. 2108 (See Alternative - Provider: Ozzy Live RN) 452 (See Alternative - Provider: Ozzy Live RN) acetaminophen (TYLENOL) tablet 325 mg(Linked Group 3) 325 mg, Per NG tube, EVERY 4 HOURS NEEDED, Starting on Tue08/09/22 at 0925, Until Tue08/20/22 at 1544, Mild Pain, Moderate Pain, Maximum dose of acetaminophen is 4000 mg from all sources in 24 hours. 2108 (See Alternative - Provider: Ozzy Live RN) 452 (See Alternative - Provider: Ozzy Live RN) acetaminophen (TYLENOL) tablet 650 mg(Linked Group 3) 650 mg, Oral, EVERY 4 HOURS NEEDED, Starting on Tue08/09/22 at 0925, Until Tue08/20/22 at 1544, Severe Pain, Oral temp > 99.5, Maximum dose of acetaminophen is 4000 mg from all sources in 24 hours. 2108 (Given - Provider: Ozzy Live RN) 452 (Given - Provider: Ozzy Live RN) acetaminophen (TYLENOL) tablet 650 mg(Linked Group 3) 650 mg, Per NG tube, EVERY 4 HOURS NEEDED, Starting on Tue08/09/22 at 0925, Until Tue08/20/22 at 1544, Severe Pain, Oral temp > 99.5, Maximum dose of acetaminophen is 4000 mg from all sources in 24 hours. 2108 (See Alternative - Provider: Ozzy Live RN) 452 (See Alternative - Provider: Ozzy Live RN) albuterol (PROVENTIL) (2.5 MG/3ML) 0.083% inhalation solution 2.5 mg 2.5 mg, Nebulization, EVERY 6 HOURS NEEDED, Starting on Tue08/18/22 at 1300, Until Tue08/20/22 at 1544, Wheezing, Shortness of Breath 1316 (Given - Provider: Lupe Valdez RCP) cyclobenzaprine (FLEXERIL) tablet 5 mg 5 mg, Oral, 3 TIMES DAILY NEEDED, Starting on Tue08/20/22 at 0820, Until Tue08/20/22 at 1544, Muscle spasms, Moderate Pain dextrose 50% injection 7.5-25 g(Linked Group 2) 7.5-25 g, Intravenous, ADMINISTER DIRECTED, Starting on Tue08/11/22 at 1326, Until Tue08/20/22 at 1544, Blood glucose <80 mg/dL, For patients who are not alert, are NPO, or are on IV insulin infusion administer as directed per Hypoglycemia in Non- Adults Clinical Practice Guideline. For Blood Glucose: 60-79 mg/dL administer 7.5 gm (15ml); 45-59 mg/dL administer 12.5 gm (25ml); less than 45mg/dL administer 25gm (50ml). ++ If additional dextrose 50% needed, contact pharmacy or obtain from crash cart ++ glucose (GLUTOSE) 40 % oral gel 1-2 Tube(Linked Group 2) 1-2 Tube, Oral, ADMINISTER DIRECTED, Starting on Tue08/11/22 at 1326, Until Tue08/20/22 at 1544, Blood glucose <80 mg/dL, For patients who are alert, able to tolerate PO intake and with intact cognitive status administer as directed per Hypoglycemia in Non- Adults Clinical Practice Guideline. For Blood Glucose: 60-79 mg/dL administer 1 tube; 45-59 mg/dl administer 1.5 tubes; less than 45 mg/dL administer 2 tubes. Each tube of 37.5g delivers 15g of carbohydrate. ++ Consider juice or food per Clinical Practice Guideline first if appropriate. For Insta-Glucose product: Each tube of 31g delivers 24g of carbohydrate. Percent strength 77.4% represents glucose content, equal to ~40% dextrose content.++ insulin lispro (HumaLOG) injection(Linked Group 2) Subcutaneous, NEEDED, Starting on Tue08/11/22 at 1326, Until Tue08/20/22 at 1544, Other, As needed for snacks, Insulin to carb ratio: Standard: 1 unit insulin = 10 grams carbs Correction Factor: not to be used with this order. Kwikpen: Prime pen before each injection; refer to Pen Priming and Care Handout for further details. Warning! Confirm patient. Insulin pen is for labeled individual patient use ONLY. labetalol (NORMODYNE) injection 10 mg 10 mg, Intravenous, EVERY 6 HOURS NEEDED, Starting on Tue08/09/22 at 0925, Until Tue08/20/22 at 1544, SBP > 160 mmHg with HR >60 bpm, For vials: labetalol should be treated as a SINGLE USE VIAL. Discard remaining contents after one use., Post-op/Post-Proc polyethylene glycol (MIRALAX) packet 17 g(Linked Group 4) 17 g, Oral, DAILY NEEDED, Starting on Tue08/09/22 at 0925, Until Tue08/20/22 at 1544, Constipation If No Bowel Movement in 48 Hours 2156 (Given - Provider: Ozzy Live RN) polyethylene glycol (MIRALAX) packet 17 g(Linked Group 4) 17 g, Per NG tube, DAILY NEEDED, Starting on Tue08/09/22 at 0925, Until Tue08/20/22 at 1544, Constipation If No Bowel Movement in 48 Hours 2156 (See Alternative - Provider: Ozzy Live RN) traZODone (DESYREL) tablet 50 mg 50 mg, Oral, DAILY AT BEDTIME NEEDED, Starting on Tue08/13/22 at 0000, Until Tue08/20/22 at 1544, Sleep Linked Groups Order Group 1: insulin glargine-yfgn (SEMGLEE) injection 5 UnitsJump to med 5 Units, Subcutaneous, EVERY 24 HOURS, First dose (after last modification) on 08/14/22 at 2100, Until Discontinued
Do not mix in syringe with other insulins.
And NOTIFY PHYSICIAN, OTHER (CANCELED) Routine, CONTINUOUS, Starting on 08/14/22 at 0901, Until Specified
Who to Notify: Pattern Gater
Call Pattern Gater if a.m. Glucose is less than 80 and dose reduction not already ordered. And BLOOD GLUCOSE (POC DEVICE) (CANCELED) Routine, 4 TIMES DAILY BEFORE MEALS & AT BEDTIME, First occurrence on 08/14/22 at 1030
If any blood glucose is greater than 300mg/dl, then repeat BLOOD GLUCOSE (POC DEVICE) in 2 hours. If the initial blood glucose was greater than 300mg/dl and if second blood glucose is greater than 200mg/dl, then notify warehouse analyst. And BLOOD GLUCOSE (POC DEVICE) (CANCELED) Routine, DIRECTED, Starting on 08/14/22 at 0900, Until Specified
Symptoms of Hypoglycemia: sweating, shaking, fatigue, rapid pulse, slow thinking & dizziness. Notify physician w/results. Symptoms of Hyperglycemia: excessive thirst, blurred vision, excessive urination & tiredness. Notify physician w/results. If patient NPO, obtain Blood Glucose (POC) prior to administration of all insulin products. Group 2: insulin lispro (HumaLOG) injectionJump to med Subcutaneous, 4 TIMES DAILY WITH MEALS & AT BEDTIME, First dose on Tue08/11/22 at 1330, Until Discontinued
Insulin to carb ratio: Standard: 1 unit insulin = 10 grams carbs every meal and at bedtime Correction Factor: 151-200 = 1 unit; 201-250 = 2 units; 251-300 = 3 units; 301-350 = 4 units; 351-400 = 5 units; Kwikpen: Prime pen before each injection; refer to Pen Priming and Care Handout for further details. Warning! Confirm patient. Insulin pen is for labeled individual patient use ONLY.
And insulin lispro (HumaLOG) injectionJump to med Subcutaneous, NEEDED, Starting on Tue08/11/22 at 1326, Until Tue08/20/22 at 1544, Other, As needed for snacks
Insulin to carb ratio: Standard: 1 unit insulin = 10 grams carbs Correction Factor: not to be used with this order. Kwikpen: Prime pen before each injection; refer to Pen Priming and Care Handout for further details. Warning! Confirm patient. Insulin pen is for labeled individual patient use ONLY.
And BLOOD GLUCOSE (POC DEVICE) (CANCELED) Routine, 4 TIMES DAILY BEFORE MEALS & AT BEDTIME, First occurrence on Tue08/11/22 at 1530
If any Blood Glucose (POC) is greater than 300mg/dl, then repeat Blood Glucose (POC) in 2 hours. If the initial blood glucose was greater than 300mg/dl and if second blood glucose is greater than 200md/dl, then notify Pattern Gater. And BLOOD GLUCOSE (POC DEVICE) (CANCELED) Routine, DIRECTED, Starting on Tue08/11/22 at 1326, Until Specified
For all Blood Glucose LESS THAN 80 mg/dL, treat per Hypoglycemia in Non- Adults Clinical Practice Guideline (CPG) and recheck glucose 15 min after treatment. Repeat per CPG until glucose GREATER THAN 80 mg/dL. Once glucose IS GREATER THAN 80 mg/dL, recheck Blood Glucose every 1 hour x2, then resume as previously ordered. For Blood Glucose LESS THAN 80 mg/dL on admission OR LESS than 45 mg/dL at any time, obtain POC Blood Glucose every 4 hours for 6 occurrences AFTER treating per CPG. Obtain blood glucose for symptoms of hypoglycemia: sweating, shaking, fatigue, rapid pulse, slow thinking & dizziness. Notify physician w/results. Obtain blood glucose for symptoms of hyperglycemia: excessive thirst, blurred vision, excessive urination & tiredness. Notify physician w/results. If patient NPO, obtain POC Blood Glucose prior to administration of any insulin products. And COMMUNICATION ORDER FOR NURSING CARE: For Blood Glucose LESS THAN 80 mg/dl (CANCELED) Routine, CONTINUOUS, Starting on Tue08/11/22 at 1326, Until Specified
For Blood Glucose LESS THAN 80 mg/dl follow Hypoglycemia in Non- Adults Clinical Practice Guideline (CPG) And dextrose 50% injection 7.5-25 gJump to med 7.5-25 g, Intravenous, ADMINISTER DIRECTED, Starting on Tue08/11/22 at 1326, Until Tue08/20/22 at 1544, Blood glucose <80 mg/dL
For patients who are not alert, are NPO, or are on IV insulin infusion administer as directed per Hypoglycemia in Non- Adults Clinical Practice Guideline. For Blood Glucose: 60-79 mg/dL administer 7.5 gm (15ml); 45-59 mg/dL administer 12.5 gm (25ml); less than 45mg/dL administer 25gm (50ml). ++ If additional dextrose 50% needed, contact pharmacy or obtain from [facility] cart ++
And glucose (GLUTOSE) 40 % oral gel 1-2 TubeJump to med 1-2 Tube, Oral, ADMINISTER DIRECTED, Starting on Tue08/11/22 at 1326, Until Tue08/20/22 at 1544, Blood glucose <80 mg/dL
For patients who are alert, able to tolerate PO intake and with intact cognitive status administer as directed per Hypoglycemia in Non- Adults Clinical Practice Guideline. For Blood Glucose: 60-79 mg/dL administer 1 tube; 45-59 mg/dl administer 1.5 tubes; less than 45 mg/dL administer 2 tubes. Each tube of 37.5g delivers 15g of carbohydrate. ++ Consider juice or food per Clinical Practice Guideline first if appropriate. For Insta-Glucose product: Each tube of 31g delivers 24g of carbohydrate. Percent strength 77.4% represents glucose content, equal to ~40% dextrose content.++
And NOTIFY PHYSICIAN, Blood Glucose LESS THAN 80 mg/dl (CANCELED) Routine, CONTINUOUS, Starting on Tue08/11/22 at 1326, Until Specified
Who to Notify: Pattern Gater
For all Blood Glucose LESS THAN 80 mg/dl, notify Pattern Gater after treatment per Hypoglycemia in Non- Adults Clinical Practice Guideline And Carbohydrate counts with meals (CANCELED) Routine, CONTINUOUS, Starting on Tue08/11/22 at 1326, Until Specified
Carbohydrate counts are to be done after each patient meal and with snack. Group 3: acetaminophen (TYLENOL) tablet 325 mgJump to med 325 mg, Oral, EVERY 4 HOURS NEEDED, Starting on Tue08/09/22 at 0925, Until Tue08/20/22 at 1544, Mild Pain, Moderate Pain
Maximum dose of acetaminophen is 4000 mg from all sources in 24 hours.
Or acetaminophen (TYLENOL) tablet 325 mgJump to med 325 mg, Per NG tube, EVERY 4 HOURS NEEDED, Starting on Tue08/09/22 at 0925, Until Tue08/20/22 at 1544, Mild Pain, Moderate Pain
Maximum dose of acetaminophen is 4000 mg from all sources in 24 hours.
Or acetaminophen (TYLENOL) tablet 650 mgJump to med 650 mg, Oral, EVERY 4 HOURS NEEDED, Starting on Tue08/09/22 at 0925, Until Tue08/20/22 at 1544, Severe Pain, Oral temp > 99.5
Maximum dose of acetaminophen is 4000 mg from all sources in 24 hours.
Or acetaminophen (TYLENOL) tablet 650 mgJump to med 650 mg, Per NG tube, EVERY 4 HOURS NEEDED, Starting on Tue08/09/22 at 0925, Until Tue08/20/22 at 1544, Severe Pain, Oral temp > 99.5
Maximum dose of acetaminophen is 4000 mg from all sources in 24 hours.
Group 4: polyethylene glycol (MIRALAX) packet 17 gJump to med 17 g, Oral, DAILY NEEDED, Starting on Tue08/09/22 at 0925, Until Tue08/20/22 at 1544, Constipation If No Bowel Movement in 48 Hours Or polyethylene glycol (MIRALAX) packet 17 gJump to med 17 g, Per NG tube, DAILY NEEDED, Starting on Tue08/09/22 at 0925, Until Tue08/20/22 at 1544, Constipation If No Bowel Movement in 48 Hours Care Teams (unrecognized sec tion and content) Team Status: Active Member Role Status Dates Dr. Nando Esposito MD Primary Care Provider Activ e Team Status: Inactive Member Role Status Dates Dr. Nando Esposito MD Primary Care Provider, Refe rring Provider Active Ashley Dai PA, PA Active Macy Bradshaw MARKETING PROGRAM COORDINATOR, MARKETING PROGRAM COORDINATOR-C Attending Provider Active Team Status: Inactive Member Role Status Dates Dr. Nando Esposito MD Primary Care Provider, Refe rring Provider Active Ashley Dai PA, PA Attending Provider Active Team Status: Active Member Role Status Dates Dr. Nando Esposito MD Primary Care Provider Activ e Dr. Calin Morrison MD Attending Provider Active Team Status: Inactive Member Role Status Dates Dr. Nando Esposito MD Primary Care Provider Activ e Macy Bradshaw MARKETING PROGRAM COORDINATOR, MARKETING PROGRAM COORDINATOR-C Attending Provider, Referring Elvira sewell Active Team Status: Inactive Member Role Status Dates Dr. Nando Esposito MD Primary Care Provider Activ e Macy Bradshaw MARKETING PROGRAM COORDINATOR, MARKETING PROGRAM COORDINATOR-C Attending Provider Active Team Status: Inactive Member Role Status Dates Dr. Nando Esposito MD Primary Care Provider Activ e Dr. Idris Seymour DO Attending Provider, Emergency Provide r Active Correctional Therapy Teacher Relationship Specialty Start Date End Date Nando Esposito MD [facility] [place] [address] PCP - General Family Medicine 08/09/22 Correctional Therapy Teacher Relationship Specialty Start Date End Date Pcp, No PCP - General 03/27/22 10/12/22 Team Status: Active Member Role Status Dates Dr. Nando Esposito MD Primary Care Provider Activ e Juan Lujan MD Emergency Provider Active Dr. Nathaly Muniz MD Admit Provider, Other Provider Active Dr. Lashae Bearden MD Attending Provider, Other Provid er Active Team Status: Active Member Role Status Dates Dr. Nando Esposito MD Primary Care Provider Activ e Juan Lujan MD Emergency Provider Active Dr. Nathaly Muniz MD Admit Provider, Other Provider Active Dr. Florencio Marti DO Attending Provider, Other Provid er Active Dr. Lashae Bearden MD Other Provider Active Team Status: Inactive Member Role Status Dates Dr. Nando Esposito MD Primary Care Provider Activ e Dr. Florencio Ernst DO Attending Provider, Emergency P roaramis Active Team Status: Inactive Member Role Status Dates Dr. Nando Esposito MD Primary Care Provider Activ e Juan Lujan MD Emergency Provider Active Dr. Nathaly Muniz MD Admit Provider, Other Provider Active Dr. Florencio Marti DO Attending Provider Active Dr. Lashae Bearden MD Other Provider Active Team Status: Inactive Member Role Status Dates Dr. Nando Esposito MD Primary Care Provider Activ e Dr. 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 Nando Esposito MD Primary Care Provider, Refe rring Provider Active VIRA Guerra Attending Provider Active Team Status: Inactive Member Role Status Dates Dr. Nando Esposito MD Primary Care Provider Activ e Ashley Dai PA, PA Attending Provider, Referr ing Provider Active Team Status: Inactive Member Role Status Dates Dr. Nando Esposito MD Primary Care Provider Activ e Dr. Melani Hamilton MD Emergency Provider Active Team Status: Inactive Member Role Status Dates Dr. Nando Esposito MD Primary Care Provider, Refe rring Provider Active Anatoliy Moreno MD Attending Provider Active Team Status: Active Member Role Status Dates Dr. Nando Esposito MD Primary Care Provider Activ e Dr. Calin Morrison MD Attending Provider Active Ashley Dai PA, PA Referring Provider Active Team Status: Active Member Role Status Dates Dr. Nando Esposito MD Primary Care Provider Activ e Dr. Bree Dave , DO Emergency Provider Active Dr. Hebert Ruiz MD Admit Provider, Attending Provider, Other Provider Active Dr. Yajaira Bryan , DO Other Provider Active Anatoliy Moreno MD Other Provider Active Team Status: Active Member Role Status Dates Dr. Nando Esposito MD Primary Care Provider Activ e Dr. Bree Dave , DO Emergency Provider Active Dr. Hebert Ruiz MD Admit Provider, Other Provide r Active Dr. Yajaira Bryan , DO Other Provider Active Anatoliy Moreno MD Attending Provider, Other Provider Active Team Status: Active Member Role Status Dates Dr. Nando Esposito MD Primary Care Provider Activ e Dr. Bree Dave , DO Emergency Provider Active Dr. Hebert Ruiz MD Admit Provider, Other Provide r Active Dr. Yajaira Bryan , DO Other Provider Active Anatoliy Moreno MD Attending Provider, Other Provider Active Dr. Comfort Cheung MD Other Provider Active Team Status: Active Member Role Status Dates Dr. Nando Esposito MD Primary Care Provider Activ e Dr. Bree Dave , DO Emergency Provider Active Dr. Hebert Ruiz MD Admit Provider, Other Provide r Active Dr. Yajaira Bryan , DO Attending Provider, Other Provide r Active Anatoliy Moreno MD Other Provider Active Dr. Comfort Cheung MD Other Provider Active Team Status: Active Member Role Status Dates Dr. Nando Esposito MD Primary Care Provider Activ e Dr. Bree Godman , DO Emergency Provider Active Dr. Hebert Ruiz MD Admit Provider, Other Provide r Active Anatoliy Moreno MD Other Provider Active Dr. Comfort Cheung MD Other Provider Active Dr. Shayla Kennedy MD Attending Provider, Other Prov ider Active Dr. Yajaira Bryan , DO Other Provider Active Team Status: Active Member Role Status Dates Dr. Nando Esposito MD Primary Care Provider Activ e Dr. Bree Dave , DO Emergency Provider Active Dr. Hebert Ruiz MD Admit Provider, Other Provide r Active Anatoliy Moreno MD Attending Provider, Other Provider Active Dr. Comfort Cheung MD Other Provider Active Dr. Shayla Kennedy MD Other Provider Active Dr. Yajaira Bryan , DO Other Provider Active Team Status: Active Member Role Status Dates Dr. Nando Esposito MD Primary Care Provider Activ e Dr. Bree Dave , DO Emergency Provider Active Dr. Hebert Ruiz MD Admit Provider, Other Provide r Active Anatoliy Moreno MD Other Provider Active Dr. Comfort Cheung MD Other Provider Active Dr. Yajaira Bryan , DO Other Provider Active Dr. Lashae Bearden MD Attending Provider, Other Provid er Active Dr. Shayla Kennedy MD Other Provider Active Team Status: Inactive Member Role Status Dates Dr. Nando Esposito MD Primary Care Provider Activ e Dr. Melani Hamilton MD Attending Provider, Emergency Provider Active Team Status: Inactive Member Role Status Dates Dr. Nando Esposito MD Primary Care Provider Activ e Dr. Bree Dave , DO Emergency Provider Active Dr. Hebert Ruiz MD Admit Provider, Other Provide r Active Anatoliy Moreno MD Other Provider Active Dr. Comfort Cheung MD Other Provider Active Dr. Yajaira Bryan , DO Other Provider Active Dr. Lashae Bearden MD Attending Provider Active Dr. Shayla Kennedy MD Other Provider Active Team Status: Active Member Role Status Dates Dr. Nando Esposito MD Primary Care Provider Activ e Dr. Calin Morrison MD Attending Provider, Referring Pro vider Active Team Status: Active Member Role Status Dates Dr. Nando Esposito MD Primary Care Provider Activ e Dr. Lisbet Herrera , DO Admit Pr ovider, Attending Provider, Other Provider Active Dr. Comfort Cheung MD Other Provider Active Team Status: Inactive Member Role Status Dates Dr. Nando Esposito MD Primary Care Provider Activ e Dr. Lisbet Herrera DO Admit Provider, Attend ing Provider Active Dr. Comfort Cheung MD Other Provider Active Team Status: Inactive Member Role Status Dates Dr. Nando Esposito MD Primary Care Provider Activ e Dr. Carlos Pace MD Attending Provider Active Team Status: Active Member Role Status Dates Dr. Carlos Pace MD Primary Care Provider Active Team Status: Inactive Member Role Status Dates Dr. Nicolasa Izquierdo DO Emergency Provider Active Dr. Carlos Pace MD Primary Care Provider Active Team Status: Inactive Member Role Status Dates Dr. Nando Esposito MD Referring Provider Active Kait Finn NP-C Attending Provider Active Dr. Carlos Pace MD Primary Care Provider Active Team Status: Inactive Member Role Status Dates Dr. Nando Esposito MD Referring Provider Active Gabi Gottlieb NP, MARKETING PROGRAM COORDINATOR-C Attending Provider Active Dr. Carlos Pace MD Primary Care Provider Active Team Status: Active Member Role Status Dates Dr. Lisbet Herrera DO Attending Provider, Re ferring Provider Active Dr. Carlos Pace MD Primary Care Provider Active Team Status: Inactive Member Role Status Dates Dr. Nicolasa Izquierdo DO Attending Provider, Emergency Pro vider Active Dr. Carlos Pace MD Primary Care Provider Active Team Status: Inactive Member Role Status Dates Dr. Carlos Pace MD Primary Care Provider Active Gabi Gottlieb MARKETING PROGRAM COORDINATOR, MARKETING PROGRAM COORDINATOR-C Attending Provider Active Team Status: Active Member Role Status Dates No Primary Care Physician Primary Care Provider Active Team Status: Inactive Member Role Status Dates Dr. Angel Jimenez DPM Attending Provider, Referring Provider Active No Primary Care Physician Primary Care Provider Active Team Status: Active Member Role Status Dates Dr. Tiara Jaimes MD Primary Care Provider Active Team Status: Inactive Member Role Status Dates Dr. Carlos Pace MD Referring Provider Active Dr. Tiara Jaimes MD Attending Provider Active No Primary Care Physician Primary Care Provider Active Team Status: Inactive Member Role Status Dates Dr. Lisbet Herrera DO Attending Provider, Re ferring Provider Active Dr. Carlos Pace MD Primary Care Provider Active Team Status: Active Member Role Status Dates Dr. Tiara Jaimes MD Primary Care Provider, Mirtha carpenetr Provider Active Team Status: Inactive Member Role Status Dates Dr. Tiara Jaimes MD Primary Care Provider, Mirtha carpenter Provider Active Source Comments (unrecognize d section and content) In the event this informatio n is protected by the [facility] Confidentiality of Alcohol and Drug Abuse Patient Records regulations: The Federal rules restrict any use of the information to criminally investigate or prosecute any alcohol or drug abuse patient.[facility] the event this information is protected by the Federal Confidentiality of Alcohol and Drug Abuse Patient Records regulations: The Federal rules restrict any use of the information to criminally investigate or prosecute any alcohol or drug abuse patient.[facility] the event this information is protected by the Federal Confidentiality of Alcohol and Drug Abuse Patient Records regulations: The Federal rules restrict any use of the information to criminally investigate or prosecute any alcohol or drug abuse patient.[facility] the event this information is protected by the Federal Confidentiality of Alcohol and Drug Abuse Patient Records regulations: The Federal rules restrict any use of the information to criminally investigate or prosecute any alcohol or drug abuse patient.[facility] the event this information is protected by the Federal Confidentiality of Alcohol and Drug Abuse Patient Records regulations: The Federal rules restrict any use of the information to criminally investigate or prosecute any alcohol or drug abuse patient.[facility] the event this information is protected by the Federal Confidentiality of Alcohol and Drug Abuse Patient Records regulations: The Federal rules restrict any use of the information to criminally investigate or prosecute any alcohol or drug abuse patient.[facility] FOR RECORDS PERTAINING TO PATIENTS WHO ARE OR HAVE BEEN ENROLLED IN A CHEMICAL DEPENDENCY/SUBSTANCEABUSE PROGRAM, SOME INFORMATION MAY BE OMITTED. This clinical summary was aggregated from multiple sources. Caution should be exercised in using it in the provision of clinical care. This summary normalizes information from multiple sources, and as a consequence, information in this document may materially change the coding, format and clinical context of patient data. In addition, data may be omitted in some cases. CLINICAL DECISIONS SHOULD BE BASED ON THE PRIMARY CLINICAL RECORDS. [facility]. provides no warranty or guarantee of the accuracy or completeness of information in this document.
[2025-03-02 14:23] LABS: Absolute Neutrophil Count 5.6 X10^3/uL (2.0-7.7); Basophil# 0.04 X10^3/uL; Basophil% 0.5 % (0-1); Eosinophil# 0.13 X10^3/uL; Eosinophils% 1.5 % (0-5); Hemoglobin 13.9 g/dL (12.0-15.0); Lymphocyte % 21.4 % (19-41); Mean Corp Hgb Conc 33.1 g/dL (32-36); Mean Corpuscular Hgb 31.7 pg (27.0-32.0); Mean Corpuscular Volume 95.9 fL (81-99); Mean Platelet Vol. 9.8 fl (6.2-12.0); Monocyte# 0.84 X10^3/uL; NRBC Flagged by Analyzer 0 % (0-5); Neutrophil # 5.56 X10^3/uL (2.7-7.7); Neutrophil % 66.2 % (47-70); Platelet Count 248 K/mm3 (150-450); RBC Distribution Width CV 12.7 % (11.6-14.6); RBC Distribution Width SD 44.8 fl (35.1-43.9); Red Blood Count 4.38 M/mm3 (4.2-5.4); White Blood Count 8.4 K/mm3 (4.4-11.0)
[2025-03-02 14:31] LABS: Prothrombin Time (Protime)PT. 13.8 SECONDS (11.7-14.9)
--- NOTE | 2025-03-02 14:38 | ED.RN ---
[facility] on phone with Dr Seymour
[2025-03-02 14:51] LABS: Anion Gap 11 (5-15); BUN 26 mg/dL (4-19); BUN/Creat Ratio 16.9 RATIO (10-20); Calcium,Total 9.1 mg/dL (7.6-11.0); Carbon Dioxide 26.9 mmol/L (21.0-32.0); Chloride 101 mmol/L (98-108); Creatinine, Serum 1.54 mg/dL (0.70-1.20); EST Glomerular Filtration Rate 38 (>60); Estimated Creatinine Clearance 42.59 ml/min (50-250); Glucose 149 mg/dL (70-99); Potassium 4.5 mmol/L (3.3-5.1); Sodium Level 139 mmol/L (133-145)
--- NOTE | 2025-03-02 15:04 | PCM.HP.STD ---
HPI - General HPI Narrative MARIA OTT, is a 64 F who presents [facility] Medical History Insomnia Right forearm pain Right wrist pain Health care maintenance Cellulitis of groin, left Intertriginous dermatitis associated with moisture Anxiety and depression Tremor Chronic renal failure, stage 3b Diabetes mellitus type 2 in obese Stage 3b chronic kidney disease (CKD) Effusion, left knee Osteoarthritis of left knee CVA (cerebral vascular accident) Finger lesion Chest pain CHF (congestive heart failure) Cardiomyopathy Obesity HLD (hyperlipidemia) Atrial fibrillation, new onset Menopausal and female climacteric states Migraine headache Atypical chest pain Hypertensive urgency Hypertension Type II diabetes mellitus Home Medications ?Medication ?Instructions ?Recorded ?Last Taken ?Type magnesium 250 mg tablet 250 mg PO BID supplement 05/09/23 Unknown History Handicap Placard #1 ea 10/21/23 Unknown Rx Oral Appliance #1 ea 11/21/23 Unknown Rx atorvastatin 40 mg tablet 40 mg PO QHS cholesterol #90 tabs 12/09/23 Unknown Rx bupropion HCl 150 mg 24 hr tablet, 150 mg PO QAM #30 tabs 05/18/24 Unknown Rx extended release pen needle, diabetic 32 gauge x #100 ea 06/04/24 Unknown Rx /32 (BD Ultra-Fine Tanja Pen Needle) acetaminophen 500 mg tablet 1,000 mg PO Q8 PRN Pain 06/11/24 Unknown History metoprolol succinate 50 mg 50 mg PO DAILY #90 TABLETS 06/11/24 Unknown Rx tablet,extended release 24 hr duloxetine 60 mg capsule,delayed 60 mg PO QHS mental health #90 caps 09/10/24 Unknown Rx release losartan 50 mg tablet 50 mg PO QDAY #90 tabs 10/24/24 Unknown Rx apixaban 5 mg tablet (Eliquis) 5 mg PO .COMPLEX Blood thinner 11/27/24 Unknown Rx #180 tabs flash glucose sensor (FreeStyle #6 ea 11/29/24 Unknown Rx Paulette 2 Sensor kit) cholecalciferol (vitamin D3) 50 50 mcg PO DAILY #90 caps 12/07/24 Unknown Rx mcg (2,000 unit) capsule liraglutide 0.6 mg/0.1 mL (18 mg/3 0.6 mg (0.1 mL) subcut QDAY #6 mL 12/11/24 Unknown Rx mL) subcutaneous pen injector (Victoza 2-Bird) amiodarone 200 mg tablet 200 mg PO DAILY #40 tabs 01/14/25 Unknown Rx insulin glargine 100 unit/mL (3 20 unit (0.2 mL) subcut QAM #6 mL 01/31/25 Unknown Rx mL) subcutaneous pen (Basaglar KwikPen U-100 Insulin) insulin lispro 100 unit/mL 12 unit (0.12 mL) subcut TID 01/31/25 Unknown Rx subcutaneous pen (Humalog KwikPen diabetes #15 mL (U-100) Insulin) trazodone 50 mg tablet 50 mg PO QHS PRN insomnia #60 tabs 01/31/25 Unknown Rx ferrous sulfate 325 mg (65 mg 325 mg PO DAILY@1200 Supplement 02/18/25 Unknown Rx iron) tablet (FeroSul) #90 tabs Allergy/AdvReac Type Severity Reaction Status Date / Time ampicillin Allergy Intermediate Hives Verified 03/02/25 13:47 levofloxacin (From Levaquin) Allergy Other Verified 03/02/25 13:47 Penicillins Allergy Hives Verified 03/02/25 13:47 lisinopril AdvReac Unknown Cough Verified 03/02/25 13:47 Family History Mother Diabetes Psoriatic arthritis Rheumatoid arthritis Father COPD (chronic obstructive pulmonary disease) With concurrent tobacco use history. Myocardial infarction Heart disease Hypertension Surgical History History of knee surgery History of foot surgery Social History adopted: No household members: spouse housing: house number of children: 0 current occupational status: employed current occupation: works at [employer] pets and animals: Yes (kittens, dogs, horses) Smoking Status: Never smoker alcohol intake: never substance use type: does not use caffeine: Yes (occasionally) Type: carbonated beverages and coffee Vital Signs Vital Signs Vital Signs: 03/02/25 13:52 03/02/25 13:55 03/02/25 13:56 Temperature 98.7 F Temperature Source Oral Pulse Rate 58 L 92 61 Respiratory Rate 18 18 16 Blood Pressure 161/76 H 161/76 H 160/69 H Blood Pressure Mean 104 104 99 Pulse Ox 95 96 98 Oxygen Delivery Method Room Air Room Air Room Air 03/02/25 14:01 03/02/25 14:26 03/02/25 14:30 Temperature Temperature Source Pulse Rate 59 L 59 L Respiratory Rate 18 17 Blood Pressure 155/64 H 143/50 H Blood Pressure Mean 94 81 Pulse Ox 96 100 Oxygen Delivery Method Room Air Room Air Room Air Weight Weight: 101.8 kg Body Mass Index (BMI) 39.7 Results Lab / Micro Data 03/02/25 14:07 03/02/25 14:07 Labs: Laboratory Results - last 24 hr 03/02/25 14:07: WBC 8.4, RBC 4.38, Hgb 13.9, Hct 42.0, MCV 95.9, MCH 31.7, MCHC 33.1, RDW Std Deviation 44.8 H, RDW Coeff of Patricia 12.7, Plt Count 248, MPV 9.8, Immature Gran % (Auto) 0.400, Neut % (Auto) 66.2, Lymph % (Auto) 21.4, Lucas % (Auto) 10.0, Eos % (Auto) 1.5, Baso % (Auto) 0.5, Absolute Neuts (auto) 5.6, Absolute Lymphs (auto) 1.80, Nucleated RBC % 0, PT 13.8, INR 1.0, APTT 33.0, Sodium 139, Potassium 4.5, Chloride 101, Carbon Dioxide 26.9, Anion Gap 11, BUN 26 H, Creatinine 1.54 H, Estim Creat Clear Calc 42.59 L, Est GFR (MDRD) Non-Af 38 L, BUN/Creatinine Ratio 16.9, Glucose 149 H, Calcium 9.1 Imaging Radiology Impression Brain CT 03/02/25 13:56 IMPRESSION: No acute large territorial infarction. Dr. Seymour was notified by Onel Roth at 2:29pm EST on 03/02/25 Reading Location: [facility] Head/Neck CTA 03/02/25 13:57 IMPRESSION: No acute large vessel occlusion or high-grade stenosis. Dr. Seymour was notified by Onel Roth at 2:29pm EST on 03/02/25 1.7 x 1.4 cm hypodense lesion within the right thyroid. 0.5 x 0.3 cm lesion within the left thyroid gland. Bilateral thyromegaly. Consider dedicated follow-up thyroid ultrasound under nonemergent outpatient basis. Reading Location: [id number]
[2025-03-02 15:16] LABS: Troponin T High Sensitivity 12 ng/L (<=14)
[2025-03-02 16:21] LABS: Hemoglobin A1c 6.9 % (<=5.6)
[2025-03-02 16:29] LABS: Thyroid Stim Hormone (TSH) 0.992 uIU/mL (0.300-4.200)
== END 2025-03-02 15:55 | disposition home or self-care (01) ==
PROVIDERS: Hospitalist; Emergency Provider Emergency Medicine; PCP Internal Medicine; Visit Provider Emergency Medicine
DX: G45.9 Transient cerebral ischemic attack, unspecified (principal); I13.0 Hypertensive heart and chronic kidney disease with heart failure and stage 1 through stage 4 chronic kidney disease, or unspecified chronic kidney disease; I50.9 Heart failure, unspecified; I48.91 Unspecified atrial fibrillation; E11.22 Type 2 diabetes mellitus with diabetic chronic kidney disease; Z79.4 Long term (current) use of insulin; N18.32 Chronic kidney disease, stage 3b; E01.0 Iodine-deficiency related diffuse (endemic) goiter; F41.9 Anxiety disorder, unspecified; F32.A Depression, unspecified; E78.5 Hyperlipidemia, unspecified; E66.9 Obesity, unspecified; Z79.01 Long term (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 of anticoagulants; Z86.73 Personal history of transient ischemic attack (TIA), and cerebral infarction without residual deficits; Z79.85 Long-term (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 of injectable non-insulin antidiabetic drugs; Z79.899 Other long term (current) drug therapy
CPT/HCPCS: 70450; 70496; 70498; 80048; 83036; 84443; 84484; 85025; 85610; 85730; 93005; 99285; Q9967; A4216